=== PATIENT | female | born 1935 | race Caucasian/White ===

== ENCOUNTER → 2016-12-20 | Outpatient (CLI) | payer MEDICARE ==
[~2016-12-20] VITALS: Ht 167.6 cm; Wt 63.5 kg
[~2016-12-20] MED LIST: AC325T PO; ACET-461 PO; ALBU0.8322 IH; ALBU2.5V52 INH; ALBU8.5H2 IH; ASP325T PO; ASP81TEC; ASP81TEC PO; ASPI-875 PO; AZTH250C PO; BENZ-13 PO; BENZ-23 PO; CARV12.53 PO; CARV25TA PO; CARV3.12 PO; CARV3.122; CARV6.252 PO; CATHETER FLUSH 10 ML SYR IV PRN; CEFD300C3 PO; CEFE2FRO IV; CEFP250T2 PO; CHOL10003 PO; CIPR500T78 PO; COUMADIN PO; DGX.125T; DIGO125T; DIGO125T PO; DILT240C PO; DLT240CCR; DOXY100C2 PO; DULO30CA; ENAL2.5T; ENAL5TAB PO; ENLP2.5T PO; FRSM20T PO; FURO20TA4; FURO20TA4 PO; FURO40TA4 PO; GUAI600T43 PO; HYDR-707 PO; IPRA3AMP11 INH; IPRA3AMP19 IH; ISOS30TA3 PO; KCL10CCR; KCL10CCR PO; LEVO100T46; LEVO100T46 PO; LEVO100T7 PO; LEVO500T69 PO; LEVO750P3 IV; LORA10CA PO; LORA10TA7 PO; LOSA25TA21 PO; LOSA25TA5 PO; Levofloxacin PO; MECL-106 PO; MECL25TA56 PO; MULT-1029 PO; MULT1TAB63; MUPI22OI2 TOP; NF-MEXI150 PO; NITR0.4T SL; NITR0.4T12 SL; NTR.4SL SL; OMEG-12 PO; OMEP20CA12; OMEP20CA12 PO; OMEP20CA6 PO; OMG1KC; OMG1KC PO; POTA10CA43 PO; POTA10TA10 PO; POTA20TA15 PO; PRD10T PO; PRD20T PO; Prednisone PO; REGADENOSON 0.4 MG/5 ML SYR (LEXISCAN) IV ONE; RLX60T; ROPI0.5T2 PO; SPIR25TA3 PO; SPRN25T PO; TEMA15CA54 PO; TROS60CA; WARF2TAB8 PO; WARF4TAB; WARF4TAB PO; WRF2T; WRF2T PO; WRF3T; ZOLP10TA5 PO; ZOLP5TAB6 PO; ZOLP5TAB7 PO
[2016-12-20 09:22] VITALS: BP 129/68
--- NOTE | 2016-12-21 08:52 | STRESS TEST ---
DATE OF SERVICE: LEXISCAN MYOVIEW STRESS TEST REPORT REFERRING PHYSICIAN: Dr. Jake Prabhakar. TEST DATE: 12/20/2016. INDICATION: Coronary artery disease, hypertension. Baseline heart rate is 80. Baseline blood pressure is 129/68. Baseline EKG is ventricular paced rhythm. SUMMARY: In summary, the patient was injected with 10.09 mCi of Technetium 99 Myoview and the resting images were obtained, and the patient received 0.4 mg of Lexiscan, followed by 32.1 mCi of Technetium 99 Myoview. Throughout the test there were no EKG changes. The resting stress and stress images were reviewed and compared, and the short axis, horizontal long axis and vertical long axis views revealed that the images showed breast attenuation with mild decrease uptake at the basal to mid anterior lateral wall and inferolateral wall. No significant ischemia was noted. SSS is 0, TID value is 0.98. On the gated images the left ventricle appeared to be dilated with end-diastolic volume of 136 milliliter and systolic volume 80 milliliter. Diffuse left ventricular hypokinesia, more pronounced at the septum and inferior wall calculated ejection fraction 41%. CONCLUSION: 1. The patient tolerated the Lexiscan scan well. 2. Baseline paced rhythm persisted throughout the test. 3. No significant ischemia or infarction. 4. Dilated left ventricle with diffuse left ventricular hypokinesia and calculated ejection fraction of 41%. Job ID: [id number] DocumentID: [id number] Dictated Date: 12/20/2016 14:48:21 Health Analytics Consultant Date: 12/20/2016 15:20:16 Dictated By: PRANEETH SHUKLA MD
== END ==
LOC: CARD 07:47
PROVIDERS: ATTEND Internal Medicine Cardiovascular Disease
DX: I25.10 Atherosclerotic heart disease of native coronary artery without angina pectoris (principal); I10 Essential (primary) hypertension; E78.2 Mixed hyperlipidemia; I48.0 Paroxysmal atrial fibrillation; I71.4 Abdominal aortic aneurysm, without rupture
CPT/HCPCS: 78452; 93017

== ENCOUNTER → 2016-12-22 | Outpatient (CLI) | payer MEDICARE ==
[~2016-12-22] MED LIST changes: -CATHETER FLUSH 10 ML SYR IV PRN; -REGADENOSON 0.4 MG/5 ML SYR (LEXISCAN) IV ONE
--- NOTE | 2016-12-27 08:35 | ECHOCARDIOGRAPHY REPORT ---
DATE OF SERVICE: 12/22/2016 REFERRING PHYSICIAN: Dr. Prabhakar TEST DATE: 12/22/2016 MEASUREMENT: LVID end diastolic 4.8, IVS thickness 1.2, LVPW thickness 1.2, left atrial diameter 6.0, ejection fraction 30-35%. FINDINGS: 1. Technical quality is suboptimum. 2. The left ventricle is dilated with diffuse left ventricular hypokinesia. Estimated ejection fraction 30-35%. 3. The left atrium is dilated. No clots or thrombus were seen within the left atrium. 4. The right atrium and right ventricle are prominent, no clots or thrombus were seen within the right side. 5. Mitral valve evaluation showed heavy calcification across the mitral leaflet which were stricture of the motion of the anterior leaflet which has been present on the previous studies, valve area calculated to be 1.0 sq cm with peak gradient of 17 mmHg, mean gradient of 7 mmHg with severe mitral regurgitation and moderate to severe mitral valve stenosis. 6. Aortic valve evaluation showed prosthetic valve in the aortic position. Doppler echo as the prosthetic valve showed peak gradient of 12 mmHg, mean gradient of 7 mmHg with calculated valve area of 2.0 sq cm. The valve appeared to be functioning normally with mild perivalvular aortic regurgitation. 7. Tricuspid valve is normal in morphology with moderate tricuspid regurgitation noted by color Doppler flow, Doppler echo of the tricuspid valve. Estimated pulmonary artery pressure of 36 plus right atrial pressure. 8. Pulmonic valve is functioning normally. CONCLUSION: 1. Dilated left ventricle with diffuse left ventricular hypokinesia. Estimated ejection fraction 30-35%. 2. Severely dilated left atrium with prominent right heart chambers. 3. Moderate to severe mitral valvular stenosis, moderate to severe mitral regurgitation, moderate tricuspid regurgitation. 4. Prosthetic valve in aortic position appeared to be functioning normally. 5. Estimated pulmonary artery pressure of 45 mmHg. Job ID: [id number] DocumentID: [id number] Dictated Date: 12/26/2016 14:58:31 Client Relationship Consultant Date: 12/27/2016 06:57:44 Dictated By: PRANEETH SHUKLA MD
== END ==
LOC: CARD 11:55
PROVIDERS: ATTEND Internal Medicine Cardiovascular Disease
DX: I25.10 Atherosclerotic heart disease of native coronary artery without angina pectoris (principal); I10 Essential (primary) hypertension; E78.2 Mixed hyperlipidemia; I48.0 Paroxysmal atrial fibrillation; I71.4 Abdominal aortic aneurysm, without rupture
CPT/HCPCS: 93306

== ENCOUNTER → 2017-04-05 | Outpatient (CLI) | payer MEDICARE ==
--- NOTE | 2017-04-05 10:35 | Diagnostic Imaging Report ---
CLINICAL INDICATION: Patient with right renal cyst. EXAM: Bilateral renal ultrasound. COMPARISON: Bilateral renal ultrasound dated 03/28/2016 and 02/08/2015. FINDINGS: There is a roughly 16 mm cystic area within the right renal hilum region which may represent a mildly prominent renal pelvis. This was not seen on the most recent comparison renal ultrasound, but was seen on the other renal ultrasound dated 02/08/2015. There are no definite renal cyst seen. Otherwise, both kidneys are normal in size, shape, echogenicity and cortical thickness without hydronephrosis, stones, or other focal lesions with the right and left kidneys measuring 10.1 cm and 10.7 cm in their craniocaudal dimensions, respectively. The bladder is fluid distended with no gross abnormalities visualized. Bilateral ureteral jets are seen. There is a small amount of abdominal ascites again seen. The liver surface appears lobulated which may be related to cirrhosis. IMPRESSION: 1: Suspected mildly prominent right renal pelvis compared to the prior study. There is no hydronephrosis. There is no definite renal cyst seen on this exam. 2: Both kidneys are otherwise unremarkable. 3: Bladder is unremarkable as visualized. 4: Abdominal ascites. 5: Lobulated liver contour which may be related to ascites. Dictated by: Dictated on workstation # [id number]
== END ==
LOC: RAD 08:59
PROVIDERS: ATTEND Urology
DX: R18.8 Other ascites (principal); Q44.7 Other congenital malformations of liver
CPT/HCPCS: 76770

== ENCOUNTER → 2017-04-12 | Outpatient (CLI) | payer MEDICARE ==
[~2017-04-12] MED LIST changes: +ACET-168 PO; +AMOX500C2 PO; +CLOP75TA28 PO; +CLOP75TA69 PO; +METO-370 PO; +SACU1TAB PO; +SULF1TAB35 PO; +TRAM50TA2 PO; +WARF-47 PO
== END ==
LOC: WOUNDCARE 08:48
PROVIDERS: ATTEND Internal Medicine
DX: I87.331 Chronic venous hypertension (idiopathic) with ulcer and inflammation of right lower extremity (principal); I70.233 Atherosclerosis of native arteries of right leg with ulceration of ankle; I70.202 Unspecified atherosclerosis of native arteries of extremities, left leg; I50.22 Chronic systolic (congestive) heart failure
CPT/HCPCS: 99214

== ENCOUNTER → 2017-04-19 | Outpatient (CLI) | payer MEDICARE ==
[~2017-04-19] MED LIST changes: -ACET-168 PO; -AMOX500C2 PO; -CLOP75TA28 PO; -CLOP75TA69 PO; -METO-370 PO; -SACU1TAB PO; -SULF1TAB35 PO; -TRAM50TA2 PO; -WARF-47 PO
== END ==
LOC: WOUNDCARE 13:50
PROVIDERS: ATTEND Nurse Practitioner
DX: I87.331 Chronic venous hypertension (idiopathic) with ulcer and inflammation of right lower extremity (principal); L97.212 Non-pressure chronic ulcer of right calf with fat layer exposed; L97.312 Non-pressure chronic ulcer of right ankle with fat layer exposed; I70.233 Atherosclerosis of native arteries of right leg with ulceration of ankle; I70.202 Unspecified atherosclerosis of native arteries of extremities, left leg; I50.22 Chronic systolic (congestive) heart failure
CPT/HCPCS: 11042; 87070; 87075; 87205

== ENCOUNTER → 2017-04-24 | Outpatient (CLI) | payer MEDICARE ==
[~2017-04-24] MED LIST changes: +ACET-168 PO; +AMOX500C2 PO; +CLOP75TA28 PO; +CLOP75TA69 PO; +METO-370 PO; +PANT40TA3 PO; +POTA10CA68 PO; +SACU1TAB PO; +SULF1TAB35 PO; +TRAM50TA2 PO; +WARF-47 PO
== END ==
LOC: WOUNDCARE 09:48
PROVIDERS: ATTEND Nurse Practitioner
DX: L97.212 Non-pressure chronic ulcer of right calf with fat layer exposed (principal); L97.312 Non-pressure chronic ulcer of right ankle with fat layer exposed; I50.22 Chronic systolic (congestive) heart failure; I70.202 Unspecified atherosclerosis of native arteries of extremities, left leg; I70.233 Atherosclerosis of native arteries of right leg with ulceration of ankle; I87.331 Chronic venous hypertension (idiopathic) with ulcer and inflammation of right lower extremity
CPT/HCPCS: 11042

== ENCOUNTER → 2017-05-03 | Outpatient (CLI) | payer MEDICARE ==
[~2017-05-03] MED LIST changes: -ACET-168 PO; -AMOX500C2 PO; -CLOP75TA28 PO; -CLOP75TA69 PO; -METO-370 PO; -PANT40TA3 PO; -POTA10CA68 PO; -SACU1TAB PO; -SULF1TAB35 PO; -TRAM50TA2 PO; -WARF-47 PO
== END ==
LOC: WOUNDCARE 10:10
PROVIDERS: ATTEND Internal Medicine
DX: L97.212 Non-pressure chronic ulcer of right calf with fat layer exposed (principal); L97.312 Non-pressure chronic ulcer of right ankle with fat layer exposed; I50.22 Chronic systolic (congestive) heart failure; I70.202 Unspecified atherosclerosis of native arteries of extremities, left leg; I70.233 Atherosclerosis of native arteries of right leg with ulceration of ankle; I87.331 Chronic venous hypertension (idiopathic) with ulcer and inflammation of right lower extremity
CPT/HCPCS: 11042

== ENCOUNTER → 2017-05-10 | Outpatient (CLI) | payer MEDICARE ==
[2017-05-10 13:01] LABS: BASOPHILS % (AUTO) 1 % (0-10); EOSINOPHILS # (AUTO) 0.2 10^3/uL (0.0-0.3); EOSINOPHILS % (AUTO) 4 % (0-10); LYMPHOCYTES # (AUTO) 1.3 X 10^3 (1.0-4.0); LYMPHOCYTES % (AUTO) 23 % (12-44); MEAN CORPUSCULAR HEMOGLOBIN 29 PG (25-34); MEAN CORPUSCULAR HGB CONC 30 G/DL (32-36); MEAN CORPUSCULAR VOLUME 96 FL (80-99); MEAN PLATELET VOLUME 10.2 FL (7.4-10.4); MONOCYTES # (AUTO) 0.5 X 10^3 (0.0-1.0); MONOCYTES % (AUTO) 8 % (0-12); NEUTROPHILS # (AUTO) 3.5 X 10^3 (1.8-7.8); NEUTROPHILS % (AUTO) 64 % (42-75); PLATELET COUNT 178 10^3/uL (130-400); RED BLOOD COUNT 3.53 10^6/uL (4.35-5.85); RED CELL DISTRIBUTION WIDTH 15.9 % (10.0-14.5); WHITE BLOOD COUNT 5.5 10^3/uL (4.3-11.0)
--- NOTE | 2017-05-10 13:06 | Diagnostic Imaging Report ---
INDICATION: Ulcerative sore on medial ankle. TECHNIQUE: Three views of the right ankle were obtained. FINDINGS: The alignment is normal. The plafonds and talar dome are intact. The ankle mortise is symmetric. There is no fracture or dislocation. There is no radiographic evidence of osteomyelitis. The soft tissues are grossly unremarkable. IMPRESSION: Osteopenia and mild degenerative change without radiographic evidence of osteomyelitis. If there is any clinical concern for osteomyelitis, further evaluation with a gadolinium enhanced MRI should be considered. Dictated by: Dictated on workstation # [id number]
[2017-05-10 13:34] LABS: ERYTHROCYTE SEDIMENTATION RATE 18 MM/HR (0-30)
== END ==
LOC: WOUNDCARE 10:58
PROVIDERS: ATTEND Internal Medicine
DX: L97.212 Non-pressure chronic ulcer of right calf with fat layer exposed (principal); I87.331 Chronic venous hypertension (idiopathic) with ulcer and inflammation of right lower extremity; I70.233 Atherosclerosis of native arteries of right leg with ulceration of ankle; I70.202 Unspecified atherosclerosis of native arteries of extremities, left leg; I50.22 Chronic systolic (congestive) heart failure; L97.312 Non-pressure chronic ulcer of right ankle with fat layer exposed
CPT/HCPCS: 11042; 36415; 73610; 85025; 85652; 87070; 87075; 87077; 87101; 87205

== ENCOUNTER → 2017-05-17 | Outpatient (CLI) | payer MEDICARE | LOC: WOUNDCARE 08:16 | PROVIDERS: ATTEND Internal Medicine | DX: L97.212 Non-pressure chronic ulcer of right calf with fat layer exposed (principal); L97.312 Non-pressure chronic ulcer of right ankle with fat layer exposed; I50.22 Chronic systolic (congestive) heart failure; I70.202 Unspecified atherosclerosis of native arteries of extremities, left leg; I70.233 Atherosclerosis of native arteries of right leg with ulceration of ankle; I87.331 Chronic venous hypertension (idiopathic) with ulcer and inflammation of right lower extremity | CPT/HCPCS: 11042 ==

== ENCOUNTER → 2017-05-24 | Outpatient (CLI) | payer MEDICARE ==
[~2017-05-24] MED LIST changes: +ACET-168 PO; +AMOX500C2 PO; +CLOP75TA28 PO; +CLOP75TA69 PO; +METO-370 PO; +PANT40TA3 PO; +POTA10CA68 PO; +SACU1TAB PO; +SULF1TAB35 PO; +TRAM50TA2 PO; +WARF-47 PO
== END ==
LOC: WOUNDCARE 08:25
PROVIDERS: ATTEND Internal Medicine
DX: L97.212 Non-pressure chronic ulcer of right calf with fat layer exposed (principal); L97.312 Non-pressure chronic ulcer of right ankle with fat layer exposed; I87.331 Chronic venous hypertension (idiopathic) with ulcer and inflammation of right lower extremity; I70.233 Atherosclerosis of native arteries of right leg with ulceration of ankle; I70.202 Unspecified atherosclerosis of native arteries of extremities, left leg; I50.22 Chronic systolic (congestive) heart failure
CPT/HCPCS: 11042

== ENCOUNTER 2017-05-31 13:05 | Day surgery (SDC) | payer MEDICARE ==
[~2017-05-31] VITALS: Ht 165.1 cm; Wt 63.5 kg
[2017-05-31] VITALS (28 sets, daily range): BP systolic 87–131; BP diastolic 48–77
[~2017-05-31 13:05] MED LIST changes: -ACET-168 PO; -AMOX500C2 PO; -CLOP75TA28 PO; -CLOP75TA69 PO; -METO-272 PO; -SACU1TAB PO; -SULF1TAB35 PO; -TRAM50TA2 PO; -WARF-47 PO
[2017-05-31] MEDS ORDERED: NS IV 1000 ML 1,000 ML ONE ×2 (13:07→15:28)
[2017-05-31] MEDS ORDERED: HEParin (CATH LAB) 2,000 ML IV ONE (13:07)
[2017-05-31] MEDS: NS IV 1000 ML 1,000 ML IV SCH ×4 (13:35→23:30)
[2017-05-31 13:40] LABS: MEAN PLATELET VOLUME 10.7 FL (7.4-10.4); RED BLOOD COUNT 3.66 10^6/uL (4.35-5.85); RED CELL DISTRIBUTION WIDTH 17.1 % (10.0-14.5); WHITE BLOOD COUNT 6.7 10^3/uL (4.3-11.0)
[2017-05-31 13:43] LABS: BILIRUBIN,URINE NEGATIVE (NEGATIVE); KETONES,URINE NEGATIVE (NEGATIVE); LEUKOCYTE ESTERASE ,URINE 1+ (NEGATIVE); NITRITE,URINE NEGATIVE (NEGATIVE); PH,URINE 6.5 (5-9); PROTEIN,URINE 1+ (NEGATIVE); UROBILINOGEN,URINE NORMAL (NORMAL)
[2017-05-31 13:52] LABS: INR 1.7 (0.8-1.4); PROTHROMBIN TIME PATIENT 20.1 SEC (12.2-14.7)
[2017-05-31 14:03] LABS: ALBUMIN 4.2 GM/DL (3.2-4.5); BILIRUBIN,TOTAL 0.9 MG/DL (0.1-1.0); CALCIUM 9.7 MG/DL (8.5-10.1); CREATININE SERUM 1.93 MG/DL (0.60-1.30); POTASSIUM 5.5 MMOL/L (3.6-5.0); TOTAL PROTEIN 8.5 GM/DL (6.4-8.2)
[2017-05-31] MEDS ORDERED: ACET-168 PO (14:15)
[2017-05-31] MEDS ORDERED: ROPI0.5T2 PO (14:15)
[2017-05-31] MEDS ORDERED: GUAI600T43 PO (14:15)
[2017-05-31] MEDS ORDERED: ISOS30TA3 PO (14:15)
[2017-05-31] MEDS ORDERED: METO-272 PO (14:15)
[2017-05-31] MEDS ORDERED: LORA10TA7 PO (14:15)
[2017-05-31] MEDS ORDERED: FURO40TA4 PO (14:15)
[2017-05-31] MEDS ORDERED: SACU1TAB PO (14:15)
[2017-05-31] MEDS ORDERED: WARF-47 PO (14:15)
[2017-05-31] MEDS ORDERED: AMOX500C2 PO (14:28)
[2017-05-31] MEDS ORDERED: TRAM50TA2 PO (14:28)
[2017-05-31] MEDS ORDERED: SULF1TAB35 PO (14:28)
[2017-05-31 14:36] LABS: SQUAMOUS EPITHELIAL CELL,UR 0-2 /HPF; WBC,URINE 0-2 /HPF
[2017-05-31] MEDS ORDERED: fentaNYL INJECTION 100 MCG/2 ML AMP ONE ×2 (14:57→20:17)
[2017-05-31] MEDS ORDERED: MIDAZOLAM 5 MG/5 ML (VERSED) VIAL ONE (14:58)
[2017-05-31] MEDS ORDERED: HEParin 1000 UNIT/ML (10ML VIAL) FOR BOLUS ONE (14:58)
[2017-05-31] MEDS ORDERED: NITROGLYCERIN DRIP 25 MG/D5W 250 ML IV ONE (14:58)
[2017-05-31] MEDS ORDERED: ASPIRIN 325 MG (5 GR) TABLET ONE (16:26)
[2017-05-31] MEDS ORDERED: CLOPIDOGREL 300 MG (PLAVIX) TABLET PO ONE (16:26)
[2017-05-31] MEDS ORDERED: PATIENT MAY USE OWN MEDS, ALL PO SCH (16:45)
[2017-05-31] MEDS ORDERED: MECLIZINE 25 MG (ANTIVERT) TAB PO PRN (16:45)
[2017-05-31] MEDS ORDERED: ACETAMINOPHEN 500 MG TAB (TYLENOL) PO PRN (16:45)
[2017-05-31] MEDS ORDERED: guaiFENesin (MUCINEX) 600 MG TAB PO PRN (16:45)
[2017-05-31] MEDS ORDERED: warFARin 2 MG (COUMADIN) TAB PO SCH (18:30)
[2017-05-31] MEDS ORDERED: FUROSEMIDE 40 MG (LASIX) TAB PO SCH (18:30)
[2017-05-31] MEDS ORDERED: ATROPINE INJECTION 1 MG/10 ML SYR (ABBOTT) ONE (20:10)
[2017-05-31] MEDS ORDERED: fentaNYL INJECTION 100 MCG/2 ML AMP IVP PRN (20:30)
[2017-05-31] MEDS ORDERED: ROPINIROLE 0.5 MG PO SCH (21:00)
[2017-05-31] MEDS ORDERED: NON-FORMULARY MEDICATION 1 EA EA (Ropinirole HCl 0.5 MG) PO SCH (21:00)
[2017-05-31] MEDS ORDERED: KLOR CON 10 MEQ PO SCH (21:00)
[2017-05-31] MEDS ORDERED: CLOP75TA28 PO (22:03)
[2017-05-31] MEDS: MEXILETINE 150 MG CAPSULE PO SCH (22:31)
[2017-05-31] MEDS: FUROSEMIDE 40 MG (LASIX) TAB PO SCH (22:32)
[2017-05-31] MEDS: AMOXICILLIN 500 MG (POLYMOX) CAP PO SCH (22:33)
[2017-05-31] MEDS: SACUBITRIL/VALSARTAN 24/26 MG (ENTRESTO) TABLET PO SCH (22:34)
[2017-06-01] VITALS (7 sets, daily range): BP systolic 96–104; BP diastolic 50–61
[2017-06-01 03:42] LABS: MEAN PLATELET VOLUME 10.2 FL (7.4-10.4); RED BLOOD COUNT 3.01 10^6/uL (4.35-5.85)
[2017-06-01 04:04] LABS: CALCIUM 8.5 MG/DL (8.5-10.1); CREATININE SERUM 1.35 MG/DL (0.60-1.30); POTASSIUM 4.7 MMOL/L (3.6-5.0)
[2017-06-01] MEDS: FUROSEMIDE 40 MG (LASIX) TAB PO SCH (06:24)
[2017-06-01] MEDS ORDERED: LEVOTHYROXINE 100 MCG (LEVOTHROID) TAB PO SCH (06:30)
[2017-06-01] MEDS ORDERED: TRIM/SULFAMETH 160/800 (SEPTRA DS) TAB PO SCH (07:00)
[2017-06-01] MEDS ORDERED: OMEPRAZOLE 20 MG (PriLOSEC) CAP NON-FORMULARY PO SCH (07:00)
[2017-06-01] MEDS ORDERED: FUROSEMIDE 40 MG/4 ML INJ (LASIX) IVP NR (07:45)
[2017-06-01] MEDS ORDERED: POTA10CA43 PO (07:47)
[2017-06-01] MEDS ORDERED: CLOP75TA69 PO (07:47)
[2017-06-01] MEDS: MEXILETINE 150 MG CAPSULE PO SCH (08:18)
[2017-06-01] MEDS: SACUBITRIL/VALSARTAN 24/26 MG (ENTRESTO) TABLET PO SCH (08:20)
[2017-06-01] MEDS: AMOXICILLIN 500 MG (POLYMOX) CAP PO SCH (08:22)
[2017-06-01] MEDS ORDERED: DIGOXIN 0.125 MG (LANOXIN) TAB PO SCH (09:00)
[2017-06-01] MEDS ORDERED: ASPIRIN E.C. 81 MG (ECOTRIN) TAB PO SCH (09:00)
[2017-06-01] MEDS ORDERED: LORATADINE (CLARITIN) 10 MG TAB PO SCH (09:00)
[2017-06-01] MEDS ORDERED: ISOSORBIDE MONONITRATE 30 MG (IMDUR) TAB PO SCH (09:00)
[2017-06-01] MEDS ORDERED: SPIRONOLACTONE 25 MG (ALDACTONE) TAB PO SCH (09:00)
[2017-06-01] MEDS ORDERED: meTOproloL SUCCINATE 50 MG (TOPROL XL) TAB PO SCH (09:00)
[2017-06-01] MEDS ORDERED: CLOPIDOGREL 75 MG (PLAVIX) TABLET PO SCH (09:00)
[2017-06-01] MEDS ORDERED: warFARin 2 MG (COUMADIN) TAB PO SCH (18:00)
[2017-06-03] MEDS ORDERED: INFLUENZA TRIvalent 2017-2018 0.5 ML/45 MCG SYR IM ONE (07:00)
== END 2017-06-01 09:00 | disposition home or self-care (01) ==
LOC: CATH 13:05 → ICU 17:00 → CATH 06-01 09:00
PROVIDERS: ATTEND Internal Medicine Cardiovascular Disease
DX: I70.203 Unspecified atherosclerosis of native arteries of extremities, bilateral legs (principal); L97.519 Non-pressure chronic ulcer of other part of right foot with unspecified severity; I70.92 Chronic total occlusion of artery of the extremities; I25.10 Atherosclerotic heart disease of native coronary artery without angina pectoris; I50.22 Chronic systolic (congestive) heart failure; I25.5 Ischemic cardiomyopathy; I71.4 Abdominal aortic aneurysm, without rupture; I49.5 Sick sinus syndrome; I48.0 Paroxysmal atrial fibrillation; Z95.2 Presence of prosthetic heart valve; I05.0 Rheumatic mitral stenosis; E78.5 Hyperlipidemia, unspecified; Z79.899 Other long term (current) drug therapy; Z79.01 Long term (current) use of anticoagulants
CPT/HCPCS: 36247; 36415; 37228; 71010; 75625; 75716; 75774; 80048; 80053; 80061; 81000; 85027; 85347; 85610; 85730; 87081; 93005

== ENCOUNTER → 2017-05-31 | Outpatient (CLI) | payer MEDICARE ==
[~2017-05-31] MED LIST changes: +METO-272 PO; -METO-370 PO; -PANT40TA3 PO; -POTA10CA68 PO
== END ==
LOC: WOUNDCARE 08:19
PROVIDERS: ATTEND Internal Medicine
DX: I87.331 Chronic venous hypertension (idiopathic) with ulcer and inflammation of right lower extremity (principal); L97.212 Non-pressure chronic ulcer of right calf with fat layer exposed; I70.233 Atherosclerosis of native arteries of right leg with ulceration of ankle; L97.312 Non-pressure chronic ulcer of right ankle with fat layer exposed; I70.202 Unspecified atherosclerosis of native arteries of extremities, left leg; I50.22 Chronic systolic (congestive) heart failure
CPT/HCPCS: 11042

== ENCOUNTER → 2017-06-07 | Outpatient (CLI) | payer MEDICARE ==
[~2017-06-07] MED LIST changes: +ACET-168 PO; +AMOX500C2 PO; +CLOP75TA28 PO; +CLOP75TA69 PO; +METO-272 PO; +SACU1TAB PO; +SULF1TAB35 PO; +TRAM50TA2 PO; +WARF-47 PO
== END ==
LOC: WOUNDCARE 08:26
PROVIDERS: ATTEND Internal Medicine
DX: L97.212 Non-pressure chronic ulcer of right calf with fat layer exposed (principal); I87.331 Chronic venous hypertension (idiopathic) with ulcer and inflammation of right lower extremity; I70.233 Atherosclerosis of native arteries of right leg with ulceration of ankle; I70.202 Unspecified atherosclerosis of native arteries of extremities, left leg; I50.22 Chronic systolic (congestive) heart failure; L97.312 Non-pressure chronic ulcer of right ankle with fat layer exposed
CPT/HCPCS: 11042

== ENCOUNTER → 2017-06-14 | Outpatient (CLI) | payer MEDICARE | LOC: WOUNDCARE 08:30 | PROVIDERS: ATTEND Internal Medicine | DX: L97.212 Non-pressure chronic ulcer of right calf with fat layer exposed (principal); I87.331 Chronic venous hypertension (idiopathic) with ulcer and inflammation of right lower extremity; I70.233 Atherosclerosis of native arteries of right leg with ulceration of ankle; I70.202 Unspecified atherosclerosis of native arteries of extremities, left leg; I50.22 Chronic systolic (congestive) heart failure; L97.312 Non-pressure chronic ulcer of right ankle with fat layer exposed | CPT/HCPCS: 11042 ==

== ENCOUNTER → 2017-06-21 | Outpatient (CLI) | payer MEDICARE | LOC: WOUNDCARE 08:30 | PROVIDERS: ATTEND Internal Medicine | DX: L97.212 Non-pressure chronic ulcer of right calf with fat layer exposed (principal); I87.331 Chronic venous hypertension (idiopathic) with ulcer and inflammation of right lower extremity; I70.233 Atherosclerosis of native arteries of right leg with ulceration of ankle; I70.202 Unspecified atherosclerosis of native arteries of extremities, left leg; I50.22 Chronic systolic (congestive) heart failure; L97.312 Non-pressure chronic ulcer of right ankle with fat layer exposed | CPT/HCPCS: 11042 ==

== ENCOUNTER → 2017-06-28 | Outpatient (CLI) | payer MEDICARE | LOC: WOUNDCARE 08:09 | PROVIDERS: ATTEND Internal Medicine | DX: L97.212 Non-pressure chronic ulcer of right calf with fat layer exposed (principal); L97.312 Non-pressure chronic ulcer of right ankle with fat layer exposed; I87.331 Chronic venous hypertension (idiopathic) with ulcer and inflammation of right lower extremity; I70.233 Atherosclerosis of native arteries of right leg with ulceration of ankle; I70.202 Unspecified atherosclerosis of native arteries of extremities, left leg; I50.22 Chronic systolic (congestive) heart failure | CPT/HCPCS: 11042 ==

== ENCOUNTER → 2017-07-05 | Outpatient (CLI) | payer MEDICARE | LOC: WOUNDCARE 08:26 | PROVIDERS: ATTEND Internal Medicine | DX: L97.212 Non-pressure chronic ulcer of right calf with fat layer exposed (principal); L97.312 Non-pressure chronic ulcer of right ankle with fat layer exposed; I87.331 Chronic venous hypertension (idiopathic) with ulcer and inflammation of right lower extremity; I70.233 Atherosclerosis of native arteries of right leg with ulceration of ankle; I70.202 Unspecified atherosclerosis of native arteries of extremities, left leg; I50.22 Chronic systolic (congestive) heart failure | CPT/HCPCS: 11042; 87070; 87075; 87101; 87205 ==

== ENCOUNTER → 2017-07-19 | Outpatient (CLI) | payer MEDICARE ==
[~2017-07-19] MED LIST changes: -METO-272 PO; +METO-370 PO
== END ==
LOC: WOUNDCARE 08:27
PROVIDERS: ATTEND Internal Medicine
DX: L97.212 Non-pressure chronic ulcer of right calf with fat layer exposed (principal); L97.312 Non-pressure chronic ulcer of right ankle with fat layer exposed; I50.22 Chronic systolic (congestive) heart failure; I70.202 Unspecified atherosclerosis of native arteries of extremities, left leg; I70.233 Atherosclerosis of native arteries of right leg with ulceration of ankle; I87.331 Chronic venous hypertension (idiopathic) with ulcer and inflammation of right lower extremity
CPT/HCPCS: 11042; 15271

== ENCOUNTER → 2017-07-25 | Outpatient (CLI) | payer MEDICARE | LOC: WOUNDCARE 08:47 | PROVIDERS: ATTEND Surgery | DX: I87.331 Chronic venous hypertension (idiopathic) with ulcer and inflammation of right lower extremity (principal); I70.233 Atherosclerosis of native arteries of right leg with ulceration of ankle; I70.202 Unspecified atherosclerosis of native arteries of extremities, left leg; L97.212 Non-pressure chronic ulcer of right calf with fat layer exposed; L97.312 Non-pressure chronic ulcer of right ankle with fat layer exposed; I50.22 Chronic systolic (congestive) heart failure | CPT/HCPCS: 15271 ==

== ENCOUNTER → 2017-07-25 | Outpatient (CLI) | payer MEDICARE ==
[2017-07-25 10:26] LABS: BASOPHILS # (AUTO) 0.1 10^3/uL (0.0-0.1); BASOPHILS % (AUTO) 2 % (0-10); EOSINOPHILS # (AUTO) 0.2 10^3/uL (0.0-0.3); EOSINOPHILS % (AUTO) 3 % (0-10); LYMPHOCYTES # (AUTO) 1.1 X 10^3 (1.0-4.0); LYMPHOCYTES % (AUTO) 24 % (12-44); MEAN CORPUSCULAR HEMOGLOBIN 31 PG (25-34); MEAN CORPUSCULAR HGB CONC 31 G/DL (32-36); MEAN CORPUSCULAR VOLUME 101 FL (80-99); MONOCYTES # (AUTO) 0.3 X 10^3 (0.0-1.0); MONOCYTES % (AUTO) 6 % (0-12); NEUTROPHILS # (AUTO) 3.1 X 10^3 (1.8-7.8); NEUTROPHILS % (AUTO) 66 % (42-75); PLATELET COUNT 144 10^3/uL (130-400); RED BLOOD COUNT 3.12 10^6/uL (4.35-5.85); RED CELL DISTRIBUTION WIDTH 15.5 % (10.0-14.5); WHITE BLOOD COUNT 4.7 10^3/uL (4.3-11.0)
== END ==
LOC: LAB 10:11
PROVIDERS: ATTEND Surgery
DX: I87.331 Chronic venous hypertension (idiopathic) with ulcer and inflammation of right lower extremity (principal); I70.233 Atherosclerosis of native arteries of right leg with ulceration of ankle; I70.202 Unspecified atherosclerosis of native arteries of extremities, left leg; I50.22 Chronic systolic (congestive) heart failure; L97.212 Non-pressure chronic ulcer of right calf with fat layer exposed; L97.312 Non-pressure chronic ulcer of right ankle with fat layer exposed
CPT/HCPCS: 36415; 85025

== ENCOUNTER → 2017-08-02 | Outpatient (CLI) | payer MEDICARE ==
[~2017-08-02] MED LIST changes: +PANT40TA3 PO; +POTA10CA68 PO
== END ==
LOC: WOUNDCARE 08:24
PROVIDERS: ATTEND Internal Medicine
DX: I87.331 Chronic venous hypertension (idiopathic) with ulcer and inflammation of right lower extremity (principal); I70.233 Atherosclerosis of native arteries of right leg with ulceration of ankle; I70.202 Unspecified atherosclerosis of native arteries of extremities, left leg; I50.22 Chronic systolic (congestive) heart failure; L97.212 Non-pressure chronic ulcer of right calf with fat layer exposed; L97.312 Non-pressure chronic ulcer of right ankle with fat layer exposed
CPT/HCPCS: 15271

== ENCOUNTER 2017-08-03 09:30 | Inpatient (IN) | payer MEDICARE ==
[~2017-08-03] VITALS: Ht 167.6 cm; Wt 62.1 kg
[~2017-08-03 09:30] MED LIST changes: -PANT40TA3 PO; -POTA10CA68 PO
--- OUTSIDE RECORDS SUMMARY | 2017-08-03 09:35 | XMS REPORT | Clinical Summary ---
Author Author [facility] Organization [facility] Address Unknown Phone Unavailable Care Team Providers Care Stogy Maker Name Role Phone PCP Unavailable Source Comments Some departments are not documenting in the electronic medical record. If you do not see the information that you expected, contact Release of Information in the Health Information Management department at [phone] for further assistance in locating additional records.[facility] Allergies No Known Allergies Current Medications Prescription Sig. Disp. Refills Start End Date Status Date spironolactone Take 25 mg by mouth Active (ALDACTONE) 25 mg tablet daily. omeprazole DR(+) Take 20 mg by mouth Active (PRILOSEC) 20 mg capsule daily. levothyroxine (SYNTHROID) Take 100 mcg by mouth Active 100 mcg tablet daily. warfarin (COUMADIN) 2 mg Take 4 mg by mouth daily. Active tablet Or as directed per your physician meclizine (ANTIVERT) 25 Take 25 mg by mouth every Active mg tablet 8 hours as needed. For vertigo nitroglycerin (NITROSTAT) Place 0.4 mg under tongue Active 0.4 mg tablet every 5 minutes as needed. digoxin (LANOXIN) 125 mcg Take 1 Tab by mouth 30 Tab 11 11/06/19 Active tabletIndications: daily. 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 loratadine (CLARITIN) 10 Take 10 mg by mouth Active mg tablet daily. losartan (COZAAR) 25 mg Take 25 mg by mouth Active tablet daily. potassium chloride SR Take 1 Tab by mouth twice 90 Cap 0 09/29/19 Active (K-DUR) 10 mEq tablet daily. 15 furosemide (LASIX) 20 mg Take 1 Tab by mouth twice 90 Tab 0 09/29/19 Active tablet daily. 15 mexiletine (MEXITIL) 150 TAKE 1 CAPSULE BY MOUTH 60 Cap 1 07/28/20 Active mg capsule TWICE DAILY. 15 isosorbide mononitrate SR Take 15 mg by mouth every Active (IMDUR) 30 mg tablet morning. Active Problems Problem Noted Date ERRONEOUS ENCOUNTER--DISREGARD 09/01/2015 PVC's (premature ventricular contractions) 12/15/2013 Overview: 12/15/2013 - PVC burden approx 8%. Started on mexiletine 150 mg twice daily. Last Assessment & Plan: She is not optimally Bi-V pacing due to frequent PVCs (approximately 8%). This could be contributing to her worsening symptoms. She was started on mexiletine 150 mg twice daily to see if this helps improve her symptoms. Mitral valve regurgitation 12/15/2013 Overview: 11/17/13 - flow velocity across the mitral valve is 2.25 m/sec the mean gradient 6.7 mmHg. Calculated valve area is 1.3 sq cm 01/27/14 Echo: EF 40%. Moderately dilated LV. Severely dilated LA and moderately dilated RA. Normally functioning mechanical AV prosthesis, Mild AI. Moderate to severe mitral regurgitation. Mild mitral stenosis. Severe tricuspid regurgitation. PAP=65 mmHg. Last Assessment & Plan: Given that she has been feeling better off lasix and has not needed it, unlikely that her valve is significantly worse than a year ago and the cause of her worsening symptoms of shortness of breath with activity. However, we have asked her to follow up in the [facility] for further evaluation in approximately a month. We would like to see if she has symptom improvement with suppression of her PVCs and increased bi-v pacing. 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 Severe MR & TR PAP 55 (42 a year earlier, EF 35, MR and TR mod-severe). AVR "OK" Chronic systolic CHF (congestive heart failure), NYHA class 3 ([facility]) 2011 Last Assessment & Plan: Echo in November demonstrated EF of 40-45% which has improved from prior to her device upgrade when her EF was 30%. On exam, fluid status appears stable and she denies any new or worsening symptoms suggestive of volume overload. Heart failure medications were reviewed. She is on good medical therapy. 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 Overall well rate controlled. Biventricular ICD (implantable cardioverter-defibrillator) in place 2011 Overview: MDT DC PPM- L side 200408/07/12 [employer]-D upgrade implant + DFTs with Dr. Ceja. L ast Assessment & Plan: Device was checked today and demonstrated normal function. See device check and cardiovascular studies for further details. 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 Pulse 87 09/29/2014 11:26 AM TRUCK ENGINE TECHNICIAN Temperature 36.6 C (97.9 F) 08/09/2012 11:25 AM TRUCK ENGINE TECHNICIAN Respiratory Rate - - Oxygen Saturation 93% 09/29/2014 11:26 AM TRUCK ENGINE TECHNICIAN Inhaled Oxygen - - Concentration Weight 58.1 kg (128 lb) 08/31/2015 12:58 PM TRUCK ENGINE TECHNICIAN Height 167.6 cm (5' 6") 08/31/2015 12:58 PM TRUCK ENGINE TECHNICIAN Body Mass Index 20.66 08/31/2015 12:58 PM TRUCK ENGINE TECHNICIAN Plan of Treatment Health Maintenance Due Date Last Done Comments PHYSICAL (COMPREHENSIVE) 1944 EXAM PERTUSSIS VACCINE 1948 TETANUS VACCINE 1954 SHINGLES VACCINE 1997 OSTEOPOROSIS SCREENING 2002 PREVNAR/PNEUMOVAX (#1) 2002 INFLUENZA VACCINE 04/03/2017 Results Not on filefrom Last 3 Months
[2017-08-03 10:01] LABS: BASOPHILS % (AUTO) 0 % (0-10); EOSINOPHILS # (AUTO) 0.2 10^3/uL (0.0-0.3); EOSINOPHILS % (AUTO) 2 % (0-10); LYMPHOCYTES # (AUTO) 1.1 X 10^3 (1.0-4.0); LYMPHOCYTES % (AUTO) 15 % (12-44); MEAN CORPUSCULAR HEMOGLOBIN 31 PG (25-34); MEAN CORPUSCULAR HGB CONC 31 G/DL (32-36); MEAN CORPUSCULAR VOLUME 101 FL (80-99); MEAN PLATELET VOLUME 11.5 FL (7.4-10.4); MONOCYTES # (AUTO) 1.2 X 10^3 (0.0-1.0); MONOCYTES % (AUTO) 16 % (0-12); NEUTROPHILS % (AUTO) 67 % (42-75); PLATELET COUNT 84 10^3/uL (130-400); RED BLOOD COUNT 2.77 10^6/uL (4.35-5.85); RED CELL DISTRIBUTION WIDTH 14.8 % (10.0-14.5); WHITE BLOOD COUNT 7.4 10^3/uL (4.3-11.0)
[2017-08-03 10:11] LABS: INR 2.2 (0.8-1.4); PROTHROMBIN TIME PATIENT 24.6 SEC (12.2-14.7)
--- NOTE | 2017-08-03 10:17 | ED General ---
General Chief Complaint: Respiratory Problems Stated Complaint: SOB-SENT BY DR PARKER Nursing Triage Note: AMB TO ED WITH 02 ON PATIENT REPORTS FOR BEING COLD FOR LAST 2 DAYS AND SOA WHEN WALKING Nursing Sepsis Screen: No Definite Risk Source of Information: Patient Exam Limitations: No Limitations History of Present Illness Time Seen by Provider: 09:40 Initial Comments Here with report of fatigue and feeling cold for the last 2 days. Also reports shortness of air with activity. Does have history of significant cardiac disease including aortic valve replacement and heart failure. She was seen at her heart doctors office this morning. She has not had weight gain or other symptoms to suggest heart failure currently. She did have pneumonia 2 weeks ago that was treated as outpatient. She thought that she was doing a little better but now is having more shortness of breath. Does report runny nose and mild cough but not sore throat or documented fevers. Timing/Duration: 1-2 Days, Getting Worse Severity: Moderate Associated Systoms: Cough, No Headaches, Malaise, No Nausea/Vomiting, Shortness of Air, Weakness Allergies and Home Medications Allergies Coded Allergies: NKANo Known Allergies (Verified Allergy, Unknown, 11/14/05) Home Medications Acetaminophen 500 Mg Tablet, 500-1,000 MG PO Q4H PRN for PAIN-MILD, (Reported) Clopidogrel Bisulfate 75 Mg Tablet, 75 MG PO DAILY, #30 Ref 3 Prescribed by: PRANEETH PARKER on 05/31/17 2205 Clopidogrel Bisulfate 75 Mg Tablet, 75 MG PO DAILY, #30 Ref 3 Prescribed by: PRANEETH PARKER on 06/01/17 0747 Digoxin 125 Mcg Tablet, 125 MCG PO DAILY, (Reported) Furosemide 40 Mg Tablet, 40 MG PO BID, (Reported) Guaifenesin 600 Mg Tab.er.12h, 600 MG PO BID PRN for CONGESTION, (Reported) Isosorbide Mononitrate 30 Mg Tab.er.24h, 15 MG PO DAILY, (Reported) TAKES 1/2 (30MG) TABLET Levothyroxine Sodium 100 Mcg Tablet, 100 MCG PO DAILY, (Reported) Loratadine 10 Mg Tablet, 10 MG PO DAILY, (Reported) Meclizine HCl 25 Mg Tablet, 25 MG PO TID PRN for DIZZINESS, (Reported) Metoprolol Succinate 50 Mg Tab.er.24h, 50 MG PO DAILY, (Reported) Mexiletine HCl 150 Mg Cap, 150 MG PO BID, (Reported) Nitroglycerin 0.4 Mg Tab.subl, 0.4 MG SL UD PRN for CHEST PAIN, (Reported) Omeprazole 20 Mg Capsule.dr, 20 MG PO DAILY, (Reported) Potassium Chloride 10 Meq Capsule.er, 10 MEQ PO DAILY, #30 Ref 4 Prescribed by: PRANEETH PARKER on 06/01/17 0747 Ropinirole HCl 0.5 Mg Tablet, 0.5 MG PO HS, (Reported) Ropinirole HCl 0.5 Mg Tablet, 0.5 MG PO DAILY PRN for RESTLESS LEGS, (Reported) Sacubitril/Valsartan 1 Each Tablet, 1 TAB PO BID, (Reported) Tramadol HCl 50 Mg Tablet, 50 MG PO Q6H PRN for PAIN-MODERATE, (Reported) Warfarin Sodium 2 Mg Tablet, 2 MG PO SuMoWeFrSa, (Reported) Warfarin Sodium 2 Mg Tablet, 4 MG PO TuTh, (Reported) TAKES 2 (2MG) TABLETS Constitutional: see HPI, chills, No fever, malaise, weakness EENTM: nose congestion, No throat pain Respiratory: cough, dyspnea on exertion, short of breath, No wheezing Cardiovascular: chest pain (control central discomfort or tightness that is nonradiating.), No edema Gastrointestinal: No abdominal pain, No nausea, No vomiting Genitourinary: no symptoms reported Musculoskeletal: no symptoms reported Skin: no symptoms reported Psychiatric/Neurological: No Symptoms Reported All Other Systems Reviewed Negative Unless Noted: Yes Past Fltznhj-Zschvo-Eutjed Hx Patient Social History Alcohol Use: Denies Use Recreational Drug Use: No Smoking Status: Never a Smoker Recent Foreign Travel: No Contact w/Someone Who Travel: No Recent Infectious Disease Expo: No Recent Hopitalizations: Yes Immunizations Up To Date Tetanus Booster (TDap): Unknown PED Vaccines UTD: No Date of Pneumonia Vaccine: May 31, 2015 Date of Influenza Vaccine: May 04, 2015 Seasonal Allergies Seasonal Allergies: No Surgeries History of Surgeries: No Surgeries: Defibrillator, Gallbladder, Pacemaker Respiratory History of Respiratory Disorde: No Respiratory Disorders: Pneumonia Cardiovascular History of Cardiac Disorders: Yes (MITRAL VALVE STENOSIS, AORTIC VALVE REPLACEMENT 99') Cardiac Disorders: Valvular Heart Disease Neurological History of Neurological Disord: Yes Reproductive System Hx Reproductive Disorders: No Sexually Transmitted Disease: No HIV/AIDS: No Gastrointestinal History of Gastrointestinal Di: No Gastrointestinal Disorders: Gall Bladder Disease Musculoskeletal History of Musculoskeletal Dis: Yes (OSTEOARTHRITIS) Endocrine History of Endocrine Disorders: Yes Endocrine Disorders: Hypothyroidsim HEENT HEENT Disorders: Cataract Loss of Vision: Denies Hearing Impairment: Denies Cancer History of Cancer: No Psychosocial History of Psychiatric Problem: No Integumentary History of Skin or Integumenta: Yes (RIGHT LEG PAIGE ULCER) Blood Transfusions History of Blood Disorders: No Adverse Reaction to a Blood Tr: No Reviewed Nursing Assessment Reviewed/Agree w Nursing PMH: Yes Family Medical History Significant Family History: No Pertinent Family Hx Family Medial History: Family history: Diabetes mellitus 19 MOTHER Heart disease 19 MOTHER History of - respiratory disease 19 FATHER (PNEUMONIA- IN HIS 20'S) Myocardial infarction 19 MOTHER Physical Exam-Suspected Sepsis Physical Exam Vital Signs Vital Sign - Last 12Hours 08/03/17 09:30 Temp 98.7 Pulse 85 Resp 18 B/P (MAP) 122/67 (85) Pulse Ox 97 O2 Delivery Nasal Cannula O2 Flow Rate 2.00 Capillary Refill : Less Than 3 Seconds Blood Pressure Mean: 85 General Appearance: No Apparent Distress, WD/WN HEENT: PERRL/EOMI, Pharynx Normal Neck: Non Tender, Supple Respiratory: Lungs Clear, Normal Breath Sounds Cardiovascular: Regular Rate, Rhythm, Systolic Murmur Gastrointestinal: Non Tender, Soft Back: Normal Inspection, No CVA Tenderness, No Vertebral Tenderness Extremity: Normal Range of Motion, Non Tender, No Pedal Edema, Other (wound to the right foot that is reportedly feeling well. Covered with dressing.) Neurologic/Psychiatric: Alert, Oriented x3 Skin: normal color, warm/dry, No cyanosis, No rash Focused Exam Evaluation Lactate Level Laboratory Tests 08/03/17 09:50: Lactic Acid Level 1.44 Lactic Acid Level Laboratory Tests Test 08/03/17 09:50 Lactic Acid Level 1.44 MMOL/L (0.50-2.00) Progress/Results/Core Measures Suspected Sepsis Recent Fever Within 48 Hours: No Infection Criteria Present: None New/Unexplained Altered Menta: No Sepsis Screen: No Definite Risk Sepsis Diagnosis: SIRS Temperature:98.7 Pulse: 85 Respiratory Rate: 18 Laboratory Tests 08/03/17 09:50: White Blood Count 7.4 Blood Pressure 122 /67 Mean: 85 Laboratory Tests 08/03/17 09:50: Lactic Acid Level 1.44 Laboratory Tests 08/03/17 09:50: Creatinine 1.16, INR Comment 2.2H, Platelet Count 84L, Total Bilirubin 0.8 Results/Orders Lab Results Laboratory Tests Test 08/03/17 09:50 08/03/17 10:34 Range/Units White Blood Count 7.4 4.3-11.0 10^3/uL Red Blood Count 2.77 L 4.35-5.85 10^6/uL Hemoglobin 8.7 L 11.5-16.0 G/DL Hematocrit 28 L 35-52 % Mean Corpuscular Volume 101 H 80-99 FL Mean Corpuscular Hemoglobin 31 25-34 PG Mean Corpuscular Hemoglobin Concent 31 L 32-36 G/DL Red Cell Distribution Width 14.8 H 10.0-14.5 % Platelet Count 84 L 130-400 10^3/uL Mean Platelet Volume 11.5 H 7.4-10.4 FL Neutrophils (%) (Auto) 67 42-75 % Lymphocytes (%) (Auto) 15 12-44 % Monocytes (%) (Auto) 16 H 0-12 % Eosinophils (%) (Auto) 2 0-10 % Basophils (%) (Auto) 0 0-10 % Neutrophils # (Auto) 5.0 1.8-7.8 X 10^3 Lymphocytes # (Auto) 1.1 1.0-4.0 X 10^3 Monocytes # (Auto) 1.2 H 0.0-1.0 X 10^3 Eosinophils # (Auto) 0.2 0.0-0.3 10^3/uL Basophils # (Auto) 0.0 0.0-0.1 10^3/uL Prothrombin Time 24.6 H 12.2-14.7 SEC INR Comment 2.2 H 0.8-1.4 Activated Partial Thromboplast Time 45 H 24-35 SEC Sodium Level 140 135-145 MMOL/L Potassium Level 4.0 3.6-5.0 MMOL/L Chloride Level 103 98-107 MMOL/L Carbon Dioxide Level 30 21-32 MMOL/L Anion Gap 7 5-14 MMOL/L Blood Urea Nitrogen 23 H 7-18 MG/DL Creatinine 1.16 0.60-1.30 MG/DL Estimat Glomerular Filtration Rate 45 BUN/Creatinine Ratio 20 Glucose Level 108 H 70-105 MG/DL Lactic Acid Level 1.44 0.50-2.00 MMOL/L Calcium Level 9.1 8.5-10.1 MG/DL Total Bilirubin 0.8 0.1-1.0 MG/DL Aspartate Amino Transf (AST/SGOT) 18 5-34 U/L Alanine Aminotransferase (ALT/SGPT) 14 0-55 U/L Alkaline Phosphatase 64 40-136 U/L Troponin I < 0.30 <0.30 NG/ML B-Type Natriuretic Peptide 752.6 H <100.0 PG/ML Total Protein 7.6 6.4-8.2 GM/DL Albumin 3.9 3.2-4.5 GM/DL Urine Color YELLOW Urine Clarity CLEAR Urine pH 8 5-9 Urine Specific [place] 1.010 L 1.016-1.022 Urine Protein NEGATIVE NEGATIVE Urine Glucose (UA) NEGATIVE NEGATIVE Urine Ketones NEGATIVE NEGATIVE Urine Nitrite NEGATIVE NEGATIVE Urine Bilirubin NEGATIVE NEGATIVE Urine Urobilinogen NORMAL NORMAL MG/DL Urine Leukocyte Esterase NEGATIVE NEGATIVE Urine RBC (Auto) 2+ H NEGATIVE Urine RBC 0-2 /HPF Urine WBC NONE /HPF Urine Squamous Epithelial Cells NONE /HPF Urine Crystals NONE /LPF Urine Bacteria NEGATIVE /HPF Urine Casts NONE /LPF Urine Mucus NEGATIVE /LPF Urine Culture Indicated NO My Orders Orders - GWEN AMBROCIO MD Cbc With Automated Diff (08/03/17 09:45) Comprehensive Metabolic Panel (08/03/17 09:45) Lactic Acid Analyzer (08/03/17 09:45) Blood Culture (08/03/17 09:45) Sputum Culture (08/03/17 09:45) Ua Culture If Indicated (08/03/17 09:45) Protime With Inr (08/03/17 09:45) Partial Thromboplastin Time (08/03/17 09:45) O2 (08/03/17 09:45) Saline Lock/Iv-Start (08/03/17 09:45) Troponin I (08/03/17 09:45) Vital Signs Adult Sepsis Patie Q1H (08/03/17 09:45) Remove Rings In Anticipation O (08/03/17 09:45) BNP (08/03/17 09:45) Chest Pa/Lat (2 View) (08/03/17 09:45) Furosemide Injection (Lasix Injection) (08/03/17 11:20) Echo W Doppler/Color Flow (08/03/17 11:28) Vital Signs/I&O Vital Sign - Last 12Hours 08/03/17 08/03/17 09:30 11:48 Temp 98.7 Pulse 85 86 Resp 18 18 B/P (MAP) 122/67 (85) Pulse Ox 97 96 O2 Delivery Nasal Cannula Nasal Cannula O2 Flow Rate 2.00 2.00 Capillary Refill : Less Than 3 Seconds Blood Pressure Mean: 85 Progress Note : Progress Note Seen and evaluated. IV, labs, lactic acid and blood culture ordered. Two-view chest x-ray ordered. EKG reviewed from clinic visit done just prior to arrival. No significant findings on EKG. Monitor patient. 1100: Labs reviewed and chest x-ray reviewed. Patient appears to be in heart failure. 1103: Discussed case with Dr. Vides and she accepts patient for admission and requesting cardiology consult. 1120: Discussed case with Dr. Orozco and he will see the patient in consult on-call for Dr. Parker. Lasix 40 mg IV ordered. We will get cardiac echo today. Findings and concerns discussed with patient and family who agree with plan. Admit, inpatient status. ECG Initial ECG Impression Date: Aug 03, 2017 Initial ECG Impression Time: 10:02 Initial ECG Rate: 86 Comment Ventricular paced rhythm with extreme right axis deviation. Similar to previous of 05/31/17. No evidence of ST elevation NV. Interpreted by me. Diagnostic Imaging Diagonstic Imaging: Xray Plain Films/CT/US/NM/MRI: chest Comments VIA [facility]. [place], [place] NAME: KATHY ELLIS [facility] REC#: [id number] PT STATUS: REG ER : 1935 PHYSICIAN: GWEN AMBROCIO MD ADMIT DATE: 08/03/17/ER Draft Date of Exam:08/03/17 CHEST PA/LAT (2 VIEW) INDICATION: Shortness of breath. Study compared 05/31/2017. FINDINGS: Cardiomegaly, while substantial in magnitude, has improved in the interim. Small pleural effusions, however, may be increased, and Jimmy Bs and interstitial edema have also progressed. Sternal wires midline. Pacemaker device unremarkable. There is no pneumothorax. IMPRESSION: While cardiomegaly is at least somewhat improved in magnitude, vascular congestion, pulmonary edema, and small pleural effusions have progressed. No pneumothorax. Dictated on workstation # [id number] Dict: 08/03/17 1041 Trans: 08/03/17 1043 [id number] Interpreted by: ECHO DORMAN Electronically signed by: Departure Communication (Admissions) Time/Spoke to Admitting Phy: 11:03 Time/Spoke to Consulting Phy: 11:20 Impression Impression: Primary Impression: Acute exacerbation of congestive heart failure Qualified Codes: I50.9 - Heart failure, unspecified Disposition: ADMITTED INPATIENT Condition: Stable Admissions Decision to Admit Reason: Admit from ER (General) Decision to Admit/Date: Aug 03, 2017 Time/Decision to Admit Time: 11:03 Departure-Patient Inst. Referrals: RUSTAM CALI DO (PCP/Family) Primary Care Physician GWEN AMBROCIO MD Aug 03, 2017 10:17
[2017-08-03 10:22] LABS: ALANINE AMINOTRANSFERASE 14 U/L (0-55); ALBUMIN 3.9 GM/DL (3.2-4.5); ANION GAP 7 MMOL/L (5-14); ASPARTATE AMINO TRANSFERASE 18 U/L (5-34); BILIRUBIN,TOTAL 0.8 MG/DL (0.1-1.0); BLOOD UREA NITROGEN 23 MG/DL (7-18); BUN/CREATININE RATIO 20; CALCIUM 9.1 MG/DL (8.5-10.1); CARBON DIOXIDE 30 MMOL/L (21-32); CHLORIDE 103 MMOL/L (98-107); CREATININE SERUM 1.16 MG/DL (0.60-1.30); GFR ESTIMATED 45; GLUCOSE 108 MG/DL (70-105); SODIUM 140 MMOL/L (135-145); TOTAL PROTEIN 7.6 GM/DL (6.4-8.2)
[2017-08-03 10:27] LABS: TROPONIN I < 0.30 NG/ML (<0.30)
[2017-08-03 10:41] LABS: BILIRUBIN,URINE NEGATIVE (NEGATIVE); KETONES,URINE NEGATIVE (NEGATIVE); LEUKOCYTE ESTERASE ,URINE NEGATIVE (NEGATIVE); NITRITE,URINE NEGATIVE (NEGATIVE); PH,URINE 8 (5-9); PROTEIN,URINE NEGATIVE (NEGATIVE); UROBILINOGEN,URINE NORMAL (NORMAL)
--- NOTE | 2017-08-03 10:44 | Diagnostic Imaging Report ---
INDICATION: Shortness of breath. Study compared 05/31/2017. FINDINGS: Cardiomegaly, while substantial in magnitude, has improved in the interim. Small pleural effusions, however, may be increased, and Jimmy Bs and interstitial edema have also progressed. Sternal wires midline. Pacemaker device unremarkable. There is no pneumothorax. IMPRESSION: While cardiomegaly is at least somewhat improved in magnitude, vascular congestion, pulmonary edema, and small pleural effusions have progressed. No pneumothorax. Dictated by: Dictated on workstation # [id number]
[2017-08-03] MEDS ORDERED: FUROSEMIDE 40 MG/4 ML INJ (LASIX) IV STA (11:20)
--- OUTSIDE RECORDS SUMMARY | 2017-08-03 11:36 | XMS REPORT | Clinical Summary ---
Author Author [facility] Organization [facility] Address Unknown Phone Unavailable Care Team Providers Care Library Media Technician Name Role Phone PCP Unavailable Source Comments Some departments are not documenting in the electronic medical record. 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 Severe MR & TR PAP 55 (42 a year earlier, EF 35, MR and TR mod-severe). 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 Overall well rate controlled. Biventricular ICD (implantable cardioverter-defibrillator) in place 2011 Overview: MDT DC PPM- L side 200408/07/12 [facility] [facility] [employer]-D upgrade implant + DFTs with Dr. Ceja. L ast Assessment & Plan: Device was checked today and demonstrated normal function. See device check and cardiovascular studies for further details. Resolved Problems Problem Noted Date Resolved Date Dilated cardiomyopathy (HCC) 03/18/2012 03/21/2012 Family History Medical History Relation Name Comments Coronary Artery Disease Mother of [place] Relation Name Status Comments Mother Social History Tobacco Use Types Packs/Day Years Used Date Never Smoker Smokeless Tobacco: Never Used Alcohol Use Drinks/Week oz/Week Comments No Sex Assigned at Date Recorded Not on file Last Filed Vital Signs Vital Sign Reading Time Taken Blood Pressure 128/60 08/31/2015 12:58 PM CAD INTERN Pulse 87 09/29/2014 11:26 AM CAD INTERN Temperature 36.6 C (97.9 F) 08/09/2012 11:25 AM CAD INTERN Respiratory Rate - - Oxygen Saturation 93% 09/29/2014 11:26 AM CAD INTERN Inhaled Oxygen - - Concentration Weight 58.1 kg (128 lb) 08/31/2015 12:58 PM CAD INTERN Height 167.6 cm (5' 6") 08/31/2015 12:58 PM CAD INTERN Body Mass Index 20.66 08/31/2015 12:58 PM CAD INTERN Plan of Treatment Health Maintenance Due Date Last Done Comments PHYSICAL (COMPREHENSIVE) 1944 EXAM PERTUSSIS VACCINE 1948 TETANUS VACCINE 1954 SHINGLES VACCINE 1997 OSTEOPOROSIS SCREENING 2002 PREVNAR/PNEUMOVAX (#1) 2002 INFLUENZA VACCINE 04/03/2017 Results Not on filefrom Last 3 Months
[2017-08-03] MEDS ORDERED: CATHETER FLUSH 10 ML SYR IV PRN (13:00)
[2017-08-03] MEDS ORDERED: POTA10CA68 PO (13:24)
[2017-08-03] MEDS ORDERED: PANT40TA3 PO (13:32)
[2017-08-03] MEDS ORDERED: FURO40TA4 PO (13:32)
[2017-08-03] MEDS ORDERED: RT-ALBUTEROL SULF 2.5 MG/3 ML PRE-MIX VIAL IH PRN (14:00)
[2017-08-03] MEDS: CATHETER FLUSH 10 ML SYR IV SCH ×2 (14:44→21:26)
[2017-08-03] MEDS: RT-ALBUTEROL SULF 2.5 MG/3 ML PRE-MIX VIAL IH SCH ×2 (14:46→21:57)
[2017-08-03 15:20] VITALS: BP 112/56
[2017-08-03] MEDS ORDERED: NITROGLYCERIN 0.4 MG SL TABS BTL 25'S SL PRN (15:30)
[2017-08-03] MEDS ORDERED: guaiFENesin (MUCINEX) 600 MG TAB PO PRN (15:30)
[2017-08-03] MEDS: ACETAMINOPHEN 500 MG TAB (TYLENOL) PO PRN ×2 (15:41→21:26)
--- NOTE | 2017-08-03 15:52 | Consultation-Cardiology ---
HPI-Cardiology Cardiology Consultation: Date of Consultation 08/03/17 Date of Admission Attending Physician Jennifer Vides DO Admitting Physician Jake Prabhakar DO Consulting Physician Cristiano OROZCO MD HPI: Time Seen by Provider: 13:00 Chief Complaint: Shortness of breath This is a 82-year-old lady who has extensive cardiac history. She is a patient of Dr. Parker. 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 She has an ICD. Denies having any significant CAD. Also has history of congestive heart failure. She presents with worsening shortness of breath. No significant weight gain or loss. She denies any significant orthopnea or PND. No chest pain. Review of Systems-Cardiology Review of Systems Constitutional: No As described under HPI, No no symptoms reported, No chills, No fever, No lightheadedness, No malaise, No tiredness, No weight loss, No weight gain, No other Eyes: No As described under HPI, No no symptoms reported, No blindness, No blurred vision, No contact lenses, No drainage, No decreased acuity, No foreign body sensation, No glasses, No inflammation, No pain, No photophobia, No previous injury, No shadows, No tunnel vision, No other, No vision change Ears/Nose/Throat: No As described under HPI, No no symptoms reported, No chronic hearing loss, No epistaxis, No ear discharge, No ear pain, No loose teeth, No mouth pain, No mouth swelling, No nasal drainage, No nose pain, No recent hearing loss, No throat pain, No throat swelling, No ulcerations, No other Respiratory: shortness of breath Cardiovascular: No no symptoms reported, No As described under HPI, No chest pain, No edema, No irregular heart rate, No lightheadedness, No palpitations, No syncope, No other Gastrointestinal: No no symptoms reported, No As described under HPI, No abdomen distended, No abdominal pain, No blood streaked bowels, No constipation , No diarrhea, No difficulty swallowing, No nausea, No poor appetite, No poor fluid intake, No rectal bleeding, No vomiting, No other, No nausea/vomiting/ diarrhea, No stool coloration changes Genitourinary: No no symptoms reported, No As described under HPI, No burning, No dysuria, No discharge, No frequency, No flank pain, No hematuria, No incontinence, No pain, No urgency, No other, No urine frequency changes, No urine coloration changes Musculoskeletal: No no symptoms reported, No As describe under HPI, No back pain, No gout, No joint pain, No joint swelling, No muscle pain, No muscle stiffness, No neck pain, No other Skin: No no symptoms reported, No As described under HPI, No change in color, No change in hair/nails, No dryness, No lesions, No lumps, No rash, No other, No skin related problems, No ulcerations, No rash on exposed areas, No ulcerations on exposed areas Psychiatric/Neurological: No no symptoms reported, No As described under HPI, No anxiety, No depression, No emotional problems, No headache, No numbness, No pre-existing deficit, No seizure, No tingling, No tremors, No weakness, No other , No focal weakness, No syncope Hematologic: No no symptoms reported, No As described under HPI, No anemia, No blood clots, No easy bleeding, No easy bruising, No swollen glands, No other, No bleeding abnormalities All Other Systems Reviewed Negative Unless Noted: Yes [id number] Hx Patient Social History Alcohol Use: Denies Use Recreational Drug Use: No Smoking Status: Never a Smoker Recent Foreign Travel: No Recent Infectious Disease Expo: No Hospitalization with Isolation: Denies Physical Abuse Screen: No Sexual Abuse: No Immunizations Up To Date Tetanus Booster (TDap): Unknown Date of Pneumonia Vaccine: May 31, 2015 Date of Influenza Vaccine: May 16, 2017 Past Medical History PMH As described under Assessment. Family Medical History Family History: Family history: Diabetes mellitus 19 MOTHER Heart disease 19 MOTHER History of - respiratory disease 19 FATHER (PNEUMONIA- IN HIS 20'S) Myocardial infarction 19 MOTHER No Family History of: Abdominal aortic aneurysm Altheimer's disease Alcoholism Aphasia Cancer Cancer of colon Cataract Chest pain Congenital heart disease Congestive heart failure Cystic fibrosis Dementia Dysphagia Family history: Allergy Family history: Alzheimer's disease Family history: Arthritis Family history: Asthma Family history: Breast disease Family history: Cardiovascular disease Family history: Coronary thrombosis Family history: Gastrointestinal disease Family history: Glaucoma Family history: Hypertension Family history: Osteoporosis Family history: Thyroid disorder Headache Hearing loss Hereditary disease History of - anemia History of - disorder History of drug abuse Human immunodeficiency virus (HIV) seropositivity Hypercholesterolemia Infertile Kidney disease Parkinson's disease Prostate cancer Psychotic disorder Seizure disorder Stroke Tuberculosis Visual impairment Allergies and Home Medications Allergies Coded Allergies: NKANo Known Allergies (Verified Allergy, Unknown, 11/14/05) Home Medications Acetaminophen 500 Mg Tablet, 500-1,000 MG PO Q4H PRN for PAIN-MILD, (Reported) Digoxin 125 Mcg Tablet, 125 MCG PO DAILY, (Reported) Furosemide 40 Mg Tablet, 40 MG PO BID, (Reported) Furosemide 40 Mg Tablet, 40 MG PO DAILY PRN for SWELLING, (Reported) MAY TAKE ADDITIONAL DOSE IF NEEDED FOR SWELLING Guaifenesin 600 Mg Tab.er.12h, 600 MG PO BID PRN for CONGESTION, (Reported) Isosorbide Mononitrate 30 Mg Tab.er.24h, 15 MG PO DAILY, (Reported) TAKES 1/2 (30MG) TABLET Levothyroxine Sodium 100 Mcg Tablet, 100 MCG PO DAILY, (Reported) Loratadine 10 Mg Tablet, 10 MG PO DAILY, (Reported) Meclizine HCl 25 Mg Tablet, 25 MG PO TID PRN for DIZZINESS, (Reported) Metoprolol Succinate 50 Mg Tab.er.24h, 50 MG PO DAILY, (Reported) Mexiletine HCl 150 Mg Cap, 150 MG PO DAILY, (Reported) Nitroglycerin 0.4 Mg Tab.subl, 0.4 MG SL UD PRN for CHEST PAIN, (Reported) Pantoprazole Sodium 40 Mg Tablet.dr, 40 MG PO DAILY, (Reported) Potassium Chloride 10 Meq Capsule.er, 10 MEQ PO HS, (Reported) Ropinirole HCl 0.5 Mg Tablet, 0.5 MG PO HS, (Reported) Ropinirole HCl 0.5 Mg Tablet, 0.5 MG PO BID PRN for RESTLESS LEGS, (Reported) Sacubitril/Valsartan 1 Each Tablet, 1 TAB PO BID, (Reported) Tramadol HCl 50 Mg Tablet, 50 MG PO Q6H PRN for PAIN-MODERATE, (Reported) Warfarin Sodium 2 Mg Tablet, 2 MG PO MoWe, (Reported) Warfarin Sodium 2 Mg Tablet, 4 MG PO SuTuThFrSa, (Reported) TAKES 2 (2MG) TABLETS Physical Exam-Cardiology Physical Exam Vital Signs/I&O Vital Sign - Last 12Hours 08/03/17 08/03/17 08/03/17 08/03/17 09:30 11:48 12:45 13:05 Temp 98.7 Pulse 85 86 86 Resp 18 18 B/P (MAP) 122/67 (85) Pulse Ox 97 96 97 O2 Delivery Nasal Cannula Nasal Cannula Nasal Cannula O2 Flow Rate 2.00 2.00 2.00 FiO2 28 08/03/17 08/03/17 08/03/17 08/03/17 14:10 14:48 15:20 15:41 Temp 99.1 100.0 Pulse 85 80 Resp 30 B/P (MAP) 112/56 (74) Pulse Ox 97 96 O2 Delivery Nasal Cannula Nasal Cannula O2 Flow Rate 2.00 2.00 FiO2 28 Capillary Refill : Less Than 3 Seconds Constitutional: No appears stated age, No AAO x 3, No apparent distress, No PERRL, No well-developed, No well-nourished, No other HEENT: No PERRL, No normal ENT inspection, No TMs normal, No pharynx normal, No scleral icterus (R), No scleral icterus (L), No pale conjunctivae (R), No pale conjunctivae (L), No photophobia, No TM abnormal (R), No TM abnormal (L), No pharyngeal erythema, No tonsillar exudate, No other, No discharge, No EOMI, No hearing is well preserved, No hard of hearing, No oral hygience is good, No ulceration, No xanthelasmas are seen Neck: No non-tender, No full range of motion, No supple, No normal inspection, No carotid bruit, No limited range of motion, No lymphadenopathy (R), No lymphadenopathy (L), No tender lateral, No tender midline, No thyromegaly, No other, No carotid pulses are 2 + bilaterally, No with good upstrokes Respiratory: No accessory muscle use, No respiratory distress, No chest tender , No chest expansion is symmetric, No chest is bilaterally symmetric, No lungs clear to percussion, No lungs clear to auscultation, No crackles, No rhonchi, No rales, No stridor, No wheezing, No pleural rub, No other Cardiovascular: regular rate-rhythm, No irregularly irregular, No extra beats, No parasternal heave is noted, No JVD, No edema, No bradycardia, No tachycardia , No point of maximal impulse, No cardiac thrills are palpable, S1 and S2, No gallop/S3, No gallop/S4, No diastolic murmur, No systolic murmur, No friction rub, No click, No other Gastrointestinal: No tender, No soft, No round, No distended, No pulsatile mass , No organomegaly, No guarding, No rebound, No tenderness, No hernia, No mass, No audible bowel sounds, No abnormal bowel sounds, No abdominal bruits, No spleenomegaly, No other Rectal: deferred Extremities: No normal range of motion, No non-tender, No normal inspection, No pedal edema, No calf tenderness, No normal capillary refill, No pelvis stable , No calf tenderness, No inflammation, No pedal edema, No slow capillary refill , No swelling, No other, No abrasion, No clubbing, No cyanosis, No ecchymosis, No laceration, No no lower extremity edema bilateral, No significant edema, No tenderness, No wound Neurologic/Psychiatric: No rn security II-XII nml as tested, No no motor/sensory deficits, No alert, No normal mood/affect, No oriented x 3, No abnormal cerebellar tests, No abnormal rn security II-XII, No abnormal gait, No aphasia, No EOM palsy, No facial droop, No motor weakness, No sensory deficit, No depressed affect, No disoriented x 3, No other, No grossly intact, No power is 5/5 both on sides Skin: normal color, warm/dry, No cyanosis, No cool, No diaphoresis, No damp, No ecchymosis, No jaundice, No mottled, No pallor, No rash, No tattoos/piercings , No ulcerations, No rash on exposed areas, No ulcerations on exposed areas, No other Data Review Labs Laboratory Tests 08/03/17 09:50: White Blood Count 7.4, Red Blood Count 2.77L, Hemoglobin 8.7L, Hematocrit 28L, Mean Corpuscular Volume 101H, Mean Corpuscular Hemoglobin 31, Mean Corpuscular Hemoglobin Concent 31L, Red Cell Distribution Width 14.8H, Platelet Count 84L, Mean Platelet Volume 11.5H, Neutrophils (%) (Auto) 67, Lymphocytes (%) (Auto) 15 , Monocytes (%) (Auto) 16H, Eosinophils (%) (Auto) 2, Basophils (%) (Auto) 0, Neutrophils # (Auto) 5.0, Lymphocytes # (Auto) 1.1, Monocytes # (Auto) 1.2H, Eosinophils # (Auto) 0.2, Basophils # (Auto) 0.0, Prothrombin Time 24.6H, INR Comment 2.2H, Activated Partial Thromboplast Time 45H, Sodium Level 140, Potassium Level 4.0, Chloride Level 103, Carbon Dioxide Level 30, Anion Gap 7, Blood Urea Nitrogen 23H, Creatinine 1.16, Estimat Glomerular Filtration Rate 45 , BUN/Creatinine Ratio 20, Glucose Level 108H, Lactic Acid Level 1.44, Calcium Level 9.1, Total Bilirubin 0.8, Aspartate Amino Transf (AST/SGOT) 18, Alanine Aminotransferase (ALT/SGPT) 14, Alkaline Phosphatase 64, Troponin I < 0.30, B- Type Natriuretic Peptide 752.6H, Total Protein 7.6, Albumin 3.9 08/03/17 10:34: Urine Color YELLOW, Urine Clarity CLEAR, Urine pH 8, Urine Specific [place] 1.010L, Urine Protein NEGATIVE, Urine Glucose (UA) NEGATIVE, Urine Ketones NEGATIVE, Urine Nitrite NEGATIVE, Urine Bilirubin NEGATIVE, Urine Urobilinogen NORMAL, Urine Leukocyte Esterase NEGATIVE, Urine RBC (Auto) 2+H, Urine RBC 0-2, Urine WBC NONE, Urine Squamous Epithelial Cells NONE, Urine Crystals NONE, Urine Bacteria NEGATIVE, Urine Casts NONE, Urine Mucus NEGATIVE, Urine Culture Indicated NO ECG Impression ECG Comment Paced rhythm A/P-Cardiology Assessment/Admission Diagnosis Status post-aortic valve replacement with metallic valve. Congestive heart failure. ICD Plan AVR: Continue Coumadin for AVR. INR target 2.5-3.0. Congestive heart failure: Elevated BNP. IV lasix. Request Echocardiogram. ICD: will try to get most recent device interrogation. Significant RV pacing noted on EKG. Thank you for your consultation. Please call me if you have any questions. Zack Orozco MD, FACP, FACC, FSCAI, FHRS, CCDS Interventional Cardiology Cardiac Electrophysiology Vascular Medicine and Endovascular Interventions Clinical Quality Measures DVT/VTE Risk/Contraindication: Risk Factor Score Per Nursin RFS Level Per Nursing on Admit: 2=Moderate Cristiano OROZCO MD Aug 03, 2017 3:52 pm
[2017-08-03] MEDS: FUROSEMIDE 40 MG/4 ML INJ (LASIX) IV SCH (16:30)
[2017-08-03] MEDS: warFARin 2 MG (COUMADIN) TAB PO SCH (17:53)
[2017-08-03 20:27] VITALS: BP 108/52
[2017-08-03] MEDS ORDERED: rOPINIRole 0.25 MG (REQUIP) TAB PO PRN (21:00)
[2017-08-03] MEDS: KCL 10 MEQ TAB (MICRO K) PO SCH (21:26)
[2017-08-03] MEDS: rOPINIRole 0.25 MG (REQUIP) TAB PO SCH (21:26)
[2017-08-03] MEDS: SACUBITRIL/VALSARTAN 24/26 MG (ENTRESTO) TABLET PO SCH (21:26)
[2017-08-03 23:22] VITALS: BP 115/55
[2017-08-04] VITALS: BP 115/57
[2017-08-04] MEDS: RT-ALBUTEROL SULF 2.5 MG/3 ML PRE-MIX VIAL IH SCH ×3 (02:18→07:42)
[2017-08-04 04:04] VITALS: BP 113/50
[2017-08-04] MEDS: ACETAMINOPHEN 500 MG TAB (TYLENOL) PO PRN ×4 (04:27→20:23)
[2017-08-04] MEDS ORDERED: ONDANSETRON 4 MG/2 ML (SDV) Z0FRAN ONE (04:43)
[2017-08-04] MEDS ORDERED: ONDANSETRON 4 MG/2 ML (SDV) Z0FRAN IVP PRN ×3 (04:45→05:15)
[2017-08-04] MEDS: SCOPOLAMINE 1.5 MG (TRANSDERM-SCOP) PATCH TOP SCH (04:49)
[2017-08-04 05:50] LABS: BASOPHILS % (AUTO) 0 % (0-10); EOSINOPHILS % (AUTO) 0 % (0-10); LYMPHOCYTES # (AUTO) 0.9 X 10^3 (1.0-4.0); LYMPHOCYTES % (AUTO) 13 % (12-44); MEAN CORPUSCULAR HEMOGLOBIN 31 PG (25-34); MEAN CORPUSCULAR HGB CONC 31 G/DL (32-36); MEAN CORPUSCULAR VOLUME 100 FL (80-99); MEAN PLATELET VOLUME 11.5 FL (7.4-10.4); MONOCYTES # (AUTO) 1.1 X 10^3 (0.0-1.0); MONOCYTES % (AUTO) 16 % (0-12); NEUTROPHILS # (AUTO) 4.6 X 10^3 (1.8-7.8); NEUTROPHILS % (AUTO) 70 % (42-75); PLATELET COUNT 78 10^3/uL (130-400); RED BLOOD COUNT 2.31 10^6/uL (4.35-5.85); RED CELL DISTRIBUTION WIDTH 14.7 % (10.0-14.5); WHITE BLOOD COUNT 6.6 10^3/uL (4.3-11.0)
[2017-08-04] MEDS: PANTOPRAZOLE 40 MG (PROTONIX) TAB PO SCH (06:06)
[2017-08-04] MEDS: FUROSEMIDE 40 MG/4 ML INJ (LASIX) IV SCH ×2 (06:06→16:20)
[2017-08-04] MEDS: CATHETER FLUSH 10 ML SYR IV SCH ×3 (06:06→21:32)
[2017-08-04] MEDS: LEVOTHYROXINE 100 MCG (LEVOTHROID) TAB PO SCH (06:06)
[2017-08-04 06:08] LABS: ALBUMIN 3.4 GM/DL (3.2-4.5); BILIRUBIN,TOTAL 0.8 MG/DL (0.1-1.0); CALCIUM 8.5 MG/DL (8.5-10.1); CREATININE SERUM 1.3 MG/DL (0.60-1.30); POTASSIUM 3.9 MMOL/L (3.6-5.0); TOTAL PROTEIN 6.5 GM/DL (6.4-8.2)
[2017-08-04 08:00] VITALS: BP 120/55
[2017-08-04] MEDS: LORATADINE (CLARITIN) 10 MG TAB PO SCH (08:14)
[2017-08-04] MEDS: meTOproloL SUCCINATE 50 MG (TOPROL XL) TAB PO SCH (08:14)
[2017-08-04] MEDS: ISOSORBIDE MONONITRATE 30 MG (IMDUR) TAB PO SCH (08:14)
[2017-08-04] MEDS: MEXILETINE 150 MG (MEXITIL) CAPSULE PO SCH (08:14)
[2017-08-04] MEDS: DIGOXIN 0.125 MG (LANOXIN) TAB PO SCH (08:14)
[2017-08-04] MEDS: SACUBITRIL/VALSARTAN 24/26 MG (ENTRESTO) TABLET PO SCH ×2 (08:18→20:22)
--- NOTE | 2017-08-04 11:47 | Cardiology Progress Note ---
Cardiology SOAP Progress Note Subjective: Improved shortness of breath. Objective: I&O/Vital Signs Vital Sign - Last 12Hours 08/04/17 08/04/17 08/04/17 08/04/17 00:00 01:00 02:18 04:04 Temp 99.1 100.5 Pulse 88 91 85 Resp 20 24 B/P (MAP) 115/57 (76) 113/50 (71) Pulse Ox 93 92 90 O2 Delivery Nasal Cannula Nasal Cannula Nasal Cannula O2 Flow Rate 2.00 2.00 2.00 08/04/17 08/04/17 08/04/17 08/04/17 04:27 06:05 07:00 07:41 Temp 100.5 99.5 Pulse 85 Pulse Ox 90 O2 Delivery Nasal Cannula O2 Flow Rate 2.00 08/04/17 08/04/17 08/04/17 08/04/17 08:00 08:00 08:26 09:48 Temp 100.7 100.7 98.6 Pulse 86 Resp 20 B/P (MAP) 120/55 (76) Pulse Ox 90 90 O2 Delivery Nasal Cannula Nasal Cannula O2 Flow Rate 2.00 2.00 Weight (Pounds): 142 Weight (Ounces): 0.0 Weight (Calculated Kilograms): [id number] Constitutional: No appears stated age, No AAO x 3, No apparent distress, No PERRL, No well-developed, No well-nourished, No other Respiratory: No accessory muscle use, No respiratory distress, No chest tender , No chest expansion is symmetric, No chest is bilaterally symmetric, No lungs clear to percussion, No lungs clear to auscultation, No crackles, No rhonchi, No rales, No stridor, No wheezing, No pleural rub, No other Cardiovascular: regular rate-rhythm, No irregularly irregular, No extra beats, No parasternal heave is noted, No JVD, No edema, No bradycardia, No tachycardia , No point of maximal impulse, No cardiac thrills are palpable, S1 and S2, No gallop/S3, No gallop/S4, No diastolic murmur, No systolic murmur, No friction rub, No click, No other Gastrointestional: No tender, No soft, No round, No distended, No pulsatile mass, No organomegaly, No guarding, No rebound, No tenderness, No hernia, No mass, No audible bowel sounds, No abnormal bowel sounds, No abdominal bruits, No spleenomegaly, No other Extremities: No normal range of motion, No non-tender, No normal inspection, No pedal edema, No calf tenderness, No normal capillary refill, No pelvis stable , No calf tenderness, No inflammation, No pedal edema, No slow capillary refill , No swelling, No other, No abrasion, No clubbing, No cyanosis, No ecchymosis, No laceration, No no lower extremity edema bilateral, No significant edema, No tenderness, No wound Neurologic/Psychiatric: No graduating machine operator II-XII nml as tested, No no motor/sensory deficits, No alert, No normal mood/affect, No oriented x 3, No abnormal cerebellar tests, No abnormal graduating machine operator II-XII, No abnormal gait, No aphasia, No EOM palsy, No facial droop, No motor weakness, No sensory deficit, No depressed affect, No disoriented x 3, No other, No grossly intact, No power is 5/5 both on sides Skin: normal color, warm/dry, No cyanosis, No cool, No diaphoresis, No damp, No ecchymosis, No jaundice, No mottled, No pallor, No rash, No tattoos/piercings , No ulcerations, No rash on exposed areas, No ulcerations on exposed areas, No other Results/Procedures: Labs Laboratory Tests 08/04/17 05:21: White Blood Count 6.6, Red Blood Count 2.31L, Hemoglobin 7.1L, Hematocrit 23L, Mean Corpuscular Volume 100H, Mean Corpuscular Hemoglobin 31, Mean Corpuscular Hemoglobin Concent 31L, Red Cell Distribution Width 14.7H, Platelet Count 78L, Mean Platelet Volume 11.5H, Neutrophils (%) (Auto) 70, Lymphocytes (%) (Auto) 13 , Monocytes (%) (Auto) 16H, Eosinophils (%) (Auto) 0, Basophils (%) (Auto) 0, Neutrophils # (Auto) 4.6, Lymphocytes # (Auto) 0.9L, Monocytes # (Auto) 1.1H, Eosinophils # (Auto) 0.0, Basophils # (Auto) 0.0, Sodium Level 140, Potassium Level 3.9, Chloride Level 103, Carbon Dioxide Level 29, Anion Gap 8, Blood Urea Nitrogen 20H, Creatinine 1.30, Estimat Glomerular Filtration Rate 39, BUN/ Creatinine Ratio 15, Glucose Level 126H, Calcium Level 8.5, Total Bilirubin 0.8 , Aspartate Amino Transf (AST/SGOT) 15, Alanine Aminotransferase (ALT/SGPT) 12, Alkaline Phosphatase 53, Total Protein 6.5, Albumin 3.4 A/P: Assessment/Dx: Status post-aortic valve replacement with metallic valve. Congestive heart failure. ICD Plan: AVR: Continue Coumadin for AVR. INR target 2.5-3.0. Congestive heart failure: Elevated BNP. IV lasix. Echocardiogram showed reduced ejection fraction. ICD: will try to get most recent device interrogation. Significant RV pacing noted on EKG. Continue IV Lasix for 24 hours more. If significantly improved by tomorrow she may be able to be discharged home to follow-up with Dr. Parker as an outpatient. Thank you for your consultation. Please call me if you have any questions. Zack Orozco MD, FACP, FACC, FSCAI, FHRS, CCDS Interventional Cardiology Cardiac Electrophysiology Vascular Medicine and Endovascular Interventions Cristiano OROZCO MD Aug 04, 2017 11:47 am
[2017-08-04 12:00] VITALS: BP 115/56
[2017-08-04] MEDS ORDERED: RT-LEVALBUTEROL (XOPENEX) 1.25 MG/3 ML NEB NON-FORMULARY INH PRN (12:45)
--- NOTE | 2017-08-04 12:48 | History & Physical-Hospitalist ---
HPI History of Present Illness: HPI/Chief Complaint CC: Dyspnea due to volume overload HPI: This is an 82yoWF clinic patient of Dr Prabhakar w/h/o severe CAD and SSS requiring pacemaker who presents to the ER w/c/o SOB. She had been on Entresto by Dr Parker and had made a real impact on the amount of hospital admits since she had not been admitted for the 1 1/s yrs. She was found to have pulmonary edema on CXR and elevated BNP which has responded to IV Lasix under Cardiology direction Dr Orozco. Currently she denies any pain and feels like she is breathing better. I reconciled all of her home meds yesterday and she is reporting improved nausea but seems to be caused by the Albuterol so that was changed to Xopenex to evaluate the resolution of that side effect. Low grade fever is noted but wbc count is nl and CXR did not reveal infiltrate. Hgb is very low so will be checking iron and ferritin and empirically giving IV Iron. Source: patient Exam Limitations: no limitations Date Seen 08/04/17 Time Seen by Provider: 11:30 Attending Physician Jennifer Cifuentes DO PCP Jake Prabhakar DO Referring Physician Date of Admission Aug 03, 2017 at 11:20 Home Medications & Allergies Home Medications Reviewed patient Home Medication Reconciliation Form Allergies Allergies Coded Allergies NKANo Known Allergies (Verified Allergy, Unknown, 11/14/05) Past Okkppuc-[id number]-[id number] Hx Patient Social History Marrital Status: Employed/Student: retired Alcohol Use: Denies Use Recreational Drug Use: No Smoking Status: Never a Smoker Physical Abuse Screen: No Sexual Abuse: No Recent Foreign Travel: No Contact w/other who traveled: No Recent Hopitalizations: Yes Recent Infectious Disease Expo: No Immunizations Up To Date Tetanus Booster (TDap): Unknown Pediatric: No Date of Pneumonia Vaccine: May 31, 2015 Date of Influenza Vaccine: May 16, 2017 Seasonal Allergies Seasonal Allergies: No Surgeries Yes Defibrillator, Gallbladder, Pacemaker Respiratory Yes (PHTN) Cardiovascular Yes (MITRAL VALVE STENOSIS, AORTIC VALVE REPLACEMENT 99') Chronic Edema/Swelling, Coronary Artery Disease, Hypertension, Valvular Heart Disease Neurological Yes Dementia Reproductive System Hx Reproductive Disorders: No Sexually Transmitted Disease: No HIV/AIDS: No Genitourinary No Gastrointestinal No Gall Bladder Disease Musculoskeletal Yes (OSTEOARTHRITIS) Arthritis Endocrine History of Endocrine Disorders: Yes Endocrine Disorders: Hypothyroidsim HEENT HEENT Disorders: Cataract Loss of Vision: Denies Hearing Impairment: Denies Cancer No Psychosocial History of Psychiatric Problem: No Integumentary History of Skin or Integumenta: Yes (RIGHT LEG PAIGE ULCER) Blood Transfusions History of Blood Disorders: No Adverse Reaction to a Blood Tr: No Reviewed Nursing Assessment Reviewed/Agree w Nursing PMH: Yes Family Medical History Significant Family History: No Pertinent Family Hx Family Hx: Family history: Diabetes mellitus 19 MOTHER Heart disease 19 MOTHER History of - respiratory disease 19 FATHER (PNEUMONIA- IN HIS 20'S) Myocardial infarction 19 MOTHER No Family History of: Abdominal aortic aneurysm Maynor's disease Alcoholism Aphasia Cancer Cancer of colon Cataract Chest pain Congenital heart disease Congestive heart failure Cystic fibrosis Dementia Dysphagia Family history: Allergy Family history: Alzheimer's disease Family history: Arthritis Family history: Asthma Family history: Breast disease Family history: Cardiovascular disease Family history: Coronary thrombosis Family history: Gastrointestinal disease Family history: Glaucoma Family history: Hypertension Family history: Osteoporosis Family history: Thyroid disorder Headache Hearing loss Hereditary disease History of - anemia History of - disorder History of drug abuse Human immunodeficiency virus (HIV) seropositivity Hypercholesterolemia Infertile Kidney disease Parkinson's disease Prostate cancer Psychotic disorder Seizure disorder Stroke Tuberculosis Visual impairment Review of Systems Constitutional: see HPI, weakness EENTM: no symptoms reported Respiratory: dyspnea on exertion, short of breath Cardiovascular: no symptoms reported Gastrointestinal: nausea, vomiting Genitourinary: no symptoms reported Musculoskeletal: back pain Skin: no symptoms reported Psychiatric/Neurological: No Symptoms Reported All Other Systems Reviewed Negative Unless Noted: Yes Physical Exam Physical Exam Vital Signs Vital Sign - Last 12Hours 08/03/17 08/03/17 09:30 13:05 Temp 98.7 Pulse 85 Resp 18 B/P (MAP) 122/67 (85) Pulse Ox 97 O2 Delivery Nasal Cannula O2 Flow Rate 2.00 FiO2 28 Capillary Refill : Less Than 3 Seconds General Appearance: No Apparent Distress, WD/WN, Chronically ill, Thin Eyes: Bilateral Eye Normal Inspection, Bilateral Eye PERRL HEENT: PERRL/EOMI, Normal ENT Inspection, Pharynx Normal Neck: Full Range of Motion, Normal Inspection, Non Tender, Supple, Carotid Bruit Respiratory: Chest Non Tender, No Accessory Muscle Use, No Respiratory Distress , Crackles, Decreased Breath Sounds Cardiovascular: Regular Rate, Rhythm, No Edema, No Gallop, No JVD, Normal Peripheral Pulses, Systolic Murmur, Other (click) Gastrointestinal: Normal Bowel Sounds, No Organomegaly, No Pulsatile Mass, Non Tender, Soft Back: Normal Inspection, No CVA Tenderness, No Vertebral Tenderness Extremity: Normal Capillary Refill, Normal Inspection, Normal Range of Motion, Non Tender, No Calf Tenderness, No Pedal Edema Neurologic/Psychiatric: Alert, Oriented x3, No Motor/Sensory Deficits, Depressed Affect Skin: Normal Color, Warm/Dry Lymphatic: No Adenopathy Results Results/Procedures Lab Laboratory Tests 08/03/17 09:50 08/04/17 05:21 Assessment/Plan Admission Diagnosis Assessment: Volume overload with known ischemic cardiomypathy patient Severe anemia likely of chronic disease and iron def HTN HLP CRI Debility Valvular heart disease SSS s/p pacemaker Current nausea Assessment and Plan Plan: Check CXR in am Tylenol for low grade fever Check labs in am Venofer infusion, check Iron and ferritin Home meds Xopenex Clinical Quality Measures DVT/VTE Risk/Contraindication: Risk Factor Score Per Nursin RFS Level Per Nursing on Admit: 2=Moderate JENNIFER CIFUENTES DO Aug 04, 2017 12:48
[2017-08-04] MEDS: IRON SUCROSE INJECTION 200 MG in NS (IVPB) 100 ML IV SCH (13:55)
[2017-08-04 16:08] VITALS: BP 110/58
[2017-08-04] MEDS: warFARin 2 MG (COUMADIN) TAB PO SCH (17:08)
[2017-08-04 19:44] VITALS: BP 98/46
[2017-08-04] MEDS: KCL 10 MEQ TAB (MICRO K) PO SCH (20:22)
[2017-08-04] MEDS: rOPINIRole 0.25 MG (REQUIP) TAB PO SCH (20:22)
[2017-08-05] VITALS: BP 104/54
[2017-08-05] MEDS: ACETAMINOPHEN 500 MG TAB (TYLENOL) PO PRN ×2 (02:25→08:05)
[2017-08-05 04:00] VITALS: BP 113/56
[2017-08-05 05:03] LABS: BASOPHILS % (AUTO) 0 % (0-10); EOSINOPHILS # (AUTO) 0.1 10^3/uL (0.0-0.3); EOSINOPHILS % (AUTO) 1 % (0-10); LYMPHOCYTES # (AUTO) 1.1 X 10^3 (1.0-4.0); LYMPHOCYTES % (AUTO) 15 % (12-44); MEAN CORPUSCULAR HEMOGLOBIN 31 PG (25-34); MEAN CORPUSCULAR HGB CONC 31 G/DL (32-36); MEAN CORPUSCULAR VOLUME 100 FL (80-99); MEAN PLATELET VOLUME 11.2 FL (7.4-10.4); MONOCYTES # (AUTO) 1.3 X 10^3 (0.0-1.0); MONOCYTES % (AUTO) 17 % (0-12); NEUTROPHILS # (AUTO) 5.1 X 10^3 (1.8-7.8); NEUTROPHILS % (AUTO) 67 % (42-75); PLATELET COUNT 99 10^3/uL (130-400); RED BLOOD COUNT 2.24 10^6/uL (4.35-5.85); RED CELL DISTRIBUTION WIDTH 14.7 % (10.0-14.5); WHITE BLOOD COUNT 7.7 10^3/uL (4.3-11.0)
[2017-08-05 05:18] LABS: INR 3.2 (0.8-1.4); PROTHROMBIN TIME PATIENT 32.6 SEC (12.2-14.7)
[2017-08-05 05:26] LABS: ALBUMIN 3.3 GM/DL (3.2-4.5); BILIRUBIN,TOTAL 0.9 MG/DL (0.1-1.0); CALCIUM 8.4 MG/DL (8.5-10.1); CREATININE SERUM 1.45 MG/DL (0.60-1.30); POTASSIUM 4.3 MMOL/L (3.6-5.0); TOTAL PROTEIN 6.4 GM/DL (6.4-8.2)
[2017-08-05] MEDS: PANTOPRAZOLE 40 MG (PROTONIX) TAB PO SCH (06:03)
[2017-08-05] MEDS: CATHETER FLUSH 10 ML SYR IV SCH ×3 (06:03→21:31)
[2017-08-05] MEDS: FUROSEMIDE 40 MG/4 ML INJ (LASIX) IV SCH ×2 (06:03→16:10)
[2017-08-05] MEDS: LEVOTHYROXINE 100 MCG (LEVOTHROID) TAB PO SCH (06:05)
[2017-08-05 08:00] VITALS: BP 100/55
[2017-08-05] MEDS: ISOSORBIDE MONONITRATE 30 MG (IMDUR) TAB PO SCH (08:06)
[2017-08-05] MEDS: LORATADINE (CLARITIN) 10 MG TAB PO SCH (08:06)
[2017-08-05] MEDS: DIGOXIN 0.125 MG (LANOXIN) TAB PO SCH (08:06)
[2017-08-05] MEDS: meTOproloL SUCCINATE 50 MG (TOPROL XL) TAB PO SCH (08:06)
[2017-08-05] MEDS: SACUBITRIL/VALSARTAN 24/26 MG (ENTRESTO) TABLET PO SCH ×2 (08:06→20:26)
[2017-08-05] MEDS: MEXILETINE 150 MG (MEXITIL) CAPSULE PO SCH (08:07)
--- NOTE | 2017-08-05 11:25 | Progress Note-Hospitalist ---
Progress Note HPI/CC on Admission CC: Dyspnea due to volume overload HPI: This is an 82yoWF clinic patient of Dr Prabhakar w/h/o severe CAD and SSS requiring pacemaker who presents to the ER w/c/o SOB. She had been on Entresto by Dr Parker and had made a real impact on the amount of hospital admits since she had not been admitted for the 1 1/s yrs. She was found to have pulmonary edema on CXR and elevated BNP which has responded to IV Lasix under Cardiology direction Dr Orozco. Currently she denies any pain and feels like she is breathing better. I reconciled all of her home meds yesterday and she is reporting improved nausea but seems to be caused by the Albuterol so that was changed to Xopenex to evaluate the resolution of that side effect. Low grade fever is noted but wbc count is nl and CXR did not reveal infiltrate. Hgb is very low so will be checking iron and ferritin and empirically giving IV Iron. 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 underlying given other medical issues and advanced age Rechecking CXR due to low grade fever + BM No pain is reported AFVSS, Pleasant, flat affect, improved overall, daughter at bedside RRR w/murmur and click No edema Laboratory Tests 08/05/17 04:47 Assessment: Volume overload with known ischemic cardiomypathy patient Severe anemia likely of chronic disease and iron def and kidney disease empirically placed on Venofer infusions HTN HLP CRI Debility Valvular heart disease SSS s/p pacemaker Nausea now resolved Plan: Check CXR today Tylenol for low grade fever Check labs in am Venofer infusion, check Iron and ferritin when completed Home meds Xopenex SB versus IRF AURORA CIFUENTES DO Aug 05, 2017 11:25
[2017-08-05 12:00] VITALS: BP 115/62
--- NOTE | 2017-08-05 13:08 | Cardiology Progress Note ---
Cardiology SOAP Progress Note Subjective: Improved shortness of breath but her overall condition is not improving as quickly as she would like. Objective: I&O/Vital Signs Vital Sign - Last 12Hours 08/05/17 08/05/17 08/05/17 08/05/17 02:20 02:25 03:00 04:00 Temp 100.8 100.8 100.1 100.0 Pulse 81 Resp 20 B/P (MAP) 113/56 (75) Pulse Ox 90 O2 Delivery Nasal Cannula O2 Flow Rate 2.00 08/05/17 08/05/17 08/05/17 08/05/17 07:00 08:00 08:00 08:05 Temp 100.5 100.0 Pulse 87 88 Resp 18 B/P (MAP) 100/55 (70) Pulse Ox 90 90 O2 Delivery Nasal Cannula Nasal Cannula O2 Flow Rate 2.00 2.00 Weight (Pounds): 142 Weight (Ounces): 0.0 Weight (Calculated Kilograms): 64.466648 Constitutional: No appears stated age, No AAO x 3, No apparent distress, No PERRL, No well-developed, No well-nourished, No other Respiratory: No accessory muscle use, No respiratory distress, No chest tender , No chest expansion is symmetric, No chest is bilaterally symmetric, No lungs clear to percussion, No lungs clear to auscultation, No crackles, No rhonchi, No rales, No stridor, No wheezing, No pleural rub, No other Cardiovascular: regular rate-rhythm, No irregularly irregular, No extra beats, No parasternal heave is noted, No JVD, No edema, No bradycardia, No tachycardia , No point of maximal impulse, No cardiac thrills are palpable, S1 and S2, No gallop/S3, No gallop/S4, No diastolic murmur, No systolic murmur, No friction rub, No click, No other Gastrointestional: No tender, No soft, No round, No distended, No pulsatile mass, No organomegaly, No guarding, No rebound, No tenderness, No hernia, No mass, No audible bowel sounds, No abnormal bowel sounds, No abdominal bruits, No spleenomegaly, No other Extremities: No normal range of motion, No non-tender, No normal inspection, No pedal edema, No calf tenderness, No normal capillary refill, No pelvis stable , No calf tenderness, No inflammation, No pedal edema, No slow capillary refill , No swelling, No other, No abrasion, No clubbing, No cyanosis, No ecchymosis, No laceration, No no lower extremity edema bilateral, No significant edema, No tenderness, No wound Neurologic/Psychiatric: No albacore fishing boat crewman II-XII nml as tested, No no motor/sensory deficits, No alert, No normal mood/affect, No oriented x 3, No abnormal cerebellar tests, No abnormal albacore fishing boat crewman II-XII, No abnormal gait, No aphasia, No EOM palsy, No facial droop, No motor weakness, No sensory deficit, No depressed affect, No disoriented x 3, No other, No grossly intact, No power is 5/5 both on sides Skin: normal color, warm/dry, No cyanosis, No cool, No diaphoresis, No damp, No ecchymosis, No jaundice, No mottled, No pallor, No rash, No tattoos/piercings , No ulcerations, No rash on exposed areas, No ulcerations on exposed areas, No other Results/Procedures: Labs Laboratory Tests 08/05/17 04:47: White Blood Count 7.7, Red Blood Count 2.24L, Hemoglobin 7.0L, Hematocrit 23L, Mean Corpuscular Volume 100H, Mean Corpuscular Hemoglobin 31, Mean Corpuscular Hemoglobin Concent 31L, Red Cell Distribution Width 14.7H, Platelet Count 99L, Mean Platelet Volume 11.2H, Neutrophils (%) (Auto) 67, Lymphocytes (%) (Auto) 15 , Monocytes (%) (Auto) 17H, Eosinophils (%) (Auto) 1, Basophils (%) (Auto) 0, Neutrophils # (Auto) 5.1, Lymphocytes # (Auto) 1.1, Monocytes # (Auto) 1.3H, Eosinophils # (Auto) 0.1, Basophils # (Auto) 0.0, Prothrombin Time 32.6H, INR Comment 3.2H, Sodium Level 138, Potassium Level 4.3, Chloride Level 101, Carbon Dioxide Level 29, Anion Gap 8, Blood Urea Nitrogen 19H, Creatinine 1.45H, Estimat Glomerular Filtration Rate 35, BUN/Creatinine Ratio 13, Glucose Level 100, Calcium Level 8.4L, Total Bilirubin 0.9, Aspartate Amino Transf (AST/SGOT) 15, Alanine Aminotransferase (ALT/SGPT) 11, Alkaline Phosphatase 50, Total Protein 6.4, Albumin 3.3 Microbiology 08/03/17 Blood Culture - Preliminary, Resulted No growth A/P: Assessment/Dx: Status post-aortic valve replacement with metallic valve. Congestive heart failure. ICD Plan: AVR: Continue Coumadin for AVR. INR target 2.5-3.0. Congestive heart failure: Elevated BNP. IV lasix. Echocardiogram showed reduced ejection fraction. ICD: will try to get most recent device interrogation. Significant RV pacing noted on EKG. Anemia On respiratory treatments as well Thank you for your consultation. Please call me if you have any questions. Zack Orozco MD, FACP, FACC, FSCAI, FHRS, CCDS Interventional Cardiology Cardiac Electrophysiology Vascular Medicine and Endovascular Interventions Cristiano OROZCO MD Aug 05, 2017 1:08 pm
[2017-08-05 15:55] VITALS: BP 106/54
[2017-08-05] MEDS: warFARin 2 MG (COUMADIN) TAB PO SCH (17:22)
--- NOTE | 2017-08-05 18:52 | Diagnostic Imaging Report ---
INDICATION: Dyspnea COMPARISON: 08/03/2017 TECHNIQUE: Two radiographs of the chest dated 08/05/2017. FINDINGS: Postsurgical changes of median sternotomy. Pacer device is again noted with a battery pack overlying the left chest. The cardiac silhouette is enlarged, though stable from the prior examination. Pulmonary vascular congestion is again identified. Background interstitial opacities appear relatively stable compared to the prior examination. Small bilateral pleural effusions are again identified, right greater than left. The right-sided pleural effusion has minimally increased since the prior examination. No definite new focal pulmonary opacity. No pneumothorax. Osseous structures appear stable. IMPRESSION: Slightly increasing right-sided pleural effusion with stable cardiomegaly, pulmonary vascular congestion, and interstitial edema. Dictated by: Dictated on workstation # [id number]
[2017-08-05 19:40] VITALS: BP 106/60
[2017-08-05] MEDS: KCL 10 MEQ TAB (MICRO K) PO SCH (20:26)
[2017-08-05] MEDS: rOPINIRole 0.25 MG (REQUIP) TAB PO SCH (20:26)
[2017-08-06 00:34] VITALS: BP 104/55
[2017-08-06] MEDS: ACETAMINOPHEN 500 MG TAB (TYLENOL) PO PRN (04:02)
[2017-08-06 04:20] VITALS: BP 122/57
[2017-08-06] MEDS: PANTOPRAZOLE 40 MG (PROTONIX) TAB PO SCH (06:12)
[2017-08-06] MEDS: FUROSEMIDE 40 MG/4 ML INJ (LASIX) IV SCH ×2 (06:12→17:48)
[2017-08-06] MEDS: LEVOTHYROXINE 100 MCG (LEVOTHROID) TAB PO SCH (06:12)
[2017-08-06] MEDS: CATHETER FLUSH 10 ML SYR IV SCH ×3 (06:13→21:38)
[2017-08-06 06:36] LABS: BASOPHILS % (AUTO) 0 % (0-10); EOSINOPHILS # (AUTO) 0.3 10^3/uL (0.0-0.3); EOSINOPHILS % (AUTO) 4 % (0-10); LYMPHOCYTES # (AUTO) 1.2 X 10^3 (1.0-4.0); LYMPHOCYTES % (AUTO) 18 % (12-44); MEAN CORPUSCULAR HEMOGLOBIN 31 PG (25-34); MEAN CORPUSCULAR HGB CONC 31 G/DL (32-36); MEAN CORPUSCULAR VOLUME 102 FL (80-99); MEAN PLATELET VOLUME 11.2 FL (7.4-10.4); MONOCYTES # (AUTO) 0.8 X 10^3 (0.0-1.0); MONOCYTES % (AUTO) 11 % (0-12); NEUTROPHILS # (AUTO) 4.7 X 10^3 (1.8-7.8); NEUTROPHILS % (AUTO) 67 % (42-75); PLATELET COUNT 140 10^3/uL (130-400); RED BLOOD COUNT 2.39 10^6/uL (4.35-5.85); RED CELL DISTRIBUTION WIDTH 14.7 % (10.0-14.5)
[2017-08-06] MEDS: MECLIZINE 25 MG (ANTIVERT) TAB PO PRN ×2 (06:41→21:38)
[2017-08-06 06:54] LABS: ALBUMIN 3.5 GM/DL (3.2-4.5); BILIRUBIN,TOTAL 0.7 MG/DL (0.1-1.0); CALCIUM 8.5 MG/DL (8.5-10.1); CREATININE SERUM 1.41 MG/DL (0.60-1.30); POTASSIUM 4.2 MMOL/L (3.6-5.0)
[2017-08-06 08:00] VITALS: BP 100/55
[2017-08-06] MEDS: ISOSORBIDE MONONITRATE 30 MG (IMDUR) TAB PO SCH (08:38)
[2017-08-06] MEDS: SACUBITRIL/VALSARTAN 24/26 MG (ENTRESTO) TABLET PO SCH ×2 (08:38→21:49)
[2017-08-06] MEDS: DIGOXIN 0.125 MG (LANOXIN) TAB PO SCH (08:38)
[2017-08-06] MEDS: MEXILETINE 150 MG (MEXITIL) CAPSULE PO SCH (08:38)
[2017-08-06] MEDS: LORATADINE (CLARITIN) 10 MG TAB PO SCH (08:38)
[2017-08-06] MEDS: meTOproloL SUCCINATE 50 MG (TOPROL XL) TAB PO SCH (08:38)
--- NOTE | 2017-08-06 09:14 | Physical Therapy Evaluation ---
PT Evaluation-General Medical Diagnosis Admission Date Aug 03, 2017 at 11:20 Medical Diagnosis: Acute Heart Failure Onset Date: Aug 04, 2017 Therapy Diagnosis Therapy Diagnosis: weakness Height/Weight Height (Feet): 5 Height (Inches): 6.00 Weight (Pounds): 142 Weight (Ounces): 0.0 Precautions Precautions/Isolations: Fall Prevention, Standard Precautions Weight Bear Status Right Lower Extremity: Right Full Weight Bearing Left Lower Extremity: Left Full Weight Bearing Referral Physician: P[place]e Reason for Referral: Evaluation/Treatment Medical History Pertinent Medical History: Atrial Fib, CAD, Heart Failure, HTN, Hypothroidism, OA, Renal Insufficiency Additional Medical History previous pneumonia, gallbladder disease Reviewed History: Yes Social History Home: Single Level Current Living Status: Alone Entry Into Home: Stairs With Railing PT Steps Into Home: 3 Prior/Core FIM Prior Level of Function Functional [place] Measure 0=Not Assessed/NA 4=Minimal Assistance 1=Total Assistance 5=Supervision or Setup 2=Maximal Assistance 6=Modified [place] 3=Moderate Assistance 7=Complete [place] Bed Mobility: 7 Transfers (B,C,W/C) (FIM): 7 Gait: 6 Locomotion: 6 Patient owns a walker. 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 PT Evaluation-Current Subjective Patient family member is present. She reports most of the patient current status compared to typical performance with ambulation. Patient is in bed and agrees to PT. Patient family member states she has been getting up to go to the bathroom and sit in the chair a couple times a day. Pain Numeric Pain Scale: 0-No Pain Location: No Pain Reported Pt/Family Goals Patient wishes to return to normal health and return home. Objective Patient Orientation: Normal For Age Problem Solving: Fair Attachments: Oxygen Patient qualified for 3.0 L O2 in the home ROM/Strength ROM Upper Extremities WNL ROM Lower Extremities WNL Strength Upper Extremities WNL Strength Lower Extremities WNL Integumentary/Posture Bowel Incontinence: No Bladder Incontinence: No Neuromuscular (Tone, Coordination, Reflexes) Normal Sensory Vision: Wears Glasses Hearing: Functional Hand Dominance: Right Sensation Right Upper Extremit: Intact Sensation Left Upper Extremity: Intact Sensation Right Lower Extremit: Intact Sensation Left Lower Extremity: Intact Transfers Functional [place] Measure 0=Not Assessed/NA 4=Minimal Assistance 1=Total Assistance 5=Supervision or Setup 2=Maximal Assistance 6=Modified [place] 3=Moderate Assistance 7=Complete [place] Transfers (B, C, W/C) (FIM): 5 Scootin Rollin Supine to/from Sit: 5 Sit to/from Stand: 5 Patient performed all transfers and mobility with SBA from PT safely. Pt SBA due to family member stating she has not been up and moving much lately. Gait Mode of Locomotion: Walk Anticipated Mode of Locomotion: Walk Gait (FIM): 6 Distance: >500' Gait Level of Assist: 6 Gait Assistive Device: FWW Comments/Gait Description Patient ambulates safely with a FWW. PT walks beside patient with O2 tank. Balance Sitting Static: Normal Sitting Dynamic: Normal Standing Static: Normal Standing Dynamic: Normal Assessment/Needs Patient has good tolerance for exercise with supplemental oxygen. PT consulted with family member who agreed to get patient up and walking multiple times throughout the day. PT determines that patient may be dismissed from PT services at this point due to her current status and adequate family support and presence. Rehab Potential: Good PT Plan Problem List Problem List: Activity Tolerance Treatment/Plan Treatment Plan: Discontinue PT Treatment Plan: Other Treatment Duration: Aug 06, 2017 Frequency: Estimated Hrs Per Day: Other Patient and/or Family Agrees t: Yes Patient is dismissed from therapeutic interventions on this date. Safety Risks/Education Patient Education: Gait Training, Reviewed Precautions, Safety Issues Teaching Recipient: Patient Teaching Methods: Demonstration, Discussion Response to Teaching: Verbalize Understanding, Return Demonstration Discharge Recommendations Therapy D/C Recommendations: Home Independently Equpiment Recommendations-D/C: Front Wheeled Walker Time/GCodes Time In: 837 Time Out: 850 Total Billed Treatment Time: 13 Total Billed Treatment 1 visit EVM 13 min KATHERINE RUTHERFORD PT Aug 06, 2017 09:14
--- NOTE | 2017-08-06 09:33 | Cardiology Progress Note ---
Subjective Date Seen by Provider: Aug 06, 2017 Time Seen by Provider: 09:29 Subjective/Events-last exam Patient is sitting in a chair, received physical therapy earlier, reporting improvement in her symptoms, still having some shortness of breath but overall better today. No chest pain was reported. Review of Systems General: No Chills, No Night Sweats, No Fatigue, No Malaise, No Appetite, No Other HEENT: No Head Aches, No Visual Changes, No Eye Pain, No Ear Pain, No Dysphasia , No Sinus Congestion, No Post Nasal Drip, No Sore Throat, No Other Pulmonary: Dyspnea, Cough, No Pleuritic Chest Pain, No Other Cardiovascular: Edema, No: Chest Pain, Palpitations, Orthopnea, Paroxysmal Noc. Dyspnea, Lt Headedness, Other Objective-Cardiology Exam Last Set of Vital Signs Vital Signs 08/03/17 08/06/17 14:48 08:00 Temp 99.3 Pulse 87 Resp 16 B/P (MAP) 100/55 (70) Pulse Ox 98 O2 Delivery Nasal Cannula O2 Flow Rate 2.00 FiO2 28 Capillary Refill : Less Than 3 Seconds I&O Intake and Output 08/07/17 00:00 Intake Total 150 ml Output Total 220 ml Balance -70 ml Intake Oral 150 ml Output Urine Total 220 ml # Voids 1 General: Alert, Oriented X3, Cooperative HEENT: Atraumatic, PERRLA Neck: Supple, No JVD, No Thyromegaly Lungs: Normal Air Movement, Other (Lateral rhonchi, expiratory wheezing) Heart: Regular Rate, Normal S1, Normal S2, Other Abdomen: Normal Bowel Sounds, Soft, No Tenderness, No Hepatosplenomegaly, No Masses Extremities: No Clubbing, No Cyanosis, Normal Pulses, No Tenderness/Swelling, Other (Mild peripheral edema, nonhealing ulcer on the right leg) Skin: No Rashes, Other (Ulcer on the foot) Neuro: Normal Gait, Normal Speech, Strength at 5/5 X4 Ext, Normal Tone, Sensation Intact Psych/Mental Status: Mental Status NL, Mood NL Results Lab Laboratory Tests 08/06/17 05:57 A/P-Cardiology Admission Diagnosis Shortness of breath Congestive heart failure Anemia Aortic valve replacement Assessment/Plan Shortness of breath, acute on chronic congestive heart failure left ventricular systolic dysfunction, ejection fraction 30-35 percent, history of ENGINE DYNAMOMETER TESTER-D implant in August 2012, continue on Lasix 40 mg IV twice daily and monitor, may require continuous home oxygen instead of only at night, being tested at this time. Status post episode of chest pain, reporting improvement, no further episodes were reported. Anemia, slightly worse today. Continue to monitor History of aortic valve replacement in 1998 with metallic valve on Coumadin therapy with therapeutic INR, monitored by Dr. Prabhakar. Echocardiogram showed ejection fraction 30-35 percent, severely dilated left atrium, moderate severe mitral stenosis, moderate to severe mitral regurgitation, prosthetic valve in the aortic position functioning normally, PA pressure 45 mmHg done in December 2016 , continue to monitor INR Nonhealing foot ulcer, patient has venous insufficiency on the right side that required ablation, peripheral angiogram showed a gradient across the SFA of 50- 60 mmHg, severe stenosis at the proximal anterior tibial artery on the right side underwent balloon angioplasty using 3.0 x 80 Topping with multiple inflation with mild residual stenosis, total occlusion at the ankle level and at the arch level, total occlusion of the tibioperoneal trunk with collateral filling the posterior tibial through the right anterior tibial, heavily calcified right SFA with moderate to severe stenosis with a gradient of 50-60 mmHg across the mid SFA. Diffuse disease at the left SFA, vision at the trifurcation level with collateral at the left lower extremity, diffuse atherosclerotic disease at the abdominal aorta. LINDA was done in the office and showed improvement. Continue to monitor Congestive heart failure status post implantation of ENGINE DYNAMOMETER TESTER-D-D in August 2012, echocardiogram was in December 2016 showing ejection fraction 30-35 percent. Complaining of some increased dyspnea today. Took extra dose of Lasix this morning. 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 discussed with Dr. Page, he recommended medical therapy at this time considering her to be high risk for morbidity and mortality if she undergoes valve surgery. She is not a candidate for mitral clip secondary to her mitral stenosis she was referred back to me for continuous following and we will contact him if needed Coronary artery disease, small vessel disease, nonobstructive disease, the prosthetic valve was functioning normally. Pulmonary artery pressure was 50/26 , pulmonary capillary wedge pressure 35, right ventricular pressure 53/17. cardiac catheterization was done in September 2014. Stress test done in December 2016 showing no ischemia or infarction, EF 41 percent, continue to monitor Carotid stenosis, continue to monitor, followed by heart and vascular care. 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 followed and monitored by heart and vascular care. Hypertension-controlled,continue to monitor BP/HR. Hyperlipidemia, continue on current medication monitor lipids Clinical Quality Measures DVT/VTE Risk/Contraindication: Risk Factor Score Per Nursin RFS Level Per Nursing on Admit: 2=Moderate PRANEETH SHUKLA MD Aug 06, 2017 09:33
--- NOTE | 2017-08-06 10:38 | Progress Note-Hospitalist ---
Subjective HPI/CC On Admission Date Seen by Provider: Aug 06, 2017 Time Seen by Provider: 10:25 CC: Dyspnea due to volume overload HPI: This is an 82yoWF clinic patient of Dr Prabhakar w/h/o severe CAD and SSS requiring pacemaker who presents to the ER w/c/o SOB. She had been on Entresto by Dr Parker and had made a real impact on the amount of hospital admits since she had not been admitted for the 1 1/s yrs. She was found to have pulmonary edema on CXR and elevated BNP which has responded to IV Lasix under Cardiology direction Dr Orozco. Currently she denies any pain and feels like she is breathing better. I reconciled all of her home meds yesterday and she is reporting improved nausea but seems to be caused by the Albuterol so that was changed to Xopenex to evaluate the resolution of that side effect. Low grade fever is noted but wbc count is nl and CXR did not reveal infiltrate. Hgb is very low so will be checking iron and ferritin and empirically giving IV Iron. Subjective/Events-last exam Pt reports feeling better today and breathing better. States when she goes home daughter will stay with her to help take care of her. Objective Exam Vital Signs Vital Sign - Last 12Hours 08/03/17 08/03/17 09:30 13:05 Temp 98.7 Pulse 85 Resp 18 B/P (MAP) 122/67 (85) Pulse Ox 97 O2 Delivery Nasal Cannula O2 Flow Rate 2.00 FiO2 28 Capillary Refill : Less Than 3 Seconds General Appearance: No Apparent Distress, WD/WN Respiratory: Lungs Clear, No Respiratory Distress Cardiovascular: Regular Rate, Rhythm, Systolic Murmur Gastrointestinal: Normal Bowel Sounds, Non Tender, Soft Extremity: Non Tender, No Calf Tenderness Neurologic/Psychiatric: Alert, Oriented x3 Results/Procedures Lab Laboratory Tests 08/06/17 05:57 Assessment/Plan Assessment and Plan Assess & Plan/Chief Complaint acutely decompensated heart failure Diagnosis/Problems Diagnosis/Problems (1) Acute exacerbation of congestive heart failure Status: Acute Assessment & Plan: EF 30% Follows with Dr Parker, consulted Continue IV lasix Qualifiers: Qualified Codes: I50.23 - Acute on chronic systolic (congestive) heart failure (2) Mitral valve replaced Status: Chronic Assessment & Plan: s/p mechanical valve replacement INR 3.2 (3) Chronic anemia Status: Acute Assessment & Plan: Stable, up from yesterday (4) Foot ulcer Status: Acute Assessment & Plan: Follows with wound clinic Will consult Qualifiers: (5) Confusion Status: Acute Assessment & Plan: Noted by son Oriented x4 Will check UA No focal deficits to suggest CVA (6) PAD (peripheral artery disease) Status: Chronic Assessment & Plan: Follows with Elena (7) Prophylactic measure Assessment & Plan: On Warfarin for MVR Saline Lock [facility] VENANCIO Charles MD Aug 06, 2017 10:38 am
[2017-08-06 12:00] VITALS: BP 94/51
--- NOTE | 2017-08-06 12:16 | Occupational Therapy Eval ---
OT Evaluation-General/PLF Medical Diagnosis Admission Date Aug 03, 2017 at 11:20 Medical Diagnosis: Acute Heart Failure Onset Date: Aug 04, 2017 Therapy Diagnosis Therapy Diagnosis: Weakness Height/Weight Height (Feet): 5 Height (Inches): 6.00 Weight (Pounds): 142 Weight (Ounces): 0.0 Precautions Precautions/Isolations: Fall Prevention, Standard Precautions Safety Interventions: None Referral Physician: Peewee Referral Reason: Activity Tolerance, Self Care, Evaluation/Treatment, Strengthening/ROM Medical History Pertinent Medical History: Atrial Fib, CAD, Heart Failure, HTN, Hypothroidism, OA, Renal Insufficiency Additional Medical History Dementia, Mitral valve stenosis, aortic stenosis Current History Pt. states that she became short of air at home. Wears 2L 02 continuously. Reviewed History: Yes Social History Home: Single Level Current Living Status: Alone Entry Into Home: Stairs With Railing Steps Into Home: 3 ADL-Prior Level of Function ADL PLOF Comments Pt. states that she was independent with basic self care skills. Wears oxygen. Still drives. Completes bathing and dressing independently. DME/Equipment: Bath Chair, Tub/Shower DME/Equipment Comments Pt. has a walker and cane, but does not use them. Drive Self: Yes OT Current Status Subjective No pain reported. Appearance Pt. is up in chair. States that she was "just getting ready to go back to bed. " Mental Status/Objective Patient Orientation: Person, Place, Time, Situation Attachments: Oxygen Current Glasses/Contacts: Yes Hand Dominance: Right Upper Extremity ROM WFL Upper Extremity Strength WFL ADL-Treatment Functional [place] Measure 0=Not Assessed/NA 4=Minimal Assistance 1=Total Assistance 5=Supervision or Setup 2=Maximal Assistance 6=Modified [place] 3=Moderate Assistance 7=Complete IndependenceIRFPAI Quality Coding Scale 6 Independent with activity with or without an assistive device 5 Patient requires set up or clean up by helper. Patient completes activity by themselves 4 Supervision or touching assist (CGA). [place] provide cues , steadying assist 3 The helper provides less than half the effort to complete the activity 2 The helper provides more than half the effort to complete the activity 1 Dependent. The helper does all the effort to complete an activity 7 Patient refused to complete or attempt activity 9 The patient did not perform the activity before the current illness or injury 88 Not attempted due to Medical conditions or safety concerns Lower Body Dressing (FIM): 7 (Pt. is able to doff/don socks with no difficulty. ) Transfers (B, C, W/C) (FIM): 6 (Pt. stands with with no difficulty and transfers into bed using bed rails. Pt. is able to bring her feet into bed with no difficulty, and pull her covers up.) Other Treatments Pt. is up in chair when OT enters room. OT explains purpose of therapy. Pt. verbalizes understanding. OT offers to assist pt. with shower. Pt. states that she would rather wait for her daughter to assist her, who is to bring her clean clothing. OT also offers to assist with simple spongebath, in which pt. also declined and states again that she would like to wait for her daughter. Pt. states that she was just up walking with PT. States that she still gets a little short of air, but that she is feeling much better. Pt. does practice LE dressing with OT, in which she completes independently. Requests to go back to bed. Pt. is able to stand out of chair with walker, and transfer to bed, using bed rail only. Pt. is able to climb into bed with no difficulty, even managing oxygen tubing. OT asks pt. if she feels weak, or if she feels that she needs continued occupational therapy to increase overall strength for home tasks. Pt. states that she does not. States that she would rather her daughter help with ADLs, and that she should be leaving soon. All needs met up in room and pt. made comfortable. Education OT Patient Education: Correct positioning, Modified ADL techniques, Progress toward Goal/Update tx plan, Purpose of tx/functional activities, Reviewed precautions, Rehab process, Transfer techniques Teaching Recipient: Patient Teaching Methods: Demonstration, Discussion Response to Teaching: Verbalize Understanding, Return Demonstration OT Short Term Goals Short Term Goals 1=Demonstrate adherence to instructed precautions during ADL tasks. 2=Patient will verbalize/demonstrate understanding of assistive devices/ modifications for ADL. 3=Patient will improve strength/tolerance for activity to enable patient to perform ADL's. OT [facility] Goals [facility] Goals Time Frame: Aug 06, 2017 Eating (FIM): 6 (Per pt. report) Lower Body Dressing(FIM): 7 (met) Transfers (B,C,W/C) (FIM): 6 (met) These goals have been met. No further OT goals at this time per pt. report. 1=Demonstrate adherence to instructed precautions during ADL tasks. 2=Patient will verbalize/demonstrate understanding of assistive devices/ modifications for ADL. 3=Patient will improve strength/tolerance for activity to enable patient to perform ADL's. OT Education/Plan Problem List/Assessment Assessment: No Skilled OT Needs ID'd Discharge Recommendations Plan/Recommendations: Discontinue OT Therapy D/C Recommendations: Home w/ Family Support Target Placement Home with family support per pt. request. Treatment Plan/Plan of Care Treatment,Training & Education: Yes Treatment Duration: Aug 06, 2017 Frequency: 1 time per week Estimated Hrs Per Day: .5 hour per day Agreement: Yes Rehab Potential: Good Time/GCodes Start Time: 09:35 Stop Time: 09:55 Total Time Billed (hr/min): 20 Billed Treatment Time 1, EVM x 20minutes NIXON HOOPER OT Aug 06, 2017 12:16
[2017-08-06] MEDS: IRON SUCROSE INJECTION 200 MG in NS (IVPB) 100 ML IV SCH (13:19)
[2017-08-06 15:58] LABS: BILIRUBIN,URINE NEGATIVE (NEGATIVE); KETONES,URINE NEGATIVE (NEGATIVE); LEUKOCYTE ESTERASE ,URINE 2+ (NEGATIVE); NITRITE,URINE NEGATIVE (NEGATIVE); PH,URINE 6 (5-9); PROTEIN,URINE NEGATIVE (NEGATIVE); UROBILINOGEN,URINE NORMAL (NORMAL)
[2017-08-06 16:00] VITALS: BP 103/58
[2017-08-06 16:05] LABS: SQUAMOUS EPITHELIAL CELL,UR 0-2 /HPF
[2017-08-06 16:08] LABS: FERRITIN 135.5 ng/mL (15.0-150.0)
[2017-08-06] MEDS ORDERED: warFARin 2 MG (COUMADIN) TAB PO SCH (18:00)
[2017-08-06 20:00] VITALS: BP 109/56
[2017-08-06] MEDS: rOPINIRole 0.25 MG (REQUIP) TAB PO SCH (21:38)
[2017-08-06] MEDS: KCL 10 MEQ TAB (MICRO K) PO SCH (21:38)
[2017-08-07] VITALS: BP 112/53
[2017-08-07 04:00] VITALS: BP 114/56
[2017-08-07] MEDS: SCOPOLAMINE 1.5 MG (TRANSDERM-SCOP) PATCH TOP SCH (05:16)
[2017-08-07 06:19] LABS: RED BLOOD COUNT 2.51 10^6/uL (4.35-5.85); RED CELL DISTRIBUTION WIDTH 14.7 % (10.0-14.5); WHITE BLOOD COUNT 6.4 10^3/uL (4.3-11.0)
[2017-08-07 06:34] LABS: INR 4.2 (0.8-1.4); PROTHROMBIN TIME PATIENT 40.3 SEC (12.2-14.7)
[2017-08-07] MEDS: LEVOTHYROXINE 100 MCG (LEVOTHROID) TAB PO SCH (06:39)
[2017-08-07] MEDS: PANTOPRAZOLE 40 MG (PROTONIX) TAB PO SCH (06:39)
[2017-08-07] MEDS: CATHETER FLUSH 10 ML SYR IV SCH ×3 (06:40→20:42)
[2017-08-07] MEDS: FUROSEMIDE 40 MG/4 ML INJ (LASIX) IV SCH ×2 (06:40→16:20)
[2017-08-07 06:42] LABS: ALBUMIN 3.5 GM/DL (3.2-4.5); BILIRUBIN,TOTAL 0.8 MG/DL (0.1-1.0); CALCIUM 8.8 MG/DL (8.5-10.1); CREATININE SERUM 1.24 MG/DL (0.60-1.30); POTASSIUM 4.2 MMOL/L (3.6-5.0)
[2017-08-07 06:50] LABS: DIGOXIN 1.24 NG/ML (0.80-2.00)
--- NOTE | 2017-08-07 07:56 | Diagnostic Imaging Report ---
INDICATION: Shortness of air. COMPARISON: 08/05/2017. FINDINGS: Unchanged marked cardiomegaly. Right mid and bilateral lower lung zone heterogeneous consolidations are unchanged. Stable small bilateral pleural effusions. No pneumothorax. Stable left pectoral pacemaker/ICD. IMPRESSION: No change since 08/05/2017 exam. Dictated by: Dictated on workstation # [id number]
[2017-08-07 08:00] VITALS: BP 123/58
--- NOTE | 2017-08-07 08:22 | Cardiology Progress Note ---
Subjective Date Seen by Provider: Aug 07, 2017 Time Seen by Provider: 08:18 Subjective/Events-last exam Patient is sitting in bed, mildly dyspneic. Denied any chest pain. Reporting improvement. Review of Systems General: No Chills, No Night Sweats, No Fatigue, No Malaise, No Appetite, No Other HEENT: No Head Aches, No Visual Changes, No Eye Pain, No Ear Pain, No Dysphasia , No Sinus Congestion, No Post Nasal Drip, No Sore Throat, No Other Pulmonary: Dyspnea, No Cough, No Pleuritic Chest Pain, No Other Cardiovascular: No: Chest Pain, Palpitations, Orthopnea, Paroxysmal Noc. Dyspnea, Edema, Lt Headedness, Other Objective-Cardiology Exam Last Set of Vital Signs Vital Signs 08/03/17 08/07/17 14:48 04:00 Temp 98.8 Pulse 83 Resp 19 B/P (MAP) 114/56 (75) Pulse Ox 95 O2 Delivery Nasal Cannula O2 Flow Rate 2.00 FiO2 28 Capillary Refill : Less Than 3 Seconds I&O Intake and Output 08/07/17 00:00 Intake Total 1115 ml Output Total 1340 ml Balance -225 ml Intake Oral 1015 ml IV Total 100 ml Output Urine Total 1340 ml # Voids 1 # Bowel Movements 1 General: Alert, Oriented X3, Cooperative HEENT: Atraumatic, PERRLA Neck: Supple, No JVD, No Thyromegaly Lungs: Normal Air Movement, Other (Lateral rhonchi, expiratory wheezing) Heart: Regular Rate, Normal S1, Normal S2, Other Abdomen: Normal Bowel Sounds, Soft, No Tenderness, No Hepatosplenomegaly, No Masses Extremities: No Clubbing, No Cyanosis, Normal Pulses, No Tenderness/Swelling, Other (Mild peripheral edema, nonhealing ulcer on the right leg) Skin: No Rashes, Other (Ulcer on the foot) Neuro: Normal Gait, Normal Speech, Strength at 5/5 X4 Ext, Normal Tone, Sensation Intact Psych/Mental Status: Mental Status NL, Mood NL Results Lab Laboratory Tests 08/07/17 05:35 A/P-Cardiology Admission Diagnosis Shortness of breath Congestive heart failure Anemia Aortic valve replacement Assessment/Plan Shortness of breath, acute on chronic congestive heart failure left ventricular systolic dysfunction, ejection fraction 30-35 percent, history of TEST EXAMINER-D implant in August 2012, continue on Lasix 40 mg IV twice daily and monitor, may require continuous home oxygen instead of only at night Status post episode of chest pain, reporting improvement, no further episodes were reported. Anemia, slightly worse today. Continue to monitor History of aortic valve replacement in 1998 with metallic valve on Coumadin therapy with therapeutic INR, monitored by Dr. Prabhakar. Echocardiogram showed ejection fraction 30-35 percent, severely dilated left atrium, moderate severe mitral stenosis, moderate to severe mitral regurgitation, prosthetic valve in the aortic position functioning normally, PA pressure 45 mmHg done in December 2016 , hold Coumadin now, continue to monitor INR Nonhealing foot ulcer, patient has venous insufficiency on the right side that required ablation, peripheral angiogram showed a gradient across the SFA of 50- 60 mmHg, severe stenosis at the proximal anterior tibial artery on the right side underwent balloon angioplasty using 3.0 x 80 [place] with multiple inflation with mild residual stenosis, total occlusion at the ankle level and at the arch level, total occlusion of the tibioperoneal trunk with collateral filling the posterior tibial through the right anterior tibial, heavily calcified right SFA with moderate to severe stenosis with a gradient of 50-60 mmHg across the mid SFA. Diffuse disease at the left SFA, vision at the trifurcation level with collateral at the left lower extremity, diffuse atherosclerotic disease at the abdominal aorta. LINDA was done in the office and showed improvement. 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 discussed with Dr. Page, he recommended medical therapy at this time considering her to be high risk for morbidity and mortality if she undergoes valve surgery. She is not a candidate for mitral clip secondary to her mitral stenosis she was referred back to me for continuous following and we will contact him if needed Coronary artery disease, small vessel disease, nonobstructive disease, the prosthetic valve was functioning normally. Pulmonary artery pressure was 50/26 , pulmonary capillary wedge pressure 35, right ventricular pressure 53/17. cardiac catheterization was done in September 2014. Stress test done in December 2016 showing no ischemia or infarction, EF 41 percent, continue to monitor Carotid stenosis, continue to monitor, followed by heart and vascular care. 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 followed and monitored by heart and vascular care. Hypertension-controlled,continue to monitor BP/HR. Hyperlipidemia, continue on current medication monitor lipids Clinical Quality Measures DVT/VTE Risk/Contraindication: Risk Factor Score Per Nursin RFS Level Per Nursing on Admit: 2=Moderate PRANEETH SHUKLA MD Aug 07, 2017 08:22
[2017-08-07] MEDS: MEXILETINE 150 MG (MEXITIL) CAPSULE PO SCH (08:37)
[2017-08-07] MEDS: LORATADINE (CLARITIN) 10 MG TAB PO SCH (08:37)
[2017-08-07] MEDS: SACUBITRIL/VALSARTAN 24/26 MG (ENTRESTO) TABLET PO SCH ×2 (08:37→20:41)
[2017-08-07] MEDS: DIGOXIN 0.125 MG (LANOXIN) TAB PO SCH (08:37)
[2017-08-07] MEDS: meTOproloL SUCCINATE 50 MG (TOPROL XL) TAB PO SCH (08:38)
[2017-08-07] MEDS: ISOSORBIDE MONONITRATE 30 MG (IMDUR) TAB PO SCH (08:38)
[2017-08-07] MEDS ORDERED: cefTRIAXone INJECTION 1,000 MG in NS (IVPB) 50 ML IV SCH (09:21)
[2017-08-07 12:00] VITALS: BP 117/56
--- NOTE | 2017-08-07 12:41 | Progress Note-Hospitalist ---
Subjective HPI/CC On Admission Date Seen by Provider: Aug 07, 2017 Time Seen by Provider: 10:00 CC: Dyspnea due to volume overload HPI: This is an 82yoWF clinic patient of Dr Prabhakar w/h/o severe CAD and SSS requiring pacemaker who presents to the ER w/c/o SOB. She had been on Entresto by Dr Parker and had made a real impact on the amount of hospital admits since she had not been admitted for the 1 1/s yrs. She was found to have pulmonary edema on CXR and elevated BNP which has responded to IV Lasix under Cardiology direction Dr Orozco. Currently she denies any pain and feels like she is breathing better. I reconciled all of her home meds yesterday and she is reporting improved nausea but seems to be caused by the Albuterol so that was changed to Xopenex to evaluate the resolution of that side effect. Low grade fever is noted but wbc count is nl and CXR did not reveal infiltrate. Hgb is very low so will be checking iron and ferritin and empirically giving IV Iron. Subjective/Events-last exam Pt reports feeling better than yesterday. She did get SOB when up to bathroom. Believes she has bedside commode at home though. Objective Exam Vital Signs Vital Sign - Last 12Hours 08/03/17 08/03/17 09:30 13:05 Temp 98.7 Pulse 85 Resp 18 B/P (MAP) 122/67 (85) Pulse Ox 97 O2 Delivery Nasal Cannula O2 Flow Rate 2.00 FiO2 28 Capillary Refill : Less Than 3 Seconds General Appearance: No Apparent Distress, WD/WN Respiratory: Lungs Clear, No Respiratory Distress Cardiovascular: Regular Rate, Rhythm, Systolic Murmur Gastrointestinal: Normal Bowel Sounds, Non Tender, Soft Extremity: Non Tender, No Calf Tenderness Neurologic/Psychiatric: Alert, Oriented x3 Results/Procedures Lab Laboratory Tests 08/07/17 05:35 Assessment/Plan Assessment and Plan Assess & Plan/Chief Complaint acutely decompensated heart failure Diagnosis/Problems Diagnosis/Problems (1) Acute exacerbation of congestive heart failure Status: Acute Assessment & Plan: EF 30% Follows with Dr Parker, consulted Continue IV lasix Hopefully home tomorrow Qualifiers: Qualified Codes: I50.23 - Acute on chronic systolic (congestive) heart failure (2) UTI (urinary tract infection) Assessment & Plan: e coli on urine culture Rocephin started 08/07 Qualifiers: Qualified Codes: N30.01 - Acute cystitis with hematuria (3) Mitral valve replaced Status: Chronic Assessment & Plan: s/p mechanical valve replacement INR 3.2 (4) Chronic anemia Status: Acute Assessment & Plan: Stable, up from yesterday (5) Foot ulcer Status: Acute Assessment & Plan: Follows with wound clinic Will consult Qualifiers: (6) Confusion Status: Resolved Assessment & Plan: Noted by son Oriented x4 No focal deficits to suggest CVA (7) PAD (peripheral artery disease) Status: Chronic Assessment & Plan: Follows with Elena (8) Prophylactic measure Assessment & Plan: On Warfarin for MVR Saline Lock [facility] VENANCIO Charles MD Aug 07, 2017 12:41 pm
[2017-08-07 15:30] VITALS: BP 106/51
[2017-08-07 20:00] VITALS: BP 115/54
[2017-08-07] MEDS: rOPINIRole 0.25 MG (REQUIP) TAB PO SCH (20:41)
[2017-08-07] MEDS: KCL 10 MEQ TAB (MICRO K) PO SCH (20:41)
[2017-08-07] MEDS: MECLIZINE 25 MG (ANTIVERT) TAB PO PRN (20:41)
[2017-08-08] VITALS: BP 104/54
[2017-08-08 04:00] VITALS: BP 112/64
[2017-08-08] MEDS: CATHETER FLUSH 10 ML SYR IV SCH (06:56)
[2017-08-08] MEDS: LEVOTHYROXINE 100 MCG (LEVOTHROID) TAB PO SCH (06:56)
[2017-08-08] MEDS: FUROSEMIDE 40 MG/4 ML INJ (LASIX) IV SCH (06:56)
[2017-08-08] MEDS: PANTOPRAZOLE 40 MG (PROTONIX) TAB PO SCH (06:56)
[2017-08-08 08:00] VITALS: BP 123/58
[2017-08-08] MEDS: meTOproloL SUCCINATE 50 MG (TOPROL XL) TAB PO SCH (08:51)
[2017-08-08] MEDS: MEXILETINE 150 MG (MEXITIL) CAPSULE PO SCH (08:51)
[2017-08-08] MEDS: DIGOXIN 0.125 MG (LANOXIN) TAB PO SCH (08:51)
[2017-08-08] MEDS: LORATADINE (CLARITIN) 10 MG TAB PO SCH (08:51)
[2017-08-08] MEDS: SACUBITRIL/VALSARTAN 24/26 MG (ENTRESTO) TABLET PO SCH (08:51)
[2017-08-08] MEDS: ISOSORBIDE MONONITRATE 30 MG (IMDUR) TAB PO SCH (08:52)
--- NOTE | 2017-08-08 08:54 | Cardiology Progress Note ---
Subjective Date Seen by Provider: Aug 08, 2017 Time Seen by Provider: 08:51 Subjective/Events-last exam Patient sitting up in bed, reports dyspnea is improved today. Denies any CP or dizziness. Review of Systems General: No Night Sweats, No Fatigue, No Malaise HEENT: No Visual Changes, No Dysphasia Pulmonary: No Dyspnea, No Cough Cardiovascular: No: Chest Pain, Palpitations, Paroxysmal Noc. Dyspnea, Edema Gastrointestinal: No: Nausea, Vomiting, Abdominal Pain Genitourinary: No Dysuria, No Frequency Musculoskeletal: No: neck pain, back pain Neurological: No: Weakness, Numbness, Change in speech Objective-Cardiology Exam Last Set of Vital Signs Vital Signs 08/03/17 08/08/17 14:48 08:00 Temp 98.6 Pulse 81 Resp 22 B/P (MAP) 123/58 (79) Pulse Ox 95 O2 Delivery Nasal Cannula O2 Flow Rate 3.00 FiO2 28 Capillary Refill : Less Than 3 Seconds I&O Intake and Output 08/08/17 00:00 Intake Total 1380 ml Output Total 1050 ml Balance 330 ml Intake Oral 1380 ml Output Urine Total 1050 ml General: Alert, Oriented X3, Cooperative HEENT: Atraumatic, PERRLA Neck: Supple, No JVD, No Thyromegaly Lungs: Normal Air Movement, Other (diminished breath sounds bibasilar) Heart: Regular Rate, Normal S1, Normal S2, Other Abdomen: Normal Bowel Sounds, Soft, No Tenderness, No Hepatosplenomegaly, No Masses Extremities: No Clubbing, No Cyanosis, Normal Pulses, No Tenderness/Swelling, Other (Mild peripheral edema, nonhealing ulcer on the right leg) Skin: No Rashes, Other (Ulcer on the foot) Neuro: Normal Gait, Normal Speech, Strength at 5/5 X4 Ext, Normal Tone, Sensation Intact Psych/Mental Status: Mental Status NL, Mood NL A/P-Cardiology Admission Diagnosis Shortness of breath Congestive heart failure Anemia Aortic valve replacement Assessment/Plan Shortness of breath, acute on chronic congestive heart failure left ventricular systolic dysfunction, ejection fraction 30-35 percent, history of COMPLETION MANAGER-D implant in August 2012, continue on Lasix 40 mg IV twice daily and monitor, slowly improving. Status post episode of chest pain, reporting improvement, no further episodes were reported. Anemia, H/H is stable. Continue to monitor History of aortic valve replacement in 1998 with metallic valve on Coumadin therapy with therapeutic INR, monitored by Dr. Prabhakar. Echocardiogram showed ejection fraction 30-35 percent, severely dilated left atrium, moderate severe mitral stenosis, moderate to severe mitral regurgitation, prosthetic valve in the aortic position functioning normally, PA pressure 45 mmHg done in December 2016 , hold Coumadin now, continue to monitor INR Nonhealing foot ulcer, patient has venous insufficiency on the right side that required ablation, peripheral angiogram showed a gradient across the SFA of 50- 60 mmHg, severe stenosis at the proximal anterior tibial artery on the right side underwent balloon angioplasty using 3.0 x 80 [place] with multiple inflation with mild residual stenosis, total occlusion at the ankle level and at the arch level, total occlusion of the tibioperoneal trunk with collateral filling the posterior tibial through the right anterior tibial, heavily calcified right SFA with moderate to severe stenosis with a gradient of 50-60 mmHg across the mid SFA. Diffuse disease at the left SFA, vision at the trifurcation level with collateral at the left lower extremity, diffuse atherosclerotic disease at the abdominal aorta. LINDA was done in the office and showed improvement. Continue to monitor Congestive heart failure status post implantation of COMPLETION MANAGER-D-D in August 2012, echocardiogram was in December 2016 showing ejection fraction 30-35 percent, continue on Lasix 40 mg IV twice a day today UTI- continue antibiotics. Management by hospitalist service. 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 discussed with Dr. Page, he recommended medical therapy at this time considering her to be high risk for morbidity and mortality if she undergoes valve surgery. She is not a candidate for mitral clip secondary to her mitral stenosis she was referred back to me for continuous following and we will contact him if needed Coronary artery disease, small vessel disease, nonobstructive disease, the prosthetic valve was functioning normally. Pulmonary artery pressure was 50/26 , pulmonary capillary wedge pressure 35, right ventricular pressure 53/17. cardiac catheterization was done in September 2014. Stress test done in December 2016 showing no ischemia or infarction, EF 41 percent, continue to monitor Carotid stenosis, continue to monitor, followed by heart and vascular care. 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 followed and monitored by heart and vascular care. Hypertension-controlled,continue to monitor BP/HR. Hyperlipidemia, continue on current medication monitor lipids Clinical Quality Measures DVT/VTE Risk/Contraindication: Risk Factor Score Per Nursin RFS Level Per Nursing on Admit: 2=Moderate THANH LWATON Aug 08, 2017 08:54
--- NOTE | 2017-08-08 10:39 | Discharge Summary-Hospitalist ---
Diagnosis/Chief Complaint Date of Admission Aug 03, 2017 at 11:20 Date of Discharge Discharge Date: Aug 08, 2017 Admission Diagnosis Assessment: Volume overload with known ischemic cardiomypathy patient Severe anemia likely of chronic disease and iron def HTN HLP CRI Debility Valvular heart disease SSS s/p pacemaker Current nausea Discharge Diagnosis acutely decompensated heart failure (1) UTI (urinary tract infection) Assessment & Plan: e coli ESBL+ on urine culture Will switch to Merrem Not sepsis- no WBC or fever (2) Acute exacerbation of congestive heart failure Status: Acute Assessment & Plan: EF 30% Follows with Dr Parker, consulted Continue IV lasix Hopefully home tomorrow (3) Mitral valve replaced Status: Chronic Assessment & Plan: s/p mechanical valve replacement INR 3.2 (4) Chronic anemia Status: Acute Assessment & Plan: Stable, up from yesterday (5) Foot ulcer Status: Acute Assessment & Plan: Follows with wound clinic Will consult (6) Confusion Status: Resolved Assessment & Plan: Noted by son Oriented x4 No focal deficits to suggest CVA (7) PAD (peripheral artery disease) Status: Chronic Assessment & Plan: Follows with Elena (8) Prophylactic measure Assessment & Plan: On Warfarin for MVR Saline Lock HH diet Discharge Summary Consultations Cardiology- Dr Parker Discharge Physical Examination Allergies: Coded Allergies: NKANo Known Allergies (Verified Allergy, Unknown, 11/14/05) Vitals & I&Os Vital Signs Date Time Temp Pulse Resp B/P (MAP) Pulse Ox O2 Delivery O2 Flow Rate FiO2 08/08/17 08:00 98.6 81 22 123/58 (79) 95 Nasal Cannula 3.00 08/03/17 14:48 28 Hospital Course Pt admitted for acutely decompensated heart failure. Responded well to lasix for diuresis. Developed some confusion and UA obtained which revealed ESBL e coli. She was evaluated for swing bed status for group home antibiotics and was transitioned to SWB for duration. Labs (last 24 hrs) Microbiology 08/03/17 Blood Culture - Preliminary, Resulted No growth 08/06/17 Urine Culture - Final, Complete Escherichia Coli Discharge Home Medications: Active Scripts Active Reported Pantoprazole Sodium 40 Mg Tablet.dr 40 Mg PO DAILY Furosemide 40 Mg Tablet 40 Mg PO DAILY PRN MAY TAKE ADDITIONAL DOSE IF NEEDED FOR SWELLING Klor-Con Sprinkle (Potassium Chloride) 10 Meq Capsule.er 10 Meq PO HS Tramadol HCl 50 Mg Tablet 50 Mg PO Q6H PRN Mucinex (Guaifenesin) 600 Mg Tab.er.12h 600 Mg PO BID PRN Metoprolol Succinate 50 Mg Tab.er.24h 50 Mg PO DAILY Isosorbide Mononitrate ER (Isosorbide Mononitrate) 30 Mg Tab.er.24h 15 Mg PO DAILY TAKES 1/2 (30MG) TABLET Entresto 24 mg-26 mg Tablet (Sacubitril/Valsartan) 1 Each Tablet 1 Tab PO BID Furosemide 40 Mg Tablet 40 Mg PO BID Warfarin Sodium 2 Mg Tablet 4 Mg PO SUTUTHFRSA TAKES 2 (2MG) TABLETS Acetaminophen Extra Strength (Acetaminophen) 500 Mg Tablet 500-1,000 Mg PO Q4H PRN Ropinirole HCl 0.5 Mg Tablet 0.5 Mg PO BID PRN Loratadine 10 Mg Tablet 10 Mg PO DAILY Ropinirole HCl 0.5 Mg Tablet 0.5 Mg PO HS Jantoven (Warfarin Sodium) 2 Mg Tablet 2 Mg PO MOWE Levothyroxine Sodium 100 Mcg Tablet 100 Mcg PO DAILY Mexiletine HCl 150 Mg Cap 150 Mg PO DAILY Meclizine HCl 25 Mg Tablet 25 Mg PO TID PRN Nitrostat (Nitroglycerin) 0.4 Mg Tab.subl 0.4 Mg SL UD PRN Digoxin 125 Mcg Tablet 125 Mcg PO DAILY Instructions to patient/family Please see electronic discharge instructions given to patient. Clinical Quality Measures DVT/VTE Risk/Contraindication: Risk Factor Score Per Nursin RFS Level Per Nursing on Admit: 2=Moderate Copy Copies To 1: PRANEETH PARKER MD; RUSTAM CALI DO Problem Qualifiers (1) UTI (urinary tract infection): Urinary tract infection type: acute cystitis Hematuria presence: with hematuria Qualified Codes: N30.01 - Acute cystitis with hematuria (2) Acute exacerbation of congestive heart failure: Congestive heart failure type: systolic Qualified Codes: I50.23 - Acute on chronic systolic (congestive) heart failure (3) Foot ulcer: Non-pressure ulcer stage: unspecified non-pressure ulcer stage VENANCIO ARREAGA MD Aug 08, 2017 10:39
--- NOTE | 2017-08-08 10:40 | Cardiology Progress Note ---
Subjective Date Seen by Provider: Aug 08, 2017 Time Seen by Provider: 10:35 Subjective/Events-last exam patient is laying down in bed, feeling better, breathing better, denied any chest pain or shortness of breath at this time. Review of Systems General: No Chills, No Night Sweats, No Fatigue, No Malaise, No Appetite, No Other HEENT: No Head Aches, No Visual Changes, No Eye Pain, No Ear Pain, No Dysphasia , No Sinus Congestion, No Post Nasal Drip, No Sore Throat, No Other Pulmonary: No Dyspnea, No Cough, No Pleuritic Chest Pain, No Other Cardiovascular: No: Chest Pain, Palpitations, Orthopnea, Paroxysmal Noc. Dyspnea, Edema, Lt Headedness, Other Objective-Cardiology Exam Last Set of Vital Signs Vital Signs 08/03/17 08/08/17 14:48 08:00 Temp 98.6 Pulse 81 Resp 22 B/P (MAP) 123/58 (79) Pulse Ox 95 O2 Delivery Nasal Cannula O2 Flow Rate 3.00 FiO2 28 Capillary Refill : Less Than 3 SecondsLess Than 3 Seconds I&O Intake and Output 08/08/17 00:00 Intake Total 1380 ml Output Total 1050 ml Balance 330 ml Intake Oral 1380 ml Output Urine Total 1050 ml General: Alert, Oriented X3, Cooperative HEENT: Atraumatic, PERRLA Neck: Supple, No JVD, No Thyromegaly Lungs: Clear to Auscultation, Normal Air Movement Heart: Regular Rate, Normal S1, Normal S2, Other (metallic click) Abdomen: Normal Bowel Sounds, Soft, No Tenderness, No Hepatosplenomegaly, No Masses Extremities: No Clubbing, No Cyanosis, Normal Pulses, No Tenderness/Swelling, Other (Mild peripheral edema, nonhealing ulcer on the right leg) Skin: No Rashes, Other (Ulcer on the foot) Neuro: Normal Gait, Normal Speech, Strength at 5/5 X4 Ext, Normal Tone, Sensation Intact Psych/Mental Status: Mental Status NL, Mood NL A/P-Cardiology Admission Diagnosis Shortness of breath Congestive heart failure Anemia Aortic valve replacement Assessment/Plan Shortness of breath, acute on chronic congestive heart failure left ventricular systolic dysfunction, ejection fraction 30-35 percent, history of HOUSING MANAGEMENT OFFICER-D implant in August 2012, I will change Lasix to oral and monitor her tolerance and response Status post episode of chest pain, reporting improvement, no further episodes were reported. Anemia, H/H is stable. Continue to monitor History of aortic valve replacement in 1998 with metallic valve on Coumadin therapy with therapeutic INR, monitored by Dr. Prabhakar. Echocardiogram showed ejection fraction 30-35 percent, severely dilated left atrium, moderate severe mitral stenosis, moderate to severe mitral regurgitation, prosthetic valve in the aortic position functioning normally, PA pressure 45 mmHg done in December 2016 , hold Coumadin now, continue to monitor INR Nonhealing foot ulcer, patient has venous insufficiency on the right side that required ablation, peripheral angiogram showed a gradient across the SFA of 50- 60 mmHg, severe stenosis at the proximal anterior tibial artery on the right side underwent balloon angioplasty using 3.0 x 80 [place] with multiple inflation with mild residual stenosis, total occlusion at the ankle level and at the arch level, total occlusion of the tibioperoneal trunk with collateral filling the posterior tibial through the right anterior tibial, heavily calcified right SFA with moderate to severe stenosis with a gradient of 50-60 mmHg across the mid SFA. Diffuse disease at the left SFA, vision at the trifurcation level with collateral at the left lower extremity, diffuse atherosclerotic disease at the abdominal aorta. LINDA was done in the office and showed improvement. Continue to monitor Congestive heart failure status post implantation of HOUSING MANAGEMENT OFFICER-D-D in August 2012, echocardiogram was in December 2016 showing ejection fraction 30-35 percent, change Lasix to oral UTI- continue antibiotics. Management by hospitalist service. 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 discussed with Dr. Page, he recommended medical therapy at this time considering her to be high risk for morbidity and mortality if she undergoes valve surgery. She is not a candidate for mitral clip secondary to her mitral stenosis she was referred back to me for continuous following and we will contact him if needed Coronary artery disease, small vessel disease, nonobstructive disease, the prosthetic valve was functioning normally. Pulmonary artery pressure was 50/26 , pulmonary capillary wedge pressure 35, right ventricular pressure 53/17. cardiac catheterization was done in September 2014. Stress test done in December 2016 showing no ischemia or infarction, EF 41 percent, continue to monitor Carotid stenosis, continue to monitor, followed by heart and vascular care. 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 followed and monitored by heart and vascular care. Hypertension-controlled,continue to monitor BP/HR. Hyperlipidemia, continue on current medication monitor lipids Clinical Quality Measures DVT/VTE Risk/Contraindication: Risk Factor Score Per Nursin RFS Level Per Nursing on Admit: 2=Moderate PRANEETH SHUKLA MD Aug 08, 2017 10:40
[2017-08-08] MEDS ORDERED: LACTOBACILLUS Acidoph/Bulgar (LACTINEX/FLORANEX) TAB PO SCH (11:00)
[2017-08-08] MEDS ORDERED: MEROPENEM 500 MG in NS (IVPB) 100 ML IV SCH (14:00)
[2017-08-08] MEDS ORDERED: FUROSEMIDE 40 MG (LASIX) TAB PO SCH (17:00)
== END 2017-08-08 10:49 | disposition swing bed (61) | DRG 291 ==
LOC: EDUNIT# 09:30 → ER 09:32 → 4TH 11:20
PROVIDERS: ADMIT Internal Medicine; ATTEND Internal Medicine
DX: I13.0 Hypertensive heart and chronic kidney disease with heart failure and stage 1 through stage 4 chronic kidney disease, or unspecified chronic kidney disease (principal); I50.23 Acute on chronic systolic (congestive) heart failure; N18.9 Chronic kidney disease, unspecified; I25.5 Ischemic cardiomyopathy; N30.01 Acute cystitis with hematuria; B96.20 Unspecified Escherichia coli [E. coli] as the cause of diseases classified elsewhere; I05.0 Rheumatic mitral stenosis; I27.20 Pulmonary hypertension, unspecified; I70.235 Atherosclerosis of native arteries of right leg with ulceration of other part of foot; L97.519 Non-pressure chronic ulcer of other part of right foot with unspecified severity; I25.10 Atherosclerotic heart disease of native coronary artery without angina pectoris; I70.0 Atherosclerosis of aorta; I71.4 Abdominal aortic aneurysm, without rupture; I87.2 Venous insufficiency (chronic) (peripheral); D50.9 Iron deficiency anemia, unspecified; D63.8 Anemia in other chronic diseases classified elsewhere; E03.9 Hypothyroidism, unspecified; E78.5 Hyperlipidemia, unspecified; I65.29 Occlusion and stenosis of unspecified carotid artery; M19.91 Primary osteoarthritis, unspecified site; F03.90 Unspecified dementia, unspecified severity, without behavioral disturbance, psychotic disturbance, mood disturbance, and anxiety; R11.0 Nausea; R41.0 Disorientation, unspecified; Z95.2 Presence of prosthetic heart valve; Z79.01 Long term (current) use of anticoagulants; Z95.810 Presence of automatic (implantable) cardiac defibrillator; Z87.01 Personal history of pneumonia (recurrent); Z98.62 Peripheral vascular angioplasty status
CPT/HCPCS: 36415; 71020; 80053; 80162; 81000; 82728; 83540; 83605; 83880; 84484; 85025; 85027; 85610; 85730; 87040; 87088; 87186; 93005; 93306; 94640; 94664; 94760; 94761; 96374

== ENCOUNTER 2017-08-08 10:19 | Inpatient (IN) | payer MEDICARE ==
[~2017-08-08] VITALS: Ht 167.6 cm; Wt 62.1 kg
[~2017-08-08 10:19] MED LIST changes: +PANT40TA3 PO; +POTA10CA68 PO
[2017-08-08] MEDS ORDERED: SCOPOLAMINE 1.5 MG (TRANSDERM-SCOP) PATCH TOP SCH (11:15)
[2017-08-08] MEDS ORDERED: CATHETER FLUSH 10 ML SYR IV PRN (11:15)
[2017-08-08] MEDS ORDERED: IRON SUCROSE INJECTION 200 MG in NS (IVPB) 100 ML IV SCH (11:15)
[2017-08-08] MEDS ORDERED: ONDANSETRON 4 MG/2 ML (SDV) Z0FRAN IVP PRN (11:15)
[2017-08-08] MEDS ORDERED: NITROGLYCERIN 0.4 MG SL TABS BTL 25'S SL PRN (11:15)
[2017-08-08] MEDS ORDERED: guaiFENesin (MUCINEX) 600 MG TAB PO PRN (11:15)
[2017-08-08] MEDS ORDERED: RT-LEVALBUTEROL (XOPENEX) 1.25 MG/3 ML NEB NON-FORMULARY INH PRN (11:15)
--- OUTSIDE RECORDS SUMMARY | 2017-08-08 11:46 | XMS REPORT | Clinical Summary ---
Author Author [facility] Organization [facility] Address Unknown Phone Unavailable Care Team Providers Care Multisensor Intelligence Officer Name Role Phone PCP Unavailable Source Comments Some departments are not documenting in the electronic medical record. If you do not see the information that you expected, contact Release of Information in the Health Information Management department at [phone] for further assistance in locating additional records.[facility] Allergies No Known Allergies Current Medications Prescription [...] S/P aortic valve replacement with prosthetic valve, intermediate current use of anticoagulant, HLD (hyperlipidemia), PVD (peripheral vascular disease) (HCC), Atrial fibrillation ([facility]), CAD (coronary artery disease), Right bundle branch [...] (RBBB) with posterior hemiblock 03/21/2012 Cardiomyopathy ([facility]) 03/21/2012 Overview: : EF 30, dilated LV. Severe MR & TR PAP 55 (42 a year earlier, EF 35, MR and TR mod-severe). 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 Overall well rate controlled. Biventricular ICD (implantable cardioverter-defibrillator) in place 2011 Overview: MDT DC PPM- L side 200408/07/12 [facility] [place] FUSION ANALYST-D upgrade implant + DFTs with Dr. Ceja. L ast Assessment & Plan: Device was checked today and demonstrated normal function. See device check and cardiovascular studies for further details. Resolved Problems Problem Noted Date Resolved Date Dilated cardiomyopathy (HCC) 03/18/2012 03/21/2012 Family History Medical History Relation Name Comments Coronary Artery Disease Mother of [place] Relation Name Status Comments Mother Social History Tobacco Use Types Packs/Day Years Used Date Never Smoker Smokeless Tobacco: Never Used Alcohol Use Drinks/Week oz/Week Comments No Sex Assigned at Date Recorded Not on file Last Filed Vital Signs Vital Sign Reading Time Taken Blood Pressure 128/60 08/31/2015 12:58 PM SENIOR JAVA ENGINEER Pulse 87 09/29/2014 11:26 AM SENIOR JAVA ENGINEER Temperature 36.6 C (97.9 F) 08/09/2012 11:25 AM SENIOR JAVA ENGINEER Respiratory Rate - - Oxygen Saturation 93% 09/29/2014 11:26 AM SENIOR JAVA ENGINEER Inhaled Oxygen - - Concentration Weight 58.1 kg (128 lb) 08/31/2015 12:58 PM SENIOR JAVA ENGINEER Height 167.6 cm (5' 6") 08/31/2015 12:58 PM SENIOR JAVA ENGINEER Body Mass Index 20.66 08/31/2015 12:58 PM SENIOR JAVA ENGINEER Plan of Treatment Health Maintenance Due Date Last Done Comments PHYSICAL (COMPREHENSIVE) 1944 EXAM PERTUSSIS VACCINE 1948 TETANUS VACCINE 1954 SHINGLES VACCINE 1997 OSTEOPOROSIS SCREENING 2002 PREVNAR/PNEUMOVAX (#1) 2002 INFLUENZA VACCINE 04/03/2017 Results Not on filefrom Last 3 Months
[2017-08-08 12:00] VITALS: BP 105/56
[2017-08-08] MEDS ORDERED: rOPINIRole 1 MG (REQUIP) TABLET PO PRN (12:00)
[2017-08-08] MEDS: IRON SUCROSE INJECTION 200 MG in NS (IVPB) 100 ML IV SCH (12:51)
[2017-08-08] MEDS: CATHETER FLUSH 10 ML SYR IV SCH ×2 (12:51→22:13)
[2017-08-08] MEDS: MECLIZINE 25 MG (ANTIVERT) TAB PO PRN (12:59)
--- NOTE | 2017-08-08 13:51 | Physical Therapy Evaluation ---
PT Evaluation-General Medical Diagnosis Admission Date Aug 08, 2017 at 11:21 Medical Diagnosis: Acute Heart Failure Onset Date: Aug 06, 2017 Therapy Diagnosis Therapy Diagnosis: weakness Height/Weight Height (Feet): 5 Height (Inches): 6.00 Weight (Pounds): 137 Weight (Ounces): 0.0 Precautions Precautions/Isolations: Standard Precautions Weight Bear Status Right Lower Extremity: Right Full Weight Bearing Left Lower Extremity: Left Full Weight Bearing Referral Physician: Brenda Walker MD Reason for Referral: Evaluation/Treatment Medical History Pertinent Medical History: Atrial Fib, CAD, Heart Failure, HTN, Hypothroidism, OA, Renal Insufficiency Additional Medical History previous pneumonia, gallbladder disease Reviewed History: Yes Social History Home: Single Level Current Living Status: Alone Entry Into Home: Stairs With Railing PT Steps Into Home: 2 Prior/Core FIM Prior Level of Function Functional [place] Measure 0=Not Assessed/NA 4=Minimal Assistance 1=Total Assistance 5=Supervision or Setup 2=Maximal Assistance 6=Modified [place] 3=Moderate Assistance 7=Complete [place] Bed Mobility: 7 Transfers (B,C,W/C) (FIM): 7 Gait: 7 Locomotion: 7 Patient owns a walker, but she claims she never uses it. PT Evaluation-Current Subjective Patient states that she is feeling better since admission into the hospital. She reports that she is doing well and agrees to PT eval. Pain Numeric Pain Scale: 0-No Pain Location: No Pain Reported Pt/Family Goals Patient wishes to return to independence at home. Objective Patient Orientation: Normal For Age Attachments: Oxygen, IV 3.0 L of O2 nasal canula ROM/Strength ROM Upper Extremities WNL ROM Lower Extremities WNL Strength Upper Extremities WNL Strenght Lower Extremities WNL Integumentary/Posture Integumentary Wound on distal R LE Bowel Incontinence: No Bladder Incontinence: No Neuromuscular (Tone, Coordination, Reflexes) WNL Sensory Vision: Wears Glasses Hearing: Functional Hand Dominance: Right Sensation Right Upper Extremit: Intact Sensation Left Upper Extremity: Intact Sensation Right Lower Extremit: Intact Sensation Left Lower Extremity: Intact Transfers Functional [place] Measure 0=Not Assessed/NA 4=Minimal Assistance 1=Total Assistance 5=Supervision or Setup 2=Maximal Assistance 6=Modified [place] 3=Moderate Assistance 7=Complete [place] Transfers (B, C, W/C) (FIM): 5 Scootin Rollin Supine to/from Sit: 5 Sit to/from Stand: 5 Sit to Lying (QC): 5 Lying to Sitting/Side of Bed(Q: 5 Sit to Stand (QC): 5 Chair/Nht-ae-Funsc Xfer(QC): 5 Patient only requires SBA to supervision with transfers and bed mobility. Gait Does the Patient Walk?: Yes Mode of Locomotion: Walk Anticipated Mode of Locomotion: Walk Gait (FIM): 5 Distance: 800' Walk 50 ft with 2 Turns(QC): 5 Walk 150 ft (QC): 5 Gait Level of Assist: 5 Gait Persons Needed: 1 Gait Assistive Device: FWW Comments/Gait Description Patient ambulated safely with the FWW. PT is SBA to supervision to transport O2 tank and IV pole. Balance Sitting Static: Normal Sitting Dynamic: Normal Standing Static: Normal Standing Dynamic: Normal Treatment Patient performed seated exercises including ankle pumps, LAQs, hip flexion, and hip abd/add for 20 repetitions bilaterally. Assessment/Needs Patient has good tolerance for gait and exercise and demonstrates good bed mobility. Patient has a good outlook for recovery. Patient will benefit from gait training and therapeutic exercise to improve patient strength and endurance. Rehab Potential: Fair PT Senior Living Goals Bilingual Recruiter Goals PT Senior Living Goals Time Frame: Aug 15, 2017 Transfers (B,C,W/C) (FIM): 6 Sit to Lying (QC): 6 Lying-Sitting on Side/Bed(QC): 6 Sit to Stand (QC): 6 Rollin Gait (FIM): 6 Distance: 800' Walk 50ft with 2 Turns (QC): 6 Walk 150 ft (QC): 6 Gait Assistive Device: FWW PT Plan Problem List Problem List: Activity Tolerance, Functional Strength, Safety, Balance, Gait Treatment/Plan Treatment Plan: Continue Plan of Care Treatment Plan: Education, Functional Activity Rick, Functional Strength, Gait , Safety, Therapeutic Exercise Treatment Duration: Aug 15, 2017 Frequency: 6 times per week Estimated Hrs Per Day: .25 hour per day (15-30 min) Patient and/or Family Agrees t: Yes Safety Risks/Education Patient Education: Gait Training, Transfer Techniques, Reviewed Precautions, Correct Positioning, Safety Issues Teaching Recipient: Patient Teaching Methods: Demonstration, Discussion Response to Teaching: Reinforcement Needed Discharge Recommendations Plan Patient will perform bed mobility and transfer training, balance and endurance training, functional strengthening, stair training, gait training, education, to improve functional mobility and independence at home. Therapy D/C Recommendations: Home w/ Family Support, Home Independently Time/GCodes Time In: 1316 Time Out: 1346 Total Billed Treatment Time: 30 Total Billed Treatment 1 visit EVM 30 min DARWIN WARD PT Aug 08, 2017 13:51
[2017-08-08] MEDS: MEROPENEM 500 MG in NS (IVPB) 100 ML IV SCH ×2 (14:05→21:46)
--- NOTE | 2017-08-08 14:43 | Occupational Therapy Eval ---
OT Evaluation-General/PLF Medical Diagnosis Admission Date Aug 08, 2017 at 11:21 Medical Diagnosis: Acute Heart Failure Onset Date: Aug 06, 2017 Therapy Diagnosis Therapy Diagnosis: decreased self care Height/Weight Height (Feet): 5 Height (Inches): 6.00 Weight (Pounds): 137 Weight (Ounces): 0.0 Precautions Precautions/Isolations: Standard Precautions Referral Physician: Brenda Walker MD Medical History Pertinent Medical History: Atrial Fib, CAD, Heart Failure, HTN, Hypothroidism, OA, Renal Insufficiency Additional Medical History SSS, valvular heart disease, aortic valve replacement, chronic edema Reviewed History: Yes Social History Home: Single Level Current Living Status: Alone Entry Into Home: Stairs With Railing Steps Into Home: 2 ADL-Prior Level of Function ADL PLOF Comments Pt reports being independent prior to hospitalization. Pt states she does not use any assistive devices for mobility, but has walker available if needed. 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 DME/Equipment: Bath Chair, Grab Bars, Shower DME/Equipment Comments O2 at night Drive Self: Yes OT Current Status Subjective Pt sitting in chair, agrees to therapy. Pt has no c/o pain. Mental Status/Objective Patient Orientation: Person, Place, Situation Attachments: IV, Oxygen Current Glasses/Contacts: Yes Hearing Aids: No Dentures/Partials: No Hand Dominance: Right Upper Extremity ROM Grossly WFL Upper Extremity Coordination Intact Upper Extremity Sensation Intact per pt report Upper Extremity Strength Grossly 4/5 ADL-Treatment ADL-Current Pt states she is able to feed herself, open packages, and cut food without assistance. Pt states she has been completing grooming tasks with set up. Pt sit to stand with supervision. Gait to restroom without LOB, assist to manage O2 and IV pole. Toilet transfer completed with SBA. Pt able to manage toileting hygiene and clothing with SBA. Stood at sink to wash hands without assistance. Pt returned to recliner with SBA. Pt declined bathing at this time, states daughter will here soon and will assist her. Pt demonstrated ability to doff/ don sock without assistance while seated in chair. Pt has dressing/wrap on right ankle secondary to wound. Pt states she goes to wound care clinic weekly and changes the dressing at home as needed. Pt denied further needs at this time. Pt sitting in chair with needs met after session. Functional [place] Measure 0=Not Assessed/NA 4=Minimal Assistance 1=Total Assistance 5=Supervision or Setup 2=Maximal Assistance 6=Modified [place] 3=Moderate Assistance 7=Complete IndependenceIRFPAI Quality Coding Scale 6 Independent with activity with or without an assistive device 5 Patient requires set up or clean up by helper. Patient completes activity by themselves 4 Supervision or touching assist (CGA). [place] provide cues , steadying assist 3 The helper provides less than half the effort to complete the activity 2 The helper provides more than half the effort to complete the activity 1 Dependent. The helper does all the effort to complete an activity 7 Patient refused to complete or attempt activity 9 The patient did not perform the activity before the current illness or injury 88 Not attempted due to Medical conditions or safety concerns Eating (FIM): 6 (by report) Eating (QC): 6 Grooming (FIM): 5 (Pt reports completing grooming after set up) Oral Hygiene (QC): 5 Lower Body Dressing (FIM): 5 (sock only) Toileting (FIM): 5 Toileting Hygiene (QC): 4 Toilet/Commode Transfer (FIM): 5 Toilet Transfer (QC): 4 Education OT Patient Education: Rehab process Teaching Recipient: Patient Teaching Methods: Discussion Response to Teaching: Verbalize Understanding OT Short Term Goals Short Term Goals 1=Demonstrate adherence to instructed precautions during ADL tasks. 2=Patient will verbalize/demonstrate understanding of assistive devices/ modifications for ADL. 3=Patient will improve strength/tolerance for activity to enable patient to perform ADL's. OT Retirement Goals Refrigerated Cargo Clerk Goals Time Frame: Aug 22, 2017 Eating (FIM): 6 Eating (QC): 6 Groomin Oral Hygiene (QC): 6 Bathing(FIM): 5 Upper Body Dressing(FIM): 6 Lower Body Dressing(FIM): 6 Toileting(FIM): 6 Toileting Hygiene (QC): 6 Toilet/Commode Transfer(FIM): 6 Toilet/Commode Transfer (QC): 6 Additional Goals: 2-Verbalize Understanding, 3-ImproveStrength/Rick 1=Demonstrate adherence to instructed precautions during ADL tasks. 2=Patient will verbalize/demonstrate understanding of assistive devices/ modifications for ADL. 3=Patient will improve strength/tolerance for activity to enable patient to perform ADL's. OT Education/Plan Problem List/Assessment Assessment: Decreased Activ Tolerance, Decreased UE Strength, Dependent Transfers, Impaired Self-Care Skills Pt to benefit from skilled OT intervention for ADL training, transfers, strengthening, and home safety education to increase level of independence and allow safe return home. Discharge Recommendations Plan/Recommendations: Continue POC Treatment Plan/Plan of Care Treatment,Training & Education: Yes Patient would benefit from OT for education, treatment and training to promote independence in ADL's, mobility, safety and/or upper extremity function for ADL' s. Plan of Care: ADL Retraining, Functional Mobility, UE Funct Exercise/Act Treatment Duration: Aug 22, 2017 Frequency: 5 times per week Estimated Hrs Per Day: .25 hour per day Agreement: Yes Rehab Potential: Good Time/GCodes Start Time: 14:10 Stop Time: 14:33 Total Time Billed (hr/min): 23 Billed Treatment Time 1 visit, EVM(8minutes), ADL(15minutes) KAN FLEMING OT Aug 08, 2017 14:43
[2017-08-08 16:03] VITALS: BP 106/51
[2017-08-08] MEDS: FUROSEMIDE 40 MG (LASIX) TAB PO SCH (16:27)
[2017-08-08] MEDS: LACTOBACILLUS Acidoph/Bulgar (LACTINEX/FLORANEX) TAB PO SCH (16:27)
[2017-08-08] MEDS ORDERED: warFARin 2 MG (COUMADIN) TAB PO SCH (18:00)
[2017-08-08 19:25] VITALS: BP 109/59
[2017-08-08] MEDS: SACUBITRIL/VALSARTAN 24/26 MG (ENTRESTO) TABLET PO SCH (21:48)
[2017-08-08] MEDS: KCL 10 MEQ TAB (MICRO K) PO SCH (21:48)
[2017-08-08] MEDS: rOPINIRole 0.25 MG (REQUIP) TAB PO SCH (21:48)
[2017-08-09] VITALS: BP 100/52
[2017-08-09 04:15] VITALS: BP 102/60
[2017-08-09] MEDS: MEROPENEM 500 MG in NS (IVPB) 100 ML IV SCH ×3 (06:06→21:23)
[2017-08-09] MEDS: CATHETER FLUSH 10 ML SYR IV SCH ×3 (06:07→21:23)
[2017-08-09] MEDS: LACTOBACILLUS Acidoph/Bulgar (LACTINEX/FLORANEX) TAB PO SCH ×3 (06:07→17:12)
[2017-08-09] MEDS: FUROSEMIDE 40 MG (LASIX) TAB PO SCH ×2 (06:07→17:12)
[2017-08-09] MEDS: LEVOTHYROXINE 100 MCG (LEVOTHROID) TAB PO SCH (06:07)
[2017-08-09] MEDS: PANTOPRAZOLE 40 MG (PROTONIX) TAB PO SCH (06:07)
[2017-08-09 06:24] LABS: CALCIUM 8.7 MG/DL (8.5-10.1); CREATININE SERUM 1.22 MG/DL (0.60-1.30); MEAN PLATELET VOLUME 10.5 FL (7.4-10.4); POTASSIUM 4.3 MMOL/L (3.6-5.0); RED BLOOD COUNT 2.5 10^6/uL (4.35-5.85); RED CELL DISTRIBUTION WIDTH 15.1 % (10.0-14.5); WHITE BLOOD COUNT 5.4 10^3/uL (4.3-11.0)
[2017-08-09 06:27] LABS: INR 2.8 (0.8-1.4); PROTHROMBIN TIME PATIENT 29.4 SEC (12.2-14.7)
--- NOTE | 2017-08-09 07:58 | Cardiology Progress Note ---
Subjective Date Seen by Provider: Aug 09, 2017 Time Seen by Provider: 07:45 Subjective/Events-last exam patient was seen at bedside, feeling better, breathing better, having mild right upper quadrant pain. No nausea or vomiting, no fever or chills. Review of Systems General: No Chills, No Night Sweats, No Fatigue, No Malaise, No Appetite, No Other HEENT: No Head Aches, No Visual Changes, No Eye Pain, No Ear Pain, No Dysphasia , No Sinus Congestion, No Post Nasal Drip, No Sore Throat, No Other Pulmonary: No Dyspnea, No Cough, No Pleuritic Chest Pain, No Other Cardiovascular: No: Chest Pain, Palpitations, Orthopnea, Paroxysmal Noc. Dyspnea, Edema, Lt Headedness, Other Objective-Cardiology Exam Last Set of Vital Signs Vital Signs 08/09/17 04:15 Temp 99.2 Pulse 82 Resp 18 B/P (MAP) 102/60 (74) Pulse Ox 94 O2 Delivery Nasal Cannula O2 Flow Rate 3.00 Capillary Refill : I&O Intake and Output 08/09/17 00:00 Intake Total 1170 ml Output Total 1100 ml Balance 70 ml Intake Oral 960 ml IV Total 210 ml Output Urine Total 1100 ml # Bowel Movements 1 # [place] 1 Daily Weight Change No General: Alert, Oriented X3, Cooperative HEENT: Atraumatic, PERRLA Neck: Supple, No JVD, No Thyromegaly Lungs: Clear to Auscultation, Normal Air Movement Heart: Normal S1, Normal S2, Other (metallic click, irregular rhythm) Abdomen: Normal Bowel Sounds, Soft, No Tenderness, No Hepatosplenomegaly, No Masses, Other Extremities: No Clubbing, No Cyanosis, No Edema, Normal Pulses, No Tenderness/ Swelling Skin: No Rashes, No Breakdown, No Significant Lesion Neuro: Normal Gait, Normal Speech, Normal Tone, Sensation Intact Psych/Mental Status: Mental Status NL, Mood NL Results Lab Laboratory Tests 08/09/17 05:41 A/P-Cardiology Admission Diagnosis shortness of breath UTI Anemia Abdominal pain Assessment/Plan Shortness of breath, acute on chronic congestive heart failure left ventricular systolic dysfunction, ejection fraction 30-35 percent, history of TAP GRINDER-D implant in August 2012. Continue on current medication monitor intake and output Anemia, slightly worse, restart Coumadin, monitor H&H Mild abdominal pain, history of cholecystectomy, flank evaluate ultrasound of the abdomen Urinary tract infection, Escherichia coli, receiving antibiotics, managed by primary care physician Status post episode of chest pain, reporting improvement, no further episodes were reported. 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 Prabhakar. Echocardiogram showed ejection fraction 30-35 percent, severely dilated left atrium, moderate severe mitral stenosis, moderate to severe mitral regurgitation, prosthetic valve in the aortic position functioning normally, PA pressure 45 mmHg done in December 2016 Nonhealing foot ulcer, patient has venous insufficiency on the right side that required ablation, peripheral angiogram showed a gradient across the SFA of 50- 60 mmHg, severe stenosis at the proximal anterior tibial artery on the right side underwent balloon angioplasty using 3.0 x 80 [place] with multiple inflation with mild residual stenosis, total occlusion at the ankle level and at the arch level, total occlusion of the tibioperoneal trunk with collateral filling the posterior tibial through the right anterior tibial, heavily calcified right SFA with moderate to severe stenosis with a gradient of 50-60 mmHg across the mid SFA. Diffuse disease at the left SFA, vision at the trifurcation level with collateral at the left lower extremity, diffuse atherosclerotic disease at the abdominal aorta. LINDA was done in the office and showed improvement. 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 discussed with Dr. Page, he recommended medical therapy at this time considering her to be high risk for morbidity and mortality if she undergoes valve surgery. She is not a candidate for mitral clip secondary to her mitral stenosis she was referred back to me for continuous following and we will contact him if needed Coronary artery disease, small vessel disease, nonobstructive disease, the prosthetic valve was functioning normally. Pulmonary artery pressure was 50/26 , pulmonary capillary wedge pressure 35, right ventricular pressure 53/17. cardiac catheterization was done in September 2014. Stress test done in December 2016 showing no ischemia or infarction, EF 41 percent, continue to monitor Carotid stenosis, continue to monitor, followed by heart and vascular care. 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 followed and monitored by heart and vascular care. Hypertension-controlled,continue to monitor BP/HR. Hyperlipidemia, continue on current medication monitor lipids Clinical Quality Measures DVT/VTE Risk/Contraindication: Risk Factor Score Per Nursin PRANEETH SHUKLA MD Aug 09, 2017 07:58
[2017-08-09 08:00] VITALS: BP 102/54
--- NOTE | 2017-08-09 09:39 | Progress Note-Hospitalist ---
Subjective HPI/CC On Admission Date Seen by Provider: Aug 09, 2017 Time Seen by Provider: 09:30 Subjective/Events-last exam Anisha reports doing well. No complaints. Denies abd pain to me. Getting abd usg during exam. Reports SOB improving. Ambulated with minimal SOB. Objective Exam Vital Signs Vital Sign - Last 12Hours 08/08/17 12:00 Temp 98.3 Pulse 106 Resp 22 B/P (MAP) 105/56 (72) Pulse Ox 94 O2 Delivery Nasal Cannula O2 Flow Rate 3.00 Capillary Refill : General Appearance: No Apparent Distress, WD/WN Respiratory: Lungs Clear, No Respiratory Distress Cardiovascular: Regular Rate, Rhythm, No JVD, Systolic Murmur Gastrointestinal: Normal Bowel Sounds, Non Tender, Soft, No Guarding, No Tenderness Extremity: Non Tender, No Calf Tenderness Neurologic/Psychiatric: Alert, Oriented x3 Results/Procedures Lab Laboratory Tests 08/09/17 05:41 Assessment/Plan Assessment and Plan Assess & Plan/Chief Complaint ESBL e coli uti Diagnosis/Problems Diagnosis/Problems (1) UTI (urinary tract infection) Assessment & Plan: ESBL On precautions Continue Merrem Day 2/ Qualifiers: Qualified Codes: N30.01 - Acute cystitis with hematuria (2) Acute exacerbation of congestive heart failure Status: Acute Assessment & Plan: Now on oral lasix Trend I/Os (3) Chronic anemia Status: Acute Assessment & Plan: Continue Venofer Stable (4) Aortic valve replaced Assessment & Plan: INR Therapeutic Will recheck in AM Cardiology consulted, appreciate recs (5) Prophylactic measure Assessment & Plan: Saline lock HH diet Warfarin VENANCIO ARREAGA MD Aug 09, 2017 9:39 am
--- NOTE | 2017-08-09 09:40 | Physical Therapy Daily Note ---
PT Daily Note-Current Subjective Patient is sleeping in bed upon PT entering the room. Patient states she is ready to get up and agrees to PT. Pain Numeric Pain Scale: 0-No Pain Location: No Pain Reported Appearance Patient appears in good health. She is left post tx seated in recliner with call light in reach. Mental Status Patient Orientation: Normal For Age Attachments: Oxygen 3.0 L Transfers Functional [place] Measure 0=Not Assessed/NA 4=Minimal Assistance 1=Total Assistance 5=Supervision or Setup 2=Maximal Assistance 6=Modified [place] 3=Moderate Assistance 7=Complete IndependenceIRFPAI Quality Coding Scale 6 Independent with activity with or without an assistive device 5 Patient requires set up or clean up by helper. Patient completes activity by themselves 4 Supervision or touching assist (CGA). [place] provide cues , steadying assist 3 The helper provides less than half the effort to complete the activity 2 The helper provides more than half the effort to complete the activity 1 Dependent. The helper does all the effort to complete an activity 7 Patient refused to complete or attempt activity 9 The patient did not perform the activity before the current illness or injury 88 Not attempted due to Medical conditions or safety concerns Transfers (B, C, W/C) (FIM): 6 Scootin Supine to/from Sit: 6 Sit to/from Stand: 6 Patient performs all transfers and bed mobility with mod I. Weight Bearing Right Lower Extremity: Right Full Weight Bearing Left Lower Extremity: Left Full Weight Bearing Gait Training Does the Patient Walk?: Yes Gait (FIM): 6 Distance: 500' Gait Level of Assist: 6 Gait Assistive Device: FWW Patient ambulates with normal gait pattern in FWW. Patient did state she felt more SOB than usual this a.m. Exercises Seated Therapy Exercises: Ankle pumps, Long arc quads, Hip flexion, Hip abd/add Seated Reps: 20 Assessment Current Status: Good Progress Patient is able to ambulate safely and has good tolerance for exercise. Patient is currently limited by SOB with activity. PT interventions will be focused around improving aerobic capacity and activity tolerance. PT Bilingual Legal Assistant Goals Bilingual Legal Assistant Goals PT Usp Goals Time Frame: Aug 15, 2017 Transfers (B,C,W/C) (FIM): 6 Sit to Lying (QC): 6 Lying-Sitting on Side/Bed(QC): 6 Sit to Stand (QC): 6 Rollin Gait (FIM): 6 Distance: 800' Walk 50ft with 2 Turns (QC): 6 Walk 150 ft (QC): 6 Gait Assistive Device: FWW PT Plan Problem List Problem List: Activity Tolerance, Functional Strength, Safety, Balance, Gait Treatment/Plan Treatment Plan: Continue Plan of Care Treatment Plan: Education, Functional Activity Rick, Functional Strength, Gait , Safety, Therapeutic Exercise Treatment Duration: Aug 15, 2017 Frequency: 6 times per week Estimated Hrs Per Day: .25 hour per day (15-30 min) Patient and/or Family Agrees t: Yes Time/GCodes Time In: 900 Time Out: 915 Total Billed Treatment Time: 15 Total Billed Treatment 1 visit FA 15 min KATHERINE RUTHERFORD PT Aug 09, 2017 09:40
[2017-08-09] MEDS: DIGOXIN 0.125 MG (LANOXIN) TAB PO SCH (09:56)
[2017-08-09] MEDS: ISOSORBIDE MONONITRATE 30 MG (IMDUR) TAB PO SCH (09:57)
[2017-08-09] MEDS: SACUBITRIL/VALSARTAN 24/26 MG (ENTRESTO) TABLET PO SCH ×2 (09:57→21:22)
[2017-08-09] MEDS: meTOproloL SUCCINATE 50 MG (TOPROL XL) TAB PO SCH (09:57)
[2017-08-09] MEDS: LORATADINE (CLARITIN) 10 MG TAB PO SCH (09:57)
[2017-08-09] MEDS: MEXILETINE 150 MG (MEXITIL) CAPSULE PO SCH (09:57)
--- NOTE | 2017-08-09 10:38 | Diagnostic Imaging Report ---
PROCEDURE: US abdomen complete. TECHNIQUE: Multiple real-time grayscale images were obtained over the abdomen in various projections. INDICATION: Abdominal pain. FINDINGS: The visualized portion of the pancreas appears unremarkable. The liver is fairly homogeneous with no focal lesion seen. It has a lobulated contour however. Hepatopetal flow in the portal vein is seen. The gallbladder has been removed. The CBD is obscured by bowel gas. The right kidney is 10.2 on the left kidney is 10.8 cm in length. No hydronephrosis or focal lesion in either kidney. The spleen is borderline enlarged measuring 12.7 x 5.3 x 4.9 cm. There is normal flow in the IVC seen. The abdominal aorta is normal in caliber. There is small to moderate ascites with slightly prominent pocket in the right lower quadrant. There is a small left pleural effusion seen. IMPRESSION: 1. Small to moderate ascites. Left pleural effusion is noted. 2. The liver contour is lobulated which could relate to chronic liver disease or cirrhosis. 3. Borderline splenomegaly. Dictated by: Dictated on workstation # [id number]
--- NOTE | 2017-08-09 11:16 | Wound Care Progress Note ---
Subjective Subjective Subjective/Events-last exam 82 year old female with venous ulceration of R calf. The superior ulcer is healed. PuraPly dressing removed from lower wound, and it is much improved. No C/O re R leg. PFSH: no interval change. Review of Systems Date Seen by Provider: Aug 09, 2017 Time Seen by Provider: 10:45 General: Fatigue Musculoskeletal: No: leg pain Objective Exam Last Set of Vital Signs Vital Signs Date Time Temp Pulse Resp B/P (MAP) Pulse Ox O2 Delivery O2 Flow Rate FiO2 08/09/17 10:54 Nasal Cannula 3.00 08/09/17 08:00 98.4 86 16 102/54 (70) 95 Capillary Refill : I&O Intake and Output 08/09/17 00:00 Intake Total 1170 ml Output Total 1100 ml Balance 70 ml Intake Oral 960 ml IV Total 210 ml Output Urine Total 1100 ml # Bowel Movements 1 # [place] 1 Daily Weight Change No General: Alert, No Acute Distress Lungs: Normal Air Movement Skin: Other (R calf wound, inferior -- 1.7 x 0.6 x 0.2 cm, 100% regenerating tissue.) Results Lab Laboratory Tests 08/09/17 05:41: White Blood Count 5.4, Red Blood Count 2.50L, Hemoglobin 7.8L, Hematocrit 26L, Mean Corpuscular Volume 103H, Mean Corpuscular Hemoglobin 31, Mean Corpuscular Hemoglobin Concent 30L, Red Cell Distribution Width 15.1H, Platelet Count 227, Mean Platelet Volume 10.5H, Prothrombin Time 29.4H, INR Comment 2.8H, Sodium Level 140, Potassium Level 4.3, Chloride Level 102, Carbon Dioxide Level 30, Anion Gap 8, Blood Urea Nitrogen 21H, Creatinine 1.22, Estimat Glomerular Filtration Rate 42, BUN/Creatinine Ratio 17, Glucose Level 91, Calcium Level 8.7 Assessment/Plan Assessment/Plan Assessment/Plan 1. R calf ulcer, partial thickness. 2. Venous insufficiency ulcer R calf. Plan: Dressing removed, change to Xeroform, Follow-up with Dr. Schumacher in [facility] after discharge. ARCENIO NIETO MD Aug 09, 2017 11:16
[2017-08-09 12:00] VITALS: BP 112/57
--- NOTE | 2017-08-09 15:33 | Occupational Ther Daily Note ---
OT Current Status-Daily Note Subjective No pain reported. Appearance Pt. in bed. Pt. declines showering. States that she showered late last night, and would rather wait for her daughter to come. Pt. does agree to work with OT for strengthening. Mental Status/Objective Patient Orientation: Person, Place, Time, Situation Functional [place] Measure 0=Not Assessed/NA 4=Minimal Assistance 1=Total Assistance 5=Supervision or Setup 2=Maximal Assistance 6=Modified [place] 3=Moderate Assistance 7=Complete [place] Attachments: IV, Oxygen ADL-Treatment Transfers (B, C, W/C) (FIM): 6 Other Treatment Pt. transferred supine-sit with Mod I using bedrail. Able to sit on side of bed and complete series of UE/LE ROM exercises in all planes. Pt. completed knee kicks, marches, and ankle pumps. Pt. completed 5 UE ROM exercises in all planes in multiple joints to increase overall strength. Pt. tolerated this well with no fatigue. Transferred sit-stand with no equipment and transferred to chair. All needs met up in chair. Education OT Patient Education: Correct positioning, Exercise program, Modified ADL techniques, Progress toward Goal/Update tx plan, Purpose of tx/functional activities, Reviewed precautions, Rehab process, Transfer techniques Teaching Recipient: Patient Teaching Methods: Demonstration, Discussion Response to Teaching: Verbalize Understanding, Return Demonstration OT Short Term Goals Short Term Goals 1=Demonstrate adherence to instructed precautions during ADL tasks. 2=Patient will verbalize/demonstrate understanding of assistive devices/ modifications for ADL. 3=Patient will improve strength/tolerance for activity to enable patient to perform ADL's. OT Senior Care Goals Pipe Welder Goals Time Frame: Aug 22, 2017 Eating (FIM): 6 Grooming(FIM): 6 Bathing(FIM): 5 Upper Body Dressing(FIM): 6 Lower Body Dressing(FIM): 6 Toileting(FIM): 6 Toilet/Commode Transfer(FIM): 6 Additional Goals: 2-Verbalize Understanding, 3-ImproveStrength/Rick 1=Demonstrate adherence to instructed precautions during ADL tasks. 2=Patient will verbalize/demonstrate understanding of assistive devices/ modifications for ADL. 3=Patient will improve strength/tolerance for activity to enable patient to perform ADL's. OT Education/Plan Problem List/Assessment Assessment: Decreased Activ Tolerance Pt to benefit from skilled OT intervention for ADL training, transfers, strengthening, and home safety education to increase level of independence and allow safe return home. Discharge Recommendations Plan/Recommendations: Continue POC Therapy D/C Recommendations: Home w/ Family Support Target Placement Home with family support. Treatment Plan/Plan of Care Treatment,Training & Education: Yes Patient would benefit from OT for education, treatment and training to promote independence in ADL's, mobility, safety and/or upper extremity function for ADL' s. Plan of Care: ADL Retraining, Functional Mobility, UE Funct Exercise/Act Treatment Duration: Aug 22, 2017 Frequency: 5 times per week Estimated Hrs Per Day: .25 hour per day Agreement: Yes Rehab Potential: Good Time/GCodes Start Time: 13:25 Stop Time: 13:40 Total Time Billed (hr/min): 15 Billed Treatment Time 1, EX NIXON HOOPER OT Aug 09, 2017 15:32
[2017-08-09 16:00] VITALS: BP 125/66
[2017-08-09] MEDS: warFARin 2 MG (COUMADIN) TAB PO SCH (17:12)
[2017-08-09] MEDS ORDERED: warFARin 2 MG (COUMADIN) TAB PO SCH (18:00)
[2017-08-09 20:00] VITALS: BP 112/58
[2017-08-09] MEDS: KCL 10 MEQ TAB (MICRO K) PO SCH (21:22)
[2017-08-09] MEDS: rOPINIRole 0.25 MG (REQUIP) TAB PO SCH (21:22)
[2017-08-10] VITALS (10 sets, daily range): BP systolic 102–129; BP diastolic 47–72
[2017-08-10] MEDS: SCOPOLAMINE 1.5 MG (TRANSDERM-SCOP) PATCH TOP SCH (04:33)
[2017-08-10] MEDS: FUROSEMIDE 40 MG (LASIX) TAB PO SCH ×2 (06:06→17:01)
[2017-08-10] MEDS: LACTOBACILLUS Acidoph/Bulgar (LACTINEX/FLORANEX) TAB PO SCH ×3 (06:06→17:01)
[2017-08-10] MEDS: LEVOTHYROXINE 100 MCG (LEVOTHROID) TAB PO SCH (06:06)
[2017-08-10] MEDS: PANTOPRAZOLE 40 MG (PROTONIX) TAB PO SCH (06:06)
[2017-08-10] MEDS: CATHETER FLUSH 10 ML SYR IV SCH ×3 (06:07→22:05)
[2017-08-10] MEDS: MEROPENEM 500 MG in NS (IVPB) 100 ML IV SCH ×3 (06:07→22:05)
[2017-08-10 06:49] LABS: MEAN PLATELET VOLUME 10.1 FL (7.4-10.4); RED BLOOD COUNT 2.38 10^6/uL (4.35-5.85); RED CELL DISTRIBUTION WIDTH 15.3 % (10.0-14.5); WHITE BLOOD COUNT 5.1 10^3/uL (4.3-11.0)
[2017-08-10 06:53] LABS: INR 1.9 (0.8-1.4); PROTHROMBIN TIME PATIENT 21.6 SEC (12.2-14.7)
[2017-08-10 06:55] LABS: CALCIUM 8.5 MG/DL (8.5-10.1); CHLORIDE 103 MMOL/L (98-107); POTASSIUM 4.3 MMOL/L (3.6-5.0); SODIUM 140 MMOL/L (135-145)
[2017-08-10 07:07] LABS: ANION GAP 8 MMOL/L (5-14); BLOOD UREA NITROGEN 14 MG/DL (7-18); BUN/CREATININE RATIO 16; CARBON DIOXIDE 29 MMOL/L (21-32); CREATININE SERUM 0.89 MG/DL (0.60-1.30); GFR ESTIMATED > 60; GLUCOSE 87 MG/DL (70-105); MAGNESIUM 1.9 MG/DL (1.8-2.4)
[2017-08-10] MEDS: LORATADINE (CLARITIN) 10 MG TAB PO SCH (08:08)
[2017-08-10] MEDS: meTOproloL SUCCINATE 50 MG (TOPROL XL) TAB PO SCH (08:08)
[2017-08-10] MEDS: MEXILETINE 150 MG (MEXITIL) CAPSULE PO SCH (08:08)
[2017-08-10] MEDS: ISOSORBIDE MONONITRATE 30 MG (IMDUR) TAB PO SCH (08:08)
[2017-08-10] MEDS: DIGOXIN 0.125 MG (LANOXIN) TAB PO SCH (08:08)
[2017-08-10] MEDS: SACUBITRIL/VALSARTAN 24/26 MG (ENTRESTO) TABLET PO SCH ×2 (08:08→22:05)
[2017-08-10] MEDS ORDERED: FUROSEMIDE 40 MG/4 ML INJ (LASIX) IVP NR (09:00)
--- NOTE | 2017-08-10 09:06 | Cardiology Progress Note ---
Subjective Date Seen by Provider: Aug 10, 2017 Time Seen by Provider: 09:05 Subjective/Events-last exam Patient is feeling better, mild dyspnea, no chest pain, no palpitation. Review of Systems General: No Chills, No Night Sweats, No Fatigue, No Malaise, No Appetite, No Other HEENT: No Head Aches, No Visual Changes, No Eye Pain, No Ear Pain, No Dysphasia , No Sinus Congestion, No Post Nasal Drip, No Sore Throat, No Other Pulmonary: Dyspnea, No Cough, No Pleuritic Chest Pain, No Other Cardiovascular: No: Chest Pain, Palpitations, Orthopnea, Paroxysmal Noc. Dyspnea, Edema, Lt Headedness, Other Objective-Cardiology Exam Last Set of Vital Signs Vital Signs 08/10/17 08:00 Temp 97.5 Pulse 79 Resp 20 B/P (MAP) 103/56 (72) Pulse Ox 95 O2 Delivery Nasal Cannula O2 Flow Rate 3.00 Capillary Refill : I&O Intake and Output 08/10/17 00:00 Intake Total 1955 ml Output Total 800 ml Balance 1155 ml Intake Oral 1855 ml IV Total 100 ml Output Urine Total 800 ml # Voids 1 General: Alert, Oriented X3, Cooperative, No Acute Distress HEENT: Atraumatic, PERRLA Neck: Supple, No JVD, No Thyromegaly Lungs: Clear to Auscultation, Normal Air Movement Heart: Normal S1, Normal S2, Other (metallic click, irregular rhythm) Abdomen: Normal Bowel Sounds, Soft, No Tenderness, No Hepatosplenomegaly, No Masses, Other Extremities: No Clubbing, No Cyanosis, No Edema, Normal Pulses, No Tenderness/ Swelling Skin: Other (R calf wound, inferior -- 1.7 x 0.6 x 0.2 cm, 100% regenerating tissue.) Neuro: Normal Gait, Normal Speech, Normal Tone, Sensation Intact Psych/Mental Status: Mental Status NL, Mood NL Results Lab Laboratory Tests 08/10/17 06:37 A/P-Cardiology Admission Diagnosis shortness of breath UTI Anemia Abdominal pain Assessment/Plan Shortness of breath, acute on chronic congestive heart failure left ventricular systolic dysfunction, ejection fraction 30-35 percent, history of SHEAR HELPER-D implant in August 2012, better at this time, back to oral Lasix, I will give additional dose of IV today after blood transfusion Anemia, slightly worse, I will give 1 unit of packed RBCs and continue to monitor H&H Mild abdominal pain, history of cholecystectomy, ultrasound showed mild to moderate ascites and hepatic congestion, left-sided pleural effusion. Reporting improvement in her pain. Urinary tract infection, Escherichia coli, receiving antibiotics, managed by primary care physician Status post episode of chest pain, reporting improvement, no further episodes were reported. 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 Prabhakar. Echocardiogram showed ejection fraction 30-35 percent, severely dilated left atrium, moderate severe mitral stenosis, moderate to severe mitral regurgitation, prosthetic valve in the aortic position functioning normally, PA pressure 45 mmHg done in December 2016 Nonhealing foot ulcer, patient has venous insufficiency on the right side that required ablation, peripheral angiogram showed a gradient across the SFA of 50- 60 mmHg, severe stenosis at the proximal anterior tibial artery on the right side underwent balloon angioplasty using 3.0 x 80 [place] with multiple inflation with mild residual stenosis, total occlusion at the ankle level and at the arch level, total occlusion of the tibioperoneal trunk with collateral filling the posterior tibial through the right anterior tibial, heavily calcified right SFA with moderate to severe stenosis with a gradient of 50-60 mmHg across the mid SFA. Diffuse disease at the left SFA, vision at the trifurcation level with collateral at the left lower extremity, diffuse atherosclerotic disease at the abdominal aorta. LINDA was done in the office and showed improvement. 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 discussed with Dr. Paeg, he recommended medical therapy at this time considering her to be high risk for morbidity and mortality if she undergoes valve surgery. She is not a candidate for mitral clip secondary to her mitral stenosis she was referred back to me for continuous following and we will contact him if needed Coronary artery disease, small vessel disease, nonobstructive disease, the prosthetic valve was functioning normally. Pulmonary artery pressure was 50/26 , pulmonary capillary wedge pressure 35, right ventricular pressure 53/17. cardiac catheterization was done in September 2014. Stress test done in December 2016 showing no ischemia or infarction, EF 41 percent, continue to monitor Carotid stenosis, continue to monitor, followed by heart and vascular care. 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 followed and monitored by heart and vascular care. Hypertension-controlled,continue to monitor BP/HR. Hyperlipidemia, continue on current medication monitor lipids Clinical Quality Measures DVT/VTE Risk/Contraindication: Risk Factor Score Per Nursin PRANEETH SHUKLA MD Aug 10, 2017 09:06
--- NOTE | 2017-08-10 10:11 | Physical Therapy Daily Note ---
PT Daily Note-Current Subjective Patient is seated in chair upon PT entering the room. Patient states she is feeling better today and agrees to PT intervention. Pain Numeric Pain Scale: 0-No Pain Location: No Pain Reported Appearance Patient appears healthy. She is left post tx seated in chair with call light in reach. Mental Status Patient Orientation: Normal For Age Transfers Functional [place] Measure 0=Not Assessed/NA 4=Minimal Assistance 1=Total Assistance 5=Supervision or Setup 2=Maximal Assistance 6=Modified [place] 3=Moderate Assistance 7=Complete IndependenceIRFPAI Quality Coding Scale 6 Independent with activity with or without an assistive device 5 Patient requires set up or clean up by helper. Patient completes activity by themselves 4 Supervision or touching assist (CGA). [place] provide cues , steadying assist 3 The helper provides less than half the effort to complete the activity 2 The helper provides more than half the effort to complete the activity 1 Dependent. The helper does all the effort to complete an activity 7 Patient refused to complete or attempt activity 9 The patient did not perform the activity before the current illness or injury 88 Not attempted due to Medical conditions or safety concerns Sit to/from Stand: 6 Patient performs sit to/from stand transfer with mod I. Weight Bearing Right Lower Extremity: Right Full Weight Bearing Left Lower Extremity: Left Full Weight Bearing Gait Training Does the Patient Walk?: Yes Gait (FIM): 5 Distance: 800' Gait Level of Assist: 5 Gait Persons Needed: 1 Patient expressed desire to walk without FWW again before leaving the hospital. Patient ambulates safely with normal gait pattern wiht no assistive device. PT was SBA due to first time ambulating without assistive device in a few days. Exercises Seated Therapy Exercises: Ankle pumps, Long arc quads, Hip flexion, Hip abd/add Seated Reps: 20 Assessment Current Status: Good Progress Patient is able to ambulate safely and perform therapeutic interventions safely reporting "a little SOB, but not bad." Pt will continue to progress interventions to improve functional independence. PT Nursing Home Goals Nursing Home Goals PT Nursing Home Goals Time Frame: Aug 15, 2017 Transfers (B,C,W/C) (FIM): 6 Sit to Lying (QC): 6 Lying-Sitting on Side/Bed(QC): 6 Sit to Stand (QC): 6 Rollin Gait (FIM): 6 Distance: 800' Walk 50ft with 2 Turns (QC): 6 Walk 150 ft (QC): 6 Gait Assistive Device: FWW PT Plan Problem List Problem List: Activity Tolerance, Functional Strength, Safety, Balance, Gait Treatment/Plan Treatment Plan: Continue Plan of Care Treatment Plan: Education, Functional Activity Rick, Functional Strength, Gait , Safety, Therapeutic Exercise Treatment Duration: Aug 15, 2017 Frequency: 6 times per week Estimated Hrs Per Day: .25 hour per day (15-30 min) Patient and/or Family Agrees t: Yes Time/GCodes Time In: 907 Time Out: 931 Total Billed Treatment Time: 24 Total Billed Treatment 1 visit GT 11 min EX 13 min KATHERINE RUTHERFORD PT Aug 10, 2017 10:11
--- NOTE | 2017-08-10 10:21 | Progress Note-Hospitalist ---
Subjective HPI/CC On Admission Date Seen by Provider: Aug 10, 2017 Time Seen by Provider: 10:10 Subjective/Events-last exam Pt reports feeling great. Would like to DC Sunday. Advised that may not be possible and she was understanding. She denies any abd pain. Reports last BM this morning. Objective Exam Vital Signs Vital Sign - Last 12Hours 08/08/17 12:00 Temp 98.3 Pulse 106 Resp 22 B/P (MAP) 105/56 (72) Pulse Ox 94 O2 Delivery Nasal Cannula O2 Flow Rate 3.00 Capillary Refill : General Appearance: No Apparent Distress, WD/WN Respiratory: Lungs Clear, No Respiratory Distress Cardiovascular: Regular Rate, Rhythm, Systolic Murmur Gastrointestinal: Normal Bowel Sounds, Non Tender, Soft Neurologic/Psychiatric: Alert, Oriented x3, Normal Mood/Affect Results/Procedures Lab Laboratory Tests 08/10/17 06:37 Assessment/Plan Assessment and Plan Assess & Plan/Chief Complaint ESBL e coli uti Diagnosis/Problems Diagnosis/Problems (1) UTI (urinary tract infection) Assessment & Plan: ESBL On precautions Continue Merrem Day 11/05 Qualifiers: Qualified Codes: N30.01 - Acute cystitis with hematuria (2) Acute exacerbation of congestive heart failure Status: Acute Assessment & Plan: Now on oral lasix but getting 1x dose of lasix following transfusion Trend I/Os (3) Chronic anemia Status: Acute Assessment & Plan: Continue Venofer Dr Parker ordered 1upRBCs to be followed by divya (4) Aortic valve replaced Assessment & Plan: INR subtherapeutic but off of Warfarin as INR at gone up to 4.2 Will resume warfarin Cardiology consulted, appreciate recs (5) Prophylactic measure Assessment & Plan: Saline lock HH diet Warfarin VENANCIO ARREAGA MD Aug 10, 2017 10:21
[2017-08-10] MEDS ORDERED: NS IV 500 ML 500 ML IV ONE (10:30)
--- NOTE | 2017-08-10 11:51 | Occupational Ther Daily Note ---
OT Current Status-Daily Note Subjective Pt in bed, agrees to treatment. RN states pt is receiving blood at this time, but is okay for UE exercises. Mental Status/Objective Functional [place] Measure 0=Not Assessed/NA 4=Minimal Assistance 1=Total Assistance 5=Supervision or Setup 2=Maximal Assistance 6=Modified [place] 3=Moderate Assistance 7=Complete [place] Attachments: IV, Oxygen ADL-Treatment Functional [place] Measure 0=Not Assessed/NA 4=Minimal Assistance 1=Total Assistance 5=Supervision or Setup 2=Maximal Assistance 6=Modified [place] 3=Moderate Assistance 7=Complete IndependenceIRFPAI Quality Coding Scale 6 Independent with activity with or without an assistive device 5 Patient requires set up or clean up by helper. Patient completes activity by themselves 4 Supervision or touching assist (CGA). [place] provide cues , steadying assist 3 The helper provides less than half the effort to complete the activity 2 The helper provides more than half the effort to complete the activity 1 Dependent. The helper does all the effort to complete an activity 7 Patient refused to complete or attempt activity 9 The patient did not perform the activity before the current illness or injury 88 Not attempted due to Medical conditions or safety concerns Other Treatment Pt completed bilateral UE exercises while supine in bed. Pt performed AROM x10 reps at all joints to increase overall strength and activity tolerance needed for functional tasks. Rest breaks taken between exercises. Pt tolerated well without signs of fatigue. Pt states she will be going home Sunday or Sunday. Pt states daughter will be staying with her for a short time at d/c to assist as needed. Pt has no questions or concerns at this time. Pt resting in bed with needs met after session. OT Short Term Goals Short Term Goals 1=Demonstrate adherence to instructed precautions during ADL tasks. 2=Patient will verbalize/demonstrate understanding of assistive devices/ modifications for ADL. 3=Patient will improve strength/tolerance for activity to enable patient to perform ADL's. OT Care Home Goals Varnish Melter Goals Time Frame: Aug 22, 2017 Eating (FIM): 6 Eating (QC): 6 Groomin Oral Hygiene (QC): 6 Bathing(FIM): 5 Upper Body Dressing(FIM): 6 Lower Body Dressing(FIM): 6 Toileting(FIM): 6 Toileting Hygiene (QC): 6 Toilet/Commode Transfer(FIM): 6 Toilet/Commode Transfer (QC): 6 Additional Goals: 2-Verbalize Understanding, 3-ImproveStrength/Rick 1=Demonstrate adherence to instructed precautions during ADL tasks. 2=Patient will verbalize/demonstrate understanding of assistive devices/ modifications for ADL. 3=Patient will improve strength/tolerance for activity to enable patient to perform ADL's. OT Education/Plan Problem List/Assessment Pt to benefit from skilled OT intervention for ADL training, transfers, strengthening, and home safety education to increase level of independence and allow safe return home. Discharge Recommendations Plan/Recommendations: Continue POC Treatment Plan/Plan of Care Patient would benefit from OT for education, treatment and training to promote independence in ADL's, mobility, safety and/or upper extremity function for ADL' s. Plan of Care: ADL Retraining, Functional Mobility, UE Funct Exercise/Act Treatment Duration: Aug 22, 2017 Frequency: 5 times per week Estimated Hrs Per Day: .25 hour per day Agreement: Yes Rehab Potential: Good Time/GCodes Start Time: 11:02 Stop Time: 11:17 Total Time Billed (hr/min): 15 Billed Treatment Time 1 visit, EX(15minutes) KAN FLEMING OT Aug 10, 2017 11:51
[2017-08-10] MEDS ORDERED: FUROSEMIDE 40 MG/4 ML INJ (LASIX) ONE (13:16)
[2017-08-10] MEDS: IRON SUCROSE INJECTION 200 MG in NS (IVPB) 100 ML IV SCH (13:34)
[2017-08-10] MEDS: warFARin 2 MG (COUMADIN) TAB PO SCH (17:01)
[2017-08-10] MEDS ORDERED: warFARin 2 MG (COUMADIN) TAB PO SCH (18:00)
[2017-08-10] MEDS: KCL 10 MEQ TAB (MICRO K) PO SCH (22:05)
[2017-08-10] MEDS: rOPINIRole 0.25 MG (REQUIP) TAB PO SCH (22:05)
[2017-08-11] VITALS: BP 109/63
[2017-08-11] MEDS: ACETAMINOPHEN 500 MG TAB (TYLENOL) PO PRN ×2 (03:10→16:19)
[2017-08-11 04:00] VITALS: BP 117/61
[2017-08-11 05:59] LABS: MEAN PLATELET VOLUME 10.1 FL (7.4-10.4); RED BLOOD COUNT 2.56 10^6/uL (4.35-5.85); RED CELL DISTRIBUTION WIDTH 16.8 % (10.0-14.5); WHITE BLOOD COUNT 6.2 10^3/uL (4.3-11.0)
[2017-08-11 06:08] LABS: INR 2.1 (0.8-1.4); PROTHROMBIN TIME PATIENT 23.9 SEC (12.2-14.7)
[2017-08-11] MEDS: LACTOBACILLUS Acidoph/Bulgar (LACTINEX/FLORANEX) TAB PO SCH ×3 (06:15→16:18)
[2017-08-11] MEDS: LEVOTHYROXINE 100 MCG (LEVOTHROID) TAB PO SCH (06:15)
[2017-08-11] MEDS: PANTOPRAZOLE 40 MG (PROTONIX) TAB PO SCH (06:15)
[2017-08-11] MEDS: FUROSEMIDE 40 MG (LASIX) TAB PO SCH ×2 (06:15→16:19)
[2017-08-11] MEDS: MEROPENEM 500 MG in NS (IVPB) 100 ML IV SCH ×3 (06:15→21:25)
[2017-08-11] MEDS: CATHETER FLUSH 10 ML SYR IV SCH ×3 (06:16→21:25)
[2017-08-11 06:36] LABS: ALBUMIN 3.2 GM/DL (3.2-4.5); BILIRUBIN,TOTAL 0.7 MG/DL (0.1-1.0); CALCIUM 8.8 MG/DL (8.5-10.1); CREATININE SERUM 0.91 MG/DL (0.60-1.30); POTASSIUM 4.1 MMOL/L (3.6-5.0); TOTAL PROTEIN 6.3 GM/DL (6.4-8.2)
[2017-08-11 08:00] VITALS: BP 110/88
[2017-08-11] MEDS: MEXILETINE 150 MG (MEXITIL) CAPSULE PO SCH (08:34)
[2017-08-11] MEDS: meTOproloL SUCCINATE 50 MG (TOPROL XL) TAB PO SCH (08:34)
[2017-08-11] MEDS: LORATADINE (CLARITIN) 10 MG TAB PO SCH (08:35)
[2017-08-11] MEDS: SACUBITRIL/VALSARTAN 24/26 MG (ENTRESTO) TABLET PO SCH ×2 (08:35→21:25)
[2017-08-11] MEDS: ISOSORBIDE MONONITRATE 30 MG (IMDUR) TAB PO SCH (08:35)
[2017-08-11] MEDS: DIGOXIN 0.125 MG (LANOXIN) TAB PO SCH (08:36)
[2017-08-11] MEDS: MECLIZINE 25 MG (ANTIVERT) TAB PO PRN ×2 (08:41→23:58)
--- NOTE | 2017-08-11 10:04 | Cardiology Progress Note ---
Subjective Date Seen by Provider: Aug 11, 2017 Time Seen by Provider: 10:02 Subjective/Events-last exam Patient is sitting in bed, feeling better. Denied any chest pain, breathing is better Review of Systems General: No Chills, No Night Sweats, No Fatigue, No Malaise, No Appetite, No Other HEENT: No Head Aches, No Visual Changes, No Eye Pain, No Ear Pain, No Dysphasia , No Sinus Congestion, No Post Nasal Drip, No Sore Throat, No Other Pulmonary: No Dyspnea, No Cough, No Pleuritic Chest Pain, No Other Cardiovascular: No: Chest Pain, Palpitations, Orthopnea, Paroxysmal Noc. Dyspnea, Edema, Lt Headedness, Other Objective-Cardiology Exam Last Set of Vital Signs Vital Signs 08/11/17 08:00 Temp 98.2 Pulse 89 Resp 24 B/P (MAP) 110/88 (95) Pulse Ox 92 O2 Delivery Nasal Cannula O2 Flow Rate 2.00 Capillary Refill : Less Than 3 Seconds I&O Intake and Output 08/11/17 00:00 Intake Total 2080 ml Output Total 2000 ml Balance 80 ml Intake Oral 1730 ml IV Total 310 ml Other 40 ml Output Urine Total 2000 ml General: Alert, Oriented X3, Cooperative, No Acute Distress HEENT: Atraumatic, PERRLA Neck: Supple, No JVD, No Thyromegaly Lungs: Clear to Auscultation, Normal Air Movement Heart: Normal S1, Normal S2, Other (metallic click, irregular rhythm) Abdomen: Normal Bowel Sounds, Soft, No Tenderness, No Hepatosplenomegaly, No Masses, Other Extremities: No Clubbing, No Cyanosis, No Edema, Normal Pulses, No Tenderness/ Swelling Skin: Other (R calf wound, inferior -- 1.7 x 0.6 x 0.2 cm, 100% regenerating tissue.) Neuro: Normal Gait, Normal Speech, Normal Tone, Sensation Intact Psych/Mental Status: Mental Status NL, Mood NL Results Lab Laboratory Tests 08/11/17 05:23 A/P-Cardiology Admission Diagnosis shortness of breath UTI Anemia Abdominal pain Assessment/Plan Shortness of breath, acute on chronic congestive heart failure left ventricular systolic dysfunction, ejection fraction 30-35 percent, history of EDITOR INDEX-D implant in August 2012, better at this time, continue to monitor. Anemia, better after transfusion, continue to monitor H&H Mild abdominal pain, history of cholecystectomy, ultrasound showed mild to moderate ascites and hepatic congestion, left-sided pleural effusion. Better at this time Urinary tract infection, Escherichia coli, receiving antibiotics, managed by primary care physician Status post episode of chest pain, reporting improvement, no further episodes were reported. 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 Prabhakar. Echocardiogram showed ejection fraction 30-35 percent, severely dilated left atrium, moderate severe mitral stenosis, moderate to severe mitral regurgitation, prosthetic valve in the aortic position functioning normally, PA pressure 45 mmHg done in December 2016 Nonhealing foot ulcer, patient has venous insufficiency on the right side that required ablation, peripheral angiogram showed a gradient across the SFA of 50- 60 mmHg, severe stenosis at the proximal anterior tibial artery on the right side underwent balloon angioplasty using 3.0 x 80 [place] with multiple inflation with mild residual stenosis, total occlusion at the ankle level and at the arch level, total occlusion of the tibioperoneal trunk with collateral filling the posterior tibial through the right anterior tibial, heavily calcified right SFA with moderate to severe stenosis with a gradient of 50-60 mmHg across the mid SFA. Diffuse disease at the left SFA, vision at the trifurcation level with collateral at the left lower extremity, diffuse atherosclerotic disease at the abdominal aorta. LINDA was done in the office and showed improvement. 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 discussed with Dr. Page, he recommended medical therapy at this time considering her to be high risk for morbidity and mortality if she undergoes valve surgery. She is not a candidate for mitral clip secondary to her mitral stenosis she was referred back to me for continuous following and we will contact him if needed Coronary artery disease, small vessel disease, nonobstructive disease, the prosthetic valve was functioning normally. Pulmonary artery pressure was 50/26 , pulmonary capillary wedge pressure 35, right ventricular pressure 53/17. cardiac catheterization was done in September 2014. Stress test done in December 2016 showing no ischemia or infarction, EF 41 percent, continue to monitor Carotid stenosis, continue to monitor, followed by heart and vascular care. 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 followed and monitored by heart and vascular care. Hypertension-controlled,continue to monitor BP/HR. Hyperlipidemia, continue on current medication monitor lipids Clinical Quality Measures DVT/VTE Risk/Contraindication: Risk Factor Score Per Nursin PRANEETH SHUKLA MD Aug 11, 2017 10:04
--- NOTE | 2017-08-11 11:10 | Physical Therapy Progress Note ---
Therapy Progress Note Pt sitting EOB, declined to participate with PT. Pt states she just returned from a long walk with nursing to assess O2 tolerance. Agrees to ambulate with nursing later this date. MAKENZIE SAMUEL DPT Aug 11, 2017 11:10
[2017-08-11 12:00] VITALS: BP 107/55
[2017-08-11 15:21] VITALS: BP 108/61
[2017-08-11] MEDS: warFARin 2 MG (COUMADIN) TAB PO SCH (17:29)
[2017-08-11 19:26] VITALS: BP 105/53
[2017-08-11] MEDS: rOPINIRole 0.25 MG (REQUIP) TAB PO SCH (21:25)
[2017-08-11] MEDS: KCL 10 MEQ TAB (MICRO K) PO SCH (21:25)
[2017-08-12 05:42] LABS: INR 2.1 (0.8-1.4); PROTHROMBIN TIME PATIENT 23.1 SEC (12.2-14.7)
[2017-08-12 06:00] VITALS: BP 111/57
[2017-08-12] MEDS: MEROPENEM 500 MG in NS (IVPB) 100 ML IV SCH ×3 (06:10→22:10)
[2017-08-12] MEDS: LEVOTHYROXINE 100 MCG (LEVOTHROID) TAB PO SCH (06:11)
[2017-08-12] MEDS: PANTOPRAZOLE 40 MG (PROTONIX) TAB PO SCH (06:11)
[2017-08-12] MEDS: LACTOBACILLUS Acidoph/Bulgar (LACTINEX/FLORANEX) TAB PO SCH ×3 (06:11→16:42)
[2017-08-12] MEDS: CATHETER FLUSH 10 ML SYR IV SCH ×3 (06:11→20:41)
[2017-08-12] MEDS: FUROSEMIDE 40 MG (LASIX) TAB PO SCH ×2 (06:11→16:42)
[2017-08-12] MEDS: SACUBITRIL/VALSARTAN 24/26 MG (ENTRESTO) TABLET PO SCH ×2 (08:40→20:36)
[2017-08-12] MEDS: LORATADINE (CLARITIN) 10 MG TAB PO SCH (08:40)
[2017-08-12] MEDS: DIGOXIN 0.125 MG (LANOXIN) TAB PO SCH (08:40)
[2017-08-12] MEDS: ISOSORBIDE MONONITRATE 30 MG (IMDUR) TAB PO SCH (08:40)
[2017-08-12] MEDS: MEXILETINE 150 MG (MEXITIL) CAPSULE PO SCH (08:40)
[2017-08-12] MEDS: meTOproloL SUCCINATE 50 MG (TOPROL XL) TAB PO SCH (08:40)
--- NOTE | 2017-08-12 09:43 | Cardiology Progress Note ---
Subjective Date Seen by Provider: Aug 12, 2017 Time Seen by Provider: 09:39 Subjective/Events-last exam patient is laying down in bed, had an episode of shortness of breath earlier this morning after going to the bathroom required a higher dose of oxygen. Feeling better at this time. Review of Systems General: No Chills, No Night Sweats, No Fatigue, No Malaise, No Appetite, No Other HEENT: No Head Aches, No Visual Changes, No Eye Pain, No Ear Pain, No Dysphasia , No Sinus Congestion, No Post Nasal Drip, No Sore Throat, No Other Pulmonary: Dyspnea, Cough, No Pleuritic Chest Pain, No Other Cardiovascular: Chest Pain (tightness), No: Palpitations, Orthopnea, Paroxysmal Noc. Dyspnea, Edema, Lt Headedness, Other Objective-Cardiology Exam Last Set of Vital Signs Vital Signs 08/12/17 08/12/17 06:00 07:11 Temp 98.0 Pulse 89 Resp 18 B/P (MAP) 111/57 (75) Pulse Ox 93 O2 Delivery Nasal Cannula O2 Flow Rate 2.00 Capillary Refill : Less Than 3 Seconds I&O Intake and Output 08/12/17 00:00 Intake Total 2140 ml Output Total 1600 ml Balance 540 ml Intake Oral 2140 ml Output Urine Total 1600 ml # Bowel Movements 2 General: Alert, Oriented X3, Cooperative, No Acute Distress HEENT: Atraumatic, PERRLA Neck: Supple, No JVD, No Thyromegaly Lungs: Clear to Auscultation, Normal Air Movement Heart: Normal S1, Normal S2, Other (metallic click, irregular rhythm) Abdomen: Normal Bowel Sounds, Soft, No Tenderness, No Hepatosplenomegaly, No Masses, Other Extremities: No Clubbing, No Cyanosis, No Edema, Normal Pulses, No Tenderness/ Swelling Skin: Other (R calf wound, inferior -- 1.7 x 0.6 x 0.2 cm, 100% regenerating tissue.) Neuro: Normal Gait, Normal Speech, Normal Tone, Sensation Intact Psych/Mental Status: Mental Status NL, Mood NL Results Lab Laboratory Tests Test 08/12/17 05:10 Range/Units Prothrombin Time 23.1 H 12.2-14.7 SEC INR Comment 2.1 H 0.8-1.4 A/P-Cardiology Admission Diagnosis shortness of breath UTI Anemia Abdominal pain Assessment/Plan Shortness of breath, acute on chronic congestive heart failure left ventricular systolic dysfunction, ejection fraction 30-35 percent, history of SECURITY EXPERT-D implant in August 2012, addendum another episode this morning, lungs did not sound different from before. I will give her one additional dose of Zaroxolyn 2.5 mg and I would recommend using Zaroxolyn as needed for shortness of breath in addition to the Lasix 40 twice a day. Anemia, better after transfusion, I will evaluate CBC in the morning Mild abdominal pain, history of cholecystectomy, ultrasound showed mild to moderate ascites and hepatic congestion, left-sided pleural effusion, feeling better. No further episodes of abdominal pain Urinary tract infection, Escherichia coli, receiving antibiotics, managed by primary care physician Status post episode of chest pain, reporting improvement, no further episodes were reported. 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 Prabhakar. Echocardiogram showed ejection fraction 30-35 percent, severely dilated left atrium, moderate severe mitral stenosis, moderate to severe mitral regurgitation, prosthetic valve in the aortic position functioning normally, PA pressure 45 mmHg done in December 2016 Nonhealing foot ulcer, patient has venous insufficiency on the right side that required ablation, peripheral angiogram showed a gradient across the SFA of 50- 60 mmHg, severe stenosis at the proximal anterior tibial artery on the right side underwent balloon angioplasty using 3.0 x 80 [place] with multiple inflation with mild residual stenosis, total occlusion at the ankle level and at the arch level, total occlusion of the tibioperoneal trunk with collateral filling the posterior tibial through the right anterior tibial, heavily calcified right SFA with moderate to severe stenosis with a gradient of 50-60 mmHg across the mid SFA. Diffuse disease at the left SFA, vision at the trifurcation level with collateral at the left lower extremity, diffuse atherosclerotic disease at the abdominal aorta. LINDA was done in the office and showed improvement. 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 discussed with Dr. Page, he recommended medical therapy at this time considering her to be high risk for morbidity and mortality if she undergoes valve surgery. She is not a candidate for mitral clip secondary to her mitral stenosis she was referred back to me for continuous following and we will contact him if needed Coronary artery disease, small vessel disease, nonobstructive disease, the prosthetic valve was functioning normally. Pulmonary artery pressure was 50/26 , pulmonary capillary wedge pressure 35, right ventricular pressure 53/17. cardiac catheterization was done in September 2014. Stress test done in December 2016 showing no ischemia or infarction, EF 41 percent, continue to monitor Carotid stenosis, continue to monitor, followed by heart and vascular care. 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 followed and monitored by heart and vascular care. Hypertension-controlled,continue to monitor BP/HR. Hyperlipidemia, continue on current medication monitor lipids Clinical Quality Measures DVT/VTE Risk/Contraindication: Risk Factor Score Per Nursin PRANEETH SHUKLA MD Aug 12, 2017 09:43
[2017-08-12] MEDS ORDERED: METOLAZONE 2.5 MG (ZAROXOLYN) TAB PO NR (09:45)
--- NOTE | 2017-08-12 11:26 | Progress Note-Hospitalist ---
Subjective HPI/CC On Admission Date Seen by Provider: Aug 12, 2017 Time Seen by Provider: 11:19 Subjective/Events-last exam Reports feeling well. No complaints. No abd pain. Had BM this AM. Denies any DME needs at home. Objective Exam Vital Signs Vital Sign - Last 12Hours 08/08/17 12:00 Temp 98.3 Pulse 106 Resp 22 B/P (MAP) 105/56 (72) Pulse Ox 94 O2 Delivery Nasal Cannula O2 Flow Rate 3.00 Capillary Refill : Less Than 3 Seconds General Appearance: No Apparent Distress, WD/WN Respiratory: Lungs Clear, Normal Breath Sounds Cardiovascular: Regular Rate, Rhythm, Systolic Murmur Gastrointestinal: Normal Bowel Sounds, Non Tender, Soft Extremity: Non Tender, No Calf Tenderness, No Pedal Edema Neurologic/Psychiatric: Alert, Oriented x3 Assessment/Plan Assessment and Plan Assess & Plan/Chief Complaint ESBL e coli uti Diagnosis/Problems Diagnosis/Problems (1) UTI (urinary tract infection) Assessment & Plan: ESBL On precautions Continue Merrem Day 01/05 Plan to DC home tomorrow Qualifiers: Qualified Codes: N30.01 - Acute cystitis with hematuria (2) Acute exacerbation of congestive heart failure Status: Acute Assessment & Plan: On Lasix and Metolazone Continue digoxin, Entresto, metoprolol (3) Chronic anemia Status: Acute Assessment & Plan: Continue terrence Patel today Dr Parker ordered 1upRBCs to be followed by divya (4) Aortic valve replaced Assessment & Plan: INR 2.1 Continue Warfarin, recheck INR AM Cardiology consulted, appreciate recs (5) Prophylactic measure Assessment & Plan: Saline lock HH diet Warfarin VENANCIO ARREAGA MD Aug 12, 2017 11:26
[2017-08-12] MEDS: IRON SUCROSE INJECTION 200 MG in NS (IVPB) 100 ML IV SCH (13:24)
[2017-08-12] MEDS: warFARin 2 MG (COUMADIN) TAB PO SCH (17:35)
[2017-08-12 18:00] VITALS: BP 129/60
[2017-08-12] MEDS: KCL 10 MEQ TAB (MICRO K) PO SCH (20:36)
[2017-08-12] MEDS: rOPINIRole 0.25 MG (REQUIP) TAB PO SCH (20:41)
[2017-08-13] MEDS: SCOPOLAMINE 1.5 MG (TRANSDERM-SCOP) PATCH TOP SCH (04:47)
[2017-08-13 06:12] LABS: MEAN PLATELET VOLUME 10.1 FL (7.4-10.4); RED BLOOD COUNT 2.7 10^6/uL (4.35-5.85); RED CELL DISTRIBUTION WIDTH 16.3 % (10.0-14.5); WHITE BLOOD COUNT 6.3 10^3/uL (4.3-11.0)
[2017-08-13 06:20] LABS: INR 2.4 (0.8-1.4); PROTHROMBIN TIME PATIENT 25.9 SEC (12.2-14.7)
[2017-08-13 06:26] LABS: ANION GAP 8 MMOL/L (5-14); BLOOD UREA NITROGEN 12 MG/DL (7-18); BUN/CREATININE RATIO 15; CALCIUM 9.2 MG/DL (8.5-10.1); CARBON DIOXIDE 35 MMOL/L (21-32); CHLORIDE 97 MMOL/L (98-107); GFR ESTIMATED > 60; GLUCOSE 77 MG/DL (70-105); SODIUM 140 MMOL/L (135-145)
[2017-08-13] MEDS: PANTOPRAZOLE 40 MG (PROTONIX) TAB PO SCH (06:39)
[2017-08-13] MEDS: CATHETER FLUSH 10 ML SYR IV SCH (06:39)
[2017-08-13] MEDS: MEROPENEM 500 MG in NS (IVPB) 100 ML IV SCH (06:39)
[2017-08-13] MEDS: LEVOTHYROXINE 100 MCG (LEVOTHROID) TAB PO SCH (06:40)
[2017-08-13] MEDS: LACTOBACILLUS Acidoph/Bulgar (LACTINEX/FLORANEX) TAB PO SCH ×2 (06:40→11:25)
[2017-08-13] MEDS: FUROSEMIDE 40 MG (LASIX) TAB PO SCH (06:40)
[2017-08-13 06:49] VITALS: BP 120/69
--- NOTE | 2017-08-13 08:23 | Cardiology Progress Note ---
Subjective Date Seen by Provider: Aug 13, 2017 Time Seen by Provider: 08:19 Subjective/Events-last exam Patient is sitting up in bed. States dyspnea is improved today. Denies any CP or dyspnea. Wanting to go home. Review of Systems General: No Night Sweats, Fatigue, Malaise HEENT: No Visual Changes, No Dysphasia Pulmonary: Dyspnea, No Cough, No Pleuritic Chest Pain Cardiovascular: Edema, No: Chest Pain, Palpitations, Paroxysmal Noc. Dyspnea Gastrointestinal: No: Nausea, Vomiting, Abdominal Pain Genitourinary: No Dysuria, No Frequency Musculoskeletal: No: neck pain, back pain Neurological: Weakness, No: Numbness, Change in speech, Confusion Objective-Cardiology Exam Last Set of Vital Signs Vital Signs 08/13/17 08/13/17 06:49 07:07 Temp 97.8 Pulse 84 Resp 20 B/P (MAP) 120/69 (86) Pulse Ox 92 O2 Delivery Nasal Cannula O2 Flow Rate 3.00 Capillary Refill : Less Than 3 Seconds I&O Intake and Output 08/13/17 00:00 Intake Total 1730 ml Output Total 3000 ml Balance -1270 ml Intake Oral 1530 ml IV Total 200 ml Output Urine Total 3000 ml # Voids 2 General: Alert, Oriented X3, Cooperative, No Acute Distress HEENT: Atraumatic, PERRLA Neck: Supple, No JVD, No Thyromegaly Lungs: Clear to Auscultation, Normal Air Movement Heart: Normal S1, Normal S2, Other (metallic click, irregular rhythm) Abdomen: Normal Bowel Sounds, Soft, No Tenderness, No Hepatosplenomegaly, No Masses, Other Extremities: No Clubbing, No Cyanosis, No Edema, Normal Pulses, No Tenderness/ Swelling Skin: Other (R calf wound, inferior -- 1.7 x 0.6 x 0.2 cm, 100% regenerating tissue.) Neuro: Normal Gait, Normal Speech, Normal Tone, Sensation Intact Psych/Mental Status: Mental Status NL, Mood NL Results Lab Laboratory Tests 08/13/17 05:34 A/P-Cardiology Admission Diagnosis shortness of breath UTI Anemia Abdominal pain Assessment/Plan Shortness of breath, acute on chronic congestive heart failure left ventricular systolic dysfunction, ejection fraction 30-35 percent, history of PRODUCTION SUPERVISOR-D implant in August 2012, maintained on Lasix 40mg BID. Recommend using Zaroxolyn as needed for shortness of breath in addition to the Lasix 40 twice a day. Anemia, better after transfusion, continue to monitor H/H. Mild abdominal pain, history of cholecystectomy, ultrasound showed mild to moderate ascites and hepatic congestion, left-sided pleural effusion, feeling better. No further episodes of abdominal pain Urinary tract infection, Escherichia coli, receiving antibiotics, managed by primary care physician Status post episode of chest pain, reporting improvement, no further episodes were reported. 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 Prabhakar. Echocardiogram showed ejection fraction 30-35 percent, severely dilated left atrium, moderate severe mitral stenosis, moderate to severe mitral regurgitation, prosthetic valve in the aortic position functioning normally, PA pressure 45 mmHg done in December 2016 Nonhealing foot ulcer, patient has venous insufficiency on the right side that required ablation, peripheral angiogram showed a gradient across the SFA of 50- 60 mmHg, severe stenosis at the proximal anterior tibial artery on the right side underwent balloon angioplasty using 3.0 x 80 [place] with multiple inflation with mild residual stenosis, total occlusion at the ankle level and at the arch level, total occlusion of the tibioperoneal trunk with collateral filling the posterior tibial through the right anterior tibial, heavily calcified right SFA with moderate to severe stenosis with a gradient of 50-60 mmHg across the mid SFA. Diffuse disease at the left SFA, vision at the trifurcation level with collateral at the left lower extremity, diffuse atherosclerotic disease at the abdominal aorta. LINDA was done in the office and showed improvement. 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 discussed with Dr. Page, he recommended medical therapy at this time considering her to be high risk for morbidity and mortality if she undergoes valve surgery. She is not a candidate for mitral clip secondary to her mitral stenosis she was referred back to us for continuous following and we will contact him if needed Coronary artery disease, small vessel disease, nonobstructive disease, the prosthetic valve was functioning normally. Pulmonary artery pressure was 50/26 , pulmonary capillary wedge pressure 35, right ventricular pressure 53/17. cardiac catheterization was done in September 2014. Stress test done in December 2016 showing no ischemia or infarction, EF 41 percent, continue to monitor Carotid stenosis, continue to monitor, followed by heart and vascular care. 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 followed and monitored by heart and vascular care. Hypertension-controlled,continue to monitor BP/HR. Hyperlipidemia, continue on current medication monitor lipids Clinical Quality Measures DVT/VTE Risk/Contraindication: Risk Factor Score Per Nursin THANH LAWTON Aug 13, 2017 08:23
[2017-08-13] MEDS ORDERED: METO2.5T PO (08:35)
--- NOTE | 2017-08-13 09:36 | Therapy Team Discharge Summary ---
Therapy Discharge Summary Discharge Recommendations Date of Discharge Therapy D/C Recommendations: Home w/ Family Support Physical Therapy Patient is currently at an independent LOF with all gross motor skills and will dismiss to home on this date. Upon initial evaluation, patient required CGA to SBA with functional mobility with FWW for safety and demonstrated increase in SOA with minimal activity. Patient has attained all functional goals and is safe to dismiss to home, from a PT standpoint. Occupational Therapy Decreased Activ Tolerance PT Slasher Sawyer Goals Slasher Sawyer Goals PT Slasher Sawyer Goals Time Frame: Aug 15, 2017 Transfers (B,C,W/C) (FIM): 6 (met 08/13/17) Sit to Lying (QC): 6 (met 08/13/17) Lying-Sitting on Side/Bed(QC): 6 (met 08/13/17) Sit to Stand (QC): 6 (met 08/13/17) Rollin (met 08/13/17) Gait (FIM): 6 (met 08/13/17) Distance: 800' Walk 50ft with 2 Turns (QC): 6 (met 08/13/17) Walk 150 ft (QC): 6 (met 08/13/17) Gait Assistive Device: FWW OT Slasher Sawyer Goals [facility] Goals Time Frame: Aug 22, 2017 Eating (FIM): 6 Eating (QC): 6 Groomin Oral Hygiene (QC): 6 Bathing(FIM): 5 Upper Body Dressing(FIM): 6 Lower Body Dressing(FIM): 6 Toileting(FIM): 6 Toileting Hygiene (QC): 6 Toilet/Commode Transfer(FIM): 6 Toilet/Commode Transfer (QC): 6 Additional Goals: 2-Verbalize Understanding, 3-ImproveStrength/Rick 1=Demonstrate adherence to instructed precautions during ADL tasks. 2=Patient will verbalize/demonstrate understanding of assistive devices/ modifications for ADL. 3=Patient will improve strength/tolerance for activity to enable patient to perform ADL's. KATHERINE RUTHERFORD PT Aug 13, 2017 09:36
--- NOTE | 2017-08-13 09:36 | Physical Therapy Daily Note ---
PT Daily Note-Current Subjective Patient is very agreeable to participate with PT. She reports she is going home on this date and has no concerns at this time. Family present. Pain Numeric Pain Scale: 0-No Pain Location: No Pain Reported Mental Status Patient Orientation: Normal For Age Attachments: Oxygen (3L) Transfers Functional [place] Measure 0=Not Assessed/NA 4=Minimal Assistance 1=Total Assistance 5=Supervision or Setup 2=Maximal Assistance 6=Modified [place] 3=Moderate Assistance 7=Complete IndependenceIRFPAI Quality Coding Scale 6 Independent with activity with or without an assistive device 5 Patient requires set up or clean up by helper. Patient completes activity by themselves 4 Supervision or touching assist (CGA). [place] provide cues , steadying assist 3 The helper provides less than half the effort to complete the activity 2 The helper provides more than half the effort to complete the activity 1 Dependent. The helper does all the effort to complete an activity 7 Patient refused to complete or attempt activity 9 The patient did not perform the activity before the current illness or injury 88 Not attempted due to Medical conditions or safety concerns Transfers (B, C, W/C) (FIM): 6 Scootin Roll Left to Right (QC): 6 Supine to/from Sit: 6 Sit to/from Stand: 6 Sit to Lying (QC): 6 Sit to Stand (QC): 6 Chair/[id number] Xfer(QC): 6 Bed to/from Chair: 6 Weight Bearing Right Lower Extremity: Right Full Weight Bearing Left Lower Extremity: Left Full Weight Bearing Gait Training Does the Patient Walk?: Yes Gait (FIM): 7 Distance (FIM): 3=150 ft Distance: 1000' Walk 50 ft with 2 Turns(QC): 7 Walk 150 ft (QC): 7 Gait Level of Assist: 7 Gait Assistive Device: None assist for O2 tank Assessment Patient is currently at an independent LOF with all gross motor skills and will dismiss to home on this date. Upon initial evaluation, patient required CGA to SBA with functional mobility with FWW for safety and demonstrated increase in SOA with minimal activity. Patient has attained all functional goals and is safe to dismiss to home, from a PT standpoint. PT Associate Professor Of Criminal Justice Goals Associate Professor Of Criminal Justice Goals PT Custodial Goals Time Frame: Aug 15, 2017 Transfers (B,C,W/C) (FIM): 6 (met 08/13/17) Sit to Lying (QC): 6 (met 08/13/17) Lying-Sitting on Side/Bed(QC): 6 (met 08/13/17) Sit to Stand (QC): 6 (met 08/13/17) Rollin (met 08/13/17) Gait (FIM): 6 (met 08/13/17) Distance: 800' Walk 50ft with 2 Turns (QC): 6 (met 08/13/17) Walk 150 ft (QC): 6 (met 08/13/17) Gait Assistive Device: FWW PT Plan Treatment/Plan Treatment Plan: Discontinue PT, goals met Treatment Plan: Education, Functional Activity Rick, Functional Strength, Gait , Safety, Therapeutic Exercise Treatment Duration: Aug 15, 2017 Frequency: 6 times per week Estimated Hrs Per Day: .25 hour per day (15-30 min) Patient and/or Family Agrees t: Yes Discharge Recommendations Therapy D/C Recommendations: Home w/ Family Support Time/GCodes Time In: 906 Time Out: 921 Total Billed Treatment Time: 15 Total Billed Treatment 1 visit FA 15 min KATHERINE RUTHERFORD PT Aug 13, 2017 09:36
[2017-08-13] MEDS: LORATADINE (CLARITIN) 10 MG TAB PO SCH (09:41)
[2017-08-13] MEDS: meTOproloL SUCCINATE 50 MG (TOPROL XL) TAB PO SCH (09:41)
[2017-08-13] MEDS: DIGOXIN 0.125 MG (LANOXIN) TAB PO SCH (09:41)
[2017-08-13] MEDS: ISOSORBIDE MONONITRATE 30 MG (IMDUR) TAB PO SCH (09:41)
[2017-08-13] MEDS: SACUBITRIL/VALSARTAN 24/26 MG (ENTRESTO) TABLET PO SCH (09:41)
[2017-08-13] MEDS: MEXILETINE 150 MG (MEXITIL) CAPSULE PO SCH (09:41)
--- NOTE | 2017-08-13 09:49 | Cardiology Progress Note ---
Subjective Date Seen by Provider: Aug 13, 2017 Time Seen by Provider: 09:48 Subjective/Events-last exam patient is laying down in bed, denied any chest pain, breathing is better. Denied any palpitation Review of Systems General: No Chills, No Night Sweats, No Fatigue, No Malaise, No Appetite, No Other HEENT: No Head Aches, No Visual Changes, No Eye Pain, No Ear Pain, No Dysphasia , No Sinus Congestion, No Post Nasal Drip, No Sore Throat, No Other Pulmonary: No Dyspnea, No Cough, No Pleuritic Chest Pain, No Other Cardiovascular: No: Chest Pain, Palpitations, Orthopnea, Paroxysmal Noc. Dyspnea, Edema, Lt Headedness, Other Objective-Cardiology Exam Last Set of Vital Signs Vital Signs 08/13/17 08/13/17 06:49 07:07 Temp 97.8 Pulse 84 Resp 20 B/P (MAP) 120/69 (86) Pulse Ox 92 O2 Delivery Nasal Cannula O2 Flow Rate 3.00 Capillary Refill : Less Than 3 Seconds I&O Intake and Output 08/13/17 00:00 Intake Total 1730 ml Output Total 3000 ml Balance -1270 ml Intake Oral 1530 ml IV Total 200 ml Output Urine Total 3000 ml # Voids 2 General: Alert, Oriented X3, Cooperative, No Acute Distress HEENT: Atraumatic, PERRLA Neck: Supple, No JVD, No Thyromegaly Lungs: Clear to Auscultation, Normal Air Movement Heart: Normal S1, Normal S2, Other (metallic click, irregular rhythm) Abdomen: Normal Bowel Sounds, Soft, No Tenderness, No Hepatosplenomegaly, No Masses, Other Extremities: No Clubbing, No Cyanosis, No Edema, Normal Pulses, No Tenderness/ Swelling Skin: Other (R calf wound, inferior -- 1.7 x 0.6 x 0.2 cm, 100% regenerating tissue.) Neuro: Normal Gait, Normal Speech, Normal Tone, Sensation Intact Psych/Mental Status: Mental Status NL, Mood NL Results Lab Laboratory Tests 08/13/17 05:34 A/P-Cardiology Admission Diagnosis shortness of breath UTI Anemia Abdominal pain Assessment/Plan Shortness of breath, acute on chronic congestive heart failure left ventricular systolic dysfunction, ejection fraction 30-35 percent, history of BRUSH CLEARER SURVEYING-D implant in August 2012, Recommend using Zaroxolyn as needed for shortness of breath in addition to the Lasix 40 twice a day. okay for discharge and follow-up as an outpatient Anemia, better after transfusion, continue to monitor H/H. Mild abdominal pain, history of cholecystectomy, ultrasound showed mild to moderate ascites and hepatic congestion, left-sided pleural effusion, feeling better. No further episodes of abdominal pain Urinary tract infection, Escherichia coli, receiving antibiotics, managed by primary care physician Status post episode of chest pain, reporting improvement, no further episodes were reported. 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 Prabhakar. Echocardiogram showed ejection fraction 30-35 percent, severely dilated left atrium, moderate severe mitral stenosis, moderate to severe mitral regurgitation, prosthetic valve in the aortic position functioning normally, PA pressure 45 mmHg done in December 2016 Nonhealing foot ulcer, patient has venous insufficiency on the right side that required ablation, peripheral angiogram showed a gradient across the SFA of 50- 60 mmHg, severe stenosis at the proximal anterior tibial artery on the right side underwent balloon angioplasty using 3.0 x 80 [place] with multiple inflation with mild residual stenosis, total occlusion at the ankle level and at the arch level, total occlusion of the tibioperoneal trunk with collateral filling the posterior tibial through the right anterior tibial, heavily calcified right SFA with moderate to severe stenosis with a gradient of 50-60 mmHg across the mid SFA. Diffuse disease at the left SFA, vision at the trifurcation level with collateral at the left lower extremity, diffuse atherosclerotic disease at the abdominal aorta. LINDA was done in the office and showed improvement. 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 discussed with Dr. Page, he recommended medical therapy at this time considering her to be high risk for morbidity and mortality if she undergoes valve surgery. She is not a candidate for mitral clip secondary to her mitral stenosis she was referred back to us for continuous following and we will contact him if needed Coronary artery disease, small vessel disease, nonobstructive disease, the prosthetic valve was functioning normally. Pulmonary artery pressure was 50/26 , pulmonary capillary wedge pressure 35, right ventricular pressure 53/17. cardiac catheterization was done in September 2014. Stress test done in December 2016 showing no ischemia or infarction, EF 41 percent, continue to monitor Carotid stenosis, continue to monitor, followed by heart and vascular care. 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 followed and monitored by heart and vascular care. Hypertension-controlled,continue to monitor BP/HR. Hyperlipidemia, continue on current medication monitor lipids Clinical Quality Measures DVT/VTE Risk/Contraindication: Risk Factor Score Per Nursin PRANEETH SHUKLA MD Aug 13, 2017 09:49
--- NOTE | 2017-08-13 11:08 | D/C HH Face to Face Order ---
D/C Face to Face Orders Instructions for Patient Patient Instructions/FollowUp: n Physician to follow Patient: n Discharge Diet for Home: Low Sodium Diet Patient Problems: Valvular heart disease. Pulmonary artery hypertension Cardiomyopathy with ejection fraction 25-30 percent Pulmonary edema Goals for Patient: Return to previous state Patient Data-Allergies,Ht & Wt Patient Allergies: Coded Allergies: JACQUELINEANo Known Allergies (Verified Allergy, Unknown, 11/14/05) Height (Feet): 5 Height (Inches): 6.00 Weight (Pounds): 137 Weight (Ounces): 0.0 Home Health Need/Face to Face Date of Face to Face: Aug 13, 2017 Clinical Findings: Generalized weakness and fatigue, Muscle weakness, Shortness of breath Pulmonary edema I have seen Pt [id number]: Yes Discharged To: Home Diagnosis/Conditions: Cardiomyopathy with ejection fraction 25-30 percent Dilated cardiomyopathy, left ventricle and left atrium. Pulmonary artery hypertension with pulmonary artery pressure 75-80 Prosthetic aortic valve. Severe mitral valve regurgitation Pulmonary edema as a result of the issues above Problems/Diagnosis/Condition: Patient is Homebound due to: Muscle weakness, Shortness of breath/distress Homebound Status Due to the above stated illness, injury or surgical procedure (medical condition or diagnosis) and associated clinical findings, the patient is homebound because of his/her inability to leave home except with aid of a supportive device and/or person AND leaving the home requires a considerable and taxing effort or is medically contraindicated. y Pt req the following assistanc: Aid of another person Home Health Nursing Orders Home Health Services Order: Nursing Services Home Health Infusion Therapy Line Type: Saline Lock Site Location: Antecubital Certify Stmt I certify that this patient is under my care and that I, a nurse practitioner or a physician; a bilingual medical assistant working with me, had a face to face encounter that - meets the physician face to face encounter requirements with this patient as dated. URBAN Galaviz MD Aug 13, 2017 11:08
--- NOTE | 2017-08-13 14:57 | Occ Therapy Progress Note ---
Therapy Progress Note Pt. in bed this morning. Daughter in room. Pt. states that she is leaving today, but is waiting on Dr. Pt. declines bathing or dressing, as daughter assists her as needed. OT asks pt. and daughter if they have any questions or concerns. Daughter does have questions regarding oxygen home set up, oxygen tubing at home, and how home health vs. outpt physical therapy set up will work. OT educates pt. and daughter regarding how this will work and the difference between the two. Did leave note for social services analyst to speak with them about the equipment component of discharging home. All needs met in room. No further OT needs at this time. [id number] 1, visit Discharge no charge NIXON HOOPER OT Aug 13, 2017 14:57
--- NOTE | 2017-08-14 08:27 | Therapy Team Discharge Summary ---
Therapy Discharge Summary Discharge Recommendations Date of Discharge Aug 13, 2017 at 14:05 Therapy D/C Recommendations: Home w/ Family Support Occupational Therapy Pt. has been seen by occupational therapy to increase overall strength and independence with daily tasks. Pt. is able to transfer with Mod I. Did not have opportunity to assess ADLs as pt. had daughter assist her everyday. Pt. is discharging home with daughter assist. Pt. will need oxygen at all times at home, and would benefit from physical therapy to continue with overall strengthening. OT not warranted at this time. Decreased Activ Tolerance PT Long-Term Goals Long-Term Goals PT Long-Term Goals Time Frame: Aug 15, 2017 Transfers (B,C,W/C) (FIM): 6 (met 08/13/17) Sit to Lying (QC): 6 (met 08/13/17) Lying-Sitting on Side/Bed(QC): 6 (met 08/13/17) Sit to Stand (QC): 6 (met 08/13/17) Rollin (met 08/13/17) Gait (FIM): 6 (met 08/13/17) Distance: 800' Walk 50ft with 2 Turns (QC): 6 (met 08/13/17) Walk 150 ft (QC): 6 (met 08/13/17) Gait Assistive Device: FWW OT Event Decorator And Designer Goals Event Decorator And Designer Goals Time Frame: Aug 22, 2017 Eating (FIM): 6 (met) Eating (QC): 6 (met) Groomin (met) Oral Hygiene (QC): 6 (met) Bathing(FIM): 5 (met) Upper Body Dressing(FIM): 6 (not met- daughter assists as needed.) Lower Body Dressing(FIM): 6 (not met- daughter assists as needed.) Toileting(FIM): 6 (met) Toileting Hygiene (QC): 6 (met) Toilet/Commode Transfer(FIM): 6 (met) Toilet/Commode Transfer (QC): 6 (met) Additional Goals: 2-Verbalize Understanding, 3-ImproveStrength/Rick 1=Demonstrate adherence to instructed precautions during ADL tasks. 2=Patient will verbalize/demonstrate understanding of assistive devices/ modifications for ADL. 3=Patient will improve strength/tolerance for activity to enable patient to perform ADL's. NIXON HOOPER OT Aug 14, 2017 08:27
== END 2017-08-13 14:05 | disposition home health service (06) | DRG 689 ==
LOC: 4TH 11:21
PROVIDERS: ADMIT Family Medicine; ATTEND Family Medicine
DX: N30.01 Acute cystitis with hematuria (principal); I13.0 Hypertensive heart and chronic kidney disease with heart failure and stage 1 through stage 4 chronic kidney disease, or unspecified chronic kidney disease; I50.23 Acute on chronic systolic (congestive) heart failure; N18.9 Chronic kidney disease, unspecified; R10.11 Right upper quadrant pain; I25.5 Ischemic cardiomyopathy; B96.20 Unspecified Escherichia coli [E. coli] as the cause of diseases classified elsewhere; D50.9 Iron deficiency anemia, unspecified; D63.8 Anemia in other chronic diseases classified elsewhere; E78.5 Hyperlipidemia, unspecified; I25.10 Atherosclerotic heart disease of native coronary artery without angina pectoris; F03.90 Unspecified dementia, unspecified severity, without behavioral disturbance, psychotic disturbance, mood disturbance, and anxiety; I27.20 Pulmonary hypertension, unspecified; M19.91 Primary osteoarthritis, unspecified site; E03.9 Hypothyroidism, unspecified; I87.2 Venous insufficiency (chronic) (peripheral); I05.0 Rheumatic mitral stenosis; I70.235 Atherosclerosis of native arteries of right leg with ulceration of other part of foot; L97.519 Non-pressure chronic ulcer of other part of right foot with unspecified severity; I70.0 Atherosclerosis of aorta; I71.4 Abdominal aortic aneurysm, without rupture; I65.29 Occlusion and stenosis of unspecified carotid artery; Z95.2 Presence of prosthetic heart valve; Z95.810 Presence of automatic (implantable) cardiac defibrillator; Z79.01 Long term (current) use of anticoagulants; Z98.62 Peripheral vascular angioplasty status
CPT/HCPCS: 36415; 76700; 80048; 80053; 83735; 83880; 85027; 85610; 86850; 86900; 86901; 86920; 94640; 94760; 94761

== ENCOUNTER → 2017-08-16 | Outpatient (CLI) | payer MEDICARE ==
[~2017-08-16] MED LIST changes: +METO2.5T PO
== END ==
LOC: WOUNDCARE 14:04
PROVIDERS: ATTEND Nurse Practitioner
DX: I87.331 Chronic venous hypertension (idiopathic) with ulcer and inflammation of right lower extremity (principal); I70.233 Atherosclerosis of native arteries of right leg with ulceration of ankle; I70.202 Unspecified atherosclerosis of native arteries of extremities, left leg; I50.22 Chronic systolic (congestive) heart failure; L97.212 Non-pressure chronic ulcer of right calf with fat layer exposed; L97.312 Non-pressure chronic ulcer of right ankle with fat layer exposed
CPT/HCPCS: 15271

== ENCOUNTER → 2017-08-23 | Outpatient (CLI) | payer MEDICARE | LOC: WOUNDCARE 08:16 | PROVIDERS: ATTEND Internal Medicine | DX: L97.312 Non-pressure chronic ulcer of right ankle with fat layer exposed (principal); I87.331 Chronic venous hypertension (idiopathic) with ulcer and inflammation of right lower extremity; I70.233 Atherosclerosis of native arteries of right leg with ulceration of ankle; I70.202 Unspecified atherosclerosis of native arteries of extremities, left leg; I50.22 Chronic systolic (congestive) heart failure; L97.212 Non-pressure chronic ulcer of right calf with fat layer exposed | CPT/HCPCS: 97597 ==

== ENCOUNTER → 2017-08-30 | Outpatient (CLI) | payer MEDICARE | LOC: WOUNDCARE 08:22 | PROVIDERS: ATTEND Internal Medicine | DX: I87.331 Chronic venous hypertension (idiopathic) with ulcer and inflammation of right lower extremity (principal); I70.233 Atherosclerosis of native arteries of right leg with ulceration of ankle; I70.202 Unspecified atherosclerosis of native arteries of extremities, left leg; I50.22 Chronic systolic (congestive) heart failure; L97.212 Non-pressure chronic ulcer of right calf with fat layer exposed; L97.312 Non-pressure chronic ulcer of right ankle with fat layer exposed | CPT/HCPCS: 99212 ==

== ENCOUNTER → 2017-09-25 | Outpatient (CLI) | payer MEDICARE | LOC: WOUNDCARE 09:21 | PROVIDERS: ATTEND Nurse Practitioner | DX: S81.801A Unspecified open wound, right lower leg, initial encounter (principal); I87.331 Chronic venous hypertension (idiopathic) with ulcer and inflammation of right lower extremity; I70.233 Atherosclerosis of native arteries of right leg with ulceration of ankle; I70.202 Unspecified atherosclerosis of native arteries of extremities, left leg; I50.22 Chronic systolic (congestive) heart failure | CPT/HCPCS: 11042 ==

== ENCOUNTER → 2017-10-02 | Outpatient (CLI) | payer MEDICARE | LOC: WOUNDCARE 08:53 | PROVIDERS: ATTEND Nurse Practitioner | DX: I70.233 Atherosclerosis of native arteries of right leg with ulceration of ankle (principal); S81.801A Unspecified open wound, right lower leg, initial encounter; I87.331 Chronic venous hypertension (idiopathic) with ulcer and inflammation of right lower extremity; I70.202 Unspecified atherosclerosis of native arteries of extremities, left leg; I50.22 Chronic systolic (congestive) heart failure | CPT/HCPCS: 11042 ==

== ENCOUNTER → 2017-10-11 | Outpatient (CLI) | payer MEDICARE | LOC: WOUNDCARE 13:32 | PROVIDERS: ATTEND Nurse Practitioner | DX: I87.331 Chronic venous hypertension (idiopathic) with ulcer and inflammation of right lower extremity (principal); S81.801A Unspecified open wound, right lower leg, initial encounter; I70.233 Atherosclerosis of native arteries of right leg with ulceration of ankle; I70.202 Unspecified atherosclerosis of native arteries of extremities, left leg; I50.22 Chronic systolic (congestive) heart failure | CPT/HCPCS: 11042; 87070; 87075; 87205 ==

== ENCOUNTER → 2017-10-18 | Outpatient (CLI) | payer MEDICARE | LOC: WOUNDCARE 12:36 | PROVIDERS: ATTEND Nurse Practitioner | DX: S81.801A Unspecified open wound, right lower leg, initial encounter (principal); I87.331 Chronic venous hypertension (idiopathic) with ulcer and inflammation of right lower extremity; I70.233 Atherosclerosis of native arteries of right leg with ulceration of ankle; I70.202 Unspecified atherosclerosis of native arteries of extremities, left leg; I50.22 Chronic systolic (congestive) heart failure | CPT/HCPCS: 11042 ==

== ENCOUNTER → 2017-10-25 | Outpatient (CLI) | payer MEDICARE | LOC: WOUNDCARE 13:19 | PROVIDERS: ATTEND Nurse Practitioner | DX: S81.801A Unspecified open wound, right lower leg, initial encounter (principal); I87.331 Chronic venous hypertension (idiopathic) with ulcer and inflammation of right lower extremity; I70.233 Atherosclerosis of native arteries of right leg with ulceration of ankle; I70.202 Unspecified atherosclerosis of native arteries of extremities, left leg | CPT/HCPCS: 11042 ==

== ENCOUNTER 2017-10-29 16:40 | Inpatient (IN) | payer MEDICARE ==
[~2017-10-29] VITALS: Ht 167.6 cm; Wt 57.6 kg
--- OUTSIDE RECORDS SUMMARY | 2017-10-29 16:46 | XMS REPORT | Clinical Summary ---
Author Author [facility] Organization [facility] Address Unknown Phone Unavailable Care Team Providers Care Machine Silver Stripper Name Role Phone Jake Prabhakar MD PCP Kristi Charlton Unavailable Source Comments Some departments are not documenting in the electronic medical record. 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 Severe MR & TR PAP 55 (42 a year earlier, EF 35, MR and TR mod-severe). AVR "OK" Chronic systolic CHF (congestive heart failure), NYHA class 3 ([facility]) 2011 Last Assessment & Plan: Echo in [...] assessed in November and demonstrated normal function custodial current use of anticoagulant 03/19/2012 HLD (hyperlipidemia) 03/19/2012 PVD (peripheral vascular disease) ([facility]) 03/19/2012 Atrial fibrillation ([facility]) 03/19/2012 Overview: Permanent as of 2011 90+% paced-DDIR at 70 on cardizem 240, dig .125, coreg 6.25bid 08/07/12 Initiated on digoxin 0.125mcg daily to assist with BiV pacing pacing L ast Assessment & Plan: Continues to be in permanent atrial fibrillation. Overall well rate controlled. Biventricular ICD (implantable cardioverter-defibrillator) in place 2011 Overview: MDT DC PPM- L side 200408/07/12 [facility] [employer]ALER-D upgrade implant + DFTs with Dr. Ceja. L ast Assessment & Plan: Device was checked today and demonstrated normal function. See device check and cardiovascular studies for further details. Resolved Problems Problem Noted Date Resolved Date Dilated cardiomyopathy (HCC) 03/18/2012 03/21/2012 Family History Medical History Relation Name Comments Coronary Artery Disease Mother of DC Relation Name Status Comments Mother Social History Tobacco Use Types Packs/Day Years Used Date Never Smoker Smokeless Tobacco: Never Used Alcohol Use Drinks/Week oz/Week Comments No Sex Assigned at Date Recorded Not on file Last Filed Vital Signs Vital Sign Reading Time Taken Blood Pressure 128/60 08/31/2015 12:58 PM [employer] Pulse 87 09/29/2014 11:26 AM [employer] Temperature 36.6 C (97.9 F) 08/09/2012 11:25 AM [employer] Respiratory Rate - - Oxygen Saturation 93% 09/29/2014 11:26 AM [employer] Inhaled Oxygen - - Concentration Weight 58.1 kg (128 lb) 08/31/2015 12:58 PM [employer] Height 167.6 cm (5' 6") 08/31/2015 12:58 PM [employer] Body Mass Index 20.66 08/31/2015 12:58 PM [employer] Plan of Treatment Health Maintenance Due Date Last Done Comments PHYSICAL (COMPREHENSIVE) 1944 EXAM PERTUSSIS VACCINE 1948 TETANUS VACCINE 1954 SHINGLES VACCINE 1997 OSTEOPOROSIS SCREENING 2002 PREVNAR/PNEUMOVAX (#1) 2002 INFLUENZA VACCINE 04/03/2017 Results Not on filefrom Last 3 Months
--- OUTSIDE RECORDS SUMMARY | 2017-10-29 16:52 | XMS REPORT | Continuity of Care Document ---
Author Author [facility] Organization [facility] Address Unknown Phone Unavailable Allergies Active Description Code Type Severity Reaction Onset Reported/Identified Relationship to Patient Clinical Status Yes NKANo Known Allergies NKA Miscellaneous Allergy Unknown N/A 11/14/2005 Medications There is no data. Problems Date Dx Coded Attending Type Code Diagnosis Diagnosed By 04/05/2010 Ot 244.9 04/05/2010 Ot 414.01 04/05/2010 Ot 416.8 04/05/2010 Ot 425.4 04/05/2010 Ot 427.81 04/05/2010 Ot 441.4 04/05/2010 Ot 459.81 04/05/2010 Ot 596.51 04/05/2010 Ot 714.0 04/05/2010 Ot 786.59 04/05/2010 Ot V45.01 04/19/2011 Ot 401.9 HYPERTENSION NOS 04/19/2011 Ot 413.9 ANGINA PECTORIS NEC/NOS 04/19/2011 Ot 414.01 CORONARY ATHEROSCLEROSIS OF [place] CORON 04/19/2011 Ot V43.3 HEART VALVE REPLAC NEC 04/19/2011 Ot V45.01 CARDIAC PACEMAKER IN SITU 07/05/2011 Ot 244.9 HYPOTHYROIDISM NOS 07/05/2011 Ot 398.91 RHEUMATIC HEART FAILURE 07/05/2011 Ot 414.01 CORONARY ATHEROSCLEROSIS OF [place] CORON 07/05/2011 Ot 414.8 CHR ISCHEMIC HRT DIS NEC 07/05/2011 Ot 416.8 CHR PULMON HEART DIS NEC 07/05/2011 Ot 427.31 ATRIAL FIBRILLATION 07/05/2011 Ot 427.81 SINOATRIAL NODE DYSFUNCT 07/05/2011 Ot 428.0 CONGESTIVE HEART FAILURE NOS 07/05/2011 Ot 441.4 ABDOM AORTIC ANEURYSM 07/05/2011 Ot 459.81 VENOUS INSUFFICIENCY NOS 07/05/2011 Ot 486 PNEUMONIA, ORGANISM NOS 07/05/2011 Ot 574.00 CHOLELITH W AC CHOLECYST 07/05/2011 Ot 577.0 ACUTE PANCREATITIS 07/05/2011 Ot 596.51 HYPERTONICITY OF BLADDER 07/05/2011 Ot 707.13 ULCER OF ANKLE 07/05/2011 Ot V43.3 HEART VALVE REPLAC NEC 07/05/2011 Ot V45.81 AORTOCORONARY BYPASS 07/05/2011 Ot V58.69 OTH MED,LT, CURRENT USE 07/07/2011 Ot 244.9 HYPOTHYROIDISM NOS 07/07/2011 Ot 398.91 RHEUMATIC HEART FAILURE 07/07/2011 Ot 414.01 CORONARY ATHEROSCLEROSIS OF [place] CORON 07/07/2011 Ot 414.8 CHR ISCHEMIC HRT DIS NEC 07/07/2011 Ot 416.8 CHR PULMON HEART DIS NEC 07/07/2011 Ot 427.31 ATRIAL FIBRILLATION 07/07/2011 Ot 427.81 SINOATRIAL NODE DYSFUNCT 07/07/2011 Ot 428.0 CONGESTIVE HEART FAILURE NOS 07/07/2011 Ot 441.4 ABDOM AORTIC ANEURYSM 07/07/2011 Ot 459.81 VENOUS INSUFFICIENCY NOS 07/07/2011 Ot 486 PNEUMONIA, ORGANISM NOS 07/07/2011 Ot 596.51 HYPERTONICITY OF BLADDER 07/07/2011 Ot 707.13 ULCER OF ANKLE 07/07/2011 Ot V43.3 HEART VALVE REPLAC NEC 07/07/2011 Ot V45.81 AORTOCORONARY BYPASS 07/07/2011 Ot V58.69 OTH MED,LT, CURRENT USE 07/07/2011 Ot V58.75 AFTERCARE POST SURGERY TEETH,ORAL CAVITY 05/08/2012 Ot 272.4 HYPERLIPIDEMIA NEC/NOS 05/08/2012 Ot 285.29 ANEMIA OF OTHER CHRONIC DISEASE 05/08/2012 Ot 397.0 TRICUSPID VALVE DISEASE 05/08/2012 Ot 401.9 HYPERTENSION NOS 05/08/2012 Ot 414.01 CORONARY ATHEROSCLEROSIS OF [place] CORON 05/08/2012 Ot 416.8 CHR PULMON HEART DIS NEC 05/08/2012 Ot 424.0 MITRAL VALVE DISORDER 05/08/2012 Ot 427.31 ATRIAL FIBRILLATION 05/08/2012 Ot 428.0 CONGESTIVE HEART FAILURE NOS 05/08/2012 Ot 428.23 ACUTE CHRONIC SYSTOLIC HRT FAILURE 05/08/2012 Ot V43.3 HEART VALVE REPLAC NEC 05/08/2012 Ot V45.01 CARDIAC PACEMAKER IN SITU 07/28/2012 Ot 244.9 HYPOTHYROIDISM NOS 07/28/2012 Ot 272.4 HYPERLIPIDEMIA NEC/NOS 07/28/2012 Ot 285.9 ANEMIA NOS 07/28/2012 Ot 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 07/28/2012 Ot 397.0 TRICUSPID VALVE DISEASE 07/28/2012 Ot 401.9 HYPERTENSION NOS 07/28/2012 Ot 414.00 CORON ATHEROSCLER NOS TYPE VESSEL, NATIV 07/28/2012 Ot 414.8 CHR ISCHEMIC HRT DIS NEC 07/28/2012 Ot 416.8 CHR PULMON HEART DIS NEC 07/28/2012 Ot 427.31 ATRIAL FIBRILLATION 07/28/2012 Ot 428.0 CONGESTIVE HEART FAILURE NOS 07/28/2012 Ot 428.21 ACUTE SYSTOLIC HEART FAILURE 07/28/2012 Ot 433.10 CAROTID ARTERY OCCLUSION W O CEREBRAL IN 07/28/2012 Ot 441.4 ABDOM AORTIC ANEURYSM 07/28/2012 Ot 459.81 VENOUS INSUFFICIENCY NOS 07/28/2012 Ot 486 PNEUMONIA, ORGANISM NOS 07/28/2012 Ot V43.3 HEART VALVE REPLAC NEC 07/28/2012 Ot V45.01 CARDIAC PACEMAKER IN SITU 07/28/2012 Ot V45.81 AORTOCORONARY BYPASS 03/27/2013 LIBBY HERNÁNDEZ, ROJAS Quinonez Ot 244.9 HYPOTHYROIDISM NOS 03/27/2013 LIBBY HERNÁNDEZ, ROJAS Quinonez Ot 272.4 HYPERLIPIDEMIA NEC/NOS 03/27/2013 LIBBY HERNÁNDEZ, ROJAS Quinonez Ot 285.9 ANEMIA NOS 03/27/2013 LIBBY HERNÁNDEZ, ROJAS Quinonez Ot 397.0 TRICUSPID VALVE DISEASE 03/27/2013 LIBBY HERNÁNDEZ, ROJAS Quinonez Ot 401.9 HYPERTENSION NOS 03/27/2013 LIBBY HERNÁNDEZ, ROJAS Quinonez Ot 414.01 CORONARY ATHEROSCLEROSIS OF [place] CORON 03/27/2013 LIBBY HERNÁNDEZ, ROJAS Quinonez Ot 416.8 CHR PULMON HEART DIS NEC 03/27/2013 LIBBY HERNÁNDEZ, ROJAS Quinonez Ot 424.0 MITRAL VALVE DISORDER 03/27/2013 LIBBY HERNÁNDEZ, ROJAS Quinonez Ot 425.4 PRIM CARDIOMYOPATHY NEC 03/27/2013 LIBBY HERNÁNDEZ, ROJAS Quinonez Ot 427.31 ATRIAL FIBRILLATION 03/27/2013 LIBBY HERNÁNDEZ, ROJAS Quinonez Ot 433.10 CAROTID ARTERY OCCLUSION W O CEREBRAL IN 03/27/2013 ROJAS SOUZA MD Ot 441.4 ABDOM AORTIC ANEURYSM 03/27/2013 LIBBY HERNÁNDEZ, ROJAS Quinonez Ot 553.00 UNILAT FEMORAL HERNIA 03/27/2013 LIBBY HERNÁNDEZ, ROJAS Quinonez Ot V43.3 HEART VALVE REPLAC NEC 03/27/2013 LIBBY HERNÁNDEZ, ROJAS Quinonez Ot V45.01 CARDIAC PACEMAKER IN SITU 03/27/2013 LIBBY HERNÁNDEZ, ROJAS Quinonez Ot V58.61 ANTICOAGULANTS,LT,CURRENT USE 01/19/2014 NORBERTO SARAVIA Ot 462 ACUTE PHARYNGITIS 01/19/2014 NORBERTO SARAVIA Ot 490 BRONCHITIS NOS 02/10/2014 RUSTAM CALI DO Ot 244.9 HYPOTHYROIDISM NOS 02/10/2014 RUSTAM CALI DO Ot 272.4 HYPERLIPIDEMIA NEC/NOS 02/10/2014 RUSTAM CALI DO Ot 285.9 ANEMIA NOS 02/10/2014 RUSTAM CALI DO Ot 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 02/10/2014 RUSTAM CALI DO Ot 397.0 TRICUSPID VALVE DISEASE 02/10/2014 RUSTAM CALI DO Ot 401.9 HYPERTENSION NOS 02/10/2014 RUSTAM CALI DO Ot 414.01 CORONARY ATHEROSCLEROSIS OF [place] CORON 02/10/2014 RSUTAM CALI DO Ot 416.8 CHR PULMON HEART DIS NEC 02/10/2014 RUSTAM CALI DO Ot 427.31 ATRIAL FIBRILLATION 02/10/2014 RUSTAM CALI DO, Ot 427.81 SINOATRIAL NODE DYSFUNCT 02/10/2014 RUSTAM CALI DO Ot 433.10 CAROTID ARTERY OCCLUSION W O CEREBRAL IN 02/10/2014 RUSTAM CALI DO Ot 441.4 ABDOM AORTIC ANEURYSM 02/10/2014 RUSTAM CALI DO, Ot 459.81 VENOUS INSUFFICIENCY NOS 02/10/2014 RUSTAM CALI DO Ot 493.00 EXTRINSIC ASTHMA, NOS 02/10/2014 RUSTAM CALI DO Ot 799.02 HYPOXEMIA 02/10/2014 RUSTAM CALI DO Ot V43.3 HEART VALVE REPLAC NEC 02/10/2014 RUSTAM CALI DO Ot V45.01 CARDIAC PACEMAKER IN SITU 05/20/2014 RUSTAM CALI DO Ot 244.9 HYPOTHYROIDISM NOS 05/20/2014 RUSTAM CALI DO Ot 272.0 PURE HYPERCHOLESTEROLEM 05/20/2014 RUSTAM CALI DO, Ot 272.4 HYPERLIPIDEMIA NEC/NOS 05/20/2014 RUSTAM CALI DO Ot 285.9 ANEMIA NOS 05/20/2014 RUSTAM CALI DO Ot 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 05/20/2014 RUSTAM CALI DO, Ot 397.0 TRICUSPID VALVE DISEASE 05/20/2014 RUSTAM CALI DO Ot 398.91 RHEUMATIC HEART FAILURE 05/20/2014 RUSTAM CALI DO Ot 401.9 HYPERTENSION NOS 05/20/2014 RUSTAM CALI DO Ot 414.01 CORONARY ATHEROSCLEROSIS OF [place] CORON 05/20/2014 RUSTAM CALI DO Ot 416.8 CHR PULMON HEART DIS NEC 05/20/2014 RUSTAM CALI DO Ot 425.4 PRIM CARDIOMYOPATHY NEC 05/20/2014 RUSTAM ACLI DO Ot 427.31 ATRIAL FIBRILLATION 05/20/2014 RUSTAM CALI DO Ot 428.23 ACUTE CHRONIC SYSTOLIC HRT FAILURE 05/20/2014 RUSTAM CALI DO Ot 447.70 AORTIC ECTASIA, UNSPECIFIED SITE 05/20/2014 RUSTAM CALI DO, Ot 459.81 VENOUS INSUFFICIENCY NOS 05/20/2014 RUSTAM CALI DO Ot 486 PNEUMONIA, ORGANISM NOS 05/20/2014 RUSTAM CALI DO, Ot 491.21 OBSTR CHRONIC BRONCHITIS, W (ACUTE) EXAC 05/20/2014 RUSTAM CALI DO Ot 790.29 OTHER ABNORMAL GLUCOSE 05/20/2014 RUSTAM CALI DO Ot 799.02 HYPOXEMIA 05/20/2014 RUSTAM CALI DO, Ot E932.0 ADV EFF CORTICOSTEROIDS 05/20/2014 RUSTAM CALI DO, Ot V43.3 HEART VALVE REPLAC NEC 05/20/2014 RUSTAM CALI DO, Ot V45.02 AUTO IMPLANTABLE CARDIAC DEFIBRILLATOR I 05/20/2014 RUSTAM CALI DO, Ot V45.81 AORTOCORONARY BYPASS 05/20/2014 RUSTAM CALI DO, Ot V58.61 ANTICOAGULANTS,LT,CURRENT USE 07/21/2014 Ot V76.12 07/21/2014 Ot 397.0 07/21/2014 Ot 416.8 07/21/2014 Ot 424.0 07/21/2014 Ot V43.3 07/21/2014 Ot 733.90 07/21/2014 Ot V82.81 07/21/2014 Ot 562.10 07/21/2014 Ot 574.20 07/21/2014 Ot V76.12 07/21/2014 Ot 428.0 07/21/2014 Ot 401.9 07/21/2014 Ot 413.9 07/21/2014 Ot 414.00 07/21/2014 Ot V58.61 07/21/2014 Ot V58.69 07/21/2014 Ot V72.63 07/21/2014 Ot V72.81 07/21/2014 Ot V72.83 07/21/2014 Ot 593.2 07/21/2014 Ot 397.0 07/21/2014 Ot 401.9 07/21/2014 Ot 416.8 07/21/2014 Ot 424.0 07/21/2014 Ot 428.0 07/21/2014 Ot V43.3 07/21/2014 Ot 272.4 07/21/2014 Ot 401.9 07/21/2014 Ot 427.31 07/21/2014 Ot 427.81 07/21/2014 Ot 428.0 07/21/2014 Ot 454.8 07/21/2014 Ot V43.3 07/21/2014 Ot V58.61 07/21/2014 Ot V58.69 07/21/2014 RUSTAM CALI DO Ot 429.3 07/21/2014 RUSTAM CALI DO Ot 486 07/21/2014 Ot 593.2 07/21/2014 THANH VELÁSQUEZ Ot 272.4 07/21/2014 JERED GAUTHIER, THANH Roche Ot 401.9 07/21/2014 JERED GAUTHIER, THANH Roche Ot 414.00 07/21/2014 JERED GAUTHIER, THANH Roche Ot 416.8 07/21/2014 THANH VELÁSQUEZ Ot 424.0 07/21/2014 JERED GAUTHIER, THANH K Ot 427.81 07/21/2014 JERED GAUTHIER, THANH Roche Ot 428.0 07/21/2014 THANH VELÁSQUEZ Ot V43.3 07/21/2014 ANGELA HERNÁNDEZ, KARI Chatterjee Ot 593.2 07/21/2014 KARI MILLER MD Ot 793.5 07/21/2014 RUSTAM CALI DO Ot 429.3 07/21/2014 RUSTAM CALI DO Ot 515 07/21/2014 RUSTAM CALI DO Ot 783.21 07/21/2014 KARELY COSTELLO RUSTAM J Ot V45.01 07/21/2014 CALI DORUSTAM Ot 429.3 07/21/2014 CALI DORUSTAM Ot 511.9 07/21/2014 CALI DORUSTAM Ot 562.10 07/21/2014 CALI DORUSTAM Ot 789.02 07/21/2014 CALI DORUSTAM Ot 793.19 07/21/2014 CALI DORUSTAM Ot 793.6 07/21/2014 CALI DORUSTAM Ot 429.3 07/21/2014 CALI DORUSTAM Ot 496 07/21/2014 CALI DORUSTAM Ot 722.51 07/21/2014 CALI RUSTAM COSTELLO Ot 786.59 07/21/2014 CALI DORUSTAM Ot V45.01 07/21/2014 CALI RUSTAM COSTELLO Ot 724.2 07/21/2014 VAZQUEZ HERNÁNDEZ, PRANEETH Almaguer Ot 733.90 07/21/2014 ANT LOPEZ DO Ot 786.05 07/21/2014 ANT LOPEZ DO Ot 428.0 07/21/2014 ANT LOPEZ DO Ot 511.9 07/21/2014 ANT LOPEZ DO Ot 518.89 07/21/2014 ANT LOPEZ DO Ot 799.02 07/22/2014 CALIRUSTAM FAULKNER DO Ot 244.9 07/22/2014 CALIRUSTAM FAULKNER DO Ot 272.4 07/22/2014 CALIRUSTAM FAULKNER DO Ot 285.9 07/22/2014 ACLI RUSTAM COSTELLO Ot 394.0 07/22/2014 CALI RUSTAM COSTELLO Ot 398.91 07/22/2014 CALI DORUSTAM Ot 401.9 07/22/2014 CALI DORUSTAM Ot 414.01 07/22/2014 CALI RUSTAM COSTELLO Ot 416.8 07/22/2014 CALI DORUSTAM Ot 425.4 07/22/2014 CALI DORUSTAM Ot 427.31 07/22/2014 CALI RUSTAM COSTELLO Ot 428.0 07/22/2014 CALI RUSTAM COSTELLO Ot 428.23 07/22/2014 RUSTAM CALI DO Ot 441.4 07/22/2014 RUSTAM CALI DO Ot 447.70 07/22/2014 RUSTAM CALI DO Ot 459.81 07/22/2014 RUSTAM CALI DO Ot 491.21 07/22/2014 RUSTAM CALI DO Ot 715.89 07/22/2014 RUSTAM CALI DO Ot 780.60 07/22/2014 RUSTAM CALI DO Ot 799.02 07/22/2014 RUSTAM CALI DO Ot V12.79 07/22/2014 RUSTAM CALI DO Ot V17.3 07/22/2014 RUSTAM CALI DO Ot V43.3 07/22/2014 RUSTAM CALI DO Ot V45.01 07/22/2014 RUSTAM CALI DO Ot V46.2 07/22/2014 RUSTAM CALI DO Ot V58.61 07/22/2014 RUSTAM CALI DO Ot 244.9 HYPOTHYROIDISM NOS 07/22/2014 RUSTAM CALI DO Ot 272.4 HYPERLIPIDEMIA NEC/NOS 07/22/2014 RUSTAM CALI DO Ot 276.8 HYPOPOTASSEMIA 07/22/2014 RUSTAM CALI DO Ot 285.9 ANEMIA NOS 07/22/2014 RUSTAM CALI DO Ot 394.0 MITRAL STENOSIS 07/22/2014 RUSTAM CALI DO Ot 398.91 RHEUMATIC HEART FAILURE 07/22/2014 RUSTAM CALI DO Ot 401.9 HYPERTENSION NOS 07/22/2014 RUSTAM CALI DO Ot 414.01 CORONARY ATHEROSCLEROSIS OF [place] CORON 07/22/2014 RUSTAM CALI DO Ot 416.8 CHR PULMON HEART DIS NEC 07/22/2014 RUSTAM CALI DO Ot 425.4 PRIM CARDIOMYOPATHY NEC 07/22/2014 RUSTAM CALI DO Ot 427.31 ATRIAL FIBRILLATION 07/22/2014 RUSTAM CALI DO Ot 428.0 CONGESTIVE HEART FAILURE NOS 07/22/2014 RUSTAM CALI DO Ot 428.23 ACUTE CHRONIC SYSTOLIC HRT FAILURE 07/22/2014 RUSTAM CALI DO Ot 441.4 ABDOM AORTIC ANEURYSM 07/22/2014 RUSTAM CALI DO Ot 447.70 AORTIC ECTASIA, UNSPECIFIED SITE 07/22/2014 RUSTAM CALI DO Ot 459.81 VENOUS INSUFFICIENCY NOS 07/22/2014 RUSTAM CALI DO Ot 491.21 OBSTR CHRONIC BRONCHITIS, W (ACUTE) EXAC 07/22/2014 RUSTAM CALI DO Ot 511.9 PLEURAL EFFUSION NOS 07/22/2014 RUSTAM CALI DO Ot 518.81 ACUTE RESPIRATORY FAILURE 07/22/2014 RUSTAM CALI DO Ot 715.89 OSTEOARTHROSIS-MULT SITE 07/22/2014 RUSTAM CALI DO Ot 780.60 FEVER, UNSPECIFIED 07/22/2014 RUSTAM CALI DO, Ot 799.02 07/22/2014 RUSTAM CALI DO, Ot V12.79 PERSONAL HISTORY OTH SPEC DIGESTIVE SYST 07/22/2014 RUSTAM CALI DO, Ot V17.3 FAM HX-ISCHEM HEART DIS 07/22/2014 RUSTAM CALI DO, Ot V43.3 HEART VALVE REPLAC NEC 07/22/2014 RUSTAM CALI DO, Ot V45.01 CARDIAC PACEMAKER IN SITU 07/22/2014 RUSTAM CALI DO, Ot V46.2 SUPPLEMENTAL OXYGEN 07/22/2014 RUSTAM CALI DO Ot V58.61 ANTICOAGULANTS,LT,CURRENT USE 08/07/2014 ANT LOPEZ DO Ot 428.0 08/07/2014 ANT LOPEZ DO Ot 511.9 08/07/2014 ANT LOPEZ DO Ot 518.89 08/07/2014 ANT LOPEZ DO Ot 799.02 09/07/2014 RUSTAM CALI DO Ot 244.9 HYPOTHYROIDISM NOS 09/07/2014 RUSTAM CALI DO Ot 285.9 ANEMIA NOS 09/07/2014 RUSTAM CALI DO Ot 394.0 MITRAL STENOSIS 09/07/2014 RUSTAM CALI DO Ot 397.0 TRICUSPID VALVE DISEASE 09/07/2014 RUSTAM CALI DO Ot 414.01 CORONARY ATHEROSCLEROSIS OF [place] CORON 09/07/2014 RUSTAM CALI DO Ot 416.8 CHR PULMON HEART DIS NEC 09/07/2014 RUSTAM CALI DO Ot 425.4 PRIM CARDIOMYOPATHY NEC 09/07/2014 RUSTAM CALI DO Ot 427.31 ATRIAL FIBRILLATION 09/07/2014 RUSTAM CALI DO Ot 428.0 CONGESTIVE HEART FAILURE NOS 09/07/2014 RUSTAM CALI DO Ot 459.81 VENOUS INSUFFICIENCY NOS 09/07/2014 RUSTAM CALI DO Ot 496 CHR AIRWAY OBSTRUCT NEC 09/07/2014 RUSTAM CALI DO Ot 530.81 ESOPHAGEAL REFLUX 09/07/2014 RUSTAM CALI DO Ot 585.9 CHRONIC KIDNEY DISEASE, UNSPECIFIED 09/07/2014 RUSTAM CALI DO Ot 715.90 OSTEOARTHROS NOS-UNSPEC 09/07/2014 RUSTAM CALI DO Ot 786.50 CHEST PAIN NOS 09/07/2014 RUSTAM CALI DO Ot V43.3 HEART VALVE REPLAC NEC 09/07/2014 RUSTAM CALI DO Ot V45.01 CARDIAC PACEMAKER IN SITU 09/18/2014 PRANEETH SHUKLA MD Ot 272.4 HYPERLIPIDEMIA NEC/NOS 09/18/2014 PRANEETH SHUKLA MD Ot 401.9 HYPERTENSION NOS 09/18/2014 PRANEETH SHUKLA MD Ot 414.01 CORONARY ATHEROSCLEROSIS OF [place] CORON 09/18/2014 PRANEETH SHUKLA MD Ot 416.8 CHR PULMON HEART DIS NEC 09/18/2014 PRANEETH SHUKLA MD Ot 424.0 MITRAL VALVE DISORDER 09/18/2014 PRANEETH SHUKLA MD Ot 428.0 CONGESTIVE HEART FAILURE NOS 09/18/2014 PRANEETH SHUKLA MD Ot 441.4 ABDOM AORTIC ANEURYSM 09/18/2014 PRANEETH SHUKLA MD Ot V43.3 HEART VALVE REPLAC NEC 09/18/2014 PRANEETH SHUKLA MD Ot V45.02 AUTO IMPLANTABLE CARDIAC DEFIBRILLATOR I 09/18/2014 PRANEETH SHUKLA MD Ot V58.69 OT MED,LT,CURRENT USE 10/14/2014 PRANEETH SHUKLA MD Ot 244.9 HYPOTHYROIDISM NOS 10/14/2014 PRANEETH SHUKLA MD Ot 272.4 HYPERLIPIDEMIA NEC/NOS 10/14/2014 PRANEETH SHUKLA MD Ot 394.2 MITRAL STENOSIS W INSUFF 10/14/2014 PRANEETH SHUKLA MD Ot 401.9 HYPERTENSION NOS 10/14/2014 PRANEETH SHUKLA MD Ot 414.01 CORONARY ATHEROSCLEROSIS OF [place] CORON 10/14/2014 PRANEETH SHUKLA MD Ot 416.8 CHR PULMON HEART DIS NEC 10/14/2014 PRANEETH SHUKLA MD Ot 428.0 CONGESTIVE HEART FAILURE NOS 10/14/2014 PRANEETH SHUKLA MD Ot 428.23 ACUTE CHRONIC SYSTOLIC HRT FAILURE 10/14/2014 PRANEETH SHUKLA MD Ot 441.4 ABDOM AORTIC ANEURYSM 10/14/2014 PRANEETH SHUKLA MD Ot 786.50 CHEST PAIN NOS 10/14/2014 PRANEETH SHUKLA MD Ot V43.3 HEART VALVE REPLAC NEC 12/03/2014 Ot V76.12 12/03/2014 Ot 397.0 12/03/2014 Ot 416.8 12/03/2014 Ot 424.0 12/03/2014 Ot V43.3 12/03/2014 Ot 733.90 12/03/2014 Ot V82.81 12/03/2014 Ot 562.10 12/03/2014 Ot 574.20 12/03/2014 Ot V76.12 12/03/2014 Ot 428.0 12/03/2014 Ot 401.9 12/03/2014 Ot 413.9 12/03/2014 Ot 414.00 12/03/2014 Ot V58.61 12/03/2014 Ot V58.69 12/03/2014 Ot V72.63 12/03/2014 Ot V72.81 12/03/2014 Ot V72.83 12/03/2014 Ot 593.2 12/03/2014 Ot 397.0 12/03/2014 Ot 401.9 12/03/2014 Ot 416.8 12/03/2014 Ot 424.0 12/03/2014 Ot 428.0 12/03/2014 Ot V43.3 12/03/2014 Ot 272.4 12/03/2014 Ot 401.9 12/03/2014 Ot 427.31 12/03/2014 Ot 427.81 12/03/2014 Ot 428.0 12/03/2014 Ot 454.8 12/03/2014 Ot V43.3 12/03/2014 Ot V58.61 12/03/2014 Ot V58.69 12/03/2014 RUSTAM CALI DO Ot 429.3 12/03/2014 RUSTAM CALI DO Ot 486 12/03/2014 Ot 593.2 12/03/2014 JERED PA, THANH K Ot 272.4 12/03/2014 JERED PA, THANH K Ot 401.9 12/03/2014 JERED PA, THANH K Ot 414.00 12/03/2014 CARLOS ALBERTO-ISHAAN PA, THANH K Ot 416.8 12/03/2014 CARCAMO-ISHAAN PA, THANH K Ot 424.0 12/03/2014 CARCAMOISHAAN PA, THANH K Ot 427.81 12/03/2014 CARCAMOISHAAN PA, THANH K Ot 428.0 12/03/2014 JERED PA, THANH K Ot V43.3 12/03/2014 ANGELA HERNÁNDEZ, KARI Chatterjee Ot 593.2 12/03/2014 ANGELA HERNÁNDEZ, KARI Chatterjee Ot 793.5 12/03/2014 KARELY DORUSTAM Ot 429.3 12/03/2014 CALI DO, RUSTAM Almaguer Ot 515 12/03/2014 CALI DORUSTAM Ot 783.21 12/03/2014 CALI DORUSTAM Ot V45.01 12/03/2014 CALI DO, RUSTAM Almaguer Ot 429.3 12/03/2014 CALI DORUSTAM Ot 511.9 12/03/2014 CALI DORUSTAM Ot 562.10 12/03/2014 CALI DORUSTAM Ot 789.02 12/03/2014 CALI DORUSTAM Ot 793.19 12/03/2014 CALI DORUSTAM Ot 793.6 12/03/2014 CALI DORUSTAM Ot 429.3 12/03/2014 CALI DORUSTAM Ot 496 12/03/2014 CALI DORUSTAM Ot 722.51 12/03/2014 CALI DORUSTAM Ot 786.59 12/03/2014 CALI DORUSTAM Ot V45.01 12/03/2014 CALI DORUSTAM Ot 724.2 12/03/2014 VAZQUEZ HERNÁNDEZ, PRANEETH Almaguer Ot 733.90 12/03/2014 ANT LOPEZ DO Ot 786.05 12/03/2014 ANT LOPEZ DO Ot 428.0 12/03/2014 JESSICAANT SOSA DO Ot 511.9 12/03/2014 JESSICA DO ANT Quinonez Ot 518.89 12/03/2014 JESSICA ANT Quinonez Ot 799.02 01/07/2015 CALI DORUSTAM Ot 244.9 01/07/2015 CALIRUSTAM FAULKNER DO Ot 272.4 01/07/2015 CALIRUSTAM FAULKNER DO Ot 394.0 01/07/2015 CALI DORUSTAM Ot 401.9 01/07/2015 CALI DORUSTAM Ot 414.01 01/07/2015 CALI DORUSTAM Ot 425.4 01/07/2015 CALI DORUSTAM Ot 428.0 01/07/2015 CALI DORUSTAM Ot 428.23 01/07/2015 CALI DORUSTAM Ot 433.10 01/07/2015 CALI DORUSTAM Ot 441.4 01/07/2015 CALI DORUSTAM Ot 459.81 01/07/2015 CALI DORUSTAM Ot 486 01/07/2015 CALI DORUSTAM Ot 496 01/07/2015 CALI DORUSTAM Ot 518.81 01/07/2015 CALIRUSTAM FAULKNER DO Ot 707.12 01/07/2015 CALIRUSTAM FAULKNER DO Ot 715.90 01/07/2015 CALIRUSTAM SQUIRES DO Ot V43.3 01/07/2015 CALIRUSTAM FAULKNER DO Ot V45.02 01/07/2015 CALI RUSTAM COSTELLO Ot V58.61 01/07/2015 RUSTAM CALI DO Ot 244.9 HYPOTHYROIDISM NOS 01/07/2015 RUSTAM CALI DO Ot 272.4 HYPERLIPIDEMIA NEC/NOS 01/07/2015 RUSTAM CALI DO Ot 285.9 ANEMIA NOS 01/07/2015 RUSTAM CALI DO Ot 394.0 MITRAL STENOSIS 01/07/2015 RUSTAM CALI DO Ot 398.91 RHEUMATIC HEART FAILURE 01/07/2015 RUSTAM CALI DO Ot 401.9 01/07/2015 RUSTAM CALI DO Ot 403.90 HYPTNSV CHR 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, UNSPEC, W CHR KD ST 01/07/2015 RUSTAM CALI DO, Ot 414.01 CORONARY ATHEROSCLEROSIS OF [place] CORON 01/07/2015 RUSTAM CALI DO Ot 416.8 CHR PULMON HEART DIS NEC 01/07/2015 RUSTAM CALI DO Ot 425.4 01/07/2015 RUSTAM CALI DO, Ot 425.9 SECOND CARDIOMYOPATH NOS 01/07/2015 RUSTAM CALI DO Ot 427.31 ATRIAL FIBRILLATION 01/07/2015 RUSTAM CALI DO Ot 428.0 CONGESTIVE HEART FAILURE NOS 01/07/2015 RUSTAM CALI DO Ot 428.23 ACUTE CHRONIC SYSTOLIC HRT FAILURE 01/07/2015 RUSTAM CALI DO, Ot 433.10 CAROTID ARTERY OCCLUSION W O CEREBRAL IN 01/07/2015 RUSTAM CALI DO, Ot 441.4 ABDOM AORTIC ANEURYSM 01/07/2015 RUSTAM CALI DO, Ot 458.9 HYPOTENSION NOS 01/07/2015 RUSTAM CALI DO, Ot 459.81 VENOUS INSUFFICIENCY NOS 01/07/2015 RUSTAM CALI DO Ot 486 PNEUMONIA, ORGANISM NOS 01/07/2015 RUSTAM CALI DO Ot 496 [facility] AIRWAY OBSTRUCT NEC 01/07/2015 RUSTAM CALI DO, Ot 518.81 01/07/2015 RUSTAM CALI DO, Ot 530.81 ESOPHAGEAL REFLUX 01/07/2015 RUSTAM CALI DO, Ot 585.3 CHRONIC KIDNEY DISEASE, STAGE III (MODER 01/07/2015 RUSTAM CALI DO, Ot 707.12 ULCER OF CALF 01/07/2015 RUSTAM CALI DO, Ot 715.90 OSTEOARTHROS NOS-UNSPEC 01/07/2015 RUSTAM CALI DO, Ot V43.3 HEART VALVE REPLAC NEC 01/07/2015 RUSTAM CALI DO, Ot V45.02 AUTO IMPLANTABLE CARDIAC DEFIBRILLATOR I 01/07/2015 RUSTAM CALI DO, Ot V58.61 ANTICOAGULANTS,LT,CURRENT USE 01/07/2015 Ot V76.12 01/07/2015 Ot 397.0 01/07/2015 Ot 416.8 01/07/2015 Ot 424.0 01/07/2015 Ot V43.3 01/07/2015 Ot 733.90 01/07/2015 Ot V82.81 01/07/2015 Ot 562.10 01/07/2015 Ot 574.20 01/07/2015 Ot V76.12 01/07/2015 Ot 428.0 01/07/2015 Ot 401.9 01/07/2015 Ot 413.9 01/07/2015 Ot 414.00 01/07/2015 Ot V58.61 01/07/2015 Ot V58.69 01/07/2015 Ot V72.63 01/07/2015 Ot V72.81 01/07/2015 Ot V72.83 01/07/2015 Ot 593.2 01/07/2015 Ot 397.0 01/07/2015 Ot 401.9 01/07/2015 Ot 416.8 01/07/2015 Ot 424.0 01/07/2015 Ot 428.0 01/07/2015 Ot V43.3 01/07/2015 Ot 272.4 01/07/2015 Ot 401.9 01/07/2015 Ot 427.31 01/07/2015 Ot 427.81 01/07/2015 Ot 428.0 01/07/2015 Ot 454.8 01/07/2015 Ot V43.3 01/07/2015 Ot V58.61 01/07/2015 Ot V58.69 01/07/2015 RUSTAM CALI DO Ot 429.3 01/07/2015 RUSTAM CALI DO Ot 486 01/07/2015 Ot 593.2 01/07/2015 THANH VELÁSQUEZ Ot 272.4 01/07/2015 JERED GAUTHIER, THANH Roche Ot 401.9 01/07/2015 JERED GAUTHIER, THANH Roche Ot 414.00 01/07/2015 JERED GAUTHIER, THANH Roche Ot 416.8 01/07/2015 JERED GAUTHIER, THANH Roche Ot 424.0 01/07/2015 JERED GAUTHIER, THANH Roche Ot 427.81 01/07/2015 JERED GAUTHIER, THANH Roche Ot 428.0 01/07/2015 JERED GAUTHIER, THANH Roche Ot V43.3 01/07/2015 ANGELA HERNÁNDEZ, KARI Chatterjee Ot 593.2 01/07/2015 KARI MILLER MD Ot 793.5 01/07/2015 RUSTAM CALI DO Ot 429.3 01/07/2015 CALI DO, RUSTAM Rosina Ot 515 01/07/2015 CALI DO, RUSTAM Almaguer Ot 783.21 01/07/2015 CALI DO, RUSTAM Almaguer Ot V45.01 01/07/2015 CALI DO, RUSTAM Almaguer Ot 429.3 01/07/2015 CALI DO, RUSTAM Almaguer Ot 511.9 01/07/2015 CALI DO, RUSTAM Rosina Ot 562.10 01/07/2015 CALI DO RUSTAM Almaguer Ot 789.02 01/07/2015 CALI DO, RUSTAM Almaguer Ot 793.19 01/07/2015 CALI DO, RUSTAM Almaguer Ot 793.6 01/07/2015 CALI DO RUSTAM Rosina Ot 429.3 01/07/2015 CALI DORUSTAM Ot 496 01/07/2015 CALI DO RUSTAM Rosina Ot 722.51 01/07/2015 CALI DO RUSTAM Rosina Ot 786.59 01/07/2015 CALI DO RUSTAM Rosina Ot V45.01 01/07/2015 CALI DORUSTAM Ot 724.2 01/07/2015 VAZQUEZ HERNÁNDEZ, PRANEETH Almaguer Ot 733.90 01/07/2015 JESSICAANT SOSA DO Ot 786.05 01/07/2015 ANT LOPEZ DO Ot 428.0 01/07/2015 JESSICAANT SOSA DO Ot 511.9 01/07/2015 JESSICAIAN COSTELLO ANT M Ot 518.89 01/07/2015 JESSICAIAN COSTELLO ANT M Ot 799.02 01/07/2015 VAZQUEZ HERNÁNDEZ, PRANEETH Almaguer Ot 272.4 01/07/2015 VAZQUEZ HERNÁNDEZ, PRANEETH Almaguer Ot 401.9 01/07/2015 VAZQUEZ HERNÁNDEZ, PRANEETH Almaguer Ot 414.00 01/07/2015 VAZQUEZ HERNÁNDEZ, PRANEETH Almaguer Ot 427.31 01/07/2015 CALI DORUSTAM Ot 244.9 01/07/2015 CALI DORUSTAM Ot 272.4 01/07/2015 CALI DORUSTAM Ot 394.0 01/07/2015 CALI DORUSTAM Ot 401.9 01/07/2015 CALI DORUSTAM Ot 414.01 01/07/2015 CAIL DORUSTAM Ot 425.4 01/07/2015 CALI DO, RUSTAM Almaguer Ot 428.0 01/07/2015 CALI DO, RUSTAM Almaguer Ot 428.23 01/07/2015 CALI DO, RUSTAM Almaguer Ot 433.10 01/07/2015 CALI DO, RUSTAM Almaguer Ot 441.4 01/07/2015 CALI DO, RUSTAM Almaguer Ot 459.81 01/07/2015 CALI DO, RUSTAM Rosina Ot 486 01/07/2015 CALI DO, RUSTAM Almaguer Ot 496 01/07/2015 CALI DO, RUSTAM Almaguer Ot 518.81 01/07/2015 CALI DO, RUSTAM Almaguer Ot 707.12 01/07/2015 CALI DO, RUSTAM Almaguer Ot 715.90 01/07/2015 CALI DO, RUSTAM Almaguer Ot V43.3 01/07/2015 CALI DO, RUSTAM Almaguer Ot V45.02 01/07/2015 CALI DO, RUSTAM Almaguer Ot V58.61 01/07/2015 CALI DO, RUSTAM Almaguer Ot 244.9 01/07/2015 CALI DO, RUSTAM Almaguer Ot 272.4 01/07/2015 CALI DO, RUSTAM Almaguer Ot 394.0 01/07/2015 CALI DO, RUSTAM Almaguer Ot 401.9 01/07/2015 CALI DO, RUSTAM Almaguer Ot 414.01 01/07/2015 CALI DO, RUSTAM Almaguer Ot 425.4 01/07/2015 CALI DO, RUSTAM Almaguer Ot 428.0 01/07/2015 CALI DO, RUSTAM Almaguer Ot 428.23 01/07/2015 CALI DO, RUSTAM Almaguer Ot 433.10 01/07/2015 CALI DO, RUSTAM Almaguer Ot 441.4 01/07/2015 CALI DO, RUSTAM Almaguer Ot 459.81 01/07/2015 CALI DO, RUSTAM Rosina Ot 486 01/07/2015 CALI DO, RUSTAM Almaguer Ot 496 01/07/2015 CALI DO, RUSTAM Almaguer Ot 518.81 01/07/2015 CALI DO, RUSTAM Almaguer Ot 707.12 01/07/2015 CALI DO, RUSTAM Almaguer Ot 715.90 01/07/2015 CALI DO, RUSTAM Almaguer Ot V43.3 01/07/2015 CALI DO, RUSTAM Almaguer Ot V45.02 01/07/2015 CALI RUSTAM Rosina Ot V58.61 01/30/2015 PRANEETH SHUKLA MD Ot 272.4 01/30/2015 PRANEETH SHUKLA MD Ot 401.9 01/30/2015 PRANEETH SHUKLA MD Ot 414.00 01/30/2015 PRANEETH SHUKLA MD Ot 427.31 02/19/2015 PRANEETH SHUKLA MD Ot 272.4 02/19/2015 PRANEETH SHUKLA MD Ot 401.9 02/19/2015 PRANEETH SHUKLA MD Ot 414.00 02/19/2015 PRANEETH SHUKLA MD Ot 427.31 03/01/2015 KARI MILLER MD Ot 599.70 03/03/2015 PRANEETH SHUKLA MD Ot 272.4 HYPERLIPIDEMIA NEC/NOS 03/03/2015 PRANEETH SHUKLA MD Ot 401.9 HYPERTENSION NOS 03/03/2015 PRANEETH SHUKLA MD Ot 414.00 CORON ATHEROSCLER NOS TYPE VESSEL, NATIV 03/03/2015 PRANEETH SHUKLA MD Ot 427.31 ATRIAL FIBRILLATION 03/11/2015 KARI MILLER MD Ot 599.70 06/05/2015 PRANEETH SHUKLA MD Ot D64.9 ANEMIA, UNSPECIFIED 06/05/2015 PRANEETH SHUKLA MD Ot E03.9 HYPOTHYROIDISM, UNSPECIFIED 06/05/2015 PRANEETH SHUKLA MD Ot E78.5 HYPERLIPIDEMIA, UNSPECIFIED 06/05/2015 PRANEETH SHUKLA MD Ot 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 06/05/2015 PRANEETH SHUKLA MD Ot I25.10 ATHSCL HEART DISEASE OF [place] CORONARY 06/05/2015 PRANEETH SHUKLA MD Ot I27.2 OTHER SECONDARY PULMONARY HYPERTENSION 06/05/2015 PRANEETH SHUKLA MD Ot I42.9 CARDIOMYOPATHY, UNSPECIFIED 06/05/2015 PRANEETH SHUKLA MD Ot I48.91 UNSPECIFIED ATRIAL FIBRILLATION 06/05/2015 PRANEETH SHUKLA MD Ot I50.23 ACUTE ON CHRONIC SYSTOLIC (CONGESTIVE) H 06/05/2015 PRANEETH SHUKLA MD Ot I65.29 OCCLUSION AND STENOSIS OF UNSPECIFIED CA 06/05/2015 PRANEETH SHUKLA MD Ot I71.4 ABDOMINAL AORTIC ANEURYSM, WITHOUT RUPTU 06/05/2015 PRANEETH SHUKLA MD, Ot N18.9 CHRONIC KIDNEY DISEASE, UNSPECIFIED 06/05/2015 PRANEETH SHUKLA MD, Ot 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 06/05/2015 PRANEETH SHUKLA MD, Ot Z95.2 PRESENCE OF PROSTHETIC HEART VALVE 06/05/2015 PRANEETH SHUKLA MD, Ot Z95.810 PRESENCE OF AUTOMATIC (IMPLANTABLE) CARD 07/19/2015 RUSTAM CALI DO, Ot D63.8 ANEMIA IN OTHER CHRONIC DISEASES CLASSIF 07/19/2015 RUSTAM CALI DO, Ot E03.9 HYPOTHYROIDISM, UNSPECIFIED 07/19/2015 RUSTAM CALI DO, Ot E78.5 HYPERLIPIDEMIA, UNSPECIFIED 07/19/2015 RUSTAM CALI DO, Ot E86.0 DEHYDRATION 07/19/2015 RUSTAM CALI DO, Ot I08.1 RHEUMATIC DISORDERS OF BOTH MITRAL AND T 07/19/2015 RUSTAM CALI DO, Ot 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 07/19/2015 RUSTAM CALI DO, Ot I12.9 HYPERTENSIVE CHRONIC KIDNEY DISEASE W ST 07/19/2015 RUSTAM CALI DO, Ot I25.10 ATHSCL HEART DISEASE OF [place] CORONARY 07/19/2015 RUSTAM CALI DO, Ot I27.2 OTHER SECONDARY PULMONARY HYPERTENSION 07/19/2015 RUSTAM CALI DO, Ot I42.9 CARDIOMYOPATHY, UNSPECIFIED 07/19/2015 RUSTAM CALI DO, Ot I50.23 ACUTE ON CHRONIC SYSTOLIC (CONGESTIVE) H 07/19/2015 RUSTAM CALI DO, Ot I71.4 ABDOMINAL AORTIC ANEURYSM, WITHOUT RUPTU 07/19/2015 RUSTAM CALI DO, Ot I87.2 VENOUS INSUFFICIENCY (CHRONIC) (PERIPHER 07/19/2015 RUSTAM CALI DO, Ot J18.9 PNEUMONIA, UNSPECIFIED ORGANISM 07/19/2015 RUSTAM CALI DO, Ot N18.3 CHRONIC KIDNEY DISEASE, STAGE 3 (MODERAT 07/19/2015 RUSTAM CALI DO, Ot Z79.01 HALFWAY (CURRENT) USE OF ANTICOAGULANT 07/19/2015 RUSTAM CALI DO, Ot Z95.2 PRESENCE OF PROSTHETIC HEART VALVE 07/19/2015 RUSTAM CALI DO, Ot Z95.810 PRESENCE OF AUTOMATIC (IMPLANTABLE) CARD 01/13/2016 Ot 562.10 DIVERTICULOSIS COLON (W/O MENT OF HEMORR 01/13/2016 Ot 574.20 CHOLELITHIASIS NOS 01/13/2016 Ot V76.12 OTH SCREEN MAMMO-MALIGN NEOPLASM OF [place] 01/13/2016 Ot 428.0 CONGESTIVE HEART FAILURE NOS 01/13/2016 Ot 401.9 HYPERTENSION NOS 01/13/2016 Ot 413.9 ANGINA PECTORIS NEC/NOS 01/13/2016 Ot 414.00 CORON ATHEROSCLER NOS TYPE VESSEL, NATIV 01/13/2016 Ot V58.61 ANTICOAGULANTS,LT,CURRENT USE 01/13/2016 Ot V58.69 OTH MED,LT, CURRENT USE 01/13/2016 Ot V72.63 PRE- PROCEDURAL LABORATORY EXAMINATION 01/13/2016 Ot V72.81 EXAM-PRE- OPERATIVE CARDIOVASCULAR 01/13/2016 Ot V72.83 EXAM PRE- OPERATIVE NEC 01/13/2016 Ot 593.2 CYST OF KIDNEY, ACQUIRED 01/13/2016 Ot 397.0 TRICUSPID VALVE DISEASE 01/13/2016 Ot 401.9 HYPERTENSION NOS 01/13/2016 Ot 416.8 CHR PULMON HEART DIS NEC 01/13/2016 Ot 424.0 MITRAL VALVE DISORDER 01/13/2016 Ot 428.0 CONGESTIVE HEART FAILURE NOS 01/13/2016 Ot V43.3 HEART VALVE REPLAC NEC 01/13/2016 Ot 272.4 HYPERLIPIDEMIA NEC/NOS 01/13/2016 Ot 401.9 HYPERTENSION NOS 01/13/2016 Ot 427.31 ATRIAL FIBRILLATION 01/13/2016 Ot 427.81 SINOATRIAL NODE DYSFUNCT 01/13/2016 Ot 428.0 CONGESTIVE HEART FAILURE NOS 01/13/2016 Ot 454.8 VARICOSE VEINS LOWER EXTREM W OTHER COMP 01/13/2016 Ot V43.3 HEART VALVE REPLAC NEC 01/13/2016 Ot V58.61 ANTICOAGULANTS,LT,CURRENT USE 01/13/2016 Ot V58.69 OTH MED,LT, CURRENT USE 01/13/2016 RUSTAM CALI DO Ot 429.3 CARDIOMEGALY 01/13/2016 RUSTAM CALI DO Ot 486 PNEUMONIA, ORGANISM NOS 01/13/2016 Ot 593.2 CYST OF KIDNEY, ACQUIRED 01/13/2016 JERED GAUTHIERTHANH Ot 272.4 HYPERLIPIDEMIA NEC/NOS 01/13/2016 THANH VELÁSQUEZ Ot 401.9 HYPERTENSION NOS 01/13/2016 THANH VELÁSQUEZ Ot 414.00 CORON ATHEROSCLER NOS TYPE VESSEL, NATIV 01/13/2016 THANH VELÁSQUEZ Ot 416.8 CHR PULMON HEART DIS NEC 01/13/2016 THANH VELÁSQUEZ Ot 424.0 MITRAL VALVE DISORDER 01/13/2016 THANH VELÁSQUEZ Ot 427.81 SINOATRIAL NODE DYSFUNCT 01/13/2016 THANH VELÁSQUEZ Ot 428.0 CONGESTIVE HEART FAILURE NOS 01/13/2016 THANH VELÁSQUEZ Ot V43.3 HEART VALVE REPLAC NEC 01/13/2016 ANGELA HERNÁNDEZ, KARI Chatterjee Ot 593.2 CYST OF KIDNEY, ACQUIRED 01/13/2016 ANGELA HERNÁNDEZ, KARI Chatterjee Ot 793.5 NOSP (ABN) FINDINGS ON RADIOLOGICAL OT 01/13/2016 RUSTAM CALI DO Ot 429.3 CARDIOMEGALY 01/13/2016 RUSTAM CALI DO Ot 515 POSTINFLAM PULM FIBROSIS 01/13/2016 RUSTAM CALI DO Ot 783.21 LOSS OF WEIGHT 01/13/2016 RUSTAM CALI DO Ot V45.01 CARDIAC PACEMAKER IN SITU 01/13/2016 RUSTAM CALI DO Ot 429.3 CARDIOMEGALY 01/13/2016 RUSTAM CALI DO Ot 511.9 PLEURAL EFFUSION NOS 01/13/2016 RUSTAM CALI DO Ot 562.10 DIVERTICULOSIS COLON (W/O MENT OF HEMORR 01/13/2016 RUSTAM CALI DO Ot 789.02 ABDOMINAL PAIN, LEFT UPPER QUADRANT 01/13/2016 RUSTAM CALI DO Ot 793.19 OTHER NONSPECIFIC ABNORMAL FINDING OF JOSE 01/13/2016 RUSTAM CALI DO Ot 793.6 NOSP (ABN) FINDINGS ON RADIOLOGICAL OT 01/13/2016 RUSTAM CALI DO Ot 429.3 CARDIOMEGALY 01/13/2016 RUSTAM CALI DO Ot 496 CHR AIRWAY OBSTRUCT NEC 01/13/2016 RUSTAM ACLI DO Ot 722.51 THORACIC DISC DEGEN 01/13/2016 RUSTAM CALI DO Ot 786.59 CHEST PAIN NEC 01/13/2016 RUSTAM CALI DO Ot V45.01 CARDIAC PACEMAKER IN SITU 01/13/2016 RUSTAM CALI DO Ot 724.2 LUMBAGO 01/13/2016 PRANEETH SHUKLA MD Ot 733.90 BONE CARTILAGE DIS NOS 01/13/2016 ANT LOPEZ DO Ot 786.05 SHORTNESS OF BREATH 01/13/2016 ANT LOPEZ DO Ot 428.0 CONGESTIVE HEART FAILURE NOS 01/13/2016 ANT LOPEZ DO Ot 511.9 PLEURAL EFFUSION NOS 01/13/2016 ANT LOPEZ DO Ot 518.89 OTHER DISEASES OF LUNG, NEC 01/13/2016 ANT LOPEZ DO Ot 799.02 HYPOXEMIA 01/13/2016 ANGELA HERNÁNDEZ, KARI Chatterjee Ot 599.70 HEMATURIA, UNSPECIFIED 01/13/2016 PRANEETH SHUKLA MD Ot 272.4 HYPERLIPIDEMIA NEC/NOS 01/13/2016 PRANEETH SHUKLA MD Ot 401.9 HYPERTENSION NOS 01/13/2016 PRANEETH SHUKLA MD Ot 414.00 CORON ATHEROSCLER NOS TYPE VESSEL, NATIV 01/13/2016 PRANEETH SHUKLA MD Ot 427.31 ATRIAL FIBRILLATION 01/14/2016 PRANEETH SHUKLA MD Ot E78.2 MIXED HYPERLIPIDEMIA 01/14/2016 PRANEETH SHUKLA MD Ot I10 ESSENTIAL (PRIMARY) HYPERTENSION 01/14/2016 PRANEETH SHUKLA MD Ot I25.10 ATHSCL HEART DISEASE OF [place] CORONARY 01/14/2016 PRANEETH SHUKLA MD Ot I48.0 PAROXYSMAL ATRIAL FIBRILLATION 01/14/2016 PRANEETH SHUKLA MD Ot I71.4 ABDOMINAL AORTIC ANEURYSM, WITHOUT RUPTU 01/17/2016 PRANEETH SHUKLA MD Ot E78.2 MIXED HYPERLIPIDEMIA 01/17/2016 PRANEETH SHUKLA MD Ot I10 ESSENTIAL (PRIMARY) HYPERTENSION 01/17/2016 PRANEETH SHUKLA MD Ot I25.10 ATHSCL HEART DISEASE OF [place] CORONARY 01/17/2016 PRANEETH SHUKLA MD Ot I48.0 PAROXYSMAL ATRIAL FIBRILLATION 01/17/2016 PRANEETH SHUKLA MD Ot I71.4 ABDOMINAL AORTIC ANEURYSM, WITHOUT RUPTU 02/08/2016 VAZQUEZ HERNÁNDEZ, PRANEETH Almaguer Ot E78.2 MIXED HYPERLIPIDEMIA 02/08/2016 PRANEETH SHUKLA MD Ot I10 ESSENTIAL (PRIMARY) HYPERTENSION 02/08/2016 PRANEETH SHUKLA MD Ot I25.10 ATHSCL HEART DISEASE OF [place] CORONARY 02/08/2016 VAZQUEZ HERNÁNDEZ, PRANEETH Almaguer Ot I48.0 PAROXYSMAL ATRIAL FIBRILLATION 02/08/2016 PRANEETH SHUKLA MD Ot I71.4 ABDOMINAL AORTIC ANEURYSM, WITHOUT RUPTU 02/11/2016 PRANEETH SHUKLA MD Ot E78.2 MIXED HYPERLIPIDEMIA 02/11/2016 VAZQUEZ HERNÁNDEZ, PRANEETH Almaguer Ot I10 ESSENTIAL (PRIMARY) HYPERTENSION 02/11/2016 PRANEETH SHUKLA MD Ot I25.10 ATHSCL HEART DISEASE OF [place] CORONARY 02/11/2016 PRANEETH SHUKLA MD Ot I48.0 PAROXYSMAL ATRIAL FIBRILLATION 02/11/2016 PRANEETH SHUKLA MD Ot I71.4 ABDOMINAL AORTIC ANEURYSM, WITHOUT RUPTU 03/27/2016 ANGELA HERNÁNDEZ, KARI Chatterjee Ot N28.1 CYST OF KIDNEY, ACQUIRED 04/12/2016 THANH VELÁSQUEZ Ot E78.2 MIXED HYPERLIPIDEMIA 04/12/2016 THANH VELÁSQUEZ Ot I10 ESSENTIAL (PRIMARY) HYPERTENSION 04/12/2016 THANH VELÁSQUEZ Ot I25.10 ATHSCL HEART DISEASE OF [place] CORONARY 04/12/2016 THANH VELÁSQUEZ Ot I71.4 ABDOMINAL AORTIC ANEURYSM, WITHOUT RUPTU 04/18/2016 KARI MILLER MD Ot N28.1 CYST OF KIDNEY, ACQUIRED 04/28/2016 KARI MILLER MD Ot N28.1 CYST OF KIDNEY, ACQUIRED 05/02/2016 THANH VELÁSQUEZ Ot E78.2 MIXED HYPERLIPIDEMIA 05/02/2016 THANH VELÁSQUEZ Ot I10 ESSENTIAL (PRIMARY) HYPERTENSION 05/02/2016 THANH VELÁSQUEZ Ot I25.10 ATHSCL HEART DISEASE OF [place] CORONARY 05/02/2016 THANH VELÁSQUEZ Ot I71.4 ABDOMINAL AORTIC ANEURYSM, WITHOUT RUPTU 05/05/2016 THANH VELÁSQUEZ Ot E78.2 MIXED HYPERLIPIDEMIA 05/05/2016 THANH VELÁSQUEZ Ot I10 ESSENTIAL (PRIMARY) HYPERTENSION 05/05/2016 THANH VELÁSQUEZ Ot I25.10 ATHSCL HEART DISEASE OF [place] CORONARY 05/05/2016 THANH VELÁSQUEZ Ot I71.4 ABDOMINAL AORTIC ANEURYSM, WITHOUT RUPTU 12/20/2016 Ot 593.2 CYST OF KIDNEY, ACQUIRED 12/20/2016 Ot 397.0 TRICUSPID VALVE DISEASE 12/20/2016 Ot 401.9 HYPERTENSION NOS 12/20/2016 Ot 416.8 CHR PULMON HEART DIS NEC 12/20/2016 Ot 424.0 MITRAL VALVE DISORDER 12/20/2016 Ot 428.0 CONGESTIVE HEART FAILURE NOS 12/20/2016 Ot V43.3 HEART VALVE REPLAC NEC 12/20/2016 Ot 272.4 HYPERLIPIDEMIA NEC/NOS 12/20/2016 Ot 401.9 HYPERTENSION NOS 12/20/2016 Ot 427.31 ATRIAL FIBRILLATION 12/20/2016 Ot 427.81 SINOATRIAL NODE DYSFUNCT 12/20/2016 Ot 428.0 CONGESTIVE HEART FAILURE NOS 12/20/2016 Ot 454.8 VARICOSE VEINS LOWER EXTREM W OTHER COMP 12/20/2016 Ot V43.3 HEART VALVE REPLAC NEC 12/20/2016 Ot V58.61 ANTICOAGULANTS,LT,CURRENT USE 12/20/2016 Ot V58.69 OTH MED,LT, CURRENT USE 12/20/2016 RUSTAM CALI DO Ot 429.3 CARDIOMEGALY 12/20/2016 RUSTAM CALI DO Ot 486 PNEUMONIA, ORGANISM NOS 12/20/2016 Ot 593.2 CYST OF KIDNEY, ACQUIRED 12/20/2016 THANH VELÁSQUEZ Ot 272.4 HYPERLIPIDEMIA NEC/NOS 12/20/2016 THANH VELÁSQUEZ Ot 401.9 HYPERTENSION NOS 12/20/2016 THANH VELÁSQUEZ Ot 414.00 CORON ATHEROSCLER NOS TYPE VESSEL, NATIV 12/20/2016 THANH VELÁSQUEZ Ot 416.8 CHR PULMON HEART DIS NEC 12/20/2016 THANH VELÁSQUEZ Ot 424.0 MITRAL VALVE DISORDER 12/20/2016 THANH VELÁSQUEZ Ot 427.81 SINOATRIAL NODE DYSFUNCT 12/20/2016 THANH VELÁSQUEZ Ot 428.0 CONGESTIVE HEART FAILURE NOS 12/20/2016 THANH VELÁSQUEZ Ot V43.3 HEART VALVE REPLAC NEC 12/20/2016 ANGELA HERNÁNDEZ, KARI Chatterjee Ot 593.2 CYST OF KIDNEY, ACQUIRED 12/20/2016 ANGELA HERNÁNDEZ, KARI Chatterjee Ot 793.5 NOSP (ABN) FINDINGS ON RADIOLOGICAL OT 12/20/2016 RUSTAM CALI DO Ot 429.3 CARDIOMEGALY 12/20/2016 RUSTAM CALI DO Ot 515 POSTINFLAM PULM FIBROSIS 12/20/2016 RUSTAM CALI DO Ot 783.21 LOSS OF WEIGHT 12/20/2016 RUSTAM CALI DO Ot V45.01 CARDIAC PACEMAKER IN SITU 12/20/2016 RUSTAM CALI DO Ot 429.3 CARDIOMEGALY 12/20/2016 RUSTAM CALI DO Ot 511.9 PLEURAL EFFUSION NOS 12/20/2016 RUSTAM CALI DO Ot 562.10 DIVERTICULOSIS COLON (W/O MENT OF HEMORR 12/20/2016 RUSTAM CALI DO Ot 789.02 ABDOMINAL PAIN, LEFT UPPER QUADRANT 12/20/2016 RUSTAM CALI DO Ot 793.19 OTHER NONSPECIFIC ABNORMAL FINDING OF JOSE 12/20/2016 RUSTAM CALI DO Ot 793.6 NOSP (ABN) FINDINGS ON RADIOLOGICAL OT 12/20/2016 RUSTAM CALI DO Ot 429.3 CARDIOMEGALY 12/20/2016 RUSTAM CALI DO Ot 496 CHR AIRWAY OBSTRUCT NEC 12/20/2016 RUSTAM CALI DO Ot 722.51 THORACIC DISC DEGEN 12/20/2016 RUSTAM CALI DO Ot 786.59 CHEST PAIN NEC 12/20/2016 RUSTAM CALI DO Ot V45.01 CARDIAC PACEMAKER IN SITU 12/20/2016 RUSTAM CALI DO Ot 724.2 LUMBAGO 12/20/2016 VAZQUEZ HERNÁNDEZ, PRANEETH Almaguer Ot 733.90 BONE CARTILAGE DIS NOS 12/20/2016 ANT LOPEZ DO Ot 786.05 SHORTNESS OF BREATH 12/20/2016 ANT LOPEZ DO Ot 428.0 CONGESTIVE HEART FAILURE NOS 12/20/2016 JESSICAANT SOSA DO Ot 511.9 PLEURAL EFFUSION NOS 12/20/2016 JESSICAANT SOSA DO Ot 518.89 OTHER DISEASES OF LUNG, NEC 12/20/2016 JESSICAANT SOSA DO Ot 799.02 HYPOXEMIA 12/20/2016 ANGELA HERNÁNDEZ, KARI Chatterjee Ot 599.70 HEMATURIA, UNSPECIFIED 12/20/2016 PRANEETH SHUKLA MD Ot 272.4 HYPERLIPIDEMIA NEC/NOS 12/20/2016 PRANEETH SHUKLA MD Ot 401.9 HYPERTENSION NOS 12/20/2016 PRANEETH SHUKLA MD Ot 414.00 CORON ATHEROSCLER NOS TYPE VESSEL, NATIV 12/20/2016 PRANEETH SHUKLA MD Ot 427.31 ATRIAL FIBRILLATION 12/20/2016 PRANEETH SHUKLA MD Ot E78.2 MIXED HYPERLIPIDEMIA 12/20/2016 PRANEETH SHUKLA MD Ot I10 ESSENTIAL (PRIMARY) HYPERTENSION 12/20/2016 PRANEETH SHUKLA MD Ot I25.10 ATHSCL HEART DISEASE OF [place] CORONARY 12/20/2016 PRANEETH SHUKLA MD Ot I48.0 PAROXYSMAL ATRIAL FIBRILLATION 12/20/2016 PRANEETH SHUKLA MD Ot I71.4 ABDOMINAL AORTIC ANEURYSM, WITHOUT RUPTU 12/20/2016 ANGELA HERNÁNDEZ, KARI Chatterjee Ot N28.1 CYST OF KIDNEY, ACQUIRED 12/20/2016 THANH VELÁSQUEZ Ot E78.2 MIXED HYPERLIPIDEMIA 12/20/2016 THANH VELÁSQUEZ Ot I10 ESSENTIAL (PRIMARY) HYPERTENSION 12/20/2016 THANH VELÁSQUEZ Ot I25.10 ATHSCL HEART DISEASE OF [place] CORONARY 12/20/2016 THANH VELÁSQUEZ Ot I71.4 ABDOMINAL AORTIC ANEURYSM, WITHOUT RUPTU 12/20/2016 PRANEETH SHUKLA MD Ot E78.2 MIXED HYPERLIPIDEMIA 12/20/2016 PRANEETH SHUKLA MD Ot I10 ESSENTIAL (PRIMARY) HYPERTENSION 12/20/2016 PRANEETH SHUKLA MD Ot I25.10 ATHSCL HEART DISEASE OF [place] CORONARY 12/20/2016 PRANEETH SHUKLA MD Ot I48.0 PAROXYSMAL ATRIAL FIBRILLATION 12/20/2016 VAZQUEZ MD, BASHAR J Ot I71.4 ABDOMINAL AORTIC ANEURYSM, WITHOUT RUPTU 12/25/2016 PRANEETH SHUKLA MD J Ot E78.2 MIXED HYPERLIPIDEMIA 12/25/2016 PRANEETH SHUKLA MD J Ot I10 ESSENTIAL (PRIMARY) HYPERTENSION 12/25/2016 PRANEETH SHUKLA MD J Ot I25.10 ATHSCL HEART DISEASE OF [place] CORONARY 12/25/2016 PRANEETH SHUKLA MD J Ot I48.0 PAROXYSMAL ATRIAL FIBRILLATION 12/25/2016 PRANEETH SHUKLA MD J Ot I71.4 ABDOMINAL AORTIC ANEURYSM, WITHOUT RUPTU 12/26/2016 PRANEETH SHUKLA MD J Ot E78.2 MIXED HYPERLIPIDEMIA 12/26/2016 PRANEETH SHUKLA MD J Ot I10 ESSENTIAL (PRIMARY) HYPERTENSION 12/26/2016 PRANEETH SHUKLA MD Ot I25.10 ATHSCL HEART DISEASE OF [place] CORONARY 12/26/2016 PRANEETH SHUKLA MD J Ot I48.0 PAROXYSMAL ATRIAL FIBRILLATION 12/26/2016 PRANEETH SHUKLA MD Ot I71.4 ABDOMINAL AORTIC ANEURYSM, WITHOUT RUPTU 12/28/2016 PRANEETH SHUKLA MD Ot E78.2 MIXED HYPERLIPIDEMIA 12/28/2016 PRANEETH SHUKLA MD J Ot I10 ESSENTIAL (PRIMARY) HYPERTENSION 12/28/2016 PRANEETH SHUKLA MD Ot I25.10 ATHSCL HEART DISEASE OF [place] CORONARY 12/28/2016 PRANEETH SHUKLA MD Ot I48.0 PAROXYSMAL ATRIAL FIBRILLATION 12/28/2016 PRANEETH SHUKLA MD Ot I71.4 ABDOMINAL AORTIC ANEURYSM, WITHOUT RUPTU 01/10/2017 PRANEETH SHUKLA MD Ot E78.2 MIXED HYPERLIPIDEMIA 01/10/2017 PRANEETH SHUKLA MD J Ot I10 ESSENTIAL (PRIMARY) HYPERTENSION 01/10/2017 PRANEETH SHUKLA MD Ot I25.10 ATHSCL HEART DISEASE OF [place] CORONARY 01/10/2017 PRANEETH SHUKLA MD Ot I48.0 PAROXYSMAL ATRIAL FIBRILLATION 01/10/2017 PRANEETH SHUKLA MD Ot I71.4 ABDOMINAL AORTIC ANEURYSM, WITHOUT RUPTU 01/15/2017 PRANEETH SHUKLA MD Ot E78.2 MIXED HYPERLIPIDEMIA 01/15/2017 PRANEETH SHUKLA MD J Ot I10 ESSENTIAL (PRIMARY) HYPERTENSION 01/15/2017 PRANEETH SHUKLA MD J Ot I25.10 ATHSCL HEART DISEASE OF [place] CORONARY 01/15/2017 PRANEETH SHUKLA MD Ot I48.0 PAROXYSMAL ATRIAL FIBRILLATION 01/15/2017 PRANEETH SHUKLA MD Ot I71.4 ABDOMINAL AORTIC ANEURYSM, WITHOUT RUPTU 01/18/2017 PRANEETH SHUKLA MD Ot E78.2 MIXED HYPERLIPIDEMIA 01/18/2017 PRANEETH SHUKLA MD Ot I10 ESSENTIAL (PRIMARY) HYPERTENSION 01/18/2017 PRANEETH SHUKLA MD Ot I25.10 ATHSCL HEART DISEASE OF [place] CORONARY 01/18/2017 PRANEETH SHUKLA MD Ot I48.0 PAROXYSMAL ATRIAL FIBRILLATION 01/18/2017 PRANEETH SHUKLA MD Ot I71.4 ABDOMINAL AORTIC ANEURYSM, WITHOUT RUPTU 01/18/2017 PRANEETH SHUKLA MD Ot E78.2 MIXED HYPERLIPIDEMIA 01/18/2017 PRANEETH SHUKLA MD J Ot I10 ESSENTIAL (PRIMARY) HYPERTENSION 01/18/2017 PRANEETH SHUKLA MD Ot I25.10 ATHSCL HEART DISEASE OF [place] CORONARY 01/18/2017 PRANEETH SHUKLA MD Ot I48.0 PAROXYSMAL ATRIAL FIBRILLATION 01/18/2017 PRANEETH SHUKLA MD Ot I71.4 ABDOMINAL AORTIC ANEURYSM, WITHOUT RUPTU 04/05/2017 ANGELA HERNÁNDEZ, KARI Chatterjee Ot 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 04/05/2017 KARI MILLER MD Ot R18.8 OTHER ASCITES 04/11/2017 KARI MILLER MD Ot 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 04/11/2017 KARI MILLER MD Ot R18.8 OTHER ASCITES 04/13/2017 GEM FOSTER MD Ot I50.22 CHRONIC SYSTOLIC (CONGESTIVE) HEART FAIL 04/13/2017 GEM FOSTER MD Ot 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 04/13/2017 GEM FOSTER MD Ot 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 04/13/2017 GEM FOSTER MD Ot 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 04/18/2017 GEM FOSTER MD Ot I50.22 CHRONIC SYSTOLIC (CONGESTIVE) HEART FAIL 04/18/2017 GEM FOSTER MD Ot 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 04/18/2017 CRISTIAN MD, GEM D Ot 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 04/18/2017 GEM FOSTER MD Ot 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 04/26/2017 YESENIA QUIROS APRN Ot I50.22 CHRONIC SYSTOLIC (CONGESTIVE) HEART FAIL 04/26/2017 YESENIA QUIROS VOUCHER CLERK Ot 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 04/26/2017 YESENIA QUIROS VOUCHER CLERK Ot 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 04/26/2017 YESENIA QUIROS VOUCHER CLERK Ot 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 04/26/2017 YESENIA QUIROS VOUCHER CLERK Ot L97.212 NON-PRESSURE CHRONIC ULCER OF RIGHT CALF 04/26/2017 YESENIA QUIROS VOUCHER CLERK Ot 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 05/01/2017 ANGELA HERNÁNDEZ, KARI Chatterjee Ot 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 05/01/2017 KARI MILLER MD Ot R18.8 OTHER ASCITES 05/02/2017 GEM FOSTER MD Ot I50.22 CHRONIC SYSTOLIC (CONGESTIVE) HEART FAIL 05/02/2017 GEM FOSTER MD Ot 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 05/02/2017 GEM FOSTER MD Ot 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 05/02/2017 GEM FOSTER MD Ot 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 05/08/2017 KARI MILLER MD Ot 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 05/08/2017 KARI MILLER MD Ot R18.8 OTHER ASCITES 05/09/2017 GEM FOSTER MD Ot I50.22 CHRONIC SYSTOLIC (CONGESTIVE) HEART FAIL 05/09/2017 GEM FOSTER MD Ot 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 05/09/2017 GEM FOSTER MD Ot 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 05/09/2017 GEM FOSTER MD Ot 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 05/11/2017 YESENIA QUIROS VOUCHER CLERK Ot I50.22 CHRONIC SYSTOLIC (CONGESTIVE) HEART FAIL 05/11/2017 YESENIA QUIROS VOUCHER CLERK Ot 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 05/11/2017 YESENIA QUIROS APRN Ot 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 05/11/2017 YESENIA QUIROS VOUCHER CLERK Ot 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 05/11/2017 YESENIA QUIROS VOUCHER CLERK Ot L97.212 NON-PRESSURE CHRONIC ULCER OF RIGHT CALF 05/11/2017 YESENIA QUIROS VOUCHER CLERK Ot 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 05/12/2017 GEM FOSTER MD Ot I50.22 CHRONIC SYSTOLIC (CONGESTIVE) HEART FAIL 05/12/2017 GEM FOSTER MD Ot 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 05/12/2017 GEM FOSTER MD Ot 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 05/12/2017 GEM FOSTER MD Ot 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 05/12/2017 GEM FOSTER MD Ot L97.212 NON-PRESSURE CHRONIC ULCER OF RIGHT CALF 05/12/2017 GEM FOSTER MD Ot 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 05/16/2017 YESENIA QUIROS APRN Ot I50.22 CHRONIC SYSTOLIC (CONGESTIVE) HEART FAIL 05/16/2017 YESENIA QUIROS VOUCHER CLERK Ot 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 05/16/2017 YESENIA QUIROS VOUCHER CLERK Ot 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 05/16/2017 YESENIA QUIROS APRN Ot 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 05/16/2017 YESENIA QUIROS VOUCHER CLERK Ot L97.212 NON-PRESSURE CHRONIC ULCER OF RIGHT CALF 05/16/2017 YESENIA QUIROS VOUCHER CLERK Ot 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 05/18/2017 YESENIA QUIROS VOUCHER CLERK Ot I50.22 CHRONIC SYSTOLIC (CONGESTIVE) HEART FAIL 05/18/2017 YESENIA QUIROS VOUCHER CLERK Ot 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 05/18/2017 YESENIA QUIROS VOUCHER CLERK Ot 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 05/18/2017 YESENIA QUIROS VOUCHER CLERK Ot 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 05/18/2017 YESENIA QUIROS VOUCHER CLERK Ot L97.212 NON-PRESSURE CHRONIC ULCER OF RIGHT CALF 05/18/2017 YESENIA QUIROS VOUCHER CLERK Ot 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 05/18/2017 GEM FOSTER MD Ot I50.22 CHRONIC SYSTOLIC (CONGESTIVE) HEART FAIL 05/18/2017 GEM FOSTER MD Ot 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 05/18/2017 GEM FOSTER MD Ot 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 05/18/2017 GEM FOSTER MD Ot 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 05/18/2017 GEM FOSTER MD Ot L97.212 NON-PRESSURE CHRONIC ULCER OF RIGHT CALF 05/18/2017 GEM FOSTER MD Ot 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 05/24/2017 YESENIA QUIROS APRN Ot I50.22 CHRONIC SYSTOLIC (CONGESTIVE) HEART FAIL 05/24/2017 YESENIA QUIROS VOUCHER CLERK Ot 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 05/24/2017 YESENIA QUIROS VOUCHER CLERK Ot 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 05/24/2017 YESENIA QUIROS APRN Ot 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 05/24/2017 YESENIA QUIROS VOUCHER CLERK Ot L97.212 NON-PRESSURE CHRONIC ULCER OF RIGHT CALF 05/24/2017 YESENIA QUIROS APRN Ot 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 05/25/2017 GEM FOSTER MD Ot I50.22 CHRONIC SYSTOLIC (CONGESTIVE) HEART FAIL 05/25/2017 GEM FOSTER MD Ot 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 05/25/2017 GEM FOSTER MD Ot 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 05/25/2017 GEM FOSTER MD Ot 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 05/25/2017 GEM FOSTER MD Ot L97.212 NON-PRESSURE CHRONIC ULCER OF RIGHT CALF 05/25/2017 GEM FOSTER MD Ot 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 05/28/2017 GEM FOSTER MD Ot I50.22 CHRONIC SYSTOLIC (CONGESTIVE) HEART FAIL 05/28/2017 GEM FOSTER MD Ot I70.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 [place] [facility] 05/28/2017 GEM FOSTER MD Ot 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 05/28/2017 GEM FOSTER MD Ot 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 05/28/2017 GEM FOSTER MD Ot L97.212 NON-PRESSURE CHRONIC ULCER OF RIGHT CALF 05/28/2017 GEM FOSTER MD Ot 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 05/30/2017 GEM FOSTER MD, Ot I50.22 CHRONIC SYSTOLIC (CONGESTIVE) HEART FAIL 05/30/2017 GEM FOSTER MD Ot I70.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 [place] [facility] 05/30/2017 GME FOSTER MD Ot 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 05/30/2017 GEM FOSTER MD Ot 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 05/30/2017 GEM FOSTER MD Ot L97.212 NON-PRESSURE CHRONIC ULCER OF RIGHT CALF 05/30/2017 GEM FOSTER MD Ot 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 05/30/2017 GEM FOSTER MD Ot I50.22 CHRONIC SYSTOLIC (CONGESTIVE) HEART FAIL 05/30/2017 GEM FOSTER MD Ot I70.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 [place] [facility] 05/30/2017 GEM FOSTER MD Ot 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 05/30/2017 GEM FOSTER MD Ot 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 05/30/2017 GEM FOSTER MD Ot L97.212 NON-PRESSURE CHRONIC ULCER OF RIGHT CALF 05/30/2017 GEM FOSTER MD Ot 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 06/01/2017 PRANEETH SHUKLA MD Ot E78.5 HYPERLIPIDEMIA, UNSPECIFIED 06/01/2017 PRANEETH SHUKLA MD Ot 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 06/01/2017 VAZQUEZ MD, BASHAR J Ot I25.10 ATHSCL HEART DISEASE OF [place] CORONARY 06/01/2017 PRANEETH SHUKLA MD Ot I25.5 ISCHEMIC CARDIOMYOPATHY 06/01/2017 PRANEETH SHUKLA MD Ot I48.0 PAROXYSMAL ATRIAL FIBRILLATION 06/01/2017 PRANEETH SHUKLA MD, Ot I49.5 SICK SINUS SYNDROME 06/01/2017 PRANEETH SHUKLA MD Ot I50.22 CHRONIC SYSTOLIC (CONGESTIVE) HEART FAIL 06/01/2017 PRANEETH SHUKLA MD Ot I70.203 UNSP ATHSCL [place] [facility] 06/01/2017 PRANEETH SHUKLA MD Ot 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 06/01/2017 PRANEETH SHUKLA MD Ot I71.4 ABDOMINAL AORTIC ANEURYSM, WITHOUT RUPTU 06/01/2017 PRANEETH SHUKLA MD Ot L97.519 NON-PRS CHRONIC ULCER OTH PRT RIGHT FOOT 06/01/2017 PRANEETH SHUKLA MD Ot Z79.01 HALFWAY (CURRENT) USE OF ANTICOAGULANT 06/01/2017 PRANEETH SHUKLA MD Ot Z79.899 OTHER HALFWAY (CURRENT) DRUG THERAPY 06/01/2017 PRANEETH SHUKLA MD Ot Z95.2 PRESENCE OF PROSTHETIC HEART VALVE 06/06/2017 GEM FOSTER MD Ot I50.22 CHRONIC SYSTOLIC (CONGESTIVE) HEART FAIL 06/06/2017 GEM FOSTER MD Ot I70.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 [place] ARTERIES OF [facility] 06/06/2017 GEM FOSTER MD Ot 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 06/06/2017 GEM FOSTER MD Ot 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 06/06/2017 GEM FOSTER MD Ot L97.212 NON-PRESSURE CHRONIC ULCER OF RIGHT CALF 06/06/2017 GEM FOSTER MD Ot 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 06/06/2017 GEM FOSTER MD Ot I50.22 CHRONIC SYSTOLIC (CONGESTIVE) HEART FAIL 06/06/2017 GEM FOSTER MD Ot 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 06/06/2017 GEM FOSTER MD Ot 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 06/06/2017 GEM FOSTER MD Ot 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 06/06/2017 GEM FOSTER MD Ot L97.212 NON-PRESSURE CHRONIC ULCER OF RIGHT CALF 06/06/2017 GEM FOSTER MD Ot 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 06/06/2017 PRANEETH SHUKLA MD Ot E78.5 HYPERLIPIDEMIA, UNSPECIFIED 06/06/2017 PRANEETH SHUKLA MD Ot 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 06/06/2017 PRANEETH SHUKLA MD Ot I25.10 ATHSCL HEART DISEASE OF [place] CORONARY 06/06/2017 PRANEETH SHUKLA MD Ot I25.5 ISCHEMIC CARDIOMYOPATHY 06/06/2017 PRANEETH SHUKLA MD Ot I48.0 PAROXYSMAL ATRIAL FIBRILLATION 06/06/2017 PRANEETH SHUKLA MD Ot I49.5 SICK SINUS SYNDROME 06/06/2017 PRANEETH SHUKLA MD Ot I50.22 CHRONIC SYSTOLIC (CONGESTIVE) HEART FAIL 06/06/2017 PRANEETH SHUKLA MD Ot I70.203 UNSP ATHSCL [place] [facility]IES OF [facility] 06/06/2017 PRANEETH SHUKLA MD Ot 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 06/06/2017 PRANEETH SHUKLA MD Ot I71.4 ABDOMINAL AORTIC ANEURYSM, WITHOUT RUPTU 06/06/2017 PRANEETH SHUKLA MD Ot L97.519 NON-PRS CHRONIC ULCER OTH PRT RIGHT FOOT 06/06/2017 PRANEETH SHUKLA MD Ot 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 06/06/2017 PRANEETH SHUKLA MD Ot Z79.899 OTHER CARDIAC TECHNICIAN (CURRENT) DRUG THERAPY 06/06/2017 PRANEETH SHUKLA MD Ot Z95.2 PRESENCE OF PROSTHETIC HEART VALVE 06/07/2017 GEM FOSTER MD Ot I50.22 CHRONIC SYSTOLIC (CONGESTIVE) HEART FAIL 06/07/2017 GEM FOSTER MD Ot 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 06/07/2017 GEM FOSTER MD Ot 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 06/07/2017 GEM FOSTER MD Ot 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 06/07/2017 GEM FOSTER MD Ot L97.212 NON-PRESSURE CHRONIC ULCER OF RIGHT CALF 06/07/2017 GEM FOSTER MD Ot 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 06/08/2017 GEM FOSTER MD Ot I50.22 CHRONIC SYSTOLIC (CONGESTIVE) HEART FAIL 06/08/2017 GME FOSTER MD Ot 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 06/08/2017 GEM FOSTER MD Ot 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 06/08/2017 GEM FOSTER MD Ot 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 06/08/2017 GEM FOSTER MD Ot L97.212 NON-PRESSURE CHRONIC ULCER OF RIGHT CALF 06/08/2017 GEM FOSTER MD Ot 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 2017 GEM FOSTER MD Ot I50.22 CHRONIC SYSTOLIC (CONGESTIVE) HEART FAIL 2017 GEM FOSTER MD Ot 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 2017 GEM FOSTER MD Ot 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 2017 GEM FOSTER MD Ot 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 2017 GEM FOSTER MD Ot L97.212 NON-PRESSURE CHRONIC ULCER OF RIGHT CALF 2017 GEM FOSTER MD Ot 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 06/13/2017 GEM FOSTER MD Ot I50.22 CHRONIC SYSTOLIC (CONGESTIVE) HEART FAIL 06/13/2017 GEM FOSTER MD Ot 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 06/13/2017 GEM FOSTER MD Ot 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 06/13/2017 GEM FOSTER MD Ot 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 06/13/2017 GEM FOSTER MD Ot L97.212 NON-PRESSURE CHRONIC ULCER OF RIGHT CALF 06/13/2017 GEM FOSTER MD Ot 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 06/13/2017 GEM FOSTER MD Ot I50.22 CHRONIC SYSTOLIC (CONGESTIVE) HEART FAIL 06/13/2017 GEM FOSTER MD Ot 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 06/13/2017 GEM FOSTER MD Ot 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 06/13/2017 GEM FOSTER MD Ot 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 06/13/2017 GEM FOSTER MD Ot L97.212 NON-PRESSURE CHRONIC ULCER OF RIGHT CALF 06/13/2017 GEM FOSTER MD Ot 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 06/14/2017 GEM FOSTER MD Ot I50.22 CHRONIC SYSTOLIC (CONGESTIVE) HEART FAIL 06/14/2017 GEM FOSTER MD Ot 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 06/14/2017 GEM FOSTER MD Ot 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 06/14/2017 GEM FOSTER MD Ot 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 06/14/2017 GEM FOSTER MD Ot L97.212 NON-PRESSURE CHRONIC ULCER OF RIGHT CALF 06/14/2017 GEM FOSTER MD Ot 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 06/20/2017 GEM FOSTER MD Ot I50.22 CHRONIC SYSTOLIC (CONGESTIVE) HEART FAIL 06/20/2017 GEM FOSTER MD Ot 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 06/20/2017 GEM FOSTER MD Ot 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 06/20/2017 GEM FOSTER MD Ot 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 06/20/2017 GEM FOSTER MD Ot L97.212 NON-PRESSURE CHRONIC ULCER OF RIGHT CALF 06/20/2017 GEM FOSTER MD Ot 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 06/22/2017 GEM FOSTER MD Ot I50.22 CHRONIC SYSTOLIC (CONGESTIVE) HEART FAIL 06/22/2017 GEM FOSTER MD Ot 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 06/22/2017 GEM FOSTER MD Ot 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 06/22/2017 GEM FOSTER MD Ot 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 06/22/2017 GEM FOSTER MD Ot L97.212 NON-PRESSURE CHRONIC ULCER OF RIGHT CALF 06/22/2017 GEM FOSTER MD Ot 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 06/22/2017 GEM FOSTER MD Ot I50.22 CHRONIC SYSTOLIC (CONGESTIVE) HEART FAIL 06/22/2017 GEM FOSTER MD Ot 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 06/22/2017 GEM FOSTER MD Ot 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 06/22/2017 GEM FOSTER MD Ot 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 06/22/2017 GEM FOSTER MD Ot L97.212 NON-PRESSURE CHRONIC ULCER OF RIGHT CALF 06/22/2017 GEM FOSTER MD Ot 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 06/28/2017 GEM FOSTER MD Ot I50.22 CHRONIC SYSTOLIC (CONGESTIVE) HEART FAIL 06/28/2017 GEM FOSTER MD Ot 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 06/28/2017 GEM FOSTER MD Ot 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 06/28/2017 GEM FOSTER MD Ot 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 06/28/2017 GEM FOSTER MD Ot L97.212 NON-PRESSURE CHRONIC ULCER OF RIGHT CALF 06/28/2017 GEM FOSTER MD Ot 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 06/29/2017 GEM FOSTER MD Ot I50.22 CHRONIC SYSTOLIC (CONGESTIVE) HEART FAIL 06/29/2017 GEM FOSTER MD Ot 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 06/29/2017 GEM FOSTER MD Ot 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 06/29/2017 GEM FOSTER MD Ot 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 06/29/2017 GEM FOSTER MD Ot L97.212 NON-PRESSURE CHRONIC ULCER OF RIGHT CALF 06/29/2017 GEM FOSTER MD Ot 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 07/04/2017 GEM FOSTER MD Ot I50.22 CHRONIC SYSTOLIC (CONGESTIVE) HEART FAIL 07/04/2017 GEM FOSTER MD Ot 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 07/04/2017 GEM FOSTER MD Ot 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 07/04/2017 GEM FOSTER MD Ot 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 07/04/2017 GEM FOSTER MD Ot L97.212 NON-PRESSURE CHRONIC ULCER OF RIGHT CALF 07/04/2017 GEM FOSTER MD Ot 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 07/05/2017 GEM FOSTER MD Ot I50.22 CHRONIC SYSTOLIC (CONGESTIVE) HEART FAIL 07/05/2017 GEM FOSTER MD Ot I70.202 UNS ATHSCL [place] ARTERIES OF EXTREMITI 07/05/2017 GEM FOSTER MD Ot 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 07/05/2017 GEM FOSTER MD Ot 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 07/05/2017 GEM FOSTER MD Ot L97.212 NON-PRESSURE CHRONIC ULCER OF RIGHT CALF 07/05/2017 GEM FOSTER MD Ot 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 07/12/2017 GEM FOSTER MD Ot I50.22 CHRONIC SYSTOLIC (CONGESTIVE) HEART FAIL 07/12/2017 GME FOSTER MD Ot I70.202 [facility]CL [place] [facility] 07/12/2017 GEM FOSTER MD Ot 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 07/12/2017 GEM FOSTER MD Ot 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 07/12/2017 GEM FOSTER MD Ot L97.212 NON-PRESSURE CHRONIC ULCER OF RIGHT CALF 07/12/2017 GEM FOSTER MD Ot 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 07/13/2017 GEM FOSTER MD Ot I50.22 CHRONIC SYSTOLIC (CONGESTIVE) HEART FAIL 07/13/2017 GEM FOSTER MD Ot I70.202 [facility]CL [place] [facility] 07/13/2017 GEM FOSTER MD Ot 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 07/13/2017 GEM FOSTER MD Ot 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 07/13/2017 GEM FOSTER MD Ot L97.212 NON-PRESSURE CHRONIC ULCER OF RIGHT CALF 07/13/2017 GEM FOSTER MD Ot 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 07/16/2017 GEM FOSTER MD Ot I50.22 CHRONIC SYSTOLIC (CONGESTIVE) HEART FAIL 07/16/2017 GEM FOSTER MD Ot 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 07/16/2017 GEM FOSTER MD Ot 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 07/16/2017 GEM FOSTRE MD Ot 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 07/16/2017 GEM FOSTER MD Ot L97.212 NON-PRESSURE CHRONIC ULCER OF RIGHT CALF 07/16/2017 GEM FOSTER MD Ot 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 07/20/2017 GEM FOSTER MD Ot I50.22 CHRONIC SYSTOLIC (CONGESTIVE) HEART FAIL 07/20/2017 GEM FOSTER MD Ot 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 07/20/2017 GEM FOSTER MD Ot 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 07/20/2017 GEM FOSTER MD Ot 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 07/20/2017 GEM FOSTER MD Ot L97.212 NON-PRESSURE CHRONIC ULCER OF RIGHT CALF 07/20/2017 GEM FOSTER MD Ot 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 07/20/2017 GEM FOSTER MD Ot I50.22 CHRONIC SYSTOLIC (CONGESTIVE) HEART FAIL 07/20/2017 GEM FOSTER MD Ot 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 07/20/2017 GEM FOSTER MD Ot 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 07/20/2017 GEM FOSTER MD Ot 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 07/20/2017 GEM FOSTER MD Ot L97.212 NON-PRESSURE CHRONIC ULCER OF RIGHT CALF 07/20/2017 GEM FOSTER MD Ot 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 07/25/2017 GEM FOSTER MD Ot I50.22 CHRONIC SYSTOLIC (CONGESTIVE) HEART FAIL 07/25/2017 GEM FOSTER MD Ot 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 07/25/2017 GEM FOSTER MD Ot 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 07/25/2017 GEM FOSTER MD Ot 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 07/25/2017 GEM FOSTER MD Ot L97.212 NON-PRESSURE CHRONIC ULCER OF RIGHT CALF 07/25/2017 GEM FOSTER MD Ot 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 07/30/2017 GEM FOSTER MD Ot I50.22 CHRONIC SYSTOLIC (CONGESTIVE) HEART FAIL 07/30/2017 GEM FOSTER MD Ot I70.202 UNS ATHSCL [place] ARTERIES OF [place]REM[place] 07/30/2017 GEM FOSTER MD Ot 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 07/30/2017 GEM FOSTER MD Ot 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 07/30/2017 GEM FOSTER MD Ot L97.212 NON-PRESSURE CHRONIC ULCER OF RIGHT CALF 07/30/2017 GEM FOSTER MD Ot 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 07/30/2017 GEM FOSTER MD Ot I50.22 CHRONIC SYSTOLIC (CONGESTIVE) HEART FAIL 07/30/2017 GEM FOSTER MD Ot I70.202 [facility] ATHSCL [place] ARTERIES OF EXTREMITI 07/30/2017 GEM FOSTER MD Ot 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 07/30/2017 GEM FOSTER MD Ot 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 07/30/2017 GEM FOSTER MD Ot L97.212 NON-PRESSURE CHRONIC ULCER OF RIGHT CALF 07/30/2017 GEM FOSTER MD Ot 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 08/02/2017 GEM FOSTER MD Ot I50.22 CHRONIC SYSTOLIC (CONGESTIVE) HEART FAIL 08/02/2017 GEM FOSTER MD Ot I70.202 [facility] ATHSCL [place] ARTERIES OF EXTREMITI 08/02/2017 GEM FOSTER MD Ot 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 08/02/2017 GEM FOSTER MD Ot 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 08/02/2017 GEM FOSTER MD Ot L97.212 NON-PRESSURE CHRONIC ULCER OF RIGHT CALF 08/02/2017 GEM FOSTER MD Ot 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 08/03/2017 GEM FOSTER MD Ot I50.22 CHRONIC SYSTOLIC (CONGESTIVE) HEART FAIL 08/03/2017 GEM FOSTER MD Ot 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 08/03/2017 GEM FOSTER MD Ot 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 08/03/2017 GEM FOSTER MD Ot 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 08/03/2017 GEM FOSTER MD Ot L97.212 NON-PRESSURE CHRONIC ULCER OF RIGHT CALF 08/03/2017 GEM FOSTER MD Ot 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 08/07/2017 JOSE CIFUENTES DOI Ot D50.9 IRON DEFICIENCY ANEMIA, UNSPECIFIED 08/07/2017 JOSE CIFUENTES DOI Ot D63.8 ANEMIA IN OTHER CHRONIC DISEASES CLASSIF 08/07/2017 JOSE CIFUENTES DOI Ot E03.9 HYPOTHYROIDISM, UNSPECIFIED 08/07/2017 ESAU COSTELLO AURORA Ot E78.5 HYPERLIPIDEMIA, UNSPECIFIED 08/07/2017 ESAU COSTELLO [place]A Ot F03.90 UNSPECIFIED DEMENTIA WITHOUT BEHAVIORAL 08/07/2017 ESAU COSTELLO AUR[place]A Ot 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 08/07/2017 ESAU COSTELLO AURORA Ot I13.0 HYP HRT CHR KDNY DIS W HRT FAIL AND ST 08/07/2017 JOSE CIFUENTES DOI Ot I25.10 ATHSCL HEART DISEASE OF [place] CORONARY 08/07/2017 ESAU COSTELLO AURORA Ot I25.5 ISCHEMIC CARDIOMYOPATHY 08/07/2017 ESAU COSTELLO [place]UR[place]A Ot I27.20 PULMONARY HYPERTENSION, UNSPECIFIED 08/07/2017 ESAU COSTLELO AURORA Ot I50.23 ACUTE ON CHRONIC SYSTOLIC (CONGESTIVE) H 08/07/2017 ESAU COSTELLO AUR[place]A Ot I65.29 OCCLUSION AND STENOSIS OF UNSPECIFIED CA 08/07/2017 ESAU COSTELLO AUR[place]A Ot I70.0 ATHEROSCLEROSIS OF AORTA 08/07/2017 ESAU COSTELLO AUR[place]A Ot I70.235 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 UL 08/07/2017 ESAU COSTELLO [place]UR[place]A Ot I71.4 ABDOMINAL AORTIC ANEURYSM, WITHOUT RUPTU 08/07/2017 AUR[place]A CIFUENTES DO Ot L97.519 NON-PRS CHRONIC ULCER OTH PRT RIGHT FOOT 08/07/2017 AUR[place]A CIFUENTES DO Ot M19.91 PRIMARY OSTEOARTHRITIS, UNSPECIFIED SITE 08/07/2017 ESAU COSTELLO AUR[place]A Ot N18.9 CHRONIC KIDNEY DISEASE, UNSPECIFIED 08/07/2017 JOSE CIFUENTES DOI Ot R11.0 NAUSEA 08/07/2017 AUR[place]A CIFUENTES DO Ot R41.0 DISORIENTATION, UNSPECIFIED 08/07/2017 JOSE CIFUENTES DOI Ot 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 08/07/2017 JOSE CIFUENTES DOI Ot Z87.01 PERSONAL HISTORY OF PNEUMONIA (RECURRENT 08/07/2017 JOSE CIFUENTES DOI Ot Z95.2 PRESENCE OF PROSTHETIC HEART VALVE 08/07/2017 JOSE CIFUENTES DOI Ot Z95.810 PRESENCE OF AUTOMATIC (IMPLANTABLE) CARD 08/07/2017 AUR[place]A CIFUENTES DO Ot Z98.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 08/08/2017 AURORA CIFUENTES DO Ot D50.9 IRON DEFICIENCY ANEMIA, UNSPECIFIED 08/08/2017 ESAU COSTELLO AUR[place]A Ot D63.8 ANEMIA IN OTHER CHRONIC DISEASES CLASSIF 08/08/2017 AUR[place]A CIFUENTES DO Ot E03.9 HYPOTHYROIDISM, UNSPECIFIED 08/08/2017 JOSE CIFUENTES DOI Ot E78.5 HYPERLIPIDEMIA, UNSPECIFIED 08/08/2017 ESAU COSTELLO AUR[place]A Ot F03.90 UNSPECIFIED DEMENTIA WITHOUT BEHAVIORAL 08/08/2017 JOSE CIFUENTES DOI Ot 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 08/08/2017 AURORA CIFUENTES DO Ot I13.0 HYP HRT CHR KDNY DIS W HRT FAIL AND ST 08/08/2017 ESAU COSTELLO AURORA Ot I25.10 ATHSCL HEART DISEASE OF [place] CORONARY 08/08/2017 JOSE CIFUENTES DOI Ot I25.5 ISCHEMIC CARDIOMYOPATHY 08/08/2017 ESAU COSTELLO AUR[place]A Ot I27.20 PULMONARY HYPERTENSION, UNSPECIFIED 08/08/2017 ESAU COSTELLO AUR[place]A Ot I50.23 ACUTE ON CHRONIC SYSTOLIC (CONGESTIVE) H 08/08/2017 JOSE CIFUENTES DOI Ot I65.29 OCCLUSION AND STENOSIS OF UNSPECIFIED CA 08/08/2017 ESAU COSTELLO AUR[place]A Ot I70.0 ATHEROSCLEROSIS OF AORTA 08/08/2017 AURORA CIFUENTES DO Ot I70.235 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 UL 08/08/2017 AURORA CIFUENTES DO Ot I71.4 ABDOMINAL AORTIC ANEURYSM, WITHOUT RUPTU 08/08/2017 AURORA CIFUENTES DO Ot L97.519 NON-PRS CHRONIC ULCER OTH PRT RIGHT FOOT 08/08/2017 AURORA CIFUENTES DO Ot M19.91 PRIMARY OSTEOARTHRITIS, UNSPECIFIED SITE 08/08/2017 AURORA CIFUENTES DO Ot N18.9 CHRONIC KIDNEY DISEASE, UNSPECIFIED 08/08/2017 AURORA CIFUENTES DO Ot R11.0 NAUSEA 08/08/2017 AURORA CIFUENTES DO Ot R41.0 DISORIENTATION, UNSPECIFIED 08/08/2017 AURORA CIFUENTES DO Ot Z79.01 HALFWAY (CURRENT) USE OF ANTICOAGULANT 08/08/2017 AURORA CIFUENTES DO Ot Z87.01 PERSONAL HISTORY OF PNEUMONIA (RECURRENT 08/08/2017 AURORA CIFUENTES DO Ot Z95.2 PRESENCE OF PROSTHETIC HEART VALVE 08/08/2017 AURORA CIFUENTES DO Ot Z95.810 PRESENCE OF AUTOMATIC (IMPLANTABLE) CARD 08/08/2017 AUR[place]A CIFUENTES DO Ot Z98.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 08/08/2017 AURORA CIFUENTES DO Ot B96.20 UNSP ESCHERICHIA COLI THE CAUSE OF DI 08/08/2017 ESAU COSTELLO AUR[place]A Ot D50.9 IRON DEFICIENCY ANEMIA, UNSPECIFIED 08/08/2017 JOSE CIFUENTES DOI Ot D63.8 ANEMIA IN OTHER CHRONIC DISEASES CLASSIF 08/08/2017 AUR[place]A CIFUENTES DO Ot E03.9 HYPOTHYROIDISM, UNSPECIFIED 08/08/2017 ESAU COSTELLO AUR[place]A Ot E78.5 HYPERLIPIDEMIA, UNSPECIFIED 08/08/2017 ESAU COSTELLO AUR[place]A Ot F03.90 UNSPECIFIED DEMENTIA WITHOUT BEHAVIORAL 08/08/2017 AURORA CIFUENTES DO Ot 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 08/08/2017 AURORA CIFUENTES DO Ot I13.0 HYP HRT CHR KD[place] DIS W HRT FAIL AND ST 08/08/2017 ESAU COSTELLO AURORA Ot I25.10 ATHSCL HEART DISEASE OF [place] CORONARY 08/08/2017 AURORA CIFUENTES DO Ot I25.5 ISCHEMIC CARDIOMYOPATHY 08/08/2017 JOSE CIFUENTES DOI Ot I27.20 PULMONARY HYPERTENSION, UNSPECIFIED 08/08/2017 ESAU COSTELLO [place]UR[place]A Ot I50.23 ACUTE ON CHRONIC SYSTOLIC (CONGESTIVE) H 08/08/2017 JOSE CIFUENTES DOI Ot I65.29 OCCLUSION AND STENOSIS OF UNSPECIFIED CA 08/08/2017 ESAU COSTELLO AUR[place]A Ot I70.0 ATHEROSCLEROSIS OF AORTA 08/08/2017 JOSE CIFUENTES DOI Ot I70.235 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 UL 08/08/2017 ESAU COSTELLO [place]UR[place]A Ot I71.4 ABDOMINAL AORTIC ANEURYSM, WITHOUT RUPTU 08/08/2017 ESAU COSTELLO AUR[place]A Ot I87.2 VENOUS INSUFFICIENCY (CHRONIC) (PERIPHER 08/08/2017 JOSE CIFUENTES DOI Ot L97.519 NON-PRS CHRONIC ULCER OTH PRT RIGHT FOOT 08/08/2017 JOSE CIFUENTES DOI Ot M19.91 PRIMARY OSTEOARTHRITIS, UNSPECIFIED SITE 08/08/2017 JOSE CIFUENTES DOI Ot N18.9 CHRONIC KIDNEY DISEASE, UNSPECIFIED 08/08/2017 JOSE CIFUENTES DOI Ot N30.01 ACUTE CYSTITIS WITH HEMATURIA 08/08/2017 ESAU COSTELLO [place]UR[place]A Ot R11.0 NAUSEA 08/08/2017 ESAU COSTELLO [place]UR[place]A Ot R41.0 DISORIENTATION, UNSPECIFIED 08/08/2017 ESAU COSTELLO [place]UR[place] Ot Z79.01 HALFWAY (CURRENT) USE OF ANTICOAGULANT 08/08/2017 ESAU COSTELLO [place]UR[place] Ot Z87.01 PERSONAL HISTORY OF PNEUMONIA (RECURRENT 08/08/2017 JOSE CIFUENTES DOI Ot Z95.2 PRESENCE OF PROSTHETIC HEART VALVE 08/08/2017 AURORA CIFUENTES DO Ot Z95.810 PRESENCE OF AUTOMATIC (IMPLANTABLE) CARD 08/08/2017 JOSE CIFUENTES DOI Ot Z98.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 08/08/2017 GEM FOSTER MD Ot I50.22 CHRONIC SYSTOLIC (CONGESTIVE) HEART FAIL 08/08/2017 GEM FOSTER MD Ot 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 08/08/2017 GEM FOSTER MD Ot 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 08/08/2017 GME FOSTER MD Ot 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 08/08/2017 GEM FOSTER MD, Ot L97.212 NON-PRESSURE CHRONIC ULCER OF RIGHT CALF 08/08/2017 GEM FOSTER MD, Ot 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 08/13/2017 GEM FOSTER MD Ot I50.22 CHRONIC SYSTOLIC (CONGESTIVE) HEART FAIL 08/13/2017 GEM FOSTER MD Ot 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 08/13/2017 GEM FOSTER MD Ot 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 08/13/2017 GEM FOSTER MD Ot 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 08/13/2017 GEM FOSTER MD, Ot L97.212 NON-PRESSURE CHRONIC ULCER OF RIGHT CALF 08/13/2017 GEM FOSTER MD, Ot 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 08/13/2017 VENANCIO ARREAGA MD, Ot B96.20 UNSP ESCHERICHIA COLI THE CAUSE OF DI 08/13/2017 VENANCIO ARREAGA MD, Ot D50.9 IRON DEFICIENCY ANEMIA, UNSPECIFIED 08/13/2017 VENANCIO ARREAGA MD, Ot D63.8 ANEMIA IN OTHER CHRONIC DISEASES CLASSIF 08/13/2017 VENANCIO ARREAGA MD, Ot E03.9 HYPOTHYROIDISM, UNSPECIFIED 08/13/2017 VENANCIO ARREAGA MD, Ot E78.5 HYPERLIPIDEMIA, UNSPECIFIED 08/13/2017 VENANCIO ARREAGA MD, Ot F03.90 UNSPECIFIED DEMENTIA WITHOUT BEHAVIORAL 08/13/2017 VENANCIO ARREAGA MD, Ot 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 08/13/2017 VENANCIO ARREAGA MD, Ot I13.0 HYP HRT CHR KDNY DIS W HRT FAIL AND ST 08/13/2017 VENANCIO ARREAGA MD, Ot I25.10 ATHSCL HEART DISEASE OF [place] CORONARY 08/13/2017 VENANCIO ARREAGA MD, Ot I25.5 ISCHEMIC CARDIOMYOPATHY 08/13/2017 VENANCIO ARREAGA MD, Ot I27.20 PULMONARY HYPERTENSION, UNSPECIFIED 08/13/2017 VENANCIO ARREAGA MD, Ot I50.23 ACUTE ON CHRONIC SYSTOLIC (CONGESTIVE) H 08/13/2017 VENANCIO ARREAGA MD, Ot I65.29 OCCLUSION AND STENOSIS OF UNSPECIFIED CA 08/13/2017 VENANCIO ARREAGA MD, Ot I70.0 ATHEROSCLEROSIS OF AORTA 08/13/2017 VENANCIO ARREAGA MD Ot I70.235 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 UL 08/13/2017 VENANCIO ARREAGA MD, Ot I71.4 ABDOMINAL AORTIC ANEURYSM, WITHOUT RUPTU 08/13/2017 VENANCIO ARREAGA MD, Ot I87.2 VENOUS INSUFFICIENCY (CHRONIC) (PERIPHER 08/13/2017 VENANCIO ARREAGA MD, Ot L97.519 NON-PRS CHRONIC ULCER OTH PRT RIGHT FOOT 08/13/2017 VENANCIO ARREAGA MD, Ot M19.91 PRIMARY OSTEOARTHRITIS, UNSPECIFIED SITE 08/13/2017 VENANCIO ARREAGA MD, Ot N18.9 CHRONIC KIDNEY DISEASE, UNSPECIFIED 08/13/2017 VENANCIO ARREAGA MD, Ot N30.01 ACUTE CYSTITIS WITH HEMATURIA 08/13/2017 VENANCIO ARREAGA MD, Ot R10.11 RIGHT UPPER QUADRANT PAIN 08/13/2017 VENANCIO ARREAGA MD, Ot 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 08/13/2017 VENANCIO ARREAGA MD, Ot Z95.2 PRESENCE OF PROSTHETIC HEART VALVE 08/13/2017 VENANCIO ARREAGA MD, Ot Z95.810 PRESENCE OF AUTOMATIC (IMPLANTABLE) CARD 08/13/2017 VENANCIO ARREAGA MD, Ot Z98.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 08/16/2017 ARCENIO NIETO MD Ot I50.22 CHRONIC SYSTOLIC (CONGESTIVE) HEART FAIL 08/16/2017 ARCENIO NIETO MD Ot 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 08/16/2017 ARCENIO NIETO MD Ot 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 08/16/2017 ARCENIO NIETO MD Ot 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 08/16/2017 ARCENIO NIETO MD Ot L97.212 NON-PRESSURE CHRONIC ULCER OF RIGHT CALF 08/16/2017 ARCENIO NIETO MD Ot 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 08/16/2017 GEM FOSTER MD Ot I50.22 CHRONIC SYSTOLIC (CONGESTIVE) HEART FAIL 08/16/2017 GEM FOSTER MD Ot 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 08/16/2017 GEM FOSTER MD Ot 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 08/16/2017 GEM FOSTER MD Ot 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 08/16/2017 GEM FOSTER MD Ot L97.212 NON-PRESSURE CHRONIC ULCER OF RIGHT CALF 08/16/2017 GEM FOSTER MD Ot 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 08/19/2017 YESENIA QUIROS VOUCHER CLERK Ot I50.22 CHRONIC SYSTOLIC (CONGESTIVE) HEART FAIL 08/19/2017 YESENIA QUIROS VOUCHER CLERK Ot I70.202 UNS ATHSCL [place] ARTERIES OF EXTREMITI 08/19/2017 YESENIA QUIROS VOUCHER CLERK Ot 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 08/19/2017 YESENIA QUIROS VOUCHER CLERK Ot 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 08/19/2017 YESENIA QUIROS VOUCHER CLERK Ot L97.212 NON-PRESSURE CHRONIC ULCER OF RIGHT CALF 08/19/2017 YESENIA QUIROS VOUCHER CLERK Ot 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 08/28/2017 GEM FOSTER MD Ot I50.22 CHRONIC SYSTOLIC (CONGESTIVE) HEART FAIL 08/28/2017 GEM FOSTER MD Ot I70.202 [facility] [place] [facility] 08/28/2017 GEM FOSTER MD Ot 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 08/28/2017 GEM FOSTER MD Ot 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 08/28/2017 GEM FOSTER MD Ot L97.212 NON-PRESSURE CHRONIC ULCER OF RIGHT CALF 08/28/2017 GEM FOSTER MD Ot 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 08/30/2017 ARCENIO NIETO MD Ot I50.22 CHRONIC SYSTOLIC (CONGESTIVE) HEART FAIL 08/30/2017 ARCENIO NIETO MD Ot I70.202 [facility] ATHSCL NEZ PERCE ARTERIES OF EXTREMITI 08/30/2017 ARCENIO NIETO MD Ot 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 08/30/2017 ARCENIO NIETO MD Ot 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 08/30/2017 ARCENIO NIETO MD Ot L97.212 NON-PRESSURE CHRONIC ULCER OF RIGHT CALF 08/30/2017 ARCENIO NIETO MD Ot 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 09/05/2017 GEM FOSTER MD Ot I50.22 CHRONIC SYSTOLIC (CONGESTIVE) HEART FAIL 09/05/2017 GEM FOSTER MD Ot 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 09/05/2017 GEM FOSTER MD Ot 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 09/05/2017 GEM FOSTER MD Ot 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 09/05/2017 GEM FOSTER MD Ot L97.212 NON-PRESSURE CHRONIC ULCER OF RIGHT CALF 09/05/2017 GEM FOSTER MD Ot 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 09/06/2017 YESENIA QUIROS APRN Ot I50.22 CHRONIC SYSTOLIC (CONGESTIVE) HEART FAIL 09/06/2017 YESENIA QUIROS VOUCHER CLERK Ot 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 09/06/2017 YESENIA QUIROS APRN Ot 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 09/06/2017 YESENIA QUIROS APRN Ot 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 09/06/2017 YESENIA QUIROS APRN Ot L97.212 NON-PRESSURE CHRONIC ULCER OF RIGHT CALF 09/06/2017 YESENIA QUIROS VOUCHER CLERK Ot 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 09/07/2017 ARCENIO NIETO MD Ot I50.22 CHRONIC SYSTOLIC (CONGESTIVE) HEART FAIL 09/07/2017 ARCENIO NIETO MD Ot 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 09/07/2017 ARCENIO NIETO MD Ot 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 09/07/2017 ARCENIO NIETO MD Ot 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 09/07/2017 ARCENIO NIETO MD Ot L97.212 NON-PRESSURE CHRONIC ULCER OF RIGHT CALF 09/07/2017 ARCENIO NIETO MD Ot 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 09/07/2017 GEM FOSTER MD Ot I50.22 CHRONIC SYSTOLIC (CONGESTIVE) HEART FAIL 09/07/2017 GEM FOSTER MD Ot 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 09/07/2017 GEM FOSTER MD Ot 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 09/07/2017 GEM FOSTER MD Ot 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 09/07/2017 GEM FOSTER MD Ot L97.212 NON-PRESSURE CHRONIC ULCER OF RIGHT CALF 09/07/2017 GEM FOSTER MD Ot 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 09/13/2017 YESENIA QUIROS VOUCHER CLERK Ot I50.22 CHRONIC SYSTOLIC (CONGESTIVE) HEART FAIL 09/13/2017 YESENIA QUIROS VOUCHER CLERK Ot 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 09/13/2017 YESENIA QUIROS VOUCHER CLERK Ot 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 09/13/2017 YESENIA QUIROS VOUCHER CLERK Ot 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 09/13/2017 YESENIA QUIROS VOUCHER CLERK Ot L97.212 NON-PRESSURE CHRONIC ULCER OF RIGHT CALF 09/13/2017 YESENIA QUIROS VOUCHER CLERK Ot 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 09/18/2017 GEM FOSTER MD Ot I50.22 CHRONIC SYSTOLIC (CONGESTIVE) HEART FAIL 09/18/2017 GEM FOSTER MD Ot 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 09/18/2017 GEM FOSTER MD Ot 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 09/18/2017 GEM FOSTER MD Ot 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 09/18/2017 GEM FOSTER MD Ot L97.212 NON-PRESSURE CHRONIC ULCER OF RIGHT CALF 09/18/2017 GEM FOSTER MD Ot 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 09/20/2017 GEM FOSTER MD Ot I50.22 CHRONIC SYSTOLIC (CONGESTIVE) HEART FAIL 09/20/2017 GEM FOSTER MD Ot 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 09/20/2017 GEM FOSTER MD Ot 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 09/20/2017 GEM FOSTER MD Ot 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 09/20/2017 GEM FOSTER MD Ot L97.212 NON-PRESSURE CHRONIC ULCER OF RIGHT CALF 09/20/2017 GEM FOSTER MD Ot 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 09/24/2017 GEM FOSTER MD Ot I50.22 CHRONIC SYSTOLIC (CONGESTIVE) HEART FAIL 09/24/2017 GEM FOSTER MD Ot 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 09/24/2017 GEM FOSTER MD Ot 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 09/24/2017 GEM FOSTER MD Ot 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 09/24/2017 GEM FOSTER MD Ot L97.212 NON-PRESSURE CHRONIC ULCER OF RIGHT CALF 09/24/2017 GEM FOSTER MD Ot 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 09/26/2017 GEM FOSTER MD Ot I50.22 CHRONIC SYSTOLIC (CONGESTIVE) HEART FAIL 09/26/2017 GEM FOSTER MD Ot 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 09/26/2017 GEM FOSTER MD Ot 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 09/26/2017 GEM FOSTER MD Ot 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 09/26/2017 GEM FOSTER MD Ot L97.212 NON-PRESSURE CHRONIC ULCER OF RIGHT CALF 09/26/2017 GEM FOSTER MD Ot 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 09/26/2017 YESENIA QUIROS APRN Ot I50.22 CHRONIC SYSTOLIC (CONGESTIVE) HEART FAIL 09/26/2017 YESENIA QUIROS APRN Ot 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 09/26/2017 YESENIA QUIROS APRN Ot 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 09/26/2017 YESENIA QUIROS APRN Ot 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 09/26/2017 YESENIA QUIROS APRN Ot S81.801A UNSPECIFIED OPEN WOUND, RIGHT LOWER LEG, 10/03/2017 YESENIA QUIROS R VOUCHER CLERK Ot I50.22 CHRONIC SYSTOLIC (CONGESTIVE) HEART FAIL 10/03/2017 YESENIA QUIROS VOUCHER CLERK Ot 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 10/03/2017 YESENIA QUIROS R VOUCHER CLERK Ot 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 10/03/2017 YESENIA QUIROS R VOUCHER CLERK Ot 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 10/03/2017 YESENIA QUIROS R VOUCHER CLERK Ot S81.801A UNSPECIFIED OPEN WOUND, RIGHT LOWER LEG, 10/12/2017 YESENIA QUIROS VOUCHER CLERK Ot I50.22 CHRONIC SYSTOLIC (CONGESTIVE) HEART FAIL 10/12/2017 YESENIA QUIROS VOUCHER CLERK Ot 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 10/12/2017 YESENIA QUIROS R VOUCHER CLERK Ot 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 10/12/2017 YESENIA QUIROS VOUCHER CLERK Ot 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 10/12/2017 YESENIA QUIROS R VOUCHER CLERK Ot S81.801A UNSPECIFIED OPEN WOUND, RIGHT LOWER LEG, 10/19/2017 YESENIA QUIROS R VOUCHER CLERK Ot I50.22 CHRONIC SYSTOLIC (CONGESTIVE) HEART FAIL 10/19/2017 YESENIA QUIROS R VOUCHER CLERK Ot 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 10/19/2017 YESENIA QUIROS VOUCHER CLERK Ot 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 10/19/2017 YESENIA QUIROS VOUCHER CLERK Ot 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 10/19/2017 YESENIA QUIROS R VOUCHER CLERK Ot S81.801A UNSPECIFIED OPEN WOUND, RIGHT LOWER LEG, 10/19/2017 YESENIA QUIROS VOUCHER CLERK Ot I50.22 CHRONIC SYSTOLIC (CONGESTIVE) HEART FAIL 10/19/2017 YESENIA QUIROS R VOUCHER CLERK Ot 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 10/19/2017 YESENIA QUIROS R VOUCHER CLERK Ot 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 10/19/2017 YESENIA QUIROS VOUCHER CLERK Ot 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 10/19/2017 YESENIA QUIRSO VOUCHER CLERK Ot S81.801A UNSPECIFIED OPEN WOUND, RIGHT LOWER LEG, Procedures Code Description Performed By Performed On 37.21 RT HEART CARDIAC CATH 05/11/2007 88.42 CONTRAST AORTOGRAM 05/11/2007 88.53 LT HEART ANGIOCARDIOGRAM 05/11/2007 51.23 LAPAROSCOPIC CHOLECYSTECTOMY 06/29/2011 87.53 INTRAOPER CHOLANGIOGRAM 06/29/2011 53.29 UNIL FEMOR CHRISTOPHE REP NEC 03/25/2013 Results Test Result Range Bacteria identification in isolate by anaerobe culture - 04/19/17 15:26 Bacteria identification in isolate by anaerobe culture NOANA NRG Gram stain microscopy - 04/19/17 15:26 GRAM STAIN RESULT FEW GRAM POSITIVE COCCI NRG Bacteria identification in wound by culture - 04/19/17 15:26 Bacteria identification in wound by culture [id number] NRG FREE TEXT EXTERNAL SENSITIVITY REPORTED 04/22/17 10:15 NRG QUANTITY OF GROWTH Scant Growth NRG Bacterial susceptibility panel - 04/19/17 15:26 Oxacillin susceptibility test by minimum inhibitory concentration < = NRG Gentamicin susceptibility test by minimum inhibitory concentration < = NRG Clindamycin susceptibility test by minimum inhibitory concentration <= NRG Erythromycin susceptibility test by minimum inhibitory concentration <= NRG Trimethoprim/sulfamethoxazole susceptibility test by minimum inhibitoryconcentration <= NRG Vancomycin susceptibility test by minimum inhibitory concentration < = NRG Levofloxacin susceptibility test by minimum inhibitory concentration 0.25 NRG Rifampin susceptibility test by minimum inhibitory concentration <= NRG Tetracycline susceptibility test by minimum inhibitory concentration <= NRG Bacteria identification in isolate by anaerobe culture - 05/10/17 11:44 Bacteria identification in isolate by anaerobe culture NOANA NRG Gram stain microscopy - 05/10/17 11:44 GRAM STAIN RESULT NO WBC'S OR BACTERIA OBSERVED NRG Bacteria identification in wound by culture - 05/10/17 11:44 Bacteria identification in wound by culture [id number] NRG FREE TEXT EXTERNAL SENSITIVITY REPORTED 05/13 09:35 NRG QUANTITY OF GROWTH Moderate Growth NRG MRSA AGAR Screening test for MRSA is NEGATIVE (Final to follow) NR Bacterial susceptibility panel - 05/10/17 11:44 Oxacillin susceptibility test by minimum inhibitory concentration 2 NRG Gentamicin susceptibility test by minimum inhibitory concentration > = NRG Clindamycin susceptibility test by minimum inhibitory concentration >= NRG Erythromycin susceptibility test by minimum inhibitory concentration >= NRG Trimethoprim/sulfamethoxazole susceptibility test by minimum inhibitoryconcentration >= NRG Vancomycin susceptibility test by minimum inhibitory concentration < = NRG Levofloxacin susceptibility test by minimum inhibitory concentration >= NRG Rifampin susceptibility test by minimum inhibitory concentration <= NRG Tetracycline susceptibility test by minimum inhibitory concentration >= NRG Ciprofloxacin susceptibility test by minimum inhibitory concentration R NRG Bacterial susceptibility panel - 05/10/17 11:44 Gentamicin susceptibility test by minimum inhibitory concentration < = NRG Trimethoprim/sulfamethoxazole susceptibility test by minimum inhibitoryconcentration <= NRG Tobramycin susceptibility test by minimum inhibitory concentration < = NRG Cefazolin susceptibility test by minimum inhibitory concentration > = NRG Ceftriaxone susceptibility test by minimum inhibitory concentration <= NRG Ciprofloxacin susceptibility test by minimum inhibitory concentration <= NRG Meropenem susceptibility test by minimum inhibitory concentration < = NRG Aztreonam susceptibility test by minimum inhibitory concentration < = NRG Fungus culture - 05/10/17 11:44 FUNGUS REPORT NO FUNGUS GROWTH OBSERVED NR Complete blood count (CBC) with automated white blood cell (WBC) differential - 05/10/17 12:54 Blood leukocytes automated count (number/volume) 5.5 10*3/uL 4.3-11.0 Blood erythrocytes automated count (number/volume) 3.53 10*6/uL 4.35-5.85 Venous blood hemoglobin measurement (mass/volume) 10.3 g/dL 11.5-16.0 Blood hematocrit (volume fraction) 34 % 35-52 Automated erythrocyte mean corpuscular volume 96 [foz_us] 80-99 Automated erythrocyte mean corpuscular hemoglobin (mass per erythrocyte) 29 pg 25-34 Automated erythrocyte mean corpuscular hemoglobin concentration measurement ( mass/volume) 30 g/dL 32-36 Automated erythrocyte distribution width ratio 15.9 % 10.0-14.5 Automated blood platelet count (count/volume) 178 10*3/uL 130-400 Automated blood platelet mean volume measurement 10.2 [foz_us] 7.4-10.4 Automated blood neutrophils/100 leukocytes 64 % 42-75 Automated blood lymphocytes/100 leukocytes 23 % 12-44 Blood monocytes/100 leukocytes 8 % 0-12 Automated blood eosinophils/100 leukocytes 4 % 0-10 Automated blood basophils/100 leukocytes 1 % 0-10 Blood neutrophils automated count (number/volume) 3.5 10*3 1.8-7.8 Blood lymphocytes automated count (number/volume) 1.3 10*3 1.0-4.0 Blood monocytes automated count (number/volume) 0.5 10*3 0.0-1.0 Automated eosinophil count 0.2 10*3/uL 0.0-0.3 Automated blood basophil count (count/volume) 0.0 10*3/uL 0.0-0.1 Erythrocyte sedimentation rate by westergren method - 05/10/17 12:54 Erythrocyte sedimentation rate by westergren method 18 mm 0-30 Automated blood complete blood count (hemogram) panel - 05/31/17 13:30 Blood leukocytes automated count (number/volume) 6.7 10*3/uL 4.3-11.0 Blood erythrocytes automated count (number/volume) 3.66 10*6/uL 4.35-5.85 Venous blood hemoglobin measurement (mass/volume) 10.8 g/dL 11.5-16.0 Blood hematocrit (volume fraction) 35 % 35-52 Automated erythrocyte mean corpuscular volume 97 [foz_us] 80-99 Automated erythrocyte mean corpuscular hemoglobin (mass per erythrocyte) 30 pg 25-34 Automated erythrocyte mean corpuscular hemoglobin concentration measurement ( mass/volume) 31 g/dL 32-36 Automated erythrocyte distribution width ratio 17.1 % 10.0-14.5 Automated blood platelet count (count/volume) 188 10*3/uL 130-400 Automated blood platelet mean volume measurement 10.7 [foz_us] 7.4-10.4 PT panel in platelet poor plasma by coagulation assay - 05/31/17 13:30 Prothrombin time (PT) in platelet poor plasma by coagulation assay 20.1 s 12.2-14.7 INR in platelet poor plasma or blood by coagulation assay 1.7 0.8-1.4 Activated partial thromboplastin time (aPTT) in platelet poor plasma bycoagulation assay - 05/31/17 13:30 Activated partial thromboplastin time (aPTT) in platelet poor plasma bycoagulation assay 35 s 24-35 Comprehensive metabolic panel - 05/31/17 13:30 Serum or plasma sodium measurement (moles/volume) 137 mmol/L 135-145 Serum or plasma potassium measurement (moles/volume) 5.5 mmol/L 3.6-5.0 Serum or plasma chloride measurement (moles/volume) 103 mmol/L 98-107 Carbon dioxide 23 mmol/L 21-32 Serum or plasma anion gap determination (moles/volume) 11 mmol/L 5-14 Serum or plasma urea nitrogen measurement (mass/volume) 42 mg/dL 7-18 Serum or plasma creatinine measurement (mass/volume) 1.93 mg/dL 0.60-1.30 Serum or plasma urea nitrogen/creatinine mass ratio 22 NRG Serum or plasma creatinine measurement with calculation of estimated glomerular filtration rate 25 NRG Serum or plasma glucose measurement (mass/volume) 82 mg/dL 70-105 Serum or plasma calcium measurement (mass/volume) 9.7 mg/dL 8.5-10.1 Serum or plasma total bilirubin measurement (mass/volume) 0.9 mg/dL 0.1-1.0 Serum or plasma alkaline phosphatase measurement (enzymatic activity/volume) 68 U/L 40-136 Serum or plasma aspartate aminotransferase measurement (enzymatic activity/ volume) 29 U/L 5-34 Serum or plasma alanine aminotransferase measurement (enzymatic activity/volume ) 17 U/L 0-55 Serum or plasma protein measurement (mass/volume) 8.5 g/dL 6.4-8.2 Serum or plasma albumin measurement (mass/volume) 4.2 g/dL 3.2-4.5 Lipid 1996 panel - 05/31/17 13:30 Serum or plasma triglyceride measurement (mass/volume) 74 mg/dL <150 Serum or plasma cholesterol measurement (mass/volume) 135 mg/dL < 200 Serum or plasma cholesterol in HDL measurement (mass/volume) 44 mg/ dL 40-60 Cholesterol in LDL [mass/volume] in serum or plasma by direct assay 81 mg/dL 1-129 Serum or plasma cholesterol in VLDL measurement (mass/volume) 15 mg/ dL 5-40 Complete urinalysis with reflex to culture - 05/31/17 13:30 Urine color determination YELLOW NRG Urine clarity determination CLEAR NRG Urine pH measurement by test strip 6.5 5-9 Specific gravity of urine by test strip 1.010 1.016- 1.022 Urine protein assay by test strip, semi-quantitative 1+ NEGATIVE Urine glucose detection by automated test strip NEGATIVE NEGATIVE Erythrocytes detection in urine sediment by light microscopy 4+ NEGATIVE Urine ketones detection by automated test strip NEGATIVE NEGATIVE Urine nitrite detection by test strip NEGATIVE NEGATIVE Urine total bilirubin detection by test strip NEGATIVE NEGATIVE Urine urobilinogen measurement by automated test strip (mass/volume) NORMAL NORMAL Urine leukocyte esterase detection by dipstick 1+ NEGATIVE Automated urine sediment erythrocyte count by microscopy (number/high power field) [HPF] NRG Automated urine sediment leukocyte count by microscopy (number/high power field ) [HPF] NRG Bacteria detection in urine sediment by light microscopy NEGATIVE NRG Squamous epithelial cells detection in urine sediment by light microscopy 0-2 NRG Crystals detection in urine sediment by light microscopy NONE NRG Casts detection in urine sediment by light microscopy PRESENT NRG Mucus detection in urine sediment by light microscopy SMALL NRG Complete urinalysis with reflex to culture NO NRG Hyaline casts detection in urine sediment by light microscopy 10-25 NRG Renal epithelial cells detection in urine sediment by light microscopy NONE NRG Methicillin resistant Staphylococcus aureus (MRSA) screening culture - 13:30 Methicillin resistant Staphylococcus aureus (MRSA) screening culture NEG NRG Activated partial thromboplastin time (aPTT) in platelet poor plasma bycoagulation assay - 05/31/17 20:15 Activated partial thromboplastin time (aPTT) in platelet poor plasma bycoagulation assay 57 s 24-35 Automated blood complete blood count (hemogram) panel - 06/01/17 03:26 Blood leukocytes automated count (number/volume) 5.0 10*3/uL 4.3-11.0 Blood erythrocytes automated count (number/volume) 3.01 10*6/uL 4.35-5.85 Venous blood hemoglobin measurement (mass/volume) 9.0 g/dL 11.5-16.0 Blood hematocrit (volume fraction) 29 % 35-52 Automated erythrocyte mean corpuscular volume 97 [foz_us] 80-99 Automated erythrocyte mean corpuscular hemoglobin (mass per erythrocyte) 30 pg 25-34 Automated erythrocyte mean corpuscular hemoglobin concentration measurement ( mass/volume) 31 g/dL 32-36 Automated erythrocyte distribution width ratio 17.0 % 10.0-14.5 Automated blood platelet count (count/volume) 139 10*3/uL 130-400 Automated blood platelet mean volume measurement 10.2 [foz_us] 7.4-10.4 Whole blood basic metabolic panel - 06/01/17 03:26 Serum or plasma sodium measurement (moles/volume) 138 mmol/L 135-145 Serum or plasma potassium measurement (moles/volume) 4.7 mmol/L 3.6-5.0 Serum or plasma chloride measurement (moles/volume) 108 mmol/L 98-107 Carbon dioxide 22 mmol/L 21-32 Serum or plasma anion gap determination (moles/volume) 8 mmol/L 5-14 Serum or plasma urea nitrogen measurement (mass/volume) 32 mg/dL 7-18 Serum or plasma creatinine measurement (mass/volume) 1.35 mg/dL 0.60-1.30 Serum or plasma urea nitrogen/creatinine mass ratio 24 NRG Serum or plasma creatinine measurement with calculation of estimated glomerular filtration rate 38 NRG Serum or plasma glucose measurement (mass/volume) 90 mg/dL 70-105 Serum or plasma calcium measurement (mass/volume) 8.5 mg/dL 8.5-10.1 Bacteria identification in isolate by anaerobe culture - 07/05/17 08:50 Bacteria identification in isolate by anaerobe culture NOANA NRG Gram stain microscopy - 07/05/17 08:50 GRAM STAIN RESULT FEW GRAM POSITIVE COCCI NRG Bacteria identification in wound by culture - 07/05/17 08:50 Bacteria identification in wound by culture [id number] NR FREE TEXT EXTERNAL SENSITIVITY REPORTED 07/14/17 BY NRG QUANTITY OF GROWTH Moderate Growth NR FREE TEXT ENTRY 2 [facility]. NR Bacterial susceptibility panel - 07/05/17 08:50 Oxacillin susceptibility test by minimum inhibitory concentration 2 NRG Gentamicin susceptibility test by minimum inhibitory concentration > = NRG Clindamycin susceptibility test by minimum inhibitory concentration >= NRG Erythromycin susceptibility test by minimum inhibitory concentration >= NRG Trimethoprim/sulfamethoxazole susceptibility test by minimum inhibitoryconcentration >= NRG Vancomycin susceptibility test by minimum inhibitory concentration < = NRG Levofloxacin susceptibility test by minimum inhibitory concentration >= NRG Rifampin susceptibility test by minimum inhibitory concentration <= NRG Tetracycline susceptibility test by minimum inhibitory concentration >= NRG Fungus culture - 07/05/17 08:50 FUNGUS REPORT NO FUNGUS GROWTH OBSERVED NRG Complete blood count (CBC) with automated white blood cell (WBC) differential - 07/25/17 10:18 Blood leukocytes automated count (number/volume) 4.7 10*3/uL 4.3-11.0 Blood erythrocytes automated count (number/volume) 3.12 10*6/uL 4.35-5.85 Venous blood hemoglobin measurement (mass/volume) 9.7 g/dL 11.5-16.0 Blood hematocrit (volume fraction) 32 % 35-52 Automated erythrocyte mean corpuscular volume 101 [foz_us] 80-99 Automated erythrocyte mean corpuscular hemoglobin (mass per erythrocyte) 31 pg 25-34 Automated erythrocyte mean corpuscular hemoglobin concentration measurement ( mass/volume) 31 g/dL 32-36 Automated erythrocyte distribution width ratio 15.5 % 10.0-14.5 Automated blood platelet count (count/volume) 144 10*3/uL 130-400 Automated blood platelet mean volume measurement 9.0 [foz_us] 7.4-10.4 Automated blood neutrophils/100 leukocytes 66 % 42-75 Automated blood lymphocytes/100 leukocytes 24 % 12-44 Blood monocytes/100 leukocytes 6 % 0-12 Automated blood eosinophils/100 leukocytes 3 % 0-10 Automated blood basophils/100 leukocytes 2 % 0-10 Blood neutrophils automated count (number/volume) 3.1 10*3 1.8-7.8 Blood lymphocytes automated count (number/volume) 1.1 10*3 1.0-4.0 Blood monocytes automated count (number/volume) 0.3 10*3 0.0-1.0 Automated eosinophil count 0.2 10*3/uL 0.0-0.3 Automated blood basophil count (count/volume) 0.1 10*3/uL 0.0-0.1 Complete blood count (CBC) with automated white blood cell (WBC) differential - 08/03/17 09:50 Blood leukocytes automated count (number/volume) 7.4 10*3/uL 4.3-11.0 Blood erythrocytes automated count (number/volume) 2.77 10*6/uL 4.35-5.85 Venous blood hemoglobin measurement (mass/volume) 8.7 g/dL 11.5-16.0 Blood hematocrit (volume fraction) 28 % 35-52 Automated erythrocyte mean corpuscular volume 101 [foz_us] 80-99 Automated erythrocyte mean corpuscular hemoglobin (mass per erythrocyte) 31 pg 25-34 Automated erythrocyte mean corpuscular hemoglobin concentration measurement ( mass/volume) 31 g/dL 32-36 Automated erythrocyte distribution width ratio 14.8 % 10.0-14.5 Automated blood platelet count (count/volume) 84 10*3/uL 130-400 Automated blood platelet mean volume measurement 11.5 [foz_us] 7.4-10.4 Automated blood neutrophils/100 leukocytes 67 % 42-75 Automated blood lymphocytes/100 leukocytes 15 % 12-44 Blood monocytes/100 leukocytes 16 % 0-12 Automated blood eosinophils/100 leukocytes 2 % 0-10 Automated blood basophils/100 leukocytes 0 % 0-10 Blood neutrophils automated count (number/volume) 5.0 10*3 1.8-7.8 Blood lymphocytes automated count (number/volume) 1.1 10*3 1.0-4.0 Blood monocytes automated count (number/volume) 1.2 10*3 0.0-1.0 Automated eosinophil count 0.2 10*3/uL 0.0-0.3 Automated blood basophil count (count/volume) 0.0 10*3/uL 0.0-0.1 PT panel in platelet poor plasma by coagulation assay - 08/03/17 09:50 Prothrombin time (PT) in platelet poor plasma by coagulation assay 24.6 s 12.2-14.7 INR in platelet poor plasma or blood by coagulation assay 2.2 0.8-1.4 Activated partial thromboplastin time (aPTT) in platelet poor plasma bycoagulation assay - 08/03/17 09:50 Activated partial thromboplastin time (aPTT) in platelet poor plasma bycoagulation assay 45 s 24-35 Blood lactic acid measurement (moles/volume) - 08/03/17 09:50 Blood lactic acid measurement (moles/volume) 1.44 mmol/L 0.50-2.00 Comprehensive metabolic panel - 08/03/17 09:50 Serum or plasma sodium measurement (moles/volume) 140 mmol/L 135-145 Serum or plasma potassium measurement (moles/volume) 4.0 mmol/L 3.6-5.0 Serum or plasma chloride measurement (moles/volume) 103 mmol/L 98-107 Carbon dioxide 30 mmol/L 21-32 Serum or plasma anion gap determination (moles/volume) 7 mmol/L 5-14 Serum or plasma urea nitrogen measurement (mass/volume) 23 mg/dL 7-18 Serum or plasma creatinine measurement (mass/volume) 1.16 mg/dL 0.60-1.30 Serum or plasma urea nitrogen/creatinine mass ratio 20 NRG Serum or plasma creatinine measurement with calculation of estimated glomerular filtration rate 45 NRG Serum or plasma glucose measurement (mass/volume) 108 mg/dL 70-105 Serum or plasma calcium measurement (mass/volume) 9.1 mg/dL 8.5-10.1 Serum or plasma total bilirubin measurement (mass/volume) 0.8 mg/dL 0.1-1.0 Serum or plasma alkaline phosphatase measurement (enzymatic activity/volume) 64 U/L 40-136 Serum or plasma aspartate aminotransferase measurement (enzymatic activity/ volume) 18 U/L 5-34 Serum or plasma alanine aminotransferase measurement (enzymatic activity/volume ) 14 U/L 0-55 Serum or plasma protein measurement (mass/volume) 7.6 g/dL 6.4-8.2 Serum or plasma albumin measurement (mass/volume) 3.9 g/dL 3.2-4.5 Serum or plasma lithium measurement (moles/volume) - 08/03/17 09:50 BNP level 752.6 pg/mL <100.0 Serum or plasma troponin i.cardiac measurement (mass/volume) - 08/03/17 09:50 Serum or plasma troponin i.cardiac measurement (mass/volume) < ng/ mL <0.30 Bacterial blood culture - 08/03/17 09:50 Bacterial blood culture NG NRG Bacterial blood culture - 08/03/17 10:16 Bacterial blood culture NG NRG Complete urinalysis with reflex to culture - 08/03/17 10:34 Urine color determination YELLOW NRG Urine clarity determination CLEAR NRG Urine pH measurement by test strip 8 5-9 Specific gravity of urine by test strip 1.010 1.016- 1.022 Urine protein assay by test strip, semi-quantitative NEGATIVE NEGATIVE Urine glucose detection by automated test strip NEGATIVE NEGATIVE Erythrocytes detection in urine sediment by light microscopy 2+ NEGATIVE Urine ketones detection by automated test strip NEGATIVE NEGATIVE Urine nitrite detection by test strip NEGATIVE NEGATIVE Urine total bilirubin detection by test strip NEGATIVE NEGATIVE Urine urobilinogen measurement by automated test strip (mass/volume) NORMAL NORMAL Urine leukocyte esterase detection by dipstick NEGATIVE NEGATIVE Automated urine sediment erythrocyte count by microscopy (number/high power field) [HPF] NRG Automated urine sediment leukocyte count by microscopy (number/high power field ) NONE NRG Bacteria detection in urine sediment by light microscopy NEGATIVE NRG Squamous epithelial cells detection in urine sediment by light microscopy NONE NRG Crystals detection in urine sediment by light microscopy NONE NRG Casts detection in urine sediment by light microscopy NONE NRG Mucus detection in urine sediment by light microscopy NEGATIVE NRG Complete urinalysis with reflex to culture NO NRG Complete blood count (CBC) with automated white blood cell (WBC) differential - 08/04/17 05:21 Blood leukocytes automated count (number/volume) 6.6 10*3/uL 4.3-11.0 Blood erythrocytes automated count (number/volume) 2.31 10*6/uL 4.35-5.85 Venous blood hemoglobin measurement (mass/volume) 7.1 g/dL 11.5-16.0 Blood hematocrit (volume fraction) 23 % 35-52 Automated erythrocyte mean corpuscular volume 100 [foz_us] 80-99 Automated erythrocyte mean corpuscular hemoglobin (mass per erythrocyte) 31 pg 25-34 Automated erythrocyte mean corpuscular hemoglobin concentration measurement ( mass/volume) 31 g/dL 32-36 Automated erythrocyte distribution width ratio 14.7 % 10.0-14.5 Automated blood platelet count (count/volume) 78 10*3/uL 130-400 Automated blood platelet mean volume measurement 11.5 [foz_us] 7.4-10.4 Automated blood neutrophils/100 leukocytes 70 % 42-75 Automated blood lymphocytes/100 leukocytes 13 % 12-44 Blood monocytes/100 leukocytes 16 % 0-12 Automated blood eosinophils/100 leukocytes 0 % 0-10 Automated blood basophils/100 leukocytes 0 % 0-10 Blood neutrophils automated count (number/volume) 4.6 10*3 1.8-7.8 Blood lymphocytes automated count (number/volume) 0.9 10*3 1.0-4.0 Blood monocytes automated count (number/volume) 1.1 10*3 0.0-1.0 Automated eosinophil count 0.0 10*3/uL 0.0-0.3 Automated blood basophil count (count/volume) 0.0 10*3/uL 0.0-0.1 Comprehensive metabolic panel - 08/04/17 05:21 Serum or plasma sodium measurement (moles/volume) 140 mmol/L 135-145 Serum or plasma potassium measurement (moles/volume) 3.9 mmol/L 3.6-5.0 Serum or plasma chloride measurement (moles/volume) 103 mmol/L 98-107 Carbon dioxide 29 mmol/L 21-32 Serum or plasma anion gap determination (moles/volume) 8 mmol/L 5-14 Serum or plasma urea nitrogen measurement (mass/volume) 20 mg/dL 7-18 Serum or plasma creatinine measurement (mass/volume) 1.30 mg/dL 0.60-1.30 Serum or plasma urea nitrogen/creatinine mass ratio 15 NRG Serum or plasma creatinine measurement with calculation of estimated glomerular filtration rate 39 NRG Serum or plasma glucose measurement (mass/volume) 126 mg/dL 70-105 Serum or plasma calcium measurement (mass/volume) 8.5 mg/dL 8.5-10.1 Serum or plasma total bilirubin measurement (mass/volume) 0.8 mg/dL 0.1-1.0 Serum or plasma alkaline phosphatase measurement (enzymatic activity/volume) 53 U/L 40-136 Serum or plasma aspartate aminotransferase measurement (enzymatic activity/ volume) 15 U/L 5-34 Serum or plasma alanine aminotransferase measurement (enzymatic activity/volume ) 12 U/L 0-55 Serum or plasma protein measurement (mass/volume) 6.5 g/dL 6.4-8.2 Serum or plasma albumin measurement (mass/volume) 3.4 g/dL 3.2-4.5 IRON TEST - 08/04/17 05:21 Serum or plasma iron measurement (mass/volume) 15 % 35- 180 Serum or plasma ferritin measurement (mass/volume) - 08/04/17 05:21 Serum or plasma ferritin measurement (mass/volume) 135.5 % 15.0-150.0 IRON TEST - 08/04/17 05:21 Serum or plasma iron measurement (mass/volume) 15 % 35- 180 Complete blood count (CBC) with automated white blood cell (WBC) differential - 08/05/17 04:47 Blood leukocytes automated count (number/volume) 7.7 10*3/uL 4.3-11.0 Blood erythrocytes automated count (number/volume) 2.24 10*6/uL 4.35-5.85 Venous blood hemoglobin measurement (mass/volume) 7.0 g/dL 11.5-16.0 Blood hematocrit (volume fraction) 23 % 35-52 Automated erythrocyte mean corpuscular volume 100 [foz_us] 80-99 Automated erythrocyte mean corpuscular hemoglobin (mass per erythrocyte) 31 pg 25-34 Automated erythrocyte mean corpuscular hemoglobin concentration measurement ( mass/volume) 31 g/dL 32-36 Automated erythrocyte distribution width ratio 14.7 % 10.0-14.5 Automated blood platelet count (count/volume) 99 10*3/uL 130-400 Automated blood platelet mean volume measurement 11.2 [foz_us] 7.4-10.4 Automated blood neutrophils/100 leukocytes 67 % 42-75 Automated blood lymphocytes/100 leukocytes 15 % 12-44 Blood monocytes/100 leukocytes 17 % 0-12 Automated blood eosinophils/100 leukocytes 1 % 0-10 Automated blood basophils/100 leukocytes 0 % 0-10 Blood neutrophils automated count (number/volume) 5.1 10*3 1.8-7.8 Blood lymphocytes automated count (number/volume) 1.1 10*3 1.0-4.0 Blood monocytes automated count (number/volume) 1.3 10*3 0.0-1.0 Automated eosinophil count 0.1 10*3/uL 0.0-0.3 Automated blood basophil count (count/volume) 0.0 10*3/uL 0.0-0.1 PT panel in platelet poor plasma by coagulation assay - 08/05/17 04:47 Prothrombin time (PT) in platelet poor plasma by coagulation assay 32.6 s 12.2-14.7 INR in platelet poor plasma or blood by coagulation assay 3.2 0.8-1.4 Comprehensive metabolic panel - 08/05/17 04:47 Serum or plasma sodium measurement (moles/volume) 138 mmol/L 135-145 Serum or plasma potassium measurement (moles/volume) 4.3 mmol/L 3.6-5.0 Serum or plasma chloride measurement (moles/volume) 101 mmol/L 98-107 Carbon dioxide 29 mmol/L 21-32 Serum or plasma anion gap determination (moles/volume) 8 mmol/L 5-14 Serum or plasma urea nitrogen measurement (mass/volume) 19 mg/dL 7-18 Serum or plasma creatinine measurement (mass/volume) 1.45 mg/dL 0.60-1.30 Serum or plasma urea nitrogen/creatinine mass ratio 13 NRG Serum or plasma creatinine measurement with calculation of estimated glomerular filtration rate 35 NRG Serum or plasma glucose measurement (mass/volume) 100 mg/dL 70-105 Serum or plasma calcium measurement (mass/volume) 8.4 mg/dL 8.5-10.1 Serum or plasma total bilirubin measurement (mass/volume) 0.9 mg/dL 0.1-1.0 Serum or plasma alkaline phosphatase measurement (enzymatic activity/volume) 50 U/L 40-136 Serum or plasma aspartate aminotransferase measurement (enzymatic activity/ volume) 15 U/L 5-34 Serum or plasma alanine aminotransferase measurement (enzymatic activity/volume ) 11 U/L 0-55 Serum or plasma protein measurement (mass/volume) 6.4 g/dL 6.4-8.2 Serum or plasma albumin measurement (mass/volume) 3.3 g/dL 3.2-4.5 Complete blood count (CBC) with automated white blood cell (WBC) differential - 08/06/17 05:57 Blood leukocytes automated count (number/volume) 7.0 10*3/uL 4.3-11.0 Blood erythrocytes automated count (number/volume) 2.39 10*6/uL 4.35-5.85 Venous blood hemoglobin measurement (mass/volume) 7.5 g/dL 11.5-16.0 Blood hematocrit (volume fraction) 24 % 35-52 Automated erythrocyte mean corpuscular volume 102 [foz_us] 80-99 Automated erythrocyte mean corpuscular hemoglobin (mass per erythrocyte) 31 pg 25-34 Automated erythrocyte mean corpuscular hemoglobin concentration measurement ( mass/volume) 31 g/dL 32-36 Automated erythrocyte distribution width ratio 14.7 % 10.0-14.5 Automated blood platelet count (count/volume) 140 10*3/uL 130-400 Automated blood platelet mean volume measurement 11.2 [foz_us] 7.4-10.4 Automated blood neutrophils/100 leukocytes 67 % 42-75 Automated blood lymphocytes/100 leukocytes 18 % 12-44 Blood monocytes/100 leukocytes 11 % 0-12 Automated blood eosinophils/100 leukocytes 4 % 0-10 Automated blood basophils/100 leukocytes 0 % 0-10 Blood neutrophils automated count (number/volume) 4.7 10*3 1.8-7.8 Blood lymphocytes automated count (number/volume) 1.2 10*3 1.0-4.0 Blood monocytes automated count (number/volume) 0.8 10*3 0.0-1.0 Automated eosinophil count 0.3 10*3/uL 0.0-0.3 Automated blood basophil count (count/volume) 0.0 10*3/uL 0.0-0.1 Comprehensive metabolic panel - 08/06/17 05:57 Serum or plasma sodium measurement (moles/volume) 137 mmol/L 135-145 Serum or plasma potassium measurement (moles/volume) 4.2 mmol/L 3.6-5.0 Serum or plasma chloride measurement (moles/volume) 98 mmol/L 98-107 Carbon dioxide 30 mmol/L 21-32 Serum or plasma anion gap determination (moles/volume) 9 mmol/L 5-14 Serum or plasma urea nitrogen measurement (mass/volume) 20 mg/dL 7-18 Serum or plasma creatinine measurement (mass/volume) 1.41 mg/dL 0.60-1.30 Serum or plasma urea nitrogen/creatinine mass ratio 14 NRG Serum or plasma creatinine measurement with calculation of estimated glomerular filtration rate 36 NRG Serum or plasma glucose measurement (mass/volume) 81 mg/dL 70-105 Serum or plasma calcium measurement (mass/volume) 8.5 mg/dL 8.5-10.1 Serum or plasma total bilirubin measurement (mass/volume) 0.7 mg/dL 0.1-1.0 Serum or plasma alkaline phosphatase measurement (enzymatic activity/volume) 55 U/L 40-136 Serum or plasma aspartate aminotransferase measurement (enzymatic activity/ volume) 15 U/L 5-34 Serum or plasma alanine aminotransferase measurement (enzymatic activity/volume ) 10 U/L 0-55 Serum or plasma protein measurement (mass/volume) 7.0 g/dL 6.4-8.2 Serum or plasma albumin measurement (mass/volume) 3.5 g/dL 3.2-4.5 Complete urinalysis with reflex to culture - 08/06/17 15:52 Urine color determination YELLOW NRG Urine clarity determination CLEAR NRG Urine pH measurement by test strip 6 5-9 Specific gravity of urine by test strip 1.015 1.016- 1.022 Urine protein assay by test strip, semi-quantitative NEGATIVE NEGATIVE Urine glucose detection by automated test strip NEGATIVE NEGATIVE Erythrocytes detection in urine sediment by light microscopy 5+ NEGATIVE Urine ketones detection by automated test strip NEGATIVE NEGATIVE Urine nitrite detection by test strip NEGATIVE NEGATIVE Urine total bilirubin detection by test strip NEGATIVE NEGATIVE Urine urobilinogen measurement by automated test strip (mass/volume) NORMAL NORMAL Urine leukocyte esterase detection by dipstick 2+ NEGATIVE Automated urine sediment erythrocyte count by microscopy (number/high power field) [HPF] NRG Automated urine sediment leukocyte count by microscopy (number/high power field ) [HPF] NRG Bacteria detection in urine sediment by light microscopy FEW NRG Squamous epithelial cells detection in urine sediment by light microscopy 0-2 NRG Crystals detection in urine sediment by light microscopy NONE NRG Casts detection in urine sediment by light microscopy NONE NRG Mucus detection in urine sediment by light microscopy NEGATIVE NRG Complete urinalysis with reflex to culture YES NRG Bacterial urine culture - 08/06/17 15:52 Bacterial urine culture [id number] NRG COLONY COUNT >100,000/ML NRG FTX;REPORTABLE UNUSUAL RESISTANCE PATTERN DETECTED; NRG FREE TEXT ENTRY 2 ESBL IDENTIFIED. NR Bacterial susceptibility panel - 08/06/17 15:52 Gentamicin susceptibility test by minimum inhibitory concentration < = NRG Trimethoprim/sulfamethoxazole susceptibility test by minimum inhibitoryconcentration R NRG Ampicillin susceptibility test by minimum inhibitory concentration > = NRG Tobramycin susceptibility test by minimum inhibitory concentration < = NRG Cefazolin susceptibility test by minimum inhibitory concentration > = NRG Ceftriaxone susceptibility test by minimum inhibitory concentration R NRG Ampicillin/sulbactam susceptibility test by minimum inhibitory concentration R NRG Ciprofloxacin susceptibility test by minimum inhibitory concentration >= NRG Meropenem susceptibility test by minimum inhibitory concentration < = NRG Nitrofurantoin susceptibility test by minimum inhibitory concentration <= NRG Aztreonam susceptibility test by minimum inhibitory concentration R NRG Extended spectrum beta lactamase (ESBL) producing bacteria susceptibility test by minimum inhibitory concentration + NRG Automated blood complete blood count (hemogram) panel - 08/07/17 05:35 Blood leukocytes automated count (number/volume) 6.4 10*3/uL 4.3-11.0 Blood erythrocytes automated count (number/volume) 2.51 10*6/uL 4.35-5.85 Venous blood hemoglobin measurement (mass/volume) 7.8 g/dL 11.5-16.0 Blood hematocrit (volume fraction) 25 % 35-52 Automated erythrocyte mean corpuscular volume 100 [foz_us] 80-99 Automated erythrocyte mean corpuscular hemoglobin (mass per erythrocyte) 31 pg 25-34 Automated erythrocyte mean corpuscular hemoglobin concentration measurement ( mass/volume) 31 g/dL 32-36 Automated erythrocyte distribution width ratio 14.7 % 10.0-14.5 Automated blood platelet count (count/volume) 176 10*3/uL 130-400 Automated blood platelet mean volume measurement 11.0 [foz_us] 7.4-10.4 PT panel in platelet poor plasma by coagulation assay - 08/07/17 05:35 Prothrombin time (PT) in platelet poor plasma by coagulation assay 40.3 s 12.2-14.7 INR in platelet poor plasma or blood by coagulation assay 4.2 0.8-1.4 Comprehensive metabolic panel - 08/07/17 05:35 Serum or plasma sodium measurement (moles/volume) 137 mmol/L 135-145 Serum or plasma potassium measurement (moles/volume) 4.2 mmol/L 3.6-5.0 Serum or plasma chloride measurement (moles/volume) 99 mmol/L 98-107 Carbon dioxide 30 mmol/L 21-32 Serum or plasma anion gap determination (moles/volume) 8 mmol/L 5-14 Serum or plasma urea nitrogen measurement (mass/volume) 22 mg/dL 7-18 Serum or plasma creatinine measurement (mass/volume) 1.24 mg/dL 0.60-1.30 Serum or plasma urea nitrogen/creatinine mass ratio 18 NRG Serum or plasma creatinine measurement with calculation of estimated glomerular filtration rate 42 NRG Serum or plasma glucose measurement (mass/volume) 82 mg/dL 70-105 Serum or plasma calcium measurement (mass/volume) 8.8 mg/dL 8.5-10.1 Serum or plasma total bilirubin measurement (mass/volume) 0.8 mg/dL 0.1-1.0 Serum or plasma alkaline phosphatase measurement (enzymatic activity/volume) 57 U/L 40-136 Serum or plasma aspartate aminotransferase measurement (enzymatic activity/ volume) 16 U/L 5-34 Serum or plasma alanine aminotransferase measurement (enzymatic activity/volume ) 10 U/L 0-55 Serum or plasma protein measurement (mass/volume) 7.0 g/dL 6.4-8.2 Serum or plasma albumin measurement (mass/volume) 3.5 g/dL 3.2-4.5 Digoxin - 08/07/17 05:35 Digoxin 1.24 ng/mL 0.80-2.00 Serum or plasma lithium measurement (moles/volume) - 08/07/17 05:35 BNP level 787.9 pg/mL <100.0 Whole blood basic metabolic panel - 08/09/17 05:41 Serum or plasma sodium measurement (moles/volume) 140 mmol/L 135-145 Serum or plasma potassium measurement (moles/volume) 4.3 mmol/L 3.6-5.0 Serum or plasma chloride measurement (moles/volume) 102 mmol/L 98-107 Carbon dioxide 30 mmol/L 21-32 Serum or plasma anion gap determination (moles/volume) 8 mmol/L 5-14 Serum or plasma urea nitrogen measurement (mass/volume) 21 mg/dL 7-18 Serum or plasma creatinine measurement (mass/volume) 1.22 mg/dL 0.60-1.30 Serum or plasma urea nitrogen/creatinine mass ratio 17 NRG Serum or plasma creatinine measurement with calculation of estimated glomerular filtration rate 42 NRG Serum or plasma glucose measurement (mass/volume) 91 mg/dL 70-105 Serum or plasma calcium measurement (mass/volume) 8.7 mg/dL 8.5-10.1 Automated blood complete blood count (hemogram) panel - 08/09/17 05:41 Blood leukocytes automated count (number/volume) 5.4 10*3/uL 4.3-11.0 Blood erythrocytes automated count (number/volume) 2.50 10*6/uL 4.35-5.85 Venous blood hemoglobin measurement (mass/volume) 7.8 g/dL 11.5-16.0 Blood hematocrit (volume fraction) 26 % 35-52 Automated erythrocyte mean corpuscular volume 103 [foz_us] 80-99 Automated erythrocyte mean corpuscular hemoglobin (mass per erythrocyte) 31 pg 25-34 Automated erythrocyte mean corpuscular hemoglobin concentration measurement ( mass/volume) 30 g/dL 32-36 Automated erythrocyte distribution width ratio 15.1 % 10.0-14.5 Automated blood platelet count (count/volume) 227 10*3/uL 130-400 Automated blood platelet mean volume measurement 10.5 [foz_us] 7.4-10.4 PT panel in platelet poor plasma by coagulation assay - 08/09/17 05:41 Prothrombin time (PT) in platelet poor plasma by coagulation assay 29.4 s 12.2-14.7 INR in platelet poor plasma or blood by coagulation assay 2.8 0.8-1.4 Automated blood complete blood count (hemogram) panel - 08/10/17 06:37 Blood leukocytes automated count (number/volume) 5.1 10*3/uL 4.3-11.0 Blood erythrocytes automated count (number/volume) 2.38 10*6/uL 4.35-5.85 Venous blood hemoglobin measurement (mass/volume) 7.5 g/dL 11.5-16.0 Blood hematocrit (volume fraction) 25 % 35-52 Automated erythrocyte mean corpuscular volume 105 [foz_us] 80-99 Automated erythrocyte mean corpuscular hemoglobin (mass per erythrocyte) 32 pg 25-34 Automated erythrocyte mean corpuscular hemoglobin concentration measurement ( mass/volume) 30 g/dL 32-36 Automated erythrocyte distribution width ratio 15.3 % 10.0-14.5 Automated blood platelet count (count/volume) 221 10*3/uL 130-400 Automated blood platelet mean volume measurement 10.1 [foz_us] 7.4-10.4 Whole blood basic metabolic panel - 08/10/17 06:37 Serum or plasma sodium measurement (moles/volume) 140 mmol/L 135-145 Serum or plasma potassium measurement (moles/volume) 4.3 mmol/L 3.6-5.0 Serum or plasma chloride measurement (moles/volume) 103 mmol/L 98-107 Carbon dioxide 29 mmol/L 21-32 Serum or plasma anion gap determination (moles/volume) 8 mmol/L 5-14 Serum or plasma urea nitrogen measurement (mass/volume) 14 mg/dL 7-18 Serum or plasma creatinine measurement (mass/volume) 0.89 mg/dL 0.60-1.30 Serum or plasma urea nitrogen/creatinine mass ratio 16 NRG Serum or plasma creatinine measurement with calculation of estimated glomerular filtration rate > NRG Serum or plasma glucose measurement (mass/volume) 87 mg/dL 70-105 Serum or plasma calcium measurement (mass/volume) 8.5 mg/dL 8.5-10.1 PT panel in platelet poor plasma by coagulation assay - 08/10/17 06:37 Prothrombin time (PT) in platelet poor plasma by coagulation assay 21.6 s 12.2-14.7 INR in platelet poor plasma or blood by coagulation assay 1.9 0.8-1.4 Magnesium - 08/10/17 06:37 Magnesium 1.9 mg/dL 1.8-2.4 RED CELLS LEUKO REDUCED AS1 - 08/10/17 09:25 RED CELLS LEUKO REDUCED AS1 TRANSFUSED 08/10/17 1033 NRG Blood type T Indirect antibody screen panel - 08/10/17 09:25 ABO+Rh group ON NRG Transfusion band number [id number] NR Blood group antibody screen NEGATIVE NR Automated blood complete blood count (hemogram) panel - 08/11/17 05:23 Blood leukocytes automated count (number/volume) 6.2 10*3/uL 4.3-11.0 Blood erythrocytes automated count (number/volume) 2.56 10*6/uL 4.35-5.85 Venous blood hemoglobin measurement (mass/volume) 8.0 g/dL 11.5-16.0 Blood hematocrit (volume fraction) 26 % 35-52 Automated erythrocyte mean corpuscular volume 103 [foz_us] 80-99 Automated erythrocyte mean corpuscular hemoglobin (mass per erythrocyte) 31 pg 25-34 Automated erythrocyte mean corpuscular hemoglobin concentration measurement ( mass/volume) 30 g/dL 32-36 Automated erythrocyte distribution width ratio 16.8 % 10.0-14.5 Automated blood platelet count (count/volume) 226 10*3/uL 130-400 Automated blood platelet mean volume measurement 10.1 [foz_us] 7.4-10.4 PT panel in platelet poor plasma by coagulation assay - 08/11/17 05:23 Prothrombin time (PT) in platelet poor plasma by coagulation assay 23.9 s 12.2-14.7 INR in platelet poor plasma or blood by coagulation assay 2.1 0.8-1.4 Comprehensive metabolic panel - 08/11/17 05:23 Serum or plasma sodium measurement (moles/volume) 143 mmol/L 135-145 Serum or plasma potassium measurement (moles/volume) 4.1 mmol/L 3.6-5.0 Serum or plasma chloride measurement (moles/volume) 103 mmol/L 98-107 Carbon dioxide 31 mmol/L 21-32 Serum or plasma anion gap determination (moles/volume) 9 mmol/L 5-14 Serum or plasma urea nitrogen measurement (mass/volume) 15 mg/dL 7-18 Serum or plasma creatinine measurement (mass/volume) 0.91 mg/dL 0.60-1.30 Serum or plasma urea nitrogen/creatinine mass ratio 16 NRG Serum or plasma creatinine measurement with calculation of estimated glomerular filtration rate 59 NRG Serum or plasma glucose measurement (mass/volume) 82 mg/dL 70-105 Serum or plasma calcium measurement (mass/volume) 8.8 mg/dL 8.5-10.1 Serum or plasma total bilirubin measurement (mass/volume) 0.7 mg/dL 0.1-1.0 Serum or plasma alkaline phosphatase measurement (enzymatic activity/volume) 60 U/L 40-136 Serum or plasma aspartate aminotransferase measurement (enzymatic activity/ volume) 13 U/L 5-34 Serum or plasma alanine aminotransferase measurement (enzymatic activity/volume ) 7 U/L 0-55 Serum or plasma protein measurement (mass/volume) 6.3 g/dL 6.4-8.2 Serum or plasma albumin measurement (mass/volume) 3.2 g/dL 3.2-4.5 Serum or plasma lithium measurement (moles/volume) - 08/11/17 05:23 BNP level 973.8 pg/mL <100.0 PT panel in platelet poor plasma by coagulation assay - 08/12/17 05:10 Prothrombin time (PT) in platelet poor plasma by coagulation assay 23.1 s 12.2-14.7 INR in platelet poor plasma or blood by coagulation assay 2.1 0.8-1.4 Automated blood complete blood count (hemogram) panel - 08/13/17 05:34 Blood leukocytes automated count (number/volume) 6.3 10*3/uL 4.3-11.0 Blood erythrocytes automated count (number/volume) 2.70 10*6/uL 4.35-5.85 Venous blood hemoglobin measurement (mass/volume) 8.6 g/dL 11.5-16.0 Blood hematocrit (volume fraction) 28 % 35-52 Automated erythrocyte mean corpuscular volume 103 [foz_us] 80-99 Automated erythrocyte mean corpuscular hemoglobin (mass per erythrocyte) 32 pg 25-34 Automated erythrocyte mean corpuscular hemoglobin concentration measurement ( mass/volume) 31 g/dL 32-36 Automated erythrocyte distribution width ratio 16.3 % 10.0-14.5 Automated blood platelet count (count/volume) 257 10*3/uL 130-400 Automated blood platelet mean volume measurement 10.1 [foz_us] 7.4-10.4 PT panel in platelet poor plasma by coagulation assay - 08/13/17 05:34 Prothrombin time (PT) in platelet poor plasma by coagulation assay 25.9 s 12.2-14.7 INR in platelet poor plasma or blood by coagulation assay 2.4 0.8-1.4 Whole blood basic metabolic panel - 08/13/17 05:34 Serum or plasma sodium measurement (moles/volume) 140 mmol/L 135-145 Serum or plasma potassium measurement (moles/volume) 4.0 mmol/L 3.6-5.0 Serum or plasma chloride measurement (moles/volume) 97 mmol/L 98-107 Carbon dioxide 35 mmol/L 21-32 Serum or plasma anion gap determination (moles/volume) 8 mmol/L 5-14 Serum or plasma urea nitrogen measurement (mass/volume) 12 mg/dL 7-18 Serum or plasma creatinine measurement (mass/volume) 0.80 mg/dL 0.60-1.30 Serum or plasma urea nitrogen/creatinine mass ratio 15 NRG Serum or plasma creatinine measurement with calculation of estimated glomerular filtration rate > NRG Serum or plasma glucose measurement (mass/volume) 77 mg/dL 70-105 Serum or plasma calcium measurement (mass/volume) 9.2 mg/dL 8.5-10.1 Serum or plasma lithium measurement (moles/volume) - 08/13/17 05:34 BNP level 958.0 pg/mL <100.0 Bacteria identification in isolate by anaerobe culture - 10/11/17 14:19 Bacteria identification in isolate by anaerobe culture NG NRG Gram stain microscopy - 10/11/17 14:19 GRAM STAIN RESULT NO BACTERIA OBSERVED NR Bacteria identification in wound by culture - 10/11/17 14:19 Bacteria identification in wound by culture [id number] [facility] FREE [place] [address], 2-18 NRG QUANTITY OF GROWTH Scant Growth NR Bacterial susceptibility panel - 10/11/17 14:19 Oxacillin susceptibility test by minimum inhibitory concentration < = NRG Gentamicin susceptibility test by minimum inhibitory concentration < = NRG Clindamycin susceptibility test by minimum inhibitory concentration <= NRG Erythromycin susceptibility test by minimum inhibitory concentration <= NRG Trimethoprim/sulfamethoxazole susceptibility test by minimum inhibitoryconcentration S NRG Vancomycin susceptibility test by minimum inhibitory concentration < = NRG Levofloxacin susceptibility test by minimum inhibitory concentration <= NRG Rifampin susceptibility test by minimum inhibitory concentration <= NRG Tetracycline susceptibility test by minimum inhibitory concentration <= NRG Linezolid susceptibility test by minimum inhibitory concentration 1 NRG Encounters ACCT No. Visit Date/Time Discharge Status Pt. Type Provider Facility Loc./Unit Complaint [id number] 10/18/2017 12:36:00 10/18/2017 23:59:59 CLS Outpatient YESENIA QUIROS VOUCHER CLERK [facility] [id number] 10/11/2017 13:32:00 10/11/2017 23:59:59 CLS Outpatient YESENIA QUIROS VOUCHER CLERK [facility] [id number] 10/02/2017 08:53:00 10/02/2017 23:59:59 CLS Outpatient YESENIA QUIROS VOUCHER CLERK [facility] [id number] 09/25/2017 09:21:00 09/25/2017 23:59:59 CLS Outpatient YESENIA QUIROS APRN [facility] [id number] 08/30/2017 08:22:00 08/30/2017 23:59:59 CLS Outpatient GEM [facility]OSTER [id number] 08/23/2017 08:16:00 08/23/2017 23:59:59 CLS Outpatient GEM FOSTER MD [facility] [id number] 08/16/2017 14:04:00 08/16/2017 23:59:59 CLS Outpatient YESENIA QUIROS APRN [facility] [id number] 08/08/2017 11:21:00 08/13/2017 14:05:00 DIS Inpatient VENANCIO ARREAGA MD [facility] 4TH SWB [id number] 08/03/2017 11:20:00 08/08/2017 10:49:00 DIS Inpatient AURORA CIFUENTES DO [facility] 4TH ACUTE HEART FAILURE [id number] 08/02/2017 08:24:00 08/02/2017 23:59:59 CLS Outpatient GEM FOSTER MD [facility] [id number] 07/25/2017 10:11:00 07/25/2017 23:59:59 CLS Outpatient ARCENIO NIETO MD [facility] LAB I87.331,I70.233 [id number] 07/25/2017 08:47:00 07/25/2017 23:59:59 CLS Outpatient ARCENIO NIETO MD [facility] [id number] 07/19/2017 08:27:00 07/19/2017 23:59:59 CLS Outpatient GEM FOSTER MD [facility] [id number] 07/12/2017 08:32:00 07/12/2017 23:59:59 CLS Outpatient GEM FOSTER MD [facility] [id number] 07/05/2017 08:26:00 07/05/2017 23:59:59 CLS Outpatient GEM FOSTER MD [facility] [id number] 06/28/2017 08:09:00 06/28/2017 23:59:59 CLS Outpatient GEM FOSTER [id number] 06/21/2017 08:30:00 06/21/2017 23:59:59 CLS Outpatient GEM FOSTER MD [facility] [id number] 06/14/2017 08:30:00 06/14/2017 23:59:59 CLS Outpatient GEM FOSTER MD [facility] [id number] 06/07/2017 08:26:00 06/07/2017 23:59:59 CLS Outpatient GEM FOSTER MD [facility] [id number] 05/31/2017 13:05:00 06/01/2017 09:00:00 DIS Outpatient PRANEETH SHUKLA MD [facility] CATH ABN LINDA, NON HEALING FOOT ULCER [id number] 05/31/2017 08:19:00 05/31/2017 23:59:59 CLS Outpatient GEM FOSTER MD [facility] [id number] 05/24/2017 08:25:00 05/24/2017 23:59:59 CLS Outpatient GEM FOSTER MD [facility] [id number] 05/17/2017 08:16:00 05/17/2017 23:59:59 CLS Outpatient GEM FOSTER MD [facility] [id number] 05/10/2017 10:58:00 05/10/2017 23:59:59 CLS Outpatient GEM FOSTER MD [facility] XRAY RIGHT ANKLE [id number] 05/03/2017 10:10:00 05/03/2017 23:59:59 CLS Outpatient GEM FOSTER MD [facility] [id number] 04/24/2017 09:48:00 04/24/2017 23:59:59 CLS Outpatient YESENIA QUIROS APRN [facility] [id number] 04/19/2017 13:50:00 04/19/2017 23:59:59 CLS Outpatient YESENIA QUIROS APRN [facility] [id number] 04/12/2017 08:48:00 04/12/2017 23:59:59 CLS Outpatient GEM FOSTER MD [facility] [id number] 04/05/2017 08:59:00 04/05/2017 23:59:59 CLS Outpatient KARI MILLER MD [facility] RAD RT RENAL CYST [id number] 12/22/2016 11:55:00 12/22/2016 23:59:59 CLS Outpatient PRANEETH SHUKLA MD [facility] CARD CAD,HTN,AF,AAA [id number] 12/20/2016 07:47:00 12/20/2016 23:59:59 CLS Outpatient PRANEETH SHUKLA MD [facility] CARD CAD,HTN,HYPERLIPIDEMIA, AF, AAA [id number] 04/10/2016 13:28:00 04/10/2016 23:59:59 CLS Outpatient THANH VELÁSQUEZ [facility] RAD AAA,CAD,HTN [id number] 03/24/2016 08:45:00 03/24/2016 23:59:59 CLS Outpatient KARI MILLER MD [facility] RAD RT RENAL CYST [id number] 01/13/2016 08:43:00 01/13/2016 23:59:59 CLS Outpatient PRANEETH SHUKLA MD [facility] CARD CAD,AAA,AF,HTN [id number] 07/13/2015 05:20:00 07/19/2015 11:53:00 DIS Inpatient RUSTAM CALI DO [facility] 4TH ACUTE LIVER FAILURE, PNEUMONIA [id number] 06/04/2015 07:55:00 06/05/2015 14:50:00 DIS Inpatient PRANEETH SHUKLA MD [facility] ACUTE EXACERBATION OF CHF [id number] 03/04/2015 00:09:00 03/04/2015 23:59:59 CLS Preadmit PRANEETH SHUKLA MD [facility] RAD AF, CAD, HTN , HYPERLIPADEMA [id number] 12/03/2014 10:44:00 03/03/2015 00:01:00 DIS Outpatient PRANEETH SHUKLA MD [facility] RAD AF, CAD, HTN , HYPERLIPADEMA [id number] 02/08/2015 10:51:00 02/08/2015 23:59:59 CLS Outpatient KARI MILLER MD [facility] RAD HEMATURIA [id number] 01/02/2015 08:01:00 01/07/2015 10:15:00 DIS Inpatient RUSTAM CALI DO [facility] ACUTE CHF EXACERBATION [id number] 10/13/2014 10:00:00 10/14/2014 16:50:00 DIS Inpatient PRANEETH SHUKLA MD [facility] CSD HEART FAILURE [id number] 09/16/2014 06:47:00 09/18/2014 09:50:00 DIS Outpatient PRANEETH SHUKLA MD [facility] CATH CAD,CHF,HTN [id number] 09/06/2014 20:35:00 09/07/2014 20:30:00 DIS Inpatient RUSTAM CALI DO [facility] ICU CHEST PAIN [id number] 07/21/2014 12:14:00 07/22/2014 15:45:00 DIS Inpatient RUSTAM CALI DO [facility] CSD CHF EXACERBATION HYPOXIA [id number] 07/13/2014 08:03:00 07/13/2014 23:59:59 CLS Outpatient ANT LOPEZ DO [facility] RAD HYPOXIA,RESTRICTIVE LUNG DISEASE [id number] 06/01/2014 14:17:00 06/01/2014 23:59:59 CLS Outpatient ANT LOPEZ DO [facility] RT SOB [id number] 05/16/2014 16:50:00 05/20/2014 11:50:00 DIS Inpatient RUSTAM CALI DO [facility] CSD PULMONARY EDEMA; FEVER [id number] 05/07/2014 08:28:00 05/07/2014 23:59:59 CLS Outpatient PRANEETH SHUKLA MD [facility] RAD OSTEOPOROSIS [id number] 04/06/2014 13:48:00 04/06/2014 23:59:59 CLS Outpatient RUSTAM CALI DO [facility] RAD LUMBAGO [id number] 03/04/2014 14:12:00 03/04/2014 23:59:59 CLS Outpatient [id number] 02/27/2014 09:13:00 02/27/2014 23:59:59 CLS Outpatient RUSTAM CALI DO [facility] RAD CHEST PAIN [id number] 02/09/2014 15:46:00 02/10/2014 10:00:00 DIS Inpatient RUSTAM CALI DO [facility] 4TH COPD EXACERBATION; RECENT PNEUMONIA [id number] 01/30/2014 10:32:00 01/30/2014 23:59:59 CLS Outpatient RUSTAM CALI DO [facility] RAD PNEUMONIA [id number] 01/18/2014 22:16:00 01/19/2014 00:50:00 DIS Emergency NORBERTO SARAVIA [facility] ER SORE THROAT CONGESTION FEVER [id number] 01/08/2014 12:03:00 01/08/2014 23:59:59 CLS Outpatient RUSTAM CALI DO [facility] RAD LLQ PAIN,WEIGHT LOSS [id number] 12/01/2013 09:18:00 12/01/2013 23:59:59 CLS Outpatient RUSTAM CALI DO [facility] RAD WT LOSS [id number] 11/17/2013 14:47:00 11/17/2013 23:59:59 CLS Outpatient KARI MILLER MD [facility] RAD RT RENAL CYST [id number] 11/17/2013 07:54:00 11/17/2013 23:59:59 CLS Outpatient THANH VELÁSQUEZ [facility] CARD CAD,CHF,HTN [id number] 03/24/2013 07:28:00 03/27/2013 12:00:00 DIS Inpatient LIBBY HERNÁNDEZ, ROJAS Quinonez [facility] SURGICAL LEFT INGUINAL HERNIA /FEMORAL HERNIA [id number] 07/21/2014 12:47:00 Document Registration [id number] 07/21/2014 12:47:00 Document Registration [id number] 07/21/2014 12:47:00 Document Registration [id number] 11/04/2012 10:58:00 Document Registration [id number] 07/23/2012 08:40:00 Document Registration [id number] 05/07/2012 11:45:00 Document Registration [id number] 02/29/2012 12:21:00 Document Registration [id number] 01/04/2012 09:06:00 Document Registration [id number] 10/05/2011 09:45:00 Document Registration [id number] 07/05/2011 16:26:00 Document Registration [id number] 06/28/2011 09:30:00 Document Registration [id number] 04/19/2011 05:35:00 Document Registration [id number] 04/13/2011 13:31:00 Document Registration [id number] 12/15/2010 12:53:00 Document Registration [id number] 11/28/2010 08:44:00 Document Registration [id number] 10/10/2010 07:33:00 Document Registration [id number] 04/04/2010 20:32:00 Document Registration [id number] 12/17/2009 10:27:00 Document Registration [id number] 11/15/2009 09:29:00 Document Registration [id number] 10/21/2009 10:12:00 Document Registration
[2017-10-29] MEDS ORDERED: ONDANSETRON 4 MG/2 ML (SDV) Z0FRAN IVP ONE (17:15)
[2017-10-29] MEDS ORDERED: NS IV 500 ML 500 ML IV SCH (17:15)
--- NOTE | 2017-10-29 17:22 | ED GI ---
General Chief Complaint: Abdominal/GI Problems Stated Complaint: WEAK;NAUSEA Source of Information: Patient, Family Exam Limitations: No Limitations History of Present Illness Date Seen by Provider: Oct 29, 2017 Time Seen by Provider: 17:19 Initial Comments To ER with c/o weakness, nausea, Vomiting, epigastric discomfort x2-3 days. Minimal urine output yesterday and none today. History of CHF and is on furosemide. Denies diarrhea, fevers, or chills. Called her PCP Dr Prabhakar today who felt she should be admitted so she was referred to ER for evaluation. Timing/Duration: 2-3 Days Severity/Quality: Moderate Location: Epigastric Radiation: No Radiation Associated Symptoms: No Fever/Chills, Nausea/Vomiting Allergies and Home Medications Allergies Coded Allergies: NKANo Known Allergies (Verified Allergy, Unknown, 11/14/05) Home Medications Digoxin 125 Mcg Tablet, 125 MCG PO DAILY, (Reported) Furosemide 40 Mg Tablet, 40 MG PO BID, (Reported) Guaifenesin 600 Mg Tab.er.12h, 600 MG PO BID PRN for CONGESTION, (Reported) Isosorbide Mononitrate 30 Mg Tab.er.24h, 15 MG PO DAILY, (Reported) TAKES 1/2 (30MG) TABLET Levothyroxine Sodium 100 Mcg Tablet, 100 MCG PO DAILY, (Reported) Loratadine 10 Mg Tablet, 10 MG PO DAILY, (Reported) Meclizine HCl 25 Mg Tablet, 25 MG PO TID PRN for DIZZINESS, (Reported) Metolazone 2.5 Mg Tablet, 2.5 MG PO 1 tab on Sun and Sun Take one tab on Mondays and Fridays, additional tab as needed. Prescribed by: BRIANDA ROY on 08/13/17 1347 Metoprolol Succinate 50 Mg Tab.er.24h, 50 MG PO DAILY, (Reported) Mexiletine HCl 150 Mg Cap, 150 MG PO DAILY, (Reported) Nitroglycerin 0.4 Mg Tab.subl, 0.4 MG SL UD PRN for CHEST PAIN, (Reported) Pantoprazole Sodium 40 Mg Tablet.dr, 40 MG PO DAILY, (Reported) Potassium Chloride 10 Meq Capsule.er, 10 MEQ PO HS, (Reported) Ropinirole HCl 0.5 Mg Tablet, 0.5 MG PO HS, (Reported) Ropinirole HCl 0.5 Mg Tablet, 0.5 MG PO BID PRN for RESTLESS LEGS, (Reported) Sacubitril/Valsartan 1 Each Tablet, 1 TAB PO BID, (Reported) Tramadol HCl 50 Mg Tablet, 50 MG PO Q6H PRN for PAIN-MODERATE, (Reported) Warfarin Sodium 2 Mg Tablet, 2 MG PO MoWe, (Reported) Warfarin Sodium 2 Mg Tablet, 4 MG PO SuTuThFrSa, (Reported) TAKES 2 (2MG) TABLETS Review of Systems Constitutional: see HPI EENTM: No Symptoms Reported Respiratory: No Symptoms Reported Cardiovascular: No Symptoms Reported Gastrointestinal: See HPI, Abdominal Pain, Nausea, Denies Vomiting Genitourinary: No Symptoms Reported Musculoskeletal: no symptoms reported Skin: no symptoms reported Psychiatric/Neurological: No Symptoms Reported Endocrine: No Symptoms Reported Hematologic/Lymphatic: No Symptoms Reported Past Fedbala-Vweqpj-Tzpvzp Hx Patient Social History Alcohol Use: Denies Use Recreational Drug Use: No Smoking Status: Never a Smoker Recent Foreign Travel: No Contact w/Someone Who Travel: No Recent Hopitalizations: Yes Physical Abuse: No Sexual Abuse: No Mistreated: No Fear: No Immunizations Up To Date Tetanus Booster (TDap): Unknown PED Vaccines UTD: No Date of Pneumonia Vaccine: May 31, 2015 Date of Influenza Vaccine: May 16, 2017 Seasonal Allergies Seasonal Allergies: No Surgeries History of Surgeries: Yes Surgeries: Defibrillator, Gallbladder, Pacemaker Respiratory History of Respiratory Disorde: Yes (PHTN) Respiratory Disorders: Pneumonia Cardiovascular History of Cardiac Disorders: Yes (MITRAL VALVE STENOSIS, AORTIC VALVE REPLACEMENT 99') Cardiac Disorders: Chronic Edema/Swelling, Coronary Artery Disease, Hypertension, Valvular Heart Disease Neurological History of Neurological Disord: Yes Neurological Disorders: Dementia Reproductive System Hx Reproductive Disorders: No Sexually Transmitted Disease: No HIV/AIDS: No Genitourinary History of Genitourinary Disor: No Gastrointestinal History of Gastrointestinal Di: No Gastrointestinal Disorders: Gall Bladder Disease Musculoskeletal History of Musculoskeletal Dis: Yes (OSTEOARTHRITIS) Musculoskeletal Disorders: Arthritis Endocrine History of Endocrine Disorders: Yes Endocrine Disorders: Hypothyroidsim HEENT HEENT Disorders: Cataract Loss of Vision: Denies Hearing Impairment: Denies Cancer History of Cancer: No Psychosocial History of Psychiatric Problem: No Suicide Risk Score: 0 Integumentary History of Skin or Integumenta: Yes (RIGHT LEG PAIGE ULCER) Blood Transfusions History of Blood Disorders: No Adverse Reaction to a Blood Tr: No Family Medical History Significant Family History: No Pertinent Family Hx Family Medial History: Family history: Diabetes mellitus 19 MOTHER Heart disease 19 MOTHER History of - respiratory disease 19 FATHER (PNEUMONIA- IN HIS 20'S) Myocardial infarction 19 MOTHER No Family History of: Abdominal aortic aneurysm Maynor's disease Alcoholism Aphasia Cancer Cancer of colon Cataract Chest pain Congenital heart disease Congestive heart failure Cystic fibrosis Dementia Dysphagia Family history: Allergy Family history: Alzheimer's disease Family history: Arthritis Family history: Asthma Family history: Breast disease Family history: Cardiovascular disease Family history: Coronary thrombosis Family history: Gastrointestinal disease Family history: Glaucoma Family history: Hypertension Family history: Osteoporosis Family history: Thyroid disorder Headache Hearing loss Hereditary disease History of - anemia History of - disorder History of drug abuse Human immunodeficiency virus (HIV) seropositivity Hypercholesterolemia Infertile Kidney disease Parkinson's disease Prostate cancer Psychotic disorder Seizure disorder Stroke Tuberculosis Visual impairment Physical Exam Vital Signs VS - Last 72 Hours, by Label 10/29/17 17:08 Temp 97.5 Pulse 85 Resp 18 B/P (MAP) 92/48 (63) Pulse Ox 98 O2 Delivery Room Air Capillary Refill : General Appearance: WD/WN, no apparent distress HEENT: PERRL/EOMI, normal ENT inspection Neck: non-tender, full range of motion Respiratory: normal breath sounds, no respiratory distress, no accessory muscle use Cardiovascular: regular rate, rhythm, no murmur Gastrointestinal: normal bowel sounds, soft, tenderness (epigastric) Extremities: normal range of motion, non-tender, other (Dressing over left ankle. Pt reports a venous ulcer medial left ankle dressed every other day ( yesterday most recently) and sees Dr lopez from wound care. I did not undress this. ) Neurologic/Psychiatric: alert, normal mood/affect, oriented x 3 Skin: normal color, warm/dry Progress/Results/Core Measures Results/Orders Lab Results Laboratory Tests Test 10/29/17 17:18 10/29/17 18:23 Range/Units White Blood Count 6.8 4.3-11.0 10^3/uL Red Blood Count 4.13 L 4.35-5.85 10^6/uL Hemoglobin 13.5 11.5-16.0 G/DL Hematocrit 41 35-52 % Mean Corpuscular Volume 99 80-99 FL Mean Corpuscular Hemoglobin 33 25-34 PG Mean Corpuscular Hemoglobin Concent 33 32-36 G/DL Red Cell Distribution Width 13.9 10.0-14.5 % Platelet Count 179 130-400 10^3/uL Mean Platelet Volume 10.7 H 7.4-10.4 FL Neutrophils (%) (Auto) 64 42-75 % Lymphocytes (%) (Auto) 20 12-44 % Monocytes (%) (Auto) 13 H 0-12 % Eosinophils (%) (Auto) 2 0-10 % Basophils (%) (Auto) 1 0-10 % Neutrophils # (Auto) 4.3 1.8-7.8 X 10^3 Lymphocytes # (Auto) 1.4 1.0-4.0 X 10^3 Monocytes # (Auto) 0.9 0.0-1.0 X 10^3 Eosinophils # (Auto) 0.1 0.0-0.3 10^3/uL Basophils # (Auto) 0.1 0.0-0.1 10^3/uL Prothrombin Time 58.6 *H 12.2-14.7 SEC INR Comment 6.9 *H 0.8-1.4 Sodium Level 138 135-145 MMOL/L Potassium Level 3.9 3.6-5.0 MMOL/L Chloride Level 90 L 98-107 MMOL/L Carbon Dioxide Level 32 21-32 MMOL/L Anion Gap 16 H 5-14 MMOL/L Blood Urea Nitrogen 64 H 7-18 MG/DL Creatinine 2.43 H 0.60-1.30 MG/DL Estimat Glomerular Filtration Rate 19 BUN/Creatinine Ratio 26 Glucose Level 99 70-105 MG/DL Calcium Level 10.5 H 8.5-10.1 MG/DL Magnesium Level 2.2 1.8-2.4 MG/DL Total Bilirubin 0.9 0.1-1.0 MG/DL Aspartate Amino Transf (AST/SGOT) 18 5-34 U/L Alanine Aminotransferase (ALT/SGPT) 9 0-55 U/L Alkaline Phosphatase 74 40-136 U/L B-Type Natriuretic Peptide 400.2 H <100.0 PG/ML Total Protein 8.3 H 6.4-8.2 GM/DL Albumin 4.2 3.2-4.5 GM/DL Lipase 15 8-78 U/L Urine Color YELLOW Urine Clarity CLEAR Urine pH 6.5 5-9 Urine Specific [place] 1.010 L 1.016-1.022 Urine Protein 1+ H NEGATIVE Urine Glucose (UA) NEGATIVE NEGATIVE Urine Ketones NEGATIVE NEGATIVE Urine Nitrite NEGATIVE NEGATIVE Urine Bilirubin NEGATIVE NEGATIVE Urine Urobilinogen NORMAL NORMAL MG/DL Urine Leukocyte Esterase 2+ H NEGATIVE Urine RBC (Auto) 4+ H NEGATIVE Urine RBC 5-10 H /HPF Urine WBC 2-5 /HPF Urine Squamous Epithelial Cells NONE /HPF Urine Crystals NONE /LPF Urine Bacteria NEGATIVE /HPF Urine Casts PRESENT /LPF Urine Hyaline Casts 0-2 H /LPF Urine Mucus NEGATIVE /LPF Urine Culture Indicated NO My Orders Orders - KENRICK CERDA APRN Cbc With Automated Diff (10/29/17 17:13) Comprehensive Metabolic Panel (10/29/17 17:13) Magnesium (10/29/17 17:13) BNP (10/29/17 17:13) Saline Lock/Iv-Start (10/29/17 17:13) Ua Culture If Indicated (10/29/17 17:13) Ekg Tracing (10/29/17 17:13) Chest 1 View, Ap/Pa Only (10/29/17 17:13) Ns Iv 500 Ml (Sodium Chloride 0.9%) (10/29/17 17:15) Ondansetron Injection (Zofran Injectio (10/29/17 17:15) Lipase (10/29/17 17:13) Protime With Inr (10/29/17 17:18) Ct Abdomen/Pelvis Wo (10/29/17 17:51) Digoxin (10/29/17 18:51) Medications Given in ED Current Medications Medications Dose Ordered Sig/Sam Route Start Time Stop Time Status Last Admin Dose Admin Ondansetron HCl 4 mg ONCE ONCE IVP 10/29/17 17:15 10/29/17 17:16 DC 10/29/17 17:26 4 MG Vital Signs/I&O Vital Sign - Last 12Hours 10/29/17 17:08 Temp 97.5 Pulse 85 Resp 18 B/P (MAP) 92/48 (63) Pulse Ox 98 O2 Delivery Room Air Diagnostic Imaging Diagonstic Imaging: Xray Plain Films/CT/US/NM/MRI: chest Comments NAME: KATHY ELLIS [facility] REC#: [id number] PT STATUS: REG ER : 1935 PHYSICIAN: KENRICK CERDA APRN ADMIT DATE: 10/29/17/ER Draft Date of Exam:10/29/17 CHEST 1 VIEW, AP/PA ONLY INDICATION: Weakness and decreased urine output. Frontal chest obtained at 5:22 p.m. and compared to 08/07/2017. FINDINGS: There is poststernotomy change with unchanged pacemaker device. There is marked cardiomegaly again noted. There is some central vascular congestion although it has improved compared to the prior study. There is improvement in bibasilar infiltrates compared to the prior study. There is calcified granuloma in the right base. There is no pneumothorax or significant pleural fluid. There is resolution of the small bilateral pleural effusions compared to the prior study. IMPRESSION: Overall improvement. There is marked cardiomegaly again noted with postoperative change. There is improvement in central vascular congestion and edema compared to the prior study. There is improvement in bibasilar infiltrate compared to the prior study with resolution of bilateral pleural effusions. Dictated on workstation # [id number] Dict: 10/29/17 1727 Trans: 10/29/17 1740 [id number] Interpreted by: AYO ROMERO MD Electronically signed by: NAME: KATHY ELLIS [facility] REC#: [id number] PT STATUS: REG ER : 1935 PHYSICIAN: KENRICK CERDA APRN ADMIT DATE: 10/29/17/ER Draft Date of Exam:10/29/17 CT ABDOMEN/PELVIS WO INDICATION: Abdominal pain and anuria. EXAM: CT of the abdomen and pelvis obtained without IV contrast. COMPARISON: 01/08/2014 FINDINGS: The visualized portion of the lung bases demonstrate marked cardiomegaly with valve replacements. There is no significant pleural fluid. The lung bases show no infiltrates. There is no free intraperitoneal air. The liver shows no focal lesion without contrast. The gallbladder is absent. The spleen is unremarkable. The adrenals and pancreas appear normal. The kidneys bilaterally showed no radiopaque calculi or hydronephrosis. The retroperitoneum shows no significant adenopathy. There is atherosclerotic calcification of the aorta and iliac vessels. There is mild ectasia of the abdominal aorta measuring about 2.6 cm in diameter. There is no evidence of abscess. There is a small amount of free fluid in the pelvis. There are uncomplicated colonic diverticula. There is no overt bowel obstruction. IMPRESSION: Marked cardiomegaly again noted. Atherosclerotic calcifications of the aorta and iliac vessels with mild ectasia of the aorta. No abdominal mass. There is no hydronephrosis or renal stone. There is a small amount of free fluid in the pelvis. There is uncomplicated sigmoid diverticulosis. There is no sign of bowel obstruction or focal bowel wall thickening. Dictated on workstation # [id number] Dict: 10/29/17 1826 Trans: 10/29/17 1835 [facility] [id number] Interpreted by: AYO ROMERO MD Electronically signed by: Departure Communication (Admissions) Time/Spoke to Admitting Phy: 19:14 Communication I did discuss the case with Dr. Walker. We will admit the patient, she received a 500 mL bolus of fluids in the emergency room. We will continue with normal saline at 100 mL an hour on the floor to hydrate her and very cautious with her history of congestive heart failure. She does wish to be a full CODE STATUS. Impression Impression: Primary Impression: Nausea and vomiting Additional Impressions: Volume depletion Supratherapeutic INR Disposition: ADMITTED INPATIENT Condition: Stable Admissions Decision to Admit Reason: Admit from ER (General) Decision to Admit/Date: Oct 29, 2017 Time/Decision to Admit Time: 18:41 Departure-Patient Inst. Referrals: RUSTAM PRABHAKAR DO (PCP/Family) Primary Care Physician KENRICK CERDA APRN Oct 29, 2017 17:22
[2017-10-29 17:31] LABS: BASOPHILS # (AUTO) 0.1 10^3/uL (0.0-0.1); BASOPHILS % (AUTO) 1 % (0-10); EOSINOPHILS # (AUTO) 0.1 10^3/uL (0.0-0.3); EOSINOPHILS % (AUTO) 2 % (0-10); HEMATOCRIT 41 % (35-52); HEMOGLOBIN 13.5 G/DL (11.5-16.0); LYMPHOCYTES # (AUTO) 1.4 X 10^3 (1.0-4.0); LYMPHOCYTES % (AUTO) 20 % (12-44); MEAN CORPUSCULAR HEMOGLOBIN 33 PG (25-34); MEAN CORPUSCULAR HGB CONC 33 G/DL (32-36); MEAN CORPUSCULAR VOLUME 99 FL (80-99); MEAN PLATELET VOLUME 10.7 FL (7.4-10.4); MONOCYTES # (AUTO) 0.9 X 10^3 (0.0-1.0); MONOCYTES % (AUTO) 13 % (0-12); NEUTROPHILS # (AUTO) 4.3 X 10^3 (1.8-7.8); NEUTROPHILS % (AUTO) 64 % (42-75); PLATELET COUNT 179 10^3/uL (130-400); RED BLOOD COUNT 4.13 10^6/uL (4.35-5.85); RED CELL DISTRIBUTION WIDTH 13.9 % (10.0-14.5); WHITE BLOOD COUNT 6.8 10^3/uL (4.3-11.0)
--- NOTE | 2017-10-29 17:41 | Diagnostic Imaging Report ---
INDICATION: Weakness and decreased urine output. Frontal chest obtained at 5:22 p.m. and compared to 08/07/2017. FINDINGS: There is poststernotomy change with unchanged pacemaker device. There is marked cardiomegaly again noted. There is some central vascular congestion although it has improved compared to the prior study. There is improvement in bibasilar infiltrates compared to the prior study. There is calcified granuloma in the right base. There is no pneumothorax or significant pleural fluid. There is resolution of the small bilateral pleural effusions compared to the prior study. IMPRESSION: Overall improvement. There is marked cardiomegaly again noted with postoperative change. There is improvement in central vascular congestion and edema compared to the prior study. There is improvement in bibasilar infiltrate compared to the prior study with resolution of bilateral pleural effusions. Dictated by: Dictated on workstation # [id number]
[2017-10-29 17:43] LABS: INR 6.9 (0.8-1.4); PROTHROMBIN TIME PATIENT 58.6 SEC (12.2-14.7)
[2017-10-29 17:51] LABS: ALBUMIN 4.2 GM/DL (3.2-4.5); BILIRUBIN,TOTAL 0.9 MG/DL (0.1-1.0); CALCIUM 10.5 MG/DL (8.5-10.1); CREATININE SERUM 2.43 MG/DL (0.60-1.30); MAGNESIUM 2.2 MG/DL (1.8-2.4); POTASSIUM 3.9 MMOL/L (3.6-5.0); TOTAL PROTEIN 8.3 GM/DL (6.4-8.2)
[2017-10-29 18:32] LABS: BILIRUBIN,URINE NEGATIVE (NEGATIVE); CLARITY,URINE CLEAR; COLOR,URINE YELLOW; GLUCOSE, URINE (UA) NEGATIVE (NEGATIVE); KETONES,URINE NEGATIVE (NEGATIVE); LEUKOCYTE ESTERASE ,URINE 2+ (NEGATIVE); NITRITE,URINE NEGATIVE (NEGATIVE); PH,URINE 6.5 (5-9); PROTEIN,URINE 1+ (NEGATIVE); UROBILINOGEN,URINE NORMAL (NORMAL)
--- NOTE | 2017-10-29 18:35 | Diagnostic Imaging Report ---
INDICATION: Abdominal pain and anuria. EXAM: CT of the abdomen and pelvis obtained without IV contrast. COMPARISON: 01/08/2014 FINDINGS: The visualized portion of the lung bases demonstrate marked cardiomegaly with valve replacements. There is no significant pleural fluid. The lung bases show no infiltrates. There is no free intraperitoneal air. The liver shows no focal lesion without contrast. The gallbladder is absent. The spleen is unremarkable. The adrenals and pancreas appear normal. The kidneys bilaterally showed no radiopaque calculi or hydronephrosis. The retroperitoneum shows no significant adenopathy. There is atherosclerotic calcification of the aorta and iliac vessels. There is mild ectasia of the abdominal aorta measuring about 2.6 cm in diameter. There is no evidence of abscess. There is a small amount of free fluid in the pelvis. There are uncomplicated colonic diverticula. There is no overt bowel obstruction. IMPRESSION: Marked cardiomegaly again noted. Atherosclerotic calcifications of the aorta and iliac vessels with mild ectasia of the aorta. No abdominal mass. There is no hydronephrosis or renal stone. There is a small amount of free fluid in the pelvis. There is uncomplicated sigmoid diverticulosis. There is no sign of bowel obstruction or focal bowel wall thickening. Dictated by: Dictated on workstation # [id number]
[2017-10-29 18:47] LABS: BACTERIA,URINE NEGATIVE /HPF; HYALINE CASTS, URINE 0-2 /LPF
[2017-10-29 19:55] VITALS: BP 100/59
[2017-10-29] MEDS ORDERED: ONDANSETRON 4 MG/2 ML (SDV) Z0FRAN IV PRN (20:00)
[2017-10-29] MEDS ORDERED: CATHETER FLUSH 10 ML SYR IV PRN (20:00)
[2017-10-29] MEDS: NS IV 1000 ML 1,000 ML IV SCH (20:08)
[2017-10-30] VITALS (7 sets, daily range): BP systolic 94–122; BP diastolic 50–62
[2017-10-30] MEDS: NS IV 1000 ML 1,000 ML IV SCH ×2 (06:15→16:58)
[2017-10-30 06:42] LABS: CALCIUM 8.9 MG/DL (8.5-10.1); CREATININE SERUM 1.65 MG/DL (0.60-1.30); POTASSIUM 3.3 MMOL/L (3.6-5.0)
[2017-10-30 06:43] LABS: PROTHROMBIN TIME PATIENT 59.2 SEC (12.2-14.7)
[2017-10-30] MEDS ORDERED: INFLUENZA TRIvalent 2017-2018 0.5 ML/45 MCG SYR IM ONE (07:15)
[2017-10-30] MEDS ORDERED: NF-MEXI150 PO (10:38)
[2017-10-30] MEDS ORDERED: POTA10CA68 PO (10:40)
[2017-10-30] MEDS ORDERED: ROPI0.5T2 PO (10:40)
[2017-10-30] MEDS ORDERED: DOXY100C2 PO (10:43)
[2017-10-30] MEDS ORDERED: NITROGLYCERIN 0.4 MG SL TABS BTL 25'S SL PRN (12:00)
[2017-10-30] MEDS ORDERED: RX-TRAMADOL 50 MG (ULTRAM) TAB PPK#4 PO PRN (12:00)
[2017-10-30] MEDS ORDERED: guaiFENesin (MUCINEX) 600 MG TAB PO PRN (12:00)
[2017-10-30] MEDS ORDERED: MECLIZINE 25 MG (ANTIVERT) TAB PO PRN (12:15)
--- NOTE | 2017-10-30 14:39 | Progress Note-Hospitalist ---
Standard Progress Note Progress Notes/Assess & Plan Date Seen 10/30/17 Time Seen by Provider: 14:30 Assess & Plan/Chief Complaint The patient is an 82-year-old white female known to me. She reports that she had become progressively weaker over the last 2-3 days. When asked about vomiting she reported that this was mostly dry heaves. When asked about diarrhea she stated now however a family member in the room stated that she had had diarrhea yesterday. Because of the nausea she had not been taking fluids well. She has inoperable valvular heart disease. She has a history of congestive heart failure and had continued to take her blood pressure medicines. Her creatinine has improved from 2.43 TO 1.65 today. Physical exam showed an elderly white female. Lungs were clear to auscultation. CV was regular. Ankles show no pedal edema. Impression: Dehydration. 2.acute renal failure. 3.valvular heart disease, inoperable. 4.supratherapeutic INR Plan: Continue IV fluids. Hold blood pressure medications. Resume diet. Labs Laboratory Tests 10/29/17 17:18 10/30/17 06:06 URBAN FRIEDMAN MD Oct 30, 2017 14:39
[2017-10-30] MEDS ORDERED: KCL 20 MEQ TAB (K-DUR) PO NR (14:45)
--- NOTE | 2017-10-30 14:48 | History & Physical-Hospitalist ---
HPI History of Present Illness: HPI/Chief Complaint The patient is an 82-year-old white female known to me. She is had multiple previous visits as a consequence of end-stage valvular heart disease and subsequent congestive heart failure. She has been deemed to be acceptable as an operative candidate. She reports that for 2 days prior to admission she had had dry heaves and was poorly able to eat or drink. She presented to the emergency room and was noted to be hypotensive and with an elevation in her creatinine over the baseline. This would be consistent with dehydration. She was started on a cautious rehydration program. She has had no further vomiting and no diarrhea since admission. Source: patient, family Exam Limitations: no limitations Date Seen 10/30/17 Time Seen by Provider: 14:45 Attending Physician Brenda Walker MD PCP Jake Prabhakar DO Referring Physician Date of Admission Oct 29, 2017 at 18:52 Home Medications & Allergies Home Medications Reviewed patient Home Medication Reconciliation Form Allergies Allergies Coded Allergies NKANo Known Allergies (Verified Allergy, Unknown, 11/14/05) Past Gzrkvvl-Orxdsl-Depchq Hx Patient Social History Alcohol Use: Denies Use Recreational Drug Use: No Smoking Status: Never a Smoker Physical Abuse Screen: No Sexual Abuse: No Recent Foreign Travel: No Contact w/other who traveled: No Recent Hopitalizations: Yes Recent Infectious Disease Expo: No Immunizations Up To Date Tetanus Booster (TDap): Unknown Pediatric: Yes Date of Pneumonia Vaccine: May 31, 2015 Date of Influenza Vaccine: Jul 04, 2017 Seasonal Allergies Seasonal Allergies: Yes ("Summertime") Surgeries Yes (aortic valve replacement, PACEMAKER) Defibrillator, Gallbladder, Pacemaker Respiratory Yes (PHTN) Currently Using CPAP: No Currently Using BIPAP: No Cardiovascular Yes (MITRAL VALVE STENOSIS, AORTIC VALVE REPLACEMENT ', PACEMAKER, DEFIBRILLAT ) Chronic Edema/Swelling, Coronary Artery Disease, Hypertension, Valvular Heart Disease Neurological Yes Dementia Reproductive System : No Hx Reproductive Disorders: No Sexually Transmitted Disease: No HIV/AIDS: No Genitourinary No Gastrointestinal Yes Gall Bladder Disease Musculoskeletal Yes (OSTEOARTHRITIS) Arthritis Endocrine History of Endocrine Disorders: No Endocrine Disorders: Hypothyroidsim HEENT History of HEENT Disorders: Yes HEENT Disorders: Cataract Loss of Vision: Denies Hearing Impairment: Denies Cancer No Psychosocial History of Psychiatric Problem: No Integumentary History of Skin or Integumenta: Yes (RIGHT LEG PAIGE ULCER) Blood Transfusions History of Blood Disorders: No Adverse Reaction to a Blood Tr: No Family Medical History Significant Family History: No Pertinent Family Hx Family Hx: Family history: Diabetes mellitus 19 MOTHER Heart disease 19 MOTHER History of - respiratory disease 19 FATHER (PNEUMONIA- IN HIS 20'S) Myocardial infarction 19 MOTHER No Family History of: Abdominal aortic aneurysm Auglaize's disease Alcoholism Aphasia Cancer Cancer of colon Cataract Chest pain Congenital heart disease Congestive heart failure Cystic fibrosis Dementia Dysphagia Family history: Allergy Family history: Alzheimer's disease Family history: Arthritis Family history: Asthma Family history: Breast disease Family history: Cardiovascular disease Family history: Coronary thrombosis Family history: Gastrointestinal disease Family history: Glaucoma Family history: Hypertension Family history: Osteoporosis Family history: Thyroid disorder Headache Hearing loss Hereditary disease History of - anemia History of - disorder History of drug abuse Human immunodeficiency virus (HIV) seropositivity Hypercholesterolemia Infertile Kidney disease Parkinson's disease Prostate cancer Psychotic disorder Seizure disorder Stroke Tuberculosis Visual impairment Review of Systems Constitutional: see HPI EENTM: no symptoms reported Respiratory: no symptoms reported Cardiovascular: no symptoms reported Gastrointestinal: diarrhea, nausea, vomiting Genitourinary: no symptoms reported, decreased output Musculoskeletal: no symptoms reported Skin: no symptoms reported Psychiatric/Neurological: No Symptoms Reported Physical Exam Physical Exam Vital Signs Vital Signs - First Documented 10/29/17 17:08 Temp 97.5 Pulse 85 Resp 18 B/P (MAP) 92/48 (63) Pulse Ox 98 O2 Delivery Room Air Capillary Refill : Less Than 3 Seconds General Appearance: Mild Distress Eyes: Bilateral Eye Normal Inspection HEENT: Normal ENT Inspection Neck: Normal Inspection Respiratory: Lungs Clear, Normal Breath Sounds, No Accessory Muscle Use, No Respiratory Distress Cardiovascular: Regular Rate, Rhythm Gastrointestinal: Normal Bowel Sounds, No Organomegaly, No Pulsatile Mass, Non Tender, Soft Extremity: Normal Capillary Refill, Normal Inspection, Normal Range of Motion, Non Tender, No Calf Tenderness, No Pedal Edema Neurologic/Psychiatric: Alert, Oriented x3, No Motor/Sensory Deficits, Normal Mood/Affect Skin: Normal Color, Warm/Dry Lymphatic: No Adenopathy Results Results/Procedures Lab Laboratory Tests 10/29/17 17:18 10/30/17 06:06 Assessment/Plan Admission Diagnosis Dehydration secondary to reduced intake and use of furosemide as a diuretic. 2.valvular heart disease. 3.hypertension by history. Admission Status: Inpatient Order (span 2 midnights) Reason for Inpatient Admission: Fragile patient with valvular heart disease and dehydration/acute renal failure. Clinical Quality Measures DVT/VTE Risk/Contraindication: Risk Factor Score Per Nursin RFS Level Per Nursing on Admit: 4+=Very High URBAN FRIEDMAN MD Oct 30, 2017 14:48
[2017-10-30] MEDS: FUROSEMIDE 40 MG (LASIX) TAB PO SCH (17:48)
[2017-10-30] MEDS: SACUBITRIL/VALSARTAN 24/26 MG (ENTRESTO) TABLET PO SCH (22:14)
[2017-10-31] VITALS: BP 110/55
[2017-10-31 03:18] VITALS: BP 112/54
[2017-10-31] MEDS: NS IV 1000 ML 1,000 ML IV SCH ×2 (04:24→14:44)
[2017-10-31] MEDS: FUROSEMIDE 40 MG (LASIX) TAB PO SCH (06:13)
[2017-10-31] MEDS ORDERED: LEVOTHYROXINE 100 MCG (LEVOTHROID) TAB PO SCH (06:30)
[2017-10-31] MEDS ORDERED: PANTOPRAZOLE 40 MG (PROTONIX) TAB PO SCH (07:00)
[2017-10-31] MEDS ORDERED: KCL 20 MEQ TAB (K-DUR) PO SCH (07:00)
[2017-10-31 08:00] VITALS: BP 110/62
[2017-10-31] MEDS: SACUBITRIL/VALSARTAN 24/26 MG (ENTRESTO) TABLET PO SCH (08:34)
--- NOTE | 2017-10-31 08:58 | Consultation-Cardiology ---
HPI-Cardiology Cardiology Consultation Date of Consultation 10/31/17 Date of Admission Time Seen by Provider: 08:30 Indication: Chest pain HPI Patient is a very pleasant 82 year old female well known to us with history of CHF, valvular heart disease with history of aortic valve replacement, severe mitral regurgitation, mitral stenosis, tricuspid regurgitation. Presented to the ER after being evaluated by her PCP earlier this week for N/V, dehydration. Was found to be in acute renal failure, as well as supratherapeutic INR. Has responded well to IV fluids and renal function is improving. Patient reported episode of CP earlier this morning while sitting in her chair, responded to SL nitro. Currently denies any CP or increased dyspnea. N/V has resolved. No other complaints at this time. Mrs. Scott is an 82 years old lady with history of congestive heart failure, aortic valve replacement, severe mitral regurgitation mitral valve stenosis. Presented with nausea and vomiting with dehydration and acute renal failure. This morning she had an episode of chest pain described it as tightness in the retrosternal area responded to sublingual nitroglycerin. Later on she was feeling better, ready to go home. She denied any further episode of chest pain , denied any shortness of breath, palpitation, syncope or near syncopal episodes Home Medications & Allergies Allergies: Coded Allergies: NKANo Known Allergies (Verified Allergy, Unknown, 11/14/05) Home Medication List Reviewed: Yes YME-[id number]-Ivegru Hx Patient Social History Alcohol Use: Denies Use Recreational Drug Use: No Smoking Status: Never a Smoker Recent Foreign Travel: No Recent Infectious Disease Expo: No Recent Hopitalizations: Yes Physical Abuse Screen: No Sexual Abuse: No Immunizations Up To Date Tetanus Booster (TDap): Unknown Date of Pneumonia Vaccine: May 31, 2015 Date of Influenza Vaccine: Jul 04, 2017 Past Medical History CAD, CHF, HTN, valvular heart disease, HLP Family Medical History Significant Family History: No Pertinent Family Hx Family History: Family history: Diabetes mellitus 19 MOTHER Heart disease 19 MOTHER History of - respiratory disease 19 FATHER (PNEUMONIA- IN HIS 20'S) Myocardial infarction 19 MOTHER No Family History of: Abdominal aortic aneurysm [place]'s disease Alcoholism Aphasia Cancer Cancer of colon Cataract Chest pain Congenital heart disease Congestive heart failure Cystic fibrosis Dementia Dysphagia Family history: Allergy Family history: Alzheimer's disease Family history: Arthritis Family history: Asthma Family history: Breast disease Family history: Cardiovascular disease Family history: Coronary thrombosis Family history: Gastrointestinal disease Family history: Glaucoma Family history: Hypertension Family history: Osteoporosis Family history: Thyroid disorder Headache Hearing loss Hereditary disease History of - anemia History of - disorder History of drug abuse Human immunodeficiency virus (HIV) seropositivity Hypercholesterolemia Infertile Kidney disease Parkinson's disease Prostate cancer Psychotic disorder Seizure disorder Stroke Tuberculosis Visual impairment Constitutional: No dizziness, No fever, malaise, weakness EENTM: No ear pain, No blurred vision, No double vision Respiratory: No cough, No dyspnea on exertion Cardiovascular: chest pain, edema, No palpitations Musculoskeletal: No back pain, No joint pain Skin: No lesions, No rash Psychiatric/Neurological: Denies Headache, Denies Tremors Physical Exam Vital Signs Vital Signs - First Documented 10/29/17 17:08 Temp 97.5 Pulse 85 Resp 18 B/P (MAP) 92/48 (63) Pulse Ox 98 O2 Delivery Room Air Capillary Refill : Less Than 3 Seconds General Appearance: No Apparent Distress, WD/WN, Anxious HEENT: PERRL/EOMI, Normal ENT Inspection Neck: Non Tender, Supple, Carotid Bruit Respiratory: Chest Non Tender, Decreased Breath Sounds Cardiovascular: No Gallop, Irregularly Irregular, JVD Gastrointestinal: Non Tender, Soft Rectal: Deferred Back: No CVA Tenderness Extremity: Non Tender, No Calf Tenderness Neurologic/Psychiatric: Alert, Oriented x3, baby doctor II-XII Norm as Tested Skin: Normal Color, Warm/Dry Lymphatic: No Adenopathy A/P-Cardiology Admission Diagnosis Chest pain acute renal failure supratherapeutic INR Valvular heart disease CHF Admission Status: Inpatient Order (span 2 midnights) Reason for Inpatient Admission: Fragile patient with valvular heart disease and dehydration/acute renal failure. Assessment/Plan Chest pain, nonspecific etiology, onset this morning. Patient reports improvement with SL nitroglycerin. EKG reveals paced rhythm with no acute ST changes. Will continue to monitor. Underwent stress test December 2016 revealing no ischemia or infarct. Dehydration/acute renal failure- improving. Continue to monitor renal function Supratherapeutic INR- continue to hold Coumadin. Monitor daily PT/INR. 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 Prabhakar. Echocardiogram December 2016 showed ejection fraction 30-35 percent, severely dilated left atrium, moderate severe mitral stenosis, moderate to severe mitral regurgitation, prosthetic valve in the aortic position functioning normally, PA pressure 45 mmHg done in December 2016. Coumadin currently on hold. Continue to monitor. Peripheral vascular disease most recent peripheral angiogram May 2017 showed a gradient across the SFA of 50-60 mmHg, severe stenosis at the proximal anterior tibial artery on the right side underwent balloon angioplasty using 3.0 x 80 [place] multiple inflation with mild residual stenosis, total occlusion at the ankle level and at the arch level, total occlusion of the tibioperoneal trunk with collateral filling the posterior tibial through the right anterior tibial, heavily calcified right SFA with moderate to severe stenosis with a gradient of 50-60 mmHg across the mid SFA. Diffuse disease at the left SFA, vision at the trifurcation level with collateral at the left lower extremity, diffuse atherosclerotic disease at the abdominal aorta. Was seen in our office on 10/05/17 for recurring nonhealing wound to right foot after bumping foot. Wound is slowly improving. Repeat ABIs 2017 were unchanged from ABIs in June 2017. We will continue to monitor closely. Patient does not want any intervention at this time. Congestive heart failure status post implantation of SHELL TRIM TOOL SETTER-D-D in August 2012, echocardiogram was in December 2016 showing ejection fraction 30-35 percent. Maintained on Entresto, beta jane, diuretics. Continue current medications and continue to monitor. 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 Discussed with Dr. Page in the recent past, he recommended medical therapy at this time considering her to be high risk for morbidity and mortality if she undergoes valve surgery. She is not a candidate for mitral clip secondary to her mitral stenosis she was referred back to our services for continuous following and we will contact him if needed Coronary artery disease, most recent cardiac catheterization done September 2014 revealed small vessel disease, nonobstructive disease, the prosthetic valve was functioning normally. Pulmonary artery pressure was 50/26, pulmonary capillary wedge pressure 35, right ventricular pressure 53/17. Stress test done in December 2016 showing no ischemia or infarction, EF 41 percent, continue to monitor Carotid stenosis, continue to monitor, followed by heart and vascular care. 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 followed and monitored by heart and vascular care. Hypertension-controlled,continue to monitor BP/HR. Hyperlipidemia, continue on current medication monitor lipids Thank you for allowing us to participate in the management of Ms. Mcfarland. This is Agueda Mccormick PA-C as a scribe for Dr. Parker. This is Dr. Parker, I have seen and evaluated the patient with Agueda, agree with the current scribe, patient is feeling better. Denied any active chest pain at this time, her episode of chest pain improved after sublingual nitroglycerin, had extensive history as described above. I agree with monitoring her as an outpatient. I scheduled her for an appointment in my office for next week. Okay for discharge. She was admitted with nausea and vomiting, dehydration and acute renal failure Has improved. Continue to monitor. Clinical Quality Measures DVT/VTE Risk/Contraindication: Risk Factor Score Per Nursin RFS Level Per Nursing on Admit: 4+=Very High AGUEDA LAWTON Oct 31, 2017 08:58 PRANEETH PARKER MD Oct 31, 2017 16:15
[2017-10-31] MEDS ORDERED: LORATADINE (CLARITIN) 10 MG TAB PO SCH (09:00)
[2017-10-31] MEDS ORDERED: ISOSORBIDE MONONITRATE 30 MG (IMDUR) TAB PO SCH (09:00)
[2017-10-31] MEDS ORDERED: DIGOXIN 0.125 MG (LANOXIN) TAB PO SCH (09:00)
[2017-10-31] MEDS ORDERED: meTOproloL SUCCINATE 50 MG (TOPROL XL) TAB PO SCH (09:00)
[2017-10-31 10:10] LABS: BASOPHILS % (AUTO) 1 % (0-10); EOSINOPHILS # (AUTO) 0.1 10^3/uL (0.0-0.3); EOSINOPHILS % (AUTO) 2 % (0-10); HEMATOCRIT 38 % (35-52); HEMOGLOBIN 12.2 G/DL (11.5-16.0); LYMPHOCYTES # (AUTO) 1.2 X 10^3 (1.0-4.0); LYMPHOCYTES % (AUTO) 17 % (12-44); MEAN CORPUSCULAR HEMOGLOBIN 33 PG (25-34); MEAN CORPUSCULAR HGB CONC 32 G/DL (32-36); MEAN CORPUSCULAR VOLUME 103 FL (80-99); MEAN PLATELET VOLUME 10.6 FL (7.4-10.4); MONOCYTES # (AUTO) 0.7 X 10^3 (0.0-1.0); MONOCYTES % (AUTO) 10 % (0-12); NEUTROPHILS # (AUTO) 4.9 X 10^3 (1.8-7.8); NEUTROPHILS % (AUTO) 70 % (42-75); PLATELET COUNT 139 10^3/uL (130-400); RED BLOOD COUNT 3.69 10^6/uL (4.35-5.85)
[2017-10-31 10:24] LABS: PROTHROMBIN TIME PATIENT 45.6 SEC (12.2-14.7)
[2017-10-31 10:26] LABS: CALCIUM 8.6 MG/DL (8.5-10.1); CREATININE SERUM 1.06 MG/DL (0.60-1.30); POTASSIUM 3.4 MMOL/L (3.6-5.0)
--- NOTE | 2017-10-31 11:45 | Progress Note-Hospitalist ---
Standard Progress Note Progress Notes/Assess & Plan Date Seen 10/31/17 Time Seen by Provider: 11:42 Diagnosis Dehydration secondary to reduced intake and use of furosemide as a diuretic. 2.valvular heart disease. 3.hypertension by history. Assess & Plan/Chief Complaint The patient reports that she feels much better today. Her creatinine is now 1.06. Her potassium after initiating replacement yesterday has climbed to 3.4. Her pro time/INR is 5 which is down from a peak of nearly 7. She and I agree that she is ready to go home. Physical exam: She is alert and well groomed today. Lungs are clear to auscultation. CV is regular with a metallic clinic and grade 1 murmur consistent with her prosthetic aortic valve. Abdomen is soft. Ankles show no edema. Impression: Satisfactory rehydration. Return of renal function to baseline. Improving hyper anticoagulation. Plan: Discharge. See discharge sequence for routines and medications. Labs Laboratory Tests 10/29/17 17:18 10/30/17 06:06 10/31/17 10:00 URBAN FRIEDMAN MD Oct 31, 2017 11:45
--- NOTE | 2017-10-31 11:51 | Discharge Instructions ---
Discharge Instructions Patient Instructions Patient Instructions: Medications as listed on the discharge sequence. Do not take warfarin. On Sunday you should go to Dr. Prabhakar's office in the morning for a pro time/INR. He will then instructed as to dosage of warfarin. Because of your heart valve it is imperative that go YOU go back on the warfarin Activity & Diet Discharge Diet: Coumadin Patient Diet Activity as Tolerated: Yes URBAN FRIEDMAN MD Oct 31, 2017 11:51
[2017-10-31 12:00] VITALS: BP 118/56
[2017-10-31 15:40] VITALS: BP 118/56
--- NOTE | 2017-11-01 10:59 | Physician Query Clarification ---
PQ-CHF Specificity The medical record reflects the following clinical scenario: History/Risk Factors: Hypertensive heart disease, valular heart disease Clinical Findings: EF 30-35%, BNP 400.2 Treatment: 40 mg PO Lasix Question: Can you further specify the acuity &/or type of CHF per the clinical indicators above? Please document a response below PHYSICIAN RESPONSE Acuity: Chronic Type: Other (explain below) Other, clinical findings The patient was not in heart failure at this hospitalization. She has chronic heart failure on the basis of reduced systolic function and multiple valvular disease including aortic valve with a mechanical prosthesis, mitral valve with stenosis and severe regurgitation and tricuspid with severe regurgitation. These lend of abdomen and lower extremities themselves to inferior vena cava distention and congestion In responding to this query, please exercise your independent professional judgment. The purpose of this communication is to more accurately reflect the complexity of your patients condition. The fact that a question is asked does not imply that any particular answer is desired or expected. Thank you for your timely response to this clarification. Requestors name: Erik THIS PHYSICIAN QUERY FORM IS A PERMANENT PART OF THE MEDICAL RECORD ERIK ROLLE Nov 01, 2017 10:59 URBAN FRIEDMAN MD Nov 21, 2017 14:20
--- NOTE | 2017-11-21 14:02 | Short Stay Summary-Hospitalist ---
Short Stay Diagnosis D/C Date Oct 31, 2017 at 15:40 1.dehydration secondary to diuretic and diarrhea. 2.decline in renal function secondary to number 1. 3.valvular heart disease with previous aortic valve replacement in the late Clinical Quality Measures DVT/VTE Risk/Contraindication: Risk Factor Score Per Nursin RFS Level Per Nursing on Admit: 4+=Very High URBAN FRIEDMAN MD Nov 21, 2017 14:02
== END 2017-10-31 15:40 | disposition home or self-care (01) | DRG 683 ==
LOC: EDUNIT# 16:40 → ER 16:42 → 4TH 18:52
PROVIDERS: ADMIT Family Medicine; ATTEND Family Medicine
DX: N17.9 Acute kidney failure, unspecified (principal); E86.0 Dehydration; I11.0 Hypertensive heart disease with heart failure; I50.22 Chronic systolic (congestive) heart failure; I08.1 Rheumatic disorders of both mitral and tricuspid valves; R79.1 Abnormal coagulation profile; I27.20 Pulmonary hypertension, unspecified; I25.10 Atherosclerotic heart disease of native coronary artery without angina pectoris; F03.90 Unspecified dementia, unspecified severity, without behavioral disturbance, psychotic disturbance, mood disturbance, and anxiety; E03.9 Hypothyroidism, unspecified; Z95.0 Presence of cardiac pacemaker
CPT/HCPCS: 36415; 71045; 74176; 80048; 80053; 80162; 81000; 83690; 83735; 83880; 85025; 85610; 93005; 96361; 96374

== ENCOUNTER → 2017-11-01 | Outpatient (CLI) | payer MEDICARE | LOC: WOUNDCARE 13:02 | PROVIDERS: ATTEND Nurse Practitioner | DX: L97.312 Non-pressure chronic ulcer of right ankle with fat layer exposed (principal); I87.331 Chronic venous hypertension (idiopathic) with ulcer and inflammation of right lower extremity; I70.233 Atherosclerosis of native arteries of right leg with ulceration of ankle; I70.202 Unspecified atherosclerosis of native arteries of extremities, left leg; I50.22 Chronic systolic (congestive) heart failure; S81.801A Unspecified open wound, right lower leg, initial encounter | CPT/HCPCS: 11042 ==

== ENCOUNTER → 2017-11-08 | Outpatient (CLI) | payer MEDICARE | LOC: WOUNDCARE 12:41 | PROVIDERS: ATTEND Nurse Practitioner | DX: I87.331 Chronic venous hypertension (idiopathic) with ulcer and inflammation of right lower extremity (principal); S81.801A Unspecified open wound, right lower leg, initial encounter; I70.233 Atherosclerosis of native arteries of right leg with ulceration of ankle; I70.202 Unspecified atherosclerosis of native arteries of extremities, left leg; I50.22 Chronic systolic (congestive) heart failure; L97.312 Non-pressure chronic ulcer of right ankle with fat layer exposed | CPT/HCPCS: 15275 ==

== ENCOUNTER → 2017-11-15 | Outpatient (CLI) | payer MEDICARE | LOC: WOUNDCARE 12:57 | PROVIDERS: ATTEND Nurse Practitioner | DX: I70.233 Atherosclerosis of native arteries of right leg with ulceration of ankle (principal); I87.331 Chronic venous hypertension (idiopathic) with ulcer and inflammation of right lower extremity; L97.312 Non-pressure chronic ulcer of right ankle with fat layer exposed; I70.202 Unspecified atherosclerosis of native arteries of extremities, left leg; I50.22 Chronic systolic (congestive) heart failure; S81.801A Unspecified open wound, right lower leg, initial encounter | CPT/HCPCS: 15271 ==

== ENCOUNTER → 2017-11-22 | Outpatient (CLI) | payer MEDICARE | LOC: WOUNDCARE 12:24 | PROVIDERS: ATTEND Nurse Practitioner | DX: I87.331 Chronic venous hypertension (idiopathic) with ulcer and inflammation of right lower extremity (principal); S81.801A Unspecified open wound, right lower leg, initial encounter; I70.233 Atherosclerosis of native arteries of right leg with ulceration of ankle; I70.202 Unspecified atherosclerosis of native arteries of extremities, left leg; I50.22 Chronic systolic (congestive) heart failure; L97.312 Non-pressure chronic ulcer of right ankle with fat layer exposed | CPT/HCPCS: 15271; 87070; 87075; 87101; 87205 ==

== ENCOUNTER → 2017-11-29 | Outpatient (CLI) | payer MEDICARE | LOC: WOUNDCARE 12:44 | PROVIDERS: ATTEND Nurse Practitioner | DX: L97.312 Non-pressure chronic ulcer of right ankle with fat layer exposed (principal); I87.331 Chronic venous hypertension (idiopathic) with ulcer and inflammation of right lower extremity; S81.801A Unspecified open wound, right lower leg, initial encounter; I70.233 Atherosclerosis of native arteries of right leg with ulceration of ankle; I70.202 Unspecified atherosclerosis of native arteries of extremities, left leg; I50.22 Chronic systolic (congestive) heart failure | CPT/HCPCS: 11042 ==

== ENCOUNTER 2017-12-05 06:33 | Day surgery (SDC) | payer MEDICARE ==
[~2017-12-05] VITALS: Ht 167.6 cm; Wt 59.0 kg
[2017-12-05] VITALS (19 sets, daily range): BP systolic 96–130; BP diastolic 51–81
[2017-12-05] MEDS ORDERED: LIDOCAINE 1% INJ 50 ML (XYLOCAINE) VIAL ONE (06:49)
[2017-12-05] MEDS ORDERED: HEParin (CATH LAB) 2,000 ML IV ONE (06:51)
[2017-12-05] MEDS ORDERED: NS IV 1000 ML 1,000 ML ONE (06:51)
[2017-12-05] MEDS ORDERED: NS IV 1000 ML 1,000 ML IV SCH (07:00)
--- NOTE | 2017-12-05 07:27 | Diagnostic Imaging Report ---
INDICATION: Preop. Comparison with 10/29/2017. FINDINGS: Obstructive interstitial lung disease is again noted with flattening of the diaphragm. There is cardiomegaly present. Chronic interstitial lung disease is present. No evidence of pulmonary edema. No acute infiltrates are seen. There is marked enlargement of the left atrium noted. ICD pacer present on the left, leads appearing in good position. IMPRESSION: Obstructive interstitial lung disease with cardiomegaly. No acute changes have occurred. Dictated by: Dictated on workstation # [id number]
[2017-12-05 07:29] LABS: BILIRUBIN,URINE NEGATIVE (NEGATIVE); CLARITY,URINE CLEAR; COLOR,URINE YELLOW; GLUCOSE, URINE (UA) NEGATIVE (NEGATIVE); KETONES,URINE NEGATIVE (NEGATIVE); LEUKOCYTE ESTERASE ,URINE 1+ (NEGATIVE); NITRITE,URINE NEGATIVE (NEGATIVE); PH,URINE 6 (5-9); PROTEIN,URINE 1+ (NEGATIVE); UROBILINOGEN,URINE NORMAL (NORMAL)
[2017-12-05 07:31] LABS: HEMOGLOBIN 12.2 G/DL (11.5-16.0); MEAN PLATELET VOLUME 10.3 FL (7.4-10.4); RED BLOOD COUNT 3.7 10^6/uL (4.35-5.85); RED CELL DISTRIBUTION WIDTH 13.4 % (10.0-14.5)
[2017-12-05 07:38] LABS: BACTERIA,URINE NEGATIVE /HPF; SQUAMOUS EPITHELIAL CELL,UR 0-2 /HPF
[2017-12-05] MEDS ORDERED: WARF2TAB8 PO ×2 (07:38)
[2017-12-05 07:39] LABS: HYALINE CASTS, URINE 0-2 /LPF
[2017-12-05 07:43] LABS: INR 1.7 (0.8-1.4); PROTHROMBIN TIME PATIENT 20.3 SEC (12.2-14.7)
[2017-12-05 07:54] LABS: ALBUMIN 4.3 GM/DL (3.2-4.5); BILIRUBIN,TOTAL 1.1 MG/DL (0.1-1.0); CALCIUM 9.8 MG/DL (8.5-10.1); CREATININE SERUM 1.75 MG/DL (0.60-1.30); POTASSIUM 3.5 MMOL/L (3.6-5.0); TOTAL PROTEIN 8.3 GM/DL (6.4-8.2)
[2017-12-05] MEDS ORDERED: fentaNYL INJECTION 100 MCG/2 ML AMP ONE (08:14)
[2017-12-05] MEDS ORDERED: NITRO DRIP 25000 MCG/D5W 250 ML IV ONE (08:14)
[2017-12-05] MEDS ORDERED: HEParin 1000 UNIT/ML (10ML VIAL) FOR BOLUS ONE (08:14)
[2017-12-05] MEDS ORDERED: MIDAZOLAM 5 MG/5 ML (VERSED) VIAL ONE (08:14)
--- NOTE | 2017-12-05 08:16 | Cardiac Procedure Note-CS/ASA ---
Pre-Procedure Note Pre-Op Procedure Note H&P Reviewed The H&P was reviewed, patient examined and no changes noted. Date H&P Reviewed: Dec 05, 2017 Time H&P Reviewed: 08:15 Conscious Sedation Pre-Proced Time Reviewed: 08:15 ASA Class: 3 Airway Mallampati Classification: ([place] appropriate class) I. II. III, IV Lungs Heart ASA score ASA 1: a normal healthy patient ASA 2: a patient with a mild systemic disease (mid diabetes, controlled hypertension, obesity x ASA 3: a patient with a severe systemic disease that limits activity (angina , COPD, prior Myocardial infarction) ASA 4: a patient with an incapacitating disease that is a constant threat to life (CHF, renal failure) ASA 5: a moribund patient not expected to survive 24 hrs. (ruptured aneurysm) ASA 6: a declared brain patient whose organs are being harvested. For emergent operations, add the letter E after the classification Grade 3 Sedation Plan: Analgesia, Amnesia, Plan communicated to team members, Discussed options with patient/fam, Discussed risks with patient/fam Note The patient is an appropriate candidate to undergo the planned procedure, sedation, and anesthesia. The patient immediately re-assessed prior to indication. PRANEETH SHUKLA MD Dec 05, 2017 08:16
[2017-12-05] MEDS ORDERED: ASPIRIN 325 MG (5 GR) TABLET ONE (10:05)
[2017-12-05] MEDS ORDERED: CLOPIDOGREL 300 MG (PLAVIX) TABLET PO ONE (10:07)
[2017-12-05] MEDS ORDERED: RX-TRAMADOL 50 MG (ULTRAM) TAB PPK#4 PO PRN (10:15)
[2017-12-05] MEDS ORDERED: warFARin 2 MG (COUMADIN) TAB PO SCH ×3 (10:15→18:00)
[2017-12-05] MEDS ORDERED: PATIENT MAY USE OWN MEDS, ALL PO SCH (10:15)
[2017-12-05] MEDS ORDERED: guaiFENesin (MUCINEX) 600 MG TAB PO PRN (10:15)
[2017-12-05] MEDS ORDERED: NITROGLYCERIN 0.4 MG SL TABS BTL 25'S SL PRN (10:15)
[2017-12-05] MEDS ORDERED: MECLIZINE 25 MG (ANTIVERT) TAB PO PRN ×2 (10:15→16:00)
--- NOTE | 2017-12-05 10:46 | Peripheral Report ---
Peripheral Report Physician (s)/Trim Machine Operator (s) Physician PRANEETH SHUKLA MD Pre-Procedure Diagnosis Pre-Procedure Diagnosis: nonhealing foot ulcer Post-Procedure Note Procedure Start Date: Dec 05, 2017 Name of Procedure: Abdominal aortogram Bilateral lower exudate. Third order Additional review, additional imaging Balloon angioplasty to the right SFA, right anterior tibial proximal and distal Findings/Procedure Note PROCEDURE NOTE: After explaining the procedure to the patient, all pros and cons were explained , all questions were answered. The patient signed the consent and then she was placed on the cardiac catheterization laboratory. The patient was placed on the cardiac catheterization laboratory. Groin was prepped SL fashion local anesthesia was used. Sheath placed in the left femoral artery Rim catheter was used for crossover and runoff of the right lower except he was done then a stork wire was advanced and the sheath was exchanged into 7 [place] 45 sheath, 5000 units of heparin were given Stork wire was advanced and over the wire a straight catheter was placed in the popliteal artery and angiogram to the right lower except he was done then I decided to proceed with pertains intervention, BMW wire was advanced to the distal anterior tibial, predilatation with Cadwell 3x60 followed by attempted advance of drug-coated balloon that was stuck in the mid SFA, I was unable to advance it due to heavy atherosclerotic disease, the balloon was removed and I proceed with balloon of the mid SFA using Cadwell 5x120 with good results, then I reintroduced Lutonix 4x100 to the anterior tibial artery and it was inflated for 3 minutes, the balloon was exposed for over 10 minutes prior to inserted in the patient due to the difficulty of advancing through the SFA. Angiogram showed occlusion at the distal tibial artery, I reintroduced command wire down to the digital artery then I used Cadwell 2 time 40 with multiple inflation at the ankle and foot area, exchanged the balloon into mini catheter down to the ankle and did angiogram after giving nitroglycerin, the artery is still occluded , collateral filling the end of the first digit, otherwise there is no flow in the posterior area, the catheter was pulled back to the tibial peroneal trunk and angiogram was done again, good results then I didn't runoff through the sheath again to the right lower extremity which showed good results. Sheath was exchanged into short 7 [place] sheath, rim catheter was advanced the abdominal aorta and abdominal aortogram was done Runoff through the sheath while evaluating the sheath position was done to the left lower extremities then closure device was used FINDINGS: Abdominal aortogram showed that his carotid disease with nonobstructive disease , no aneurysm, no dissection, mild iliac disease. Right lower extremity runoff: Severe disease at the anterior tibial artery at multiple segment with successful balloon angioplasty to the proximal anterior tibial artery with good results, the distal anterior tibial artery is occluded with significant recoil after balloon angioplasty as described above, collateral filling the distribution of the anterior tibial artery, no good flow to the posterior tibial artery territory. Total occlusion of the posterior tibial artery and peroneal artery. Heavily calcified SFA with balloon antiplastic of the mid SFA with good results Left lower extremity runoff: Atherosclerotic disease at the SFA with heavy calcification, [id number] disease nonobstructive disease down to the trifurcation, below the trifurcation was not well visualized. CONCLUSIONS: 1. Total occlusion of the right anterior tibial artery, balloon angioplasty to the proximal portion with significant improvement, the distal portion is occluded, balloon angioplasty was significant recoil, there are collateral filling the distal anterior tibial artery. 2. Total occlusion of the right posterior tibial artery and peroneal artery with no collateral filling that area 3. Heavily calcified right SFA with multiple segment of moderate to severe stenosis, balloon angioplasty of the mid SFA with good results 4. Atherosclerotic disease in the abdominal aorta and bilateral iliac, nonobstructive disease 5. Heavily calcified left SFA with mild to moderate disease down to the trifurcation, below the trifurcation was not well visualized DISCUSSION AND RECOMMENDATIONS: continue to maximize medical therapy, if ulcer did not improve, consideration for referral to a tertiary care center Anesthesia Type: Conscious Sedation Estimated blood loss (mL): 15 ml Contrast Amount: 32 ml Total Radiation Dose: 44mGy Post-Procedure Diagnosis Post-operative diagnosis: Nonhealing foot ulcer Peripheral arterial disease Hypertension Hyperlipidemia PRANEETH SHUKLA MD Dec 05, 2017 10:46
[2017-12-05] MEDS ORDERED: NON-FORMULARY MEDICATION 1 EA EA (Ropinirole HCl 0.5 MG) PO SCH (13:00)
[2017-12-05] MEDS ORDERED: oxyCODONE/APAP 5/325MG (PERCOCET 5) TABLET PO NR (14:00)
[2017-12-05] MEDS ORDERED: METO2.5T PO (14:36)
[2017-12-05] MEDS ORDERED: FURO40TA4 PO (14:36)
[2017-12-05] MEDS: FUROSEMIDE 40 MG (LASIX) TAB PO SCH (20:01)
[2017-12-05] MEDS: NS IV 1000 ML 1,000 ML IV SCH ×2 (20:11→20:39)
[2017-12-05] MEDS ORDERED: ROPINIROLE 0.5 MG PO PRN (21:00)
[2017-12-05] MEDS ORDERED: MEXILETINE HCL 150 MG PO SCH (21:00)
[2017-12-05] MEDS ORDERED: SACUBITRIL/VALSARTAN 24/26 MG (ENTRESTO) TABLET PO SCH (21:00)
[2017-12-05] MEDS ORDERED: rOPINIRole 0.25 MG (REQUIP) TAB PO SCH (21:00)
[2017-12-05] MEDS: SACUBITRIL/VALSARTAN 24/26 MG (ENTRESTO) TABLET PO SCH (21:03)
[2017-12-05] MEDS: MEXILETINE 150 MG (MEXITIL) CAPSULE PO SCH (21:32)
[2017-12-06] VITALS: BP 126/80
[2017-12-06 03:34] LABS: HEMOGLOBIN 10.6 G/DL (11.5-16.0); MEAN PLATELET VOLUME 10.7 FL (7.4-10.4); RED BLOOD COUNT 3.26 10^6/uL (4.35-5.85); RED CELL DISTRIBUTION WIDTH 13.4 % (10.0-14.5); WHITE BLOOD COUNT 6.7 10^3/uL (4.3-11.0)
[2017-12-06 03:49] LABS: CREATININE SERUM 1.17 MG/DL (0.60-1.30); POTASSIUM 3.2 MMOL/L (3.6-5.0)
[2017-12-06 04:00] VITALS: BP 112/49
[2017-12-06] MEDS: NS IV 1000 ML 1,000 ML IV SCH (06:10)
[2017-12-06] MEDS ORDERED: LEVOTHYROXINE 100 MCG (LEVOTHROID) TAB PO SCH (06:30)
--- NOTE | 2017-12-06 06:53 | Cardiology Progress Note ---
Subjective Date Seen by Provider: Dec 06, 2017 Time Seen by Provider: 06:50 Subjective/Events-last exam Patient is laying down in bed, complaining of flank pain, denied any chest pain or shortness of breath. Review of Systems General: No Chills, No Night Sweats, No Fatigue, No Malaise, No Appetite, No Other HEENT: No Head Aches, No Visual Changes, No Eye Pain, No Ear Pain, No Dysphasia , No Sinus Congestion, No Post Nasal Drip, No Sore Throat, No Other Pulmonary: No Dyspnea, No Cough, No Pleuritic Chest Pain, No Other Cardiovascular: No: Chest Pain, Palpitations, Orthopnea, Paroxysmal Noc. Dyspnea, Edema, Lt Headedness, Other Objective-Cardiology Exam Last Set of Vital Signs Vital Signs 12/06/17 04:00 Temp 98.0 Pulse 80 Resp 18 B/P (MAP) 112/49 (70) Pulse Ox 98 O2 Delivery Nasal Cannula O2 Flow Rate 2.00 Capillary Refill : Less Than 3 Seconds I&O Intake and Output 12/06/17 00:00 # Voids 2 # Bowel Movements 1 General: Alert, Oriented X3, Cooperative HEENT: Atraumatic, PERRLA Neck: Supple, No JVD, No Thyromegaly Lungs: Clear to Auscultation, Normal Air Movement Heart: Regular Rate, Normal S1, Normal S2, Other (Systolic murmur at the left sternal border) Abdomen: Normal Bowel Sounds, Soft, No Tenderness, No Hepatosplenomegaly, No Masses Extremities: No Clubbing, No Cyanosis, No Edema, No Tenderness/Swelling Skin: No Rashes, No Breakdown, No Significant Lesion Neuro: Normal Gait, Normal Speech, Strength at 5/5 X4 Ext, Normal Tone, Sensation Intact Psych/Mental Status: Mental Status NL, Mood NL Results Lab Laboratory Tests 12/05/17 07:20 12/06/17 03:05 A/P-Cardiology Admission Diagnosis Nonhealing foot ulcer Peripheral arterial disease Hypertension Hyperlipidemia Coronary artery disease Assessment/Plan Nonhealing foot ulcer, peripheral arterial disease, complex intervention, severe disease at the distal tibial arteries, conservative management at this point, may require amputation 1. Total occlusion of the right anterior tibial artery, balloon angioplasty to the proximal portion with significant improvement, the distal portion is occluded, balloon angioplasty was significant recoil, there are collateral filling the distal anterior tibial artery. 2. Total occlusion of the right posterior tibial artery and peroneal artery with no collateral filling that area 3. Heavily calcified right SFA with multiple segment of moderate to severe stenosis, balloon angioplasty of the mid SFA with good results 4. Atherosclerotic disease in the abdominal aorta and bilateral iliac, nonobstructive disease 5. Heavily calcified left SFA with mild to moderate disease down to the trifurcation, below the trifurcation was not well visualized Coronary artery disease, clinically stable Hypertension, continue current medication and monitor next Chronic renal insufficiency, renal function are better due to aggressive hydration. Hypokalemia receiving potassium with the Lasix today PRANEETH SHUKLA MD Dec 06, 2017 06:53
[2017-12-06] MEDS: FUROSEMIDE 40 MG (LASIX) TAB PO SCH (06:55)
[2017-12-06] MEDS ORDERED: PANTOPRAZOLE 40 MG (PROTONIX) TAB PO SCH ×2 (07:00)
[2017-12-06] MEDS ORDERED: KCL 10 MEQ TAB (MICRO K) PO SCH (07:00)
[2017-12-06] MEDS ORDERED: CLOP75TA28 PO (07:08)
--- NOTE | 2017-12-06 07:08 | Discharge Inst-Post CATH ---
Discharge Inst-CATH Post Cardiac Cath D/C Inst Follow Up/Plan Appointment with Dr. Parker's office in 2 weeks CARDIAC CATH DISCHARGE INSTRUCTIONS *Hold Metformin for 48 hours post heart cath. ACTIVITY * Go Home directly and rest. * Limit activity of the leg (or wrist if it was used) for 7 days including aerobics, swimming, jogging, bicycling, etc. * Restrict stair-climbing for 7 days if possible, if not, climb up with your non -cath leg, then bring together on the same step. * Avoid lifting, pushing, pulling or excessive movement of the affected extremity for 7 days. * Customary sexual activity may be resumed after 2 days-use caution not to use a position that strains or causes pain to the affected extremity. * No driving for 24 hours. * NO SMOKING. * Avoid straining for bowel movements for 7 days. * Gentle walking on level ground is allowed. * Returning to work will depend on the type of procedure and the results. Your doctor will discuss this with you. CALL YOUR DOCTOR FOR ANY OF THE FOLLOWING: *If bleeding from the puncture site occurs- Apply gentle pressure to site with clean cloth and call your doctor or EMS. * If a knot or lump forms under the skin, increases in size, or causes pain. * If bruising appears to be worsening or moving further down your leg instead of disappearing. * Temperature above 101 F. CARE OF YOUR GROIN INCISION; * Bruising or purple discoloration of the skin near the puncture site is common. * You may shower only, no bathtub bathing for 5 days. Be careful to avoid slipping as your leg may feel stiff. * If a closure device was used on your femoral artery, please see the attached guide regarding care of the device and your leg. * REMOVE the dressing from your groin the next day after your procedure in the shower. CARE OF YOUR WRIST INCISION; * Bruising or purple discoloration of the skin near the puncture site is common. * You may shower. * DO NOT submerge wrist. * Remove dressing in 24 hours. PRANEETH PARKER MD Dec 06, 2017 07:08
[2017-12-06 08:00] VITALS: BP 122/53
[2017-12-06] MEDS ORDERED: POTASSIUM CHLORIDE 20 MEQ PO SCH (09:00)
[2017-12-06] MEDS ORDERED: meTOproloL SUCCINATE 50 MG (TOPROL XL) TAB PO SCH (09:00)
[2017-12-06] MEDS ORDERED: ASPIRIN E.C. 81 MG (ECOTRIN) TAB PO SCH (09:00)
[2017-12-06] MEDS ORDERED: LORATADINE (CLARITIN) 10 MG TAB PO SCH (09:00)
[2017-12-06] MEDS ORDERED: ISOSORBIDE MONONITRATE 30 MG (IMDUR) TAB PO SCH (09:00)
[2017-12-06] MEDS ORDERED: DIGOXIN 0.125 MG (LANOXIN) TAB PO SCH ×2 (09:00)
[2017-12-06] MEDS ORDERED: CLOPIDOGREL 75 MG (PLAVIX) TABLET PO SCH (09:00)
[2017-12-06] MEDS: MEXILETINE 150 MG (MEXITIL) CAPSULE PO SCH (09:11)
[2017-12-06] MEDS: SACUBITRIL/VALSARTAN 24/26 MG (ENTRESTO) TABLET PO SCH (09:11)
[2017-12-06] MEDS ORDERED: warFARin 2 MG (COUMADIN) TAB PO SCH (18:00)
== END 2017-12-06 09:35 | disposition home or self-care (01) ==
LOC: CATH 06:33 → ICU 10:35 → CATH 12-06 09:35
PROVIDERS: ATTEND Internal Medicine Cardiovascular Disease
DX: I70.203 Unspecified atherosclerosis of native arteries of extremities, bilateral legs (principal); L97.519 Non-pressure chronic ulcer of other part of right foot with unspecified severity; I11.0 Hypertensive heart disease with heart failure; E78.5 Hyperlipidemia, unspecified; I71.4 Abdominal aortic aneurysm, without rupture; I25.10 Atherosclerotic heart disease of native coronary artery without angina pectoris; Z79.01 Long term (current) use of anticoagulants; Z79.899 Other long term (current) drug therapy; I50.9 Heart failure, unspecified
CPT/HCPCS: 36415; 71045; 75625; 75716; 80048; 80053; 80061; 81000; 85027; 85610; 85730; 87081; 93005

== ENCOUNTER → 2017-12-13 | Outpatient (CLI) | payer MEDICARE | LOC: WOUNDCARE 12:30 | PROVIDERS: ATTEND Nurse Practitioner | DX: S81.801A Unspecified open wound, right lower leg, initial encounter (principal); I87.331 Chronic venous hypertension (idiopathic) with ulcer and inflammation of right lower extremity; I70.233 Atherosclerosis of native arteries of right leg with ulceration of ankle; I70.202 Unspecified atherosclerosis of native arteries of extremities, left leg; I50.22 Chronic systolic (congestive) heart failure; L97.312 Non-pressure chronic ulcer of right ankle with fat layer exposed | CPT/HCPCS: 15271 ==

== ENCOUNTER → 2017-12-20 | Outpatient (CLI) | payer MEDICARE ==
[~2017-12-20] MED LIST changes: +SPIR25TA5 PO
== END ==
LOC: WOUNDCARE 12:31
PROVIDERS: ATTEND Nurse Practitioner
DX: I87.331 Chronic venous hypertension (idiopathic) with ulcer and inflammation of right lower extremity (principal); S81.801A Unspecified open wound, right lower leg, initial encounter; I70.233 Atherosclerosis of native arteries of right leg with ulceration of ankle; I70.202 Unspecified atherosclerosis of native arteries of extremities, left leg; I50.22 Chronic systolic (congestive) heart failure; L97.312 Non-pressure chronic ulcer of right ankle with fat layer exposed
CPT/HCPCS: 15271

== ENCOUNTER → 2017-12-27 | Outpatient (CLI) | payer MEDICARE ==
[~2017-12-27] MED LIST changes: -SPIR25TA5 PO
== END ==
LOC: WOUNDCARE 12:35
PROVIDERS: ATTEND Nurse Practitioner
DX: L97.312 Non-pressure chronic ulcer of right ankle with fat layer exposed (principal); I87.331 Chronic venous hypertension (idiopathic) with ulcer and inflammation of right lower extremity; S81.801A Unspecified open wound, right lower leg, initial encounter; I70.233 Atherosclerosis of native arteries of right leg with ulceration of ankle; I70.202 Unspecified atherosclerosis of native arteries of extremities, left leg; I50.22 Chronic systolic (congestive) heart failure
CPT/HCPCS: 11042

== ENCOUNTER → 2018-01-03 | Outpatient (CLI) | payer MEDICARE | LOC: WOUNDCARE 12:44 | PROVIDERS: ATTEND Nurse Practitioner | DX: L97.312 Non-pressure chronic ulcer of right ankle with fat layer exposed (principal); I87.331 Chronic venous hypertension (idiopathic) with ulcer and inflammation of right lower extremity; S81.801A Unspecified open wound, right lower leg, initial encounter; I70.233 Atherosclerosis of native arteries of right leg with ulceration of ankle; I70.202 Unspecified atherosclerosis of native arteries of extremities, left leg; I50.22 Chronic systolic (congestive) heart failure; X58.XXXA Exposure to other specified factors, initial encounter | CPT/HCPCS: 97597 ==

== ENCOUNTER → 2018-01-10 | Outpatient (CLI) | payer MEDICARE | LOC: WOUNDCARE 12:26 | PROVIDERS: ATTEND Nurse Practitioner | DX: L97.312 Non-pressure chronic ulcer of right ankle with fat layer exposed (principal); I87.331 Chronic venous hypertension (idiopathic) with ulcer and inflammation of right lower extremity; S81.801A Unspecified open wound, right lower leg, initial encounter; I70.233 Atherosclerosis of native arteries of right leg with ulceration of ankle; I70.202 Unspecified atherosclerosis of native arteries of extremities, left leg; I50.22 Chronic systolic (congestive) heart failure | CPT/HCPCS: 97597 ==

== ENCOUNTER → 2018-01-24 | Outpatient (CLI) | payer MEDICARE | LOC: WOUNDCARE 12:27 | PROVIDERS: ATTEND Nurse Practitioner | DX: I87.331 Chronic venous hypertension (idiopathic) with ulcer and inflammation of right lower extremity (principal); L97.312 Non-pressure chronic ulcer of right ankle with fat layer exposed; I70.233 Atherosclerosis of native arteries of right leg with ulceration of ankle; I70.202 Unspecified atherosclerosis of native arteries of extremities, left leg; I50.22 Chronic systolic (congestive) heart failure; S81.801A Unspecified open wound, right lower leg, initial encounter; W22.8XXA Striking against or struck by other objects, initial encounter | CPT/HCPCS: 99212 ==

== ENCOUNTER → 2018-04-01 | Outpatient (CLI) | payer MEDICARE ==
[~2018-04-01] MED LIST changes: +SPIR25TA5 PO
--- NOTE | 2018-04-01 13:50 | Diagnostic Imaging Report ---
PROCEDURE: US Renal Bilateral. TECHNIQUE: Multiple real-time grayscale images were obtained over the kidneys in various projections bilaterally. INDICATION: Right renal cyst. FINDINGS: Right kidney measures 9.1 x 3.5 x 3.4 cm, and the left kidney measures 10.7 x 5.1 x 4.5 cm. Cortical thickness and echogenicity are normal bilaterally. No calculi are seen. There is no hydronephrosis. No renal cyst is detected. There does appear to be some lower abdominal ascites. Mild upper abdominal ascites is also seen. IMPRESSION: 1. Ascites. 2. Otherwise, unremarkable renal ultrasound. No renal mass or hydronephrosis is detected. Dictated by: Dictated on workstation # [id number]
== END ==
LOC: RAD 13:01
PROVIDERS: ATTEND Urology
DX: N28.1 Cyst of kidney, acquired (principal); R18.8 Other ascites
CPT/HCPCS: 76770

== ENCOUNTER → 2018-05-07 | Outpatient (CLI) | payer MEDICARE ==
[~2018-05-07] MED LIST changes: +ACHD5005 PO; -BENZ-13 PO; +BENZ100C18 PO; -LOSA25TA21 PO; +LOSA25TA6 PO; +METO-387 PO; +fentaNYL INJECTION 100 MCG/2 ML AMP ONE
== END ==
LOC: CARD 10:48
PROVIDERS: ATTEND Physician Assistant
DX: I10 Essential (primary) hypertension (principal); E78.5 Hyperlipidemia, unspecified; I25.10 Atherosclerotic heart disease of native coronary artery without angina pectoris; I71.4 Abdominal aortic aneurysm, without rupture; I08.3 Combined rheumatic disorders of mitral, aortic and tricuspid valves
CPT/HCPCS: 93306

== ENCOUNTER 2018-05-10 12:31 | Inpatient (IN) | payer MEDICARE ==
[~2018-05-10] VITALS: Ht 167.6 cm; Wt 63.6 kg
[2018-05-10] VITALS (10 sets, daily range): BP systolic 93–122; BP diastolic 52–58
[~2018-05-10 12:31] MED LIST changes: -ACHD5005 PO; -METO-387 PO; -fentaNYL INJECTION 100 MCG/2 ML AMP ONE
[2018-05-10] MEDS ORDERED: TETANUS,DIPTH,PERTUSS P/F (BOOSTRIX) 0.5 ML VIAL IM STA (12:38)
--- OUTSIDE RECORDS SUMMARY | 2018-05-10 12:38 | XMS REPORT | Encounter Summary ---
Author Author [facility] Organization [facility] Address Unknown Phone Unavailable Care Team Providers Care Coach Professional Athletes Name Role Phone Jake Prabhakar MD PCP Kristi Charlton Unavailable Eliceo Parker MD 21 Encounter Details Date Type Department Care Team Description 02/18/2018 [facility] Cardiology Anisa Mccormick APRN-Ragini Encounter [place] [id number] [facility] [address] [facility] [address] [place] [address] [place] [address] [phone] Social History Tobacco Use Types Packs/Day Years Used Date Never Smoker Smokeless Tobacco: Never Used Alcohol Use Drinks/Week oz/Week Comments No Sex Assigned at Date Recorded Not on file as of this encounter Medications at Time of Discharge Medication Sig. Disp. Refills Start Date End Date acetaminophen (TYLENOL) Take 500 mg by mouth 500 mg tablet every 6 hours as needed for Pain. Max of 4,000 mg of acetaminophen in 24 hours. digoxin (LANOXIN) 125 mcg Take 1 Tab by mouth 30 Tab 11 11/05/2012 tabletIndications: daily. 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 guaiFENesin LA (MUCINEX) Take 600 mg by mouth 600 mg tablet twice daily. isosorbide mononitrate SR Take 15 mg by mouth every (IMDUR) 30 mg tablet morning. levothyroxine (SYNTHROID) Take 100 mcg by mouth 100 mcg tablet daily. loratadine (CLARITIN) 10 Take 10 mg by mouth mg tablet daily. meclizine (ANTIVERT) 25 Take 25 mg by mouth every mg tablet 8 hours as needed. For vertigo metOLazone (ZAROXOLYN) Take 2.5 mg by mouth as 2.5 mg tablet directed. Mon, Fri and as needed metoprolol XL (TOPROL XL) Take 50 mg by mouth 50 mg extended release daily. tablet mexiletine (MEXITIL) 150 Take 150 mg by mouth mg capsule every 12 hours. nitroglycerin (NITROSTAT) Place 0.4 mg under tongue 0.4 mg tablet every 5 minutes as needed. pantoprazole DR Take 40 mg by mouth (PROTONIX) 40 mg tablet daily. potassium chloride SR Take 1 Tab by mouth twice 90 Cap 0 09/29/2014 (K-DUR) 10 mEq tablet daily. rOPINIRole (REQUIP) 0.5 Take 0.5 mg by mouth mg tablet twice daily. sacubitril/valsartan Take 1 tablet by mouth (ENTRESTO) 24/26 mg twice daily. tablet traMADol (ULTRAM) 50 mg Take 50 mg by mouth every tablet 6 hours as needed for Pain. warfarin (COUMADIN) 2 mg Take 4 mg by mouth daily. tablet Or as directed per your physician as of this encounter Plan of Treatment Not on fileas of this encounter Results * PROTIME INR (PT) (02/18/2018 10:06 AM) INR 1.6 (H) 0.8 - 1.2 [facility] Specimen Blood Performing Organization Address City/State/Zipcode Phone Number [facility] [address] [place] [phone] * BASIC METABOLIC PANEL (02/18/2018 10:06 AM) Sodium 140 137 - 147 MMOL/L [facility] Potassium 4.1 3.5 - 5.1 MMOL/L [facility] Chloride 102 98 - 110 MMOL/L [facility] CO2 31 (H) 21 - 30 MMOL/L [facility] Anion Gap 7 3 - 12 [facility] Glucose 88 70 - 100 MG/DL [facility] Blood Urea Nitrogen 23 7 - 25 MG/DL [facility] Creatinine 1.55 (H) 0.4 - 1.00 MG/DL [facility] Calcium 9.4 8.5 - 10.6 MG/DL [facility] eGFR Non 32 (L) >60 mL/min [facility] Comment: The eGFR is not validated for use in drug dosing adjustments.Continue to use estimated creatinine clearance per dosing reference text.Please contact the Clinical Pharmacist for questions. eGFR 39 (L) >60 mL/min [facility] Comment: The eGFR is not validated for use in drug dosing adjustments.Continue to use estimated creatinine clearance per dosing reference text.Please contact the Clinical Pharmacist for questions. Specimen Blood Performing Organization Address City/State/Zipcode Phone Number MAIN LAB [address] [place] [address] in this encounter Visit Diagnoses Diagnosis Atrial fibrillation, unspecified type (HCC)
--- OUTSIDE RECORDS SUMMARY | 2018-05-10 12:38 | XMS REPORT | Clinical Summary ---
Author Author [facility] Organization [facility] Address Unknown Phone Unavailable Care Team Providers Care Box Lidder Name Role Phone Jake Prabhakar MD PCP Kristi Charlton Unavailable Eliceo Parker MD 21 Source Comments Some departments are not documenting in the electronic medical record. If you do not see the information that you expected, contact Release of Information in the Health Information Management department at [phone] for further assistance in locating additional records.[facility] Allergies No Known Allergies Current Medications Prescription Sig. Disp. 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 potassium chloride SR Take 1 Tab by mouth twice 90 Cap 0 09/29/19 Active (K-DUR) 10 mEq tablet daily. 15 isosorbide mononitrate SR Take 15 mg by mouth every Active (IMDUR) 30 mg tablet morning. sacubitril/valsartan Take 1 tablet by mouth Active (ENTRESTO) 24/26 mg twice daily. tablet metoprolol XL (TOPROL XL) Take 50 mg by mouth Active 50 mg extended release daily. tablet furosemide (LASIX) 40 mg Take 40 mg by mouth twice Active tablet daily. mexiletine (MEXITIL) 150 Take 150 mg by mouth Active mg capsule every 12 hours. guaiFENesin LA (MUCINEX) Take 600 mg by mouth Active 600 mg tablet twice daily. pantoprazole DR Take 40 mg by mouth Active (PROTONIX) 40 mg tablet daily. rOPINIRole (REQUIP) 0.5 Take 0.5 mg by mouth Active mg tablet twice daily. acetaminophen (TYLENOL) Take 500 mg by mouth Active 500 mg tablet every 6 hours as needed for Pain. Max of 4,000 mg of acetaminophen in 24 hours. traMADol (ULTRAM) 50 mg Take 50 mg by mouth every Active tablet 6 hours as needed for Pain. metOLazone (ZAROXOLYN) Take 2.5 mg by mouth as Active 2.5 mg tablet directed. Mon, Fri and as needed Active Problems Problem Noted Date Mitral stenosis 02/18/2018 Aortic insufficiency 02/18/2018 PVC's (premature ventricular contractions) 12/15/2013 Overview: 12/15/2013 [...] block (RBBB) with posterior hemiblock 03/21/2012 Cardiomyopathy ([facility]) 03/21/2012 Overview: : EF 30, dilated LV. Severe MR & TR PAP 55 (42 a year earlier, EF 35, MR and TR mod-severe). AVR "OK" Chronic systolic CHF (congestive heart failure), NYHA class 3 ([facility]) 2011 Last Assessment & Plan: Echo in [...] assessed in November and demonstrated normal function assisted current use of anticoagulant 03/19/2012 HLD (hyperlipidemia) 03/19/2012 PVD (peripheral vascular disease) ([facility]) 03/19/2012 Atrial fibrillation ([facility]) 03/19/2012 Overview: Permanent as of 2011 90+% paced-DDIR at 70 on cardizem 240, dig .125, coreg 6.25bid 08/07/12 Initiated on digoxin 0.125mcg daily to assist with BiV pacing pacing L ast Assessment & Plan: Continues to be in permanent atrial fibrillation. Overall well rate controlled. Biventricular ICD (implantable cardioverter-defibrillator) in place 2011 Overview: MDSebastián DC PPM- L side 200408/07/12 [employer]-D upgrade implant + DFTs with Dr. Ceja. Roxy cintron Assessment & Plan: Device was checked today and demonstrated normal function. See device check and cardiovascular studies for further details. Resolved Problems Problem Noted Date Resolved Date ERRONEOUS ENCOUNTER--DISREGARD 09/01/2015 02/18/2018 Dilated cardiomyopathy (HCC) 03/18/2012 03/21/2012 Encounters Date Type Specialty Care Team Description 02/18/2018 [facility] Cardiology Anisa Mccormick APRN-C Encounter 02/18/2018 Office Visit Cardiothoracic Surgery Eren Ashley MD Mitral valve insufficiency, unspecified etiology (Primary Dx); Chronic systolic CHF (congestive heart failure), NYHA class 3 (HCC); Atrial fibrillation, unspecified type (HCC); Mitral valve stenosis, unspecified etiology; Aortic valve insufficiency, etiology of cardiac valve disease unspecified; S/P aortic valve replacement with prosthetic valve 02/18/2018 [facility] Cardiology Anisa Mccormick APRN-C Encounter 02/18/2018 Office Visit Cardiology Anisa Mccormick APRN-C PVD (H&P for STEVEN ); CAD; Atrial fibrillation; Cardiomyopathy 02/15/2018 Telephone Cardiology Marguerite Fam RN STEVEN Pre-Procedure Instuctions from Last 3 Months Family History Medical History Relation Name Comments Coronary Artery Disease Mother of [place] Diabetes Mother Hyperlipidemia Mother Hypertension Mother Relation Name Status Comments Mother Social History Tobacco Use Types Packs/Day Years Used Date Never Smoker Smokeless Tobacco: Never Used Alcohol Use Drinks/Week oz/Week Comments No Sex Assigned at Date Recorded Not on file Last Filed Vital Signs Vital Sign Reading Time Taken Blood Pressure 120/62 02/18/2018 2:35 PM CDT Pulse 89 02/18/2018 2:35 PM CDT Temperature 36.6 C (97.9 F) 08/09/2012 11:25 AM RESIDENT CARE SPEC Respiratory Rate - - Oxygen Saturation 98% 02/18/2018 2:35 PM CDT Inhaled Oxygen - - Concentration Weight 59.4 kg (131 lb) 02/18/2018 2:35 PM CDT Height 165.1 cm (5' 5") 02/18/2018 2:35 PM CDT Body Mass Index 21.8 02/18/2018 2:35 PM CDT Plan of Treatment Health Maintenance Due Date Last Done Comments PHYSICAL (COMPREHENSIVE) 1944 EXAM PERTUSSIS VACCINE 1948 TETANUS VACCINE 1954 SHINGLES RECOMBINANT 1987 VACCINE (1 of 2) OSTEOPOROSIS SCREENING 2002 PNEUMONIA (PCV13/PPSV23) 2002 VACCINES (1 of 2 - PCV13) INFLUENZA VACCINE 06/03/2018 07/20/2005 Procedures Procedure Name Priority Date/Time Associated Diagnosis Comments ECG-SCAN 02/19/2018 Results for this 7:30 AM CDT procedure are in the results section. from Last 3 Months Results * ECG-SCAN (02/19/2018 7:30 AM) Narrative Performed At Ordered by an unspecified provider. * PROTIME INR (PT) (02/18/2018 10:06 AM) INR 1.6 (H) 0.8 - 1.2 [facility] Specimen Blood Performing Organization Address City/State/Zipcode Phone Number MAIN LAB [address] [place] [address] * BASIC METABOLIC PANEL (02/18/2018 10:06 AM) [...] Organization Address City/State/Zipcode Phone Number MAIN LAB [address] [place] [address] from Last 3 Months
--- OUTSIDE RECORDS SUMMARY | 2018-05-10 12:39 | XMS REPORT | Encounter Summary ---
Author Author [facility] Organization [facility] Address Unknown Phone Unavailable Care Team Providers Care Operator Supply Name Role Phone Jake Prabhakar MD PCP Kristi Charlton Unavailable Eliceo Parker MD 21 Reason for Visit * Reason Comments Cardiac Eval MR/[facility] Evalutaion * Consult, Test & Treat Status Reason Specialty Diagnoses / Referred By Referred To Procedures Contact Contact Closed Specialty Cardiothoracic Diagnoses Eliceo Parker [facility] Surgery Mitral valve MD [facility], [address] [facility] [id number] [place] [address] Phone: Fax: Encounter Details Date Type Department Care Team Description 02/18/2018 Office Visit [facility] Eren Ashley MD Mitral valve [facility] [address] [facility] [place] [address] unspecified etiology [address] [place] [address] (Primary Dx); [place] [address] Chronic systolic CHF [phone] (congestive heart failure), NYHA class 3 (HCC); Atrial fibrillation, unspecified type (HCC); Mitral valve stenosis, unspecified etiology; Aortic valve insufficiency, etiology of cardiac valve disease unspecified; S/P aortic valve replacement with prosthetic valve Social History Tobacco Use Types Packs/Day Years Used Date Never Smoker Smokeless Tobacco: Never Used Alcohol Use Drinks/Week oz/Week Comments No Sex Assigned at Date Recorded Not on file as of this encounter Last Filed Vital Signs Vital Sign Reading Time Taken Blood Pressure 120/62 02/18/2018 2:35 PM CDT Pulse 89 02/18/2018 2:35 PM CDT Temperature - - Respiratory Rate - - Oxygen Saturation 98% 02/18/2018 2:35 PM CDT Inhaled Oxygen - - Concentration Weight 59.4 kg (131 lb) 02/18/2018 2:35 PM CDT Height 165.1 cm (5' 5") 02/18/2018 2:35 PM CDT Body Mass Index 21.8 02/18/2018 2:35 PM CDT in this encounter Progress Notes * Eren Ashley MD - 02/18/2018 2:00 PM CDT Formatting of this note may be different from the original. Date of Service: 02/18/2018 Subjective: Anisha Mcfarland is a 82 y.o. female. History of Present Illness We had the pleasure of seeing Anisha Mcfarland who was referred for further evaluation of her mitral regurgitation. She is a 82-year-old with history of nonischemic cardiomyopathy, rheumatic valve disease, permanent atrial fibrillation, peripheral vascular disease, hypothyroidism, systolic heart failure. She had a mechanical aortic valve replacement 1998 for severe aortic regurgitation. She has developed severe mitral and tricuspid regurgitation and mitral stenosis and was initially evaluated by us for valve replacement. She was adamantly opposed to surgical valve replacement. She was not felt to be a candidate for mitraclip secondary to moderate MS. She had an echocardiogram in August that showed an EF of 30-35%. She had an enlarged right ventricle. Her pulmonary pressure was 45 mmHg. The left atrium was severely dilated and there is severe mitral regurgitation and at least some component of stenosis. The mechanical aortic valve is functioning normally with only mild regurgitation. She has severe tricuspid regurgitation as well. Her outside bonding equipment operator wanted her to be evaluated for potential transcatheter mitral valve replacement as part of the [place] trial. Ms. Mcfarland has been doing fairly well and is relatively stable. She states she started Entresto about a year ago and since then has had improvement in heart failure symptoms. She denies any chest pain, shortness of breath, lower extremity edema, palpitations, near-syncope or syncope. She does sleep with O2 at night. 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 Review of Systems Constitution: Negative. HENT: Negative. Eyes: Negative. Cardiovascular: Negative. Respiratory: Negative. Endocrine: Negative. Hematologic/Lymphatic: Negative. Skin: Negative. Musculoskeletal: Negative. Gastrointestinal: Negative. Genitourinary: Negative. Neurological: Negative. Psychiatric/Behavioral: Negative. Allergic/Immunologic: Negative. Objective: acetaminophen (TYLENOL) 500 mg tablet Take 500 mg by mouth every 6 hours as needed for Pain. Max of 4,000 mg of acetaminophen in 24 hours. digoxin (LANOXIN) 125 mcg tablet Take 1 Tab by mouth daily. furosemide (LASIX) 40 mg tablet Take 40 mg by mouth twice daily. guaiFENesin LA (MUCINEX) 600 mg tablet Take 600 mg by mouth twice daily. isosorbide mononitrate SR (IMDUR) 30 mg tablet Take 15 mg by mouth every morning. levothyroxine (SYNTHROID) 100 mcg tablet Take 100 mcg by mouth daily. loratadine (CLARITIN) 10 mg tablet Take 10 mg by mouth daily. meclizine (ANTIVERT) 25 mg tablet Take 25 mg by mouth every 8 hours as needed. For vertigo metOLazone (ZAROXOLYN) 2.5 mg tablet Take 2.5 mg by mouth as directed. Mon, Fri and as needed metoprolol XL (TOPROL XL) 50 mg extended release tablet Take 50 mg by mouth daily. mexiletine (MEXITIL) 150 mg capsule Take 150 mg by mouth every 12 hours. nitroglycerin (NITROSTAT) 0.[address] 0.4 mg under tongue every 5 minutes as needed. pantoprazole DR (PROTONIX) 40 mg tablet Take 40 mg by mouth daily. potassium chloride SR (K-DUR) 10 mEq tablet Take 1 Tab by mouth twice daily. (Patient taking differently: Take 10 mEq by mouth daily.) rOPINIRole (REQUIP) 0.5 mg tablet Take 0.5 mg by mouth twice daily. sacubitril/valsartan (ENTRESTO) 24/26 mg tablet Take 1 tablet by mouth twice daily. traMADol (ULTRAM) 50 mg tablet Take 50 mg by mouth every 6 hours as needed for Pain. warfarin (COUMADIN) 2 mg tablet Take 4 mg by mouth daily. Or as directed per your physician Vitals: 02/18/18 1435 BP: 120/62 Pulse: 89 SpO2: 98% Weight: 59.4 kg (131 lb) Height: 1.651 m (5' 5") Body mass index is 21.8 kg/m. Physical Exam General Appearance: no acute distress Skin: warm & intact HEENT: unremarkable Neck Veins: neck veins are flat & not distended Carotid Arteries: no bruits Chest Inspection: chest is normal in appearance Auscultation/Percussion: lungs clear to auscultation, no rales, rhonchi, or wheezing Cardiac Rhythm: regular rhythm & normal rate Cardiac Auscultation: mechanical valve sounds, no S3 or S4, no rub Murmurs: 2/6 systolic murmur Extremities: no lower extremity edema; 2+ symmetric distal pulses Abdominal Exam: soft, non-tender, no masses, bowel sounds normal Liver & Spleen: no organomegaly Neurologic Exam: oriented to time, place and person; no focal neurologic deficits Psychiatric: Normal mood and affect. Behavior is normal. Judgment and thought content normal. Assessment and Plan: 1. Severe mitral regurgitation and mitral stenosis. 2. Aortic regurgitation status post mechanical aortic valve in 1998. 3. Chronic anticoagulation. 4. Nonischemic cardiomyopathy. 5. Chronic systolic and diastolic heart failure. 6. Permanent atrial fibrillation. 7. Peripheral vascular disease. After further discussion with Ms. Mcfarland she does not want to move forward with the STEVEN because overall she feels well and has a reasonable quality of life. She feels like medication management has improved her heart failure symptoms, especially with the addition of Entresto. Her volume status is stable. We recommend a repeat echocardiogram in 3 months which can be done by her primary bonding equipment operator to ensure she is not having any changes in her LV function. If she has any decline, we can consider STEVEN and further workup for the [place] trial. We will plan to see her on an as-needed basis. GISSELL Adams I performed a history and physical examination of the patient and discussed his management with the midlevel provider. I reviewed the midlevel provider note and agree with the documented findings and plan of care. This very nice lady appears to have had a significant positive response to entresto over the last few months. She feels that in combination with the diuretics, she is able to perform all of the activities of daily living that she wishes including working and cutting her grass. I did inform her that she has severe mitral insufficiency. I thought that it was reasonable to repeat her echocardiogram in approximately 3 months to ensure that her LV systolic function does not decline. At this point, the patient is extremely reluctant to undergo any procedure because she is feeling well. She understood that her left ventricular function could worsen and that she could potentially become ineligible for valve repair because of poor LV function. I feel that she understands her pathology very well. She had a family member ( son )with her who also was very supportive and asked appropriate questions. All of their questions were answered to their satisfaction. I did tell the patient that I would be happy to see her again should her symptoms worsen or her medical therapy become ineffective or less effective. I truly appreciate the opportunity of taking care of your delightful patient. Thank you very much for the kind referral. Sincerely, Eren Ashley MD Cardiovascular and Thoracic Surgery [facility], [place] [email or web address] in this encounter Plan of Treatment Not on fileas of this encounter Visit Diagnoses Diagnosis Mitral valve insufficiency, unspecified etiology - Primary Chronic systolic CHF (congestive heart failure), NYHA class 3 (HCC) Chronic systolic heart failure Atrial fibrillation, unspecified type (HCC) Mitral valve stenosis, unspecified etiology Aortic valve insufficiency, etiology of cardiac valve disease unspecified S/P aortic valve replacement with prosthetic valve Heart valve replaced by other means
--- OUTSIDE RECORDS SUMMARY | 2018-05-10 12:39 | XMS REPORT | Encounter Summary ---
Author Author [facility] Organization [facility] Address Unknown Phone Unavailable Care Team Providers Care Tierce Filler Name Role Phone Jake Prabhakar MD PCP Kristi Charlton Unavailable Eliceo Parker MD 21 Reason for Referral * Test Status Reason Specialty Diagnoses / Referred By Referred To Procedures Contact Contact No Auth Needed Cardiology Diagnoses Anisa Mccormick Bhg Card Echopv Mitral valve BUSINESS INTELLIGENCE DIRECTOR-C [facility] insufficiency, [id number] etiology [place] [address] [place], [place] [address] rocLikeAndy [id number] Phone: TRANSESOPHAGEAL ECHOCARDIOGRAM [phone] [place] ECHO Fax: TRANSESOPHAG R-T [phone] 2D W/PRB IMG ACQUISJ I&R * Test Status Reason Specialty Diagnoses / Referred By Referred To Procedures Contact Contact No Auth Needed Cardiology Diagnoses Anisa Mccormick Bhg Card Echopv Mitral valve BUSINESS INTELLIGENCE DIRECTOR-C [facility] insufficiency, [id number] etiology [place] [address] [place], [place] [address] rocedures [id number] Phone: TRANSESOPHAGEAL ECHOCARDIOGRAM [phone] [place] ECHO Fax: TRANSESOPHAG R-T [phone] 2D W/PRB IMG ACQUISJ I&R Reason for Visit * Test Status Reason Specialty Diagnoses / Referred By Referred To Procedures Contact Contact No Auth Needed Cardiology Diagnoses Anisa Mccormick, mert Card Echopv Mitral valve BUSINESS INTELLIGENCE DIRECTOR-C [facility] insufficiency, [id number] etiology [place] [address] [place], [place] [address] rocedures [id number] Phone: TRANSESOPHAGEAL ECHOCARDIOGRAM [phone] [place] ECHO Fax: TRANSESOPHAG R-T [phone] 2D W/PRB IMG ACQUISJ I&R Encounter Details Date Type Department Care Team Description 02/18/2018 [facility] Cardiology Anisa Mccormick APRN-C Encounter [facility] [place] [address] [place] [address] [phone] Social History Tobacco Use Types Packs/Day Years [...] S/P aortic valve replacement with prosthetic valve, [facility] current use of anticoagulant, HLD (hyperlipidemia), PVD (peripheral vascular disease) ([facility]), Atrial fibrillation (HCC), CAD (coronary artery disease), 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
--- OUTSIDE RECORDS SUMMARY | 2018-05-10 12:39 | XMS REPORT | Encounter Summary ---
Author Author [facility] Organization [facility] Address Unknown Phone Unavailable Care Team Providers Care Data Abstractor Name Role Phone Jake Prabhakar MD PCP Kristi Charlton Unavailable Eliceo Parker MD 21 Reason for Visit * Reason Comments PVD H&P for STEVEN CAD Atrial fibrillation Cardiomyopathy Encounter Details Date Type Department Care Team Description 02/18/[address] [facility] Cardiology Anisa Mccormick APRN-C PVD (H&P for STEVEN ); CAD; [place] [id number] [address] Atrial fibrillation; [address] [place] [address] [place] [address] [phone] Social History Tobacco Use Types Packs/Day Years Used Date Never Smoker Smokeless Tobacco: Never Used Alcohol Use Drinks/Week oz/Week Comments No Sex Assigned at Date Recorded Not on file as of this encounter Last Filed Vital Signs Vital Sign Reading Time Taken Blood Pressure 109/61 02/18/2018 9:43 AM CDT Pulse 80 02/18/2018 9:43 AM CDT Temperature - - Respiratory Rate - - Oxygen Saturation - - Inhaled Oxygen - - Concentration Weight 59.4 kg (131 lb) 02/18/2018 9:43 AM CDT Height 165.1 cm (5' 5") 02/18/2018 9:43 AM CDT Body Mass Index 21.8 02/18/2018 9:43 AM CDT in this encounter Progress Notes * Anisa Mccormick APRN-C - 02/18/2018 9:30 AM CDT Formatting of this note may be different from the original. Date of Service: 02/18/2018 Anisha Mcfarland is a 82 y.o. female. HPI I had the pleasure of seeing Anisha Mcfarland for an H&P prior to STEVEN. She is a 82-year-old with history of [...] severe tricuspid regurgitation as well. Her outside cartography technician wanted her to be evaluated for potential transcatheter mitral valve replacement as part of the [place] trial. She is scheduled to see Dr. Ashley this afternoon after her STEVEN. Ms. Mcfarland has been doing fairly well and is relatively stable. She states she started Entresto about a year ago and since then has had improvement in heart failure symptoms. She denies any chest pain, shortness of breath, lower extremity edema, palpitations, near-syncope or syncope. She does sleep with O2 at night. 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 Vitals: 02/18/18 0943 BP: 109/61 Pulse: 80 Weight: 59.4 kg (131 lb) Height: 1.651 m (5' 5") Body mass index is 21.8 kg/m. Past Medical History Patient Active Problem List Diagnosis Date Noted PVC's (premature ventricular contractions) 12/15/2013 12/15/2013 - PVC burden approx 8%. Started on mexiletine 150 mg twice daily. Mitral valve regurgitation 12/15/2013 11/17/13 - flow velocity across the mitral valve is 2.25 m/sec the mean gradient 6.7 mmHg. Calculated valve area is 1.3 sq cm 01/27/14 Echo: EF 40%. Moderately dilated LV. Severely dilated LA and moderately dilated RA. Normally functioning mechanical AV prosthesis, Mild AI. Moderate to severe mitral regurgitation. Mild mitral stenosis. Severe tricuspid regurgitation. PAP=65 mmHg. 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 Severe MR & TR PAP 55 (42 a year earlier, EF 35, MR and TR mod-severe). 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 [employer]-D upgrade implant + DFTs with Dr. Ceja. Review of Systems Constitution: Positive for weight loss. Cardiovascular: Positive for irregular heartbeat. Endocrine: Positive for cold intolerance. Musculoskeletal: Positive for arthritis. All other systems reviewed and are negative. Physical Exam General Appearance: no acute distress [...] no rub Murmurs: 2/6 systolic murmur Extremities: 1+ lower extremity edema; 2+ symmetric distal pulses Abdominal Exam: soft, non-tender, no masses, bowel sounds normal Liver & Spleen: no organomegaly Neurologic Exam: oriented to time, place and person; no focal neurologic deficits Psychiatric: Normal mood and affect. Behavior is normal. Judgment and thought content normal. Cardiovascular Studies EKG: V-paced. Rate 80 bpm. Problems Addressed Today Encounter Diagnoses Name Primary? Mitral valve insufficiency, unspecified etiology Yes Atrial fibrillation, unspecified type ([facility]) PVD (peripheral vascular disease) ([facility]) Chronic systolic CHF (congestive heart failure), NYHA class 3 ([facility]) Cardiomyopathy, unspecified type ([facility]) S/P aortic valve replacement with prosthetic valve Biventricular ICD (implantable cardioverter-defibrillator) in place Assessment and Plan 1. Severe mitral regurgitation with mitral stenosis. She is having a repeat STEVEN today to further assess the mitral valve to determine if she is a candidate for enrollment in the [place] trial or to see if there are any other options for minimally invasive therapies. The mitral gradient will need to be assessed with this study as mitral stenosis may be the limiting factor. 2. Aortic regurgitation status post mechanical aortic valve. She is on warfarin for anticoagulation. Recent echo shows that the valve is stable. 3. Nonischemic cardiomyopathy. Her EF is in the 35% range. She is on optimal medical therapy including Toprol 50 mg daily and Entresto 24/26 mg twice daily. She has no evidence of volume overload currently. 4. Permanent atrial fibrillation. 5. Peripheral vascular disease. She has had prior peripheral intervention. We will make further recommendations after the STEVEN is complete. Thank you for allowing us to participate in the care of this pleasant individual. If you have any other questions or concerns, please do not hesitate to contact us. GISSELL Adams Current Medications (including today's revisions) acetaminophen (TYLENOL) 500 mg tablet Take 500 [...] daily. Or as directed per your physician Collaborating physician - PNT in this encounter Plan of Treatment Name Priority Associated Diagnoses Order Schedule ECG 12-LEAD Routine Atrial fibrillation, Ordered: 02/18/2018 unspecified type (HCC) as of this encounter Procedures Procedure Name Priority Date/Time Associated Diagnosis Comments ECG-SCAN 02/19/2018 Results for this 7:30 AM CDT procedure are in the results section. in this encounter Results * ECG-SCAN (02/19/2018 7:30 AM) Narrative Performed At Ordered by an unspecified provider. * BASIC METABOLIC PANEL (02/18/2018 10:06 AM) [...] for questions. Specimen Blood Performing Organization Address City/[facility]/Zipcode Phone Number [facility] [address] [phone] * PROTIME INR (PT) (02/18/2018 10:06 AM) INR 1.6 (H) 0.8 - 1.2 [facility] Specimen Blood Performing Organization Address City/[facility]/Zipcode Phone Number [facility] [address] [place] [address] in this encounter Visit Diagnoses Diagnosis Mitral valve insufficiency, unspecified etiology - Primary Atrial fibrillation, unspecified type ([facility]) PVD (peripheral vascular disease) ([facility]) Peripheral vascular disease, unspecified Chronic systolic CHF (congestive heart failure), NYHA class 3 ([facility]) Chronic systolic heart failure Cardiomyopathy, unspecified type ([facility]) S/P aortic valve replacement with prosthetic valve Heart valve replaced by other means Biventricular ICD (implantable cardioverter-defibrillator) in place
--- OUTSIDE RECORDS SUMMARY | 2018-05-10 12:39 | XMS REPORT | Encounter Summary ---
Author Author [facility] Organization [facility] Address Unknown Phone Unavailable Care Team Providers Care Chief Innovation Officer Name Role Phone Jake Prabhakar MD PCP Kristi Charlton Unavailable Eliceo Parker MD 21 Reason for Visit * Reason Comments STEVEN Pre-Procedure Instuctions Encounter Details Date Type Department Care Team Description 02/15/2018 Telephone [facility] Cardiology Marguerite Fam RN [facility] [address] [place] [address] Social History Tobacco Use Types Packs/Day Years Used Date Never Smoker Smokeless Tobacco: Never Used Alcohol Use Drinks/Week oz/Week Comments No Sex Assigned at Date Recorded Not on file as of this encounter Miscellaneous Notes * Telephone Encounter - Marguerite Fam RN - 02/15/2018 12:22 PM CDT Spoke with patient on the phone, confirmed date/time of STEVEN. Pt to have OV prior to procedure, pt confirmed that time. Pt to be NPO after midnight. Reviewed what meds to take and hold. Pt will have test driver with her. No additional questions at this time. in this encounter Plan of Treatment Not on fileas of this encounter Visit Diagnoses Not on filein this encounter
[2018-05-10 12:46] LABS: BASOPHILS % (AUTO) 1 % (0-10); EOSINOPHILS # (AUTO) 0.1 10^3/uL (0.0-0.3); EOSINOPHILS % (AUTO) 2 % (0-10); HEMATOCRIT 32 % (35-52); HEMOGLOBIN 10.4 G/DL (11.5-16.0); LYMPHOCYTES # (AUTO) 0.9 X 10^3 (1.0-4.0); LYMPHOCYTES % (AUTO) 14 % (12-44); MEAN CORPUSCULAR HEMOGLOBIN 34 PG (25-34); MEAN CORPUSCULAR HGB CONC 32 G/DL (32-36); MEAN CORPUSCULAR VOLUME 104 FL (80-99); MONOCYTES # (AUTO) 0.4 X 10^3 (0.0-1.0); MONOCYTES % (AUTO) 6 % (0-12); NEUTROPHILS # (AUTO) 5.1 X 10^3 (1.8-7.8); NEUTROPHILS % (AUTO) 78 % (42-75); PLATELET COUNT 125 10^3/uL (130-400); RED CELL DISTRIBUTION WIDTH 13.8 % (10.0-14.5); WHITE BLOOD COUNT 6.5 10^3/uL (4.3-11.0)
[2018-05-10 12:55] LABS: INR 2.2 (0.8-1.4); PROTHROMBIN TIME PATIENT 24.2 SEC (12.2-14.7)
--- NOTE | 2018-05-10 12:57 | ED Fall/Injury ---
General Chief Complaint: Trauma-Non Activation Stated Complaint: FALL HEAD INJ/HIP PAIN Nursing Triage Note: ARRIVED VIA EMS FROM HOME. 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 STATES SHE CRAWLED BACK INTO HER HOUSE AND GOT HERSELF UP IN A CHAIR. COMPLAINS OF RIGHT HIP, HEAD, AND ELBOW PAIN. DENIES LOC. ABRASION ABOVE RIGTH EYE BROW. Source: patient, EMS History of Present Illness Date Seen by Provider: May 10, 2018 Time Seen by Provider: 12:25 Initial Comments PT ARRIVES VIA EMS FROM HOME-NO IMMOBILIZATION PT STATES SHE WAS WALKING OUTSIDE TO GET HER DOG, AND SHE TRIPPED AND FELL FORWARD ONTO CEMENT--OCCURRED APPROXIMATELY 1 1/2 HOURS AGO DID HIT HEAD BUT NO LOSS OF CONSCIOUSNESS C/O RIGHT HIP PAIN PT WAS ABLE TO CRAWL BACK INTO HOUSE AND WAS ABLE TO GET HERSELF INTO A CHAIR C/O PAIN TO HEAD, RIGHT HIP AND RIGHT ELBOW NO PARESTHESIAS OR MOTOR DEFICITS NO VISION CHANGES NO DIZZINESS NO NAUSEA/VOMITING TP IS NO BOTH COUMADIN AND PLAVIX FOR 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 CALI MUSIC MIXER: DR. SHUKLA Allergies and Home Medications Allergies Coded Allergies: NKANo Known Allergies (Verified Allergy, Unknown, 11/14/05) Home Medications Clopidogrel Bisulfate 75 Mg Tablet, 75 MG PO DAILY Prescribed by: PRANEETH SHUKLA on 12/06/17 0708 Digoxin 125 Mcg Tablet, 125 MCG PO DAILY, (Reported) Furosemide 40 Mg Tablet, 40 MG PO BID, (Reported) Furosemide 40 Mg Tablet, 40 MG PO DAILY PRN for SWELLING, (Reported) TAKES TWICE DAILY SCHEDULED BUT MAY TAKE 1 ADDITIONAL DOSE DAILY NEEDED FOR SWELLING Guaifenesin 600 Mg Tab.er.12h, 600 MG PO BID PRN for CONGESTION, (Reported) Isosorbide Mononitrate 30 Mg Tab.er.24h, 15 MG PO DAILY, (Reported) TAKES 1/2 (30MG) TABLET Levothyroxine Sodium 100 Mcg Tablet, 100 MCG PO DAILY, (Reported) Loratadine 10 Mg Tablet, 10 MG PO DAILY, (Reported) Meclizine HCl 25 Mg Tablet, 25 MG PO TID PRN for DIZZINESS, (Reported) Metolazone 2.5 Mg Tablet, 2.5 MG PO MoWeFr PRN for SWELLING, (Reported) Metoprolol Succinate 50 Mg Tab.er.24h, 50 MG PO DAILY, (Reported) Mexiletine HCl 150 Mg Cap, 150 MG PO BID, (Reported) Nitroglycerin 0.4 Mg Tab.subl, 0.4 MG SL UD PRN for CHEST PAIN, (Reported) Pantoprazole Sodium 40 Mg Tablet.dr, 40 MG PO DAILY, (Reported) Potassium Chloride 10 Meq Capsule.er, 20 MEQ PO DAILY, (Reported) LAST FILLED #30 06-01-17 TAKES 2 (10MEQ) CAPSULES Ropinirole HCl 0.5 Mg Tablet, 0.5 MG PO TID PRN for RESTLESS LEGS, (Reported) Sacubitril/Valsartan 1 Each Tablet, 1 TAB PO BID, (Reported) Tramadol HCl 50 Mg Tablet, 50-100 MG PO Q6H PRN for PAIN-MODERATE, (Reported) Warfarin Sodium 2 Mg Tablet, 2 MG PO MoWe, (Reported) Warfarin Sodium 2 Mg Tablet, 4 MG PO SuTuThFrSa, (Reported) TAKES 2 (2MG) TABLETS Patient Home Medication List Home Medication List Reviewed: Yes Review of Systems Review of Systems Constitutional: no symptoms reported Eyes: No Symptoms Reported Ears, Nose, Mouth, Throat: no symptoms reported Respiratory: no symptoms reported Cardiovascular: no symptoms reported Gastrointestinal: no symptoms reported Genitourinary: no symptoms reported Musculoskeletal: see HPI; No back pain, No neck pain; other (RIGHT HIP AND RIGHT ELBOW PAIN ) Skin: other (ABRASIONS TO RIGHT BROW, RIGHT ELBOW) Psychiatric/Neurological: See HPI, Headache; Denies Numbness, Denies Paresthesia, Denies Seizure, Denies Tingling, Denies Tremors, Denies Weakness Past Ttptypc-Rahrww-Bpdkle Hx Patient Social History Alcohol Use: Denies Use Recreational Drug Use: No Smoking Status: Never a Smoker 2nd Hand Smoke Exposure: Yes Recent Foreign Travel: No Contact w/Someone Who Travel: No Recent Infectious Disease Expo: No Immunizations Up To Date Tetanus Booster (TDap): Unknown PED Vaccines UTD: Yes Date of Pneumonia Vaccine: May 31, 2015 Date of Influenza Vaccine: Jul 04, 2017 Seasonal Allergies Seasonal Allergies: Yes ("Summertime") Past Medical History Surgeries: Yes (AORTIC VALVE REPLACEMENT; PACEMAKER/ DEFIBRILLATOR; ANGIOGRAM WITH ANGIOPLASTY OF RIGHT TIBIAL ARTERY; INGUINAL HERNIA REPAIR; CATARACTS ) Abdominal, Cardiac, Section, Defibrillator, Eye Surgery, Gallbladder, Pacemaker, Valve Replacement Respiratory: Yes (PULMONARY HTN; O2 AT HS) Pneumonia, Sleep Apnea Currently Using CPAP: No Currently Using BIPAP: No Cardiac: Yes (MITRAL VALVE STENOSIS, AORTIC VALVE REPLACEMENT 99', PACEMAKER/ DEFIBRILLATOR FOR SICK SINUS SYNDROME AND ATRIAL FIBRILLATION WITH CARDIOMYOPATHY; CHF; SEVERE CARDIOMYOPATHY; AAA--NO SURGERY; CAD-NO INTERVENTION ; SEVERE PERIPHERAL ARTERY DISEASE;SEVERE CAROTID DISEASE ) Atrial Fibrillation, Cardiomyopathy, Chronic Edema/Swelling, Coronary Artery Disease, Heart Murmur, High Cholesterol, Hypertension, Peripheral Vascular, Valvular Heart Disease Neurological: No (VERY MINOR FORGETFULNESS) Reproductive Disorders: No Sexually Transmitted Disease: No HIV/AIDS: No Genitourinary: No Gastrointestinal: Yes Gall Bladder Disease Musculoskeletal: Yes (OSTEOARTHRITIS; RESTLESS LEG SYNDROME) Osteoporosis, Arthritis Endocrine: Yes Hypothyroidsim HEENT: Yes Cataract Loss of Vision: Denies Hearing Impairment: Denies Cancer: No Psychosocial: No Integumentary: Yes (RIGHT LEG PAIGE ULCER) Blood Disorders: No Adverse Reaction/Blood Tranf: No Family Medical History Family history: Diabetes mellitus 19 MOTHER Heart disease 19 MOTHER History of - respiratory disease 19 FATHER (PNEUMONIA- IN HIS 20'S) Myocardial infarction 19 MOTHER No Family History of: Abdominal aortic aneurysm [place]'s disease Alcoholism Aphasia Cancer Cancer of colon Cataract Chest pain Congenital heart disease Congestive heart failure Cystic fibrosis Dementia Dysphagia Family history: Allergy Family history: Alzheimer's disease Family history: Arthritis Family history: Asthma Family history: Breast disease Family history: Cardiovascular disease Family history: Coronary thrombosis Family history: Gastrointestinal disease Family history: Glaucoma Family history: Hypertension Family history: Osteoporosis Family history: Thyroid disorder Headache Hearing loss Hereditary disease History of - anemia History of - disorder History of drug abuse Human immunodeficiency virus (HIV) seropositivity Hypercholesterolemia Infertile Kidney disease Parkinson's disease Prostate cancer Psychotic disorder Seizure disorder Stroke Tuberculosis Visual impairment No Pertinent Family Hx Physical Exam Vital Signs Vital Signs - First Documented 05/10/18 05/10/18 12:31 12:45 Temp 98.0 Pulse 86 Resp 16 B/P (MAP) 114/78 (90) Pulse Ox 91 O2 Delivery Room Air O2 Flow Rate 2.00 Capillary Refill : Less Than 3 Seconds Height, Weight, BMI Height: 5'5.00" Weight: 135lbs. 0.0oz. 61.737921mv; 21.0 BMI Method:Stated General Appearance: no apparent distress, cachetic HEENT: PERRL/EOMI, other (ABRASION ABOVE RIGHT BROW) Neck: non-tender, full range of motion, supple, normal inspection Cardiovascular: regular rate, rhythm, no gallop, no JVD, systolic murmur (WITH MECHANICAL VALVULAR CLICK) Respiratory: chest non-tender, normal breath sounds, no respiratory distress, no accessory muscle use Peripheral Pulses: 1+ Dorsalis Pedis (R), 1+ Left Dors-Pedis (L), 1+ Radial Pulses (R), 1+ Radial Pulses (L) Gastrointestinal: normal bowel sounds, non tender, soft Back: normal inspection, no CVA tenderness, no vertebral tenderness Extremities: normal capillary refill, pedal edema (1+ WITH JAVIER HOSE ON BILATERALLY), other (TENDERNESS AND ABRASION TO RIGHT ELBOW; TENDERNESS TO RIGHT HIP) Neurologic/Psychiatric: 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 II-XII nml as tested, no motor/sensory deficits, alert, normal mood/affect, oriented x 3 Skin: normal color, warm/dry, other (ABRASIONS TO RIGHT BROW AND RIGHT ELVOW) Irena Coma Score Best Eye Response: (4) Open Spontaneously Best Verbal Response: (5) Oriented Best Motor Response: (6) Obeys Commands Lanse Total: 15 Progress/Results/Core Measures Results/Orders Lab Results Laboratory Tests Test 05/10/18 12:36 Range/Units White Blood Count 6.5 4.3-11.0 10^3/uL Red Blood Count 3.10 L 4.35-5.85 10^6/uL Hemoglobin 10.4 L 11.5-16.0 G/DL Hematocrit 32 L 35-52 % Mean Corpuscular Volume 104 H 80-99 FL Mean Corpuscular Hemoglobin 34 25-34 PG Mean Corpuscular Hemoglobin Concent 32 32-36 G/DL Red Cell Distribution Width 13.8 10.0-14.5 % Platelet Count 125 L 130-400 10^3/uL Mean Platelet Volume 11.0 H 7.4-10.4 FL Neutrophils (%) (Auto) 78 H 42-75 % Lymphocytes (%) (Auto) 14 12-44 % Monocytes (%) (Auto) 6 0-12 % Eosinophils (%) (Auto) 2 0-10 % Basophils (%) (Auto) 1 0-10 % Neutrophils # (Auto) 5.1 1.8-7.8 X 10^3 Lymphocytes # (Auto) 0.9 L 1.0-4.0 X 10^3 Monocytes # (Auto) 0.4 0.0-1.0 X 10^3 Eosinophils # (Auto) 0.1 0.0-0.3 10^3/uL Basophils # (Auto) 0.0 0.0-0.1 10^3/uL Prothrombin Time 24.2 H 12.2-14.7 SEC INR Comment 2.2 H 0.8-1.4 Activated Partial Thromboplast Time 37 H 24-35 SEC Sodium Level 137 135-145 MMOL/L Potassium Level 4.3 3.6-5.0 MMOL/L Chloride Level 101 98-107 MMOL/L Carbon Dioxide Level 27 21-32 MMOL/L Anion Gap 9 5-14 MMOL/L Blood Urea Nitrogen 27 H 7-18 MG/DL Creatinine 1.58 H 0.60-1.30 MG/DL Estimat Glomerular Filtration Rate 31 BUN/Creatinine Ratio 17 Glucose Level 111 H 70-105 MG/DL Calcium Level 9.4 8.5-10.1 MG/DL Corrected Calcium 9.5 8.5-10.1 MG/DL Magnesium Level 2.4 1.8-2.4 MG/DL Total Bilirubin 1.0 0.1-1.0 MG/DL Aspartate Amino Transf (AST/SGOT) 20 5-34 U/L Alanine Aminotransferase (ALT/SGPT) 16 0-55 U/L Alkaline Phosphatase 60 40-136 U/L Troponin I < 0.30 <0.30 NG/ML Total Protein 6.9 6.4-8.2 GM/DL Albumin 3.9 3.2-4.5 GM/DL My Orders Orders - JOSE DANIELAMANDA K DO Saline Lock/Iv-Start (05/10/18 12:38) Catheter(Urinary) Insert & Ass 03,15 (05/10/18 12:38) O2 (05/10/18 12:38) Monitor-Rhythm Ecg Trace Only (05/10/18 12:38) Ct Head/Cervical Spine Wo (05/10/18 12:38) Cbc With Automated Diff (05/10/18 12:38) Comprehensive Metabolic Panel (05/10/18 12:38) Magnesium (05/10/18 12:38) Protime With Inr (05/10/18 12:38) Partial Thromboplastin Time (05/10/18 12:38) Troponin I (05/10/18 12:38) Ua Culture If Indicated (05/10/18 12:38) Chest 1 View, Ap/Pa Only (05/10/18 12:38) Pelvis With Right Hip 2-3views (05/10/18 12:38) Dipht,Pertuss(Acell),Tet Adult (Boostrix (05/10/18 12:38) Elbow, Right, 3 Views (05/10/18 12:54) Vital Signs/I&O 05/10/18 05/10/18 12:31 12:45 Temp 98.0 Pulse 86 Resp 16 B/P (MAP) 114/78 (90) Pulse Ox 91 O2 Delivery Room Air Nasal Cannula O2 Flow Rate 2.00 Blood Pressure Mean: 90 Progress Progress Note : Progress Note C-COLLAR IMMEDIATELY PLACED ON ARRIVAL AND PT LAID FLAT CERVICAL COLLAR REMOVED AT [address] CERVICAL SPINE REPORT FROM RADIOLOGIST PT DECLINES PAIN MEDICATIONS THROUGHOUT ENTIRE ER STAY, EVENTUALLY AGREES TO PAIN MEDICATION JUST BEFORE SHE GOES UPSTAIRS Diagnostic Imaging Comments CT HEAD/CERVICAL SPINE--DEGENERATIVE CHANGES, NO ACUTE PROCESS CXR--CARDIOMEGALY, CHRONIC/STABLE CHANGES, NO ACUTE PROCESS RIGHT ELBOW XRAYS--NO ACUTE PROCESS PELVIS/ RIGHT HIP XRAYS--SUBCAPITAL FRACTURE RIGHT HIP ALL PER RADIOLOGIST VIA PHONE AT 1327 Reviewed: Reviewed by Me, Discussed w/Radiologist Departure Communication (Admissions) 1330--SPOKE WITH DR. GODOY, HE ADVISES CONSULT DR. SHUKLA AND DR. ARREAGA AND WILL CALL HIM BACK 1335--SPOKE WITH DR. SHUKLA HERE IN ER, HE AGREES SHE IS HIGH RISK, BUT NEEDS SURGERY 1338--SPOKE WITH DR. ARREAGA, HOSPITALIST, ACCEPTS PT FOR ADMIT AND WILL WRITE ADMIT ORDERS 1340--SPOKE WITH DR. GODOY AND INFORMED HIM OF THE ABOVE CONVERSATIONS. HE PLANS ON TAKING PT TO SURGERY TOMORROW. 1345--DR. ARREAGA HERE TO SEE PT Impression Primary Impression: S/P FALL FROM STANDING POSITION Additional Impressions: Closed right hip fracture Minor head injury without loss of consciousness RIGHT ELBOW CONTUSION AND ABRASION RIGHT BROW CONTUSION AND ABRASION ANTICOAGATION THERAPY S/P aortic valve replacement Agupgzbehf-ovtwqhxcm-fuqbnpo (DPT) vaccination administered at current visit Disposition: 09 ADMITTED INPATIENT Condition: Stable Admissions Decision to Admit Reason: Admit from ER (Trauma) Decision to Admit/Date: May 10, 2018 Time/Decision to Admit Time: 13:30 Departure-Patient Inst. Referrals: RUSTAM CALI DO (PCP/Family) Primary Care Physician AMANDA SKY DO May 10, 2018 12:57
[2018-05-10 13:05] LABS: ALANINE AMINOTRANSFERASE 16 U/L (0-55); ALBUMIN 3.9 GM/DL (3.2-4.5); ALKALINE PHOSPHATASE 60 U/L (40-136); BUN/CREATININE RATIO 17; CALCIUM 9.4 MG/DL (8.5-10.1); CARBON DIOXIDE 27 MMOL/L (21-32); CHLORIDE 101 MMOL/L (98-107); CREATININE SERUM 1.58 MG/DL (0.60-1.30); GFR ESTIMATED 31; GLUCOSE 111 MG/DL (70-105); MAGNESIUM 2.4 MG/DL (1.8-2.4); POTASSIUM 4.3 MMOL/L (3.6-5.0); SODIUM 137 MMOL/L (135-145); TOTAL PROTEIN 6.9 GM/DL (6.4-8.2)
--- NOTE | 2018-05-10 13:12 | Diagnostic Imaging Report ---
PROCEDURE: CT head and CT cervical spine without contrast. TECHNIQUE: Multiple contiguous axial images were obtained through the brain and cervical spine without the use of intravenous contrast. Sagittal and coronal reformations through the cervical spine were then performed. INDICATION: Fall. COMPARISON: No prior studies are available for comparison. CT HEAD: Ventricles and sulci are appropriate for the patient's age. No sulcal effacement, midline shift, or hemorrhage is seen. There is moderate periventricular hypodensity noted consistent with senescent change. The cisterns are patent. The visualized paranasal sinuses are clear. IMPRESSION: Senescent changes. No acute intracranial process is detected. CT CERVICAL SPINE: Curvature and alignment is normal. Severe multilevel degenerative disc disease is seen with variable disc space narrowing and marginal spurring. No fractures are identified. The odontoid is intact. Prevertebral tissues are normal. IMPRESSION: Cervical spondylosis. No acute bony abnormality is detected. Dictated by: Dictated on workstation # [id number]
--- NOTE | 2018-05-10 13:27 | Diagnostic Imaging Report ---
INDICATION: Fall. TIME OF EXAM: 1:33 p.m. COMPARISON: Correlation is made with prior study from 12/05/2017. FINDINGS: Changes of median sternotomy are noted. The heart is enlarged. Cardiac defibrillator remains in place. No infiltrate or failure is seen. No effusion or pneumothorax is identified. Calcified granuloma in the right lower lobe is again seen. Bony structures are nonacute. IMPRESSION: No acute feature is identified. Dictated by: Dictated on workstation # [id number]
--- NOTE | 2018-05-10 13:30 | Diagnostic Imaging Report ---
INDICATION: Fall. TIME OF EXAM: 01:30 p.m. An AP view of the pelvis and two views of the right hip were obtained. Femoral acetabular alignment is normal. There is cortical interruption at the right femoral neck. Features are suggestive of a subcapital hip fracture, nondisplaced. There is no dislocation. Rami are intact. SI joints and symphysis are non-widened. IMPRESSION: Features consistent with an acute right hip subcapital fracture. Dictated by: Dictated on workstation # [id number]
--- NOTE | 2018-05-10 13:34 | Diagnostic Imaging Report ---
INDICATION: Fall. TIME OF EXAM: 01:36 p.m. FINDINGS: Three views of the right elbow were obtained. Alignment is normal. Joint spaces are maintained. No fracture, dislocation, or effusion is seen. IMPRESSION: No acute bony abnormality is detected. Dictated by: Dictated on workstation # [id number]
--- NOTE | 2018-05-10 13:52 | Consultation-Cardiology ---
HPI-Cardiology Cardiology Consultation Date of Consultation 05/10/18 Date of Admission Time Seen by Provider: 13:47 Indication: hip fracture, preoperative cardiac evaluation HPI 82 years old lady with extensive cardiovascular history and congestive heart failure, sustained a fall this morning after tripping resulted in right hip fracture. She is having pain, unable to bear weight on her leg. Denied any chest pain, denied any palpitation, denied any syncope or near syncopal episodes. Denied any claudication. I was called for preoperative cardiac evaluation and risk stratification Home Medications & Allergies Allergies: Coded Allergies: NKANo Known Allergies (Verified Allergy, Unknown, 11/14/05) Home Medication List Reviewed: Yes WJN-Xauuxo-Iutvvb Hx Patient Social History Marital Status: Alcohol Use: Denies Use Recreational Drug Use: No Smoking Status: Never a Smoker 2nd Hand Smoke Exposure: Yes Recent Foreign Travel: No Recent Infectious Disease Expo: No Immunizations Up To Date Tetanus Booster (TDap): Unknown Date of Pneumonia Vaccine: May 31, 2015 Date of Influenza Vaccine: Jul 04, 2017 Past Medical History Past medical history as described below Family Medical History Significant Family History: No Pertinent Family Hx Family History: Family history: Diabetes mellitus 19 MOTHER Heart disease 19 MOTHER History of - respiratory disease 19 FATHER (PNEUMONIA- IN HIS 'S) Myocardial infarction 19 MOTHER No Family History of: Abdominal aortic aneurysm Maynor's disease Alcoholism Aphasia Cancer Cancer of colon Cataract Chest pain Congenital heart disease Congestive heart failure Cystic fibrosis Dementia Dysphagia Family history: Allergy Family history: Alzheimer's disease Family history: Arthritis Family history: Asthma Family history: Breast disease Family history: Cardiovascular disease Family history: Coronary thrombosis Family history: Gastrointestinal disease Family history: Glaucoma Family history: Hypertension Family history: Osteoporosis Family history: Thyroid disorder Headache Hearing loss Hereditary disease History of - anemia History of - disorder History of drug abuse Human immunodeficiency virus (HIV) seropositivity Hypercholesterolemia Infertile Kidney disease Parkinson's disease Prostate cancer Psychotic disorder Seizure disorder Stroke Tuberculosis Visual impairment Review of Systems Constitutional: see HPI, malaise, weakness EENTM: see HPI, no symptoms reported Respiratory: see HPI; No cough; dyspnea on exertion; No hemoptysis, No orthopnea, No phlegm, No short of breath, No stridor, No wheezing, No other Cardiovascular: see HPI; No chest pain; edema; No Hx of Intervention, No palpitations, No syncope, No vascular heart diseas, No other Gastrointestinal: no symptoms reported, see HPI Genitourinary: see HPI Musculoskeletal: see HPI, other (right hip fracture) Skin: no symptoms reported, see HPI Psychiatric/Neurological: No Symptoms Reported, See HPI Reviewed Test Results Reviewed Test Results Lab Laboratory Tests Test 05/10/18 12:36 Range/Units White Blood Count 6.5 4.3-11.0 10^3/uL Red Blood Count 3.10 L 4.35-5.85 10^6/uL Hemoglobin 10.4 L 11.5-16.0 G/DL Hematocrit 32 L 35-52 % Mean Corpuscular Volume 104 H 80-99 FL Mean Corpuscular Hemoglobin 34 25-34 PG Mean Corpuscular Hemoglobin Concent 32 32-36 G/DL Red Cell Distribution Width 13.8 10.0-14.5 % Platelet Count 125 L 130-400 10^3/uL Mean Platelet Volume 11.0 H 7.4-10.4 FL Neutrophils (%) (Auto) 78 H 42-75 % Lymphocytes (%) (Auto) 14 12-44 % Monocytes (%) (Auto) 6 0-12 % Eosinophils (%) (Auto) 2 0-10 % Basophils (%) (Auto) 1 0-10 % Neutrophils # (Auto) 5.1 1.8-7.8 X 10^3 Lymphocytes # (Auto) 0.9 L 1.0-4.0 X 10^3 Monocytes # (Auto) 0.4 0.0-1.0 X 10^3 Eosinophils # (Auto) 0.1 0.0-0.3 10^3/uL Basophils # (Auto) 0.0 0.0-0.1 10^3/uL Prothrombin Time 24.2 H 12.2-14.7 SEC INR Comment 2.2 H 0.8-1.4 Activated Partial Thromboplast Time 37 H 24-35 SEC Sodium Level 137 135-145 MMOL/L Potassium Level 4.3 3.6-5.0 MMOL/L Chloride Level 101 98-107 MMOL/L Carbon Dioxide Level 27 21-32 MMOL/L Anion Gap 9 5-14 MMOL/L Blood Urea Nitrogen 27 H 7-18 MG/DL Creatinine 1.58 H 0.60-1.30 MG/DL Estimat Glomerular Filtration Rate 31 BUN/Creatinine Ratio 17 Glucose Level 111 H 70-105 MG/DL Calcium Level 9.4 8.5-10.1 MG/DL Corrected Calcium 9.5 8.5-10.1 MG/DL Magnesium Level 2.4 1.8-2.4 MG/DL Total Bilirubin 1.0 0.1-1.0 MG/DL Aspartate Amino Transf (AST/SGOT) 20 5-34 U/L Alanine Aminotransferase (ALT/SGPT) 16 0-55 U/L Alkaline Phosphatase 60 40-136 U/L Troponin I < 0.30 <0.30 NG/ML Total Protein 6.9 6.4-8.2 GM/DL Albumin 3.9 3.2-4.5 GM/DL Physical Exam Vital Signs Vital Signs - First Documented 05/10/18 05/10/18 12:31 12:45 Temp 98.0 Pulse 86 Resp 16 B/P (MAP) 114/78 (90) Pulse Ox 91 O2 Delivery Room Air O2 Flow Rate 2.00 Capillary Refill : Less Than 3 Seconds Height, Weight, BMI Height: 5'5.00" Weight: 135lbs. 0.0oz. 61.889531vm; 21.0 BMI Method:Stated General Appearance: WD/WN, Mild Distress Eyes: Bilateral Eye Normal Inspection, Bilateral Eye PERRL, Bilateral Eye EOMI HEENT: PERRL/EOMI, TMs Normal, Normal ENT Inspection, Pharynx Normal Neck: Full Range of Motion, Normal Inspection, Non Tender, Supple, Carotid Bruit Respiratory: Chest Non Tender, Lungs Clear, Normal Breath Sounds, No Accessory Muscle Use, No Respiratory Distress Cardiovascular: No Edema, No JVD, Systolic Murmur, Gallop/S3 Gastrointestinal: Normal Bowel Sounds, No Organomegaly, No Pulsatile Mass, Non Tender, Soft Back: Normal Inspection Extremity: Normal Capillary Refill, Other (right hip fracture) Neurologic/Psychiatric: Alert, Oriented x3, Normal Mood/Affect, Motor Weakness Skin: Normal Color, Warm/Dry Lymphatic: No Adenopathy A/P-Cardiology Admission Diagnosis Right hip fracture Mitral valve stenosis Aortic valve stenosis Congestive heart failure, chronic compensated left ventricular systolic dysfunction, nonischemic cardiomyopathy Assessment/Plan Right hip fracture, status post fall and injury to the hip. Managed by Dr. Ortiz History of mild coronary artery disease, nonobstructive disease by cardiac catheterization in September 2014, stress test in December 2016 showing no ischemia Congestive heart failure, chronic left ventricular systolic dysfunction, nonischemic cardiomyopathy, secondary to valvular heart disease. 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 Severe mitral valve stenosis, rheumatic valve, history of severe mitral regurgitation and pulmonary hypertension with estimated PA pressure of 55 mmHg, severely dilated left atrium. She was seen Dr. Page at in the past and she was considered high risk for valve surgery. She is not a candidate for mitral clip surgery due to her severe mitral stenosis, patient was referred for TMVR with Dr. Davila at , she decided to continue with conservative management and will consider the procedure if she become more symptomatic. 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 Last echocardiogram was done in April 2018 and the valve was functioning normally Peripheral vascular disease, patient has venous insufficiency on the right side that required ablation,peripheral angiogram May 2017, intervention to the anterior tibial artery, the wound has healed then developed a new ulcer after a trauma. Did balloon angioplasty to the right anterior tibial artery proximal portion has significant improvement the distal portion is occluded and did not improve, the posterior tibial artery and peroneal arteries were occluded with no collaterals in that area. The right SFA has multiple segment of moderate to severe stenosis, balloon angioplasty to the mid SFA with good results. Abdominal aorta has moderate disease, the left SFA has mild to moderate disease down to the trifurcation. We'll continue with medical therapy, the ulcer on her foot is completely healed. Continue to monitor Carotid stenosis, continue to monitor, followed by heart and vascular care. 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 followed and monitored by heart and vascular care. Hypertension, restart home medications and monitor Hyperlipidemia, continue on current medication monitor lipids Preoperative cardiac evaluation, patient is considered at intermediate to high risk for perioperative cardiovascular complication due to her multiple comorbid condition in addition to the chronic anticoagulation. I will give her fresh frozen plasma and monitor her INR closely and will use IV Lasix as needed. Decision regarding the surgery, risks versus benefits is deferred to the surgeon PRANEETH SHUKLA MD May 10, 2018 13:52
--- OUTSIDE RECORDS SUMMARY | 2018-05-10 14:01 | XMS REPORT | Encounter Summary ---
Author Author [facility] Organization [facility] Address Unknown Phone Unavailable Care Team Providers Care Air Conditioning Installer Supervisor Name Role Phone Jake Prabhakar MD PCP Kristi Charlton Unavailable Eliceo Parker MD 21 Reason for Visit * Reason Comments PVD H&P for STEVEN CAD Atrial fibrillation Cardiomyopathy Encounter Details Date Type Department Care Team Description 02/18/2018 Office Visit [facility] Cardiology Ainsa Mccormick APRN-C PVD (H&P for STEVEN ); CAD; [place] [address] [address] Atrial fibrillation; [address] [place] [address] [place] [address] [phone] Social History Tobacco Use Types Packs/Day Years [...] severe tricuspid regurgitation as well. Her outside lens blocker wanted her to be evaluated for potential transcatheter mitral valve replacement as part of the [place] trial. She is scheduled to see Dr. 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 [...] (congestive heart failure), NYHA class 3 ([facility]) 2011 S/P aortic valve replacement with prosthetic valve 03/19/20121998 for severe AI roasterman current use of anticoagulant 03/19/2012 HLD (hyperlipidemia) 03/19/2012 PVD (peripheral vascular disease) ([facility]) 03/19/2012 Atrial fibrillation ([facility]) 03/19/2012 Permanent as of 2011 90+% paced-DDIR at 70 on cardizem 240, dig .125, coreg 6.25bid 08/07/12 Initiated on digoxin 0.125mcg daily to assist with BiV pacing pacing Biventricular ICD (implantable cardioverter-defibrillator) in place 2011 MDT DC PPM- L side 200408/07/12 [facility] [facility] COST RECOVERY TECHNICIAN-D upgrade implant + DFTs with Dr. Ceja. [...] unspecified etiology Yes Atrial fibrillation, unspecified type ([facility]) PVD (peripheral vascular disease) ([facility]) Chronic systolic CHF (congestive heart failure), NYHA class 3 ([facility]) Cardiomyopathy, unspecified type ([facility]) S/P aortic valve replacement with prosthetic valve Biventricular ICD (implantable cardioverter-defibrillator) in place Assessment and Plan 1. Severe mitral regurgitation with mitral stenosis. She is having a repeat STEVEN today to further assess the mitral valve to determine if she is a candidate for enrollment in the [place] trial or to see if there are [...] for questions. Specimen Blood Performing Organization Address City/[facility]/Zipcode Phone Number [facility] [address] [place] [place] [phone] * PROTIME INR (PT) (02/18/2018 10:06 AM) INR 1.6 (H) 0.8 - 1.2 [facility] Specimen Blood Performing Organization Address City/[facility]/Zipcode Phone Number [facility] [address] [place] [address] in this encounter Visit Diagnoses Diagnosis Mitral valve insufficiency, unspecified etiology - Primary Atrial fibrillation, unspecified type ([facility]) PVD (peripheral vascular disease) ([facility]) Peripheral vascular disease, unspecified Chronic systolic CHF (congestive heart failure), NYHA class 3 ([facility]) Chronic systolic heart failure Cardiomyopathy, unspecified type ([facility]) S/P aortic valve replacement with prosthetic valve Heart valve replaced by other means Biventricular ICD (implantable cardioverter-defibrillator) in place
--- OUTSIDE RECORDS SUMMARY | 2018-05-10 14:01 | XMS REPORT | Clinical Summary ---
Author Author [facility] Organization [facility] Address Unknown Phone Unavailable Care Team Providers Care Senior Contracts Administrator Name Role Phone Jake Prabhakar MD PCP Kristi Charlton Unavailable Eliceo Parker MD 21 Source Comments Some departments are not documenting in the electronic medical record. If you do not see the information that you expected, contact Release of Information in the Health Information Management department at [phone] for further assistance in locating additional records.[facility] Allergies No Known Allergies Current [...] S/P aortic valve replacement with prosthetic valve, prison current use of anticoagulant, HLD (hyperlipidemia), PVD [...] block (RBBB) with posterior hemiblock 03/21/2012 Cardiomyopathy ([facility]) 03/21/2012 Overview: : EF 30, dilated LV. Severe MR & TR PAP 55 (42 a year earlier, EF 35, MR and TR mod-severe). AVR "OK" Chronic systolic CHF (congestive heart failure), NYHA class 3 ([facility]) 2011 Last Assessment & Plan: [...] assessed in November and demonstrated normal function prison current use of anticoagulant 03/19/2012 HLD (hyperlipidemia) 03/19/2012 PVD (peripheral vascular disease) ([facility]) 03/19/2012 Atrial fibrillation ([facility]) 03/19/2012 Overview: Permanent as of 2011 90+% paced-DDIR at 70 on cardizem 240, dig .125, coreg 6.25bid 08/07/12 Initiated on digoxin 0.125mcg daily to assist with BiV pacing pacing L ast Assessment & Plan: Continues to be in permanent atrial fibrillation. Overall well rate controlled. Biventricular ICD (implantable cardioverter-defibrillator) in place 2011 Overview: MDSebastián DC PPM- L side 200408/07/12 [facility] RIPPLER-D upgrade implant + DFTs with Dr. Ceja. Roxy cintron Assessment & Plan: Device was checked today and demonstrated normal function. See device check and cardiovascular studies for further details. Resolved Problems Problem Noted Date Resolved Date ERRONEOUS ENCOUNTER--DISREGARD 09/01/2015 02/18/2018 Dilated cardiomyopathy (HCC) 03/18/2012 03/21/2012 Encounters Date Type Specialty Care Team Description 02/18/2018 [facility] Cardiology Anisa Mccormick APRN-C Encounter 02/18/2018 Office Visit Cardiothoracic Surgery Eren Ashley MD Mitral valve insufficiency, unspecified etiology (Primary Dx); Chronic systolic CHF (congestive heart failure), NYHA class 3 (HCC); Atrial fibrillation, unspecified type (HCC); Mitral valve stenosis, unspecified etiology; Aortic valve insufficiency, etiology of cardiac valve disease unspecified; S/P aortic valve replacement with prosthetic valve 02/18/2018 [facility] Cardiology Anisa Mccormick APRN-C Encounter 02/18/2018 Office Visit Cardiology Anisa Mccormick APRN-C PVD (H&P for STEVEN ); CAD; Atrial fibrillation; Cardiomyopathy 02/15/2018 Telephone Cardiology Marguerite Fam RN STEVEN Pre-Procedure Instuctions from Last 3 Months Family History Medical History Relation Name Comments Coronary Artery Disease Mother of [place] Diabetes Mother Hyperlipidemia Mother Hypertension Mother Relation [...] 36.6 C (97.9 F) 08/09/2012 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
--- OUTSIDE RECORDS SUMMARY | 2018-05-10 14:01 | XMS REPORT | Encounter Summary ---
Author Author [facility] Organization [facility] Address Unknown Phone Unavailable Care Team Providers Care Signaler Name Role Phone Jake Prabhakar MD PCP Kristi Charlton Unavailable Eliceo Parker MD 21 Reason for Referral * Test Status Reason Specialty Diagnoses / Referred By Referred To Procedures Contact Contact No Auth Needed Cardiology Diagnoses Anisa Mccormick Bhg Card Echopv Mitral valve UNIT COORDINATOR-C [facility] insufficiency, [id number] etiology [address] [place], [place] [address] rocDealstruck [address] Phone: TRANSESOPHAGEAL ECHOCARDIOGRAM [phone] [place] ECHO Fax: TRANSESOPHAG R-T [phone] 2D W/PRB IMG ACQUISJ I&R * Test Status Reason Specialty Diagnoses / Referred By Referred To Procedures Contact Contact No Auth Needed Cardiology Diagnoses Anisa Mccormick Bhg Card Echopv Mitral valve UNIT COORDINATOR-C [facility] insufficiency, [id number] etiology [address] [place], [place] [address] rocedures [address] Phone: TRANSESOPHAGEAL ECHOCARDIOGRAM [phone] [place] ECHO Fax: TRANSESOPHAG R-T [phone] 2D W/PRB IMG ACQUISJ I&R Reason for Visit * Test Status Reason Specialty Diagnoses / Referred By Referred To Procedures Contact Contact No Auth Needed Cardiology Diagnoses Anisa Mccormick, mert Card Echopv Mitral valve UNIT COORDINATOR-C [facility] insufficiency, [id number] etiology [address] [place], [place] [address] rocedures [address] Phone: TRANSESOPHAGEAL ECHOCARDIOGRAM [phone] [place] ECHO Fax: TRANSESOPHAG R-T [phone] 2D W/PRB IMG ACQUISJ I&R Encounter Details Date Type Department Care Team Description 02/18/2018 [facility] Cardiology Anisa Mccormick APRN-C Encounter [facility] [address] [place] [address] [place] [address] [phone] Social History Tobacco Use Types Packs/Day Years [...] S/P aortic valve replacement with prosthetic valve, jail current use of anticoagulant, HLD (hyperlipidemia), PVD (peripheral vascular disease) ([facility]), Atrial fibrillation (HCC), CAD (coronary artery disease), 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
--- OUTSIDE RECORDS SUMMARY | 2018-05-10 14:01 | XMS REPORT | Encounter Summary ---
Author Author [facility] Organization [facility] Address Unknown Phone Unavailable Care Team Providers Care Answering Service Operator Name Role Phone Jake Prabhakar MD PCP Kristi Charlton Unavailable Eliceo Parker MD 21 Reason for Visit * Reason Comments Cardiac Eval MR/[place] Evalutaion * Consult, Test & Treat Status Reason Specialty Diagnoses / Referred By Referred To Procedures Contact Contact Closed Specialty Cardiothoracic Diagnoses Eliceo Parker Bhg [facility] Mitral valve MD [facility], [address] [facility] [address] [place] [address] Phone: Fax: Encounter Details Date Type Department Care Team Description 02/18/2018 Office Visit [facility] Eren Ashley MD Mitral valve [facility] [address] [facility] [address] unspecified etiology [address] [place] [address] (Primary Dx); [place] [address] Chronic systolic CHF [phone] (congestive heart failure), NYHA class 3 (HCC); [...] severe tricuspid regurgitation as well. Her outside theatre director wanted her to be evaluated for potential transcatheter mitral valve replacement as part of the [place] trial. Ms. Mcfarland has been doing fairly well and is relatively stable. She states she started Entresto about a year ago and since then has had improvement in heart failure symptoms. She denies any chest pain, shortness of breath, lower extremity edema, palpitations, near-syncope or syncope. She does sleep with O2 at night. 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 [...] which can be done by her primary theatre director to ensure she is not having any changes in her LV function. If she has any decline, we can consider STEVEN and further workup for the [place] trial. We will plan to see her [...] Ashley MD Cardiovascular and Thoracic Surgery [facility], [place] [email or web address] in this encounter Plan of Treatment [...]
--- OUTSIDE RECORDS SUMMARY | 2018-05-10 14:01 | XMS REPORT | Encounter Summary ---
Author Author [facility] Organization [facility] Address Unknown Phone Unavailable Care Team Providers Care Well Puller Name Role Phone Jake Prabhakar MD PCP Kristi Charlton Unavailable Eliceo Parker MD 21 Encounter Details Date Type Department Care Team Description 02/18/2018 [facility] Cardiology Anisa Mccormick APRN-Ragini Encounter [place] [address] [address] [facility] [address] [place] [address] [place] [address] [phone] Social History Tobacco Use Types Packs/Day Years [...] S/P aortic valve replacement with prosthetic valve, care home current use of anticoagulant, HLD (hyperlipidemia), PVD (peripheral vascular disease) ([facility]), Atrial fibrillation (HCC), CAD (coronary artery disease), [...] Organization Address City/State/Zipcode Phone Number [facility] [address] [place] [phone] * BASIC METABOLIC PANEL (02/18/2018 10:06 AM) [...] Organization Address City/State/Zipcode Phone Number [facility] [address] [place] [address] in this encounter Visit Diagnoses Diagnosis Atrial fibrillation, unspecified type (HCC)
--- OUTSIDE RECORDS SUMMARY | 2018-05-10 14:01 | XMS REPORT | Encounter Summary ---
Author Author [facility] Organization [facility] Address Unknown Phone Unavailable Care Team Providers Care Dry Cans Operator Name Role Phone Jake Prabhakar MD PCP Kristi Charlton Unavailable Eliceo Parker MD 21 Reason for Visit * Reason Comments STEVEN Pre-Procedure Instuctions Encounter Details Date Type Department Care Team Description 02/15/2018 Telephone [facility] Cardiology Marguerite Fam RN STEVEN [facility] [address] [place] [address] Social History Tobacco Use Types Packs/Day Years [...] to take and hold. Pt will have ems driver with her. No additional questions at this time. in this encounter Plan of Treatment Not on fileas of this encounter Visit Diagnoses Not on filein this encounter
[2018-05-10 14:05] LABS: BILIRUBIN,URINE NEGATIVE (NEGATIVE); CLARITY,URINE CLEAR; COLOR,URINE YELLOW; GLUCOSE, URINE (UA) NEGATIVE (NEGATIVE); KETONES,URINE NEGATIVE (NEGATIVE); LEUKOCYTE ESTERASE ,URINE NEGATIVE (NEGATIVE); NITRITE,URINE NEGATIVE (NEGATIVE); PH,URINE 8 (5-9); PROTEIN,URINE NEGATIVE (NEGATIVE); UROBILINOGEN,URINE NORMAL (NORMAL)
[2018-05-10] MEDS ORDERED: fentaNYL INJECTION 100 MCG/2 ML AMP IVP STA (14:09)
[2018-05-10] MEDS ORDERED: ONDANSETRON 4 MG/2 ML (SDV) Z0FRAN IV PRN (14:15)
[2018-05-10] MEDS ORDERED: MILK OF MAGNESIA 400 MG/5 ML 30 ML UDC PO PRN (14:15)
[2018-05-10] MEDS ORDERED: ANTACID SUSP 30 ML UDC (MYLANTA) PO PRN (14:15)
[2018-05-10 14:16] LABS: BACTERIA,URINE NEGATIVE /HPF
[2018-05-10] MEDS ORDERED: ACETAMINOPHEN 325 MG TABLET PO PRN (14:30)
--- NOTE | 2018-05-10 14:47 | History & Physical-Hospitalist ---
History of Present Illness HPI/Chief Complaint Pt is [id number] with a PMH of aortic valve replacement, severe mitral valve stenosis, mild CAD, HTN, CHF, PVD, AAA who presented to the ER for hip pain after a fall. 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 She was letting her dog out to go to the bathroom when she trip and fell hurting her hip. She was down for about 5 minutes before she was able to crawl in and call someone for help. She was found to have a right hip fracture. She states her pain is well controlled at this time without pain medication. She has no other complaints. Source: patient Exam Limitations: no limitations Date Seen 05/10/18 Time Seen by Provider: 14:42 Attending Physician Venancio Walker MD PCP Jake Prabhakar DO Referring Physician Date of Admission May 10, 2018 at 1:52 pm Home Medications & Allergies Home Medications Reviewed patient Home Medication Reconciliation performed by pharmacy medication reconciliations architectural technician and/or nursing. Patients Allergies have been reviewed. Allergies Allergies Coded Allergies NKANo Known Allergies (Verified Allergy, Unknown, 11/14/05) Past [id number]-[id number] Hx Past Med/Social Hx: Reviewed Nursing Past Med/Soc Hx Patient Social History Marrital Status: Alcohol Use: Denies Use Recreational Drug Use: No Smoking Status: Never a Smoker 2nd Hand Smoke Exposure: Yes Recent Foreign Travel: No Contact w/other who traveled: No Recent Infectious Disease Expo: No Immunizations Up To Date Tetanus Booster (TDap): Unknown Pediatric: Yes Date of Pneumonia Vaccine: May 31, 2015 Date of Influenza Vaccine: Jul 04, 2017 Seasonal Allergies Seasonal Allergies: Yes ("Summertime") Past Medical History Surgeries: Abdominal, Cardiac, Section, Defibrillator, Eye Surgery, Gallbladder, Pacemaker, Valve Replacement Currently Using CPAP: No Currently Using BIPAP: No Cardiac: Atrial Fibrillation, Cardiomyopathy, Chronic Edema/Swelling, Coronary Artery Disease, Heart Murmur, High Cholesterol, Hypertension, Peripheral Vascular, Valvular Heart Disease Reproductive: No Sexually Transmitted Disease: No HIV/AIDS: No Gastrointestinal: Gall Bladder Disease Musculoskeletal: Osteoporosis, Arthritis Endocrine: Hypothyroidsim HEENT: Cataract Loss of Vision: Denies Hearing Impairment: Denies History of Blood Disorders: No Adverse Reaction to Blood Burch: No Family History Reviewed Nursing Family Hx Family history: Diabetes mellitus 19 MOTHER Heart disease 19 MOTHER History of - respiratory disease 19 FATHER (PNEUMONIA- IN HIS 20'S) Myocardial infarction 19 MOTHER No Family History of: Abdominal aortic aneurysm Maynor's disease Alcoholism Aphasia Cancer Cancer of colon Cataract Chest pain Congenital heart disease Congestive heart failure Cystic fibrosis Dementia Dysphagia Family history: Allergy Family history: Alzheimer's disease Family history: Arthritis Family history: Asthma Family history: Breast disease Family history: Cardiovascular disease Family history: Coronary thrombosis Family history: Gastrointestinal disease Family history: Glaucoma Family history: Hypertension Family history: Osteoporosis Family history: Thyroid disorder Headache Hearing loss Hereditary disease History of - anemia History of - disorder History of drug abuse Human immunodeficiency virus (HIV) seropositivity Hypercholesterolemia Infertile Kidney disease Parkinson's disease Prostate cancer Psychotic disorder Seizure disorder Stroke Tuberculosis Visual impairment No Pertinent Family Hx Review of Systems Constitutional: No chills, No fever EENTM: No blurred vision, No double vision, No nose congestion, No throat pain Respiratory: No cough, No dyspnea on exertion, No short of breath Cardiovascular: No chest pain, No edema, No palpitations Gastrointestinal: No abdominal pain, No constipation, No diarrhea, No nausea, No vomiting Genitourinary: No dysuria, No frequency Musculoskeletal: joint pain; No muscle pain Skin: No lesions, No rash Psychiatric/Neurological: Denies Headache, Denies Numbness, Denies Tingling Physical Exam Physical Exam Vital Signs Vital Signs - First Documented 05/10/18 05/10/18 12:31 12:45 Temp 98.0 Pulse 86 Resp 16 B/P (MAP) 114/78 (90) Pulse Ox 91 O2 Delivery Room Air O2 Flow Rate 2.00 Capillary Refill : Less Than 3 Seconds Height, Weight, BMI Height: 5'5.00" Weight: 135lbs. 0.0oz. 61.009411zw; 21.0 BMI Method:Stated General Appearance: No Apparent Distress, WD/WN HEENT: PERRL/EOMI, Moist Mucous Membranes Neck: Non Tender, Supple Respiratory: Lungs Clear, No Respiratory Distress Cardiovascular: Regular Rate, Rhythm, No Edema, Systolic Murmur Gastrointestinal: Normal Bowel Sounds, Non Tender, Soft Extremity: Normal Capillary Refill, No Calf Tenderness Neurologic/Psychiatric: Alert, Oriented x3, Normal Mood/Affect Skin: Normal Color, Warm/Dry Results Results/Procedures Labs Laboratory Tests 05/10/18 12:36 Patient resulted labs reviewed. Imaging: Reviewed Imaging Films, Reviewed Imaging Report Assessment/Plan Admission Diagnosis Right hip fracture Admission Status: Inpatient Order (span 2 midnights) Reason for Inpatient Admission: Need orthopedic resolution Diagnosis/Problems Diagnosis/Problems (1) Closed right hip fracture Status: Acute Assessment & Plan: Ortho consulted, appreciate recs Fentanyl for pain Likely OR tomorrow PT/OT after surgery Will consult IRU after as well Preoperative risk assessment reveals her to be at higher risk for complication than average- discussed with patient and at this time would still prefer to undergo operative repair but to discuss with surgeon Qualifiers: Encounter type: initial encounter Qualified Codes: S72.001A - Fracture of unspecified part of neck of right femur, initial encounter for closed fracture (2) Aortic valve replaced Status: Chronic Assessment & Plan: s/p Aortic valve replacement INR 2.[address] Elena Pike in AM (3) CHF (congestive heart failure) Onset Date: 05/20/2014 Status: Chronic Assessment & Plan: No signs of exacerbation Lasisx being given with FFP Cardiology consulted, appreciate recs Qualifiers: Heart failure type: systolic Heart failure chronicity: chronic Qualified Codes: I50.22 - Chronic systolic (congestive) heart failure (4) PVD (peripheral vascular disease) Assessment & Plan: Cardiology consulted, appreciate recs (5) HTN (hypertension) Status: Chronic Assessment & Plan: Well controlled, trend Qualifiers: Hypertension type: essential hypertension Qualified Codes: I10 - Essential (primary) hypertension (6) Chronic anemia Status: Acute Assessment & Plan: Hgb 10.6, stable from December Transfuse for hemoglobin less than 8 due to cardiac risk factors (7) Prophylactic measure Assessment & Plan: INR 2.2- hold Lovenox for OR FFP given HH diet today, NPO after midnight VENANCIO WALKER MD May 10, 2018 2:47 pm
[2018-05-10] MEDS ORDERED: CLOP75TA69 PO (15:04)
[2018-05-10] MEDS ORDERED: NS IV 500 ML 500 ML ONE (15:13)
--- NOTE | 2018-05-10 15:39 | Progress Note-Standard ---
Standard Progress Note Progress Notes/Assess & Plan Date Seen by Provider: May 10, 2018 Time Seen by Provider: 15:38 Progress/Assessment & Plan consult dictated spoke with family and patient at length plan for right hip bipolar replacement in AM WALT,ARCENIO Rooney MD May 10, 2018 15:39
[2018-05-10] MEDS ORDERED: NON-FORMULARY MEDICATION 1 EA EA (Ropinirole HCl 0.5 MG) PO PRN (15:45)
[2018-05-10] MEDS ORDERED: guaiFENesin (MUCINEX) 600 MG TAB PO PRN (15:45)
[2018-05-10] MEDS ORDERED: MECLIZINE 25 MG (ANTIVERT) TAB PO PRN (15:45)
--- NOTE | 2018-05-10 15:53 | Occ Therapy Progress Note ---
Therapy Progress Note Order received for OT eval and treat. Chart review completed. Pt admitted with right hip fracture. Per RN pt will be having surgery tomorrow (05/11/18). Will hold therapy at this time and initiate after surgery as appropriate. KAN FLEMING OT May 10, 2018 15:53
[2018-05-10] MEDS: HYDROcodone/APAP 5 MG/325 MG (LORTAB) TAB PO PRN ×2 (15:58→22:12)
--- NOTE | 2018-05-10 17:08 | CONSULTATION REPORT ---
DATE OF SERVICE: 05/10/2018 INPATIENT CONSULTATION REASON FOR CONSULTATION: Right femoral neck fracture. HISTORY OF PRESENT ILLNESS: The patient is an 82-year-old active female with multiple medical problems, who fell at home today. She caught her foot as she was leaving her door. She presented with complaints of right hip pain and was found to have a right femoral neck fracture. The patient denies any antecedent pain. PAST MEDICAL HISTORY: Significant for congestive heart failure, pacemaker placement, peripheral vascular disease, valvular heart disease with valve replacement, cardiomyopathy, and hypothyroidism. PHYSICAL EXAMINATION: GENERAL: The patient is tender over her right hip. EXTREMITIES: There are no skin lesions noted. She has intact dorsiflexion and plantarflexion of the toes. Pulses are symmetric with brisk capillary refill. DIAGNOSTIC DATA: Radiographs reveal an impacted right femoral neck fracture. IMPRESSION: Right femoral neck fracture closed, minimally displaced. PLAN: Plan is right hip bipolar replacement. We discussed risks, benefits, options, ramifications and recovery at length with the patient and her family. They understand and wished to proceed. They understand that she has a higher risk of morbidities and mortality. Job ID: [id number] DocumentID: [id number] Dictated Date: 05/10/2018 15:41:23 Oracle Forms Developer Date: 05/10/2018 17:07:28 Dictated By: ARCENIO GODOY MD
[2018-05-10] MEDS: fentaNYL INJECTION 100 MCG/2 ML AMP IVP PRN ×3 (17:45→23:25)
[2018-05-10] MEDS ORDERED: FUROSEMIDE 40 MG/4 ML INJ (LASIX) IVP NR (18:00)
[2018-05-10] MEDS: MEXILETINE 150 MG (MEXITIL) CAPSULE PO SCH (20:40)
[2018-05-10] MEDS ORDERED: MEXILETINE HCL 150 MG PO SCH (21:00)
[2018-05-10] MEDS: rOPINIRole 0.25 MG (REQUIP) TAB PO PRN (22:12)
[2018-05-10 23:12] LABS: INR 1.9 (0.8-1.4); PROTHROMBIN TIME PATIENT 21.6 SEC (12.2-14.7)
[2018-05-11] VITALS (8 sets, daily range): BP systolic 110–118; BP diastolic 53–58
[2018-05-11] MEDS: fentaNYL INJECTION 100 MCG/2 ML AMP IVP PRN ×4 (02:27→18:25)
[2018-05-11 05:26] LABS: HEMOGLOBIN 10.5 G/DL (11.5-16.0); MEAN PLATELET VOLUME 11.3 FL (7.4-10.4); RED BLOOD COUNT 3.19 10^6/uL (4.35-5.85); RED CELL DISTRIBUTION WIDTH 14.1 % (10.0-14.5); WHITE BLOOD COUNT 7.8 10^3/uL (4.3-11.0)
[2018-05-11 05:36] LABS: PROTHROMBIN TIME PATIENT 22.6 SEC (12.2-14.7)
[2018-05-11 05:46] LABS: ALBUMIN 3.7 GM/DL (3.2-4.5); BILIRUBIN,TOTAL 1.8 MG/DL (0.1-1.0); CALCIUM 8.9 MG/DL (8.5-10.1); CREATININE SERUM 1.44 MG/DL (0.60-1.30); POTASSIUM 4.3 MMOL/L (3.6-5.0); TOTAL PROTEIN 6.8 GM/DL (6.4-8.2)
[2018-05-11] MEDS ORDERED: ACETAMINOPHEN 650 MG SUPP (TYLENOL) PR ONE (06:45)
[2018-05-11] MEDS ORDERED: diphenhydrAMINE 50 MG/ML INJ (BENADRYL) IVP ONE (06:45)
[2018-05-11] MEDS ORDERED: BUPIVACAINE 0.5% 30 ML (SENSORCAINE) VIAL ONE (06:53)
[2018-05-11] MEDS ORDERED: ACETAMINOPHEN 325 MG TABLET PO PRN (07:30)
[2018-05-11] MEDS ORDERED: diphenhydrAMINE 50 MG/ML INJ (BENADRYL) IVP PRN (07:30)
[2018-05-11] MEDS ORDERED: ONDANSETRON 4 MG/2 ML (SDV) Z0FRAN IVP PRN ×2 (07:30→09:15)
[2018-05-11] MEDS ORDERED: TEMAZEPAM 15 MG (RESTORIL) CAP PO PRN (07:30)
--- NOTE | 2018-05-11 07:35 | Progress Note-Pre Operative ---
Pre-Operative Progress Note H&P Reviewed The H&P was reviewed, patient examined and no changes noted. Date Seen by Provider: May 11, 2018 Time Seen by Provider: 07:35 Date H&P Reviewed: May 11, 2018 Time H&P Reviewed: 07:35 Pre-Operative Diagnosis: right femoral neck fracture ARCENIO GODOY MD May 11, 2018 07:35
--- NOTE | 2018-05-11 07:36 | Progress Note-Post Operative ---
Post-Operative Progess Note Surgeon (s)/Compensation Analyst (s) Surgeon ARCENIO GODOY MD Compensation Analyst: Cristian Berger Pre-Operative Diagnosis right femoral neck fracture Post-Operative Diagnosis right femoral neck fracture Procedure & Operative Findings Date of Procedure 05/11/18 Procedure Performed/Findings right hip bipolar replacement Anesthesia Type GETA Estimated Blood Loss Estimated blood loss (mL): 200 ml Specimens/Packing Specimens Removed none sent Packing: none ARCENIO GODOY MD May 11, 2018 07:36
[2018-05-11] MEDS ORDERED: ceFAZolin 2 GM/50 ML PRE-MIX IVPB IV NR (07:45)
[2018-05-11] MEDS ORDERED: ceFAZolin 1,000 MG/10 ML (ANCEF) VIAL IV ONE (07:45)
[2018-05-11] MEDS ORDERED: fentaNYL INJECTION 100 MCG/2 ML AMP ONE ×2 (07:49→08:25)
[2018-05-11] MEDS ORDERED: ETOMIDATE IV SOLN 20 MG/10 ML VIAL ONE (08:32)
--- NOTE | 2018-05-11 08:37 | Progress Note-Hospitalist ---
Subjective HPI/CC On Admission Date Seen by Provider: May 11, 2018 Time Seen by Provider: 08:35 Pt is [id number] with a PMH of aortic valve replacement, severe mitral valve stenosis, mild CAD, HTN, CHF, PVD, AAA who presented to the ER for hip pain after a fall. 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 She was letting her dog out to go to the bathroom when she trip and fell hurting her hip. She was down for about 5 minutes before she was able to crawl in and call someone for help. She was found to have a right hip fracture. She states her pain is well controlled at this time without pain medication. She has no other complaints. Subjective/Events-last exam Pt reports feeling well today. Had pain overnight. Improved with pain medication. Objective Exam Vital Signs Vital Signs Date Time Temp Pulse Resp B/P (MAP) Pulse Ox O2 Delivery O2 Flow Rate FiO2 05/11/18 07:15 100.3 81 20 113/53 93 Nasal Cannula 3.00 Capillary Refill : Less Than 3 SecondsLess Than 3 Seconds General Appearance: No Apparent Distress, WD/WN Respiratory: Lungs Clear, No Respiratory Distress Cardiovascular: Regular Rate, Rhythm, Systolic Murmur Gastrointestinal: Normal Bowel Sounds, Soft Neurologic/Psychiatric: Alert, Oriented x3 Results/Procedures Lab Laboratory Tests 05/10/18 12:36 05/11/18 04:54 Patient resulted labs reviewed. Imaging: Reviewed Imaging Films, Reviewed Imaging Report Assessment/Plan Assessment and Plan Assess & Plan/Chief Complaint hip fracture Diagnosis/Problems Diagnosis/Problems (1) Closed right hip fracture Status: Acute Assessment & Plan: Ortho consulted, appreciate recs Fentanyl for pain OR today PT/OT after surgery Will consult IRU after as well Preoperative risk assessment reveals her to be at higher risk for complication than average- discussed with patient and family Qualifiers: Encounter type: initial encounter Qualified Codes: S72.001A - Fracture of unspecified part of neck of right femur, initial encounter for closed fracture (2) Aortic valve replaced Status: Chronic Assessment & Plan: s/p Aortic valve replacement INR 2.0- third dose of FFP given this AM (3) CHF (congestive heart failure) Onset Date: 05/20/2014 Status: Chronic Assessment & Plan: No signs of exacerbation Lasix being given with FFP Cardiology consulted, appreciate recs Qualifiers: Heart failure type: systolic Heart failure chronicity: chronic Qualified Codes: I50.22 - Chronic systolic (congestive) heart failure (4) PVD (peripheral vascular disease) Assessment & Plan: Cardiology consulted, appreciate recs (5) HTN (hypertension) Status: Chronic Assessment & Plan: Well controlled, trend Qualifiers: Hypertension type: essential hypertension Qualified Codes: I10 - Essential (primary) hypertension (6) Chronic anemia Status: Acute Assessment & Plan: Hgb 10.5, stable Transfuse for hemoglobin less than 8 due to cardiac risk factors (7) Prophylactic measure Assessment & Plan: INR 2.0 NPO Clinical Quality Measures DVT/VTE Risk/Contraindication: Risk Factor Score Per Nursin RFS Level Per Nursing on Admit: 4+=Very High VENANCIO ARREAGA MD May 11, 2018 08:37
[2018-05-11] MEDS ORDERED: ONDANSETRON 4 MG/2 ML (SDV) Z0FRAN ONE (08:48)
[2018-05-11] MEDS ORDERED: ISOFLURANE (FORANE) 15 ML/15 MIN INHALATION ONE ×4 (08:48→09:15)
[2018-05-11] MEDS ORDERED: ROCURONIUM 10 MG/ML 5 ML SYRINGE IV ONE (08:49)
[2018-05-11] MEDS: MEXILETINE 150 MG (MEXITIL) CAPSULE PO SCH ×2 (09:00→14:05)
[2018-05-11] MEDS: SENNOSIDES 8.6 MG (SENOKOT) TAB PO SCH ×2 (09:00→21:19)
[2018-05-11] MEDS ORDERED: morphine INJ 10 MG/ML 1ML (SYR OR VIAL) IVP ONE (09:15)
[2018-05-11] MEDS ORDERED: fentaNYL INJECTION 100 MCG/2 ML AMP IVP ONE (09:15)
[2018-05-11] MEDS ORDERED: FUROSEMIDE 40 MG/4 ML INJ (LASIX) ONE (09:47)
--- NOTE | 2018-05-11 09:52 | OPERATIVE REPORT ---
DATE OF SERVICE: 05/11/2018 DIAGNOSIS: Right femoral neck fracture. PROCEDURE: Right hip bipolar replacement. SURGEON: Rikki Godoy MD. DEALER COMPLIANCE REPRESENTATIVE: Cristian Berger, who assisted throughout the procedure, helped with positioning, retraction and closed the wound. ANESTHESIA: General endotracheal by Leora Carr CRNA. ESTIMATED BLOOD LOSS: 200 mL. DRAINS: None. COMPLICATIONS: None. MATERIALS: Synthes pressfit size 4 stem with a 48 head and standard neck. POSTOPERATIVE PLAN: Routine hip protocol with weightbearing as tolerated. The patient was transferred to recovery room awake and stable condition. STATEMENT OF MEDICAL NECESSITY: The patient is an 82-year-old female with multiple medical problems, who fell at home and was found to have a minimally displaced right femoral neck fracture. The patient and her family were counseled regarding treatment options and elected to proceed with right hip bipolar replacement. She understood that she was at high risk due to her comorbidities. In order to maintain her ambulatory status, the patient and her family elected to proceed with surgical intervention. DESCRIPTION OF PROCEDURE: After risks and benefits of the procedure were discussed and questions were answered and informed consent was signed and placed on chart, the operative site was confirmed in the preoperative area initialed by the surgeon. The patient was then transferred to the operating room. After adequate levels of general endotracheal anesthetic were obtained, the patient was carefully placed in the left lateral decubitus position being careful to place an axillary roll and pad all bony prominences. The right hip and lower extremity were prepped and draped in the usual sterile fashion. Standard anterolateral approach was utilized. Hemostasis was obtained with cautery. The iliotibial band was incised in line with the incision. The abductor musculature was released from its insertion site leaving a cuff for later reattachment. A hip capsulotomy was performed exposing the femoral neck and head. There was slight displacement and impaction of the fracture noted. No abnormalities were noted. The hip was reduced and the cutting guide was placed and the cut was made. The acetabulum was irrigated. There were minimal degenerative changes noted. No loose bodies were noted. The femur was then prepared with the box chisel followed by the T-handle reamer and sequential broaches until size 4, at which point there was excellent proximal fill. This was then trialled with a 48 mm head and standard neck. The hip was reduced. The hip was found to be stable in all planes with no impingement noted and no instability noted. The hip was then redislocated. The trials were removed. The joint was further irrigated with pulse lavage and inspected for loose bodies. The prosthesis was then placed in approximately 15 degrees of anteversion with excellent fill obtained. The head, neck and lateral construct was then placed. The acetabulum was then inspected again with no loose bodies. The hip was reduced and the hip was taken through range of motion with no impingement noted and no instability noted in any plane. The joint was further irrigated with pulse lavage. The abductor tendon was reapproximated with a #5 Tevdek in [id number] interrupted fashion. The wound was then further irrigated with pulse lavage using a total of 3 liters throughout the procedure. The iliotibial band was then closed in a running fashion, 0 Vicryl was used for the deep subcutaneous tissue, 2-0 Vicryl for the superficial subcutaneous tissue and thien used on the skin. The incision was infiltrated with plain Marcaine. A soft dressing was applied and the patient was transported to the recovery room awake and in stable condition. Job ID: [id number] DocumentID: [id number] Dictated Date: 05/11/2018 09:12:50 Mortgage Loan Specialist Date: 05/11/2018 09:51:20 Dictated By: RIKKI GODOY MD
[2018-05-11] MEDS ORDERED: FUROSEMIDE 40 MG/4 ML INJ (LASIX) IVP ONE (10:00)
--- NOTE | 2018-05-11 10:26 | Cardiology Progress Note ---
Subjective Date Seen by Provider: May 11, 2018 Time Seen by Provider: 10:23 Subjective/Events-last exam Patient was seen and recovering from the surgery. Arousable, no new complaint. Denied any chest pain Review of Systems General: No Chills, No Night Sweats, No Fatigue, No Malaise, No Appetite, No Other HEENT: No Head Aches, No Visual Changes, No Eye Pain, No Ear Pain, No Dysphasia , No Sinus Congestion, No Post Nasal Drip, No Sore Throat, No Other Pulmonary: No Dyspnea, No Cough, No Pleuritic Chest Pain, No Other Cardiovascular: No: Chest Pain, Palpitations, Orthopnea, Paroxysmal Noc. Dyspnea, Edema, Lt Headedness, Other Objective-Cardiology Exam Last Set of Vital Signs Vital Signs 05/11/18 07:15 Temp 100.3 Pulse 81 Resp 20 B/P (MAP) 113/53 Pulse Ox 93 O2 Delivery Nasal Cannula O2 Flow Rate 3.00 Capillary Refill : Less Than 3 SecondsLess Than 3 Seconds I&O Intake and Output 05/11/18 00:00 Intake Total 1120 ml Output Total 1000 ml Balance 120 ml Intake Oral 1120 ml Output Urine Total 1000 ml Daily Weight Change Unsure General: Cooperative, Other (arousable, responding to verbal stimuli, recovering from surgery) HEENT: Atraumatic, PERRLA Neck: Supple, No JVD, No Thyromegaly Lungs: Normal Air Movement, Other (bilateral rhonchi) Heart: No Murmurs, Other (S3 is present, systolic murmur at the left sternal border) Abdomen: Normal Bowel Sounds, Soft, No Tenderness, No Hepatosplenomegaly, No Masses Extremities: No Clubbing, No Cyanosis, No Edema, Normal Pulses, No Tenderness/ Swelling Skin: No Rashes, No Significant Lesion, Other Neuro: Normal Tone, Other (still recovering from the surgery) Psych/Mental Status: Other (sedated and recovering from surgery) Results Lab Laboratory Tests 05/10/18 12:36 05/11/18 04:54 A/P-Cardiology Admission Diagnosis Right hip fracture Mitral valve stenosis Aortic valve stenosis Congestive heart failure, chronic compensated left ventricular systolic dysfunction, nonischemic cardiomyopathy Assessment/Plan Right hip fracture, status post surgical repair done on May 11, 2018, recovering slowly. Continue to monitor Mild shortness of breath, I will give one dose of IV Lasix and monitor. Low-grade fever, given Tylenol, monitor temperature closely. Workup per primary care team History of mild coronary artery disease, nonobstructive disease by cardiac catheterization in September 2014, stress test in December 2016 showing no ischemia, continue to monitor closely Congestive heart failure, chronic left ventricular systolic dysfunction, nonischemic cardiomyopathy, secondary to valvular heart disease. 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 Severe mitral valve stenosis, rheumatic valve, history of severe mitral regurgitation and pulmonary hypertension with estimated PA pressure of 55 mmHg, severely dilated left atrium. She was seen Dr. Page at in the past and she was considered high risk for valve surgery. She is not a candidate for mitral clip surgery due to her severe mitral stenosis, patient was referred for TMVR with Dr. Davila at , she decided to continue with conservative management and will consider the procedure if she become more symptomatic. 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 Last echocardiogram was done in April 2018 and the valve was functioning normally Peripheral vascular disease, patient has venous insufficiency on the right side that required ablation,peripheral angiogram May 2017, intervention to the anterior tibial artery, the wound has healed then developed a new ulcer after a trauma. Did balloon angioplasty to the right anterior tibial artery proximal portion has significant improvement the distal portion is occluded and did not improve, the posterior tibial artery and peroneal arteries were occluded with no collaterals in that area. The right SFA has multiple segment of moderate to severe stenosis, balloon angioplasty to the mid SFA with good results. Abdominal aorta has moderate disease, the left SFA has mild to moderate disease down to the trifurcation. We'll continue with medical therapy, the ulcer on her foot is completely healed. Continue to monitor Carotid stenosis, continue to monitor, followed by heart and vascular care. 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 followed and monitored by heart and vascular care. Hypertension, restart home medications and monitor Hyperlipidemia, continue on current medication monitor lipids Clinical Quality Measures DVT/VTE Risk/Contraindication: Risk Factor Score Per Nursin RFS Level Per Nursing on Admit: 4+=Very High PRANEETH SHUKLA MD May 11, 2018 10:26
--- NOTE | 2018-05-11 10:36 | Diagnostic Imaging Report ---
INDICATION: Right hip arthroplasty COMPARISON: 05/10/18 FINDINGS: Two views of the right hip demonstrate a well-seated arthroplasty without fracture or dislocation. There is no unexpected postoperative foreign body. IMPRESSION: Well-seated right hip arthroplasty Dictated by: Dictated on workstation # [id number]
--- NOTE | 2018-05-11 12:12 | Physical Therapy Evaluation ---
PT Evaluation-General Medical Diagnosis Admission Date May 10, 2018 at 13:52 Medical Diagnosis: right hip fracture Onset Date: May 10, 2018 Therapy Diagnosis Therapy Diagnosis: generalized weakness/debility Height/Weight Height (Feet): 5 Height (Inches): 6.00 Weight (Pounds): 140 Weight (Ounces): 4.0 Precautions Precautions/Isolations: Contact Isolation, Fall Prevention hip precautions Weight Bear Status Right Lower Extremity: Right Weight Bearing/Tolerated Left Lower Extremity: Left Full Weight Bearing Referral Physician: hardeep Reason for Referral: Evaluation/Treatment Medical History Pertinent Medical History: Atrial Fib, Arthritis, CAD, Heart Failure, HTN, Hypothroidism, OA, Renal Insufficiency Current History EMS secondary to tripped and fell at home resulting in right hip fracture Reviewed History: Yes Social History Home: Single Level Current Living Status: Alone Entry Into Home: Stairs With Railing PT Steps Into Home: 5 Prior/Core FIM Prior Level of Function Functional [place] Measure 0=Not Assessed/NA 4=Minimal Assistance 1=Total Assistance 5=Supervision or Setup 2=Maximal Assistance 6=Modified [place] 3=Moderate Assistance 7=Complete [place] Bed Mobility: 7 Transfers (B,C,W/C) (FIM): 7 Gait: 7 PT Evaluation-Current Subjective Patient and family agree to PT. Pain Numeric Pain Scale: 10-Worst Possible Pain Location: Right Location Body Site: Hip Pain Description: Acute Objective Patient Orientation: Normal For Age Problem Solving: Fair Attachments: Oxygen, Gomes Catheter, IV ROM/Strength ROM Lower Extremities right hip precautions/left LE WFL Strength Lower Extremities left LE 3+/5 grossly/right LE 3-/5 grossly Integumentary/Posture Integumentary refer to nursing notes Bowel Incontinence: No Bladder Incontinence: Gomes Cath Posture WFL Neuromuscular (Tone, Coordination, Reflexes) grossly intact Sensory Vision: Functional Hearing: Functional Sensation Right Lower Extremit: Intact Sensation Left Lower Extremity: Intact Transfers Functional [place] Measure 0=Not Assessed/NA 4=Minimal Assistance 1=Total Assistance 5=Supervision or Setup 2=Maximal Assistance 6=Modified [place] 3=Moderate Assistance 7=Complete [place] Transfers (B, C, W/C) (FIM): 2 Scootin Rollin Supine to/from Sit: 2 Sit to/from Stand: 2 Patient had surgery on this date, requiring maximum assistance with all Gait Mode of Locomotion: Walk Anticipated Mode of Locomotion: Walk Balance Sitting Static: Fair Sitting Dynamic: Fair Standing Static: Fair Standing Dynamic: Fair Assessment/Needs 82 y.o. female, will benefit from skilled PT to address functional strength and mobility to improve current LOF. From a PT standpoint, patient would benefit from ARU to ensure safe return to home at maximum LOF. Rehab Potential: Good PT Software Quality Assurance Engineer Goals Half-Way Goals PT Half-Way Goals Time Frame: May 25, 2018 Transfers (B,C,W/C) (FIM): 5 Gait (FIM): 5 Gait distance (FIM): 3=150 ft Distance: 200' Gait Level of Assist: 5 Gait Assistive Device: FWW Stairs (FIM): 5 # of Steps: 8 Stairs Level Of Assist: 5 PT Plan Problem List Problem List: Activity Tolerance, Functional Strength, Safety, Balance, Gait, Transfer, Bed Mobility Treatment/Plan Treatment Plan: Continue Plan of Care Treatment Plan: Bed Mobility, Education, Functional Activity Rick, Functional Strength, Gait, Safety, Therapeutic Exercise, Transfers Treatment Duration: May 25, 2018 Frequency: 11 times per week Estimated Hrs Per Day: 1 hour per day Patient and/or Family Agrees t: Yes Discharge Recommendations Therapy D/C Recommendations: Acute Rehab Time/GCodes Time In: 1140 Time Out: 1200 Total Billed Treatment Time: 20 [facility]HERFORD PT May 11, 2018 12:12
[2018-05-11] MEDS: ISOSORBIDE MONONITRATE 30 MG (IMDUR) TAB PO SCH (14:04)
[2018-05-11] MEDS: PANTOPRAZOLE 40 MG (PROTONIX) TAB PO SCH (14:04)
[2018-05-11] MEDS: meTOproloL SUCCINATE 50 MG (TOPROL XL) TAB PO SCH (14:05)
[2018-05-11] MEDS: LORATADINE (CLARITIN) 10 MG TAB PO SCH (14:05)
[2018-05-11] MEDS: LEVOTHYROXINE 100 MCG (LEVOTHROID) TAB PO SCH (14:05)
[2018-05-11] MEDS: DIGOXIN 0.125 MG (LANOXIN) TAB PO SCH (14:05)
[2018-05-11] MEDS: warFARin 1 MG (COUMADIN) TAB PO SCH (16:15)
[2018-05-11] MEDS: ceFAZolin INJECTION 1,000 MG in NS (IVPB) 50 ML IV SCH ×2 (16:16→23:52)
[2018-05-11] MEDS: rOPINIRole 0.25 MG (REQUIP) TAB PO PRN (21:18)
[2018-05-11] MEDS: HYDROcodone/APAP 5 MG/325 MG (LORTAB) TAB PO PRN (21:19)
[2018-05-12] VITALS: BP 114/57
[2018-05-12] MEDS: fentaNYL INJECTION 100 MCG/2 ML AMP IVP PRN ×4 (00:38→19:04)
[2018-05-12 04:00] VITALS: BP 115/57
[2018-05-12 05:36] LABS: HEMOGLOBIN 8.4 G/DL (11.5-16.0)
[2018-05-12 05:48] LABS: INR 2.8 (0.8-1.4); PROTHROMBIN TIME PATIENT 29.6 SEC (12.2-14.7)
[2018-05-12] MEDS: PANTOPRAZOLE 40 MG (PROTONIX) TAB PO SCH (06:22)
[2018-05-12] MEDS: HYDROcodone/APAP 5 MG/325 MG (LORTAB) TAB PO PRN ×4 (06:22→22:19)
[2018-05-12] MEDS: MULTIVIT W/MINERALS TAB (THERAGRAN M) PO SCH (06:23)
[2018-05-12] MEDS: LEVOTHYROXINE 100 MCG (LEVOTHROID) TAB PO SCH (06:23)
[2018-05-12 08:00] VITALS: BP 94/48
--- NOTE | 2018-05-12 08:01 | Cardiology Progress Note ---
Subjective Date Seen by Provider: May 12, 2018 Time Seen by Provider: 07:58 Subjective/Events-last exam Patient is laying down in bed, recovering well, feeling better. Denied any chest pain, had mild chest pain last night left sided not radiating. Having bruises all over her body from the fall Review of Systems General: No Chills, No Night Sweats, No Fatigue, No Malaise, No Appetite, No Other HEENT: No Head Aches, No Visual Changes, No Eye Pain, No Ear Pain, No Dysphasia , No Sinus Congestion, No Post Nasal Drip, No Sore Throat, No Other Pulmonary: No Dyspnea, No Cough, No Pleuritic Chest Pain, No Other Cardiovascular: No: Chest Pain, Palpitations, Orthopnea, Paroxysmal Noc. Dyspnea, Edema, Lt Headedness, Other Objective-Cardiology Exam Last Set of Vital Signs Vital Signs 05/12/18 05/12/18 04:00 07:00 Temp 98.5 Pulse 85 Resp 18 B/P (MAP) 115/57 (76) Pulse Ox 90 O2 Delivery Nasal Cannula O2 Flow Rate 4.00 Capillary Refill : Less Than 3 SecondsLess Than 3 Seconds I&O Intake and Output 05/12/18 00:00 Intake Total 640 ml Output Total 1550 ml Balance -910 ml Intake Oral 560 ml IV Total 50 ml Other 30 ml Output Urine Total 1350 ml Estimated Blood Loss 200 ml General: Alert, Oriented X3, Cooperative HEENT: Atraumatic, PERRLA Neck: Supple, No JVD, No Thyromegaly Lungs: Normal Air Movement, Other (bilateral rhonchi) Heart: Normal S1, Normal S2, No Murmurs, Other (S3 is present, systolic murmur at the left sternal border) Abdomen: Normal Bowel Sounds, Soft, No Tenderness, No Hepatosplenomegaly, No Masses Extremities: No Clubbing, No Cyanosis, No Edema, Normal Pulses, No Tenderness/ Swelling Skin: No Rashes, No Significant Lesion, Other Neuro: Normal Speech, Normal Tone, Sensation Intact Psych/Mental Status: Mental Status NL, Mood NL Results Lab Laboratory Tests 05/12/18 05:14 A/P-Cardiology Admission Diagnosis Right hip fracture Mitral valve stenosis Aortic valve stenosis Congestive heart failure, chronic compensated left ventricular systolic dysfunction, nonischemic cardiomyopathy Assessment/Plan Right hip fracture, status post surgical repair done on May 11, 2018, recovering slowly, doing well. Continue to monitor Chest pain nonspecific etiology, had an episode yesterday, currently no active chest pain. Continue to monitor History of mild coronary artery disease, nonobstructive disease by cardiac catheterization in September 2014, stress test in December 2016 showing no ischemia, continue to monitor closely Congestive heart failure, chronic left ventricular systolic dysfunction, nonischemic cardiomyopathy, secondary to valvular heart disease. 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 Severe mitral valve stenosis, rheumatic valve, history of severe mitral regurgitation and pulmonary hypertension with estimated PA pressure of 55 mmHg, severely dilated left atrium. She was seen Dr. Page at in the past and she was considered high risk for valve surgery. She is not a candidate for mitral clip surgery due to her severe mitral stenosis, patient was referred for TMVR with Dr. Davila at , she decided to continue with conservative management and will consider the procedure if she become more symptomatic. 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 Last echocardiogram was done in April 2018 and the valve was functioning normally Peripheral vascular disease, patient has venous insufficiency on the right side that required ablation,peripheral angiogram May 2017, intervention to the anterior tibial artery, the wound has healed then developed a new ulcer after a trauma. Did balloon angioplasty to the right anterior tibial artery proximal portion has significant improvement the distal portion is occluded and did not improve, the posterior tibial artery and peroneal arteries were occluded with no collaterals in that area. The right SFA has multiple segment of moderate to severe stenosis, balloon angioplasty to the mid SFA with good results. Abdominal aorta has moderate disease, the left SFA has mild to moderate disease down to the trifurcation. We'll continue with medical therapy, the ulcer on her foot is completely healed. Continue to monitor Carotid stenosis, continue to monitor, followed by heart and vascular care. 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 followed and monitored by heart and vascular care. Hypertension, restart home medications and monitor Hyperlipidemia, continue on current medication monitor lipids Clinical Quality Measures DVT/VTE Risk/Contraindication: Risk Factor Score Per Nursin RFS Level Per Nursing on Admit: 4+=Very High PRANEETH SHUKLA MD May 12, 2018 08:01
--- NOTE | 2018-05-12 09:10 | Progress Note-Hospitalist ---
Subjective HPI/CC On Admission Date Seen by Provider: May 12, 2018 Time Seen by Provider: 09:03 Pt is [id number] with a PMH of aortic valve replacement, severe mitral valve stenosis, mild CAD, HTN, CHF, PVD, AAA who presented to the ER for hip pain after a fall. 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 She was letting her dog out to go to the bathroom when she trip and fell hurting her hip. She was down for about 5 minutes before she was able to crawl in and call someone for help. She was found to have a right hip fracture. She states her pain is well controlled at this time without pain medication. She has no other complaints. Subjective/Events-last exam Pt reports doing well. Having some soreness at her hip but worried about taking too much pain medicine. Daughter at bedside and states she has been doing well. Objective Exam Vital Signs Vital Signs Date Time Temp Pulse Resp B/P (MAP) Pulse Ox O2 Delivery O2 Flow Rate FiO2 05/12/18 07:00 85 05/12/18 04:00 98.5 18 115/57 (76) 90 Nasal Cannula 4.00 Capillary Refill : Less Than 3 SecondsLess Than 3 Seconds General Appearance: No Apparent Distress, WD/WN Respiratory: Lungs Clear, No Respiratory Distress Cardiovascular: Regular Rate, Rhythm, No Murmur Gastrointestinal: Normal Bowel Sounds, Soft Neurologic/Psychiatric: Alert, Oriented x3 Results/Procedures Lab Laboratory Tests 05/12/18 05:14 Patient resulted labs reviewed. Imaging: Reviewed Imaging Films, Reviewed Imaging Report Assessment/Plan Assessment and Plan Assess & Plan/Chief Complaint hip fracture Diagnosis/Problems Diagnosis/Problems (1) Closed right hip fracture Status: Acute Assessment & Plan: Ortho consulted, appreciate recs Fentanyl for pain POD #1 PT/OT Will consult IRU Qualifiers: Encounter type: initial encounter Qualified Codes: S72.001A - Fracture of unspecified part of neck of right femur, initial encounter for closed fracture (2) Aortic valve replaced Status: Chronic Assessment & Plan: s/p Aortic valve replacement INR 2.8 (3) CHF (congestive heart failure) Onset Date: 05/20/2014 Status: Chronic Assessment & Plan: No signs of exacerbation Cardiology consulted, appreciate recs Qualifiers: Heart failure type: systolic Heart failure chronicity: chronic Qualified Codes: I50.22 - Chronic systolic (congestive) heart failure (4) PVD (peripheral vascular disease) Assessment & Plan: Cardiology consulted, appreciate recs (5) HTN (hypertension) Status: Chronic Assessment & Plan: Well controlled, trend Qualifiers: Hypertension type: essential hypertension Qualified Codes: I10 - Essential (primary) hypertension (6) Chronic anemia Status: Acute Assessment & Plan: Hgb down to 8.5 today Trend Transfuse for hemoglobin less than 8 due to cardiac risk factors (7) Prophylactic measure Assessment & Plan: INR 2.8 HH diet Saline lock Clinical Quality Measures DVT/VTE Risk/Contraindication: Risk Factor Score Per Nursin RFS Level Per Nursing on Admit: 4+=Very High VENANCIO ARREAGA MD May 12, 2018 9:10 am
[2018-05-12] MEDS: SENNOSIDES 8.6 MG (SENOKOT) TAB PO SCH ×2 (09:16→22:19)
[2018-05-12] MEDS: LORATADINE (CLARITIN) 10 MG TAB PO SCH (09:16)
[2018-05-12] MEDS: ISOSORBIDE MONONITRATE 30 MG (IMDUR) TAB PO SCH (09:16)
[2018-05-12] MEDS: meTOproloL SUCCINATE 50 MG (TOPROL XL) TAB PO SCH (09:16)
[2018-05-12] MEDS: warFARin 1 MG (COUMADIN) TAB PO SCH (09:17)
[2018-05-12] MEDS: DIGOXIN 0.125 MG (LANOXIN) TAB PO SCH (09:17)
[2018-05-12] MEDS: MEXILETINE 150 MG (MEXITIL) CAPSULE PO SCH ×2 (09:17→22:20)
--- NOTE | 2018-05-12 10:24 | Physical Therapy Daily Note ---
PT Daily Note-Current Subjective Patient agrees to PT. She c/o 8/10 right hip pain with meds issued. Pain Numeric Pain Scale: 8 Location: Right Location Body Site: Hip Pain Description: Acute Mental Status Patient Orientation: Normal For Age Transfers Functional [place] Measure 0=Not Assessed/NA 4=Minimal Assistance 1=Total Assistance 5=Supervision or Setup 2=Maximal Assistance 6=Modified [place] 3=Moderate Assistance 7=Complete IndependenceIRFPAI Quality Coding Scale 6 Independent with activity with or without an assistive device 5 Patient requires set up or clean up by helper. Patient completes activity by themselves 4 Supervision or touching assist (CGA). [place] provide cues , steadying assist 3 The helper provides less than half the effort to complete the activity 2 The helper provides more than half the effort to complete the activity 1 Dependent. The helper does all the effort to complete an activity 7 Patient refused to complete or attempt activity 9 The patient did not perform the activity before the current illness or injury 88 Not attempted due to Medical conditions or safety concerns Transfers (B, C, W/C) (FIM): 3 Scootin Supine to/from Sit: 3 Sit to/from Stand: 4 Bed to/from Chair: 4 Weight Bearing Right Lower Extremity: Right Weight Bearing/Tolerated Left Lower Extremity: Left Full Weight Bearing Gait Training Gait (FIM): 1 Distance (FIM): 1=up to 49 ft Distance: 15' x 2 Gait Level of Assist: 4 Gait Persons Needed: 1 Gait Assistive Device: FWW slow, antalgic Exercises Supine Ex: Ankle pumps, Quad Set, Heel Slides Supine Reps: 10 Seated Therapy Exercises: Long arc quads Seated Reps: 15 Assessment Patient progressing with treatment plan. From a PT standpoint, patient would benefit from ARU to ensure safe return to home at maximum LOF. PT [facility] Goals Bundle Helper Goals PT Bundle Helper Goals Time Frame: May 25, 2018 Transfers (B,C,W/C) (FIM): 5 Gait (FIM): 5 Gait distance (FIM): 3=150 ft Distance: 200' Gait Level of Assist: 5 Gait Assistive Device: FWW Stairs (FIM): 5 # of Steps: 8 Stairs Level Of Assist: 5 PT Plan Treatment/Plan Treatment Plan: Continue Plan of Care Treatment Plan: Bed Mobility, Education, Functional Activity Rick, Functional Strength, Gait, Safety, Therapeutic Exercise, Transfers Treatment Duration: May 25, 2018 Frequency: 11 times per week Estimated Hrs Per Day: 1 hour per day Patient and/or Family Agrees t: Yes Time/GCodes Time In: 912 Time Out: 935 Total Billed Treatment Time: 23 Total Billed Treatment 1 visit EX 9 min GT 14 min KATHERINE RUTHERFORD PT May 12, 2018 10:24
--- NOTE | 2018-05-12 10:24 | Progress Note-Standard ---
Standard Progress Note Progress Notes/Assess & Plan Date Seen by Provider: May 12, 2018 Time Seen by Provider: 10:22 Progress/Assessment & Plan consult dictated spoke with family and patient at length plan for right hip bipolar replacement in AM Final Diagnosis No complaints denies paresthesias Vital Signs Date Time Temp Pulse Resp B/P (MAP) Pulse Ox O2 Delivery O2 Flow Rate FiO2 05/12/18 08:00 100.8 85 18 94/48 (63) 94 Nasal Cannula 5.00 05/12/18 07:00 85 05/12/18 04:00 98.5 85 18 115/57 (76) 90 Nasal Cannula 4.00 05/12/18 01:00 85 05/12/18 00:00 100.3 85 24 114/57 (76) 94 Nasal Cannula 4.00 05/11/18 20:05 Room Air 05/11/18 19:30 99.9 83 18 116/58 (77) 95 Nasal Cannula 4.50 05/11/18 19:00 90 05/11/18 18:05 101.7 05/11/18 17:25 102.3 05/11/18 17:05 102.5 05/11/18 15:35 101.6 85 18 114/56 (75) 92 Nasal Cannula 4.00 05/11/18 14:55 Nasal Cannula 3.00 05/11/18 14:35 99.9 05/11/18 13:05 90 05/11/18 12:00 99.9 80 22 110/56 (74) 93 Nasal Cannula 4.00 05/11/18 10:55 90 Nasal Cannula 4.00 05/11/18 10:50 99.0 85 22 118/58 (78) 90 Nasal Cannula 4.00 I & O 05/12/18 06:59 Intake Total 915 ml Output Total 1550 ml Balance -635 ml Laboratory Tests Test 05/12/18 05:14 Range/Units Hemoglobin 8.4 L 11.5-16.0 G/DL Hematocrit 27 L 35-52 % Prothrombin Time 29.6 H 12.2-14.7 SEC INR Comment 2.8 H 0.8-1.4 sitting at bedside ambulated earlier dressing clean and dry. Intact DF and PF of toes and ankle with intact sensation throughout. pulses equal radiographs--HW well positioned without fracture s/p R hip bipolar mobilize as able may consider IRF ZAFUTA,ARCENIO P MD May 12, 2018 10:24
[2018-05-12 12:00] VITALS: BP 107/55
--- NOTE | 2018-05-12 12:13 | Anesthesia-General Post-Op ---
General Patient Condition Mental Status/LOC: Same as Preop Cardiovascular: Satisfactory Nausea/Vomiting: Absent Respiratory: Satisfactory Pain: Controlled Complications: Absent Post Op Complications Complications None Follow Up Care/Instructions Patient Instructions None needed. Anesthesia/Patient Condition Patient Condition Patient is doing well, no complaints, stable vital signs, no apparent adverse anesthesia problems. No complications reported per nursing. GUANAKITO JAQUEZ CRNA May 12, 2018 12:13
[2018-05-12 16:40] VITALS: BP 105/53
[2018-05-12 20:30] VITALS: BP 96/46
[2018-05-12] MEDS: rOPINIRole 0.25 MG (REQUIP) TAB PO PRN (22:20)
[2018-05-12] MEDS: MELATONIN 3 MG TABLET PO PRN (22:20)
[2018-05-13] VITALS (11 sets, daily range): BP systolic 93–115; BP diastolic 50–70
[2018-05-13 06:59] LABS: HEMOGLOBIN 7.4 G/DL (11.5-16.0)
[2018-05-13 07:10] LABS: INR 3.1 (0.8-1.4); PROTHROMBIN TIME PATIENT 31.9 SEC (12.2-14.7)
[2018-05-13] MEDS: HYDROcodone/APAP 5 MG/325 MG (LORTAB) TAB PO PRN ×3 (07:28→20:46)
[2018-05-13] MEDS: LEVOTHYROXINE 100 MCG (LEVOTHROID) TAB PO SCH (07:42)
[2018-05-13] MEDS: PANTOPRAZOLE 40 MG (PROTONIX) TAB PO SCH (07:42)
[2018-05-13] MEDS: MULTIVIT W/MINERALS TAB (THERAGRAN M) PO SCH (07:42)
--- NOTE | 2018-05-13 07:58 | Progress Note-Standard ---
Standard Progress Note Progress Notes/Assess & Plan Date Seen by Provider: May 13, 2018 Time Seen by Provider: 07:56 Progress/Assessment & Plan consult dictated spoke with family and patient at length plan for right hip bipolar replacement in AM Final Diagnosis NO complaints Vital Signs Date Time Temp Pulse Resp B/P (MAP) Pulse Ox O2 Delivery O2 Flow Rate FiO2 05/13/18 07:11 5.00 05/13/18 07:00 85 05/13/18 01:00 83 05/13/18 00:10 99.3 85 16 109/55 (73) 92 Nasal Cannula 5.00 05/12/18 22:00 101.4 05/12/18 20:30 101.0 80 20 96/46 (63) 95 Nasal Cannula 6.00 05/12/18 20:15 Nasal Cannula 6.00 05/12/18 19:04 101.3 05/12/18 19:00 87 05/12/18 18:10 101.3 05/12/18 17:35 101.3 05/12/18 16:40 101.3 85 20 105/53 (70) 96 Nasal Cannula 6.00 05/12/18 13:50 100.1 05/12/18 13:08 100.1 05/12/18 13:00 85 05/12/18 12:00 100.1 87 18 107/55 (72) 93 Nasal Cannula 6.00 05/12/18 10:59 100.8 05/12/18 08:00 100.8 85 18 94/48 (63) 94 Nasal Cannula 5.00 05/12/18 08:00 Room Air I & O 05/13/18 07:00 Intake Total 980 ml Output Total 1050 ml Balance -70 ml Laboratory Tests Test 05/13/18 06:40 Range/Units Hemoglobin 7.4 L 11.5-16.0 G/DL Hematocrit 24 L 35-52 % Prothrombin Time 31.9 H 12.2-14.7 SEC INR Comment 3.1 H 0.8-1.4 R hip incision clean and dry. No calf tenderness. Neg Jennifer's s/p R hip bipolar hip precautions. WBAT IRF tomorrow ARCENIO Zavala MD May 13, 2018 07:58
[2018-05-13] MEDS: meTOproloL SUCCINATE 50 MG (TOPROL XL) TAB PO SCH (08:45)
[2018-05-13] MEDS: MEXILETINE 150 MG (MEXITIL) CAPSULE PO SCH ×2 (08:45→20:40)
[2018-05-13] MEDS: LORATADINE (CLARITIN) 10 MG TAB PO SCH (08:45)
[2018-05-13] MEDS: SENNOSIDES 8.6 MG (SENOKOT) TAB PO SCH ×2 (08:45→20:40)
[2018-05-13] MEDS: ISOSORBIDE MONONITRATE 30 MG (IMDUR) TAB PO SCH (08:45)
[2018-05-13] MEDS: DIGOXIN 0.125 MG (LANOXIN) TAB PO SCH (08:45)
[2018-05-13] MEDS: rOPINIRole 0.25 MG (REQUIP) TAB PO PRN ×2 (08:46→20:46)
--- NOTE | 2018-05-13 09:11 | Cardiology Progress Note ---
Subjective Date Seen by Provider: May 13, 2018 Time Seen by Provider: 09:10 Subjective/Events-last exam Patient is laying down in bed, feeling better, eating breakfast. Reporting improvement in her strength Review of Systems General: No Chills, No Night Sweats, No Fatigue, No Malaise, No Appetite, No Other HEENT: No Head Aches, No Visual Changes, No Eye Pain, No Ear Pain, No Dysphasia , No Sinus Congestion, No Post Nasal Drip, No Sore Throat, No Other Pulmonary: No Dyspnea, No Cough, No Pleuritic Chest Pain, No Other Cardiovascular: No: Chest Pain, Palpitations, Orthopnea, Paroxysmal Noc. Dyspnea, Edema, Lt Headedness, Other Objective-Cardiology Exam Last Set of Vital Signs Vital Signs 05/13/18 05/13/18 05/13/18 04:01 07:00 07:11 Temp 98.8 Pulse 85 Resp 17 B/P (MAP) 108/57 (74) Pulse Ox 94 O2 Delivery Nasal Cannula O2 Flow Rate 5.00 Capillary Refill : Less Than 3 SecondsLess Than 3 Seconds I&O Intake and Output 05/13/18 00:00 Intake Total 1255 ml Output Total 1400 ml Balance -145 ml Intake Oral 1255 ml Output Urine Total 1400 ml General: Alert, Oriented X3, Cooperative HEENT: Atraumatic, PERRLA Neck: Supple, No JVD, No Thyromegaly Lungs: Normal Air Movement, Other (bilateral rhonchi) Heart: Normal S1, Normal S2, No Murmurs, Other (S3 is present, systolic murmur at the left sternal border) Abdomen: Normal Bowel Sounds, Soft, No Tenderness, No Hepatosplenomegaly, No Masses Extremities: No Clubbing, No Cyanosis, No Edema, Normal Pulses, No Tenderness/ Swelling Skin: No Rashes, No Significant Lesion, Other Neuro: Normal Speech, Normal Tone, Sensation Intact Psych/Mental Status: Mental Status NL, Mood NL Results Lab Laboratory Tests 05/13/18 06:40 A/P-Cardiology Admission Diagnosis Right hip fracture Mitral valve stenosis Aortic valve stenosis Congestive heart failure, chronic compensated left ventricular systolic dysfunction, nonischemic cardiomyopathy Assessment/Plan Right hip fracture, status post surgical repair done on May 11, 2018, recovering slowly, doing well. Continue to monitor Chest pain nonspecific etiology, no further episodes were reported. Continue to monitor Anemia, worsening postoperatively. Monitor H&H and transfuse as needed History of mild coronary artery disease, nonobstructive disease by cardiac catheterization in September 2014, stress test in December 2016 showing no ischemia, continue to monitor closely Congestive heart failure, chronic left ventricular systolic dysfunction, nonischemic cardiomyopathy, secondary to valvular heart disease. Has history of ICD implanted [employer]-D done in August 2012. Severe mitral valve stenosis, rheumatic valve, history of severe mitral regurgitation and pulmonary hypertension with estimated PA pressure of 55 mmHg, severely dilated left atrium. She was seen Dr. Page at in the past and she was considered high risk for valve surgery. She is not a candidate for mitral clip surgery due to her severe mitral stenosis, patient was referred for TMVR with Dr. Davila at , she decided to continue with conservative management and will consider the procedure if she become more symptomatic. 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 Last echocardiogram was done in April 2018 and the valve was functioning normally Peripheral vascular disease, patient has venous insufficiency on the right side that required ablation,peripheral angiogram May 2017, intervention to the anterior tibial artery, the wound has healed then developed a new ulcer after a trauma. Did balloon angioplasty to the right anterior tibial artery proximal portion has significant improvement the distal portion is occluded and did not improve, the posterior tibial artery and peroneal arteries were occluded with no collaterals in that area. The right SFA has multiple segment of moderate to severe stenosis, balloon angioplasty to the mid SFA with good results. Abdominal aorta has moderate disease, the left SFA has mild to moderate disease down to the trifurcation. We'll continue with medical therapy, the ulcer on her foot is completely healed. Continue to monitor Carotid stenosis, continue to monitor, followed by heart and vascular care. 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 followed and monitored by heart and vascular care. Hypertension, restart home medications and monitor Hyperlipidemia, continue on current medication monitor lipids Clinical Quality Measures DVT/VTE Risk/Contraindication: Risk Factor Score Per Nursin RFS Level Per Nursing on Admit: 4+=Very High PRANEETH SHUKLA MD May 13, 2018 09:11
[2018-05-13] MEDS ORDERED: warFARin 2 MG (COUMADIN) TAB PO SCH (10:00)
[2018-05-13] MEDS: fentaNYL INJECTION 100 MCG/2 ML AMP IVP PRN ×2 (10:21→22:07)
--- NOTE | 2018-05-13 11:27 | Occupational Therapy Eval ---
OT Evaluation-General/PLF Medical Diagnosis Admission Date May 10, 2018 at 13:52 Medical Diagnosis: right hip fracture Onset Date: May 10, 2018 Therapy Diagnosis Therapy Diagnosis: Weakness Height/Weight Height (Feet): 5 Height (Inches): 6.00 Weight (Pounds): 140 Weight (Ounces): 4.0 Precautions Precautions/Isolations: Contact Isolation, Fall Prevention Safety Interventions: None Weight Bear Status Weight Bearing Restriction: Weight Bearing/Tolerated Referral Physician: hardeep Referral Reason: Activity Tolerance, Self Care, Evaluation/Treatment, Strengthening/ROM Referral Comments Hip precautions Medical History Pertinent Medical History: Atrial Fib, Arthritis, CAD, Heart Failure, HTN, Hypothroidism, OA, PVD, Renal Insufficiency Additional Medical History Aortic valve replacement, severe mitral valve stenosis, AAA Current History Pt. fell while letting her dog out. Sustained a hip fx on right side. Had bipolar component. Hip precautions and WBAT. Reviewed History: Yes Social History Home: Single Level Current Living Status: Alone Entry Into Home: Stairs With Railing Steps Into Home: 3 ADL-Prior Level of Function ADL PLOF Comments Pt. was fully independent with daily tasks. DME/Equipment: Bath Chair, Tub/Shower DME/Equipment Comments Pt. has a walker but does not use it. 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 [address] Self: Yes OT Current Status Subjective Pt. waiting for pain pill. Reports 6/10 in right hip. Appearance Pt. in bed. Alert and oriented. Agrees to work with OT. Mental Status/Objective Patient Orientation: Person, Place, Time, Situation Attachments: Gomes Catheter, IV, Oxygen Current Glasses/Contacts: Yes Upper Extremity ROM WFL Upper Extremity Strength WFL ADL-Treatment Functional [place] Measure 0=Not Assessed/NA 4=Minimal Assistance 1=Total Assistance 5=Supervision or Setup 2=Maximal Assistance 6=Modified [place] 3=Moderate Assistance 7=Complete IndependenceIRFPAI Quality Coding Scale 6 Independent with activity with or without an assistive device 5 Patient requires set up or clean up by helper. Patient completes activity by themselves 4 Supervision or touching assist (CGA). [place] provide cues , steadying assist 3 The helper provides less than half the effort to complete the activity 2 The helper provides more than half the effort to complete the activity 1 Dependent. The helper does all the effort to complete an activity 7 Patient refused to complete or attempt activity 9 The patient did not perform the activity before the current illness or injury 88 Not attempted due to Medical conditions or safety concerns Bathing (FIM): 3 (OT washes pt's feet and lower legs while seated on side of bed. Pt. able to wash kourtney area in stance with CGA. Pt. able to wash upper body.) Lower Body Dressing (FIM): 1 (Pt. has hip precautions. OT doffed/donned socks and JAVIER hose.) Transfers (B, C, W/C) (FIM): 3 (Mod assist supine-sit. CGA sit-stand and transfer to chair.) Other Treatments Pt. is agreeable to spongebath on side of bed. Pt. has no street clothing here , so donned fresh gown and socks. Transferred to upright chair after spongebath. All needs met. Education OT Patient Education: Correct positioning, Modified ADL techniques, Progress toward Goal/Update tx plan, Purpose of tx/functional activities, Reviewed precautions, Rehab process, Transfer techniques, Use of adapted equipment Teaching Recipient: Patient Teaching Methods: Demonstration, Discussion Response to Teaching: Verbalize Understanding, Return Demonstration OT Short Term Goals Short Term Goals Time Frame: May 20, 2018 Eating(FIM): 5 Grooming(FIM): 5 Bathing(FIM): 4 Upper Body Dressing(FIM): 5 Lower Body Dressing(FIM): 5 Toileting(FIM): 5 Transfers (B,C,W/C) (FIM): 5 Toilet/Commode Transfer(FIM): 5 Shower Transfer(FIM): 5 Additional Short Term Goals: 1-Demonstrate ADL Tasks, 2-Verbalize Understanding , 3-ImproveStrength/Rick 1=Demonstrate adherence to instructed precautions during ADL tasks. 2=Patient will verbalize/demonstrate understanding of assistive devices/ modifications for ADL. 3=Patient will improve strength/tolerance for activity to enable patient to perform ADL's. OT Long-Term Goals Long-Term Goals Time Frame: May 27, 2018 Eating (FIM): 6 Grooming(FIM): 6 Bathing(FIM): 5 Upper Body Dressing(FIM): 6 Lower Body Dressing(FIM): 6 Toileting(FIM): 6 Transfers (B,C,W/C) (FIM): 6 Toilet/Commode Transfer(FIM): 6 Shower Transfer(FIM): 5 Additional Goals: 1-Demonstrate ADL Tasks, 2-Verbalize Understanding, 3- ImproveStrength/Rick 1=Demonstrate adherence to instructed precautions during ADL tasks. 2=Patient will verbalize/demonstrate understanding of assistive devices/ modifications for ADL. 3=Patient will improve strength/tolerance for activity to enable patient to perform ADL's. OT Education/Plan Problem List/Assessment Assessment: Decreased Activ Tolerance, Dependent Transfers, Impaired Bed Mobility, Impaired I ADL's, Impaired Self-Care Skills Discharge Recommendations Plan/Recommendations: Continue POC Therapy D/C Recommendations: Acute Rehab Equpiment Recommendations-D/C: Hip Kit Target Placement Pt. would benefit from stay on rehab unit. Treatment Plan/Plan of Care Treatment,Training & Education: Yes Patient would benefit from OT for education, treatment and training to promote independence in ADL's, mobility, safety and/or upper extremity function for ADL' s. Plan of Care: ADL Retraining, Caregiver Training, Functional Mobility, UE Funct Exercise/Act Treatment Duration: May 27, 2018 Frequency: 5 times per week Estimated Hrs Per Day: .25 hour per day Agreement: Yes Rehab Potential: Good Time/GCodes Start Time: 09:25 Stop Time: 10:00 Total Time Billed (hr/min): 35 Billed Treatment Time 1, EVH x 15minutes, ADL x 20minutes NIXON HOOPER OT May 13, 2018 11:27
--- NOTE | 2018-05-13 11:51 | Progress Note-Hospitalist ---
Progress Note Progress Notes/Assess & Plan Date Seen 05/13/18 Time Seen by Provider: 11:48 Assessment & Plan The patient is an 82-year-old white female known to me from previous admission. She fell and suffered a right hip fracture. This was operatively repaired by Dr. Ortiz on 05/11. Her hemoglobin at the time of admission was 10.4. It is now 7.4. She takes Coumadin as she has an aortic valve replacement. Her INR today is 3.1. She will receive 2 units of packed red blood cells today to take her up to the 10 range in order to be able to perform her IRF rehabilitation requirements. Physical exam: She is alert and oriented. Lungs are clear to auscultation. CV is regular. Abdomen is soft. The right hip dressings are dry. There is no evidence of gross hematoma on the anterior or lateral upper thigh. Impression: Fracture right hip post op. 2.increased degree of anemia secondary to fracture, surgery, anticoagulation. 3.past history of aortic valve replacement. 4.severe mitral valvular disease. Plan: 2 units of packed red blood cells today and plan IRF transfer tomorrow. URBAN FRIEDMAN MD May 13, 2018 11:51
[2018-05-13] MEDS ORDERED: NS IV 500 ML 500 ML IV SCH (12:01)
[2018-05-13] MEDS: NS IV 500 ML 500 ML IV SCH (12:48)
--- NOTE | 2018-05-13 13:02 | Physical Therapy Progress Note ---
Therapy Progress Note Pt eating lunch as PT entered. Pt's daughter present. 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 Educated pt and daughter on what to expect with ARU as well as our PT goals to return to PLOF. Pt and daughter voiced understanding of all. [id number] visit EDUC 15 HARDIK NGUYEN PT May 13, 2018 13:02
--- NOTE | 2018-05-13 13:10 | Physical Therapy Progress Note ---
Therapy Progress Note Patient is currently receiving PRBC. Per RN, site is going "bad" and they are looking to change site. Patient c/o IV site discomfort. Due to critical Hgb, PT will resume in a.m. KATHERINE RUTHERFORD PT May 13, 2018 13:10
[2018-05-13] MEDS: MELATONIN 3 MG TABLET PO PRN (20:40)
[2018-05-14] VITALS: BP 107/51
[2018-05-14 04:08] VITALS: BP 100/51
[2018-05-14] MEDS: NS IV 500 ML 500 ML IV SCH (05:47)
[2018-05-14] MEDS: MULTIVIT W/MINERALS TAB (THERAGRAN M) PO SCH (05:48)
[2018-05-14] MEDS: HYDROcodone/APAP 5 MG/325 MG (LORTAB) TAB PO PRN ×2 (05:48→10:20)
[2018-05-14 05:49] LABS: HEMOGLOBIN 8.7 G/DL (11.5-16.0)
[2018-05-14] MEDS: PANTOPRAZOLE 40 MG (PROTONIX) TAB PO SCH (05:49)
[2018-05-14] MEDS: LEVOTHYROXINE 100 MCG (LEVOTHROID) TAB PO SCH (05:49)
[2018-05-14 05:58] LABS: INR 2.6 (0.8-1.4); PROTHROMBIN TIME PATIENT 28.2 SEC (12.2-14.7)
--- NOTE | 2018-05-14 07:10 | Progress Note-Standard ---
Standard Progress Note Progress Notes/Assess & Plan Date Seen by Provider: May 14, 2018 Time Seen by Provider: 07:09 Progress/Assessment & Plan consult dictated spoke with family and patient at length plan for right hip bipolar replacement in AM Final Diagnosis no complaints Vital Signs Date Time Temp Pulse Resp B/P (MAP) Pulse Ox O2 Delivery O2 Flow Rate FiO2 05/14/18 04:08 98.3 89 18 100/51 (67) 92 Nasal Cannula 2.00 05/14/18 00:00 98.5 91 18 107/51 (69) 94 Nasal Cannula 2.00 05/13/18 20:40 93 Nasal Cannula 2.00 05/13/18 20:40 98.9 90 18 115/54 (74) 93 Nasal Cannula 2.00 05/13/18 19:05 99.4 05/13/18 17:56 99.1 85 20 102/51 Nasal Cannula 3.00 05/13/18 16:25 99.1 86 18 104/54 (71) 92 Nasal Cannula 2.50 05/13/18 14:45 98.9 87 18 113/70 Nasal Cannula 3.00 05/13/18 14:31 99.0 85 20 110/51 99 Nasal Cannula 4.00 05/13/18 13:12 98.9 90 20 102/56 Room Air 05/13/18 13:00 88 05/13/18 12:43 98.7 84 20 104/50 99 Room Air 05/13/18 12:00 99.8 89 20 106/52 (70) 100 Nasal Cannula 6.00 05/13/18 08:00 99.3 85 22 93/51 (65) 91 Nasal Cannula 5.00 05/13/18 08:00 Nasal Cannula 4.00 05/13/18 07:11 5.00 I & O 05/14/18 07:00 Intake Total 610 ml Output Total 750 ml Balance -140 ml Laboratory Tests Test 05/13/18 11:59 05/14/18 05:40 Range/Units Lab Scanned Report Transfusion Reaction Form [id number] Hemoglobin 8.7 L 11.5-16.0 G/DL Hematocrit 27 L 35-52 % Prothrombin Time 28.2 H 12.2-14.7 SEC INR Comment 2.6 H 0.8-1.4 R hip dressing intact. No calf tenderness. Neg Jennifer's s/p R hip bipolar to IRF today ZAFUTA,ARCENIO P MD May 14, 2018 07:10
--- NOTE | 2018-05-14 07:36 | DISCHARGE SUMMARY ---
DATE OF SERVICE: DIAGNOSES: 1. Right femoral neck fracture. 2. Anemia secondary to surgical blood loss. 3. History of aortic valve replacement. 4. Mitral valve stenosis. 5. Coronary artery disease. 6. Hypertension. 7. Congestive heart failure. 8. Peripheral vascular disease. 9. Abdominal aortic aneurysm. PROCEDURES: 1. Right hip bipolar replacement. 2. Transfusion of packed red blood cells. SUMMARY: The patient is an 82-year-old female who presented with a right femoral neck fracture. She underwent a bipolar replacement the following morning and has done well. Postoperatively, her hematocrit dropped to 24 and she received packed red blood cells and at the time of discharge her hematocrit was 27. Her wound was clean and dry. She was advancing with physical therapy. DISPOSITION: Transferred to inpatient rehabilitation unit for continued physical and occupational therapy. DIET: Regular. ACTIVITIES: Weightbearing as tolerated with a walker and hip precautions. Job ID: [id number] DocumentID: [id number] Dictated Date: 05/14/2018 07:12:45 Solar Manager Date: 05/14/2018 07:35:30 Dictated By: ARCENIO GODOY MD
--- NOTE | 2018-05-14 07:49 | Cardiology Progress Note ---
Subjective Date Seen by Provider: May 14, 2018 Time Seen by Provider: 07:47 Subjective/Events-last exam Patient is laying down in bed, had significant pain in her leg last night Review of Systems General: No Chills, No Night Sweats, No Fatigue, No Malaise, No Appetite, No Other HEENT: No Head Aches, No Visual Changes, No Eye Pain, No Ear Pain, No Dysphasia , No Sinus Congestion, No Post Nasal Drip, No Sore Throat, No Other Cardiovascular: No: Chest Pain, Palpitations, Orthopnea, Paroxysmal Noc. Dyspnea, Edema, Lt Headedness, Other Objective-Cardiology Exam Last Set of Vital Signs Vital Signs 05/14/18 04:08 Temp 98.3 Pulse 89 Resp 18 B/P (MAP) 100/51 (67) Pulse Ox 92 O2 Delivery Nasal Cannula O2 Flow Rate 2.00 Capillary Refill : Less Than 3 SecondsLess Than 3 Seconds I&O Intake and Output 05/14/18 00:00 Intake Total 660 ml Output Total 900 ml Balance -240 ml Intake Oral 660 ml Output Urine Total 900 ml General: Alert, Oriented X3, Cooperative HEENT: Atraumatic, PERRLA Neck: Supple, No JVD, No Thyromegaly Lungs: Normal Air Movement, Other (bilateral rhonchi) Heart: Normal S1, Normal S2, No Murmurs, Other (S3 is present, systolic murmur at the left sternal border) Abdomen: Normal Bowel Sounds, Soft, No Tenderness, No Hepatosplenomegaly, No Masses Extremities: No Clubbing, No Cyanosis, No Edema, Normal Pulses, No Tenderness/ Swelling Skin: No Rashes, No Significant Lesion, Other Neuro: Normal Speech, Normal Tone, Sensation Intact Psych/Mental Status: Mental Status NL, Mood NL Results Lab Laboratory Tests 05/14/18 05:40 A/P-Cardiology Admission Diagnosis Right hip fracture Mitral valve stenosis Aortic valve stenosis Congestive heart failure, chronic compensated left ventricular systolic dysfunction, nonischemic cardiomyopathy Assessment/Plan Right hip fracture, status post surgical repair done on May 11, 2018, recovering slowly, doing well. Continue to monitor Chest pain nonspecific etiology, no further episodes were reported. Continue to monitor Anemia, worsening postoperatively. Monitor H&H and transfuse as needed History of mild coronary artery disease, nonobstructive disease by cardiac catheterization in September 2014, stress test in December 2016 showing no ischemia, continue to monitor closely Congestive heart failure, chronic left ventricular systolic dysfunction, nonischemic cardiomyopathy, secondary to valvular heart disease. Has history of ICD implanted MATE CHIEF-D done in August 2012. Severe mitral valve stenosis, rheumatic valve, history of severe mitral regurgitation and pulmonary hypertension with estimated PA pressure of 55 mmHg, severely dilated left atrium. She was seen Dr. Page at in the past and she was considered high risk for valve surgery. She is not a candidate for mitral clip surgery due to her severe mitral stenosis, patient was referred for TMVR with Dr. Davila at , she decided to continue with conservative management and will consider the procedure if she become more symptomatic. 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 Last echocardiogram was done in April 2018 and the valve was functioning normally Peripheral vascular disease, patient has venous insufficiency on the right side that required ablation,peripheral angiogram May 2017, intervention to the anterior tibial artery, the wound has healed then developed a new ulcer after a trauma. Did balloon angioplasty to the right anterior tibial artery proximal portion has significant improvement the distal portion is occluded and did not improve, the posterior tibial artery and peroneal arteries were occluded with no collaterals in that area. The right SFA has multiple segment of moderate to severe stenosis, balloon angioplasty to the mid SFA with good results. Abdominal aorta has moderate disease, the left SFA has mild to moderate disease down to the trifurcation. We'll continue with medical therapy, the ulcer on her foot is completely healed. Continue to monitor Carotid stenosis, continue to monitor, followed by heart and vascular care. 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 followed and monitored by heart and vascular care. Hypertension, restart home medications and monitor Hyperlipidemia, continue on current medication monitor lipids Clinical Quality Measures DVT/VTE Risk/Contraindication: Risk Factor Score Per Nursin RFS Level Per Nursing on Admit: 4+=Very High PRANEETH SHUKLA MD May 14, 2018 07:48
[2018-05-14 08:00] VITALS: BP 106/52
[2018-05-14] MEDS: LORATADINE (CLARITIN) 10 MG TAB PO SCH (09:05)
[2018-05-14] MEDS: DIGOXIN 0.125 MG (LANOXIN) TAB PO SCH (09:06)
[2018-05-14] MEDS: ISOSORBIDE MONONITRATE 30 MG (IMDUR) TAB PO SCH (09:06)
[2018-05-14] MEDS: MEXILETINE 150 MG (MEXITIL) CAPSULE PO SCH (09:06)
[2018-05-14] MEDS: meTOproloL SUCCINATE 50 MG (TOPROL XL) TAB PO SCH (09:06)
[2018-05-14] MEDS: SENNOSIDES 8.6 MG (SENOKOT) TAB PO SCH (09:06)
[2018-05-14] MEDS: warFARin 1 MG (COUMADIN) TAB PO SCH (09:12)
--- NOTE | 2018-05-14 10:17 | Progress Note-Hospitalist ---
Progress Note Progress Notes/Assess & Plan Date Seen 05/14/18 Time Seen by Provider: 10:15 Assessment & Plan tHE PATIENT RECEIVED 2 UNITS OF PACKED RED BLOOD CELLS YESTERDAY. hER HEMOGLOBIN HAS COME UP FROM 7.4 TO 8.7. She is to be transferred to the inpatient rehabilitation facility today. She appears somewhat anxious about this and is concerned about the 3 hour therapy requirements. She was assured that this was not all about weight lifting and running laps. Physical exam: Lungs are clear to auscultation. CV is regular with a click. Extremities show no pedal edema. Impression: Postop right hip fracture. 2.prosthetic valve replacement, aortic. 3.past history of congestive heart failure. 4.severe mitral valve disease considered inoperable Plan: Dismissed and transferred to URBAN SANDERS MD May 14, 2018 10:17
--- NOTE | 2018-05-14 10:21 | Discharge Instructions ---
Discharge Instructions Patient Instructions Patient Instructions: Engage in rehabilitation efforts Pro time/INR Mondays and Activity & Diet Discharge Diet: Coumadin Patient Diet Activity as Tolerated: Yes URBAN FRIEDMAN MD May 14, 2018 10:21
[2018-05-24] MEDS ORDERED: METO-387 PO (08:15)
[2018-05-24] MEDS ORDERED: ACHD5005 PO (08:15)
== END 2018-05-14 10:30 | DRG 470 ==
LOC: EDUNIT# 12:31 → ER 12:33 → 4TH 13:52
PROVIDERS: ADMIT Family Medicine; ATTEND Family Medicine
PROC: 0SRR0JA Replacement of Right Hip Joint, Femoral Surface with Synthetic Substitute, Uncemented, Open Approach (ICD-10-PCS; principal; 2018-05-11 07:47)
DX: S72.011A Unspecified intracapsular fracture of right femur, initial encounter for closed fracture (principal); I50.22 Chronic systolic (congestive) heart failure; D62 Acute posthemorrhagic anemia; I42.9 Cardiomyopathy, unspecified; I08.0 Rheumatic disorders of both mitral and aortic valves; S00.11XA Contusion of right eyelid and periocular area, initial encounter; S50.01XA Contusion of right elbow, initial encounter; Z23 Encounter for immunization; D64.9 Anemia, unspecified; R07.9 Chest pain, unspecified; I25.10 Atherosclerotic heart disease of native coronary artery without angina pectoris; I27.20 Pulmonary hypertension, unspecified; I73.9 Peripheral vascular disease, unspecified; I65.29 Occlusion and stenosis of unspecified carotid artery; I71.4 Abdominal aortic aneurysm, without rupture; I11.0 Hypertensive heart disease with heart failure; M81.0 Age-related osteoporosis without current pathological fracture; E78.5 Hyperlipidemia, unspecified; E03.9 Hypothyroidism, unspecified; Z95.2 Presence of prosthetic heart valve; W01.10XA Fall on same level from slipping, tripping and stumbling with subsequent striking against unspecified object, initial encounter; Y92.019 Unspecified place in single-family (private) house as the place of occurrence of the external cause; Z95.810 Presence of automatic (implantable) cardiac defibrillator; Z79.01 Long term (current) use of anticoagulants
CPT/HCPCS: 36415; 51702; 70450; 71045; 72125; 73080; 73502; 80053; 81000; 83735; 84484; 85014; 85018; 85025; 85027; 85610; 85730; 86850; 86900; 86901; 86920; 87081; 90471; 90715; 93041; 94664; 96374

== ENCOUNTER 2018-05-13 11:18 | Inpatient (IN) | payer MEDICARE ==
[~2018-05-13] VITALS: Ht 165.1 cm; Wt 59.6 kg
--- OUTSIDE RECORDS SUMMARY | 2018-05-14 11:08 | XMS REPORT | Clinical Summary ---
Author Author [facility] Organization [facility] Address Unknown Phone Unavailable Care Team Providers Care Sheriff Deputy Name Role Phone Jake Prabhakar MD PCP Kristi Charlton Unavailable Eliceo Parker MD 21 Source Comments Some departments are not documenting in the electronic medical record. If you do not see the information that you expected, contact Release of Information in the Health Information Management department at [phone] for further assistance in locating additional records.[facility] Allergies No Known Allergies Current Medications Prescription [...] S/P aortic valve replacement with prosthetic valve, custodial current use of anticoagulant, HLD (hyperlipidemia), PVD [...] block (RBBB) with posterior hemiblock 03/21/2012 Cardiomyopathy ([facility]) 03/21/2012 Overview: : EF 30, dilated LV. Severe MR & TR PAP 55 (42 a year earlier, EF 35, MR and TR mod-severe). AVR "OK" Chronic systolic CHF (congestive heart failure), NYHA class 3 ([facility]) 2011 Last Assessment & Plan: [...] HLD (hyperlipidemia) 03/19/2012 PVD (peripheral vascular disease) ([facility]) 03/19/2012 Atrial fibrillation ([facility]) 03/19/2012 Overview: Permanent as of 2011 90+% paced-DDIR at 70 on cardizem 240, dig .125, coreg 6.25bid 08/07/12 Initiated on digoxin 0.125mcg daily to assist with BiV pacing pacing L ast Assessment & Plan: Continues to be in permanent atrial fibrillation. Overall well rate controlled. Biventricular ICD (implantable cardioverter-defibrillator) in place 2011 Overview: MDSebastián DC PPM- L side 200408/07/12 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 Ceja. Roxy cintron Assessment & Plan: Device was checked today and demonstrated normal function. See device check and cardiovascular studies for further details. Resolved Problems Problem Noted Date Resolved Date ERRONEOUS ENCOUNTER--DISREGARD 09/01/2015 02/18/2018 Dilated cardiomyopathy (HCC) 03/18/2012 03/21/2012 Encounters Date Type Specialty Care Team Description 02/18/2018 [facility] Cardiology Anisa Mccormick APRN-C Encounter 02/18/2018 Office Visit Cardiothoracic Surgery Eren Ashley MD Mitral valve insufficiency, unspecified etiology (Primary Dx); Chronic systolic CHF (congestive heart failure), NYHA class 3 (HCC); Atrial fibrillation, unspecified type (HCC); Mitral valve stenosis, unspecified etiology; Aortic valve insufficiency, etiology of cardiac valve disease unspecified; S/P aortic valve replacement with prosthetic valve 02/18/2018 [facility] Cardiology Anisa Mccormick APRN-C Encounter 02/18/2018 Office Visit Cardiology Anisa Mccormick APRN-C PVD (H&P for STEVEN ); CAD; Atrial fibrillation; Cardiomyopathy 02/15/2018 Telephone Cardiology Marguerite Fam RN STEVEN Pre-Procedure Instuctions from Last 3 Months Family History Medical History Relation Name Comments Coronary Artery Disease Mother of CT Diabetes Mother Hyperlipidemia Mother Hypertension Mother Relation [...] 36.6 C (97.9 F) 08/09/2012 11:25 AM GLASS BENDER Respiratory Rate - - Oxygen Saturation 98% [...] Organization Address City/State/Zipcode Phone Number MAIN LAB [address] [place] [address] * BASIC METABOLIC PANEL (02/18/2018 10:06 AM) [...] Organization Address City/State/Zipcode Phone Number MAIN LAB [address] [place] [address] from Last 3 Months
--- OUTSIDE RECORDS SUMMARY | 2018-05-14 11:09 | XMS REPORT | Encounter Summary ---
Author Author [facility] Organization [facility] Address Unknown Phone Unavailable Care Team Providers Care Education And Development Manager Name Role Phone Jake Prabhakar MD PCP Kristi Charlton Unavailable Eliceo Parker MD 21 Reason for Visit * Reason Comments STEVEN Pre-Procedure Instuctions Encounter Details Date Type Department Care Team Description 02/15/2018 Telephone [facility] Cardiology Marguerite Fam RN STEVEN [facility] [address] [place] [address] Social History Tobacco Use Types Packs/Day Years [...] to take and hold. Pt will have transit driver with her. No additional questions at this time. in this encounter Plan of Treatment Not on fileas of this encounter Visit Diagnoses Not on filein this encounter
--- OUTSIDE RECORDS SUMMARY | 2018-05-14 11:09 | XMS REPORT | Encounter Summary ---
Author Author [facility] Organization [facility] Address Unknown Phone Unavailable Care Team Providers Care Industrial Workers Name Role Phone Jake Prabhakar MD PCP Kristi Charlton Unavailable Eliceo Parker MD 21 Reason for Referral * Test Status Reason Specialty Diagnoses / Referred By Referred To Procedures Contact Contact No Auth Needed Cardiology Diagnoses Anisa Mccormick Bhg Card Echopv Mitral valve OVEN UNLOADER-C [facility] insufficiency, [id number] etiology [address] [place], [place] [address] [facility] [address] Phone: TRANSESOPHAGEAL ECHOCARDIOGRAM [phone] [place] ECHO Fax: TRANSESOPHAG R-T [phone] 2D W/PRB IMG ACQUISJ I&R * Test Status Reason Specialty Diagnoses / Referred By Referred To Procedures Contact Contact No Auth Needed Cardiology Diagnoses Anisa Mccormick Bhg Card Echopv Mitral valve OVEN UNLOADER-C [facility] insufficiency, [id number] etiology [address] [place], [place] [address] rocedures [address] Phone: TRANSESOPHAGEAL ECHOCARDIOGRAM [phone] [place] Fax: TRANSESOPHAG R-T [phone] 2D W/PRB IMG ACQUISJ I&R Reason for Visit * Test Status Reason Specialty Diagnoses / Referred By Referred To Procedures Contact Contact No Auth Needed Cardiology Diagnoses Anisa Mccormick, mert Card Echopv Mitral valve OVEN UNLOADER-C [facility] insufficiency, [id number] etiology [address] [place], [place] [address] rocedures [address] Phone: TRANSESOPHAGEAL ECHOCARDIOGRAM [phone] [place] Fax: TRANSESOPHAG R-T [phone] 2D W/PRB IMG ACQUISJ I&R Encounter Details Date Type Department Care Team Description 02/18/2018 [facility] Cardiology Anisa Mccormick APRN-C Encounter [facility] [place] [address] [place] [address] [phone] Social History Tobacco Use Types Packs/Day Years [...] S/P aortic valve replacement with prosthetic valve, skilled nursing current use of anticoagulant, HLD (hyperlipidemia), PVD (peripheral vascular disease) ([facility]), Atrial fibrillation (HCC), CAD (coronary artery disease), 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
--- OUTSIDE RECORDS SUMMARY | 2018-05-14 11:09 | XMS REPORT | Encounter Summary ---
Author Author [facility] Organization [facility] Address Unknown Phone Unavailable Care Team Providers Care Keyseating Machine Set Up Operator Name Role Phone Jake Prabhakar MD PCP Kristi Charlton Unavailable Eliceo Parker MD 21 Reason for Visit * Reason Comments Cardiac Eval MR/[place] Evalutaion * Consult, Test & Treat Status Reason Specialty Diagnoses / Referred By Referred To Procedures Contact Contact Closed Specialty Cardiothoracic Diagnoses Eliceo Parker Bhg [facility] Mitral valve MD [facility], [address] [facility] [place] [address] [place] [address] Phone: Fax: Encounter Details Date Type Department Care Team Description 02/18/2018 Office Visit [facility] Eren Ashley MD Mitral valve [facility] [address] [facility] [address] unspecified etiology [address] [place] [address] (Primary Dx); [place] [address] Chronic systolic CHF [phone] (congestive heart failure), NYHA class 3 (HCC); [...] severe tricuspid regurgitation as well. Her outside company miner blasting wanted her to be evaluated for potential transcatheter mitral valve replacement as part of the [place] trial. Ms. Mcfarland has been doing fairly well and is relatively stable. She states she started Entresto about a year ago and since then has had improvement in heart failure symptoms. She denies any chest pain, shortness of breath, lower extremity edema, palpitations, near-syncope or syncope. She does sleep with O2 at night. 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 [...] which can be done by her primary company miner blasting to ensure she is not having any changes in her LV function. If she has any decline, we can consider STEVEN and further workup for the [place] trial. We will plan to see her [...] Ashley MD Cardiovascular and Thoracic Surgery [facility] [place] [email or web address] in this encounter Plan of [...]
--- OUTSIDE RECORDS SUMMARY | 2018-05-14 11:09 | XMS REPORT | Encounter Summary ---
Author Author [facility] Organization [facility] Address Unknown Phone Unavailable Care Team Providers Care Power Plant Assistant Name Role Phone Jake Prabhakar MD PCP Kristi Charlton Unavailable Eliceo Parker MD 21 Reason for Visit * Reason Comments PVD H&P for STEVEN CAD Atrial fibrillation Cardiomyopathy Encounter Details Date Type Department Care Team Description 02/18/2018 Office Visit [facility] Cardiology Anisa Mccormick APRN-C PVD (H&P for STEVEN ); CAD; [place] [address] [address] Atrial fibrillation; [address] [place] [address] [place] [address] [phone] Social History Tobacco Use Types Packs/Day Years [...] severe tricuspid regurgitation as well. Her outside news specialist wanted her to be evaluated for potential transcatheter mitral valve replacement as part of the [place] trial. She is scheduled to see Dr. 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 ENGAGEMENT SPECIALIST-D upgrade implant + DFTs with Dr. Ceja. [...] unspecified etiology Yes Atrial fibrillation, unspecified type ([facility]) PVD (peripheral vascular disease) ([facility]) Chronic systolic CHF (congestive heart failure), NYHA class 3 ([facility]) Cardiomyopathy, unspecified type ([facility]) S/P aortic valve replacement with prosthetic valve Biventricular ICD (implantable cardioverter-defibrillator) in place Assessment and Plan 1. Severe mitral regurgitation with mitral stenosis. She is having a repeat STEVEN today to further assess the mitral valve to determine if she is a candidate for enrollment in the [place] trial or to see if there are [...] for questions. Specimen Blood Performing Organization Address City/[facility]/Zipcode Phone Number [facility] [address] [place] [phone] * PROTIME INR (PT) (02/18/2018 10:06 AM) INR 1.6 (H) 0.8 - 1.2 [facility] Specimen Blood Performing Organization Address City/[facility]/Zipcode Phone Number [facility] [address] [place] [address] in this encounter Visit Diagnoses Diagnosis Mitral valve insufficiency, unspecified etiology - Primary Atrial fibrillation, unspecified type ([facility]) PVD (peripheral vascular disease) ([facility]) Peripheral vascular disease, unspecified Chronic systolic CHF (congestive heart failure), NYHA class 3 ([facility]) Chronic systolic heart failure Cardiomyopathy, unspecified type ([facility]) S/P aortic valve replacement with prosthetic valve Heart valve replaced by other means Biventricular ICD (implantable cardioverter-defibrillator) in place
--- OUTSIDE RECORDS SUMMARY | 2018-05-14 11:09 | XMS REPORT | Encounter Summary ---
Author Author [facility] Organization [facility] Address Unknown Phone Unavailable Care Team Providers Care Copier Operator Name Role Phone Jake Prabhakar MD PCP Kristi Charlton Unavailable Eliceo Parker MD 21 Encounter Details Date Type Department Care Team Description 02/18/2018 [facility] Cardiology Anisa Mccormick APRN-Ragini Encounter [place] [address] [address] [facility] [address] [facility] [address] [place] [address] [place] [address] [phone] Social History Tobacco Use Types Packs/Day Years [...] S/P aortic valve replacement with prosthetic valve, long-term current use of anticoagulant, HLD (hyperlipidemia), PVD [...] Organization Address City/State/Zipcode Phone Number MAIN LAB [address] [place] [phone] * BASIC METABOLIC PANEL (02/18/2018 10:06 AM) [...] Organization Address City/State/Zipcode Phone Number MAIN LAB [address] [place] [address] in this encounter Visit Diagnoses Diagnosis Atrial fibrillation, unspecified type (HCC)
--- NOTE | 2018-05-14 11:15 | Physical Therapy Evaluation ---
PT Evaluation-General Medical Diagnosis Admission Date May 14, 2018 at 10:30 Medical Diagnosis: right hip fracture Onset Date: May 10, 2018 Therapy Diagnosis Therapy Diagnosis: generalized weakness/debility Height/Weight Height (Feet): 5 Height (Inches): 6.00 Weight (Pounds): 140 Weight (Ounces): 4.0 Precautions Precautions/Isolations: Standard Precautions hip precautions Weight Bear Status Right Lower Extremity: Right Weight Bearing/Tolerated Left Lower Extremity: Left Full Weight Bearing Referral Physician: Cipriano Medical History Pertinent Medical History: Atrial Fib, Arthritis, CAD, Heart Failure, HTN, Hypothroidism, OA, Renal Insufficiency Current History tripped and fell at home Reviewed History: Yes Social History Home: Single Level Current Living Status: Alone Entry Into Home: Stairs With Railing PT Steps Into Home: 3 Prior/Core FIM Prior Level of Function Functional [place] Measure 0=Not Assessed/NA 4=Minimal Assistance 1=Total Assistance 5=Supervision or Setup 2=Maximal Assistance 6=Modified [place] 3=Moderate Assistance 7=Complete [place] Bed Mobility: 7 Transfers (B,C,W/C) (FIM): 7 Gait: 7 Locomotion: 7 PT Evaluation-Current Subjective Patient agrees to PT. Pain Numeric Pain Scale: 5-Moderate Pain Location: Right Location Body Site: Hip Pain Description: Acute Objective Patient Orientation: Normal For Age Problem Solving: Fair Attachments: Oxygen (5L) ROM/Strength ROM Lower Extremities right total hip precautions/left LE WFL Strenght Lower Extremities right LE 3/5 grossly/left LE 4/5 grossly Integumentary/Posture Integumentary refer to nursing notes Bowel Incontinence: No Bladder Incontinence: No Posture slightly kyphotic Neuromuscular (Tone, Coordination, Reflexes) grossly intact Sensory Vision: Wears Glasses Hearing: Functional Sensation Right Lower Extremit: Intact Sensation Left Lower Extremity: Intact Transfers Functional [place] Measure 0=Not Assessed/NA 4=Minimal Assistance 1=Total Assistance 5=Supervision or Setup 2=Maximal Assistance 6=Modified [place] 3=Moderate Assistance 7=Complete IndependenceIRFPAI Quality Coding Scale 6 Independent with activity with or without an assistive device 5 Patient requires set up or clean up by helper. Patient completes activity by themselves 4 Supervision or touching assist (CGA). [place] provide cues , steadying assist 3 The helper provides less than half the effort to complete the activity 2 The helper provides more than half the effort to complete the activity 1 Dependent. The helper does all the effort to complete an activity 7 Patient refused to complete or attempt activity 9 The patient did not perform the activity before the current illness or injury 88 Not attempted due to Medical conditions or safety concerns Transfers (B, C, W/C) (FIM): 4 Scootin Rollin Roll Left to Right (QC): 4 Supine to/from Sit: 4 Sit to/from Stand: 4 Sit to Lying (QC): 4 Lying to Sitting/Side of Bed(Q: 4 Sit to Stand (QC): 4 Chair/Ihu-jc-Ticcj Xfer(QC): 4 Car Transfer (QC): 5 Gait Does the Patient Walk?: Yes Mode of Locomotion: Walk Anticipated Mode of Locomotion: Walk Gait (FIM): 1 Distance (FIM): 1=up to 49 ft Walk 10 feet (QC): 4 Walk 50 ft with 2 Turns(QC): 88 Walk 150 ft (QC): 88 Walking 10ft/uneven surface-QC: 4 Distance: 20' x 2 Gait Level of Assist: 4 Gait Persons Needed: 1 Gait Assistive Device: FWW Comments/Gait Description slow and antalgic/skilled verbal instruction for WBAT right LE (encourage) Stairs Stairs (FIM): 1 #of Steps: 1 Level of Assist: 4 1 Step (curb) (QC): 4 4 Steps (QC): 88 Assistive Device: Walker 12 Steps (QC): 9 Balance Sitting Static: Normal Sitting Dynamic: Normal Standing Static: Fair Standing Dynamic: Fair Picking up an Object (QC): 4 Assessment/Needs 82 y.o. female, will benefit from skilled PT to address functional strength and mobility to improve current LOF to safely return to home with family at maximum LOF. Rehab Potential: Fair PT Process Engineer Goals Custodial Goals PT Process Engineer Goals Time Frame: Jun 01, 2018 Transfers (B,C,W/C) (FIM): 6 Sit to Lying (QC): 6 Lying-Sitting on Side/Bed(QC): 6 Sit to Stand (QC): 6 Rollin Roll Left to Right (QC): 6 Chair/Pww-qg-Tecdv Xfer(QC): 6 Car Transfer (QC): 6 Does the Patient Walk: Yes Gait (FIM): 6 Gait distance (FIM): 3=150 ft Distance: 200' Walk 10 feet (QC): 6 Walk 10ft-Uneven Surface(QC): 6 Walk 50ft with 2 Turns (QC): 6 Walk 150 ft (QC): 6 Gait Level of Assist: 6 Gait Assistive Device: FWW Stairs (FIM): 5 # of Steps: 8 1 Step (curb) (QC): 5 4 Steps (QC): 5 12 Steps (QC): 9 Stairs Level Of Assist: 5 Picking up an Object (QC): 5 PT Plan Problem List Problem List: Activity Tolerance, Functional Strength, Safety, Balance, Gait, Transfer, Bed Mobility Treatment/Plan Treatment Plan: Continue Plan of Care Treatment Plan: Bed Mobility, Education, Functional Activity Rick, Functional Strength, Group Therapy, Gait, Safety, Therapeutic Exercise, Transfers Treatment Duration: Jun 01, 2018 Frequency: At least 5 of 7 days/Wk (IRF) Estimated Hrs Per Day: 1.5 hours per day Patient and/or Family Agrees t: Yes Safety Risks/Education Patient Education: Gait Training Teaching Recipient: Patient Teaching Methods: Demonstration, Discussion Response to Teaching: Verbalize Understanding, Return Demonstration Discharge Recommendations Therapy D/C Recommendations: Home w/ Family Support, Physical Therapy Home Care Time/GCodes Time In: 1030 Time Out: 1100 Total Billed Treatment Time: 30 Total Billed Treatment 1 visit EVHighC 30 min KATHERINE RUTHERFORD PT May 14, 2018 11:15
--- NOTE | 2018-05-14 11:38 | Physical Therapy Daily Note ---
PT Daily Note-Current Subjective pt in w/c pre tx, agrees to PT, pain /10 R hip Appearance pt in w/c post tx, w/ phone, call light, tray, all needs met, OT to begin treatment following PT Mental Status Patient Orientation: Person, Place, Time Attachments: Oxygen (5L) Transfers Functional [place] Measure 0=Not Assessed/NA 4=Minimal Assistance 1=Total Assistance 5=Supervision or Setup 2=Maximal Assistance 6=Modified [place] 3=Moderate Assistance 7=Complete IndependenceIRFPAI Quality Coding Scale 6 Independent with activity with or without an assistive device 5 Patient requires set up or clean up by helper. Patient completes activity by themselves 4 Supervision or touching assist (CGA). [place] provide cues , steadying assist 3 The helper provides less than half the effort to complete the activity 2 The helper provides more than half the effort to complete the activity 1 Dependent. The helper does all the effort to complete an activity 7 Patient refused to complete or attempt activity 9 The patient did not perform the activity before the current illness or injury 88 Not attempted due to Medical conditions or safety concerns Transfers (B, C, W/C) (FIM): 4 Sit to/from Stand: 4 Bed to/from Chair: 4 sit<->stand CGA w/ cues to push off and reach back for chair. Weight Bearing Right Lower Extremity: Right Weight Bearing/Tolerated Left Lower Extremity: Left Full Weight Bearing Gait Training Does the Patient Walk?: Yes Gait (FIM): 1 Distance (FIM): 1=up to 49 ft Distance: 20'x2 Gait Level of Assist: 4 Gait Persons Needed: 1 Gait Assistive Device: FWW pt ambulates 20'x2 w/ CGA using FWW, antalgic gait w/ decreased stance time on RLE Wheelchair Training Does the Pt Use a Wheelchair?: Yes Wheelchair (FIM): 1 Wheelchair Distance: 1=up to 49 ft Distance: 150' Wheelchair Level of Assist: 1 Type of Wheelchair: Manual Exercises Seated Therapy Exercises: Ankle pumps (20 reps), Long arc quads (R only x20) Seated Reps: 20 Standing: Heel/toe raises (10 reps), 3 way Ex=Flex, Abd, Ext (20 reps, no ext) , Mini squats (10 reps), Weight shifts (2 min) Treatments gait training, functional strengthening Assessment Current Status: Fair Progress impaired strength, mobility, and activity tolerance PT Short Term Goals Short Term Goals Time Frame: May 14, 2018 PT Intermediate Goals Master Control Supervisor Goals PT Intermediate Goals Time Frame: Jun 01, 2018 Transfers (B,C,W/C) (FIM): 6 Sit to Lying (QC): 6 Lying-Sitting on Side/Bed(QC): 6 Sit to Stand (QC): 6 Rollin Roll Left to Right (QC): 6 Chair/Hpc-cy-Pdlxw Xfer(QC): 6 Car Transfer (QC): 6 Does the Patient Walk: Yes Gait (FIM): 6 Gait distance (FIM): 3=150 ft Distance: 200' Walk 10 feet (QC): 6 Walk 10ft-Uneven Surface(QC): 6 Walk 50ft with 2 Turns (QC): 6 Walk 150 ft (QC): 6 Gait Level of Assist: 6 Gait Assistive Device: FWW Stairs (FIM): 5 # of Steps: 8 1 Step (curb) (QC): 5 4 Steps (QC): 5 12 Steps (QC): 9 Stairs Level Of Assist: 5 Picking up an Object (QC): 5 PT Plan Problem List Problem List: Activity Tolerance, Functional Strength, Safety, Balance, Gait, Transfer, Bed Mobility, ROM Treatment/Plan Treatment Plan: Continue Plan of Care Treatment Plan: Bed Mobility, Education, Functional Activity Rick, Functional Strength, Group Therapy, Gait, Safety, Therapeutic Exercise, Transfers Treatment Duration: Jun 01, 2018 Frequency: At least 5 of 7 days/Wk (IRF) Estimated Hrs Per Day: 1.5 hours per day Patient and/or Family Agrees t: Yes Safety Risks/Education Patient Education: Gait Training, Transfer Techniques, Reviewed Precautions, Correct Positioning, Safety Issues Teaching Recipient: Patient Teaching Methods: Demonstration, Discussion Response to Teaching: Reinforcement Needed Time/GCodes Time In: 1100 Time Out: 1130 Total Billed Treatment Time: 30 Total Billed Treatment 1 visit GT 15' EX 15' DARWIN WARD PT May 14, 2018 11:38
[2018-05-14 12:09] VITALS: BP 108/56
[2018-05-14] MEDS ORDERED: ANTACID SUSP 30 ML UDC (MYLANTA) PO PRN (12:30)
[2018-05-14] MEDS ORDERED: guaiFENesin (MUCINEX) 600 MG TAB PO PRN (12:30)
[2018-05-14] MEDS ORDERED: MILK OF MAGNESIA 400 MG/5 ML 30 ML UDC PO PRN (12:30)
[2018-05-14] MEDS ORDERED: TEMAZEPAM 15 MG (RESTORIL) CAP PO PRN (12:30)
[2018-05-14] MEDS ORDERED: MECLIZINE 25 MG (ANTIVERT) TAB PO PRN (12:30)
[2018-05-14] MEDS ORDERED: ACETAMINOPHEN 325 MG TABLET PO PRN (12:30)
--- NOTE | 2018-05-14 13:15 | Occupational Therapy Eval ---
OT Evaluation-General/PLF Medical Diagnosis Admission Date May 14, 2018 at 10:30 Medical Diagnosis: right hip fracture Onset Date: May 10, 2018 Therapy Diagnosis Therapy Diagnosis: decr self care, decr funct mobility, weakness, decr act jadiel Height/Weight Height (Feet): 5 Height (Inches): 6.00 Weight (Pounds): 140 Weight (Ounces): 4.0 Precautions Precautions/Isolations: Fall Prevention, Standard Precautions Weight Bear Status Weight Bearing Restriction: Weight Bearing/Tolerated Location Restriction: R LE hip precautions Referral Physician: Cipriano Medical History Pertinent Medical History: Atrial Fib, Arthritis, CAD, Heart Failure, HTN, Hypothroidism, OA, Renal Insufficiency Additional Medical History Aortic valve replacement. pacemaker/defibrillator. Angioplasty R tibial artery. Cataract surgery. O2 at night. Sleep apnea. Cardiomyopathy, AAA - no surgery. Severe carotid disease. Chronic edema. Restless legs. R leg venous ulcer Current History Fell going outside and have R hip fx, minor head injury, R elbow contusion/ abrasion. R bipolar total hip replacement 05-11-18. Received blood yesterday Reviewed History: Yes Social History Home: Single Level Current Living Status: Alone Entry Into Home: Stairs With Railing Steps Into Home: 3 ADL-Prior Level of Function ADL PLOF Comments Pt reported that she was previously able to manage all of her basic self care needs. 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 DME/Equipment: Bath Chair, Shower Hose Senior Health Consultant, Tub/Shower DME/Equipment Comments Has low toilet OT Current Status Subjective Pt seen in room, up in w/c, agreeable to OT. Pt reported pain 5/10 but not rated or described. Appearance Alert, cooperative Mental Status/Objective Patient Orientation: Person, Place, Time, Situation Attachments: IV, Oxygen (5L/min) Current Glasses/Contacts: Yes Hearing Aids: No Dentures/Partials: No Hand Dominance: Right Upper Extremity ROM Grossly WFL bilat Upper Extremity Sensation No problems, per pt report Upper Extremity Strength Grossly 4/5 bilat Edema: No UE edema noted ADL-Treatment ADL-Current She walked 20' x 2 with PT today with Min/CGA, FWW. Transfers min/CGA with PT. Pt education on hip precautions and their application to ADLs, with verbal understanding. pt left up in w/c, all needs met Functional [place] Measure 0=Not Assessed/NA 4=Minimal Assistance 1=Total Assistance 5=Supervision or Setup 2=Maximal Assistance 6=Modified [place] 3=Moderate Assistance 7=Complete IndependenceIRFPAI Quality Coding Scale 6 Independent with activity with or without an assistive device 5 Patient requires set up or clean up by helper. Patient completes activity by themselves 4 Supervision or touching assist (CGA). [place] provide cues , steadying assist 3 The helper provides less than half the effort to complete the activity 2 The helper provides more than half the effort to complete the activity 1 Dependent. The helper does all the effort to complete an activity 7 Patient refused to complete or attempt activity 9 The patient did not perform the activity before the current illness or injury 88 Not attempted due to Medical conditions or safety concerns Education OT Patient Education: Purpose of tx/functional activities, Reviewed precautions (hip), Rehab process Teaching Recipient: Patient, Family Teaching Methods: Discussion Response to Teaching: Verbalize Understanding, Reinforcement Needed OT Short Term Goals Short Term Goals Time Frame: May 21, 2018 Grooming(FIM): 6 Toilet/Commode Transfer(FIM): 5 Additional Short Term Goals: 1-Demonstrate ADL Tasks, 2-Verbalize Understanding , 3-ImproveStrength/Rick 1=Demonstrate adherence to instructed precautions during ADL tasks. 2=Patient will verbalize/demonstrate understanding of assistive devices/ modifications for ADL. 3=Patient will improve strength/tolerance for activity to enable patient to perform ADL's. OT Marine Insulator Goals Marine Insulator Goals Time Frame: Jun 01, 2018 Eating (FIM): 7 (no dentures) Eating (QC): 6 Groomin Oral Hygiene (QC): 6 Bathing(FIM): 6 Shower/Bathe Self (QC): 6 Upper Body Dressing(FIM): 6 Upper Body Dressing (QC): 6 Lower Body Dressing(FIM): 6 Lower Body Dressing (QC): 6 On/Off Footwear (QC): 6 Toileting(FIM): 6 Toileting Hygiene (QC): 6 Toilet/Commode Transfer(FIM): 6 Toilet/Commode Transfer (QC): 6 Shower Transfer(FIM): 5 Additional Goals: 1-Demonstrate ADL Tasks, 2-Verbalize Understanding, 3- ImproveStrength/Rick 1=Demonstrate adherence to instructed precautions during ADL tasks. 2=Patient will verbalize/demonstrate understanding of assistive devices/ modifications for ADL. 3=Patient will improve strength/tolerance for activity to enable patient to perform ADL's. OT Education/Plan Problem List/Assessment Assessment: Decreased Activ Tolerance, Decreased UE Strength, Dependent Transfers, Impaired Self-Care Skills Pt would benefit from skilled OT to increase her independence in basic self care to allow her to safely return home Discharge Recommendations Plan/Recommendations: Continue POC Treatment Plan/Plan of Care Treatment,Training & Education: Yes Patient would benefit from OT for education, treatment and training to promote independence in ADL's, mobility, safety and/or upper extremity function for ADL' s. Plan of Care: ADL Retraining, Functional Mobility, Group Exercise/Act as Ind ( education, exercise, activity tolerance, funct mobility, socialization), UE Funct Exercise/Act, UE Neuromus Re-Ed/Coord Treatment Duration: Jun 01, 2018 Frequency: At least 5 of 7 days/Wk (IRF) Estimated Hrs Per Day: 1.5 hours per day Agreement: Yes Rehab Potential: Fair Time/GCodes Start Time: 12:35 Stop Time: 13:00 Total Time Billed (hr/min): 25 Billed Treatment Time visit, 25 minutes evaluation moderate intensity ISHAN JOSE OT May 14, 2018 13:15
--- NOTE | 2018-05-14 13:20 | HISTORY AND PHYSICAL ---
DATE OF SERVICE: 05/14/2018 CHIEF COMPLAINT: Difficulty with walking. 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 The patient was evaluated in the ED and found to have a right femoral neck fracture. She was admitted to service of Dr. Ortiz and followed by hospitalist service. The patient underwent right hip bipolar replacement and required transfusion of packed red blood cells postop. She had a decline in her functional independence and was referred to inpatient rehabilitation unit. Currently, she requires assistance for ADLs and mobility skills. She is mod assist for her transfers and gait with a walker. She is set up for eating and grooming, max assist for lower body dressing, min assist for upper body dressing. PAST MEDICAL HISTORY: Atrial fibrillation, cardiomyopathy, coronary artery disease, hypercholesterolemia, hypertension, peripheral vascular disease and valvular heart disease. PAST SURGICAL HISTORY: Cholecystectomy, pacemaker and defibrillator placement, valve replacement, . ALLERGIES: No known medication allergies. FAMILY HISTORY: Noncontributory other than heart disease in mother, father did have pneumonia, in his 20s. AL in his mother. SOCIAL HISTORY: She is a and lives in [place], [place], had been independent and active. PCP, Dr. Prabhakar. She does take O2 at night at home. She has a supportive son nearby. She lives in a one tracy home and works part-time at [employer], which is a local [employer]. REVIEW OF SYSTEMS: A 10-point review of systems significant for shortness of breath, hip pain. MEDICATIONS: Plavix 75 mg p.o. daily, digoxin 125 mcg p.o. daily, furosemide 40 mg p.o. b.i.d., Mucinex 600 mg p.o. b.i.d., Imdur 15 mg p.o. daily, levothyroxine 100 mcg p.o. daily, Requip 10 mg p.o. daily, meclizine 25 mg p.o. t.i.d. p.r.n. dizziness, metolazone 2.5 mg p.o. every Sunday and Sunday, metoprolol 50 mg p.o. daily, mexiletine 150 mg p.o. b.i.d., nitroglycerin 0.4 mg sublingual p.r.n. chest pain, Protonix 40 mg p.o. daily, KCl 10 mEq p.o. b.i.d., Requip 0.5 mg p.o. t.i.d. as needed for restless legs, Karensto one tablet p.o. b.i.d., Coumadin 2 mg on Sunday, Sunday, Sunday; 1 mg Sunday, Sunday, and Sunday. PHYSICAL EXAMINATION: GENERAL: Significant for a thin, pleasant female appearing her stated age, alert and oriented, sitting in wheelchair, in no acute distress. VITAL SIGNS: She is afebrile, pulse is 88, respirations 18, blood pressure 108/56, O2 sat 100% on 3 liters O2 by nasal cannula. HEENT: Vision, speech, hearing is functional. No oral lesion is noted. NECK: Supple without mass. HEART: Regular rhythm. There is a systolic murmur present. CHEST: Clear. ABDOMEN: Soft, nontender, bowel sounds present. EXTREMITIES: Trace edema right ankle, no calf tenderness. MUSCULOSKELETAL: She has functional active range of motion both upper limbs and left lower limb. NEUROLOGIC: Sensation is grossly intact to touch. Cognition intact. Strength left lower extremity 3+/5, right lower extremity 3-/5. Upper extremity strength 4/5. IMPRESSION: 1. Ambulatory dysfunction secondary to fall with resulting right femoral neck fracture, status post right hip bipolar replacement by Dr. Ortiz, weightbearing as tolerated. 2. Anemia secondary to surgical blood loss, status post transfusion. 3. History of aortic valve replacement. 4. Mitral valve stenosis. 5. Coronary artery disease. 6. Hypertension. 7. Congestive heart failure, compensated. 8. Peripheral vascular disease. 9. Abdominal aortic aneurysm. 10. Respiratory insufficiency, on O2 at night. 11. Anticoagulation on Coumadin. PLAN: The patient will have a comprehensive program of inpatient rehabilitation with goal of maximizing level of functional independence, prior to discharge home with family and home care. The patient will have PT, OT 90 minutes per day each discipline, 5 days a week for 14 days with the above goals in mind. Please see post-admission physician evaluation, which is separate document for details of plan of care. Speech therapy to do cognitive assessment and treat as indicated. Rehabilitation nursing assist with bowel, bladder, skin, wound care, medication administration, pain management and social services designee to assist with discharge planning, community reentry. Follow up with hospital service and Dr. Ortiz as per their schedule. Monitor INR and adjust Coumadin as appropriate. Respiratory therapy to assist with O2 administration, monitoring O2 sats ESTIMATED LENGTH OF STAY: 14 days. PROGNOSIS: Rehab prognosis appears good for goal of discharging home with family and home health care, modified independent to supervision for ADLs and mobility skills. DIET: Regular. CODE STATUS: Full code. Job ID: [id number] DocumentID: [id number] Dictated Date: 05/14/2018 12:42:29 Biscuit Machine Operator Date: 05/14/2018 13:19:32 Dictated By: MARYBEL ROSARIO MD MTDD
--- NOTE | 2018-05-14 14:42 | Occupational Ther Daily Note ---
OT Current Status-Daily Note Subjective Pt alert, sitting in w/c. Pt agrees to therapy. Mental Status/Objective Patient Orientation: Person, Place, Time, Situation Functional [place] Measure 0=Not Assessed/NA 4=Minimal Assistance 1=Total Assistance 5=Supervision or Setup 2=Maximal Assistance 6=Modified [place] 3=Moderate Assistance 7=Complete [place] Attachments: IV, Oxygen ADL-Treatment Functional [place] Measure 0=Not Assessed/NA 4=Minimal Assistance 1=Total Assistance 5=Supervision or Setup 2=Maximal Assistance 6=Modified [place] 3=Moderate Assistance 7=Complete IndependenceIRFPAI Quality Coding Scale 6 Independent with activity with or without an assistive device 5 Patient requires set up or clean up by helper. Patient completes activity by themselves 4 Supervision or touching assist (CGA). [place] provide cues , steadying assist 3 The helper provides less than half the effort to complete the activity 2 The helper provides more than half the effort to complete the activity 1 Dependent. The helper does all the effort to complete an activity 7 Patient refused to complete or attempt activity 9 The patient did not perform the activity before the current illness or injury 88 Not attempted due to Medical conditions or safety concerns Grooming (FIM): 5 (Pt completed at w/c level.) Bathing (FIM): 3 (Mod A, cleansing LE, pt unable to reach LE due to hip precautions. MCGHEE will introduce long handles sponge needed for LE cleaning. ) Bathing Location: L Arm, R Arm, L Upper Leg, R Upper Leg, Chest, Abdomen, Perineal Area Shower/Bathe Self (QC): 3 Upper Body (FIM): 5 (SBA, pt able to don/doff clothing at w/c level. ) Upper Body Dressing (QC): 4 Lower Body Dressing (FIM): 2 (Due to hip precautions pt will need LE dressing equipment. Max A to complete. ) Lower Body Dressing (QC): 2 On/Off Footwear (QC): 2 Toileting (FIM): 2 (Max A, assist required for cleansing buttocks and manipulating clothing. ) Toileting Hygiene (QC): 2 Transfers (B, C, W/C) (FIM): 3 (Mod A, assist with sit to stand. ) Toilet/Commode Transfer (FIM): 3 (Mod A, with sit to stand. BSC placed over toilet. ) Toilet Transfer (QC): 3 Education OT Patient Education: Use of adapted equipment Teaching Methods: Demonstration, Discussion Response to Teaching: Verbalize Understanding, Reinforcement Needed OT Short Term Goals Short Term Goals Time Frame: May 21, 2018 Grooming(FIM): 6 Toilet/Commode Transfer(FIM): 5 Additional Short Term Goals: 1-Demonstrate ADL Tasks, 2-Verbalize Understanding , 3-ImproveStrength/Rick 1=Demonstrate adherence to instructed precautions during ADL tasks. 2=Patient will verbalize/demonstrate understanding of assistive devices/ modifications for ADL. 3=Patient will improve strength/tolerance for activity to enable patient to perform ADL's. OT Assisted Goals Ballast Regulator Operator Goals Time Frame: Jun 01, 2018 Eating (FIM): 7 (no dentures) Eating (QC): 6 Groomin Oral Hygiene (QC): 6 Bathing(FIM): 6 Shower/Bathe Self (QC): 6 Upper Body Dressing(FIM): 6 Upper Body Dressing (QC): 6 Lower Body Dressing(FIM): 6 Lower Body Dressing (QC): 6 On/Off Footwear (QC): 6 Toileting(FIM): 6 Toileting Hygiene (QC): 6 Toilet/Commode Transfer(FIM): 6 Toilet/Commode Transfer (QC): 6 Shower Transfer(FIM): 5 Additional Goals: 1-Demonstrate ADL Tasks, 2-Verbalize Understanding, 3- ImproveStrength/Rick 1=Demonstrate adherence to instructed precautions during ADL tasks. 2=Patient will verbalize/demonstrate understanding of assistive devices/ modifications for ADL. 3=Patient will improve strength/tolerance for activity to enable patient to perform ADL's. OT Education/Plan Problem List/Assessment Pt would benefit from skilled OT to increase her independence in basic self care to allow her to safely return home Discharge Recommendations Plan/Recommendations: Continue POC Treatment Plan/Plan of Care Patient would benefit from OT for education, treatment and training to promote independence in ADL's, mobility, safety and/or upper extremity function for ADL' s. Plan of Care: ADL Retraining, Functional Mobility, Group Exercise/Act as Ind ( education, exercise, activity tolerance, funct mobility, socialization), UE Funct Exercise/Act, UE Neuromus Re-Ed/Coord Treatment Duration: Jun 01, 2018 Frequency: At least 5 of 7 days/Wk (IRF) Estimated Hrs Per Day: 1.5 hours per day Agreement: Yes Rehab Potential: Fair Time/GCodes Start Time: 13:30 Stop Time: 14:30 Total Time Billed (hr/min): 60 Billed Treatment Time 1 visit- ADL 4 (60 min) HARDIK NUNEZ May 14, 2018 14:41
--- NOTE | 2018-05-14 14:50 | ST Cognitive Linguistic Eval ---
Speech Evaluation-General Medical Diagnosis right hip fracture Onset Date: May 10, 2018 Therapy Diagnosis Therapy Diagnosis: Cognition Precautions Precautions/Isolations: Fall Prevention, Standard Precautions Referral Referring Physician: Dr. Cota Reason for Referral: Evaluation/Treatment Medical History Pertinent Medical History: Atrial Fib, Arthritis, CAD, Heart Failure, HTN, Hypothroidism, OA, Renal Insufficiency Reviewed History: Yes Social History Current Living Status: Alone Speech PLF-Current Status Prior Level of Function Independent/working PT Subjective Pt up in chair...pleasant and cooperative. Pain Numeric Pain Scale: 0-No Pain Language Eval: Auditory Follows 1-Step Commands: Functional Follows Complex Directions: Functional Follows General Conversations: Functional Language Eval: Verbal Language Completes Spontaneous Greeting: Functional Produces Auto, Serial Info: Functional Word Finding: Functional Requests Basic Needs: Functional States Basic Personal Info: Functional Expresses Complex Ideas: Functional Language Evaluation: Reading NT Cognitive Patient Orientation Oriented x 3 Objective Cognitive Domain Attention: WNL Memory: WNL Problem Solving: Functional Objective Results [facility] Cognitive/Communication Screen was administered to assess cognitive- linguistic functioning. Results are as follows: Memory - 3 word recall was 3/3 for immediate, delayed and remotely delayed. Sequencing - 4/4 correct Problem Solving - Simple 4/4 correct; Abstract 1/2correct; Comparisons 4/5 correct Speech/language WNL Oral Motor/Speech Production WNL Impression Functional cognitive-linguistic skills. Communication/Social Cognition Comprehension: 7 Expression: 7 Social Interaction: 7 Problem Solvin Memory: 7 Speech Patient Assess Expression of Ideas/Wants: Expression (4) Understanding Verbal Content: Understands (4) Brief Interview-Mental Status: Yes Repetition of Three Words: Three (3) Temporal Orientation: Year: Correct (3) Temporal Orientation: Month: Accurate within 5 days(2) Temporal Orientation: Day: Correct (1) Recall : Wear to say "Sock": Yes, no cue required (2) Recall : Color: Yes, no cue required (2) Recall : Bed: Yes, no cue required (2) Speech Short Term Goals Short Term Goals Short Term Goals no STGs established as skilled ST not indicated. Speech Correction Goals Foreign Service Teacher Goals no LTGs established as pt does not require skilled ST Speech-Plan Patient/Family Goals Patient/Family Goals: to return home. Treatment Plan Speech Therapy Treatment Plan: Discontinue ST no skilled ST indicated Frequency: Modified Program (IRF) (0) Estimated Hrs Per Day: Other (0) Rehab Potential: Good Pt/Family Agrees to Plan: Yes Safety Risks/Education Teaching Recipient: Patient Teaching Methods: Discussion Response to Teaching: Verbalize Understanding Time Speech Therapy Time In: 11:45 Speech Therapy Time Out: 12:10 Total Billed Time: 25 Billed Treatment Time 1, SPSNDCOMROEL [place] May 14, 2018 14:50
[2018-05-14] MEDS: HYDROcodone/APAP 5 MG/325 MG (LORTAB) TAB PO PRN ×2 (14:54→21:30)
--- NOTE | 2018-05-14 15:03 | Physical Therapy Daily Note ---
PT Daily Note-Current Subjective pt in w/c pre tx, agrees to PT, pain 5/10 R hip Appearance pt in bed post tx, w/ phone, call light, tray, all needs met, nurse notified of pt request for pain pill, pillows between legs and reminded patient of hip precautions Mental Status Patient Orientation: Person, Place, Time Attachments: Oxygen (3L) Transfers Functional [place] Measure 0=Not Assessed/NA 4=Minimal Assistance 1=Total Assistance 5=Supervision or Setup 2=Maximal Assistance 6=Modified [place] 3=Moderate Assistance 7=Complete IndependenceIRFPAI Quality Coding Scale 6 Independent with activity with or without an assistive device 5 Patient requires set up or clean up by helper. Patient completes activity by themselves 4 Supervision or touching assist (CGA). [place] provide cues , steadying assist 3 The helper provides less than half the effort to complete the activity 2 The helper provides more than half the effort to complete the activity 1 Dependent. The helper does all the effort to complete an activity 7 Patient refused to complete or attempt activity 9 The patient did not perform the activity before the current illness or injury 88 Not attempted due to Medical conditions or safety concerns Transfers (B, C, W/C) (FIM): 4 Supine to/from Sit: 4 Sit to/from Stand: 4 Bed to/from Chair: 4 pt [place] for all transfers, requires cues for pushing off chair during sit<-> stand, bed<->chair requires cues for positioning and foot placement, sit-> supine pt requires assistance w/ getting RLE into bed Weight Bearing Right Lower Extremity: Right Weight Bearing/Tolerated Left Lower Extremity: Left Full Weight Bearing Exercises Seated Therapy Exercises: Ankle pumps, Long arc quads, Hip flexion (L only) Seated Reps: 20 Treatments functional strengthening Assessment Current Status: Fair Progress pt very SOB even at rest, but improved activity tolerance PT Short Term Goals Short Term Goals Time Frame: May 14, 2018 Wheelchair Distance: 150' PT Fdc Goals It Program Manager Goals PT It Program Manager Goals Time Frame: Jun 01, 2018 Transfers (B,C,W/C) (FIM): 6 Sit to Lying (QC): 6 Lying-Sitting on Side/Bed(QC): 6 Sit to Stand (QC): 6 Rollin Roll Left to Right (QC): 6 Chair/[id number] Xfer(QC): 6 Car Transfer (QC): 6 Does the Patient Walk: Yes Gait (FIM): 6 Gait distance (FIM): 3=150 ft Distance: 200' Walk 10 feet (QC): 6 Walk 10ft-Uneven Surface(QC): 6 Walk 50ft with 2 Turns (QC): 6 Walk 150 ft (QC): 6 Gait Level of Assist: 6 Gait Assistive Device: FWW Stairs (FIM): 5 # of Steps: 8 1 Step (curb) (QC): 5 4 Steps (QC): 5 12 Steps (QC): 9 Stairs Level Of Assist: 5 Picking up an Object (QC): 5 PT Plan Problem List Problem List: Activity Tolerance, Functional Strength, Safety, Balance, Gait, Transfer, Bed Mobility, ROM Treatment/Plan Treatment Plan: Continue Plan of Care Treatment Plan: Bed Mobility, Education, Functional Activity Rick, Functional Strength, Group Therapy, Gait, Safety, Therapeutic Exercise, Transfers Treatment Duration: Jun 01, 2018 Frequency: At least 5 of 7 days/Wk (IRF) Estimated Hrs Per Day: 1.5 hours per day Patient and/or Family Agrees t: Yes Safety Risks/Education Patient Education: Gait Training, Transfer Techniques, Reviewed Precautions, Correct Positioning, W/C Management, Safety Issues Teaching Recipient: Patient Teaching Methods: Demonstration, Discussion Response to Teaching: Reinforcement Needed Time/GCodes Time In: 1430 Time Out: 1445 Total Billed Treatment Time: 15 Total Billed Treatment 1 visit EX Janae' DARWIN WARD PT May 14, 2018 15:03
[2018-05-14 15:44] VITALS: BP 116/69
[2018-05-14] MEDS: KCL 10 MEQ TAB (MICRO K) PO SCH (17:17)
[2018-05-14] MEDS: FUROSEMIDE 40 MG (LASIX) TAB PO SCH (17:17)
[2018-05-14] MEDS: warFARin 1 MG (COUMADIN) TAB PO SCH (17:17)
--- NOTE | 2018-05-14 20:31 | PM&R Post Admission Assessment ---
Post Admission Physician Asses Date seen by provider: May 14, 2018 Time seen by provider: 14:00 The preadmission screen agrees with the post admission assessment that the patient is a good candidate for inpatient rehabilitation. The patient will have a comprehensive program of inpatient rehabilitation with a goal of maximizing level of functional independence prior to discharge home with HHC and family. The patient will have PT/OT ninety minutes per day, each discipline, five days a week for 14 days for gait, strengthening, conditioning, balance, ADLs, any patient/family/caregiver training as necessary. Speech therapy to do cognitive assessment and treat as indicated. Rehabilitation nursing to assist with bowel, bladder, skin, wound care, medication administration, pain management. Gaming Worker to assist with discharge planning, community reentry. SCD's and coumadin for DVT prophylaxis. She appears to be well motivated to participate in three hours of therapy a day. She should be able to tolerate three hours of therapy a day from a medical and surgical standpoint. She should benefit from the three hours of therapy a day. She has a reasonable discharge plan, reasonable discharge rehabilitation goals and a supportive family. She has various comorbidities that need to be closely monitored with medications and treatments adjusted on a daily basis as needed. These include: Postop anemia CAD Hx of AVR MV stenosis HTN CHF PVD AAA REsp insuff on 02 at HS Anticoagulation on Coumadin Barriers to discharge for this patient who had been independent prior to this are for her to be modified independent to supervision for ADLs and mobility skills prior to discharge home with family and HHC, so as to lessen the burden of the caregivers. Risks for this patient include: 1. Fall 2. Fracture 3. DVT 4. Pulmonary embolism 5. Wound infection 6. Skin breakdown 7. Contractures 8. Poorly controlled pain 9. Urinary retention 10. UTI 11. Respiratory infection 12. Aspiration 13,Sub or supratherapeutic INR 14.Angina Estimated Length of Stay: 14 days Prognosis: Rehab prognosis appears good for goal of discharge home with family and HHC modified independent to supervision for ADLs and mobility skills. General: Alert, Oriented X3, Cooperative, No Acute Distress HEENT: Atraumatic, PERRLA, EOMI, Mucous Memb Moist/[place], Other (02 by N/C in place) Neck: Supple, No JVD Lungs: Clear to Auscultation Heart: Regular Rate Abdomen: Normal Bowel Sounds, Soft, No Tenderness Extremities: Other (trace edema rt ankle) Neuro: Sensation Intact, Other (Strength LLE 3+/5 RLE 3-/5 Upper limb strength 4/5) Psych/Mental Status: Mental Status NL MARYBEL ROSARIO MD May 14, 2018 20:31
[2018-05-14] MEDS: SACUBITRIL/VALSARTAN 24/26 MG (ENTRESTO) TABLET PO SCH (21:29)
[2018-05-14] MEDS: MEXILETINE 150 MG (MEXITIL) CAPSULE PO SCH (21:29)
[2018-05-14] MEDS: SENNOSIDES 8.6 MG (SENOKOT) TAB PO SCH (21:30)
[2018-05-14] MEDS: MELATONIN 3 MG TABLET PO PRN (21:30)
[2018-05-14] MEDS: rOPINIRole 0.25 MG (REQUIP) TAB PO PRN (23:38)
[2018-05-15] MEDS: HYDROcodone/APAP 5 MG/325 MG (LORTAB) TAB PO PRN ×5 (03:06→21:27)
[2018-05-15 05:41] VITALS: BP 101/55
[2018-05-15 06:06] LABS: HEMOGLOBIN 7.9 G/DL (11.5-16.0); MEAN PLATELET VOLUME 10.9 FL (7.4-10.4); RED BLOOD COUNT 2.44 10^6/uL (4.35-5.85); RED CELL DISTRIBUTION WIDTH 15.8 % (10.0-14.5); WHITE BLOOD COUNT 5.4 10^3/uL (4.3-11.0)
[2018-05-15 06:18] LABS: INR 2.5 (0.8-1.4); PROTHROMBIN TIME PATIENT 27.1 SEC (12.2-14.7)
[2018-05-15] MEDS: FUROSEMIDE 40 MG (LASIX) TAB PO SCH ×2 (06:40→16:51)
[2018-05-15] MEDS: LEVOTHYROXINE 100 MCG (LEVOTHROID) TAB PO SCH (06:40)
[2018-05-15] MEDS: MULTIVIT W/MINERALS TAB (THERAGRAN M) PO SCH (06:40)
[2018-05-15] MEDS: PANTOPRAZOLE 40 MG (PROTONIX) TAB PO SCH (06:40)
[2018-05-15] MEDS: KCL 10 MEQ TAB (MICRO K) PO SCH ×2 (06:40→16:51)
--- NOTE | 2018-05-15 07:43 | Progress Note-Standard ---
Standard Progress Note Progress Notes/Assess & Plan Date Seen by Provider: May 15, 2018 Time Seen by Provider: 07:41 Progress/Assessment & Plan No complaints Vital Signs Date Time Temp Pulse Resp B/P (MAP) Pulse Ox O2 Delivery O2 Flow Rate FiO2 05/15/18 05:41 99.1 85 16 101/55 (70) 98 Nasal Cannula 7.00 05/14/18 21:00 100 Nasal Cannula 3.00 05/14/18 15:44 99.4 91 14 116/69 (85) 100 Nasal Cannula 3.00 05/14/18 15:12 Nasal Cannula 3.00 05/14/18 14:59 80 98 Nasal Cannula 3.00 05/14/18 14:52 Nasal Cannula 3.00 05/14/18 12:09 98.6 85 18 108/56 (73) 100 Nasal Cannula 3.00 I & O 05/15/18 07:00 Intake Total 940 ml Output Total 600 ml Balance 340 ml Laboratory Tests Test 05/15/18 05:50 Range/Units White Blood Count 5.4 4.3-11.0 10^3/uL Red Blood Count 2.44 L 4.35-5.85 10^6/uL Hemoglobin 7.9 L 11.5-16.0 G/DL Hematocrit 25 L 35-52 % Mean Corpuscular Volume 101 H 80-99 FL Mean Corpuscular Hemoglobin 32 25-34 PG Mean Corpuscular Hemoglobin Concent 32 32-36 G/DL Red Cell Distribution Width 15.8 H 10.0-14.5 % Platelet Count 107 L 130-400 10^3/uL Mean Platelet Volume 10.9 H 7.4-10.4 FL Prothrombin Time 27.1 H 12.2-14.7 SEC INR Comment 2.5 H 0.8-1.4 R hip dressing intact. Dry, but sanguinous DC on clothing no calf tenderness. Neg Jennifer's s/p R hip bipolar continue PT/OT ARCENIO GODOY MD May 15, 2018 07:43
--- NOTE | 2018-05-15 07:59 | Cardiology Progress Note ---
Subjective Date Seen by Provider: May 15, 2018 Time Seen by Provider: 07:54 Subjective/Events-last exam Patient is in bed, feeling better, no new complaint Review of Systems General: No Chills, No Night Sweats, No Fatigue, No Malaise, No Appetite, No Other HEENT: No Head Aches, No Visual Changes, No Eye Pain, No Ear Pain, No Dysphasia , No Sinus Congestion, No Post Nasal Drip, No Sore Throat, No Other Pulmonary: Dyspnea; No Cough, No Pleuritic Chest Pain, No Other Cardiovascular: No: Chest Pain, Palpitations, Orthopnea, Paroxysmal Noc. Dyspnea, Edema, Lt Headedness, Other Objective-Cardiology Exam Last Set of Vital Signs Vital Signs 05/15/18 05:41 Temp 99.1 Pulse 85 Resp 16 B/P (MAP) 101/55 (70) Pulse Ox 98 O2 Delivery Nasal Cannula O2 Flow Rate 7.00 Capillary Refill : Less Than 3 Seconds I&O Intake and Output 05/15/18 00:00 Intake Total 740 ml Output Total 300 ml Balance 440 ml Intake Oral 740 ml Output Urine Total 300 ml Bladder Scan Volume Amount 219 ml # Voids 1 General: Alert, Oriented X3, Cooperative, No Acute Distress HEENT: Atraumatic, PERRLA, EOMI, Mucous Memb Moist/[place], Other (02 by N/C in place) Neck: Supple, No JVD Lungs: Clear to Auscultation Heart: Regular Rate, Normal S1, Other (Systolic murmur at left sternal border) Abdomen: Normal Bowel Sounds, Soft, No Tenderness Extremities: No Clubbing, Other (trace edema rt ankle) Neuro: Normal Speech, Sensation Intact, Other (Strength LLE 3+/5 RLE 3-/5 Upper limb strength 4/5) Psych/Mental Status: Mental Status NL Results Lab Laboratory Tests 05/15/18 05:50 A/P-Cardiology Admission Diagnosis Hip fracture Coronary artery disease Aortic valve stenosis Mitral regurgitation Assessment/Plan Right hip fracture, status post surgical repair done on May 11, 2018, recovering slowly, doing well. Continue to monitor Chest pain nonspecific etiology, no further episodes were reported. Continue to monitor Anemia, slightly worse, continue to monitor History of mild coronary artery disease, nonobstructive disease by cardiac catheterization in September 2014, stress test in December 2016 showing no ischemia, continue to monitor closely Congestive heart failure, chronic left ventricular systolic dysfunction, nonischemic cardiomyopathy, secondary to valvular heart disease. Has history of ICD implanted DEATH [employer]VE[employer] CODER-D done in August 2012. Severe mitral valve stenosis, rheumatic valve, history of severe mitral regurgitation and pulmonary hypertension with estimated PA pressure of 55 mmHg, severely dilated left atrium. She was seen Dr. Page at in the past and she was considered high risk for valve surgery. She is not a candidate for mitral clip surgery due to her severe mitral stenosis, patient was referred for TMVR with Dr. Davila at , she decided to continue with conservative management and will consider the procedure if she become more symptomatic. 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 Last echocardiogram was done in April 2018 and the valve was functioning normally Peripheral vascular disease, patient has venous insufficiency on the right side that required ablation,peripheral angiogram May 2017, intervention to the anterior tibial artery, the wound has healed then developed a new ulcer after a trauma. Did balloon angioplasty to the right anterior tibial artery proximal portion has significant improvement the distal portion is occluded and did not improve, the posterior tibial artery and peroneal arteries were occluded with no collaterals in that area. The right SFA has multiple segment of moderate to severe stenosis, balloon angioplasty to the mid SFA with good results. Abdominal aorta has moderate disease, the left SFA has mild to moderate disease down to the trifurcation. We'll continue with medical therapy, the ulcer on her foot is completely healed. Continue to monitor Carotid stenosis, continue to monitor, followed by heart and vascular care. 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 followed and monitored by heart and vascular care. Hypertension, restart home medications and monitor Hyperlipidemia, continue on current medication monitor lipids Clinical Quality Measures DVT/VTE Risk/Contraindication: Risk Factor Score Per Nursin RFS Level Per Nursing on Admit: 4+=Very High PRANEETH SHUKLA MD May 15, 2018 07:59
--- NOTE | 2018-05-15 08:50 | PM & R (SOAP) Progress Note ---
Subjective This was a face to face visit with the patient. Date Seen by Provider: May 15, 2018 Time Seen by Provider: 08:10 Subjective/Events-last exam Patient was seen in her room this AM Case discussed with RN and DR Parker Patient somewhat deprssed due to her [place] [facility] today,Reassured Patient with Contact precuations due to HX of ESBL.Patient Mod assist for transfers Review of Systems Musculoskeletal: leg pain Neurological: Weakness Objective Physician Exam Last Set of Vital Signs Vital Signs Date Time Temp Pulse Resp B/P (MAP) Pulse Ox O2 Delivery O2 Flow Rate FiO2 05/15/18 08:28 Nasal Cannula 3.00 05/15/18 05:41 99.1 85 16 101/55 (70) 98 Capillary Refill : Less Than 3 Seconds I&O Intake and Output 05/15/18 00:00 Intake Total 740 ml Output Total 300 ml Balance 440 ml Intake Oral 740 ml Output Urine Total 300 ml Bladder Scan Volume Amount 219 ml # Voids 1 General: Alert, Oriented X3, Cooperative, No Acute Distress HEENT: Atraumatic, PERRLA, EOMI, Mucous Memb Moist/[place], Other (02 by N/C in place) Neck: Supple, No JVD Lungs: Clear to Auscultation Heart: Regular Rate, Normal S1, Other (Systolic murmur at left sternal border) Abdomen: Normal Bowel Sounds, Soft, No Tenderness Extremities: No Clubbing, Other (trace edema rt ankle) Neuro: Normal Speech, Sensation Intact, Other (Strength LLE 3+/5 RLE 3-/5 Upper limb strength 4/5) Psych/Mental Status: Mental Status NL Results Lab Data Laboratory Tests 05/15/18 05:50: White Blood Count 5.4, Red Blood Count 2.44L, Hemoglobin 7.9L, Hematocrit 25L, Mean Corpuscular Volume 101H, Mean Corpuscular Hemoglobin 32, Mean Corpuscular Hemoglobin Concent 32, Red Cell Distribution Width 15.8H, Platelet Count 107L, Mean Platelet Volume 10.9H, Prothrombin Time 27.1H, INR Comment 2.5H Assessment/Plan Assessment and Plan RT fem neck fracture s/p RT HIP Biploar replacement WBAT DR Ortiz Postop anemia HGB 7.9 replace Severe MVstenosis AVR chronically anticoagulated and therapeutic Mild CAD Nonischemic cariomyopathy cardiology following S/P ICD PVD AAA Resp insuff on 02 at night HTN Plan Continue PT/OT Team Conference later today-See report for full functional update and POC and ELOS Patient agreeable to not attending [facility] today due to her own medical issues F/U with Hospitalist service and cardiology as per thiwyatt schedule Co-Morbidities that are continuing to impact the rehab process: (include details ) MARYBEL ROSARIO MD May 15, 2018 08:50
[2018-05-15] MEDS: MEXILETINE 150 MG (MEXITIL) CAPSULE PO SCH ×2 (09:29→21:27)
[2018-05-15] MEDS: meTOproloL SUCCINATE 50 MG (TOPROL XL) TAB PO SCH (09:30)
[2018-05-15] MEDS: CLOPIDOGREL 75 MG (PLAVIX) TABLET PO SCH (09:30)
[2018-05-15] MEDS: LORATADINE (CLARITIN) 10 MG TAB PO SCH (09:30)
[2018-05-15] MEDS: ISOSORBIDE MONONITRATE 30 MG (IMDUR) TAB PO SCH (09:30)
[2018-05-15] MEDS: DIGOXIN 0.125 MG (LANOXIN) TAB PO SCH (09:30)
[2018-05-15] MEDS: SACUBITRIL/VALSARTAN 24/26 MG (ENTRESTO) TABLET PO SCH ×2 (09:31→21:27)
[2018-05-15] MEDS: SENNOSIDES 8.6 MG (SENOKOT) TAB PO SCH ×3 (09:31→21:26)
--- NOTE | 2018-05-15 10:45 | Consultation-Hospitalist ---
ROBYN CERDA MEDICAL STUDENT 05/15/18 1045: HPI History of Present Illness: HPI/Chief Complaint Ms. Mcfarland is a 82 year old female with an extensive cardiovascular history initially admitted for right femoral neck fracture on 05/10 s/p repair with transfusion of 2 untis pRBCs on 05/11 now in inpatient rehab to assist with recovery. This happened after falling at home, where she lives by herself. 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 Of note, she has lost ~65 lbs in the past 6 months unintentionally which she attributes to her CHF. Her PCP is Dr. Prabhakar and she follows with Dr. Parker for her cardiac problems. Since the surgery, she has had adjustments to her pain regimen with improvement in her pain control in her right leg. She states she now has occasional throbbing pain from that hip down her leg she rates a 4/10. She also notes having fatigue and difficulty tolerating some therapy from this. She is having regular bowel movements, urinating without difficulty, and eating well. Source: patient Exam Limitations: no limitations Date Seen 05/15/18 Attending Physician Lazaro Cota MD PCP Jake Prabhakar DO Referring Physician Lazaro Cota MD Date of Admission May 14, 2018 at 10:30 Home Medications & Allergies Home Medications Reviewed patient Home Medication Reconciliation performed by pharmacy medication reconciliations animal husbandry technician and/or nursing. Patients Allergies have been reviewed. Allergies Allergies Coded Allergies NKANo Known Allergies (Verified Allergy, Unknown, 11/14/05) Past [id number] Hx Patient Social History Number of Children: 3 Number of living children: 3 Living Status: Alone in one story house Employed/Student: part-time employed Alcohol Use: Denies Use Recreational Drug Use: No Smoking Status: Never a Smoker 2nd Hand Smoke Exposure: Yes Physical Abuse Screen: No Sexual Abuse: No Recent Foreign Travel: No Contact w/other who traveled: No Recent Hopitalizations: Yes Recent Infectious Disease Expo: No Immunizations Up To Date Tetanus Booster (TDap): Unknown Pediatric: Yes Date of Pneumonia Vaccine: May 31, 2015 Date of Influenza Vaccine: Jul 04, 2017 Seasonal Allergies Seasonal Allergies: Yes ("Summertime") Past Medical History Surgeries: Abdominal, Cardiac, Section, Defibrillator, Eye Surgery, Gallbladder, Pacemaker, Valve Replacement Currently Using CPAP: No Currently Using BIPAP: No Cardiac: Atrial Fibrillation, Cardiomyopathy, Chronic Edema/Swelling, Coronary Artery Disease, Heart Murmur, High Cholesterol, Hypertension, Peripheral Vascular, Valvular Heart Disease Reproductive: No Sexually Transmitted Disease: No HIV/AIDS: No Gastrointestinal: Gall Bladder Disease Musculoskeletal: Arthritis Endocrine: Hypothyroidsim HEENT: Cataract Loss of Vision: Denies Hearing Impairment: Denies Did You Recieve Any Treatments: No History of Blood Disorders: No Adverse Reaction to Blood Burch: No Family History Family history: Diabetes mellitus 19 MOTHER Heart disease 19 MOTHER History of - respiratory disease 19 FATHER (PNEUMONIA- IN HIS 20'S) Myocardial infarction 19 MOTHER No Family History of: Abdominal aortic aneurysm [place]'s disease Alcoholism Aphasia Cancer Cancer of colon Cataract Chest pain Congenital heart disease Congestive heart failure Cystic fibrosis Dementia Dysphagia Family history: Allergy Family history: Alzheimer's disease Family history: Arthritis Family history: Asthma Family history: Breast disease Family history: Cardiovascular disease Family history: Coronary thrombosis Family history: Gastrointestinal disease Family history: Glaucoma Family history: Hypertension Family history: Osteoporosis Family history: Thyroid disorder Headache Hearing loss Hereditary disease History of - anemia History of - disorder History of drug abuse Human immunodeficiency virus (HIV) seropositivity Hypercholesterolemia Infertile Kidney disease Parkinson's disease Prostate cancer Psychotic disorder Seizure disorder Stroke Tuberculosis Visual impairment No Pertinent Family Hx Review of Systems Constitutional: No chills, No fever; weakness, weight loss (65 lb in 6 months) EENTM: No nose congestion, No throat pain Respiratory: No cough; short of breath Cardiovascular: No chest pain Gastrointestinal: no symptoms reported Genitourinary: no symptoms reported Musculoskeletal: see HPI Skin: no symptoms reported Psychiatric/Neurological: No Symptoms Reported Physical Exam Physical Exam Vital Signs Vital Signs - First Documented 05/14/18 12:09 Temp 98.6 Pulse 85 Resp 18 B/P (MAP) 108/56 (73) Pulse Ox 100 O2 Delivery Nasal Cannula O2 Flow Rate 3.00 Capillary Refill : Less Than 3 Seconds Height, Weight, BMI Height: 5'5.00" Weight: 145lbs. 2.0oz. 65.250807va; 24.2 BMI Method:Stated General Appearance: No Apparent Distress, WD/WN Eyes: Right Eye PERRL Respiratory: Chest Non Tender, No Accessory Muscle Use, No Respiratory Distress , Crackles (Few crackles at lung bases bilaterally) Cardiovascular: Regular Rate, Rhythm, Other (Loud clicking S2) Gastrointestinal: Normal Bowel Sounds Extremity: Pedal Edema Neurologic/Psychiatric: Oriented x3 Skin: Normal Color, Warm/Dry Results Results/Procedures Labs Laboratory Tests 05/15/18 05:50 Patient resulted labs reviewed. Assessment/Plan Assessment and Plan Assess & Plan/Chief Complaint Hip Fracture -Continue PT/OT -Pain well-controlled, will continue to monitor Anemia -2 units pRBCs transfused after surgery -Hgb 7.9 today with symptoms -Will continue to monitor and transfuse if it continues to drop Crackles on Exam -Encouraged increasing IS and Aerobika use CHF/Afib/Valvular disease` -Dr. Parker consulted Dispo: Remain admitted for rehab Diagnosis/Problems Diagnosis/Problems (1) Abdominal aortic aneurysm Status: Chronic (2) Mixed hyperlipidemia Status: Chronic (3) Mitral stenosis Status: Chronic (4) Hypothyroidism Status: Chronic (5) Atrial fibrillation, controlled Status: Chronic (6) PAD (peripheral artery disease) Status: Chronic (7) CHF (congestive heart failure) Status: Chronic (8) HTN (hypertension) Status: Chronic (9) Chronic anemia Status: Acute (10) Aortic valve replaced Status: Chronic Clinical Quality Measures DVT/VTE Risk/Contraindication: Risk Factor Score Per Nursin RFS Level Per Nursing on Admit: 4+=Very High AURORA CIFUENTES DO 05/15/18 1133: HPI History of Present Illness: HPI/Chief Complaint CC: Debility following hip fracture HPI: This is an 82yoWF patient of Dr Prabhakar who 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 She has no concerns at this time except "fear of falling." I have reviewed her meds and recent hospital stay. Source: patient Exam Limitations: no limitations Date Seen 05/15/18 Referring Physician Cipriano Home Medications & Allergies Home Medications Reviewed Past Hefisuh-Shruya-Pqxvgf Hx Past Med/Social Hx: Reviewed Nursing Past Med/Soc Hx, Reviewed and Corrections made Patient Social History Marrital Status: single Employed/Student: part-time employed Past Medical History Surgeries: Abdominal, Cardiac, Section, Defibrillator, Eye Surgery, Gallbladder, Pacemaker, Valve Replacement Cardiac: Atrial Fibrillation, Cardiomyopathy, Coronary Artery Disease, Heart Murmur, High Cholesterol, Hypertension, Peripheral Vascular, Valvular Heart Disease Gastrointestinal: Gall Bladder Disease Musculoskeletal: Arthritis Endocrine: Hypothyroidsim HEENT: Cataract Hearing Impairment: Denies Family History Family history: Diabetes mellitus 19 MOTHER Heart disease 19 MOTHER History of - respiratory disease 19 FATHER (PNEUMONIA- IN HIS 20'S) Myocardial infarction 19 MOTHER No Family History of: Abdominal aortic aneurysm [place]'s disease Alcoholism Aphasia Cancer Cancer of colon Cataract Chest pain Congenital heart disease Congestive heart failure Cystic fibrosis Dementia Dysphagia Family history: Allergy Family history: Alzheimer's disease Family history: Arthritis Family history: Asthma Family history: Breast disease Family history: Cardiovascular disease Family history: Coronary thrombosis Family history: Gastrointestinal disease Family history: Glaucoma Family history: Hypertension Family history: Osteoporosis Family history: Thyroid disorder Headache Hearing loss Hereditary disease History of - anemia History of - disorder History of drug abuse Human immunodeficiency virus (HIV) seropositivity Hypercholesterolemia Infertile Kidney disease Parkinson's disease Prostate cancer Psychotic disorder Seizure disorder Stroke Tuberculosis Visual impairment Review of Systems Constitutional: malaise EENTM: no symptoms reported Respiratory: no symptoms reported Cardiovascular: no symptoms reported Gastrointestinal: no symptoms reported Genitourinary: no symptoms reported Musculoskeletal: see HPI, joint pain Skin: no symptoms reported Psychiatric/Neurological: No Symptoms Reported All Other Systems Reviewed Negative Unless Noted: Yes Physical Exam Physical Exam General Appearance: No Apparent Distress, WD/WN, Chronically ill, Thin Eyes: Bilateral Eye Normal Inspection, Bilateral Eye PERRL HEENT: PERRL/EOMI, TMs Normal, Normal ENT Inspection, Pharynx Normal Neck: Full Range of Motion, Normal Inspection, Non Tender, Supple, Carotid Bruit Respiratory: Chest Non Tender, Normal Breath Sounds, No Accessory Muscle Use, No Respiratory Distress, Decreased Breath Sounds (bases) Cardiovascular: Regular Rate, Rhythm, No Edema, No Gallop, No JVD, No Murmur, Normal Peripheral Pulses Gastrointestinal: Normal Bowel Sounds, No Organomegaly, No Pulsatile Mass, Non Tender, Soft Back: Normal Inspection, No CVA Tenderness, No Vertebral Tenderness Extremity: Normal Capillary Refill, Normal Inspection, Normal Range of Motion ( limited right leg), Non Tender, No Calf Tenderness, Pedal Edema Neurologic/Psychiatric: Alert, Oriented x3, No Motor/Sensory Deficits, Normal Mood/Affect Skin: Normal Color, Warm/Dry Lymphatic: No Adenopathy Assessment/Plan Assessment and Plan Assess & Plan/Chief Complaint Monitor hgb closely No indication for transfusion today IS use Diagnosis/Problems Diagnosis/Problems (1) Mitral stenosis Status: Chronic (2) Mixed hyperlipidemia Status: Chronic (3) Abdominal aortic aneurysm Status: Chronic (4) CHF (congestive heart failure) Status: Chronic (5) Hypothyroidism Status: Chronic (6) HTN (hypertension) Status: Chronic (7) PAD (peripheral artery disease) Status: Chronic (8) Chronic anemia Status: Acute (9) Atrial fibrillation, controlled Status: Chronic (10) Aortic valve replaced Status: Chronic (11) Debility Status: Acute (12) Advanced age Status: Chronic (13) Fall Status: Acute Qualifiers: Encounter type: sequela Qualified Codes: W19.XXXS - Unspecified fall, sequela (14) Closed right femoral fracture Status: Resolved ROBYN CERDA MEDICAL STUDENT May 15, 2018 10:45 AURORA CIFUENTES DO May 15, 2018 11:33
--- NOTE | 2018-05-15 11:47 | Occupational Ther Daily Note ---
OT Current Status-Daily Note Subjective Pt in bed, agrees to treatment. Pt reports 1/10 pain at rest and 3/10 pain with activity. Mental Status/Objective Functional [place] Measure 0=Not Assessed/NA 4=Minimal Assistance 1=Total Assistance 5=Supervision or Setup 2=Maximal Assistance 6=Modified [place] 3=Moderate Assistance 7=Complete [place] Attachments: Oxygen ADL-Treatment Pt declined shower this morning, but would like to change clothes. Supine to sit with assist for right LE and min assist with trunk. Skilled cues for technique. Pt sit to stand with minimal assistance. Gait to restroom with FWW, slow pace. Transfer to [facility] over toilet with minimal assistance. Pt able to complete toileting hygiene, but requires minimal assistance for balance during clothing management. Grooming tasks completed seated at sink. Pt washed hands and face and brushed teeth with SBA. Doff shirt with SBA. Don button up gown with set up. Pt doffed underwear and pants with minimal assistance using dressing stick. Required minimal assistance to start underwear and pants over feet using dressing stick. Increased time required. Stood with minimal assistance for pant hike. Doff socks with SBA using dressing stick. Donned socks with minimal assistance using sock aid. Pt fatigues with activity and requires occasional rest breaks during session. Transfer to chair with minimal assistance using FWW. Pt sitting in chair with needs met after session. Functional [place] Measure 0=Not Assessed/NA 4=Minimal Assistance 1=Total Assistance 5=Supervision or Setup 2=Maximal Assistance 6=Modified [place] 3=Moderate Assistance 7=Complete IndependenceIRFPAI Quality Coding Scale 6 Independent with activity with or without an assistive device 5 Patient requires set up or clean up by helper. Patient completes activity by themselves 4 Supervision or touching assist (CGA). [place] provide cues , steadying assist 3 The helper provides less than half the effort to complete the activity 2 The helper provides more than half the effort to complete the activity 1 Dependent. The helper does all the effort to complete an activity 7 Patient refused to complete or attempt activity 9 The patient did not perform the activity before the current illness or injury 88 Not attempted due to Medical conditions or safety concerns Grooming (FIM): 5 Upper Body (FIM): 5 Lower Body Dressing (FIM): 4 On/Off Footwear (QC): 3 Toileting (FIM): 3 Toilet/Commode Transfer (FIM): 4 Education OT Patient Education: Modified ADL techniques Teaching Recipient: Patient Teaching Methods: Demonstration, Discussion Response to Teaching: Return Demonstration, Reinforcement Needed OT Short Term Goals Short Term Goals Time Frame: May 21, 2018 Grooming(FIM): 6 Toilet/Commode Transfer(FIM): 5 Additional Short Term Goals: 1-Demonstrate ADL Tasks, 2-Verbalize Understanding , 3-ImproveStrength/Rick 1=Demonstrate adherence to instructed precautions during ADL tasks. 2=Patient will verbalize/demonstrate understanding of assistive devices/ modifications for ADL. 3=Patient will improve strength/tolerance for activity to enable patient to perform ADL's. OT Care Home Goals [place] Handle Bench Worker Goals Time Frame: Jun 01, 2018 Eating (FIM): 7 (no dentures) Eating (QC): 6 Groomin Oral Hygiene (QC): 6 Bathing(FIM): 6 Shower/Bathe Self (QC): 6 Upper Body Dressing(FIM): 6 Upper Body Dressing (QC): 6 Lower Body Dressing(FIM): 6 Lower Body Dressing (QC): 6 On/Off Footwear (QC): 6 Toileting(FIM): 6 Toileting Hygiene (QC): 6 Toilet/Commode Transfer(FIM): 6 Toilet/Commode Transfer (QC): 6 Shower Transfer(FIM): 5 Additional Goals: 1-Demonstrate ADL Tasks, 2-Verbalize Understanding, 3- ImproveStrength/Rick 1=Demonstrate adherence to instructed precautions during ADL tasks. 2=Patient will verbalize/demonstrate understanding of assistive devices/ modifications for ADL. 3=Patient will improve strength/tolerance for activity to enable patient to perform ADL's. OT Education/Plan Problem List/Assessment Pt would benefit from skilled OT to increase her independence in basic self care to allow her to safely return home Discharge Recommendations Plan/Recommendations: Continue POC Treatment Plan/Plan of Care Patient would benefit from OT for education, treatment and training to promote independence in ADL's, mobility, safety and/or upper extremity function for ADL' s. Plan of Care: ADL Retraining, Functional Mobility, Group Exercise/Act as Ind ( education, exercise, activity tolerance, funct mobility, socialization), UE Funct Exercise/Act, UE Neuromus Re-Ed/Coord Treatment Duration: Jun 01, 2018 Frequency: At least 5 of 7 days/Wk (IRF) Estimated Hrs Per Day: 1.5 hours per day Agreement: Yes Rehab Potential: Good Time/GCodes Start Time: 09:00 Stop Time: 10:00 Total Time Billed (hr/min): 60 Billed Treatment Time 1 visit, ADLx4(60minutes) KAN FLEMING OT May 15, 2018 11:47
--- NOTE | 2018-05-15 11:57 | Physical Therapy Daily Note ---
PT Daily Note-Current Subjective pt in bed pre tx, agrees to PT, pain 3/10 R hip, pt incision dressing changed by nurse upon entering therapy gym Appearance pt in bed post tx, w/ phone, call light, tray, all needs met, 2 pillows between legs for hip precautions Mental Status Patient Orientation: Person, Place, Time Attachments: Oxygen (3L) Transfers Functional [place] Measure 0=Not Assessed/NA 4=Minimal Assistance 1=Total Assistance 5=Supervision or Setup 2=Maximal Assistance 6=Modified [place] 3=Moderate Assistance 7=Complete IndependenceIRFPAI Quality Coding Scale 6 Independent with activity with or without an assistive device 5 Patient requires set up or clean up by helper. Patient completes activity by themselves 4 Supervision or touching assist (CGA). [place] provide cues , steadying assist 3 The helper provides less than half the effort to complete the activity 2 The helper provides more than half the effort to complete the activity 1 Dependent. The helper does all the effort to complete an activity 7 Patient refused to complete or attempt activity 9 The patient did not perform the activity before the current illness or injury 88 Not attempted due to Medical conditions or safety concerns Transfers (B, C, W/C) (FIM): 4 Scootin Rollin Supine to/from Sit: 4 Sit to/from Stand: 4 supine<->sit [place] w/ assistance getting RLE into/out of bed, sit<->stand CGA, pt does well reaching back/pushing off armrests, Weight Bearing Right Lower Extremity: Right Weight Bearing/Tolerated Left Lower Extremity: Left Full Weight Bearing Gait Training Does the Patient Walk?: Yes Gait (FIM): 2 Distance (FIM): 5=698-09 ft Distance: 60'x4 Gait Level of Assist: 4 Gait Persons Needed: 1 Gait Assistive Device: FWW pt ambulates to/from gym w/ FWW and CGA, antalgic gait w/ decreased stance time on RLE, pt cued for bearing more weight through RLE and getting more heel strike and foot flat, Exercises NuStep Minutes: 10 NuStep Workload: 3 Treatments gait training, endurance training Assessment Current Status: Fair Progress improved mobility and gait distance, pt does well responding to cues PT Short Term Goals Short Term Goals Time Frame: May 14, 2018 Wheelchair Distance: 150' PT Travel Occupational Therapist Goals Travel Occupational Therapist Goals PT Travel Occupational Therapist Goals Time Frame: Jun 01, 2018 Transfers (B,C,W/C) (FIM): 6 Sit to Lying (QC): 6 Lying-Sitting on Side/Bed(QC): 6 Sit to Stand (QC): 6 Rollin Roll Left to Right (QC): 6 Chair/Rwc-tp-Wkkfq Xfer(QC): 6 Car Transfer (QC): 6 Does the Patient Walk: Yes Gait (FIM): 6 Gait distance (FIM): 3=150 ft Distance: 200' Walk 10 feet (QC): 6 Walk 10ft-Uneven Surface(QC): 6 Walk 50ft with 2 Turns (QC): 6 Walk 150 ft (QC): 6 Gait Level of Assist: 6 Gait Assistive Device: FWW Stairs (FIM): 5 # of Steps: 8 1 Step (curb) (QC): 5 4 Steps (QC): 5 12 Steps (QC): 9 Stairs Level Of Assist: 5 Picking up an Object (QC): 5 PT Plan Problem List Problem List: Activity Tolerance, Functional Strength, Safety, Balance, Gait, Transfer, Bed Mobility, ROM Treatment/Plan Treatment Plan: Continue Plan of Care Treatment Plan: Bed Mobility, Education, Functional Activity Rick, Functional Strength, Group Therapy, Gait, Safety, Therapeutic Exercise, Transfers Treatment Duration: Jun 01, 2018 Frequency: At least 5 of 7 days/Wk (IRF) Estimated Hrs Per Day: 1.5 hours per day Patient and/or Family Agrees t: Yes Safety Risks/Education Patient Education: Gait Training, Transfer Techniques, Reviewed Precautions, Correct Positioning, Safety Issues Teaching Recipient: Patient Teaching Methods: Demonstration, Discussion Response to Teaching: Reinforcement Needed Time/GCodes Time In: 1100 Time Out: 1200 Total Billed Treatment Time: 60 Total Billed Treatment 1 visit GT 50' EX 10 DARWIN WRAD PT May 15, 2018 11:57
--- NOTE | 2018-05-15 14:01 | Occupational Ther Daily Note ---
OT Current Status-Daily Note Subjective Pt in bed, agrees to treatment. Pt reports 3/10 right hip pain. Mental Status/Objective Functional [place] Measure 0=Not Assessed/NA 4=Minimal Assistance 1=Total Assistance 5=Supervision or Setup 2=Maximal Assistance 6=Modified [place] 3=Moderate Assistance 7=Complete [place] ADL-Treatment Functional [place] Measure 0=Not Assessed/NA 4=Minimal Assistance 1=Total Assistance 5=Supervision or Setup 2=Maximal Assistance 6=Modified [place] 3=Moderate Assistance 7=Complete IndependenceIRFPAI Quality Coding Scale 6 Independent with activity with or without an assistive device 5 Patient requires set up or clean up by helper. Patient completes activity by themselves 4 Supervision or touching assist (CGA). [place] provide cues , steadying assist 3 The helper provides less than half the effort to complete the activity 2 The helper provides more than half the effort to complete the activity 1 Dependent. The helper does all the effort to complete an activity 7 Patient refused to complete or attempt activity 9 The patient did not perform the activity before the current illness or injury 88 Not attempted due to Medical conditions or safety concerns Other Treatment Pt supine to sit with minimal assistance for right LE. Sit to stand with minimal assistance. Pt performed gait to therapy gym with slow pace. One rest break taken secondary to fatigue. Increased time for mobility. Graded clothespins with bilateral hands to increase director of field coordination/pinch strength. Pt has mild difficulty with highest resistance clothespins, but is able to complete activity without assistance. Arm bike x5 minutes to increase overall activity tolerance needed for functional tasks. Pt completed task without resistance and with slow pace. Pt transferred to w/c. Care was transferred to PT at end of session. OT Short Term Goals Short Term Goals Time Frame: May 21, 2018 Grooming(FIM): 6 Toilet/Commode Transfer(FIM): 5 Additional Short Term Goals: 1-Demonstrate ADL Tasks, 2-Verbalize Understanding , 3-ImproveStrength/Rick 1=Demonstrate adherence to instructed precautions during ADL tasks. 2=Patient will verbalize/demonstrate understanding of assistive devices/ modifications for ADL. 3=Patient will improve strength/tolerance for activity to enable patient to perform ADL's. OT Property Worker Goals [facility]sp Goals Time Frame: Jun 01, 2018 Eating (FIM): 7 (no dentures) Eating (QC): 6 Groomin Oral Hygiene (QC): 6 Bathing(FIM): 6 Shower/Bathe Self (QC): 6 Upper Body Dressing(FIM): 6 Upper Body Dressing (QC): 6 Lower Body Dressing(FIM): 6 Lower Body Dressing (QC): 6 On/Off Footwear (QC): 6 Toileting(FIM): 6 Toileting Hygiene (QC): 6 Toilet/Commode Transfer(FIM): 6 Toilet/Commode Transfer (QC): 6 Shower Transfer(FIM): 5 Additional Goals: 1-Demonstrate ADL Tasks, 2-Verbalize Understanding, 3- ImproveStrength/Rick 1=Demonstrate adherence to instructed precautions during ADL tasks. 2=Patient will verbalize/demonstrate understanding of assistive devices/ modifications for ADL. 3=Patient will improve strength/tolerance for activity to enable patient to perform ADL's. OT Education/Plan Problem List/Assessment Pt would benefit from skilled OT to increase her independence in basic self care to allow her to safely return home Discharge Recommendations Plan/Recommendations: Continue POC Treatment Plan/Plan of Care Patient would benefit from OT for education, treatment and training to promote independence in ADL's, mobility, safety and/or upper extremity function for ADL' s. Plan of Care: ADL Retraining, Functional Mobility, Group Exercise/Act as Ind ( education, exercise, activity tolerance, funct mobility, socialization), UE Funct Exercise/Act, UE Neuromus Re-Ed/Coord Treatment Duration: Jun 01, 2018 Frequency: At least 5 of 7 days/Wk (IRF) Estimated Hrs Per Day: 1.5 hours per day Agreement: Yes Rehab Potential: Good Time/GCodes Start Time: 13:00 Stop Time: 13:30 Total Time Billed (hr/min): 30 Billed Treatment Time 1 visit, FA(15minutes), EX(15minutes) KAN FLEMING OT May 15, 2018 14:01
--- NOTE | 2018-05-15 14:28 | Physical Therapy Daily Note ---
PT Daily Note-Current Subjective pt in w/c pre tx, agrees to PT, pain 4/10 in R hip, pt has just finished w/ OT Appearance pt in bed post tx, w/ phone, call light, tray, all needs met, 2 pillows between legs Mental Status Patient Orientation: Person, Place, Time Transfers Functional [place] Measure 0=Not Assessed/NA 4=Minimal Assistance 1=Total Assistance 5=Supervision or Setup 2=Maximal Assistance 6=Modified [place] 3=Moderate Assistance 7=Complete IndependenceIRFPAI Quality Coding Scale 6 Independent with activity with or without an assistive device 5 Patient requires set up or clean up by helper. Patient completes activity by themselves 4 Supervision or touching assist (CGA). [place] provide cues , steadying assist 3 The helper provides less than half the effort to complete the activity 2 The helper provides more than half the effort to complete the activity 1 Dependent. The helper does all the effort to complete an activity 7 Patient refused to complete or attempt activity 9 The patient did not perform the activity before the current illness or injury 88 Not attempted due to Medical conditions or safety concerns Transfers (B, C, W/C) (FIM): 4 Scootin Rollin Supine to/from Sit: 4 Sit to/from Stand: 4 Bed to/from Chair: 4 supine<->sit CGA w/ assistance getting RLE into/out of bed, bed<->chair CGA, sit <->stand CGA, pt does well pushing off/grabbing back for chair/bed Weight Bearing Right Lower Extremity: Right Weight Bearing/Tolerated Left Lower Extremity: Left Full Weight Bearing Gait Training Does the Patient Walk?: Yes Gait (FIM): 2 Distance: 120' Gait Level of Assist: 4 Gait Persons Needed: 1 Gait Assistive Device: FWW Pt ambulats to gym w/ FWW and CGA, antalgic gait w/ decreased stance time on RLE and extended knee, pt has started to use reciprocal patter rather than step- to Wheelchair Training Does the Pt Use a Wheelchair?: Yes Wheelchair (FIM): 1 Wheelchair Distance: 1=up to 49 ft Distance: 150' Wheelchair Level of Assist: 1 Type of Wheelchair: Manual Exercises Seated Therapy Exercises: Long arc quads Seated Reps: 20 Standing: Hamstring curls, 3 way Ex=Flex, Abd, Ext Standing Reps: 20 Standing Exercises in parallel bars and RLE only Treatments gait training, functional strengthening Assessment Current Status: Fair Progress improved mobility and ambulation, pt using reciprocal gait pattern w/ increased WB on RLE PT Short Term Goals Short Term Goals Time Frame: May 14, 2018 Wheelchair Distance: 150' PT Printer Slotter Feeder Goals Printer Slotter Feeder Goals PT Prison Goals Time Frame: Jun 01, 2018 Transfers (B,C,W/C) (FIM): 6 Sit to Lying (QC): 6 Lying-Sitting on Side/Bed(QC): 6 Sit to Stand (QC): 6 Rollin Roll Left to Right (QC): 6 Chair/Ecf-jd-Dzlwq Xfer(QC): 6 Car Transfer (QC): 6 Does the Patient Walk: Yes Gait (FIM): 6 Gait distance (FIM): 3=150 ft Distance: 200' Walk 10 feet (QC): 6 Walk 10ft-Uneven Surface(QC): 6 Walk 50ft with 2 Turns (QC): 6 Walk 150 ft (QC): 6 Gait Level of Assist: 6 Gait Assistive Device: FWW Stairs (FIM): 5 # of Steps: 8 1 Step (curb) (QC): 5 4 Steps (QC): 5 12 Steps (QC): 9 Stairs Level Of Assist: 5 Picking up an Object (QC): 5 PT Plan Problem List Problem List: Activity Tolerance, Functional Strength, Safety, Balance, Gait, Transfer, Bed Mobility, ROM Treatment/Plan Treatment Plan: Continue Plan of Care Treatment Plan: Bed Mobility, Education, Functional Activity Rick, Functional Strength, Group Therapy, Gait, Safety, Therapeutic Exercise, Transfers Treatment Duration: Jun 01, 2018 Frequency: At least 5 of 7 days/Wk (IRF) Estimated Hrs Per Day: 1.5 hours per day Patient and/or Family Agrees t: Yes Safety Risks/Education Patient Education: Gait Training, Transfer Techniques, Correct Positioning, Disease Process, Safety Issues Teaching Recipient: Patient Teaching Methods: Demonstration, Discussion Response to Teaching: Reinforcement Needed Time/GCodes Time In: 1330 Time Out: 1400 Total Billed Treatment Time: 30 Total Billed Treatment 1 visit GT 10' EX 20' DARWIN WARD PT May 15, 2018 14:28
[2018-05-15 17:30] VITALS: BP 125/63
[2018-05-15] MEDS: warFARin 2 MG (COUMADIN) TAB PO SCH (17:50)
[2018-05-15] MEDS: rOPINIRole 0.25 MG (REQUIP) TAB PO PRN (21:30)
[2018-05-16] MEDS: HYDROcodone/APAP 5 MG/325 MG (LORTAB) TAB PO PRN ×5 (00:37→21:37)
[2018-05-16 05:01] VITALS: BP 104/51
[2018-05-16] MEDS: MULTIVIT W/MINERALS TAB (THERAGRAN M) PO SCH (06:04)
[2018-05-16] MEDS: KCL 10 MEQ TAB (MICRO K) PO SCH ×2 (06:04→17:11)
[2018-05-16] MEDS: LEVOTHYROXINE 100 MCG (LEVOTHROID) TAB PO SCH (06:04)
[2018-05-16] MEDS: PANTOPRAZOLE 40 MG (PROTONIX) TAB PO SCH (06:04)
[2018-05-16] MEDS: FUROSEMIDE 40 MG (LASIX) TAB PO SCH ×2 (06:04→17:11)
--- NOTE | 2018-05-16 07:23 | Occupational Ther Daily Note ---
OT Current Status-Daily Note Subjective Pt alert, sitting in recliner. Family in room. No c/o pain at this time. Family stated that pt had a good night. Mental Status/Objective Patient Orientation: Person, Place, Time, Situation Functional [place] Measure 0=Not Assessed/NA 4=Minimal Assistance 1=Total Assistance 5=Supervision or Setup 2=Maximal Assistance 6=Modified [place] 3=Moderate Assistance 7=Complete [place] Attachments: IV, Oxygen ADL-Treatment SBA, pt ambulated to bathroom using FWW. Sitting in front of sink, pt completed grooming. Clothing set up, pt doffed socks by self using AE, SBA. Pt doffed gown, SBA. Pt able to doff LE clothing, using AE to manipulate once passed knee to adhere to hip precautions, SBA. Pt completed sponge bath with SBA using AE to reach LE. Set up, pt donned gown with SBA in standing to hike down over hips. Pt able to don LE clothing using AE with verbal cue on technique to manipulate clothing over feet, Min A. Pt able to don socks by self using AE. SBA in standing using FWW to hike pants over hips. Pt stood using grabbars, SBA for SPT to toilet elevated seat with handles. SBA in standing for toilet hygiene and clothing. Pt ambulated back to recliner using FWW , SBA. Pt takes increased time to complete ADLs. While sitting in recliner, pt completed 3 sets/2 UE exercises/7x using 2# hand wt alternating R/L, tolerated well. After therapy, pt sitting in recliner with call light/phone within reach. All needs meet in room. Family present in room. Functional [place] Measure 0=Not Assessed/NA 4=Minimal Assistance 1=Total Assistance 5=Supervision or Setup 2=Maximal Assistance 6=Modified [place] 3=Moderate Assistance 7=Complete IndependenceIRFPAI Quality Coding Scale 6 Independent with activity with or without an assistive device 5 Patient requires set up or clean up by helper. Patient completes activity by themselves 4 Supervision or touching assist (CGA). [place] provide cues , steadying assist 3 The helper provides less than half the effort to complete the activity 2 The helper provides more than half the effort to complete the activity 1 Dependent. The helper does all the effort to complete an activity 7 Patient refused to complete or attempt activity 9 The patient did not perform the activity before the current illness or injury 88 Not attempted due to Medical conditions or safety concerns Eating (FIM): 6 (Pt able to manipulate packaging and uses normal utensils. ) Eating (QC): 6 Grooming (FIM): 5 Oral Hygiene (QC): 4 Bathing (FIM): 5 Bathing Location: L Arm, R Arm, L Upper Leg, R Upper Leg, L Lower Leg ( including foot), R Lower Leg (including foot), Chest, Abdomen, Buttocks, Perineal Area Shower/Bathe Self (QC): 4 Upper Body (FIM): 5 Upper Body Dressing (QC): 5 Lower Body Dressing (FIM): 5 Lower Body Dressing (QC): 4 On/Off Footwear (QC): 4 Toileting (FIM): 5 Toileting Hygiene (QC): 4 Transfers (B, C, W/C) (FIM): 5 Toilet/Commode Transfer (FIM): 5 Toilet Transfer (QC): 4 Other Treatment Pt's daughter stated that pt has tub/shower and chair at home. Pt's family may have tub transfer bench that pt can use. Daughter stated that she would be able to stay with her mother for a couple of weeks if needed after hospital stay. Education OT Patient Education: Rehab process, Transfer techniques, Use of adapted equipment Teaching Recipient: Family Teaching Methods: Demonstration, Discussion Response to Teaching: Verbalize Understanding OT Short Term Goals Short Term Goals Time Frame: May 21, 2018 Grooming(FIM): 6 Toilet/Commode Transfer(FIM): 5 Additional Short Term Goals: 1-Demonstrate ADL Tasks, 2-Verbalize Understanding , 3-ImproveStrength/Rick 1=Demonstrate adherence to instructed precautions during ADL tasks. 2=Patient will verbalize/demonstrate understanding of assistive devices/ modifications for ADL. 3=Patient will improve strength/tolerance for activity to enable patient to perform ADL's. OT Intermediate Goals Intermediate Goals Time Frame: Jun 01, 2018 Eating (FIM): 7 (no dentures) Eating (QC): 6 Groomin Oral Hygiene (QC): 6 Bathing(FIM): 6 Shower/Bathe Self (QC): 6 Upper Body Dressing(FIM): 6 Upper Body Dressing (QC): 6 Lower Body Dressing(FIM): 6 Lower Body Dressing (QC): 6 On/Off Footwear (QC): 6 Toileting(FIM): 6 Toileting Hygiene (QC): 6 Toilet/Commode Transfer(FIM): 6 Toilet/Commode Transfer (QC): 6 Shower Transfer(FIM): 5 Additional Goals: 1-Demonstrate ADL Tasks, 2-Verbalize Understanding, 3- ImproveStrength/Rick 1=Demonstrate adherence to instructed precautions during ADL tasks. 2=Patient will verbalize/demonstrate understanding of assistive devices/ modifications for ADL. 3=Patient will improve strength/tolerance for activity to enable patient to perform ADL's. OT Education/Plan Problem List/Assessment Pt would benefit from skilled OT to increase her independence in basic self care to allow her to safely return home Discharge Recommendations Plan/Recommendations: Continue POC Treatment Plan/Plan of Care Patient would benefit from OT for education, treatment and training to promote independence in ADL's, mobility, safety and/or upper extremity function for ADL' s. Plan of Care: ADL Retraining, Functional Mobility, Group Exercise/Act as Ind ( education, exercise, activity tolerance, funct mobility, socialization), UE Funct Exercise/Act, UE Neuromus Re-Ed/Coord Treatment Duration: Jun 01, 2018 Frequency: At least 5 of 7 days/Wk (IRF) Estimated Hrs Per Day: 1.5 hours per day Agreement: Yes Rehab Potential: Good Time/GCodes Start Time: 07:00 Stop Time: 08:30 Total Time Billed (hr/min): 90 Billed Treatment Time 1 visit- ADL 5 (75 min) Ex 1 (15 min) HARDIK NUNEZ May 16, 2018 07:23
[2018-05-16 07:47] VITALS: BP 126/66
[2018-05-16] MEDS: SENNOSIDES 8.6 MG (SENOKOT) TAB PO SCH ×2 (08:52→20:24)
[2018-05-16] MEDS: LORATADINE (CLARITIN) 10 MG TAB PO SCH (08:53)
[2018-05-16] MEDS: MEXILETINE 150 MG (MEXITIL) CAPSULE PO SCH ×2 (08:53→20:24)
[2018-05-16] MEDS: DIGOXIN 0.125 MG (LANOXIN) TAB PO SCH (08:54)
[2018-05-16] MEDS: meTOproloL SUCCINATE 50 MG (TOPROL XL) TAB PO SCH (08:54)
[2018-05-16] MEDS: CLOPIDOGREL 75 MG (PLAVIX) TABLET PO SCH (08:54)
[2018-05-16] MEDS: ISOSORBIDE MONONITRATE 30 MG (IMDUR) TAB PO SCH (08:54)
[2018-05-16] MEDS: SACUBITRIL/VALSARTAN 24/26 MG (ENTRESTO) TABLET PO SCH ×2 (09:03→20:24)
--- NOTE | 2018-05-16 11:28 | Physical Therapy Daily Note ---
PT Daily Note-Current Subjective Patient agrees to PT. O2 was not on patient with SAO2 81%. It was down on her chin. PT instructed patient to place NC in nose with SAO2 increasing to 92% in 30 sec. RN notified Pain Numeric Pain Scale: 5-Moderate Pain Location: Right Location Body Site: Hip Pain Description: Acute Mental Status Patient Orientation: Normal For Age Attachments: Oxygen Transfers Functional [place] Measure 0=Not Assessed/NA 4=Minimal Assistance 1=Total Assistance 5=Supervision or Setup 2=Maximal Assistance 6=Modified [place] 3=Moderate Assistance 7=Complete IndependenceIRFPAI Quality Coding Scale 6 Independent with activity with or without an assistive device 5 Patient requires set up or clean up by helper. Patient completes activity by themselves 4 Supervision or touching assist (CGA). [place] provide cues , steadying assist 3 The helper provides less than half the effort to complete the activity 2 The helper provides more than half the effort to complete the activity 1 Dependent. The helper does all the effort to complete an activity 7 Patient refused to complete or attempt activity 9 The patient did not perform the activity before the current illness or injury 88 Not attempted due to Medical conditions or safety concerns Transfers (B, C, W/C) (FIM): 4 Scootin Rollin Roll Left to Right (QC): 4 Supine to/from Sit: 4 Sit to/from Stand: 4 Sit to Lying (QC): 5 Sit to Stand (QC): 5 Chair/Ehh-jn-Smhqt Xfer(QC): 5 Bed to/from Chair: 5 Weight Bearing Right Lower Extremity: Right Weight Bearing/Tolerated Left Lower Extremity: Left Full Weight Bearing Gait Training Does the Patient Walk?: Yes Gait (FIM): 2 Distance (FIM): 6=336-64 ft Distance: 75' x 3/150' x 1 Walk 10 feet (QC): 4 Walk 50 ft with 2 Turns(QC): 4 Walk 150 ft (QC): 4 Gait Level of Assist: 4 Gait Persons Needed: 1 Gait Assistive Device: FWW slow, antalgic, reciprocal pattern Exercises Supine Ex: Ankle pumps, Quad Set, Heel Slides Supine Reps: 15 Seated Therapy Exercises: Ankle pumps, Long arc quads Seated Reps: 20 (2 sets) NuStep Minutes: 15 NuStep Workload: 3 (to improve cardiopulmonary function) Assessment Patient progressing with treatment plan. She continued to c/o fatigue and weakness. Education with patient on concern. PT Short Term Goals Short Term Goals Time Frame: May 14, 2018 Wheelchair Distance: 150' PT Care Home Goals Pharmacy Sales Representative Goals PT Care Home Goals Time Frame: Jun 01, 2018 Transfers (B,C,W/C) (FIM): 6 Sit to Lying (QC): 6 Lying-Sitting on Side/Bed(QC): 6 Sit to Stand (QC): 6 Rollin Roll Left to Right (QC): 6 Chair/Ahe-kh-Sxmsy Xfer(QC): 6 Car Transfer (QC): 6 Does the Patient Walk: Yes Gait (FIM): 6 Gait distance (FIM): 3=150 ft Distance: 200' Walk 10 feet (QC): 6 Walk 10ft-Uneven Surface(QC): 6 Walk 50ft with 2 Turns (QC): 6 Walk 150 ft (QC): 6 Gait Level of Assist: 6 Gait Assistive Device: FWW Stairs (FIM): 5 # of Steps: 8 1 Step (curb) (QC): 5 4 Steps (QC): 5 12 Steps (QC): 9 Stairs Level Of Assist: 5 Picking up an Object (QC): 5 PT Plan Treatment/Plan Treatment Plan: Continue Plan of Care Treatment Plan: Bed Mobility, Education, Functional Activity Rick, Functional Strength, Group Therapy, Gait, Safety, Therapeutic Exercise, Transfers Treatment Duration: Jun 01, 2018 Frequency: At least 5 of 7 days/Wk (IRF) Estimated Hrs Per Day: 1.5 hours per day Patient and/or Family Agrees t: Yes Time/GCodes Time In: 1025 Time Out: 1125 Total Billed Treatment Time: 60 Total Billed Treatment 1 visit EX x 2 32 min GT x 2 28 min KATHERINE RUTHERFORD PT May 16, 2018 11:28
[2018-05-16 11:40] VITALS: BP 93/46
--- NOTE | 2018-05-16 14:26 | Physical Therapy Daily Note ---
PT Daily Note-Current Subjective Pt sitting up in bed upon arrival. Pt agrees to PT. Pain Numeric Pain Scale: 5-Moderate Pain Location: Right Location Body Site: Thigh Pain Description: Ache Mental Status Patient Orientation: Person, Place, Time, Situation Attachments: Oxygen Transfers Functional [place] Measure 0=Not Assessed/NA 4=Minimal Assistance 1=Total Assistance 5=Supervision or Setup 2=Maximal Assistance 6=Modified [place] 3=Moderate Assistance 7=Complete IndependenceIRFPAI Quality Coding Scale 6 Independent with activity with or without an assistive device 5 Patient requires set up or clean up by helper. Patient completes activity by themselves 4 Supervision or touching assist (CGA). [place] provide cues , steadying assist 3 The helper provides less than half the effort to complete the activity 2 The helper provides more than half the effort to complete the activity 1 Dependent. The helper does all the effort to complete an activity 7 Patient refused to complete or attempt activity 9 The patient did not perform the activity before the current illness or injury 88 Not attempted due to Medical conditions or safety concerns Weight Bearing Right Lower Extremity: Right Weight Bearing/Tolerated Left Lower Extremity: Left Full Weight Bearing Exercises Supine Ex: Ankle pumps, Quad Set, Glut sets, Heel Slides, Straight leg raise, Hip abd/add Supine Reps: 20 Treatments Pt completes Supine Ex in bed with a couple short rest breaks. PRODUCT MARKETING EXECUTIVE teaches Pursed Lip Breathing technique. Pt resting in bed, repositioned with pillow under R hip/thigh for comfort. Pt has all needs met. Assessment Current Status: Good Progress Pt continues to work despite discomfort. Pt was fatigued previous to tx. PT Short Term Goals Short Term Goals Time Frame: May 14, 2018 Wheelchair Distance: 150' PT Acquisition Marketing Coordinator Goals Senior Care Goals PT Acquisition Marketing Coordinator Goals Time Frame: Jun 01, 2018 Transfers (B,C,W/C) (FIM): 6 Sit to Lying (QC): 6 Lying-Sitting on Side/Bed(QC): 6 Sit to Stand (QC): 6 Rollin Roll Left to Right (QC): 6 Chair/Ogn-ly-Kpnyu Xfer(QC): 6 Car Transfer (QC): 6 Does the Patient Walk: Yes Gait (FIM): 6 Gait distance (FIM): 3=150 ft Distance: 200' Walk 10 feet (QC): 6 Walk 10ft-Uneven Surface(QC): 6 Walk 50ft with 2 Turns (QC): 6 Walk 150 ft (QC): 6 Gait Level of Assist: 6 Gait Assistive Device: FWW Stairs (FIM): 5 # of Steps: 8 1 Step (curb) (QC): 5 4 Steps (QC): 5 12 Steps (QC): 9 Stairs Level Of Assist: 5 Picking up an Object (QC): 5 PT Plan Problem List Problem List: Activity Tolerance, Functional Strength, Safety, Gait, Transfer Treatment/Plan Treatment Plan: Continue Plan of Care Treatment Plan: Bed Mobility, Education, Functional Activity Rick, Functional Strength, Group Therapy, Gait, Safety, Therapeutic Exercise, Transfers Treatment Duration: Jun 01, 2018 Frequency: At least 5 of 7 days/Wk (IRF) Estimated Hrs Per Day: 1.5 hours per day Patient and/or Family Agrees t: Yes Safety Risks/Education Patient Education: Correct Positioning, Safety Issues Teaching Recipient: Patient Teaching Methods: Discussion Response to Teaching: Verbalize Understanding Time/GCodes Time In: 1345 Time Out: 1415 Total Billed Treatment Time: 30 Total Billed Treatment 1, EX x2 (30m) G Codes Necessary: ORVILLE Medrano PTA May 16, 2018 14:26
[2018-05-16 15:46] VITALS: BP 115/60
[2018-05-16] MEDS: warFARin 1 MG (COUMADIN) TAB PO SCH (17:14)
--- NOTE | 2018-05-16 19:21 | PM & R (SOAP) Progress Note ---
Subjective This was a face to face visit with the patient. Date Seen by Provider: May 16, 2018 Time Seen by Provider: 19:10 Subjective/Events-last exam Patient was seen in her room this evening Patient min assist for transfers Review of Systems Musculoskeletal: leg pain Neurological: Weakness Objective Physician Exam Last Set of Vital Signs Vital Signs Date Time Temp Pulse Resp B/P (MAP) Pulse Ox O2 Delivery O2 Flow Rate FiO2 05/16/18 17:15 Nasal Cannula 3.00 05/16/18 15:46 98.3 87 14 115/60 (78) 97 Capillary Refill : Less Than 3 Seconds I&O Intake and Output 05/16/18 00:00 Intake Total 1050 ml Output Total 1100 ml Balance -50 ml Intake Oral 1050 ml Output Urine Total 1100 ml General: Alert, Oriented X3, Cooperative, No Acute Distress HEENT: Atraumatic, PERRLA, EOMI, Mucous Memb Moist/[place], Other (02 by N/C in place) Neck: Supple, No JVD Lungs: Clear to Auscultation Heart: Regular Rate, Normal S1, Other (Systolic murmur at left sternal border) Abdomen: Normal Bowel Sounds, Soft, No Tenderness Extremities: No Clubbing, Other (trace edema rt ankle) Neuro: Normal Speech, Sensation Intact, Other (Strength LLE 3+/5 RLE 3-/5 Upper limb strength 4/5) Psych/Mental Status: Mental Status NL Results Lab Data Laboratory Tests 05/15/18 05:50: White Blood Count 5.4, Red Blood Count 2.44L, Hemoglobin 7.9L, Hematocrit 25L, Mean Corpuscular Volume 101H, Mean Corpuscular Hemoglobin 32, Mean Corpuscular Hemoglobin Concent 32, Red Cell Distribution Width 15.8H, Platelet Count 107L, Mean Platelet Volume 10.9H, Prothrombin Time 27.1H, INR Comment 2.5H Assessment/Plan Assessment and Plan Rt fem neck fracture s/p RT HIP replacement WBAT DR Ortiz Postop anemia Severe MV stenosis AVR chronically anticoagulated MIld CAD Nonischemic cardiomypoathy S/P ICD PVD AAA Resp insuff on 02 HTN Plan Continue PT/OT F/U with ortho and Hospitalist as per their schedule Co-Morbidities that are continuing to impact the rehab process: (include details ) MARYBEL ROSARIO MD May 16, 2018 19:21
[2018-05-16] MEDS: rOPINIRole 0.25 MG (REQUIP) TAB PO PRN (21:37)
[2018-05-17] MEDS: HYDROcodone/APAP 5 MG/325 MG (LORTAB) TAB PO PRN ×4 (01:29→20:07)
[2018-05-17 05:03] VITALS: BP 110/55
[2018-05-17] MEDS: LEVOTHYROXINE 100 MCG (LEVOTHROID) TAB PO SCH (06:38)
[2018-05-17] MEDS: KCL 10 MEQ TAB (MICRO K) PO SCH ×2 (06:38→16:43)
[2018-05-17] MEDS: FUROSEMIDE 40 MG (LASIX) TAB PO SCH ×2 (06:38→16:43)
[2018-05-17] MEDS: METOLAZONE 2.5 MG (ZAROXOLYN) TAB PO SCH (06:38)
[2018-05-17] MEDS: MULTIVIT W/MINERALS TAB (THERAGRAN M) PO SCH (06:38)
[2018-05-17] MEDS: PANTOPRAZOLE 40 MG (PROTONIX) TAB PO SCH (06:38)
--- NOTE | 2018-05-17 08:27 | Individualized Plan of Care ---
Individualized Plan of Care Rehab Nursing IPOC Order Admission Date May 14, 2018 at 10:30 Current Orders Orders Pt Evaluate/Treat Request (05/13/18 11:19) Request Ot Evaluate & Treat (05/13/18 11:19) Request For Cognitive Services (05/13/18 11:19) Admission Arrival Bed Request (05/14/18 10:59) Admission Order(Inpt,Obs,Sdc) (05/14/18 12:11) Sequential Compression Device 08,20 (05/14/18 12:11) Mine Inspector Federal-Inpt Rehab Con (05/14/18 12:11) Rehab Nursing Orders-Ipoc (05/14/18 12:11) Physical Therapy Rehab Orders (05/14/18 12:11) Occupational Therapy Rehab Ord (05/14/18 12:11) Speech Therapy Rehab Orders (05/14/18 12:11) Turn And Reposition Q2HR (05/14/18 12:11) Intake & Output 06,14,22 (05/14/18 12:11) Weekly Weight (Lbs) WEEK (05/14/18 12:11) Code/Resuscitation (05/14/18 12:11) Initiate Admission Nursing Pro .admission (05/14/18 12:11) Ambulate 08,12,20 (05/14/18 12:17) Sequential Compression Device 08,20 (05/14/18 12:17) Dvt/Vte Risk - Notifiy Physici 08 (05/14/18 12:17) Code/Resuscitation (05/14/18 12:16) Abduction Pillow: Apply (Order (05/14/18 12:16) Incentive Spirometry (Nursing) Q2H (05/14/18 12:16) Oxygen-Administer 07,19 (05/14/18 12:16) Sequential Compression Device 08,20 (05/14/18 12:16) Adithya Hose 09,21 (05/14/18 12:16) Heart Healthy (05/14/18 Dinner) Digoxin Tablet (Lanoxin Tablet) (05/15/18 09:00) Hydrocodone/Apap 5/325 Tablet (Lortab 5 (05/14/18 12:30) Isosorbide Mononitrate Tablet (Imdur Tab (05/15/18 09:00) Levothyroxine Tablet (Synthroid Tablet) (05/15/18 06:30) Loratadine Tablet (Claritin Tablet) (05/15/18 09:00) Melatonin Tablet (Melatonin Tablet) (05/14/18 12:30) Meclizine Tablet (Antivert Tablet) (05/14/18 12:30) Mexiletine Capsule (Mexiletine Capsule) (05/14/18 21:00) Magnesium Hydroxide Oral Susp (Mom Oral (05/14/18 12:30) Therapeutic Multivitamin Tab (Vitamins, (05/15/18 07:00) Antacid Suspension (Mylanta Suspension (05/14/18 12:30) Pantoprazole Tablet (Protonix Tablet) (05/15/18 07:00) Temazepam Capsule (Restoril Capsule) (05/14/18 12:30) Sennosides Tablet (Senokot Tablet) (05/14/18 21:00) Acetaminophen Tablet/Caplet (Tylenol T (05/14/18 12:30) Warfarin Tablet (Coumadin Tablet) (05/14/18 18:00) Warfarin Tablet (Coumadin Tablet) (05/15/18 18:00) Guaifenesin Tablet (Mucinex Tablet) (05/14/18 12:30) Metoprolol Succinate (Xl) Tab (Toprol Xl (05/15/18 09:00) Ropinirole Tablet (Requip Tablet) (05/14/18 12:30) Consult Physician (05/14/18 12:16) Oxygen Delivery Set Up (05/14/18 12:16) Oxygen Delivery Set Up (05/14/18 12:16) Furosemide Tablet (Lasix Tablet) (05/14/18 17:00) Potassium Chloride (Tablet) (Klor Con Ta (05/14/18 17:00) Pharmacy Communication (Pharmacy Communi (05/14/18 12:30) Metolazone Tablet (Zaroxolyn Tablet) (05/17/18 06:30) Heart Healthy (05/14/18 Lunch) Clopidogrel Tablet (Plavix Tablet) (05/15/18 09:00) Sacubitril/Valsartan 24/26 Mg (Entresto (05/14/18 21:00) Isolation Central Supply Req (05/14/18 13:45) Consult Physician (05/14/18 14:36) Patient Visit (05/14/18 ) Pt Eval High Complexity (05/14/18 ) Patient Visit (05/14/18 ) Exercise Therap, Ea 15 Min (05/14/18 ) Gait Training, Ea 15 Min (05/14/18 ) Patient Visit (05/14/18 ) Exercise Therap, Ea 15 Min (05/14/18 ) Cbc No Diff (05/15/18 06:00) Protime With Inr (05/15/18 06:00) Patient Visit (05/14/18 ) Speech Sound Lang Comp (05/14/18 ) Patient Visit (05/15/18 ) Gait Training, Ea 15 Min (05/15/18 ) Exercise Therap, Ea 15 Min (05/15/18 ) Patient Visit (05/16/18 ) Exercise Therap, Ea 15 Min (05/16/18 ) Patient Visit (05/16/18 ) Exercise Therap, Ea 15 Min (05/16/18 ) Gait Training, Ea 15 Min (05/16/18 ) Rehab Nursing Orders: Ongoing Assess. of Cognitive Status, Ongoing Assess. of Function Status, Disease Management & Educaiton, DVT Prophylaxis, Fall Prevention, Fluid/Electrolyte/Nutrition Mgmt, Infection Prevention, Medication Management & Education, Management of Risks & Complications, Management of Skin Intergrity, Nutrition Management, Pain Management, Patient/Family Support PT IPOC Problem List: Activity Tolerance, Functional Strength, Safety, Gait, Transfer Treatment Plan: Continue Plan of Care Bed Mobility, Education, Functional Activity Rick, Functional Strength, Group Therapy, Gait, Safety, Therapeutic Exercise, Transfers Treatment Duration: Jun 01, 2018 Frequency: At least 5 of 7 days/Wk (IRF) Estimated Hrs Per Day: 1.5 hours per day OT IPOC Problems: Decreased Activ Tolerance, Decreased UE Strength, Dependent Transfers , Impaired Self-Care Skills OT Treatment, Training and Edu: Yes OT Problems Pt would benefit from skilled OT to increase her independence in basic self care to allow her to safely return home Plan of Care: ADL Retraining, Functional Mobility, Group Exercise/Act as Ind ( education, exercise, activity tolerance, funct mobility, socialization), UE Funct Exercise/Act, UE Neuromus Re-Ed/Coord Treatment Duration: Jun 01, 2018 Frequency: At least 5 of 7 days/Wk (IRF) Estimated Hrs Per Day: 1.[address] IPOC Speech Therapy Treatment Plan: Discontinue ST Treatment Duration: May 17, 2018 Frequency: Modified Program (IRF) (0) Estimated Hrs Per Day: Other (0) Mine Inspector Federal/Case Mgmt Mine Inspector Federal/Case Managemen: Discharge Planning, Patient/Family Counseling Dietitian/Country Printer Dietitian/Country Printer to monitor nutritional status and make changes and/or recommendations as needed and work with speech pathology on dietary upgrades as the occur. Physician IPOC Medical Issues being managed closely and that require the 24 hour availability of a physician: Postop anemia Severe MV stenosis AVR chronically anticoagulated Mild CAD Nonischemic cardiomyopathy S/P ICD PVD AAA Resp Insuff on HTN C code 08.11 Etiologic DX Fracture rt closed femur Medical Issues: DVT Prophylaxis, Falls Precautions, Infection Protection, Pain Management, Wound Care, Other (List) (as per above) Brief Synthesis of Preadmission Screen, Post-Admission Evaluation, and Therapy Evaluations: 82 yo female who had been Independent and working PT who fell and sustained a closed fracture of the rt femur with a resulting decline in Functional [place].Comorbidities as per above referred to IRU for ongoing care.Has a very supportive family Medical Prognosis: Good Anticipated Length of Stay: 06-01-18 Modified Independent for adls and mobility skills Anticipated d/c Destination: Home with family and [facility] MARYBEL ROSARIO MD May 17, 2018 08:27
[2018-05-17] MEDS: LORATADINE (CLARITIN) 10 MG TAB PO SCH (08:31)
[2018-05-17] MEDS: CLOPIDOGREL 75 MG (PLAVIX) TABLET PO SCH (08:31)
[2018-05-17] MEDS: ISOSORBIDE MONONITRATE 30 MG (IMDUR) TAB PO SCH (08:32)
[2018-05-17] MEDS: SENNOSIDES 8.6 MG (SENOKOT) TAB PO SCH ×2 (08:32→20:07)
[2018-05-17] MEDS: MEXILETINE 150 MG (MEXITIL) CAPSULE PO SCH ×2 (08:33→20:07)
--- NOTE | 2018-05-17 08:33 | PM & R (SOAP) Progress Note ---
Subjective This was a face to face visit with the patient. Date Seen by Provider: May 17, 2018 Time Seen by Provider: 08:00 Subjective/Events-last exam Patient was seen in her room this AM Patient Min assist for transfers.requesting pain pill RN aware Review of Systems Musculoskeletal: leg pain Objective Physician Exam Last Set of Vital Signs Vital Signs Date Time Temp Pulse Resp B/P (MAP) Pulse Ox O2 Delivery O2 Flow Rate FiO2 05/17/18 06:00 Nasal Cannula 3.00 05/17/18 05:03 98.4 86 16 110/55 (73) 97 Capillary Refill : Less Than 3 Seconds I&O Intake and Output 05/17/18 00:00 Intake Total 1245 ml Output Total 700 ml Balance 545 ml Intake Oral 1245 ml Output Urine Total 700 ml # Voids 2 # Bowel Movements 1 General: Alert, Oriented X3, Cooperative, No Acute Distress HEENT: Atraumatic, PERRLA, EOMI, Mucous Memb Moist/[place], Other (02 by N/C in place) Neck: Supple, No JVD Lungs: Clear to Auscultation Heart: Regular Rate, Normal S1, Other (Systolic murmur at left sternal border) Abdomen: Normal Bowel Sounds, Soft, No Tenderness Extremities: No Clubbing, Other (trace edema rt ankle) Neuro: Normal Speech, Sensation Intact, Other (Strength LLE 3+/5 RLE 3-/5 Upper limb strength 4/5) Psych/Mental Status: Mental Status NL Results Lab Data Laboratory Tests 05/15/18 05:50: White Blood Count 5.4, Red Blood Count 2.44L, Hemoglobin 7.9L, Hematocrit 25L, Mean Corpuscular Volume 101H, Mean Corpuscular Hemoglobin 32, Mean Corpuscular Hemoglobin Concent 32, Red Cell Distribution Width 15.8H, Platelet Count 107L, Mean Platelet Volume 10.9H, Prothrombin Time 27.1H, INR Comment 2.5H Assessment/Plan Assessment and Plan Rt femoral neck fracture s/p RT HIP replacement DR Ortiz WBAT Postop anemia Severe MV stenosis AVR chronically anticoagulated MILD CAD Nonischemic cardiomyopathy S/P ICD PVD AAA Resp insuff on 02 HTN Plan Continue PT/OT Next Team Conference 05-22-18 Monitor INR and adjust coumadin dose as appropriate F/U with ortho and Hospitalist PRN Co-Morbidities that are continuing to impact the rehab process: (include details ) MARYBEL ROSARIO MD May 17, 2018 08:33
[2018-05-17] MEDS: DIGOXIN 0.125 MG (LANOXIN) TAB PO SCH (08:34)
[2018-05-17] MEDS: meTOproloL SUCCINATE 50 MG (TOPROL XL) TAB PO SCH (08:34)
[2018-05-17] MEDS: SACUBITRIL/VALSARTAN 24/26 MG (ENTRESTO) TABLET PO SCH ×2 (09:06→20:07)
--- NOTE | 2018-05-17 11:08 | Physical Therapy Daily Note ---
PT Daily Note-Current Subjective Pt. states she had a rough night of pain and no sleep and has been up in the recliner since about 430 am and is looking forward to pain relief and sleep. Agrees to attempt as much activity as she can tolerate. c/o pain at 7/10 with gait and exercise Pain Numeric Pain Scale: 7 Location: Right Location Body Site: Hip Pain Description: Stabbing Mental Status Patient Orientation: Normal For Age Transfers Functional [place] Measure 0=Not Assessed/NA 4=Minimal Assistance 1=Total Assistance 5=Supervision or Setup 2=Maximal Assistance 6=Modified [place] 3=Moderate Assistance 7=Complete IndependenceIRFPAI Quality Coding Scale 6 Independent with activity with or without an assistive device 5 Patient requires set up or clean up by helper. Patient completes activity by themselves 4 Supervision or touching assist (CGA). [place] provide cues , steadying assist 3 The helper provides less than half the effort to complete the activity 2 The helper provides more than half the effort to complete the activity 1 Dependent. The helper does all the effort to complete an activity 7 Patient refused to complete or attempt activity 9 The patient did not perform the activity before the current illness or injury 88 Not attempted due to Medical conditions or safety concerns Transfers (B, C, W/C) (FIM): 3 Scootin Rollin Supine to/from Sit: 3 (LEs) Sit to/from Stand: 4 Weight Bearing Right Lower Extremity: Right Weight Bearing/Tolerated Left Lower Extremity: Left Full Weight Bearing Gait Training Does the Patient Walk?: Yes Gait (FIM): 2 Distance (FIM): 4=648-29 ft (x2) Gait Level of Assist: 4 Gait Persons Needed: 1 Gait Assistive Device: FWW safety and management of O2 tubing education etc Exercises Supine Ex: Ankle pumps, Quad Set, Rolling, Glut sets, Heel Slides, Short Arc Quads, Scooting, Straight leg raise (assist), Hip abd/add Supine Reps: 15 Seated Therapy Exercises: Ankle pumps, Sit to stand, Long arc quads, Hip flexion, Hip abd/add Seated Reps: 15 Treatments struggling today, toileted with CGA to min assist, in bed after rx with education as to how to position and do isometrics in bed for pain relief Assessment Current Status: Fair Progress pain and fatigue limiting pt. this date PT Short Term Goals Short Term Goals Time Frame: May 14, 2018 Wheelchair Distance: 150' PT Prison Goals Prison Goals PT Security System Administrator Goals Time Frame: Jun 01, 2018 Transfers (B,C,W/C) (FIM): 6 Sit to Lying (QC): 6 Lying-Sitting on Side/Bed(QC): 6 Sit to Stand (QC): 6 Rollin Roll Left to Right (QC): 6 Chair/Rxc-pe-Hrvui Xfer(QC): 6 Car Transfer (QC): 6 Does the Patient Walk: Yes Gait (FIM): 6 Gait distance (FIM): 3=150 ft Distance: 200' Walk 10 feet (QC): 6 Walk 10ft-Uneven Surface(QC): 6 Walk 50ft with 2 Turns (QC): 6 Walk 150 ft (QC): 6 Gait Level of Assist: 6 Gait Assistive Device: FWW Stairs (FIM): 5 # of Steps: 8 1 Step (curb) (QC): 5 4 Steps (QC): 5 12 Steps (QC): 9 Stairs Level Of Assist: 5 Picking up an Object (QC): 5 PT Plan Treatment/Plan Treatment Plan: Continue Plan of Care Treatment Plan: Bed Mobility, Education, Functional Activity Rick, Functional Strength, Group Therapy, Gait, Safety, Therapeutic Exercise, Transfers Treatment Duration: Jun 01, 2018 Frequency: At least 5 of 7 days/Wk (IRF) Estimated Hrs Per Day: 1.5 hours per day Patient and/or Family Agrees t: Yes Safety Risks/Education Patient Education: Gait Training, Transfer Techniques, Correct Positioning, Disease Process, Safety Issues Teaching Recipient: Patient Teaching Methods: Demonstration, Discussion Response to Teaching: Verbalize Understanding, Return Demonstration, Reinforcement Needed Time/GCodes Time In: 1000 Time Out: 1100 Total Billed Treatment Time: 60 Total Billed Treatment 1,EX25m,FA20m,GT15m G Codes Necessary: NISA Echevarria HAIRSPRING FABRICATION SUPERVISOR May 17, 2018 11:08
--- NOTE | 2018-05-17 11:09 | Occupational Ther Daily Note ---
OT Current Status-Daily Note Subjective Pt sitting in chair, states she had a bad night. Reports 8/10 pain in right LE. RN was notified and provided pain medication. Mental Status/Objective Functional [place] Measure 0=Not Assessed/NA 4=Minimal Assistance 1=Total Assistance 5=Supervision or Setup 2=Maximal Assistance 6=Modified [place] 3=Moderate Assistance 7=Complete [place] Attachments: Oxygen ADL-Treatment Pt agreeable to shower this morning. Sit to stand from chair with minimal assistance. Gait to restroom with FWW. Transfer to [facility] over toilet with minimal assistance. Pt able to complete toileting hygiene. CGA for clothing management. Transfer to walk in shower with shower chair with minimal assistance and cues for safety. Seated bathing completed using hand held shower and long handled sponge. Pt washed upper body with SBA. Minimal assistance for LE bathing using long sponge. Don pullover gown with set up. Pt used dressing stick to don underwear with minimal assistance. Assist required to don JAVIER hose. Pt donned socks with set up using sock aid. Pt fatigues with activity and requires occasional rest breaks during ADL tasks. Increased time for ADL completion. Pt transferred to chair with minimal assistance. Sitting in chair with needs met after session. Functional [place] Measure 0=Not Assessed/NA 4=Minimal Assistance 1=Total Assistance 5=Supervision or Setup 2=Maximal Assistance 6=Modified [place] 3=Moderate Assistance 7=Complete IndependenceIRFPAI Quality Coding Scale 6 Independent with activity with or without an assistive device 5 Patient requires set up or clean up by helper. Patient completes activity by themselves 4 Supervision or touching assist (CGA). [place] provide cues , steadying assist 3 The helper provides less than half the effort to complete the activity 2 The helper provides more than half the effort to complete the activity 1 Dependent. The helper does all the effort to complete an activity 7 Patient refused to complete or attempt activity 9 The patient did not perform the activity before the current illness or injury 88 Not attempted due to Medical conditions or safety concerns Bathing (FIM): 4 Shower/Bathe Self (QC): 3 Upper Body (FIM): 5 Upper Body Dressing (QC): 5 Lower Body Dressing (FIM): 4 Lower Body Dressing (QC): 3 On/Off Footwear (QC): 5 Toileting (FIM): 4 Toileting Hygiene (QC): 4 Toilet/Commode Transfer (FIM): 4 Toilet Transfer (QC): 3 Shower Transfer(FIM): 4 OT Short Term Goals Short Term Goals Time Frame: May 21, 2018 Grooming(FIM): 6 Toilet/Commode Transfer(FIM): 5 Additional Short Term Goals: 1-Demonstrate ADL Tasks, 2-Verbalize Understanding , 3-ImproveStrength/Rick 1=Demonstrate adherence to instructed precautions during ADL tasks. 2=Patient will verbalize/demonstrate understanding of assistive devices/ modifications for ADL. 3=Patient will improve strength/tolerance for activity to enable patient to perform ADL's. OT Retirement Goals Water Treatment Plant Repairer Goals Time Frame: Jun 01, 2018 Eating (FIM): 7 (no dentures) Eating (QC): 6 Groomin Oral Hygiene (QC): 6 Bathing(FIM): 6 Shower/Bathe Self (QC): 6 Upper Body Dressing(FIM): 6 Upper Body Dressing (QC): 6 Lower Body Dressing(FIM): 6 Lower Body Dressing (QC): 6 On/Off Footwear (QC): 6 Toileting(FIM): 6 Toileting Hygiene (QC): 6 Toilet/Commode Transfer(FIM): 6 Toilet/Commode Transfer (QC): 6 Shower Transfer(FIM): 5 Additional Goals: 1-Demonstrate ADL Tasks, 2-Verbalize Understanding, 3- ImproveStrength/Rick 1=Demonstrate adherence to instructed precautions during ADL tasks. 2=Patient will verbalize/demonstrate understanding of assistive devices/ modifications for ADL. 3=Patient will improve strength/tolerance for activity to enable patient to perform ADL's. OT Education/Plan Problem List/Assessment Pt would benefit from skilled OT to increase her independence in basic self care to allow her to safely return home Discharge Recommendations Plan/Recommendations: Continue POC Treatment Plan/Plan of Care Patient would benefit from OT for education, treatment and training to promote independence in ADL's, mobility, safety and/or upper extremity function for ADL' s. Plan of Care: ADL Retraining, Functional Mobility, Group Exercise/Act as Ind ( education, exercise, activity tolerance, funct mobility, socialization), UE Funct Exercise/Act, UE Neuromus Re-Ed/Coord Treatment Duration: Jun 01, 2018 Frequency: At least 5 of 7 days/Wk (IRF) Estimated Hrs Per Day: 1.5 hours per day Agreement: Yes Rehab Potential: Good Time/GCodes Start Time: 08:15 Stop Time: 09:30 Total Time Billed (hr/min): 75 Billed Treatment Time 1 visit, ADLx5(75minutes) KAN FLEMING OT May 17, 2018 11:09
--- NOTE | 2018-05-17 11:22 | Progress Note-Standard ---
Standard Progress Note Progress Notes/Assess & Plan Date Seen by Provider: May 17, 2018 Time Seen by Provider: 11:20 Progress/Assessment & Plan No complaints Vital Signs Date Time Temp Pulse Resp B/P (MAP) Pulse Ox O2 Delivery O2 Flow Rate FiO2 05/15/18 05:41 99.1 85 16 101/55 (70) 98 Nasal Cannula 7.00 05/14/18 21:00 100 Nasal Cannula 3.00 05/14/18 15:44 99.4 91 14 116/69 (85) 100 Nasal Cannula 3.00 05/14/18 15:12 Nasal Cannula 3.00 05/14/18 14:59 80 98 Nasal Cannula 3.00 05/14/18 14:52 Nasal Cannula 3.00 05/14/18 12:09 98.6 85 18 108/56 (73) 100 Nasal Cannula 3.00 I & O 05/15/18 07:00 Intake Total 940 ml Output Total 600 ml Balance 340 ml Laboratory Tests Test 05/15/18 05:50 Range/Units White Blood Count 5.4 4.3-11.0 10^3/uL Red Blood Count 2.44 L 4.35-5.85 10^6/uL Hemoglobin 7.9 L 11.5-16.0 G/DL Hematocrit 25 L 35-52 % Mean Corpuscular Volume 101 H 80-99 FL Mean Corpuscular Hemoglobin 32 25-34 PG Mean Corpuscular Hemoglobin Concent 32 32-36 G/DL Red Cell Distribution Width 15.8 H 10.0-14.5 % Platelet Count 107 L 130-400 10^3/uL Mean Platelet Volume 10.9 H 7.4-10.4 FL Prothrombin Time 27.1 H 12.2-14.7 SEC INR Comment 2.5 H 0.8-1.4 R hip dressing intact. Dry, but sanguinous DC on clothing no calf tenderness. Neg Jennifer's s/p R hip bipolar continue PT/OT Final Diagnosis reports pain last night. better today Vital Signs Date Time Temp Pulse Resp B/P (MAP) Pulse Ox O2 Delivery O2 Flow Rate FiO2 05/17/18 06:00 Nasal Cannula 3.00 05/17/18 05:03 98.4 86 16 110/55 (73) 97 Nasal Cannula 3.00 05/16/18 20:15 Nasal Cannula 3.00 05/16/18 17:15 Nasal Cannula 3.00 05/16/18 15:46 98.3 87 14 115/60 (78) 97 Nasal Cannula 3.00 05/16/18 14:00 Nasal Cannula 3.00 05/16/18 11:40 98.4 85 18 93/46 (62) 97 Nasal Cannula 3.00 I & O 05/17/18 07:00 Intake Total 1220 ml Output Total 250 ml Balance 970 ml R hip with sanguinous DC. Hematoma present, but no erythema or warmth no calf tenderness. Neg Jennifer's continue PT/OT expect DC from incision secondary to post op hematoma. No signs or symptoms of infection ARCENIO GODOY MD May 17, 2018 11:22
--- NOTE | 2018-05-17 12:54 | Occupational Ther Daily Note ---
OT Current Status-Daily Note Subjective Pt in bed, agrees to treatment. Mental Status/Objective Functional [place] Measure 0=Not Assessed/NA 4=Minimal Assistance 1=Total Assistance 5=Supervision or Setup 2=Maximal Assistance 6=Modified [place] 3=Moderate Assistance 7=Complete [place] Attachments: Oxygen ADL-Treatment Pt supine to sit with moderate assistance for LE and increased time. Sit to stand with CGA. Gait to restroom with FWW and slow pace. Pt stood at sink to complete grooming. Pt brushed teeth with SBA for balance. Return to EOB with FWW. Sit to supine with assist for LE. Pt repositioned in bed with minimal assistance. Increased time for mobility during session. Pt resting in bed with needs met. Functional [place] Measure 0=Not Assessed/NA 4=Minimal Assistance 1=Total Assistance 5=Supervision or Setup 2=Maximal Assistance 6=Modified [place] 3=Moderate Assistance 7=Complete IndependenceIRFPAI Quality Coding Scale 6 Independent with activity with or without an assistive device 5 Patient requires set up or clean up by helper. Patient completes activity by themselves 4 Supervision or touching assist (CGA). [place] provide cues , steadying assist 3 The helper provides less than half the effort to complete the activity 2 The helper provides more than half the effort to complete the activity 1 Dependent. The helper does all the effort to complete an activity 7 Patient refused to complete or attempt activity 9 The patient did not perform the activity before the current illness or injury 88 Not attempted due to Medical conditions or safety concerns Grooming (FIM): 5 OT Short Term Goals Short Term Goals Time Frame: May 21, 2018 Grooming(FIM): 6 Toilet/Commode Transfer(FIM): 5 Additional Short Term Goals: 1-Demonstrate ADL Tasks, 2-Verbalize Understanding , 3-ImproveStrength/Rick 1=Demonstrate adherence to instructed precautions during ADL tasks. 2=Patient will verbalize/demonstrate understanding of assistive devices/ modifications for ADL. 3=Patient will improve strength/tolerance for activity to enable patient to perform ADL's. OT Correction Goals Field Service Rep Goals Time Frame: Jun 01, 2018 Eating (FIM): 7 (no dentures) Eating (QC): 6 Groomin Oral Hygiene (QC): 6 Bathing(FIM): 6 Shower/Bathe Self (QC): 6 Upper Body Dressing(FIM): 6 Upper Body Dressing (QC): 6 Lower Body Dressing(FIM): 6 Lower Body Dressing (QC): 6 On/Off Footwear (QC): 6 Toileting(FIM): 6 Toileting Hygiene (QC): 6 Toilet/Commode Transfer(FIM): 6 Toilet/Commode Transfer (QC): 6 Shower Transfer(FIM): 5 Additional Goals: 1-Demonstrate ADL Tasks, 2-Verbalize Understanding, 3- ImproveStrength/Rick 1=Demonstrate adherence to instructed precautions during ADL tasks. 2=Patient will verbalize/demonstrate understanding of assistive devices/ modifications for ADL. 3=Patient will improve strength/tolerance for activity to enable patient to perform ADL's. OT Education/Plan Problem List/Assessment Pt would benefit from skilled OT to increase her independence in basic self care to allow her to safely return home Discharge Recommendations Plan/Recommendations: Continue POC Treatment Plan/Plan of Care Patient would benefit from OT for education, treatment and training to promote independence in ADL's, mobility, safety and/or upper extremity function for ADL' s. Plan of Care: ADL Retraining, Functional Mobility, Group Exercise/Act as Ind ( education, exercise, activity tolerance, funct mobility, socialization), UE Funct Exercise/Act, UE Neuromus Re-Ed/Coord Treatment Duration: Jun 01, 2018 Frequency: At least 5 of 7 days/Wk (IRF) Estimated Hrs Per Day: 1.5 hours per day Agreement: Yes Rehab Potential: Good Time/GCodes Start Time: 11:15 Stop Time: 11:30 Total Time Billed (hr/min): 15 Billed Treatment Time 1 visit, ADL(15minutes) KAN FLEMING OT May 17, 2018 12:54
--- NOTE | 2018-05-17 14:22 | Physical Therapy Daily Note ---
PT Daily Note-Current Subjective Pt. agrees to Rx and states she is still very fatigued, didnt rest b/c visitors came but doesnt have the pain she had this morning. Pain Numeric Pain Scale: 2 Location: Right Location Body Site: Hip Pain Description: Ache Mental Status Patient Orientation: Normal For Age Transfers Functional [place] Measure 0=Not Assessed/NA 4=Minimal Assistance 1=Total Assistance 5=Supervision or Setup 2=Maximal Assistance 6=Modified [place] 3=Moderate Assistance 7=Complete IndependenceIRFPAI Quality Coding Scale 6 Independent with activity with or without an assistive device 5 Patient requires set up or clean up by helper. Patient completes activity by themselves 4 Supervision or touching assist (CGA). [place] provide cues , steadying assist 3 The helper provides less than half the effort to complete the activity 2 The helper provides more than half the effort to complete the activity 1 Dependent. The helper does all the effort to complete an activity 7 Patient refused to complete or attempt activity 9 The patient did not perform the activity before the current illness or injury 88 Not attempted due to Medical conditions or safety concerns SBA on off toilet and in out chair but requires min assist RLE in out bed Weight Bearing Right Lower Extremity: Right Weight Bearing/Tolerated Left Lower Extremity: Left Full Weight Bearing Gait Training Gait Assistive Device: FWW 150x2 FWW CGA to SBA and assist O2 3 L Exercises Seated Therapy Exercises: Ankle pumps, Sit to stand, Long arc quads, Hip abd/ add Seated Reps: 15 Treatments toileted SBA Assessment Current Status: Good Progress decreased pain, increased funct mob PT Short Term Goals Short Term Goals Time Frame: May 14, 2018 Wheelchair Distance: 150' PT Channel Rebuilder Goals Care Home Goals PT Channel Rebuilder Goals Time Frame: Jun 01, 2018 Transfers (B,C,W/C) (FIM): 6 Sit to Lying (QC): 6 Lying-Sitting on Side/Bed(QC): 6 Sit to Stand (QC): 6 Rollin Roll Left to Right (QC): 6 Chair/Rcf-gx-Lddyr Xfer(QC): 6 Car Transfer (QC): 6 Does the Patient Walk: Yes Gait (FIM): 6 Gait distance (FIM): 3=150 ft Distance: 200' Walk 10 feet (QC): 6 Walk 10ft-Uneven Surface(QC): 6 Walk 50ft with 2 Turns (QC): 6 Walk 150 ft (QC): 6 Gait Level of Assist: 6 Gait Assistive Device: FWW Stairs (FIM): 5 # of Steps: 8 1 Step (curb) (QC): 5 4 Steps (QC): 5 12 Steps (QC): 9 Stairs Level Of Assist: 5 Picking up an Object (QC): 5 PT Plan Treatment/Plan Treatment Plan: Continue Plan of Care Treatment Plan: Bed Mobility, Education, Functional Activity Rick, Functional Strength, Group Therapy, Gait, Safety, Therapeutic Exercise, Transfers Treatment Duration: Jun 01, 2018 Frequency: At least 5 of 7 days/Wk (IRF) Estimated Hrs Per Day: 1.5 hours per day Patient and/or Family Agrees t: Yes Safety Risks/Education Patient Education: Gait Training, Transfer Techniques, Correct Positioning, Disease Process, Safety Issues Teaching Recipient: Patient Teaching Methods: Demonstration, Discussion Response to Teaching: Verbalize Understanding, Return Demonstration, Reinforcement Needed Time/GCodes Time In: 1345 Time Out: 1415 Total Billed Treatment Time: 30 Total Billed Treatment 1,GT20m,EX10m G Codes Necessary: NISA Echevarira DEPLOYMENT SPECIALIST May 17, 2018 14:22
[2018-05-17 18:00] VITALS: BP 125/67
[2018-05-17] MEDS: warFARin 2 MG (COUMADIN) TAB PO SCH (18:39)
[2018-05-17] MEDS: MELATONIN 3 MG TABLET PO PRN (20:07)
[2018-05-18] MEDS: HYDROcodone/APAP 5 MG/325 MG (LORTAB) TAB PO PRN ×5 (03:07→22:28)
[2018-05-18 05:02] LABS: HEMOGLOBIN 8.1 G/DL (11.5-16.0); MEAN PLATELET VOLUME 10.4 FL (7.4-10.4); RED BLOOD COUNT 2.48 10^6/uL (4.35-5.85); RED CELL DISTRIBUTION WIDTH 15.3 % (10.0-14.5); WHITE BLOOD COUNT 5.3 10^3/uL (4.3-11.0)
[2018-05-18 05:17] LABS: INR 1.9 (0.8-1.4)
[2018-05-18] MEDS: FUROSEMIDE 40 MG (LASIX) TAB PO SCH ×2 (05:38→17:10)
[2018-05-18] MEDS: LEVOTHYROXINE 100 MCG (LEVOTHROID) TAB PO SCH (05:38)
[2018-05-18] MEDS: KCL 10 MEQ TAB (MICRO K) PO SCH ×2 (05:38→17:10)
[2018-05-18] MEDS: PANTOPRAZOLE 40 MG (PROTONIX) TAB PO SCH (05:38)
[2018-05-18] MEDS: MULTIVIT W/MINERALS TAB (THERAGRAN M) PO SCH (05:38)
[2018-05-18 05:56] VITALS: BP 125/48
[2018-05-18] MEDS: MEXILETINE 150 MG (MEXITIL) CAPSULE PO SCH ×2 (08:12→22:25)
[2018-05-18] MEDS: DIGOXIN 0.125 MG (LANOXIN) TAB PO SCH (08:12)
[2018-05-18] MEDS: ISOSORBIDE MONONITRATE 30 MG (IMDUR) TAB PO SCH (08:12)
[2018-05-18] MEDS: LORATADINE (CLARITIN) 10 MG TAB PO SCH (08:13)
[2018-05-18] MEDS: SACUBITRIL/VALSARTAN 24/26 MG (ENTRESTO) TABLET PO SCH ×2 (08:13→22:25)
[2018-05-18] MEDS: SENNOSIDES 8.6 MG (SENOKOT) TAB PO SCH ×2 (08:13→19:48)
[2018-05-18] MEDS: CLOPIDOGREL 75 MG (PLAVIX) TABLET PO SCH (08:13)
[2018-05-18 08:15] VITALS: BP 108/45
--- NOTE | 2018-05-18 08:17 | PM & R (SOAP) Progress Note ---
Subjective This was a face to face visit with the patient. Date Seen by Provider: May 18, 2018 Time Seen by Provider: 07:45 Subjective/Events-last exam Patient was seen in her room this AM Current meds and labs reviewed Patient min assist for transfers Date Identified: May 18, 2018 Time Identified: 08:00 Medication Intervention: Current meds continued with therapeutic INR and stable HGB Review of Systems Musculoskeletal: leg pain Neurological: Weakness Objective Physician Exam Last Set of Vital Signs Vital Signs Date Time Temp Pulse Resp B/P (MAP) Pulse Ox O2 Delivery O2 Flow Rate FiO2 05/18/18 08:08 Nasal Cannula 3.00 05/18/18 05:56 99.4 85 16 125/48 (73) 98 Capillary Refill : Less Than 3 Seconds I&O Intake and Output 05/18/18 00:00 Intake Total 1100 ml Balance 1100 ml Intake Oral 1100 ml # Voids 8 # Bowel Movements 1 General: Alert, Oriented X3, Cooperative, No Acute Distress HEENT: Atraumatic, PERRLA, EOMI, Mucous Memb Moist/[place], Other (02 by N/C in place) Neck: Supple, No JVD Lungs: Clear to Auscultation Heart: Regular Rate, Normal S1, Other (Systolic murmur at left sternal border) Abdomen: Normal Bowel Sounds, Soft, No Tenderness Extremities: No Clubbing, Other (trace edema rt ankle) Neuro: Normal Speech, Sensation Intact, Other (Strength LLE 3+/5 RLE 3-/5 Upper limb strength 4/5) Psych/Mental Status: Mental Status NL Results Lab Data Laboratory Tests 05/18/18 04:18: White Blood Count 5.3, Red Blood Count 2.48L, Hemoglobin 8.1L, Hematocrit 26L, Mean Corpuscular Volume 103H, Mean Corpuscular Hemoglobin 33, Mean Corpuscular Hemoglobin Concent 32, Red Cell Distribution Width 15.3H, Platelet Count 163, Mean Platelet Volume 10.4 05/18/18 04:49: Prothrombin Time 22.0H, INR Comment 1.9H Assessment/Plan Assessment and Plan RT fem neck fracture s/p rt HIP replacement DR Ortiz WBAT Postop anemia Severe MV stenosis AVR chronically anticoagulated Mild CAD Nonischemic cardiomyopathy S/P ICD PVD AAA Resp insuff on 02 HTN Plan Continue PT/OT Nect Team Conference 9-19-18 F/U with ortho and cardiology and Hospitalist service prn Co-Morbidities that are continuing to impact the rehab process: (include details ) MARYBEL ROSARIO MD May 18, 2018 08:17
--- NOTE | 2018-05-18 09:41 | Physical Therapy Daily Note ---
PT Daily Note-Current Subjective Agrees to PT. Reports she feels she is getting stronger. Daughter present, reports she is happy with how well she is doing. Pain Numeric Pain Scale: 2 Location: Right Location Body Site: Hip Pain Description: Ache Mental Status Patient Orientation: Person, Place, Time, Situation Transfers Functional [place] Measure 0=Not Assessed/NA 4=Minimal Assistance 1=Total Assistance 5=Supervision or Setup 2=Maximal Assistance 6=Modified [place] 3=Moderate Assistance 7=Complete IndependenceIRFPAI Quality Coding Scale 6 Independent with activity with or without an assistive device 5 Patient requires set up or clean up by helper. Patient completes activity by themselves 4 Supervision or touching assist (CGA). [place] provide cues , steadying assist 3 The helper provides less than half the effort to complete the activity 2 The helper provides more than half the effort to complete the activity 1 Dependent. The helper does all the effort to complete an activity 7 Patient refused to complete or attempt activity 9 The patient did not perform the activity before the current illness or injury 88 Not attempted due to Medical conditions or safety concerns Transfers (B, C, W/C) (FIM): 4 Sit to/from Stand: 4 (CGA) Sit to Lying (QC): 4 (assist with right LE) Skilled cues to sequence transfers. Weight Bearing Right Lower Extremity: Right Weight Bearing/Tolerated Left Lower Extremity: Left Full Weight Bearing Gait Training Does the Patient Walk?: Yes Gait (FIM): 2 Distance (FIM): 7=150-56 ft Distance: 100 ft x 5 reps Gait Assistive Device: FWW slow and antalgic gait noted. Steady without LOB Treatments Monitored oxygen sats throughout treatment. Pt's sats were greater than 94% throughout with oxygen turned down to 2l/min. Nursing notified and her oxygen in her room turned to 2 l/min as well. Nursing to follow and monitor. Pt is only on oxygen at night at home so hopes to wean off during the day. Assessment Current Status: Good Progress Pt making good functional progress. Transfers and gait improving. Pt is motivated. PT Short Term Goals Short Term Goals Time Frame: May 14, 2018 Wheelchair Distance: 150' PT Bulb Brander Goals Usp Goals PT Bulb Brander Goals Time Frame: Jun 01, 2018 Transfers (B,C,W/C) (FIM): 6 Sit to Lying (QC): 6 Lying-Sitting on Side/Bed(QC): 6 Sit to Stand (QC): 6 Rollin Roll Left to Right (QC): 6 Chair/Tfp-pp-[place]pyes Xfer(QC): 6 Car Transfer (QC): 6 Does the Patient Walk: Yes Gait (FIM): 6 Gait distance (FIM): 3=150 ft Distance: 200' Walk 10 feet (QC): 6 Walk 10ft-Uneven Surface(QC): 6 Walk 50ft with 2 Turns (QC): 6 Walk 150 ft (QC): 6 Gait Level of Assist: 6 Gait Assistive Device: FWW Stairs (FIM): 5 # of Steps: 8 1 Step (curb) (QC): 5 4 Steps (QC): 5 12 Steps (QC): 9 Stairs Level Of Assist: 5 Picking up an Object (QC): 5 PT Plan Problem List Problem List: Activity Tolerance, Functional Strength, Safety, Balance, Gait, Transfer, Bed Mobility Treatment/Plan Treatment Plan: Continue Plan of Care Treatment Plan: Bed Mobility, Education, Functional Activity Rick, Functional Strength, Group Therapy, Gait, Safety, Therapeutic Exercise, Transfers Treatment Duration: Jun 01, 2018 Frequency: At least 5 of 7 days/Wk (IRF) Estimated Hrs Per Day: 1.5 hours per day Patient and/or Family Agrees t: Yes Safety Risks/Education Patient Education: Transfer Techniques, Safety Issues Teaching Recipient: Patient Teaching Methods: Demonstration, Discussion Response to Teaching: Reinforcement Needed Discharge Recommendations Therapy D/C Recommendations: Physical Therapy Home Care Time/GCodes Time In: 815 Time Out: 845 Total Billed Treatment Time: 30 Total Billed Treatment visit GT 30 HARDIK NGUYEN PT May 18, 2018 09:41
[2018-05-18 09:42] VITALS: BP 115/46
[2018-05-18] MEDS: meTOproloL SUCCINATE 50 MG (TOPROL XL) TAB PO SCH (09:44)
[2018-05-18] MEDS: rOPINIRole 0.25 MG (REQUIP) TAB PO PRN ×2 (09:47→22:25)
--- NOTE | 2018-05-18 11:53 | Progress Note-Hospitalist ---
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 She has no concerns at this time except "fear of falling." I have reviewed her meds and recent hospital stay. Subjective/Events-last exam Oxygen requirements going from 3 L to 2 L since weaning down since she uses oxygen only as needed at home and she is doing well without Too loose of bowel movements so we'll hold stool softeners Afraid to fall and talks about that a great deal Review of Systems General: Fatigue Objective Exam Vital Signs Vital Signs Date Time Temp Pulse Resp B/P (MAP) Pulse Ox O2 Delivery O2 Flow Rate FiO2 05/18/18 09:59 Nasal Cannula 2.00 05/18/18 09:42 84 115/46 (69) 96 05/18/18 05:56 99.4 16 Capillary Refill : Less Than 3 Seconds General Appearance: No Apparent Distress, WD/WN, Chronically ill, Thin Respiratory: Chest Non Tender, Lungs Clear, Normal Breath Sounds, No Accessory Muscle Use, No Respiratory Distress Cardiovascular: Regular Rate, Rhythm, No Edema, No Gallop, No JVD, No Murmur, Normal Peripheral Pulses Neurologic/Psychiatric: Alert, Oriented x3, No Motor/Sensory Deficits, Normal Mood/Affect Skin: Normal Color, Warm/Dry Results/Procedures Lab Laboratory Tests 05/18/18 04:18 Patient resulted labs reviewed. Assessment/Plan Assessment and Plan Assess & Plan/Chief Complaint Hip fracture with subsequent debility Continue PT Monitor BP and HR Wean O2 Monitor hgb closely No indication for transfusion today IS use Diagnosis/Problems Diagnosis/Problems (1) Closed right femoral fracture Status: Resolved (2) Mitral stenosis Status: Chronic (3) Mixed hyperlipidemia Status: Chronic (4) Abdominal aortic aneurysm Status: Chronic (5) CHF (congestive heart failure) Status: Chronic (6) Hypothyroidism Status: Chronic (7) HTN (hypertension) Status: Chronic (8) PAD (peripheral artery disease) Status: Chronic (9) Chronic anemia Status: Acute (10) Atrial fibrillation, controlled Status: Chronic (11) Aortic valve replaced Status: Chronic (12) Debility Status: Acute (13) Advanced age Status: Chronic (14) Fall Status: Acute Qualifiers: Encounter type: sequela Qualified Codes: W19.XXXS - Unspecified fall, sequela Clinical Quality Measures DVT/VTE Risk/Contraindication: Risk Factor Score Per Nursin RFS Level Per Nursing on Admit: 4+=Very High AURORA CIFUENTES DO May 18, 2018 11:53
--- NOTE | 2018-05-18 13:14 | Cardiology Progress Note ---
Cardiology SOAP Progress Note Subjective: Borderline low blood pressure today. We'll decrease the dose of metoprolol from 50 mg daily to 25 mg daily. Objective: I&O/Vital Signs 05/18/18 05/18/18 05/18/18 05/18/18 05:56 08:08 08:15 09:42 Temp 99.4 Pulse 85 83 84 Resp 16 B/P (MAP) 125/48 (73) 108/45 (66) 115/46 (69) Pulse Ox 98 96 96 O2 Delivery Nasal Cannula Nasal Cannula Nasal Cannula Nasal Cannula O2 Flow Rate 3.00 3.00 3.00 2.00 3.00 05/18/18 09:59 O2 Delivery Nasal Cannula O2 Flow Rate 2.00 05/18/18 00:00 Intake Total 700 ml Balance 700 ml Weight (Pounds): 145 Weight (Ounces): 2.0 Weight (Calculated Kilograms): 65.602920 Constitutional: No appears stated age; AAO x 3; No apparent distress; PERRL, well-developed, well-nourished; No other Respiratory: No accessory muscle use, No respiratory distress, No chest tender , No chest expansion is symmetric; chest is bilaterally symmetric; No lungs clear to percussion; lungs clear to auscultation; No crackles, No rhonchi, No rales, No stridor, No wheezing, No pleural rub, No other Cardiovascular: No regular rate-rhythm; irregularly irregular; No extra beats, No parasternal heave is noted, No JVD, No edema, No bradycardia, No tachycardia , No point of maximal impulse, No cardiac thrills are palpable; S1 and S2; No gallop/S3, No gallop/S4, No diastolic murmur; systolic murmur; No friction rub, No click, No other Gastrointestional: No tender, No soft, No round, No distended, No pulsatile mass, No organomegaly, No guarding, No rebound, No tenderness, No hernia, No mass, No audible bowel sounds, No abnormal bowel sounds, No abdominal bruits, No spleenomegaly, No other Extremities: No normal range of motion, No non-tender, No normal inspection, No pedal edema, No calf tenderness, No normal capillary refill, No pelvis stable , No calf tenderness, No inflammation, No pedal edema, No slow capillary refill , No swelling, No other, No abrasion, No clubbing, No cyanosis, No ecchymosis, No laceration, No no lower extremity edema bilateral, No significant edema; tenderness; No wound Neurologic/Psychiatric: no motor/sensory deficits, alert, normal mood/affect, oriented x 3 Skin: No normal color, No warm/dry, No cyanosis, No cool, No diaphoresis, No damp, No ecchymosis, No jaundice, No mottled, No pallor, No rash, No tattoos/ piercings, No ulcerations, No rash on exposed areas, No ulcerations on exposed areas, No other Results/Procedures: Labs Laboratory Tests 05/18/18 04:18: White Blood Count 5.3, Red Blood Count 2.48L, Hemoglobin 8.1L, Hematocrit 26L, Mean Corpuscular Volume 103H, Mean Corpuscular Hemoglobin 33, Mean Corpuscular Hemoglobin Concent 32, Red Cell Distribution Width 15.3H, Platelet Count 163, Mean Platelet Volume 10.4 05/18/18 04:49: Prothrombin Time 22.0H, INR Comment 1.9H A/P: Assessment/Dx: Hip fracture Coronary artery disease Aortic valve stenosis Mitral regurgitation Plan: Right hip fracture, status post surgical repair done on May 11, 2018, recovering slowly, doing well. Continue to monitor Chest pain nonspecific etiology, no further episodes were reported. Continue to monitor Anemia, slightly worse, continue to monitor History of mild coronary artery disease, nonobstructive disease by cardiac catheterization in September 2014, stress test in December 2016 showing no ischemia, continue to monitor closely Congestive heart failure, chronic left ventricular systolic dysfunction, nonischemic cardiomyopathy, secondary to valvular heart disease. 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 Severe mitral valve stenosis, rheumatic valve, history of severe mitral regurgitation and pulmonary hypertension with estimated PA pressure of 55 mmHg, severely dilated left atrium. She was seen Dr. Page at in the past and she was considered high risk for valve surgery. She is not a candidate for mitral clip surgery due to her severe mitral stenosis, patient was referred for TMVR with Dr. Davila at , she decided to continue with conservative management and will consider the procedure if she become more symptomatic. 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 Last echocardiogram was done in April 2018 and the valve was functioning normally Peripheral vascular disease, patient has venous insufficiency on the right side that required ablation,peripheral angiogram May 2017, intervention to the anterior tibial artery, the wound has healed then developed a new ulcer after a trauma. Did balloon angioplasty to the right anterior tibial artery proximal portion has significant improvement the distal portion is occluded and did not improve, the posterior tibial artery and peroneal arteries were occluded with no collaterals in that area. The right SFA has multiple segment of moderate to severe stenosis, balloon angioplasty to the mid SFA with good results. Abdominal aorta has moderate disease, the left SFA has mild to moderate disease down to the trifurcation. We'll continue with medical therapy, the ulcer on her foot is completely healed. Continue to monitor Carotid stenosis, continue to monitor, followed by heart and vascular care. 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 followed and monitored by heart and vascular care. Hypertension, borderline low blood pressure today. I will decrease metoprolol from 50 mg daily to 25 mg daily. Hyperlipidemia, continue on current medication monitor lipids Thank you for your consultation. Please call me if you have any questions. Zack Orozco MD, FACP, FACC, FSCAI, FHRS, CCDS Interventional Cardiology Cardiac Electrophysiology Vascular Medicine and Endovascular Interventions Cristiano OROZCO MD May 18, 2018 1:14 pm
[2018-05-18 17:09] VITALS: BP 104/44
[2018-05-18] MEDS: warFARin 1 MG (COUMADIN) TAB PO SCH (17:10)
[2018-05-18] MEDS: MELATONIN 3 MG TABLET PO PRN (22:25)
[2018-05-19 05:02] VITALS: BP 102/52
[2018-05-19] MEDS: KCL 10 MEQ TAB (MICRO K) PO SCH ×2 (06:11→17:18)
[2018-05-19] MEDS: FUROSEMIDE 40 MG (LASIX) TAB PO SCH ×2 (06:11→17:18)
[2018-05-19] MEDS: PANTOPRAZOLE 40 MG (PROTONIX) TAB PO SCH (06:11)
[2018-05-19] MEDS: LEVOTHYROXINE 100 MCG (LEVOTHROID) TAB PO SCH (06:11)
[2018-05-19] MEDS: MULTIVIT W/MINERALS TAB (THERAGRAN M) PO SCH (06:11)
[2018-05-19 08:57] VITALS: BP 117/52
[2018-05-19] MEDS: HYDROcodone/APAP 5 MG/325 MG (LORTAB) TAB PO PRN ×3 (08:58→22:56)
[2018-05-19] MEDS: SACUBITRIL/VALSARTAN 24/26 MG (ENTRESTO) TABLET PO SCH ×2 (08:59→20:34)
[2018-05-19] MEDS: DIGOXIN 0.125 MG (LANOXIN) TAB PO SCH (08:59)
[2018-05-19] MEDS: CLOPIDOGREL 75 MG (PLAVIX) TABLET PO SCH (08:59)
[2018-05-19] MEDS: MEXILETINE 150 MG (MEXITIL) CAPSULE PO SCH ×2 (08:59→20:34)
[2018-05-19] MEDS: LORATADINE (CLARITIN) 10 MG TAB PO SCH (08:59)
[2018-05-19] MEDS: ISOSORBIDE MONONITRATE 30 MG (IMDUR) TAB PO SCH (08:59)
[2018-05-19] MEDS: SENNOSIDES 8.6 MG (SENOKOT) TAB PO SCH ×2 (09:00→20:35)
--- NOTE | 2018-05-19 10:31 | Cardiology Progress Note ---
Cardiology SOAP Progress Note Subjective: No cardiac complaints. Objective: I&O/Vital Signs 05/19/18 05/19/18 05/19/18 05:02 08:57 10:03 Temp 98.6 Pulse 86 85 Resp 19 B/P (MAP) 102/52 (69) 117/52 (73) Pulse Ox 91 96 O2 Delivery Nasal Cannula Nasal Cannula Nasal Cannula O2 Flow Rate 2.00 2.00 2.00 05/19/18 00:00 Intake Total 722 ml Balance 722 ml Weight (Pounds): 145 Weight (Ounces): 2.0 Weight (Calculated Kilograms): 65.836915 Constitutional: No appears stated age; AAO x 3; No apparent distress; PERRL, well-developed, well-nourished; No other Respiratory: No accessory muscle use, No respiratory distress, No chest tender , No chest expansion is symmetric; chest is bilaterally symmetric; No lungs clear to percussion; lungs clear to auscultation; No crackles, No rhonchi, No rales, No stridor, No wheezing, No pleural rub, No other Cardiovascular: No regular rate-rhythm; irregularly irregular; No extra beats, No parasternal heave is noted, No JVD, No edema, No bradycardia, No tachycardia , No point of maximal impulse, No cardiac thrills are palpable; S1 and S2; No gallop/S3, No gallop/S4, No diastolic murmur; systolic murmur; No friction rub, No click, No other Gastrointestional: No tender, No soft, No round, No distended, No pulsatile mass, No organomegaly, No guarding, No rebound, No tenderness, No hernia, No mass, No audible bowel sounds, No abnormal bowel sounds, No abdominal bruits, No spleenomegaly, No other Extremities: No normal range of motion, No non-tender, No normal inspection, No pedal edema, No calf tenderness, No normal capillary refill, No pelvis stable , No calf tenderness, No inflammation, No pedal edema, No slow capillary refill , No swelling, No other, No abrasion, No clubbing, No cyanosis, No ecchymosis, No laceration, No no lower extremity edema bilateral, No significant edema; tenderness; No wound Neurologic/Psychiatric: no motor/sensory deficits, alert, normal mood/affect, oriented x 3 Skin: No normal color, No warm/dry, No cyanosis, No cool, No diaphoresis, No damp, No ecchymosis, No jaundice, No mottled, No pallor, No rash, No tattoos/ piercings, No ulcerations, No rash on exposed areas, No ulcerations on exposed areas, No other A/P: Assessment/Dx: Hip fracture Coronary artery disease Aortic valve stenosis Mitral regurgitation Plan: Right hip fracture, status post surgical repair done on May 11, 2018, recovering slowly, doing well. Continue to monitor Chest pain nonspecific etiology, no further episodes were reported. Continue to monitor Anemia, slightly worse, continue to monitor History of mild coronary artery disease, nonobstructive disease by cardiac catheterization in September 2014, stress test in December 2016 showing no ischemia, continue to monitor closely Congestive heart failure, chronic left ventricular systolic dysfunction, nonischemic cardiomyopathy, secondary to valvular heart disease. 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 Severe mitral valve stenosis, rheumatic valve, history of severe mitral regurgitation and pulmonary hypertension with estimated PA pressure of 55 mmHg, severely dilated left atrium. She was seen Dr. Page at in the past and she was considered high risk for valve surgery. She is not a candidate for mitral clip surgery due to her severe mitral stenosis, patient was referred for TMVR with Dr. Davila at , she decided to continue with conservative management and will consider the procedure if she become more symptomatic. 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 Last echocardiogram was done in April 2018 and the valve was functioning normally Peripheral vascular disease, patient has venous insufficiency on the right side that required ablation,peripheral angiogram May 2017, intervention to the anterior tibial artery, the wound has healed then developed a new ulcer after a trauma. Did balloon angioplasty to the right anterior tibial artery proximal portion has significant improvement the distal portion is occluded and did not improve, the posterior tibial artery and peroneal arteries were occluded with no collaterals in that area. The right SFA has multiple segment of moderate to severe stenosis, balloon angioplasty to the mid SFA with good results. Abdominal aorta has moderate disease, the left SFA has mild to moderate disease down to the trifurcation. We'll continue with medical therapy, the ulcer on her foot is completely healed. Continue to monitor Carotid stenosis, continue to monitor, followed by heart and vascular care. 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 followed and monitored by heart and vascular care. Hypertension, borderline low blood pressure yesterday. metoprolol decreased from 50 mg daily to 25 mg daily. Hyperlipidemia, continue on current medication monitor lipids Thank you for your consultation. Please call me if you have any questions. Zack Orozco MD, FACP, FACC, FSCAI, FHRS, CCDS Interventional Cardiology Cardiac Electrophysiology Vascular Medicine and Endovascular Interventions Cristiano OROZCO MD May 19, 2018 10:31 am
--- NOTE | 2018-05-19 12:04 | Progress Note-Hospitalist ---
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 She has no concerns at this time except "fear of falling." I have reviewed her meds and recent hospital stay. Subjective/Events-last exam Patient doing well Right rib pain just started yesterday without recent fall No rash noted Will check x-ray of ribs Bowels are moving No other significant issues reported Review of Systems General: Fatigue Objective Exam Vital Signs Vital Signs Date Time Temp Pulse Resp B/P (MAP) Pulse Ox O2 Delivery O2 Flow Rate FiO2 05/19/18 10:03 Nasal Cannula 2.00 05/19/18 08:57 85 117/52 (73) 96 05/19/18 05:02 98.6 19 Capillary Refill : Less Than 3 Seconds General Appearance: No Apparent Distress, WD/WN, Chronically ill, Thin Respiratory: Chest Non Tender, Lungs Clear, Normal Breath Sounds, No Accessory Muscle Use, No Respiratory Distress Cardiovascular: Regular Rate, Rhythm, No Edema, No Gallop, No JVD, Normal Peripheral Pulses, Systolic Murmur Back: Normal Inspection, No CVA Tenderness, No Vertebral Tenderness Neurologic/Psychiatric: Alert, Oriented x3, No Motor/Sensory Deficits, Normal Mood/Affect Results/Procedures Lab Patient resulted labs reviewed. Assessment/Plan Assessment and Plan Assess & Plan/Chief Complaint Hip fracture with subsequent debility Continue PT Monitor BP and HR Wean O2 Monitor hgb closely No indication for transfusion today IS use Check right rib x-rays Diagnosis/Problems Diagnosis/Problems (1) Rib pain on right side Status: Acute (2) Closed right femoral fracture Status: Resolved (3) Mitral stenosis Status: Chronic (4) Mixed hyperlipidemia Status: Chronic (5) Abdominal aortic aneurysm Status: Chronic (6) CHF (congestive heart failure) Status: Chronic (7) Hypothyroidism Status: Chronic (8) HTN (hypertension) Status: Chronic (9) PAD (peripheral artery disease) Status: Chronic (10) Chronic anemia Status: Acute (11) Atrial fibrillation, controlled Status: Chronic (12) Aortic valve replaced Status: Chronic (13) Debility Status: Acute (14) Advanced age Status: Chronic (15) Fall Status: Acute Qualifiers: Encounter type: sequela Qualified Codes: W19.XXXS - Unspecified fall, sequela Clinical Quality Measures DVT/VTE Risk/Contraindication: Risk Factor Score Per Nursin RFS Level Per Nursing on Admit: 4+=Very High AURORA CIFUENTES DO May 19, 2018 12:04
[2018-05-19] MEDS: rOPINIRole 0.25 MG (REQUIP) TAB PO PRN ×2 (13:48→22:56)
[2018-05-19 16:20] VITALS: BP 98/58
[2018-05-19] MEDS: warFARin 1 MG (COUMADIN) TAB PO SCH (17:18)
--- NOTE | 2018-05-19 17:20 | Diagnostic Imaging Report ---
INDICATION: Rib pain. EXAMINATION: Right ribs at 3:37 p.m. Three views were obtained. FINDINGS: There is no is for a displaced rib fracture. There is no sign of a pneumothorax either. However, in the interval since the prior exam of 05/10/2018, mild right lower lobe pneumonia/atelectasis and a small right pleural effusion have developed. Furthermore, there does appear to be a much larger area of pneumonia/atelectasis and fluid involving the left lung base. The upper lungs, where visualized, are generally clear. The heart is enlarged but similar in size to the prior exam. The sternotomy wires and surgical clips and the left-sided defibrillator device, seen previously, are again visualized and no different. IMPRESSION: There is no evidence for a displaced rib fracture on the right. However, the appearance of the chest has worsened since the prior study as bibasilar pneumonia/atelectasis and bilateral pleural effusions have developed. There is much greater involvement on the left. A followup PA and lateral chest would be recommended for further evaluation. Dictated by: Dictated on workstation # [id number]
[2018-05-19] MEDS ORDERED: RT-ALBUTEROL SULF 2.5 MG/3 ML PRE-MIX VIAL ONE (19:41)
[2018-05-19] MEDS: RT-ALBUTEROL SULF 2.5 MG/3 ML PRE-MIX VIAL INH SCH (20:13)
[2018-05-19 20:26] VITALS: BP 124/62
[2018-05-20 05:00] VITALS: BP 117/54
[2018-05-20] MEDS: METOLAZONE 2.5 MG (ZAROXOLYN) TAB PO SCH (06:10)
[2018-05-20] MEDS: FUROSEMIDE 40 MG (LASIX) TAB PO SCH ×2 (06:10→16:52)
[2018-05-20] MEDS: KCL 10 MEQ TAB (MICRO K) PO SCH ×2 (06:10→16:52)
[2018-05-20] MEDS: PANTOPRAZOLE 40 MG (PROTONIX) TAB PO SCH (06:10)
[2018-05-20] MEDS: LEVOTHYROXINE 100 MCG (LEVOTHROID) TAB PO SCH (06:10)
[2018-05-20] MEDS: MULTIVIT W/MINERALS TAB (THERAGRAN M) PO SCH (06:10)
[2018-05-20] MEDS: CLOPIDOGREL 75 MG (PLAVIX) TABLET PO SCH (08:32)
[2018-05-20] MEDS: SENNOSIDES 8.6 MG (SENOKOT) TAB PO SCH ×2 (08:33→20:36)
[2018-05-20] MEDS: HYDROcodone/APAP 5 MG/325 MG (LORTAB) TAB PO PRN ×3 (08:33→21:42)
[2018-05-20] MEDS: SACUBITRIL/VALSARTAN 24/26 MG (ENTRESTO) TABLET PO SCH ×2 (08:33→20:32)
[2018-05-20] MEDS: ISOSORBIDE MONONITRATE 30 MG (IMDUR) TAB PO SCH (08:33)
[2018-05-20] MEDS: DIGOXIN 0.125 MG (LANOXIN) TAB PO SCH (08:33)
[2018-05-20] MEDS: MEXILETINE 150 MG (MEXITIL) CAPSULE PO SCH ×2 (08:33→20:32)
[2018-05-20] MEDS: LORATADINE (CLARITIN) 10 MG TAB PO SCH (08:33)
--- NOTE | 2018-05-20 09:06 | Cardiac Procedure Note-CS/ASA ---
Pre-Procedure Note Pre-Op Procedure Note H&P Reviewed The H&P was reviewed, patient examined and no changes noted. Date H&P Reviewed: May 20, 2018 Time H&P Reviewed: 09:05 Conscious Sedation Pre-Proced Time Reviewed: 09:05 ASA Class: 3 Airway Mallampati Classification: ([place] appropriate class) I. II. III, IV Lungs Heart ASA score ASA 1: a normal healthy patient ASA 2: a patient with a mild systemic disease (mid diabetes, controlled hypertension, obesity x ASA 3: a patient with a severe systemic disease that limits activity (angina , COPD, prior Myocardial infarction) ASA 4: a patient with an incapacitating disease that is a constant threat to life (CHF, renal failure) ASA 5: a moribund patient not expected to survive 24 hrs. (ruptured aneurysm) ASA 6: a declared brain patient whose organs are being harvested. For emergent operations, add the letter E after the classification Grade 3 Sedation Plan: Analgesia, Amnesia, Plan communicated to team members, Discussed options with patient/fam, Discussed risks with patient/fam Note The patient is an appropriate candidate to undergo the planned procedure, sedation, and anesthesia. The patient immediately re-assessed prior to indication. PRANEETH SHUKLA MD May 20, 2018 09:06
--- NOTE | 2018-05-20 09:33 | Occupational Ther Daily Note ---
OT Current Status-Daily Note Subjective Pt alert, sitting in recliner. No c/o pain. Pt agrees to therapy. Mental Status/Objective Patient Orientation: Person, Place, Time, Situation Functional [place] Measure 0=Not Assessed/NA 4=Minimal Assistance 1=Total Assistance 5=Supervision or Setup 2=Maximal Assistance 6=Modified [place] 3=Moderate Assistance 7=Complete [place] ADL-Treatment Pt ambulated to bathroom using FWW, SBA. Pt completes grooming in sitting position in front of sink. In sitting, pt able to doff socks and LE clothing using AE as to not break precautions. Pt able to doff gown in sitting. Pt completes sponge bath using AE to reach LE and using sink for stability while standing to cleanse buttocks/perineal area, SBA. Set up, pt dons gown in sitting. Set up, pt dons LE clothing using AE as to not break hip precautions, SBA in standing to hike garments over hips. Pt dons socks using AE in sitting. Pt transfers to [facility], using grabbars for stability, SBA. Pt takes increased time to complete ADLs due to low activity tolerance. Functional [place] Measure 0=Not Assessed/NA 4=Minimal Assistance 1=Total Assistance 5=Supervision or Setup 2=Maximal Assistance 6=Modified [place] 3=Moderate Assistance 7=Complete IndependenceIRFPAI Quality Coding Scale 6 Independent with activity with or without an assistive device 5 Patient requires set up or clean up by helper. Patient completes activity by themselves 4 Supervision or touching assist (CGA). [place] provide cues , steadying assist 3 The helper provides less than half the effort to complete the activity 2 The helper provides more than half the effort to complete the activity 1 Dependent. The helper does all the effort to complete an activity 7 Patient refused to complete or attempt activity 9 The patient did not perform the activity before the current illness or injury 88 Not attempted due to Medical conditions or safety concerns Grooming (FIM): 6 Oral Hygiene (QC): 6 Bathing (FIM): 5 Bathing Location: L Arm, R Arm, L Upper Leg, R Upper Leg, L Lower Leg ( including foot), R Lower Leg (including foot), Chest, Abdomen, Buttocks, Perineal Area Shower/Bathe Self (QC): 4 Upper Body (FIM): 5 Upper Body Dressing (QC): 5 Lower Body Dressing (FIM): 5 Lower Body Dressing (QC): 4 On/Off Footwear (QC): 5 Toileting (FIM): 5 Toileting Hygiene (QC): 4 Transfers (B, C, W/C) (FIM): 5 Toilet/Commode Transfer (FIM): 5 Toilet Transfer (QC): 4 Pt ambulated to therapy gym using FWW, needing rest break half way. Pt completed 15 min arm bike/no resistance increasing activity tolerance and UE strength needed for daily functional tasks. Pt completed resistive pegs alternating R/L x30 each increasing fine motor and finger dexterity needed for daily functional activity. Pt ambulated back to room using FWW, needing rest break half way. Pt takes increased amount of time to complete tasks. After therapy, pt sitting in recliner with call light/phone within reach. All needs met in room. OT Short Term Goals Short Term Goals Time Frame: May 21, 2018 Grooming(FIM): 6 Toilet/Commode Transfer(FIM): 5 Additional Short Term Goals: 1-Demonstrate ADL Tasks, 2-Verbalize Understanding , 3-ImproveStrength/Rick 1=Demonstrate adherence to instructed precautions during ADL tasks. 2=Patient will verbalize/demonstrate understanding of assistive devices/ modifications for ADL. 3=Patient will improve strength/tolerance for activity to enable patient to perform ADL's. OT Back Up Machine Operator Goals Shelter Goals Time Frame: Jun 01, 2018 Eating (FIM): 7 (no dentures) Eating (QC): 6 Groomin Oral Hygiene (QC): 6 Bathing(FIM): 6 Shower/Bathe Self (QC): 6 Upper Body Dressing(FIM): 6 Upper Body Dressing (QC): 6 Lower Body Dressing(FIM): 6 Lower Body Dressing (QC): 6 On/Off Footwear (QC): 6 Toileting(FIM): 6 Toileting Hygiene (QC): 6 Toilet/Commode Transfer(FIM): 6 Toilet/Commode Transfer (QC): 6 Shower Transfer(FIM): 5 Additional Goals: 1-Demonstrate ADL Tasks, 2-Verbalize Understanding, 3- ImproveStrength/Rick 1=Demonstrate adherence to instructed precautions during ADL tasks. 2=Patient will verbalize/demonstrate understanding of assistive devices/ modifications for ADL. 3=Patient will improve strength/tolerance for activity to enable patient to perform ADL's. OT Education/Plan Problem List/Assessment Pt would benefit from skilled OT to increase her independence in basic self care to allow her to safely return home Discharge Recommendations Plan/Recommendations: Continue POC Treatment Plan/Plan of Care Patient would benefit from OT for education, treatment and training to promote independence in ADL's, mobility, safety and/or upper extremity function for ADL' s. Plan of Care: ADL Retraining, Functional Mobility, Group Exercise/Act as Ind ( education, exercise, activity tolerance, funct mobility, socialization), UE Funct Exercise/Act, UE Neuromus Re-Ed/Coord Treatment Duration: Jun 01, 2018 Frequency: At least 5 of 7 days/Wk (IRF) Estimated Hrs Per Day: 1.5 hours per day Agreement: Yes Rehab Potential: Good Time/GCodes Start Time: 08:00 Stop Time: 09:30 Total Time Billed (hr/min): 90 Billed Treatment Time 1 visit- ADL 3 (45 min) Ex 3 (45 min) HARDIK NUNEZ May 20, 2018 09:33
[2018-05-20] MEDS: RT-ALBUTEROL SULF 2.5 MG/3 ML PRE-MIX VIAL INH SCH ×3 (09:38→20:24)
[2018-05-20 10:02] LABS: INR 1.6 (0.8-1.4); PROTHROMBIN TIME PATIENT 19.2 SEC (12.2-14.7)
--- NOTE | 2018-05-20 11:00 | Physical Therapy Daily Note ---
PT Daily Note-Current Subjective Pt. states she feels better and stronger but has been told she has some pneumonia Pain Numeric Pain Scale: 0-No Pain Mental Status Patient Orientation: Normal For Age Transfers Functional [place] Measure 0=Not Assessed/NA 4=Minimal Assistance 1=Total Assistance 5=Supervision or Setup 2=Maximal Assistance 6=Modified [place] 3=Moderate Assistance 7=Complete IndependenceIRFPAI Quality Coding Scale 6 Independent with activity with or without an assistive device 5 Patient requires set up or clean up by helper. Patient completes activity by themselves 4 Supervision or touching assist (CGA). [place] provide cues , steadying assist 3 The helper provides less than half the effort to complete the activity 2 The helper provides more than half the effort to complete the activity 1 Dependent. The helper does all the effort to complete an activity 7 Patient refused to complete or attempt activity 9 The patient did not perform the activity before the current illness or injury 88 Not attempted due to Medical conditions or safety concerns Transfers (B, C, W/C) (FIM): 5 Scootin Rollin Supine to/from Sit: 5 Sit to/from Stand: 5 Weight Bearing Right Lower Extremity: Right Weight Bearing/Tolerated Left Lower Extremity: Left Full Weight Bearing Gait Training Does the Patient Walk?: Yes Gait (FIM): 5 Distance (FIM): 3=150 ft (170x2,50) Gait Level of Assist: 5 Gait Persons Needed: 1 Gait Assistive Device: FWW step to gait pattern, instructed in equal step length this date, some improvement note Stair Training Stair Training: Handrails/: 2 handrails Stairs (FIM): 2 #of Steps: 4 Stairs: Pattern: Step to Level of Assist: 4 Exercises Supine Ex: Ankle pumps, Quad Set, Rolling, Glut sets, Heel Slides, Short Arc Quads, Scooting, Straight leg raise (x3 ea), Hip abd/add Supine Reps: 20 Seated Therapy Exercises: Ankle pumps, Sit to stand, Long arc quads, Hip abd/ add Seated Reps: 15 Assessment Current Status: Good Progress assist for O2 at 2 L with sats >90% PT Short Term Goals Short Term Goals Time Frame: May 14, 2018 Wheelchair Distance: 150' PT Steam And Power Superintendent Goals Steam And Power Superintendent Goals PT Steam And Power Superintendent Goals Time Frame: Jun 01, 2018 Transfers (B,C,W/C) (FIM): 6 Sit to Lying (QC): 6 Lying-Sitting on Side/Bed(QC): 6 Sit to Stand (QC): 6 Rollin Roll Left to Right (QC): 6 Chair/[id number]-Qsbqt Xfer(QC): 6 Car Transfer (QC): 6 Does the Patient Walk: Yes Gait (FIM): 6 Gait distance (FIM): 3=150 ft Distance: 200' Walk 10 feet (QC): 6 Walk 10ft-Uneven Surface(QC): 6 Walk 50ft with 2 Turns (QC): 6 Walk 150 ft (QC): 6 Gait Level of Assist: 6 Gait Assistive Device: FWW Stairs (FIM): 5 # of Steps: 8 1 Step (curb) (QC): 5 4 Steps (QC): 5 12 Steps (QC): 9 Stairs Level Of Assist: 5 Picking up an Object (QC): 5 PT Plan Treatment/Plan Treatment Plan: Continue Plan of Care Treatment Plan: Bed Mobility, Education, Functional Activity Rick, Functional Strength, Group Therapy, Gait, Safety, Therapeutic Exercise, Transfers Treatment Duration: Jun 01, 2018 Frequency: At least 5 of 7 days/Wk (IRF) Estimated Hrs Per Day: 1.5 hours per day Patient and/or Family Agrees t: Yes Safety Risks/Education Patient Education: Gait Training, Transfer Techniques, Steps, Correct Positioning, Safety Issues Teaching Recipient: Patient Teaching Methods: Demonstration, Discussion Response to Teaching: Verbalize Understanding, Return Demonstration Time/GCodes Time In: 1000 Time Out: 1100 Total Billed Treatment Time: 60 Total Billed Treatment 1,Ex25m,FA20m,GT15 G Codes Necessary: NISA Echevarria WOOD STOCK BLANK HANDLER May 20, 2018 11:00
--- NOTE | 2018-05-20 11:04 | Cardiology Progress Note ---
Subjective Date Seen by Provider: May 20, 2018 Time Seen by Provider: 08:55 Subjective/Events-last exam Patient is in with PT, no new complaints. Denies any chest pain. Objective-Cardiology Exam Last Set of Vital Signs Vital Signs 05/20/18 05/20/18 05:00 09:38 Temp 99.4 Pulse 87 Resp 18 B/P (MAP) 117/54 (75) Pulse Ox 99 O2 Delivery Nasal Cannula O2 Flow Rate 2.00 Capillary Refill : Less Than 3 Seconds I&O Intake and Output 05/20/18 00:00 Intake Total 900 ml Balance 900 ml Intake Oral 900 ml # Voids 7 General: Alert, Oriented X3, Cooperative, No Acute Distress HEENT: Atraumatic, PERRLA, EOMI, Mucous Memb Moist/[place], Other (02 by N/C in place) Neck: Supple, No JVD Lungs: Clear to Auscultation Heart: Regular Rate, Normal S1, Other (Systolic murmur at left sternal border) Abdomen: Normal Bowel Sounds, Soft, No Tenderness Extremities: No Clubbing, Other (trace edema rt ankle) Neuro: Normal Speech, Sensation Intact, Other (Strength LLE 3+/5 RLE 3-/5 Upper limb strength 4/5) Psych/Mental Status: Mental Status NL A/P-Cardiology Admission Diagnosis Hip fracture Coronary artery disease Aortic valve stenosis Mitral regurgitation Assessment/Plan Right hip fracture, status post surgical repair done on May 11, 2018, recovering slowly, doing well. Continue to monitor Chest pain nonspecific etiology, no further episodes were reported. Continue to monitor Anemia, slightly worse, continue to monitor Questionable pneumonia on rib xray, I will evaluate CXR. History of mild coronary artery disease, nonobstructive disease by cardiac catheterization in September 2014, stress test in December 2016 showing no ischemia, continue to monitor closely Congestive heart failure, chronic left ventricular systolic dysfunction, nonischemic cardiomyopathy, secondary to valvular heart disease. Has history of ICD implanted LOW VISION THERAPIST-D done in August 2012. Severe mitral valve stenosis, rheumatic valve, history of severe mitral regurgitation and pulmonary hypertension with estimated PA pressure of 55 mmHg, severely dilated left atrium. She was seen Dr. Page at in the past and she was considered high risk for valve surgery. She is not a candidate for mitral clip surgery due to her severe mitral stenosis, patient was referred for TMVR with Dr. Davila at , she decided to continue with conservative management and will consider the procedure if she become more symptomatic. 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 Last echocardiogram was done in April 2018 and the valve was functioning normally Subtherapeutic INR, increase coumadin and continue to monitor. Peripheral vascular disease, patient has venous insufficiency on the right side that required ablation,peripheral angiogram May 2017, intervention to the anterior tibial artery, the wound has healed then developed a new ulcer after a trauma. Did balloon angioplasty to the right anterior tibial artery proximal portion has significant improvement the distal portion is occluded and did not improve, the posterior tibial artery and peroneal arteries were occluded with no collaterals in that area. The right SFA has multiple segment of moderate to severe stenosis, balloon angioplasty to the mid SFA with good results. Abdominal aorta has moderate disease, the left SFA has mild to moderate disease down to the trifurcation. We'll continue with medical therapy, the ulcer on her foot is completely healed. Continue to monitor Carotid stenosis, continue to monitor, followed by heart and vascular care. 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 followed and monitored by heart and vascular care. Hypertension, restart home medications and monitor Hyperlipidemia, continue on current medication monitor lipids Clinical Quality Measures DVT/VTE Risk/Contraindication: Risk Factor Score Per Nursin RFS Level Per Nursing on Admit: 4+=Very High THANH LAWTON May 20, 2018 11:03
[2018-05-20] MEDS ORDERED: warFARin 2 MG (COUMADIN) TAB PO NR (11:30)
--- NOTE | 2018-05-20 11:40 | Cardiology Progress Note ---
Subjective Date Seen by Provider: May 20, 2018 Time Seen by Provider: 11:38 Subjective/Events-last exam Patient was seen while exercising, reporting improvement in her symptoms. Feeling better. Review of Systems General: No Chills, No Night Sweats, No Fatigue, No Malaise, No Appetite, No Other HEENT: No Head Aches, No Visual Changes, No Eye Pain, No Ear Pain, No Dysphasia , No Sinus Congestion, No Post Nasal Drip, No Sore Throat, No Other Pulmonary: No Dyspnea, No Cough, No Pleuritic Chest Pain, No Other Cardiovascular: No: Chest Pain, Palpitations, Orthopnea, Paroxysmal Noc. Dyspnea, Edema, Lt Headedness, Other Objective-Cardiology Exam Last Set of Vital Signs Vital Signs 05/20/18 05/20/18 05:00 09:38 Temp 99.4 Pulse 87 Resp 18 B/P (MAP) 117/54 (75) Pulse Ox 99 O2 Delivery Nasal Cannula O2 Flow Rate 2.00 Capillary Refill : Less Than 3 Seconds I&O Intake and Output 05/20/18 00:00 Intake Total 900 ml Balance 900 ml Intake Oral 900 ml # Voids 7 General: Alert, Oriented X3, Cooperative, No Acute Distress HEENT: Atraumatic, PERRLA, EOMI, Mucous Memb Moist/[place], Other (02 by N/C in place) Neck: Supple, No JVD Lungs: Clear to Auscultation Heart: Regular Rate, Normal S1, Other (Systolic murmur at left sternal border) Abdomen: Normal Bowel Sounds, Soft, No Tenderness Extremities: No Clubbing, Other (trace edema rt ankle) Neuro: Normal Speech, Sensation Intact, Other (Strength LLE 3+/5 RLE 3-/5 Upper limb strength 4/5) Psych/Mental Status: Mental Status NL Results Lab Laboratory Tests Test 05/20/18 09:25 Range/Units Prothrombin Time 19.2 H 12.2-14.7 SEC INR Comment 1.6 H 0.8-1.4 A/P-Cardiology Admission Diagnosis Hip fracture Coronary artery disease Aortic valve stenosis Mitral regurgitation Assessment/Plan Right hip fracture, status post surgical repair done on May 11, 2018, recovering slowly, doing well. Continue to monitor Chest pain nonspecific etiology, no further episodes were reported. Continue to monitor Anemia, slightly worse, continue to monitor Questionable pneumonia on rib xray, I will evaluate CXR. History of mild coronary artery disease, nonobstructive disease by cardiac catheterization in September 2014, stress test in December 2016 showing no ischemia, continue to monitor closely Congestive heart failure, chronic left ventricular systolic dysfunction, nonischemic cardiomyopathy, secondary to valvular heart disease. Has history of ICD implanted CHINCHILLA FARMER-D done in August 2012. Severe mitral valve stenosis, rheumatic valve, history of severe mitral regurgitation and pulmonary hypertension with estimated PA pressure of 55 mmHg, severely dilated left atrium. She was seen Dr. Page at in the past and she was considered high risk for valve surgery. She is not a candidate for mitral clip surgery due to her severe mitral stenosis, patient was referred for TMVR with Dr. Davila at , she decided to continue with conservative management and will consider the procedure if she become more symptomatic. 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 Last echocardiogram was done in April 2018 and the valve was functioning normally Subtherapeutic INR, increase coumadin and continue to monitor. Peripheral vascular disease, patient has venous insufficiency on the right side that required ablation,peripheral angiogram May 2017, intervention to the anterior tibial artery, the wound has healed then developed a new ulcer after a trauma. Did balloon angioplasty to the right anterior tibial artery proximal portion has significant improvement the distal portion is occluded and did not improve, the posterior tibial artery and peroneal arteries were occluded with no collaterals in that area. The right SFA has multiple segment of moderate to severe stenosis, balloon angioplasty to the mid SFA with good results. Abdominal aorta has moderate disease, the left SFA has mild to moderate disease down to the trifurcation. We'll continue with medical therapy, the ulcer on her foot is completely healed. Continue to monitor Carotid stenosis, continue to monitor, followed by heart and vascular care. 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 followed and monitored by heart and vascular care. Hypertension, restart home medications and monitor Hyperlipidemia, continue on current medication monitor lipids Clinical Quality Measures DVT/VTE Risk/Contraindication: Risk Factor Score Per Nursin RFS Level Per Nursing on Admit: 4+=Very High PRANEETH SHUKLA MD May 20, 2018 11:40
--- NOTE | 2018-05-20 12:01 | Physical Therapy Daily Note ---
PT Daily Note-Current Subjective Agrees to Rx, wants to lay down after Pain Numeric Pain Scale: 0-No Pain Mental Status Patient Orientation: Normal For Age Transfers Functional [place] Measure 0=Not Assessed/NA 4=Minimal Assistance 1=Total Assistance 5=Supervision or Setup 2=Maximal Assistance 6=Modified [place] 3=Moderate Assistance 7=Complete IndependenceIRFPAI Quality Coding Scale 6 Independent with activity with or without an assistive device 5 Patient requires set up or clean up by helper. Patient completes activity by themselves 4 Supervision or touching assist (CGA). Protection provide cues , steadying assist 3 The helper provides less than half the effort to complete the activity 2 The helper provides more than half the effort to complete the activity 1 Dependent. The helper does all the effort to complete an activity 7 Patient refused to complete or attempt activity 9 The patient did not perform the activity before the current illness or injury 88 Not attempted due to Medical conditions or safety concerns in out bed, on off toilet and in out chair all SBA to Mod I Weight Bearing Right Lower Extremity: Right Weight Bearing/Tolerated Left Lower Extremity: Left Full Weight Bearing Gait Training Does the Patient Walk?: Yes Gait Assistive Device: FWW 175x2 SBA, slow, better equalized step length Exercises Standing: Hip Abduction (right only), Hamstring curls (right only), Heel/toe raises, Marching (right only), Mini squats Standing Reps: 15 Treatments toilted SBA Assessment Current Status: Good Progress no noted SOB PT Short Term Goals Short Term Goals Time Frame: May 14, 2018 Wheelchair Distance: 150' PT Skilled Nursing Goals Workers Compensation Specialist Goals PT Skilled Nursing Goals Time Frame: Jun 01, 2018 Transfers (B,C,W/C) (FIM): 6 Sit to Lying (QC): 6 Lying-Sitting on Side/Bed(QC): 6 Sit to Stand (QC): 6 Rollin Roll Left to Right (QC): 6 Chair/Ddc-rs-Ynjds Xfer(QC): 6 Car Transfer (QC): 6 Does the Patient Walk: Yes Gait (FIM): 6 Gait distance (FIM): 3=150 ft Distance: 200' Walk 10 feet (QC): 6 Walk 10ft-Uneven Surface(QC): 6 Walk 50ft with 2 Turns (QC): 6 Walk 150 ft (QC): 6 Gait Level of Assist: 6 Gait Assistive Device: FWW Stairs (FIM): 5 # of Steps: 8 1 Step (curb) (QC): 5 4 Steps (QC): 5 12 Steps (QC): 9 Stairs Level Of Assist: 5 Picking up an Object (QC): 5 PT Plan Treatment/Plan Treatment Plan: Continue Plan of Care Treatment Plan: Bed Mobility, Education, Functional Activity Rick, Functional Strength, Group Therapy, Gait, Safety, Therapeutic Exercise, Transfers Treatment Duration: Jun 01, 2018 Frequency: At least 5 of 7 days/Wk (IRF) Estimated Hrs Per Day: 1.5 hours per day Patient and/or Family Agrees t: Yes Safety Risks/Education Patient Education: Gait Training, Transfer Techniques, Correct Positioning, Disease Process, Safety Issues Teaching Recipient: Patient Teaching Methods: Demonstration, Discussion Response to Teaching: Verbalize Understanding, Return Demonstration, Reinforcement Needed Time/GCodes Time In: 1130 Time Out: 1200 Total Billed Treatment Time: 30 Total Billed Treatment 1,GT15m,EX15m G Codes Necessary: NISA Echevarria HEEL MOLDER May 20, 2018 12:01
--- NOTE | 2018-05-20 13:35 | PM & R (SOAP) Progress Note ---
Subjective This was a face to face visit with the patient. Date Seen by Provider: May 20, 2018 Time Seen by Provider: 12:55 Subjective/Events-last exam Patient was seen in her room this afternoon Patient SBA for transfers Date Identified: May 20, 2018 Time Identified: 13:00 Medication Intervention: INR noted Coumadin dose adjusted Review of Systems Musculoskeletal: leg pain Neurological: Weakness Objective Physician Exam Last Set of Vital Signs Vital Signs Date Time Temp Pulse Resp B/P (MAP) Pulse Ox O2 Delivery O2 Flow Rate FiO2 05/20/18 09:38 99 Nasal Cannula 2.00 05/20/18 05:00 99.4 87 18 117/54 (75) Capillary Refill : Less Than 3 Seconds I&O Intake and Output 05/20/18 00:00 Intake Total 900 ml Balance 900 ml Intake Oral 900 ml # Voids 7 General: Alert, Oriented X3, Cooperative, No Acute Distress HEENT: Atraumatic, PERRLA, EOMI, Mucous Memb Moist/[place], Other (02 by N/C in place) Neck: Supple, No JVD Lungs: Clear to Auscultation Heart: Regular Rate, Normal S1, Other (Systolic murmur at left sternal border) Abdomen: Normal Bowel Sounds, Soft, No Tenderness Extremities: No Clubbing, Other (trace edema rt ankle) Neuro: Normal Speech, Sensation Intact, Other (Strength LLE 3+/5 RLE 3-/5 Upper limb strength 4/5) Psych/Mental Status: Mental Status NL Results Lab Data Laboratory Tests 05/18/18 04:18: White Blood Count 5.3, Red Blood Count 2.48L, Hemoglobin 8.1L, Hematocrit 26L, Mean Corpuscular Volume 103H, Mean Corpuscular Hemoglobin 33, Mean Corpuscular Hemoglobin Concent 32, Red Cell Distribution Width 15.3H, Platelet Count 163, Mean Platelet Volume 10.4 05/18/18 04:49: Prothrombin Time 22.0H, INR Comment 1.9H 05/20/18 09:25: Prothrombin Time 19.2H, INR Comment 1.6H Assessment/Plan Assessment and Plan RT fem neck fracture s/p RT HIP replacement DR Ortiz WBAT Postop anemia Severe MV stenosis AVR chronicall y anticoagulated Mild CAD Nonischemic cardiomyopathy S/P ICD PVD AAA Resp insuff on 02 HTN Plan Continue PT/OT Next Team Conference 05-22-18 Adjuste Coumadin dosage for subtherapeutic INR Co-Morbidities that are continuing to impact the rehab process: (include details ) MARYBEL ROSARIO MD May 20, 2018 13:35
[2018-05-20 16:20] LABS: BASOPHILS % (AUTO) 1 % (0-10); EOSINOPHILS # (AUTO) 0.2 10^3/uL (0.0-0.3); EOSINOPHILS % (AUTO) 3 % (0-10); HEMATOCRIT 28 % (35-52); HEMOGLOBIN 8.8 G/DL (11.5-16.0); LYMPHOCYTES # (AUTO) 0.9 X 10^3 (1.0-4.0); LYMPHOCYTES % (AUTO) 16 % (12-44); MEAN CORPUSCULAR HEMOGLOBIN 32 PG (25-34); MEAN CORPUSCULAR HGB CONC 32 G/DL (32-36); MEAN CORPUSCULAR VOLUME 103 FL (80-99); MEAN PLATELET VOLUME 9.6 FL (7.4-10.4); MONOCYTES # (AUTO) 0.7 X 10^3 (0.0-1.0); MONOCYTES % (AUTO) 11 % (0-12); NEUTROPHILS # (AUTO) 4.1 X 10^3 (1.8-7.8); NEUTROPHILS % (AUTO) 69 % (42-75); PLATELET COUNT 261 10^3/uL (130-400); RED BLOOD COUNT 2.71 10^6/uL (4.35-5.85); RED CELL DISTRIBUTION WIDTH 15.4 % (10.0-14.5); WHITE BLOOD COUNT 5.8 10^3/uL (4.3-11.0)
[2018-05-20 16:34] LABS: CALCIUM 9.3 MG/DL (8.5-10.1); CREATININE SERUM 1.1 MG/DL (0.60-1.30); POTASSIUM 4.5 MMOL/L (3.6-5.0)
[2018-05-20] MEDS ORDERED: RT-ALBUTEROL SULF 2.5 MG/3 ML PRE-MIX VIAL INH PRN (17:00)
[2018-05-20 17:04] VITALS: BP 104/45
--- NOTE | 2018-05-20 17:34 | Diagnostic Imaging Report ---
INDICATION: Cough. Hypoxia. Right rib pain. Recent fall. COMPARISON: 05/10/2018 FINDINGS: Single frontal radiographic view of the chest was obtained and demonstrates persistent severe cardiomegaly. There is also mild to moderate prominence of pulmonary vasculature and mild diffuse prominence of pulmonary interstitium. Left lung base partially obscured, but there does appear to be patchy airspace disease within the left base. Right lung is relatively clear. No large effusion is seen on the right. No pneumothorax is identified on either side. Left sided AICD, sternotomy wires, and calcified aortic atherosclerosis are noted. Bony structures show no acute abnormalities. IMPRESSION: 1. Severe cardiomegaly with pulmonary vascular congestion and probable mild interstitial pulmonary edema. 2. Alveolar opacities in left base may be on the basis of superimposed pneumonia or atelectasis. Followup is recommended. Dictated by: Dictated on workstation # [id number]
[2018-05-20] MEDS: warFARin 2 MG (COUMADIN) TAB PO SCH (17:37)
--- NOTE | 2018-05-20 17:58 | Progress Note-Standard ---
Standard Progress Note Progress Notes/Assess & Plan Date Seen by Provider: May 20, 2018 Time Seen by Provider: 17:57 Progress/Assessment & Plan No complaints Vital Signs Date Time Temp Pulse Resp B/P (MAP) Pulse Ox O2 Delivery O2 Flow Rate FiO2 05/15/18 05:41 99.1 85 16 101/55 (70) 98 Nasal Cannula 7.00 05/14/18 21:00 100 Nasal Cannula 3.00 05/14/18 15:44 99.4 91 14 116/69 (85) 100 Nasal Cannula 3.00 05/14/18 15:12 Nasal Cannula 3.00 05/14/18 14:59 80 98 Nasal Cannula 3.00 05/14/18 14:52 Nasal Cannula 3.00 05/14/18 12:09 98.6 85 18 108/56 (73) 100 Nasal Cannula 3.00 I & O 05/15/18 07:00 Intake Total 940 ml Output Total 600 ml Balance 340 ml Laboratory Tests Test 05/15/18 05:50 Range/Units White Blood Count 5.4 4.3-11.0 10^3/uL Red Blood Count 2.44 L 4.35-5.85 10^6/uL Hemoglobin 7.9 L 11.5-16.0 G/DL Hematocrit 25 L 35-52 % Mean Corpuscular Volume 101 H 80-99 FL Mean Corpuscular Hemoglobin 32 25-34 PG Mean Corpuscular Hemoglobin Concent 32 32-36 G/DL Red Cell Distribution Width 15.8 H 10.0-14.5 % Platelet Count 107 L 130-400 10^3/uL Mean Platelet Volume 10.9 H 7.4-10.4 FL Prothrombin Time 27.1 H 12.2-14.7 SEC INR Comment 2.5 H 0.8-1.4 R hip dressing intact. Dry, but sanguinous DC on clothing no calf tenderness. Neg Jennifer's s/p R hip bipolar continue PT/OT Final Diagnosis feeling better Vital Signs Date Time Temp Pulse Resp B/P (MAP) Pulse Ox O2 Delivery O2 Flow Rate FiO2 05/20/18 17:04 98.4 85 20 104/45 (64) 97 Nasal Cannula 2.00 05/20/18 16:39 97 Nasal Cannula 2.00 05/20/18 09:38 99 Nasal Cannula 2.00 05/20/18 08:51 Nasal Cannula 2.00 05/20/18 05:00 99.4 87 18 117/54 (75) 99 Nasal Cannula 2.00 05/19/18 22:57 99.9 05/19/18 21:00 Nasal Cannula 2.00 05/19/18 21:00 Nasal Cannula 2.00 05/19/18 20:26 88 124/62 (82) 05/19/18 20:14 97 Nasal Cannula 3.00 I & O 05/20/18 07:00 Intake Total 940 ml Balance 940 ml Laboratory Tests Test 05/20/18 09:25 05/20/18 16:10 Range/Units Prothrombin Time 19.2 H 12.2-14.7 SEC INR Comment 1.6 H 0.8-1.4 White Blood Count 5.8 4.3-11.0 10^3/uL Red Blood Count 2.71 L 4.35-5.85 10^6/uL Hemoglobin 8.8 L 11.5-16.0 G/DL Hematocrit 28 L 35-52 % Mean Corpuscular Volume 103 H 80-99 FL Mean Corpuscular Hemoglobin 32 25-34 PG Mean Corpuscular Hemoglobin Concent 32 32-36 G/DL Red Cell Distribution Width 15.4 H 10.0-14.5 % Platelet Count 261 130-400 10^3/uL Mean Platelet Volume 9.6 7.4-10.4 FL Neutrophils (%) (Auto) 69 42-75 % Lymphocytes (%) (Auto) 16 12-44 % Monocytes (%) (Auto) 11 0-12 % Eosinophils (%) (Auto) 3 0-10 % Basophils (%) (Auto) 1 0-10 % Neutrophils # (Auto) 4.1 1.8-7.8 X 10^3 Lymphocytes # (Auto) 0.9 L 1.0-4.0 X 10^3 Monocytes # (Auto) 0.7 0.0-1.0 X 10^3 Eosinophils # (Auto) 0.2 0.0-0.3 10^3/uL Basophils # (Auto) 0.0 0.0-0.1 10^3/uL Sodium Level 137 135-145 MMOL/L Potassium Level 4.5 3.6-5.0 MMOL/L Chloride Level 99 98-107 MMOL/L Carbon Dioxide Level 30 21-32 MMOL/L Anion Gap 8 5-14 MMOL/L Blood Urea Nitrogen 23 H 7-18 MG/DL Creatinine 1.10 0.60-1.30 MG/DL Estimat Glomerular Filtration Rate 48 BUN/Creatinine Ratio 21 Glucose Level 86 70-105 MG/DL Calcium Level 9.3 8.5-10.1 MG/DL RLE--scant DC from incision No calf tenderness. Neg Jennifer's s/p R hip bipolar continue PT/OT ARCENIO GODOY MD May 20, 2018 17:58
[2018-05-20] MEDS ORDERED: FUROSEMIDE 40 MG/4 ML INJ (LASIX) IVP NR (18:45)
[2018-05-20] MEDS ORDERED: FUROSEMIDE 40 MG (LASIX) TAB PO NR (19:59)
[2018-05-20] MEDS: rOPINIRole 0.25 MG (REQUIP) TAB PO PRN (20:36)
[2018-05-20] MEDS: MELATONIN 3 MG TABLET PO PRN (23:54)
[2018-05-21] MEDS: HYDROcodone/APAP 5 MG/325 MG (LORTAB) TAB PO PRN ×4 (02:08→21:15)
[2018-05-21 06:00] VITALS: BP 105/53
[2018-05-21] MEDS: LEVOTHYROXINE 100 MCG (LEVOTHROID) TAB PO SCH (07:01)
[2018-05-21] MEDS: PANTOPRAZOLE 40 MG (PROTONIX) TAB PO SCH (07:01)
[2018-05-21] MEDS: MULTIVIT W/MINERALS TAB (THERAGRAN M) PO SCH (07:01)
[2018-05-21] MEDS: KCL 10 MEQ TAB (MICRO K) PO SCH ×2 (07:01→16:13)
[2018-05-21] MEDS: FUROSEMIDE 40 MG (LASIX) TAB PO SCH ×2 (07:01→16:13)
--- NOTE | 2018-05-21 08:19 | Occupational Ther Daily Note ---
OT Current Status-Daily Note Subjective Pt alert,lying in bed. No c/o pain. Family present in room. Mental Status/Objective Patient Orientation: Person, Place, Time, Situation Functional [place] Measure 0=Not Assessed/NA 4=Minimal Assistance 1=Total Assistance 5=Supervision or Setup 2=Maximal Assistance 6=Modified [place] 3=Moderate Assistance 7=Complete [place] ADL-Treatment Min A, pt went from supine to EOB using raised HOB and bed rails for stability. SBA, Pt transferred to [facility] using FWW for stability. SBA using FWW for stability for toilet hygiene and clothing manipulation. Pt ambulated to bathroom using FWW , SBA. In sitting, pt able to doff socks and LE dressing using AE to reach LE as to not break hip precautions. In sitting, pt able to doff gown. SBA, pt uses FWW and grabbars for stability to transfer to shower chair. Pt completes shower using hand held shower, long handled sponge, and shower chair by self. Pt transfers to chair using grabbars, SBA. In sitting, clothing set up, pt able to don button up shirt by self. Set up, pt dons LE dressing by self using AE, needing verbal cue on technique for AE, SBA to stand to hike garments over hips. Pt able to don socks by self using AE. Pt completes grooming in sitting by self. Pt takes increased time to complete ADLs. Pt verbalizes and demonstrates understanding of hip precautions. Functional [place] Measure 0=Not Assessed/NA 4=Minimal Assistance 1=Total Assistance 5=Supervision or Setup 2=Maximal Assistance 6=Modified [place] 3=Moderate Assistance 7=Complete IndependenceIRFPAI Quality Coding Scale 6 Independent with activity with or without an assistive device 5 Patient requires set up or clean up by helper. Patient completes activity by themselves 4 Supervision or touching assist (CGA). [place] provide cues , steadying assist 3 The helper provides less than half the effort to complete the activity 2 The helper provides more than half the effort to complete the activity 1 Dependent. The helper does all the effort to complete an activity 7 Patient refused to complete or attempt activity 9 The patient did not perform the activity before the current illness or injury 88 Not attempted due to Medical conditions or safety concerns Grooming (FIM): 6 Oral Hygiene (QC): 6 Bathing (FIM): 6 Bathing Location: L Arm, R Arm, L Upper Leg, R Upper Leg, L Lower Leg ( including foot), R Lower Leg (including foot), Chest, Abdomen, Buttocks, Perineal Area Shower/Bathe Self (QC): 6 Upper Body (FIM): 5 Upper Body Dressing (QC): 5 Lower Body Dressing (FIM): 5 Lower Body Dressing (QC): 4 On/Off Footwear (QC): 5 Toileting (FIM): 5 Toileting Hygiene (QC): 4 Transfers (B, C, W/C) (FIM): 5 Toilet/Commode Transfer (FIM): 5 Toilet Transfer (QC): 4 Shower Transfer(FIM): 5 Pt ambulated to therapy gym using FWW, needing rest break half way. Pt completed arm bike 15 min/no resistance increasing activity tolerance and UE strength needed for daily functional activity. Pt completed resistive clothes pins increasing finger dexterity and fine motor skills needed for daily functional tasks. Pt ambulated back to room using FWW, needing no rest breaks. After therapy, pt sitting in recliner with call light/phone within reach. All needs met in room. Education OT Patient Education: Use of adapted equipment Teaching Methods: Discussion Response to Teaching: Verbalize Understanding, Return Demonstration OT Short Term Goals Short Term Goals Time Frame: May 21, 2018 Grooming(FIM): 6 Toilet/Commode Transfer(FIM): 5 Additional Short Term Goals: 1-Demonstrate ADL Tasks, 2-Verbalize Understanding , 3-ImproveStrength/Rick 1=Demonstrate adherence to instructed precautions during ADL tasks. 2=Patient will verbalize/demonstrate understanding of assistive devices/ modifications for ADL. 3=Patient will improve strength/tolerance for activity to enable patient to perform ADL's. OT Senior Living Goals Accounts Collector Goals Time Frame: Jun 01, 2018 Eating (FIM): 7 (no dentures) Eating (QC): 6 Groomin Oral Hygiene (QC): 6 Bathing(FIM): 6 Shower/Bathe Self (QC): 6 Upper Body Dressing(FIM): 6 Upper Body Dressing (QC): 6 Lower Body Dressing(FIM): 6 Lower Body Dressing (QC): 6 On/Off Footwear (QC): 6 Toileting(FIM): 6 Toileting Hygiene (QC): 6 Toilet/Commode Transfer(FIM): 6 Toilet/Commode Transfer (QC): 6 Shower Transfer(FIM): 5 Additional Goals: 1-Demonstrate ADL Tasks, 2-Verbalize Understanding, 3- ImproveStrength/Rick 1=Demonstrate adherence to instructed precautions during ADL tasks. 2=Patient will verbalize/demonstrate understanding of assistive devices/ modifications for ADL. 3=Patient will improve strength/tolerance for activity to enable patient to perform ADL's. OT Education/Plan Problem List/Assessment Pt would benefit from skilled OT to increase her independence in basic self care to allow her to safely return home Discharge Recommendations Plan/Recommendations: Continue POC Treatment Plan/Plan of Care Patient would benefit from OT for education, treatment and training to promote independence in ADL's, mobility, safety and/or upper extremity function for ADL' s. Plan of Care: ADL Retraining, Functional Mobility, Group Exercise/Act as Ind ( education, exercise, activity tolerance, funct mobility, socialization), UE Funct Exercise/Act, UE Neuromus Re-Ed/Coord Treatment Duration: Jun 01, 2018 Frequency: At least 5 of 7 days/Wk (IRF) Estimated Hrs Per Day: 1.5 hours per day Agreement: Yes Rehab Potential: Good Time/GCodes Start Time: 06:40 Stop Time: 08:10 Total Time Billed (hr/min): 90 Billed Treatment Time 1 visit- ADL 3 (45 min) Ex 3 (45 min) HARDIK NUNEZ May 21, 2018 08:18
--- NOTE | 2018-05-21 08:20 | PM & R (SOAP) Progress Note ---
Subjective This was a face to face visit with the patient. Date Seen by Provider: May 21, 2018 Time Seen by Provider: 08:05 Subjective/Events-last exam Patient was seen in [facility] this AM Appreciate Cardiology note and orders and hospitalists orders Lasix and SVN treatments provided for Pulm congestion with improvement.Patient SBA for transfers Date Identified: May 21, 2018 Time Identified: 08:10 Medication Intervention: Lasix and SVN treatments ordered as per above Coumadin dose increased for subtherapeutic INR Review of Systems Pulmonary: Dyspnea Musculoskeletal: leg pain Objective Physician Exam Last Set of Vital Signs Vital Signs Date Time Temp Pulse Resp B/P (MAP) Pulse Ox O2 Delivery O2 Flow Rate FiO2 05/21/18 06:00 98.6 77 20 105/53 (70) 96 Nasal Cannula 2.00 Capillary Refill : Less Than 3 Seconds I&O Intake and Output 05/21/18 00:00 Intake Total 960 ml Balance 960 ml Intake Oral 960 ml # Voids 9 General: Alert, Oriented X3, Cooperative, No Acute Distress HEENT: Atraumatic, PERRLA, EOMI, Mucous Memb Moist/[place], Other (02 by N/C in place) Neck: Supple, No JVD Lungs: Clear to Auscultation Heart: Regular Rate, Normal S1, Other (Systolic murmur at left sternal border) Abdomen: Normal Bowel Sounds, Soft, No Tenderness Extremities: No Clubbing, Other (trace edema rt ankle) Neuro: Normal Speech, Sensation Intact, Other (Strength LLE 3+/5 RLE 3-/5 Upper limb strength 4/5) Psych/Mental Status: Mental Status NL Results Lab Data Laboratory Tests 05/20/18 09:25: Prothrombin Time 19.2H, INR Comment 1.6H 05/20/18 16:10: White Blood Count 5.8, Red Blood Count 2.71L, Hemoglobin 8.8L, Hematocrit 28L, Mean Corpuscular Volume 103H, Mean Corpuscular Hemoglobin 32, Mean Corpuscular Hemoglobin Concent 32, Red Cell Distribution Width 15.4H, Platelet Count 261, Mean Platelet Volume 9.6, Neutrophils (%) (Auto) 69, Lymphocytes (%) (Auto) 16, Monocytes (%) (Auto) 11, Eosinophils (%) (Auto) 3, Basophils (%) (Auto) 1, Neutrophils # (Auto) 4.1, Lymphocytes # (Auto) 0.9L, Monocytes # (Auto) 0.7, Eosinophils # (Auto) 0.2, Basophils # (Auto) 0.0, Sodium Level 137, Potassium Level 4.5, Chloride Level 99, Carbon Dioxide Level 30, Anion Gap 8, Blood Urea Nitrogen 23H, Creatinine 1.10, Estimat Glomerular Filtration Rate 48, BUN/ Creatinine Ratio 21, Glucose Level 86, Calcium Level 9.3 Assessment/Plan Assessment and Plan Rt fem neck fracture s/p RT HIP replacement DR Ortiz WBAT Appreciate his note CHF/Atelectasis meds adjusted as per above Postop anemia Severe MV stenosis AVR with subtherapeutic INR DR Parker adjusting dose Chronic anticoagulation Mild CAD Nonischemic cardiomyopathy S/P ICD PVD AAA resp insuff on HTN Plan Continue PT/OT F/U with Cardiology Next Team Conference 9=19-18 Co-Morbidities that are continuing to impact the rehab process: (include details ) MARYBEL ROSARIO MD May 21, 2018 08:20
[2018-05-21] MEDS: MEXILETINE 150 MG (MEXITIL) CAPSULE PO SCH ×2 (08:32→21:15)
[2018-05-21] MEDS: CLOPIDOGREL 75 MG (PLAVIX) TABLET PO SCH (08:32)
[2018-05-21] MEDS: DIGOXIN 0.125 MG (LANOXIN) TAB PO SCH (08:33)
[2018-05-21] MEDS: LORATADINE (CLARITIN) 10 MG TAB PO SCH (08:33)
[2018-05-21] MEDS: SACUBITRIL/VALSARTAN 24/26 MG (ENTRESTO) TABLET PO SCH ×2 (08:33→21:15)
[2018-05-21] MEDS: ISOSORBIDE MONONITRATE 30 MG (IMDUR) TAB PO SCH (08:33)
[2018-05-21] MEDS: SENNOSIDES 8.6 MG (SENOKOT) TAB PO SCH ×2 (08:35→21:14)
--- NOTE | 2018-05-21 09:40 | Physical Therapy Daily Note ---
PT Daily Note-Current Subjective Pt sitting in recliner upon arrival. Pt agrees to PT. Pt's breakfast arrives shortly after start of tx. Nurse gives morning meds. RT will come back for morning tx but advises can be on Room Air during day as long as O2 SATs stay appropriate. Mental Status Patient Orientation: Person, Place, Time, Situation Attachments: Oxygen (2L) Transfers Functional [place] Measure 0=Not Assessed/NA 4=Minimal Assistance 1=Total Assistance 5=Supervision or Setup 2=Maximal Assistance 6=Modified [place] 3=Moderate Assistance 7=Complete IndependenceIRFPAI Quality Coding Scale 6 Independent with activity with or without an assistive device 5 Patient requires set up or clean up by helper. Patient completes activity by themselves 4 Supervision or touching assist (CGA). [place] provide cues , steadying assist 3 The helper provides less than half the effort to complete the activity 2 The helper provides more than half the effort to complete the activity 1 Dependent. The helper does all the effort to complete an activity 7 Patient refused to complete or attempt activity 9 The patient did not perform the activity before the current illness or injury 88 Not attempted due to Medical conditions or safety concerns Scootin Sit to/from Stand: 4 Sit to Stand (QC): 4 Weight Bearing Right Lower Extremity: Right Weight Bearing/Tolerated Left Lower Extremity: Left Full Weight Bearing Gait Training Does the Patient Walk?: Yes Distance (FIM): 3=150 ft Distance: 150' Walk 10 feet (QC): 5 Walk 50 ft with 2 Turns(QC): 5 Walk 150 ft (QC): 5 Gait Level of Assist: 5 Gait Persons Needed: 1 Gait Assistive Device: FWW Pt has slow shruthi but has improved with keeping stride length equal. Pt fatigue at end of walk. Wheelchair Training Does the Pt Use a Wheelchair?: No Exercises Seated Therapy Exercises: Ankle pumps, Long arc quads, Hip flexion, Kicking activity Seated Reps: 15 NuStep Minutes: 10 NuStep Workload: 4 Treatments CREDIT CORRESPONDENCE CLERK visits with pt over pt education items such as progress made and getting closer to discharge, use of O2 & Weekly Mtg for ARU. Pt transfers and ambulates in hallway using FWW at SBA w/o O2 per RT. Pt uses NuStep for 10m at WL 4 followed by short rest and Seated Ex in chair. O2 is monitored during tx and rest breaks given when needed. CREDIT CORRESPONDENCE CLERK teaches Pursed Lip Breathing Technique. Pt returns to room to rest at end of tx with all needs met. Assessment Current Status: Good Progress Pt's O2 is 87 after walking but quickly recovers to 90 and after a couple of mins. returns to >95% PT Short Term Goals Short Term Goals Time Frame: May 14, 2018 Wheelchair Distance: 150' PT Elastic Attacher Overlock Goals Snf Goals PT Snf Goals Time Frame: Jun 01, 2018 Transfers (B,C,W/C) (FIM): 6 Sit to Lying (QC): 6 Lying-Sitting on Side/Bed(QC): 6 Sit to Stand (QC): 6 Rollin Roll Left to Right (QC): 6 Chair/Jsn-av-Xhrvy Xfer(QC): 6 Car Transfer (QC): 6 Does the Patient Walk: Yes Gait (FIM): 6 Gait distance (FIM): 3=150 ft Distance: 200' Walk 10 feet (QC): 6 Walk 10ft-Uneven Surface(QC): 6 Walk 50ft with 2 Turns (QC): 6 Walk 150 ft (QC): 6 Gait Level of Assist: 6 Gait Assistive Device: FWW Stairs (FIM): 5 # of Steps: 8 1 Step (curb) (QC): 5 4 Steps (QC): 5 12 Steps (QC): 9 Stairs Level Of Assist: 5 Picking up an Object (QC): 5 PT Plan Problem List Problem List: Activity Tolerance, Functional Strength, Safety, Gait Treatment/Plan Treatment Plan: Continue Plan of Care Treatment Plan: Bed Mobility, Education, Functional Activity Rick, Functional Strength, Group Therapy, Gait, Safety, Therapeutic Exercise, Transfers Treatment Duration: Jun 01, 2018 Frequency: At least 5 of 7 days/Wk (IRF) Estimated Hrs Per Day: 1.5 hours per day Patient and/or Family Agrees t: Yes Safety Risks/Education Patient Education: Gait Training, Transfer Techniques, Correct Positioning, Safety Issues Teaching Recipient: Patient Teaching Methods: Discussion Response to Teaching: Verbalize Understanding Time/GCodes Time In: 830 Time Out: 930 Total Billed Treatment Time: 60 Total Billed Treatment 1, FA x2 (30m), GT (10m) & EX (20m) G Codes Necessary: ORVILLE Medrano CREDIT CORRESPONDENCE CLERK May 21, 2018 09:39
[2018-05-21] MEDS: RT-ALBUTEROL SULF 2.5 MG/3 ML PRE-MIX VIAL INH SCH ×2 (11:41→23:10)
--- NOTE | 2018-05-21 12:12 | Physical Therapy Daily Note ---
PT Daily Note-Current Subjective Pt sitting in recliner upon arrival. Pt agrees to PT. RT gives tx. Pain Numeric Pain Scale: 4 Location: Right, Medial, Upper Location Body Site: Thigh Pain Description: Ache Mental Status Patient Orientation: Person, Place, Time, Situation Attachments: Oxygen (2L) Transfers Functional Grant Measure 0=Not Assessed/NA 4=Minimal Assistance 1=Total Assistance 5=Supervision or Setup 2=Maximal Assistance 6=Modified Grant 3=Moderate Assistance 7=Complete IndependenceIRFPAI Quality Coding Scale 6 Independent with activity with or without an assistive device 5 Patient requires set up or clean up by helper. Patient completes activity by themselves 4 Supervision or touching assist (CGA). [place] provide cues , steadying assist 3 The helper provides less than half the effort to complete the activity 2 The helper provides more than half the effort to complete the activity 1 Dependent. The helper does all the effort to complete an activity 7 Patient refused to complete or attempt activity 9 The patient did not perform the activity before the current illness or injury 88 Not attempted due to Medical conditions or safety concerns Scootin Rollin Roll Left to Right (QC): 5 Supine to/from Sit: 5 Sit to/from Stand: 5 Sit to Lying (QC): 5 Sit to Stand (QC): 5 Weight Bearing Right Lower Extremity: Right Weight Bearing/Tolerated Left Lower Extremity: Left Full Weight Bearing Gait Training Does the Patient Walk?: Yes Distance (FIM): 1=up to 49 ft Distance: 5' Gait Level of Assist: 5 Gait Persons Needed: 1 Gait Assistive Device: FWW Pt walks to EOB. Exercises Supine Ex: Ankle pumps, Quad Set, Glut sets, Heel Slides, Straight leg raise, Hip abd/add Supine Reps: 20 Seated Therapy Exercises: Ankle pumps, Long arc quads, Hip flexion, Kicking activity Seated Reps: 20 Treatments Pt transfers from recliner to standing. Pt completes Seated Ex at EOB. Pt transfers to Supine then RT comes in for tx so pt transfers to EOB. Pt transfers back to Supine in bed and completes Ex. MANAGER CATEGORY gives instruction to pt' s daughter as well during tx. Pt has all needs met at end of tx. Assessment Current Status: Good Progress Pt completes all transfers and Ex with O2. Pt completes tx well. PT Short Term Goals Short Term Goals Time Frame: May 14, 2018 Wheelchair Distance: 150' PT Cutter Aluminum Sheet Goals Cutter Aluminum Sheet Goals PT Fpc Goals Time Frame: Jun 01, 2018 Transfers (B,C,W/C) (FIM): 6 Sit to Lying (QC): 6 Lying-Sitting on Side/Bed(QC): 6 Sit to Stand (QC): 6 Rollin Roll Left to Right (QC): 6 [id number] Xfer(QC): 6 Car Transfer (QC): 6 Does the Patient Walk: Yes Gait (FIM): 6 Gait distance (FIM): 3=150 ft Distance: 200' Walk 10 feet (QC): 6 Walk 10ft-Uneven Surface(QC): 6 Walk 50ft with 2 Turns (QC): 6 Walk 150 ft (QC): 6 Gait Level of Assist: 6 Gait Assistive Device: FWW Stairs (FIM): 5 # of Steps: 8 1 Step (curb) (QC): 5 4 Steps (QC): 5 12 Steps (QC): 9 Stairs Level Of Assist: 5 Picking up an Object (QC): 5 PT Plan Problem List Problem List: Activity Tolerance, Functional Strength Treatment/Plan Treatment Plan: Continue Plan of Care Treatment Plan: Bed Mobility, Education, Functional Activity Rick, Functional Strength, Group Therapy, Gait, Safety, Therapeutic Exercise, Transfers Treatment Duration: Jun 01, 2018 Frequency: At least 5 of 7 days/Wk (IRF) Estimated Hrs Per Day: 1.5 hours per day Patient and/or Family Agrees t: Yes Safety Risks/Education Patient Education: Transfer Techniques, Correct Positioning, Safety Issues Teaching Recipient: Patient, Family Teaching Methods: Discussion Response to Teaching: Verbalize Understanding Time/GCodes Time In: 1130 Time Out: 1200 Total Billed Treatment Time: 30 Total Billed Treatment 1, EX x2 (30m) G Codes Necessary: ORVILLE Medrano MANAGER CATEGORY May 21, 2018 12:12
[2018-05-21 15:56] VITALS: BP 105/54
--- NOTE | 2018-05-21 16:48 | Cardiology Progress Note ---
Subjective Date Seen by Provider: May 21, 2018 Time Seen by Provider: 16:46 Subjective/Events-last exam Patient was seen and evaluated, feeling better, had right-sided chest pressure and pain, improved with ice packing yesterday. No further episodes were reported today. Review of Systems General: No Chills, No Night Sweats, No Fatigue, No Malaise, No Appetite, No Other HEENT: No Head Aches, No Visual Changes, No Eye Pain, No Ear Pain, No Dysphasia , No Sinus Congestion, No Post Nasal Drip, No Sore Throat, No Other Pulmonary: No Dyspnea, No Cough, No Pleuritic Chest Pain, No Other Cardiovascular: No: Chest Pain, Palpitations, Orthopnea, Paroxysmal Noc. Dyspnea, Edema, Lt Headedness, Other Objective-Cardiology Exam Last Set of Vital Signs Vital Signs 05/21/18 15:56 Temp 98.2 Pulse 88 Resp 16 B/P (MAP) 105/54 (71) Pulse Ox 90 O2 Delivery Nasal Cannula O2 Flow Rate 2.00 Capillary Refill : Less Than 3 Seconds I&O Intake and Output 05/21/18 00:00 Intake Total 960 ml Balance 960 ml Intake Oral 960 ml # Voids 9 General: Alert, Oriented X3, Cooperative, No Acute Distress HEENT: Atraumatic, PERRLA, EOMI, Mucous Memb Moist/[place], Other (02 by N/C in place) Neck: Supple, No JVD Lungs: Clear to Auscultation Heart: Regular Rate, Normal S1, Other (Systolic murmur at left sternal border) Abdomen: Normal Bowel Sounds, Soft, No Tenderness Extremities: No Clubbing, Other (trace edema rt ankle) Neuro: Normal Speech, Sensation Intact, Other (Strength LLE 3+/5 RLE 3-/5 Upper limb strength 4/5) Psych/Mental Status: Mental Status NL A/P-Cardiology Admission Diagnosis Hip fracture Coronary artery disease Aortic valve stenosis Mitral regurgitation Assessment/Plan Right hip fracture, status post surgical repair done on May 11, 2018, recovering slowly, doing well. Continue to monitor Chest pain nonspecific etiology, right-sided, musculoskeletal in nature, better at this time. Continue to monitor Anemia, slightly worse, continue to monitor Questionable pneumonia, followed and managed by primary care physician History of mild coronary artery disease, nonobstructive disease by cardiac catheterization in September 2014, stress test in December 2016 showing no ischemia, continue to monitor closely Congestive heart failure, chronic left ventricular systolic dysfunction, nonischemic cardiomyopathy, secondary to valvular heart disease. Has history of ICD implanted PLATE FILLER-D done in August 2012. Severe mitral valve stenosis, rheumatic valve, history of severe mitral regurgitation and pulmonary hypertension with estimated PA pressure of 55 mmHg, severely dilated left atrium. She was seen Dr. Page at in the past and she was considered high risk for valve surgery. She is not a candidate for mitral clip surgery due to her severe mitral stenosis, patient was referred for TMVR with Dr. Davila at , she decided to continue with conservative management and will consider the procedure if she become more symptomatic. 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 Last echocardiogram was done in April 2018 and the valve was functioning normally Subtherapeutic INR, increase coumadin and continue to monitor. Peripheral vascular disease, patient has venous insufficiency on the right side that required ablation,peripheral angiogram May 2017, intervention to the anterior tibial artery, the wound has healed then developed a new ulcer after a trauma. Did balloon angioplasty to the right anterior tibial artery proximal portion has significant improvement the distal portion is occluded and did not improve, the posterior tibial artery and peroneal arteries were occluded with no collaterals in that area. The right SFA has multiple segment of moderate to severe stenosis, balloon angioplasty to the mid SFA with good results. Abdominal aorta has moderate disease, the left SFA has mild to moderate disease down to the trifurcation. We'll continue with medical therapy, the ulcer on her foot is completely healed. Continue to monitor Carotid stenosis, continue to monitor, followed by heart and vascular care. 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 followed and monitored by heart and vascular care. Hypertension, restart home medications and monitor Hyperlipidemia, continue on current medication monitor lipids Clinical Quality Measures DVT/VTE Risk/Contraindication: Risk Factor Score Per Nursin RFS Level Per Nursing on Admit: 4+=Very High PRANEETH SHUKLA MD May 21, 2018 4:48 pm
[2018-05-21] MEDS: warFARin 1 MG (COUMADIN) TAB PO SCH (17:32)
[2018-05-21] MEDS: rOPINIRole 0.25 MG (REQUIP) TAB PO PRN (21:15)
[2018-05-21] MEDS: MELATONIN 3 MG TABLET PO PRN (21:15)
[2018-05-22] MEDS: HYDROcodone/APAP 5 MG/325 MG (LORTAB) TAB PO PRN ×4 (01:26→21:51)
[2018-05-22 05:08] VITALS: BP 105/58
[2018-05-22 05:43] LABS: HEMOGLOBIN 8.6 G/DL (11.5-16.0); MEAN PLATELET VOLUME 9.6 FL (7.4-10.4); RED BLOOD COUNT 2.64 10^6/uL (4.35-5.85); RED CELL DISTRIBUTION WIDTH 15.6 % (10.0-14.5); WHITE BLOOD COUNT 5.4 10^3/uL (4.3-11.0)
[2018-05-22 06:13] LABS: INR 1.9 (0.8-1.4); PROTHROMBIN TIME PATIENT 21.6 SEC (12.2-14.7)
[2018-05-22 06:15] LABS: CALCIUM 9.1 MG/DL (8.5-10.1); CREATININE SERUM 1.31 MG/DL (0.60-1.30)
[2018-05-22] MEDS: FUROSEMIDE 40 MG (LASIX) TAB PO SCH ×2 (06:42→17:27)
[2018-05-22] MEDS: MULTIVIT W/MINERALS TAB (THERAGRAN M) PO SCH (06:42)
[2018-05-22] MEDS: KCL 10 MEQ TAB (MICRO K) PO SCH ×2 (06:42→17:27)
[2018-05-22] MEDS: PANTOPRAZOLE 40 MG (PROTONIX) TAB PO SCH (06:42)
[2018-05-22] MEDS: LEVOTHYROXINE 100 MCG (LEVOTHROID) TAB PO SCH (06:42)
[2018-05-22] MEDS: RT-ALBUTEROL SULF 2.5 MG/3 ML PRE-MIX VIAL INH SCH ×2 (07:24→20:14)
[2018-05-22] MEDS: DIGOXIN 0.125 MG (LANOXIN) TAB PO SCH (07:49)
[2018-05-22] MEDS: CLOPIDOGREL 75 MG (PLAVIX) TABLET PO SCH (07:49)
[2018-05-22] MEDS: MEXILETINE 150 MG (MEXITIL) CAPSULE PO SCH ×2 (07:49→20:37)
[2018-05-22] MEDS: SACUBITRIL/VALSARTAN 24/26 MG (ENTRESTO) TABLET PO SCH ×2 (07:50→20:42)
[2018-05-22] MEDS: SENNOSIDES 8.6 MG (SENOKOT) TAB PO SCH ×2 (07:50→20:42)
[2018-05-22] MEDS: LORATADINE (CLARITIN) 10 MG TAB PO SCH (07:50)
[2018-05-22] MEDS: ISOSORBIDE MONONITRATE 30 MG (IMDUR) TAB PO SCH (07:50)
--- NOTE | 2018-05-22 08:20 | PM & R (SOAP) Progress Note ---
Subjective This was a face to face visit with the patient. Date Seen by Provider: May 22, 2018 Time Seen by Provider: 07:50 Subjective/Events-last exam Patient was seen in her room this AM Patient SBA for transfers Breathing better with Resp treatments and Lasix on board INR therapeutic Date Identified: May 22, 2018 Time Identified: 07:50 Medication Intervention: SVN treatments and diuretic adjusted cardiology following Review of Systems Musculoskeletal: leg pain Objective Physician Exam Last Set of Vital Signs Vital Signs Date Time Temp Pulse Resp B/P (MAP) Pulse Ox O2 Delivery O2 Flow Rate FiO2 05/22/18 07:24 97 Nasal Cannula 2.00 05/22/18 05:08 97.6 86 20 105/58 (74) Capillary Refill : Less Than 3 Seconds I&O Intake and Output 05/22/18 00:00 Intake Total 1100 ml Balance 1100 ml Intake Oral 1100 ml # Voids 7 # Bowel Movements 3 General: Alert, Oriented X3, Cooperative, No Acute Distress HEENT: Atraumatic, PERRLA, EOMI, Mucous Memb Moist/[place], Other (02 by N/C in place) Neck: Supple, No JVD Lungs: Clear to Auscultation Heart: Regular Rate, Normal S1, Other (Systolic murmur at left sternal border) Abdomen: Normal Bowel Sounds, Soft, No Tenderness Extremities: No Clubbing, Other (trace edema rt ankle) Neuro: Normal Speech, Sensation Intact, Other (Strength LLE 3+/5 RLE 3-/5 Upper limb strength 4/5) Psych/Mental Status: Mental Status NL Results Lab Data Laboratory Tests 05/20/18 09:25: Prothrombin Time 19.2H, INR Comment 1.6H 05/20/18 16:10: White Blood Count 5.8, Red Blood Count 2.71L, Hemoglobin 8.8L, Hematocrit 28L, Mean Corpuscular Volume 103H, Mean Corpuscular Hemoglobin 32, Mean Corpuscular Hemoglobin Concent 32, Red Cell Distribution Width 15.4H, Platelet Count 261, Mean Platelet Volume 9.6, Neutrophils (%) (Auto) 69, Lymphocytes (%) (Auto) 16, Monocytes (%) (Auto) 11, Eosinophils (%) (Auto) 3, Basophils (%) (Auto) 1, Neutrophils # (Auto) 4.1, Lymphocytes # (Auto) 0.9L, Monocytes # (Auto) 0.7, Eosinophils # (Auto) 0.2, Basophils # (Auto) 0.0, Sodium Level 137, Potassium Level 4.5, Chloride Level 99, Carbon Dioxide Level 30, Anion Gap 8, Blood Urea Nitrogen 23H, Creatinine 1.10, Estimat Glomerular Filtration Rate 48, BUN/ Creatinine Ratio 21, Glucose Level 86, Calcium Level 9.3 05/22/18 05:20: Prothrombin Time 21.6H, INR Comment 1.9H, White Blood Count 5.4, Red Blood Count 2.64L, Hemoglobin 8.6L, Hematocrit 27L, Mean Corpuscular Volume 103H, Mean Corpuscular Hemoglobin 33, Mean Corpuscular Hemoglobin Concent 32, Red Cell Distribution Width 15.6H, Platelet Count 287, Mean Platelet Volume 9.6, Sodium Level 136, Potassium Level 4.0, Chloride Level 98, Carbon Dioxide Level 28, Anion Gap 10, Blood Urea Nitrogen 28H, Creatinine 1.31H, Estimat Glomerular Filtration Rate 39, BUN/Creatinine Ratio 21, Glucose Level 82, Calcium Level 9.1 Assessment/Plan Assessment and Plan RT fem neck fracture s/p RT Hip replacement DR Ortiz WBAT CHF/Atelectasis meds adjusted with improvement Postop anemia Severe MV stenosis AVR with therapeutic INR after dose coumadin adjusted by cardiology Chronic anticoagulation Mild CAD Nonischemic cardiomyopathy S/P ICD PVD AAA Resp insuff on HTN Plan Continue PT/OT Team Conference later today See report for full functiuonal update and POC F/U with Cardiology Co-Morbidities that are continuing to impact the rehab process: (include details ) MARYBEL ROSARIO MD May 22, 2018 08:20
--- NOTE | 2018-05-22 08:42 | Cardiology Progress Note ---
Subjective Date Seen by Provider: May 22, 2018 Time Seen by Provider: 08:30 Subjective/Events-last exam Patient is up in wheelchair, no new complaints. Denies any CP or increased dyspnea. Review of Systems General: No Night Sweats, No Fatigue, No Malaise HEENT: No Visual Changes, No Dysphasia Pulmonary: No Dyspnea, No Pleuritic Chest Pain Cardiovascular: No: Chest Pain, Palpitations, Paroxysmal Noc. Dyspnea Gastrointestinal: No: Nausea, Vomiting, Abdominal Pain Genitourinary: No Dysuria, No Frequency Musculoskeletal: No: neck pain, back pain Neurological: No: Weakness, Numbness, Change in speech, Confusion Objective-Cardiology Exam Last Set of Vital Signs Vital Signs 05/22/18 05/22/18 05:08 07:24 Temp 97.6 Pulse 86 Resp 20 B/P (MAP) 105/58 (74) Pulse Ox 97 O2 Delivery Nasal Cannula O2 Flow Rate 2.00 Capillary Refill : Less Than 3 Seconds I&O Intake and Output 05/21/18 23:59 Intake Total 1100 ml Balance 1100 ml Intake Oral 1100 ml # Voids 7 # Bowel Movements 3 General: Alert, Oriented X3, Cooperative, No Acute Distress HEENT: Atraumatic, PERRLA, EOMI, Mucous Memb Moist/[place], Other (02 by N/C in place) Neck: Supple, No JVD Lungs: Clear to Auscultation Heart: Regular Rate, Normal S1, Other (Systolic murmur at left sternal border) Abdomen: Normal Bowel Sounds, Soft, No Tenderness Extremities: No Clubbing, Other (trace edema rt ankle) Neuro: Normal Speech, Sensation Intact, Other (Strength LLE 3+/5 RLE 3-/5 Upper limb strength 4/5) Psych/Mental Status: Mental Status NL Results Lab Laboratory Tests 05/22/18 05:20 A/P-Cardiology Admission Diagnosis Hip fracture Coronary artery disease Aortic valve stenosis Mitral regurgitation Assessment/Plan Right hip fracture, status post surgical repair done on May 11, 2018, recovering slowly, doing well. Continue to monitor Chest pain nonspecific etiology, right-sided, musculoskeletal in nature, better at this time. Continue to monitor Anemia, continue to monitor H/H Questionable pneumonia vs atelectasis on CXR, followed and managed by primary care physician History of mild coronary artery disease, nonobstructive disease by cardiac catheterization in September 2014, stress test in December 2016 showing no ischemia, continue to monitor closely Congestive heart failure, chronic left ventricular systolic dysfunction, nonischemic cardiomyopathy, secondary to valvular heart disease. Has history of ICD implanted POLICE CHIEF-D done in August 2012. Severe mitral valve stenosis, rheumatic valve, history of severe mitral regurgitation and pulmonary hypertension with estimated PA pressure of 55 mmHg, severely dilated left atrium. She was seen Dr. Page at in the past and she was considered high risk for valve surgery. She is not a candidate for mitral clip surgery due to her severe mitral stenosis, patient was referred for TMVR with Dr. Davila at , she decided to continue with conservative management and will consider the procedure if she become more symptomatic. 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 Last echocardiogram was done in April 2018 and the valve was functioning normally Subtherapeutic INR, increase coumadin and continue to monitor. Peripheral vascular disease, patient has venous insufficiency on the right side that required ablation,peripheral angiogram May 2017, intervention to the anterior tibial artery, the wound has healed then developed a new ulcer after a trauma. Did balloon angioplasty to the right anterior tibial artery proximal portion has significant improvement the distal portion is occluded and did not improve, the posterior tibial artery and peroneal arteries were occluded with no collaterals in that area. The right SFA has multiple segment of moderate to severe stenosis, balloon angioplasty to the mid SFA with good results. Abdominal aorta has moderate disease, the left SFA has mild to moderate disease down to the trifurcation. We'll continue with medical therapy, the ulcer on her foot is completely healed. Continue to monitor Carotid stenosis, continue to monitor, followed by heart and vascular care. 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 followed and monitored by heart and vascular care. Hypertension, restart home medications and monitor Hyperlipidemia, continue on current medication monitor lipids Clinical Quality Measures DVT/VTE Risk/Contraindication: Risk Factor Score Per Nursin RFS Level Per Nursing on Admit: 4+=Very High THANH LAWTON May 22, 2018 08:42
--- NOTE | 2018-05-22 09:15 | Progress Note-Standard ---
Standard Progress Note Progress Notes/Assess & Plan Date Seen by a Provider: May 22, 2018 Time Seen by a Provider: 09:14 Progress/Assessment & Plan No complaints Vital Signs Date Time Temp Pulse Resp B/P (MAP) Pulse Ox O2 Delivery O2 Flow Rate FiO2 05/15/18 05:41 99.1 85 16 101/55 (70) 98 Nasal Cannula 7.00 05/14/18 21:00 100 Nasal Cannula 3.00 05/14/18 15:44 99.4 91 14 116/69 (85) 100 Nasal Cannula 3.00 05/14/18 15:12 Nasal Cannula 3.00 05/14/18 14:59 80 98 Nasal Cannula 3.00 05/14/18 14:52 Nasal Cannula 3.00 05/14/18 12:09 98.6 85 18 108/56 (73) 100 Nasal Cannula 3.00 I & O 05/15/18 07:00 Intake Total 940 ml Output Total 600 ml Balance 340 ml Laboratory Tests Test 05/15/18 05:50 Range/Units White Blood Count 5.4 4.3-11.0 10^3/uL Red Blood Count 2.44 L 4.35-5.85 10^6/uL Hemoglobin 7.9 L 11.5-16.0 G/DL Hematocrit 25 L 35-52 % Mean Corpuscular Volume 101 H 80-99 FL Mean Corpuscular Hemoglobin 32 25-34 PG Mean Corpuscular Hemoglobin Concent 32 32-36 G/DL Red Cell Distribution Width 15.8 H 10.0-14.5 % Platelet Count 107 L 130-400 10^3/uL Mean Platelet Volume 10.9 H 7.4-10.4 FL Prothrombin Time 27.1 H 12.2-14.7 SEC INR Comment 2.5 H 0.8-1.4 R hip dressing intact. Dry, but sanguinous DC on clothing no calf tenderness. Neg Jennifer's s/p R hip bipolar continue PT/OT Final Diagnosis feeling much better R hip dressing intact No DC no calf tenderness s/p R hip bipolar continue pT/OT ARCENIO GODOY MD May 22, 2018 09:15
--- NOTE | 2018-05-22 09:18 | Occupational Ther Daily Note ---
OT Current Status-Daily Note Subjective Pt agreeable to treatment this am. No c/o pain. Mental Status/Objective Functional [place] Measure 0=Not Assessed/NA 4=Minimal Assistance 1=Total Assistance 5=Supervision or Setup 2=Maximal Assistance 6=Modified [place] 3=Moderate Assistance 7=Complete [place] Attachments: Oxygen ADL-Treatment Pt in restroom when therapist arrives. Pt able to complete toileting with SBA. Sit to stand from toilet with SBA. Pt stood at sink to wash hands with modified independence. Pt requests to complete sponge bath this morning. Bathing completed seated at sink. Doff clothing with SBA. Uses dressing stick to doff lower body clothing. Upper body bathing completed with setup. Pt used long handled sponge to wash lower legs and feet. Stood without LOB to wash buttocks. Don button up shirt with set up. Pt donned underwear and pants with SBA using dressing stick to start over feet. Stood with good balance during pant hike using FWW. Assist required to don JAVIER hose. Pt donned socks with set up using sock aid. Grooming tasks completed standing at sink with modified independence. Functional [place] Measure 0=Not Assessed/NA 4=Minimal Assistance 1=Total Assistance 5=Supervision or Setup 2=Maximal Assistance 6=Modified [place] 3=Moderate Assistance 7=Complete IndependenceIRFPAI Quality Coding Scale 6 Independent with activity with or without an assistive device 5 Patient requires set up or clean up by helper. Patient completes activity by themselves 4 Supervision or touching assist (CGA). [place] provide cues , steadying assist 3 The helper provides less than half the effort to complete the activity 2 The helper provides more than half the effort to complete the activity 1 Dependent. The helper does all the effort to complete an activity 7 Patient refused to complete or attempt activity 9 The patient did not perform the activity before the current illness or injury 88 Not attempted due to Medical conditions or safety concerns Grooming (FIM): 6 Oral Hygiene (QC): 6 Bathing (FIM): 5 Shower/Bathe Self (QC): 5 Upper Body (FIM): 5 Upper Body Dressing (QC): 5 Lower Body Dressing (FIM): 5 Lower Body Dressing (QC): 4 On/Off Footwear (QC): 5 Toileting (FIM): 5 Toileting Hygiene (QC): 4 Toilet/Commode Transfer (FIM): 5 Shower Transfer(FIM): 5 Pt states daughter will be staying with her at d/c. Pt states she has a FWW, toilet riser, and shower bench for home use. Other Treatment Gait to therapy gym with FWW, no LOB noted. Arm bike [id number] to increase overall strength and activity tolerance needed for functional tasks. Pt completed task with minimal resistance and slow pace. No rest breaks required. Pt completed resistance peg activity with bilateral UE with 1# weights in place to increase strength for ADLs and transfers. Pt completed task without assistance. Gait back to room with FWW. Transfer to chair without assistance. Pt sitting in chair with needs met after session. OT Short Term Goals Short Term Goals Time Frame: May 21, 2018 Grooming(FIM): 6 Toilet/Commode Transfer(FIM): 5 Additional Short Term Goals: 1-Demonstrate ADL Tasks, 2-Verbalize Understanding , 3-ImproveStrength/Rick 1=Demonstrate adherence to instructed precautions during ADL tasks. 2=Patient will verbalize/demonstrate understanding of assistive devices/ modifications for ADL. 3=Patient will improve strength/tolerance for activity to enable patient to perform ADL's. OT Residential Goals Private Duty Rn Goals Time Frame: Jun 01, 2018 Eating (FIM): 7 (no dentures) Eating (QC): 6 Groomin Oral Hygiene (QC): 6 Bathing(FIM): 6 Shower/Bathe Self (QC): 6 Upper Body Dressing(FIM): 6 Upper Body Dressing (QC): 6 Lower Body Dressing(FIM): 6 Lower Body Dressing (QC): 6 On/Off Footwear (QC): 6 Toileting(FIM): 6 Toileting Hygiene (QC): 6 Toilet/Commode Transfer(FIM): 6 Toilet/Commode Transfer (QC): 6 Shower Transfer(FIM): 5 Additional Goals: 1-Demonstrate ADL Tasks, 2-Verbalize Understanding, 3- ImproveStrength/Rick 1=Demonstrate adherence to instructed precautions during ADL tasks. 2=Patient will verbalize/demonstrate understanding of assistive devices/ modifications for ADL. 3=Patient will improve strength/tolerance for activity to enable patient to perform ADL's. OT Education/Plan Problem List/Assessment Pt would benefit from skilled OT to increase her independence in basic self care to allow her to safely return home Discharge Recommendations Plan/Recommendations: Continue POC Treatment Plan/Plan of Care Patient would benefit from OT for education, treatment and training to promote independence in ADL's, mobility, safety and/or upper extremity function for ADL' s. Plan of Care: ADL Retraining, Functional Mobility, Group Exercise/Act as Ind ( education, exercise, activity tolerance, funct mobility, socialization), UE Funct Exercise/Act, UE Neuromus Re-Ed/Coord Treatment Duration: Jun 01, 2018 Frequency: At least 5 of 7 days/Wk (IRF) Estimated Hrs Per Day: 1.5 hours per day Agreement: Yes Rehab Potential: Good Time/GCodes Start Time: 08:00 Stop Time: 09:30 Total Time Billed (hr/min): 90 Billed Treatment Time 1 visit, ADLx4(55minutes), EXx2(35minutes) KAN FLEMING OT May 22, 2018 09:18
--- NOTE | 2018-05-22 11:18 | Cardiology Progress Note ---
Subjective Date Seen by Provider: May 22, 2018 Time Seen by Provider: 11:17 Subjective/Events-last exam Patient is sitting in a chair, feeling better, denied any chest pain Review of Systems General: No Chills, No Night Sweats, No Fatigue, No Malaise, No Appetite, No Other HEENT: No Head Aches, No Visual Changes, No Eye Pain, No Ear Pain, No Dysphasia , No Sinus Congestion, No Post Nasal Drip, No Sore Throat, No Other Pulmonary: No Dyspnea, No Cough, No Pleuritic Chest Pain, No Other Cardiovascular: No: Chest Pain, Palpitations, Orthopnea, Paroxysmal Noc. Dyspnea, Edema, Lt Headedness, Other Objective-Cardiology Exam Last Set of Vital Signs Vital Signs 05/22/18 05/22/18 05/22/18 05:08 07:24 09:00 Temp 97.6 Pulse 86 Resp 20 B/P (MAP) 105/58 (74) Pulse Ox 97 O2 Delivery Nasal Cannula O2 Flow Rate 2.00 Capillary Refill : Less Than 3 Seconds I&O Intake and Output 05/22/18 00:00 Intake Total 1100 ml Balance 1100 ml Intake Oral 1100 ml # Voids 7 # Bowel Movements 3 General: Alert, Oriented X3, Cooperative, No Acute Distress HEENT: Atraumatic, PERRLA, EOMI, Mucous Memb Moist/[place], Other (02 by N/C in place) Neck: Supple, No JVD Lungs: Clear to Auscultation Heart: Regular Rate, Normal S1, Other (Systolic murmur at left sternal border) Abdomen: Normal Bowel Sounds, Soft, No Tenderness Extremities: No Clubbing, Other (trace edema rt ankle) Neuro: Normal Speech, Sensation Intact, Other (Strength LLE 3+/5 RLE 3-/5 Upper limb strength 4/5) Psych/Mental Status: Mental Status NL Results Lab Laboratory Tests 05/22/18 05:20 A/P-Cardiology Admission Diagnosis Hip fracture Coronary artery disease Aortic valve stenosis Mitral regurgitation Assessment/Plan Right hip fracture, status post surgical repair done on May 11, 2018, recovering slowly, doing well. Continue to monitor Chest pain nonspecific etiology, right-sided, musculoskeletal in nature, better at this time. Continue to monitor Anemia, continue to monitor H/H Questionable pneumonia vs atelectasis on CXR, followed and managed by primary care physician History of mild coronary artery disease, nonobstructive disease by cardiac catheterization in September 2014, stress test in December 2016 showing no ischemia, continue to monitor closely Congestive heart failure, chronic left ventricular systolic dysfunction, nonischemic cardiomyopathy, secondary to valvular heart disease. 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 Severe mitral valve stenosis, rheumatic valve, history of severe mitral regurgitation and pulmonary hypertension with estimated PA pressure of 55 mmHg, severely dilated left atrium. She was seen Dr. Page at in the past and she was considered high risk for valve surgery. She is not a candidate for mitral clip surgery due to her severe mitral stenosis, patient was referred for TMVR with Dr. Davila at , she decided to continue with conservative management and will consider the procedure if she become more symptomatic. 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 Last echocardiogram was done in April 2018 and the valve was functioning normally Subtherapeutic INR, increase coumadin and continue to monitor. Peripheral vascular disease, patient has venous insufficiency on the right side that required ablation,peripheral angiogram May 2017, intervention to the anterior tibial artery, the wound has healed then developed a new ulcer after a trauma. Did balloon angioplasty to the right anterior tibial artery proximal portion has significant improvement the distal portion is occluded and did not improve, the posterior tibial artery and peroneal arteries were occluded with no collaterals in that area. The right SFA has multiple segment of moderate to severe stenosis, balloon angioplasty to the mid SFA with good results. Abdominal aorta has moderate disease, the left SFA has mild to moderate disease down to the trifurcation. We'll continue with medical therapy, the ulcer on her foot is completely healed. Continue to monitor Carotid stenosis, continue to monitor, followed by heart and vascular care. 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 followed and monitored by heart and vascular care. Hypertension, restart home medications and monitor Hyperlipidemia, continue on current medication monitor lipids Clinical Quality Measures DVT/VTE Risk/Contraindication: Risk Factor Score Per Nursin RFS Level Per Nursing on Admit: 4+=Very High PRANEETH SHUKLA MD May 22, 2018 11:18
--- NOTE | 2018-05-22 12:04 | Physical Therapy Daily Note ---
PT Daily Note-Current Subjective Agrees to Rx, feeling much better, expects to DC Mon Pain Numeric Pain Scale: 0-No Pain Mental Status Patient Orientation: Normal For Age Transfers Functional [place] Measure 0=Not Assessed/NA 4=Minimal Assistance 1=Total Assistance 5=Supervision or Setup 2=Maximal Assistance 6=Modified [place] 3=Moderate Assistance 7=Complete IndependenceIRFPAI Quality Coding Scale 6 Independent with activity with or without an assistive device 5 Patient requires set up or clean up by helper. Patient completes activity by themselves 4 Supervision or touching assist (CGA). [place] provide cues , steadying assist 3 The helper provides less than half the effort to complete the activity 2 The helper provides more than half the effort to complete the activity 1 Dependent. The helper does all the effort to complete an activity 7 Patient refused to complete or attempt activity 9 The patient did not perform the activity before the current illness or injury 88 Not attempted due to Medical conditions or safety concerns Transfers (B, C, W/C) (FIM): 6 Scootin Rollin Supine to/from Sit: 6 Sit to/from Stand: 6 Weight Bearing Right Lower Extremity: Right Weight Bearing/Tolerated Left Lower Extremity: Left Full Weight Bearing Gait Training Does the Patient Walk?: Yes Gait (FIM): 5 Distance (FIM): 3=150 ft (175x3) Gait Level of Assist: 5 Gait Persons Needed: 1 Gait Assistive Device: FWW more equal step length Stair Training Stair Training: Handrails/: 2 handrails Stairs (FIM): 5 #of Steps: 4 Stairs: Pattern: Step to Level of Assist: 5 household exception Exercises Supine Ex: Ankle pumps, Quad Set, Rolling, Glut sets, Heel Slides, Short Arc Quads, Scooting, Straight leg raise, Hip abd/add Supine Reps: 15 (x2) Seated Therapy Exercises: Ankle pumps, Sit to stand, Long arc quads, Hip flexion, Hip abd/add Seated Reps: 20 NuStep Minutes: 12 NuStep Workload: 2 Assessment Current Status: Good Progress improved in all phases of Rx PT Short Term Goals Short Term Goals Time Frame: May 14, 2018 Wheelchair Distance: 150' PT Water Filter Cleaner Goals Water Filter Cleaner Goals PT Chcf Goals Time Frame: Jun 01, 2018 Transfers (B,C,W/C) (FIM): 6 Sit to Lying (QC): 6 Lying-Sitting on Side/Bed(QC): 6 Sit to Stand (QC): 6 Rollin Roll Left to Right (QC): 6 Chair/Btr-ta-[id number] Xfer(QC): 6 Car Transfer (QC): 6 Does the Patient Walk: Yes Gait (FIM): 6 Gait distance (FIM): 3=150 ft Distance: 200' Walk 10 feet (QC): 6 Walk 10ft-Uneven Surface(QC): 6 Walk 50ft with 2 Turns (QC): 6 Walk 150 ft (QC): 6 Gait Level of Assist: 6 Gait Assistive Device: FWW Stairs (FIM): 5 # of Steps: 8 1 Step (curb) (QC): 5 4 Steps (QC): 5 12 Steps (QC): 9 Stairs Level Of Assist: 5 Picking up an Object (QC): 5 PT Plan Treatment/Plan Treatment Plan: Continue Plan of Care Treatment Plan: Bed Mobility, Education, Functional Activity Rick, Functional Strength, Group Therapy, Gait, Safety, Therapeutic Exercise, Transfers Treatment Duration: Jun 01, 2018 Frequency: At least 5 of 7 days/Wk (IRF) Estimated Hrs Per Day: 1.5 hours per day Patient and/or Family Agrees t: Yes Safety Risks/Education Patient Education: Gait Training, Transfer Techniques, Steps, Correct Positioning, Disease Process, Safety Issues Teaching Recipient: Patient Teaching Methods: Demonstration, Discussion Response to Teaching: Verbalize Understanding, Return Demonstration, Reinforcement Needed Time/GCodes Time In: 1030 Time Out: 1200 Total Billed Treatment Time: 90 Total Billed Treatment 1,EX30m,FA30m,GT30m G Codes Necessary: NISA Echevarria FLOAT PHLEBOTOMIST May 22, 2018 12:04
[2018-05-22] MEDS: rOPINIRole 0.25 MG (REQUIP) TAB PO PRN ×2 (12:26→20:37)
--- NOTE | 2018-05-22 15:02 | Progress Note-Hospitalist ---
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 She has no concerns at this time except "fear of falling." I have reviewed her meds and recent hospital stay. Subjective/Events-last exam Pt reports feeling well today. Resting from rehab. No other concerns. Objective Exam Vital Signs Vital Signs Date Time Temp Pulse Resp B/P (MAP) Pulse Ox O2 Delivery O2 Flow Rate FiO2 05/22/18 09:00 Nasal Cannula 2.00 05/22/18 07:24 97 05/22/18 05:08 97.6 86 20 105/58 (74) Capillary Refill : Less Than 3 Seconds General Appearance: No Apparent Distress, Chronically ill Respiratory: Lungs Clear, No Respiratory Distress Cardiovascular: Regular Rate, Rhythm, Systolic Murmur Gastrointestinal: Normal Bowel Sounds, Soft Neurologic/Psychiatric: Alert, Oriented x3 Results/Procedures Lab Laboratory Tests 05/22/18 05:20 Patient resulted labs reviewed. Assessment/Plan Assessment and Plan Assess & Plan/Chief Complaint hip fracture and debility Continue PT/OT Pain management Ortho consulted Mitral valve regurg, aortic valve replaced On coumadin- dose just increased Trend INR Dr Parker consulted, appreciate recs Anemia Will get iron studies, may benefit from iron infusion Clinical Quality Measures DVT/VTE Risk/Contraindication: Risk Factor Score Per Nursin RFS Level Per Nursing on Admit: 4+=Very High VENANCIO ARREAGA MD May 22, 2018 3:02 pm
[2018-05-22] MEDS: warFARin 2 MG (COUMADIN) TAB PO SCH (17:27)
[2018-05-22 18:15] VITALS: BP 95/53
[2018-05-22 20:00] VITALS: BP 109/53
[2018-05-22] MEDS: MELATONIN 3 MG TABLET PO PRN (20:36)
[2018-05-23] MEDS: HYDROcodone/APAP 5 MG/325 MG (LORTAB) TAB PO PRN ×4 (03:02→21:07)
[2018-05-23 06:00] VITALS: BP 121/64
[2018-05-23] MEDS: KCL 10 MEQ TAB (MICRO K) PO SCH ×2 (06:00→17:51)
[2018-05-23] MEDS: PANTOPRAZOLE 40 MG (PROTONIX) TAB PO SCH (06:00)
[2018-05-23] MEDS: LEVOTHYROXINE 100 MCG (LEVOTHROID) TAB PO SCH (06:00)
[2018-05-23] MEDS: MULTIVIT W/MINERALS TAB (THERAGRAN M) PO SCH (06:00)
[2018-05-23] MEDS: FUROSEMIDE 40 MG (LASIX) TAB PO SCH ×2 (06:00→17:51)
[2018-05-23] MEDS: RT-ALBUTEROL SULF 2.5 MG/3 ML PRE-MIX VIAL INH SCH ×2 (06:36→19:32)
--- NOTE | 2018-05-23 07:33 | PM & R (SOAP) Progress Note ---
Subjective This was a face to face visit with the patient. Date Seen by Provider: May 23, 2018 Time Seen by Provider: 06:55 Subjective/Events-last exam Patient was seen in her room this AM Family training for this week Patient SBA for transfers INR approaching therapeutic range Hospitalist managing Coumadin dosing Date Identified: May 23, 2018 Time Identified: 07:00 Medication Intervention: Coumadin dosage being adjusted for therapeutic INR Review of Systems Musculoskeletal: leg pain Neurological: Weakness Objective Physician Exam Last Set of Vital Signs Vital Signs Date Time Temp Pulse Resp B/P (MAP) Pulse Ox O2 Delivery O2 Flow Rate FiO2 05/23/18 06:36 95 05/23/18 06:00 97.2 81 18 121/64 (83) Nasal Cannula 2.00 Capillary Refill : Less Than 3 Seconds I&O Intake and Output 05/23/18 00:00 Intake Total 990 ml Balance 990 ml Intake Oral 990 ml # Voids 7 # Bowel Movements 1 General: Alert, Oriented X3, Cooperative, No Acute Distress HEENT: Atraumatic, PERRLA, EOMI, Mucous Memb Moist/[place], Other (02 by N/C in place) Neck: Supple, No JVD Lungs: Clear to Auscultation Heart: Regular Rate, Normal S1, Other (Systolic murmur at left sternal border) Abdomen: Normal Bowel Sounds, Soft, No Tenderness Extremities: No Clubbing, Other (trace edema rt ankle) Neuro: Normal Speech, Sensation Intact, Other (Strength LLE 3+/5 RLE 3-/5 Upper limb strength 4/5) Psych/Mental Status: Mental Status NL Results Lab Data Laboratory Tests 05/20/18 09:25: Prothrombin Time 19.2H, INR Comment 1.6H 05/20/18 16:10: White Blood Count 5.8, Red Blood Count 2.71L, Hemoglobin 8.8L, Hematocrit 28L, Mean Corpuscular Volume 103H, Mean Corpuscular Hemoglobin 32, Mean Corpuscular Hemoglobin Concent 32, Red Cell Distribution Width 15.4H, Platelet Count 261, Mean Platelet Volume 9.6, Neutrophils (%) (Auto) 69, Lymphocytes (%) (Auto) 16, Monocytes (%) (Auto) 11, Eosinophils (%) (Auto) 3, Basophils (%) (Auto) 1, Neutrophils # (Auto) 4.1, Lymphocytes # (Auto) 0.9L, Monocytes # (Auto) 0.7, Eosinophils # (Auto) 0.2, Basophils # (Auto) 0.0, Sodium Level 137, Potassium Level 4.5, Chloride Level 99, Carbon Dioxide Level 30, Anion Gap 8, Blood Urea Nitrogen 23H, Creatinine 1.10, Estimat Glomerular Filtration Rate 48, BUN/ Creatinine Ratio 21, Glucose Level 86, Calcium Level 9.3 05/22/18 05:20: Prothrombin Time 21.6H, INR Comment 1.9H, White Blood Count 5.4, Red Blood Count 2.64L, Hemoglobin 8.6L, Hematocrit 27L, Mean Corpuscular Volume 103H, Mean Corpuscular Hemoglobin 33, Mean Corpuscular Hemoglobin Concent 32, Red Cell Distribution Width 15.6H, Platelet Count 287, Mean Platelet Volume 9.6, Sodium Level 136, Potassium Level 4.0, Chloride Level 98, Carbon Dioxide Level 28, Anion Gap 10, Blood Urea Nitrogen 28H, Creatinine 1.31H, Estimat Glomerular Filtration Rate 39, BUN/Creatinine Ratio 21, Glucose Level 82, Calcium Level 9.1 , Iron Level 43, Total Iron Binding Capacity 263L, Unsaturated Iron Binding Capacity 220, Transferrin % Saturation 16, Ferritin 373.1H Assessment/Plan Assessment and Plan RT fem neck fracture s/p RT^ Hip replacement DR Ortiz WBAT CHF/atelectasis improved with diuretic and resp treatments Postop anemia Severe MV stenosis AVR with chronic anticoagulation Cardiology and Hospitalist managing Mild CAD Nonischemic cardiomyopathy S/P ICD PVD AAA Resp insuff on HTN Plan Continue PT/OT Team Conference held yesterday see report for full functional update and POC Discharge set tentatively for next week Family training this week F/U with cardiology and Hospitalist prn Adjust Coumadin dose as needed to obtain therapeutic INR Co-Morbidities that are continuing to impact the rehab process: (include details ) MARYBEL ROSARIO MD May 23, 2018 07:33
--- NOTE | 2018-05-23 08:24 | Cardiology Progress Note ---
Subjective Date Seen by Provider: May 23, 2018 Time Seen by Provider: 08:10 Subjective/Events-last exam Patient is sitting up in chair, no new complaints. Denies any CP. Reports dyspnea with exertion, has been requiring continuous O2 Objective-Cardiology Exam Last Set of Vital Signs Vital Signs 05/23/18 05/23/18 06:00 06:36 Temp 97.2 Pulse 81 Resp 18 B/P (MAP) 121/64 (83) Pulse Ox 95 O2 Delivery Nasal Cannula O2 Flow Rate 2.00 Capillary Refill : Less Than 3 Seconds I&O Intake and Output 05/23/18 00:00 Intake Total 990 ml Balance 990 ml Intake Oral 990 ml # Voids 7 # Bowel Movements 1 General: Alert, Oriented X3, Cooperative, No Acute Distress HEENT: Atraumatic, PERRLA, EOMI, Mucous Memb Moist/[place], Other (02 by N/C in place) Neck: Supple, No JVD Lungs: Clear to Auscultation Heart: Regular Rate, Normal S1, Other (Systolic murmur at left sternal border) Abdomen: Normal Bowel Sounds, Soft, No Tenderness Extremities: No Clubbing, Other (trace edema rt ankle) Neuro: Normal Speech, Sensation Intact, Other (Strength LLE 3+/5 RLE 3-/5 Upper limb strength 4/5) Psych/Mental Status: Mental Status NL A/P-Cardiology Admission Diagnosis Hip fracture Coronary artery disease Aortic valve stenosis Mitral regurgitation Assessment/Plan Right hip fracture, status post surgical repair done on May 11, 2018, recovering slowly, doing well. Continue to monitor Chest pain nonspecific etiology, right-sided, musculoskeletal in nature, better at this time. Continue to monitor Anemia, continue to monitor H/H Questionable pneumonia vs atelectasis on CXR, followed and managed by primary care physician History of mild coronary artery disease, nonobstructive disease by cardiac catheterization in September 2014, stress test in December 2016 showing no ischemia, continue to monitor closely Congestive heart failure, chronic left ventricular systolic dysfunction, nonischemic cardiomyopathy, secondary to valvular heart disease. 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 Severe mitral valve stenosis, rheumatic valve, history of severe mitral regurgitation and pulmonary hypertension with estimated PA pressure of 55 mmHg, severely dilated left atrium. She was seen Dr. Page at in the past and she was considered high risk for valve surgery. She is not a candidate for mitral clip surgery due to her severe mitral stenosis, patient was referred for TMVR with Dr. Davila at , she decided to continue with conservative management and will consider the procedure if she become more symptomatic. 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 Last echocardiogram was done in April 2018 and the valve was functioning normally Peripheral vascular disease, patient has venous insufficiency on the right side that required ablation,peripheral angiogram May 2017, intervention to the anterior tibial artery, the wound has healed then developed a new ulcer after a trauma. Did balloon angioplasty to the right anterior tibial artery proximal portion has significant improvement the distal portion is occluded and did not improve, the posterior tibial artery and peroneal arteries were occluded with no collaterals in that area. The right SFA has multiple segment of moderate to severe stenosis, balloon angioplasty to the mid SFA with good results. Abdominal aorta has moderate disease, the left SFA has mild to moderate disease down to the trifurcation. We'll continue with medical therapy, the ulcer on her foot is completely healed. Continue to monitor Carotid stenosis, continue to monitor, followed by heart and vascular care. 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 followed and monitored by heart and vascular care. Hypertension, restart home medications and monitor Hyperlipidemia, continue on current medication monitor lipids Clinical Quality Measures DVT/VTE Risk/Contraindication: Risk Factor Score Per Nursin RFS Level Per Nursing on Admit: 4+=Very High THANH LAWTON May 23, 2018 08:24
--- NOTE | 2018-05-23 08:38 | Occupational Ther Daily Note ---
OT Current Status-Daily Note Subjective Pt alert, lying in bed. Family present in room. Pt agrees to therapy. Pt complains of tail bone being sore, nrsg notified. During shower, O2 level at 83 without O2, O2 placed on and came up to 89. O2 remained on for remainder of therapy session. Mental Status/Objective Patient Orientation: Person, Place, Time, Situation Functional [place] Measure 0=Not Assessed/NA 4=Minimal Assistance 1=Total Assistance 5=Supervision or Setup 2=Maximal Assistance 6=Modified [place] 3=Moderate Assistance 7=Complete [place] ADL-Treatment Functional [place] Measure 0=Not Assessed/NA 4=Minimal Assistance 1=Total Assistance 5=Supervision or Setup 2=Maximal Assistance 6=Modified [place] 3=Moderate Assistance 7=Complete IndependenceIRFPAI Quality Coding Scale 6 Independent with activity with or without an assistive device 5 Patient requires set up or clean up by helper. Patient completes activity by themselves 4 Supervision or touching assist (CGA). [place] provide cues , steadying assist 3 The helper provides less than half the effort to complete the activity 2 The helper provides more than half the effort to complete the activity 1 Dependent. The helper does all the effort to complete an activity 7 Patient refused to complete or attempt activity 9 The patient did not perform the activity before the current illness or injury 88 Not attempted due to Medical conditions or safety concerns Eating (FIM): 7 (Pt able to manipulate packaging and uses normal utensils. ) Eating (QC): 6 Grooming (FIM): 6 (Mod I, pt completes by self it sitting position in front of sink. ) Oral Hygiene (QC): 6 Bathing (FIM): 6 (Mod I, pt completes using long handled sponge, raised shower chair, hand held shower, and grabbars for stability. ) Bathing Location: L Arm, R Arm, L Upper Leg, R Upper Leg, L Lower Leg ( including foot), R Lower Leg (including foot), Chest, Abdomen, Buttocks, Perineal Area Shower/Bathe Self (QC): 6 Upper Body (FIM): 5 (Set up, pt able to don/doff clothing in sitting.) Upper Body Dressing (QC): 5 Lower Body Dressing (FIM): 5 (Set up, pt able to complete using AE to reach LE as to adhere to hip precautions. Assist to don JAVIER hose. ) Lower Body Dressing (QC): 4 On/Off Footwear (QC): 4 Toileting (FIM): 5 (SBA, pt completes using FWW and grabbars for stability in standing to hike pants over hips. ) Toileting Hygiene (QC): 5 Transfers (B, C, W/C) (FIM): 5 (SBA, with HOB raised, pt able to go from supine to EOB. Pt uses FWW for stability in standing. ) Toilet/Commode Transfer (FIM): 5 (SBA, pt uses grabbars and FWW for stability. ) Toilet Transfer (QC): 5 Shower Transfer(FIM): 5 (SBA, using grabbars, rasied shower chair and FWW for stability. ) Other Treatment Pt ambulated with SBA using FWW to large shower room. MCGHEE demonstrated proper shower bench transfer techniques. Pt was able to demonstrate technique and verbalize understanding indicating ability to complete by self at home. Pt ambulated to therapy kitchen and simulated multiple tasks that would be completed at home. MUSA/s student verbalized multiple safety precautions and techniques to be used while in kitchen. Pt ambulated back to room with SBA using FWW. After therapy, pt sitting in recliner with call light/phone within reach. All needs met in room. Education OT Patient Education: Correct positioning, Safety issues, Transfer techniques, Use of adapted equipment Teaching Recipient: Patient, Family Teaching Methods: Demonstration, Discussion Response to Teaching: Verbalize Understanding, Return Demonstration OT Short Term Goals Short Term Goals Time Frame: May 21, 2018 Grooming(FIM): 6 Toilet/Commode Transfer(FIM): 5 Additional Short Term Goals: 1-Demonstrate ADL Tasks, 2-Verbalize Understanding , 3-ImproveStrength/Rick 1=Demonstrate adherence to instructed precautions during ADL tasks. 2=Patient will verbalize/demonstrate understanding of assistive devices/ modifications for ADL. 3=Patient will improve strength/tolerance for activity to enable patient to perform ADL's. OT Mcc Goals Mcc Goals Time Frame: Jun 01, 2018 Eating (FIM): 7 (no dentures) Eating (QC): 6 Groomin Oral Hygiene (QC): 6 Bathing(FIM): 6 Shower/Bathe Self (QC): 6 Upper Body Dressing(FIM): 6 Upper Body Dressing (QC): 6 Lower Body Dressing(FIM): 6 Lower Body Dressing (QC): 6 On/Off Footwear (QC): 6 Toileting(FIM): 6 Toileting Hygiene (QC): 6 Toilet/Commode Transfer(FIM): 6 Toilet/Commode Transfer (QC): 6 Shower Transfer(FIM): 5 Additional Goals: 1-Demonstrate ADL Tasks, 2-Verbalize Understanding, 3- ImproveStrength/Rick 1=Demonstrate adherence to instructed precautions during ADL tasks. 2=Patient will verbalize/demonstrate understanding of assistive devices/ modifications for ADL. 3=Patient will improve strength/tolerance for activity to enable patient to perform ADL's. OT Education/Plan Problem List/Assessment Pt would benefit from skilled OT to increase her independence in basic self care to allow her to safely return home Discharge Recommendations Plan/Recommendations: Continue POC Treatment Plan/Plan of Care Patient would benefit from OT for education, treatment and training to promote independence in ADL's, mobility, safety and/or upper extremity function for ADL' s. Plan of Care: ADL Retraining, Functional Mobility, Group Exercise/Act as Ind ( education, exercise, activity tolerance, funct mobility, socialization), UE Funct Exercise/Act, UE Neuromus Re-Ed/Coord Treatment Duration: Jun 01, 2018 Frequency: At least 5 of 7 days/Wk (IRF) Estimated Hrs Per Day: 1.5 hours per day Agreement: Yes Rehab Potential: Good Time/GCodes Start Time: 06:55 Stop Time: 08:30 Total Time Billed (hr/min): 95 Billed Treatment Time 1 visit- ADL 4 (60 min) FA 2 (35 min) HARDIK NUNEZ May 23, 2018 08:38
[2018-05-23 08:44] LABS: INR 1.9 (0.8-1.4); PROTHROMBIN TIME PATIENT 21.6 SEC (12.2-14.7)
[2018-05-23 08:45] VITALS: BP 128/67
[2018-05-23] MEDS: MEXILETINE 150 MG (MEXITIL) CAPSULE PO SCH ×2 (08:48→21:07)
[2018-05-23] MEDS: CLOPIDOGREL 75 MG (PLAVIX) TABLET PO SCH (08:48)
[2018-05-23] MEDS: DIGOXIN 0.125 MG (LANOXIN) TAB PO SCH (08:48)
[2018-05-23] MEDS: ISOSORBIDE MONONITRATE 30 MG (IMDUR) TAB PO SCH (08:48)
[2018-05-23] MEDS: LORATADINE (CLARITIN) 10 MG TAB PO SCH (08:48)
[2018-05-23] MEDS: SACUBITRIL/VALSARTAN 24/26 MG (ENTRESTO) TABLET PO SCH ×2 (08:48→21:06)
[2018-05-23] MEDS: SENNOSIDES 8.6 MG (SENOKOT) TAB PO SCH ×2 (09:23→21:07)
[2018-05-23 09:38] VITALS: BP 103/49
--- NOTE | 2018-05-23 11:51 | Physical Therapy Daily Note ---
PT Daily Note-Current Subjective Pt sitting in recliner upon arrival. Pt agrees to PT. Pt reports discharging on Sunday. Mental Status Patient Orientation: Person, Place, Time, Situation Pt on Room Air at this time per pt after visiting with Dr Parker. Pt's O2 level stays at 92% and above during tx but is monitored for any signs of fatigue. Transfers Functional [place] Measure 0=Not Assessed/NA 4=Minimal Assistance 1=Total Assistance 5=Supervision or Setup 2=Maximal Assistance 6=Modified [place] 3=Moderate Assistance 7=Complete IndependenceIRFPAI Quality Coding Scale 6 Independent with activity with or without an assistive device 5 Patient requires set up or clean up by helper. Patient completes activity by themselves 4 Supervision or touching assist (CGA). [place] provide cues , steadying assist 3 The helper provides less than half the effort to complete the activity 2 The helper provides more than half the effort to complete the activity 1 Dependent. The helper does all the effort to complete an activity 7 Patient refused to complete or attempt activity 9 The patient did not perform the activity before the current illness or injury 88 Not attempted due to Medical conditions or safety concerns Scootin Sit to/from Stand: 5 Sit to Stand (QC): 5 Weight Bearing Right Lower Extremity: Right Weight Bearing/Tolerated Left Lower Extremity: Left Full Weight Bearing Gait Training Does the Patient Walk?: Yes Distance (FIM): 3=150 ft Distance: 350' Walk 10 feet (QC): 5 Walk 50 ft with 2 Turns(QC): 5 Walk 150 ft (QC): 5 Gait Level of Assist: 5 Gait Persons Needed: 1 Gait Assistive Device: FWW Pt has a slow shruthi, slight antalgic gait pattern. Pt needs occasional rest break for fatigue. Wheelchair Training Does the Pt Use a Wheelchair?: No Stair Training Stair Training: Handrails/: 2 handrails #of Steps: 8 1 Step (curb) (QC): 5 4 Steps (QC): 5 Stairs: Pattern: Step to Level of Assist: 5 Pt fatigues after 2 sets of stairs. Pt rests in chair to recover but recovery is quick. Exercises Seated Therapy Exercises: Ankle pumps, Long arc quads, Hip flexion, Kicking activity Seated Reps: 20 NuStep Minutes: 15 NuStep Workload: 4 Treatments Pt transfers and ambulates using FWW at SBA. Pt completes car transfer, 15m on NuStep with WL 4, Seated Ex, 2 sets of 4 stairs all with rest breaks in between each task. After pt ambulates, she returns to room to rest in recliner with all needs met. Assessment Current Status: Good Progress Pt fatigues occasional during tx so she took short rest breaks. Pt recovers quickly and O2 stays 92% and above on Room Air during tx. PT Short Term Goals Short Term Goals Time Frame: May 14, 2018 Wheelchair Distance: 150' PT Skin Carver Goals Mcfp Goals PT Mcfp Goals Time Frame: Jun 01, 2018 Transfers (B,C,W/C) (FIM): 6 Sit to Lying (QC): 6 Lying-Sitting on Side/Bed(QC): 6 Sit to Stand (QC): 6 Rollin Roll Left to Right (QC): 6 Chair/Ywj-yg-Ccsoj Xfer(QC): 6 Car Transfer (QC): 6 Does the Patient Walk: Yes Gait (FIM): 6 Gait distance (FIM): 3=150 ft Distance: 200' Walk 10 feet (QC): 6 Walk 10ft-Uneven Surface(QC): 6 Walk 50ft with 2 Turns (QC): 6 Walk 150 ft (QC): 6 Gait Level of Assist: 6 Gait Assistive Device: FWW Stairs (FIM): 5 # of Steps: 8 1 Step (curb) (QC): 5 4 Steps (QC): 5 12 Steps (QC): 9 Stairs Level Of Assist: 5 Picking up an Object (QC): 5 PT Plan Problem List Problem List: Activity Tolerance, Functional Strength Treatment/Plan Treatment Plan: Continue Plan of Care Treatment Plan: Bed Mobility, Education, Functional Activity Rick, Functional Strength, Group Therapy, Gait, Safety, Therapeutic Exercise, Transfers Treatment Duration: Jun 01, 2018 Frequency: At least 5 of 7 days/Wk (IRF) Estimated Hrs Per Day: 1.5 hours per day Patient and/or Family Agrees t: Yes Safety Risks/Education Patient Education: Gait Training, Transfer Techniques, Correct Positioning, Safety Issues Teaching Recipient: Patient Teaching Methods: Discussion Response to Teaching: Verbalize Understanding Time/GCodes Time In: 1000 Time Out: 1130 Total Billed Treatment Time: 90 Total Billed Treatment 1, GT x2 (30m), EX x2 (30m) & FA x2 (30m) G Codes Necessary: No TREIBER,[employer]VIL[employer]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
[2018-05-23 15:37] VITALS: BP 106/56
--- NOTE | 2018-05-23 15:55 | Cardiology Progress Note ---
Subjective Date Seen by Provider: May 23, 2018 Time Seen by Provider: 15:54 Subjective/Events-last exam Patient is sitting in a chair, sitting this morning, feeling well. Reporting improvement in her symptoms, still having some shortness of breath Review of Systems General: No Chills, No Night Sweats, No Fatigue, No Malaise, No Appetite, No Other HEENT: No Head Aches, No Visual Changes, No Eye Pain, No Ear Pain, No Dysphasia , No Sinus Congestion, No Post Nasal Drip, No Sore Throat, No Other Pulmonary: Dyspnea; No Cough, No Pleuritic Chest Pain, No Other Cardiovascular: No: Chest Pain, Palpitations, Orthopnea, Paroxysmal Noc. Dyspnea, Edema, Lt Headedness, Other Objective-Cardiology Exam Last Set of Vital Signs Vital Signs 05/23/18 15:37 Temp 99.1 Pulse 89 Resp 16 B/P (MAP) 106/56 (73) Pulse Ox 98 O2 Delivery Nasal Cannula O2 Flow Rate 2.00 Capillary Refill : Less Than 3 Seconds I&O Intake and Output 05/23/18 00:00 Intake Total 990 ml Balance 990 ml Intake Oral 990 ml # Voids 7 # Bowel Movements 1 General: Alert, Oriented X3, Cooperative, No Acute Distress HEENT: Atraumatic, PERRLA, EOMI, Mucous Memb Moist/[place], Other (02 by N/C in place) Neck: Supple, No JVD Lungs: Clear to Auscultation Heart: Regular Rate, Normal S1, Normal S2, Other (Systolic murmur at left sternal border) Abdomen: Normal Bowel Sounds, Soft, No Tenderness Extremities: No Clubbing, Other (trace edema rt ankle) Neuro: Normal Speech, Sensation Intact, Other (Strength LLE 3+/5 RLE 3-/5 Upper limb strength 4/5) Psych/Mental Status: Mental Status NL Results Lab Laboratory Tests Test 05/23/18 08:10 Range/Units Prothrombin Time 21.6 H 12.2-14.7 SEC INR Comment 1.9 H 0.8-1.4 A/P-Cardiology Admission Diagnosis Hip fracture Coronary artery disease Aortic valve stenosis Mitral regurgitation Assessment/Plan Right hip fracture, status post surgical repair done on May 11, 2018, recovering slowly, doing well. Continue to monitor Chest pain nonspecific etiology, right-sided, musculoskeletal in nature, better at this time. Continue to monitor Anemia, continue to monitor H/H Questionable pneumonia vs atelectasis on CXR, followed and managed by primary care physician History of mild coronary artery disease, nonobstructive disease by cardiac catheterization in September 2014, stress test in December 2016 showing no ischemia, continue to monitor closely Congestive heart failure, chronic left ventricular systolic dysfunction, nonischemic cardiomyopathy, secondary to valvular heart disease. Has history of ICD implanted BURRER MACHINE-D done in August 2012. Severe mitral valve stenosis, rheumatic valve, history of severe mitral regurgitation and pulmonary hypertension with estimated PA pressure of 55 mmHg, severely dilated left atrium. She was seen Dr. Page at in the past and she was considered high risk for valve surgery. She is not a candidate for mitral clip surgery due to her severe mitral stenosis, patient was referred for TMVR with Dr. Davila at , she decided to continue with conservative management and will consider the procedure if she become more symptomatic. 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 Last echocardiogram was done in April 2018 and the valve was functioning normally Peripheral vascular disease, patient has venous insufficiency on the right side that required ablation,peripheral angiogram May 2017, intervention to the anterior tibial artery, the wound has healed then developed a new ulcer after a trauma. Did balloon angioplasty to the right anterior tibial artery proximal portion has significant improvement the distal portion is occluded and did not improve, the posterior tibial artery and peroneal arteries were occluded with no collaterals in that area. The right SFA has multiple segment of moderate to severe stenosis, balloon angioplasty to the mid SFA with good results. Abdominal aorta has moderate disease, the left SFA has mild to moderate disease down to the trifurcation. We'll continue with medical therapy, the ulcer on her foot is completely healed. Continue to monitor Carotid stenosis, continue to monitor, followed by heart and vascular care. 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 followed and monitored by heart and vascular care. Hypertension, restart home medications and monitor Hyperlipidemia, continue on current medication monitor lipids Clinical Quality Measures DVT/VTE Risk/Contraindication: Risk Factor Score Per Nursin RFS Level Per Nursing on Admit: 4+=Very High PRANEETH SHUKLA MD May 23, 2018 15:55
[2018-05-23] MEDS: warFARin 1 MG (COUMADIN) TAB PO SCH (17:51)
[2018-05-23] MEDS: MELATONIN 3 MG TABLET PO PRN (21:08)
[2018-05-23] MEDS: rOPINIRole 0.25 MG (REQUIP) TAB PO PRN (21:08)
[2018-05-24] MEDS: HYDROcodone/APAP 5 MG/325 MG (LORTAB) TAB PO PRN ×4 (01:38→21:30)
[2018-05-24 05:04] VITALS: BP 107/57
[2018-05-24 05:39] LABS: INR 1.9 (0.8-1.4); PROTHROMBIN TIME PATIENT 22.1 SEC (12.2-14.7)
[2018-05-24] MEDS: METOLAZONE 2.5 MG (ZAROXOLYN) TAB PO SCH (06:16)
[2018-05-24] MEDS: FUROSEMIDE 40 MG (LASIX) TAB PO SCH ×2 (06:16→17:25)
[2018-05-24] MEDS: MULTIVIT W/MINERALS TAB (THERAGRAN M) PO SCH (06:16)
[2018-05-24] MEDS: LEVOTHYROXINE 100 MCG (LEVOTHROID) TAB PO SCH (06:16)
[2018-05-24] MEDS: rOPINIRole 0.25 MG (REQUIP) TAB PO PRN ×2 (06:16→21:31)
[2018-05-24] MEDS: PANTOPRAZOLE 40 MG (PROTONIX) TAB PO SCH (06:16)
[2018-05-24] MEDS: KCL 10 MEQ TAB (MICRO K) PO SCH ×2 (06:16→17:25)
--- NOTE | 2018-05-24 08:09 | PM & R (SOAP) Progress Note ---
Subjective This was a face to face visit with the patient. Date Seen by Provider: May 24, 2018 Time Seen by Provider: 07:45 Subjective/Events-last exam Patient was seen in her room this AM Patient Modified Independent for transfers INR noted Patient all set for discharge on Sunday the .Current meds reviewed Date Identified: May 24, 2018 Time Identified: 07:30 Medication Intervention: Coumadin dose being adjusted Review of Systems Musculoskeletal: leg pain Objective Physician Exam Last Set of Vital Signs Vital Signs Date Time Temp Pulse Resp B/P (MAP) Pulse Ox O2 Delivery O2 Flow Rate FiO2 05/24/18 05:04 99.4 84 16 107/57 (74) 96 Nasal Cannula 2.00 Capillary Refill : Less Than 3 Seconds I&O Intake and Output 05/24/18 00:00 Intake Total 1200 ml Balance 1200 ml Intake Oral 1200 ml # Voids 7 General: Alert, Oriented X3, Cooperative, No Acute Distress HEENT: Atraumatic, PERRLA, EOMI, Mucous Memb Moist/[place], Other (02 by N/C in place) Neck: Supple, No JVD Lungs: Clear to Auscultation Heart: Regular Rate, Normal S1, Normal S2, Other (Systolic murmur at left sternal border) Abdomen: Normal Bowel Sounds, Soft, No Tenderness Extremities: No Clubbing, Other (trace edema rt ankle) Neuro: Normal Speech, Sensation Intact, Other (Strength LLE 3+/5 RLE 3-/5 Upper limb strength 4/5) Psych/Mental Status: Mental Status NL Results Lab Data Laboratory Tests 05/22/18 05:20: White Blood Count 5.4, Red Blood Count 2.64L, Hemoglobin 8.6L, Hematocrit 27L, Mean Corpuscular Volume 103H, Mean Corpuscular Hemoglobin 33, Mean Corpuscular Hemoglobin Concent 32, Red Cell Distribution Width 15.6H, Platelet Count 287, Mean Platelet Volume 9.6, Prothrombin Time 21.6H, INR Comment 1.9H, Sodium Level 136, Potassium Level 4.0, Chloride Level 98, Carbon Dioxide Level 28, Anion Gap 10, Blood Urea Nitrogen 28H, Creatinine 1.31H, Estimat Glomerular Filtration Rate 39, BUN/Creatinine Ratio 21, Glucose Level 82, Calcium Level 9.1 , Iron Level 43, Total Iron Binding Capacity 263L, Unsaturated Iron Binding Capacity 220, Transferrin % Saturation 16, Ferritin 373.1H 05/23/18 08:10: Prothrombin Time 21.6H, INR Comment 1.9H 05/24/18 05:10: Prothrombin Time 22.1H, INR Comment 1.9H Assessment/Plan Assessment and Plan RT fem neck fracture s/p RT hip replacement DR Ortiz WBAT CHF/Atelectasis treated Postop anemia Severe MV stenosis AVR with chronic anticoagulation Mild CAD Nonischemic cardiomyopathy S/P ICD PVD AAA Resp insuuf on HTN Plan Continue PT/OT Family training Discharge remains set for the as per above Current meds reviewed F/U with PCP and ortho on an outpatient basis Co-Morbidities that are continuing to impact the rehab process: (include details ) MARYBEL ROSARIO MD May 24, 2018 08:08
[2018-05-24] MEDS ORDERED: ACHD5005 PO (08:15)
[2018-05-24] MEDS ORDERED: METO-387 PO (08:15)
[2018-05-24] MEDS: SENNOSIDES 8.6 MG (SENOKOT) TAB PO SCH ×2 (08:24→20:34)
[2018-05-24] MEDS: CLOPIDOGREL 75 MG (PLAVIX) TABLET PO SCH (08:24)
[2018-05-24] MEDS: MEXILETINE 150 MG (MEXITIL) CAPSULE PO SCH ×2 (08:24→20:34)
[2018-05-24] MEDS: SACUBITRIL/VALSARTAN 24/26 MG (ENTRESTO) TABLET PO SCH ×2 (08:24→20:34)
[2018-05-24] MEDS: LORATADINE (CLARITIN) 10 MG TAB PO SCH (08:24)
[2018-05-24] MEDS: DIGOXIN 0.125 MG (LANOXIN) TAB PO SCH (08:25)
[2018-05-24] MEDS: ISOSORBIDE MONONITRATE 30 MG (IMDUR) TAB PO SCH (08:25)
--- NOTE | 2018-05-24 10:57 | Physical Therapy Daily Note ---
PT Daily Note-Current Subjective Pt reports she did not sleep well last night. Reports her right femur area is sore. Pain Numeric Pain Scale: 2 Location: Right Location Body Site: Thigh Pain Description: Ache (sore) Comment: declines taking pain meds Mental Status Patient Orientation: Person, Place, Time, Situation Transfers Functional [place] Measure 0=Not Assessed/NA 4=Minimal Assistance 1=Total Assistance 5=Supervision or Setup 2=Maximal Assistance 6=Modified [place] 3=Moderate Assistance 7=Complete IndependenceIRFPAI Quality Coding Scale 6 Independent with activity with or without an assistive device 5 Patient requires set up or clean up by helper. Patient completes activity by themselves 4 Supervision or touching assist (CGA). [place] provide cues , steadying assist 3 The helper provides less than half the effort to complete the activity 2 The helper provides more than half the effort to complete the activity 1 Dependent. The helper does all the effort to complete an activity 7 Patient refused to complete or attempt activity 9 The patient did not perform the activity before the current illness or injury 88 Not attempted due to Medical conditions or safety concerns Pt is mod indep with sit to stand transfers all attempts. Worked on sit to stand 2 x 5 reps for functional strengthening. Weight Bearing Right Lower Extremity: Right Weight Bearing/Tolerated Left Lower Extremity: Left Full Weight Bearing Gait Training Does the Patient Walk?: Yes Gait (FIM): 5 Distance (FIM): 3=150 ft Distance: 150 ft x 2 and 200 ft x 2 Gait Assistive Device: FWW antalgic gait with decreased step length left due to pain with WB right. Adjusted FWW Exercises Seated Therapy Exercises: Ankle pumps, Sit to stand, Long arc quads, Hip flexion (left) Seated Reps: 15 (to increase functional strength for gait and transfers.) NuStep Minutes: 15 Treatments Education on functional mobility and safety; also on what to expect at home. Assessment Current Status: Good Progress Pt making functional gains and is nearly mod indep with all mobility at this time. PT Short Term Goals Short Term Goals Time Frame: May 14, 2018 Wheelchair Distance: 150' PT Intermediate Goals Watch Case Polisher Goals PT Intermediate Goals Time Frame: Jun 01, 2018 Transfers (B,C,W/C) (FIM): 6 Sit to Lying (QC): 6 Lying-Sitting on Side/Bed(QC): 6 Sit to Stand (QC): 6 Rollin Roll Left to Right (QC): 6 Chair/Yeo-ij-Vfavw Xfer(QC): 6 Car Transfer (QC): 6 Does the Patient Walk: Yes Gait (FIM): 6 Gait distance (FIM): 3=150 ft Distance: 200' Walk 10 feet (QC): 6 Walk 10ft-Uneven Surface(QC): 6 Walk 50ft with 2 Turns (QC): 6 Walk 150 ft (QC): 6 Gait Level of Assist: 6 Gait Assistive Device: FWW Stairs (FIM): 5 # of Steps: 8 1 Step (curb) (QC): 5 4 Steps (QC): 5 12 Steps (QC): 9 Stairs Level Of Assist: 5 Picking up an Object (QC): 5 PT Plan Problem List Problem List: Activity Tolerance, Functional Strength Treatment/Plan Treatment Plan: Continue Plan of Care Treatment Plan: Bed Mobility, Education, Functional Activity Rick, Functional Strength, Group Therapy, Gait, Safety, Therapeutic Exercise, Transfers Treatment Duration: Jun 01, 2018 Frequency: At least 5 of 7 days/Wk (IRF) Estimated Hrs Per Day: 1.5 hours per day Patient and/or Family Agrees t: Yes Safety Risks/Education Patient Education: Safety Issues Teaching Recipient: Patient Teaching Methods: Discussion Response to Teaching: Verbalize Understanding Discharge Recommendations Therapy D/C Recommendations: Physical Therapy Home Care Time/GCodes Time In: 930 Time Out: 1030 Total Billed Treatment Time: 60 Total Billed Treatment visit EX 30 Gt 30 HARDIK NGUYEN PT May 24, 2018 10:57
--- NOTE | 2018-05-24 13:03 | Occupational Ther Daily Note ---
OT Current Status-Daily Note Subjective Pt sitting in chair, agrees to treatment. Pt states she had a rough night, but currently no pain. Mental Status/Objective Functional [place] Measure 0=Not Assessed/NA 4=Minimal Assistance 1=Total Assistance 5=Supervision or Setup 2=Maximal Assistance 6=Modified [place] 3=Moderate Assistance 7=Complete [place] ADL-Treatment Pt requests sponge bath this morning. Sit to stand from chair with modified independence. Gait to restroom with FWW. Transfer to toilet with modified independence using grab bar. Pt able to complete toileting hygiene and clothing management with modified independence. Sponge bath completed seated at sink. Pt able to wash/dry all areas. Don button up shirt with set up. Pt donned underwear and pants with set up using dressing stick to start over feet. Assist required to don JAVIER hose. Pt donned socks with set up using sock aid. Grooming tasks completed standing at sink. Pt brushed teeth with modified independence. Functional [place] Measure 0=Not Assessed/NA 4=Minimal Assistance 1=Total Assistance 5=Supervision or Setup 2=Maximal Assistance 6=Modified [place] 3=Moderate Assistance 7=Complete IndependenceIRFPAI Quality Coding Scale 6 Independent with activity with or without an assistive device 5 Patient requires set up or clean up by helper. Patient completes activity by themselves 4 Supervision or touching assist (CGA). [place] provide cues , steadying assist 3 The helper provides less than half the effort to complete the activity 2 The helper provides more than half the effort to complete the activity 1 Dependent. The helper does all the effort to complete an activity 7 Patient refused to complete or attempt activity 9 The patient did not perform the activity before the current illness or injury 88 Not attempted due to Medical conditions or safety concerns Grooming (FIM): 6 Oral Hygiene (QC): 6 Bathing (FIM): 6 Shower/Bathe Self (QC): 6 Upper Body (FIM): 5 Upper Body Dressing (QC): 5 Lower Body Dressing (FIM): 5 Lower Body Dressing (QC): 5 On/Off Footwear (QC): 5 Toileting (FIM): 6 Toileting Hygiene (QC): 6 Toilet/Commode Transfer (FIM): 6 Toilet Transfer (QC): 6 Other Treatment Gait to therapy gym with FWW, slow pace. Arm bike [id number] to increase overall strength and activity tolerance needed for functional tasks. Pt completed task with minimal resistance and slow pace. Brief rest break taken during task. Graded clothespin activity completed with bilateral hands to increase flavor extractor/pinch strength. Bilateral UE AROM x10 reps with dowel jef focusing on shoulders and elbows to increase strength for ADLs and transfers. Pt returned to room, sitting in chair with needs met after session. OT Short Term Goals Short Term Goals Time Frame: May 21, 2018 Grooming(FIM): 6 Toilet/Commode Transfer(FIM): 5 Additional Short Term Goals: 1-Demonstrate ADL Tasks, 2-Verbalize Understanding , 3-ImproveStrength/Rick 1=Demonstrate adherence to instructed precautions during ADL tasks. 2=Patient will verbalize/demonstrate understanding of assistive devices/ modifications for ADL. 3=Patient will improve strength/tolerance for activity to enable patient to perform ADL's. OT Usp Goals Machine Preservative Filler Goals Time Frame: Jun 01, 2018 Eating (FIM): 7 (no dentures) Eating (QC): 6 Groomin Oral Hygiene (QC): 6 Bathing(FIM): 6 Shower/Bathe Self (QC): 6 Upper Body Dressing(FIM): 6 Upper Body Dressing (QC): 6 Lower Body Dressing(FIM): 6 Lower Body Dressing (QC): 6 On/Off Footwear (QC): 6 Toileting(FIM): 6 Toileting Hygiene (QC): 6 Toilet/Commode Transfer(FIM): 6 Toilet/Commode Transfer (QC): 6 Shower Transfer(FIM): 5 Additional Goals: 1-Demonstrate ADL Tasks, 2-Verbalize Understanding, 3- ImproveStrength/Rick 1=Demonstrate adherence to instructed precautions during ADL tasks. 2=Patient will verbalize/demonstrate understanding of assistive devices/ modifications for ADL. 3=Patient will improve strength/tolerance for activity to enable patient to perform ADL's. OT Education/Plan Problem List/Assessment Pt would benefit from skilled OT to increase her independence in basic self care to allow her to safely return home Discharge Recommendations Plan/Recommendations: Continue POC Treatment Plan/Plan of Care Patient would benefit from OT for education, treatment and training to promote independence in ADL's, mobility, safety and/or upper extremity function for ADL' s. Plan of Care: ADL Retraining, Functional Mobility, Group Exercise/Act as Ind ( education, exercise, activity tolerance, funct mobility, socialization), UE Funct Exercise/Act, UE Neuromus Re-Ed/Coord Treatment Duration: Jun 01, 2018 Frequency: At least 5 of 7 days/Wk (IRF) Estimated Hrs Per Day: 1.5 hours per day Agreement: Yes Rehab Potential: Good Time/GCodes Start Time: 08:00 Stop Time: 09:30 Total Time Billed (hr/min): 90 Billed Treatment Time 1 visit, ADLx3(45minutes), EXx3(45minutes) KAN FLEMING OT May 24, 2018 13:03
[2018-05-24] MEDS: RT-ALBUTEROL SULF 2.5 MG/3 ML PRE-MIX VIAL INH SCH ×2 (14:11→19:45)
--- NOTE | 2018-05-24 14:28 | Physical Therapy Daily Note ---
PT Daily Note-Current Subjective Patient agrees to PT. Pain Numeric Pain Scale: 5-Moderate Pain Location: Right Location Body Site: Hip Pain Description: Acute Mental Status Patient Orientation: Normal For Age Attachments: Oxygen Transfers Functional [place] Measure 0=Not Assessed/NA 4=Minimal Assistance 1=Total Assistance 5=Supervision or Setup 2=Maximal Assistance 6=Modified [place] 3=Moderate Assistance 7=Complete IndependenceIRFPAI Quality Coding Scale 6 Independent with activity with or without an assistive device 5 Patient requires set up or clean up by helper. Patient completes activity by themselves 4 Supervision or touching assist (CGA). [place] provide cues , steadying assist 3 The helper provides less than half the effort to complete the activity 2 The helper provides more than half the effort to complete the activity 1 Dependent. The helper does all the effort to complete an activity 7 Patient refused to complete or attempt activity 9 The patient did not perform the activity before the current illness or injury 88 Not attempted due to Medical conditions or safety concerns Transfers (B, C, W/C) (FIM): 6 Scootin Rollin Roll Left to Right (QC): 6 Supine to/from Sit: 6 Sit to/from Stand: 6 Sit to Lying (QC): 6 Sit to Stand (QC): 6 Chair/Iku-tu-Mzrdo Xfer(QC): 6 Bed to/from Chair: 6 Car Transfer (QC): 6 Weight Bearing Right Lower Extremity: Right Weight Bearing/Tolerated Left Lower Extremity: Left Full Weight Bearing Gait Training Does the Patient Walk?: Yes Gait (FIM): 6 Distance (FIM): 3=150 ft Distance: 150' x 2 Walk 10 feet (QC): 6 Walk 50 ft with 2 Turns(QC): 6 Walk 150 ft (QC): 6 Gait Level of Assist: 6 Gait Assistive Device: FWW reciprocal pattern. Exercises NuStep Minutes: 14 NuStep Workload: 3 Assessment Patient is currently at [facility] with gross motor skills. Plan dismissal next week. PT Short Term Goals Short Term Goals Time Frame: May 14, 2018 Wheelchair Distance: 150' PT Custodial Goals Warp Knitter Helper Goals PT Warp Knitter Helper Goals Time Frame: Jun 01, 2018 Transfers (B,C,W/C) (FIM): 6 Sit to Lying (QC): 6 Lying-Sitting on Side/Bed(QC): 6 Sit to Stand (QC): 6 Rollin Roll Left to Right (QC): 6 Chair/Eqj-xm-Wqiwi Xfer(QC): 6 Car Transfer (QC): 6 Does the Patient Walk: Yes Gait (FIM): 6 Gait distance (FIM): 3=150 ft Distance: 200' Walk 10 feet (QC): 6 Walk 10ft-Uneven Surface(QC): 6 Walk 50ft with 2 Turns (QC): 6 Walk 150 ft (QC): 6 Gait Level of Assist: 6 Gait Assistive Device: FWW Stairs (FIM): 5 # of Steps: 8 1 Step (curb) (QC): 5 4 Steps (QC): 5 12 Steps (QC): 9 Stairs Level Of Assist: 5 Picking up an Object (QC): 5 PT Plan Treatment/Plan Treatment Plan: Continue Plan of Care Treatment Plan: Bed Mobility, Education, Functional Activity Rick, Functional Strength, Group Therapy, Gait, Safety, Therapeutic Exercise, Transfers Treatment Duration: Jun 01, 2018 Frequency: At least 5 of 7 days/Wk (IRF) Estimated Hrs Per Day: 1.5 hours per day Patient and/or Family Agrees t: Yes Time/GCodes Time In: 1325 Time Out: 1355 Total Billed Treatment Time: 30 Total Billed Treatment 1 visit EX 14 min GT 16 min KATHERINE RUTHERFORD PT May 24, 2018 14:28
[2018-05-24] MEDS: DICLOFENAC 1% GEL 100 GM (VOLTAREN) TUBE TOP SCH ×3 (15:00→21:31)
[2018-05-24] MEDS: warFARin 2 MG (COUMADIN) TAB PO SCH (17:25)
[2018-05-24 18:00] VITALS: BP 101/51
[2018-05-24] MEDS: MELATONIN 3 MG TABLET PO PRN (21:30)
[2018-05-25] MEDS: HYDROcodone/APAP 5 MG/325 MG (LORTAB) TAB PO PRN ×4 (01:31→21:40)
[2018-05-25 05:45] VITALS: BP 107/50
[2018-05-25] MEDS: MULTIVIT W/MINERALS TAB (THERAGRAN M) PO SCH (06:40)
[2018-05-25] MEDS: PANTOPRAZOLE 40 MG (PROTONIX) TAB PO SCH (06:40)
[2018-05-25] MEDS: KCL 10 MEQ TAB (MICRO K) PO SCH ×2 (06:40→16:31)
[2018-05-25] MEDS: LEVOTHYROXINE 100 MCG (LEVOTHROID) TAB PO SCH (06:41)
[2018-05-25] MEDS: FUROSEMIDE 40 MG (LASIX) TAB PO SCH ×2 (06:41→16:31)
[2018-05-25 08:00] LABS: INR 1.6 (0.8-1.4); PROTHROMBIN TIME PATIENT 19.2 SEC (12.2-14.7)
[2018-05-25] MEDS: MEXILETINE 150 MG (MEXITIL) CAPSULE PO SCH ×2 (08:33→20:38)
[2018-05-25] MEDS: SACUBITRIL/VALSARTAN 24/26 MG (ENTRESTO) TABLET PO SCH ×2 (08:33→20:38)
[2018-05-25] MEDS: LORATADINE (CLARITIN) 10 MG TAB PO SCH (08:34)
[2018-05-25] MEDS: CLOPIDOGREL 75 MG (PLAVIX) TABLET PO SCH (08:34)
[2018-05-25] MEDS: ISOSORBIDE MONONITRATE 30 MG (IMDUR) TAB PO SCH (08:34)
[2018-05-25] MEDS: DIGOXIN 0.125 MG (LANOXIN) TAB PO SCH (08:35)
--- NOTE | 2018-05-25 08:59 | Physical Therapy Daily Note ---
PT Daily Note-Current Subjective Pt. agrees toRx. Feels she is much improved, ready to go home Mon Pain Numeric Pain Scale: 0-No Pain Mental Status Patient Orientation: Normal For Age Transfers Functional [place] Measure 0=Not Assessed/NA 4=Minimal Assistance 1=Total Assistance 5=Supervision or Setup 2=Maximal Assistance 6=Modified [place] 3=Moderate Assistance 7=Complete IndependenceIRFPAI Quality Coding Scale 6 Independent with activity with or without an assistive device 5 Patient requires set up or clean up by helper. Patient completes activity by themselves 4 Supervision or touching assist (CGA). [place] provide cues , steadying assist 3 The helper provides less than half the effort to complete the activity 2 The helper provides more than half the effort to complete the activity 1 Dependent. The helper does all the effort to complete an activity 7 Patient refused to complete or attempt activity 9 The patient did not perform the activity before the current illness or injury 88 Not attempted due to Medical conditions or safety concerns Transfers (B, C, W/C) (FIM): 6 Scootin Rollin Supine to/from Sit: 6 Sit to/from Stand: 6 Bed to/from Chair: 6 Weight Bearing Right Lower Extremity: Right Weight Bearing/Tolerated Left Lower Extremity: Left Full Weight Bearing Gait Training Does the Patient Walk?: Yes Gait (FIM): 6 Distance (FIM): 3=150 ft (200x2) Gait Level of Assist: 6 Gait Persons Needed: 0 Gait Assistive Device: FWW initiated SPC but instructed pt to use FWW until further instruction etc., Pt. ambulated 75 ft with SPC hurry cane with CGA slow with good sequence but looking down at feet constantly Exercises Seated Therapy Exercises: Ankle pumps, Sit to stand, Long arc quads, Hip flexion (left), Hip abd/add Seated Reps: 20 Assessment Current Status: Good Progress meeting goals, family here and supportive and were instructed in use of SPC and safety as well as HC PT to ensue after DC PT Short Term Goals Short Term Goals Time Frame: May 14, 2018 Wheelchair Distance: 150' PT Fpc Goals Learning Operations Specialist Goals PT Fpc Goals Time Frame: Jun 01, 2018 Transfers (B,C,W/C) (FIM): 6 Sit to Lying (QC): 6 Lying-Sitting on Side/Bed(QC): 6 Sit to Stand (QC): 6 Rollin Roll Left to Right (QC): 6 Chair/Iou-fl-Olrni Xfer(QC): 6 Car Transfer (QC): 6 Does the Patient Walk: Yes Gait (FIM): 6 Gait distance (FIM): 3=150 ft Distance: 200' Walk 10 feet (QC): 6 Walk 10ft-Uneven Surface(QC): 6 Walk 50ft with 2 Turns (QC): 6 Walk 150 ft (QC): 6 Gait Level of Assist: 6 Gait Assistive Device: FWW Stairs (FIM): 5 # of Steps: 8 1 Step (curb) (QC): 5 4 Steps (QC): 5 12 Steps (QC): 9 Stairs Level Of Assist: 5 Picking up an Object (QC): 5 PT Plan Treatment/Plan Treatment Plan: Continue Plan of Care Treatment Plan: Bed Mobility, Education, Functional Activity Rick, Functional Strength, Group Therapy, Gait, Safety, Therapeutic Exercise, Transfers Treatment Duration: Jun 01, 2018 Frequency: At least 5 of 7 days/Wk (IRF) Estimated Hrs Per Day: 1.5 hours per day Patient and/or Family Agrees t: Yes Safety Risks/Education Patient Education: Gait Training, Transfer Techniques, Correct Positioning, Disease Process, Safety Issues Teaching Recipient: Patient, Family Teaching Methods: Demonstration, Discussion Response to Teaching: Verbalize Understanding, Return Demonstration, Reinforcement Needed Time/GCodes Time In: 820 Time Out: 845 Total Billed Treatment Time: 25 Total Billed Treatment 1,GT25m G Codes Necessary: NISA Echevarria FOUNTAIN HELPER May 25, 2018 08:59
[2018-05-25] MEDS: RT-ALBUTEROL SULF 2.5 MG/3 ML PRE-MIX VIAL INH SCH ×2 (09:02→22:36)
[2018-05-25] MEDS: SENNOSIDES 8.6 MG (SENOKOT) TAB PO SCH ×2 (09:04→20:38)
--- NOTE | 2018-05-25 09:04 | Progress Note-Standard ---
Standard Progress Note Progress Notes/Assess & Plan Date Seen by a Provider: May 25, 2018 Time Seen by a Provider: 09:04 Progress/Assessment & Plan No complaints Vital Signs Date Time Temp Pulse Resp B/P (MAP) Pulse Ox O2 Delivery O2 Flow Rate FiO2 05/15/18 05:41 99.1 85 16 101/55 (70) 98 Nasal Cannula 7.00 05/14/18 21:00 100 Nasal Cannula 3.00 05/14/18 15:44 99.4 91 14 116/69 (85) 100 Nasal Cannula 3.00 05/14/18 15:12 Nasal Cannula 3.00 05/14/18 14:59 80 98 Nasal Cannula 3.00 05/14/18 14:52 Nasal Cannula 3.00 05/14/18 12:09 98.6 85 18 108/56 (73) 100 Nasal Cannula 3.00 I & O 05/15/18 07:00 Intake Total 940 ml Output Total 600 ml Balance 340 ml Laboratory Tests Test 05/15/18 05:50 Range/Units White Blood Count 5.4 4.3-11.0 10^3/uL Red Blood Count 2.44 L 4.35-5.85 10^6/uL Hemoglobin 7.9 L 11.5-16.0 G/DL Hematocrit 25 L 35-52 % Mean Corpuscular Volume 101 H 80-99 FL Mean Corpuscular Hemoglobin 32 25-34 PG Mean Corpuscular Hemoglobin Concent 32 32-36 G/DL Red Cell Distribution Width 15.8 H 10.0-14.5 % Platelet Count 107 L 130-400 10^3/uL Mean Platelet Volume 10.9 H 7.4-10.4 FL Prothrombin Time 27.1 H 12.2-14.7 SEC INR Comment 2.5 H 0.8-1.4 R hip dressing intact. Dry, but sanguinous DC on clothing no calf tenderness. Neg Jennifer's s/p R hip bipolar continue PT/OT Final Diagnosis no complaints no calf tenderness incision clean and dry s/p R bipolar doing well DC thien FU as out pt in three weeks ARCENIO GODOY MD May 25, 2018 09:04
[2018-05-25] MEDS: DICLOFENAC 1% GEL 100 GM (VOLTAREN) TUBE TOP SCH ×4 (09:53→20:39)
--- NOTE | 2018-05-25 14:41 | Progress Note-Cardiology ---
Cardiology SOAP Progress Note Subjective: Notes some tiredness and malaise Does not report cp or palp or syncope or shortness of breath at rest Objective: I&O/Vital Signs 05/25/18 05/25/18 05/25/18 05:45 09:00 09:11 Temp 99.2 Pulse 87 Resp 18 B/P (MAP) 107/50 (69) Pulse Ox 96 95 O2 Delivery Nasal Cannula Room Air Room Air O2 Flow Rate 2.00 05/25/18 00:00 Intake Total 800 ml Balance 800 ml Weight (Pounds): 131 Weight (Ounces): 5.0 Weight (Calculated Kilograms): 59.277443 Constitutional: AAO x 3, PERRL, well-developed, well-nourished Respiratory: chest is bilaterally symmetric, lungs clear to auscultation Cardiovascular: irregularly irregular, S1 and S2 (Mechanical S@), systolic murmur (2-3/6 MSM) Gastrointestional: No tender, No guarding, No rebound; audible bowel sounds Extremities: swelling (mild bilat leg swelling); No clubbing, No cyanosis; tenderness Neurologic/Psychiatric: alert, oriented x 3, power is 5/5 both on sides Skin: No rash on exposed areas, No ulcerations on exposed areas Results/Procedures: Labs Laboratory Tests 05/25/18 07:30: Prothrombin Time 19.2H, INR Comment 1.6H A/P: Assessment: Right hip fracture, status post surgical repair done on May 11, 2018 Post-op anemia, relatively stable Valvular heart disease: [facility] prosthetic AVR in 1998. Severe mitral regurg and stenosis for which she has not been found be a good candidate for surgery or percutaneous intervention Chronic warfarin anticoag, currently subtherapeutic Chronic systolic CHF, nonischemic cardiomyopathy, secondary to valvular heart disease. Has history of ICD implanted MEDICAL RECORDS AUDITOR-D done in August 2012, followed by Dr Parker Chronic R-sided chest pain, noncardiac, stable History of mild coronary artery disease, nonobstructive disease by cardiac catheterization in September 2014, stress test in December 2016 showing no ischemia, continue to monitor closely Peripheral vascular disease, patient has venous insufficiency on the right side that required ablation. Peripheral angiogram May 2017, intervention to the anterior tibial artery, the wound has healed then developed a new ulcer after a trauma. Dr Parker did balloon angioplasty to the right anterior tibial artery (proximal portion has significant improvement the distal portion is occluded and did not improve, the posterior tibial artery and peroneal arteries were occluded with no collaterals in that area). The right SFA has multiple segment of moderate to severe stenosis, Dr Parker balloon angioplasty to the mid SFA with good results. Abdominal aorta has moderate disease, the left SFA has mild to moderate disease down to the trifurcation Carotid stenosis, continue to monitor, followed by heart and vascular care. 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 followed and monitored by heart and vascular care. Hypertension Hyperlipidemia Plan: * I reviewed her records, interviewed her and examined her * INR is subtherapeutic. This is of concern because of her mech AVR. We recommend increasing warfarin, temporary use of enoxaparin, and monitoring of the INR * Also monitor anemia * I had a detailed discussion with her regarding her CV issues and our treatment plan outline above KIKE VILLAGRAN MD FACP FAC CCD May 25, 2018 14:41
[2018-05-25] MEDS ORDERED: ENOXAPARIN 60 MG/0.6 ML (LOVENOX) SYR SC NR (14:45)
[2018-05-25] MEDS ORDERED: warFARin 3 MG (COUMADIN) TAB PO NR (15:00)
[2018-05-25 17:38] VITALS: BP 108/58
[2018-05-25] MEDS ORDERED: warFARin 2 MG (COUMADIN) TAB PO NR (18:00)
[2018-05-25] MEDS: MELATONIN 3 MG TABLET PO PRN (21:40)
[2018-05-25] MEDS: rOPINIRole 0.25 MG (REQUIP) TAB PO PRN (21:40)
[2018-05-26 05:57] LABS: BASOPHILS # (AUTO) 0.1 10^3/uL (0.0-0.1); BASOPHILS % (AUTO) 1 % (0-10); EOSINOPHILS # (AUTO) 0.3 10^3/uL (0.0-0.3); EOSINOPHILS % (AUTO) 7 % (0-10); HEMATOCRIT 28 % (35-52); HEMOGLOBIN 8.7 G/DL (11.5-16.0); LYMPHOCYTES % (AUTO) 19 % (12-44); MEAN CORPUSCULAR HEMOGLOBIN 32 PG (25-34); MEAN CORPUSCULAR HGB CONC 31 G/DL (32-36); MEAN CORPUSCULAR VOLUME 104 FL (80-99); MEAN PLATELET VOLUME 9.6 FL (7.4-10.4); MONOCYTES # (AUTO) 0.5 X 10^3 (0.0-1.0); MONOCYTES % (AUTO) 11 % (0-12); NEUTROPHILS # (AUTO) 3.2 X 10^3 (1.8-7.8); NEUTROPHILS % (AUTO) 62 % (42-75); PLATELET COUNT 323 10^3/uL (130-400); RED BLOOD COUNT 2.71 10^6/uL (4.35-5.85); RED CELL DISTRIBUTION WIDTH 15.6 % (10.0-14.5); WHITE BLOOD COUNT 5.1 10^3/uL (4.3-11.0)
[2018-05-26 06:09] LABS: INR 1.7 (0.8-1.4); PROTHROMBIN TIME PATIENT 20.2 SEC (12.2-14.7)
[2018-05-26 06:14] LABS: CALCIUM 9.2 MG/DL (8.5-10.1); CREATININE SERUM 1.36 MG/DL (0.60-1.30); POTASSIUM 3.9 MMOL/L (3.6-5.0)
[2018-05-26] MEDS: MULTIVIT W/MINERALS TAB (THERAGRAN M) PO SCH (06:20)
[2018-05-26] MEDS: FUROSEMIDE 40 MG (LASIX) TAB PO SCH ×2 (06:20→17:08)
[2018-05-26] MEDS: PANTOPRAZOLE 40 MG (PROTONIX) TAB PO SCH (06:20)
[2018-05-26] MEDS: KCL 10 MEQ TAB (MICRO K) PO SCH ×2 (06:21→17:08)
[2018-05-26] MEDS: LEVOTHYROXINE 100 MCG (LEVOTHROID) TAB PO SCH (06:21)
[2018-05-26 06:22] VITALS: BP 114/62
[2018-05-26] MEDS: HYDROcodone/APAP 5 MG/325 MG (LORTAB) TAB PO PRN ×3 (06:25→21:16)
[2018-05-26] MEDS: RT-ALBUTEROL SULF 2.5 MG/3 ML PRE-MIX VIAL INH SCH ×2 (09:02→21:29)
[2018-05-26] MEDS: DIGOXIN 0.125 MG (LANOXIN) TAB PO SCH (09:04)
[2018-05-26] MEDS: SACUBITRIL/VALSARTAN 24/26 MG (ENTRESTO) TABLET PO SCH ×2 (09:04→20:14)
[2018-05-26] MEDS: CLOPIDOGREL 75 MG (PLAVIX) TABLET PO SCH (09:04)
[2018-05-26] MEDS: LORATADINE (CLARITIN) 10 MG TAB PO SCH (09:04)
[2018-05-26] MEDS: MEXILETINE 150 MG (MEXITIL) CAPSULE PO SCH ×2 (09:04→20:14)
[2018-05-26] MEDS: SENNOSIDES 8.6 MG (SENOKOT) TAB PO SCH ×2 (09:04→20:14)
[2018-05-26] MEDS: ISOSORBIDE MONONITRATE 30 MG (IMDUR) TAB PO SCH (09:05)
[2018-05-26] MEDS: DICLOFENAC 1% GEL 100 GM (VOLTAREN) TUBE TOP SCH ×4 (09:07→20:16)
[2018-05-26] MEDS: rOPINIRole 0.25 MG (REQUIP) TAB PO PRN ×2 (10:53→21:16)
[2018-05-26] MEDS ORDERED: warFARin 2 MG (COUMADIN) TAB PO ONE (14:30)
[2018-05-26] MEDS ORDERED: ENOXAPARIN 60 MG/0.6 ML (LOVENOX) SYR SC NR (14:30)
[2018-05-26] MEDS ORDERED: warFARin 2 MG (COUMADIN) TAB PO NR (14:30)
--- NOTE | 2018-05-26 15:06 | Progress Note-Cardiology ---
Cardiology SOAP Progress Note Subjective: Gen malaise No cp No shortness of breath at rest No pal Objective: I&O/Vital Signs 05/26/18 05/26/18 06:22 09:00 Temp 98.8 Pulse 83 Resp 18 B/P (MAP) 114/62 (79) Pulse Ox 95 O2 Delivery Room Air Room Air 05/26/18 00:00 Intake Total 700 ml Balance 700 ml Weight (Pounds): 131 Weight (Ounces): 5.0 Weight (Calculated Kilograms): 59.217009 Constitutional: AAO x 3, PERRL, well-developed, well-nourished Respiratory: chest is bilaterally symmetric, lungs clear to auscultation Cardiovascular: irregularly irregular, S1 and S2 (Mechanical S@), systolic murmur (2-3/6 MSM) Gastrointestional: No tender, No guarding, No rebound; audible bowel sounds Extremities: swelling (mild bilat leg swelling); No clubbing, No cyanosis; tenderness Neurologic/Psychiatric: alert, oriented x 3, power is 5/5 both on sides Skin: No rash on exposed areas, No ulcerations on exposed areas Results/Procedures: Labs Laboratory Tests 05/26/18 05:46: White Blood Count 5.1, Red Blood Count 2.71L, Hemoglobin 8.7L, Hematocrit 28L, Mean Corpuscular Volume 104H, Mean Corpuscular Hemoglobin 32, Mean Corpuscular Hemoglobin Concent 31L, Red Cell Distribution Width 15.6H, Platelet Count 323, Mean Platelet Volume 9.6, Neutrophils (%) (Auto) 62, Lymphocytes (%) (Auto) 19, Monocytes (%) (Auto) 11, Eosinophils (%) (Auto) 7, Basophils (%) (Auto) 1, Neutrophils # (Auto) 3.2, Lymphocytes # (Auto) 1.0, Monocytes # (Auto) 0.5, Eosinophils # (Auto) 0.3, Basophils # (Auto) 0.1, Prothrombin Time 20.2H, INR Comment 1.7H, Sodium Level 139, Potassium Level 3.9, Chloride Level 101, Carbon Dioxide Level 29, Anion Gap 9, Blood Urea Nitrogen 30H, Creatinine 1.36H, Estimat Glomerular Filtration Rate 37, BUN/Creatinine Ratio 22, Glucose Level 87 , Calcium Level 9.2, Magnesium Level 2.0 Laboratory Tests 05/26/18 05:46 A/P: Assessment: Right hip fracture, status post surgical repair done on May 11, 2018 Post-op anemia, relatively stable Valvular heart disease: [facility] prosthetic AVR in 1998. Severe mitral regurg and stenosis for which she has not been found be a good candidate for surgery or percutaneous intervention Chronic warfarin anticoag, currently subtherapeutic Chronic systolic CHF, nonischemic cardiomyopathy, secondary to valvular heart disease. Has history of ICD implanted ELECTRONIC TECHNOLOGIST-D done in August 2012, followed by Dr Parker Chronic R-sided chest pain, noncardiac, stable History of mild coronary artery disease, nonobstructive disease by cardiac catheterization in September 2014, stress test in December 2016 showing no ischemia, continue to monitor closely Peripheral vascular disease, patient has venous insufficiency on the right side that required ablation. Peripheral angiogram May 2017, intervention to the anterior tibial artery, the wound has healed then developed a new ulcer after a trauma. Dr Parker did balloon angioplasty to the right anterior tibial artery (proximal portion has significant improvement the distal portion is occluded and did not improve, the posterior tibial artery and peroneal arteries were occluded with no collaterals in that area). The right SFA has multiple segment of moderate to severe stenosis, Dr Parker balloon angioplasty to the mid SFA with good results. Abdominal aorta has moderate disease, the left SFA has mild to moderate disease down to the trifurcation Carotid stenosis, continue to monitor, followed by [facility]. Abdominal aortic aneurysm, monitor by [facility], peripheral vascular disease monitored by [facility], echocardiogram showed prominent aortic root measuring 4.6 cm. followed and monitored by [facility]. Hypertension Hyperlipidemia Plan: * INR remains subtherapeutic. This is of concern because of her [facility] AVR. We recommend increasing warfarin, temporary use of enoxaparin, and monitoring of the INR * Also monitor anemia * I have explained to her her CV issues and our treatment plan KIKE VILLAGRAN MD [facility] May 26, 2018 15:06
[2018-05-26 18:00] VITALS: BP 100/45
[2018-05-26] MEDS ORDERED: warFARin 2 MG (COUMADIN) TAB PO SCH (18:00)
--- NOTE | 2018-05-26 18:27 | PM & R (SOAP) Progress Note ---
Subjective This was a face to face visit with the patient. Date Seen by Provider: May 26, 2018 Time Seen by Provider: 17:50 Subjective/Events-last exam Patient was seen in her room with her family Discussed case with RN Lucas Chavez note and orders INR Subtherapeutic with mechanical valve in place Cardiology has ordered Lovenox until INR therapeutic Discharge is tentatively set for tomorrow if OK with Cardiology Date Identified: May 26, 2018 Time Identified: 18:00 Medication Intervention: Lovenoc subcut and coumadin dose adjusted for subtherapeutic INR in Patient with mechanical heart valve Objective Physician Exam Last Set of Vital Signs Vital Signs Date Time Temp Pulse Resp B/P (MAP) Pulse Ox O2 Delivery O2 Flow Rate FiO2 05/26/18 15:24 Room Air 05/26/18 06:22 98.8 83 18 114/62 (79) 95 05/25/18 20:30 2.00 Capillary Refill : Less Than 3 Seconds I&O Intake and Output 05/26/18 00:00 Intake Total 1150 ml Balance 1150 ml Intake Oral 1150 ml # Voids 6 # Bowel Movements 1 General: Alert, Oriented X3, Cooperative, No Acute Distress HEENT: Atraumatic, PERRLA, EOMI, Mucous Memb Moist/[place], Other (02 by N/C in place) Neck: Supple, No JVD Lungs: Clear to Auscultation Heart: Regular Rate, Normal S1, Normal S2, Other (Systolic murmur at left sternal border) Abdomen: Normal Bowel Sounds, Soft, No Tenderness Extremities: No Clubbing, Other (trace edema rt ankle) Neuro: Normal Speech, Sensation Intact, Other (Strength LLE 3+/5 RLE 3-/5 Upper limb strength 4/5) Psych/Mental Status: Mental Status NL Results Lab Data Laboratory Tests 05/24/18 05:10: Prothrombin Time 22.1H, INR Comment 1.9H 05/25/18 07:30: Prothrombin Time 19.2H, INR Comment 1.6H 05/26/18 05:46: Prothrombin Time 20.2H, INR Comment 1.7H, White Blood Count 5.1, Red Blood Count 2.71L, Hemoglobin 8.7L, Hematocrit 28L, Mean Corpuscular Volume 104H, Mean Corpuscular Hemoglobin 32, Mean Corpuscular Hemoglobin Concent 31L, Red Cell Distribution Width 15.6H, Platelet Count 323, Mean Platelet Volume 9.6, Neutrophils (%) (Auto) 62, Lymphocytes (%) (Auto) 19, Monocytes (%) (Auto) 11, Eosinophils (%) (Auto) 7, Basophils (%) (Auto) 1, Neutrophils # (Auto) 3.2, Lymphocytes # (Auto) 1.0, Monocytes # (Auto) 0.5, Eosinophils # (Auto) 0.3, Basophils # (Auto) 0.1, Sodium Level 139, Potassium Level 3.9, Chloride Level 101, Carbon Dioxide Level 29, Anion Gap 9, Blood Urea Nitrogen 30H, Creatinine 1.36H, Estimat Glomerular Filtration Rate 37, BUN/Creatinine Ratio 22, Glucose Level 87, Calcium Level 9.2, Magnesium Level 2.0 Assessment/Plan Assessment and Plan Rt femoral neck fracture s/p RT hip replacement DR Ortiz WBAT Chf/atelectasis treated Postop anemia Subtherapeutic INR Appreciate DR Chavez note Lovenox added to improve INR Severe MV stenosis AVR with chronic anticoagulation Mild CAD Nonischemic cardiomyopathy S/P ICD PVD AAA Resp insuff on HTN Plan Discharge remains tentatively set for tomorrow 05-27-18 if OK with Cardiology Check INR in AM Lovenox added to med regimen Co-Morbidities that are continuing to impact the rehab process: (include details ) MARYBEL ROSARIO MD May 26, 2018 18:27
[2018-05-26] MEDS: MELATONIN 3 MG TABLET PO PRN (21:16)
[2018-05-27] MEDS: HYDROcodone/APAP 5 MG/325 MG (LORTAB) TAB PO PRN ×2 (01:56→07:52)
[2018-05-27 05:00] VITALS: BP 107/64
[2018-05-27 05:44] LABS: BASOPHILS # (AUTO) 0.1 10^3/uL (0.0-0.1); BASOPHILS % (AUTO) 2 % (0-10); EOSINOPHILS # (AUTO) 0.3 10^3/uL (0.0-0.3); EOSINOPHILS % (AUTO) 7 % (0-10); HEMATOCRIT 27 % (35-52); HEMOGLOBIN 8.7 G/DL (11.5-16.0); LYMPHOCYTES # (AUTO) 0.9 X 10^3 (1.0-4.0); LYMPHOCYTES % (AUTO) 20 % (12-44); MEAN CORPUSCULAR HEMOGLOBIN 33 PG (25-34); MEAN CORPUSCULAR HGB CONC 32 G/DL (32-36); MEAN CORPUSCULAR VOLUME 103 FL (80-99); MEAN PLATELET VOLUME 9.3 FL (7.4-10.4); MONOCYTES # (AUTO) 0.5 X 10^3 (0.0-1.0); MONOCYTES % (AUTO) 13 % (0-12); NEUTROPHILS # (AUTO) 2.5 X 10^3 (1.8-7.8); NEUTROPHILS % (AUTO) 59 % (42-75); PLATELET COUNT 298 10^3/uL (130-400); RED BLOOD COUNT 2.63 10^6/uL (4.35-5.85); RED CELL DISTRIBUTION WIDTH 15.1 % (10.0-14.5); WHITE BLOOD COUNT 4.2 10^3/uL (4.3-11.0)
[2018-05-27 06:04] LABS: INR 1.9 (0.8-1.4); PROTHROMBIN TIME PATIENT 21.7 SEC (12.2-14.7)
[2018-05-27 06:07] LABS: CALCIUM 9.2 MG/DL (8.5-10.1); CREATININE SERUM 1.21 MG/DL (0.60-1.30)
[2018-05-27] MEDS: FUROSEMIDE 40 MG (LASIX) TAB PO SCH (06:24)
[2018-05-27] MEDS: PANTOPRAZOLE 40 MG (PROTONIX) TAB PO SCH (06:24)
[2018-05-27] MEDS: METOLAZONE 2.5 MG (ZAROXOLYN) TAB PO SCH (06:24)
[2018-05-27] MEDS: MULTIVIT W/MINERALS TAB (THERAGRAN M) PO SCH (06:24)
[2018-05-27] MEDS: KCL 10 MEQ TAB (MICRO K) PO SCH (06:24)
[2018-05-27] MEDS: LEVOTHYROXINE 100 MCG (LEVOTHROID) TAB PO SCH (06:24)
[2018-05-27] MEDS: RT-ALBUTEROL SULF 2.5 MG/3 ML PRE-MIX VIAL INH SCH (07:14)
[2018-05-27] MEDS: DIGOXIN 0.125 MG (LANOXIN) TAB PO SCH (07:51)
[2018-05-27] MEDS: MEXILETINE 150 MG (MEXITIL) CAPSULE PO SCH (07:51)
[2018-05-27] MEDS: LORATADINE (CLARITIN) 10 MG TAB PO SCH (07:51)
[2018-05-27] MEDS: ISOSORBIDE MONONITRATE 30 MG (IMDUR) TAB PO SCH (07:51)
[2018-05-27] MEDS: CLOPIDOGREL 75 MG (PLAVIX) TABLET PO SCH (07:51)
[2018-05-27] MEDS: SACUBITRIL/VALSARTAN 24/26 MG (ENTRESTO) TABLET PO SCH (07:52)
[2018-05-27] MEDS: DICLOFENAC 1% GEL 100 GM (VOLTAREN) TUBE TOP SCH (07:53)
--- NOTE | 2018-05-27 08:29 | Cardiology Progress Note ---
Subjective Date Seen by Provider: May 27, 2018 Time Seen by Provider: 08:27 Subjective/Events-last exam Patient in room, denies any increased CP or dyspnea. No new complaints at this time. Review of Systems General: No Night Sweats, No Fatigue, No Malaise HEENT: No Visual Changes, No Dysphasia, No Sore Throat Pulmonary: Dyspnea; No Cough, No Pleuritic Chest Pain Cardiovascular: No: Chest Pain, Palpitations, Orthopnea, Paroxysmal Noc. Dyspnea, Edema Gastrointestinal: No: Nausea, Vomiting, Constipation Genitourinary: No Dysuria, No Frequency Musculoskeletal: No: neck pain, back pain Neurological: Weakness; No: Numbness, Change in speech, Confusion Objective-Cardiology Exam Last Set of Vital Signs Vital Signs 05/27/18 05/27/18 05:00 07:16 Temp 98.2 Pulse 88 Resp 18 B/P (MAP) 107/64 (78) Pulse Ox 98 O2 Delivery Nasal Cannula O2 Flow Rate 2.00 Capillary Refill : Less Than 3 Seconds I&O Intake and Output 05/27/18 00:00 Intake Total 1280 ml Balance 1280 ml Intake Oral 1280 ml # Voids 6 # Bowel Movements 1 General: Alert, Oriented X3, Cooperative, No Acute Distress HEENT: Atraumatic, PERRLA, EOMI, Mucous Memb Moist/[place] Neck: Supple, No JVD Lungs: Clear to Auscultation Heart: Regular Rate, Normal S1, Normal S2, Other (Systolic murmur at left sternal border) Abdomen: Normal Bowel Sounds, Soft, No Tenderness Extremities: No Clubbing, Other (trace edema rt ankle) Neuro: Normal Speech, Sensation Intact, Other (Strength LLE 3+/5 RLE 3-/5 Upper limb strength 4/5) Psych/Mental Status: Mental Status NL Results Lab Laboratory Tests 05/27/18 05:35 A/P-Cardiology Admission Diagnosis Hip fracture Coronary artery disease Aortic valve stenosis Mitral regurgitation Assessment/Plan Right hip fracture, status post surgical repair done on May 11, 2018, recovering slowly, doing well. Continue to monitor Chest pain nonspecific etiology, right-sided, musculoskeletal in nature, better at this time. Continue to monitor Anemia, continue to monitor H/H Questionable pneumonia vs atelectasis on CXR, followed and managed by primary care physician History of mild coronary artery disease, nonobstructive disease by cardiac catheterization in September 2014, stress test in December 2016 showing no ischemia, continue to monitor closely Congestive heart failure, chronic left ventricular systolic dysfunction, nonischemic cardiomyopathy, secondary to valvular heart disease. Has history of ICD implanted ART EDITOR-D done in August 2012. Severe mitral valve stenosis, rheumatic valve, history of severe mitral regurgitation and pulmonary hypertension with estimated PA pressure of 55 mmHg, severely dilated left atrium. She was seen Dr. Page at in the past and she was considered high risk for valve surgery. She is not a candidate for mitral clip surgery due to her severe mitral stenosis, patient was referred for TMVR with Dr. Davila at , she decided to continue with conservative management and will consider the procedure if she become more symptomatic. 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 Last echocardiogram was done in April 2018 and the valve was functioning normally Peripheral vascular disease, patient has venous insufficiency on the right side that required ablation,peripheral angiogram May 2017, intervention to the anterior tibial artery, the wound has healed then developed a new ulcer after a trauma. Did balloon angioplasty to the right anterior tibial artery proximal portion has significant improvement the distal portion is occluded and did not improve, the posterior tibial artery and peroneal arteries were occluded with no collaterals in that area. The right SFA has multiple segment of moderate to severe stenosis, balloon angioplasty to the mid SFA with good results. Abdominal aorta has moderate disease, the left SFA has mild to moderate disease down to the trifurcation. We'll continue with medical therapy, the ulcer on her foot is completely healed. Continue to monitor Carotid stenosis, continue to monitor, followed by heart and vascular care. 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 followed and monitored by heart and vascular care. Hypertension, controlled. Continue to monitor blood pressure/heart rate. Hyperlipidemia, continue on current medication monitor lipids Clinical Quality Measures DVT/VTE Risk/Contraindication: Risk Factor Score Per Nursin RFS Level Per Nursing on Admit: 4+=Very High THANH LAWTON May 27, 2018 08:29
--- NOTE | 2018-05-27 09:06 | Occupational Ther Daily Note ---
OT Current Status-Daily Note Subjective Pt alert, sitting in bed. No c/o pain. Pt agrees to therapy. Mental Status/Objective Patient Orientation: Person, Place, Time, Situation Functional [place] Measure 0=Not Assessed/NA 4=Minimal Assistance 1=Total Assistance 5=Supervision or Setup 2=Maximal Assistance 6=Modified [place] 3=Moderate Assistance 7=Complete [place] ADL-Treatment Functional [place] Measure 0=Not Assessed/NA 4=Minimal Assistance 1=Total Assistance 5=Supervision or Setup 2=Maximal Assistance 6=Modified [place] 3=Moderate Assistance 7=Complete IndependenceIRFPAI Quality Coding Scale 6 Independent with activity with or without an assistive device 5 Patient requires set up or clean up by helper. Patient completes activity by themselves 4 Supervision or touching assist (CGA). [place] provide cues , steadying assist 3 The helper provides less than half the effort to complete the activity 2 The helper provides more than half the effort to complete the activity 1 Dependent. The helper does all the effort to complete an activity 7 Patient refused to complete or attempt activity 9 The patient did not perform the activity before the current illness or injury 88 Not attempted due to Medical conditions or safety concerns Eating (FIM): 7 (Per nrsg and earlier therapy sessions. Pt independent with eating. ) Eating (QC): 6 Grooming (FIM): 6 (Mod I, pt completes in sitting in front of sink. ) Oral Hygiene (QC): 6 Bathing (FIM): 6 (Pt completes using shower chair, hand held shower and long handled sponge. ) Bathing Location: L Arm, R Arm, L Upper Leg, R Upper Leg, L Lower Leg ( including foot), R Lower Leg (including foot), Chest, Abdomen, Buttocks, Perineal Area Shower/Bathe Self (QC): 6 Upper Body (FIM): 6 (Using FWW for stability, pt able to retrieve clothing. Pt dons/doffs UE dressing in sitting position. ) Upper Body Dressing (QC): 6 Lower Body Dressing (FIM): 5 (Using FWW for stability, pt able to retrieve clothing. Pt able to don/doff LE dressing using AE to reach LE as to adhere to hip precautions. Assist in donning eric hoses. Pt able to don/doff socks and shoes using AE. ) Lower Body Dressing (QC): 6 On/Off Footwear (QC): 6 Toileting (FIM): 6 (Pt able to complete using FWW and grabbars for stability. ) Toileting Hygiene (QC): 6 Transfers (B, C, W/C) (FIM): 6 (Pt completes using FWW for stability. ) Toilet/Commode Transfer (FIM): 6 (Pt completes using FWW and grabbars for stability. ) Toilet Transfer (QC): 6 Tub Transfer(FIM): 6 (Pt able to complete using FWW, grabbars and tub transfer bench for stability. ) Shower Transfer(FIM): 6 (Pt completes using grabbars, shower chair, and FWW for stability. ) OT Short Term Goals Short Term Goals Time Frame: May 21, 2018 Grooming(FIM): 6 Toilet/Commode Transfer(FIM): 5 Additional Short Term Goals: 1-Demonstrate ADL Tasks, 2-Verbalize Understanding , 3-ImproveStrength/Rick 1=Demonstrate adherence to instructed precautions during ADL tasks. 2=Patient will verbalize/demonstrate understanding of assistive devices/ modifications for ADL. 3=Patient will improve strength/tolerance for activity to enable patient to perform ADL's. OT Fire Alarm Operator Goals Prison Goals Time Frame: Jun 01, 2018 Eating (FIM): 7 (no dentures) Eating (QC): 6 (met) Groomin (met) Oral Hygiene (QC): 6 (met) Bathing(FIM): 6 (met) Bathing Location: L Arm, R Arm, L Upper Leg, R Upper Leg, L Lower Leg ( including foot), R Lower Leg (including foot), Chest, Abdomen, Buttocks, Perineal Area Shower/Bathe Self (QC): 6 (met) Upper Body Dressing(FIM): 6 (met) Upper Body Dressing (QC): 6 (met) Lower Body Dressing(FIM): 6 (not met) Lower Body Dressing (QC): 6 (not met) On/Off Footwear (QC): 6 (met) Toileting(FIM): 6 (met) Toileting Hygiene (QC): 6 (met) Toilet/Commode Transfer(FIM): 6 (met) Toilet/Commode Transfer (QC): 6 (met) Shower Transfer(FIM): 5 (met) Additional Goals: 1-Demonstrate ADL Tasks, 2-Verbalize Understanding, 3- ImproveStrength/Rick 1=Demonstrate adherence to instructed precautions during ADL tasks. 2=Patient will verbalize/demonstrate understanding of assistive devices/ modifications for ADL. 3=Patient will improve strength/tolerance for activity to enable patient to perform ADL's. OT Education/Plan Problem List/Assessment Pt would benefit from skilled OT to increase her independence in basic self care to allow her to safely return home Discharge Recommendations Plan/Recommendations: Continue POC Treatment Plan/Plan of Care Patient would benefit from OT for education, treatment and training to promote independence in ADL's, mobility, safety and/or upper extremity function for ADL' s. Plan of Care: ADL Retraining, Functional Mobility, Group Exercise/Act as Ind ( education, exercise, activity tolerance, funct mobility, socialization), UE Funct Exercise/Act, UE Neuromus Re-Ed/Coord Treatment Duration: Jun 01, 2018 Frequency: At least 5 of 7 days/Wk (IRF) Estimated Hrs Per Day: 1.5 hours per day Agreement: Yes Rehab Potential: Good Time/GCodes Start Time: 08:20 Stop Time: 09:00 Total Time Billed (hr/min): 40 Billed Treatment Time 1 visit- ADL 3 (40 min) HARDIK NUNEZ May 27, 2018 09:06
[2018-05-27] MEDS: SENNOSIDES 8.6 MG (SENOKOT) TAB PO SCH (09:31)
--- NOTE | 2018-05-27 11:33 | Physical Therapy Daily Note ---
PT Daily Note-Current Subjective Pt. anxious to go home. Feels she has made significant progress. Pain Numeric Pain Scale: 1 Location: Right Location Body Site: Thigh Pain Description: Ache Mental Status Patient Orientation: Normal For Age Transfers Functional [place] Measure 0=Not Assessed/NA 4=Minimal Assistance 1=Total Assistance 5=Supervision or Setup 2=Maximal Assistance 6=Modified [place] 3=Moderate Assistance 7=Complete IndependenceIRFPAI Quality Coding Scale 6 Independent with activity with or without an assistive device 5 Patient requires set up or clean up by helper. Patient completes activity by themselves 4 Supervision or touching assist (CGA). [place] provide cues , steadying assist 3 The helper provides less than half the effort to complete the activity 2 The helper provides more than half the effort to complete the activity 1 Dependent. The helper does all the effort to complete an activity 7 Patient refused to complete or attempt activity 9 The patient did not perform the activity before the current illness or injury 88 Not attempted due to Medical conditions or safety concerns Transfers (B, C, W/C) (FIM): 6 Scootin Rollin Roll Left to Right (QC): 5 Supine to/from Sit: 6 Sit to/from Stand: 6 Sit to Lying (QC): 5 Sit to Stand (QC): 5 Chair/Yxw-ia-Mwnsl Xfer(QC): 5 Bed to/from Chair: 6 Car Transfer (QC): 6 Weight Bearing Right Lower Extremity: Right Weight Bearing/Tolerated Left Lower Extremity: Left Full Weight Bearing Gait Training Does the Patient Walk?: Yes Gait (FIM): 6 Distance (FIM): 3=150 ft (200x2) Walk 10 feet (QC): 5 Walk 50 ft with 2 Turns(QC): 5 Walk 150 ft (QC): 5 Walking 10ft/uneven surface-QC: 5 Gait Level of Assist: 6 Gait Persons Needed: 0 Gait Assistive Device: FWW up ad mamie Stair Training Stair Training: Handrails/: 2 handrails Stairs (FIM): 6 #of Steps: 12 1 Step (curb) (QC): 5 4 Steps (QC): 5 12 Steps (QC): 5 Stairs: Pattern: Step to Level of Assist: 6 Balance Special Test Comments unsafe to trial bending etc, Exercises Supine Ex: Straight leg raise, Hip abd/add Supine Reps: 10 Assessment Current Status: Excellent Progress meets all goals, up ad mamie status PT Short Term Goals Short Term Goals Time Frame: May 14, 2018 Wheelchair Distance: 150' PT Customer Sales Distributor Goals Senior Living Goals PT Customer Sales Distributor Goals Time Frame: Jun 01, 2018 Transfers (B,C,W/C) (FIM): 6 Sit to Lying (QC): 6 Lying-Sitting on Side/Bed(QC): 6 Sit to Stand (QC): 6 Rollin Roll Left to Right (QC): 6 Chair/Rfw-fn-Cwdkl Xfer(QC): 6 Car Transfer (QC): 6 Does the Patient Walk: Yes Gait (FIM): 6 Gait distance (FIM): 3=150 ft Distance: 200' Walk 10 feet (QC): 6 Walk 10ft-Uneven Surface(QC): 6 Walk 50ft with 2 Turns (QC): 6 Walk 150 ft (QC): 6 Gait Level of Assist: 6 Gait Assistive Device: FWW Stairs (FIM): 5 # of Steps: 8 1 Step (curb) (QC): 5 4 Steps (QC): 5 12 Steps (QC): 9 Stairs Level Of Assist: 5 Picking up an Object (QC): 5 PT Plan Treatment/Plan Treatment Plan: Discontinue PT, goals met Treatment Plan: Bed Mobility, Education, Functional Activity Rick, Functional Strength, Group Therapy, Gait, Safety, Therapeutic Exercise, Transfers Treatment Duration: Jun 01, 2018 Frequency: At least 5 of 7 days/Wk (IRF) Estimated Hrs Per Day: 1.5 hours per day Patient and/or Family Agrees t: Yes Safety Risks/Education Patient Education: Gait Training, Transfer Techniques, Steps, Correct Positioning, Disease Process, Safety Issues Teaching Recipient: Patient Teaching Methods: Demonstration, Discussion Response to Teaching: Verbalize Understanding, Return Demonstration, Reinforcement Needed Time/GCodes Time In: 1110 Time Out: 1130 Total Billed Treatment Time: 30 Total Billed Treatment 1,FA20m G Codes Necessary: NISA Echevarria MOBILE LOUNGE DRIVER OR OPERATOR May 27, 2018 11:33
--- NOTE | 2018-05-27 11:40 | Cardiology Progress Note ---
Subjective Date Seen by Provider: May 27, 2018 Time Seen by Provider: 11:39 Subjective/Events-last exam Patient was seen and evaluated, sitting in a chair, ready to go home. All her questions regarding medications and plans from cardiology standpoint were discussed. Review of Systems General: No Chills, No Night Sweats; Fatigue; No Malaise, No Appetite, No Other HEENT: No Head Aches, No Visual Changes, No Eye Pain, No Ear Pain, No Dysphasia , No Sinus Congestion, No Post Nasal Drip, No Sore Throat, No Other Pulmonary: No Dyspnea, No Cough, No Pleuritic Chest Pain, No Other Cardiovascular: No: Chest Pain, Palpitations, Orthopnea, Paroxysmal Noc. Dyspnea, Edema, Lt Headedness, Other Objective-Cardiology Exam Last Set of Vital Signs Vital Signs 05/27/18 05/27/18 05/27/18 05:00 07:16 09:00 Temp 98.2 Pulse 88 Resp 18 B/P (MAP) 107/64 (78) Pulse Ox 98 O2 Delivery Room Air O2 Flow Rate 2.00 Capillary Refill : Less Than 3 Seconds I&O Intake and Output 05/27/18 00:00 Intake Total 1280 ml Balance 1280 ml Intake Oral 1280 ml # Voids 6 # Bowel Movements 1 General: Alert, Oriented X3, Cooperative, No Acute Distress HEENT: Atraumatic, PERRLA, EOMI, Mucous Memb Moist/[place] Neck: Supple, No JVD Lungs: Clear to Auscultation Heart: Regular Rate, Normal S1, Normal S2, Other (Systolic murmur at left sternal border) Abdomen: Normal Bowel Sounds, Soft, No Tenderness Extremities: No Clubbing, Other (trace edema rt ankle) Neuro: Normal Speech, Sensation Intact, Other (Strength LLE 3+/5 RLE 3-/5 Upper limb strength 4/5) Psych/Mental Status: Mental Status NL Results Lab Laboratory Tests 05/27/18 05:35 A/P-Cardiology Admission Diagnosis Hip fracture Coronary artery disease Aortic valve stenosis Mitral regurgitation Assessment/Plan Right hip fracture, status post surgical repair done on May 11, 2018, recovering slowly, doing well. Planning to go home today. Chest pain nonspecific etiology, right-sided, musculoskeletal in nature, better at this time. Continue to monitor Anemia, continue to monitor H/H History of mild coronary artery disease, nonobstructive disease by cardiac catheterization in September 2014, stress test in December 2016 showing no ischemia, continue to monitor closely Congestive heart failure, chronic left ventricular systolic dysfunction, nonischemic cardiomyopathy, secondary to valvular heart disease. Has history of ICD implanted LIBRARY CIRCULATION DEPARTMENT CHIEF-D done in August 2012. Severe mitral valve stenosis, rheumatic valve, history of severe mitral regurgitation and pulmonary hypertension with estimated PA pressure of 55 mmHg, severely dilated left atrium. She was seen Dr. Page at in the past and she was considered high risk for valve surgery. She is not a candidate for mitral clip surgery due to her severe mitral stenosis, patient was referred for TMVR with Dr. Davila at , she decided to continue with conservative management and will consider the procedure if she become more symptomatic. 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 Last echocardiogram was done in April 2018 and the valve was functioning normally Peripheral vascular disease, patient has venous insufficiency on the right side that required ablation,peripheral angiogram May 2017, intervention to the anterior tibial artery, the wound has healed then developed a new ulcer after a trauma. Did balloon angioplasty to the right anterior tibial artery proximal portion has significant improvement the distal portion is occluded and did not improve, the posterior tibial artery and peroneal arteries were occluded with no collaterals in that area. The right SFA has multiple segment of moderate to severe stenosis, balloon angioplasty to the mid SFA with good results. Abdominal aorta has moderate disease, the left SFA has mild to moderate disease down to the trifurcation. We'll continue with medical therapy, the ulcer on her foot is completely healed. Continue to monitor Carotid stenosis, continue to monitor, followed by heart and vascular care. 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 followed and monitored by heart and vascular care. Hypertension, controlled. Continue to monitor blood pressure/heart rate. Hyperlipidemia, continue on current medication monitor lipids Okay for discharge, continue on the same dose of Coumadin, PT/INR next week and appointment in my office in 2 weeks. Clinical Quality Measures DVT/VTE Risk/Contraindication: Risk Factor Score Per Nursin RFS Level Per Nursing on Admit: 4+=Very High PRANEETH SHUKLA MD May 27, 2018 11:40
--- NOTE | 2018-05-27 11:44 | D/C HH Face to Face Order ---
D/C Face to Face Orders Instructions for Patient Patient Instructions/FollowUp: Dr. Aki Ortiz Physician to follow Patient: Dr. Ortiz Discharge Diet for Home: Regular Diet Patient Data-Allergies,Ht & Wt Patient Allergies: Coded Allergies: NKANo Known Allergies (Verified Allergy, Unknown, 11/14/05) Height (Feet): 5 Height (Inches): 5.00 Weight (Pounds): 131 Weight (Ounces): 5.0 Home Health Need/Face to Face Date of Face to Face: May 27, 2018 Clinical Findings: Generalized weakness and fatigue, Muscle weakness, Shortness of breath I have seen Pt [id number]-[id number]: Yes Discharged To: Home Diagnosis/Conditions: R hip fracture Patient is Homebound due to: Yue fall risk due to instabilty, Muscle weakness , Shortness of breath/distress Homebound Status Due to the above stated illness, injury or surgical procedure (medical condition or diagnosis) and associated clinical findings, the patient is homebound because of his/her inability to leave home except with aid of a supportive device and/or person AND leaving the home requires a considerable and taxing effort or is medically contraindicated. Pt req the following assistanc: [facility] Nursing Orders Home Health Services Order: Nursing Services, Environmental Technology Professor-Evaluate & Treat, Physical Therapy-Evaluate & Treat SHOAIB REMOVED FROM RIGHT HIP INCISION AND STERI STRIPS APPLIED. ISLAND DRESSING PUT ON. MEDICATED WITH LORTAB FOR INCISIONAL DISCOMFORT. O2 oversight/management PT/INR draw on 06/03 Home Health Infusion Therapy Line Type: PICC Site Location: Arm-Upper Home Health Lab Orders Planned Date for INR: Jun 03, 2018 Therapy Orders Therapy Orders: OT (must have SN or PT order), Physical Therapy Therapy Specific Orders: Eval assistive deivces, Teach enviro modifications/ safety, Gait training, Increase strength/endurance Certify Stmt I certify that this patient is under my care and that I, a nurse practitioner or a physician; a trust manager assistant working with me, had a face to face encounter that - meets the physician face to face encounter requirements with this patient as dated. I personally scribed for MARYBEL ROSARIO MD ([facility]) on 05/27/18 at 09:01. Electronically submitted by Aimee Diaz ([id number]). I personally scribed for MARYBEL ROSARIO MD ([facility]) on 05/27/18 at 11:44. Electronically submitted by Aimee Diaz ([id number]). MARYBEL ROSARIO MD May 27, 2018 09:01
[2018-05-27 12:40] VITALS: BP 110/62
--- NOTE | 2018-05-27 13:58 | PM & R (SOAP) Progress Note ---
Subjective This was a face to face visit with the patient. Date Seen by Provider: May 27, 2018 Time Seen by Provider: 11:00 Subjective/Events-last exam Patient discharged to home with Family and HHC Case discussed with RN and ABIOLA INR and DR Sotelo note appreciated See orderes Date Identified: May 27, 2018 Time Identified: 11:00 Medication Intervention: coumadin dose reviewed by Cardiology Objective Physician Exam Last Set of Vital Signs Vital Signs Date Time Temp Pulse Resp B/P (MAP) Pulse Ox O2 Delivery O2 Flow Rate FiO2 05/27/18 12:40 74 18 110/62 94 Room Air 05/27/18 07:16 2.00 05/27/18 05:00 98.2 Capillary Refill : Less Than 3 Seconds I&O Intake and Output 05/27/18 00:00 Intake Total 1280 ml Balance 1280 ml Intake Oral 1280 ml # Voids 6 # Bowel Movements 1 General: Alert, Oriented X3, Cooperative, No Acute Distress HEENT: Atraumatic, PERRLA, EOMI, Mucous Memb Moist/[place] Neck: Supple, No JVD Lungs: Clear to Auscultation Heart: Regular Rate, Normal S1, Normal S2, Other (Systolic murmur at left sternal border) Abdomen: Normal Bowel Sounds, Soft, No Tenderness Extremities: No Clubbing, Other (trace edema rt ankle) Neuro: Normal Speech, Sensation Intact, Other (Strength LLE 3+/5 RLE 3-/5 Upper limb strength 4/5) Psych/Mental Status: Mental Status NL Results Lab Data Laboratory Tests 05/25/18 07:30: Prothrombin Time 19.2H, INR Comment 1.6H 05/26/18 05:46: Prothrombin Time 20.2H, INR Comment 1.7H, White Blood Count 5.1, Red Blood Count 2.71L, Hemoglobin 8.7L, Hematocrit 28L, Mean Corpuscular Volume 104H, Mean Corpuscular Hemoglobin 32, Mean Corpuscular Hemoglobin Concent 31L, Red Cell Distribution Width 15.6H, Platelet Count 323, Mean Platelet Volume 9.6, Neutrophils (%) (Auto) 62, Lymphocytes (%) (Auto) 19, Monocytes (%) (Auto) 11, Eosinophils (%) (Auto) 7, Basophils (%) (Auto) 1, Neutrophils # (Auto) 3.2, Lymphocytes # (Auto) 1.0, Monocytes # (Auto) 0.5, Eosinophils # (Auto) 0.3, Basophils # (Auto) 0.1, Sodium Level 139, Potassium Level 3.9, Chloride Level 101, Carbon Dioxide Level 29, Anion Gap 9, Blood Urea Nitrogen 30H, Creatinine 1.36H, Estimat Glomerular Filtration Rate 37, BUN/Creatinine Ratio 22, Glucose Level 87, Calcium Level 9.2, Magnesium Level 2.0 05/27/18 05:35: Prothrombin Time 21.7H, INR Comment 1.9H, White Blood Count 4.2L, Red Blood Count 2.63L, Hemoglobin 8.7L, Hematocrit 27L, Mean Corpuscular Volume 103H, Mean Corpuscular Hemoglobin 33, Mean Corpuscular Hemoglobin Concent 32, Red Cell Distribution Width 15.1H, Platelet Count 298, Mean Platelet Volume 9.3, Neutrophils (%) (Auto) 59, Lymphocytes (%) (Auto) 20, Monocytes (%) (Auto) 13H, Eosinophils (%) (Auto) 7, Basophils (%) (Auto) 2, Neutrophils # (Auto) 2.5, Lymphocytes # (Auto) 0.9L, Monocytes # (Auto) 0.5, Eosinophils # (Auto) 0.3, Basophils # (Auto) 0.1, Sodium Level 138, Potassium Level 4.0, Chloride Level 100, Carbon Dioxide Level 29, Anion Gap 9, Blood Urea Nitrogen 26H, Creatinine 1.21, Estimat Glomerular Filtration Rate 43, BUN/Creatinine Ratio 21, Glucose Level 83, Calcium Level 9.2 Assessment/Plan Assessment and Plan Home today with Family and HHC F/U with cardiology and PCP and ortho See orders Current meds reviewed Co-Morbidities that are continuing to impact the rehab process: (include details ) MARYBEL ROSARIO MD May 27, 2018 13:58
--- NOTE | 2018-05-28 09:30 | Therapy Team Discharge Summary ---
Therapy Discharge Summary Discharge Recommendations Date of Discharge May 27, 2018 at 12:40 Therapy D/C Recommendations: Physical Therapy Home Care Physical Therapy This patient was transferred to ARU post acute hospital stay. she had a fall and sustained a right hip fracture that was repaired with a hemiarthroplasty. Upon admission to ARU, she was min assist with transfers, ambulated 20 ft with min assist, and was only able to go up/down 1 step. Treatment focused on bed mobility, transfers, gait progression, balance, safety, functional activity tolerance and progress to mobilizing on her own. She has made excellent progress and achieved all goals set at evaluation. She is to discharge home with [facility] PT to follow. DC PT. Occupational Therapy Decreased Activ Tolerance, Decreased UE Strength, Dependent Transfers, Impaired Self-Care Skills PT Jail Goals Respiratory Therapy Assistant Goals PT Jail Goals Time Frame: Jun 01, 2018 Transfers (B,C,W/C) (FIM): 6 (met) Roll Left to Right (QC): 6 (met) Sit to Lying (QC): 6 (met) Lying-Sitting on Side/Bed(QC): 6 (met) Sit to Stand (QC): 6 (met) Chair/Cko-yd-Qrizl Xfer(QC): 6 (met) Car Transfer (QC): 6 (met) Does the Patient Walk: Yes Gait (FIM): 6 (met) Gait distance (FIM): 3=150 ft Distance: 200' Walk 10 feet (QC): 6 (met) Walk 10ft-Uneven Surface(QC): 6 (met) Walk 50ft with 2 Turns (QC): 6 (met) Walk 150 ft (QC): 6 (met) Gait Level of Assist: 6 Gait Assistive Device: FWW Stairs (FIM): 5 (exceeded; scored a 6) # of Steps: 8 1 Step (curb) (QC): 5 4 Steps (QC): 5 12 Steps (QC): 9 Stairs Level Of Assist: 5 Picking up an Object (QC): 5 (NA--hip precautions) All goals have been met OT Respiratory Therapy Assistant Goals Respiratory Therapy Assistant Goals Time Frame: Jun 01, 2018 Eating (FIM): 7 (no dentures) Eating (QC): 6 (met) Oral Hygiene (QC): 6 (met) Grooming(FIM): 6 (met) Bathing(FIM): 6 (met) Bathing Location: L Arm, R Arm, L Upper Leg, R Upper Leg, L Lower Leg ( including foot), R Lower Leg (including foot), Chest, Abdomen, Buttocks, Perineal Area Shower/Bathe Self (QC): 6 (met) Upper Body Dressing(FIM): 6 (met) Upper Body Dressing (QC): 6 (met) Lower Body Dressing(FIM): 6 (not met) Lower Body Dressing (QC): 6 (not met) On/Off Footwear (QC): 6 (met) Toileting(FIM): 6 (met) Toileting Hygiene (QC): 6 (met) Toilet/Commode Transfer(FIM): 6 (met) Toilet/Commode Transfer (QC): 6 (met) Shower Transfer(FIM): 5 (met) Additional Goals: 1-Demonstrate ADL Tasks, 2-Verbalize Understanding, 3- ImproveStrength/Rick 1=Demonstrate adherence to instructed precautions during ADL tasks. 2=Patient will verbalize/demonstrate understanding of assistive devices/ modifications for ADL. 3=Patient will improve strength/tolerance for activity to enable patient to perform ADL's. Speech Respiratory Therapy Assistant Goals Respiratory Therapy Assistant Goals no LTGs established as pt does not require skilled HARDIK RAUSCH PT May 28, 2018 09:30
--- NOTE | 2018-05-28 14:02 | Therapy Team Discharge Summary ---
Therapy Discharge Summary Discharge Recommendations Date of Discharge May 27, 2018 at 12:40 Therapy D/C Recommendations: Physical Therapy Home Care Occupational Therapy Pt admitted to ARU following acute hospitalization for right hip fracture with right total hip. On admission pt required mod assist for bathing and toilet transfer and max assist with LE dressing and toileting. Skilled OT intervention focused on ADL training, transfers, strengthening, adaptive equipment training, and home safety education. Pt made good progress with therapy and by discharge is completing LE dressing with set up for JAVIER hose and all other ADLs with modified independence or independent. Pt met all OT LTG except LE dressing secondary to set up for JAVIER hose. Pt discharged home and will d/c from ARU OT at this time. PT Nursing Home Goals Nursing Home Goals PT Frame Assembler Goals Time Frame: Jun 01, 2018 Transfers (B,C,W/C) (FIM): 6 (met) Roll Left to Right (QC): 6 (met) Sit to Lying (QC): 6 (met) Lying-Sitting on Side/Bed(QC): 6 (met) Sit to Stand (QC): 6 (met) Chair/Foz-hg-Ohthn Xfer(QC): 6 (met) Car Transfer (QC): 6 (met) Does the Patient Walk: Yes Gait (FIM): 6 (met) Gait distance (FIM): 3=150 ft Distance: 200' Walk 10 feet (QC): 6 (met) Walk 10ft-Uneven Surface(QC): 6 (met) Walk 50ft with 2 Turns (QC): 6 (met) Walk 150 ft (QC): 6 (met) Gait Level of Assist: 6 Gait Assistive Device: FWW Stairs (FIM): 5 (exceeded; scored a 6) # of Steps: 8 1 Step (curb) (QC): 5 4 Steps (QC): 5 12 Steps (QC): 9 Stairs Level Of Assist: 5 Picking up an Object (QC): 5 (NA--hip precautions) OT Nursing Home Goals Frame Assembler Goals Time Frame: Jun 01, 2018 Eating (FIM): 7 (no dentures) Eating (QC): 6 (met) Oral Hygiene (QC): 6 (met) Grooming(FIM): 6 (met) Bathing(FIM): 6 (met) Bathing Location: L Arm, R Arm, L Upper Leg, R Upper Leg, L Lower Leg ( including foot), R Lower Leg (including foot), Chest, Abdomen, Buttocks, Perineal Area Shower/Bathe Self (QC): 6 (met) Upper Body Dressing(FIM): 6 (met) Upper Body Dressing (QC): 6 (met) Lower Body Dressing(FIM): 6 (not met) Lower Body Dressing (QC): 6 (not met) On/Off Footwear (QC): 6 (met) Toileting(FIM): 6 (met) Toileting Hygiene (QC): 6 (met) Toilet/Commode Transfer(FIM): 6 (met) Toilet/Commode Transfer (QC): 6 (met) Shower Transfer(FIM): 5 (met) Additional Goals: 1-Demonstrate ADL Tasks, 2-Verbalize Understanding, 3- ImproveStrength/Rick 1=Demonstrate adherence to instructed precautions during ADL tasks. 2=Patient will verbalize/demonstrate understanding of assistive devices/ modifications for ADL. 3=Patient will improve strength/tolerance for activity to enable patient to perform ADL's. Speech Nursing Home Goals Frame Assembler Goals no LTGs established as pt does not require skilled [facility] OT May 28, 2018 14:02
--- NOTE | 2018-05-28 23:15 | DISCHARGE SUMMARY ---
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 The patient was evaluated in the ED and found to have a right femoral neck fracture. She was admitted to the service of Dr. Ortiz and followed by hospitalist service. The patient underwent right hip bipolar replacement and required transfusion of packed red blood cells postop. She had a decline in her functional independence and was referred to inpatient rehabilitation unit. PAST MEDICAL HISTORY: Atrial fibrillation, chronically anticoagulated; cardiomyopathy, coronary artery disease, hypercholesterolemia, hypertension, peripheral vascular disease, valvular heart disease. PAST SURGICAL HISTORY: Cholecystectomy, pacemaker and defibrillator placement, valve replacement, . SOCIAL HISTORY: She is a and lives in [place], [place]. PCP, Dr. Prabhakar. She uses O2 at night at home. MEDICAL COURSE: The patient was followed by Dr. Cota and hospitalist service and cardiology while in rehab unit. Her INR became supratherapeutic and INR Coumadin was held that became subtherapeutic Lovenox was provided prior to discharge to bring it back up to therapeutic levels as she has a mechanical heart valve. Dr. Parker okayed her discharge. Her INR on 05/27/2018 was 1.9, improved from 1.7 the day before. Chemistry on 05/27/2018 showed normal electrolytes. BUN elevated at 26, but down trending from 30 on 05/26/2018. Creatinine was 1.21, down from 1.36 on 05/26/2018. Ferritin level is 373.1 on 05/22/2018, TIBC 263. H and H on 05/27/2018 was 8.7/27, MCV 103, WBC 4.2. The patient had a chest x-ray on 05/20/2018 showing severe cardiomegaly with pulmonary vascular congestion and probable mild interstitial pulmonary edema, alveolar opacities in the left base, may be on the basis of superimposed pneumonia or atelectasis. The patient was provided with MAC protocol and incentive spirometry with improvement. She was afebrile during her stay. Her blood pressure on 05/27/2018 was 110/62, respirations 18, pulse 74, O2 sat 94% on room air. Her incision site was healing well. She was followed by Dr. Ortiz, orthopedics, as well. REHABILITATION COURSE: She progressed well with the therapy. She had increased strength and endurance, decreased pain. She was utilizing Voltaren gel for arthritic knee pain. Speech therapy assessed her upon admission to rehab unit, found her to be cognitively intact. They signed off. PHYSICAL THERAPY NOTES: Upon admission, she was min assist with transfers, could ambulate 20 feet with min assist and was only able to go up and down one step. Upon discharge, she is modified independent for bed mobility, transfers and gait with a front wheel walker. OCCUPATIONAL THEARPY: Upon admission, the patient required mod assist for bathing and toilet transfers, max assist with lower body dressing and toileting. The patient made good progress and by discharge was completing lower body dressing with setup for JAVIER hose and all other ADLs were modified independent or independent. DISCHARGE INSTRUCTIONS: The patient is discharged to home with her family and home health care. She will have followup with her PCP and orthopedics. Follow up INR with report to Dr. Parker. Follow up with Dr. Parker, cardiology. She is weightbearing as tolerated. DISCHARGE MEDICATIONS: Hydrocodone/APAP 5/325 one tablet p.o. q.4 hours p.r.n. moderate pain, metoprolol 25 mg p.o. q.i.d. Plavix 75 mg p.o. daily, digoxin 125 mcg p.o. daily, furosemide 40 mg p.o. b.i.d., Mucinex 600 mg p.o. b.i.d. p.r.n. congestion, Imdur 30 mg p.o. every day, levothyroxine 100 mcg p.o. daily, Claritin 10 mg p.o. daily, meclizine 25 mg p.o. t.i.d. p.r.n. dizziness, Zaroxolyn 2.5 mg p.o. on Sunday and Sunday, mexiletine 150 mg p.o. b.i.d., Nitrostat 0.4 mg sublingual p.r.n. chest pain, Protonix 40 mg p.o. daily, KCl 10 mEq p.o. b.i.d., Requip 0.5 mg p.o. t.i.d. p.r.n. restless legs, Entresto one tablet p.o. b.i.d., Coumadin 2 mg p.o. on Sunday, Sunday, Sunday, and 1 mg on Sunday, Sunday, , Sunday; Voltaren gel, apply topically to affected area q.i.d. p.r.n. DISCHARGE DIAGNOSES: 1. Rehabilitation, displaced right intracapsular femoral neck fracture status post bipolar replacement by Dr. Ortiz. Weightbearing as tolerated. 2. Postop blood loss anemia. 3. Difficulty walking. 4. Coronary artery disease. 5. Hypertension with chronic systolic congestive heart failure. 6. Abdominal aortic aneurysm. 7. Cardiomyopathy. 8. Chronic atrial fibrillation. 9. Peripheral vascular disease. 10. Respiratory insufficiency. 11. Hyperlipidemia. 12. Hypothyroidism. 13. Osteoarthritis. 14. Rheumatic mitral stenosis. 15. Venous insufficiency. 16. Long-term anticoagulants. 17. Aortic valve replacement. 18. Status post defibrillator. 19. O2 dependence. 20. Status post fall. CONDITION AT DISCHARGE: Improved and stable. PROGNOSIS: Rehab prognosis appears good for continued improvement at home and return to independent living. Job ID: [id number] DocumentID: [id number] Dictated Date: 05/28/2018 20:32:34 Office Clin Asst Date: 05/28/2018 23:14:39 Dictated By: MARYBEL COTA MD
== END 2018-05-27 12:40 | disposition home health service (06) | DRG 560 ==
PROVIDERS: ADMIT Physical Medicine & Rehabilitation; ATTEND Physical Medicine & Rehabilitation
DX: S72.011D Unspecified intracapsular fracture of right femur, subsequent encounter for closed fracture with routine healing (principal); Z96.641 Presence of right artificial hip joint; D62 Acute posthemorrhagic anemia; I42.8 Other cardiomyopathies; I11.0 Hypertensive heart disease with heart failure; I50.22 Chronic systolic (congestive) heart failure; R26.2 Difficulty in walking, not elsewhere classified; I25.10 Atherosclerotic heart disease of native coronary artery without angina pectoris; I48.2 Chronic atrial fibrillation; I71.4 Abdominal aortic aneurysm, without rupture; I70.293 Other atherosclerosis of native arteries of extremities, bilateral legs; E78.2 Mixed hyperlipidemia; E03.9 Hypothyroidism, unspecified; M19.91 Primary osteoarthritis, unspecified site; I05.0 Rheumatic mitral stenosis; I87.2 Venous insufficiency (chronic) (peripheral); R06.89 Other abnormalities of breathing; Z79.01 Long term (current) use of anticoagulants; W01.10XD Fall on same level from slipping, tripping and stumbling with subsequent striking against unspecified object, subsequent encounter; Z95.2 Presence of prosthetic heart valve; Z95.810 Presence of automatic (implantable) cardiac defibrillator; Z99.81 Dependence on supplemental oxygen
CPT/HCPCS: 36415; 71045; 71100; 80048; 82728; 83540; 83735; 85025; 85027; 85610; 94640; 94760

== ENCOUNTER → 2018-06-04 | Outpatient (CLI) | payer MEDICARE ==
[~2018-06-04] MED LIST changes: +ACHD5005 PO; +METO-387 PO
[2018-06-04 14:26] LABS: INR 1.8 (0.8-1.4); PROTHROMBIN TIME PATIENT 21.1 SEC (12.2-14.7)
== END ==
LOC: HH 06-03 08:00
PROVIDERS: ATTEND Orthopaedic Surgery
DX: R06.02 Shortness of breath (principal); R53.1 Weakness
CPT/HCPCS: 85610

== ENCOUNTER → 2018-06-10 | Outpatient (CLI) | payer MEDICARE | LOC: HH 16:09 | PROVIDERS: ATTEND Internal Medicine | DX: R06.02 Shortness of breath (principal); R53.1 Weakness; Z87.81 Personal history of (healed) traumatic fracture | CPT/HCPCS: 85610 ==

== ENCOUNTER → 2018-06-14 | Outpatient (CLI) | payer MEDICARE | LOC: HH 08:00 | PROVIDERS: ATTEND Internal Medicine | DX: Z51.81 Encounter for therapeutic drug level monitoring (principal); Z79.01 Long term (current) use of anticoagulants ==

== ENCOUNTER 2018-07-19 13:08 | Outpatient (RCR) | payer MEDICARE | END 2018-07-19 14:04 | disposition home or self-care (01) | PROVIDERS: ATTEND Orthopaedic Surgery | DX: Z47.1 Aftercare following joint replacement surgery (principal); Z96.641 Presence of right artificial hip joint ==

== ENCOUNTER → 2019-03-13 | Outpatient (CLI) | payer MEDICARE ==
[~2019-03-13] MED LIST changes: +LOSA25TA41 PO; -LOSA25TA6 PO
== END ==
LOC: WOUNDCARE 09:18
PROVIDERS: ATTEND Nurse Practitioner
DX: I70.261 Atherosclerosis of native arteries of extremities with gangrene, right leg (principal); L97.312 Non-pressure chronic ulcer of right ankle with fat layer exposed
CPT/HCPCS: 99213

== ENCOUNTER → 2019-03-20 | Outpatient (CLI) | payer MEDICARE | LOC: WOUNDCARE 09:13 | PROVIDERS: ATTEND Nurse Practitioner | DX: I70.233 Atherosclerosis of native arteries of right leg with ulceration of ankle (principal); L97.312 Non-pressure chronic ulcer of right ankle with fat layer exposed; I96 Gangrene, not elsewhere classified | CPT/HCPCS: 99212 ==

== ENCOUNTER 2019-03-26 07:45 | Inpatient (IN) | payer MEDICARE | END 2019-04-01 14:08 | disposition other institution (70) | LOC: 4TH 03-27 09:35 → ER 07:45 → 4TH 11:10 → ICU 11:43 | DX: T45.511A Poisoning by anticoagulants, accidental (unintentional), initial encounter (principal); S30.1XXA Contusion of abdominal wall, initial encounter; R23.3 Spontaneous ecchymoses; R18.8 Other ascites; R79.1 Abnormal coagulation profile; I13.0 Hypertensive heart and chronic kidney disease with heart failure and stage 1 through stage 4 chronic kidney disease, or unspecified chronic kidney disease; N18.4 Chronic kidney disease, stage 4 (severe); I50.22 Chronic systolic (congestive) heart failure; I42.8 Other cardiomyopathies; N17.9 Acute kidney failure, unspecified; I48.2 Chronic atrial fibrillation; E03.9 Hypothyroidism, unspecified; E78.2 Mixed hyperlipidemia; D64.9 Anemia, unspecified; R53.81 Other malaise; I27.20 Pulmonary hypertension, unspecified; I25.10 Atherosclerotic heart disease of native coronary artery without angina pectoris; I87.2 Venous insufficiency (chronic) (peripheral); I70.203 Unspecified atherosclerosis of native arteries of extremities, bilateral legs; I70.0 Atherosclerosis of aorta; I71.4 Abdominal aortic aneurysm, without rupture; I65.29 Occlusion and stenosis of unspecified carotid artery; I08.1 Rheumatic disorders of both mitral and tricuspid valves; R41.0 Disorientation, unspecified; T40.4X5A Adverse effect of other synthetic narcotics, initial encounter; Z79.01 Long term (current) use of anticoagulants; Z79.02 Long term (current) use of antithrombotics/antiplatelets; Z95.2 Presence of prosthetic heart valve; Z95.810 Presence of automatic (implantable) cardiac defibrillator; Z99.81 Dependence on supplemental oxygen ==

== ENCOUNTER 2019-04-07 16:04 | Inpatient (IN) | payer MEDICARE ==
[~2019-04-07] VITALS: Ht 167.6 cm; Wt 56.4 kg
[~2019-04-07 16:04] MED LIST changes: +FLUT12AE4 IH; +OMEP20CA13 PO; +POTA10TA6 PO; +WARF1TAB PO
--- OUTSIDE RECORDS SUMMARY | 2019-04-07 16:08 | XMS REPORT | Clinical Summary ---
Author Author [facility] Organization [facility] Address Unknown Phone Unavailable Care Team Providers Care Field Crop Technical Officer Name Role Phone Jake Prabhakar MD PCP Kristi Charlton Unavailable Eliceo Parker MD 21 Source Comments Some departments are not documenting in the electronic medical record. If you d o not see the information that you expected, contact Release of Information in [facility] Information Management department at [phone] for further assistan ce in locating additional records.[facility] Allergies No Known Allergies Medications End Date Status Medication Sig Dispensed Refills Start Date Active levothyroxine (SYNTHROID) Take 100 mcg 0 100 mcg tablet by mouth daily. Active warfarin (COUMADIN) 2 mg Take 4 mg by 0 tablet mouth daily. Or as directed per your physician Active meclizine (ANTIVERT) 25 Take 25 mg by 0 mg tablet mouth every 8 hours as needed. For vertigo Active nitroglycerin (NITROSTAT) Place 0.4 mg 0 0.4 mg tablet under tongue every 5 minutes as needed. Active digoxin (LANOXIN) 125 mcg Take 1 Tab by 30 Tab 11 tabletIndications: mouth daily. 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 Active potassium chloride SR Take 1 Tab by 90 Cap 0 (K-DUR) 10 mEq tablet mouth twice 5 daily. Active isosorbide mononitrate SR Take 15 mg by 0 (IMDUR) 30 mg tablet mouth every morning. Active sacubitril/valsartan Take 1 tablet 0 (ENTRESTO) 24/26 mg by mouth tablet twice daily. Active furosemide (LASIX) 40 mg Take 40 mg by 0 tablet mouth twice daily. Active mexiletine (MEXITIL) 150 Take 150 mg 0 mg capsule by mouth every [address] Take 40 mg by 0 (PROTONIX) 40 mg tablet mouth daily. Active rOPINIRole (REQUIP) 0.5 Take 0.5 mg 0 mg tablet by mouth twice daily. Active acetaminophen (TYLENOL) Take 500 mg 0 500 mg tablet by mouth every 6 hours as needed for Pain. Max of 4,000 mg of acetaminophen in 24 hours. Active metOLazone (ZAROXOLYN) Take 2.5 mg 0 2.5 mg tablet by mouth as directed. Mon, Fri and as needed Active metoprolol XL (TOPROL XL) Take 25 mg by 0 25 mg extended release mouth daily. tablet Active clopiDOGrel (PLAVIX) 75 Take 75 mg by 0 mg tablet mouth daily. Active Problems Problem Noted Date Mitral stenosis [...] block (RBBB) with posterior hemiblock 03/21/2012 Cardiomyopathy 03/21/2012 Overview: : EF 30, dilated LV. Severe MR & TR PAP 55 (42 a year earlier, EF 35, MR and TR mod-severe). AVR "OK" Chronic systolic CHF (congestive heart failure), NYHA class 3 03/21/2012 Last Assessment & Plan: Echo in November [...] assessed in November and demonstrated normal function meterman current use of anticoagulant 03/19/2012 HLD (hyperlipidemia) 03/19/2012 PVD (peripheral vascular disease) 03/19/2012 Atrial fibrillation 03/19/2012 Overview: Permanent as of 2011 90+% paced-DDIR at 70 on cardizem 240, dig .125, coreg 6.25bid 08/07/12 Initiated on digoxin 0.125mcg daily to assist with BiV pacing pacing L ast Assessment & Plan: Continues to be in permanent atrial fibrillation. Overall well rate controlled. Biventricular ICD (implantable cardioverter-defibrillator) in place 03/18/2012 Overview: MDT DC PPM- L side 200408/07/12 [employer] OVEREDGER-D upgrade implant + DFTs with Dr. Ceja. Roxy ast Assessment & Plan: Device was checked today and demonstrated normal function. See device check and cardiovascular studies for further details. Resolved Problems Problem Noted Date Resolved Date ERRONEOUS ENCOUNTER--DISREGARD 09/01/2015 02/18/2018 Dilated cardiomyopathy 03/18/2012 03/21/2012 Family History Medical History Relation Name Comments Coronary Artery Disease Mother of [place] Diabetes Mother Hyperlipidemia Mother Hypertension Mother Relation Name Status Comments Mother Social History Date Tobacco Use Types Packs/Day Years Used Never Smoker Smokeless Tobacco: Never Used Drinks/Week oz/Week Comments Alcohol Use No Sex Assigned at Date Recorded Not on file Industry Job Start Date Occupation Not on file Not on file Not on file Travel End Travel History Travel Start No recent travel history available. Last Filed Vital Signs Reading Time Taken Comments Vital Sign 120/70 12/30/2018 1:30 PM CDT Blood Pressure 95 12/30/2018 1:30 PM CDT Pulse 36.6 C (97.9 F) 08/09/2012 11:25 AM CORE FITTER Temperature - - Respiratory Rate 96% 12/30/2018 1:30 PM CDT Oxygen Saturation - - Inhaled Oxygen Concentration 62.1 kg (137 lb) 12/30/2018 1:30 PM CDT Weight 165.1 cm (5' 5") 12/30/2018 1:30 PM CDT Height 22.8 12/30/2018 1:30 PM CDT Body Mass Index Plan of Treatment Health Maintenance Due Date Last Done Comments PHYSICAL (COMPREHENSIVE) 1944 EXAM DTAP/TDAP VACCINES (1 - 1955 Tdap) SHINGLES RECOMBINANT 1987 VACCINE (1 of 2) OSTEOPOROSIS 2002 SCREENING/MONITORING PNEUMONIA (PCV13/PPSV23) 2002 VACCINES (1 of 2 - PCV13) INFLUENZA VACCINE 06/03/2019 07/20/2005 Implants Device Identifier Shelf Expiration Date Model / Serial / Lot Implanted Type Area Manufactur er Icd ICD Results Not on filefrom Last 3 Months Insurance Type Payer Benefit Subscriber ID Effective Phone Address Plan / Dates Group Medicare MEDICARE MEDICARE xxxxxxxxxx 2002- PART A AND Present B Medicare [facility] xxxxxxxxxxxx 2017-P SUPPLEMENT resent Advance Directives Patient Medical Staff Services Coordinator Explanation Type Date Recorded Advance 12/11/2013 4:17 PM Directive/DPOA Date Inactivated Comments Code Status Date Activated 08/09/2012 3:17 PM Full Code 08/07/2012 8:38 AM Provider has discussed Code Status No, more discussion w/Patient or Family? needed
--- OUTSIDE RECORDS SUMMARY | 2019-04-07 16:09 | XMS REPORT | Encounter Summary ---
Author Author [facility] Organization [facility] Address Unknown Phone Unavailable Care Team Providers Care Manager Biologics Name Role Phone Jake Prabhakar MD PCP Kristi Charlton Unavailable Eliceo Parker MD 21 Reason for Visit * Reason Comments Cardiac Eval MR/[place] Eval Encounter Details Care Team Description Date Type Department Kendall Davila MD [address] [address] Cardiac Eval (MR/[place] Eval) 12/30/2018 Office Visit [facility] [address] [id number] Social History Date Tobacco Use Types Packs/Day Years Used Never Smoker Smokeless Tobacco: Never Used Drinks/Week oz/Week Comments Alcohol Use No Sex Assigned at Date Recorded Not on file Industry Job Start Date Occupation Not on file Not on file Not on file Travel End Travel History Travel Start No recent travel history available. documented as of this encounter Last Filed Vital Signs Reading Time Taken Comments Vital Sign 120/70 12/30/2018 1:30 PM CDT Blood Pressure 95 12/30/2018 1:30 PM CDT Pulse - - Temperature - - Respiratory Rate 96% 12/30/2018 1:30 PM CDT Oxygen Saturation - - Inhaled Oxygen Concentration 62.1 kg (137 lb) 12/30/2018 1:30 PM CDT Weight 165.1 cm (5' 5") 12/30/2018 1:30 PM CDT Height 22.8 12/30/2018 1:30 PM CDT Body Mass Index documented in this encounter Progress Notes * Kendall Davila MD - 12/30/2018 2:00 PM CDT Date of Service: 12/30/2018 Anisha Mcfarland is a 83 y.o. female. HPI We had the pleasure of seeingAnisha Valle was referred for further e valuation of mitral regurgitation. She is a 83-year-old with history of nonisc hemic cardiomyopathy, rheumatic valvedisease, permanent atrial fibrillation, p eripheral vascular disease with RECRUITING TEAM LEAD to right leg in 2017,hypothyroidism, systo lic heart failure. She had a mechanical aortic valve replacement 1998 for abimbola re aortic regurgitation. She hasdeveloped severe mitral and tricuspidregur gitation and mitral stenosis and was initially evaluated by us forlowell sethi. She was adamantly opposed to surgical valve replacement. She wasnot felt to be a candidate for mitraclipsecondary to moderate MS. Her EF was in t he 30 to 35% range but she was placed on Entresto which resulted in symptomatic improvement. We saw her again last February and discussed the [place] trial but she was feeling well and did not want any further work-up at that time. She had a hospitalization in November for flash pulmonary edema and congestive hear t failure. An echo at that time revealed an EF of 45%, severe mitral regurgitat ion and moderate, possibly severe moderate mitral stenosis. She also had severe tricuspid regurgitation. Her PCP and pierce and shave press operator wanted her to come back for reevaluation and consideration of the [place] trial. On a day-to-day basis is stable and able to do her ADLs without signi ficant limitations. She does her own housework and mows her yard with a riding lawnmower without limitations. 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 Vitals: 12/30/18 1330 BP: 120/70 Pulse: 95 SpO2: 96% Weight: 62.1 kg (137 lb) Height: 1.651 m (5' 5") Body mass index is 22.8 kg/m. Past Medical History Patient Active Problem List Diagnosis Date Noted Mitral stenosis 02/18/2018 Aortic insufficiency 02/18/2018 PVC's (premature ventricular contractions) 12/15/2013 12/15/2013 - PVC burden approx 8%. Started on mexiletine 150 mg twice daily. Mitral valve regurgitation 12/15/2013 11/17/13 - flow velocity across the mitral valve is 2.25 m/sec the mean gradien t 6.7 mmHg. Calculated valve area is 1.3 sq cm 01/27/14 Echo: EF 40%. Moderately dilated LV. Severely dilated LA and moderate ly dilated RA. Normally functioning mechanical AV prosthesis, Mild AI. Moderate to severe mitral regurgitation. Mild mitral stenosis. Sev ere tricuspid regurgitation. PAP=65 mmHg. 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 Severe MR & TR PAP 55 (42 a year earlier, EF 35, MR and TR mod-severe). AVR "OK" Chronic systolic CHF (congestive heart failure), NYHA class 3 ([facility]) 03/21/20 12 S/P aortic valve replacement with prosthetic valve 03/19/20121998 for severe AI FPC current use of anticoagulant 03/19/2012 HLD (hyperlipidemia) 03/19/2012 PVD (peripheral vascular disease) ([facility]) 03/19/2012 Atrial fibrillation ([facility]) 03/19/2012 Permanent as of 2011 90+% paced-DDIR at 70 on cardizem 240, dig .125, coreg 6.25bid 08/07/12 Initiated on digoxin 0.125mcg daily to assist with BiV pacing pacing Biventricular ICD (implantable cardioverter-defibrillator) in place 03/18/20 12 MDT DC PPM- L side 200408/07/12 [facility] ACCOUNT SERVICES MANAGER-D upgrade implant + DFTs with Dr. Ceja. Review of Systems Constitution: Negative. HENT: Negative. Eyes: Negative. Cardiovascular: Positive for dyspnea on exertion and irregular heartbeat. Respiratory: Positive for cough. Endocrine: Positive for cold intolerance. Hematologic/Lymphatic: Negative. Skin: Negative. Musculoskeletal: Negative. Gastrointestinal: Negative. Genitourinary: Negative. Neurological: Negative. Psychiatric/Behavioral: Negative. Allergic/Immunologic: Negative. Physical Exam General Appearance: no acute distress Skin: warm & intact HEENT: unremarkable Neck Veins: neck veins are flat & not distended Carotid Arteries: no bruits Chest Inspection: chest is normal in appearance Auscultation/Percussion: lungs clear to auscultation, no rales, rhonchi, or whee zing Cardiac Rhythm: regular rhythm & normal rate Cardiac Auscultation: mechanical valve sounds, no S3 or S4, no rub Murmurs: 3/6 systolic murmur Extremities: no lower extremity edema; 2+ symmetric distal pulses Abdominal Exam: soft, non-tender, no masses, bowel sounds normal Liver & Spleen: no organomegaly Neurologic Exam: oriented to time, place and person; no focal neurologic deficit s Psychiatric: Normal mood and affect. Behavior is normal. Judgment and thought c ontent normal. Cardiovascular Studies Preliminary EKG: V-paced. PVCs Problems Addressed Today Encounter Diagnoses Name Primary? Mitral valve insufficiency, unspecified etiology Yes Mitral valve stenosis, unspecified etiology Chronic systolic CHF (congestive heart failure), NYHA class 3 (HCC) Atrial fibrillation, unspecified type (HCC) Cardiomyopathy, unspecified type (HCC) Biventricular ICD (implantable cardioverter-defibrillator) in place Assessment and Plan 1. Severe mitral regurgitation with mitral stenosis. She needs to have a STEVEN to further assess the mitral valve to determine her options. The mitral gradient will need to be assessed with this study as mitral stenosis may be the limiting factor. We will also plan a CTA as part of the [place] trial protocol. 2. Aortic regurgitation status post mechanical aortic valve. She is on warfari n for anticoagulation. Recent echo shows that the valve is stable. 3. Nonischemic cardiomyopathy. Her EF improved to 45% on Entresto. She is on op timal medical therapy including Toprol 50 mg daily and Entresto 24/26 mg twice d aily. She has no evidence of volume overload currently. 4. Permanent atrial fibrillation. She is on warfarin for anticoagulation. 5. Peripheral vascular disease. She has had prior peripheral intervention. 6. Acute on chronic diastolic heart failure. We will make further recommendations after the testing is complete. Thank you f or allowing us to participate in the care of this pleasant individual. If you h ave any other questions or concerns, please do not hesitate to contact us. Anisha is an 83-year-old female who we are evaluating for evaluation of her socorro ral valve. She has mixed mitral valve disease with both mitral stenosis and socorro ral insufficiency, however not a high degree of annular calcification. She has had a prior open chest procedure to replace her aortic valve and her STS is calc ulated at around 17%. Reviewing her transthoracic echocardiogram my primary con cern is her mitral stenosis. She is clearly not a candidate for MitraClip thera py, however may be a candidate for the [place] trial depending on the severity of the calcification noted on her transesophageal echo and CT scan. Currently, her symptoms are stable however she did have a recent hospitalization for flash pu lmonary edema. We discussed the natural history of her valve disease and I feel really the best option is to determine whether or not she is going to be a cand idate for the [place] trial. If not, she really has limited options and we can f ocus more on pharmacotherapy. Her physical exam demonstrates a prominent aortic click with a 2/6 systolic ejection murmur at towards the apex, her lungs were c lear to auscultation bilaterally and she had 1+ bilateral lower extremity pittin g edema. We will plan to proceed with a transesophageal echocardiogram and gate d cardiac CT. Thanks for allowing us to participate in we will plan to keep you informed us the results of her upcoming work-up. Kendall Davila MD Current Medications (including today's revisions) acetaminophen (TYLENOL) 500 mg tablet Take 500 mg by mouth every 6 hours as needed for Pain. Max of 4,000 mg of acetaminophen in 24 hours. clopiDOGrel (PLAVIX) 75 mg tablet Take 75 mg by mouth daily. digoxin (LANOXIN) 125 mcg tablet Take 1 Tab by mouth daily. furosemide (LASIX) 40 mg tablet Take 40 mg by mouth twice daily. isosorbide mononitrate SR (IMDUR) 30 mg tablet Take 15 mg by mouth every mor pat. levothyroxine (SYNTHROID) 100 mcg tablet Take 100 mcg by mouth daily. loratadine (CLARITIN) 10 mg tablet Take 10 mg by mouth daily. meclizine (ANTIVERT) 25 mg tablet Take 25 mg by mouth every 8 hours as neede d. For vertigo metOLazone (ZAROXOLYN) 2.5 mg tablet Take 2.5 mg by mouth as directed. Mon, Fri and as needed metoprolol XL (TOPROL XL) 25 mg extended release tablet Take 25 mg by mouth daily. mexiletine (MEXITIL) 150 mg capsule Take 150 mg by mouth every 12 hours. nitroglycerin (NITROSTAT) 0.[address] 0.4 mg under tongue every 5 mi nutes as needed. pantoprazole DR (PROTONIX) 40 mg tablet Take 40 mg by mouth daily. potassium chloride SR (K-DUR) 10 mEq tablet Take 1 Tab by mouth twice daily. (Patient taking differently: Take 10 mEq by mouth daily.) rOPINIRole (REQUIP) 0.5 mg tablet Take 0.5 mg by mouth twice daily. sacubitril/valsartan (ENTRESTO) 24/26 mg tablet Take 1 tablet by mouth twice daily. warfarin (COUMADIN) 2 mg tablet Take 4 mg by mouth daily. Or as directed per your physician documented in this encounter Plan of Treatment Order Schedule Name Type Priority Associated Diagnoses Ordered: 12/30/2018 ECG 12-LEAD ECG Routine Mitral valve insufficiency, unspecified etiology documented as of this encounter Visit Diagnoses Diagnosis Mitral valve insufficiency, unspecified etiology - Primary Mitral valve stenosis, unspecified etiology Chronic systolic CHF (congestive heart failure), NYHA class 3 (HCC) Chronic systolic heart failure Atrial fibrillation, unspecified type (HCC) Cardiomyopathy, unspecified type (HCC) Biventricular ICD (implantable cardioverter-defibrillator) in place documented in this encounter
--- OUTSIDE RECORDS SUMMARY | 2019-04-07 16:09 | XMS REPORT | Encounter Summary ---
Author Author [facility] Organization [facility] Address Unknown Phone Unavailable Care Team Providers Care Animal Rides Manager Name Role Phone Jake Prabhakar MD PCP Kristi Charlton Unavailable Eliceo Parker MD 21 Reason for Visit * Reason Comments Cardiac Eval Ref. Dhruv Myles re-eval * Consult, Test & Treat (Routine) Referred By Contact Referred To Contact Status Reason Specialty Diagnoses / Procedures Eliceo Parker MD [address] [place] [address] [facility] [address] [address] New Request Specialty Services Cardiothoracic Diagnoses Required Surgery Mitral valve insufficiency, unspecified etiology Encounter Details Care Team Description Date Type Department Eren Ashley MD [address] [address] Non-rheumatic mitral regurgitation (Primary Dx) 12/30/2018 Office Visit [facility] [address] [address] Social History Date Tobacco Use Types Packs/Day [...] Time Taken Comments Vital Sign 120/70 12/30/2018 1:05 PM CDT Blood Pressure 95 12/30/2018 1:05 PM CDT Pulse - - Temperature - - Respiratory Rate 96% 12/30/2018 1:05 PM CDT Oxygen Saturation - - Inhaled Oxygen Concentration 62.1 kg (137 lb) 12/30/2018 1:05 PM CDT Weight 165.1 cm (5' 5") 12/30/2018 1:05 PM CDT Height 22.8 12/30/2018 1:05 PM CDT Body Mass Index documented in this encounter Progress Notes * Eren Ashley MD - 12/30/2018 1:30 PM CDT Date of Service: 12/30/2018 Subjective: Anisha Mcfarland is a 83 y.o. female. History of Present Illness We had the pleasure of seeing Anisha Mcfarland who was referred for further logan luation of mitral regurgitation. She is a 83-year-old with history of nonischem ic cardiomyopathy, rheumatic valve disease, permanent atrial fibrillation, perip heral vascular disease, hypothyroidism, systolic heart failure. She had a mecha nical aortic valve replacement 1998 for severe aortic regurgitation. She has de veloped severe mitral and tricuspid regurgitation and mitral stenosis and was in itially evaluated by us for valve replacement. She was adamantly opposed to acosta gical valve replacement. She was not felt to be a candidate for mitraclip secon arnold to moderate MS. Her EF was in the 30 to 35% range but she was placed on Ent emily which resulted in symptomatic improvement. We saw her again last February and discussed the [place] trial but she was feeling well and did not want any further work-up at that time. She had a hospitalization in November for flash pulmonary edema and congestive hear t failure. An echo at that time revealed an EF of 45%, severe mitral regurgitat ion and moderate, possibly severe moderate mitral stenosis. She also had severe tricuspid regurgitation. Her PCP and personnel assistant wanted her to come back for reevaluation and consideration of the [place] trial. On a day-to-day basis is stable and able to do her ADLs without signi ficant limitations. She does her own housework and mows her yard with a riding lawnmower without limitations. 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 Preliminary STS MV replacement Risk of Mortality: 17.118% Renal Failure: 4.813% Permanent Stroke: 4.205% Prolonged Ventilation: 29.712% DSW Infection: 0.092% Reoperation: 7.486% Morbidity or Mortality: 35.251% Short Length of Stay: 7.228% Long Length of Stay: 28.135% MV repair Risk of Mortality: 9.271% Renal Failure: 3.677% Permanent Stroke: 3.457% Prolonged Ventilation: 24.749% DSW Infection: 0.048% Reoperation: 5.371% Morbidity or Mortality: 29.922% Short Length of Stay: 9.365% Long Length of Stay: 16.406% Review of Systems Constitution: Negative. HENT: Negative. Eyes: Negative. Cardiovascular: Positive for dyspnea on exertion and irregular heartbeat. Respiratory: Positive for cough. Endocrine: Positive for cold intolerance. Hematologic/Lymphatic: Negative. Skin: Negative. Musculoskeletal: Negative. Gastrointestinal: Negative. Genitourinary: Negative. Neurological: Negative. Psychiatric/Behavioral: Negative. Medical History: Diagnosis Date AAA (abdominal aortic aneurysm) ([facility]) Atrial fibrillation ([facility]) 03/19/2012 CAD (coronary artery disease) CHF (congestive heart failure) ([facility]) CKD (chronic kidney disease) Dilated cardiomyopathy ([facility]) 03/18/2012 HLD (hyperlipidemia) 03/19/2012 HTN (hypertension) Hypothyroidism Hypoxia Mitral stenosis Osteoporosis PAD (peripheral artery disease) ([facility]) PVD (peripheral vascular disease) ([facility]) 03/19/2012 Restrictive lung disease SSS (sick sinus syndrome) ([facility]) Surgical History: Procedure Laterality Date AORTIC VALVE REPLACEMENT 1998 CARDIAC PACEMAKER PLACEMENT 2004 LAP CHOLECYSTECTOMY 2010 CATARACT REMOVAL 2005,2006 bilateral SECTION x 3 Family History Problem Relation Age of Onset Coronary Artery Disease Mother 55 of [place] Hyperlipidemia Mother Diabetes Mother Hypertension Mother Social History Socioeconomic History Marital status: Spouse name: Not on file Number of children: Not on file Years of education: Not on file Highest education level: Not on file Occupational History Not on file Tobacco Use Smoking status: Never Smoker Smokeless tobacco: Never Used Substance and Sexual Activity Alcohol use: No Drug use: No Sexual activity: Not on file Other Topics Concern Not on file Social History Narrative Not on file Objective: acetaminophen (TYLENOL) 500 mg tablet Take [...] Or as directed per your physician Vitals: 12/30/18 1305 BP: 120/70 Pulse: 95 SpO2: 96% Weight: 62.1 kg (137 lb) Height: 1.651 m (5' 5") Body mass index is 22.8 kg/m. Physical Exam General Appearance: no acute [...] normal. Judgment and thought c ontent normal. Assessment and Plan: 1. Mitral regurgitation and mitral stenosis 2. Aortic valve stenosis status post mechanical aortic valve replacement 3. Permanent atrial fibrillation. 4. Peripheral vascular disease 5. Acute on chronic heart failure 6. Ischemic cardiomyopathy. 7. PVCs. She needs a STEVEN for further assessment of her mitral valve. We will also plan a CT as part of the [place] trial work-up and at that point we will determine if s he is a candidate. Thank you for allowing us to participate in the care of this pleasant individual. If you have any other questions or concerns, please do not hesitate to contact us. GISSELL Adams I performed a history and physical examination of the patient and discussed his management with the midlevel provider. I reviewed the midlevel provider note and agree with the documented findings and plan of care. This patient remains relatively asymptomatic although it is hard to ascertain ho w active she really is. She has mitral regurgitation and stenosis. Her mitral regurgitation is severe. Her mitral stenosis is mild and she does have some socorro ral annular calcification. She is cachectic and certainly not a candidate for t raditional open surgery because of prohibitive risk of complications that are se minal. We are currently evaluating her candidacy for the [place] trial/transcathe ter mitral valve replacement. She is not sure at all that she would like any pr ocedure performed at this time but is not opposed to undergoing a portion of the work-up for this including a CT scan. We will therefore proceed with a cardiac CT and a preliminary work-up for debbie moody in the [place] trial. I spent 35 I truly appreciate the opportunity of taking care of your delightful patient. Thank you very much for the kind referral. We will keep you updated. Sincerely, Eren Ashley MD Cardiovascular and Thoracic Surgery [facility] [place], [place] [email or web address] minutes with this patient, over 50 percent of which was dedicated to counseling or coordination of care. documented in this encounter Plan of Treatment Not on filedocumented as of this encounter Procedures Comments Procedure Name Priority Date/Time Associated Diagnosis ECG-SCAN 12/30/2018 12:00 AM CDT documented in this encounter Results * ECG-SCAN (12/30/2018 12:00 AM CDT) Narrative Performed At Ordered by an unspecified provider. documented in this encounter Visit Diagnoses Diagnosis Non-rheumatic mitral regurgitation - Primary Mitral valve disorders documented in this encounter
--- OUTSIDE RECORDS SUMMARY | 2019-04-07 16:09 | XMS REPORT | Encounter Summary ---
Author Author [facility] Organization [facility] Address Unknown Phone Unavailable Care Team Providers Care Certified Family Mediator Name Role Phone Jake Prabhakar MD PCP Kristi Charlton Unavailable Eliceo Parker MD 21 Reason for Referral * Consult, Test & Treat (Routine) Referred By Contact Referred To Contact Status Reason Specialty Diagnoses / Procedures Eliceo Parker MD [address] [place] [address] [facility] [address] [address] New Request Specialty Services Cardiothoracic Diagnoses Required Surgery Mitral valve insufficiency, unspecified etiology Reason for Visit * Reason Comments Navigation Assessment MR/Centre evaluation Encounter Details Care Team Description Date Type Department Shannon Oviedo RN Navigation Assessment (MR/Centre evaluation) 11/27/2018 Patient Profile The [facility] [address] [facility] [place] [address] Social History Date Tobacco Use Types Packs/Day Years Used Never Smoker Smokeless Tobacco: Never Used Drinks/Week oz/Week Comments Alcohol Use No Sex Assigned at Date Recorded Not on file Industry Job Start Date Occupation Not on file Not on file Not on file Travel End Travel History Travel Start No recent travel history available. documented as of this encounter Progress Notes * Shannon Oviedo RN - 11/27/2018 2:45 PM CDT Cardiac Navigation Intake Assessment Document Patient Name: Anisha Mcfarland : 1935 Insurance: Payor: MEDICARE / Plan: MEDICARE PART A AND B / Product Type: Medic are / Appointment Info: Future Appointments Date Time Provider Department Center 12/30/2018 1:30 PM Eren Ashley MD [facility] 12/30/2018 2:00 PM Kendall Davila MD [facility] Diagnosis & Reason for Visit: MR/Centre re-eval Physician Info: Referring Physician(Sports Umpire): Eliceo Parker MD PCP: Jake Prabhakar MD Location of Films: [facility]- [facility] History of Present Illness: 03/07/18 Carotid US Right carotid: Moderate disease Left carotid: Mild disease 11/06- 11/09 Admission Admit for systolic heart failure and shortness of breath 11/07/18 Echo Aortic valve:mechanical prosthesis with mild insufficiency Mitral Valve: severe regurgitation, moderate and probably severe stenosis Tricuspid valve: severe regurgitation RVSP: 57mmHg Large biatrial enlargement EF: 45% Add'l results per report 11/18/[address] Parker Plan: Referral for an Centre re-eval Medical history(Pertinent to valve workup) : AAA, Atrial fibrillation, CKD, PAD , PVD, Restrictive lung disease Surgery/Procedure history (Pertinent to valve workup) : Carotid US & Echo (results above) Reported heart failure symptoms: LE edema NEEDS Assessment: Social Work/Financial: No need identified Physical: Independent, works a couple hours a day Communication: No needs identified Reviewed records with Anisa Mccormick APRN Plan: STEVEN, Office vi sit Comments: Spoke to Ms. Mcfarland. Updated on current plan. She only wishes to hav e an appointment with the physicians. Determined the best date for an appointmen t. Educated to all appointment information. documented in this encounter Miscellaneous Notes * Addendum Note - Shannon Oviedo RN - 11/27/2018 2:45 PM CDT Addended by: SHANNON OVIEDO on: 12/25/2018 08:41 PM Modules accepted: Orders documented in this encounter Plan of Treatment Order Schedule Name Type Priority Associated Diagnoses Ordered: 11/27/2018 AMB REFERRAL TO Outpatient Routine Mitral valve CARDIOVASCULAR SURGERY Referral insufficiency, unspecified etiology documented as of this encounter Visit Diagnoses Diagnosis Mitral valve insufficiency, unspecified etiology - Primary documented in this encounter
--- OUTSIDE RECORDS SUMMARY | 2019-04-07 16:09 | XMS REPORT | Encounter Summary ---
Author Author [facility] Organization [facility] Address Unknown Phone Unavailable Care Team Providers Care [employer] Supervisor Name Role Phone Jake Prabhakar MD PCP Kristi Charlton Unavailable Eliceo Parker MD 21 Encounter Details Care Team Description Date Type Department 11/07/2018 [facility] [address] [address] Social History Date Tobacco Use Types Packs/Day Years Used Never Smoker Smokeless Tobacco: Never Used Drinks/Week oz/Week Comments Alcohol Use No Sex Assigned at Date Recorded Not on file Industry Job Start Date Occupation Not on file Not on file Not on file Travel End Travel History Travel Start No recent travel history available. documented as of this encounter Medications at Time of Discharge Start Date End Date Medication Sig Dispensed Refills acetaminophen (TYLENOL) Take 500 mg 0 500 mg tablet by mouth every 6 hours as needed for Pain. Max of 4,000 mg of acetaminophen in 24 hours. 11/05/2012 digoxin (LANOXIN) 125 mcg Take 1 Tab by 30 Tab 11 tabletIndications: mouth daily. 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 isosorbide mononitrate SR Take 15 mg by 0 (IMDUR) 30 mg tablet mouth every morning. levothyroxine (SYNTHROID) Take 100 mcg 0 100 mcg tablet by mouth daily. loratadine (CLARITIN) 10 Take 10 mg by 0 mg tablet mouth daily. meclizine (ANTIVERT) 25 Take 25 mg by 0 mg tablet mouth every 8 hours as needed. For vertigo metOLazone (ZAROXOLYN) Take 2.5 mg 0 2.5 mg tablet by mouth as directed. Mon, Fri and as needed mexiletine (MEXITIL) 150 Take 150 mg 0 mg capsule by mouth every 12 hours. nitroglycerin (NITROSTAT) Place 0.4 mg 0 0.4 mg tablet under tongue every 5 minutes as needed. pantoprazole DR Take 40 mg by 0 (PROTONIX) 40 mg tablet mouth daily. 09/29/2014 potassium chloride SR Take 1 Tab by 90 Cap 0 (K-DUR) 10 mEq tablet mouth twice daily. rOPINIRole (REQUIP) 0.5 Take 0.5 mg 0 mg tablet by mouth twice daily. sacubitril/valsartan Take 1 tablet 0 (ENTRESTO) 24/26 mg by mouth tablet twice daily. warfarin (COUMADIN) 2 mg Take 4 mg by 0 tablet mouth daily. Or as directed per your physician 12/25/2018 guaiFENesin LA (MUCINEX) Take 600 mg 0 600 mg tablet by mouth twice daily. 12/25/2018 metoprolol XL (TOPROL XL) Take 50 mg by 0 50 mg extended release mouth daily. tablet 12/25/2018 traMADol (ULTRAM) 50 mg Take 50 mg by 0 tablet mouth every 6 hours as needed for Pain. documented as of this encounter Plan of Treatment Not on filedocumented as of this encounter Procedures Comments Procedure Name Priority Date/Time Associated Diagnosis US ECHO EXTERNAL IMAGING Routine 11/07/2018 Diagnosis unknown 10:35 AM VAMP STRAP IRONER documented in this encounter Results * US ECHO EXTERNAL IMAGING (11/07/2018 10:35 AM VAMP STRAP IRONER) Specimen Narrative Performed At This order has been auto finalized and does not contain a result. documented in this encounter Visit Diagnoses Diagnosis Diagnosis unknown Other unknown and unspecified cause of morbidity or mortality documented in this encounter
[2019-04-07 16:20] VITALS: BP 115/55
[2019-04-07] MEDS ORDERED: FUROSEMIDE 40 MG/4 ML INJ (LASIX) IVP NR (16:58)
[2019-04-07 17:41] LABS: HEMOGLOBIN 9.2 G/DL (11.5-16.0); MEAN PLATELET VOLUME 10.3 FL (7.4-10.4); RED CELL DISTRIBUTION WIDTH 15.2 % (10.0-14.5); WHITE BLOOD COUNT 4.4 10^3/uL (4.3-11.0)
[2019-04-07 17:49] LABS: INR 2.1 (0.8-1.4); PROTHROMBIN TIME PATIENT 24.9 SEC (12.2-14.7)
--- NOTE | 2019-04-07 17:55 | NUR ---
KATHY ELLIS admitted to room 427-1, with an admitting diagnosis of CHF, on 04/07/19 from DIRECT ADMIT FROM DR SHUKLA'S OFFICEE via W/C, accompanied by SON AND GRANDDAUGHTER.KATHY ELLIS introduced to surroundings, call light, bed controls, phone, TV, temperature control, lights, meal times, smoking policy, visitor policy, side rail policy, bathrooms and showers. Patient Rights given to patient in the handbook. KATHY ELLIS verbalizes understanding that [facility] is not responsible for the loss or damage to any personal effects or valuables that are kept in the patients posession during their hospitalization. The following Patient Care Plans were discussed with the PT : Discharge Planning, IMP GAS EXCH, INEFF BREATHING PATTERN, FL VOL EXCESS, ACT INTL, AND ANXIETY. KATHY ELLIS verbalizes understanding of Interdisciplinary Patient Education. Patient and/or family were informed about the Rapid Response Team and its purpose. NOTE THAT PT'S SON WILL GO HOME AND GET PT'S HOME MEDS AND THE OINTMENT TO APPLY TO DSG CHANGE TO R ANKLE QOD -- NOTE THAT DSG CHANGE WAS DONE TODAY IN WOUND CARE BY CARRIE
[2019-04-07 18:03] LABS: ALBUMIN 3.6 GM/DL (3.2-4.5); BILIRUBIN,TOTAL 0.8 MG/DL (0.1-1.0); CALCIUM 9.5 MG/DL (8.5-10.1); CREATININE SERUM 1.3 MG/DL (0.60-1.30); MAGNESIUM 1.8 MG/DL (1.8-2.4); POTASSIUM 3.9 MMOL/L (3.6-5.0); TOTAL PROTEIN 7.8 GM/DL (6.4-8.2)
--- NOTE | 2019-04-07 18:11 | NUR ---
PT VOICED HER DSG CHANGE TO R INNER ANKLE HEALING ULCER IS DONE QOD AND THAT CARRIE DOWN IN WOUND CARE OUT PT DID IT TODAY -- WOUND IS CLEANSED AND XEROFORM CUT TO SIZE OF WOUND AND 4X4S AND GAUZE DSG -- THEN THELMA WRAPPED -- PT HAS HER SUPPLIES IN THE ROOM
[2019-04-07] MEDS ORDERED: SACU1TAB PO (18:25)
--- NOTE | 2019-04-07 18:47 | NUR ---
DR SHUKLA WAS CALLED AND THIS RN LEFT MESSAGE THAT HOME MEDS HAVE BEEN REVIEWED BY THIS RN -
--- NOTE | 2019-04-07 18:56 | Diagnostic Imaging Report ---
INDICATION: CHF. EXAMINATION: Chest dated 04/07/2019. COMPARISON: 03/30/2019. FINDINGS: A single frontal view of the chest demonstrates cardiomegaly, pulmonary vascular congestion, and diffuse increased interstitial changes throughout both lungs worsened since the previous. Airspace opacities also noted in the mid and lower lungs left worse than right. There are bilateral pleural effusions left greater than right. Left-sided pacemaker and sternotomy wires stable. IMPRESSION: 1. Worsening pulmonary edema. Bilateral effusions and possible infiltrates also noted. Dictated by: Dictated on workstation # [id number]
[2019-04-07] MEDS ORDERED: MECLIZINE 25 MG (ANTIVERT) TAB PO PRN ×2 (19:00→19:45)
[2019-04-07] MEDS ORDERED: warFARin 2 MG (COUMADIN) TAB PO SCH (19:00)
[2019-04-07] MEDS ORDERED: PATIENT MAY USE OWN MEDS, ALL MC SCH (19:30)
[2019-04-07 20:00] VITALS: BP 101/51
[2019-04-07] MEDS ORDERED: RT-ADVAIR HFA 115/21 MCG PER PUFF IH SCH (20:00)
[2019-04-07] MEDS: warFARin 2 MG (COUMADIN) TAB PO SCH (20:01)
[2019-04-07] MEDS: MEXILETINE 150 MG (MEXITIL) CAPSULE PO SCH (20:02)
[2019-04-07] MEDS: SACUBITRIL/VALSARTAN 24/26 MG (ENTRESTO) TABLET PO SCH (20:03)
[2019-04-07] MEDS: KCL 10 MEQ TAB (MICRO K) PO SCH (20:03)
[2019-04-07] MEDS: ROPINIROLE 0.5MG TABLET PO SCH (20:04)
[2019-04-07] MEDS: RT-ADVAIR HFA 115/21 MCG PER PUFF IH SCH (20:38)
[2019-04-08] VITALS (7 sets, daily range): BP systolic 99–117; BP diastolic 47–65
[2019-04-08 06:51] LABS: INR 2.1 (0.8-1.4); PROTHROMBIN TIME PATIENT 24.6 SEC (12.2-14.7)
[2019-04-08 07:01] LABS: CALCIUM 9.2 MG/DL (8.5-10.1); CREATININE SERUM 1.32 MG/DL (0.60-1.30); MAGNESIUM 1.7 MG/DL (1.8-2.4); POTASSIUM 3.7 MMOL/L (3.6-5.0)
[2019-04-08] MEDS: RT-ADVAIR HFA 115/21 MCG PER PUFF IH SCH (07:41)
[2019-04-08] MEDS: FUROSEMIDE 40 MG/4 ML INJ (LASIX) IVP SCH ×2 (08:29→16:54)
[2019-04-08] MEDS: LORATADINE (CLARITIN) 10 MG TAB PO SCH (08:30)
[2019-04-08] MEDS: SACUBITRIL/VALSARTAN 24/26 MG (ENTRESTO) TABLET PO SCH ×2 (08:31→20:54)
[2019-04-08] MEDS: ISOSORBIDE MONONITRATE 30 MG (IMDUR) TAB PO SCH (08:32)
[2019-04-08] MEDS: KCL 10 MEQ TAB (MICRO K) PO SCH ×2 (08:33→20:54)
[2019-04-08] MEDS: DIGOXIN 0.125 MG (LANOXIN) TAB PO SCH (08:34)
[2019-04-08] MEDS: MEXILETINE 150 MG (MEXITIL) CAPSULE PO SCH ×2 (08:35→20:55)
[2019-04-08] MEDS: ROPINIROLE 0.5MG TABLET PO SCH ×3 (08:36→20:56)
[2019-04-08] MEDS: PANTOPRAZOLE 40 MG (PROTONIX) TAB PO SCH (08:37)
[2019-04-08] MEDS: LEVOTHYROXINE 100 MCG (LEVOTHROID) TAB PO SCH (08:37)
--- NOTE | 2019-04-08 09:40 | Cardiology History & Physical ---
HPI-Cardiology Cardiology Consultation Date of Consultation 04/08/19 Date of Admission Time Seen by Provider: 09:35 Indication: shortness of breath HPI 83 years old lady with history of aortic valve replacement, severe mitral valve stenosis, seen in my office yesterday, was having increasing shortness of breath. Using oxygen continuously, tried to titrate up her Lasix at home wi thout success and improvement. Discussed the management plan with her and decided to admit her, she was given 80 mg of Lasix last night, still having shortness of breath at this point. Denied any chest pain. Denied any palpitation. No syncope. PMH-Cardiology Immunizations Up To Date Tetanus Booster (DTap): Unknown Date of Pneumonia Vaccine: May 31, 2015 Date of Influenza Vaccine: Jul 04, 2017 Seasonal Allergies Seasonal Allergies: No Surgeries Yes (pacemaker/defib, artifical aortic valve, R hip) Eye Surgery, Gall Bladder, CABG, Section, Valve Replacement, Defibrillator, Pacemaker Respiratory Yes (WEARS O2 AT 3L/NC) Cardiovascular Yes (CHF) Hypertension, Congestive Heart Failure, Coronary Artery Disease Neurological Yes Vertigo Reproductive System Hx Reproductive Disorders: No Sexually Transmitted Disease: No HIV/AIDS: No Genitourinary No Gastrointestinal No Gall Bladder Disease Musculoskeletal No Arthritis Endocrine Yes Hypothyroidsim HEENT Yes Cataract Loss of Vision: Denies Hearing Impairment: Denies Cancer No Did You Recieve Any Treatments: No Psychosocial No Integumentary Yes (venous stasis ulcers) Blood Transfusions Yes (anticoagulated) Adverse Rxn to Transfusion: No Other PMHx Past medical history will be discussed below Social History Patient Social History Marrital Status: Employed/Student: employed Alcohol Use: Denies Use Recreational Drug Use: No Smoking: Never smoker Dip or chew tobacco?: No Recent Foreign Travel: No Contact w/other who traveled: No Recent Infectious Disease Expo: No Family Hx Significant Family History: No Pertinent Family Hx Family History: Family history: Diabetes mellitus 19 MOTHER Heart disease 19 MOTHER History of - respiratory disease 19 FATHER (PNEUMONIA- IN HIS 20'S) Myocardial infarction 19 MOTHER No Family History of: Abdominal aortic aneurysm Rhea's disease Alcoholism Aphasia Cancer Cancer of colon Cataract Chest pain Congenital heart disease Congestive heart failure Cystic fibrosis Dementia Dysphagia Family history: Allergy Family history: Alzheimer's disease Family history: Arthritis Family history: Asthma Family history: Breast disease Family history: Cardiovascular disease Family history: Coronary thrombosis Family history: Gastrointestinal disease Family history: Glaucoma Family history: Hypertension Family history: Osteoporosis Family history: Thyroid disorder Headache Hearing loss Hereditary disease History of - anemia History of - disorder History of drug abuse Human immunodeficiency virus (HIV) seropositivity Hypercholesterolemia Infertile Kidney disease Parkinson's disease Prostate cancer Psychotic disorder Seizure disorder Stroke Tuberculosis Visual impairment ROS-Cardiology Review of Systems General: No Chills, No Night Sweats; Fatigue, Malaise; No Appetite HEENT: No Head Aches, No Visual Changes, No Eye Pain, No Ear Pain, No Dysphasia, No Sinus Congestion, No Post Nasal Drip, No Sore Throat Pulmonary: Dyspnea, Cough; No Pleuritic Chest Pain Cardiovascular: Edema; No: Chest Pain, Palpitations, Orthopnea, Paroxysmal Noc. Dyspnea, Lt Headedness Gastrointestinal: No: Nausea, Vomiting, Abdominal Pain, Diarrhea, Constipation, Melena, Hematochezia Genitourinary: No Dysuria, No Frequency, No Incontinence, No Hematuria, No Retention Musculoskeletal: No: neck pain, shoulder pain, arm pain, back pain, hand pain, leg pain, foot pain Neurological: No: Weakness, Numbness, Incoordination, Change in speech, Confusion, Seizures Home Medications & Allergies Allergies: Coded Allergies: NKANo Known Allergies (Verified Allergy, Unknown, 11/14/05) Home Medication List Reviewed: Yes Exam-Cardiology Vital Signs Vital Signs Date Time Temp Pulse Resp B/P (MAP) Pulse Ox O2 Delivery O2 Flow Rate FiO2 04/08/19 08:55 98.4 90 20 105/56 (72) 96 High Flow N/C 3.00 Exam General Appearance: Alert, Oriented X3, Cooperative, No Acute Distress HEENT: Atraumatic, PERRLA Respiratory: Normal Air Movement, Other (bilateral rhonchi) Cardiovascular: Regular Rate, Other (metallic click, systolic murmur at the left sternal border) Abdominal: Normal Bowel Sounds, Soft, No Tenderness, No Hepatosplenomegaly, No Masses Extremities: No Clubbing, No Cyanosis, No Edema, Normal Pulses, No Tenderness/Swelling Skin: No Rashes, No Breakdown, No Significant Lesion Neuro: Normal Gait, Normal Speech, Strength at 5/5 X4 Ext, Normal Tone, Sensation Intact Psych/Mental Status: Mental Status NL, Mood NL Results Labs Labs Laboratory Tests 04/07/19 17:34: White Blood Count 4.4, Red Blood Count 2.85L, Hemoglobin 9.2L, Hematocrit 30L, Mean Corpuscular Volume 106H, Mean Corpuscular Hemoglobin 32, Mean Corpuscular Hemoglobin Concent 30L, Red Cell Distribution Width 15.2H, Platelet Count 164, Mean Platelet Volume 10.3, Prothrombin Time 24.9H, INR Comment 2.1H, Activated Partial Thromboplast Time 42H, Sodium Level 141, Potassium Level 3.9, Chloride Level 97L, Carbon Dioxide Level 34H, Anion Gap 10, Blood Urea Nitrogen 21H, Creatinine 1.30, Estimat Glomerular Filtration Rate 39, BUN/Creatinine Ratio 16, Glucose Level 87, Calcium Level 9.5, Corrected Calcium 9.8, Magnesium Level 1.8, Total Bilirubin 0.8, Aspartate Amino Transf (AST/SGOT) 15, Alanine Aminotransferase (ALT/SGPT) 9, Alkaline Phosphatase 62, Troponin I 0.048H, B-Typ e Natriuretic Peptide 674.9H, Total Protein 7.8, Albumin 3.6, Thyroid Stimulating Hormone (TSH) 2.39 04/08/19 06:08: Prothrombin Time 24.6H, INR Comment 2.1H, Sodium Level 141, Potassium Level 3.7, Chloride Level 99, Carbon Dioxide Level 32, Anion Gap 10, Blood Urea Nitrogen 23H, Creatinine 1.32H, Estimat Glomerular Filtration Rate 39, BUN/Creatinine Ratio 17, Glucose Level 78, Calcium Level 9.2, Magnesium Level 1.7L, Triglycerides Level 48, Cholesterol Level 113, LDL Cholesterol Direct 74, VLDL Cholesterol 10, HDL Cholesterol 37L A/P-Cardiology Admission Diagnosis Shortness of breath Congestive heart failure, acute on chronic left ventricular systolic dysfunction Permanent atrial fibrillation Severe mitral stenosis Admission Status: Observation Assessment/Plan Congestive heart failure, acute on chronic left ventricular systolic dysfunction, status post 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 Patient is in decompensated heart failure, started on aggressive diuresis. Continue to monitor Chest pain, nonspecific etiology, reporting improvement, no further episodes were reported. Continue to monitor History of aortic valve replacement in 1998 with metallic valve on Coumadin therapy with therapeutic INR, monitored by Dr. Prabhakar. Last echo was done in May 2018 showing ejection fraction 40-45 percent, prominent right ventricle and biatrial enlargement, severe mitral valve stenosis, valve area 1.04 cm, gradient of 61 mmHg at peak and 38 mmHg mean. Mechanical prosthesis in the aortic valve functioning normally. Estimated pulmonary artery pressure of 55 mmHg. patient was hospitalized in [place] for congestive heart failure, responded to diuretics, recommendation is to refer her to for reevaluation for possible mitral valve surgery Paroxysmal atrial fibrillation, currently permanent atrial fibrillation, had underlying sick sinus syndrome and pacemaker, last interrogation was done on October 03, 2018 showing good sensing and capture activity. No changes were made. Continue to monitor [id number] Score of 6, yearly risk of stroke without oral anticoagulation is 9.8 percent, maintained on Coumadin, monitored by Dr. Prabhakar Peripheral vascular disease, patient has venous insufficiency on the right side that required ablation,peripheral angiogram May 2017, intervention to the anterior tibial artery, the wound has healed then developed a new ulcer after a trauma. Did balloon angioplasty to the right anterior tibial artery proximal portion has significant improvement the distal portion is occluded and did not improve, the posterior tibial artery and peroneal arteries were occluded with no collaterals in that area. The right SFA has multiple segment of moderate to severe stenosis, balloon angioplasty to the mid SFA with good results. Abdominal aorta has moderate disease, the left SFA has mild to moderate disease down to the trifurcation. Patient has nonhealing wounds to right ankle 2 weeks, Has abnormal LINDA, planning for peripheral angiogram, left groin access for further evaluation. Severe mitral valve stenosis rheumatic valve, severe mitral regurgitation with severe pulmonary hypertension, estimated pulmonary artery pressure of 55 mmHg with severely dilated both atrium and prominent right ventricle with dilated IVC. discussed with Dr. Page, he recommended medical therapy at this time considering her to be high risk for morbidity and mortality if she undergoes valve surgery. She is not a candidate for mitral clip secondary to her mitral stenosis Was referred once again to Dr. Davila in January 2019 for evaluation for possible TMVR. Decided to continue with conservative management at this time. If patient becomes more symptomatic, reconsider for TMVR. Coronary artery disease, small vessel disease, nonobstructive disease, the prosthetic valve was functioning normally. Pulmonary artery pressure was 50/26, pulmonary capillary wedge pressure 35, right ventricular pressure 53/17. cardiac catheterization was done in September 2014. Stress test done in December 2016 showing no ischemia or infarction, EF 41 percent, continue to monitor Carotid stenosis, continue to monitor, followed by heart and vascular care. 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 followed and monitored by heart and vascular care. Renal insufficiency-I will evaluate BM P today Hypertension, good control at this time. Continue to monitor Hyperlipidemia, continue on current medication monitor lipids Right hip fracture in May 2018 status post surgical repair, recovered well. Clinical Quality Measures DVT/VTE Risk/Contraindication: Risk Factor Score Per Nursin RFS Level Per Nursing on Admit: 4+=Very High PRANEETH SHUKLA MD Apr 08, 2019 09:40
[2019-04-08] MEDS ORDERED: METOLAZONE 5 MG (ZAROXOLYN) TAB PO NR (09:45)
--- NOTE | 2019-04-08 13:53 | NUR ---
Is a patient of [facility]
--- NOTE | 2019-04-08 15:19 | NUR ---
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
[2019-04-08] MEDS: warFARin 2 MG (COUMADIN) TAB PO SCH (20:53)
[2019-04-09] MEDS: RT-ADVAIR HFA 115/21 MCG PER PUFF IH SCH ×2 (01:44→07:27)
[2019-04-09 04:07] VITALS: BP 116/55
[2019-04-09] MEDS: FUROSEMIDE 40 MG/4 ML INJ (LASIX) IVP SCH (05:57)
[2019-04-09 06:30] LABS: INR 2.3 (0.8-1.4); PROTHROMBIN TIME PATIENT 26.1 SEC (12.2-14.7)
[2019-04-09 06:35] LABS: CALCIUM 9.5 MG/DL (8.5-10.1); CREATININE SERUM 1.37 MG/DL (0.60-1.30); MAGNESIUM 1.9 MG/DL (1.8-2.4); POTASSIUM 3.8 MMOL/L (3.6-5.0)
[2019-04-09 08:00] VITALS: BP 138/62
[2019-04-09] MEDS: PANTOPRAZOLE 40 MG (PROTONIX) TAB PO SCH (08:08)
[2019-04-09] MEDS: ISOSORBIDE MONONITRATE 30 MG (IMDUR) TAB PO SCH (08:09)
[2019-04-09] MEDS: LEVOTHYROXINE 100 MCG (LEVOTHROID) TAB PO SCH (08:09)
[2019-04-09] MEDS: LORATADINE (CLARITIN) 10 MG TAB PO SCH (08:10)
[2019-04-09] MEDS: DIGOXIN 0.125 MG (LANOXIN) TAB PO SCH (08:11)
[2019-04-09] MEDS: ROPINIROLE 0.5MG TABLET PO SCH (08:12)
[2019-04-09] MEDS: KCL 10 MEQ TAB (MICRO K) PO SCH (08:13)
[2019-04-09] MEDS: MEXILETINE 150 MG (MEXITIL) CAPSULE PO SCH (08:13)
[2019-04-09] MEDS: SACUBITRIL/VALSARTAN 24/26 MG (ENTRESTO) TABLET PO SCH (08:14)
--- NOTE | 2019-04-09 10:51 | Cardiology Discharge Summary ---
Diagnosis/Chief Complaint Date of Admission Apr 08, 2019 at 13:22 Date of Discharge April 09, 2019 Admission Diagnosis Shortness of breath Congestive heart failure, acute on chronic left ventricular systolic dysfunction Permanent atrial fibrillation Severe mitral stenosis Discharge Diagnosis congestive heart failure, acute on chronic left ventricular systolic dysfunction, nonischemic cardiomyopathy Permanent atrial fibrillation Severe mitral stenosis Hypertension Chief Complaint/HPI Chief Complaint/HPI 83 years old lady with history of aortic valve replacement, severe mitral valve stenosis, seen in my office yesterday, was having increasing shortness of breath. Using oxygen continuously, tried to titrate up her Lasix at home without success and improvement. Discussed the management plan with her and decided to admit her, she was given 80 mg of Lasix last night, still having shortness of breath at this point. Denied any chest pain. Denied any palpitation. No syncope. Discharge Summary Hospital Course Was the Problem List Reviewed?: Yes Hospital Course Congestive heart failure, acute on chronic left ventricular systolic dysfunction, status post implantation of [employer]-D-D in August 2012, last ec hocardiogram was done in [facility] in November 2018 showing ejection fraction 45 percent, last echo was done on March 26, 2019 showing ejection fraction 35-40 percent, severely dilated left atrium, severe mitral stenosis with mitral valve area 0.8 cm, systolic PA pressure 63 mmHg. responded to aggressive diuresis, feeling better today. Ready for discharge. Chest pain, nonspecific etiology, reporting improvement, no further episodes were reported. Continue to monitor History of aortic valve replacement in 1998 with metallic valve on Coumadin therapy with therapeutic INR, monitored by Dr. Prabhakar. Last echo was done in May 2018 showing ejection fraction 40-45 percent, prominent right ventricle and biatrial enlargement, severe mitral valve stenosis, valve area 1.04 cm, gradient of 61 mmHg at peak and 38 mmHg mean. Mechanical prosthesis in the aortic valve functioning normally. Estimated pulmonary artery pressure of 55 mmHg. patient was hospitalized in [place] for congestive heart failure, responded to diuretics, recommendation is to refer her to for reevaluation for possible mitral valve surgery Paroxysmal atrial fibrillation, currently permanent atrial fibrillation, had underlying sick sinus syndrome and pacemaker, last interrogation was done on October 03, 2018 showing good sensing and capture activity. No changes were made. Continue to monitor [id number] Score of 6, yearly risk of stroke without oral anticoagulation is 9.8 percent, maintained on Coumadin, monitored by Dr. Prabhakar Peripheral vascular disease, patient has venous insufficiency on the right side that required ablation,peripheral angiogram May 2017, intervention to the anterior tibial artery, the wound has healed then developed a new ulcer after a trauma. Did balloon angioplasty to the right anterior tibial artery proximal portion has significant improvement the distal portion is occluded and did not improve, the posterior tibial artery and peroneal arteries were occluded with no collaterals in that area. The right SFA has multiple segment of moderate to severe stenosis, balloon angioplasty to the mid SFA with good results. Abdominal aorta has moderate disease, the left SFA has mild to moderate disease down to the trifurcation. Patient has nonhealing wounds to right ankle 2 weeks, Has abnormal LINDA, planning for peripheral angiogram, left groin access for further evaluation. Severe mitral valve stenosis rheumatic valve, severe mitral regurgitation with severe pulmonary hypertension, estimated pulmonary artery pressure of 55 mmHg with severely dilated both atrium and prominent right ventricle with dilated IVC. discussed with Dr. Page, he recommended medical therapy at this time considering her to be high risk for morbidity and mortality if she undergoes valve surgery. She is not a candidate for mitral clip secondary to her mitral stenosis Was referred once again to Dr. Davila in January 2019 for evaluation for possible TMVR. Decided to continue with conservative management at this time. If patient becomes more symptomatic, reconsider for TMVR. Coronary artery disease, small vessel disease, nonobstructive disease, the prosthetic valve was functioning normally. Pulmonary artery pressure was 50/26, pulmonary capillary wedge pressure 35, right ventricular pressure 53/17. cardiac catheterization was done in September 2014. Stress test done in December 2016 showing no ischemia or infarction, EF 41 percent, continue to monitor Carotid stenosis, continue to monitor, followed by heart and vascular care. 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 followed and monitored by heart and vascular care. Renal insufficiency-I will evaluate BM P today Hypertension, good control at this time. Continue to monitor Hyperlipidemia, continue on current medication monitor lipids Right hip fracture in May 2018 status post surgical repair, recovered well. Labs Laboratory Tests 04/07/19 17:34: Red Blood Count 2.85L, Hemoglobin 9.2L, Hematocrit 30L, Mean Corpuscular Volume 106H, Mean Corpuscular Hemoglobin Concent 30L, Red Cell Distribution Width 15.2H , Prothrombin Time 24.9H, INR Comment 2.1H, Activated Partial Thromboplast Time 42H, Chloride Level 97L, Carbon Dioxide Level 34H, Blood Urea Nitrogen 21H, Troponin I 0.048H, B-Type Natriuretic Peptide 674.9H 04/08/19 06:08: Prothrombin Time 24.6H, INR Comment 2.1H, Blood Urea Nitrogen 23H, Creatinine 1.32H, Magnesium Level 1.7L, HDL Cholesterol 37L 04/09/19 06:05: Prothrombin Time 26.1H, INR Comment 2.3H, Chloride Level 96L, Blood Urea Nitrogen 24H, Creatinine 1.37H Procedures None. Discharge Physical Examination Allergies: Coded Allergies: NKANo Known Allergies (Verified Allergy, Unknown, 11/14/05) Vitals & I&Os Vital Signs Date Time Temp Pulse Resp B/P (MAP) Pulse Ox O2 Delivery O2 Flow Rate FiO2 04/09/19 08:00 98.5 85 20 138/62 (87) 98 High Flow N/C 3.00 General Appearance: Alert, Oriented X3, Cooperative, No Acute Distress HEENT: Atraumatic, PERRLA Respiratory: Normal Air Movement, Other (right sided rhonchi) Cardiovascular: Regular Rate, Rubs, Other (metallic click of prosthetic valve) Abdominal: Normal Bowel Sounds, Soft, No Tenderness, No Hepatosplenomegaly, No Masses Extremities: No Clubbing, No Cyanosis, Normal Pulses, No Tenderness/Swelling, Other Skin: No Rashes, No Breakdown, No Significant Lesion Neuro: Normal Gait, Normal Speech, Strength at 5/5 X4 Ext, Normal Tone, Sensation Intact, Cranial Nerves 3-12 NL, Reflexes 2+ Psych/Mental Status: Mental Status NL, Mood NL Discharge Home Medications Reviewed and agree with Discharge Medication list on patient's Discharge Instruction sheet Instructions to Patient/Family Please see electronic discharge instructions given to patient. Clinical Quality Measures Admission Status Admission Status: Inpatient Order (span 2 midnights) Reason for Inpatient Admission: congestive heart failure, acute on chronic left ventricular systolic dysfunction Severe mitral stenosis Hypertension Shortness of breath AMI/AHF: Ejection Fraction: <40 (THELMA/ARB Indicated) DVT/VTE Risk/Contraindication: Risk Factor Score Per Nursin RFS Level Per Nursing on Admit: 4+=Very High PRANEETH SHUKLA MD Apr 09, 2019 10:51
--- NOTE | 2019-04-09 10:58 | NUR ---
provided prayer and Communion.
[2019-04-09 11:51] VITALS: BP 138/62
--- NOTE | 2019-04-11 14:45 | Physician Query Clarification ---
PQ-Further Specificity Admission/Discharge Admission Date: Apr 08, 2019 at 13:22 Discharge Date: Apr 09, 2019 at 11:52 The medical record reflects the following clinical scenario: History/Risk Factors: Venous status ulcer, PVD, HTN w/CHF, Cardiomyopathy, Permanent Atrial Fibrillation Clinical Findings: non healing wound rt ankle x 2 weeks Treatment: Dressing changes by wound care 04/07, PT'S SON WILL GO HOME AND GET PT'S OINTMENT THEY ARE PUT ON R INNER ANKLE Question: Can you further specify nonhealing wound rt ankle per the clinical indicators above? Please document a response in the Progress Notes or Discharge Summary. 1. ulcer rt ankle 2. traumatic non-healing wound rt ankle 3. Other, with explanation of the clinical findings. 4. Clinically undetermined, no explanation for the clinical findings. PHYSICIAN RESPONSE Can you specify per above: 1 Explanation/Clinical Findings non healing ischemic foot ulcer secondary to peripheral arterial disease Please remember a lack of response to the above will prompt a phone page by CDI/Coding staff. In responding to this query, please exercise your independent professional judgment. The purpose of this communication is to more accurately reflect the complexity of your patients condition. The fact that a question is asked does not imply that any particular answer is desired or expected. Thank you for your timely response to this clarification. Requestors name: Erik THIS PHYSICIAN QUERY FORM IS A PERMANENT PART OF THE MEDICAL RECORD ERIK ROLLE Apr 11, 2019 14:45 PRANEETH SHUKLA MD Apr 12, 2019 07:44
[2019-04-12] MEDS ORDERED: warFARin 2 MG (COUMADIN) TAB PO SCH (19:00)
== END 2019-04-09 11:52 | disposition home health service (06) | DRG 292 ==
LOC: UNDOADMOB 16:04 → 4TH 16:04 → INTOOBSV 04-08 13:22 → OBSVTOIN 04-08 13:22 → UNDODISIN 04-09 11:52
PROVIDERS: ADMIT Internal Medicine Cardiovascular Disease; ATTEND Internal Medicine Cardiovascular Disease
DX: I11.0 Hypertensive heart disease with heart failure (principal); I50.23 Acute on chronic systolic (congestive) heart failure; I42.9 Cardiomyopathy, unspecified; I05.2 Rheumatic mitral stenosis with insufficiency; I48.2 Chronic atrial fibrillation; L97.319 Non-pressure chronic ulcer of right ankle with unspecified severity; I25.10 Atherosclerotic heart disease of native coronary artery without angina pectoris; I70.233 Atherosclerosis of native arteries of right leg with ulceration of ankle; I87.2 Venous insufficiency (chronic) (peripheral); I49.5 Sick sinus syndrome; E03.9 Hypothyroidism, unspecified; I27.20 Pulmonary hypertension, unspecified; E78.5 Hyperlipidemia, unspecified; I70.0 Atherosclerosis of aorta; Z95.810 Presence of automatic (implantable) cardiac defibrillator; Z95.1 Presence of aortocoronary bypass graft; Z99.81 Dependence on supplemental oxygen; Z95.2 Presence of prosthetic heart valve
CPT/HCPCS: 36415; 71045; 80048; 80053; 80061; 83735; 83880; 84443; 84484; 85027; 85610; 85730; 94640; 94760; 99211; G0378

== ENCOUNTER → 2019-04-17 | Outpatient (CLI) | payer MEDICARE | LOC: WOUNDCARE 10:05 | PROVIDERS: ATTEND Nurse Practitioner | DX: I70.261 Atherosclerosis of native arteries of extremities with gangrene, right leg (principal); L97.312 Non-pressure chronic ulcer of right ankle with fat layer exposed | CPT/HCPCS: 99213 ==

== ENCOUNTER → 2019-04-29 | Outpatient (CLI) | payer MEDICARE | LOC: WOUNDCARE 09:00 | PROVIDERS: ATTEND Nurse Practitioner | DX: I70.261 Atherosclerosis of native arteries of extremities with gangrene, right leg (principal); L97.312 Non-pressure chronic ulcer of right ankle with fat layer exposed | CPT/HCPCS: 99212 ==

== ENCOUNTER 2019-05-04 13:45 | Inpatient (IN) | payer MEDICARE | END 2019-05-06 11:25 | disposition home or self-care (01) | LOC: ER 13:45 → 4TH 15:30 ==

== ENCOUNTER → 2019-05-13 | Outpatient (CLI) | payer MEDICARE ==
[~2019-05-13] MED LIST changes: +ACET-93 PO
== END ==
LOC: WOUNDCARE 09:06
PROVIDERS: ATTEND Nurse Practitioner
DX: I70.261 Atherosclerosis of native arteries of extremities with gangrene, right leg (principal); L97.312 Non-pressure chronic ulcer of right ankle with fat layer exposed
CPT/HCPCS: 99213

== ENCOUNTER → 2019-05-20 | Outpatient (CLI) | payer MEDICARE | LOC: WOUNDCARE 08:50 | PROVIDERS: ATTEND Nurse Practitioner | DX: I70.261 Atherosclerosis of native arteries of extremities with gangrene, right leg (principal); L97.312 Non-pressure chronic ulcer of right ankle with fat layer exposed | CPT/HCPCS: 99213 ==

== ENCOUNTER → 2019-05-29 | Outpatient (CLI) | payer MEDICARE | LOC: WOUNDCARE 09:27 | PROVIDERS: ATTEND Surgery | DX: I70.261 Atherosclerosis of native arteries of extremities with gangrene, right leg (principal); L97.312 Non-pressure chronic ulcer of right ankle with fat layer exposed; L97.212 Non-pressure chronic ulcer of right calf with fat layer exposed; I87.331 Chronic venous hypertension (idiopathic) with ulcer and inflammation of right lower extremity | CPT/HCPCS: 99213 ==

== ENCOUNTER → 2019-06-05 | Outpatient (CLI) | payer MEDICARE | LOC: WOUNDCARE 09:31 | PROVIDERS: ATTEND Nurse Practitioner | DX: I70.233 Atherosclerosis of native arteries of right leg with ulceration of ankle (principal); L97.312 Non-pressure chronic ulcer of right ankle with fat layer exposed; L97.212 Non-pressure chronic ulcer of right calf with fat layer exposed; I87.331 Chronic venous hypertension (idiopathic) with ulcer and inflammation of right lower extremity; I96 Gangrene, not elsewhere classified | CPT/HCPCS: 99213 ==

== ENCOUNTER → 2019-06-19 | Outpatient (CLI) | payer MEDICARE | LOC: WOUNDCARE 09:27 | PROVIDERS: ATTEND Nurse Practitioner | DX: I70.261 Atherosclerosis of native arteries of extremities with gangrene, right leg (principal); I87.331 Chronic venous hypertension (idiopathic) with ulcer and inflammation of right lower extremity; L97.312 Non-pressure chronic ulcer of right ankle with fat layer exposed; L97.212 Non-pressure chronic ulcer of right calf with fat layer exposed | CPT/HCPCS: 99213 ==

== ENCOUNTER → 2019-06-26 | Outpatient (CLI) | payer MEDICARE | LOC: WOUNDCARE 09:24 | PROVIDERS: ATTEND Nurse Practitioner | DX: I70.261 Atherosclerosis of native arteries of extremities with gangrene, right leg (principal); L97.312 Non-pressure chronic ulcer of right ankle with fat layer exposed; L97.212 Non-pressure chronic ulcer of right calf with fat layer exposed; I87.331 Chronic venous hypertension (idiopathic) with ulcer and inflammation of right lower extremity | CPT/HCPCS: 99213 ==

== ENCOUNTER → 2019-07-15 | Outpatient (CLI) | payer MEDICARE | LOC: WOUNDCARE 09:15 | PROVIDERS: ATTEND Nurse Practitioner | DX: I70.233 Atherosclerosis of native arteries of right leg with ulceration of ankle (principal); L97.312 Non-pressure chronic ulcer of right ankle with fat layer exposed; L97.212 Non-pressure chronic ulcer of right calf with fat layer exposed; I87.331 Chronic venous hypertension (idiopathic) with ulcer and inflammation of right lower extremity | CPT/HCPCS: 99213 ==

== ENCOUNTER → 2019-07-24 | Outpatient (CLI) | payer MEDICARE | LOC: WOUNDCARE 09:31 | PROVIDERS: ATTEND Nurse Practitioner | DX: I70.233 Atherosclerosis of native arteries of right leg with ulceration of ankle (principal); L97.312 Non-pressure chronic ulcer of right ankle with fat layer exposed; L97.212 Non-pressure chronic ulcer of right calf with fat layer exposed; I87.331 Chronic venous hypertension (idiopathic) with ulcer and inflammation of right lower extremity; I96 Gangrene, not elsewhere classified | CPT/HCPCS: 99213 ==

== ENCOUNTER → 2019-08-07 | Outpatient (CLI) | payer MEDICARE ==
[~2019-08-07] MED LIST changes: +DIGO125T3 PO; +DOCU100C37 PO; +ENOX80DI7 SC; -METO-370 PO; -METO-387 PO; +METO50TA7 PO; +MTP25TSR PO; +OMEP-280 PO; -OMEP20CA13 PO; +POLY17PO31 PO; +PRED10TA22 PO; -SACU1TAB PO; +SACU1TAB2 PO; +SENN-141 PO; +TRAM-42 PO; -TRAM50TA2 PO; +TRM50T PO; +ZOLP5TAB PO
== END ==
LOC: WOUNDCARE 09:35
PROVIDERS: ATTEND Nurse Practitioner
DX: I70.233 Atherosclerosis of native arteries of right leg with ulceration of ankle (principal); L97.312 Non-pressure chronic ulcer of right ankle with fat layer exposed; L97.212 Non-pressure chronic ulcer of right calf with fat layer exposed; I87.331 Chronic venous hypertension (idiopathic) with ulcer and inflammation of right lower extremity; I96 Gangrene, not elsewhere classified
CPT/HCPCS: 99213

== ENCOUNTER → 2019-08-14 | Outpatient (CLI) | payer MEDICARE ==
[~2019-08-14] MED LIST changes: -DIGO125T3 PO; -DOCU100C37 PO; -ENOX80DI7 SC; +METO-370 PO; +METO-387 PO; -METO50TA7 PO; -MTP25TSR PO; -OMEP-280 PO; +OMEP20CA13 PO; -POLY17PO31 PO; -PRED10TA22 PO; +SACU1TAB PO; -SACU1TAB2 PO; -SENN-141 PO; +TRAM50TA2 PO; -TRM50T PO
== END ==
LOC: WOUNDCARE 10:05
PROVIDERS: ATTEND Nurse Practitioner
DX: I70.233 Atherosclerosis of native arteries of right leg with ulceration of ankle (principal); L97.312 Non-pressure chronic ulcer of right ankle with fat layer exposed; L97.212 Non-pressure chronic ulcer of right calf with fat layer exposed; I87.331 Chronic venous hypertension (idiopathic) with ulcer and inflammation of right lower extremity; I96 Gangrene, not elsewhere classified
CPT/HCPCS: 99213

== ENCOUNTER 2019-08-15 23:00 | Inpatient (IN) | payer MEDICARE ==
[~2019-08-15] VITALS: Ht 167.7 cm; Wt 65.9 kg
[~2019-08-15 23:00] MED LIST changes: -TRAM-42 PO; -ZOLP5TAB PO
--- NOTE | 2019-08-15 23:14 | ED Respiratory ---
General Stated Complaint: SOA Source: patient, EMS Exam Limitations: no limitations History of Present Illness Date Seen by Provider: Aug 15, 2019 Time Seen by Provider: 23:05 Initial Comments Patient presents to ER by EMS with chief complaint shortness of breath. She woke up this morning feeling poorly and has gotten worse ever since. She has a history of CHF with some increased swelling in her lower extremities with some chronic venous stasis ulcers. She had a fever of 101 per EMS. She has extensive heart disease and lung disease and his plan on 2 L by nasal cannula at baseline. She was in the mid 80s when EMS arrived so they bumped up to 5 L and this kept her in the mid 90s. She's not having any chest pain, nausea but she did have some nausea and vomiting earlier in the morning. She's having no belly pain diarrhea constipation. History of pneumonia. Allergies and Home Medications Allergies Coded Allergies: NKANo Known Allergies (Verified Allergy, Unknown, 11/14/05) Home Medications Acetaminophen 500 Mg Tablet, 500 MG PO Q8H PRN for PAIN-MILD, (Reported) Digoxin 125 Mcg Tablet, 125 MCG PO Q48H, (Reported) Fluticasone/Salmeterol 12 Gm Hfa.aer.ad, 1 PUFF IH BID@08,20 Prescribed by: VENANCIO ARREAGA on 04/01/19 1007 Furosemide 40 Mg Tablet, 40 MG PO BID, (Reported) Isosorbide Mononitrate 30 Mg Tab.er.24h, 15 MG PO DAILY, (Reported) TAKES 1/2 (30MG) TABLET Levothyroxine Sodium 100 Mcg Tablet, 100 MCG PO DAILY, (Reported) Loratadine 10 Mg Tablet, 10 MG PO DAILY, (Reported) Meclizine HCl 25 Mg Tablet, 25 MG PO TID PRN for DIZZINESS, (Reported) Metolazone 2.5 Mg Tablet, 2.5 MG PO MoFr PRN for FLUID RETENTION, (Reported) Metolazone 2.5 Mg Tablet, 2.5 MG PO DAILY PRN, (Reported) takes 2.5mg once daily sunday and sunday and as needed Metoprolol Succinate 25 Mg Tab.er.24h, 25 MG PO DAILY, (Reported) Mexiletine HCl 150 Mg Cap, 150 MG PO BID, (Reported) Nitroglycerin 0.4 Mg Tab.subl, 0.4 MG SL UD PRN for CHEST PAIN, (Reported) Pantoprazole Sodium 40 Mg Tablet.dr, 40 MG PO DAILY, (Reported) Potassium Chloride 10 Meq Capsule.er, 10 MEQ PO BID, (Reported) Ropinirole HCl 0.5 Mg Tablet, 0.5 MG PO TID, (Reported) Sacubitril/Valsartan 1 Each Tablet, 1 TAB PO BID, (Reported) Tramadol HCl 50 Mg Tablet, 50 MG PO Q6H PRN for PAIN-MODERATE, (Reported) Warfarin Sodium 2 Mg Tablet, 2 MG PO MoWe, (Reported) TAKES 2MG ON SUN & SUN, THEN 4 MG ALL OTHER DAYS (SUN,,,SUN,SAT) Warfarin Sodium 2 Mg Tablet, 4 MG PO SuTuThFrSa, (Reported) TAKES 2MG ON SUN & SUN, THEN 4 MG ALL OTHER DAYS (SUN,,,SUN,SAT) Zolpidem Tartrate 5 Mg Tablet, 5 MG PO HS PRN for SLEEP, (Reported) Patient Home Medication List Home Medication List Reviewed: Yes Review of Systems Review of Systems Constitutional: chills, fever, malaise, weakness EENTM: No ear discharge, No ear pain, No eye pain Respiratory: cough, short of breath; No wheezing Cardiovascular: No chest pain, No edema, No Hx of Intervention, No palpitations Gastrointestinal: No abdominal pain, No constipation, No diarrhea, No nausea, No vomiting Genitourinary: No discharge, No dysuria Musculoskeletal: No back pain, No joint pain Psychiatric/Neurological: Denies Anxiety, Denies Depressed Past Ehelwyc-Mujmfp-Ekcatf Hx Patient Social History Alcohol Use: Denies Use Smoking Status: Never a Smoker 2nd Hand Smoke Exposure: Yes Recent Foreign Travel: No Contact w/Someone Who Travel: No Recent Hopitalizations: No Immunizations Up To Date Tetanus Booster (TDap): Unknown PED Vaccines UTD: Yes Date of Pneumonia Vaccine: May 31, 2015 Date of Influenza Vaccine: Jul 04, 2017 Seasonal Allergies Seasonal Allergies: No Past Medical History Surgeries: Yes (pacemaker/defib, artifical aortic valve, R hip) Cardiac, Section, Gallbladder, Orthopedic, Valve Replacement Respiratory: Yes (WEARS O2 AT 3L/NC) Pneumonia Currently Using CPAP: No Currently Using BIPAP: No Cardiac: Yes (CHF) Cardiomyopathy, Coronary Artery Disease, Hypertension, Valvular Heart Disease Neurological: Yes Vertigo Reproductive Disorders: No Sexually Transmitted Disease: No HIV/AIDS: No Genitourinary: No Gastrointestinal: No Gall Bladder Disease Musculoskeletal: No Arthritis Endocrine: Yes Hypothyroidsim HEENT: Yes Cataract Loss of Vision: Denies Hearing Impairment: Denies Cancer: No Did You Recieve Any Treatments: No Psychosocial: No Integumentary: Yes (venous stasis ulcers) Blood Disorders: Yes (anticoagulated) Adverse Reaction/Blood Tranf: No Family Medical History Family history: Diabetes mellitus 19 MOTHER Heart disease 19 MOTHER History of - respiratory disease 19 FATHER (PNEUMONIA- IN HIS 20'S) Myocardial infarction 19 MOTHER No Family History of: Abdominal aortic aneurysm Maynor's disease Alcoholism Aphasia Cancer Cancer of colon Cataract Chest pain Congenital heart disease Congestive heart failure Cystic fibrosis Dementia Dysphagia Family history: Allergy Family history: Alzheimer's disease Family history: Arthritis Family history: Asthma Family history: Breast disease Family history: Cardiovascular disease Family history: Coronary thrombosis Family history: Gastrointestinal disease Family history: Glaucoma Family history: Hypertension Family history: Osteoporosis Family history: Thyroid disorder Headache Hearing loss Hereditary disease History of - anemia History of - disorder History of drug abuse Human immunodeficiency virus (HIV) seropositivity Hypercholesterolemia Infertile Kidney disease Parkinson's disease Prostate cancer Psychotic disorder Seizure disorder Stroke Tuberculosis Visual impairment No Pertinent Family Hx Physical Exam Vital Signs - First Documented Capillary Refill : Height: 5'6.00" Weight: 138lbs. 6.0oz. [id number]; 22.0 BMI Method:Estimated General Appearance: moderate distress, thin Eyes: Bilateral Eye Normal Inspection, Bilateral Eye PERRL, Bilateral Eye EOMI HEENT: PERRL/EOMI, normal ENT inspection, TMs normal, pharynx normal (oropharynx mucosa is mildly dry) Neck: full range of motion, supple, normal inspection Respiratory: chest non-tender, lungs clear, normal breath sounds, no respiratory distress, no accessory muscle use, decreased breath sounds; No whe ezing Cardiovascular: normal peripheral pulses, regular rate, rhythm, no JVD Gastrointestinal: non tender, soft Extremities: normal capillary refill, pedal edema (2+ pitting edema bilateral lower ankles) Neurologic/Psychiatric: alert, normal mood/affect, oriented x 3 Skin: normal color, warm/dry Focused Exam Lactate Level 08/15/19 23:08: Lactic Acid Level 1.68 Lactic Acid Level Laboratory Tests Test 08/15/19 23:08 Lactic Acid Level 1.68 MMOL/L (0.50-2.00) Progress/Results/Core Measures Suspected Sepsis SIRS Temperature: Pulse: Respiratory Rate: Laboratory Tests 08/15/19 23:08: White Blood Count 8.6 Blood Pressure / Mean: 08/15/19 23:08: Lactic Acid Level 1.68 Laboratory Tests 08/15/19 23:08: Creatinine 1.95H, INR Comment 4.3H, Platelet Count 143, Total Bilirubin 1.4H Results/Orders Lab Results Laboratory Tests Test 08/15/19 23:08 08/15/19 23:38 Range/Units White Blood Count 8.6 4.3-11.0 10^3/uL Red Blood Count 2.82 L 4.35-5.85 10^6/uL Hemoglobin 9.2 L 11.5-16.0 G/DL Hematocrit 30 L 35-52 % Mean Corpuscular Volume 105 H 80-99 FL Mean Corpuscular Hemoglobin 33 25-34 PG Mean Corpuscular Hemoglobin Concent 31 L 32-36 G/DL Red Cell Distribution Width 15.3 H 10.0-14.5 % Platelet Count 143 130-400 10^3/uL Mean Platelet Volume 10.4 7.4-10.4 FL Neutrophils (%) (Auto) 83 H 42-75 % Lymphocytes (%) (Auto) 8 L 12-44 % Monocytes (%) (Auto) 9 0-12 % Eosinophils (%) (Auto) 0 0-10 % Basophils (%) (Auto) 0 0-10 % Neutrophils # (Auto) 7.1 1.8-7.8 X 10^3 Lymphocytes # (Auto) 0.7 L 1.0-4.0 X 10^3 Monocytes # (Auto) 0.8 0.0-1.0 X 10^3 Eosinophils # (Auto) 0.0 0.0-0.3 10^3/uL Basophils # (Auto) 0.0 0.0-0.1 10^3/uL Prothrombin Time 43.3 H 12.2-14.7 SEC INR Comment 4.3 H 0.8-1.4 Activated Partial Thromboplast Time 51 H 24-35 SEC Sodium Level 139 135-145 MMOL/L Potassium Level 4.5 3.6-5.0 MMOL/L Chloride Level 100 98-107 MMOL/L Carbon Dioxide Level 28 21-32 MMOL/L Anion Gap 11 5-14 MMOL/L Blood Urea Nitrogen 29 H 7-18 MG/DL Creatinine 1.95 H 0.60-1.30 MG/DL Estimat Glomerular Filtration Rate 25 BUN/Creatinine Ratio 15 Glucose Level 121 H 70-105 MG/DL Lactic Acid Level 1.68 0.50-2.00 MMOL/L Calcium Level 8.7 8.5-10.1 MG/DL Corrected Calcium 9.2 8.5-10.1 MG/DL Total Bilirubin 1.4 H 0.1-1.0 MG/DL Aspartate Amino Transf (AST/SGOT) 16 5-34 U/L Alanine Aminotransferase (ALT/SGPT) 8 0-55 U/L Alkaline Phosphatase 50 40-136 U/L Troponin I < 0.028 <0.028 NG/ML B-Type Natriuretic Peptide 2001.0 H <100.0 PG/ML Total Protein 6.8 6.4-8.2 GM/DL Albumin 3.4 3.2-4.5 GM/DL Digoxin Level 1.11 0.80-2.00 NG/ML Blood Gas Puncture Site LEFT RADIAL Blood Gas Patient Temperature 37.2 Arterial Blood pH 7.52 H 7.37-7.43 Arterial Blood Partial Pressure CO2 35 35-45 MMHG Arterial Blood Partial Pressure O2 72 L 79-93 MMHG Arterial Blood HCO3 28 H 23-27 MMOL/L Arterial Blood Total CO2 29.1 21.0-31.0 MMOL/L Arterial Blood Oxygen Saturation 95 94-100 % Arterial Blood Base Excess 5.0 H -2.5-2.5 MMOL/L Earl Test YES-POS Blood Gas Ventilator Setting NO Blood Gas Inspired Oxygen 5L Micro Results Microbiology 08/15/19 Influenza Types A,B Antigen (IRINEO) - Final, Complete My Orders Orders - LEESA KOWALSKI Cbc With Automated Diff (08/15/19 23:07) Comprehensive Metabolic Panel (08/15/19 23:07) Blood Culture (08/15/19 23:07) Sputum Culture (08/15/19 23:07) Urinalysis (08/15/19 23:07) Urine Culture (08/15/19 23:07) Protime With Inr (08/15/19 23:07) Partial Thromboplastin Time (08/15/19 23:07) Chest 1 View, Ap/Pa Only (08/15/19 23:07) Ed Iv/Invasive Line Start (08/15/19 23:07) Ed Iv/Invasive Line Start (08/15/19 23:07) Vital Signs Adult Sepsis Patie Q15M (08/15/19 23:07) O2 (08/15/19 23:07) Remove Rings In Anticipation O (08/15/19 23:07) Lactic Acid Analyzer (08/15/19 23:07) Influenza A And B Antigens (08/15/19 23:07) Cefepime Injection (Maxipime Injection) (08/15/19 23:15) Albuterol/Ipra Inhalation Soln (Duoneb I (08/15/19 23:15) Svn Small Volume Nebulizer (08/15/19 23:07) BNP (08/15/19 23:07) Ekg Tracing (08/15/19 23:14) Continuous Ekg Monitoring (08/15/19 23:14) Troponin I (08/15/19 23:14) Digoxin (08/15/19 23:17) Acetaminophen Tablet (Tylenol Tablet) (08/15/19 23:30) Ed Iv/Invasive Line Start (08/15/19 23:22) Ns Iv 500 Ml (Sodium Chloride 0.9%) (08/15/19 23:22) Arterial Blood Gas (08/15/19 23:40) Medications Given in ED Current Medications Medications Dose Ordered Sig/Sam Route Start Time Stop Time Status Last Admin Dose Admin Acetaminophen 1,000 mg ONCE ONCE PO 08/15/19 23:30 08/15/19 23:31 DC 08/15/19 23:43 1,000 MG Albuterol/ Ipratropium 3 ml ONCE ONCE INH 08/15/19 23:15 08/15/19 23:16 DC 08/15/19 23:34 3 ML Cefepime HCl 1000 mg/Sterile Water 10 ml @ 200 mls/hr ONCE ONCE IV 08/15/19 23:15 08/15/19 23:17 DC 08/15/19 23:41 200 MLS/HR Sodium Chloride 500 ml @ 0 mls/hr Q0M ONCE IV 08/15/19 23:22 08/15/19 23:23 DC 08/15/19 23:42 999 MLS/HR Vital Signs/I&O 08/15/19 08/15/19 08/15/19 08/15/19 23:00 23:00 23:42 23:43 Temp 37.6 37.2 Pulse 85 Resp 22 B/P (MAP) 103/58 (73) Pulse Ox 96 96 97 O2 Delivery Nasal Cannula Nasal Cannula Nasal Cannula O2 Flow Rate 5.00 5.00 5.00 08/15/19 23:45 Temp 37.2 Pulse 85 Resp 22 B/P (MAP) 103/58 Pulse Ox 97 O2 Delivery Nasal Cannula O2 Flow Rate 5.00 Capillary Refill : Progress Note : Time: 23:45 Progress Note Baseline creatinine 1.3-1.5 so her creatinine of 1.9 is not significant elevation at this time. Does appear dry and has a soft blood pressure around 107/54 so we gave her 500 cc of fluid as an initial challenge before launching into a full 20 mL/kg fluid bolus. Her hemoglobin is at baseline. She has chronic microcytic anemia. Likely related to her renal dysfunction. Septic workup given her history of fever as well as EKG and troponin for her shortness of breath. Influenza swab, labs, sputum, chest x-ray. Negative for flu. Her BNP is significantly elevated at 2000 with a baseline of 4-600. Her potassium was 4.5 suspect her Lasix 40 mg daily is not sufficient. Digoxin is okay. She is supratherapeutic on her warfarin with INR 4.3. She has mechanical valve and I suspect she probably has a goal of 2.5-3.5. ABG demonstrates hypoxia. Suspect pneumonia causing her supratherapeutic INR and also fluid retention. Her blood pressure is still very soft 107/54 so we will be very careful with fluid resuscitation. ECG Initial ECG Impression Date: Aug 15, 2019 Initial ECG Impression Time: 23:21 Initial ECG Rate: 80 Initial ECG Rhythm: Normal Sinus Initial ECG Intervals: Normal Initial ECG Impression: Normal, Nonspecific Changes Initial ECG Comparisson: Unchanged Comment LVH. Ventricularly paced complexes without clinically relevant ST elevation or depression. Diagnostic Imaging Diagonstic Imaging: Xray Plain Films/CT/US/NM/MRI: chest (1 view) Comments Chronic changes compared to previous x-rays unchanged. No acute appearing infiltrate seen around the chronic scaring. Reviewed: Reviewed by Me Departure Communication (Admissions) Time/Spoke to Admitting Phy: 01:00 Discussed case lab imaging with Dr. Man and he agrees to admit the patient. Impression Primary Impression: Pneumonia Qualified Codes: J18.9 - Pneumonia, unspecified organism Additional Impressions: Hypoxia Supratherapeutic INR Disposition: ADMITTED INPATIENT Condition: Stable Admissions Decision to Admit Reason: Admit from ER (General) Decision to Admit/Date: Aug 16, 2019 Time/Decision to Admit Time: 00:30 Departure-Patient Inst. Referrals: RUSTAM CALI DO (PCP/Family) Primary Care Physician LEESA KOWALSKI Aug 15, 2019 23:14 POS
[2019-08-15] MEDS ORDERED: CEFEPIME INJECTION 1,000 MG in WATER (STERILE) FOR INJECTION 10 ML IV ONE (23:15)
[2019-08-15] MEDS ORDERED: RT-ALBUTEROL/IPRATROPIUM 3 ML (DUONEB) VIAL INH ONE (23:15)
[2019-08-15 23:21] LABS: BASOPHILS % (AUTO) 0 % (0-10); EOSINOPHILS % (AUTO) 0 % (0-10); HEMATOCRIT 30 % (35-52); HEMOGLOBIN 9.2 G/DL (11.5-16.0); LYMPHOCYTES # (AUTO) 0.7 X 10^3 (1.0-4.0); LYMPHOCYTES % (AUTO) 8 % (12-44); MEAN CORPUSCULAR HEMOGLOBIN 33 PG (25-34); MEAN CORPUSCULAR HGB CONC 31 G/DL (32-36); MEAN CORPUSCULAR VOLUME 105 FL (80-99); MEAN PLATELET VOLUME 10.4 FL (7.4-10.4); MONOCYTES # (AUTO) 0.8 X 10^3 (0.0-1.0); MONOCYTES % (AUTO) 9 % (0-12); NEUTROPHILS # (AUTO) 7.1 X 10^3 (1.8-7.8); NEUTROPHILS % (AUTO) 83 % (42-75); PLATELET COUNT 143 10^3/uL (130-400); RED CELL DISTRIBUTION WIDTH 15.3 % (10.0-14.5); WHITE BLOOD COUNT 8.6 10^3/uL (4.3-11.0)
[2019-08-15] MEDS ORDERED: NS IV 500 ML 500 ML IV ONE (23:22)
[2019-08-15] MEDS ORDERED: ACETAMINOPHEN 500 MG TAB (TYLENOL) PO ONE (23:30)
[2019-08-15 23:33] LABS: INR 4.3 (0.8-1.4); PROTHROMBIN TIME PATIENT 43.3 SEC (12.2-14.7)
[2019-08-15 23:38] LABS: ALANINE AMINOTRANSFERASE 8 U/L (0-55); ALBUMIN 3.4 GM/DL (3.2-4.5); ALKALINE PHOSPHATASE 50 U/L (40-136); BILIRUBIN,TOTAL 1.4 MG/DL (0.1-1.0); BUN/CREATININE RATIO 15; CALCIUM 8.7 MG/DL (8.5-10.1); CARBON DIOXIDE 28 MMOL/L (21-32); CHLORIDE 100 MMOL/L (98-107); CREATININE SERUM 1.95 MG/DL (0.60-1.30); GFR ESTIMATED 25; GLUCOSE 121 MG/DL (70-105); POTASSIUM 4.5 MMOL/L (3.6-5.0); SODIUM 139 MMOL/L (135-145); TOTAL PROTEIN 6.8 GM/DL (6.4-8.2)
[2019-08-15 23:48] LABS: ABG OXYGEN SATURATION 95 % (94-100); ABG PCO2 35 MMHG (35-45); ABG PH 7.52 (7.37-7.43); ABG PO2 72 MMHG (79-93); ABG TCO2 29.1 MMOL/L (21.0-31.0); ALLENS TEST YES-POS; INSPIRED O2 5L; PATIENT TEMP 37.2; VENTILATOR NO
[2019-08-16] VITALS (9 sets, daily range): BP systolic 82–122; BP diastolic 46–63
--- NOTE | 2019-08-16 00:47 | NUR ---
PT IS NOW 98.2 ORALLY
[2019-08-16] MEDS ORDERED: NS IV 1000 ML 1,000 ML IV SCH (01:06)
--- NOTE | 2019-08-16 01:45 | NUR ---
KATHY ELLIS admitted to room 423-1, with an admitting diagnosis of PNEUMONIA, HYPOXIA, on 08/16/19 from AM via CART, accompanied by STAFF AND DAUGHTER.KATHY ELLIS introduced to surroundings, call light, bed controls, phone, TV, temperature control, lights, meal times, smoking policy, visitor policy, side rail policy, bathrooms and showers. Patient Rights given to patient in the handbook. KATHY ELLIS verbalizes understanding that [facility] is not responsible for the loss or damage to any personal effects or valuables that are kept in the patients posession during their hospitalization.
[2019-08-16] MEDS: NS IV 1000 ML 1,000 ML IV SCH ×2 (02:00→09:07)
[2019-08-16] MEDS ORDERED: TRAM-42 PO (03:38)
[2019-08-16] MEDS ORDERED: POTA10CA43 PO (03:38)
[2019-08-16] MEDS ORDERED: ZOLP5TAB PO (03:38)
[2019-08-16] MEDS ORDERED: WARF2TAB8 PO (03:38)
[2019-08-16] MEDS ORDERED: ROPI0.5T2 PO (03:38)
[2019-08-16] MEDS ORDERED: METO2.5T PO (03:38)
[2019-08-16] MEDS ORDERED: RT-ALBUTEROL/IPRATROPIUM 3 ML (DUONEB) VIAL INH PRN (04:30)
[2019-08-16] MEDS ORDERED: ACETAMINOPHEN 325 MG TABLET PO PRN (05:15)
[2019-08-16 05:53] LABS: BASOPHILS % (AUTO) 0 % (0-10); EOSINOPHILS % (AUTO) 0 % (0-10); HEMATOCRIT 27 % (35-52); HEMOGLOBIN 8.3 G/DL (11.5-16.0); LYMPHOCYTES # (AUTO) 0.7 X 10^3 (1.0-4.0); LYMPHOCYTES % (AUTO) 10 % (12-44); MEAN CORPUSCULAR HEMOGLOBIN 32 PG (25-34); MEAN CORPUSCULAR HGB CONC 30 G/DL (32-36); MEAN CORPUSCULAR VOLUME 106 FL (80-99); MEAN PLATELET VOLUME 11.2 FL (7.4-10.4); MONOCYTES # (AUTO) 0.7 X 10^3 (0.0-1.0); MONOCYTES % (AUTO) 9 % (0-12); NEUTROPHILS # (AUTO) 5.7 X 10^3 (1.8-7.8); NEUTROPHILS % (AUTO) 80 % (42-75); PLATELET COUNT 125 10^3/uL (130-400); RED CELL DISTRIBUTION WIDTH 15.4 % (10.0-14.5); WHITE BLOOD COUNT 7.1 10^3/uL (4.3-11.0)
[2019-08-16 06:14] LABS: ALBUMIN 3.1 GM/DL (3.2-4.5); BILIRUBIN,TOTAL 1.1 MG/DL (0.1-1.0); CALCIUM 8.2 MG/DL (8.5-10.1); CREATININE SERUM 1.81 MG/DL (0.60-1.30); POTASSIUM 3.9 MMOL/L (3.6-5.0); TOTAL PROTEIN 6.1 GM/DL (6.4-8.2)
[2019-08-16 06:44] LABS: PROTHROMBIN TIME PATIENT 49.2 SEC (12.2-14.7)
[2019-08-16 06:45] LABS: INR 5.1 (0.8-1.4)
[2019-08-16] MEDS: LEVOTHYROXINE 100 MCG (LEVOTHROID) TAB PO SCH (07:00)
--- NOTE | 2019-08-16 08:07 | Diagnostic Imaging Report ---
EXAMINATION: Portable chest compared to prior study from 05/10/2019 INDICATION: Shortness of breath FINDINGS: There is a pacemaker device present. There is marked enlargement demonstrated of the cardiac silhouette. There are new regions of bilateral interstitial and alveolar opacity present within the lungs. This may reflect multifocal pneumonia given some asymmetry of the left upper lobe. Asymmetric edema not completely excluded. There appear to be left greater than right pleural effusions. IMPRESSION: 1. Marked enlargement of the cardiac silhouette with new increasing interstitial and alveolar opacities within the lungs bilaterally. Given some asymmetric consolidation at the left lung apex, this may reflect multifocal pneumonia but edema is not excluded. There appear to be left greater than right pleural effusions. Dictated by: Dictated on workstation # [id number]
[2019-08-16] MEDS: RT-ALBUTEROL/IPRATROPIUM 3 ML (DUONEB) VIAL INH SCH ×3 (08:27→19:51)
[2019-08-16] MEDS: PANTOPRAZOLE 40 MG (PROTONIX) TAB PO SCH (09:08)
[2019-08-16] MEDS: MEXILETINE 150 MG (MEXITIL) CAPSULE PO SCH ×2 (09:08→20:39)
[2019-08-16] MEDS: DIGOXIN 0.125 MG (LANOXIN) TAB PO SCH (09:09)
[2019-08-16] MEDS ORDERED: ONDANSETRON 4 MG (ZOFRAN) ORAL DISSOLVE TAB PO PRN (09:15)
[2019-08-16] MEDS ORDERED: ANTACID SUSP 30 ML UDC (MYLANTA) PO PRN (09:15)
[2019-08-16] MEDS ORDERED: POLYETHYLENE GLYCOL 17 GM (MIRALAX) PACK PO PRN (09:15)
--- NOTE | 2019-08-16 09:22 | NUR ---
NOTE THAT WHEN THIS RN MADE ROUNDS PT C/O NOT GETTING ENOUGH O2 -- O2 WAS INCREASED FROM 2.5. TO3, RT WAS CALLED AND HOB HIGH PIRES -- LS SLT COARSE -- FAMILY VOICED THAT PT HAD 500 BOLUS OF IVFS IN ER AND IVFS WERE AT 150ML/HR WHEN TO FLOOR -- THEN DECRESED TO 75ML/HR -- DR BRADFORD WAS CALLED AND MESSAGE LEFT -- FAMILY VOICED SHE HAD NOT URINATED SINCE 9PM YESTERDAY -- BLADDER SCAN 725ML, PT WAS GOTTEN UP TO BSC X2 ASSIST AND SHE URINATED 380ML, RETURNED TO BED-- XRAY TO ROOM AND TOOK HER DOWN 2 VIEW THAT WAS ORDERED -- DR BRADFORD ON FLOOR AND HE VOICED NO TO LASIX FAMILY REQUESTED -- TOO DRY -- SHE NEEDS THE IVFS NS TO RUN AT 75 ML/HR, DUE TO LOW B/P WILL HOLD TOPROL XL -- NOTE THAT PT DID VOMIT 15ML CLR YELLOW EMESIS -- NO PILLS VERY VOMITED UP -- PT VOICED THE LANOXIN TAB MADES SHE NAUSEA AND SHE WILL VOMIT SOME BUT NOT THE PILLS AND THEN BE FINE -- RT WAS CALLED BY MOTHER SUPERIOR ABOUT ADDING WATER BUBBLER
--- NOTE | 2019-08-16 10:21 | Diagnostic Imaging Report ---
INDICATION: Hypoxia and shortness of breath and fever and weakness. PA and lateral chest obtained at 08:54 a.m. and compared to yesterday. There is marked cardiomegaly with poststernotomy change and unchanged pacemaker device. There is central vascular congestion with diffuse interstitial prominence which is similar to the prior study. There are bibasilar infiltrates. There are trace bilateral pleural effusions. IMPRESSION: Marked cardiomegaly is present with central vascular congestion and chronic interstitial changes. Bibasilar infiltrates are present. There are trace bilateral pleural effusions. Dictated by: Dictated on workstation # [id number]
--- NOTE | 2019-08-16 10:24 | History & Physical-Hospitalist ---
History of Present Illness HPI/Chief Complaint Anisha Mcfarland is an 84-year-old female with past medical history of hypertension, hyperlipidemia, chronic kidney disease, mechanical aortic valve, mitral valve stenosis, diastolic heart failure, coronary artery disease, peripheral artery disease, who presented with shortness of breath. She reports that she is feeling very short of breath and was getting winded with minimal activity. She was also having fevers and chills at home. She was measured at 101 while still at home. She had a mild cough but it was nonproductive. She had one episode of nausea and vomiting yesterday morning after eating a banana and a Maori cookie. She was able to eat some broth last night with out issue. She is not feeling hungry this morning. She denies abdominal pain and diarrhea. She denies dysuria. She denies chest pain. Source: patient Exam Limitations: no limitations Date Seen 08/16/19 Time Seen by a Provider: 09:15 Attending Physician Camryn Bradford MD PCP Jake Prabhakar DO Referring Physician Date of Admission Aug 16, 2019 at 00:05 Home Medications & Allergies Home Medications Reviewed patient Home Medication Reconciliation performed by pharmacy medication reconciliations sugarcane research technician and/or nursing. Patients Allergies have been reviewed. Allergies Allergies Coded Allergies NKANo Known Allergies (Verified Allergy, Unknown, 11/14/05) Past Qhqplcy-Xzmjpw-Eopwat Hx Past Med/Social Hx: Reviewed Nursing Past Med/Soc Hx Patient Social History Alcohol Use: Denies Use Recreational Drug Use: No Smoking Status: Never a Smoker 2nd Hand Smoke Exposure: Yes Recent Foreign Travel: No Contact w/other who traveled: No Recent Hopitalizations: No Recent Infectious Disease Expo: No Immunizations Up To Date Tetanus Booster (TDap): More than 5yrs Pediatric: Yes Date of Pneumonia Vaccine: May 31, 2015 Date of Influenza Vaccine: Jun 03, 2018 Seasonal Allergies Seasonal Allergies: No Past Medical History Surgeries: Cardiac, Section, Gallbladder, Orthopedic, Valve Replacement Currently Using CPAP: No Currently Using BIPAP: No Cardiac: Cardiomyopathy, Coronary Artery Disease, Hypertension, Valvular Heart Disease Neurological: Vertigo : No Reproductive: No Sexually Transmitted Disease: No HIV/AIDS: No Menopausal Gastrointestinal: Gall Bladder Disease Musculoskeletal: Arthritis Endocrine: Hypothyroidsim HEENT: Cataract Loss of Vision: Denies Hearing Impairment: Denies Did You Recieve Any Treatments: No History of Blood Disorders: Yes (anticoagulated) Adverse Reaction to Blood Burch: No Family History Family history: Diabetes mellitus 19 MOTHER Heart disease 19 MOTHER History of - respiratory disease 19 FATHER (PNEUMONIA- IN HIS 20'S) Myocardial infarction 19 MOTHER No Family History of: Abdominal aortic aneurysm Maynor's disease Alcoholism Aphasia Cancer Cancer of colon Cataract Chest pain Congenital heart disease Congestive heart failure Cystic fibrosis Dementia Dysphagia Family history: Allergy Family history: Alzheimer's disease Family history: Arthritis Family history: Asthma Family history: Breast disease Family history: Cardiovascular disease Family history: Coronary thrombosis Family history: Gastrointestinal disease Family history: Glaucoma Family history: Hypertension Family history: Osteoporosis Family history: Thyroid disorder Headache Hearing loss Hereditary disease History of - anemia History of - disorder History of drug abuse Human immunodeficiency virus (HIV) seropositivity Hypercholesterolemia Infertile Kidney disease Parkinson's disease Prostate cancer Psychotic disorder Seizure disorder Stroke Tuberculosis Visual impairment No Pertinent Family Hx Review of Systems Constitutional: chills, fever, malaise EENTM: see HPI Respiratory: cough, dyspnea on exertion; No phlegm; short of breath Cardiovascular: no symptoms reported Gastrointestinal: nausea, vomiting Genitourinary: no symptoms reported Musculoskeletal: no symptoms reported Skin: no symptoms reported Psychiatric/Neurological: No Symptoms Reported Physical Exam Physical Exam Vital Signs Vital Signs - First Documented Capillary Refill : Less Than 3 Seconds Height, Weight, BMI Height: 5'6.00" Weight: 138lbs. 6.0oz. [id number]; 22.22 BMI Method:Estimated General Appearance: No Apparent Distress, Chronically ill HEENT: PERRL/EOMI, Other (dry mucous membranes) Neck: Normal Inspection, Non Tender, Supple Respiratory: No Accessory Muscle Use, No Respiratory Distress, Crackles Cardiovascular: Regular Rate, Rhythm, Systolic Murmur (mechanical heart sounds) Gastrointestinal: Normal Bowel Sounds, Non Tender, Soft Extremity: Non Tender, Pedal Edema, Other (right iraheta wound with dressing in place) Neurologic/Psychiatric: Alert, Oriented x3, No Motor/Sensory Deficits, Normal Mood/Affect Skin: Normal Color, Warm/Dry Lymphatic: No Adenopathy Results Results/Procedures Labs Laboratory Tests 08/15/19 23:08 08/16/19 04:43 Patient resulted labs reviewed. Imaging: Reviewed Imaging Report Assessment/Plan Admission Diagnosis Healthcare acquired pneumonia Admission Status: Inpatient Order (span 2 midnights) Reason for Inpatient Admission: HCAP requiring IV antibiotics Assessment and Plan Healthcare associated pneumonia Acute on chronic hypoxic respiratory failure Afebrile with normal white blood cell count on admission Reported fever at home of 101 chest x-ray concerning for pneumonia Procalcitonin elevated at 0.42 started on cefepime, continue started on IV fluids at 150 mL per hour, decreased to 75 mL per hour this morning MAT protocol DARA on CKD Creatinine 1.9 on admission, increased from baseline in approximately 1.5 Started on IV fluids on admission Creatinine improved to 1.8 this morning Decreased rate of IV fluids this morning Continue to monitor closely and avoid nephrotoxins as able Supratherapeutic INR Mechanical aortic valve Paroxysmal atrial fibrillation INR 4.7 on admission, trended up to 5.1 this morning Continue to hold Coumadin Monitor closely and resume Coumadin when able continue digoxin Chronic heart failure with preserved ejection fraction BNP elevated at 2000 on admission BNP elevation partly attributed to Entresto use Clinical exam consistent with dehydration Started on IV fluids and creatinine improved Oxygen requirement stable Decreased fluids and continue to monitor closely Hypertension Hold antihypertensives with low blood pressures this morning CAD PAD Mitral valve stenosis GERD clinically significant, no acute management needs, continue home meds DVT prophylaxis: Supratherapeutic INR Diagnosis/Problems Diagnosis/Problems (1) HCAP (healthcare-associated pneumonia) Status: Acute (2) Supratherapeutic INR Status: Acute Clinical Quality Measures DVT/VTE Risk/Contraindication: Risk Factor Score Per Nursin RFS Level Per Nursing on Admit: 4+=Very High CAMRYN BRADFORD MD Aug 16, 2019 10:23 POS
[2019-08-16] MEDS: DOCUSATE SODIUM 100 MG (COLACE) CAP PO SCH ×2 (11:09→22:33)
[2019-08-16] MEDS: SENNOSIDES 8.6 MG (SENOKOT) TAB PO SCH ×2 (11:09→22:33)
[2019-08-16] MEDS ORDERED: CEFEPIME INJECTION 2,000 MG in WATER (STERILE) FOR INJECTION 20 ML IV SCH (12:00)
[2019-08-16] MEDS: CEFEPIME INJECTION 2,000 MG in WATER (STERILE) FOR INJECTION 20 ML IV SCH (12:29)
[2019-08-16] MEDS: rOPINIRole 0.25 MG (REQUIP) TAB PO SCH ×2 (12:30→20:39)
[2019-08-16] MEDS: ONDANSETRON 4 MG/2 ML (SDV) Z0FRAN IV PRN (12:42)
[2019-08-16] MEDS ORDERED: DOCUSATE SODIUM 100 MG (COLACE) CAP PO SCH (21:00)
[2019-08-16] MEDS ORDERED: ZOLPIDEM 5 MG (AMBIEN) TAB PO PRN (21:00)
[2019-08-16] MEDS ORDERED: SENNOSIDES 8.6 MG (SENOKOT) TAB PO SCH (21:00)
[2019-08-17] VITALS (7 sets, daily range): BP systolic 113–130; BP diastolic 56–62
[2019-08-17] MEDS: RT-ALBUTEROL/IPRATROPIUM 3 ML (DUONEB) VIAL INH SCH ×5 (01:54→19:22)
[2019-08-17] MEDS: NS IV 1000 ML 1,000 ML IV SCH (02:00)
[2019-08-17] MEDS: ONDANSETRON 4 MG/2 ML (SDV) Z0FRAN IV PRN (05:14)
[2019-08-17 05:23] LABS: BASOPHILS % (AUTO) 0 % (0-10); EOSINOPHILS % (AUTO) 0 % (0-10); HEMATOCRIT 30 % (35-52); HEMOGLOBIN 9.1 G/DL (11.5-16.0); LYMPHOCYTES # (AUTO) 0.5 X 10^3 (1.0-4.0); LYMPHOCYTES % (AUTO) 6 % (12-44); MEAN CORPUSCULAR HEMOGLOBIN 32 PG (25-34); MEAN CORPUSCULAR HGB CONC 30 G/DL (32-36); MEAN CORPUSCULAR VOLUME 106 FL (80-99); MEAN PLATELET VOLUME 10.7 FL (7.4-10.4); MONOCYTES # (AUTO) 0.7 X 10^3 (0.0-1.0); MONOCYTES % (AUTO) 9 % (0-12); NEUTROPHILS # (AUTO) 6.5 X 10^3 (1.8-7.8); NEUTROPHILS % (AUTO) 85 % (42-75); PLATELET COUNT 143 10^3/uL (130-400); RED CELL DISTRIBUTION WIDTH 15.8 % (10.0-14.5); WHITE BLOOD COUNT 7.7 10^3/uL (4.3-11.0)
--- NOTE | 2019-08-17 05:32 | NUR ---
pt breathing heavy at this time, some crackles in lung, complains of feeling pressure on chest. O2 at 89% with 6L of O2. Dr. Man notified, no new orders.
[2019-08-17 05:48] LABS: CALCIUM 8.4 MG/DL (8.5-10.1); CREATININE SERUM 1.61 MG/DL (0.60-1.30); MAGNESIUM 2.1 MG/DL (1.6-2.4); POTASSIUM 4.5 MMOL/L (3.6-5.0)
[2019-08-17 06:00] LABS: PROTHROMBIN TIME PATIENT 53.2 SEC (12.2-14.7)
[2019-08-17 06:01] LABS: INR 5.6 (0.8-1.4)
[2019-08-17] MEDS: LEVOTHYROXINE 100 MCG (LEVOTHROID) TAB PO SCH (06:50)
[2019-08-17] MEDS: PANTOPRAZOLE 40 MG (PROTONIX) TAB PO SCH (09:07)
[2019-08-17] MEDS: rOPINIRole 0.25 MG (REQUIP) TAB PO SCH ×3 (09:07→20:45)
[2019-08-17] MEDS: MEXILETINE 150 MG (MEXITIL) CAPSULE PO SCH ×2 (09:07→20:45)
[2019-08-17] MEDS: DIGOXIN 0.125 MG (LANOXIN) TAB PO SCH (09:07)
[2019-08-17] MEDS ORDERED: FUROSEMIDE 40 MG (LASIX) TAB PO NR (09:15)
--- NOTE | 2019-08-17 09:18 | Progress Note - Hospitalist ---
Subjective HPI/CC On Admission Date Seen by Provider: Aug 17, 2019 Time Seen by Provider: 07:55 Anisha Mcfarland is an 84-year-old female with past medical history of hypertension, hyperlipidemia, chronic kidney disease, mechanical aortic valve, mitral valve stenosis, diastolic heart failure, coronary artery disease, peripheral artery disease, who presented with shortness of breath. She reports that she is feeling very short of breath and was getting winded with minimal activity. She was also having fevers and chills at home. She was measured at 101 while still at home. She had a mild cough but it was nonproductive. She h ad one episode of nausea and vomiting yesterday morning after eating a banana and a Belarusian cookie. She was able to eat some broth last night with out issue. She is not feeling hungry this morning. She denies abdominal pain and diarrhea. She denies dysuria. She denies chest pain. Subjective/Events-last exam She reports chest tightness. She denies any pleuritic chest pain. She says she is not feeling short of breath while laying in bed but has been short of breath on walking to the bathroom. She is requiring more oxygen than she normally does with her baseline 2.5 L. She is worried that she is getting fluid overloaded. She says that when the IV fluids were on her mouth felt dry and when they trend them off she does not have any issues. She is eating and drinking on her own and thinks that she can maintain her intake today. Focused Exam Lactate Level 08/15/19 23:08: Lactic Acid Level 1.68 Objective Exam Vital Signs Vital Signs Date Time Temp Pulse Resp B/P (MAP) Pulse Ox O2 Delivery O2 Flow Rate FiO2 08/17/19 08:03 Nasal Cannula 3.50 08/17/19 07:23 37.5 85 22 130/62 (84) 90 Capillary Refill : Less Than 3 Seconds General Appearance: Anxious, Chronically ill, Mild Distress HEENT: PERRL/EOMI, Pharynx Normal Neck: Normal Inspection, Supple Respiratory: Crackles, Decreased Breath Sounds, Other (Tachypnea) Cardiovascular: Regular Rate, Rhythm, Systolic Murmur (Mechanical heart sounds) Gastrointestinal: Normal Bowel Sounds, Non Tender, Soft Extremity: Non Tender, Inflammation, Pedal Edema Neurologic/Psychiatric: Alert, Oriented x3, No Motor/Sensory Deficits, Normal Mood/Affect Skin: Normal Color, Warm/Dry Results/Procedures Lab Laboratory Tests 08/17/19 05:08 Patient resulted labs reviewed. Imaging: Reviewed Imaging Report Assessment/Plan Assessment and Plan Assess & Plan/Chief Complaint Healthcare associated pneumonia Acute on chronic hypoxic respiratory failure Chronic heart failure with preserved ejection fraction Afebrile, WBC normal Requiring 5 L via nasal cannula at rest Continue cefepime Discontinue IV fluids Repeat BNP Repeat chest x-ray today Resume home Lasix dose Consult placed for Dr. Parker, cardiology, tomorrow morning DARA on CKD Creatinine 1.9 on admission, increased from baseline in approximately 1.5 Creatinine improved to 1.6 today Discontinue IV fluids, encourage oral intake Resume home diuretics Continue to monitor closely and avoid nephrotoxins as able Supratherapeutic INR Mechanical aortic valve Paroxysmal atrial fibrillation INR 4.7 on admission, trended up to 5.6 this morning Continue to hold Coumadin Monitor closely and resume Coumadin when able continue digoxin Hypertension Hold antihypertensives with low blood pressures this morning CAD PAD Mitral valve stenosis GERD clinically significant, no acute management needs, continue home meds DVT prophylaxis: Supratherapeutic INR Diagnosis/Problems Diagnosis/Problems (1) HCAP (healthcare-associated pneumonia) Status: Acute (2) Supratherapeutic INR Status: Acute (3) Acute on chronic respiratory failure with hypoxemia Status: Acute (4) Acute kidney injury superimposed on chronic kidney disease Status: Acute Clinical Quality Measures DVT/VTE Risk/Contraindication: Risk Factor Score Per Nursin RFS Level Per Nursing on Admit: 4+=Very High KATHERINE BRADFORD MD Aug 17, 2019 09:18 POS
[2019-08-17] MEDS: DOCUSATE SODIUM 100 MG (COLACE) CAP PO SCH ×2 (09:20→20:47)
[2019-08-17] MEDS: SENNOSIDES 8.6 MG (SENOKOT) TAB PO SCH ×2 (09:20→20:47)
--- NOTE | 2019-08-17 09:35 | Diagnostic Imaging Report ---
INDICATION: Shortness of breath and fever. FINDINGS: Patient is status post prior sternotomy. There is marked enlargement of the cardiac silhouette. Implantable cardiac defibrillator device is noted. Patient appears to have some chronic interstitial changes in the lungs and correlated with more remote examinations. There is abnormal consolidation present at the left lung base. There is left greater than right pleural effusions. In the setting of fever, pneumonia is suspected. There is no pneumothorax. IMPRESSION: 1. Marked enlargement of the cardiac silhouette with prior sternotomy changes and defibrillator placement. 2. Left greater than right pleural effusions with left basilar consolidation suspect for pneumonia. Dictated by: Dictated on workstation # [id number]
--- NOTE | 2019-08-17 10:39 | Consultation-Cardiology ---
HPI-Cardiology Cardiology Consultation: Date of Consultation 08/17/19 Time Seen by a Provider: 10:50 Date of Admission Attending Physician Camryn Man MD Admitting Physician Jake Prabhakar DO Consulting Physician KIKE VILLAGRAN MD, MA, FACP, FACC, FSCAI, CCDS Primary acls specialist: Dr Parker HPI: Chief Complaint: CC: Shortness of breath HPI: 84 yo woman who suffers from multiple comorbidities, admitted with shortness of breath that has been progressive over the last several days. Has had malaise and fever and chills. Has been diagnosed with pneumonia that Dr Man is managing. No cp or palp or syncope. Chronic, intermittent leg swelling. Has chronic, gen weakness Review of Systems-Cardiology Review of Systems Constitutional: As described under HPI Eyes: No vision change Ears/Nose/Throat: No ear discharge, No nasal drainage, No recent hearing loss Respiratory: As described under HPI Cardiovascular: As described under HPI Gastrointestinal: No diarrhea, No nausea, No vomiting Genitourinary: No dysuria, No hematuria Musculoskeletal: back pain (chronic) Skin: No rash, No ulcerations Psychiatric/Neurological: No focal weakness, No syncope Hematologic: No bleeding abnormalities CNM-Jgjpvp-Grycif Hx Patient Social History Alcohol Use: Denies Use Recreational Drug Use: No Smoking Status: Never a Smoker 2nd Hand Smoke Exposure: Yes Recent Foreign Travel: No Recent Infectious Disease Expo: No Hospitalization with Isolation: Denies Immunizations Up To Date Tetanus Booster (TDap): More than 5yrs Date of Pneumonia Vaccine: May 31, 2015 Date of Influenza Vaccine: Jun 03, 2018 Past Medical History PMH As described under Assessment. Family Medical History Family History: Family history: Diabetes mellitus 19 MOTHER Heart disease 19 MOTHER History of - respiratory disease 19 FATHER (PNEUMONIA- IN HIS 20'S) Myocardial infarction 19 MOTHER No Family History of: Abdominal aortic aneurysm Maynor's disease Alcoholism Aphasia Cancer Cancer of colon Cataract Chest pain Congenital heart disease Congestive heart failure Cystic fibrosis Dementia Dysphagia Family history: Allergy Family history: Alzheimer's disease Family history: Arthritis Family history: Asthma Family history: Breast disease Family history: Cardiovascular disease Family history: Coronary thrombosis Family history: Gastrointestinal disease Family history: Glaucoma Family history: Hypertension Family history: Osteoporosis Family history: Thyroid disorder Headache Hearing loss Hereditary disease History of - anemia History of - disorder History of drug abuse Human immunodeficiency virus (HIV) seropositivity Hypercholesterolemia Infertile Kidney disease Parkinson's disease Prostate cancer Psychotic disorder Seizure disorder Stroke Tuberculosis Visual impairment Allergies and Home Medications Allergies Coded Allergies: NKANo Known Allergies (Verified Allergy, Unknown, 11/14/05) Home Medications Acetaminophen 500 Mg Tablet, 500 MG PO Q8H PRN for PAIN-MILD, (Reported) Digoxin 125 Mcg Tablet, 125 MCG PO Q48H, (Reported) Fluticasone/Salmeterol 12 Gm Hfa.aer.ad, 1 PUFF IH BID@08,20 Prescribed by: VENANCIO ARREAGA on 04/01/19 1007 Furosemide 40 Mg Tablet, 40 MG PO BID, (Reported) Isosorbide Mononitrate 30 Mg Tab.er.24h, 15 MG PO DAILY, (Reported) TAKES 1/2 (30MG) TABLET Levothyroxine Sodium 100 Mcg Tablet, 100 MCG PO DAILY, (Reported) Loratadine 10 Mg Tablet, 10 MG PO DAILY, (Reported) Meclizine HCl 25 Mg Tablet, 25 MG PO TID PRN for DIZZINESS, (Reported) Metolazone 2.5 Mg Tablet, 2.5 MG PO MoFr PRN for FLUID RETENTION, (Reported) Metolazone 2.5 Mg Tablet, 2.5 MG PO DAILY PRN, (Reported) takes 2.5mg once daily sunday and sunday and as needed Metoprolol Succinate 25 Mg Tab.er.24h, 25 MG PO DAILY, (Reported) Mexiletine HCl 150 Mg Cap, 150 MG PO BID, (Reported) Nitroglycerin 0.4 Mg Tab.subl, 0.4 MG SL UD PRN for CHEST PAIN, (Reported) Pantoprazole Sodium 40 Mg Tablet.dr, 40 MG PO DAILY, (Reported) Potassium Chloride 10 Meq Capsule.er, 10 MEQ PO BID, (Reported) Ropinirole HCl 0.5 Mg Tablet, 0.5 MG PO TID, (Reported) Sacubitril/Valsartan 1 Each Tablet, 1 TAB PO BID, (Reported) Tramadol HCl 50 Mg Tablet, 50 MG PO Q6H PRN for PAIN-MODERATE, (Reported) Warfarin Sodium 2 Mg Tablet, 2 MG PO MoWe, (Reported) TAKES 2MG ON SUN & SUN, THEN 4 MG ALL OTHER DAYS (SUN,TUES,TH,FRI,SAT) Warfarin Sodium 2 Mg Tablet, 4 MG PO SuTuThFrSa, (Reported) TAKES 2MG ON MON & WED, THEN 4 MG ALL OTHER DAYS (SUN,TU,TH,SUN,SAT) Zolpidem Tartrate 5 Mg Tablet, 5 MG PO HS PRN for SLEEP, (Reported) Patient Home Medication List Home Medication List Reviewed: Yes Physical Exam-Cardiology Physical Exam Vital Signs/I&O 08/17/19 08/17/19 08/17/19 08/17/19 01:54 01:54 02:33 04:15 Temp 36.7 37.6 Pulse 90 86 Resp 20 B/P (MAP) 122/61 (81) Pulse Ox 87 87 93 90 O2 Delivery Nasal Cannula Nasal Cannula Nasal Cannula O2 Flow Rate 3.00 3.00 5.00 08/17/19 08/17/19 08/17/19 08/17/19 06:09 07:00 07:23 08:03 Temp 37.5 Pulse 87 85 Resp 22 B/P (MAP) 130/62 (84) Pulse Ox 90 90 O2 Delivery Nasal Cannula Nasal Cannula Nasal Cannula O2 Flow Rate 3.00 5.00 3.50 08/17/19 08/17/19 08/17/19 08/17/19 09:40 11:39 12:14 12:17 Temp 37.5 37.8 Pulse 88 87 Resp 16 B/P (MAP) 121/62 (81) Pulse Ox 94 94 O2 Delivery Nasal Cannula Nasal Cannula O2 Flow Rate 3.00 5.00 08/17/19 00:00 Intake Total 720 ml Output Total 300 ml Balance 420 ml Capillary Refill : Less Than 3 Seconds Constitutional: AAO x 3, well-developed, well-nourished HEENT: EOMI, hearing is well preserved; No xanthelasmas are seen Neck: carotid pulses are 2 + bilaterally, with good upstrokes Respiratory: No accessory muscle use; other (good bilateral air entry, diminished at the bases) Cardiovascular: regular rate-rhythm, S1 and S2 (mech S2, 2/6 MSM, soft early luna murmur) Gastrointestinal: No tender, No guarding, No rebound; audible bowel sounds Extremities: No clubbing, No cyanosis, No significant edema Neurologic/Psychiatric: oriented x 3, other (moves all limbs equally) Skin: No rash on exposed areas, No ulcerations on exposed areas Data Review Labs Laboratory Tests 08/17/19 05:08: White Blood Count 7.7, Red Blood Count 2.84L, Hemoglobin 9.1L, Hematocrit 30L, Mean Corpuscular Volume 106H, Mean Corpuscular Hemoglobin 32, Mean Corpuscular Hemoglobin Concent 30L, Red Cell Distribution Width 15.8H, Platelet Count 143, Mean Platelet Volume 10.7H, Neutrophils (%) (Auto) 85H, Lymphocytes (%) (Auto) 6L, Monocytes (%) (Auto) 9, Eosinophils (%) (Auto) 0, Basophils (%) (Auto) 0, Neutrophils # (Auto) 6.5, Lymphocytes # (Auto) 0.5L, Monocytes # (Auto) 0.7, Eosinophils # (Auto) 0.0, Basophils # (Auto) 0.0, Prothrombin Time 53.2*H, INR Comment 5.6*H, Sodium Level 138, Potassium Level 4.5, Chloride Level 105, Carbon Dioxide Level 21, Anion Gap 12, Blood Urea Nitrogen 27H, Creatinine 1.61H, Estimat Glomerular Filtration Rate 31, BUN/Creatinine Ratio 17, Glucose Level 103, Calcium Level 8.4L, Magnesium Level 2.1, Troponin I < 0.028, B-Type Natriuretic Peptide 1461.6H Microbiology 08/15/19 Blood Culture - Preliminary, Resulted No growth 08/15/19 Influenza Types A,B Antigen (IRINEO) - Final, Complete Laboratory Tests 08/15/19 23:08 08/16/19 04:43 08/17/19 05:08 A/P-Cardiology Assessment/Admission Diagnosis Ac on chronic type 1 resp failure due to COPD exacerbated by pneumonia Chronic systolic and valvular CHF (HFrEF) see echo results below Status post implantation of CERTIFIED INDOOR ENVIRONMENTALIST-D in August [address], [address] Parker History of aortic valve replacement in 1998 with metallic valve (chronic warfarin therapy monitored by Dr Prabhakar); last echo on March 26, 2019 (Dr Orozco) showing ejection fraction 35-40 percent, severely dilated left atrium, Ao prosthetic valve present, severe mitral stenosis with mitral valve area 0.8 cm, mod MR, severe TR, systolic PA pressure 63 mmHg. Has not been deemed suitable for MV intervention by [facility] History of chest pain Permanent atrial fibrillation Supratherapeutic INR Peripheral vascular disease, h/o multiple peripheral interventions (Dr Parker monitoring) Coronary artery disease, small vessel disease, nonobstructive disease on cardiac catheterization was done in September 2014. Stress test in December 2016 did not show ischemia or infarction, EF 41 percent Carotid stenosis, followed by [facility]. CKD-4 Hypertension Hyperlipidemia Right hip fracture in May 2018 status post surgical repair Discussion and Recomendations * I had a detailed discussion with her and her daughter and answered CV-related questions * Continue current regimen * Continue to hold warfarin until INR falls back in the therapeutic range * Monitor labs closely * Complex management due to multiple cardiac and other comorbidities Clinical Quality Measures DVT/VTE Risk/Contraindication: Risk Factor Score Per Nursin RFS Level Per Nursing on Admit: 4+=Very High KIKE VILLAGRAN MD FACP FAC CCDS Aug 17, 2019 10:39 POS
[2019-08-17] MEDS: CEFEPIME INJECTION 2,000 MG in WATER (STERILE) FOR INJECTION 20 ML IV SCH (11:51)
[2019-08-17] MEDS: FUROSEMIDE 40 MG (LASIX) TAB PO SCH (17:05)
[2019-08-17] MEDS: guaiFENesin (MUCINEX) 600 MG TAB PO SCH (20:45)
[2019-08-17] MEDS: ACETAMINOPHEN 325 MG TABLET PO PRN (20:46)
[2019-08-18] VITALS (8 sets, daily range): BP systolic 101–115; BP diastolic 53–64
[2019-08-18] MEDS: RT-ALBUTEROL/IPRATROPIUM 3 ML (DUONEB) VIAL INH SCH ×5 (01:42→23:02)
[2019-08-18 06:10] LABS: BASOPHILS % (AUTO) 0 % (0-10); EOSINOPHILS # (AUTO) 0.2 10^3/uL (0.0-0.3); EOSINOPHILS % (AUTO) 2 % (0-10); HEMATOCRIT 30 % (35-52); HEMOGLOBIN 8.9 G/DL (11.5-16.0); LYMPHOCYTES # (AUTO) 0.6 X 10^3 (1.0-4.0); LYMPHOCYTES % (AUTO) 8 % (12-44); MEAN CORPUSCULAR HEMOGLOBIN 32 PG (25-34); MEAN CORPUSCULAR HGB CONC 30 G/DL (32-36); MEAN CORPUSCULAR VOLUME 108 FL (80-99); MEAN PLATELET VOLUME 11.3 FL (7.4-10.4); MONOCYTES # (AUTO) 0.7 X 10^3 (0.0-1.0); MONOCYTES % (AUTO) 10 % (0-12); NEUTROPHILS # (AUTO) 6.2 X 10^3 (1.8-7.8); NEUTROPHILS % (AUTO) 81 % (42-75); PLATELET COUNT 126 10^3/uL (130-400); RED CELL DISTRIBUTION WIDTH 15.2 % (10.0-14.5); WHITE BLOOD COUNT 7.7 10^3/uL (4.3-11.0)
[2019-08-18 06:21] LABS: CALCIUM 8.7 MG/DL (8.5-10.1); CREATININE SERUM 1.7 MG/DL (0.60-1.30); POTASSIUM 4.8 MMOL/L (3.6-5.0)
[2019-08-18 06:39] LABS: INR 5.4 (0.8-1.4); PROTHROMBIN TIME PATIENT 52.1 SEC (12.2-14.7)
[2019-08-18] MEDS: LEVOTHYROXINE 100 MCG (LEVOTHROID) TAB PO SCH (06:53)
--- NOTE | 2019-08-18 08:46 | Cardiology Progress Note ---
Subjective Date Seen by Provider: Aug 18, 2019 Time Seen by Provider: 08:41 Subjective/Events-last exam patient is laying down in bed, dyspneic, still complaining of cough and shortness of breath. No chest pain Review of Systems General: No Chills, No Night Sweats; Fatigue, Malaise; No Appetite, No Other HEENT: No Head Aches, No Visual Changes, No Eye Pain, No Ear Pain, No Dysphasia, No Sinus Congestion, No Post Nasal Drip, No Sore Throat, No Other Pulmonary: Dyspnea, Cough; No Pleuritic Chest Pain, No Other Cardiovascular: Edema; No: Chest Pain, Palpitations, Orthopnea, Paroxysmal Noc. Dyspnea, Lt Headedness, Other Focused Exam Lactate Level 08/15/19 23:08: Lactic Acid Level 1.68 Objective-Cardiology Exam Last Set of Vital Signs Vital Signs 08/18/19 08/18/19 04:00 07:00 Temp 36.6 Pulse 85 Resp 22 B/P (MAP) 106/54 (71) Pulse Ox 93 O2 Delivery Nasal Cannula O2 Flow Rate 5.00 Capillary Refill : Less Than 3 Seconds I&O Intake and Output 08/18/19 00:00 Intake Total 2542 ml Output Total 1000 ml Balance 1542 ml Intake Oral 1880 ml IV Total 662 ml Output Urine Total 1000 ml General: Alert, Oriented X3, Cooperative, Moderate Distress HEENT: Atraumatic, PERRLA Neck: Supple, No JVD, No Thyromegaly Lungs: Normal Air Movement, Other (bilateral rhonchi) Heart: Normal S1, Normal S2, Other (tachycardia, systolic murmur) Abdomen: Normal Bowel Sounds, Soft, No Tenderness, No Hepatosplenomegaly, No Masses Extremities: No Clubbing, No Cyanosis, No Tenderness/Swelling, Other (peripheral edema) Skin: No Rashes, Other (nonhealing ulcer on the leg) Neuro: Normal Speech, Normal Tone, Sensation Intact Psych/Mental Status: Mental Status NL, Mood NL Results Lab Laboratory Tests 08/18/19 05:00 08/18/19 05:40 A/P-Cardiology Admission Diagnosis Acute respiratory failure Pneumonia Congestive heart failure Coronary artery disease Assessment/Plan Acute respiratory failure secondary to congestive heart failure and pneumonia, on antibiotic, still significantly dyspneic, receiving diuretics and antib iotics. I'll consult Dr. Pichardo for evaluation. Congestive heart failure, acute on chronic left ventricular systolic dysfunction, nonischemic cardiomyopathy, valvular heart disease, planning to repeat 2-D echocardiogram Bilateral pleural effusion, continue on diuretics and monitor Permanent atrial fibrillation, underlying sinus node dysfunction, had permanent pacemaker. Continue to monitor History of chest pain, currently no active chest pain, still having shortness of breath. Acute on chronic renal insufficiency. Continue to monitor renal function. 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 Did balloon angioplasty to the right anterior tibial artery proximal portion has significant improvement the distal portion is occluded and did not improve, the posterior tibial artery and peroneal arteries were occluded with no collaterals in that area. The right SFA has multiple segment of moderate to severe stenosis, balloon angioplasty to the mid SFA with good results. Abdominal aorta has moderate disease, the left SFA has mild to moderate disease down to the trifurcation. Patient has nonhealing wounds to right ankle, underwent perip heral angiogram with Dr. Arias on July 08, 2019 with right SFA and anterior tibial artery angioplasty with good results. continue to monitor Severe mitral valve stenosis rheumatic valve, severe mitral regurgitation with severe pulmonary hypertension, estimated pulmonary artery pressure of 55 mmHg with severely dilated both atrium and prominent right ventricle with dilated IVC. discussed with Dr. Page, he recommended medical therapy at this time considering her to be high risk for morbidity and mortality if she undergoes valve surgery. She is not a candidate for mitral clip secondary to her mitral stenosis Was referred once again to Dr. Davila in January 2019 for evaluation for possible TMVR. Decided to continue with conservative management at this time. If patient becomes more symptomatic, reconsider for TMVR. Coronary artery disease, small vessel disease, nonobstructive disease, the prosthetic valve was functioning normally. Pulmonary artery pressure was 50/26, pulmonary capillary wedge pressure 35, right ventricular pressure 53/17. cardiac catheterization was done in September 2014. Stress test done in December 2016 showing no ischemia or infarction, EF 41 percent, continue to monitor Carotid stenosis, continue to monitor, followed by heart and vascular care. 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 followed and monitored by heart and vascular care. Hypertension, continue to monitor blood pressure Hyperlipidemia, continue on current medication monitor lipids Right hip fracture in May 2018 status post surgical repair, recovered well. Clinical Quality Measures DVT/VTE Risk/Contraindication: Risk Factor Score Per Nursin RFS Level Per Nursing on Admit: 4+=Very High PRANEETH SHUKLA MD Aug 18, 2019 08:46 POS
[2019-08-18] MEDS: MEXILETINE 150 MG (MEXITIL) CAPSULE PO SCH ×2 (09:04→21:05)
[2019-08-18] MEDS: guaiFENesin (MUCINEX) 600 MG TAB PO SCH ×2 (09:04→21:05)
[2019-08-18] MEDS: PANTOPRAZOLE 40 MG (PROTONIX) TAB PO SCH (09:04)
[2019-08-18] MEDS: DIGOXIN 0.125 MG (LANOXIN) TAB PO SCH (09:04)
[2019-08-18] MEDS: rOPINIRole 0.25 MG (REQUIP) TAB PO SCH ×3 (09:04→21:05)
--- NOTE | 2019-08-18 09:06 | Diagnostic Imaging Report ---
EXAMINATION: Chest 1 view HISTORY: Shortness of breath. COMPARISON: 08/17/2019. FINDINGS: Interval increase in central pulmonary vascular congestion and pulmonary edema. There is persistent cardiomegaly with a left pectoral ICD in place. Post-CABG changes are noted. There is calcified aortic atherosclerotic plaque. Bilateral pleural effusions are again seen with bibasilar opacities. No large pneumothorax. IMPRESSION: 1. Worsening pulmonary edema with central pulmonary vascular congestion and cardiomegaly. 2. Bilateral pleural effusions with bibasilar opacities, left greater than right. Dictated by: Dictated on workstation # [id number]
[2019-08-18] MEDS: DOCUSATE SODIUM 100 MG (COLACE) CAP PO SCH ×2 (09:20→21:05)
[2019-08-18] MEDS: SENNOSIDES 8.6 MG (SENOKOT) TAB PO SCH ×2 (09:21→21:05)
[2019-08-18] MEDS: FUROSEMIDE 40 MG (LASIX) TAB PO SCH ×2 (09:33→17:31)
[2019-08-18 09:57] LABS: ABG OXYGEN SATURATION 94 % (94-100); ABG PCO2 56 MMHG (35-45); ABG PO2 78 MMHG (79-93); ABG TCO2 28.2 MMOL/L (21.0-31.0)
[2019-08-18 09:59] LABS: ALLENS TEST YES-POS; INSPIRED O2 5 L; PATIENT TEMP 37.8; VENTILATOR NO
[2019-08-18] MEDS ORDERED: ZOLP5TAB7 PO (10:18)
[2019-08-18] MEDS ORDERED: FURO40TA4 PO (10:39)
--- NOTE | 2019-08-18 11:19 | Pulmonary Consultation ---
SHARON HUFF MED STUDENT 08/18/19 1118: History of Present Illness History of Present Illness Date Seen by Provider: Aug 18, 2019 Time Seen by Provider: 11:00 Date of Admission History of Present Illness The patient is a frail appearing 84 y/o female who is currently resting comfortably in bed in no apparent distress. She answers all questions appropriately and participates with the physical exam fully. She reports that she is feeling better today than yesterday. She is having a cough that is productive of yellow/gay sputum. She reports that the sputum production has decreased since yesterday. She denies fever, chills, or chest pain. She has no concerns at this time. Allergies and Home Medications Allergies Coded Allergies: Kamlesh Known Allergies (Verified Allergy, Unknown, 11/14/05) Home Medications Digoxin 125 Mcg Tablet, 125 MCG PO Q48H, (Reported) Furosemide 40 Mg Tablet, 40 MG PO BID, (Reported) Furosemide 40 Mg Tablet, 40 MG PO DAILY PRN for SWELLING, (Reported) TAKES TWICE DAILY- MAY TAKE 1 EXTRA TAB IF NEEDED FOR SWELLING Isosorbide Mononitrate 30 Mg Tab.er.24h, 15 MG PO DAILY, (Reported) TAKES 1/2 (30MG) TABLET Levothyroxine Sodium 100 Mcg Tablet, 100 MCG PO DAILY, (Reported) Loratadine 10 Mg Tablet, 10 MG PO DAILY, (Reported) Meclizine HCl 25 Mg Tablet, 25 MG PO TID PRN for DIZZINESS, (Reported) Metolazone 2.5 Mg Tablet, 2.5 MG PO PRN PRN for FLUID RETENTION, (Reported) TAKES ON MON AND FRI AND NEEDED AND DIRECTED Metolazone 2.5 Mg Tablet, 2.5 MG PO MON,FRI, (Reported) TAKES ON MON AND FRI AND NEEDED AND DIRECTED Metoprolol Succinate 25 Mg Tab.er.24h, 25 MG PO DAILY, (Reported) Mexiletine HCl 150 Mg Cap, 150 MG PO Q12H, (Reported) Nitroglycerin 0.4 Mg Tab.subl, 0.4 MG SL UD PRN for CHEST PAIN, (Reported) Pantoprazole Sodium 40 Mg Tablet.dr, 40 MG PO DAILY, (Reported) Potassium Chloride 10 Meq Capsule.er, 10 MEQ PO BID, (Reported) Ropinirole HCl 0.5 Mg Tablet, 0.5 MG PO TID, (Reported) Sacubitril/Valsartan 1 Each Tablet, 1 TAB PO BID, (Reported) Tramadol HCl 50 Mg Tablet, 50 MG PO Q6H PRN for PAIN-MODERATE, (Reported) Warfarin Sodium 2 Mg Tablet, 2 MG PO MoWe, (Reported) TAKES 2MG ON MON & WED, THEN 4 MG ALL OTHER DAYS (SUN,,,SUN,SAT) Warfarin Sodium 2 Mg Tablet, 4 MG PO SuTuThFrSa, (Reported) TAKES 2MG ON SUN & SUN, THEN 4 MG ALL OTHER DAYS (SUN,,,SUN,SAT) Zolpidem Tartrate 5 Mg Tablet, 5 MG PO HS PRN for SLEEP, (Reported) Past Bwqewhp-Gymzyy-Ilsevz Hx Past Med/Social Hx: Reviewed Nursing Past Med/Soc Hx Patient Social History Alcohol Use: Denies Use Recreational Drug Use: No Smoking Status: Never a Smoker 2nd Hand Smoke Exposure: Yes Recent Foreign Travel: No Contact w/Someone Who Travel: No Recent Infectious Disease Expo: No Recent Hopitalizations: No Physical Abuse: No Sexual Abuse: No Mistreated: No Fear: No Immunizations Up To Date Tetanus Booster (TDap): More than 5yrs PED Vaccines UTD: Yes Date of Pneumonia Vaccine: May 31, 2015 Date of Influenza Vaccine: Jun 03, 2018 Seasonal Allergies Seasonal Allergies: No Past Medical History Surgeries: Yes (pacemaker/defib, artifical aortic valve, R hip) Cardiac, Section, Gallbladder, Orthopedic, Valve Replacement Respiratory: Yes (WEARS O2 AT 3L/NC) Pneumonia Currently Using CPAP: No Currently Using BIPAP: No Cardiac: Yes (CHF) Cardiomyopathy, Coronary Artery Disease, Hypertension, Valvular Heart Disease Neurological: Yes Vertigo : No Reproductive Disorders: No [employer] History: Menopausal Sexually Transmitted Disease: No HIV/AIDS: No Genitourinary: No Gastrointestinal: No Gall Bladder Disease Musculoskeletal: No Arthritis Endocrine: Yes Hypothyroidsim HEENT: Yes Cataract Loss of Vision: Denies Hearing Impairment: Denies Cancer: No Did You Recieve Any Treatments: No Psychosocial: No Integumentary: Yes (venous stasis ulcers) Blood Disorders: Yes (anticoagulated) Adverse Reaction/Blood Tranf: No Family Medical History Family history: Diabetes mellitus 19 MOTHER Heart disease 19 MOTHER History of - respiratory disease 19 FATHER (PNEUMONIA- IN HIS 20'S) Myocardial infarction 19 MOTHER No Family History of: Abdominal aortic aneurysm Osage's disease Alcoholism Aphasia Cancer Cancer of colon Cataract Chest pain Congenital heart disease Congestive heart failure Cystic fibrosis Dementia Dysphagia Family history: Allergy Family history: Alzheimer's disease Family history: Arthritis Family history: Asthma Family history: Breast disease Family history: Cardiovascular disease Family history: Coronary thrombosis Family history: Gastrointestinal disease Family history: Glaucoma Family history: Hypertension Family history: Osteoporosis Family history: Thyroid disorder Headache Hearing loss Hereditary disease History of - anemia History of - disorder History of drug abuse Human immunodeficiency virus (HIV) seropositivity Hypercholesterolemia Infertile Kidney disease Parkinson's disease Prostate cancer Psychotic disorder Seizure disorder Stroke Tuberculosis Visual impairment No Pertinent Family Hx Review of Systems Time Seen by Provider: 11:00 Constitutional: No: Fever, Chills Respiratory: Cough, Shortness of breath, SOB with excertion Cardiovascular: No: Chest Pain Sepsis Event Evaluation Height, Weight, BMI Height: 5'6.00" Weight: 138lbs. 6.0oz. 62.523889ax; 22.22 BMI Method:Estimated Exam Exam Vital Signs Date Time Temp Pulse Resp B/P (MAP) Pulse Ox O2 Delivery O2 Flow Rate FiO2 08/18/19 09:58 37.8 85 93 08/18/19 09:50 98 Nasal Cannula 5.00 08/18/19 07:00 85 08/18/19 04:00 36.6 89 22 106/54 (71) 93 Nasal Cannula 5.00 08/18/19 01:42 96 Nasal Cannula 5.00 08/18/19 01:00 85 08/18/19 00:00 37.6 86 20 101/58 (72) 94 Nasal Cannula 5.00 08/17/19 22:48 36.7 90 93 08/17/19 22:00 37.9 08/17/19 20:50 37.8 87 18 124/58 (80) 97 Nasal Cannula 5.00 08/17/19 20:46 37.8 08/17/19 19:55 Nasal Cannula 3.50 08/17/19 19:22 93 Nasal Cannula 5.00 08/17/19 19:05 85 08/17/19 16:55 37.7 88 24 124/60 (81) 97 Nasal Cannula 5.50 08/17/19 14:46 90 Nasal Cannula 3.00 08/17/19 12:17 37.8 87 16 121/62 (81) 94 Nasal Cannula 5.00 08/17/19 12:14 88 08/17/19 11:39 94 Nasal Cannula 3.00 I & O 08/18/19 07:00 Intake Total 2342 ml Output Total 700 ml Balance 1642 ml Height & Weight Height: 5'6.00" Weight: 138lbs. 6.0oz. 62.615467gr; 22.22 BMI Method:Estimated General Appearance: No Apparent Distress, Anxious, Chronically ill HEENT: PERRL/EOMI, Pharynx Normal Neck: Normal Inspection, Supple Respiratory: Chest Non Tender, Crackles, Decreased Breath Sounds Cardiovascular: Regular Rate, Rhythm, Systolic Murmur (Mechanical heart sounds) Capillary Refill: Less Than 3 Seconds Gastrointestinal: non tender, soft Extremity: Non Tender, Inflammation, Pedal Edema Neurologic/Psychiatric: Alert, Oriented x3, No Motor/Sensory Deficits, Normal Mood/Affect Skin: Normal Color, Warm/Dry Lymphatic: No Adenopathy Results Lab Laboratory Tests 08/17/19 05:08 08/18/19 05:00 08/18/19 05:40 Assessment/Plan Assessment/Plan Healthcare associated pneumonia -continue cefepime Acute on chronic hypoxic respiratory failure -O2 therapy -titrate down to SPO2 of 90% -consider NIV to reduce hypercapnia Chronic heart failure with preserved ejection fraction -DC IV fluids -resume lasix -cardiology consulted DARA on CKD Continue to monitor closely Supratherapeutic INR -DC warfarin Paroxysmal atrial fibrillation INR 4.7 on admission, trended up to 5.6 this morning Continue to hold Coumadin Monitor closely and resume Coumadin when able continue digoxin Hypertension Hold antihypertensives with low blood pressures this morning CAD -cardiology consulted PAD GERD continue home meds ANT LOPEZ DO 08/19/19 0640: History of Present Illness History of Present Illness Time Seen by Provider: 16:00 History of Present Illness The patient is a frail appearing 84 y/o female who is currently resting comfortably in bed in no apparent distress. She answers all questions appropriately and participates with the physical exam fully. She reports that she is feeling better today than yesterday. She is having a cough that is productive of yellow/gay sputum. She reports that the sputum production has decreased since yesterday. She denies fever, chills, or chest pain. She has no concerns at this time. Allergies and Home Medications Allergies Coded Allergies: Kamlesh Known Allergies (Verified Allergy, Unknown, 11/14/05) Home Medications Digoxin 125 Mcg Tablet, 125 MCG PO Q48H, (Reported) Furosemide 40 Mg Tablet, 40 MG PO BID, (Reported) Furosemide 40 Mg Tablet, 40 MG PO DAILY PRN for SWELLING, (Reported) TAKES TWICE DAILY- MAY TAKE 1 EXTRA TAB IF NEEDED FOR SWELLING Isosorbide Mononitrate 30 Mg Tab.er.24h, 15 MG PO DAILY, (Reported) TAKES 1/2 (30MG) TABLET Levothyroxine Sodium 100 Mcg Tablet, 100 MCG PO DAILY, (Reported) Loratadine 10 Mg Tablet, 10 MG PO DAILY, (Reported) Meclizine HCl 25 Mg Tablet, 25 MG PO TID PRN for DIZZINESS, (Reported) Metolazone 2.5 Mg Tablet, 2.5 MG PO PRN PRN for FLUID RETENTION, (Reported) TAKES ON MON AND FRI AND NEEDED AND DIRECTED Metolazone 2.5 Mg Tablet, 2.5 MG PO MON,FRI, (Reported) TAKES ON MON AND FRI AND NEEDED AND DIRECTED Metoprolol Succinate 25 Mg Tab.er.24h, 25 MG PO DAILY, (Reported) Mexiletine HCl 150 Mg Cap, 150 MG PO Q12H, (Reported) Nitroglycerin 0.4 Mg Tab.subl, 0.4 MG SL UD PRN for CHEST PAIN, (Reported) Pantoprazole Sodium 40 Mg Tablet.dr, 40 MG PO DAILY, (Reported) Potassium Chloride 10 Meq Capsule.er, 10 MEQ PO BID, (Reported) Ropinirole HCl 0.5 Mg Tablet, 0.5 MG PO TID, (Reported) Sacubitril/Valsartan 1 Each Tablet, 1 TAB PO BID, (Reported) Tramadol HCl 50 Mg Tablet, 50 MG PO Q6H PRN for PAIN-MODERATE, (Reported) Warfarin Sodium 2 Mg Tablet, 2 MG PO Mo, (Reported) TAKES 2MG ON SUN & WED, THEN 4 MG ALL OTHER DAYS (SUN,,,FRI,SAT) Warfarin Sodium 2 Mg Tablet, 4 MG PO SuTuThFrSa, (Reported) TAKES 2MG ON MON & WED, THEN 4 MG ALL OTHER DAYS (SUN,,,SUN,SAT) Zolpidem Tartrate 5 Mg Tablet, 5 MG PO HS PRN for SLEEP, (Reported) Past Rwdhehc-Saxnqv-Doaien Hx Family Medical History Family history: Diabetes mellitus 19 MOTHER Heart disease 19 MOTHER History of - respiratory disease 19 FATHER (PNEUMONIA- IN HIS 20'S) Myocardial infarction 19 MOTHER No Family History of: Abdominal aortic aneurysm Osage's disease Alcoholism Aphasia Cancer Cancer of colon Cataract Chest pain Congenital heart disease Congestive heart failure Cystic fibrosis Dementia Dysphagia Family history: Allergy Family history: Alzheimer's disease Family history: Arthritis Family history: Asthma Family history: Breast disease Family history: Cardiovascular disease Family history: Coronary thrombosis Family history: Gastrointestinal disease Family history: Glaucoma Family history: Hypertension Family history: Osteoporosis Family history: Thyroid disorder Headache Hearing loss Hereditary disease History of - anemia History of - disorder History of drug abuse Human immunodeficiency virus (HIV) seropositivity Hypercholesterolemia Infertile Kidney disease Parkinson's disease Prostate cancer Psychotic disorder Seizure disorder Stroke Tuberculosis Visual impairment Exam Exam General Appearance: No Apparent Distress, Anxious, Chronically ill HEENT: PERRL/EOMI, Pharynx Normal Neck: Normal Inspection, Supple Respiratory: Chest Non Tender, Crackles, Decreased Breath Sounds Cardiovascular: Regular Rate, Rhythm, Systolic Murmur (Mechanical heart sounds) Gastrointestinal: non tender, soft Extremity: Inflammation, Pedal Edema Neurologic/Psychiatric: Alert, Oriented x3, No Motor/Sensory Deficits, Normal Mood/Affect Skin: Normal Color, Warm/Dry Assessment/Plan Assessment/Plan Acute on chronic hypoxic respiratory failure -O2 therapy -s/p Lasix - pt is feeling improved after lasix -Continue to monitor close -BiPap PRN Healthcare associated pneumonia -continue cefepime Chronic heart failure with preserved ejection fraction - lasix -cardiology consulted DARA on CKD Continue to monitor closely Supratherapeutic INR -DC warfarin -Monitor closely -Hb stable thus far Paroxysmal atrial fibrillation digoxin -Cardiology following Hypertension CAD -cardiology consulted PAD GERD continue home meds SHARON HUFF MED STUDENT Aug 18, 2019 11:18 ANT DELGADO DO Aug 19, 2019 06:40 POS
--- NOTE | 2019-08-18 11:44 | NUR ---
SPOKE WITH PT (SHE HAD A MED LIST) WELL GETTING A MED LIST FROM [facility] TO COMPLETE THE MED REC. I HAVE PUT A CALL IN TO DR CALI REGARDING HER WARFARIN DOSE-PT SAID SHE HAS IT WRITTEN DOWN AT HOME BC THE DIRECTIONS CHANGE OFTEN AND CANT REMEMBER HOW SHE IS TAKING IT CURRENTLY. I HAD TO LEAVE A MESSAGE BUT WILL FOLLOW UP WITH THEM IN THE AFTERNOON Addendum: 08/18/19 at 1414 by RAN SANCHEZ [facility] THE PT WAS UNSURE HOW SHE TAKES HER MEDS, SHE SAYS SHE JUST TAKES THEM HOW THE DR TELLS HER. I USED THE LIST FROM [facility] AND COMPARED IT TO DR. WOODRUFF RECORDS TO COMPLETE THE MED REC. SPOKE WITH NICOL WITH DR. WOODRUFF OFFICE- SHE WAS ABLE TO TELL ME THE PATIENTS DIRECTIONS ON THE WARFARIN- 2MG ON SUNDAY AND SUNDAY AND 4MG ALL OTHER DAYS. ALSO I HAD HER VERIFY THE DIGOXIN: SHE NOW TAKES IT EVERY OTHER DAY. THE OFFICE HAD CLOPIDOGREL ON HER ACTIVE MED LIST- BUT I LET THEM KNOW IT HAS NOT BEEN FILLED SINCE 03-17-2019 FOR A 90 DAY SUPPLY, PT THOUGHT SHE HAD BEEN TAKEN OFF OF THIS BUT [facility] OFFICE HAS NO RECORD OF THIS. FOR THESE REASONS I LEFT IT OFF THE MED REC. PT DOES NOT TAKE ANY OTC MEDS. Addendum: 08/18/19 at 1418 by RAN SANCHEZ CPhT THE FOLLOWING ARE FILL DATES ACCORDING TO [facility]: 05-16-2019 POTASSIUM #180/90DS 06-16-2019 PROTONIX #90/90DS 06-27-2019 METOPROLOL #90/90DS 07-25-2019 ISOSORBIDE #15/30DS 07-28-2019 ZOLPIDEM #30/30DS 07-28-2019 ENTRESTO #180/90DS 07-28-2019 LEVOTHYROXINE #30/30DS 07-28-2019 LORATADINE # 30/30DS 07-30-2019 TRAMADOL #30 07-30-2019 METOLAZONE #8 08-05-2019 FUROSEMIDE #220 08-05-2019 MEXILETINE #180/90DS 08-05-2019 ROPINIROLE #90/30DS
[2019-08-18] MEDS ORDERED: FUROSEMIDE 40 MG/4 ML INJ (LASIX) IVP ONE (11:45)
[2019-08-18] MEDS ORDERED: FUROSEMIDE 40 MG/4 ML INJ (LASIX) ONE (11:51)
--- NOTE | 2019-08-18 11:58 | Progress Note - Hospitalist ---
Subjective HPI/CC On Admission Date Seen by Provider: Aug 18, 2019 Time Seen by Provider: 11:52 Anisha Mcfarland is an 84-year-old female with past medical history of hypertension, hyperlipidemia, chronic kidney disease, mechanical aortic valve, mitral valve stenosis, diastolic heart failure, coronary artery disease, peripheral artery disease, who presented with shortness of breath. She reports that she is feeling very short of breath and was getting winded with minimal activity. She was also having fevers and chills at home. She was measured at 101 while still at home. She had a mild cough but it was nonproductive. She h ad one episode of nausea and vomiting yesterday morning after eating a banana and a Ivorian cookie. She was able to eat some broth last night with out issue. She is not feeling hungry this morning. She denies abdominal pain and diarrhea. She denies dysuria. She denies chest pain. Subjective/Events-last exam Pt reports chest heaviness this morning. Improved with a breathing treatment but still slightly short of breath. Able to cough up some sputum. Focused Exam Lactate Level 08/15/19 23:08: Lactic Acid Level 1.68 Objective Exam Vital Signs Vital Signs Date Time Temp Pulse Resp B/P (MAP) Pulse Ox O2 Delivery O2 Flow Rate FiO2 08/18/19 09:58 37.8 85 93 08/18/19 09:50 Nasal Cannula 5.00 08/18/19 04:00 22 106/54 (71) Capillary Refill : Less Than 3 Seconds General Appearance: Chronically ill, Mild Distress, Thin Respiratory: Lungs Clear, Other (dsypnea) Cardiovascular: Regular Rate, Rhythm, Systolic Murmur Gastrointestinal: Normal Bowel Sounds, Non Tender, Soft Neurologic/Psychiatric: Alert, Oriented x3 Results/Procedures Lab Laboratory Tests 08/18/19 05:00 08/18/19 05:40 Patient resulted labs reviewed. Imaging: Reviewed Imaging Report Assessment/Plan Assessment and Plan Assess & Plan/Chief Complaint Healthcare associated pneumonia Acute on chronic hypoxic respiratory failure Chronic heart failure with preserved ejection fraction Afebrile, WBC normal Requiring 5 L via nasal cannula at rest but looks dyspneic - Pulm consulted, appreciate recs Continue cefepime Continue lasix Cardiology consulted, appreciate recs DARA on CKD Creatinine 1.7 today, trending back up Use diuretics with caution Continue to monitor closely and avoid nephrotoxins as able Supratherapeutic INR Mechanical aortic valve Paroxysmal atrial fibrillation INR 5.4 today Monitor closely and resume Coumadin when able, will not give Vitamin K or reverse given mechanical valve continue digoxin Hypertension Hold antihypertensives with low blood pressures this morning CAD PAD Mitral valve stenosis GERD clinically significant, no acute management needs, continue home meds DVT prophylaxis: Supratherapeutic INR Clinical Quality Measures DVT/VTE Risk/Contraindication: Risk Factor Score Per Nursin RFS Level Per Nursing on Admit: 4+=Very High VENANCIO ARREAGA MD Aug 18, 2019 11:58 POS
[2019-08-18] MEDS: CEFEPIME INJECTION 2,000 MG in WATER (STERILE) FOR INJECTION 20 ML IV SCH (12:09)
--- NOTE | 2019-08-18 13:29 | NUR ---
Pt is [facility]. Documentation Specialist provided prayer and Communion.
[2019-08-18] MEDS ORDERED: DIGO125T PO (14:07)
[2019-08-18] MEDS: LORazepam 0.5 MG (ATIVAN) TABLET PO PRN (19:45)
--- NOTE | 2019-08-18 20:10 | NUR ---
O2 saturation at 83% on 3L NC. RT notified and states that she can go up to 6L if necessary, but did not assess pt. Pt was on 5L NC the previous night, but reduced to 3L on day shift. Increased 02 to 4L NC at this time.
[2019-08-19] VITALS (13 sets, daily range): BP systolic 96–121; BP diastolic 47–63
--- NOTE | 2019-08-19 | NUR ---
O2 increased to 5L NC at this time to maintain O2 saturation at around 91-92%. Will continue to monitor. Son at bedside.
[2019-08-19] MEDS: RT-ALBUTEROL/IPRATROPIUM 3 ML (DUONEB) VIAL INH SCH ×6 (03:23→21:55)
--- NOTE | 2019-08-19 04:13 | NUR ---
Respiratory notified of O2 saturation at 84% on 5L NC - When asked if RT administered 2am breathing treatment she states she was "in CT" and unavailable. Reinterated to RT to let nursing know when unable to give treatment so that nursing can administer.
--- NOTE | 2019-08-19 04:27 | NUR ---
PRN breathing treatment given. O2 saturation at 99%. Oxygen turned down to 4L per NC. Will continue to monitor.
--- NOTE | 2019-08-19 04:45 | NUR ---
rt was called to give tx for "low spo2" rt was unavailable at that time, nurse stated she could give tx, When rt was avaiable found pt with spo2 98% on 5 l nc with low flow bubbler.spoke with seasonal warehouse associate. Addendum: 08/19/19 at 0446 by KATHERINE SCHMIDT RT Amended: Links added.
[2019-08-19 05:06] LABS: BASOPHILS % (AUTO) 1 % (0-10); EOSINOPHILS # (AUTO) 0.1 10^3/uL (0.0-0.3); EOSINOPHILS % (AUTO) 2 % (0-10); HEMATOCRIT 30 % (35-52); HEMOGLOBIN 9.1 G/DL (11.5-16.0); LYMPHOCYTES # (AUTO) 0.7 X 10^3 (1.0-4.0); LYMPHOCYTES % (AUTO) 9 % (12-44); MEAN CORPUSCULAR HEMOGLOBIN 32 PG (25-34); MEAN CORPUSCULAR HGB CONC 30 G/DL (32-36); MEAN CORPUSCULAR VOLUME 107 FL (80-99); MONOCYTES # (AUTO) 0.8 X 10^3 (0.0-1.0); MONOCYTES % (AUTO) 12 % (0-12); NEUTROPHILS # (AUTO) 5.4 X 10^3 (1.8-7.8); NEUTROPHILS % (AUTO) 76 % (42-75); PLATELET COUNT 130 10^3/uL (130-400)
--- NOTE | 2019-08-19 05:20 | NUR ---
Dr. Pichardo notified that pt is maintaining ) Addendum: 08/19/19 at 0536 by FRANCISCO JAVIER SIMPSON RN Dr. Pichardo notified that pts o2 saturation is around 84-85% on 6L NC. New order rec for Vapotherm and ABG. - respiratory notified.
[2019-08-19 05:23] LABS: CALCIUM 8.8 MG/DL (8.5-10.1); CREATININE SERUM 1.83 MG/DL (0.60-1.30)
--- NOTE | 2019-08-19 05:36 | NUR ---
Britney (RT) here to put pt on vapotherm and do abg.
[2019-08-19 05:43] LABS: INR 6.7 (0.8-1.4); PROTHROMBIN TIME PATIENT 61.8 SEC (12.2-14.7)
[2019-08-19 05:47] LABS: ABG BASE EXCESS 1.4 MMOL/L (-2.5-2.5); ABG OXYGEN SATURATION 93 % (94-100); ABG PCO2 54 MMHG (35-45); ABG PO2 65 MMHG (79-93); ABG TCO2 28.7 MMOL/L (21.0-31.0)
[2019-08-19 05:48] LABS: ABG PH 7.32 (7.37-7.43); ALLENS TEST YES-POS; INSPIRED O2 6L; PATIENT TEMP 36.6; VENTILATOR NO
[2019-08-19] MEDS: LEVOTHYROXINE 100 MCG (LEVOTHROID) TAB PO SCH (05:57)
[2019-08-19] MEDS: FUROSEMIDE 40 MG (LASIX) TAB PO SCH (05:57)
--- NOTE | 2019-08-19 08:12 | Cardiology Progress Note ---
Subjective Date Seen by Provider: Aug 19, 2019 Time Seen by Provider: 08:07 Subjective/Events-last exam Patient is on Bipap, dyspnea and fatigue Review of Systems General: No Chills, No Night Sweats; Fatigue, Malaise; No Appetite, No Other HEENT: No Head Aches, No Visual Changes, No Eye Pain, No Ear Pain, No Dysphasia, No Sinus Congestion, No Post Nasal Drip, No Sore Throat, No Other Pulmonary: Dyspnea, Cough; No Pleuritic Chest Pain, No Other Cardiovascular: No: Chest Pain, Palpitations, Orthopnea, Paroxysmal Noc. Dys pnea, Edema, Lt Headedness, Other Objective-Cardiology Exam Last Set of Vital Signs Vital Signs 08/19/19 08/19/19 08/19/19 04:15 05:45 06:57 Temp 36.8 Pulse 75 Resp 19 B/P (MAP) 121/58 (79) Pulse Ox 95 O2 Delivery Vapotherm O2 Flow Rate 80.00 FiO2 100 Capillary Refill : Less Than 3 Seconds I&O Intake and Output 08/19/19 00:00 Intake Total 1250 ml Output Total 400 ml Balance 850 ml Intake Oral 1250 ml Output Urine Total 400 ml # Voids 1 General: Alert, Oriented X3, Cooperative, Moderate Distress HEENT: Atraumatic, PERRLA Neck: Supple, No JVD, No Thyromegaly Lungs: Normal Air Movement, Other (bilateral rhonchi, wheezing) Heart: Other (tachycardia, systolic murmur, metallic click) Abdomen: Normal Bowel Sounds, Soft, No Tenderness, No Hepatosplenomegaly, No Masses Extremities: No Clubbing, No Cyanosis, No Tenderness/Swelling, Other (peripheral edema) Skin: No Rashes, Other (nonhealing ulcer on the leg) Neuro: Normal Speech, Normal Tone, Sensation Intact Psych/Mental Status: Mental Status NL, Mood NL Results Lab Laboratory Tests 08/19/19 04:32 A/P-Cardiology Admission Diagnosis Acute respiratory failure Pneumonia Congestive heart failure Coronary artery disease Assessment/Plan Acute respiratory failure secondary to congestive heart failure and pneumonia, on antibiotic, currently on BiPAP, continue on antibiotic and Lasix 40 twice a day Congestive heart failure, acute on chronic left ventricular systolic dysfunction, nonischemic cardiomyopathy, valvular heart disease, echocardiogram done on August 18, 2019 showing ejection fraction 35-40 percent, left atrium is severely enlarged 8.3 cm, severe mitral valve stenosis, moderate severe mitral regurgitation, prosthetic valve in the aortic position functioning normally, severe pulmonary hypertension with PA pressure 65 mmHg. Continue on diuretics and monitor Bilateral pleural effusion, continue on diuretics and monitor Permanent atrial fibrillation, underlying sinus node dysfunction, had permanent pacemaker. Continue to monitor History of chest pain, currently no active chest pain, still having shortness of breath. Acute on chronic renal insufficiency. Continue to monitor renal function. 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 Did balloon angioplasty to the right anterior tibial artery proximal portion has significant improvement the distal portion is occluded and did not improve, the posterior tibial artery and peroneal arteries were occluded with no collaterals in that area. The right SFA has multiple segment of moderate to severe stenosis, balloon angioplasty to the mid SFA with good results. Abdominal aorta has moderate disease, the left SFA has mild to moderate disease down to the trifurcation. Patient has nonhealing wounds to right ankle, underwent peripheral angiogram with Dr. Arias on July 08, 2019 with right SFA and anterior tibial artery angioplasty with good results. continue to monitor Severe mitral valve stenosis rheumatic valve, severe mitral regurgitation with severe pulmonary hypertension, estimated pulmonary artery pressure of 55 mmHg with severely dilated both atrium and prominent right ventricle with dilated IVC. discussed with Dr. Page, he recommended medical therapy at this time considering her to be high risk for morbidity and mortality if she undergoes valve surgery. She is not a candidate for mitral clip secondary to her mitral stenosis Was referred once again to Dr. Davila in January 2019 for evaluation for possible TMVR. Decided to continue with conservative management at this time. Possible TMVR, was referred to [facility] previously, will arrange for reevaluation Coronary artery disease, small vessel disease, nonobstructive disease, the prosthetic valve was functioning normally. Pulmonary artery pressure was 50/26, pulmonary capillary wedge pressure 35, right ventricular pressure 53/17. cardiac catheterization was done in September 2014. Stress test done in December 2016 showing no ischemia or infarction, EF 41 percent, continue to monitor Carotid stenosis, continue to monitor, followed by heart and vascular care. 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 followed and monitored by heart and vascular care. Hypertension, continue to monitor blood pressure Hyperlipidemia, continue on current medication monitor lipids Right hip fracture in May 2018 status post surgical repair, recovered well. Clinical Quality Measures DVT/VTE Risk/Contraindication: Risk Factor Score Per Nursin RFS Level Per Nursing on Admit: 4+=Very High PRANEETH SHUKLA MD Aug 19, 2019 08:12 POS
--- NOTE | 2019-08-19 08:47 | Diagnostic Imaging Report ---
EXAMINATION: Chest radiograph, portable AP view. DATE: 08/19/2019 7:18 AM. INDICATION: 84-year-old female, shortness of breath. COMPARISON: August 18, 2019. FINDINGS: There is redemonstrated cardiomegaly. There are median sternotomy wires. There is a left-sided cardiac assist device with leads. There is multifocal bilateral lung consolidation which is unchanged. IMPRESSION: Redemonstrated is cardiomegaly and nonspecific multifocal lung consolidation bilaterally which are unchanged since the comparison exam. There are potential bilateral pleural effusions. Dictated by: Dictated on workstation # [id number]
[2019-08-19] MEDS: PANTOPRAZOLE 40 MG (PROTONIX) TAB PO SCH (08:49)
[2019-08-19] MEDS: rOPINIRole 0.25 MG (REQUIP) TAB PO SCH ×3 (08:50→20:38)
[2019-08-19] MEDS: DOCUSATE SODIUM 100 MG (COLACE) CAP PO SCH ×2 (08:50→20:38)
[2019-08-19] MEDS: MEXILETINE 150 MG (MEXITIL) CAPSULE PO SCH ×2 (08:50→22:17)
[2019-08-19] MEDS: guaiFENesin (MUCINEX) 600 MG TAB PO SCH ×2 (08:50→20:36)
[2019-08-19] MEDS: SENNOSIDES 8.6 MG (SENOKOT) TAB PO SCH ×2 (08:50→20:38)
[2019-08-19] MEDS: DIGOXIN 0.125 MG (LANOXIN) TAB PO SCH (08:53)
[2019-08-19] MEDS: ONDANSETRON 4 MG/2 ML (SDV) Z0FRAN IV PRN (09:05)
[2019-08-19] MEDS: LORazepam 0.5 MG (ATIVAN) TABLET PO PRN ×2 (11:17→22:39)
[2019-08-19] MEDS: CEFEPIME INJECTION 2,000 MG in WATER (STERILE) FOR INJECTION 20 ML IV SCH (11:54)
--- NOTE | 2019-08-19 13:00 | NUR ---
HELD REQUIP BECAUSE OF SOA AND ON BI-PAP.
--- NOTE | 2019-08-19 13:12 | NUR ---
RD ASSESSMENT PMHx: HTN; HLD; CKD; CAD; PAD; GERD; hypothyroidism PT INTERACTION: Pt was asleep during nutrition assessment. Note son was present at bedside. Son states pt's current appetite appears poor and has been that way since 08/15. Note pt avg PO intake of 32% x2d, per chart review. Son states pt tries to follow a low-sodium diet at home, and has poor teeth. Son states some episodes of nausea/vomiting prior to admit, but no occurrences since. Son states no issues with constipation/diarrhea that he is aware of, and states last BM was 08/18, consisting of a small volume. Note pt currently on bowel regimen of colace BID; and senna BID, per chart review. Son states pt is not tolerating current supplementation order of Ensure Plus at this time. "We try to get her to drink them, but she doesn't like them." Son states pt's wt status fluctuates around 10# either way. Note recent 15# wt gain x3mon, per chart review. ABNORMAL NUTRITION-RELATED LAB VALUES LOW: HIGH: BUN 38; cr 1.83 Est. kcal needs: 6936-3564 kcal | 25-30 kcal/kg Est. Pro needs: 55-69 g Pro | 0.8-1.0 g Pro/kg PES STATEMENT: Inadequate oral intake (NI-2.1) related to loss of appetite | nausea | vomiting as evidenced by pt (son) interview | avg PO intake 32% x2d INTERVENTION: Continue with current diet order of 2000 mg Sodium diet. Switch current supplementation order from Ensure Plus to Ensure Clear (vary) with meals TID for pt tolerance. Provides 240 kcal and 8 g Pro per serving. Will continue to follow and reassess as pt needs and status change. MONITOR/EVALUATE: PO Intake; Plan of Care; Hydration Status; Weight Status; Lab Values Katherine Gonzales, MS, RD, LD
--- NOTE | 2019-08-19 15:04 | Progress Note - Hospitalist ---
Subjective HPI/CC On Admission Date Seen by Provider: Aug 19, 2019 Time Seen by Provider: 13:30 Anisha Mcfarland is an 84-year-old female with past medical history of hypertension, hyperlipidemia, chronic kidney disease, mechanical aortic valve, mitral valve stenosis, diastolic heart failure, coronary artery disease, peripheral artery disease, who presented with shortness of breath. She reports that she is feeling very short of breath and was getting winded with minimal activity. She was also having fevers and chills at home. She was measured at 101 while still at home. She had a mild cough but it was nonproductive. She h ad one episode of nausea and vomiting yesterday morning after eating a banana and a [place] cookie. She was able to eat some broth last night with out issue. She is not feeling hungry this morning. She denies abdominal pain and diarrhea. She denies dysuria. She denies chest pain. Subjective/Events-last exam Pt was placed on BiPAP this AM after failing Vapotherm. Was doing well but came off to eat and is now quite short of breath and was just placed back on BiPAP and thinks it is helping. Objective Exam Vital Signs Vital Signs Date Time Temp Pulse Resp B/P (MAP) Pulse Ox O2 Delivery O2 Flow Rate FiO2 08/19/19 13:36 90 21 99 35.00 08/19/19 08:00 36.4 119/56 (77) Nasal Cannula 08/19/19 08:00 95 Capillary Refill : Less Than 3 Seconds General Appearance: No Apparent Distress, WD/WN Respiratory: Rhonci, Other (tachypneic) Cardiovascular: Regular Rate, Rhythm, Systolic Murmur Gastrointestinal: Normal Bowel Sounds, Non Tender, Soft Neurologic/Psychiatric: Alert, Oriented x3 Results/Procedures Lab Laboratory Tests 08/19/19 04:32 Patient resulted labs reviewed. Imaging: Reviewed Imaging Report Assessment/Plan Assessment and Plan Assess & Plan/Chief Complaint Healthcare associated pneumonia Acute on chronic hypoxic respiratory failure Chronic heart failure with preserved ejection fraction Afebrile, WBC normal Now on BiPAP- discussed with Dr Pichardo and will transfer to the ICU - Pulm consulted, appreciate recs Continue cefepime Continue lasix IV BID Cardiology consulted, appreciate recs DARA on CKD Creatinine 1.8 today, trending back up Use diuretics with caution Continue to monitor closely and avoid nephrotoxins as able Supratherapeutic INR Mechanical aortic valve Paroxysmal atrial fibrillation INR up again today Monitor closely and resume Coumadin when able, will not give Vitamin K or reverse given mechanical valve - No evidence of bleeding continue digoxin Hypertension Hold antihypertensives with low blood pressures this morning CAD PAD Mitral valve stenosis GERD clinically significant, no acute management needs, continue home meds DVT prophylaxis: Supratherapeutic INR Clinical Quality Measures DVT/VTE Risk/Contraindication: Risk Factor Score Per Nursin RFS Level Per Nursing on Admit: 4+=Very High VENANCIO ARREAGA MD Aug 19, 2019 15:04 POS
--- NOTE | 2019-08-19 15:32 | Pulmonary Progress Note ---
Subjective Time Seen by a Provider: 05:22 Subjective/Events-last exam Pt is requiring BiPAP and more oxygen. Sepsis Event Evaluation Height, Weight, BMI Height: 5'6.00" Weight: 138lbs. 6.0oz. 62.438231hg; 22.22 BMI Method:Estimated Exam Exam Vital Signs Date Time Temp Pulse Resp B/P (MAP) Pulse Ox O2 Delivery O2 Flow Rate FiO2 08/19/19 13:36 90 21 99 35.00 08/19/19 12:49 90 40 99 40.00 08/19/19 09:40 90 24 99 60.00 08/19/19 08:00 36.4 88 20 119/56 (77) 96 Nasal Cannula 6.00 08/19/19 08:00 NIV Bilevel 95 08/19/19 06:57 75 19 95 80.00 08/19/19 06:48 80 08/19/19 05:45 94 Vapotherm 40.00 100 08/19/19 04:15 36.8 85 24 121/58 (79) 91 Nasal Cannula 6.00 08/19/19 01:00 87 08/18/19 23:50 36.7 85 19 101/56 (71) 91 Nasal Cannula 3.00 08/18/19 23:03 91 Nasal Cannula 4.00 08/18/19 20:30 37.1 89 22 110/53 (72) 90 Nasal Cannula 3.00 08/18/19 20:10 Nasal Cannula 3.00 08/18/19 19:24 94 Nasal Cannula 3.00 08/18/19 19:00 85 08/18/19 16:40 37.2 87 24 108/58 (75) 90 Nasal Cannula 3.00 I & O 08/19/19 07:00 Intake Total 1250 ml Output Total 625 ml Balance 625 ml Height & Weight Height: 5'6.00" Weight: 138lbs. 6.0oz. 62.923972xi; 22.22 BMI Method:Estimated General Appearance: WD/WN, Anxious, Chronically ill, Moderate Distress HEENT: PERRL/EOMI, Pharynx Normal Neck: Normal Inspection, Supple Respiratory: Decreased Breath Sounds, Rhonci, Other (tachypneic) Cardiovascular: Regular Rate, Rhythm, Systolic Murmur Capillary Refill: Less Than 3 Seconds Gastrointestinal: non tender, soft Extremity: Inflammation, Pedal Edema Neurologic/Psychiatric: Alert, Oriented x3 Skin: Normal Color, Warm/Dry Lymphatic: No Adenopathy Results Lab Laboratory Tests 08/18/19 05:00 08/18/19 05:40 08/19/19 04:32 Assessment/Plan Assessment/Plan Acute on chronic hypoxic respiratory failure -O2 therapy -Transfer pt to ICU secondary to persistent respiratory failure -BiPAP - lasix -Continue to monitor close -BiPap PRN Healthcare associated pneumonia -continue cefepime Chronic heart failure with preserved ejection fraction - lasix -cardiology consulted DARA on CKD Continue to monitor closely Supratherapeutic INR -DC warfarin -Monitor closely -Hb stable thus far Paroxysmal atrial fibrillation digoxin -Cardiology following Hypertension CAD -cardiology consulted PAD GERD continue home meds ANT LOPEZ DO Aug 19, 2019 15:32
[2019-08-19 15:59] LABS: ABG BASE EXCESS 1.8 MMOL/L (-2.5-2.5); ABG OXYGEN SATURATION 55 % (94-100); ABG PCO2 56 MMHG (35-45); ABG TCO2 29.3 MMOL/L (21.0-31.0)
--- NOTE | 2019-08-19 16:00 | NUR ---
TO ICU 10 PER BED. REPORT GIVEN TO ELIZABETH DALE
[2019-08-19 16:04] LABS: ABG PH 7.31 (7.37-7.43)
[2019-08-19 16:05] LABS: ABG PO2 35 MMHG (79-93); ALLENS TEST POSITIVE; INSPIRED O2 35%; PATIENT TEMP 36.6; VENTILATOR NO
[2019-08-19] MEDS: FUROSEMIDE 40 MG/4 ML INJ (LASIX) IVP SCH (18:11)
[2019-08-20] VITALS (24 sets, daily range): BP systolic 97–149; BP diastolic 44–91
[2019-08-20] MEDS: ACETAMINOPHEN 325 MG TABLET PO PRN ×2 (02:15→19:47)
[2019-08-20 05:11] LABS: POTASSIUM 4.6 MMOL/L (3.6-5.0)
[2019-08-20 05:12] LABS: CALCIUM 8.9 MG/DL (8.5-10.1); CREATININE SERUM 1.71 MG/DL (0.60-1.30)
[2019-08-20 05:21] LABS: INR 6.3 (0.8-1.4); PROTHROMBIN TIME PATIENT 58.3 SEC (12.2-14.7)
[2019-08-20 05:23] LABS: MAGNESIUM 2.1 MG/DL (1.6-2.4); PHOSPHORUS 3.2 MG/DL (2.3-4.7)
--- NOTE | 2019-08-20 05:26 | Pulmonary Progress Note ---
Subjective Time Seen by a Provider: 05:24 Subjective/Events-last exam Pt is still requiring BIPAP. Family at bedside. Sepsis Event Evaluation Height, Weight, BMI Height: 5'6.00" Weight: 138lbs. 6.0oz. 62.169696md; 22.22 BMI Method:Estimated Exam Exam Vital Signs Date Time Temp Pulse Resp B/P (MAP) Pulse Ox O2 Delivery O2 Flow Rate FiO2 08/20/19 01:00 90 21 97/47 (64) 92 NIV Bilevel 30.00 08/20/19 00:30 85 19 99/44 (62) 95 NIV Bilevel 30.00 08/20/19 00:00 85 103/50 (67) NIV Bilevel 30.00 08/20/19 00:00 97 NIV Bilevel 35 08/20/19 00:00 37.2 08/19/19 23:00 84 116/63 (80) NIV Bilevel 30.00 08/19/19 22:00 85 98/47 (64) NIV Bilevel 30.00 08/19/19 21:55 79 20 94 35.00 08/19/19 21:00 90 98/47 (64) NIV Bilevel 30.00 08/19/19 20:45 86 102/54 (70) NIV Bilevel 30.00 08/19/19 20:00 96 NIV Bilevel 35 08/19/19 19:25 85 08/19/19 19:00 85 11 96/52 (67) 99 NIV Bilevel 30.00 08/19/19 18:53 80 23 94 30.00 08/19/19 18:00 85 23 102/48 (66) 98 NIV Bilevel 35.00 08/19/19 17:00 85 22 105/57 (73) 98 NIV Bilevel 35.00 08/19/19 16:15 90 20 111/60 (77) 96 NIV Bilevel 35.00 08/19/19 16:06 36.5 88 28 111/60 (77) 94 NIV Bilevel 35.00 08/19/19 13:36 90 21 99 35.00 08/19/19 12:49 90 40 99 40.00 08/19/19 12:43 87 08/19/19 09:40 90 24 99 60.00 08/19/19 08:00 36.4 88 20 119/56 (77) 96 Nasal Cannula 6.00 08/19/19 08:00 NIV Bilevel 95 08/19/19 06:57 75 19 95 80.00 08/19/19 06:48 80 08/19/19 05:45 94 Vapotherm 40.00 100 I & O 08/20/19 07:00 Intake Total 745 ml Output Total 625 ml Balance 120 ml Height & Weight Height: 5'6.00" Weight: 138lbs. 6.0oz. 62.417984nl; 22.22 BMI Method:Estimated General Appearance: WD/WN, Anxious, Chronically ill, Moderate Distress HEENT: PERRL/EOMI, Pharynx Normal Neck: Normal Inspection, Supple Respiratory: Decreased Breath Sounds, Rhonci, Other (tachypneic) Cardiovascular: Regular Rate, Rhythm, Systolic Murmur Capillary Refill: Less Than 3 Seconds Gastrointestinal: non tender, soft Extremity: Inflammation, Pedal Edema Neurologic/Psychiatric: Alert, Oriented x3 Skin: Normal Color, Warm/Dry Lymphatic: No Adenopathy Results Lab Laboratory Tests 08/18/19 05:40 08/19/19 04:32 08/20/19 03:22 Assessment/Plan Assessment/Plan Acute on chronic hypoxic respiratory failure -O2 therapy -Transfer pt to ICU secondary to persistent respiratory failure -BiPAP - lasix -Continue to monitor close -BiPap PRN Healthcare associated pneumonia -continue cefepime Chronic heart failure with preserved ejection fraction - lasix -cardiology consulted DARA on CKD Continue to monitor closely Supratherapeutic INR -DC warfarin -Monitor closely -Hb stable thus far Hypotension -Monitor Paroxysmal atrial fibrillation digoxin -Cardiology following Hypertension CAD -cardiology consulted PAD GERD continue home meds ANT LOPEZ DO Aug 20, 2019 05:26
[2019-08-20 05:33] LABS: HEMATOCRIT 39 % (35-52); HEMOGLOBIN 8.8 G/DL (11.5-16.0); MEAN CORPUSCULAR HEMOGLOBIN 32 PG (25-34); WHITE BLOOD COUNT 6.2 10^3/uL (4.3-11.0)
[2019-08-20 05:34] LABS: BASOPHILS % (AUTO) 0 % (0-10); EOSINOPHILS # (AUTO) 0.2 10^3/uL (0.0-0.3); EOSINOPHILS % (AUTO) 3 % (0-10); LYMPHOCYTES # (AUTO) 0.7 X 10^3 (1.0-4.0); LYMPHOCYTES % (AUTO) 11 % (12-44); MEAN CORPUSCULAR HGB CONC 30 G/DL (32-36); MEAN CORPUSCULAR VOLUME 107 FL (80-99); MEAN PLATELET VOLUME 11.1 FL (7.4-10.4); MONOCYTES # (AUTO) 0.8 X 10^3 (0.0-1.0); MONOCYTES % (AUTO) 12 % (0-12); NEUTROPHILS # (AUTO) 4.6 X 10^3 (1.8-7.8); NEUTROPHILS % (AUTO) 74 % (42-75); PLATELET COUNT 127 10^3/uL (130-400); RED CELL DISTRIBUTION WIDTH 14.7 % (10.0-14.5)
[2019-08-20 05:58] LABS: ABG OXYGEN SATURATION 98 % (94-100); ABG PCO2 52 MMHG (35-45); ABG PO2 100 MMHG (79-93); ABG TCO2 28.7 MMOL/L (21.0-31.0)
[2019-08-20] MEDS: LEVOTHYROXINE 100 MCG (LEVOTHROID) TAB PO SCH ×2 (06:00→06:43)
[2019-08-20 06:02] LABS: ABG PH 7.34 (7.37-7.43)
[2019-08-20 06:03] LABS: ALLENS TEST YES-POS; INSPIRED O2 35%; PATIENT TEMP 37.2; VENTILATOR YES
[2019-08-20] MEDS: RT-ALBUTEROL/IPRATROPIUM 3 ML (DUONEB) VIAL INH SCH ×5 (06:17→21:09)
[2019-08-20] MEDS: KCL 20 MEQ TAB (K-DUR) PO SCH (06:36)
[2019-08-20] MEDS: FUROSEMIDE 40 MG/4 ML INJ (LASIX) IVP SCH ×2 (06:36→18:03)
[2019-08-20] MEDS: MAGNESIUM 1 GM/100 ML IVPB 100 ML IV SCH (06:36)
[2019-08-20] MEDS: POTASSIUM CL 10MEQ/50ML IVPB 50 ML IV SCH (06:36)
--- NOTE | 2019-08-20 08:50 | Diagnostic Imaging Report ---
INDICATION: Pneumonia. TIME OF EXAM: 8:02 AM Correlation is made with prior chest one day earlier. Heart remains enlarged but stable. Changes of median sternotomy. Cardiac defibrillator is in place. Infiltrate in the right lung persists and is similar to prior exam. There are some mild infiltrates in the left lung as well but to a lesser degree compared with the right. Overall appearance is very similar to yesterday. No effusion or pneumothorax seen. IMPRESSION: Bilateral infiltrates, right greater. Overall appearance is similar to examination one day earlier. Dictated by: Dictated on workstation # [id number]
--- NOTE | 2019-08-20 09:15 | Cardiology Progress Note ---
Subjective Date Seen by Provider: Aug 20, 2019 Time Seen by Provider: 09:10 Subjective/Events-last exam Patient is in bed, still having shortness of breath, on BiPAP, no chest pain. Still lethargic Review of Systems General: No Chills, No Night Sweats; Fatigue, Malaise; No Appetite, No Other HEENT: No Head Aches, No Visual Changes, No Eye Pain, No Ear Pain, No Dysp hasia, No Sinus Congestion, No Post Nasal Drip, No Sore Throat, No Other Pulmonary: Dyspnea; No Cough, No Pleuritic Chest Pain, No Other Cardiovascular: No: Chest Pain, Palpitations, Orthopnea, Paroxysmal Noc. Dyspnea, Edema, Lt Headedness, Other Objective-Cardiology Exam Last Set of Vital Signs Vital Signs 08/20/19 08/20/19 08/20/19 08/20/19 08/20/19 06:00 06:17 08:15 08:17 08:35 Temp 36.4 Pulse 81 Resp 17 B/P (MAP) 100/68 (79) Pulse Ox 94 O2 Delivery Vapotherm O2 Flow Rate 40.00 45.00 FiO2 35 Capillary Refill : Less Than 3 Seconds I&O Intake and Output 08/20/19 00:00 Intake Total 945 ml Output Total 850 ml Balance 95 ml Intake Oral 945 ml Output Urine Total 850 ml General: Alert, Oriented X3, Cooperative, Moderate Distress HEENT: Atraumatic, PERRLA Neck: Supple, No JVD, No Thyromegaly Lungs: Normal Air Movement, Other (bilateral rhonchi, wheezing) Heart: Normal S1, Normal S2, Other (tachycardia, systolic murmur, metallic click) Abdomen: Normal Bowel Sounds, Soft, No Tenderness, No Hepatosplenomegaly, No Masses Extremities: No Clubbing, No Cyanosis, No Tenderness/Swelling, Other (peripheral edema) Skin: No Rashes, Other (nonhealing ulcer on the leg) Neuro: Normal Speech, Normal Tone, Sensation Intact Psych/Mental Status: Mental Status NL, Mood NL Results Lab Laboratory Tests 08/20/19 03:22 A/P-Cardiology Admission Diagnosis Acute respiratory failure Pneumonia Congestive heart failure Coronary artery disease Assessment/Plan Acute respiratory failure secondary to congestive heart failure and pneumonia, on antibiotic, currently on BiPAP, continue on antibiotic and monitor Congestive heart failure, acute on chronic left ventricular systolic dysfunction, nonischemic cardiomyopathy, valvular heart disease, echocardiogram done on August 18, 2019 showing ejection fraction 35-40 percent, left atrium is severely enlarged 8.3 cm, severe mitral valve stenosis, moderate severe mitral regurgitation, prosthetic valve in the aortic position functioning normally, severe pulmonary hypertension with PA pressure 65 mmHg. Continue on diuretics and monitor Bilateral pleural effusion, continue on diuretics and monitor Permanent atrial fibrillation, underlying sinus node dysfunction, had permanent pacemaker. Continue to monitor History of chest pain, currently no active chest pain, still having shortness of breath. Acute on chronic renal insufficiency. Continue to monitor renal function. 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 Did balloon angioplasty to the right anterior tibial artery proximal portion has significant improvement the distal portion is occluded and did not improve, the posterior tibial artery and peroneal arteries were occluded with no collaterals in that area. The right SFA has multiple segment of moderate to severe stenosis, balloon angioplasty to the mid SFA with good results. Abdominal aorta has moderate disease, the left SFA has mild to moderate disease down to the trifurcation. Patient has nonhealing wounds to right ankle, underwent peripheral angiogram with Dr. Arias on July 08, 2019 with right SFA and anterior tibial artery angioplasty with good results. continue to monitor Severe mitral valve stenosis rheumatic valve, severe mitral regurgitation with severe pulmonary hypertension, estimated pulmonary artery pressure of 55 mmHg with severely dilated both atrium and prominent right ventricle with dilated IVC. discussed with Dr. Page, he recommended medical therapy at this time considering her to be high risk for morbidity and mortality if she undergoes valve surgery. She is not a candidate for mitral clip secondary to her mitral stenosis Was referred once again to Dr. Davila in January 2019 for evaluation for possible TMVR. Decided to continue with conservative management at this time. Possible TMVR, was referred to [facility] previously, will arrange for reevaluation Coronary artery disease, small vessel disease, nonobstructive disease, the prosthetic valve was functioning normally. Pulmonary artery pressure was 50/26, pulmonary capillary wedge pressure 35, right ventricular pressure 53/17. cardiac catheterization was done in September 2014. Stress test done in December 2016 showing no ischemia or infarction, EF 41 percent, continue to monitor Carotid stenosis, continue to monitor, followed by heart and vascular care. 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 followed and monitored by heart and vascular care. Hypertension, continue to monitor blood pressure Hyperlipidemia, continue on current medication monitor lipids Right hip fracture in May 2018 status post surgical repair, recovered well. Clinical Quality Measures DVT/VTE Risk/Contraindication: Risk Factor Score Per Nursin RFS Level Per Nursing on Admit: 4+=Very High PRANEETH SHUKLA MD Aug 20, 2019 09:15
[2019-08-20] MEDS: rOPINIRole 0.25 MG (REQUIP) TAB PO SCH ×3 (09:25→19:47)
[2019-08-20] MEDS: PANTOPRAZOLE 40 MG (PROTONIX) TAB PO SCH (09:25)
[2019-08-20] MEDS: guaiFENesin (MUCINEX) 600 MG TAB PO SCH ×2 (09:26→19:46)
[2019-08-20] MEDS: DIGOXIN 0.125 MG (LANOXIN) TAB PO SCH (09:27)
[2019-08-20] MEDS: DOCUSATE SODIUM 100 MG (COLACE) CAP PO SCH ×2 (09:27→19:46)
[2019-08-20] MEDS: SENNOSIDES 8.6 MG (SENOKOT) TAB PO SCH ×2 (09:27→19:46)
[2019-08-20] MEDS: MEXILETINE 150 MG (MEXITIL) CAPSULE PO SCH ×2 (09:42→19:46)
--- NOTE | 2019-08-20 10:09 | NUR ---
decreased o2 from 35% to 30%; patient desatted into the 80's so O2 was increased back up to 35%
--- NOTE | 2019-08-20 13:06 | Progress Note - Hospitalist ---
Subjective HPI/CC On Admission Date Seen by Provider: Aug 20, 2019 Time Seen by Provider: 13:02 Anisha Mcfarland is an 84-year-old female with past medical history of hypertension, hyperlipidemia, chronic kidney disease, mechanical aortic valve, mitral valve stenosis, diastolic heart failure, coronary artery disease, peripheral artery disease, who presented with shortness of breath. She reports that she is feeling very short of breath and was getting winded with minimal activity. She was also having fevers and chills at home. She was measured at 101 while still at home. She had a mild cough but it was nonproductive. She h ad one episode of nausea and vomiting yesterday morning after eating a banana and a [place] cookie. She was able to eat some broth last night with out issue. She is not feeling hungry this morning. She denies abdominal pain and diarrhea. She denies dysuria. She denies chest pain. Subjective/Events-last exam Pt just put on BiPAP and she reports it helps with her breathing and is more comfortable with it now. Daughter asked me if I thought she would survive this illness and if she was suffering. Objective Exam Vital Signs Vital Signs Date Time Temp Pulse Resp B/P (MAP) Pulse Ox O2 Delivery O2 Flow Rate FiO2 08/20/19 12:00 85 20 134/56 (82) 95 Vapotherm 40.00 45.00 08/20/19 12:00 36.9 08/20/19 11:39 35 Capillary Refill : Less Than 3 Seconds General Appearance: Chronically ill Respiratory: No Accessory Muscle Use, No Respiratory Distress, Rhonci Cardiovascular: Regular Rate, Rhythm, Systolic Murmur Gastrointestinal: Normal Bowel Sounds, Non Tender, Soft Neurologic/Psychiatric: Alert, Oriented x3 Results/Procedures Lab Laboratory Tests 08/20/19 03:22 Patient resulted labs reviewed. Imaging: Reviewed Imaging Report Assessment/Plan Assessment and Plan Assess & Plan/Chief Complaint Healthcare associated pneumonia Acute on chronic hypoxic respiratory failure Chronic heart failure with preserved ejection fraction Cont BiPAP - Pulm consulted, appreciate recs Continue cefepime Continue lasix IV BID Cardiology consulted, appreciate recs DARA on CKD Creatinine 1.7- stable Use diuretics with caution Continue to monitor closely and avoid nephrotoxins as able Supratherapeutic INR Mechanical aortic valve Paroxysmal atrial fibrillation INR now trending down- check again in AM Monitor closely and resume Coumadin when able, will not give Vitamin K or reverse given mechanical valve - No evidence of bleeding continue digoxin Hypertension Hold antihypertensives with low blood pressures this morning and diuresis CAD PAD Mitral valve stenosis GERD clinically significant, no acute management needs, continue home meds DVT prophylaxis: Supratherapeutic INR Clinical Quality Measures DVT/VTE Risk/Contraindication: Risk Factor Score Per Nursin RFS Level Per Nursing on Admit: 4+=Very High VENANCIO ARREAGA MD Aug 20, 2019 1:06 pm
[2019-08-20] MEDS: CEFEPIME INJECTION 2,000 MG in WATER (STERILE) FOR INJECTION 20 ML IV SCH ×2 (13:20→13:22)
[2019-08-20] MEDS: LORazepam 0.5 MG (ATIVAN) TABLET PO PRN (19:47)
[2019-08-21] VITALS (29 sets, daily range): BP systolic 101–135; BP diastolic 47–74
[2019-08-21] MEDS: LORazepam 0.5 MG (ATIVAN) TABLET PO PRN ×2 (01:57→20:27)
[2019-08-21 03:09] LABS: ABG BASE EXCESS 2.2 MMOL/L (-2.5-2.5); ABG OXYGEN SATURATION 90 % (94-100); ABG PCO2 58 MMHG (35-45); ABG PO2 62 MMHG (79-93); ABG TCO2 29.8 MMOL/L (21.0-31.0)
[2019-08-21 03:15] LABS: ALLENS TEST YES-POS; INSPIRED O2 45% BIPAP; PATIENT TEMP 36.8; VENTILATOR NO
[2019-08-21] MEDS: RT-ALBUTEROL/IPRATROPIUM 3 ML (DUONEB) VIAL INH SCH ×6 (03:43→22:19)
[2019-08-21 04:28] LABS: BASOPHILS % (AUTO) 1 % (0-10); EOSINOPHILS # (AUTO) 0.2 10^3/uL (0.0-0.3); EOSINOPHILS % (AUTO) 4 % (0-10); HEMATOCRIT 28 % (35-52); HEMOGLOBIN 8.4 G/DL (11.5-16.0); LYMPHOCYTES # (AUTO) 0.6 X 10^3 (1.0-4.0); LYMPHOCYTES % (AUTO) 11 % (12-44); MEAN CORPUSCULAR HEMOGLOBIN 32 PG (25-34); MEAN CORPUSCULAR HGB CONC 30 G/DL (32-36); MEAN CORPUSCULAR VOLUME 107 FL (80-99); MEAN PLATELET VOLUME 11.1 FL (7.4-10.4); MONOCYTES # (AUTO) 0.7 X 10^3 (0.0-1.0); MONOCYTES % (AUTO) 12 % (0-12); NEUTROPHILS % (AUTO) 72 % (42-75); PLATELET COUNT 124 10^3/uL (130-400); RED CELL DISTRIBUTION WIDTH 14.9 % (10.0-14.5); WHITE BLOOD COUNT 5.5 10^3/uL (4.3-11.0)
--- NOTE | 2019-08-21 04:30 | Pulmonary Progress Note ---
SHARON HUFF MED STUDENT 08/21/19 0430: Subjective Date Seen by a Provider: Aug 21, 2019 Time Seen by a Provider: 04:20 Subjective/Events-last exam The patient is resting comfortably on the Bipap. Interview is conducted with her son. He reports that she has been feeling overall improved and she has had de creasing shortness of breath. She is still having a cough productive of greenish brown sputum but has decreased in volume. He reports that she has not complained of pain and has no concerns at this time. Sepsis Event Evaluation Height, Weight, BMI Height: 5'6.00" Weight: 138lbs. 6.0oz. 62.090632bm; 22.22 BMI Method:Estimated Exam Exam Vital Signs Date Time Temp Pulse Resp B/P (MAP) Pulse Ox O2 Delivery O2 Flow Rate FiO2 08/21/19 04:00 96 NIV Bilevel 45 08/21/19 03:43 74 20 96 45.00 08/21/19 03:00 85 21 125/55 (78) 96 Vapotherm 40.00 45.00 08/21/19 02:00 84 29 122/56 (78) 96 Vapotherm 40.00 45.00 08/21/19 01:00 85 23 122/56 (78) 96 Vapotherm 40.00 45.00 08/21/19 01:00 85 08/21/19 00:00 85 17 124/64 (84) 97 Vapotherm 40.00 45.00 08/21/19 00:00 99 NIV Bilevel 45 08/20/19 23:00 85 17 125/56 (79) 100 Vapotherm 40.00 45.00 08/20/19 22:00 85 18 126/59 (81) 100 Vapotherm 40.00 45.00 08/20/19 21:09 86 25 91 45.00 08/20/19 21:00 85 19 117/68 (84) 98 Vapotherm 40.00 45.00 08/20/19 20:08 84 22 91 45.00 08/20/19 20:00 96 Vapotherm 45 08/20/19 20:00 87 25 131/67 (88) 94 Vapotherm 40.00 45.00 08/20/19 20:00 37.6 08/20/19 19:38 95 Vapotherm 35.00 45 08/20/19 19:00 86 08/20/19 19:00 87 32 149/81 (103) 99 Vapotherm 40.00 45.00 08/20/19 18:00 86 46 131/91 (104) 96 Vapotherm 40.00 45.00 08/20/19 17:00 85 40 118/58 (78) 94 Vapotherm 40.00 45.00 08/20/19 16:31 94 Vapotherm 45 08/20/19 16:00 85 35 131/53 (79) 94 Vapotherm 40.00 45.00 08/20/19 16:00 37.2 08/20/19 15:00 85 35 137/62 (87) 96 Vapotherm 40.00 45.00 08/20/19 14:00 80 35 125/55 (78) 93 Vapotherm 40.00 45.00 08/20/19 13:54 94 Vapotherm 35.00 45 08/20/19 13:00 85 42 125/55 (78) 92 Vapotherm 40.00 45.00 08/20/19 12:46 87 08/20/19 12:00 85 20 134/56 (82) 95 Vapotherm 40.00 45.00 08/20/19 12:00 36.9 08/20/19 11:39 94 NIV Bilevel 35 08/20/19 11:00 85 22 130/56 (80) 96 Vapotherm 40.00 45.00 08/20/19 10:00 85 40 122/76 (91) 95 Vapotherm 40.00 45.00 08/20/19 09:57 85 23 95 35.00 08/20/19 08:35 Vapotherm 40.00 45.00 08/20/19 08:17 94 NIV Bilevel 35 08/20/19 08:15 36.4 08/20/19 08:15 36.4 81 17 106/54 (71) 95 NIV Bilevel 6.00 6.00 08/20/19 06:42 90 08/20/19 06:17 81 17 94 35.00 08/20/19 06:00 86 23 100/68 (79) 94 NIV Bilevel 35.00 08/20/19 05:00 87 19 115/58 (77) 97 NIV Bilevel 35.00 I & O 08/21/19 07:00 Intake Total 1220 ml Output Total 1025 ml Balance 195 ml Height & Weight Height: 5'6.00" Weight: 138lbs. 6.0oz. 62.926481je; 22.22 BMI Method:Estimated General Appearance: No Apparent Distress, Chronically ill, Thin HEENT: PERRL/EOMI, Pharynx Normal Neck: Normal Inspection, Supple Respiratory: No Accessory Muscle Use, No Respiratory Distress Cardiovascular: Regular Rate, Rhythm, Systolic Murmur Capillary Refill: Less Than 3 Seconds Gastrointestinal: non tender, soft Extremity: Inflammation, Pedal Edema Neurologic/Psychiatric: Alert, Oriented x3 Skin: Normal Color, Warm/Dry Lymphatic: No Adenopathy Results Lab Laboratory Tests 08/19/19 04:32 08/20/19 03:22 Assessment/Plan Assessment/Plan Acute on chronic hypoxic respiratory failure -O2 therapy -Transfer pt to ICU secondary to persistent respiratory failure - lasix -Continue to monitor close -BiPap PRN Healthcare associated pneumonia -continue cefepime Chronic heart failure with preserved ejection fraction - lasix -cardiology consulted DARA on CKD Continue to monitor closely Supratherapeutic INR -DC warfarin -Monitor closely -Hb stable thus far Hypotension -Monitor Paroxysmal atrial fibrillation digoxin -Cardiology following Hypertension CAD -cardiology consulted PAD GERD continue home meds ANT LOPEZ DO 08/21/19 0621: Subjective Time Seen by a Provider: 06:17 Subjective/Events-last exam Currently requiring BiPAP. Son is at bedside. ABG appears worse. Currently pt is a full code. I discussed code options with son and hospice/comfort care with son. He is going to discuss this with other family. Exam Exam General Appearance: No Apparent Distress HEENT: PERRL/EOMI, Pharynx Normal Neck: Normal Inspection Respiratory: No Accessory Muscle Use, No Respiratory Distress Cardiovascular: Regular Rate, Rhythm, Systolic Murmur Gastrointestinal: non tender, soft Extremity: Inflammation, Pedal Edema Neurologic/Psychiatric: Alert, Oriented x3 Skin: Normal Color, Warm/Dry Lymphatic: No Adenopathy Assessment/Plan Assessment/Plan Acute on chronic hypoxic respiratory failure -O2 therapy -ABG shows worsening respiratory acidosis -Start solumedrol - lasix -Continue to monitor close -BiPap PRN Healthcare associated pneumonia -continue cefepime Chronic heart failure with preserved ejection fraction - lasix -cardiology consulted DARA on CKD Continue to monitor closely Supratherapeutic INR -DC warfarin - -INR is up to 8 -Will give 5mg of Vit K PO x 1 -Monitor closely -Hb stable thus far Hypotension -Monitor Paroxysmal atrial fibrillation digoxin -Cardiology following Hypertension CAD -cardiology consulted PAD GERD continue home meds SHARON HFUF MED STUDENT Aug 21, 2019 04:30 ANT LOPEZ DO Aug 21, 2019 06:21
[2019-08-21 04:48] LABS: CALCIUM 8.5 MG/DL (8.5-10.1); CREATININE SERUM 1.61 MG/DL (0.60-1.30); MAGNESIUM 2.2 MG/DL (1.6-2.4); PHOSPHORUS 3.3 MG/DL (2.3-4.7); POTASSIUM 4.6 MMOL/L (3.6-5.0)
[2019-08-21] MEDS: POTASSIUM CL 10MEQ/50ML IVPB 50 ML IV SCH (04:52)
[2019-08-21] MEDS: KCL 20 MEQ TAB (K-DUR) PO SCH (04:52)
[2019-08-21] MEDS: MAGNESIUM 1 GM/100 ML IVPB 100 ML IV SCH (04:52)
[2019-08-21 04:55] LABS: INR 8.5 (0.8-1.4); PROTHROMBIN TIME PATIENT 74.1 SEC (12.2-14.7)
[2019-08-21] MEDS: LEVOTHYROXINE 100 MCG (LEVOTHROID) TAB PO SCH (06:21)
[2019-08-21] MEDS: FUROSEMIDE 40 MG/4 ML INJ (LASIX) IVP SCH ×2 (06:21→19:05)
[2019-08-21] MEDS ORDERED: VITAMIN K 1 MG/ML ORAL SOLN 1 ML SYRINGE PO NR (06:30)
[2019-08-21] MEDS ORDERED: methylPREDNISolone 40 MG/ML (Solu-MEDROL) VIAL ONE (06:30)
[2019-08-21] MEDS ORDERED: methylPREDNISolone 125 MG (Solu-MEDROL) VIAL IVP NR (06:30)
[2019-08-21] MEDS ORDERED: PHYTONADIONE (VIT. K) 10 MG/ML AMP ONE (06:30)
--- NOTE | 2019-08-21 07:37 | Diagnostic Imaging Report ---
CLINICAL INDICATION: Patient with shortness of breath, pneumonia and hypoxia. Exam: Portable chest x-ray upright view. Comparisons: Portable chest x-ray dated 08/20/2019. Findings: Stable cardiomegaly. Stable appearance of both lung whitehead with moderate infiltrate in the right upper lobe and small infiltrate in right lower lobe. There are patchy airspace opacities in left perihilar region. Pulmonary vasculature is stable and does not appear significantly congested. There is blunting of both costophrenic angle regions which may represent small pleural effusions. There is no pneumothorax. There is stable postoperative change to the chest with sternotomy wires and cardiac pacemaker/AICD seen. The remainder of this exam shows no significant interval change compared to the prior study of comparison. IMPRESSION: 1. There is no significant change in the chest x-ray findings with bilateral lung infiltrates (right side more than the left). 2: There is blunting of both costophrenic angle regions and small pleural effusions cannot be completely excluded. 3: There is stable cardiomegaly. Dictated by: Dictated on workstation # [id number]
--- NOTE | 2019-08-21 07:43 | Cardiology Progress Note ---
Subjective Date Seen by Provider: Aug 21, 2019 Time Seen by Provider: 07:41 Subjective/Events-last exam Patient is laying down in bed, on BiPAP, feeling better, denied any chest pain. No significant edema Review of Systems General: No Chills, No Night Sweats; Fatigue, Malaise; No Appetite, No Other HEENT: No Head Aches, No Visual Changes, No Eye Pain, No Ear Pain, No Dysphasia, No Sinus Congestion, No Post Nasal Drip, No Sore Throat, No Other Pulmonary: Dyspnea, Cough; No Pleuritic Chest Pain, No Other Cardiovascular: No: Chest Pain, Palpitations, Orthopnea, Paroxysmal Noc. Dyspnea, Edema, Lt Headedness, Other Objective-Cardiology Exam Last Set of Vital Signs Vital Signs 08/20/19 08/21/19 08/21/19 08/21/19 08/21/19 20:00 04:00 06:00 06:41 07:00 Temp 37.6 Pulse 85 Resp 20 B/P (MAP) 117/53 (74) Pulse Ox 92 O2 Delivery Vapotherm O2 Flow Rate 30.00 FiO2 45 Capillary Refill : Less Than 3 Seconds I&O Intake and Output 08/21/19 00:00 Intake Total 1245 ml Output Total 1075 ml Balance 170 ml Intake Oral 1245 ml Output Urine Total 1075 ml General: Alert, Oriented X3, Cooperative, Mild Distress, Moderate Distress HEENT: Atraumatic, PERRLA Neck: Supple, No JVD, No Thyromegaly Lungs: Normal Air Movement, Other (bilateral rhonchi, wheezing) Heart: Normal S1, Normal S2, Other (tachycardia, systolic murmur, metallic click) Abdomen: Normal Bowel Sounds, Soft, No Tenderness, No Hepatosplenomegaly, No Masses Extremities: No Clubbing, No Cyanosis, No Tenderness/Swelling, Other (peripheral edema) Skin: No Rashes, Other (nonhealing ulcer on the leg) Neuro: Normal Speech, Normal Tone, Sensation Intact Psych/Mental Status: Mental Status NL, Mood NL Results Lab Laboratory Tests 08/21/19 03:21 A/P-Cardiology Admission Diagnosis Acute respiratory failure Pneumonia Congestive heart failure Coronary artery disease Assessment/Plan Acute respiratory failure secondary to pneumonia, receiving antibiotic and cur rently on BiPAP. Managed by Dr. Pichardo. Congestive heart failure, acute on chronic left ventricular systolic dysfunction, nonischemic cardiomyopathy, valvular heart disease, echocardiogram done on August 18, 2019 showing ejection fraction 35-40 percent, left atrium is severely enlarged 8.3 cm, severe mitral valve stenosis, moderate severe mitral regurgitation, prosthetic valve in the aortic position functioning normally, severe pulmonary hypertension with PA pressure 65 mmHg. Continue on diuretics and monitor Bilateral pleural effusion, continue on diuretics and monitor Permanent atrial fibrillation, underlying sinus node dysfunction, had permanent pacemaker. Continue to monitor Acute on chronic renal insufficiency. Continue to monitor renal function. History of aortic valve replacement in 1998 with metallic valve on Coumadin, continue to monitor [id number] Score of 6, yearly risk of stroke without oral anticoagulation is 9.8 percent, maintained on Coumadin, supratherapeutic INR, continue to hold and monitor, if there is any sign of bleeding will consider FFP and vitamin K otherwise monitor INR Peripheral vascular disease, patient has venous insufficiency on the right side that required ablation, peripheral angiogram May 2017, intervention to the anterior tibial artery, the wound has healed then developed a new ulcer after a trauma. Did balloon angioplasty to the right anterior tibial artery proximal portion has significant improvement the distal portion is occluded and did not improve, the posterior tibial artery and peroneal arteries were occluded with no collaterals in that area. The right SFA has multiple segment of moderate to severe stenosis, balloon angioplasty to the mid SFA with good results. Abdominal aorta has moderate disease, the left SFA has mild to moderate disease down to the trifurcation. Patient has nonhealing wounds to right ankle, underwent peripheral angiogram with Dr. Arias on July 08, 2019 with right SFA and anterior tibial artery angioplasty with good results. continue to monitor Severe mitral valve stenosis rheumatic valve, severe mitral regurgitation with severe pulmonary hypertension, estimated pulmonary artery pressure of 55 mmHg with severely dilated both atrium and prominent right ventricle with dilated IVC. discussed with Dr. Page, he recommended medical therapy at this time considering her to be high risk for morbidity and mortality if she undergoes valve surgery. She is not a candidate for mitral clip secondary to her mitral stenosis Was referred once again to Dr. Davila in January 2019 for evaluation for possible TMVR. Decided to continue with conservative management at this time. Possible TMVR, was referred to [facility] previously, will arrange for reevaluation Coronary artery disease, small vessel disease, nonobstructive disease, the pr osthetic valve was functioning normally. Pulmonary artery pressure was 50/26, pulmonary capillary wedge pressure 35, right ventricular pressure 53/17. cardiac catheterization was done in September 2014. Stress test done in December 2016 showing no ischemia or infarction, EF 41 percent, continue to monitor Carotid stenosis, continue to monitor, followed by heart and vascular care. 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 followed and monitored by heart and vascular care. Hypertension, continue to monitor blood pressure Hyperlipidemia, continue on current medication monitor lipids Right hip fracture in May 2018 status post surgical repair, recovered well. I had a long discussion with the family, there are inquiring about long-term treatment plan, I recommended continuing with aggressive treatment and antibiotic treatment for her pneumonia, recommended considering DO NOT RESUSCITATE Clinical Quality Measures DVT/VTE Risk/Contraindication: Risk Factor Score Per Nursin RFS Level Per Nursing on Admit: 4+=Very High PRANEETH SHUKLA MD Aug 21, 2019 07:43
[2019-08-21] MEDS: PANTOPRAZOLE 40 MG (PROTONIX) TAB PO SCH (08:26)
[2019-08-21] MEDS: DOCUSATE SODIUM 100 MG (COLACE) CAP PO SCH ×2 (08:26→19:31)
[2019-08-21] MEDS: rOPINIRole 0.25 MG (REQUIP) TAB PO SCH ×3 (08:26→19:30)
[2019-08-21] MEDS: MEXILETINE 150 MG (MEXITIL) CAPSULE PO SCH ×2 (08:26→19:31)
[2019-08-21] MEDS: SENNOSIDES 8.6 MG (SENOKOT) TAB PO SCH ×2 (08:26→19:31)
[2019-08-21] MEDS: DIGOXIN 0.125 MG (LANOXIN) TAB PO SCH (08:26)
[2019-08-21] MEDS: guaiFENesin (MUCINEX) 600 MG TAB PO SCH ×2 (08:26→19:31)
[2019-08-21] MEDS ORDERED: morphine (ROXINOL) 10 MG/0.5 ML oral conc 0.5 ML PO PRN (09:45)
--- NOTE | 2019-08-21 10:15 | Progress Note - Hospitalist ---
Subjective HPI/CC On Admission Date Seen by Provider: Aug 21, 2019 Time Seen by Provider: 09:44 Anisha Mcfarland is an 84-year-old female with past medical history of hypertension, hyperlipidemia, chronic kidney disease, mechanical aortic valve, mitral valve stenosis, diastolic heart failure, coronary artery disease, peripheral artery disease, who presented with shortness of breath. She reports that she is feeling very short of breath and was getting winded with minimal activity. She was also having fevers and chills at home. She was measured at 101 while still at home. She had a mild cough but it was nonproductive. She h ad one episode of nausea and vomiting yesterday morning after eating a banana and a [place] cookie. She was able to eat some broth last night with out issue. She is not feeling hungry this morning. She denies abdominal pain and diarrhea. She denies dysuria. She denies chest pain. Subjective/Events-last exam Pt reports feeling great today. She is off BiPAP. Despite feeling great she looks very short of breath. Discussed with her and her son at bedside regarding goals of care. She at first states she wants "everything" done and upon further discussion with her and family and my medical recommendation that she would not benefit from CPR. Objective Exam Vital Signs Vital Signs Date Time Temp Pulse Resp B/P (MAP) Pulse Ox O2 Delivery O2 Flow Rate FiO2 08/21/19 09:00 85 27 135/55 (81) 91 Vapotherm 40.00 45.00 08/21/19 08:00 37.1 08/21/19 04:00 45 Capillary Refill : Less Than 3 Seconds General Appearance: Chronically ill, Mild Distress Respiratory: No Accessory Muscle Use, No Respiratory Distress, Decreased Breath Sounds Cardiovascular: Regular Rate, Rhythm, Systolic Murmur Gastrointestinal: Normal Bowel Sounds, Non Tender, Soft Neurologic/Psychiatric: Alert, Oriented x3 Results/Procedures Lab Laboratory Tests 08/21/19 03:21 Patient resulted labs reviewed. Imaging: Reviewed Imaging Report Assessment/Plan Assessment and Plan Assess & Plan/Chief Complaint Healthcare associated pneumonia Acute on chronic hypoxic respiratory failure Chronic heart failure with preserved ejection fraction Cont BiPAP prn, currently on vapotherm - Pulm consulted, appreciate recs Continue cefepime Continue lasix IV BID Cardiology consulted, appreciate recs - Steroids added by Dr Pichardo DARA on CKD Creatinine stable Use diuretics with caution Continue to monitor closely and avoid nephrotoxins as able Supratherapeutic INR Mechanical aortic valve Paroxysmal atrial fibrillation INR now trending up today- likely due to poor nutrition, vitamin K given Monitor closely and resume Coumadin when able- careful not to overcorrect continue digoxin Hypertension Hold antihypertensives with low blood pressures this morning and diuresis CAD PAD Mitral valve stenosis GERD clinically significant, no acute management needs, continue home meds End of life counseling - Discussed at length with patient and familiar. She is an appropriate hospice candidate but she is not ready for that yet. Gave medical recommendation that she could benefit from hospice and should be a DNR. Family continued discussion regarding code status and she is now a DNR but not yet a DNI. Offered time trial of watching over the next 24 hours to see if she improves. Family and patient a greeable. Patient continues to have guarded prognosis. DVT prophylaxis: Supratherapeutic INR Clinical Quality Measures DVT/VTE Risk/Contraindication: Risk Factor Score Per Nursin RFS Level Per Nursing on Admit: 4+=Very High VENANCIO ARREAGA MD Aug 21, 2019 10:15
[2019-08-21] MEDS: methylPREDNISolone 40 MG/ML (Solu-MEDROL) VIAL IV SCH ×2 (12:59→19:05)
[2019-08-21] MEDS: CEFEPIME INJECTION 2,000 MG in WATER (STERILE) FOR INJECTION 20 ML IV SCH (13:00)
[2019-08-22] VITALS (15 sets, daily range): BP systolic 102–130; BP diastolic 45–54
[2019-08-22] MEDS: methylPREDNISolone 40 MG/ML (Solu-MEDROL) VIAL IV SCH ×4 (00:16→17:32)
[2019-08-22] MEDS: RT-ALBUTEROL/IPRATROPIUM 3 ML (DUONEB) VIAL INH SCH ×6 (01:49→22:43)
[2019-08-22 03:19] LABS: ABG BASE EXCESS 3.1 MMOL/L (-2.5-2.5); ABG OXYGEN SATURATION 80 % (94-100); ABG PCO2 52 MMHG (35-45); ABG PH 7.35 (7.37-7.43); ABG PO2 51 MMHG (79-93); ABG TCO2 30.1 MMOL/L (21.0-31.0)
[2019-08-22 03:20] LABS: ALLENS TEST POSITIVE; INSPIRED O2 30% BIPAP; PATIENT TEMP 36.2; VENTILATOR NO
[2019-08-22 03:58] LABS: BASOPHILS % (AUTO) 0 % (0-10); EOSINOPHILS % (AUTO) 0 % (0-10); HEMATOCRIT 28 % (35-52); HEMOGLOBIN 8.7 G/DL (11.5-16.0); LYMPHOCYTES # (AUTO) 0.2 X 10^3 (1.0-4.0); LYMPHOCYTES % (AUTO) 8 % (12-44); MEAN CORPUSCULAR HEMOGLOBIN 32 PG (25-34); MEAN CORPUSCULAR HGB CONC 31 G/DL (32-36); MEAN CORPUSCULAR VOLUME 105 FL (80-99); MONOCYTES # (AUTO) 0.1 X 10^3 (0.0-1.0); MONOCYTES % (AUTO) 5 % (0-12); NEUTROPHILS # (AUTO) 2.1 X 10^3 (1.8-7.8); NEUTROPHILS % (AUTO) 88 % (42-75); PLATELET COUNT 130 10^3/uL (130-400); RED CELL DISTRIBUTION WIDTH 14.4 % (10.0-14.5); WHITE BLOOD COUNT 2.4 10^3/uL (4.3-11.0)
[2019-08-22 04:16] LABS: INR 1.8 (0.8-1.4); PROTHROMBIN TIME PATIENT 21.4 SEC (12.2-14.7)
[2019-08-22 04:18] LABS: CALCIUM 9.1 MG/DL (8.5-10.1); CREATININE SERUM 1.59 MG/DL (0.60-1.30); MAGNESIUM 2.2 MG/DL (1.6-2.4); PHOSPHORUS 3.3 MG/DL (2.3-4.7); POTASSIUM 4.5 MMOL/L (3.6-5.0)
--- NOTE | 2019-08-22 05:33 | Pulmonary Progress Note ---
Subjective Time Seen by a Provider: 05:33 Subjective/Events-last exam Currently on BiPAP Sepsis Event Evaluation Height, Weight, BMI Height: 5'6.00" Weight: 138lbs. 6.0oz. 62.374245te; 22.22 BMI Method:Estimated Exam Exam Vital Signs Date Time Temp Pulse Resp B/P (MAP) Pulse Ox O2 Delivery O2 Flow Rate FiO2 08/22/19 05:00 88 24 118/47 (70) 95 NIV Bilevel 30.00 08/22/19 04:00 93 NIV Bilevel 30 08/22/19 04:00 85 26 118/51 (73) 93 NIV Bilevel 30.00 08/22/19 03:00 86 18 114/52 (72) 94 NIV Bilevel 30.00 08/22/19 02:00 80 24 113/51 (71) 93 NIV Bilevel 30.00 08/22/19 01:50 84 26 92 35.00 08/22/19 01:36 NIV Bilevel 30.00 08/22/19 01:00 52 23 116/49 (71) 91 NIV Bilevel 35.00 08/22/19 01:00 87 08/22/19 00:00 93 NIV Bilevel 30 08/22/19 00:00 88 27 114/48 (70) 95 NIV Bilevel 35.00 08/21/19 23:00 86 26 126/58 (80) 94 NIV Bilevel 35.00 08/21/19 22:19 85 26 94 35.00 08/21/19 22:00 85 26 118/50 (72) 94 NIV Bilevel 35.00 08/21/19 21:00 82 27 123/51 (75) 94 Vapotherm 40.00 45.00 08/21/19 21:00 NIV Bilevel 35.00 08/21/19 20:00 85 26 127/59 (81) 92 Vapotherm 40.00 45.00 08/21/19 20:00 37.5 08/21/19 20:00 96 Vapotherm 45 08/21/19 19:00 85 33 122/55 (77) 92 Vapotherm 40.00 45.00 08/21/19 19:00 86 08/21/19 18:59 93 Vapotherm 35.00 45 08/21/19 18:00 85 25 129/59 (82) 93 Vapotherm 40.00 45.00 08/21/19 17:00 89 25 117/54 (75) 94 Vapotherm 40.00 45.00 08/21/19 16:00 85 29 125/50 (75) 94 Vapotherm 40.00 45.00 08/21/19 16:00 94 NIV Bilevel 35 08/21/19 16:00 37.2 08/21/19 15:00 89 25 127/62 (83) 93 Vapotherm 40.00 45.00 08/21/19 14:51 89 30 94 35.00 08/21/19 14:00 90 25 113/74 (87) 94 Vapotherm 40.00 45.00 08/21/19 13:54 37.1 85 91 30 08/21/19 13:00 81 20 132/54 (80) 94 Vapotherm 40.00 45.00 08/21/19 12:33 85 08/21/19 12:09 37.1 08/21/19 12:00 94 NIV Bilevel 45 08/21/19 12:00 85 24 122/58 (79) 94 Vapotherm 40.00 45.00 08/21/19 11:00 95 22 130/60 (83) 92 Vapotherm 40.00 45.00 08/21/19 10:33 85 24 91 30.00 08/21/19 10:00 85 36 101/62 (75) 91 Vapotherm 40.00 45.00 08/21/19 09:00 85 27 135/55 (81) 91 Vapotherm 40.00 45.00 08/21/19 08:00 37.1 08/21/19 08:00 85 27 111/55 (73) 93 Vapotherm 40.00 45.00 08/21/19 08:00 96 NIV Bilevel 45 08/21/19 08:00 37.1 85 27 111/55 (73) 98 Nasal Cannula 2.00 2.00 08/21/19 08:00 98 Nasal Cannula 2.00 08/21/19 07:00 80 20 112/47 (68) 91 Vapotherm 40.00 45.00 08/21/19 07:00 85 08/21/19 06:41 85 20 92 30.00 08/21/19 06:00 86 17 117/53 (74) 96 Vapotherm 40.00 45.00 I & O 08/22/19 07:00 Intake Total 1260 ml Output Total 1200 ml Balance 60 ml Height & Weight Height: 5'6.00" Weight: 138lbs. 6.0oz. 62.593874dt; 22.22 BMI Method:Estimated General Appearance: Chronically ill, Mild Distress HEENT: PERRL/EOMI, Pharynx Normal Neck: Normal Inspection Respiratory: No Accessory Muscle Use, No Respiratory Distress, Decreased Breath Sounds Cardiovascular: Regular Rate, Rhythm, Systolic Murmur Capillary Refill: Less Than 3 Seconds Gastrointestinal: non tender, soft Extremity: Inflammation, Pedal Edema Neurologic/Psychiatric: Alert, Oriented x3 Skin: Normal Color, Warm/Dry Lymphatic: No Adenopathy Results Lab Laboratory Tests 08/21/19 03:21 08/22/19 03:38 Assessment/Plan Assessment/Plan Acute on chronic hypoxic respiratory failure -O2 therapy -ABG shows worsening respiratory acidosis - solumedrol started yesterday -CXR shows some improvement. - lasix -Continue to monitor close -BiPap PRN Healthcare associated pneumonia -continue cefepime Chronic heart failure with preserved ejection fraction - lasix -cardiology consulted DARA on CKD Continue to monitor closely Supratherapeutic INR - -INR is now 1.8 -Will restart coumadin at 2.5mg daily -Monitor closely -Hb stable thus far Paroxysmal atrial fibrillation digoxin -Cardiology following Hypertension CAD -cardiology consulted PAD GERD continue home meds ANT LOPEZ DO Aug 22, 2019 05:33
[2019-08-22] MEDS: FUROSEMIDE 40 MG/4 ML INJ (LASIX) IVP SCH ×2 (07:03→17:32)
[2019-08-22] MEDS: POTASSIUM CL 10MEQ/50ML IVPB 50 ML IV SCH (07:04)
[2019-08-22] MEDS: LEVOTHYROXINE 100 MCG (LEVOTHROID) TAB PO SCH (07:04)
[2019-08-22] MEDS: KCL 20 MEQ TAB (K-DUR) PO SCH (07:04)
[2019-08-22] MEDS: MAGNESIUM 1 GM/100 ML IVPB 100 ML IV SCH (07:04)
--- NOTE | 2019-08-22 07:52 | Diagnostic Imaging Report ---
INDICATION: Dyspnea COMPARISON: 08/21/2019 TECHNIQUE: Single radiograph of the chest dated 08/22/2019 FINDINGS: Pacer device is present with battery pack overlying left chest. The cardiac silhouette is enlarged, though stable. Median sternotomy. Mild central pulmonary vascular congestion is again identified. Extensive bilateral mixed interstitial and airspace opacities are again identified, right greater than left. These opacities have not significantly changed from prior examination. Small bibasilar pleural effusions are present, slightly increasing. No pneumothorax. Osseous structures appear stable. IMPRESSION: Extensive right greater than left bilateral pulmonary opacities, not significantly changed from prior exam. Slightly increasing small bibasilar pleural effusions. Persistent cardiomegaly with central pulmonary vascular congestion. Additional findings as above. Dictated by: Dictated on workstation # [id number]
[2019-08-22] MEDS: DOCUSATE SODIUM 100 MG (COLACE) CAP PO SCH ×2 (08:43→21:12)
[2019-08-22] MEDS: PANTOPRAZOLE 40 MG (PROTONIX) TAB PO SCH (08:43)
[2019-08-22] MEDS: SENNOSIDES 8.6 MG (SENOKOT) TAB PO SCH ×2 (08:43→21:12)
[2019-08-22] MEDS: MEXILETINE 150 MG (MEXITIL) CAPSULE PO SCH ×2 (08:43→21:13)
[2019-08-22] MEDS: rOPINIRole 0.25 MG (REQUIP) TAB PO SCH ×3 (08:43→21:13)
[2019-08-22] MEDS: guaiFENesin (MUCINEX) 600 MG TAB PO SCH ×2 (08:44→21:13)
[2019-08-22] MEDS: DIGOXIN 0.125 MG (LANOXIN) TAB PO SCH (08:44)
--- NOTE | 2019-08-22 09:30 | NUR ---
TRANSFERRED FROM ICU TO ROOM 508. REPORT WAS GIVEN BY CHITO ZAYAS. BIPAP ON AND PATIENT STATES IS COMFORTABLE. DAUGHTERS AT BEDSIDE. [employer]TER INTACT. TELEMETRY ON.
--- NOTE | 2019-08-22 09:47 | Progress Note - Hospitalist ---
Subjective HPI/CC On Admission Date Seen by Provider: Aug 22, 2019 Time Seen by Provider: 09:42 Anisha Mcfarland is an 84-year-old female with past medical history of hypertension, hyperlipidemia, chronic kidney disease, mechanical aortic valve, mitral valve stenosis, diastolic heart failure, coronary artery disease, peripheral artery disease, who presented with shortness of breath. She reports that she is feeling very short of breath and was getting winded with minimal activity. She was also having fevers and chills at home. She was measured at 101 while still at home. She had a mild cough but it was nonproductive. She h ad one episode of nausea and vomiting yesterday morning after eating a banana and a Panamanian cookie. She was able to eat some broth last night with out issue. She is not feeling hungry this morning. She denies abdominal pain and diarrhea. She denies dysuria. She denies chest pain. Subjective/Events-last exam Pt reports feeling well today. Breathing has improved but still on Vapotherm and BiPAP interchangeably. Objective Exam Vital Signs Vital Signs Date Time Temp Pulse Resp B/P (MAP) Pulse Ox O2 Delivery O2 Flow Rate FiO2 08/22/19 08:00 93 Vapotherm 30 08/22/19 08:00 89 21 108/50 (69) 30.00 08/21/19 20:00 37.5 Capillary Refill : Less Than 3 Seconds General Appearance: Chronically ill, Mild Distress Respiratory: Accessory Muscle Use, Decreased Breath Sounds Cardiovascular: Regular Rate, Rhythm, Systolic Murmur Gastrointestinal: Normal Bowel Sounds, Non Tender, Distended Results/Procedures Lab Laboratory Tests 08/22/19 03:38 Patient resulted labs reviewed. Imaging: Reviewed Imaging Report Assessment/Plan Assessment and Plan Assess & Plan/Chief Complaint Healthcare associated pneumonia Acute on chronic hypoxic respiratory failure Chronic heart failure with preserved ejection fraction Cont BiPAP prn, currently on vapotherm - Pulm consulted, appreciate recs Continue cefepime Continue lasix IV BID Cardiology consulted, appreciate recs - Continue steroids DARA on CKD Creatinine stable Use diuretics with caution Continue to monitor closely and avoid nephrotoxins as able Supratherapeutic INR Mechanical aortic valve Paroxysmal atrial fibrillation INR 1.8- resume Warfarin continue digoxin Hypertension Hold antihypertensives with low blood pressures this morning and diuresis CAD PAD Mitral valve stenosis GERD clinically significant, no acute management needs, continue home meds End of life counseling - Discussed at length with patient and family on 08/21- She is an appropriate hospice candidate but she is not ready for that yet. Gave medical recommendation that she could benefit from hospice and should be a DNR. Family continued discussion regarding code status and she is now a DNR but not yet a DNI. Offered continued time trial and will reassess tomorrow. DVT prophylaxis: Warfarin Clinical Quality Measures DVT/VTE Risk/Contraindication: Risk Factor Score Per Nursin RFS Level Per Nursing on Admit: 4+=Very High VENANCIO ARREAGA MD Aug 22, 2019 09:47
[2019-08-22] MEDS ORDERED: SENNA W/DOCUSATE (SENOKOT S) TABLET PO PRN (10:00)
[2019-08-22] MEDS ORDERED: FLEET ENEMA ADULT 1 EA BTL PR PRN (10:00)
--- NOTE | 2019-08-22 10:07 | Cardiology Progress Note ---
Cardiology SOAP Progress Note Subjective: Shortness of breath. Objective: I&O/Vital Signs 08/23/19 08/23/19 08/23/19 08/23/19 03:26 03:52 06:54 07:00 Temp 36.2 Pulse 84 82 85 Resp 21 B/P (MAP) 117/55 (75) Pulse Ox 95 94 96 O2 Delivery NIV Bilevel Vapotherm O2 Flow Rate 28.00 28.00 35.00 FiO2 40 08/23/19 08/23/19 08/23/19 08/23/19 08:00 08:38 10:21 10:32 Temp 36.8 Pulse 87 Resp 20 B/P (MAP) 121/61 (81) Pulse Ox 100 95 O2 Delivery Vapotherm Vapotherm Vapotherm Vapotherm O2 Flow Rate 35.00 35.00 35.00 30.00 40.00 40.00 FiO2 40 40 08/23/19 08/23/19 08/23/19 12:00 13:00 14:00 Temp 37.2 Pulse 88 85 Resp 21 B/P (MAP) 114/42 (66) Pulse Ox 94 96 O2 Delivery Vapotherm Vapotherm O2 Flow Rate 30.00 30.00 40.00 FiO2 40 08/23/19 00:00 Intake Total 340 ml Output Total 450 ml Balance -110 ml Weight (Pounds): 138 Weight (Ounces): 6.0 Weight (Calculated Kilograms): 62.822931 Constitutional: AAO x 3, well-developed, well-nourished Respiratory: No accessory muscle use; chest is bilaterally symmetric, other (good bilateral air entry, diminished at the bases) Cardiovascular: regular rate-rhythm, S1 and S2 ([facility], 2/6 MSM, soft early luna murmur) Gastrointestional: No tender, No guarding, No rebound; audible bowel sounds Extremities: normal range of motion, non-tender, normal inspection; No clubbing, No cyanosis; no lower extremity edema bilateral; No significant edema Neurologic/Psychiatric: no motor/sensory deficits, alert, normal mood/affect, oriented x 3, other (moves all limbs equally) Skin: normal color; No rash on exposed areas, No ulcerations on exposed areas Results/Procedures: Labs Laboratory Tests 08/23/19 03:56: White Blood Count 5.4, Red Blood Count 2.62L, Hemoglobin 8.5L, Hematocrit 27L, Mean Corpuscular Volume 104H, Mean Corpuscular Hemoglobin 32, Mean Corpuscular Hemoglobin Concent 31L, Red Cell Distribution Width 14.6H, Platelet Count 138, Mean Platelet Volume 10.9H, Neutrophils (%) (Auto) 90H, Lymphocytes (%) (Auto) 5L, Monocytes (%) (Auto) 5, Eosinophils (%) (Auto) 0, Basophils (%) (Auto) 0, Neutrophils # (Auto) 4.9, Lymphocytes # (Auto) 0.3L, Monocytes # (Auto) 0.3, Eosinophils # (Auto) 0.0, Basophils # (Auto) 0.0, Neutrophils % (Manual) 91, Lymphocytes % (Manual) 5, Monocytes % (Manual) 4, Macrocytosis SLIGHT, Sodium Level 133L, Potassium Level 4.3, Chloride Level 100, Carbon Dioxide Level 21, Anion Gap 12, Blood Urea Nitrogen 53H, Creatinine 1.57H, Estimat Glomerular Filtration Rate 32, BUN/Creatinine Ratio 34, Glucose Level 109H, Calcium Level 8.9, Phosphorus Level 3.0, Magnesium Level 2.1 08/23/19 03:59: Prothrombin Time 17.8H, INR Comment 1.4 Microbiology 08/18/19 Gram Stain - Final, Complete 08/18/19 Sputum Culture - Final, Complete Usual upper respiratory rowan 08/15/19 Blood Culture - Final, Complete No growth A/P: Assessment/Dx: Acute respiratory failure Pneumonia Congestive heart failure Coronary artery disease Plan: Acute respiratory failure secondary to pneumonia, receiving antibiotic and currently on BiPAP. Managed by Dr. Pichardo. Congestive heart failure, acute on chronic left ventricular systolic dys function, nonischemic cardiomyopathy, valvular heart disease, echocardiogram done on August 18, 2019 showing ejection fraction 35-40 percent, left atrium is severely enlarged 8.3 cm, severe mitral valve stenosis, moderate severe mitral regurgitation, prosthetic valve in the aortic position functioning normally, severe pulmonary hypertension with PA pressure 65 mmHg. Continue on diuretics and monitor Bilateral pleural effusion, continue on diuretics and monitor Permanent atrial fibrillation, underlying sinus node dysfunction, had permanent pacemaker. Continue to monitor Acute on chronic renal insufficiency. Continue to monitor renal function. History of aortic valve replacement in 1998 with metallic valve on Coumadin, continue to monitor [id number] Score of 6, yearly risk of stroke without oral anticoagulation is 9.8 percent, maintained on Coumadin, supratherapeutic INR, earlier but treated with vitamin K. Subtherapeutic INR. Bridging with Lovenox. Peripheral vascular disease, patient has venous insufficiency on the right side that required ablation, peripheral angiogram May 2017, intervention to the anterior tibial artery, the wound has healed then developed a new ulcer after a trauma. Did balloon angioplasty to the right anterior tibial artery proximal portion has significant improvement the distal portion is occluded and did not improve, the posterior tibial artery and peroneal arteries were occluded with no collaterals in that area. The right SFA has multiple segment of moderate to severe stenosis, balloon angioplasty to the mid SFA with good results. Abdominal aorta has moderate disease, the left SFA has mild to moderate disease down to the trifurcation. Patient has nonhealing wounds to right ankle, underwent peripheral angiogram with Dr. Arias on July 08, 2019 with right SFA and anterior tibial artery angioplasty with good results. continue to monitor Severe mitral valve stenosis rheumatic valve, severe mitral regurgitation with severe pulmonary hypertension, estimated pulmonary artery pressure of 55 mmHg with severely dilated both atrium and prominent right ventricle with dilated IVC. discussed with Dr. Page, he recommended medical therapy at this time considering her to be high risk for morbidity and mortality if she undergoes valve surgery. She is not a candidate for mitral clip secondary to her mitral stenosis Was referred once again to Dr. Davila in January 2019 for evaluation for possible TMVR. Decided to continue with conservative management at this time. Possible TMVR, was referred to [facility] previously, will arrange for reevaluation Coronary artery disease, small vessel disease, nonobstructive disease, the prosthetic valve was functioning normally. Pulmonary artery pressure was 50/26, pulmonary capillary wedge pressure 35, right ventricular pressure 53/17. cardiac catheterization was done in September 2014. Stress test done in December 2016 showing no ischemia or infarction, EF 41 percent, continue to monitor Carotid stenosis, continue to monitor, followed by heart and vascular care. 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 followed and monitored by heart and vascular care. Hypertension, continue to monitor blood pressure Hyperlipidemia, continue on current medication monitor lipids Right hip fracture in May 2018 status post surgical repair, recovered well. Thank you for your consultation. Please call me if you have any questions. Zack Orozco MD, FACP, FACC, FSCAI, FHRS, CCDS Interventional Cardiology Cardiac Electrophysiology Vascular Medicine and Endovascular Interventions Cristiano OROZCO MD Aug 22, 2019 10:07
[2019-08-22] MEDS ORDERED: WATER (STERILE) FOR INJECTION 20 ML ONE (13:24)
[2019-08-22] MEDS: CEFEPIME INJECTION 2,000 MG in WATER (STERILE) FOR INJECTION 20 ML IV SCH (13:30)
--- NOTE | 2019-08-22 13:44 | NUR ---
provided prayer and Communion. Anointed Yesterday.
--- NOTE | 2019-08-22 15:00 | NUR ---
PATIENT HAS BEEN SLEEPY. DID HAVE AMBIEN LAST NIGHT AND FAMILY REQUESTS FOR HER NOT TO RECEIVE IT ANYMORE AND TAKEN OFF MAR. REMAINS ON BIPAP SINCE SO SLEEPY. WILL OPEN EYES TO TALK FOR A MINUTE, AND THEN GOES BACK TO SLEEP. REFUSED LUNCH. DRESSING CHANGE DONE TO LEFT LEG. GRANDSON CHIP STATES 2 OPEN SORES ARE LOOKING BETTER. DAUGHTER STATES NO BM X [address] ARREAGA HAS ORDERED LAXATIVES, BUT PATIENT HAS BEEN TOO SLEEPY FOR IT SO FAR TODAY.
[2019-08-22] MEDS: warFARin 2.5 MG (COUMADIN) TAB PO SCH (17:50)
--- NOTE | 2019-08-22 18:00 | NUR ---
HAS PERKED UP AND CHANGED OVER TO VAPOTHERM. EATING SPAGHETTI BROUGHT IN BY FAMILY. DENIES PAIN. REFUSES LAXATIVES EXCEPT AGREED TO TAKE [place]. CONTINUOUS PULSE OX REQUESTED BY FAMILY.
[2019-08-22] MEDS: POLYETHYLENE GLYCOL 17 GM (MIRALAX) PACK PO SCH (22:51)
[2019-08-23] VITALS: BP 121/56
[2019-08-23] MEDS: methylPREDNISolone 40 MG/ML (Solu-MEDROL) VIAL IV SCH ×4 (00:12→18:17)
[2019-08-23] MEDS: LORazepam 0.5 MG (ATIVAN) TABLET PO PRN ×2 (01:02→20:45)
[2019-08-23] MEDS: RT-ALBUTEROL/IPRATROPIUM 3 ML (DUONEB) VIAL INH SCH ×7 (03:24→22:22)
[2019-08-23 03:52] VITALS: BP 117/55
[2019-08-23 04:18] LABS: BASOPHILS % (AUTO) 0 % (0-10); EOSINOPHILS % (AUTO) 0 % (0-10); HEMATOCRIT 27 % (35-52); HEMOGLOBIN 8.5 G/DL (11.5-16.0); LYMPHOCYTES # (AUTO) 0.3 X 10^3 (1.0-4.0); LYMPHOCYTES % (AUTO) 5 % (12-44); MEAN CORPUSCULAR HEMOGLOBIN 32 PG (25-34); MEAN CORPUSCULAR HGB CONC 31 G/DL (32-36); MEAN CORPUSCULAR VOLUME 104 FL (80-99); MEAN PLATELET VOLUME 10.9 FL (7.4-10.4); MONOCYTES # (AUTO) 0.3 X 10^3 (0.0-1.0); MONOCYTES % (AUTO) 5 % (0-12); NEUTROPHILS # (AUTO) 4.9 X 10^3 (1.8-7.8); NEUTROPHILS % (AUTO) 90 % (42-75); PLATELET COUNT 138 10^3/uL (130-400); RED CELL DISTRIBUTION WIDTH 14.6 % (10.0-14.5); WHITE BLOOD COUNT 5.4 10^3/uL (4.3-11.0)
[2019-08-23 04:31] LABS: INR 1.4 (0.8-1.4); PROTHROMBIN TIME PATIENT 17.8 SEC (12.2-14.7)
[2019-08-23 04:43] LABS: CALCIUM 8.9 MG/DL (8.5-10.1); CREATININE SERUM 1.57 MG/DL (0.60-1.30); MAGNESIUM 2.1 MG/DL (1.6-2.4); POTASSIUM 4.3 MMOL/L (3.6-5.0)
[2019-08-23 05:32] LABS: LYMPHOCYTES % (MANUAL) 5 %; MONOCYTES % (MANUAL) 4 %; NEUTROPHILS % (MANUAL) 91 %
--- NOTE | 2019-08-23 05:48 | Pulmonary Progress Note ---
Subjective Time Seen by a Provider: 13:01 Subjective/Events-last exam No complications noted. Sepsis Event Evaluation Height, Weight, BMI Height: 5'6.00" Weight: 138lbs. 6.0oz. 62.862354fb; 22.22 BMI Method:Estimated Exam Exam Vital Signs Date Time Temp Pulse Resp B/P (MAP) Pulse Ox O2 Delivery O2 Flow Rate FiO2 08/23/19 03:52 36.2 82 117/55 (75) 94 NIV Bilevel 28.00 08/23/19 03:26 84 21 95 28.00 08/23/19 01:00 85 08/23/19 00:00 37.2 91 20 121/56 (77) 92 08/22/19 21:40 90 30 92 28.00 08/22/19 21:00 93 Vapotherm 30 08/22/19 20:10 93 Vapotherm 35.00 45 08/22/19 20:00 37.8 87 19 114/52 (72) 96 08/22/19 19:00 89 08/22/19 18:17 86 130/54 (79) 98 Vapotherm 35.00 40.00 08/22/19 16:00 36.9 85 25 114/45 (68) 91 NIV Bilevel 08/22/19 13:50 88 32 95 28.00 08/22/19 12:25 84 08/22/19 12:00 37.0 85 20 129/48 (75) 92 NIV Bilevel 30.00 08/22/19 10:00 37.1 90 18 122/47 (72) 97 NIV Bilevel 30.00 08/22/19 08:00 93 Vapotherm 30 08/22/19 08:00 37.1 08/22/19 08:00 89 21 108/50 (69) 90 NIV Bilevel 30.00 08/22/19 07:00 91 08/22/19 06:37 85 29 93 30.00 08/22/19 06:00 85 24 109/46 (67) 94 NIV Bilevel 30.00 I & O 08/23/19 07:00 Intake Total 840 ml Output Total 600 ml Balance 240 ml Height & Weight Height: 5'6.00" Weight: 138lbs. 6.0oz. 62.622334tl; 22.22 BMI Method:Estimated General Appearance: Chronically ill, Mild Distress HEENT: PERRL/EOMI, Pharynx Normal Neck: Normal Inspection Respiratory: No Accessory Muscle Use, No Respiratory Distress, Decreased Breath Sounds Cardiovascular: Regular Rate, Rhythm, Systolic Murmur Capillary Refill: Less Than 3 Seconds Gastrointestinal: non tender, soft Extremity: Inflammation, Pedal Edema Neurologic/Psychiatric: Alert, Oriented x3 Skin: Normal Color, Warm/Dry Lymphatic: No Adenopathy Results Lab Laboratory Tests 08/22/19 03:38 08/23/19 03:56 Assessment/Plan Assessment/Plan Acute on chronic hypoxic respiratory failure -O2 therapy -ABG shows worsening respiratory acidosis - solumedrol started yesterday -CXR shows some improvement. - lasix -Continue to monitor close -BiPap PRN Healthcare associated pneumonia -continue cefepime Chronic heart failure with preserved ejection fraction - lasix -cardiology consulted DARA on CKD Continue to monitor closely Supratherapeutic INR - -coumadin -- Will defer dosing to cardiology -Monitor closely -Hb stable thus far Paroxysmal atrial fibrillation digoxin -Cardiology following Hypertension CAD -cardiology consulted PAD GERD continue home medANT Verduzco DO Aug 23, 2019 05:48
[2019-08-23] MEDS: LEVOTHYROXINE 100 MCG (LEVOTHROID) TAB PO SCH (06:09)
[2019-08-23] MEDS: FUROSEMIDE 40 MG/4 ML INJ (LASIX) IVP SCH ×2 (06:09→18:17)
--- NOTE | 2019-08-23 07:18 | Diagnostic Imaging Report ---
INDICATION: Dyspnea. COMPARISON: 08/22/2019. DISCUSSION: Single portable upright view of the chest was obtained. Marked cardiomegaly is stable. Small bilateral pleural effusions are stable. Mixed interstitial and alveolar infiltrates are again noted bilaterally, right greater than left, stable. Findings likely represent heart failure. Median sternotomy and left-sided pacemaker are stable. No pneumothorax or osseous abnormality. IMPRESSION: 1. Stable chest. Dictated by: Dictated on workstation # [id number]
--- NOTE | 2019-08-23 08:28 | Progress Note - Hospitalist ---
Subjective HPI/CC On Admission Date Seen by Provider: Aug 23, 2019 Time Seen by Provider: 08:23 Anisha Mcfarland is an 84-year-old female with past medical history of hypertension, hyperlipidemia, chronic kidney disease, mechanical aortic valve, mitral valve stenosis, diastolic heart failure, coronary artery disease, peripheral artery disease, who presented with shortness of breath. She reports that she is feeling very short of breath and was getting winded with minimal activity. She was also having fevers and chills at home. She was measured at 101 while still at home. She had a mild cough but it was nonproductive. She h ad one episode of nausea and vomiting yesterday morning after eating a banana and a Lithuanian cookie. She was able to eat some broth last night with out issue. She is not feeling hungry this morning. She denies abdominal pain and diarrhea. She denies dysuria. She denies chest pain. Subjective/Events-last exam Pt reports feeling better today. Son and granddaughter at bedside. No concerns per them. Discussed low INR and will start Lovenox. Objective Exam Vital Signs Vital Signs Date Time Temp Pulse Resp B/P (MAP) Pulse Ox O2 Delivery O2 Flow Rate FiO2 08/23/19 07:00 85 08/23/19 06:54 96 Vapotherm 35.00 40 08/23/19 03:52 36.2 117/55 (75) 08/23/19 03:26 21 Capillary Refill : Less Than 3 Seconds General Appearance: No Apparent Distress, Chronically ill Respiratory: No Accessory Muscle Use, Decreased Breath Sounds, Other (on vapoth erm) Cardiovascular: Regular Rate, Rhythm, Systolic Murmur Gastrointestinal: Normal Bowel Sounds, Soft Neurologic/Psychiatric: Alert, Oriented x3, Normal Mood/Affect Results/Procedures Lab Laboratory Tests 08/23/19 03:56 Patient resulted labs reviewed. Imaging: Reviewed Imaging Report Assessment/Plan Assessment and Plan Assess & Plan/Chief Complaint Healthcare associated pneumonia Acute on chronic hypoxic respiratory failure Chronic heart failure with preserved ejection fraction Cont BiPAP prn, currently on vapotherm - Morphine for air hunger added as well - Pulm consulted, appreciate recs Continue cefepime, Lasix, Steroids Cardiology consulted, appreciate recs DARA on CKD Creatinine stable Use diuretics with caution Continue to monitor closely and avoid nephrotoxins as able Supratherapeutic INR Mechanical aortic valve Paroxysmal atrial fibrillation INR 1.4- add Lovenox until therapeutic with INR continue digoxin Hypertension Hold antihypertensives with low blood pressures this morning and diuresis CAD PAD Mitral valve stenosis GERD clinically significant, no acute management needs, continue home meds Constipation - Bowel regimen added Debility - PT/OT ordered - May need SNF placement upon discharge End of life counseling - Discussed at length with patient and family on 08/21- She is an appropriate hospice candidate but she is not ready for that yet. Gave medical recommendation that she could benefit from hospice and should be a DNR. Family continued discussion regarding code status and she is now a DNR but not yet a DNI. Improving slowing but steadily over the past couple of day so will maintain current course though overall correction prognosis is poor DVT prophylaxis: Lovenox Diagnosis/Problems Diagnosis/Problems (1) Atrial fibrillation, controlled Status: Chronic (2) PVD (peripheral vascular disease) Status: Chronic (3) PAD (peripheral artery disease) Status: Chronic (4) HTN (hypertension) Status: Chronic (5) Debility Status: Chronic (6) Venous ulcer (7) CHF (congestive heart failure) Status: Chronic (8) Acute exacerbation of congestive heart failure Status: Acute (9) Supratherapeutic INR Status: Acute (10) Pneumonia Status: Acute Qualifiers: Pneumonia type: due to unspecified organism Laterality: unspecified laterality Lung location: unspecified part of lung Qualified Codes: J18.9 - Pneumonia, unspecified organism (11) HCAP (healthcare-associated pneumonia) Status: Acute (12) Acute on chronic respiratory failure with hypoxemia Status: Acute (13) Acute kidney injury superimposed on chronic kidney disease Status: Acute (14) Aortic valve replaced Status: Chronic Clinical Quality Measures DVT/VTE Risk/Contraindication: Risk Factor Score Per Nursin RFS Level Per Nursing on Admit: 4+=Very High VENANCIO ARREAGA MD Aug 23, 2019 08:28
[2019-08-23 08:38] VITALS: BP 121/61
[2019-08-23] MEDS: ENOXAPARIN 80 MG/0.8 ML (LOVENOX) SYR SC SCH (09:18)
[2019-08-23] MEDS: DIGOXIN 0.125 MG (LANOXIN) TAB PO SCH (09:19)
[2019-08-23] MEDS: guaiFENesin (MUCINEX) 600 MG TAB PO SCH ×2 (09:19→20:45)
[2019-08-23] MEDS: SENNOSIDES 8.6 MG (SENOKOT) TAB PO SCH ×2 (09:19→20:45)
[2019-08-23] MEDS: MEXILETINE 150 MG (MEXITIL) CAPSULE PO SCH ×2 (09:19→20:46)
[2019-08-23] MEDS: POLYETHYLENE GLYCOL 17 GM (MIRALAX) PACK PO SCH ×2 (09:19→22:49)
[2019-08-23] MEDS: rOPINIRole 0.25 MG (REQUIP) TAB PO SCH ×3 (09:19→20:46)
[2019-08-23] MEDS: PANTOPRAZOLE 40 MG (PROTONIX) TAB PO SCH (09:19)
[2019-08-23] MEDS: DOCUSATE SODIUM 100 MG (COLACE) CAP PO SCH ×2 (09:19→22:49)
--- NOTE | 2019-08-23 10:31 | Occupational Therapy Eval ---
OT Evaluation-General/PLF Medical Diagnosis Admission Date Aug 16, 2019 at 00:05 Medical Diagnosis: Acute on chronic hypoxic respiratory failure Onset Date: Aug 16, 2019 Therapy Diagnosis Therapy Diagnosis: Weakness Height/Weight Height (Feet): 5 Height (Inches): 6.00 Weight (Pounds): 138 Weight (Ounces): 6.0 Precautions Precautions/Isolations: Contact Isolation, Fall Prevention, Pressure Ulcer Safety Interventions: None Weight Bear Status Weight Bearing Restriction: Weight Bearing/Tolerated Referral Physician: Dr. Walker Referral Reason: Activity Tolerance, Self Care, Evaluation/Treatment, Strengthening/ROM Medical History Pertinent Medical History: Atrial Fib, Arthritis, CAD, Heart Failure, HTN, Hypothroidism, OA, Renal Insufficiency Current History Sores on bilateral LE. Reviewed History: Yes Social History Home: Single Level Current Living Status: Children Entry Into Home: Stairs With Railing Steps Into Home: 4 ADL-Prior Level of Function SCALE: Activities may be completed with or without assistive devices. 7-Bsdlmqflus-fagbunt completes the activity by him/herself with no assistance from a helper. 5-Set-up or Clean-up Assistance-helper sets up or cleans up; patient completes activity. [place] assists only prior to or following the activity. 4-Supervision or Touching Assistance-helper provides verbal cues and/or touching/steadying and/or contact guard assistance as patient completes activity. Assistance may be provided throughout the activity or intermittently. 3-Partial/Moderate Assistance-helper does LESS THAN HALF the effort. [place] lifts, holds or supports trunk or limbs, but provides less than half the effort. 2-Substantial/Maximal Assistance-helper does MORE THAN HALF the effort. [place] lifts or holds trunk or limbs and provides more than half the effort. 4-Kneynmalf-vgpnwh does ALL the effort. Patient does none of the effort to complete the activity. Or, the assistance of 2 or more helpers is required for the patient to complete the activity. If activity was not attempted, code reason: 7-Patient Refused. 9-Not Applicable-not attempted and the patient did not perform the activity before the current illness, exacerbation or injury. 10-Not Attempted due to Environmental Limitations-(lack of equipment, weather restraints, etc.). 88-Not Attempted due to Medical Conditions or Safety Concerns. ADL PLOF Comments Pt. was independent with daily skills. Self Care: Independent Functional Cognition: Unknown DME/Equipment Comments Pt. uses walker. OT Current Status Subjective Pt. does not report pain, but states that she is "not good." States that she does not feel well. Appearance Pt. in bed. Daughter at bedside. Mental Status/Objective Patient Orientation: Person, Place Attachments: IV Current Glasses/Contacts: Yes ADL-Treatment On/Off Footwear (QC): 1 Other Treatments OT/PT co-treat due to pt's medical status, fatigue level, and need of skilled assist x 2. Transferred supine-sit with mod x 2. OT facilitated ADL skills and hand placement while PT addressed mobility. Able to sit on side of bed with CGA. Dependent to don slipper socks. Pt. stood at bedside with min/mod x 2, hand held assist. Stood several minutes but had to sit down. Stood again and able to take some steps toward HOB. Min assist for sit-supine and max x 2 for bed mobility and positioning. All needs met. Education OT Patient Education: Correct positioning, Modified ADL techniques, Progress toward Goal/Update tx plan, Purpose of tx/functional activities, Reviewed precautions, Rehab process, Transfer techniques Teaching Recipient: Patient Teaching Methods: Demonstration, Discussion Response to Teaching: Verbalize Understanding, Return Demonstration OT Short Term Goals Short Term Goals Time Frame: Sep 06, 2019 Eatin Oral hygiene: 3 Toileting hygiene: 3 Shower/bathe self: 3 Upper body dressin Lower body dressin Putting on/taking off footwear: 3 OT Custodial Goals Staffing Director Goals Time Frame: Sep 13, 2019 Eating (QC): 6 Oral Hygiene (QC): 5 Toileting Hygiene (QC): 4 Shower/Bathe Self (QC): 4 Upper Body Dressing (QC): 4 Lower Body Dressing (QC): 4 On/Off Footwear (QC): 4 Additional Goals: 1-Demonstrate ADL Tasks, 2-Verbalize Understanding, 3- ImproveStrength/Rick 1=Demonstrate adherence to instructed precautions during ADL tasks. 2=Patient will verbalize/demonstrate understanding of assistive dev ices/modifications for ADL. 3=Patient will improve strength/tolerance for activity to enable patient to perform ADL's. OT Education/Plan Problem List/Assessment Assessment: Decreased Activ Tolerance, Decreased UE Strength, Dependent Transfers, Impaired Bed Mobility, Impaired Funct Balance, Impaired I ADL's, Impaired Self-Care Skills Discharge Recommendations Plan/Recommendations: Continue POC Therapy Discharge Recommendati: 24 Hour Supervision, Post Acute OT Treatment Plan/Plan of Care Treatment,Training & Education: Yes Patient would benefit from OT for education, treatment and training to promote independence in ADL's, mobility, safety and/or upper extremity function for ADL's. Plan of Care: ADL Retraining, Functional Mobility, UE Funct Exercise/Act Treatment Duration: Sep 13, 2019 Frequency: 5 times per week Estimated Hrs Per Day: .25 hour per day Agreement: Yes Rehab Potential: Fair Time/GCodes Start Time: 10:00 Stop Time: 10:17 Total Time Billed (hr/min): 17 Billed Treatment Time 1, NIXON PÉREZ OT Aug 23, 2019 10:31
--- NOTE | 2019-08-23 10:32 | Physical Therapy Evaluation ---
PT Evaluation-General Medical Diagnosis Admission Date Aug 16, 2019 at 00:05 Medical Diagnosis: pneumonia Onset Date: Aug 16, 2019 Therapy Diagnosis Therapy Diagnosis: weakness; abn giat Height/Weight Height (Feet): 5 Height (Inches): 6.00 Weight (Pounds): 138 Weight (Ounces): 6.0 Precautions Precautions/Isolations: Contact Isolation, Fall Prevention, Pressure Ulcer Weight Bear Status Right Lower Extremity: Right Weight Bearing/Tolerated Left Lower Extremity: Left Weight Bearing/Tolerated Referral Physician: Denise Reason for Referral: Evaluation/Treatment Medical History Pertinent Medical History: Atrial Fib, Arthritis, CAD, Heart Failure, HTN, Hypothroidism, OA, Renal Insufficiency Current History Admitted with SOA and generally not feeling well. Reviewed History: Yes Social History Current Living Status: Alone (family checks on her often) Entry Into Home: Stairs With Railing Prior Prior Level of Function SCALE: Activities may be completed with or without assistive devices. 0-Ahblqsjjzq-eyluhjl completes the activity by him/herself with no assistance from a helper. 5-Set-up or Clean-up Assistance-helper sets up or cleans up; patient completes activity. [place] assists only prior to or following the activity. 4-Supervision or Touching Assistance-helper provides verbal cues and/or touching/steadying and/or contact guard assistance as patient completes activity. Assistance may be provided throughout the activity or intermittently. 3-Partial/Moderate Assistance-helper does LESS THAN HALF the effort. [place] lifts, holds or supports trunk or limbs, but provides less than half the effort. 2-Substantial/Maximal Assistance-helper does MORE THAN HALF the effort. [place] lifts or holds trunk or limbs and provides more than half the effort. 5-Mbkzyptek-zppyfa does ALL the effort. Patient does none of the effort to complete the activity. Or, the assistance of 2 or more helpers is required for the patient to complete the activity. If activity was not attempted, code reason: 7-Patient Refused. 9-Not Applicable-not attempted and the patient did not perform the activity before the current illness, exacerbation or injury. 10-Not Attempted due to Environmental Limitations-(lack of equipment, weather restraints, etc.). 88-Not Attempted due to Medical Conditions or Safety Concerns. Bed Mobility: 6 Transfers (B,C,W/C): 6 Gait: 6 (short distances; painful WB right LE due to ulcers on her leg) Indoor Mobility (Ambulation): Independent Stairs: Needed Some Help Prior Devices Use: Manual wheelchair, Walker PT Evaluation-Current Subjective Pt agrees; reprots she is tired. Apprehensive about getting up but agrees to do so. Objective Patient Orientation: Person, Place, Time, Situation Attachments: Oxygen (vapotherm), Gomes Catheter, IV ROM/Strength ROM Lower Extremities WFL Strength Lower Extremities grossly 3/5 throughout Integumentary/Posture Integumentary refer to nursing notes. Bowel Incontinence: No Bladder Incontinence: Gomes Cath Posture symmetrical; slightly rounded shoulders Neuromuscular (Tone, Coordination, Reflexes) intact and functional Sensory Vision: Wears Glasses Hearing: Functional Hand Dominance: Right Sensation Right Lower Extremit: Intact Sensation Left Lower Extremity: Intact Transfers Roll Left to Right (QC): 2 Sit to Lying (QC): 2 Lying to Sitting/Side of Bed(Q: 2 Sit to Stand (QC): 2 Bed mobility, sat EOB and stood with assist of 2; pt able to take a few si desteps with move up in the bed with mod assist and cues; painful WB right LE. Gait Does the Patient Walk?: Yes Comments/Gait Description Pt did not walk this visit. Balance Sitting Static: Fair Sitting Dynamic: Fair Standing Static: Fair Assessment/Needs Post lengthy acute hospital stay and has not been out of bed. She will benefit from skilled PT to promote functional strength and mobitliy to enhance transfer and gait progression to prepare for discharge from acute to most appropriate setting. Rehab Potential: Fair PT Automatic Serging Machine Operator Goals Automatic Serging Machine Operator Goals PT Fpc Goals Time Frame: Aug 29, 2019 Roll Left & Right (QC): 4 Sit to Lying (QC): 4 Lying-Sitting on Side/Bed(QC): 4 Sit to Stand (QC): 4 Chair/Zws-if-Vuakm Xfer(QC): 4 Walk 10 feet (QC): 4 Walk 50ft with 2 Turns (QC): 4 PT Plan Problem List Problem List: Activity Tolerance, Functional Strength, Safety, Balance, Gait, Transfer, Bed Mobility Treatment/Plan Treatment Plan: Continue Plan of Care Treatment Plan: Bed Mobility, Education, Functional Activity Rick, Functional Strength, Gait, Safety, Therapeutic Exercise, Transfers Treatment Duration: Aug 29, 2019 Frequency: 6 times per week Estimated Hrs Per Day: .25 hour per day Patient and/or Family Agrees t: Yes Safety Risks/Education Patient Education: Safety Issues Teaching Recipient: Patient Teaching Methods: Discussion Response to Teaching: Reinforcement Needed Time/GCodes Time In: 1000 Time Out: 1017 Total Billed Treatment Time: 17 Total Billed Treatment visit EVM 17 Co treat with OT HARDIK NGUYEN PT Aug 23, 2019 10:32
[2019-08-23 12:00] VITALS: BP 114/42
[2019-08-23] MEDS ORDERED: CEFEPIME 2 GM (MAXIPIME) VIAL ONE (14:17)
[2019-08-23] MEDS ORDERED: WATER (STERILE) FOR INJECTION 20 ML ONE (14:17)
[2019-08-23] MEDS: CEFEPIME INJECTION 2,000 MG in WATER (STERILE) FOR INJECTION 20 ML IV SCH (14:25)
--- NOTE | 2019-08-23 14:49 | NUR ---
This nurse gave report to Sergey DALE on 4th floor.
--- NOTE | 2019-08-23 15:03 | Cardiology Progress Note ---
Cardiology SOAP Progress Note Subjective: Shortness of breath Objective: I&O/Vital Signs 08/23/19 08/23/19 08/23/19 08/23/19 03:26 03:52 06:54 07:00 Temp 36.2 Pulse 84 82 85 Resp 21 B/P (MAP) 117/55 (75) Pulse Ox 95 94 96 O2 Delivery NIV Bilevel Vapotherm O2 Flow Rate 28.00 28.00 35.00 FiO2 40 08/23/19 08/23/19 08/23/19 08/23/19 08:00 08:38 10:21 10:32 Temp 36.8 Pulse 87 Resp 20 B/P (MAP) 121/61 (81) Pulse Ox 100 95 O2 Delivery Vapotherm Vapotherm Vapotherm Vapotherm O2 Flow Rate 35.00 35.00 35.00 30.00 40.00 40.00 FiO2 40 40 08/23/19 08/23/19 08/23/19 12:00 13:00 14:00 Temp 37.2 Pulse 88 85 Resp 21 B/P (MAP) 114/42 (66) Pulse Ox 94 96 O2 Delivery Vapotherm Vapotherm O2 Flow Rate 30.00 30.00 40.00 FiO2 40 08/23/19 00:00 Intake Total 340 ml Output Total 450 ml Balance -110 ml Weight (Pounds): 138 Weight (Ounces): 6.0 Weight (Calculated Kilograms): [id number] Constitutional: AAO x 3, well-developed, well-nourished Respiratory: No accessory muscle use; chest is bilaterally symmetric, other (good bilateral air entry, diminished at the bases) Cardiovascular: regular rate-rhythm, S[facility] and S2 ([facility], 2/6 MSM, soft early luna murmur) Gastrointestional: No tender, No guarding, No rebound; audible bowel sounds Extremities: normal range of motion, non-tender, normal inspection; No clubbing, No cyanosis; no lower extremity edema bilateral; No significant edema Neurologic/Psychiatric: no motor/sensory deficits, alert, normal mood/affect, oriented x 3, other (moves all limbs equally) Skin: normal color; No rash on exposed areas, No ulcerations on exposed areas Results/Procedures: Labs Laboratory Tests 08/23/19 03:56: White Blood Count 5.4, Red Blood Count 2.62L, Hemoglobin 8.5L, Hematocrit 27L, Mean Corpuscular Volume 104H, Mean Corpuscular Hemoglobin 32, Mean Corpuscular Hemoglobin Concent 31L, Red Cell Distribution Width 14.6H, Platelet Count 138, Mean Platelet Volume 10.9H, Neutrophils (%) (Auto) 90H, Lymphocytes (%) (Auto) 5L, Monocytes (%) (Auto) 5, Eosinophils (%) (Auto) 0, Basophils (%) (Auto) 0, Neutrophils # (Auto) 4.9, Lymphocytes # (Auto) 0.3L, Monocytes # (Auto) 0.3, Eosinophils # (Auto) 0.0, Basophils # (Auto) 0.0, Neutrophils % (Manual) 91, Lymphocytes % (Manual) 5, Monocytes % (Manual) 4, Macrocytosis SLIGHT, Sodium Level 133L, Potassium Level 4.3, Chloride Level 100, Carbon Dioxide Level 21, Anion Gap 12, Blood Urea Nitrogen 53H, Creatinine 1.57H, Estimat Glomerular Filtration Rate 32, BUN/Creatinine Ratio 34, Glucose Level 109H, Calcium Level 8.9, Phosphorus Level 3.0, Magnesium Level 2.1 08/23/19 03:59: Prothrombin Time 17.8H, INR Comment 1.4 Microbiology 08/18/19 Gram Stain - Final, Complete 08/18/19 Sputum Culture - Final, Complete Usual upper respiratory rowan 08/15/19 Blood Culture - Final, Complete No growth A/P: Assessment/Dx: Acute respiratory failure Pneumonia Congestive heart failure Coronary artery disease Plan: Acute respiratory failure secondary to pneumonia, receiving antibiotic and currently on BiPAP. Managed by Dr. Pichardo. Congestive heart failure, acute on chronic left ventricular systolic dysf unction, nonischemic cardiomyopathy, valvular heart disease, echocardiogram done on August 18, 2019 showing ejection fraction 35-40 percent, left atrium is severely enlarged 8.3 cm, severe mitral valve stenosis, moderate severe mitral regurgitation, prosthetic valve in the aortic position functioning normally, severe pulmonary hypertension with PA pressure 65 mmHg. Continue on diuretics and monitor Bilateral pleural effusion, continue on diuretics and monitor Permanent atrial fibrillation, underlying sinus node dysfunction, had permanent pacemaker. Continue to monitor Acute on chronic renal insufficiency. Continue to monitor renal function. 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 Subtherapeutic INR. Bridging with Lovenox. Peripheral vascular disease, patient has venous insufficiency on the right side that required ablation, peripheral angiogram May 2017, intervention to the anterior tibial artery, the wound has healed then developed a new ulcer after a trauma. Did balloon angioplasty to the right anterior tibial artery proximal portion has significant improvement the distal portion is occluded and did not improve, the posterior tibial artery and peroneal arteries were occluded with no collaterals in that area. The right SFA has multiple segment of moderate to severe stenosis, balloon angioplasty to the mid SFA with good results. Abdominal aorta has moderate disease, the left SFA has mild to moderate disease down to the trifurcation. Patient has nonhealing wounds to right ankle, underwent peripheral angiogram with Dr. Arias on July 08, 2019 with right SFA and anterior tibial artery angioplasty with good results. continue to monitor Severe mitral valve stenosis rheumatic valve, severe mitral regurgitation with severe pulmonary hypertension, estimated pulmonary artery pressure of 55 mmHg with severely dilated both atrium and prominent right ventricle with dilated IVC. discussed with Dr. Page, he recommended medical therapy at this time considering her to be high risk for morbidity and mortality if she undergoes valve surgery. She is not a candidate for mitral clip secondary to her mitral stenosis Was referred once again to Dr. Davila in January 2019 for evaluation for possible TMVR. Decided to continue with conservative management at this time. Possible TMVR, was referred to [facility] previously, will arrange for reevaluation Coronary artery disease, small vessel disease, nonobstructive disease, the prosthetic valve was functioning normally. Pulmonary artery pressure was 50/26, pulmonary capillary wedge pressure 35, right ventricular pressure 53/17. cardiac catheterization was done in September 2014. Stress test done in December 2016 showing no ischemia or infarction, EF 41 percent, continue to monitor Carotid stenosis, continue to monitor, followed by heart and vascular care. 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 followed and monitored by heart and vascular care. Hypertension, continue to monitor blood pressure Hyperlipidemia, continue on current medication monitor lipids Right hip fracture in May 2018 status post surgical repair, recovered well. Thank you for your consultation. Please call me if you have any questions. Zack Orozco MD, FACP, FACC, FSCAI, FHRS, CCDS Interventional Cardiology Cardiac Electrophysiology Vascular Medicine and Endovascular Interventions Cristiano OROZCO MD Aug 23, 2019 15:03
[2019-08-23 16:00] VITALS: BP 105/40
[2019-08-23] MEDS: warFARin 2.5 MG (COUMADIN) TAB PO SCH (18:17)
[2019-08-23 20:00] VITALS: BP 96/49
[2019-08-23] MEDS: MELATONIN 3 MG TABLET PO PRN (20:45)
[2019-08-24] VITALS (7 sets, daily range): BP systolic 101–122; BP diastolic 39–57
[2019-08-24] MEDS: methylPREDNISolone 40 MG/ML (Solu-MEDROL) VIAL IV SCH ×4 (00:02→18:40)
[2019-08-24] MEDS: RT-ALBUTEROL/IPRATROPIUM 3 ML (DUONEB) VIAL INH SCH ×6 (02:13→21:58)
[2019-08-24 03:58] LABS: BASOPHILS % (AUTO) 0 % (0-10); EOSINOPHILS % (AUTO) 0 % (0-10); HEMATOCRIT 27 % (35-52); HEMOGLOBIN 8.3 G/DL (11.5-16.0); LYMPHOCYTES # (AUTO) 0.2 X 10^3 (1.0-4.0); LYMPHOCYTES % (AUTO) 5 % (12-44); MEAN CORPUSCULAR HEMOGLOBIN 32 PG (25-34); MEAN CORPUSCULAR HGB CONC 31 G/DL (32-36); MEAN CORPUSCULAR VOLUME 104 FL (80-99); MONOCYTES # (AUTO) 0.4 X 10^3 (0.0-1.0); MONOCYTES % (AUTO) 9 % (0-12); NEUTROPHILS # (AUTO) 3.6 X 10^3 (1.8-7.8); NEUTROPHILS % (AUTO) 86 % (42-75); PLATELET COUNT 136 10^3/uL (130-400); RED CELL DISTRIBUTION WIDTH 14.6 % (10.0-14.5); WHITE BLOOD COUNT 4.1 10^3/uL (4.3-11.0)
[2019-08-24 04:17] LABS: CALCIUM 8.8 MG/DL (8.5-10.1); CREATININE SERUM 1.52 MG/DL (0.60-1.30); MAGNESIUM 2.1 MG/DL (1.6-2.4); PHOSPHORUS 3.2 MG/DL (2.3-4.7); POTASSIUM 3.8 MMOL/L (3.6-5.0)
[2019-08-24] MEDS: LEVOTHYROXINE 100 MCG (LEVOTHROID) TAB PO SCH (06:23)
[2019-08-24] MEDS: FUROSEMIDE 40 MG/4 ML INJ (LASIX) IVP SCH ×2 (06:23→18:40)
--- NOTE | 2019-08-24 06:48 | Diagnostic Imaging Report ---
Portable erect AP chest at 3:48. Indication: Pneumonia. The marked cardiomegaly, the sternotomy wires and the left-sided pacemaker seen on the prior exam of 08/23/2019 are again evident and no different. As on the previous study there are alveolar/interstitial pulmonary infiltrates involving both lungs and there is a small amount of fluid in each lung base. These findings may be secondary to pneumonia/atelectasis, pulmonary edema or a combination of all 3. The lungs do seem slightly better aerated than on the prior exam. The mediastinum is not widened. The osseous structures are intact. IMPRESSION: The overall appearance of the chest has not changed significantly since the prior study. However the lungs do seem somewhat better aerated. A followup exam would be recommended for continued evaluation. Dictated by: Dictated on workstation # [id number]
[2019-08-24] MEDS: MEXILETINE 150 MG (MEXITIL) CAPSULE PO SCH ×2 (08:08→21:43)
[2019-08-24] MEDS: ENOXAPARIN 80 MG/0.8 ML (LOVENOX) SYR SC SCH (08:08)
[2019-08-24] MEDS: DOCUSATE SODIUM 100 MG (COLACE) CAP PO SCH ×2 (08:09→21:30)
[2019-08-24] MEDS: DIGOXIN 0.125 MG (LANOXIN) TAB PO SCH (08:09)
[2019-08-24] MEDS: guaiFENesin (MUCINEX) 600 MG TAB PO SCH ×2 (08:09→21:30)
[2019-08-24] MEDS: SENNOSIDES 8.6 MG (SENOKOT) TAB PO SCH ×2 (08:09→21:30)
[2019-08-24] MEDS: POLYETHYLENE GLYCOL 17 GM (MIRALAX) PACK PO SCH ×2 (08:09→21:43)
[2019-08-24] MEDS: rOPINIRole 0.25 MG (REQUIP) TAB PO SCH ×3 (08:09→21:31)
[2019-08-24] MEDS: PANTOPRAZOLE 40 MG (PROTONIX) TAB PO SCH (08:09)
[2019-08-24 10:02] LABS: INR 1.6 (0.8-1.4); PROTHROMBIN TIME PATIENT 19.2 SEC (12.2-14.7)
--- NOTE | 2019-08-24 10:04 | Progress Note - Hospitalist ---
Subjective HPI/CC On Admission Date Seen by Provider: Aug 24, 2019 Time Seen by Provider: 10:00 Anisha Mcfarland is an 84-year-old female with past medical history of hypertension, hyperlipidemia, chronic kidney disease, mechanical aortic valve, mitral valve stenosis, diastolic heart failure, coronary artery disease, peripheral artery disease, who presented with shortness of breath. She reports that she is feeling very short of breath and was getting winded with minimal activity. She was also having fevers and chills at home. She was measured at 101 while still at home. She had a mild cough but it was nonproductive. She h ad one episode of nausea and vomiting yesterday morning after eating a banana and a [place] cookie. She was able to eat some broth last night with out issue. She is not feeling hungry this morning. She denies abdominal pain and diarrhea. She denies dysuria. She denies chest pain. Subjective/Events-last exam Pt reports feeling well. Breathing subjectively improved. Objective Exam Vital Signs Vital Signs Date Time Temp Pulse Resp B/P (MAP) Pulse Ox O2 Delivery O2 Flow Rate FiO2 08/24/19 08:05 37.2 86 22 122/56 (78) 99 Vapotherm 25.00 40.00 08/24/19 08:00 40 Capillary Refill : Less Than 3 Seconds General Appearance: No Apparent Distress, Chronically ill Respiratory: Lungs Clear, Accessory Muscle Use Cardiovascular: Regular Rate, Rhythm, Systolic Murmur Gastrointestinal: Normal Bowel Sounds, Non Tender, Soft Neurologic/Psychiatric: Alert, Oriented x3 Results/Procedures Lab Laboratory Tests 08/24/19 03:40 Patient resulted labs reviewed. Imaging: Reviewed Imaging Report Assessment/Plan Assessment and Plan Assess & Plan/Chief Complaint Healthcare associated pneumonia Acute on chronic hypoxic respiratory failure Chronic heart failure with preserved ejection fraction Cont BiPAP prn, currently on vapotherm - Morphine for air hunger added as well- tolerating well - Pulm consulted, appreciate recs Continue cefepime, Lasix, Steroids Cardiology consulted, appreciate recs DARA on CKD Creatinine stable- trend Continue to monitor closely and avoid nephrotoxins as able Supratherapeutic INR- resolved Mechanical aortic valve Paroxysmal atrial fibrillation INR pending- continue Lovenox until therapeutic with INR continue digoxin Hypertension Hold antihypertensives with low blood pressures this morning and diuresis CAD PAD Mitral valve stenosis GERD clinically significant, no acute management needs, continue home meds Constipation - Bowel regimen added Debility - PT/OT ordered - May need SNF placement upon discharge End of life counseling - Discussed at length with patient and family on 08/21- She is an appropriate hospice candidate but she is not ready for that yet. Gave medical recommendation that she could benefit from hospice and should be a DNR. Family continued discussion regarding code status and she is now a DNR but not yet a DNI. 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 is poor DVT prophylaxis: Lovenox Diagnosis/Problems Diagnosis/Problems (1) Atrial fibrillation, controlled Status: Chronic (2) PVD (peripheral vascular disease) Status: Chronic (3) PAD (peripheral artery disease) Status: Chronic (4) HTN (hypertension) Status: Chronic (5) Debility Status: Chronic (6) Venous ulcer (7) CHF (congestive heart failure) Status: Chronic (8) Acute exacerbation of congestive heart failure Status: Acute (9) Supratherapeutic INR Status: Acute (10) Pneumonia Status: Acute Qualifiers: Pneumonia type: due to unspecified organism Laterality: unspecified laterality Lung location: unspecified part of lung Qualified Codes: J18.9 - Pneumonia, unspecified organism (11) HCAP (healthcare-associated pneumonia) Status: Acute (12) Acute on chronic respiratory failure with hypoxemia Status: Acute (13) Acute kidney injury superimposed on chronic kidney disease Status: Acute (14) Aortic valve replaced Status: Chronic Clinical Quality Measures DVT/VTE Risk/Contraindication: Risk Factor Score Per Nursin RFS Level Per Nursing on Admit: 4+=Very High VENANCIO ARREAGA MD Aug 24, 2019 10:04
--- NOTE | 2019-08-24 10:30 | NUR ---
"RD ASSESSMENT PMHx: HLD; HTN; CKD; CAD; PAD; GERD; hypothyroidism PT INTERACTION: Pt was awake and pleasant during nutrition assessment. Pt states they have been eating better since last assessment, and they are tolerating the Ensure Clear very well. Note pt avg PO intake of 50-75% x2d, per chart review. Pt states no recent issues with n/v since last assessment. Pt states some episodes of constipation and that she has not had a BM yet. Note pt currently on bowel regimen of miralax BID; senna BID; and colace BID, per chart review. ABNORMAL NUTRITION-RELATED LAB VALUES LOW: HIGH: BUN 59; cr 1.52; glu 125 Est. kcal needs: [id number] kcal | 25-30 kcal/kg Est. Pro needs: 55-69 g Pro | 0.8-1.0 g Pro/kg PES STATEMENT: Inadequate oral intake (NI-2.1) related to loss of appetite | constipation as evidenced by pt interview | avg PO intake 50-75% x2d INTERVENTION: Continue with current diet order of 2000mg Sodium diet. Continue with current supplementation order of Ensure Clear with meals TID. Provides 240 kcal and 8 g Pro per serving. Will continue to follow and reassess as pt needs and status change. MONITOR/EVALUATE: PO Intake; Plan of Care; Hydration Status; Weight Status; Lab Values Katherine Gonzales, , RD, LD"
--- NOTE | 2019-08-24 11:08 | Cardiology Progress Note ---
Cardiology SOAP Progress Note Subjective: Shortness of breath. Objective: I&O/Vital Signs 08/24/19 08/24/19 08/24/19 08/24/19 00:00 01:00 02:16 04:00 Temp 36.9 36.9 Pulse 82 85 90 87 Resp 16 28 16 B/P (MAP) 102/53 (69) 101/39 (59) Pulse Ox 97 93 95 O2 Delivery NIV Bilevel NIV Bilevel O2 Flow Rate 28.00 28.00 28.00 08/24/19 08/24/19 08/24/19 08/24/19 05:54 07:00 08:00 08:05 Temp 37.2 Pulse 87 90 86 Resp 28 22 B/P (MAP) 122/56 (78) Pulse Ox 93 99 O2 Delivery Vapotherm Vapotherm O2 Flow Rate 28.00 25.00 25.00 40.00 FiO2 40 08/24/19 10:04 Pulse Ox 89 O2 Delivery Vapotherm O2 Flow Rate 25.00 FiO2 40 08/24/19 00:00 Intake Total 500 ml Output Total 1025 ml Balance -525 ml Weight (Pounds): 138 Weight (Ounces): 6.0 Weight (Calculated Kilograms): 62.591346 Constitutional: AAO x 3, well-developed, well-nourished Respiratory: No accessory muscle use; chest is bilaterally symmetric, other (good bilateral air entry, diminished at the bases) Cardiovascular: regular rate-rhythm, S1 and S2 (mech S2, 2/6 MSM, soft early luna murmur) Gastrointestional: No tender, No guarding, No rebound; audible bowel sounds Extremities: normal range of motion, non-tender, normal inspection; No clubbing, No cyanosis; no lower extremity edema bilateral; No significant edema Neurologic/Psychiatric: no motor/sensory deficits, alert, normal mood/affect, oriented x 3, other (moves all limbs equally) Skin: normal color; No rash on exposed areas, No ulcerations on exposed areas Results/Procedures: Labs Laboratory Tests 08/24/19 03:20: Prothrombin Time 19.2H, INR Comment 1.6H 08/24/19 03:40: White Blood Count 4.1L, Red Blood Count 2.59L, Hemoglobin 8.3L, Hematocrit 27L, Mean Corpuscular Volume 104H, Mean Corpuscular Hemoglobin 32, Mean Corpuscular Hemoglobin Concent 31L, Red Cell Distribution Width 14.6H, Platelet Count 136, Mean Platelet Volume 11.0H, Neutrophils (%) (Auto) 86H, Lymphocytes (%) (Auto) 5L, Monocytes (%) (Auto) 9, Eosinophils (%) (Auto) 0, Basophils (%) (Auto) 0, Neutrophils # (Auto) 3.6, Lymphocytes # (Auto) 0.2L, Monocytes # (Auto) 0.4, Eosinophils # (Auto) 0.0, Basophils # (Auto) 0.0, Sodium Level 137, Potassium Level 3.8, Chloride Level 101, Carbon Dioxide Level 25, Anion Gap 11, Blood Urea Nitrogen 59H, Creatinine 1.52H, Estimat Glomerular Filtration Rate 33, BUN/Creatinine Ratio 39, Glucose Level 125H, Calcium Level 8.8, Phosphorus Level 3.2, Magnesium Level 2.1 Microbiology 08/18/19 Gram Stain - Final, Complete 08/18/19 Sputum Culture - Final, Complete Usual upper respiratory rowan 08/15/19 Blood Culture - Final, Complete No growth A/P: Assessment/Dx: Acute respiratory failure Pneumonia Congestive heart failure Coronary artery disease Plan: Acute respiratory failure secondary to pneumonia, receiving antibiotic and currently on BiPAP. Managed by Dr. Pichardo. Congestive heart failure, acute on chronic left ventricular systolic dys function, nonischemic cardiomyopathy, valvular heart disease, echocardiogram done on August 18, 2019 showing ejection fraction 35-40 percent, left atrium is severely enlarged 8.3 cm, severe mitral valve stenosis, moderate severe mitral regurgitation, prosthetic valve in the aortic position functioning normally, severe pulmonary hypertension with PA pressure 65 mmHg. Continue on diuretics and monitor Bilateral pleural effusion, continue on diuretics and monitor Permanent atrial fibrillation, underlying sinus node dysfunction, had permanent pacemaker. Continue to monitor Acute on chronic renal insufficiency. Continue to monitor renal function. 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 Subtherapeutic INR. Bridging with Lovenox. Peripheral vascular disease, patient has venous insufficiency on the right side that required ablation, peripheral angiogram May 2017, intervention to the anterior tibial artery, the wound has healed then developed a new ulcer after a trauma. Did balloon angioplasty to the right anterior tibial artery proximal portion has significant improvement the distal portion is occluded and did not improve, the posterior tibial artery and peroneal arteries were occluded with no collaterals in that area. The right SFA has multiple segment of moderate to severe stenosis, balloon angioplasty to the mid SFA with good results. Abdominal aorta has moderate disease, the left SFA has mild to moderate disease down to the trifurcation. Patient has nonhealing wounds to right ankle, underwent peripheral angiogram with Dr. Arias on July 08, 2019 with right SFA and anterior tibial artery angioplasty with good results. continue to monitor Severe mitral valve stenosis rheumatic valve, severe mitral regurgitation with severe pulmonary hypertension, estimated pulmonary artery pressure of 55 mmHg with severely dilated both atrium and prominent right ventricle with dilated IVC. discussed with Dr. Page, he recommended medical therapy at this time considering her to be high risk for morbidity and mortality if she undergoes valve surgery. She is not a candidate for mitral clip secondary to her mitral stenosis Was referred once again to Dr. Davila in January 2019 for evaluation for possible TMVR. Decided to continue with conservative management at this time. Possible TMVR, was referred to [facility] previously, will arrange for reevaluation Coronary artery disease, small vessel disease, nonobstructive disease, the prosthetic valve was functioning normally. Pulmonary artery pressure was 50/26, pulmonary capillary wedge pressure 35, right ventricular pressure 53/17. cardiac catheterization was done in September 2014. Stress test done in December 2016 showing no ischemia or infarction, EF 41 percent, continue to monitor Carotid stenosis, continue to monitor, followed by heart and vascular care. 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 followed and monitored by heart and vascular care. Hypertension, continue to monitor blood pressure Hyperlipidemia, continue on current medication monitor lipids Right hip fracture in May 2018 status post surgical repair, recovered well. Thank you for your consultation. Please call me if you have any questions. Zack Orozco MD, FACP, FACC, FSCAI, FHRS, CCDS Interventional Cardiology Cardiac Electrophysiology Vascular Medicine and Endovascular Interventions Cristiano OROZCO MD Aug 24, 2019 11:07
[2019-08-24] MEDS ORDERED: CEFEPIME 2 GM (MAXIPIME) VIAL ONE (12:50)
[2019-08-24] MEDS ORDERED: WATER (STERILE) FOR INJECTION 20 ML ONE (12:50)
[2019-08-24] MEDS: CEFEPIME INJECTION 2,000 MG in WATER (STERILE) FOR INJECTION 20 ML IV SCH (12:58)
[2019-08-24] MEDS: warFARin 2.5 MG (COUMADIN) TAB PO SCH (18:41)
--- NOTE | 2019-08-24 20:11 | NUR ---
FAMILY TOLD RN THAT VAPOTHERM IS NOT WORKING AND DEMANDED RT TO COME LOOK AT IT. I ATTEMPTED TO EXPLAIN THAT PT IS ON 15 LITER VERSUS 30 LITERS SHE WAS PREVIOUSLY ON SO IT ISN'T BLOWING HARD BEFORE. WATER CHANGED ATT BAG WAS GETTING LOW ABOUT 1/4 BAG LEFT. REPORTED BACK TO RN
[2019-08-24] MEDS: LORazepam 0.5 MG (ATIVAN) TABLET PO PRN (23:45)
[2019-08-24] MEDS: MELATONIN 3 MG TABLET PO PRN (23:45)
[2019-08-25] VITALS (7 sets, daily range): BP systolic 115–152; BP diastolic 49–76
[2019-08-25] MEDS: methylPREDNISolone 40 MG/ML (Solu-MEDROL) VIAL IV SCH ×4 (00:48→18:22)
[2019-08-25] MEDS: RT-ALBUTEROL/IPRATROPIUM 3 ML (DUONEB) VIAL INH SCH ×6 (02:07→21:32)
[2019-08-25 04:02] LABS: BASOPHILS % (AUTO) 0 % (0-10); EOSINOPHILS % (AUTO) 0 % (0-10); HEMATOCRIT 28 % (35-52); HEMOGLOBIN 8.7 G/DL (11.5-16.0); LYMPHOCYTES # (AUTO) 0.2 X 10^3 (1.0-4.0); LYMPHOCYTES % (AUTO) 5 % (12-44); MEAN CORPUSCULAR HEMOGLOBIN 32 PG (25-34); MEAN CORPUSCULAR HGB CONC 31 G/DL (32-36); MEAN CORPUSCULAR VOLUME 104 FL (80-99); MEAN PLATELET VOLUME 10.6 FL (7.4-10.4); MONOCYTES # (AUTO) 0.2 X 10^3 (0.0-1.0); MONOCYTES % (AUTO) 6 % (0-12); NEUTROPHILS % (AUTO) 90 % (42-75); PLATELET COUNT 131 10^3/uL (130-400); RED CELL DISTRIBUTION WIDTH 14.9 % (10.0-14.5); WHITE BLOOD COUNT 3.3 10^3/uL (4.3-11.0)
[2019-08-25 04:13] LABS: INR 1.6 (0.8-1.4); PROTHROMBIN TIME PATIENT 19.9 SEC (12.2-14.7)
[2019-08-25 04:20] LABS: CALCIUM 8.8 MG/DL (8.5-10.1); CREATININE SERUM 1.55 MG/DL (0.60-1.30); PHOSPHORUS 3.2 MG/DL (2.3-4.7)
[2019-08-25] MEDS: LEVOTHYROXINE 100 MCG (LEVOTHROID) TAB PO SCH (05:42)
[2019-08-25] MEDS: FUROSEMIDE 40 MG/4 ML INJ (LASIX) IVP SCH ×2 (05:42→18:23)
--- NOTE | 2019-08-25 08:05 | Diagnostic Imaging Report ---
INDICATION: Pneumonia and hypoxia Upright portable AP view of the chest is obtained with comparison made to the study of 08/24/2019. Generalized cardiomegaly persists. There is continued pulmonary venous congestion and increased density in the perihilar regions. There is blunting of both costophrenic sulci without evidence of pneumothorax. IMPRESSION: Bilateral perihilar airspace disease which could be related to edema and/or pneumonia. There is also mild to moderate amount of bilateral pleural fluid. Dictated by: Dictated on workstation # [id number]
[2019-08-25] MEDS: DIGOXIN 0.125 MG (LANOXIN) TAB PO SCH (08:55)
[2019-08-25] MEDS: guaiFENesin (MUCINEX) 600 MG TAB PO SCH ×2 (08:55→20:52)
[2019-08-25] MEDS: DOCUSATE SODIUM 100 MG (COLACE) CAP PO SCH ×2 (08:55→20:52)
[2019-08-25] MEDS: SENNOSIDES 8.6 MG (SENOKOT) TAB PO SCH ×2 (08:55→20:52)
[2019-08-25] MEDS: rOPINIRole 0.25 MG (REQUIP) TAB PO SCH ×3 (08:55→20:52)
[2019-08-25] MEDS: ENOXAPARIN 80 MG/0.8 ML (LOVENOX) SYR SC SCH (08:56)
[2019-08-25] MEDS: MEXILETINE 150 MG (MEXITIL) CAPSULE PO SCH ×2 (08:56→20:54)
[2019-08-25] MEDS: PANTOPRAZOLE 40 MG (PROTONIX) TAB PO SCH (08:56)
[2019-08-25] MEDS: POLYETHYLENE GLYCOL 17 GM (MIRALAX) PACK PO SCH ×2 (08:56→20:54)
--- NOTE | 2019-08-25 09:53 | Occupational Ther Daily Note ---
OT Current Status-Daily Note Subjective Pt alert, lying in bed. Pt agrees to therapy. Son present in room. No c/o pain. Mental Status/Objective Patient Orientation: Person, Place, Time, Situation Attachments: Gomes Catheter, IV, Oxygen (vapotherm) ADL-Treatment Therapy Code Descriptions/Definitions Functional [place] Measure: 0=Not Assessed/NA 4=Minimal Assistance 1=Total Assistance 5=Supervision or Setup 2=Maximal Assistance 6=Modified [place] 3=Moderate Assistance 7=Complete IndependenceSCALE: Activities may be completed with or without assistive devices. 7-Ffrfqoejps-ewphrni completes the activity by him/herself with no assistance from a helper. 5-Set-up or Clean-up Assistance-helper sets up or cleans up; patient completes activity. [place] assists only prior to or following the activity. 4-Supervision or Touching Assistance-helper provides verbal cues and/or touching/steadying and/or contact guard assistance as patient completes activity. Assistance may be provided throughout the activity or intermittently. 3-Partial/Moderate Assistance-helper does LESS THAN HALF the effort. [place] lifts, holds or supports trunk or limbs, but provides less than half the effort. 2-Substantial/Maximal Assistance-helper does MORE THAN HALF the effort. [place] lifts or holds trunk or limbs and provides more than half the effort. 4-Jwkvdruzg-rfuryq does ALL the effort. Patient does none of the effort to complete the activity. Or, the assistance of 2 or more helpers is required for the patient to complete the activity. If activity was not attempted, code reason: 7-Patient Refused. 9-Not Applicable-not attempted and the patient did not perform the activity before the current illness, exacerbation or injury. 10-Not Attempted due to Environmental Limitations-(lack of equipment, weather restraints, etc.). 88-Not Attempted due to Medical Conditions or Safety Concerns. On/Off Footwear: 5 Other Treatment Pt able to don socks lying in bed. Min A for supine to EOB. O2 levels dropped to 88%, pt instructed to breath in through nose and level back to 94%. Min A for EOB to stand with instructions to push up from bed instead of FWW. CGA to side step closer to HOB. CGA for EOB to supine. After therapy, pt lying in bed with call light/phone in reach. All needs met in room. OT Short Term Goals Short Term Goals Time Frame: Sep 06, 2019 Eatin Oral hygiene: 3 Toileting hygiene: 3 Shower/bathe self: 3 Upper body dressin Lower body dressin Putting on/taking off footwear: 3 OT [place] Goals Senior [facility] Goals Time Frame: Sep 13, 2019 Eating (QC): 6 Oral Hygiene (QC): 5 Toileting Hygiene (QC): 4 Shower/Bathe Self (QC): 4 Upper Body Dressing (QC): 4 Lower Body Dressing (QC): 4 On/Off Footwear (QC): 4 Additional Goals: 1-Demonstrate ADL Tasks, 2-Verbalize Understanding, 3- ImproveStrength/Rick 1=Demonstrate adherence to instructed precautions during ADL tasks. 2=Patient will verbalize/demonstrate understanding of assistive devices/modifications for ADL. 3=Patient will improve strength/tolerance for activity to enable patient to perform ADL's. OT Education/Plan Problem List/Assessment Assessment: Decreased Activ Tolerance, Decreased UE Strength, Impaired Funct Balance, Impaired Self-Care Skills Discharge Recommendations Plan/Recommendations: Continue POC Treatment Plan/Plan of Care Patient would benefit from OT for education, treatment and training to promote independence in ADL's, mobility, safety and/or upper extremity function for ADL's. Plan of Care: ADL Retraining, Functional Mobility, UE Funct Exercise/Act Treatment Duration: Sep 13, 2019 Frequency: 5 times per week Estimated Hrs Per Day: .25 hour per day Agreement: Yes Rehab Potential: Fair Time/GCodes Start Time: 09:15 Stop Time: 09:31 Total Time Billed (hr/min): 16 Billed Treatment Time 1 visit-FA 1 (16 min) HARDIK NUNEZ Aug 25, 2019 09:53
--- NOTE | 2019-08-25 11:07 | Progress Note - Hospitalist ---
Subjective HPI/CC On Admission Date Seen by Provider: Aug 25, 2019 Time Seen by Provider: 09:00 Anisha Mcfarland is an 84-year-old female with past medical history of hypertension, hyperlipidemia, chronic kidney disease, mechanical aortic valve, mitral valve stenosis, diastolic heart failure, coronary artery disease, peripheral artery disease, who presented with shortness of breath. She reports that she is feeling very short of breath and was getting winded with minimal activity. She was also having fevers and chills at home. She was measured at 101 while still at home. She had a mild cough but it was nonproductive. She h ad one episode of nausea and vomiting yesterday morning after eating a banana and a [place] cookie. She was able to eat some broth last night with out issue. She is not feeling hungry this morning. She denies abdominal pain and diarrhea. She denies dysuria. She denies chest pain. Subjective/Events-last exam She reports feeling pretty good this morning. She denies shortness of breath. She did not sleep well with the BiPAP on last night. She denies fevers and chills. She denies chest pain. She denies nausea, vomiting, and abdominal pain. She remains constipated. Objective Exam Vital Signs Vital Signs Date Time Temp Pulse Resp B/P (MAP) Pulse Ox O2 Delivery O2 Flow Rate FiO2 08/25/19 09:00 96 Vapotherm 15.00 40 08/25/19 07:40 36.5 87 20 123/68 (86) Capillary Refill : Less Than 3 Seconds General Appearance: No Apparent Distress, Chronically ill, Thin HEENT: PERRL/EOMI, Moist Mucous Membranes, Other (poor dentition) Neck: Normal Inspection, Supple Respiratory: No Respiratory Distress, Crackles, Other (wearing vapotherm) Cardiovascular: Regular Rate, Rhythm, No Murmur, Other (Mechanical heart sounds) Gastrointestinal: Normal Bowel Sounds, Non Tender, Soft Extremity: Normal Inspection, Non Tender, No Pedal Edema Neurologic/Psychiatric: Alert, Oriented x3, No Motor/Sensory Deficits, Normal Mood/Affect Skin: Normal Color, Warm/Dry Lymphatic: No Adenopathy Results/Procedures Lab Laboratory Tests 08/25/19 03:49 Patient resulted labs reviewed. Imaging: Reviewed Imaging Report Assessment/Plan Assessment and Plan Assess & Plan/Chief Complaint Healthcare associated pneumonia Acute on chronic hypoxic respiratory failure Chronic heart failure with preserved ejection fraction Wean vapotherm as able to nasal cannula Attempt off BiPAP tonight Continue cefepime, Lasix, Steroids Cardiology consulted, appreciate recs DARA on CKD Creatinine stable Continue to monitor closely and avoid nephrotoxins as able Supratherapeutic INR, resolved Mechanical aortic valve Paroxysmal atrial fibrillation INR 1.6, continue Lovenox until therapeutic with INR continue digoxin Constipation Continue bowel regimen Hypertension Hold antihypertensives with low blood pressures and diuresis, will resume as needed CAD PAD Mitral valve stenosis GERD clinically significant, no acute management needs, continue home meds Debility - PT/OT ordered - May need SNF placement upon discharge DVT prophylaxis: Lovenox Diagnosis/Problems Diagnosis/Problems (1) HCAP (healthcare-associated pneumonia) Status: Acute (2) Supratherapeutic INR Status: Acute (3) Acute on chronic respiratory failure with hypoxemia Status: Acute (4) Acute kidney injury superimposed on chronic kidney disease Status: Acute Clinical Quality Measures DVT/VTE Risk/Contraindication: Risk Factor Score Per Nursin RFS Level Per Nursing on Admit: 4+=Very High KATHERINE BRADFORD MD Aug 25, 2019 11:07
--- NOTE | 2019-08-25 11:13 | Physical Therapy Daily Note ---
PT Daily Note-Current Subjective Patient currently on vapotherm. Agrees to OOB activity. Pain Numeric Pain Scale: 5-Moderate Pain Location: Right Location Body Site: Calf Pain Description: Chronic Mental Status Patient Orientation: Normal For Age Attachments: Oxygen (vapotherm), Gomes Catheter Transfers SCALE: Activities may be completed with or without assistive devices. 7-[place]-uablbnr completes the activity by him/herself with no assistance from a helper. 5-Set-up or Clean-up Assistance-helper sets up or cleans up; patient completes activity. [place] assists only prior to or following the activity. 4-Supervision or Touching Assistance-helper provides verbal cues and/or touching/steadying and/or contact guard assistance as patient completes activity. Assistance may be provided throughout the activity or intermittently. 3-Partial/Moderate Assistance-helper does LESS THAN HALF the effort. [place] lifts, holds or supports trunk or limbs, but provides less than half the effort. 2-Substantial/Maximal Assistance-helper does MORE THAN HALF the effort. [place] lifts or holds trunk or limbs and provides more than half the effort. 8-Zjfqzudtv-pqierv does ALL the effort. Patient does none of the effort to complete the activity. Or, the assistance of 2 or more helpers is required for the patient to complete the activity. If activity was not attempted, code reason: 7-Patient Refused. 9-Not Applicable-not attempted and the patient did not perform the activity before the current illness, exacerbation or injury. 10-Not Attempted due to Environmental Limitations-(lack of equipment, weather restraints, etc.). 88-Not Attempted due to Medical Conditions or Safety Concerns. Roll Left & Right (QC): 5 Sit to Lying (QC): 5 Lying to Sitting/Side of Bed(Q: 5 Sit to Stand (QC): 4 Chair/Xdd-xa-Obxho Xfer(QC): 4 Weight Bearing Right Lower Extremity: Right Weight Bearing/Tolerated Left Lower Extremity: Left Weight Bearing/Tolerated Gait Training Does the Patient Walk?: Yes Distance: 5' x 2 Gait Assistive Device: FWW steady functional gait sequence Exercises Supine Ex: Ankle pumps, Heel Slides, Straight leg raise Supine Reps: 12 Seated Therapy Exercises: Ankle pumps, Long arc quads Seated Reps: 12 Standing: Marching Standing Reps: 12 (2 sets) Assessment Patient's SAO2 maintained >90% with activity on vapotherm. PT to continue to increase activity as tolerated by patient. PT Combination Welder Goals Combination Welder Goals PT Combination Welder Goals Time Frame: Aug 29, 2019 Roll Left & Right (QC): 4 Sit to Lying (QC): 4 Lying-Sitting on Side/Bed(QC): 4 Sit to Stand (QC): 4 Chair/Vjm-om-Qxvfy Xfer(QC): 4 Walk 10 feet (QC): 4 Walk 50ft with 2 Turns (QC): 4 PT Plan Treatment/Plan Treatment Plan: Continue Plan of Care Treatment Plan: Bed Mobility, Education, Functional Activity Rick, Functional Strength, Gait, Safety, Therapeutic Exercise, Transfers Treatment Duration: Aug 29, 2019 Frequency: 6 times per week Estimated Hrs Per Day: .25 hour per day Patient and/or Family Agrees t: Yes Time/GCodes Time In: 1045 Time Out: 1100 Total Billed Treatment Time: 15 Total Billed Treatment 1 visit FA 15 min KATHERINE RUTHERFORD PT Aug 25, 2019 11:13
--- NOTE | 2019-08-25 13:09 | Pulmonary Progress Note ---
Subjective Time Seen by a Provider: 13:06 Sepsis Event Evaluation Height, Weight, BMI Height: 5'6.00" Weight: 138lbs. 6.0oz. 62.016504xa; 22.22 BMI Method:Estimated Exam Exam Vital Signs Date Time Temp Pulse Resp B/P (MAP) Pulse Ox O2 Delivery O2 Flow Rate FiO2 08/25/19 12:44 85 08/25/19 12:26 36.5 90 96 08/25/19 11:50 37.1 86 18 121/55 (77) 96 Vapotherm 08/25/19 11:25 96 Vapotherm 15.00 40 08/25/19 09:00 96 Vapotherm 15.00 40 08/25/19 07:41 97 Vapotherm 15.00 40 08/25/19 07:40 36.5 87 20 123/68 (86) 97 Vapotherm 15.00 08/25/19 07:00 85 08/25/19 04:00 36.8 80 16 152/55 (87) 98 NIV Bilevel 08/25/19 02:07 83 27 95 28.00 08/25/19 01:00 86 08/25/19 00:00 36.6 80 16 115/76 (89) 08/24/19 22:30 36.6 84 17 105/52 (69) 93 08/24/19 21:58 90 27 94 28.00 08/24/19 21:00 Vapotherm 25.00 40 08/24/19 19:28 90 Vapotherm 15.00 40 08/24/19 19:27 37.0 88 18 117/57 (77) 92 08/24/19 19:00 89 08/24/19 15:38 36.8 85 16 110/52 (71) 08/24/19 14:45 90 Vapotherm 20.00 40 08/24/19 13:05 Vapotherm 20.00 40.00 I & O 08/25/19 07:00 Intake Total 1040 ml Output Total 1170 ml Balance -130 ml Height & Weight Height: 5'6.00" Weight: 138lbs. 6.0oz. 62.533339mo; 22.22 BMI Method:Estimated General Appearance: Chronically ill, Mild Distress HEENT: PERRL/EOMI, Pharynx Normal Neck: Normal Inspection Respiratory: No Accessory Muscle Use, No Respiratory Distress, Decreased Breath Sounds Cardiovascular: Regular Rate, Rhythm, Systolic Murmur Capillary Refill: Less Than 3 Seconds Gastrointestinal: non tender, soft Extremity: Inflammation, Pedal Edema Neurologic/Psychiatric: Alert, Oriented x3 Skin: Normal Color, Warm/Dry Lymphatic: No Adenopathy Results Lab Laboratory Tests 08/24/19 03:40 08/25/19 03:49 Assessment/Plan Assessment/Plan Acute on chronic hypoxic respiratory failure -O2 therapy -ABG shows worsening respiratory acidosis - solumedrol started yesterday -CXR shows some improvement. -Change Vapotherm to NC - lasix -Continue to monitor close -BiPap PRN and QHS pneumonia -s/p Cefepime Chronic heart failure with preserved ejection fraction - lasix -cardiology consulted DARA on CKD Continue to monitor closely Supratherapeutic INR - -coumadin bridging with Lovenox -Monitor closely -Hb stable thus far Paroxysmal atrial fibrillation digoxin -Cardiology following Hypertension CAD -cardiology consulted PAD GERD continue home meds ANT LOPEZ DO Aug 25, 2019 13:09
--- NOTE | 2019-08-25 13:54 | NUR ---
provided small piece of Communion and prayer.
[2019-08-25] MEDS: warFARin 2.5 MG (COUMADIN) TAB PO SCH (18:22)
--- NOTE | 2019-08-25 20:03 | Cardiology Progress Note ---
Cardiology SOAP Progress Note Subjective: Shortness of breath. Objective: I&O/Vital Signs 08/25/19 08/25/19 08/25/19 08/25/19 09:00 11:25 11:50 12:26 Temp 37.1 36.5 Pulse 86 90 Resp 18 B/P (MAP) 121/55 (77) Pulse Ox 96 96 96 96 O2 Delivery Vapotherm Vapotherm Vapotherm O2 Flow Rate 15.00 15.00 FiO2 40 40 08/25/19 08/25/19 08/25/19 08/25/19 12:44 15:26 16:00 18:40 Temp 37.0 Pulse 85 89 89 Resp 16 B/P (MAP) 120/61 (80) Pulse Ox 98 99 O2 Delivery Nasal Cannula Nasal Cannula O2 Flow Rate 6.00 5.00 08/25/19 18:42 Pulse Ox 97 O2 Delivery Nasal Cannula O2 Flow Rate 3.00 08/25/19 00:00 Intake Total 840 ml Output Total 850 ml Balance -10 ml Weight (Pounds): 138 Weight (Ounces): 6.0 Weight (Calculated Kilograms): 62.848584 Constitutional: AAO x 3, well-developed, well-nourished Respiratory: No accessory muscle use; chest is bilaterally symmetric, other (good bilateral air entry, diminished at the bases) Cardiovascular: regular rate-rhythm, S1 and S2 ([facility] S2, 2/6 MSM, soft early luna murmur) Gastrointestional: No tender, No guarding, No rebound; audible bowel sounds Extremities: normal range of motion, non-tender, normal inspection; No clubbing, No cyanosis; no lower extremity edema bilateral; No significant edema Neurologic/Psychiatric: no motor/sensory deficits, alert, normal mood/affect, oriented x 3, other (moves all limbs equally) Skin: normal color; No rash on exposed areas, No ulcerations on exposed areas Results/Procedures: Labs Laboratory Tests 08/25/19 03:49: White Blood Count 3.3L, Red Blood Count 2.70L, Hemoglobin 8.7L, Hematocrit 28L, Mean Corpuscular Volume 104H, Mean Corpuscular Hemoglobin 32, Mean Corpuscular Hemoglobin Concent 31L, Red Cell Distribution Width 14.9H, Platelet Count 131, Mean Platelet Volume 10.6H, Neutrophils (%) (Auto) 90H, Lymphocytes (%) (Auto) 5L, Monocytes (%) (Auto) 6, Eosinophils (%) (Auto) 0, Basophils (%) (Auto) 0, Neutrophils # (Auto) 3.0, Lymphocytes # (Auto) 0.2L, Monocytes # (Auto) 0.2, Eosinophils # (Auto) 0.0, Basophils # (Auto) 0.0, Prothrombin Time 19.9H, INR Comment 1.6H, Sodium Level 136, Potassium Level 4.0, Chloride Level 100, Carbon Dioxide Level 25, Anion Gap 11, Blood Urea Nitrogen 58H, Creatinine 1.55H, Estimat Glomerular Filtration Rate 32, BUN/Creatinine Ratio 37, Glucose Level 119H, Calcium Level 8.8, Phosphorus Level 3.2, Magnesium Level 2.0 Microbiology 08/18/19 Gram Stain - Final, Complete 08/18/19 Sputum Culture - Final, Complete Usual upper respiratory rowan 08/15/19 Blood Culture - Final, Complete No growth A/P: Assessment/Dx: Acute respiratory failure Pneumonia Congestive heart failure Coronary artery disease Plan: Acute respiratory failure secondary to pneumonia, receiving antibiotic and currently on BiPAP. Managed by Dr. Pichardo. Congestive heart failure, acute on chronic left ventricular systolic dysfunction, nonischemic cardiomyopathy, valvular heart disease, echocardiogram done on August 18, 2019 showing ejection fraction 35-40 percent, left atrium is severely enlarged 8.3 cm, severe mitral valve stenosis, moderate severe mitral regurgitation, prosthetic valve in the aortic position functioning normally, severe pulmonary hypertension with PA pressure 65 mmHg. Continue on diuretics and monitor Bilateral pleural effusion, continue on diuretics and monitor Permanent atrial fibrillation, underlying sinus node dysfunction, had permanent pacemaker. Continue to monitor Acute on chronic renal insufficiency. Continue to monitor renal function. 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 Subtherapeutic INR. Bridging with Lovenox. Peripheral vascular disease, patient has venous insufficiency on the right side that required ablation, peripheral angiogram May 2017, intervention to the anterior tibial artery, the wound has healed then developed a new ulcer after a trauma. Did balloon angioplasty to the right anterior tibial artery proximal portion has significant improvement the distal portion is occluded and did not improve, the posterior tibial artery and peroneal arteries were occluded with no collaterals in that area. The right SFA has multiple segment of moderate to severe stenosis, balloon angioplasty to the mid SFA with good results. Abdominal aorta has moderate disease, the left SFA has mild to moderate disease down to the trifurcation. Patient has nonhealing wounds to right ankle, underwent peripheral angiogram with Dr. Arias on July 08, 2019 with right SFA and anterior tibial artery angioplasty with good results. continue to monitor Severe mitral valve stenosis rheumatic valve, severe mitral regurgitation with severe pulmonary hypertension, estimated pulmonary artery pressure of 55 mmHg with severely dilated both atrium and prominent right ventricle with dilated IVC. discussed with Dr. Page, he recommended medical therapy at this time considering her to be high risk for morbidity and mortality if she undergoes valve surgery. She is not a candidate for mitral clip secondary to her mitral stenosis Was referred once again to Dr. Davila in January 2019 for evaluation for possible TMVR. Decided to continue with conservative management at this time. Possible TMVR, was referred to [facility] previously, will arrange for reevaluation Coronary artery disease, small vessel disease, nonobstructive disease, the prosthetic valve was functioning normally. Pulmonary artery pressure was 50/26, pulmonary capillary wedge pressure 35, right ventricular pressure 53/17. cardiac catheterization was done in September 2014. Stress test done in December 2016 showing no ischemia or infarction, EF 41 percent, continue to monitor Carotid stenosis, continue to monitor, followed by heart and vascular care. 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 followed and monitored by heart and vascular care. Hypertension, continue to monitor blood pressure Hyperlipidemia, continue on current medication monitor lipids Right hip fracture in May 2018 status post surgical repair, recovered well. Thank you for your consultation. Please call me if you have any questions. Zack Orozco MD, FACP, FACC, FSCAI, FHRS, CCDS Interventional Cardiology Cardiac Electrophysiology Vascular Medicine and Endovascular Interventions Cristiano OROZCO MD Aug 25, 2019 20:03
[2019-08-26] VITALS: BP 152/65
[2019-08-26] MEDS: methylPREDNISolone 40 MG/ML (Solu-MEDROL) VIAL IV SCH (00:52)
[2019-08-26] MEDS: RT-ALBUTEROL/IPRATROPIUM 3 ML (DUONEB) VIAL INH SCH ×6 (01:49→22:03)
[2019-08-26 04:00] VITALS: BP 150/72
[2019-08-26 04:29] LABS: BASOPHILS % (AUTO) 0 % (0-10); EOSINOPHILS % (AUTO) 0 % (0-10); HEMATOCRIT 31 % (35-52); HEMOGLOBIN 9.5 G/DL (11.5-16.0); LYMPHOCYTES # (AUTO) 0.2 X 10^3 (1.0-4.0); LYMPHOCYTES % (AUTO) 5 % (12-44); MEAN CORPUSCULAR HEMOGLOBIN 32 PG (25-34); MEAN CORPUSCULAR HGB CONC 31 G/DL (32-36); MEAN CORPUSCULAR VOLUME 104 FL (80-99); MEAN PLATELET VOLUME 10.9 FL (7.4-10.4); MONOCYTES # (AUTO) 0.3 X 10^3 (0.0-1.0); MONOCYTES % (AUTO) 5 % (0-12); NEUTROPHILS # (AUTO) 4.7 X 10^3 (1.8-7.8); NEUTROPHILS % (AUTO) 90 % (42-75); PLATELET COUNT 140 10^3/uL (130-400); RED CELL DISTRIBUTION WIDTH 14.9 % (10.0-14.5); WHITE BLOOD COUNT 5.2 10^3/uL (4.3-11.0)
[2019-08-26 04:40] LABS: PROTHROMBIN TIME PATIENT 23.1 SEC (12.2-14.7)
[2019-08-26 04:47] LABS: CALCIUM 9.1 MG/DL (8.5-10.1); CREATININE SERUM 1.53 MG/DL (0.60-1.30); POTASSIUM 4.1 MMOL/L (3.6-5.0)
[2019-08-26] MEDS: FUROSEMIDE 40 MG/4 ML INJ (LASIX) IVP SCH ×2 (06:31→17:42)
[2019-08-26] MEDS: LEVOTHYROXINE 100 MCG (LEVOTHROID) TAB PO SCH (06:32)
[2019-08-26] MEDS: predniSONE 20 MG TAB PO SCH (06:32)
[2019-08-26 07:30] VITALS: BP 127/65
[2019-08-26] MEDS: SENNOSIDES 8.6 MG (SENOKOT) TAB PO SCH ×2 (08:19→20:11)
[2019-08-26] MEDS: MEXILETINE 150 MG (MEXITIL) CAPSULE PO SCH ×2 (08:19→20:11)
[2019-08-26] MEDS: ENOXAPARIN 80 MG/0.8 ML (LOVENOX) SYR SC SCH (08:19)
[2019-08-26] MEDS: rOPINIRole 0.25 MG (REQUIP) TAB PO SCH ×3 (08:19→20:11)
[2019-08-26] MEDS: DIGOXIN 0.125 MG (LANOXIN) TAB PO SCH (08:19)
[2019-08-26] MEDS: PANTOPRAZOLE 40 MG (PROTONIX) TAB PO SCH (08:19)
[2019-08-26] MEDS: guaiFENesin (MUCINEX) 600 MG TAB PO SCH ×2 (08:19→20:11)
[2019-08-26] MEDS: DOCUSATE SODIUM 100 MG (COLACE) CAP PO SCH ×2 (08:19→20:59)
[2019-08-26] MEDS: POLYETHYLENE GLYCOL 17 GM (MIRALAX) PACK PO SCH ×2 (09:26→20:59)
--- NOTE | 2019-08-26 10:14 | Physical Therapy Daily Note ---
PT Daily Note-Current Subjective Pt. in bed and agrees to therapy. States she was on the commode for 2 hours a little while ago, declines sitting up in chair at this time. Mental Status Patient Orientation: Person, Place, Time, Situation Attachments: Oxygen, Gomes Catheter Transfers SCALE: Activities may be completed with or without assistive devices. 4-Oyyceebziw-gwsvzkx completes the activity by him/herself with no assistance from a helper. 5-Set-up or Clean-up Assistance-helper sets up or cleans up; patient completes activity. [place] assists only prior to or following the activity. 4-Supervision or Touching Assistance-helper provides verbal cues and/or touching/steadying and/or contact guard assistance as patient completes activity. Assistance may be provided throughout the activity or intermittently. 3-Partial/Moderate Assistance-helper does LESS THAN HALF the effort. [place] lifts, holds or supports trunk or limbs, but provides less than half the effort. 2-Substantial/Maximal Assistance-helper does MORE THAN HALF the effort. [place] lifts or holds trunk or limbs and provides more than half the effort. 1-Wfviyxqig-cglrow does ALL the effort. Patient does none of the effort to complete the activity. Or, the assistance of 2 or more helpers is required for the patient to complete the activity. If activity was not attempted, code reason: 7-Patient Refused. 9-Not Applicable-not attempted and the patient did not perform the activity before the current illness, exacerbation or injury. 10-Not Attempted due to Environmental Limitations-(lack of equipment, weather restraints, etc.). 88-Not Attempted due to Medical Conditions or Safety Concerns. Sit to Lying (QC): 5 Lying to Sitting/Side of Bed(Q: 5 Sit to Stand (QC): 5 Weight Bearing Right Lower Extremity: Right Weight Bearing/Tolerated Left Lower Extremity: Left Weight Bearing/Tolerated Exercises Seated Therapy Exercises: Ankle pumps, Sit to stand (2 x 5 reps), Long arc quads, Hip flexion, Hip abd/add, Glut set Seated Reps: 20 Treatments exercises Assessment Current Status: Good Progress Pt. was SBA with transfers in/out of bed today. She did very well with LE exercises at EOB. Pt.'s 02 sats briefly dropped to 90% with seated exercises but returned to 97-98% with cues for breathing. Pt. returned to bed post session, LE's elevated, call light in reach and all needs met. PT Mcc Goals Catheter Finisher And Inspector Goals PT Mcc Goals Time Frame: Aug 29, 2019 Roll Left & Right (QC): 4 Sit to Lying (QC): 4 Lying-Sitting on Side/Bed(QC): 4 Sit to Stand (QC): 4 Chair/Zdt-ja-Ivmxb Xfer(QC): 4 Walk 10 feet (QC): 4 Walk 50ft with 2 Turns (QC): 4 PT Plan Treatment/Plan Treatment Plan: Continue Plan of Care Treatment Plan: Bed Mobility, Education, Functional Activity Rick, Functional Strength, Gait, Safety, Therapeutic Exercise, Transfers Treatment Duration: Aug 29, 2019 Frequency: 6 times per week Estimated Hrs Per Day: .25 hour per day Patient and/or Family Agrees t: Yes Time/GCodes Time In: 842 Time Out: 905 Total Billed Treatment Time: 23 Total Billed Treatment 1, Ex 23' SHERRIE MAGDALENO PT Aug 26, 2019 10:14
--- NOTE | 2019-08-26 10:36 | Occupational Ther Daily Note ---
OT Current Status-Daily Note Subjective Pt alert, lying in bed. Pt stated that she has been up a lot today going to the bathroom and with PT. Pt requested no OOB activities. No c/o pain at this time. Pt stayed >90% O2 levels. Mental Status/Objective Patient Orientation: Person, Place, Time, Situation Attachments: IV, Oxygen (vapotherm), Telemetry ADL-Treatment Therapy Code Descriptions/Definitions Functional [place] Measure: 0=Not Assessed/NA 4=Minimal Assistance 1=Total Assistance 5=Supervision or Setup 2=Maximal Assistance 6=Modified [place] 3=Moderate Assistance 7=Complete IndependenceSCALE: Activities may be completed with or without assistive devices. 1-Owizrusfcp-ngixnjt completes the activity by him/herself with no assistance from a helper. 5-Set-up or Clean-up Assistance-helper sets up or cleans up; patient completes activity. [place] assists only prior to or following the activity. 4-Supervision or Touching Assistance-helper provides verbal cues and/or touching/steadying and/or contact guard assistance as patient completes activity. Assistance may be provided throughout the activity or intermittently. 3-Partial/Moderate Assistance-helper does LESS THAN HALF the effort. [place] lifts, holds or supports trunk or limbs, but provides less than half the effort. 2-Substantial/Maximal Assistance-helper does MORE THAN HALF the effort. [place] lifts or holds trunk or limbs and provides more than half the effort. 6-Qsqfnuooo-zhhsyc does ALL the effort. Patient does none of the effort to complete the activity. Or, the assistance of 2 or more helpers is required for the patient to complete the activity. If activity was not attempted, code reason: 7-Patient Refused. 9-Not Applicable-not attempted and the patient did not perform the activity before the current illness, exacerbation or injury. 10-Not Attempted due to Environmental Limitations-(lack of equipment, weather restraints, etc.). 88-Not Attempted due to Medical Conditions or Safety Concerns. Other Treatment Pt was able to complete 3 B UE exercises against gravity 2 sets of 10 reps. Pt required skilled instructions for correct technique and modifications. Pt fatigued easily and required recovery breaks. MCGHEE recommended for pt complete throughout the day. After therapy, pt lying in bed with call light/phone in reach. All needs met in room. OT Short Term Goals Short Term Goals Time Frame: Sep 06, 2019 Eatin Oral hygiene: 3 Toileting hygiene: 3 Shower/bathe self: 3 Upper body dressin Lower body dressin Putting on/taking off footwear: 3 OT Traffic Administrator Goals Custodial Goals Time Frame: Sep 13, 2019 Eating (QC): 6 Oral Hygiene (QC): 5 Toileting Hygiene (QC): 4 Shower/Bathe Self (QC): 4 Upper Body Dressing (QC): 4 Lower Body Dressing (QC): 4 On/Off Footwear (QC): 4 Additional Goals: 1-Demonstrate ADL Tasks, 2-Verbalize Understanding, 3- ImproveStrength/Rick 1=Demonstrate adherence to instructed precautions during ADL tasks. 2=Patient will verbalize/demonstrate understanding of assistive devices/modifications for ADL. 3=Patient will improve strength/tolerance for activity to enable patient to perform ADL's. OT Education/Plan Problem List/Assessment Assessment: Decreased Activ Tolerance, Impaired Coordination, Impaired Funct Balance, Impaired Self-Care Skills Discharge Recommendations Plan/Recommendations: Continue POC Treatment Plan/Plan of Care Patient would benefit from OT for education, treatment and training to promote independence in ADL's, mobility, safety and/or upper extremity function for ADL's. Plan of Care: ADL Retraining, Functional Mobility, UE Funct Exercise/Act Treatment Duration: Sep 13, 2019 Frequency: 5 times per week Estimated Hrs Per Day: .25 hour per day Agreement: Yes Rehab Potential: Fair Time/GCodes Start Time: 10:15 Stop Time: 10:25 Total Time Billed (hr/min): 10 Billed Treatment Time 1 visit-EX 1 (10 min) HARDIK NUNEZ Aug 26, 2019 10:36
--- NOTE | 2019-08-26 11:03 | Progress Note - Hospitalist ---
Subjective HPI/CC On Admission Date Seen by Provider: Aug 26, 2019 Time Seen by Provider: 09:30 Anisha Mcfarland is an 84-year-old female with past medical history of hypertension, hyperlipidemia, chronic kidney disease, mechanical aortic valve, mitral valve stenosis, diastolic heart failure, coronary artery disease, peripheral artery disease, who presented with shortness of breath. She reports that she is feeling very short of breath and was getting winded with minimal activity. She was also having fevers and chills at home. She was measured at 101 while still at home. She had a mild cough but it was nonproductive. She h ad one episode of nausea and vomiting yesterday morning after eating a banana and a [place] cookie. She was able to eat some broth last night with out issue. She is not feeling hungry this morning. She denies abdominal pain and diarrhea. She denies dysuria. She denies chest pain. Subjective/Events-last exam Patient doing better No pain is reported Weaning off O2 Family member at bedside 26/03 May need suppository Eating better Likes Ensure clear [place] flavor Conferred with RN Reviewed therapy notes Review of Systems General: Fatigue Pulmonary: Dyspnea Objective Exam Vital Signs Vital Signs Date Time Temp Pulse Resp B/P (MAP) Pulse Ox O2 Delivery O2 Flow Rate FiO2 08/26/19 10:06 94 Nasal Cannula 3.00 08/26/19 07:30 36.5 90 20 127/65 (85) 08/25/19 21:00 40 Capillary Refill : Less Than 3 Seconds General Appearance: No Apparent Distress, WD/WN, Chronically ill, Thin Respiratory: Lungs Clear Cardiovascular: Irregularly Irregular, Other (click noted) Neurologic/Psychiatric: Alert, Oriented x3, No Motor/Sensory Deficits, Normal Mood/Affect Results/Procedures Lab Laboratory Tests 08/26/19 04:14 Patient resulted labs reviewed. Imaging: Reviewed Imaging Report Assessment/Plan Assessment and Plan Assess & Plan/Chief Complaint Assessment: Healthcare associated pneumonia Acute on chronic hypoxic respiratory failure Chronic heart failure with preserved ejection fraction DARA on CKD Supratherapeutic INR, resolved Mechanical aortic valve Paroxysmal atrial fibrillation Constipation ordered suppository Hypertension holding meds CAD PAD Mitral valve stenosis GERD Debility- PT/OT ordered DVT prophylaxis on OAC Plan: Monitor labs PT/OT BM regimen Diagnosis/Problems Diagnosis/Problems (1) HCAP (healthcare-associated pneumonia) Status: Acute (2) Acute on chronic respiratory failure with hypoxemia Status: Acute (3) Acute kidney injury superimposed on chronic kidney disease Status: Acute (4) CHF (congestive heart failure) Status: Chronic (5) Venous ulcer (6) PVD (peripheral vascular disease) Status: Chronic (7) Debility Status: Chronic (8) HTN (hypertension) Status: Chronic (9) PAD (peripheral artery disease) Status: Chronic (10) Acute exacerbation of congestive heart failure Status: Acute (11) Atrial fibrillation, controlled Status: Chronic (12) Mitral valve replaced Status: Chronic Clinical Quality Measures DVT/VTE Risk/Contraindication: Risk Factor Score Per Nursin RFS Level Per Nursing on Admit: 4+=Very High AURORA CIFUENTES DO Aug 26, 2019 11:03
--- NOTE | 2019-08-26 11:29 | NUR ---
provided prayer and Communion.
[2019-08-26 11:30] VITALS: BP 115/53
--- NOTE | 2019-08-26 15:16 | Cardiology Progress Note ---
Cardiology SOAP Progress Note Subjective: Shortness of breath. Objective: I&O/Vital Signs 08/26/19 08/26/19 08/26/19 08/26/19 04:00 07:00 07:30 07:39 Temp 37.0 36.5 Pulse 84 94 90 Resp 18 20 B/P (MAP) 150/72 (98) 127/65 (85) Pulse Ox 96 97 97 O2 Delivery Nasal Cannula Nasal Cannula Nasal Cannula O2 Flow Rate 3.00 3.00 3.00 08/26/19 08/26/19 08/26/19 08/26/19 08:00 10:06 11:30 13:00 Temp 37.1 Pulse 89 90 Resp 16 B/P (MAP) 115/53 (73) Pulse Ox 94 93 O2 Delivery High Flow N/C Nasal Cannula Nasal Cannula O2 Flow Rate 3.00 3.00 3.00 08/26/19 14:50 Pulse Ox 96 O2 Delivery Nasal Cannula O2 Flow Rate 3.00 08/26/19 00:00 Intake Total 400 ml Output Total 350 ml Balance 50 ml Weight (Pounds): 138 Weight (Ounces): 6.0 Weight (Calculated Kilograms): 62.461843 Constitutional: AAO x 3, well-developed, well-nourished Respiratory: No accessory muscle use; chest is bilaterally symmetric, other (good bilateral air entry, diminished at the bases) Cardiovascular: regular rate-rhythm, S1 and S2 ([facility] S2, 2/6 MSM, soft early luna murmur) Gastrointestional: No tender, No guarding, No rebound; audible bowel sounds Extremities: normal range of motion, non-tender, normal inspection; No clubbing, No cyanosis; no lower extremity edema bilateral; No significant edema Neurologic/Psychiatric: no motor/sensory deficits, alert, normal mood/affect, oriented x 3, other (moves all limbs equally) Skin: normal color; No rash on exposed areas, No ulcerations on exposed areas Results/Procedures: Labs Laboratory Tests 08/26/19 04:14: White Blood Count 5.2, Red Blood Count 2.96L, Hemoglobin 9.5L, Hematocrit 31L, Mean Corpuscular Volume 104H, Mean Corpuscular Hemoglobin 32, Mean Corpuscular Hemoglobin Concent 31L, Red Cell Distribution Width 14.9H, Platelet Count 140, Mean Platelet Volume 10.9H, Neutrophils (%) (Auto) 90H, Lymphocytes (%) (Auto) 5L, Monocytes (%) (Auto) 5, Eosinophils (%) (Auto) 0, Basophils (%) (Auto) 0, Neutrophils # (Auto) 4.7, Lymphocytes # (Auto) 0.2L, Monocytes # (Auto) 0.3, Eosinophils # (Auto) 0.0, Basophils # (Auto) 0.0, Prothrombin Time 23.1H, INR Comment 2.0H, Sodium Level 138, Potassium Level 4.1, Chloride Level 99, Carbon Dioxide Level 28, Anion Gap 11, Blood Urea Nitrogen 57H, Creatinine 1.53H, Estimat Glomerular Filtration Rate 32, BUN/Creatinine Ratio 37, Glucose Level 117H, Calcium Level 9.1 Microbiology 08/18/19 Gram Stain - Final, Complete 08/18/19 Sputum Culture - Final, Complete Usual upper respiratory rowan 08/15/19 Blood Culture - Final, Complete No growth A/P: Assessment/Dx: Acute respiratory failure Pneumonia Congestive heart failure Coronary artery disease Plan: Acute respiratory failure secondary to pneumonia, receiving antibiotic and currently on BiPAP. Managed by Dr. Pichardo. Congestive heart failure, acute on chronic left ventricular systolic dysfunction, nonischemic cardiomyopathy, valvular heart disease, echocardiogram done on August 18, 2019 showing ejection fraction 35-40 percent, left atrium is severely enlarged 8.3 cm, severe mitral valve stenosis, moderate severe mitral regurgitation, prosthetic valve in the aortic position functioning norm ally, severe pulmonary hypertension with PA pressure 65 mmHg. Continue on diuretics and monitor Bilateral pleural effusion, continue on diuretics and monitor Permanent atrial fibrillation, underlying sinus node dysfunction, had permanent pacemaker. Continue to monitor Acute on chronic renal insufficiency. Continue to monitor renal function. 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 Subtherapeutic INR, INR on 08/26/2019 is 2.0. Bridging with Lovenox. Peripheral vascular disease, patient has venous insufficiency on the right side that required ablation, peripheral angiogram May 2017, intervention to the anterior tibial artery, the wound has healed then developed a new ulcer after a trauma. Did balloon angioplasty to the right anterior tibial artery proximal portion has significant improvement the distal portion is occluded and did not improve, the posterior tibial artery and peroneal arteries were occluded with no collaterals in that area. The right SFA has multiple segment of moderate to severe stenosis, balloon angioplasty to the mid SFA with good results. Abdominal aorta has moderate disease, the left SFA has mild to moderate disease down to the trifurcation. Patient has nonhealing wounds to right ankle, underwent peripheral angiogram with Dr. Arias on July 08, 2019 with right SFA and anterior tibial artery angioplasty with good results. continue to monitor Severe mitral valve stenosis rheumatic valve, severe mitral regurgitation with severe pulmonary hypertension, estimated pulmonary artery pressure of 55 mmHg with severely dilated both atrium and prominent right ventricle with dilated IVC. discussed with Dr. Page, he recommended medical therapy at this time considering her to be high risk for morbidity and mortality if she undergoes valve surgery. She is not a candidate for mitral clip secondary to her mitral stenosis Was referred once again to Dr. Davila in January 2019 for evaluation for possible TMVR. Decided to continue with conservative management at this time. Possible TMVR, was referred to [facility] previously, will arrange for reevaluation Coronary artery disease, small vessel disease, nonobstructive disease, the prosthetic valve was functioning normally. Pulmonary artery pressure was 50/26, pulmonary capillary wedge pressure 35, right ventricular pressure 53/17. cardiac catheterization was done in September 2014. Stress test done in December 2016 showing no ischemia or infarction, EF 41 percent, continue to monitor Carotid stenosis, continue to monitor, followed by heart and vascular care. 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 followed and monitored by heart and vascular care. Hypertension, continue to monitor blood pressure Hyperlipidemia, continue on current medication monitor lipids Right hip fracture in May 2018 status post surgical repair, recovered well. Thank you for your consultation. Please call me if you have any questions. Zack Orozco MD, FACP, FACC, FSCAI, FHRS, CCDS Interventional Cardiology Cardiac Electrophysiology Vascular Medicine and Endovascular Interventions Cristiano OROZCO MD Aug 26, 2019 15:16
[2019-08-26 16:00] VITALS: BP 114/55
[2019-08-26] MEDS: warFARin 2.5 MG (COUMADIN) TAB PO SCH (17:41)
[2019-08-26 20:00] VITALS: BP 104/44
[2019-08-26] MEDS: LORazepam 0.5 MG (ATIVAN) TABLET PO PRN (20:11)
[2019-08-26] MEDS: ONDANSETRON 4 MG/2 ML (SDV) Z0FRAN IV PRN (20:23)
[2019-08-27] VITALS: BP 119/53
[2019-08-27] MEDS: RT-ALBUTEROL/IPRATROPIUM 3 ML (DUONEB) VIAL INH SCH ×6 (01:20→22:50)
[2019-08-27 03:20] LABS: BASOPHILS % (AUTO) 0 % (0-10); EOSINOPHILS % (AUTO) 1 % (0-10); HEMATOCRIT 30 % (35-52); HEMOGLOBIN 9.1 G/DL (11.5-16.0); LYMPHOCYTES # (AUTO) 0.6 X 10^3 (1.0-4.0); LYMPHOCYTES % (AUTO) 11 % (12-44); MEAN CORPUSCULAR HEMOGLOBIN 32 PG (25-34); MEAN CORPUSCULAR HGB CONC 30 G/DL (32-36); MEAN CORPUSCULAR VOLUME 105 FL (80-99); MEAN PLATELET VOLUME 10.5 FL (7.4-10.4); MONOCYTES # (AUTO) 0.5 X 10^3 (0.0-1.0); MONOCYTES % (AUTO) 9 % (0-12); NEUTROPHILS % (AUTO) 79 % (42-75); PLATELET COUNT 148 10^3/uL (130-400); RED CELL DISTRIBUTION WIDTH 14.9 % (10.0-14.5); WHITE BLOOD COUNT 5.1 10^3/uL (4.3-11.0)
[2019-08-27 03:35] LABS: INR 2.2 (0.8-1.4); PROTHROMBIN TIME PATIENT 25.1 SEC (12.2-14.7)
[2019-08-27 03:42] LABS: CALCIUM 8.6 MG/DL (8.5-10.1); CREATININE SERUM 1.66 MG/DL (0.60-1.30); POTASSIUM 3.5 MMOL/L (3.6-5.0)
[2019-08-27 04:00] VITALS: BP 95/47
[2019-08-27] MEDS: FUROSEMIDE 40 MG/4 ML INJ (LASIX) IVP SCH (06:22)
[2019-08-27] MEDS: predniSONE 20 MG TAB PO SCH (06:23)
[2019-08-27] MEDS: LEVOTHYROXINE 100 MCG (LEVOTHROID) TAB PO SCH (06:23)
[2019-08-27 08:00] VITALS: BP 111/64
[2019-08-27] MEDS: DOCUSATE SODIUM 100 MG (COLACE) CAP PO SCH ×2 (08:20→20:24)
[2019-08-27] MEDS: MEXILETINE 150 MG (MEXITIL) CAPSULE PO SCH ×2 (08:20→20:23)
[2019-08-27] MEDS: DIGOXIN 0.125 MG (LANOXIN) TAB PO SCH (08:20)
[2019-08-27] MEDS: guaiFENesin (MUCINEX) 600 MG TAB PO SCH ×2 (08:20→20:24)
[2019-08-27] MEDS: SENNOSIDES 8.6 MG (SENOKOT) TAB PO SCH ×2 (08:20→20:23)
[2019-08-27] MEDS: rOPINIRole 0.25 MG (REQUIP) TAB PO SCH ×3 (08:20→20:24)
[2019-08-27] MEDS: PANTOPRAZOLE 40 MG (PROTONIX) TAB PO SCH (08:20)
[2019-08-27] MEDS: POLYETHYLENE GLYCOL 17 GM (MIRALAX) PACK PO SCH ×2 (08:21→20:27)
[2019-08-27] MEDS: ENOXAPARIN 80 MG/0.8 ML (LOVENOX) SYR SC SCH (08:21)
[2019-08-27] MEDS: BISACODYL 10 MG SUPP (DULCOLAX) PR PRN ×2 (08:52→09:59)
[2019-08-27 12:00] VITALS: BP 110/65
--- NOTE | 2019-08-27 13:13 | Progress Note - Hospitalist ---
Subjective HPI/CC On Admission Date Seen by Provider: Aug 27, 2019 Time Seen by Provider: 09:30 Anisha Mcfarland is an 84-year-old female with past medical history of hypertension, hyperlipidemia, chronic kidney disease, mechanical aortic valve, mitral valve stenosis, diastolic heart failure, coronary artery disease, peripheral artery disease, who presented with shortness of breath. She reports that she is feeling very short of breath and was getting winded with minimal activity. She was also having fevers and chills at home. She was measured at 101 while still at home. She had a mild cough but it was nonproductive. She h ad one episode of nausea and vomiting yesterday morning after eating a banana and a Palestinian cookie. She was able to eat some broth last night with out issue. She is not feeling hungry this morning. She denies abdominal pain and diarrhea. She denies dysuria. She denies chest pain. Subjective/Events-last exam Patient sitting on commode after suppository May need SSE No pain is reported except right leg ulcer Labs reviewed Checked meds Conferred with RN 3L/min O2 maintained Emesis last night after Tajik food Catheter DC today Review of Systems Pulmonary: Dyspnea, Cough Musculoskeletal: leg pain Objective Exam Vital Signs Vital Signs Date Time Temp Pulse Resp B/P (MAP) Pulse Ox O2 Delivery O2 Flow Rate FiO2 08/27/19 14:51 98 Nasal Cannula 3.00 08/27/19 13:00 87 08/27/19 12:00 37.2 18 110/65 (80) 08/25/19 21:00 40 Capillary Refill : Less Than 3 Seconds General Appearance: No Apparent Distress, WD/WN, Chronically ill, Thin Respiratory: Chest Non Tender, Lungs Clear, Normal Breath Sounds, No Accessory Muscle Use, No Respiratory Distress Cardiovascular: No Edema, No Gallop, No JVD, Normal Peripheral Pulses, Systolic Murmur, Irregularly Irregular Neurologic/Psychiatric: Alert, Oriented x3, No Motor/Sensory Deficits, Normal Mood/Affect Results/Procedures Lab Laboratory Tests 08/27/19 03:08 Patient resulted labs reviewed. Imaging: Reviewed Imaging Report Assessment/Plan Assessment and Plan Assess & Plan/Chief Complaint Assessment: Healthcare associated pneumonia Acute on chronic hypoxic respiratory failure Chronic heart failure with preserved ejection fraction DARA on CKD Supratherapeutic INR, resolved Mechanical aortic valve Paroxysmal atrial fibrillation Constipation ordered suppository Hypertension holding meds CAD PAD Mitral valve stenosis GERD Debility- PT/OT ordered DVT prophylaxis on OAC Right leg venous stasis ulcer Plan: Monitor labs PT/OT BM regimen to include SSE if supp not successful Diagnosis/Problems Diagnosis/Problems (1) HCAP (healthcare-associated pneumonia) Status: Acute (2) Acute on chronic respiratory failure with hypoxemia Status: Acute (3) Acute kidney injury superimposed on chronic kidney disease Status: Acute (4) CHF (congestive heart failure) Status: Chronic (5) Venous ulcer (6) PVD (peripheral vascular disease) Status: Chronic (7) Debility Status: Chronic (8) HTN (hypertension) Status: Chronic (9) PAD (peripheral artery disease) Status: Chronic (10) Acute exacerbation of congestive heart failure Status: Acute (11) Atrial fibrillation, controlled Status: Chronic (12) Mitral valve replaced Status: Chronic Clinical Quality Measures DVT/VTE Risk/Contraindication: Risk Factor Score Per Nursin RFS Level Per Nursing on Admit: 4+=Very High AURORA CIFUENTES DO Aug 27, 2019 13:13
--- NOTE | 2019-08-27 14:09 | Cardiology Progress Note ---
Cardiology SOAP Progress Note Subjective: Improving shortness of breath. Objective: I&O/Vital Signs 08/27/19 08/27/19 08/27/19 08/27/19 04:00 07:00 07:05 08:00 Temp 36.9 Pulse 86 91 Resp 18 B/P (MAP) 95/47 (63) Pulse Ox 94 95 O2 Delivery Nasal Cannula Nasal Cannula High Flow N/C O2 Flow Rate 3.00 3.00 3.00 08/27/19 08/27/19 08/27/19 08/27/19 08:00 10:56 12:00 13:00 Temp 37.0 37.2 Pulse 85 91 87 Resp 18 18 B/P (MAP) 111/64 (80) 110/65 (80) Pulse Ox 100 100 93 O2 Delivery Nasal Cannula Nasal Cannula O2 Flow Rate 3.00 3.00 08/27/19 00:00 Intake Total 900 ml Output Total 1200 ml Balance -300 ml Weight (Pounds): 138 Weight (Ounces): 6.0 Weight (Calculated Kilograms): [id number] Constitutional: AAO x 3, well-developed, well-nourished Respiratory: No accessory muscle use; chest is bilaterally symmetric, other (good bilateral air entry, diminished at the bases) Cardiovascular: regular rate-rhythm, S1 and S2 ([facility] S2, 2/6 MSM, soft early luna murmur) Gastrointestional: No tender, No guarding, No rebound; audible bowel sounds Extremities: normal range of motion, non-tender, normal inspection; No clubbing, No cyanosis; no lower extremity edema bilateral; No significant edema Neurologic/Psychiatric: no motor/sensory deficits, alert, normal mood/affect, oriented x 3, other (moves all limbs equally) Skin: normal color; No rash on exposed areas, No ulcerations on exposed areas Results/Procedures: Labs Laboratory Tests 08/27/19 03:08: White Blood Count 5.1, Red Blood Count 2.88L, Hemoglobin 9.1L, Hematocrit 30L, Mean Corpuscular Volume 105H, Mean Corpuscular Hemoglobin 32, Mean Corpuscular Hemoglobin Concent 30L, Red Cell Distribution Width 14.9H, Platelet Count 148, Mean Platelet Volume 10.5H, Neutrophils (%) (Auto) 79H, Lymphocytes (%) (Auto) 11L, Monocytes (%) (Auto) 9, Eosinophils (%) (Auto) 1, Basophils (%) (Auto) 0, Neutrophils # (Auto) 4.0, Lymphocytes # (Auto) 0.6L, Monocytes # (Auto) 0.5, Eosinophils # (Auto) 0.0, Basophils # (Auto) 0.0, Prothrombin Time 25.1H, INR Comment 2.2H, Sodium Level 139, Potassium Level 3.5L, Chloride Level 99, Carbon Dioxide Level 29, Anion Gap 11, Blood Urea Nitrogen 59H, Creatinine 1.66H, Estimat Glomerular Filtration Rate 30, BUN/Creatinine Ratio 36, Glucose Level 94, Calcium Level 8.6 Microbiology 08/18/19 Gram Stain - Final, Complete 08/18/19 Sputum Culture - Final, Complete Usual upper respiratory rowan 08/15/19 Blood Culture - Final, Complete No growth A/P: Assessment/Dx: Acute respiratory failure Pneumonia Congestive heart failure Coronary artery disease Plan: Acute respiratory failure secondary to pneumonia, receiving antibiotic and currently on BiPAP. Managed by Dr. Pichardo. Congestive heart failure, acute on chronic left ventricular systolic dysfunction, nonischemic cardiomyopathy, valvular heart disease, echocardiogram done on August 18, 2019 showing ejection fraction 35-40 percent, left atrium is severely enlarged 8.3 cm, severe mitral valve stenosis, moderate severe mitral regurgitation, prosthetic valve in the aortic position functioning normally, severe pulmonary hypertension with PA pressure 65 mmHg. Continue on diuretics and monitor Bilateral pleural effusion, continue on diuretics and monitor Permanent atrial fibrillation, underlying sinus node dysfunction, had permanent pacemaker. Continue to monitor Acute on chronic renal insufficiency. Continue to monitor renal function. History of aortic valve replacement in 1998 with metallic valve on Coumadin, continue to monitor [id number] Score of 6, yearly risk of stroke without oral anticoagulation is 9.8 percent, maintained on Coumadin, supratherapeutic INR, earlier but treated with vitamin K. Subtherapeutic INR, INR on 08/27/2019 is 2.2. Bridging with Lovenox. Peripheral vascular disease, patient has venous insufficiency on the right side that required ablation, peripheral angiogram May 2017, intervention to the anterior tibial artery, the wound has healed then developed a new ulcer after a trauma. Did balloon angioplasty to the right anterior tibial artery proximal portion has significant improvement the distal portion is occluded and did not improve, the posterior tibial artery and peroneal arteries were occluded with no collaterals in that area. The right SFA has multiple segment of moderate to severe stenosis, balloon angioplasty to the mid SFA with good results. Abdominal aorta has moderate disease, the left SFA has mild to moderate disease down to the trifurcation. Patient has nonhealing wounds to right ankle, underwent kourtney pheral angiogram with Dr. Arias on July 08, 2019 with right SFA and anterior tibial artery angioplasty with good results. continue to monitor Severe mitral valve stenosis rheumatic valve, severe mitral regurgitation with severe pulmonary hypertension, estimated pulmonary artery pressure of 55 mmHg with severely dilated both atrium and prominent right ventricle with dilated IVC. discussed with Dr. Page, he recommended medical therapy at this time considering her to be high risk for morbidity and mortality if she undergoes valve surgery. She is not a candidate for mitral clip secondary to her mitral stenosis Was referred once again to Dr. Davila in January 2019 for evaluation for possible TMVR. Decided to continue with conservative management at this time. Possible TMVR, was referred to [facility] previously, will arrange for reevaluation Coronary artery disease, small vessel disease, nonobstructive disease, the prosthetic valve was functioning normally. Pulmonary artery pressure was 50/26, pulmonary capillary wedge pressure 35, right ventricular pressure 53/17. cardiac catheterization was done in September 2014. Stress test done in December 2016 showing no ischemia or infarction, EF 41 percent, continue to monitor Carotid stenosis, continue to monitor, followed by heart and vascular care. 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 followed and monitored by heart and vascular care. Hypertension, continue to monitor blood pressure Hyperlipidemia, continue on current medication monitor lipids Right hip fracture in May 2018 status post surgical repair, recovered well. Thank you for your consultation. Please call me if you have any questions. Zack Orozco MD, FACP, FACC, FSCAI, FHRS, CCDS Interventional Cardiology Cardiac Electrophysiology Vascular Medicine and Endovascular Interventions Cristiano OROZCO MD Aug 27, 2019 14:09
[2019-08-27 16:00] VITALS: BP 100/47
[2019-08-27] MEDS ORDERED: FUROSEMIDE 40 MG (LASIX) TAB ONE (17:38)
[2019-08-27] MEDS: warFARin 2.5 MG (COUMADIN) TAB PO SCH (17:42)
[2019-08-27] MEDS: FUROSEMIDE 40 MG (LASIX) TAB PO SCH (17:42)
[2019-08-27 19:52] VITALS: BP 114/63
[2019-08-28] MEDS: LORazepam 0.5 MG (ATIVAN) TABLET PO PRN ×2 (00:14→22:07)
[2019-08-28 00:22] VITALS: BP 112/55
[2019-08-28] MEDS: RT-ALBUTEROL/IPRATROPIUM 3 ML (DUONEB) VIAL INH SCH ×6 (01:00→22:17)
[2019-08-28 03:59] LABS: INR 2.1 (0.8-1.4); PROTHROMBIN TIME PATIENT 24.8 SEC (12.2-14.7)
[2019-08-28 04:00] VITALS: BP 108/52
[2019-08-28] MEDS: LEVOTHYROXINE 100 MCG (LEVOTHROID) TAB PO SCH (06:50)
[2019-08-28] MEDS: predniSONE 20 MG TAB PO SCH (06:51)
[2019-08-28 07:38] VITALS: BP 109/54
[2019-08-28] MEDS ORDERED: LACTULOSE SYRUP 10GM/15ML (ENULOSE) 30ML UDC PO ONE (08:30)
[2019-08-28] MEDS: SENNOSIDES 8.6 MG (SENOKOT) TAB PO SCH ×2 (09:04→20:01)
[2019-08-28] MEDS: DOCUSATE SODIUM 100 MG (COLACE) CAP PO SCH ×2 (09:04→20:01)
[2019-08-28] MEDS: rOPINIRole 0.25 MG (REQUIP) TAB PO SCH ×3 (09:04→20:29)
[2019-08-28] MEDS: guaiFENesin (MUCINEX) 600 MG TAB PO SCH ×2 (09:04→20:29)
[2019-08-28] MEDS: PANTOPRAZOLE 40 MG (PROTONIX) TAB PO SCH (09:04)
[2019-08-28] MEDS: DIGOXIN 0.125 MG (LANOXIN) TAB PO SCH (09:04)
[2019-08-28] MEDS: FUROSEMIDE 40 MG (LASIX) TAB PO SCH ×2 (09:04→16:44)
[2019-08-28] MEDS: MEXILETINE 150 MG (MEXITIL) CAPSULE PO SCH ×2 (09:04→20:28)
[2019-08-28] MEDS: POLYETHYLENE GLYCOL 17 GM (MIRALAX) PACK PO SCH ×2 (09:05→20:01)
[2019-08-28] MEDS: ENOXAPARIN 80 MG/0.8 ML (LOVENOX) SYR SC SCH (09:05)
--- NOTE | 2019-08-28 10:50 | NUR ---
PTS SON CHANGING DRESSING ON PT'S RIGHT CYR PER HIS REQUEST.
--- NOTE | 2019-08-28 10:57 | NUR ---
Pt states she feels weak and is interested in discharge home tomorrow. Discussed Home Health Care to follow and chose [facility] as she has received their services previously. Also son plans to request Meals [employer] Wheels for short duration till pt is stronger.
--- NOTE | 2019-08-28 11:26 | Occupational Ther Daily Note ---
OT Current Status-Daily Note Subjective Pt seated on commode at start of session, agreebale to OT tx. Pt reports feeling like she needs to have a BM but has been able to go for around a week. ADL-Treatment Therapy Code Descriptions/Definitions Functional [place] Measure: 0=Not Assessed/NA 4=Minimal Assistance 1=Total Assistance 5=Supervision or Setup 2=Maximal Assistance 6=Modified [place] 3=Moderate Assistance 7=Complete IndependenceSCALE: Activities may be completed with or without assistive devices. 2-Ylbpaannnb-vhbqvcq completes the activity by him/herself with no assistance from a helper. 5-Set-up or Clean-up Assistance-helper sets up or cleans up; patient completes activity. [place] assists only prior to or following the activity. 4-Supervision or Touching Assistance-helper provides verbal cues and/or touching/steadying and/or contact guard assistance as patient completes activity. Assistance may be provided throughout the activity or intermittently. 3-Partial/Moderate Assistance-helper does LESS THAN HALF the effort. [place] lifts, holds or supports trunk or limbs, but provides less than half the effort. 2-Substantial/Maximal Assistance-helper does MORE THAN HALF the effort. [place] lifts or holds trunk or limbs and provides more than half the effort. 4-Sdjzhdqbz-knuuei does ALL the effort. Patient does none of the effort to complete the activity. Or, the assistance of 2 or more helpers is required for the patient to complete the activity. If activity was not attempted, code reason: 7-Patient Refused. 9-Not Applicable-not attempted and the patient did not perform the activity before the current illness, exacerbation or injury. 10-Not Attempted due to Environmental Limitations-(lack of equipment, weather restraints, etc.). 88-Not Attempted due to Medical Conditions or Safety Concerns. Other Treatment Pt seated on commode. Pt provided information about her PLOF and home set up. OT educated pt on home safety including shower chairs and grab bars. Pt reported understanding of safety topics discussed. OT also educated pt on arm exercises to complete in bed, pt verbalized understanding. Post OT session, pt seated on BSC, call light in reach and all needs met. Nursing notified of pt's position. Education OT Patient Education: Correct positioning, Energy conservation, Exercise program, Modified ADL techniques, Progress toward Goal/Update tx plan, Purpose of tx/functional activities, Safety issues Teaching Recipient: Patient Teaching Methods: Discussion Response to Teaching: Verbalize Understanding OT Short Term Goals Short Term Goals Time Frame: Sep 06, 2019 Eatin Oral hygiene: 3 Toileting hygiene: 3 Shower/bathe self: 3 Upper body dressin Lower body dressin Putting on/taking off footwear: 3 OT Ceo & Founder Goals Ceo & Founder Goals Time Frame: Sep 13, 2019 Eating (QC): 6 Oral Hygiene (QC): 5 Toileting Hygiene (QC): 4 Shower/Bathe Self (QC): 4 Upper Body Dressing (QC): 4 Lower Body Dressing (QC): 4 On/Off Footwear (QC): 4 Additional Goals: 1-Demonstrate ADL Tasks, 2-Verbalize Understanding, 3- ImproveStrength/Rick 1=Demonstrate adherence to instructed precautions during ADL tasks. 2=Patient will verbalize/demonstrate understanding of assistive devices/modifications for ADL. 3=Patient will improve strength/tolerance for activity to enable patient to perform ADL's. OT Education/Plan Problem List/Assessment Assessment: Decreased Activ Tolerance, Decreased UE Strength Discharge Recommendations Plan/Recommendations: Continue POC Treatment Plan/Plan of Care Patient would benefit from OT for education, treatment and training to promote independence in ADL's, mobility, safety and/or upper extremity function for ADL's. Plan of Care: ADL Retraining, Functional Mobility, UE Funct Exercise/Act Treatment Duration: Sep 13, 2019 Frequency: 5 times per week Estimated Hrs Per Day: .25 hour per day Agreement: Yes Rehab Potential: Fair Time/GCodes Start Time: 10:23 Stop Time: 10:33 Total Time Billed (hr/min): 10 Billed Treatment Time 1, ADL ANUP DORANTES OT Aug 28, 2019 11:26
[2019-08-28 12:00] VITALS: BP 126/66
--- NOTE | 2019-08-28 13:45 | Physical Therapy Daily Note ---
PT Daily Note-Current Subjective Agrees to PT. Reports she is needing to have a BM but can't. She has taken different things to facilitate. Transfers SCALE: Activities may be completed with or without assistive devices. 5-Xdhhoubinq-clvwukp completes the activity by him/herself with no assistance from a helper. 5-Set-up or Clean-up Assistance-helper sets up or cleans up; patient completes activity. [place] assists only prior to or following the activity. 4-Supervision or Touching Assistance-helper provides verbal cues and/or touching/steadying and/or contact guard assistance as patient completes activity. Assistance may be provided throughout the activity or intermittently. 3-Partial/Moderate Assistance-helper does LESS THAN HALF the effort. [place] lifts, holds or supports trunk or limbs, but provides less than half the effort. 2-Substantial/Maximal Assistance-helper does MORE THAN HALF the effort. [place] lifts or holds trunk or limbs and provides more than half the effort. 5-Sgmbiooun-gvnetb does ALL the effort. Patient does none of the effort to complete the activity. Or, the assistance of 2 or more helpers is required for the patient to complete the activity. If activity was not attempted, code reason: 7-Patient Refused. 9-Not Applicable-not attempted and the patient did not perform the activity b efore the current illness, exacerbation or injury. 10-Not Attempted due to Environmental Limitations-(lack of equipment, weather restraints, etc.). 88-Not Attempted due to Medical Conditions or Safety Concerns. Lying to Sitting/Side of Bed(Q: 4 (SBA with intermittent cues for sequencing. ) Sit to Stand (QC): 4 (SB-CGA for safety) Weight Bearing Right Lower Extremity: Right Weight Bearing/Tolerated Left Lower Extremity: Left Weight Bearing/Tolerated Gait Training Walk 50 ft with 2 Turns(QC): 4 (CGA with FWW in her room. ) Treatments pt stood EOB x 2-3 minutes then rested. Pt then sat EOB for several minutes to work on deep breathing and posture. Pt ambulated in room with CGA with assist for oxygen. Pt sitting EOB post treatment with son present. To call the nurse when she is ready to lie down. Assessment Current Status: Good Progress Difficulty with WB right LE due to ulcer. Increased transfer ability and gait. PT [facility] Goals Family Practice Physician Assistant Goals PT Family Practice Physician Assistant Goals Time Frame: Aug 29, 2019 Roll Left & Right (QC): 4 Sit to Lying (QC): 4 Lying-Sitting on Side/Bed(QC): 4 Sit to Stand (QC): 4 Chair/Wko-kq-Lfora Xfer(QC): 4 Walk 10 feet (QC): 4 Walk 50ft with 2 Turns (QC): 4 PT Plan Problem List Problem List: Activity Tolerance, Functional Strength, Safety, Balance, Gait, Transfer, Bed Mobility Treatment/Plan Treatment Plan: Continue Plan of Care Treatment Plan: Bed Mobility, Education, Functional Activity Rick, Functional Strength, Gait, Safety, Therapeutic Exercise, Transfers Treatment Duration: Aug 29, 2019 Frequency: 6 times per week Estimated Hrs Per Day: .25 hour per day Patient and/or Family Agrees t: Yes Safety Risks/Education Patient Education: Transfer Techniques, Safety Issues Teaching Recipient: Patient Teaching Methods: Discussion Response to Teaching: Reinforcement Needed Discharge Recommendations Therapy Discharge Recommendati: Post Acute PT Time/GCodes Time In: 1310 Time Out: 1340 Total Billed Treatment Time: 30 Total Billed Treatment visit FA 30 HARDIK NGUYEN PT Aug 28, 2019 13:45
[2019-08-28] MEDS ORDERED: LACTULOSE SYRUP 10GM/15ML (ENULOSE) 30ML UDC PO NR (14:00)
--- NOTE | 2019-08-28 14:01 | Progress Note - Hospitalist ---
Subjective HPI/CC On Admission Date Seen by Provider: Aug 28, 2019 Time Seen by Provider: 08:10 Anisha Mcfarland is an 84-year-old female with past medical history of hypertension, hyperlipidemia, chronic kidney disease, mechanical aortic valve, mitral valve stenosis, diastolic heart failure, coronary artery disease, peripheral artery disease, who presented with shortness of breath. She reports that she is feeling very short of breath and was getting winded with minimal activity. She was also having fevers and chills at home. She was measured at 101 while still at home. She had a mild cough but it was nonproductive. She had one episode of nausea and vomiting yesterday morning after eating a banana and a Syriac cookie. She was able to eat some broth last night with out issue. She is not feeling hungry this morning. She denies abdominal pain and diarrhea. She denies dysuria. She denies chest pain. Subjective/Events-last exam She reports feeling well this morning. She denies shortness of breath. She denies fevers or chills. She denies nausea, vomiting, or abdominal pain. She had a bowel movement yesterday but it was not very significant. Objective Exam Vital Signs Vital Signs Date Time Temp Pulse Resp B/P (MAP) Pulse Ox O2 Delivery O2 Flow Rate FiO2 08/28/19 12:00 36.2 85 18 126/66 (86) 99 Nasal Cannula 3.00 08/25/19 21:00 40 Capillary Refill : Less Than 3 Seconds General Appearance: No Apparent Distress, Chronically ill, Thin HEENT: PERRL/EOMI, Pharynx Normal Neck: Normal Inspection, Supple Respiratory: Lungs Clear, Normal Breath Sounds, No Respiratory Distress Cardiovascular: Regular Rate, Rhythm, No Edema, No Murmur Gastrointestinal: Normal Bowel Sounds, Non Tender, Soft Extremity: Normal Inspection, Non Tender, No Pedal Edema Neurologic/Psychiatric: Alert, Oriented x3, No Motor/Sensory Deficits, Normal Mood/Affect Skin: Normal Color, Warm/Dry Lymphatic: No Adenopathy Results/Procedures Lab Patient resulted labs reviewed. Imaging: Reviewed Imaging Report Assessment/Plan Assessment and Plan Assess & Plan/Chief Complaint Chronic respiratory failure with hypoxia Chronic heart failure with preserved ejection fraction Wean vapotherm as able to nasal cannula Continue Lasix Cardiology consulted, appreciate recs Chronic kidney disease Creatinine stable Continue to monitor closely and avoid nephrotoxins as able Subtherapeutic INR Mechanical aortic valve Paroxysmal atrial fibrillation INR 2.1, continue Lovenox until therapeutic with INR (2.53.5) continue digoxin Constipation Continue bowel regimen Add lactulose If no results, had soapsuds enema Hypertension Continue home meds CAD PAD Mitral valve stenosis GERD clinically significant, no acute management needs, continue home meds Debility - PT/OT ordered - May need SNF versus home health on discharge Healthcare associated pneumonia, resolved Acute on chronic hypoxic respiratory failure, resolved Supratherapeutic INR, resolved DARA on CKD, resolved DVT prophylaxis: Lovenox Diagnosis/Problems Diagnosis/Problems (1) HCAP (healthcare-associated pneumonia) Status: Resolved Resolution Date/Time: 08/28/19 @ 14:02 (2) Supratherapeutic INR Status: Resolved Resolution Date/Time: 08/28/19 @ 14:01 (3) Acute on chronic respiratory failure with hypoxemia Status: Acute (4) Acute kidney injury superimposed on chronic kidney disease Status: Acute Clinical Quality Measures DVT/VTE Risk/Contraindication: Risk Factor Score Per Nursin RFS Level Per Nursing on Admit: 4+=Very High KATHERINE BRADFORD MD Aug 28, 2019 14:01
--- NOTE | 2019-08-28 14:13 | NUR ---
Pt's son contacted this social studies department chair and questioned whether a [facility] home placement short-term was possible. They feel pt too weak to stay home alone during the daytime hours when she would not have any caregiver present. They inquired about possible placement at [facility] and faxed evaluations for their review and possible acceptance.
[2019-08-28 16:00] VITALS: BP 109/55
--- NOTE | 2019-08-28 16:44 | NUR ---
PT WOULD LIKE TO TRY FLEETS [facility]EMA BEFORE [facility].
--- NOTE | 2019-08-28 17:07 | Cardiology Progress Note ---
Cardiology SOAP Progress Note Subjective: Improved shortness of breath. Objective: I&O/Vital Signs 08/28/19 08/28/19 08/28/19 08/28/19 06:42 07:00 07:38 09:00 Temp 36.8 Pulse 85 85 Resp 16 B/P (MAP) 109/54 (72) Pulse Ox 90 98 O2 Delivery Nasal Cannula Nasal Cannula High Flow N/C O2 Flow Rate 3.00 3.00 3.00 08/28/19 08/28/19 08/28/19 08/28/19 10:07 12:00 13:00 14:54 Temp 36.2 Pulse 85 87 Resp 18 B/P (MAP) 126/66 (86) Pulse Ox 97 99 97 O2 Delivery Nasal Cannula Nasal Cannula Nasal Cannula O2 Flow Rate 3.00 3.00 3.00 08/28/19 16:00 Temp 37.2 Pulse 87 Resp 18 B/P (MAP) 109/55 (73) Pulse Ox 98 O2 Delivery Nasal Cannula O2 Flow Rate 3.00 08/28/19 00:00 Intake Total 830 ml Output Total 950 ml Balance -120 ml Weight (Pounds): 138 Weight (Ounces): 6.0 Weight (Calculated Kilograms): 62.018013 Constitutional: AAO x 3, well-developed, well-nourished Respiratory: No accessory muscle use; chest is bilaterally symmetric, other (good bilateral air entry, diminished at the bases) Cardiovascular: regular rate-rhythm, S1 and S2 (mech S2, 2/6 MSM, soft early luna murmur) Gastrointestional: No tender, No guarding, No rebound; audible bowel sounds Extremities: normal range of motion, non-tender, normal inspection; No clubbing, No cyanosis; no lower extremity edema bilateral; No significant edema Neurologic/Psychiatric: no motor/sensory deficits, alert, normal mood/affect, oriented x 3, other (moves all limbs equally) Skin: normal color; No rash on exposed areas, No ulcerations on exposed areas Results/Procedures: Labs Laboratory Tests 08/28/19 03:38: Prothrombin Time 24.8H, INR Comment 2.1H Microbiology 08/18/19 Gram Stain - Final, Complete 08/18/19 Sputum Culture - Final, Complete Usual upper respiratory rowan 08/15/19 Blood Culture - Final, Complete No growth A/P: Assessment/Dx: Acute respiratory failure Pneumonia Congestive heart failure Coronary artery disease Plan: Acute respiratory failure secondary to pneumonia, receiving antibiotic and currently on BiPAP. Managed by Dr. Pichardo. Congestive heart failure, acute on chronic left ventricular systolic dysfunction, nonischemic cardiomyopathy, valvular heart disease, echocardiogram done on August 18, 2019 showing ejection fraction 35-40 percent, left atrium is severely enlarged 8.3 cm, severe mitral valve stenosis, moderate severe mitral regurgitation, prosthetic valve in the aortic position functioning normally, severe pulmonary hypertension with PA pressure 65 mmHg. Continue on diuretics and monitor Bilateral pleural effusion, continue on diuretics and monitor Permanent atrial fibrillation, underlying sinus node dysfunction, had permanent pacemaker. Continue to monitor Acute on chronic renal insufficiency. Continue to monitor renal function. History of aortic valve replacement in 1998 with metallic valve on Coumadin, continue to monitor [id number] Score of 6, yearly risk of stroke without oral anticoagulation is 9.8 percent, maintained on Coumadin, supratherapeutic INR, earlier but treated with vitamin K. Subtherapeutic INR, INR on 08/28/2019 is 2.1. Bridging with Lovenox. Peripheral vascular disease, patient has venous insufficiency on the right side that required ablation, peripheral angiogram May 2017, intervention to the anterior tibial artery, the wound has healed then developed a new ulcer after a trauma. Did balloon angioplasty to the right anterior tibial artery proximal portion has significant improvement the distal portion is occluded and did not improve, the posterior tibial artery and peroneal arteries were occluded with no collaterals in that area. The right SFA has multiple segment of moderate to severe stenosis, balloon angioplasty to the mid SFA with good results. Abdominal aorta has moderate disease, the left SFA has mild to moderate disease down to the trifurcation. Patient has nonhealing wounds to right ankle, underwent peripheral angiogram with Dr. Arias on July 08, 2019 with right SFA and anterior tibial artery angioplasty with good results. continue to monitor Severe mitral valve stenosis rheumatic valve, severe mitral regurgitation with severe pulmonary hypertension, estimated pulmonary artery pressure of 55 mmHg with severely dilated both atrium and prominent right ventricle with dilated IVC. discussed with Dr. Page, he recommended medical therapy at this time considering her to be high risk for morbidity and mortality if she undergoes valve surgery. She is not a candidate for mitral clip secondary to her mitral stenosis Was referred once again to Dr. Davila in January 2019 for evaluation for possible TMVR. Decided to continue with conservative management at this time. Possible TMVR, was referred to [facility] previously, will arrange for reevaluation Coronary artery disease, small vessel disease, nonobstructive disease, the prosthetic valve was functioning normally. Pulmonary artery pressure was 50/26, pulmonary capillary wedge pressure 35, right ventricular pressure 53/17. cardiac catheterization was done in September 2014. Stress test done in December 2016 showing no ischemia or infarction, EF 41 percent, continue to monitor Carotid stenosis, continue to monitor, followed by heart and vascular care. 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 followed and monitored by heart and vascular care. Hypertension, continue to monitor blood pressure Hyperlipidemia, continue on current medication monitor lipids Right hip fracture in May 2018 status post surgical repair, recovered well. Follow-up with Dr. Parker after discharge. Thank you for your consultation. Please call me if you have any questions. Zack Orozco MD, FACP, FACC, FSCAI, FHRS, CCDS Interventional Cardiology Cardiac Electrophysiology Vascular Medicine and Endovascular Interventions Cristiano OROZCO MD Aug 28, 2019 17:07
[2019-08-28] MEDS ORDERED: warFARin 2 MG (COUMADIN) TAB PO NR (18:00)
[2019-08-28 20:00] VITALS: BP 100/50
[2019-08-29] VITALS: BP 100/56
[2019-08-29 03:46] VITALS: BP 101/48
[2019-08-29 04:44] LABS: INR 2.4 (0.8-1.4); PROTHROMBIN TIME PATIENT 27.5 SEC (12.2-14.7)
[2019-08-29] MEDS: predniSONE 20 MG TAB PO SCH (06:22)
[2019-08-29] MEDS: FUROSEMIDE 40 MG (LASIX) TAB PO SCH (06:22)
[2019-08-29] MEDS: LEVOTHYROXINE 100 MCG (LEVOTHROID) TAB PO SCH (06:22)
[2019-08-29] MEDS: RT-ALBUTEROL/IPRATROPIUM 3 ML (DUONEB) VIAL INH SCH (06:46)
[2019-08-29 08:00] VITALS: BP 111/60
--- NOTE | 2019-08-29 08:31 | Occ Therapy Progress Note ---
Therapy Progress Note OT attempted visit this AM, pt seated on BSC stating she was feeling better than yesterday but feels like she still needs to have a BM. Pt and family pleasantly declined therapy at this time, OT to attempt again later. ANUP DORANTES OT Aug 29, 2019 08:31
[2019-08-29] MEDS: MEXILETINE 150 MG (MEXITIL) CAPSULE PO SCH (09:17)
[2019-08-29] MEDS: guaiFENesin (MUCINEX) 600 MG TAB PO SCH (09:17)
[2019-08-29] MEDS: PANTOPRAZOLE 40 MG (PROTONIX) TAB PO SCH (09:18)
[2019-08-29] MEDS: rOPINIRole 0.25 MG (REQUIP) TAB PO SCH (09:18)
[2019-08-29] MEDS: DIGOXIN 0.125 MG (LANOXIN) TAB PO SCH (09:18)
[2019-08-29] MEDS: DOCUSATE SODIUM 100 MG (COLACE) CAP PO SCH (09:18)
[2019-08-29] MEDS: SENNOSIDES 8.6 MG (SENOKOT) TAB PO SCH (09:18)
[2019-08-29] MEDS: ENOXAPARIN 80 MG/0.8 ML (LOVENOX) SYR SC SCH (09:19)
[2019-08-29] MEDS: POLYETHYLENE GLYCOL 17 GM (MIRALAX) PACK PO SCH (09:24)
[2019-08-29] MEDS ORDERED: DOCU100C37 PO (09:29)
[2019-08-29] MEDS ORDERED: PRED10TA22 PO (09:29)
[2019-08-29] MEDS ORDERED: POLY17PO31 PO (09:29)
[2019-08-29] MEDS ORDERED: SENN-141 PO (09:29)
[2019-08-29] MEDS ORDERED: ENOX80DI7 SC (09:29)
[2019-08-29] MEDS ORDERED: ZOLP5TAB7 PO (09:30)
--- NOTE | 2019-08-29 09:37 | Discharge Summary ---
Discharge Summary Reconcile Patient Problems Problems Reviewed?: Yes Hospital Course Hospital Course Date of Admission: Aug 16, 2019 at 00:05 Admission Diagnosis : Healthcare associated pneumonia Family Physician/Provider: Jake Prabhakar DO Date of Discharge: 08/29/19 Discharge Diagnosis: Healthcare associated pneumonia, acute on chronic heart failure with preserved ejection fraction Hospital Course: Anisha Mcfarland is an 84-year-old female with past medical history of heart audrey lure with preserved ejection fraction, chronic hypoxic respiratory failure, chronic kidney disease, mechanical aortic valve replacement on Coumadin, who presented with shortness of breath and was admitted with pneumonia. She was treated with a course of IV antibiotics and improved. She was also treated for an acute on chronic heart failure with preserved ejection fraction and exa cerbation. She was given IV diuretics and responded well. Her chronic kidney disease remained at baseline. Her INR became supratherapeutic and was eventually given vitamin K. She then became subtherapeutic and was started on Lovenox as a bridge until her INR is again therapeutic between 2.5 and 3.5. She was very debilitated after her prolonged hospitalization and was discharged to the [facility] for ongoing therapies. Her family was in agreement with this as they are unable to provide 24-hour support. Labs and Pending Lab Test: Laboratory Tests 08/29/19 03:48: Prothrombin Time 27.5H, INR Comment 2.4H Microbiology 08/18/19 Gram Stain - Final, Complete 08/18/19 Sputum Culture - Final, Complete Usual upper respiratory rowan 08/15/19 Blood Culture - Final, Complete No growth Home Meds Active Zolpidem Tartrate 5 Mg Tablet 5 Mg PO HS PRN 7 Days Prednisone 10 Mg Tab.ds.pk 10 Mg PO DAILY Take 4 tabs(40mg)daily,decrease by 1 tab(10MG)every other day. Polyethylene Glycol 3350 17 Gm Powd.pack 17 Gm PO BID 30 Days Docusate Sodium 100 Mg Capsule 100 Mg PO BID 30 Days Senna (Sennosides) 8.6 Mg Tablet 8.6 Mg PO BID 30 Days Enoxaparin Sodium 80 Mg/0.8 Ml Syringe 70 Mg SC DAILY@0800 7 Days Reported Digoxin 125 Mcg Tablet 125 Mcg PO Q48H Furosemide 40 Mg Tablet 40 Mg PO DAILY PRN TAKES TWICE DAILY- MAY TAKE 1 EXTRA TAB IF NEEDED FOR SWELLING Metolazone 2.5 Mg Tablet 2.5 Mg PO MON,FRI TAKES ON MON AND FRI AND NEEDED AND DIRECTED Potassium Chloride 10 Meq Capsule.er 10 Meq PO BID Ropinirole HCl 0.5 Mg Tablet 0.5 Mg PO TID Warfarin Sodium 2 Mg Tablet 4 Mg PO SUTUTHFRSA TAKES 2MG ON SUN & SUN, THEN 4 MG ALL OTHER DAYS (SUN,,,SUN,SAT) Warfarin Sodium 2 Mg Tablet 2 Mg PO MOWE TAKES 2MG ON SUN & SUN, THEN 4 MG ALL OTHER DAYS (SUN,,,SUN,SUN) Entresto 24 mg-26 mg Tablet (Sacubitril/Valsartan) 1 Each Tablet 1 Tab PO BID Tramadol HCl 50 Mg Tablet 50 Mg PO Q6H PRN Metoprolol Succinate 25 Mg Tab.er.24h 25 Mg PO DAILY Metolazone 2.5 Mg Tablet 2.5 Mg PO PRN PRN TAKES ON SUN AND SUN AND NEEDED AND DIRECTED Mexiletine HCl 150 Mg Cap 150 Mg PO Q12H Pantoprazole Sodium 40 Mg Tablet.dr 40 Mg PO DAILY Isosorbide Mononitrate ER (Isosorbide Mononitrate) 30 Mg Tab.er.24h 15 Mg PO DAILY TAKES 1/2 (30MG) TABLET Furosemide 40 Mg Tablet 40 Mg PO BID Loratadine 10 Mg Tablet 10 Mg PO DAILY Levothyroxine Sodium 100 Mcg Tablet 100 Mcg PO DAILY Meclizine HCl 25 Mg Tablet 25 Mg PO TID PRN Nitrostat (Nitroglycerin) 0.4 Mg Tab.subl 0.4 Mg SL UD PRN Instructions to Patient/Family Assessment/Instructions Take medications as prescribed. Participate in therapies. Take Lovenox injections until your INR is therapeutic. Follow Up Appt.: Next correction rounds Skilled NF Admit to: [facility] Certification (SNF) I certify that SNF services are required to be given on an inpatient basis because of the above named patient's need for halfway care on a continuing basis for the conditions(s) for which he/she was receiving inpatient hospital services prior to his/her transfer to the SNF. [facility] Order: Nursing Services, Office Nurse Practitioner-Evaluate & Treat, Physical Therapy-Evaluate & Treat Oxygen Delivery Method: Nasal Cannula Discharge Diet: Low Sodium Diet Daily Activity as Tolerated: Yes Resuscitation Status: Do Not Resuscitate Camryn Bradford Aug 29, 2019 09:31 Discharge Physical Exam General: Alert, Oriented X3, Cooperative, No Acute Distress HEENT: Atraumatic, PERRLA, EOMI, Mucous Memb Moist/[place] Lungs: Clear to Auscultation, Normal Air Movement Heart: Regular Rate, Normal S1, Normal S2, Other (Mechanical heart sounds) Abdomen: Normal Bowel Sounds, Soft, No Tenderness Extremities: No Edema, No Tenderness/Swelling Skin: No Rashes, No Significant Lesion Neuro: Other (Diffuse weakness) Psych/Mental Status: Mental Status NL, Mood NL CAMRYN BRADFORD MD Aug 29, 2019 09:36
--- NOTE | 2019-08-29 10:46 | NUR ---
provided prayer and Communion.
--- NOTE | 2019-08-29 11:19 | NUR ---
Arrangements made for to be discharged to [facility] for skilled care with Physical and Occupational orders. Pt lives alone and the skilled placement will hopefully be short-term and pt will be able to return to independent living with family assistance.CARE assessment completed and discharge orders faxed to [facility] and will be given to transport staff.
--- NOTE | 2019-08-29 11:49 | NUR ---
report given to cisco ROSAS [facility] [place]
[2019-08-29] MEDS ORDERED: warFARin 2.5 MG (COUMADIN) TAB PO SCH (18:00)
== END 2019-08-29 11:00 | disposition home or self-care (01) | DRG 291 ==
LOC: EDUNIT# 23:00 → ER 23:01 → 4TH 08-16 00:05 → ICU 08-19 15:50 → CSD 08-22 09:05
PROVIDERS: ADMIT Internal Medicine; ATTEND Internal Medicine
DX: I13.0 Hypertensive heart and chronic kidney disease with heart failure and stage 1 through stage 4 chronic kidney disease, or unspecified chronic kidney disease (principal); J18.9 Pneumonia, unspecified organism; J96.21 Acute and chronic respiratory failure with hypoxia; I50.43 Acute on chronic combined systolic (congestive) and diastolic (congestive) heart failure; N17.9 Acute kidney failure, unspecified; N18.4 Chronic kidney disease, stage 4 (severe); I42.9 Cardiomyopathy, unspecified; D63.1 Anemia in chronic kidney disease; I25.10 Atherosclerotic heart disease of native coronary artery without angina pectoris; E78.5 Hyperlipidemia, unspecified; I48.0 Paroxysmal atrial fibrillation; E86.0 Dehydration; K21.9 Gastro-esophageal reflux disease without esophagitis; I87.2 Venous insufficiency (chronic) (peripheral); I05.0 Rheumatic mitral stenosis; R79.1 Abnormal coagulation profile; E03.9 Hypothyroidism, unspecified; M19.91 Primary osteoarthritis, unspecified site; I73.9 Peripheral vascular disease, unspecified; Z95.810 Presence of automatic (implantable) cardiac defibrillator; Z95.2 Presence of prosthetic heart valve; Z99.81 Dependence on supplemental oxygen
CPT/HCPCS: 36415; 36600; 71045; 71046; 80048; 80053; 80162; 82805; 83605; 83735; 83880; 84100; 84145; 84484; 85007; 85025; 85027; 85610; 85730; 87040; 87070; 87205; 87804; 93005; 93306; 94640; 94660; 94760; 96361; 96374

== ENCOUNTER → 2019-09-10 | Outpatient (CLI) | payer OTHER ==
[~2019-09-10] MED LIST changes: +DOCU100C37 PO; +ENOX80DI7 SC; +POLY17PO31 PO; +PRED10TA22 PO; +SENN-141 PO; +TRAM-42 PO; -TRAM50TA2 PO; +TRM50T PO; +ZOLP5TAB PO
== END ==
LOC: WOUNDCARE 10:23
PROVIDERS: ATTEND Orthopaedic Surgery Hand Surgery
DX: I70.233 Atherosclerosis of native arteries of right leg with ulceration of ankle (principal); L97.312 Non-pressure chronic ulcer of right ankle with fat layer exposed; I87.331 Chronic venous hypertension (idiopathic) with ulcer and inflammation of right lower extremity; L97.212 Non-pressure chronic ulcer of right calf with fat layer exposed; I96 Gangrene, not elsewhere classified
CPT/HCPCS: 99213

== ENCOUNTER → 2019-09-17 | Outpatient (CLI) | payer OTHER ==
[~2019-09-17] MED LIST changes: +DIGO125T3 PO; -METO-370 PO; -METO-387 PO; +METO50TA7 PO; +MTP25TSR PO; +OMEP-280 PO; -OMEP20CA13 PO; -SACU1TAB PO; +SACU1TAB2 PO
== END ==
LOC: WOUNDCARE 10:13
PROVIDERS: ATTEND Orthopaedic Surgery Hand Surgery
DX: I70.233 Atherosclerosis of native arteries of right leg with ulceration of ankle (principal); L97.312 Non-pressure chronic ulcer of right ankle with fat layer exposed; L97.211 Non-pressure chronic ulcer of right calf limited to breakdown of skin; I87.331 Chronic venous hypertension (idiopathic) with ulcer and inflammation of right lower extremity
CPT/HCPCS: 97597

== ENCOUNTER → 2019-09-25 | Outpatient (CLI) | payer MEDICARE | LOC: WOUNDCARE 12:51 | PROVIDERS: ATTEND Orthopaedic Surgery Hand Surgery | DX: I70.261 Atherosclerosis of native arteries of extremities with gangrene, right leg (principal); L97.312 Non-pressure chronic ulcer of right ankle with fat layer exposed; L97.211 Non-pressure chronic ulcer of right calf limited to breakdown of skin; I87.331 Chronic venous hypertension (idiopathic) with ulcer and inflammation of right lower extremity | CPT/HCPCS: 11042 ==

== ENCOUNTER → 2019-10-01 | Outpatient (CLI) | payer MEDICARE | LOC: WOUNDCARE 13:27 | PROVIDERS: ATTEND Orthopaedic Surgery Hand Surgery | DX: I70.233 Atherosclerosis of native arteries of right leg with ulceration of ankle (principal); L97.312 Non-pressure chronic ulcer of right ankle with fat layer exposed; L97.211 Non-pressure chronic ulcer of right calf limited to breakdown of skin; I87.331 Chronic venous hypertension (idiopathic) with ulcer and inflammation of right lower extremity | CPT/HCPCS: 11042 ==

== ENCOUNTER → 2019-10-09 | Outpatient (CLI) | payer MEDICARE | LOC: WOUNDCARE 14:10 | PROVIDERS: ATTEND Orthopaedic Surgery Hand Surgery | DX: I70.233 Atherosclerosis of native arteries of right leg with ulceration of ankle (principal); L97.312 Non-pressure chronic ulcer of right ankle with fat layer exposed; L97.212 Non-pressure chronic ulcer of right calf with fat layer exposed; I87.331 Chronic venous hypertension (idiopathic) with ulcer and inflammation of right lower extremity | CPT/HCPCS: 11042 ==

== ENCOUNTER → 2019-10-15 | Outpatient (CLI) | payer MEDICARE | LOC: WOUNDCARE 13:26 | PROVIDERS: ATTEND Orthopaedic Surgery Hand Surgery | DX: L97.312 Non-pressure chronic ulcer of right ankle with fat layer exposed (principal); I70.233 Atherosclerosis of native arteries of right leg with ulceration of ankle; L97.212 Non-pressure chronic ulcer of right calf with fat layer exposed; I87.331 Chronic venous hypertension (idiopathic) with ulcer and inflammation of right lower extremity | CPT/HCPCS: 11042 ==

== ENCOUNTER → 2019-10-23 | Outpatient (CLI) | payer MEDICARE ==
[~2019-10-23] MED LIST changes: -MECL-106 PO; +MECL-149 PO; -OMEP-280 PO; +OMEP20CA18 PO; +ROPI0.5T4 PO
== END ==
LOC: WOUNDCARE 12:59
PROVIDERS: ATTEND Orthopaedic Surgery Hand Surgery
DX: I70.233 Atherosclerosis of native arteries of right leg with ulceration of ankle (principal); L97.312 Non-pressure chronic ulcer of right ankle with fat layer exposed; L97.212 Non-pressure chronic ulcer of right calf with fat layer exposed; I87.331 Chronic venous hypertension (idiopathic) with ulcer and inflammation of right lower extremity; I96 Gangrene, not elsewhere classified
CPT/HCPCS: 11042

== ENCOUNTER → 2019-10-29 | Outpatient (CLI) | payer MEDICARE | LOC: WOUNDCARE 13:06 | PROVIDERS: ATTEND Orthopaedic Surgery Hand Surgery | DX: I70.233 Atherosclerosis of native arteries of right leg with ulceration of ankle (principal); L97.312 Non-pressure chronic ulcer of right ankle with fat layer exposed; L97.212 Non-pressure chronic ulcer of right calf with fat layer exposed; I87.331 Chronic venous hypertension (idiopathic) with ulcer and inflammation of right lower extremity; I96 Gangrene, not elsewhere classified | CPT/HCPCS: 97597 ==

== ENCOUNTER → 2019-11-06 | Outpatient (CLI) | payer MEDICARE | LOC: WOUNDCARE 12:20 | PROVIDERS: ATTEND Surgery | DX: I70.261 Atherosclerosis of native arteries of extremities with gangrene, right leg (principal); L97.312 Non-pressure chronic ulcer of right ankle with fat layer exposed; L97.212 Non-pressure chronic ulcer of right calf with fat layer exposed; I87.331 Chronic venous hypertension (idiopathic) with ulcer and inflammation of right lower extremity | CPT/HCPCS: 99212 ==

== ENCOUNTER → 2019-11-12 | Outpatient (CLI) | payer MEDICARE | LOC: WOUNDCARE 14:09 | PROVIDERS: ATTEND Surgery | DX: L97.312 Non-pressure chronic ulcer of right ankle with fat layer exposed (principal); I70.233 Atherosclerosis of native arteries of right leg with ulceration of ankle; L97.221 Non-pressure chronic ulcer of left calf limited to breakdown of skin; I87.331 Chronic venous hypertension (idiopathic) with ulcer and inflammation of right lower extremity; I96 Gangrene, not elsewhere classified | CPT/HCPCS: 99213 ==

== ENCOUNTER → 2019-11-27 | Outpatient (CLI) | payer MEDICARE ==
[~2019-11-27] MED LIST changes: +ALBU2.5V4 NEB; +AMOX-358 PO; +ENOX60DI7 SC; +LEVO500T80 PO; +LORA-404 PO; +TRAM50TA3 PO
--- NOTE | 2019-11-27 10:55 | Diagnostic Imaging Report ---
INDICATION: Pneumonia. TIME OF EXAM: 10:21 AM Correlation is made with prior chest from 08/25/2019. FINDINGS: Changes of median sternotomy are noted. Cardiac defibrillator remains in place. The heart is enlarged but stable. There appear to be bibasilar pulmonary infiltrates. There may be some minimal right perihilar infiltrate as well. There are small effusions bilaterally. Upper lung whitehead are fairly clear. No pneumothorax is identified. IMPRESSION: Cardiomegaly with bilateral pulmonary infiltrates and small bilateral pleural effusions. Dictated by: Dictated on workstation # [id number]
== END ==
LOC: RAD 10:07
PROVIDERS: ATTEND Internal Medicine
DX: J18.1 Lobar pneumonia, unspecified organism (principal); R53.83 Other fatigue; R42 Dizziness and giddiness; J90 Pleural effusion, not elsewhere classified; I51.7 Cardiomegaly
CPT/HCPCS: 71046

== ENCOUNTER → 2019-12-04 | Outpatient (CLI) | payer MEDICARE | LOC: WOUNDCARE 12:31 | PROVIDERS: ATTEND Surgery | DX: L97.312 Non-pressure chronic ulcer of right ankle with fat layer exposed (principal); I70.233 Atherosclerosis of native arteries of right leg with ulceration of ankle; L97.221 Non-pressure chronic ulcer of left calf limited to breakdown of skin; I87.331 Chronic venous hypertension (idiopathic) with ulcer and inflammation of right lower extremity | CPT/HCPCS: 99212 ==

== ENCOUNTER 2019-12-08 10:59 | Emergency (ER) | payer MEDICARE ==
[~2019-12-08] VITALS: Ht 167.4 cm; Wt 60.0 kg
[~2019-12-08 10:59] MED LIST changes: -SENN-141 PO; +SENN-234 PO
[2019-12-08 11:25] LABS: BASOPHILS % (AUTO) 1 % (0-10); EOSINOPHILS # (AUTO) 0.2 10^3/uL (0.0-0.3); EOSINOPHILS % (AUTO) 4 % (0-10); HEMATOCRIT 30 % (35-52); HEMOGLOBIN 9.1 G/DL (11.5-16.0); LYMPHOCYTES # (AUTO) 0.5 X 10^3 (1.0-4.0); LYMPHOCYTES % (AUTO) 10 % (12-44); MEAN CORPUSCULAR HEMOGLOBIN 31 PG (25-34); MEAN CORPUSCULAR HGB CONC 31 G/DL (32-36); MEAN CORPUSCULAR VOLUME 103 FL (80-99); MEAN PLATELET VOLUME 9.7 FL (7.4-10.4); MONOCYTES # (AUTO) 0.6 X 10^3 (0.0-1.0); MONOCYTES % (AUTO) 11 % (0-12); NEUTROPHILS # (AUTO) 3.9 X 10^3 (1.8-7.8); NEUTROPHILS % (AUTO) 75 % (42-75); PLATELET COUNT 196 10^3/uL (130-400); RED CELL DISTRIBUTION WIDTH 14.4 % (10.0-14.5); WHITE BLOOD COUNT 5.2 10^3/uL (4.3-11.0)
[2019-12-08 11:37] LABS: INR 1.4 (0.8-1.4); PROTHROMBIN TIME PATIENT 17.3 SEC (12.2-14.7)
[2019-12-08 11:46] LABS: ALANINE AMINOTRANSFERASE 12 U/L (0-55); ALBUMIN 3.6 GM/DL (3.2-4.5); ALKALINE PHOSPHATASE 77 U/L (40-136); BILIRUBIN,TOTAL 0.6 MG/DL (0.1-1.0); BUN/CREATININE RATIO 39; CARBON DIOXIDE 29 MMOL/L (21-32); CHLORIDE 95 MMOL/L (98-107); CREATININE SERUM 1.37 MG/DL (0.60-1.30); GFR ESTIMATED 37; GLUCOSE 81 MG/DL (70-105); MAGNESIUM 2.2 MG/DL (1.6-2.4); POTASSIUM 4.4 MMOL/L (3.6-5.0); SODIUM 134 MMOL/L (135-145); TOTAL PROTEIN 7.4 GM/DL (6.4-8.2)
--- NOTE | 2019-12-08 11:46 | Diagnostic Imaging Report ---
Clinical indications: Patient with shortness of air, recent pneumonia. Exam: Portable chest x-ray upright view. Comparisons: Chest x-ray dated 11/27/2019. Findings: Again seen cardiomegaly with stable prominent pulmonary vascular congestion seen. There is slight decrease in lung volume with increased airspace opacities involving both midlung whitehead, both lung bases which may represent progression of lung infiltrates. There is blunting of left costophrenic angles may be related to pleural effusion. There is no pneumothorax. Again seen postoperative changes of the chest with sternotomy wires. Cardiac pacemaker/AICD is seen overlying the chest with leads projecting over the heart, stable. There are degenerative spurs involving the spine. IMPRESSION: 1: There is interval progression of airspace opacities involving both midlung whitehead both lung bases which may be related to lung infiltrate from infection or inflammatory process. Progression of mild pulmonary congestion may also be considered. 2: There is cardiomegaly with pulmonary vascular congestion which appears stable. 3: Suspected left pleural effusion. Dictated by: Dictated on workstation # [id number]
[2019-12-08 11:58] VITALS: BP 109/64
--- NOTE | 2019-12-08 12:40 | NUR ---
TO ROOM NO CHANGE
[2019-12-08 12:41] VITALS: BP 160/53
[2019-12-08 12:41] LABS: FREE T4 (FREE THYROXINE) 1.27 NG/DL (0.70-1.48)
[2019-12-08] MEDS ORDERED: FUROSEMIDE 40 MG/4 ML INJ (LASIX) IVP ONE (13:15)
--- NOTE | 2019-12-08 13:53 | ED General ---
General Chief Complaint: Respiratory Problems Stated Complaint: DIFFICULTY BREATHING Nursing Triage Note: TO ED PER W/C PER DAUGHTER PATIENT WAS DISCHRGED X1 WEEK AGO WITH DX OF PNEUMONIA. IS ON HOME 02 REPORTS INCEASE IN SWELLING OF LEGS AND WT GAIN. DR ABRAHAM HICKEY CON'T TO HAVE SWELING OF LEG. LEG'S SWOLLEN ON ADMIT. KURTIS FEVER. AND HAS BEEN HOME ALONE. . Nursing Sepsis Screen: No Definite Risk Source of Information: Patient, Family, Old Records Exam Limitations: No Limitations History of Present Illness Date Seen by Provider: Dec 08, 2019 Time Seen by Provider: 11:04 Initial Comments This 84-year-old woman presents to the emergency room with complaints of shortness of breath and increasing lower extremity edema. She reports gaining 7 or 8 pounds since discharge from the hospital when she was recently treated for congestive heart failure and pneumonia. Patient's daughter reports she has been more winded with exertion and has had oxygen desaturation sometimes as low as the 70s with ambulation. She presently is maintaining oxygen saturations in the 90s on 4 L by nasal cannula. Patient denied any fevers but her daughter reports she has been having fevers until the last 48 hours. She has not had any temperatures over 100 the last 48 hours. She completed her last dose of Augmentin today. Her INR recently has been subtherapeutic and she has been taking Lovenox. They were anticipating replacement of her pacemaker battery this Sunday. However, that has been put on hold because Dr. Parker wants to ensure her infection is completely clear before proceeding with a procedure. She is afebrile on arrival. Patient denies any new cough. She has recurrent cough during nebulizer treatments which is not new. She has a history of COPD and CHF. She has chronic hypoxia and typically uses 3-4 L by nasal cannula at home. She has compressive wraps on her lower extremities and she receives wound care from Dr. Rivera. Allergies and Home Medications Allergies Coded Allergies: JACQUELINEANo Known Allergies (Verified Allergy, Unknown, 11/14/05) Home Medications Albuterol Sulfate 2.5 Mg/3 Ml Vial.neb, 3 ML NEB Q6H PRN for SHORTNESS OF BREATH, (Reported) Amoxicillin/Potassium Clav 1 Each Tablet, 1 EACH PO BID Prescribed by: VENANCIO ARREAGA on 11/29/19 1133 Amoxicillin/Potassium Clav 1 Each Tablet, 1 EACH PO BID Prescribed by: SHARON LAM on 12/08/19 1354 Digoxin 125 Mcg Tablet, 125 MCG PO Q48H, (Reported) Enoxaparin Sodium 60 Mg/0.6 Ml Syringe, 60 MG SC Q24H Prescribed by: VENANCIO ARREAGA on 11/29/19 1133 Furosemide 40 Mg Tablet, 40 MG PO BID, (Reported) Furosemide 40 Mg Tablet, 40 MG PO DAILY PRN for SWELLING, (Reported) TAKES TWICE DAILY- MAY TAKE 1 EXTRA TAB IF NEEDED FOR SWELLING Guaifenesin 600 Mg Tab.er.12h, 600 MG PO Q12H PRN for CONGESTION, (Reported) Isosorbide Mononitrate 30 Mg Tab.er.24h, 15 MG PO DAILY, (Reported) TAKES 1/2 (30MG) TABLET Levothyroxine Sodium 100 Mcg Tablet, 100 MCG PO DAILY, (Reported) Loratadine 10 Mg Tablet, 10 MG PO DAILY, (Reported) Lorazepam 0.5 Mg Tablet, 0.5 MG PO HS PRN for INSOMNIA, (Reported) Metolazone 2.5 Mg Tablet, 2.5 MG PO PRN, (Reported) TAKES ON MON AND FRI AND NEEDED AND DIRECTED Metolazone 2.5 Mg Tablet, 2.5 MG PO MON,FRI, (Reported) TAKES ON MON AND FRI AND NEEDED AND DIRECTED Metoprolol Succinate 25 Mg Tab.er.24h, 25 MG PO DAILY, (Reported) Mexiletine HCl 150 Mg Cap, 150 MG PO Q12H, (Reported) Nitroglycerin 0.4 Mg Tab.subl, 0.4 MG SL UD PRN for CHEST PAIN, (Reported) Potassium Chloride 10 Meq Capsule.er, 10 MEQ PO BID, (Reported) Ropinirole HCl 0.5 Mg Tablet, 0.5 MG PO TID, (Reported) Sacubitril/Valsartan 1 Each Tablet, 1 TAB PO BID, (Reported) Tramadol HCl 50 Mg Tablet, 50 MG PO Q6H PRN for PAIN-MODERATE (5-7), (Reported) Warfarin Sodium 2 Mg Tablet, MG PO DAILY, (Reported) PT IS CURRENTLY TAKING (2MG) TAB TO EQUAL 1MG WHILE ON LEVAQUIN- HER NORMAL DOSE IF 2MG DAILY WHEN NOT ON AN ANTIBIOTIC Patient Home Medication List Home Medication List Reviewed: Yes Review of Systems Review of Systems Constitutional: see HPI EENTM: no symptoms reported Respiratory: see HPI Cardiovascular: see HPI Gastrointestinal: no symptoms reported Genitourinary: no symptoms reported : No Musculoskeletal: no symptoms reported Skin: no symptoms reported Psychiatric/Neurological: No Symptoms Reported Hematologic/Lymphatic: No Symptoms Reported Past Nptibsq-Oywvld-Jospsq Hx Past Med/Social Hx: Reviewed Nursing Past Med/Soc Hx Patient Social History Alcohol Use: Denies Use Recreational Drug Use: No Smoking Status: Never a Smoker 2nd Hand Smoke Exposure: No Recent Foreign Travel: No Contact w/Someone Who Travel: No Recent Infectious Disease Expo: No Recent Hopitalizations: No Immunizations Up To Date Tetanus Booster (TDap): More than 5yrs PED Vaccines UTD: Yes Date of Pneumonia Vaccine: May 31, 2015 Date of Influenza Vaccine: Jun 03, 2019 Seasonal Allergies Seasonal Allergies: No Past Medical History Surgeries: Yes (pacemaker/defib, artifical aortic valve, R hip) Cardiac, Section, Gallbladder, Orthopedic, Valve Replacement Respiratory: Yes (WEARS O2 AT 3L/NC) Pneumonia, COPD Currently Using CPAP: No Currently Using BIPAP: No Cardiac: Yes (CHF, mechanical aortic valve) Cardiomyopathy, Coronary Artery Disease, Hypertension, Valvular Heart Disease Neurological: Yes Vertigo : No 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 Sexually Transmitted Disease: No HIV/AIDS: No Genitourinary: No Gastrointestinal: No Gall Bladder Disease Musculoskeletal: No Arthritis Endocrine: Yes Hypothyroidsim HEENT: Yes Cataract Loss of Vision: Denies Hearing Impairment: Denies Cancer: No Did You Recieve Any Treatments: No Psychosocial: No Integumentary: Yes (venous stasis ulcers) Blood Disorders: Yes (anticoagulated) Adverse Reaction/Blood Tranf: No Family Medical History Reviewed Nursing Family Hx Family history: Diabetes mellitus 19 MOTHER Heart disease 19 MOTHER History of - respiratory disease 19 FATHER (PNEUMONIA- IN HIS 20'S) Myocardial infarction 19 MOTHER No Family History of: Abdominal aortic aneurysm Salina's disease Alcoholism Aphasia Cancer Cancer of colon Cataract Chest pain Congenital heart disease Congestive heart failure Cystic fibrosis Dementia Dysphagia Family history: Allergy Family history: Alzheimer's disease Family history: Arthritis Family history: Asthma Family history: Breast disease Family history: Cardiovascular disease Family history: Coronary thrombosis Family history: Gastrointestinal disease Family history: Glaucoma Family history: Hypertension Family history: Osteoporosis Family history: Thyroid disorder Headache Hearing loss Hereditary disease History of - anemia History of - disorder History of drug abuse Human immunodeficiency virus (HIV) seropositivity Hypercholesterolemia Infertile Kidney disease Parkinson's disease Prostate cancer Psychotic disorder Seizure disorder Stroke Tuberculosis Visual impairment No Pertinent Family Hx Physical Exam Vital Signs Vital Signs - First Documented Capillary Refill : Less Than 3 Seconds Height, Weight, BMI Height: 5'6.00" Weight: 138lbs. 6.0oz. [id number]; 21.00 BMI Method:Estimated General Appearance: No Apparent Distress, WD/WN HEENT: PERRL/EOMI, Normal ENT Inspection Neck: Normal Inspection; No JVD Respiratory: Crackles (scattered), Wheezing (scattered), Other (mild tachypnea) Cardiovascular: Regular Rate, Rhythm, No Murmur, Other (pitting edema of the lower extremities bilaterally) Gastrointestinal: Normal Bowel Sounds, Non Tender, Soft Extremity: Non Tender, Pedal Edema Neurologic/Psychiatric: Alert, Oriented x3, No Motor/Sensory Deficits, Normal Mood/Affect, co founder and president II-XII Norm as Tested Skin: Normal Color, Warm/Dry Progress/Results/Core Measures Suspected Sepsis Recent Fever Within 48 Hours: No Infection Criteria Present: None New/Unexplained Altered Menta: No Sepsis Screen: No Definite Risk SIRS Temperature: Pulse: 85 Respiratory Rate: 18 Laboratory Tests 12/08/19 11:12: White Blood Count 5.2 Blood Pressure 160 /53 Mean: 88 Laboratory Tests 12/08/19 11:12: Creatinine 1.37H, INR Comment 1.4, Platelet Count 196, Total Bilirubin 0.6 Results/Orders Lab Results Laboratory Tests Test 12/08/19 11:12 Range/Units White Blood Count 5.2 4.3-11.0 10^3/uL Red Blood Count 2.89 L 4.35-5.85 10^6/uL Hemoglobin 9.1 L 11.5-16.0 G/DL Hematocrit 30 L 35-52 % Mean Corpuscular Volume 103 H 80-99 FL Mean Corpuscular Hemoglobin 31 25-34 PG Mean Corpuscular Hemoglobin Concent 31 L 32-36 G/DL Red Cell Distribution Width 14.4 10.0-14.5 % Platelet Count 196 130-400 10^3/uL Mean Platelet Volume 9.7 7.4-10.4 FL Neutrophils (%) (Auto) 75 42-75 % Lymphocytes (%) (Auto) 10 L 12-44 % Monocytes (%) (Auto) 11 0-12 % Eosinophils (%) (Auto) 4 0-10 % Basophils (%) (Auto) 1 0-10 % Neutrophils # (Auto) 3.9 1.8-7.8 X 10^3 Lymphocytes # (Auto) 0.5 L 1.0-4.0 X 10^3 Monocytes # (Auto) 0.6 0.0-1.0 X 10^3 Eosinophils # (Auto) 0.2 0.0-0.3 10^3/uL Basophils # (Auto) 0.0 0.0-0.1 10^3/uL Prothrombin Time 17.3 H 12.2-14.7 SEC INR Comment 1.4 0.8-1.4 Activated Partial Thromboplast Time 47 H 24-35 SEC Sodium Level 134 L 135-145 MMOL/L Potassium Level 4.4 3.6-5.0 MMOL/L Chloride Level 95 L 98-107 MMOL/L Carbon Dioxide Level 29 21-32 MMOL/L Anion Gap 10 5-14 MMOL/L Blood Urea Nitrogen 53 H 7-18 MG/DL Creatinine 1.37 H 0.60-1.30 MG/DL Estimat Glomerular Filtration Rate 37 BUN/Creatinine Ratio 39 Glucose Level 81 70-105 MG/DL Calcium Level 9.0 8.5-10.1 MG/DL Corrected Calcium 9.3 8.5-10.1 MG/DL Magnesium Level 2.2 1.6-2.4 MG/DL Total Bilirubin 0.6 0.1-1.0 MG/DL Aspartate Amino Transf (AST/SGOT) 19 5-34 U/L Alanine Aminotransferase (ALT/SGPT) 12 0-55 U/L Alkaline Phosphatase 77 40-136 U/L Myoglobin 80.9 10.0-92.0 NG/ML Troponin I < 0.028 <0.028 NG/ML C-Reactive Protein High Sensitivity 1.38 H 0.00-0.50 MG/DL B-Type Natriuretic Peptide 859.5 H <100.0 PG/ML Total Protein 7.4 6.4-8.2 GM/DL Albumin 3.6 3.2-4.5 GM/DL Procalcitonin 0.07 <0.10 NG/ML Thyroid Stimulating Hormone (TSH) 2.64 0.35-4.94 UIU/ML Free Thyroxine 1.27 0.70-1.48 NG/DL Digoxin Level 0.67 L 0.80-2.00 NG/ML My Orders Orders - SHARON HOLGUIN MD Cbc With Automated Diff (12/08/19 11:02) Magnesium (12/08/19 11:02) Chest 1 View, Ap/Pa Only (12/08/19 11:02) Ekg Tracing (12/08/19 11:02) Comprehensive Metabolic Panel (12/08/19 11:02) Myoglobin Serum (12/08/19 11:02) Protime With Inr (12/08/19 11:02) Partial Thromboplastin Time (12/08/19 11:02) O2 (12/08/19 11:02) Monitor-Rhythm Ecg Trace Only (12/08/19 11:02) Lipid Panel (12/09/19 06:00) Ed Iv/Invasive Line Start (12/08/19 11:02) BNP (12/08/19 11:02) Hs C Reactive Protein (12/08/19 11:12) Procalcitonin (Pct) (12/08/19 11:12) Troponin I (12/08/19 11:12) Digoxin (12/08/19 12:06) Thyroid Stimulating Hormone (12/08/19 12:06) Free T4 (Free Thyroxine) (12/08/19 12:06) Furosemide Injection (Lasix Injection) (12/08/19 13:15) Medications Given in ED Current Medications Medications Dose Ordered Sig/Sam Route Start Time Stop Time Status Last Admin Dose Admin Furosemide 80 mg ONCE ONCE IVP 12/08/19 13:15 12/08/19 13:16 DC 12/08/19 13:35 80 MG Vital Signs/I&O 12/08/19 12/08/19 12/08/19 12/08/19 10:59 10:59 11:58 12:41 Temp 36.3 Pulse 85 80 85 Resp 18 18 18 B/P (MAP) 105/58 (74) 109/64 (79) 160/53 (88) Pulse Ox 100 98 100 O2 Delivery Nasal Cannula Nasal Cannula Nasal Cannula Nasal Cannula O2 Flow Rate 4.00 4.00 4.00 4.00 Capillary Refill : Less Than 3 Seconds Blood Pressure Mean: 88 Progress Note : Progress Note Labs, x-ray, and EKG were reviewed. Case was discussed with Dr. Parker. The fevers seem to be improving. However, because she is still symptomatic, we will extend her antibiotic therapy out another 5 days. CRP and pro-calcitonin were both low indicating pneumonia is well controlled. I suspect her shortness of breath is more so due to fluid status and possible pleural effusion. She was given Lasix 80 mg IV in the emergency room and instructed to follow-up for further treatment. Chest x-ray suggested maybe a slight worsening and congestion and increase in pleural effusion. I discussed risks and benefits of admitting the patient versus discharge home with patient's daughter and with Dr. Parker. Given the current coronavirus pandemic we feel it is safer for her to try managing her present illness at home. I also discussed INR management with Dr. Parker. He does not intend to replace the pacemaker battery until he is certain infection is cleared and the chest x-ray improves. For this reason he recommends titrating warfarin to achieve therapeutic INR. She is presently taking 2 mg of warfarin a day. I instructed her to take 4 mg today and receive further instructions from Dr. Prabhakar. Dr. Parker recommends having her INR checked again on . ECG Initial ECG Impression Date: Dec 08, 2019 Initial ECG Impression Time: 11:11 Initial ECG Rate: 82 Comment Paced rhythm with no concerning changes. Diagnostic Imaging Diagonstic Imaging: Xray Plain Films/CT/US/NM/MRI: chest Comments Chest x-ray viewed by me and compared with prior. Report reviewed. See report below: NAME: KATHY ELLIS [facility] REC#: [id number] PT STATUS: REG ER : 1935 PHYSICIAN: SHARON HOLGUIN MD ADMIT DATE: 12/08/19/ER Draft Date of Exam:12/08/19 CHEST 1 VIEW, AP/PA ONLY Clinical indications: Patient with shortness of air, recent pneumonia. Exam: Portable chest x-ray upright view. Comparisons: Chest x-ray dated 11/27/2019. Findings: Again seen cardiomegaly with stable prominent pulmonary vascular congestion seen. There is slight decrease in lung volume with increased airspace opacities involving both midlung whitehead, both lung bases which may represent progression of lung infiltrates. There is blunting of left costophrenic angles may be related to pleural effusion. There is no pneumothorax. Again seen postoperative changes of the chest with sternotomy wires. Cardiac pacemaker/AICD is seen overlying the chest with leads projecting over the heart, stable. There are degenerative spurs involving the spine. IMPRESSION: 1: There is interval progression of airspace opacities involving both midlung whitehead both lung bases which may be related to lung infiltrate from infection or inflammatory process. Progression of mild pulmonary congestion may also be considered. 2: There is cardiomegaly with pulmonary vascular congestion which appears stable. 3: Suspected left pleural effusion. Dictated on workstation # [id number] Dict: 12/08/19 1138 Trans: 12/08/19 1146 [facility] [id number] Interpreted by: BECKY ACKERMAN MD Departure Impression Primary Impression: Acute exacerbation of congestive heart failure Qualified Codes: I50.9 - Heart failure, unspecified Additional Impressions: Dyspnea Qualified Codes: R06.00 - Dyspnea, unspecified History of recent pneumonia Subtherapeutic international normalized ratio (INR) Mechanical heart valve present Disposition: 01 HOME, SELF-CARE Condition: Stable Departure-Patient Inst. Decision time for Depature: 13:40 Referrals: RUSTAM PRABHAKAR DO (PCP/Family) Primary Care Physician Patient Instructions: CHF Add. Discharge Instructions: Follow-up with Dr. Prabhakar and Dr. Parker as soon as possible. Continue with Lasix (furosemide) and metolazone diuretics as previously prescribed. Finish the additional 5 days of Augmentin for treatment of pneumonia to ensure the pneumonia completely clears and fevers resolve for several days before rescheduling the pacemaker battery replacement. Dr. Parker would like to ensure that the infection is completely cleared and chest x-ray improves before replacing the pacemaker battery. Continue to monitor temperatures. If you have recurrent temperatures greater than 100 and persistent increased shortness of breath, contact the emergency room and consider returning for further evaluation. Take a double dose of warfarin totaling 4 mg today. Beyond that, referr to Dr. Prabhakar for instructions on warfarin management. Dr. Parker suggests we adjust warfarin at this point to achieve a therapeutic INR level of 2.5. Continue using Lovenox (enoxaparin) injections until INR is 2.5. Elevate feet when at rest. Call or return to care if you have any further problems or concerns. All discharge instructions reviewed with patient and/or family. Voiced understanding. Scripts Amoxicillin/Potassium Clav (Augmentin 875-125 Tablet) 1 Each Tablet 1 EACH PO BID, #10 TAB 0 Refills Prov: SHARON HOLGUIN MD 12/08/19 Copy Copies To 1: RUSTAM PRABHAKAR DO Copies To 2: PRANEETH PARKER MD, JOSHUA T MD Dec 08, 2019 13:53
[2019-12-08] MEDS ORDERED: AMOX-358 PO (13:54)
[2019-12-08 13:58] VITALS: BP 108/60
== END 2019-12-08 13:58 | disposition home or self-care (01) ==
LOC: EDUNIT# 10:59 → ER 11:01
DX: I11.0 Hypertensive heart disease with heart failure (principal); I50.9 Heart failure, unspecified; Z95.2 Presence of prosthetic heart valve; Z87.01 Personal history of pneumonia (recurrent); R09.02 Hypoxemia; J44.9 Chronic obstructive pulmonary disease, unspecified; I42.9 Cardiomyopathy, unspecified; I25.10 Atherosclerotic heart disease of native coronary artery without angina pectoris; M19.91 Primary osteoarthritis, unspecified site; E03.9 Hypothyroidism, unspecified; I87.2 Venous insufficiency (chronic) (peripheral); Z95.810 Presence of automatic (implantable) cardiac defibrillator; Z99.81 Dependence on supplemental oxygen
CPT/HCPCS: 36415; 71045; 80053; 80162; 83735; 83874; 83880; 84145; 84439; 84443; 84484; 85025; 85610; 85730; 86141; 93041

== ENCOUNTER 2019-12-10 21:10 | Inpatient (IN) | payer MEDICARE ==
[~2019-12-10] VITALS: Ht 167 cm; Wt 67.0 kg
[2019-12-10] MEDS ORDERED: VANCOMYCIN INJECTION 1,000 MG in NS (IVPB) 250 ML IV ONE (21:45)
[2019-12-10] MEDS ORDERED: PIPERACILLIN SODIUM/TAZOBACTAM 4.5 GM in NS (IVPB) 100 ML IV ONE (21:45)
--- NOTE | 2019-12-10 21:53 | ED Respiratory ---
General Stated Complaint: SOB Source: patient, family Exam Limitations: no limitations History of Present Illness Date Seen by Provider: Dec 10, 2019 Time Seen by Provider: 21:23 Initial Comments Patient arrives the ER by EMS from home with chief complaint shortness of breath increasing oxygen demand. She typically uses 3-4 L by nasal cannula and her oxygen saturation the upper 90s but she had increased work of breathing per EMS of the foot or on a nonrebreather at 10 L/m which increased her discomfort. She says she has a touch of COPD. She does not smoke cigarettes. She does not use breathing treatments. She had a fever starting today with a MAXIMUM TEMPERATURE of 101 Fahrenheit. She took a Tylenol at 1930, 2 hours prior to arrival. She is afebrile at arrival to the ER. She was seen 2 days ago for shortness of breath and because she had not had any fever at that point and only minimal coughing she was given Lasix and had her Lasix increased to 80 mg in the morning and 40 mg at night from 40 mg twice a day before. She also is subtherapeutic on her INR and on Lovenox shots. She follows with Dr. Parker and has a history of aortic valve replacement. She's being treated outpatient with Augmentin on her second course starting 2 days ago. Influenza, strep swabs are not obtained on her previous ER visit. She had previously planned to have her pacemaker generator changed out by Dr. Parker this week if she had no infection. The patient's denying any chest pain. She still having some edema in her feet but she thinks is better than 2 days ago. Allergies and Home Medications Allergies Coded Allergies: NKANo Known Allergies (Verified Allergy, Unknown, 11/14/05) Home Medications Albuterol Sulfate 2.5 Mg/3 Ml Vial.neb, 3 ML NEB Q6H PRN for SHORTNESS OF BREATH, (Reported) Amoxicillin/Potassium Clav 1 Each Tablet, 1 EACH PO BID Prescribed by: VENANCIO ARREAGA on 11/29/19 1133 Amoxicillin/Potassium Clav 1 Each Tablet, 1 EACH PO BID Prescribed by: SHARON LAM on 12/08/19 1354 Digoxin 125 Mcg Tablet, 125 MCG PO Q48H, (Reported) Enoxaparin Sodium 60 Mg/0.6 Ml Syringe, 60 MG SC Q24H Prescribed by: VENANCIO ARREAGA on 11/29/19 1133 Furosemide 40 Mg Tablet, 40 MG PO BID, (Reported) Furosemide 40 Mg Tablet, 40 MG PO DAILY PRN for SWELLING, (Reported) TAKES TWICE DAILY- MAY TAKE 1 EXTRA TAB IF NEEDED FOR SWELLING Guaifenesin 600 Mg Tab.er.12h, 600 MG PO Q12H PRN for CONGESTION, (Reported) Isosorbide Mononitrate 30 Mg Tab.er.24h, 15 MG PO DAILY, (Reported) TAKES 1/2 (30MG) TABLET Levothyroxine Sodium 100 Mcg Tablet, 100 MCG PO DAILY, (Reported) Loratadine 10 Mg Tablet, 10 MG PO DAILY, (Reported) Lorazepam 0.5 Mg Tablet, 0.5 MG PO HS PRN for INSOMNIA, (Reported) Metolazone 2.5 Mg Tablet, 2.5 MG PO PRN, (Reported) TAKES ON MON AND FRI AND NEEDED AND DIRECTED Metolazone 2.5 Mg Tablet, 2.5 MG PO MON,FRI, (Reported) TAKES ON MON AND FRI AND NEEDED AND DIRECTED Metoprolol Succinate 25 Mg Tab.er.24h, 25 MG PO DAILY, (Reported) Mexiletine HCl 150 Mg Cap, 150 MG PO Q12H, (Reported) Nitroglycerin 0.4 Mg Tab.subl, 0.4 MG SL UD PRN for CHEST PAIN, (Reported) Potassium Chloride 10 Meq Capsule.er, 10 MEQ PO BID, (Reported) Ropinirole HCl 0.5 Mg Tablet, 0.5 MG PO TID, (Reported) Sacubitril/Valsartan 1 Each Tablet, 1 TAB PO BID, (Reported) Tramadol HCl 50 Mg Tablet, 50 MG PO Q6H PRN for PAIN-MODERATE (5-7), (Reported) Warfarin Sodium 2 Mg Tablet, MG PO DAILY, (Reported) PT IS CURRENTLY TAKING (2MG) TAB TO EQUAL 1MG WHILE ON LEVAQUIN- HER NORMAL DOSE IF 2MG DAILY WHEN NOT ON AN ANTIBIOTIC Patient Home Medication List Home Medication List Reviewed: Yes Review of Systems Review of Systems Constitutional: chills, fever, malaise EENTM: No ear discharge, No ear pain Respiratory: cough, phlegm, short of breath; No wheezing Cardiovascular: No chest pain; Hx of Intervention, vascular heart diseas, other (History of aortic valve replacement) Gastrointestinal: No abdominal pain, No constipation, No diarrhea, No nausea Genitourinary: No discharge, No dysuria Musculoskeletal: No back pain, No joint pain Hematologic/Lymphatic: Easy Bleeding, Easy Bruising All Other Systems Reviewed Negative Unless Noted: Yes Past Gfrahpy-Zdlopb-Ptliix Hx Patient Social History Alcohol Use: Denies Use Recreational Drug Use: No Smoking Status: Never a Smoker 2nd Hand Smoke Exposure: No Recent Hopitalizations: No Immunizations Up To Date Tetanus Booster (TDap): More than 5yrs PED Vaccines UTD: Yes Date of Pneumonia Vaccine: May 31, 2015 Date of Influenza Vaccine: Jun 03, 2019 Seasonal Allergies Seasonal Allergies: No Past Medical History Surgeries: Yes (pacemaker/defib, artifical aortic valve, R hip) Cardiac, Section, Gallbladder, Orthopedic, Valve Replacement Respiratory: Yes (WEARS O2 AT 3L/NC) Pneumonia, COPD Currently Using CPAP: No Currently Using BIPAP: No Cardiac: Yes (CHF, mechanical aortic valve) Cardiomyopathy, Coronary Artery Disease, Hypertension, Valvular Heart Disease Neurological: Yes Vertigo Reproductive Disorders: No [employer] History: Menopausal Sexually Transmitted Disease: No HIV/AIDS: No Genitourinary: No Gastrointestinal: No Gall Bladder Disease Musculoskeletal: No Arthritis Endocrine: Yes Hypothyroidsim HEENT: Yes Cataract Loss of Vision: Denies Hearing Impairment: Denies Cancer: No Did You Recieve Any Treatments: No Psychosocial: No Integumentary: Yes (venous stasis ulcers) Blood Disorders: Yes (anticoagulated) Adverse Reaction/Blood Tranf: No Family Medical History Family history: Diabetes mellitus 19 MOTHER Heart disease 19 MOTHER History of - respiratory disease 19 FATHER (PNEUMONIA- IN HIS 20'S) Myocardial infarction 19 MOTHER No Family History of: Abdominal aortic aneurysm Maynor's disease Alcoholism Aphasia Cancer Cancer of colon Cataract Chest pain Congenital heart disease Congestive heart failure Cystic fibrosis Dementia Dysphagia Family history: Allergy Family history: Alzheimer's disease Family history: Arthritis Family history: Asthma Family history: Breast disease Family history: Cardiovascular disease Family history: Coronary thrombosis Family history: Gastrointestinal disease Family history: Glaucoma Family history: Hypertension Family history: Osteoporosis Family history: Thyroid disorder Headache Hearing loss Hereditary disease History of - anemia History of - disorder History of drug abuse Human immunodeficiency virus (HIV) seropositivity Hypercholesterolemia Infertile Kidney disease Parkinson's disease Prostate cancer Psychotic disorder Seizure disorder Stroke Tuberculosis Visual impairment No Pertinent Family Hx Physical Exam Capillary Refill : Height: 5'6.00" Weight: 138lbs. 6.0oz. [id number]; 21.00 BMI Method:Estimated General Appearance: mild distress, thin Eyes: Bilateral Eye Normal Inspection, Bilateral Eye PERRL, Bilateral Eye EOMI HEENT: PERRL/EOMI, normal ENT inspection, pharynx normal Neck: non-tender, full range of motion, supple, normal inspection Respiratory: lungs clear, no respiratory distress, no accessory muscle use, decreased breath sounds (Along bilateral bases) Cardiovascular: normal peripheral pulses, regular rate, rhythm Gastrointestinal: normal bowel sounds, non tender, soft Neurologic/Psychiatric: alert, normal mood/affect, oriented x 3 Skin: normal color, warm/dry Focused Exam Sepsis Stage: Sepsis Possible Source: Pulmonary Lactate Level 12/10/19 21:43: Lactic Acid Level 0.65 Time of Focused Exam: 22:58 Respiratory: Lungs Clear, No Accessory Muscle Use, Decreased Breath Sounds, Respiratory Distress (mild 96% on 6 L by nasal cannula) Cardiovascular: Regular Rate, Rhythm, Normal Peripheral Pulses Capillary Refill: Less Than 3 Seconds Peripheral Pulses: 2+ Radial Pulses (R), 2+ Radial Pulses (L) Skin: normal color, warm/dry Lactic Acid Level Laboratory Tests Test 12/10/19 21:43 Lactic Acid Level 0.65 MMOL/L (0.50-2.00) Within 3hrs of presentation: Admin fluids, Admin ABX, Blood cultures prior to ABX's, Focus exam, Lactate level Progress/Results/Core Measures Suspected Sepsis SIRS Temperature: Pulse: Respiratory Rate: Laboratory Tests 12/10/19 21:43: White Blood Count 5.4 Blood Pressure / Mean: 12/10/19 21:43: Lactic Acid Level 0.65 Laboratory Tests 12/10/19 21:43: Creatinine 1.53H, INR Comment 1.8H, Platelet Count 211, Total Bilirubin 0.4 Results/Orders Lab Results Laboratory Tests Test 12/10/19 21:43 12/10/19 22:02 Range/Units White Blood Count 5.4 4.3-11.0 10^3/uL Red Blood Count 2.74 L 4.35-5.85 10^6/uL Hemoglobin 8.7 L 11.5-16.0 G/DL Hematocrit 28 L 35-52 % Mean Corpuscular Volume 104 H 80-99 FL Mean Corpuscular Hemoglobin 32 25-34 PG Mean Corpuscular Hemoglobin Concent 31 L 32-36 G/DL Red Cell Distribution Width 14.3 10.0-14.5 % Platelet Count 211 130-400 10^3/uL Mean Platelet Volume 10.1 7.4-10.4 FL Neutrophils (%) (Auto) 72 42-75 % Lymphocytes (%) (Auto) 12 12-44 % Monocytes (%) (Auto) 10 0-12 % Eosinophils (%) (Auto) 6 0-10 % Basophils (%) (Auto) 1 0-10 % Neutrophils # (Auto) 3.9 1.8-7.8 X 10^3 Lymphocytes # (Auto) 0.6 L 1.0-4.0 X 10^3 Monocytes # (Auto) 0.5 0.0-1.0 X 10^3 Eosinophils # (Auto) 0.3 0.0-0.3 10^3/uL Basophils # (Auto) 0.0 0.0-0.1 10^3/uL Prothrombin Time 21.5 H 12.2-14.7 SEC INR Comment 1.8 H 0.8-1.4 Activated Partial Thromboplast Time 50 H 24-35 SEC Blood Gas Puncture Site L RAD Blood Gas Patient Temperature 36.9 Arterial Blood pH 7.41 7.37-7.43 Arterial Blood Partial Pressure CO2 52 H 35-45 MMHG Arterial Blood Partial Pressure O2 243 H 79-93 MMHG Arterial Blood HCO3 32 H 23-27 MMOL/L Arterial Blood Total CO2 33.9 H 21.0-31.0 MMOL/L Arterial Blood Oxygen Saturation 100 94-100 % Arterial Blood Base Excess 7.6 H -2.5-2.5 MMOL/L Earl Test YES-POS Blood Gas Ventilator Setting NO Blood Gas Inspired Oxygen 10L Sodium Level 137 135-145 MMOL/L Potassium Level 4.4 3.6-5.0 MMOL/L Chloride Level 97 L 98-107 MMOL/L Carbon Dioxide Level 29 21-32 MMOL/L Anion Gap 11 5-14 MMOL/L Blood Urea Nitrogen 59 H 7-18 MG/DL Creatinine 1.53 H 0.60-1.30 MG/DL Estimat Glomerular Filtration Rate 32 BUN/Creatinine Ratio 39 Glucose Level 103 70-105 MG/DL Lactic Acid Level 0.65 0.50-2.00 MMOL/L Calcium Level 8.7 8.5-10.1 MG/DL Corrected Calcium 9.0 8.5-10.1 MG/DL Total Bilirubin 0.4 0.1-1.0 MG/DL Aspartate Amino Transf (AST/SGOT) 17 5-34 U/L Alanine Aminotransferase (ALT/SGPT) 12 0-55 U/L Alkaline Phosphatase 73 40-136 U/L Troponin I 0.033 H <0.028 NG/ML C-Reactive Protein High Sensitivity 1.49 H 0.00-0.50 MG/DL B-Type Natriuretic Peptide 647.1 H <100.0 PG/ML Total Protein 7.6 6.4-8.2 GM/DL Albumin 3.6 3.2-4.5 GM/DL Procalcitonin 0.07 <0.10 NG/ML Group A Streptococcus Screen NEGATIVE NEGATIVE My Orders Orders - LEESA KOWALSKI Arterial Blood Gas (12/10/19 21:46) Procalcitonin (Pct) (12/10/19 21:53) Hs C Reactive Protein (12/10/19 21:53) Ekg Tracing (12/10/19 21:53) Influenza A And B Antigens (12/10/19 21:53) Rapid Strep A Screen (12/10/19 21:53) Coronavirus Sars-Cov-2 So 2018 (12/10/19 21:53) Troponin I (12/10/19 21:53) Albuterol/Ipra Inhalation Soln (Duoneb I (12/10/19 22:00) Svn Small Volume Nebulizer (12/10/19 21:53) Medications Given in ED Current Medications Medications Dose Ordered Sig/Sam Route Start Time Stop Time Status Last Admin Dose Admin Albuterol/ Ipratropium 3 ml ONCE ONCE INH 12/10/19 22:00 12/10/19 22:01 DC 12/10/19 22:30 3 ML Piperacillin Sod/ Tazobactam Sod 4.5 gm/Sodium Chloride 100 ml @ 200 mls/hr ONCE ONCE IV 12/10/19 21:45 12/10/19 22:14 DC 12/10/19 22:35 200 MLS/HR Vital Signs/I&O Capillary Refill : Progress Note #1: Time: 22:06 Progress Note Patient presents rest or distress [id number] on top of chronic respiratory distress. She is on a nonrebreather at 10 L satting at 98-99%. When we briefly took the nonrebreather mask off her to swab her nose she dipped down to 88% quickly. She is dependent on oxygen at 4 L by nasal cannula. EMS reports she was having visible increased work of breathing. We plan to give her breathing treatment although it on your wheezing. Does have diminished lung bases which could either be from closed off airways or more likely pleural effusion based on previous x-rays. Plan to get a septic workup since her heart rates in the 90s and she has a stated fever 101.2. She was subtherapeutic on prior visit check INR again. We'll hold off giving any IV fluids until he get her BNP and chest x-ray back. We did decide to initiate Zosyn and vancomycin. She is on antibiotics outpatient for presumed pneumonia Augmentin. She is not on anything that would cover for atypicals such as azithromycin or doxycycline. Plan to get viral swabs and rapid strep assay. Given her history of heart disease and the possibility of using hydrochloroquine as she would be considered a patient under investigation we will get an EKG. She is on digoxin and given her history of age, comorbidities and potential dysrhythmias we would be cautious to start this medication. Progress Note #2: Time: 22:32 Progress Note ABG demonstrates stable CO2 retention with elevated oxygen. We reduced her to 6 L by nasal cannula and her oxygen sats came down to about 96% same. She is more comfortable with her breathing now. We'll give her breathing treatment see if that makes any difference. She has a fever and progression of disease both on x- ray and clinically we plan to hold onto her hospital. At this point however she has good vital signs her heart rates down to 80s. Suspect maybe more overload related pneumonia based on early normal white count and CRP. Pro calcitonin is pending. Lactate is unremarkable. Blood urea nitrogen is elevated. The patient is okay with allowing us to discuss the case with her daughter ARABELLA. Discussed the case with the patient's daughter ARABELLA over the phone. Weaving cautious with fluids because of her history of CHF. Give her a liter which is right around 20 mL/kg based on 125 pound body weight. We will then hold the rest fluids overnight and reevaluate in the morning. ECG Initial ECG Impression Date: Dec 10, 2019 Initial ECG Impression Time: 22:06 Initial ECG Rate: 80 Initial ECG Intervals: Normal Initial ECG Impression: Nonspecific Changes Initial ECG Comparisson: Unchanged Comment Ventricularly paced rhythm without clinically relevant ST elevation or depressio n. Diagnostic Imaging Diagonstic Imaging: Xray Plain Films/CT/US/NM/MRI: chest Comments Slight increase in pleural effusion seen in the right lung base. Patchy either edematous, scarring or possibly infectious appearance to the lung parenchyma however this appears to be chronic compared to old imaging. Reviewed: Reviewed by Me Departure Communication (Admissions) Time/Spoke to Admitting Phy: 22:[address] Miranda and he agrees to admit the patient. Time/Spoke to Consulting Phy: 22:[address] Moore, cardiology Impression Primary Impression: Pneumonia Qualified Codes: J18.9 - Pneumonia, unspecified organism Additional Impressions: Hypoxia Sepsis Qualified Codes: A41.9 - Sepsis, unspecified organism; R65.20 - Severe sepsis without septic shock; J96.01 - Acute respiratory failure with hypoxia Disposition: 09 ADMITTED INPATIENT Condition: Stable Admissions Decision to Admit Reason: Admit from ER (General) Decision to Admit/Date: Dec 10, 2019 Time/Decision to Admit Time: 22:21 Departure-Patient Inst. Referrals: RUSTAM CALI DO (PCP/Family) Primary Care Physician LEESA KOWALSKI Dec 10, 2019 21:53
[2019-12-10 21:59] LABS: ABG BASE EXCESS 7.6 MMOL/L (-2.5-2.5); ABG OXYGEN SATURATION 100 % (94-100); ABG PCO2 52 MMHG (35-45); ABG PH 7.41 (7.37-7.43); ABG PO2 243 MMHG (79-93); ABG TCO2 33.9 MMOL/L (21.0-31.0); ALLENS TEST YES-POS; INSPIRED O2 10L; PATIENT TEMP 36.9; VENTILATOR NO
[2019-12-10 22:00] LABS: BASOPHILS % (AUTO) 1 % (0-10); EOSINOPHILS # (AUTO) 0.3 10^3/uL (0.0-0.3); EOSINOPHILS % (AUTO) 6 % (0-10); HEMATOCRIT 28 % (35-52); HEMOGLOBIN 8.7 G/DL (11.5-16.0); LYMPHOCYTES # (AUTO) 0.6 X 10^3 (1.0-4.0); LYMPHOCYTES % (AUTO) 12 % (12-44); MEAN CORPUSCULAR HEMOGLOBIN 32 PG (25-34); MEAN CORPUSCULAR HGB CONC 31 G/DL (32-36); MEAN CORPUSCULAR VOLUME 104 FL (80-99); MEAN PLATELET VOLUME 10.1 FL (7.4-10.4); MONOCYTES # (AUTO) 0.5 X 10^3 (0.0-1.0); MONOCYTES % (AUTO) 10 % (0-12); NEUTROPHILS # (AUTO) 3.9 X 10^3 (1.8-7.8); NEUTROPHILS % (AUTO) 72 % (42-75); PLATELET COUNT 211 10^3/uL (130-400); RED CELL DISTRIBUTION WIDTH 14.3 % (10.0-14.5); WHITE BLOOD COUNT 5.4 10^3/uL (4.3-11.0)
[2019-12-10] MEDS ORDERED: RT-ALBUTEROL/IPRATROPIUM 3 ML (DUONEB) VIAL INH ONE (22:00)
[2019-12-10 22:11] LABS: ALBUMIN 3.6 GM/DL (3.2-4.5); POTASSIUM 4.4 MMOL/L (3.6-5.0)
[2019-12-10 22:12] LABS: CALCIUM 8.7 MG/DL (8.5-10.1)
[2019-12-10 22:13] LABS: INR 1.8 (0.8-1.4); PROTHROMBIN TIME PATIENT 21.5 SEC (12.2-14.7); TOTAL PROTEIN 7.6 GM/DL (6.4-8.2)
[2019-12-10 22:15] LABS: BILIRUBIN,TOTAL 0.4 MG/DL (0.1-1.0)
[2019-12-10 22:17] LABS: CREATININE SERUM 1.53 MG/DL (0.60-1.30)
[2019-12-10] MEDS ORDERED: NS IV 1000 ML 1,000 ML IV SCH (23:00)
--- NOTE | 2019-12-10 23:55 | NUR ---
KATHY ELLIS admitted to room 433-1, with an admitting diagnosis of Pneumonia, Acute on Chronic Respiratory Distress, Congestive Heart Failure on 12/10/19 from ED via cart, accompanied by staff.KATHY ELLIS introduced to surroundings, call light, bed controls, phone, TV, temperature control, lights, meal times, smoking policy, visitor policy, side rail policy, bathrooms and showers. Patient Rights given to patient in the handbook. KATHY ELLIS verbalizes understanding that [facility] is not responsible for the loss or damage to any personal effects or valuables that are kept in the patients posession during their hospitalization. KATHY ELLIS verbalizes understanding of Interdisciplinary Patient Education. Patient and/or family were informed about the Rapid Response Team and its purpose.
[2019-12-11] VITALS (7 sets, daily range): BP systolic 102–127; BP diastolic 53–62
[2019-12-11] MEDS ORDERED: ENOXAPARIN 60 MG/0.6 ML (LOVENOX) SYR SC SCH ×2 (00:45→16:00)
[2019-12-11 01:37] LABS: BILIRUBIN,URINE NEGATIVE (NEGATIVE); COLOR,URINE YELLOW; GLUCOSE, URINE (UA) NEGATIVE (NEGATIVE); KETONES,URINE NEGATIVE (NEGATIVE); LEUKOCYTE ESTERASE ,URINE NEGATIVE (NEGATIVE); NITRITE,URINE NEGATIVE (NEGATIVE); PH,URINE 5.5 (5-9); PROTEIN,URINE NEGATIVE (NEGATIVE)
[2019-12-11 01:47] LABS: BACTERIA,URINE TRACE /HPF; CLARITY,URINE CLEAR; HYALINE CASTS, URINE RARE /LPF; RBC,URINE RARE /HPF; SQUAMOUS EPITHELIAL CELL,UR RARE /HPF
[2019-12-11] MEDS ORDERED: IPRATROPIUM INHALER (ATROVENT) 12.9 GM INH SCH ×2 (02:00→06:00)
[2019-12-11] MEDS ORDERED: RT-ALBUTEROL HFA (PROAIR HFA) 8.5 GM IH SCH ×2 (02:00)
[2019-12-11] MEDS: CEFEPIME INJECTION 1,000 MG in WATER (STERILE) FOR INJECTION 10 ML IV SCH ×2 (03:14→14:45)
--- NOTE | 2019-12-11 04:35 | NUR ---
pt daughter called to verify time for when pt last dose of lovenox was given at home. Daughter states pt receives lovenox daily at home around 1600, and that the last dose was given 12-10-2019 around 1600. this nurse called e-pharmacy to re-time lovenox.
[2019-12-11] MEDS: LEVOTHYROXINE 100 MCG (LEVOTHROID) TAB PO SCH (05:36)
[2019-12-11 06:04] LABS: BASOPHILS % (AUTO) 1 % (0-10); EOSINOPHILS # (AUTO) 0.3 10^3/uL (0.0-0.3); EOSINOPHILS % (AUTO) 6 % (0-10); HEMATOCRIT 29 % (35-52); HEMOGLOBIN 8.9 G/DL (11.5-16.0); LYMPHOCYTES # (AUTO) 0.7 X 10^3 (1.0-4.0); LYMPHOCYTES % (AUTO) 13 % (12-44); MEAN CORPUSCULAR HEMOGLOBIN 32 PG (25-34); MEAN CORPUSCULAR HGB CONC 30 G/DL (32-36); MEAN CORPUSCULAR VOLUME 104 FL (80-99); MEAN PLATELET VOLUME 10.2 FL (7.4-10.4); MONOCYTES # (AUTO) 0.5 X 10^3 (0.0-1.0); MONOCYTES % (AUTO) 9 % (0-12); NEUTROPHILS # (AUTO) 3.6 X 10^3 (1.8-7.8); NEUTROPHILS % (AUTO) 71 % (42-75); PLATELET COUNT 202 10^3/uL (130-400); RED CELL DISTRIBUTION WIDTH 14.5 % (10.0-14.5); WHITE BLOOD COUNT 5.1 10^3/uL (4.3-11.0)
[2019-12-11 06:16] LABS: ALBUMIN 3.5 GM/DL (3.2-4.5); POTASSIUM 4.1 MMOL/L (3.6-5.0)
[2019-12-11 06:17] LABS: CALCIUM 8.5 MG/DL (8.5-10.1)
[2019-12-11 06:19] LABS: TOTAL PROTEIN 7.4 GM/DL (6.4-8.2)
[2019-12-11 06:20] LABS: BILIRUBIN,TOTAL 0.5 MG/DL (0.1-1.0)
[2019-12-11 06:22] LABS: CREATININE SERUM 1.37 MG/DL (0.60-1.30)
[2019-12-11] MEDS ORDERED: ISOSORBIDE MONONITRATE 30 MG (IMDUR) TAB PO SCH (06:30)
--- NOTE | 2019-12-11 07:09 | Diagnostic Imaging Report ---
INDICATION: Lower respiratory infection EXAMINATION: Portable chest 2:54 AM There are postoperative changes from a median sternotomy. There is a dual-chamber pacemaker. There is cardiomegaly with vascular congestion. There is increased alveolar opacification in both lungs. There are probable small effusions. IMPRESSION: Congestive heart failure with pulmonary edema and pleural effusions. No appreciable change from previous day. Dictated by: Dictated on workstation # [id number]
--- NOTE | 2019-12-11 08:02 | Consultation-Cardiology ---
HPI-Cardiology Cardiology Consultation: Date of Consultation 12/11/19 Time Seen by a Provider: 15:00 Date of Admission 12-10-2019 Attending Physician Adama Miranda MD Admitting Physician Jake Prabhakar DO Consulting Physician Mamta Moore MD Primary Paralegal: Dr. Parker HPI: Chief Complaint: CHF Ms. Ellis is an 84 year old female who has been admitted d/t increasing SOB. She was previously admitted a couple weeks ago d/t pneumonia, treated and discharged. Over the last couple days her SOB began to worsen again. She denies any c/o CP, palpitations, syncope or near syncope. She does reports increased bilat LE swelling. She states she has an ulcer on her right leg which is being managed by wound care. She reports productive cough of white phlegm. She denies any fever at this time. She does report feeling cold. Review of Systems-Cardiology Review of Systems Constitutional: chills; No fever; malaise Eyes: No vision change Ears/Nose/Throat: No epistaxis, No recent hearing loss Respiratory: As described under HPI Cardiovascular: As described under HPI Gastrointestinal: No diarrhea, No nausea, No vomiting Genitourinary: No dysuria, No hematuria Musculoskeletal: no symptoms reported Skin: As described under HPI Psychiatric/Neurological: No anxiety, No depression, No seizure, No focal weakness, No syncope Hematologic: No bleeding abnormalities All Other Systems Reviewed Negative Unless Noted: Yes CNE-Jobtgy-Thnybw Hx Patient Social History Alcohol Use: Denies Use Recreational Drug Use: No Smoking Status: Never a Smoker 2nd Hand Smoke Exposure: No Recent Foreign Travel: No Recent Infectious Disease Expo: No Hospitalization with Isolation: Denies Immunizations Up To Date Tetanus Booster (TDap): More than 5yrs Date of Pneumonia Vaccine: Jun 30, 2019 Date of Influenza Vaccine: Jun 03, 2019 Past Medical History PMH As described under Assessment. Family Medical History Family Medical History: She has a reported family h/o her mother having CAD and DM. Family History: 19 FATHER History of - respiratory disease (PNEUMONIA- IN HIS 20'S) 19 MOTHER Family history: Diabetes mellitus Heart disease Myocardial infarction Allergies and Home Medications Allergies Coded Allergies: NKANo Known Allergies (Verified Allergy, Unknown, 11/14/05) Home Medications Albuterol Sulfate 2.5 Mg/3 Ml Vial.neb, 3 ML NEB Q6H PRN for SHORTNESS OF BREATH, (Reported) Amoxicillin/Potassium Clav 1 Each Tablet, 1 EA PO BID, (Reported) FILLED 12-08-2019 #10/5 DAY SUPPLY (THIS WAS A CONTINUATION OF A PREVIOUS RX) ALSO FILLED 11-29-2019 #14/7 DAY SUPPLY Digoxin 125 Mcg Tablet, 125 MCG PO Q48H, (Reported) Enoxaparin Sodium 60 Mg/0.6 Ml Syringe, 60 MG SQ 1530, (Reported) FILL ON 11-29-2019 FOR A 14 DAY THERAPY Furosemide 40 Mg Tablet, 40 MG PO BID, (Reported) Furosemide 40 Mg Tablet, 40 MG PO DAILY PRN for SWELLING, (Reported) TAKES TWICE DAILY- MAY TAKE 1 EXTRA TAB IF NEEDED FOR SWELLING Guaifenesin 600 Mg Tab.er.12h, 600 MG PO Q12H PRN for CONGESTION, (Reported) Isosorbide Mononitrate 30 Mg Tab.er.24h, 15 MG PO DAILY, (Reported) TAKES 1/2 (30MG) TABLET Levothyroxine Sodium 100 Mcg Tablet, 100 MCG PO DAILY, (Reported) Loratadine 10 Mg Tablet, 10 MG PO DAILY, (Reported) Lorazepam 0.5 Mg Tablet, 0.5 MG PO HS PRN for INSOMNIA, (Reported) Metolazone 2.5 Mg Tablet, 2.5 MG PO PRN, (Reported) TAKES ON MON AND FRI AND NEEDED AND DIRECTED Metolazone 2.5 Mg Tablet, 2.5 MG PO MON,FRI, (Reported) TAKES ON MON AND FRI AND NEEDED AND DIRECTED Metoprolol Succinate 25 Mg Tab.er.24h, 25 MG PO DAILY PRN for BLOOD PRESSURE, (Reported) GIVE IF BLOOD PRESSURE IS OVER 100 Mexiletine HCl 150 Mg Cap, 150 MG PO Q12H, (Reported) Nitroglycerin 0.4 Mg Tab.subl, 0.4 MG SL UD PRN for CHEST PAIN, (Reported) Potassium Chloride 10 Meq Capsule.er, 10 MEQ PO BID, (Reported) Ropinirole HCl 0.5 Mg Tablet, 0.5 MG PO DAILY, (Reported) Ropinirole HCl 0.5 Mg Tablet, 1 MG PO HS, (Reported) TAKES 2 (0.5MG) TABS TO EQUAL 1MG AT BEDTIME (ALSO TAKE 0.5MG DAILY) Sacubitril/Valsartan 1 Each Tablet, 1 TAB PO BID, (Reported) Tramadol HCl 50 Mg Tablet, 50 MG PO Q6H PRN for PAIN-MODERATE (5-7), (Reported) Warfarin Sodium 2 Mg Tablet, 4 MG PO DAILY, (Reported) STARTING 12-08-2019 HAD THE PT TAKE 2 (2MG) TABLETS TO EQUAL 4MG DAILY FOR 3 DAYS AND THEN PT WAS GETTING INR RECHECKED. Patient Home Medication List Home Medication List Reviewed: Yes Physical Exam-Cardiology Physical Exam Vital Signs/I&O 12/15/19 12/15/19 12/15/19 12/15/19 06:35 07:02 08:00 08:00 Temp 36.5 Pulse 85 89 Resp 18 B/P (MAP) 134/69 (90) Pulse Ox 95 96 O2 Delivery Vapotherm Vapotherm Vapotherm O2 Flow Rate 30.00 10.00 20.00 45.00 FiO2 45 45 12/15/19 12/15/19 12/15/19 12/15/19 10:27 12:00 13:00 14:05 Temp 36.5 36.5 Pulse 68 85 85 Resp 18 B/P (MAP) 92/58 (69) Pulse Ox 81 100 97 O2 Delivery Vapotherm High Flow N/C O2 Flow Rate 10.00 10.00 FiO2 45 12/15/19 12/15/19 12/15/19 14:30 14:56 16:09 Temp 36.6 Pulse 86 80 Resp 18 B/P (MAP) 108/69 (82) 110/63 (79) Pulse Ox 100 100 O2 Delivery High Flow N/C High Flow N/C O2 Flow Rate 10.00 7.00 12/15/19 00:00 Intake Total 1736 ml Output Total 775 ml Balance 961 ml Capillary Refill : Less Than 3 Seconds HEENT: PERRL, other (poor dentition) Respiratory: No accessory muscle use, No respiratory distress; chest expansion is symmetric, chest is bilaterally symmetric, other (diminished lower lobes bilat; dyspneic with converstation) Cardiovascular: regular rate-rhythm; No JVD; S1 and S2, systolic murmur (grade 4/5 ), click (crisp mechanical S2) Gastrointestinal: No tender; soft, round, audible bowel sounds Extremities: other (mild bilat LE swelling), wound (dressing in place to RLE, D&I - not removed; fragile integrity) Neurologic/Psychiatric: grossly intact (moves all extremities) Skin: normal color, warm/dry, other (see above under extremities) Data Review Labs Laboratory Tests 12/15/19 05:00: White Blood Count 6.2, Red Blood Count 2.68L, Hemoglobin 8.4L, Hematocrit 28L, Mean Corpuscular Volume 105H, Mean Corpuscular Hemoglobin 31, Mean Corpuscular Hemoglobin Concent 30L, Red Cell Distribution Width 14.1, Platelet Count 179, Mean Platelet Volume 10.1, Prothrombin Time 28.7H, INR Comment 2.6H, Sodium Level 135, Potassium Level 5.0, Chloride Level 98, Carbon Dioxide Level 26, Anion Gap 11, Blood Urea Nitrogen 79H, Creatinine 1.60H, Estimat Glomerular Filtration Rate 31, BUN/Creatinine Ratio 49, Glucose Level 140H, Calcium Level 8.7, Procalcitonin 0.06 Microbiology 12/10/19 Influenza Types A,B Antigen (IRINEO) - Final, Complete 12/10/19 Blood Culture - Preliminary, Resulted No growth 12/10/19 Urine Culture - Final, Complete NO GROWTH Radiology NAME: KATHY ELLIS [facility] REC#: [id number] PT STATUS: ADM IN : 1935 PHYSICIAN: ADAMA MIRANDA MD ADMIT DATE: 12/10/19 Signed Date of Exam:12/11/19 CHEST 1 VIEW, AP/PA ONLY INDICATION: Lower respiratory infection EXAMINATION: Portable chest 2:54 AM There are postoperative changes from a median sternotomy. There is a dual-chamber pacemaker. There is cardiomegaly with vascular congestion. There is increased alveolar opacification in both lungs. There are probable small effusions. IMPRESSION: Congestive heart failure with pulmonary edema and pleural effusions. No appreciable change from previous day. Dictated by: Dictated on workstation # [id number] Dict: 12/11/19702 Trans: 12/11/19729 [facility] [id number] Interpreted by: GWEN LAUGHLIN MD Electronically signed by: GWEN LAUGHLIN MD 12/11/19729 A/P-Cardiology Assessment/Admission Diagnosis Multi-factorial dyspnea for reasons noted below Acute on chronic systolic CHF Pneumonia - management per medical services Severe mitral valve stenosis rheumatic valve, severe mitral regurgitation with severe pulmonary hypertension, estimated pulmonary artery pressure of 65-70 mmHg with severely dilated both atrium and prominent right ventricle with dilated IVC. Dr. Parker has discussed with Dr. Page, he recommended medical therapy at this time considering her to be high risk for morbidity and mortality if she undergoes valve surgery. She is not a candidate for mitral clip secondary to her mitral stenosis Was referred once again to Dr. Davila in January 2019 for evaluation for possible TMVR. Decided to continue with conservative management at this time. patient and family have declined to go to [place] for further evaluation History of aortic valve replacement in 1998 with metallic valve on Coumadin therapy with therapeutic INR, monitored by Dr. Prabhakar. Last echo done August 2019 revealing EF 35-40%, reduced RV systolic function. Ventricular septum contour shows diastolic flattening and systolic flattening, LA dilated measuring 8.3cm, RA dilated. MV has calcified annulus and severe stenosis, mod to severe MR, mechanical prosthetic AV present, severe TR, PA 65-70mmHg Permanent atrial fibrillation, had underlying sick sinus syndrome and pacemaker, last interrogation was done on November 25, 2019 showing device has reached CHERRY - plan for pulse generator change out is as per Dr. Parker [id number] Score of 6, yearly risk of stroke without oral anticoagulation is 9.8 percent, maintained on Coumadin, managed as out pt by Dr. Prabhakar Peripheral vascular disease, patient has venous insufficiency on the right side that required ablation, peripheral angiogram May 2017, intervention to the anterior tibial artery, the wound has healed then developed a new ulcer after a trauma. Did balloon angioplasty to the right anterior tibial artery proximal portion has significant improvement the distal portion is occluded and did not improve, the posterior tibial artery and peroneal arteries were occluded with no collaterals in that area. The right SFA has multiple segment of moderate to severe stenosis, balloon angioplasty to the mid SFA with good results. Abdominal aorta has moderate disease, the left SFA has mild to moderate disease down to the trifurcation. Patient has nonhealing wounds to right ankle, underwent peripheral angiogram with Dr. Arias on July 08, 2019 with right SFA and anterior tibial artery angioplasty with good results. Patient reports one to anterior iraheta is healing, however continues to have worsening once the right ankle, appear venous in nature. referred back to Dr. Fernandez for venous insufficiency, in addition I will consider repeating angiogram. Her LINDA is abnormal, we discussed the possibility of peripheral angiogram if the ulcer persisted. Patient reports wounds are slightly healing and deciding against appt with Dr. Fernandez or angiogram at this time. 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 Parker showed EF 35-40%, reduced RV systolic function. Ventricular septum coutour shows diastolic flattening and systolic flattening, LA dilated measuring 8.3cm, RA dilated. MV has calcified annulus and severe stenosis, mod to severe MR, mechanical prosthetic AV present, severe TR, PA 65- 70mmHg Coronary artery disease, small vessel disease, nonobstructive disease, the prosthetic valve was functioning normally. Pulmonary artery pressure was 50/26, pulmonary capillary wedge pressure 35, right ventricular pressure 53/17. cardiac catheterization was done in September 2014. Stress test done in December 2016 showing no ischemia or infarction, EF 41 percent, continue to monitor Carotid stenosis, continue to monitor, followed by heart and vascular care. 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 followed and monitored by heart and vascular care. Renal insufficiency-continue to monitor renal function. Hypertension - currently somewhat low BP Anemia of undetermined etiology - management per medical services Hyperlipidemia Right hip fracture in May 2018 status post surgical repair, recovered well. Discussion and Recomendations Complex management issue for multiple reasons as noted above Acute on chronic systolic CHF - treat with diuretics Dilated cardiomyopathy - continue Entresto Somewhat low BP - will stop Imdur to allow more BP room for Entresto and BB tx Sub-therapeutic INR - bridge with Lovenox - monitor closely d/t antibiotic tx Valvular disease with previous AoVR with mechanical prosthesis - continue anticoagulation tx - stop Lovenox when INR 2.0 or greater Severe mitral valve disease for which she has already had eval for replacement and had been deemed a poor surgical candidate - continue to treat conservatively per pt wishes Replace electrolytes as indicated Monitor lab closely We have spoken with Dr. Walker of the Hospitalist services - we would like to thank her for this consult Monitor on tele Clinical Quality Measures DVT/VTE Risk/Contraindication: Risk Factor Score Per Nursin RFS Level Per Nursing on Admit: 4+=Very High [facility] Dec 11, 2019 08:02
--- NOTE | 2019-12-11 08:20 | Diagnostic Imaging Report ---
EXAMINATION: Portable erect AP chest at 957h. INDICATION: Shortness of breath The cardiomegaly, the sternotomy wires and surgical clips and the left-sided pacemaker seen on the prior exam of 12/08/2019 are again evident and not significantly changed. As on the previous study there is pulmonary congestion as well as atelectasis/infiltrate and fluid in both lung bases. The amount of fluid in the right lung base has increased slightly since the prior exam. The overall appearance of the chest is otherwise stable. IMPRESSION: Aside from a slight increase in amount of fluid in the right lung base there has been no significant change since the prior exam. There is no new abnormality identified. Dictated by: Dictated on workstation # [id number]
[2019-12-11] MEDS: DIGOXIN 0.125 MG (LANOXIN) TAB PO SCH (08:22)
[2019-12-11] MEDS: SACUBITRIL/VALSARTAN 24/26 MG (ENTRESTO) TABLET PO SCH ×2 (08:22→20:16)
[2019-12-11] MEDS: ALBUTEROL/IPRATROP (COMBIVENT RESPIMAT) 4 GM INHALER IH SCH ×4 (09:18→22:22)
[2019-12-11] MEDS ORDERED: FUROSEMIDE 40 MG/4 ML INJ (LASIX) IVP NR (09:30)
--- NOTE | 2019-12-11 09:47 | NUR ---
SPOKE WITH PATIENT'S DAUGHTERS TO GIVE THEM UPDATE. ANSWERED ALL QUESTIONS. TOLD THEM TO PLEASE CALL BACK WITH ANY MORE.
[2019-12-11] MEDS ORDERED: AMOX1TAB12 PO (10:18)
[2019-12-11] MEDS ORDERED: ENOX60DI7 SQ (10:18)
[2019-12-11] MEDS ORDERED: ROPI0.5T4 PO (10:18)
--- NOTE | 2019-12-11 10:54 | NUR ---
SPOKE WITH THE PATIENTS DAUGHTER ARABELLA (SHE TAKES CARE OF THE PATIENTS MEDS) I ALSO HAD A MED LIST FROM THE LAST HOSPITAL STAY, AND WENT THRU THE EXT MED HISTORY TO COMPLETE THE MED REC. WHEN I SPOKE WITH ARABELLA SHE SAID MOST THINGS WERE THE SAME AND NO CHANGES HAD BEEN MADE- THE ONLY DIFFERENCE IS LOVENOX 60MG/0.6ML AND AUGMENTIN 875/125 HAD BEEN ADDED. HER WARFARIN HAD ALSO CHANGED- HER WARFARIN DOSE HAD BEEN CHANGING RECENTLY DUE TO BEING ON ANTIBIOTICS AND THEN HER RECENT HOSPITAL STAY. HER REGULAR REGIMEN HAD BEEN 2MG DAILY. WHEN SHE STARTED ON LEVAQUIN 11-26-2019 SHE WAS TOLD TO TAKE TAB (1MG) UNTIL THE END OF THE THERAPY. ON 12-08-2019 HER PCP (KARELY) HAD AN INR DRAWN AND HAD HER INCREASE HER WARFARIN TO 2 TABS (2MG TABS TO EQUAL 4MG) DAILY FOR 3 DAYS. THIS BRING HER TO 12-10-2019 AND THEN SHE WAS ADMITTED (SHE WAS SCHEDULED TO HAVE HER INR RECHECKED ON 12-11-2019) THE PT IS STILL TAKING LOVENOX DAILY. Addendum: 12/11/19 at 1120 by RAN SANCHEZ [facility] DIGOXIN 0.125MG- THE DIRECTIONS ARE 1 TAB DAILY HOWEVER THE PT IS ONLY TAKE 1 TAB Q 48H.
[2019-12-11] MEDS ORDERED: rOPINIRole 0.25 MG (REQUIP) TAB ONE (11:05)
--- NOTE | 2019-12-11 11:30 | History & Physical-Hospitalist ---
History of Present Illness HPI/Chief Complaint Pt is an 84yoCF with a PMH of CHF, CAD, PAD, aortic valve replacement who presented to the emergency department due to extreme shortness of breath. She states that she did well after getting discharged 2 weeks ago but over the past week got more short of breath. She was seen in the ER and started on antibiotics two days ago and discharged home. She continued those but then yesterday afternoon got very short of breath. EMS was called. She arrived in moderate respiratory distress and was given a breathing treatment which helped her symptoms. She was found to have pneumonia and admitted for IV abx after failing outpatient treatment. She is pending COVID testing as well. Source: patient Date Seen 12/11/19 Time Seen by a Provider: 11:30 Attending Physician Kendall Miranda MD PCP Jake Prabhakar DO Referring Physician Date of Admission Dec 10, 2019 at 22:45 Home Medications & Allergies Home Medications Reviewed patient Home Medication Reconciliation performed by pharmacy medication reconciliations broadcast operations technician and/or nursing. Patients Allergies have been reviewed. Allergies Allergies Coded Allergies NKANo Known Allergies (Verified Allergy, Unknown, 11/14/05) Past Uwkphvc-Eutniv-Qqaugm Hx Past Med/Social Hx: Reviewed Nursing Past Med/Soc Hx Patient Social History Alcohol Use: Denies Use Recreational Drug Use: No Smoking Status: Never a Smoker 2nd Hand Smoke Exposure: No Recent Foreign Travel: No Contact w/other who traveled: No Recent Hopitalizations: No Recent Infectious Disease Expo: No Immunizations Up To Date Tetanus Booster (TDap): More than 5yrs Pediatric: Yes Date of Pneumonia Vaccine: Jun 30, 2019 Date of Influenza Vaccine: Jun 03, 2019 Seasonal Allergies Seasonal Allergies: No Past Medical History Surgeries: Cardiac, Section, Gallbladder, Orthopedic, Valve Replacement Currently Using CPAP: No Currently Using BIPAP: No Cardiac: Cardiomyopathy, Coronary Artery Disease, Hypertension, Valvular Heart Disease Neurological: Vertigo : No Reproductive: No Sexually Transmitted Disease: No HIV/AIDS: No Menopausal Gastrointestinal: Gall Bladder Disease Musculoskeletal: Arthritis Endocrine: Hypothyroidsim HEENT: Cataract Loss of Vision: Denies Hearing Impairment: Denies Did You Recieve Any Treatments: No History of Blood Disorders: Yes (anticoagulated) Adverse Reaction to Blood Burch: No Family History Family history: Diabetes mellitus 19 MOTHER Heart disease 19 MOTHER History of - respiratory disease 19 FATHER (PNEUMONIA- IN HIS 20'S) Myocardial infarction 19 MOTHER No Family History of: Abdominal aortic aneurysm Cayuta's disease Alcoholism Aphasia Cancer Cancer of colon Cataract Chest pain Congenital heart disease Congestive heart failure Cystic fibrosis Dementia Dysphagia Family history: Allergy Family history: Alzheimer's disease Family history: Arthritis Family history: Asthma Family history: Breast disease Family history: Cardiovascular disease Family history: Coronary thrombosis Family history: Gastrointestinal disease Family history: Glaucoma Family history: Hypertension Family history: Osteoporosis Family history: Thyroid disorder Headache Hearing loss Hereditary disease History of - anemia History of - disorder History of drug abuse Human immunodeficiency virus (HIV) seropositivity Hypercholesterolemia Infertile Kidney disease Parkinson's disease Prostate cancer Psychotic disorder Seizure disorder Stroke Tuberculosis Visual impairment No Pertinent Family Hx Review of Systems Constitutional: fever, weakness EENTM: no symptoms reported Respiratory: cough, dyspnea on exertion, short of breath Cardiovascular: No chest pain; edema; No palpitations Gastrointestinal: no symptoms reported Genitourinary: no symptoms reported Musculoskeletal: no symptoms reported Skin: no symptoms reported Psychiatric/Neurological: No Symptoms Reported Physical Exam Physical Exam Vital Signs Vital Signs - First Documented 12/10/19 21:30 Temp 36.9 Pulse 86 Resp 26 B/P (MAP) 122/61 (81) Pulse Ox 99 O2 Delivery Non Rebreather O2 Flow Rate 15.00 Capillary Refill : Less Than 3 SecondsLess Than 3 Seconds Height, Weight, BMI Height: 5'6.00" Weight: 138lbs. 6.0oz. 62.035385eh; 21.51 BMI Method:Estimated General Appearance: Cachetic, Other (increased work of breathing) HEENT: Moist Mucous Membranes; No Scleral Icterus (L), No Scleral Icterus (R) Respiratory: Accessory Muscle Use, Decreased Breath Sounds; No Wheezing Cardiovascular: Regular Rate, Rhythm, Systolic Murmur Gastrointestinal: Normal Bowel Sounds, Non Tender, Soft Extremity: Non Tender, Pedal Edema, Swelling Neurologic/Psychiatric: Alert, Oriented x3, Normal Mood/Affect Results Results/Procedures Labs Laboratory Tests 12/10/19 21:43 12/11/19 05:30 12/12/19 05:30 Patient resulted labs reviewed. Imaging: Reviewed Imaging Report Imaging Date of Exam:12/11/19 CHEST 1 VIEW, AP/PA ONLY INDICATION: Lower respiratory infection EXAMINATION: Portable chest 2:54 AM There are postoperative changes from a median sternotomy. There is a dual-chamber pacemaker. There is cardiomegaly with vascular congestion. There is increased alveolar opacification in both lungs. There are probable small effusions. IMPRESSION: Congestive heart failure with pulmonary edema and pleural effusions. No appreciable change from previous day. Assessment/Plan Admission Diagnosis Sepsis from Pneumonia Admission Status: Inpatient Order (span 2 midnights) Reason for Inpatient Admission: IV abx, failed outpatient Assessment and Plan Sepsis from Pneumonia Acute on Chronic Respiratory Failure Failed outpatient management Will continue on Vanc and Cefepime given recent admission Await cultures Titrate sats to keep greater than 90 COVID testing pending CHF CAD Aortic Valve Replacement Mitral Valve stenosis pAF Continue Lasix INR subtherapeutic Continue with Lovenox bridging as INR is 1.8 Cardiology consulted, discussed with Dr Moore today Dig level low again CKD At baseline Trend with diuresis Hypothyroidism Continue home meds Restless leg syndrome Resume Requip Discussed goals of care with patient and with family (daughter Lisa). Patient states she wants everything done that is "within reason" and will not agree to a DNR at this time. I have discussed with her multiple times about outcomes following a Code blue should she suffer from a cardiac arrest to which she expresses understanding. Discussed with daughter who understands the gravity of her chronic illnesses but is hopeful that she can improve this time again. Clinical Quality Measures DVT/VTE Risk/Contraindication: Risk Factor Score Per Nursin RFS Level Per Nursing on Admit: 4+=Very High VENANCIO ARREAGA MD Dec 11, 2019 11:30
--- NOTE | 2019-12-11 11:34 | NUR ---
CM/SS is following with the patient. The patient is being tested for Covid-19 due to this SS will wait for results to visit. Will continue following patient to assist with any needs.
[2019-12-11] MEDS ORDERED: morphine (ROXINOL) 10 MG/0.5 ML oral conc 0.5 ML PO PRN (14:15)
[2019-12-11] MEDS ORDERED: KCL 20 MEQ TAB (K-DUR) PO NR (16:00)
--- NOTE | 2019-12-11 16:23 | Consultation-Cardiology ---
HPI-Cardiology Cardiology Consultation: Date of Consultation 12/11/19 Time Seen by a Provider: 16:00 Date of Admission Attending Physician Kendall Miranda MD Admitting Physician Jake Prabhakar DO Consulting Physician KIKE VILLAGRAN MD, MA, FACP, FACC, FSCAI, CCDS Primary flight operations dispatch clerk: Dr Parker HPI: Chief Complaint: CC: Shortness of breath HPI Ms. Mcfarland is an 84 year old female who has been admitted d/t increasing SOB. She was previously admitted a couple weeks ago d/t pneumonia, treated and discharged. Over the last couple days her SOB began to worsen again. She denies any c/o CP, palpitations, syncope or near syncope. She does reports increased bilat LE swelling. She states she has an ulcer on her right leg which is being managed by wound care. She reports productive cough of white phlegm. She denies any fever at this time. She does report feeling cold. Review of Systems-Cardiology Review of Systems Constitutional: chills; No fever; malaise Eyes: No vision change Ears/Nose/Throat: No epistaxis, No recent hearing loss Respiratory: As described under HPI Cardiovascular: As described under HPI Gastrointestinal: No diarrhea, No nausea, No vomiting Genitourinary: No dysuria, No hematuria Musculoskeletal: no symptoms reported Skin: As described under HPI Psychiatric/Neurological: No anxiety, No depression, No seizure, No focal weakness, No syncope Hematologic: No bleeding abnormalities All Other Systems Reviewed Negative Unless Noted: Yes [id number] Hx Patient Social History Alcohol Use: Denies Use Recreational Drug Use: No Smoking Status: Never a Smoker 2nd Hand Smoke Exposure: No Recent Foreign Travel: No Recent Infectious Disease Expo: No Hospitalization with Isolation: Denies Immunizations Up To Date Tetanus Booster (TDap): More than 5yrs Date of Pneumonia Vaccine: Jun 30, 2019 Date of Influenza Vaccine: Jun 03, 2019 Past Medical History PMH As described under Assessment. Family Medical History Family Medical History: She has a reported family h/o her mother having CAD and DM. Family History: Family history: Diabetes mellitus 19 MOTHER Heart disease 19 MOTHER History of - respiratory disease 19 FATHER (PNEUMONIA- IN HIS 20'S) Myocardial infarction 19 MOTHER No Family History of: Abdominal aortic aneurysm Maynor's disease Alcoholism Aphasia Cancer Cancer of colon Cataract Chest pain Congenital heart disease Congestive heart failure Cystic fibrosis Dementia Dysphagia Family history: Allergy Family history: Alzheimer's disease Family history: Arthritis Family history: Asthma Family history: Breast disease Family history: Cardiovascular disease Family history: Coronary thrombosis Family history: Gastrointestinal disease Family history: Glaucoma Family history: Hypertension Family history: Osteoporosis Family history: Thyroid disorder Headache Hearing loss Hereditary disease History of - anemia History of - disorder History of drug abuse Human immunodeficiency virus (HIV) seropositivity Hypercholesterolemia Infertile Kidney disease Parkinson's disease Prostate cancer Psychotic disorder Seizure disorder Stroke Tuberculosis Visual impairment Allergies and Home Medications Allergies Coded Allergies: NKANo Known Allergies (Verified Allergy, Unknown, 11/14/05) Home Medications Albuterol Sulfate 2.5 Mg/3 Ml Vial.neb, 3 ML NEB Q6H PRN for SHORTNESS OF BREAT H, (Reported) Amoxicillin/Potassium Clav 1 Each Tablet, 1 EA PO BID, (Reported) FILLED 12-08-2019 #10/5 DAY SUPPLY (THIS WAS A CONTINUATION OF A PREVIOUS RX) ALSO FILLED 11-29-2019 #14/7 DAY SUPPLY Digoxin 125 Mcg Tablet, 125 MCG PO Q48H, (Reported) Enoxaparin Sodium 60 Mg/0.6 Ml Syringe, 60 MG SQ 1530, (Reported) FILL ON 11-29-2019 FOR A 14 DAY THERAPY Furosemide 40 Mg Tablet, 40 MG PO BID, (Reported) Furosemide 40 Mg Tablet, 40 MG PO DAILY PRN for SWELLING, (Reported) TAKES TWICE DAILY- MAY TAKE 1 EXTRA TAB IF NEEDED FOR SWELLING Guaifenesin 600 Mg Tab.er.12h, 600 MG PO Q12H PRN for CONGESTION, (Reported) Isosorbide Mononitrate 30 Mg Tab.er.24h, 15 MG PO DAILY, (Reported) TAKES 1/2 (30MG) TABLET Levothyroxine Sodium 100 Mcg Tablet, 100 MCG PO DAILY, (Reported) Loratadine 10 Mg Tablet, 10 MG PO DAILY, (Reported) Lorazepam 0.5 Mg Tablet, 0.5 MG PO HS PRN for INSOMNIA, (Reported) Metolazone 2.5 Mg Tablet, 2.5 MG PO PRN, (Reported) TAKES ON MON AND FRI AND NEEDED AND DIRECTED Metolazone 2.5 Mg Tablet, 2.5 MG PO MON,FRI, (Reported) TAKES ON MON AND FRI AND NEEDED AND DIRECTED Metoprolol Succinate 25 Mg Tab.er.24h, 25 MG PO DAILY PRN for BLOOD PRESSURE, (Reported) GIVE IF BLOOD PRESSURE IS OVER 100 Mexiletine HCl 150 Mg Cap, 150 MG PO Q12H, (Reported) Nitroglycerin 0.4 Mg Tab.subl, 0.4 MG SL UD PRN for CHEST PAIN, (Reported) Potassium Chloride 10 Meq Capsule.er, 10 MEQ PO BID, (Reported) Ropinirole HCl 0.5 Mg Tablet, 0.5 MG PO DAILY, (Reported) Ropinirole HCl 0.5 Mg Tablet, 1 MG PO HS, (Reported) TAKES 2 (0.5MG) TABS TO EQUAL 1MG AT BEDTIME (ALSO TAKE 0.5MG DAILY) Sacubitril/Valsartan 1 Each Tablet, 1 TAB PO BID, (Reported) Tramadol HCl 50 Mg Tablet, 50 MG PO Q6H PRN for PAIN-MODERATE (5-7), (Reported) Warfarin Sodium 2 Mg Tablet, 4 MG PO DAILY, (Reported) STARTING 12-08-2019 HAD THE PT TAKE 2 (2MG) TABLETS TO EQUAL 4MG DAILY FOR 3 DAYS AND THEN PT WAS GETTING INR RECHECKED. Patient Home Medication List Home Medication List Reviewed: Yes Physical Exam-Cardiology Physical Exam Vital Signs/I&O 12/11/19 12/11/19 12/11/19 12/11/19 07:00 08:00 08:17 09:28 Temp 35.1 Pulse 80 84 Resp 24 B/P (MAP) 109/56 (73) Pulse Ox 90 95 95 O2 Delivery High Flow N/C High Flow N/C High Flow N/C O2 Flow Rate 10.00 7.00 7.00 12/11/19 12/11/19 12/11/19 12/11/19 09:32 11:57 13:00 14:28 Temp 36.0 Pulse 88 84 Resp 20 B/P (MAP) 127/62 (83) Pulse Ox 90 90 O2 Delivery High Flow N/C High Flow N/C O2 Flow Rate 10.00 10.00 10.00 Capillary Refill : Less Than 3 SecondsLess Than 3 Seconds Constitutional: appears stated age, AAO x 3, other (Thin and frail) HEENT: PERRL, other (poor dentition), EOMI Neck: carotid pulses are 2 + bilaterally Respiratory: No accessory muscle use, No respiratory distress; chest expansion is symmetric, chest is bilaterally symmetric, other (diminished lower lobes bilat; dyspneic with converstation) Cardiovascular: regular rate-rhythm; No JVD; S1 and S2 (crisp, mechanical S2), systolic murmur (grade 4/5 systolic, grade 2/6 mid-diastolic), click (crisp mechanical S2) Gastrointestinal: No tender; soft, round, audible bowel sounds Extremities: other (mild bilat LE swelling), wound (dressing in place to RLE, D&I - not removed; fragile integrity) Neurologic/Psychiatric: other (frail appearing, responds appropriately, seems to be able to move all limbs equally although is generally weak) Skin: normal color, warm/dry, other (see above under extremities) Data Review Labs Laboratory Tests 12/10/19 21:43: White Blood Count 5.4, Red Blood Count 2.74L, Hemoglobin 8.7L, Hematocrit 28L, Mean Corpuscular Volume 104H, Mean Corpuscular Hemoglobin 32, Mean Corpuscular Hemoglobin Concent 31L, Red Cell Distribution Width 14.3, Platelet Count 211, Mean Platelet Volume 10.1, Neutrophils (%) (Auto) 72, Lymphocytes (%) (Auto) 12, Monocytes (%) (Auto) 10, Eosinophils (%) (Auto) 6, Basophils (%) (Auto) 1, Neutrophils # (Auto) 3.9, Lymphocytes # (Auto) 0.6L, Monocytes # (Auto) 0.5, Eosinophils # (Auto) 0.3, Basophils # (Auto) 0.0, Prothrombin Time 21.5H, INR Comment 1.8H, Activated Partial Thromboplast Time 50H, Blood Gas Puncture Site L RAD, Blood Gas Patient Temperature 36.9, Arterial Blood pH 7.41, Arterial Blood Partial Pressure CO2 52H, Arterial Blood Partial Pressure O2 243H, Arterial Blood HCO3 32H, Arterial Blood Total CO2 33.9H, Arterial Blood Oxygen Saturation 100, Arterial Blood Base Excess 7.6H, Earl Test YES-POS, Blood Gas Ventilator Setting NO, Blood Gas Inspired Oxygen 10L, Sodium Level 137, Potassium Level 4.4, Chloride Level 97L, Carbon Dioxide Level 29, Anion Gap 11, Blood Urea Nitrogen 59H, Creatinine 1.53H, Estimat Glomerular Filtration Rate 32, BUN/Creatinine Ratio 39, Glucose Level 103, Lactic Acid Level 0.65, Calcium Level 8.7, Corrected Calcium 9.0, Total Bilirubin 0.4, Aspartate Amino Transf (AST/SGOT) 17, Alanine Aminotransferase (ALT/SGPT) 12, Alkaline Phosphatase 73, Troponin I 0.033H, C-Reactive Protein High Sensitivity 1.49H, B-Type Natriuretic Peptide 647.1H, Total Protein 7.6, Albumin 3.6, Procalcitonin 0.07 12/10/19 22:02: Coronavirus (COVID-19)(PCR) Negative, Group A Streptococcus Screen NEGATIVE 12/11/19 05:30: White Blood Count 5.1, Red Blood Count 2.81L, Hemoglobin 8.9L, Hematocrit 29L, Mean Corpuscular Volume 104H, Mean Corpuscular Hemoglobin 32, Mean Corpuscular Hemoglobin Concent 30L, Red Cell Distribution Width 14.5, Platelet Count 202, Mean Platelet Volume 10.2, Neutrophils (%) (Auto) 71, Lymphocytes (%) (Auto) 13, Monocytes (%) (Auto) 9, Eosinophils (%) (Auto) 6, Basophils (%) (Auto) 1, Neutrophils # (Auto) 3.6, Lymphocytes # (Auto) 0.7L, Monocytes # (Auto) 0.5, Eosinophils # (Auto) 0.3, Basophils # (Auto) 0.0, Sodium Level 138, Potassium Level 4.1, Chloride Level 101, Carbon Dioxide Level 26, Anion Gap 11, Blood Urea Nitrogen 54H, Creatinine 1.37H, Estimat Glomerular Filtration Rate 37, BUN/Creatinine Ratio 39, Glucose Level 90, Calcium Level 8.5, Corrected Calcium 8.9, Total Bilirubin 0.5, Aspartate Amino Transf (AST/SGOT) 20, Alanine Aminotransferase (ALT/SGPT) 13, Alkaline Phosphatase 69, Total Protein 7.4, Albumin 3.5, Digoxin Level 0.45L Microbiology 12/10/19 Influenza Types A,B Antigen (IRINEO) - Final, Complete 12/10/19 Blood Culture - Preliminary, Resulted No growth 12/10/19 Urine Culture - Preliminary, Resulted NO GROWTH Laboratory Tests 12/10/19 21:43 12/11/19 05:30 A/P-Cardiology Assessment/Admission Diagnosis Multi-factorial dyspnea (see below) Acute on chronic systolic CHF Pneumonia - management per Medical Services Advanced valvular heart disease (aortic and mitral): Severe mitral valve stenosis rheumatic valve, severe mitral regurgitation with severe pulmonary hypertension, PASP 65-70 mmHg with biatrial and RV enlargement and dilated IVC. Dr. Parker has discussed with Dr. Page, he recommended medical therapy at this time considering her to be high risk for morbidity and mortality if she undergoes valve surgery. She is not a candidate for mitral clip secondary to her mitral stenosis Was referred once again to Dr. Davila in January 2019 for evaluation for possible TMVR. Decided to continue with conservative management at this time. patient and family have declined to go to [place] for further evaluation History of aortic valve replacement in 1998 with metallic valve on Coumadin therapy with therapeutic INR, monitored by Dr. Prabhakar. Echo of Aug 2019: EF 35-40%, reduced RV systolic function. Ventricular septum contour shows diastolic flattening and systolic flattening, LA dilated measuring 8.3cm, RA dilated. MV has calcified annulus and severe stenosis, mod to severe MR, mechanical prosthetic AV present, severe TR, PA 65-70mmHg Permanent atrial fibrillation. [id number] Score of 6, maintained on Coumadin, managed as outpt by Dr. Prabhakar. INR currently subtherapeutic Peripheral vascular disease: patient has venous insufficiency on the right side that required ablation; peripheral angiogram May 2017, intervention to the anterior tibial artery, the wound has healed then developed a new ulcer after a trauma. Did balloon angioplasty to the right anterior tibial artery proximal portion has significant improvement the distal portion is occluded and did not improve, the posterior tibial artery and peroneal arteries were occluded with no collaterals in that area. The right SFA has multiple segment of moderate to severe stenosis, balloon angioplasty to the mid SFA with good results. Abdominal aorta has moderate disease, the left SFA has mild to moderate disease down to the trifurcation. Patient has nonhealing wounds to right ankle, underwent peripheral angiogram with Dr. Arias on July 08, 2019 with right SFA and anterior tibial artery angioplasty with good results. Patient reports one to anterior iraheta is healing, however continues to have worsening of the right ankle one, appear venous in nature, managed by Dr Waters (wound) and Dr Parker (PAD) H/O implantation of MATERIAL FLOW ENGINEER-D-D in August 2012, last interrogation was done on November 25, 2019 showing device has reached CHERRY - plan for pulse generator change out is as per Dr. Parker Card cath of Sep 2014: Coronary artery disease, small vessel disease, nonobstructive disease, the prosthetic valve was functioning normally, pulmonary artery pressure was 50/26, pulmonary capillary wedge pressure 35, right ventricular pressure 53/17. Stress test done in December 2016 showing no ischemia or infarction, EF 41 percent, continue to monitor Carotid stenosis, continue to monitor, followed by [facility]. Abdominal aortic aneurysm (reportedly, 4.6 cm shanita) and PAD and carotid art disease monitor by [facility] Renal insufficiency-continue to monitor renal function. Hypertension - currently somewhat low BP Anemia of undetermined etiology - management per medical services Hyperlipidemia Right hip fracture in May 2018 status post surgical repair, recovered well. Discussion and Recomendations Very complex management due to multiple comorbidities that are outlined above Acute on chronic systolic CHF - treat with diuretics Dilated cardiomyopathy - continue Entresto Somewhat low BP - will stop Imdur to allow more BP room for Entresto and BB tx Sub-therapeutic INR - bridge with Lovenox - monitor closely d/t antibiotic tx Valvular disease with previous AoVR with mechanical prosthesis - continue anticoagulation tx - stop Lovenox when INR 2.5 or greater Severe mitral valve disease for which she has already had eval for replacement and had been deemed a poor surgical candidate - continue to treat conservatively per pt wishes Replace electrolytes as indicated Monitor lab closely We discussed her case with Dr. Walker of the Hospitalist services this am - sunil w catyld like to thank her for this consult Monitor on tele Clinical Quality Measures DVT/VTE Risk/Contraindication: Risk Factor Score Per Nursin RFS Level Per Nursing on Admit: 4+=Very High KIKE VILLAGRAN MD FACP [facility] Dec 11, 2019 16:23
--- NOTE | 2019-12-11 16:23 | NUR ---
Pt had two Instructional Systems Designer visits today, one this morning and then was anointed this afternoon.
--- NOTE | 2019-12-11 17:57 | NUR ---
SPOKE WITH PATIENTS DAUGHTER
[2019-12-11] MEDS: warFARin 5 MG (COUMADIN) TAB PO SCH (18:18)
--- NOTE | 2019-12-11 20:09 | NUR ---
DR. CARBAJAL NOTIFIED OF PT'S TEMPERATURE OF 38.5(101.1). NEW ORDERS RECEIVED FOR TYLENOL 650 PO Q6 PRN. WILL CONTINUE TO MONITOR
[2019-12-11] MEDS: FUROSEMIDE 40 MG/4 ML INJ (LASIX) IVP SCH (20:15)
[2019-12-11] MEDS: KCL 10 MEQ TAB (MICRO K) PO SCH (20:16)
[2019-12-11] MEDS: rOPINIRole 1 MG (REQUIP) TABLET PO SCH (20:16)
[2019-12-11] MEDS: ACETAMINOPHEN 325 MG TABLET PO PRN (20:54)
[2019-12-11] MEDS: VANCOMYCIN INJECTION 1,000 MG in NS (IVPB) 250 ML IV SCH (22:20)
[2019-12-12] VITALS (8 sets, daily range): BP systolic 98–111; BP diastolic 45–70
[2019-12-12] MEDS: ALBUTEROL/IPRATROP (COMBIVENT RESPIMAT) 4 GM INHALER IH SCH ×6 (02:05→22:23)
[2019-12-12] MEDS: CEFEPIME INJECTION 1,000 MG in WATER (STERILE) FOR INJECTION 10 ML IV SCH ×2 (02:15→13:35)
[2019-12-12] MEDS: LORazepam 0.5 MG (ATIVAN) TABLET PO PRN (05:27)
[2019-12-12 05:59] LABS: BASOPHILS % (AUTO) 0 % (0-10); EOSINOPHILS # (AUTO) 0.3 10^3/uL (0.0-0.3); EOSINOPHILS % (AUTO) 6 % (0-10); HEMATOCRIT 30 % (35-52); HEMOGLOBIN 8.8 G/DL (11.5-16.0); LYMPHOCYTES # (AUTO) 0.5 X 10^3 (1.0-4.0); LYMPHOCYTES % (AUTO) 11 % (12-44); MEAN CORPUSCULAR HEMOGLOBIN 32 PG (25-34); MEAN CORPUSCULAR HGB CONC 30 G/DL (32-36); MEAN CORPUSCULAR VOLUME 107 FL (80-99); MEAN PLATELET VOLUME 10.4 FL (7.4-10.4); MONOCYTES # (AUTO) 0.5 X 10^3 (0.0-1.0); MONOCYTES % (AUTO) 9 % (0-12); NEUTROPHILS # (AUTO) 3.7 X 10^3 (1.8-7.8); NEUTROPHILS % (AUTO) 74 % (42-75); PLATELET COUNT 184 10^3/uL (130-400); RED CELL DISTRIBUTION WIDTH 14.5 % (10.0-14.5)
[2019-12-12 06:13] LABS: INR 2.1 (0.8-1.4); PROTHROMBIN TIME PATIENT 24.8 SEC (12.2-14.7)
[2019-12-12] MEDS: LEVOTHYROXINE 100 MCG (LEVOTHROID) TAB PO SCH (06:25)
[2019-12-12] MEDS: KCL 10 MEQ TAB (MICRO K) PO SCH ×2 (06:25→17:01)
[2019-12-12 06:33] LABS: POTASSIUM 4.1 MMOL/L (3.6-5.0)
[2019-12-12 06:35] LABS: CALCIUM 8.8 MG/DL (8.5-10.1)
[2019-12-12 06:39] LABS: CREATININE SERUM 1.28 MG/DL (0.60-1.30)
[2019-12-12] MEDS: FUROSEMIDE 40 MG/4 ML INJ (LASIX) IVP SCH ×2 (06:54→17:04)
[2019-12-12 07:20] LABS: ANISOCYTOSIS SLIGHT; BAND NEUTROPHILS 1 %; BASOPHILS % (MANUAL) 0 %; ELLIPT/OVALOCYTES SLIGHT; EOSINOPHILS % (MANUAL) 7 %; LYMPHOCYTES % (MANUAL) 11 %; MONOCYTES % (MANUAL) 7 %; NEUTROPHILS % (MANUAL) 74 %
[2019-12-12] MEDS: DIGOXIN 0.125 MG (LANOXIN) TAB PO SCH (08:28)
[2019-12-12] MEDS: SACUBITRIL/VALSARTAN 24/26 MG (ENTRESTO) TABLET PO SCH ×2 (08:28→20:22)
[2019-12-12] MEDS: rOPINIRole 0.25 MG (REQUIP) TAB PO SCH (08:28)
[2019-12-12] MEDS ORDERED: FUROSEMIDE 40 MG/4 ML INJ (LASIX) IVP SCH (09:00)
--- NOTE | 2019-12-12 10:55 | Progress Note - Cardiology ---
Cardiology SOAP Progress Note Subjective: Still short of breath No cp or palp or syncope Gen weakness and malaise No n/v/d No focal weakness Objective: I&O/Vital Signs 12/12/19 12/12/19 12/12/19 12/12/19 00:31 01:00 04:17 07:00 Temp 37.2 37.3 Pulse 87 86 85 81 Resp 20 24 B/P (MAP) 100/45 (63) 104/59 (74) Pulse Ox 96 96 O2 Delivery High Flow N/C High Flow N/C O2 Flow Rate 9.00 8.00 12/12/19 12/12/19 12/12/19 07:24 08:00 08:00 Temp 37.0 Pulse 86 Resp 22 B/P (MAP) 111/55 (73) Pulse Ox 93 97 97 O2 Delivery Nasal Cannula High Flow N/C High Flow N/C O2 Flow Rate 8.00 8.00 8.00 12/12/19 00:00 Intake Total 1150 ml Output Total 1925 ml Balance -775 ml Weight (Pounds): 138 Weight (Ounces): 6.0 Weight (Calculated Kilograms): 62.451057 Constitutional: appears stated age, AAO x 3, other (Thin and frail) Respiratory: No accessory muscle use, No respiratory distress; chest expansion is symmetric, chest is bilaterally symmetric, other (diminished lower lobes bilat; dyspneic with converstation) Cardiovascular: regular rate-rhythm; No JVD; S1 and S2 (crisp, mechanical S2), systolic murmur (grade 4/5 systolic, grade 2/6 mid-diastolic), click (crisp mechanical S2) Gastrointestional: No tender; soft, round, audible bowel sounds Extremities: other (mild bilat LE swelling), wound (dressing in place to RLE, D&I - not removed; fragile integrity) Neurologic/Psychiatric: other (frail appearing, responds appropriately, seems to be able to move all limbs equally although is generally weak) Skin: normal color, warm/dry, other (see above under extremities) Results/Procedures: Labs Laboratory Tests 12/12/19 05:30: White Blood Count 5.0, Red Blood Count 2.77L, Hemoglobin 8.8L, Hematocrit 30L, Mean Corpuscular Volume 107H, Mean Corpuscular Hemoglobin 32, Mean Corpuscular Hemoglobin Concent 30L, Red Cell Distribution Width 14.5, Platelet Count 184, Mean Platelet Volume 10.4, Neutrophils (%) (Auto) 74, Lymphocytes (%) (Auto) 11L , Monocytes (%) (Auto) 9, Eosinophils (%) (Auto) 6, Basophils (%) (Auto) 0, Neutrophils # (Auto) 3.7, Lymphocytes # (Auto) 0.5L, Monocytes # (Auto) 0.5, Eosinophils # (Auto) 0.3, Basophils # (Auto) 0.0, Neutrophils % (Manual) 74, Lymphocytes % (Manual) 11, Monocytes % (Manual) 7, Eosinophils % (Manual) 7, Basophils % (Manual) 0, Band Neutrophils 1, Anisocytosis SLIGHT, Elliptocytes SLIGHT, Prothrombin Time 24.8H, INR Comment 2.1H, Sodium Level 140, Potassium Level 4.1, Chloride Level 101, Carbon Dioxide Level 28, Anion Gap 11, Blood Urea Nitrogen 48H, Creatinine 1.28, Estimat Glomerular Filtration Rate 40, BUN/Creatinine Ratio 38, Glucose Level 80, Calcium Level 8.8, Digoxin Level 0.65L Microbiology 12/10/19 Influenza Types A,B Antigen (IRINEO) - Final, Complete 12/10/19 Blood Culture - Preliminary, Resulted No growth 12/10/19 Urine Culture - Preliminary, Resulted NO GROWTH Laboratory Tests 12/10/19 21:43 12/11/19 05:30 12/12/19 05:30 A/P: Assessment: Multi-factorial dyspnea (see below) Acute on chronic systolic CHF Pneumonia - management per Medical Services Advanced valvular heart disease (aortic and mitral): Severe mitral valve robyn nosis rheumatic valve, severe mitral regurgitation with severe pulmonary hypertension, PASP 65-70 mmHg with biatrial and RV enlargement and dilated IVC. Dr. Parker has discussed with Dr. Page, he recommended medical therapy at this time considering her to be high risk for morbidity and mortality if she undergoes valve surgery. She is not a candidate for mitral clip secondary to her mitral stenosis Was referred once again to Dr. Davila in January 2019 for evaluation for possible TMVR. Decided to continue with conservative management at this time. patient and family have declined to go to [place] for further evaluation History of aortic valve replacement in 1998 with metallic valve on Coumadin therapy with therapeutic INR, monitored by Dr. Prabhakar. Echo of Aug 2019: EF 35-40%, reduced RV systolic function. Ventricular septum contour shows diastolic flattening and systolic flattening, LA dilated measuring 8.3cm, RA dilated. MV has calcified annulus and severe stenosis, mod to severe MR, mechanical prosthetic AV present, severe TR, PA 65-70mmHg Permanent atrial fibrillation. [id number] Score of 6, maintained on Coumadin, managed as outpt by Dr. Prabhakar Peripheral vascular disease: patient has venous insufficiency on the right side that required ablation; peripheral angiogram May 2017, intervention to the anterior tibial artery, the wound has healed then developed a new ulcer after a trauma. Did balloon angioplasty to the right anterior tibial artery proximal portion has significant improvement the distal portion is occluded and did not improve, the posterior tibial artery and peroneal arteries were occluded with no collaterals in that area. The right SFA has multiple segment of moderate to se minal stenosis, balloon angioplasty to the mid SFA with good results. Abdominal aorta has moderate disease, the left SFA has mild to moderate disease down to the trifurcation. Patient has nonhealing wounds to right ankle, underwent peripheral angiogram with Dr. Arias on July 08, 2019 with right SFA and anterior tibial artery angioplasty with good results. Patient reports one to anterior iraheta is healing, however continues to have worsening of the right ankle one, appear venous in nature, managed by Dr Waters (wound) and Dr Parker (PAD) H/O implantation of POLICE LIEUTENANT-D-D in August 2012, last interrogation was done on November 25, 2019 showing device has reached CHERRY - plan for pulse generator change out is as per Dr. Parker Card cath of Sep 2014: Coronary artery disease, small vessel disease, nonobstructive disease, the prosthetic valve was functioning normally, pulmonary artery pressure was 50/26, pulmonary capillary wedge pressure 35, right ventricular pressure 53/17. Stress test done in December 2016 showing no ischemia or infarction, EF 41 percent, continue to monitor Carotid stenosis, continue to monitor, followed by [facility]. Abdominal aortic aneurysm (reportedly, 4.6 cm shanita) and PAD and carotid art disease monitor by [facility] Renal insufficiency-continue to monitor renal function. Hypertension - currently somewhat low BP Anemia of undetermined etiology - management per medical services Hyperlipidemia Right hip fracture in May 2018 status post surgical repair, recovered well. Plan: * Complex management due to multiple CV comorbidities * INR now therapeutic and rising. D/c enoxaparin. Continue warfarin and continue to monitor * Continue diuretics * Monitor labs * telephone information supervisor prognosis does not appear good * Discussed case again with KIKE Singh MD FACP FAC CCDS Dec 12, 2019 10:55
[2019-12-12] MEDS: ONDANSETRON 4 MG/2 ML (SDV) Z0FRAN IVP PRN (11:34)
--- NOTE | 2019-12-12 11:49 | NUR ---
CM/SS follow up. CM/SS asked the patient how she was doing today, she stated "maybe a little better". She appeared to be very tired today. The patient was not very talkative with this SS due to closing eyes and falling asleep. CM/SS informed her that this ss will be her social media sr strategy manager and follow along with her. She verbalized understanding. She did not present with any questions or needs at this time.
--- NOTE | 2019-12-12 13:45 | NUR ---
RD ASSESSMENT PMHx: CAD; CHF; HTN; PAD; hypothyroidism PT INTERACTION: Pt was awake and pleasant during nutrition assessment. Pt states current appetite is "so-so" and has been for the past 2d. Note avg PO intake of 38% x1d, per chart review. Pt states following a regular diet at home, and has some issues with chewing/swallowing food. Pt states no recent issues with n/v/c/d at this time. Note last BM was 12/10 and pt not currently on bowel regimen per chart review. Pt states recent 7# wt gain x6mon. Note recent 13# wt loss x3mon, per chart review. ABNORMAL NUTRITION-RELATED LAB VALUES LOW: HIGH: BUN 48 Est. kcal needs: [id number] kcal | 30-35 kcal/kg Est. Pro needs: 60-72 g Pro | 1.0-1.2 g Pro/kg PES STATEMENT: Inadequate oral intake (NI-2.1) related to loss of appetite | chewing/swallowing difficulty as evidenced by pt interview | avg PO intake 38% x1d INTERVENTION: Continue with current diet order of DYS3 Advanced diet. Add Ensure Clear (vary) to meals TID, for increased kcal intake. Provides 250 kcal and 8 g Pro per serving. Will continue to follow and reassess as pt needs, intake, and status change. MONITOR/EVALUATE: PO Intake; Plan of Care; Hydration Status; Weight Status; Lab Values Katherine Gonzales, MS, RD, LD
--- NOTE | 2019-12-12 13:56 | Progress Note - Hospitalist ---
Subjective HPI/CC On Admission Date Seen by Provider: Dec 12, 2019 Time Seen by Provider: 13:52 Pt is an 84yoCF with a PMH of CHF, CAD, PAD, aortic valve replacement who presented to the emergency department due to extreme shortness of breath. She states that she did well after getting discharged 2 weeks ago but over the past week got more short of breath. She was seen in the ER and started on antibiotics two days ago and discharged home. She continued those but then yesterday afternoon got very short of breath. EMS was called. She arrived in moderate respiratory distress and was given a breathing treatment which helped her symptoms. She was found to have pneumonia and admitted for IV abx after failing outpatient treatment. She is pending COVID testing as well. Subjective/Events-last exam Pt reports feeling better today but still short of breath. Oxygen being titrated down. Attempted to videocall her daughter during exam at patient request but it did not connect. I did speak with her daughter, Lisa though regarding her progress. Focused Exam Lactate Level 12/10/19 21:43: Lactic Acid Level 0.65 Time of Focused Exam: 22:58 Objective Exam Vital Signs Vital Signs Date Time Temp Pulse Resp B/P (MAP) Pulse Ox O2 Delivery O2 Flow Rate FiO2 12/12/19 12:10 85 12/12/19 12:00 36.6 20 106/63 (77) 89 High Flow N/C 8.00 Capillary Refill : Less Than 3 SecondsLess Than 3 Seconds General Appearance: No Apparent Distress, Chronically ill Respiratory: Decreased Breath Sounds, Other (on 8lpm, work of breathing improved) Cardiovascular: Regular Rate, Rhythm, Systolic Murmur Gastrointestinal: Normal Bowel Sounds, Non Tender, Soft Neurologic/Psychiatric: Alert, Oriented x3 Results/Procedures Lab Laboratory Tests 12/12/19 05:30 Patient resulted labs reviewed. 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 CKD At baseline Trend with diuresis Hypothyroidism Continue home meds Restless leg syndrome cont Requip Diagnosis/Problems Diagnosis/Problems (1) ACUTE ON CHRONIC RESPIRATORY DISTRESS (2) PNA (pneumonia) (3) CHF (congestive heart failure) Status: Chronic (4) Hypoxia Status: Acute (5) Acute exacerbation of congestive heart failure Status: Acute (6) Sepsis Status: Acute Qualifiers: Sepsis type: sepsis due to unspecified organism Sepsis acute organ dysfunction status: with acute organ dysfunction Severe sepsis acute organ dysfunction type: acute respiratory failure Acute respiratory failure type: with hypoxia Severe sepsis shock status: without septic shock Qualified Codes: A41.9 - Sepsis, unspecified organism; R65.20 - Severe sepsis without septic shock; J96.01 - Acute respiratory failure with hypoxia (7) Subtherapeutic international normalized ratio (INR) Status: Acute (8) Atrial fibrillation, controlled Status: Chronic (9) PAD (peripheral artery disease) Status: Chronic (10) HTN (hypertension) Status: Chronic Clinical Quality Measures DVT/VTE Risk/Contraindication: Risk Factor Score Per Nursin RFS Level Per Nursing on Admit: 4+=Very High VENANCIO ARREAGA MD Dec 12, 2019 13:56
--- NOTE | 2019-12-12 15:08 | Occupational Therapy Eval ---
OT Evaluation-General/PLF Medical Diagnosis Admission Date Dec 10, 2019 at 22:45 Medical Diagnosis: PNA, acute on chronic respiratory distress Onset Date: Dec 10, 2019 Therapy Diagnosis Therapy Diagnosis: impaired self care skills Height/Weight Height (Feet): 5 Height (Inches): 6.00 Weight (Pounds): 138 Weight (Ounces): 6.0 Precautions Precautions/Isolations: Fall Prevention, Standard Precautions, Contact/Enteric Isolation Referral Physician: Denise Medical History Pertinent Medical History: Atrial Fib, Arthritis, CAD, Heart Failure, HTN, Hypothroidism, OA, Renal Insufficiency Additional Medical History PAD, aortic valve replacement, vertigo, Social History Home: Single Level Current Living Status: Children (daughter) ADL-Prior Level of Function SCALE: Activities may be completed with or without assistive devices. 8-Idfmfccryb-jqmlaou completes the activity by him/herself with no assistance from a helper. 5-Set-up or Clean-up Assistance-helper sets up or cleans up; patient completes activity. [place] assists only prior to or following the activity. 4-Supervision or Touching Assistance-helper provides verbal cues and/or touching/steadying and/or contact guard assistance as patient completes activity. Assistance may be provided throughout the activity or intermittently. 3-Partial/Moderate Assistance-helper does LESS THAN HALF the effort. [place] lifts, holds or supports trunk or limbs, but provides less than half the effort. 2-Substantial/Maximal Assistance-helper does MORE THAN HALF the effort. [place] lifts or holds trunk or limbs and provides more than half the effort. 1-Vzyeubmcu-dhsnxi does ALL the effort. Patient does none of the effort to complete the activity. Or, the assistance of 2 or more helpers is required for the patient to complete the activity. If activity was not attempted, code reason: 7-Patient Refused. 9-Not Applicable-not attempted and the patient did not perform the activity before the current illness, exacerbation or injury. 10-Not Attempted due to Environmental Limitations-(lack of equipment, weather restraints, etc.). 88-Not Attempted due to Medical Conditions or Safety Concerns. ADL PLOF Comments Pt reports using a walker for mobility and receiving assist for ADLs as needed. Self Care: Needed Some Help DME/Equipment: Bath Chair OT Current Status Subjective Pt sitting in chair, agrees to therapy. Mental Status/Objective Patient Orientation: Person, Place Attachments: Oxygen (6L) Current Glasses/Contacts: Yes Hand Dominance: Right Upper Extremity ROM Grossly WFL Upper Extremity Coordination Fair Upper Extremity Strength Generalized weakness ADL-Treatment ADL-Current Pt sitting in chair. Participated in UE assessment while seated. Pt performed sit to stand x2 trials with SBA. Pt stood with supervision. O2 sats 90% during standing. Increased to 92-93% with rest. Pt sitting in chair with needs met after session. Eating (QC): 5 (by report) Toileting Hygiene (QC): 7 (Pt declined, states she just got up to [facility] prior to sitting in chair.) Education OT Patient Education: Rehab process Teaching Recipient: Patient Teaching Methods: Discussion Response to Teaching: Verbalize Understanding OT Cementer Goals Assisted Goals Time Frame: Dec 26, 2019 Eating (QC): 6 Oral Hygiene (QC): 6 Toileting Hygiene (QC): 5 Upper Body Dressing (QC): 5 Lower Body Dressing (QC): 5 On/Off Footwear (QC): 5 Additional Goals: 1-Demonstrate ADL Tasks, 2-Verbalize Understanding, 3- ImproveStrength/Rick 1=Demonstrate adherence to instructed precautions during ADL tasks. 2=Patient will verbalize/demonstrate understanding of assistive devices/modifications for ADL. 3=Patient will improve strength/tolerance for activity to enable patient to perform ADL's. OT Education/Plan Problem List/Assessment Assessment: Decreased Activ Tolerance, Decreased UE Strength, Dependent Transfers, Impaired Self-Care Skills Pt to benefit from skilled OT while hospitalized to maximize level of function and allow safe discharge plan. Discharge Recommendations Plan/Recommendations: Continue POC Treatment Plan/Plan of Care Treatment,Training & Education: Yes Patient would benefit from OT for education, treatment and training to promote independence in ADL's, mobility, safety and/or upper extremity function for ADL's. Plan of Care: ADL Retraining, Functional Mobility, UE Funct Exercise/Act Treatment Duration: Dec 26, 2019 Frequency: 5 times per week Estimated Hrs Per Day: .25 hour per day Time/GCodes Start Time: 14:35 Stop Time: 14:55 Total Time Billed (hr/min): 10 ((10minutes unattended for PT eval)) Billed Treatment Time 1 visit, EVM(10minutes) KAN FLEMING OT Dec 12, 2019 15:07
--- NOTE | 2019-12-12 15:35 | Physical Therapy Evaluation ---
PT Evaluation-General Medical Diagnosis Admission Date Dec 10, 2019 at 22:45 Medical Diagnosis: PNA, acute on chronic respiratory distress Onset Date: Dec 10, 2019 Therapy Diagnosis Therapy Diagnosis: weakness Height/Weight Height (Feet): 5 Height (Inches): 6.00 Weight (Pounds): 138 Weight (Ounces): 6.0 Precautions Precautions/Isolations: Fall Prevention, Standard Precautions, Contact/Enteric Isolation Weight Bear Status Right Lower Extremity: Right Weight Bearing/Tolerated Left Lower Extremity: Left Weight Bearing/Tolerated Referral Physician: Denise Reason for Referral: Evaluation/Treatment Medical History Pertinent Medical History: Atrial Fib, Arthritis, CAD, Heart Failure, HTN, Hypothroidism, OA, Renal Insufficiency Additional Medical History PAD, aortic valve replacement Current History Pt discharge home from hospital roughly 2 weeks ago s/p pneumonia. Returned to ER on 12/10/2019 with severe SOB. Reviewed History: Yes Social History Home: Single Level Current Living Status: Children (daughter) Entry Into Home: Stairs With Railing PT Steps Into Home: 2 Prior Prior Level of Function SCALE: Activities may be completed with or without assistive devices. 7-Wpvcksclvu-atgduru completes the activity by him/herself with no assistance from a helper. 5-Set-up or Clean-up Assistance-helper sets up or cleans up; patient completes activity. [place] assists only prior to or following the activity. 4-Supervision or Touching Assistance-helper provides verbal cues and/or touching/steadying and/or contact guard assistance as patient completes activity . Assistance may be provided throughout the activity or intermittently. 3-Partial/Moderate Assistance-helper does LESS THAN HALF the effort. [place] lifts, holds or supports trunk or limbs, but provides less than half the effort. 2-Substantial/Maximal Assistance-helper does MORE THAN HALF the effort. [place] lifts or holds trunk or limbs and provides more than half the effort. 1-Fcromtcdr-sopwzr does ALL the effort. Patient does none of the effort to complete the activity. Or, the assistance of 2 or more helpers is required for the patient to complete the activity. If activity was not attempted, code reason: 7-Patient Refused. 9-Not Applicable-not attempted and the patient did not perform the activity before the current illness, exacerbation or injury. 10-Not Attempted due to Environmental Limitations-(lack of equipment, weather restraints, etc.). 88-Not Attempted due to Medical Conditions or Safety Concerns. Bed Mobility: 6 Transfers (B,C,W/C): 6 Gait: 6 Stairs: 4 Indoor Mobility (Ambulation): Independent Stairs: Needed Some Help Prior Devices Use: Walker Prior Device Use: Pt reports she used a FWW or daughter assist with household ambulation. Family assist on stairs PT Evaluation-Current Subjective Pt up in chair, agreeable. Reports she just got up to chair. States "I am moving fine if I could just catch my breath". Reports she has been on 3L O2 (concentrator with extended tubing) during the day and 4L O2 at night since last discharge. Pt/Family Goals Home Objective Patient Orientation: Person, Place, Time, Situation Attachments: Oxygen ROM/Strength ROM Upper Extremities See OT ROM Lower Extremities WFL for functional mobility Strength Upper Extremities See OT Strength Lower Extremities WFL for functional mobility Integumentary/Posture Integumentary See nurses' notes Posture kyphotic Neuromuscular (Tone, Coordination, Reflexes) grossly intact Sensory Vision: Wears Glasses Hearing: Functional Hand Dominance: Right Sensation Right Lower Extremit: Intact Sensation Left Lower Extremity: Intact Transfers Sit to Stand (QC): 5 Sit<->stand x 2 with standing trial for roughly 3 seconds, SBA. Pt on 6L O2 with sats dropping to 90% with static stand. Gait Does the Patient Walk?: Yes Mode of Locomotion: Walk Anticipated Mode of Locomotion: Walk Walk 10 feet (QC): 88 Walk 50 ft with 2 Turns(QC): 88 Walk 150 ft (QC): 88 Comments/Gait Description No gait attempted this date due to SOB and O2 desaturation Wheelchair Training Does the Pt Use a Wheelchair?: No Balance Sitting Static: Normal Sitting Dynamic: Normal Standing Static: Good Standing Dynamic: Fair Assessment/Needs Pt is an 84 y.o. female with diagnosis of pneumonia. Pt would benefit from skilled PT to improve functional mobility and restore PLOF with decreased caregiver burden. Pt's (I) with transfers is near PLOF, most limited by poor functional activity tolerance, SOB at present. Rehab Potential: Fair PT Snf Goals Snf Goals PT Dba Developer Goals Time Frame: Dec 19, 2019 Roll Left & Right (QC): 6 Sit to Lying (QC): 6 Lying-Sitting on Side/Bed(QC): 6 Sit to Stand (QC): 6 Chair/Afz-py-Specb Xfer(QC): 6 Toilet Transfer (QC): 6 Car Transfer (QC): 5 Does the Patient Walk: Yes Walk 10 feet (QC): 6 Walk 50ft with 2 Turns (QC): 6 Walk 150 ft (QC): 6 Walking 10ft on Uneven Surface: 5 1 Step (curb) (QC): 4 4 Steps (QC): 4 12 Steps (QC): 9 Picking up an Object (QC): 9 Does the Pt use WC or Scooter?: No Type: N/A Type: N/A PT goals established to allow safe return home with family with decreased caregiver burden. PT Plan Problem List Problem List: Activity Tolerance, Functional Strength, Balance, Gait, Transfer, Bed Mobility Treatment/Plan Treatment Plan: Continue Plan of Care Treatment Plan: Bed Mobility, Education, Functional Activity Rick, Functional Strength, Gait, Safety, Therapeutic Exercise, Transfers Treatment Duration: Dec 19, 2019 Frequency: 6 times per week Estimated Hrs Per Day: .25 hour per day Patient and/or Family Agrees t: Yes Safety Risks/Education Teaching Recipient: Patient Teaching Methods: Discussion Response to Teaching: Verbalize Understanding Role of PT Discharge Recommendations Therapy Discharge Recommendati: Home & Family Time/GCodes Time In: 1435 Time Out: 1455 Total Billed Treatment Time: 10 Total Billed Treatment 1, EVMODC x 10' (unattended x 10' for OT eval) MAKENZIE SAMUEL DPSebastián Dec 12, 2019 15:35
[2019-12-12 16:15] LABS: ABG BASE EXCESS 6.6 MMOL/L (-2.5-2.5); ABG OXYGEN SATURATION 90 % (94-100); ABG PCO2 68 MMHG (35-45); ABG PO2 55 MMHG (79-93)
--- NOTE | 2019-12-12 16:17 | NUR ---
SOIL CONSERVATION AIDE CALLED FOR HYPOXIA/LETHARGY, PT FOUND BY SACK KEEPER TO HAVE O2 SATS IN THE 70'S. PT WAS ON 5L VIA HIGH FLOW NC, O2 WAS INCREASED TO 7L WITH NO CHANGE IN O2 SAT. O2 INCREASED TO 10L, PT NOW SATING FROM 93%, RT AT BEDSIDE, WILL CONTINUE TO MONITOR. VS BP109/70, HR 86BPM, TEMP 36.6, , RR 20. PT A&0 Addendum: 12/12/19 at 1624 by KEELEY MANCERA RN O2 93-96%
[2019-12-12 16:19] LABS: ALLENS TEST POS; INSPIRED O2 6%; PATIENT TEMP 36.1; VENTILATOR NO
--- NOTE | 2019-12-12 16:34 | NUR ---
DR ARREAGA NOTIFIED OF CRITICAL PH 7.3
[2019-12-12] MEDS: methylPREDNISolone 40 MG/ML (Solu-MEDROL) VIAL IV SCH ×3 (17:01→23:38)
[2019-12-12] MEDS: warFARin 5 MG (COUMADIN) TAB PO SCH (17:04)
[2019-12-12] MEDS: rOPINIRole 1 MG (REQUIP) TABLET PO SCH (20:22)
[2019-12-12] MEDS: VANCOMYCIN INJECTION 1,000 MG in NS (IVPB) 250 ML IV SCH (23:37)
[2019-12-13] MEDS: ALBUTEROL/IPRATROP (COMBIVENT RESPIMAT) 4 GM INHALER IH SCH ×6 (02:33→22:06)
[2019-12-13] MEDS: CEFEPIME INJECTION 1,000 MG in WATER (STERILE) FOR INJECTION 10 ML IV SCH ×2 (03:19→14:16)
[2019-12-13 04:30] VITALS: BP 102/51
[2019-12-13 05:57] LABS: HEMOGLOBIN 8.6 G/DL (11.5-16.0); MEAN PLATELET VOLUME 10.1 FL (7.4-10.4); RED CELL DISTRIBUTION WIDTH 14.5 % (10.0-14.5); WHITE BLOOD COUNT 3.8 10^3/uL (4.3-11.0)
[2019-12-13 06:11] LABS: PROTHROMBIN TIME PATIENT 32.7 SEC (12.2-14.7)
[2019-12-13 06:15] LABS: CALCIUM 8.7 MG/DL (8.5-10.1)
[2019-12-13 06:20] LABS: CREATININE SERUM 1.39 MG/DL (0.60-1.30)
[2019-12-13] MEDS: methylPREDNISolone 40 MG/ML (Solu-MEDROL) VIAL IV SCH ×4 (06:36→23:42)
[2019-12-13] MEDS: FUROSEMIDE 40 MG/4 ML INJ (LASIX) IVP SCH ×2 (06:37→17:28)
[2019-12-13] MEDS: KCL 10 MEQ TAB (MICRO K) PO SCH ×2 (06:37→17:28)
[2019-12-13] MEDS: LEVOTHYROXINE 100 MCG (LEVOTHROID) TAB PO SCH (06:37)
[2019-12-13 08:00] VITALS: BP 107/55
--- NOTE | 2019-12-13 08:25 | Physical Therapy Progress Note ---
Therapy Progress Note Patient on Hold per RN due to decline in status. PT will monitor patient status and resume with medically stable. KATHERINE RUTHERFORD PT Dec 13, 2019 08:25
[2019-12-13] MEDS: SACUBITRIL/VALSARTAN 24/26 MG (ENTRESTO) TABLET PO SCH ×2 (08:58→20:42)
[2019-12-13] MEDS: rOPINIRole 0.25 MG (REQUIP) TAB PO SCH (08:58)
[2019-12-13] MEDS: DIGOXIN 0.125 MG (LANOXIN) TAB PO SCH (08:59)
--- NOTE | 2019-12-13 10:55 | Progress Note - Hospitalist ---
Subjective HPI/CC On Admission Date Seen by Provider: Dec 13, 2019 Time Seen by Provider: 10:49 Pt is an 84yoCF with a PMH of CHF, CAD, PAD, aortic valve replacement who presented to the emergency department due to extreme shortness of breath. She states that she did well after getting discharged 2 weeks ago but over the past week got more short of breath. She was seen in the ER and started on antibiotics two days ago and discharged home. She continued those but then yesterday afternoon got very short of breath. EMS was called. She arrived in moderate respiratory distress and was given a breathing treatment which helped her symptoms. She was found to have pneumonia and admitted for IV abx after failing outpatient treatment. She is pending COVID testing as well. Subjective/Events-last exam Pt reports feeling better today but looks tired. Breathing is improved. Now on Vapotherm but satting very well. Focused Exam Lactate Level 12/10/19 21:43: Lactic Acid Level 0.65 Time of Focused Exam: 22:58 Objective Exam Vital Signs Vital Signs Date Time Temp Pulse Resp B/P (MAP) Pulse Ox O2 Delivery O2 Flow Rate FiO2 12/13/19 08:00 36.9 84 20 107/55 (72) 97 Vapotherm 40.00 75.00 12/13/19 06:46 75 Capillary Refill : Less Than 3 SecondsLess Than 3 Seconds General Appearance: No Apparent Distress, Chronically ill Respiratory: Lungs Clear, Other (on vapotherm ) Cardiovascular: Regular Rate, Rhythm, No Murmur Gastrointestinal: Normal Bowel Sounds, Soft Neurologic/Psychiatric: Alert, Oriented x3 Results/Procedures Lab Laboratory Tests 12/13/19 05:31 Patient resulted labs reviewed. 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 I agree and think this is reasonable. Will place order as such. Diagnosis/Problems Diagnosis/Problems (1) ACUTE ON CHRONIC RESPIRATORY DISTRESS (2) PNA (pneumonia) (3) CHF (congestive heart failure) Status: Chronic (4) Hypoxia Status: Acute (5) Acute exacerbation of congestive heart failure Status: Acute (6) Sepsis Status: Acute Qualifiers: Sepsis type: sepsis due to unspecified organism Sepsis acute organ dysfunction status: with acute organ dysfunction Severe sepsis acute organ dysfunction type: acute respiratory failure Acute respiratory failure type: w ith hypoxia Severe sepsis shock status: without septic shock Qualified Codes: A41.9 - Sepsis, unspecified organism; R65.20 - Severe sepsis without septic shock; J96.01 - Acute respiratory failure with hypoxia (7) Subtherapeutic international normalized ratio (INR) Status: Acute (8) Atrial fibrillation, controlled Status: Chronic (9) PAD (peripheral artery disease) Status: Chronic (10) HTN (hypertension) Status: Chronic Clinical Quality Measures DVT/VTE Risk/Contraindication: Risk Factor Score Per Nursin RFS Level Per Nursing on Admit: 4+=Very High VENANCIO ARREAGA MD Dec 13, 2019 10:55
--- NOTE | 2019-12-13 11:23 | NUR ---
DR LOPEZ NOTIFIED OF CONSULT
[2019-12-13] MEDS: LORazepam 0.5 MG (ATIVAN) TABLET PO PRN ×2 (11:44→21:41)
--- NOTE | 2019-12-13 11:50 | NUR ---
PT REQUESTING SOMETHING TO HELP RELAX. PRN ATIVAN GIVEN. DENIES ANY OTHER NEEDS AT THIS TIME. RESTING IN BED WITH EYES CLOSED .
[2019-12-13 12:00] VITALS: BP 116/56
--- NOTE | 2019-12-13 13:42 | Progress Note - Cardiology ---
Cardiology SOAP Progress Note Subjective: No cp or palp or syncope Shortness of breath with mild activity Gen weakness and malaise No focal weakness No n/v/d Objective: I&O/Vital Signs 12/13/19 12/13/19 12/13/19 12/13/19 02:34 04:30 06:46 07:00 Temp 36.7 Pulse 85 84 Resp 24 B/P (MAP) 102/51 (68) Pulse Ox 96 99 96 O2 Delivery Vapotherm Vapotherm Vapotherm O2 Flow Rate 40.00 40.00 40.00 75.00 FiO2 75 75 12/13/19 12/13/19 12/13/19 12/13/19 08:00 08:00 10:53 11:47 Temp 36.9 Pulse 84 86 Resp 20 B/P (MAP) 107/55 (72) Pulse Ox 97 97 93 O2 Delivery Vapotherm Vapotherm Vapotherm Vapotherm O2 Flow Rate 40.00 40.00 40.00 30.00 75.00 55.00 FiO2 65 65 12/13/19 12:00 Temp 36.5 Pulse 85 Resp 20 B/P (MAP) 116/56 (76) Pulse Ox 97 O2 Delivery Vapotherm O2 Flow Rate 30.00 55.00 12/13/19 00:00 Intake Total 1200 ml Output Total 750 ml Balance 450 ml Weight (Pounds): 138 Weight (Ounces): 6.0 Weight (Calculated Kilograms): 62.400847 Constitutional: appears stated age, AAO x 3, other (Thin and frail) Respiratory: No accessory muscle use, No respiratory distress; chest expansion is symmetric, chest is bilaterally symmetric, other (diminished lower lobes bilat; dyspneic with converstation) Cardiovascular: regular rate-rhythm; No JVD; S1 and S2 (crisp, mechanical S2), systolic murmur (grade 4/5 systolic, grade 2/6 mid-diastolic), click (crisp mechanical S2) Gastrointestional: No tender; soft, round, audible bowel sounds Extremities: other (mild bilat LE swelling), wound (dressing in place to RLE, D&I - not removed; fragile integrity) Neurologic/Psychiatric: other (frail appearing, responds appropriately, seems to be able to move all limbs equally although is generally weak) Skin: normal color, warm/dry, other (see above under extremities) Results/Procedures: Labs Laboratory Tests 12/12/19 16:10: Blood Gas Puncture Site LT RAD, Blood Gas Patient Temperature 36.1, Arterial Blood pH 7.30*L, Arterial Blood Partial Pressure CO2 68H, Arterial Blood Partial Pressure O2 55L, Arterial Blood HCO3 33H, Arterial Blood Total CO2 35.0H, Arterial Blood Oxygen Saturation 90L, Arterial Blood Base Excess 6.6H, Earl Test POS, Blood Gas Ventilator Setting NO, Blood Gas Inspired Oxygen 6% 12/13/19 05:31: White Blood Count 3.8L, Red Blood Count 2.71L, Hemoglobin 8.6L, Hematocrit 29L, Mean Corpuscular Volume 109H, Mean Corpuscular Hemoglobin 32, Mean Corpuscular Hemoglobin Concent 29L, Red Cell Distribution Width 14.5, Platelet Count 166, Mean Platelet Volume 10.1, Prothrombin Time 32.7H, INR Comment 3.0H, Sodium Level 137, Potassium Level 5.0, Chloride Level 100, Carbon Dioxide Level 28, Anion Gap 9, Blood Urea Nitrogen 53H, Creatinine 1.39H, Estimat Glomerular Filtration Rate 36, BUN/Creatinine Ratio 38, Glucose Level 151H, Calcium Level 8.7 Microbiology 12/10/19 Influenza Types A,B Antigen (IRINEO) - Final, Complete 12/10/19 Blood Culture - Preliminary, Resulted No growth 12/10/19 Urine Culture - Final, Complete NO GROWTH Laboratory Tests 12/12/19 05:30 12/13/19 05:31 A/P: Assessment: Rising INR Multi-factorial dyspnea (see below) Acute on chronic systolic CHF Pneumonia - management per Medical Services Advanced valvular heart disease (aortic and mitral): Severe mitral valve stenosis rheumatic valve, severe mitral regurgitation with severe pulmonary hypertension, PASP 65-70 mmHg with biatrial and RV enlargement and dilated IVC. Dr. Parker has discussed with Dr. Page, he recommended medical therapy at this time considering her to be high risk for morbidity and mortality if she undergoes valve surgery. She is not a candidate for mitral clip secondary to her mitral stenosis Was referred once again to Dr. Davila in January 2019 for evaluation for possible TMVR. Decided to continue with conservative management at this time. patient and family have declined to go to [facility] for further evaluation History of aortic valve replacement in 1998 with metallic valve on Coumadin therapy with therapeutic INR, monitored by Dr. Prabhakar. Echo of Aug 2019: EF 35-40%, reduced RV systolic function. Ventricular septum contour shows diastolic flattening and systolic flattening, LA dilated measuring 8.3cm, RA dilated. MV has calcified annulus and severe stenosis, mod to severe MR, mechanical prosthetic AV present, severe TR, PA 65-70mmHg Permanent atrial fibrillation. [id number] Score of 6, maintained on Coumadin, managed as outpt by Dr. Prabhakar Peripheral vascular disease: patient has venous insufficiency on the right side that required ablation; peripheral angiogram May 2017, intervention to the anterior tibial artery, the wound has healed then developed a new ulcer after a trauma. Did balloon angioplasty to the right anterior tibial artery proximal portion has significant improvement the distal portion is occluded and did not improve, the posterior tibial artery and peroneal arteries were occluded with no collaterals in that area. The right SFA has multiple segment of moderate to severe stenosis, balloon angioplasty to the mid SFA with good results. Abdominal aorta has moderate disease, the left SFA has mild to moderate disease down to the trifurcation. Patient has nonhealing wounds to right ankle, underwent per ipheral angiogram with Dr. Arias on July 08, 2019 with right SFA and anterior tibial artery angioplasty with good results. Patient reports one to anterior iraheta is healing, however continues to have worsening of the right ankle one, appear venous in nature, managed by Dr Waters (wound) and Dr Parker (PAD) H/O implantation of PROJECT BUILDER-D-D in August 2012, last interrogation was done on November 25, 2019 showing device has reached CHERRY - plan for pulse generator change out is as per Dr. Parker Card cath of Sep 2014: Coronary artery disease, small vessel disease, nonobstructive disease, the prosthetic valve was functioning normally, pulmonary artery pressure was 50/26, pulmonary capillary wedge pressure 35, right ventricular pressure 53/17. Stress test done in December 2016 showing no ischemia or infarction, EF 41 percent, continue to monitor Carotid stenosis, continue to monitor, followed by [facility]. Abdominal aortic aneurysm (reportedly, 4.6 cm shanita) and PAD and carotid art disease monitor by [facility] Renal insufficiency-continue to monitor renal function. Hypertension - currently somewhat low BP Anemia of undetermined etiology - management per medical services Hyperlipidemia Right hip fracture in May 2018 status post surgical repair, recovered well. Plan: * Complex management due to multiple CV comorbidities * INR is rising rapidly. Reduce warfarin and monitor labs closely * Continue diuretics * director long term care prognosis does not appear good KIKE VILLAGRAN MD FACP [facility] Dec 13, 2019 13:42
[2019-12-13 16:24] VITALS: BP 103/50
--- NOTE | 2019-12-13 16:53 | NUR ---
AT 1400 PT NOTED TO HAVE 250ML OUT IN [place] SINCE 0600. 60ML OUTPUT SINCE 1400. DR ARREAGA NOTIFIED VIA PHONE, NO NEW ORDERS RECEIVED AT THIS TIME.
[2019-12-13] MEDS: warFARin 2 MG (COUMADIN) TAB PO SCH (17:28)
[2019-12-13 19:44] VITALS: BP 103/45
[2019-12-13] MEDS: rOPINIRole 1 MG (REQUIP) TABLET PO SCH (20:42)
[2019-12-13] MEDS: VANCOMYCIN INJECTION 1,000 MG in NS (IVPB) 250 ML IV SCH (21:40)
[2019-12-14] VITALS (7 sets, daily range): BP systolic 100–114; BP diastolic 49–59
[2019-12-14] MEDS: CEFEPIME INJECTION 1,000 MG in WATER (STERILE) FOR INJECTION 10 ML IV SCH ×2 (02:57→15:07)
[2019-12-14] MEDS: ALBUTEROL/IPRATROP (COMBIVENT RESPIMAT) 4 GM INHALER IH SCH ×6 (02:57→20:38)
[2019-12-14 06:01] LABS: HEMOGLOBIN 8.4 G/DL (11.5-16.0); MEAN PLATELET VOLUME 10.2 FL (7.4-10.4); WHITE BLOOD COUNT 5.6 10^3/uL (4.3-11.0)
[2019-12-14 06:21] LABS: INR 3.1 (0.8-1.4); PROTHROMBIN TIME PATIENT 33.1 SEC (12.2-14.7)
[2019-12-14 06:23] LABS: CALCIUM 8.7 MG/DL (8.5-10.1)
[2019-12-14 06:27] LABS: CREATININE SERUM 1.46 MG/DL (0.60-1.30)
--- NOTE | 2019-12-14 06:46 | Pulmonary Consultation ---
History of Present Illness History of Present Illness Date Seen by Provider: Dec 14, 2019 Time Seen by Provider: 06:40 Date of Admission Allergies and Home Medications Allergies Coded Allergies: NKANo Known Allergies (Verified Allergy, Unknown, 11/14/05) Home Medications Albuterol Sulfate 2.5 Mg/3 Ml Vial.neb, 3 ML NEB Q6H PRN for SHORTNESS OF BREATH, (Reported) Amoxicillin/Potassium Clav 1 Each Tablet, 1 EA PO BID, (Reported) FILLED 12-08-2019 #10/5 DAY SUPPLY (THIS WAS A CONTINUATION OF A PREVIOUS RX) ALSO FILLED 11-29-2019 #14/7 DAY SUPPLY Digoxin 125 Mcg Tablet, 125 MCG PO Q48H, (Reported) Enoxaparin Sodium 60 Mg/0.6 Ml Syringe, 60 MG SQ 1530, (Reported) FILL ON 11-29-2019 FOR A 14 DAY THERAPY Furosemide 40 Mg Tablet, 40 MG PO BID, (Reported) Furosemide 40 Mg Tablet, 40 MG PO DAILY PRN for SWELLING, (Reported) TAKES TWICE DAILY- MAY TAKE 1 EXTRA TAB IF NEEDED FOR SWELLING Guaifenesin 600 Mg Tab.er.12h, 600 MG PO Q12H PRN for CONGESTION, (Reported) Isosorbide Mononitrate 30 Mg Tab.er.24h, 15 MG PO DAILY, (Reported) TAKES 1/2 (30MG) TABLET Levothyroxine Sodium 100 Mcg Tablet, 100 MCG PO DAILY, (Reported) Loratadine 10 Mg Tablet, 10 MG PO DAILY, (Reported) Lorazepam 0.5 Mg Tablet, 0.5 MG PO HS PRN for INSOMNIA, (Reported) Metolazone 2.5 Mg Tablet, 2.5 MG PO PRN, (Reported) TAKES ON MON AND FRI AND NEEDED AND DIRECTED Metolazone 2.5 Mg Tablet, 2.5 MG PO MON,FRI, (Reported) TAKES ON MON AND FRI AND NEEDED AND DIRECTED Metoprolol Succinate 25 Mg Tab.er.24h, 25 MG PO DAILY PRN for BLOOD PRESSURE, (Reported) GIVE IF BLOOD PRESSURE IS OVER 100 Mexiletine HCl 150 Mg Cap, 150 MG PO Q12H, (Reported) Nitroglycerin 0.4 Mg Tab.subl, 0.4 MG SL UD PRN for CHEST PAIN, (Reported) Potassium Chloride 10 Meq Capsule.er, 10 MEQ PO BID, (Reported) Ropinirole HCl 0.5 Mg Tablet, 0.5 MG PO DAILY, (Reported) Ropinirole HCl 0.5 Mg Tablet, 1 MG PO HS, (Reported) TAKES 2 (0.5MG) TABS TO EQUAL 1MG AT BEDTIME (ALSO TAKE 0.5MG DAILY) Sacubitril/Valsartan 1 Each Tablet, 1 TAB PO BID, (Reported) Tramadol HCl 50 Mg Tablet, 50 MG PO Q6H PRN for PAIN-MODERATE (5-7), (Reported) Warfarin Sodium 2 Mg Tablet, 4 MG PO DAILY, (Reported) STARTING 12-08-2019 HAD THE PT TAKE 2 (2MG) TABLETS TO EQUAL 4MG DAILY FOR 3 DAYS AND THEN PT WAS GETTING INR RECHECKED. Past Rqydykw-Bbvxnr-[id number] Hx Past Med/Social Hx: Reviewed Nursing Past Med/Soc Hx Patient Social History Alcohol Use: Denies Use Recreational Drug Use: No Smoking Status: Never a Smoker 2nd Hand Smoke Exposure: No Recent Foreign Travel: No Contact w/Someone Who Travel: No Recent Infectious Disease Expo: No Recent Hopitalizations: No Physical Abuse: No Sexual Abuse: No Mistreated: No Fear: No Immunizations Up To Date Tetanus Booster (TDap): More than 5yrs PED Vaccines UTD: Yes Date of Pneumonia Vaccine: Jun 30, 2019 Date of Influenza Vaccine: Jun 03, 2019 Seasonal Allergies Seasonal Allergies: No Past Medical History Surgeries: Yes (pacemaker/defib, artifical aortic valve, R hip) Cardiac, Section, Gallbladder, Orthopedic, Valve Replacement Respiratory: Yes (WEARS O2 AT 3L/NC) Pneumonia, COPD Currently Using CPAP: No Currently Using BIPAP: No Cardiac: Yes (CHF, mechanical aortic valve) Cardiomyopathy, Coronary Artery Disease, Hypertension, Valvular Heart Disease Neurological: Yes Vertigo : No Reproductive Disorders: No GROUP 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 Sexually Transmitted Disease: No HIV/AIDS: No Genitourinary: No Gastrointestinal: No Gall Bladder Disease Musculoskeletal: No Arthritis Endocrine: Yes Hypothyroidsim HEENT: Yes Cataract Loss of Vision: Denies Hearing Impairment: Denies Cancer: No Did You Recieve Any Treatments: No Psychosocial: No Integumentary: Yes (venous stasis ulcers) Blood Disorders: Yes (anticoagulated) Adverse Reaction/Blood Tranf: No Family Medical History Family history: Diabetes mellitus 19 MOTHER Heart disease 19 MOTHER History of - respiratory disease 19 FATHER (PNEUMONIA- IN HIS 20'S) Myocardial infarction 19 MOTHER No Family History of: Abdominal aortic aneurysm Salida's disease Alcoholism Aphasia Cancer Cancer of colon Cataract Chest pain Congenital heart disease Congestive heart failure Cystic fibrosis Dementia Dysphagia Family history: Allergy Family history: Alzheimer's disease Family history: Arthritis Family history: Asthma Family history: Breast disease Family history: Cardiovascular disease Family history: Coronary thrombosis Family history: Gastrointestinal disease Family history: Glaucoma Family history: Hypertension Family history: Osteoporosis Family history: Thyroid disorder Headache Hearing loss Hereditary disease History of - anemia History of - disorder History of drug abuse Human immunodeficiency virus (HIV) seropositivity Hypercholesterolemia Infertile Kidney disease Parkinson's disease Prostate cancer Psychotic disorder Seizure disorder Stroke Tuberculosis Visual impairment No Pertinent Family Hx Review of Systems Time Seen by Provider: 06:41 Sepsis Event Evaluation Height, Weight, BMI Height: 5'6.00" Weight: 138lbs. 6.0oz. 62.407333wp; 21.51 BMI Method:Estimated Exam Exam Vital Signs Date Time Temp Pulse Resp B/P (MAP) Pulse Ox O2 Delivery O2 Flow Rate FiO2 12/14/19 04:23 36.8 83 20 101/54 (70) 93 Vapotherm 30.00 45.00 12/14/19 02:59 93 Vapotherm 30.00 45 12/14/19 01:00 83 12/14/19 00:17 36.9 89 16 100/51 (67) 94 Vapotherm 30.00 45.00 12/13/19 22:07 93 Vapotherm 30.00 45 12/13/19 20:00 Vapotherm 30.00 45 12/13/19 19:44 36.6 85 20 103/45 (64) 90 Vapotherm 30.00 45.00 12/13/19 19:00 99 12/13/19 18:08 91 Vapotherm 30.00 45 12/13/19 16:24 36.3 89 20 103/50 (67) 92 Vapotherm 30.00 45.00 12/13/19 14:39 94 Vapotherm 40.00 65 12/13/19 13:00 84 12/13/19 12:00 36.5 85 20 116/56 (76) 97 Vapotherm 30.00 55.00 12/13/19 11:47 86 93 Vapotherm 30.00 55.00 12/13/19 10:53 97 Vapotherm 40.00 65 12/13/19 08:00 36.9 84 20 107/55 (72) 97 Vapotherm 40.00 75.00 12/13/19 08:00 Vapotherm 40.00 65 12/13/19 07:00 84 12/13/19 06:46 96 Vapotherm 40.00 75 I & O 12/14/19 07:00 Intake Total 2054 ml Output Total 620 ml Balance 1434 ml Height & Weight Height: 5'6.00" Weight: 138lbs. 6.0oz. 62.583168mx; 21.51 BMI Method:Estimated General Appearance: No Apparent Distress, Chronically ill HEENT: Moist Mucous Membranes; No Scleral Icterus (L), No Scleral Icterus (R) Respiratory: Lungs Clear, Other (on vapotherm ) Cardiovascular: Regular Rate, Rhythm, No Murmur Capillary Refill: Less Than 3 Seconds Peripheral Pulses: 2+ Radial Pulses (R), 2+ Radial Pulses (L) Gastrointestinal: normal bowel sounds, non tender, soft Extremity: Non Tender, Pedal Edema, Swelling Neurologic/Psychiatric: Alert, Oriented x3 Results Lab Laboratory Tests 12/13/19 05:31 12/14/19 05:46 Assessment/Plan Assessment/Plan Pneumonia with sepsis -Continue Abx currently on cefepime -Vasquez cultures - neg -Repeat CXR Acute on chronic respiratory failure -steroids -COVID is negative - CHF with pulmonary edema and pleural effusions -Continue Lasix -EF 35-40% CAD Aortic valve replacement MV stenosis ANT LOPEZ DO Dec 14, 2019 06:46
[2019-12-14] MEDS: KCL 10 MEQ TAB (MICRO K) PO SCH ×2 (06:57→17:25)
[2019-12-14] MEDS: LEVOTHYROXINE 100 MCG (LEVOTHROID) TAB PO SCH (06:57)
[2019-12-14] MEDS: FUROSEMIDE 40 MG/4 ML INJ (LASIX) IVP SCH ×2 (06:58→17:25)
[2019-12-14] MEDS: methylPREDNISolone 40 MG/ML (Solu-MEDROL) VIAL IV SCH ×4 (06:58→23:12)
[2019-12-14] MEDS: SACUBITRIL/VALSARTAN 24/26 MG (ENTRESTO) TABLET PO SCH ×2 (08:17→20:15)
[2019-12-14] MEDS: DIGOXIN 0.125 MG (LANOXIN) TAB PO SCH (08:20)
[2019-12-14] MEDS: rOPINIRole 0.25 MG (REQUIP) TAB PO SCH (08:20)
--- NOTE | 2019-12-14 08:35 | Diagnostic Imaging Report ---
EXAM: Portable chest COMPARISON with a prior study from 12/11/2019 INDICATION: Follow-up of pneumonia. FINDINGS: There is marked enlargement of the cardiac silhouette which is unchanged from the prior exam. The patient is status post sternotomy as well as previous placement of an implantable defibrillator. Calcified granulomas are present within the lateral right lung. There is persistent obscuration of the diaphragms, left greater than right, suggesting basilar consolidation and an associated effusion. This appears progressed on the left. There are no findings of a pneumothorax. IMPRESSION: 1. Marked enlargement of the cardiac silhouette not significantly changed from prior examination. 2. Bibasilar consolidation with apparent associated effusions. This is more significant on the left and has progressed compared to the prior exam. Dictated by: Dictated on workstation # [id number]
--- NOTE | 2019-12-14 10:44 | NUR ---
pt refused tx at this time. pt is wanting to sleep and the medication makes her jittery and cant sleep. pt is in no respiratory distress at this time. Addendum: 12/14/19 at 1052 by JOAO FREITAS RT Amended: Links added.
[2019-12-14] MEDS ORDERED: FLEET ENEMA ADULT 1 EA BTL PR PRN (11:45)
[2019-12-14] MEDS ORDERED: SENNA W/DOCUSATE (SENOKOT S) TABLET PO PRN (11:45)
[2019-12-14] MEDS ORDERED: polyethylene glycoL POWDER 17 GM (MIRALAX) PACK PO PRN (11:45)
--- NOTE | 2019-12-14 11:45 | Progress Note - Hospitalist ---
Subjective HPI/CC On Admission Date Seen by Provider: Dec 14, 2019 Time Seen by Provider: 11:40 Pt is an 84yoCF with a PMH of CHF, CAD, PAD, aortic valve replacement who presented to the emergency department due to extreme shortness of breath. She states that she did well after getting discharged 2 weeks ago but over the past week got more short of breath. She was seen in the ER and started on antibiotics two days ago and discharged home. She continued those but then yesterday afternoon got very short of breath. EMS was called. She arrived in moderate respiratory distress and was given a breathing treatment which helped her symptoms. She was found to have pneumonia and admitted for IV abx after failing outpatient treatment. She is pending COVID testing as well. Subjective/Events-last exam Pt looks better today but complains of constipation and SOB. Discussed with patient and her grandson, Pasquale who is an [employer] regarding worsening pleural effusion and kidney function and possible treatment options. Focused Exam Time of Focused Exam: 22:58 Objective Exam Vital Signs Vital Signs Date Time Temp Pulse Resp B/P (MAP) Pulse Ox O2 Delivery O2 Flow Rate FiO2 12/14/19 10:50 94 Vapotherm 30.00 45 12/14/19 08:00 36.6 86 18 109/53 (71) Capillary Refill : Less Than 3 SecondsLess Than 3 Seconds General Appearance: No Apparent Distress, Chronically ill Respiratory: Decreased Breath Sounds; No Wheezing; Other (on Vapotherm, work of breath less ) Cardiovascular: Regular Rate, Rhythm, No Murmur Gastrointestinal: Normal Bowel Sounds, Soft Neurologic/Psychiatric: Alert, Oriented x3, Normal Mood/Affect Results/Procedures Lab Laboratory Tests 12/14/19 05:46 Patient resulted labs reviewed. Imaging: Reviewed Imaging Report Assessment/Plan Assessment and Plan Assess & Plan/Chief Complaint Sepsis from Pneumonia Acute on Chronic Respiratory Failure Continue Vanc and Cefepime No growth on cultures Continue Steroids Titrate sats to keep greater than 90, now on Vapotherm but titrating down on oxygen level COVID testing negative Consult pulmonology, discussed with Dr Pichardo today- will continue diuresis and repeat CXR in AM Thoracentesis would be very difficult to arrange given need for anticoagulation for mechanical valve and known heart failure as likely etiology Dr Pichardo will call family tomorrow to discuss this Palliative care consult CHF CAD Aortic Valve Replacement Mitral Valve stenosis pAF Continue Lasix- consider Bumex tomorrow if still minimal result from Lasix INR 3.1 Cardiology consulted, appreciate recs Needs pacemaker replaced when more stable per primary energy risk management analyst CKD Has trended up, monitor closely Trend with diuresis Hypothyroidism Continue home meds Restless leg syndrome cont Requip Constipation Bowel regimen added Diagnosis/Problems Diagnosis/Problems (1) ACUTE ON CHRONIC RESPIRATORY DISTRESS (2) PNA (pneumonia) (3) CHF (congestive heart failure) Status: Chronic Qualifiers: Heart failure type: systolic Heart failure chronicity: acute on chronic Qualified Codes: I50.23 - Acute on chronic systolic (congestive) heart failure (4) Hypoxia Status: Acute (5) Acute exacerbation of congestive heart failure Status: Acute Qualifiers: Heart failure type: systolic Qualified Codes: I50.23 - Acute on chronic systolic (congestive) heart failure (6) Sepsis Status: Acute Qualifiers: Sepsis type: sepsis due to unspecified organism Sepsis acute organ dysfunction status: with acute organ dysfunction Severe sepsis acute organ dysfunction type: acute respiratory failure Acute respiratory failure type: with hypoxia Severe sepsis shock status: without septic shock Qualified Codes: A41.9 - Sepsis, unspecified organism; R65.20 - Severe sepsis without septic shock; J96.01 - Acute respiratory failure with hypoxia (7) Subtherapeutic international normalized ratio (INR) Status: Acute (8) Atrial fibrillation, controlled Status: Chronic (9) PAD (peripheral artery disease) Status: Chronic (10) HTN (hypertension) Status: Chronic Qualifiers: Hypertension type: essential hypertension Qualified Codes: I10 - Essential (primary) hypertension Clinical Quality Measures DVT/VTE Risk/Contraindication: Risk Factor Score Per Nursin RFS Level Per Nursing on Admit: 4+=Very High VENANCIO ARREAGA MD Dec 14, 2019 11:45
[2019-12-14] MEDS: LORazepam 0.5 MG (ATIVAN) TABLET PO PRN ×2 (11:56→23:12)
--- NOTE | 2019-12-14 14:17 | Progress Note - Cardiology ---
Cardiology SOAP Progress Note Subjective: Notes only modest improvement of shortness of breath No cp or palp or syncope Gen malaise and weakness No n/v/d No focal weakness Objective: I&O/Vital Signs 12/14/19 12/14/19 12/14/19 12/14/19 02:59 04:23 06:43 07:05 Temp 36.8 Pulse 83 88 Resp 20 B/P (MAP) 101/54 (70) Pulse Ox 93 93 93 O2 Delivery Vapotherm Vapotherm Vapotherm O2 Flow Rate 30.00 30.00 30.00 45.00 FiO2 45 45 12/14/19 12/14/19 12/14/19 12/14/19 08:00 08:00 10:50 12:09 Temp 36.6 36.6 Pulse 86 86 Resp 18 20 B/P (MAP) 109/53 (71) 114/59 (77) Pulse Ox 91 94 96 O2 Delivery Vapotherm Vapotherm Vapotherm Vapotherm O2 Flow Rate 30.00 30.00 30.00 30.00 45.00 45.00 FiO2 45 45 12/14/19 12/14/19 12:44 14:08 Pulse 89 Pulse Ox 94 O2 Delivery Vapotherm O2 Flow Rate 30.00 FiO2 45 12/14/19 00:00 Intake Total 1414 ml Output Total 370 ml Balance 1044 ml Weight (Pounds): 138 Weight (Ounces): 6.0 Weight (Calculated Kilograms): 62.367447 Constitutional: appears stated age, AAO x 3, other Respiratory: chest expansion is symmetric, chest is bilaterally symmetric, other (Fair air entry, diminished at bases, scattered rhonchi, increased exp phase) Cardiovascular: regular rate-rhythm, S1 and S2, systolic murmur, click Gastrointestional: soft, round, audible bowel sounds Extremities: other, wound Neurologic/Psychiatric: other Skin: normal color, warm/dry; No cool, No diaphoresis; other Results/Procedures: Labs Laboratory Tests 12/14/19 05:46: White Blood Count 5.6, Red Blood Count 2.64L, Hemoglobin 8.4L, Hematocrit 28L, Mean Corpuscular Volume 107H, Mean Corpuscular Hemoglobin 32, Mean Corpuscular Hemoglobin Concent 30L, Red Cell Distribution Width 14.0, Platelet Count 170, Mean Platelet Volume 10.2, Prothrombin Time 33.1H, INR Comment 3.1H, Sodium Level 133L, Potassium Level 5.0, Chloride Level 98, Carbon Dioxide Level 23, Anion Gap 12, Blood Urea Nitrogen 64H, Creatinine 1.46H, Estimat Glomerular Filtration Rate 34, BUN/Creatinine Ratio 44, Glucose Level 154H, Calcium Level 8.7 Microbiology 12/10/19 Influenza Types A,B Antigen (IRINEO) - Final, Complete 12/10/19 Blood Culture - Preliminary, Resulted No growth 12/10/19 Urine Culture - Final, Complete NO GROWTH Laboratory Tests 12/13/19 05:31 12/14/19 05:46 A/P: Assessment: Rising INR Multi-factorial dyspnea (see below) Acute on chronic systolic CHF Pneumonia - management per Medical Services Advanced valvular heart disease (aortic and mitral): Severe mitral valve stenosis rheumatic valve, severe mitral regurgitation with severe pulmonary hypertension, PASP 65-70 mmHg with biatrial and RV enlargement and dilated IVC. Dr. Parker has discussed with Dr. Page, he recommended medical therapy at this time considering her to be high risk for morbidity and mortality if she undergoes valve surgery. She is not a candidate for mitral clip secondary to her mitral stenosis Was referred once again to Dr. Davila in January 2019 for evaluation for possible TMVR. Decided to continue with conservative management at this time. patient and family have declined to go to [place] for further evaluation History of aortic valve replacement in 1998 with metallic valve on Coumadin therapy with therapeutic INR, monitored by Dr. Prabhakar. Echo of Aug 2019: EF 35-40%, reduced RV systolic function. Ventricular septum contour shows diastolic flattening and systolic flattening, LA dilated measuring 8.3cm, RA dilated. MV has calcified annulus and severe stenosis, mod to severe MR, mechanical prosthetic AV present, severe TR, PA 65-70mmHg Permanent atrial fibrillation. [id number] Score of 6, maintained on Coumadin, managed as outpt by Dr. Prabhakar Peripheral vascular disease: patient has venous insufficiency on the right side that required ablation; peripheral angiogram May 2017, intervention to the anterior tibial artery, the wound has healed then developed a new ulcer after a trauma. Did balloon angioplasty to the right anterior tibial artery proximal portion has significant improvement the distal portion is occluded and did not improve, the posterior tibial artery and peroneal arteries were occluded with no collaterals in that area. The right SFA has multiple segment of moderate to severe stenosis, balloon angioplasty to the mid SFA with good results. Abdominal aorta has moderate disease, the left SFA has mild to moderate disease down to the trifurcation. Patient has nonhealing wounds to right ankle, underwent peripheral angiogram with Dr. Arias on July 08, 2019 with right SFA and anterior tibial artery angioplasty with good results. 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 Parker Card cath of Sep 2014: Coronary artery disease, small vessel disease, n onobstructive disease, the prosthetic valve was functioning normally, pulmonary artery pressure was 50/26, pulmonary capillary wedge pressure 35, right ventricular pressure 53/17. Stress test done in December 2016 showing no ischemia or infarction, EF 41 percent, continue to monitor Carotid stenosis, continue to monitor, followed by [facility]. Abdominal aortic aneurysm (reportedly, 4.6 cm shanita) and PAD and carotid art disease monitor by [facility] CKD-4 Hypertension - currently somewhat low BP Anemia of undetermined etiology - management per medical services Hyperlipidemia Right hip fracture in May 2018 status post surgical repair, recovered well. Plan: * Complex management due to multiple CV comorbidities * Monitor INR and adjust warfarin * Continue diuretics * longterm prognosis does not appear good KIKE VILLAGRAN MD [facility] Dec 14, 2019 14:17
[2019-12-14] MEDS: warFARin 2 MG (COUMADIN) TAB PO SCH (17:25)
[2019-12-14] MEDS: rOPINIRole 1 MG (REQUIP) TABLET PO SCH (20:15)
[2019-12-14] MEDS: MELATONIN 3 MG TABLET PO SCH (20:15)
[2019-12-15] VITALS (7 sets, daily range): BP systolic 92–134; BP diastolic 38–69
[2019-12-15] MEDS: ALBUTEROL/IPRATROP (COMBIVENT RESPIMAT) 4 GM INHALER IH SCH ×6 (02:11→21:36)
[2019-12-15] MEDS: CEFEPIME INJECTION 1,000 MG in WATER (STERILE) FOR INJECTION 10 ML IV SCH ×2 (02:56→15:04)
[2019-12-15 05:41] LABS: HEMOGLOBIN 8.4 G/DL (11.5-16.0); MEAN PLATELET VOLUME 10.1 FL (7.4-10.4); RED CELL DISTRIBUTION WIDTH 14.1 % (10.0-14.5); WHITE BLOOD COUNT 6.2 10^3/uL (4.3-11.0)
[2019-12-15 05:47] LABS: CALCIUM 8.7 MG/DL (8.5-10.1)
[2019-12-15 05:49] LABS: INR 2.6 (0.8-1.4); PROTHROMBIN TIME PATIENT 28.7 SEC (12.2-14.7)
[2019-12-15 05:51] LABS: CREATININE SERUM 1.6 MG/DL (0.60-1.30)
[2019-12-15] MEDS: LEVOTHYROXINE 100 MCG (LEVOTHROID) TAB PO SCH (06:49)
[2019-12-15] MEDS: methylPREDNISolone 40 MG/ML (Solu-MEDROL) VIAL IV SCH ×4 (06:49→23:11)
[2019-12-15] MEDS: KCL 10 MEQ TAB (MICRO K) PO SCH ×2 (06:49→18:39)
--- NOTE | 2019-12-15 07:28 | NUR ---
DR. BRADFORD NOTIFIED OF PT'S BUN OF 79 THIS AM. PT EMAR HAD 80MG OF IV LASIX TO BE GIVEN AT 0700. NEW ORDERS RECIEVED TO DECREASE LASIX TO 40MG BID. NOTIFIED THE DAY SHIFT RN KNOW ABOUT NEW ORDERS.
--- NOTE | 2019-12-15 08:07 | Pulmonary Progress Note ---
Subjective Time Seen by a Provider: 08:05 Subjective/Events-last exam appears to be doing slightly better. Sepsis Event Evaluation Height, Weight, BMI Height: 5'6.00" Weight: 138lbs. 6.0oz. 62.297509ms; 21.51 BMI Method:Estimated Focused Exam Time of Focused Exam: 22:58 Exam Exam Vital Signs Date Time Temp Pulse Resp B/P (MAP) Pulse Ox O2 Delivery O2 Flow Rate FiO2 12/15/19 07:02 95 Vapotherm 30.00 45 12/15/19 04:10 36.9 90 18 105/51 (69) 97 Vapotherm 30.00 45.00 12/15/19 02:12 96 Vapotherm 30.00 45 12/15/19 01:00 90 12/14/19 23:15 39.6 85 22 100/54 (69) 95 Vapotherm 30.00 45.00 12/14/19 20:39 94 Vapotherm 30.00 45 12/14/19 20:22 93 Vapotherm 40.00 45 12/14/19 20:00 37.0 83 20 105/51 (69) 93 Vapotherm 30.00 45.00 12/14/19 19:00 85 12/14/19 18:23 93 Vapotherm 30.00 45 12/14/19 16:00 36.7 84 20 102/49 (66) 95 Vapotherm 30.00 45.00 12/14/19 14:08 94 Vapotherm 30.00 45 12/14/19 12:44 89 12/14/19 12:09 36.6 86 20 114/59 (77) 96 Vapotherm 30.00 45.00 12/14/19 10:50 94 Vapotherm 30.00 45 I & O 12/15/19 07:00 Intake Total 1836 ml Output Total 1025 ml Balance 811 ml Height & Weight Height: 5'6.00" Weight: 138lbs. 6.0oz. 62.392202va; 21.51 BMI Method:Estimated General Appearance: No Apparent Distress, Chronically ill HEENT: Moist Mucous Membranes; No Scleral Icterus (L), No Scleral Icterus (R) Respiratory: Decreased Breath Sounds; No Wheezing; Other (on Vapotherm, work of breath less ) Cardiovascular: Regular Rate, Rhythm, No Murmur Capillary Refill: Less Than 3 Seconds Peripheral Pulses: 2+ Radial Pulses (R), 2+ Radial Pulses (L) Gastrointestinal: normal bowel sounds, non tender, soft Extremity: Non Tender, Pedal Edema, Swelling Neurologic/Psychiatric: Alert, Oriented x3, Normal Mood/Affect Results Lab Laboratory Tests 12/14/19 05:46 12/15/19 05:00 Assessment/Plan Assessment/Plan Pneumonia -No leukocytosis currently and no fever -currently on cefepime -Vasquez cultures - neg -Repeat PCT Acute on chronic respiratory failure -steroids -D/C Vapotherm and change to NC. -COVID is negative - CHF with pulmonary edema and pleural effusions -Continue Lasix -EF 35-40% -Pt is fully anticoagulated. I would not recommend thoracentesis at this time. CAD Aortic valve replacement MV stenosis Overall prognosis is guarded consider home hospice. ANT LOPEZ DO Dec 15, 2019 08:07
[2019-12-15] MEDS: SACUBITRIL/VALSARTAN 24/26 MG (ENTRESTO) TABLET PO SCH ×2 (08:31→22:05)
[2019-12-15] MEDS: ONDANSETRON 4 MG/2 ML (SDV) Z0FRAN IVP PRN (08:31)
[2019-12-15] MEDS: rOPINIRole 0.25 MG (REQUIP) TAB PO SCH (08:31)
[2019-12-15] MEDS: DIGOXIN 0.125 MG (LANOXIN) TAB PO SCH (08:31)
--- NOTE | 2019-12-15 09:24 | NUR ---
PALLIATIVE CARE consult received for this patient who has AoC Resp Failure, valvular heart disease and HF. Dr. Walker has spoken to the daughter Lisa about possibility of Hospice at [facility], unsure where we are in this decision process. This RN to room to have a GOC conversations with patient, however upon arrival she was on the BSC with complaints of stomach cramping and having had some emesis. She did have a medium size BM soft, brown with a ribboned appearance in the basin, also noted clear, mucous tinged emesis with crackers also in basin upon emptying. SHe reports that she has emesis sometimes when trying to have BM. Got patient back to bed and positioned for a brief stay when she started cramping and wanted to return to BSC. THis time with production of small brown bowel movement. Did not have the conversation with her at this time due to her clearly not feeling up to it. I got her Ice water and also prepared to 240ml Ice cups with Vitamin water in them. Call light is within reach and she is laying in bed on right side, HOB elevated to 20 DEGREES. NO NEEDS at this time.
--- NOTE | 2019-12-15 10:24 | NUR ---
SPOKE WITH PT DAUGHTER ARABELLA. DAUGHTER CONCERNED WITH PT PACEMAKER BATTERY LIFE, STATED WAS TOLD BY A MATLAB DEVELOPER SHE HAD 3MONTHS LEFT OF BATTERY LIFE AND THAT WAS SEVERAL MONTHS AGO. PT DAUGHTER REQUESTED TO TALK WITH THE MATLAB DEVELOPER ABOUT AN UPDATE WITH PT. NOTIFIED DAUGHTER WOULD PASS THESE CONCERNS ALONG TO MATLAB DEVELOPER TODAY. DAUGHTER WAS ALSO UPDATED ON PT CONDITION THIS AM. PT HAD SOME EMESIS WHEN TRYING TO HAVE A BM THIS AM. PT HAD MODERATE SIZE BM AND WAS GIVEN ZOFRAN. PT REPORTED FEELING BETTER AFTER MEDICATION GIVEN/HAVING THE MODERATE BM. PT WAS RESTING IN BED COMFORTABLY. PT DAUGHTER NOTIFIED TO CALL THIS RN IF SHE HAD ANY OTHER QUESTIONS/CONCERNS. SPOKE WITH ALONZO CHEN AFTER SPEAKING WITH DAUGHTER. NOTIFIED OF PT DAUGHTER CONCERNS.
--- NOTE | 2019-12-15 10:40 | Physical Therapy Daily Note ---
PT Daily Note-Current Subjective Pt in bed upon arrival. Pt agrees to sit EOB to complete ex and asks to sit up in recliner when finished. Pain Numeric Pain Scale: 0-No Pain Location: No Pain Reported Mental Status Patient Orientation: Person, Place, Time, Situation Attachments: Saline Lock, Oxygen (Vapotherm), Gomes Catheter Transfers SCALE: Activities may be completed with or without assistive devices. 4-Ybjgypprrw-iewyhoc completes the activity by him/herself with no assistance from a helper. 5-Set-up or Clean-up Assistance-helper sets up or cleans up; patient completes activity. [place] assists only prior to or following the activity. 4-Supervision or Touching Assistance-helper provides verbal cues and/or touching/steadying and/or contact guard assistance as patient completes activity. Assistance may be provided throughout the activity or intermittently. 3-Partial/Moderate Assistance-helper does LESS THAN HALF the effort. [place] lifts, holds or supports trunk or limbs, but provides less than half the effort. 2-Substantial/Maximal Assistance-helper does MORE THAN HALF the effort. [place] lifts or holds trunk or limbs and provides more than half the effort. 7-Nrmmdbegx-kxgmee does ALL the effort. Patient does none of the effort to complete the activity. Or, the assistance of 2 or more helpers is required for the patient to complete the activity. If activity was not attempted, code reason: 7-Patient Refused. 9-Not Applicable-not attempted and the patient did not perform the activity before the current illness, exacerbation or injury. 10-Not Attempted due to Environmental Limitations-(lack of equipment, weather restraints, etc.). 88-Not Attempted due to Medical Conditions or Safety Concerns. Roll Left & Right (QC): 6 Lying to Sitting/Side of Bed(Q: 5 (Requires assistance making sure attachments aren't in the way) Sit to Stand (QC): 4 Chair/Acz-gq-Jozcl Xfer(QC): 4 Weight Bearing Right Lower Extremity: Right Weight Bearing/Tolerated Left Lower Extremity: Left Weight Bearing/Tolerated Exercises Seated Therapy Exercises: Ankle pumps, Long arc quads, Hip flexion, Hip abd/add Seated Reps: 15 Treatments Pt stand pivots to recliner at [facility]. Pt in recliner at end of tx w/ call light, bedside table and all needs met. Assessment Current Status: Fair Progress Pt motivated to complete therapy tx. Pt fatigues easily d/t SOB. PT Mcfp Goals Range Master Goals PT Range Master Goals Time Frame: Dec 19, 2019 Roll Left & Right (QC): 6 Sit to Lying (QC): 6 Lying-Sitting on Side/Bed(QC): 6 Sit to Stand (QC): 6 Chair/Jkq-dt-Sffvn Xfer(QC): 6 Toilet Transfer (QC): 6 Car Transfer (QC): 5 Does the Patient Walk: Yes Walk 10 feet (QC): 6 Walk 50ft with 2 Turns (QC): 6 Walk 150 ft (QC): 6 Walking 10ft on Uneven Surface: 5 1 Step (curb) (QC): 4 4 Steps (QC): 4 12 Steps (QC): 9 Picking up an Object (QC): 9 Does the Pt use WC or Scooter?: No Type: N/A Type: N/A PT Plan Problem List Problem List: Activity Tolerance, Functional Strength, Safety, Bed Mobility Treatment/Plan Treatment Plan: Continue Plan of Care Treatment Plan: Bed Mobility, Education, Functional Activity Rick, Functional Strength, Gait, Safety, Therapeutic Exercise, Transfers Treatment Duration: Dec 19, 2019 Frequency: 6 times per week Estimated Hrs Per Day: .25 hour per day Patient and/or Family Agrees t: Yes Safety Risks/Education Patient Education: Correct Positioning, Safety Issues Teaching Recipient: Patient Teaching Methods: Discussion Response to Teaching: Verbalize Understanding Time/GCodes Time In: 0940 Time Out: 1005 Total Billed Treatment Time: 25 Total Billed Treatment 1, EX x2 (25m) CLAIR TRIPLETT LINOLEUM TILE LAYER Dec 15, 2019 10:39
--- NOTE | 2019-12-15 13:26 | Occupational Ther Daily Note ---
OT Current Status-Daily Note Subjective No pain reported. Appearance Pt. up in reclining chair. Agrees to work with OT. Mental Status/Objective Patient Orientation: Person, Place Attachments: Gomes Catheter, IV, Oxygen, Telemetry Vapotherm ADL-Treatment Therapy Code Descriptions/Definitions Functional [place] Measure: 0=Not Assessed/NA 4=Minimal Assistance 1=Total Assistance 5=Supervision or Setup 2=Maximal Assistance 6=Modified [place] 3=Moderate Assistance 7=Complete IndependenceSCALE: Activities may be completed with or without assistive devices. 7-Zlxpzfbmid-hvacqzn completes the activity by him/herself with no assistance from a helper. 5-Set-up or Clean-up Assistance-helper sets up or cleans up; patient completes activity. [place] assists only prior to or following the activity. 4-Supervision or Touching Assistance-helper provides verbal cues and/or touching/steadying and/or contact guard assistance as patient completes activity. Assistance may be provided throughout the activity or intermittently. 3-Partial/Moderate Assistance-helper does LESS THAN HALF the effort. [place] lifts, holds or supports trunk or limbs, but provides less than half the effort. 2-Substantial/Maximal Assistance-helper does MORE THAN HALF the effort. [place] lifts or holds trunk or limbs and provides more than half the effort. 8-Danlyhanh-whoezq does ALL the effort. Patient does none of the effort to complete the activity. Or, the assistance of 2 or more helpers is required for the patient to complete the activity. If activity was not attempted, code reason: 7-Patient Refused. 9-Not Applicable-not attempted and the patient did not perform the activity before the current illness, exacerbation or injury. 10-Not Attempted due to Environmental Limitations-(lack of equipment, weather restraints, etc.). 88-Not Attempted due to Medical Conditions or Safety Concerns. Shower/Bathe Self (QC): 4 (Pt. able to complete sponge bath with SBA in sitting and standing position.) Pt. agrees to sponge bathe while seated. Pt. able to stand with SBA and complete kourtney care, while at walker for support. Pt. donned fresh gown, and brushed hair. She applied cream to face and OT obtained lotion for her. Bilateral LE elevated in seating and all needs met. Education OT Patient Education: Correct positioning, Modified ADL techniques, Progress toward Goal/Update tx plan, Purpose of tx/functional activities, Reviewed precautions, Rehab process, Transfer techniques Teaching Recipient: Patient Teaching Methods: Demonstration, Discussion Response to Teaching: Verbalize Understanding, Return Demonstration OT [facility] Goals [facility] Goals Time Frame: Dec 26, 2019 Eating (QC): 6 Oral Hygiene (QC): 6 Toileting Hygiene (QC): 5 Upper Body Dressing (QC): 5 Lower Body Dressing (QC): 5 On/Off Footwear (QC): 5 Additional Goals: 1-Demonstrate ADL Tasks, 2-Verbalize Understanding, 3-ImproveStrength/Rick 1=Demonstrate adherence to instructed precautions during ADL tasks. 2=Patient will verbalize/demonstrate understanding of assistive devices/modifications for ADL. 3=Patient will improve strength/tolerance for activity to enable patient to perform ADL's. OT Education/Plan Problem List/Assessment Assessment: Decreased Activ Tolerance, Impaired I ADL's, Impaired Self-Care Skills Pt to benefit from skilled OT while hospitalized to maximize level of function and allow safe discharge plan. Discharge Recommendations Plan/Recommendations: Continue POC Treatment Plan/Plan of Care Treatment,Training & Education: Yes Patient would benefit from OT for education, treatment and training to promote independence in ADL's, mobility, safety and/or upper extremity function for AD L's. Plan of Care: ADL Retraining, Functional Mobility, UE Funct Exercise/Act Treatment Duration: Dec 26, 2019 Frequency: 5 times per week Estimated Hrs Per Day: .25 hour per day Agreement: Yes Rehab Potential: Fair Time/GCodes Start Time: 10:05 Stop Time: 10:20 Total Time Billed (hr/min): 15 Billed Treatment Time 1, ADL NIXON HOOPER OT Dec 15, 2019 13:26
--- NOTE | 2019-12-15 14:25 | Progress Note - Cardiology ---
Cardiology SOAP Progress Note Subjective: Shortness of breath better Gen malaise somewhat better No cp or palp or syncope No focal weakness No n/v/d Objective: I&O/Vital Signs 12/15/19 12/15/19 12/15/19 12/15/19 04:10 06:35 07:02 08:00 Temp 36.9 36.5 Pulse 90 85 89 Resp 18 18 B/P (MAP) 105/51 (69) 134/69 (90) Pulse Ox 97 95 96 O2 Delivery Vapotherm Vapotherm Vapotherm O2 Flow Rate 30.00 30.00 10.00 45.00 45.00 FiO2 45 12/15/19 12/15/19 12/15/19 12/15/19 08:00 10:27 12:00 13:00 Temp 36.5 Pulse 68 85 Resp 18 B/P (MAP) 92/58 (69) Pulse Ox 81 100 O2 Delivery Vapotherm Vapotherm High Flow N/C O2 Flow Rate 20.00 10.00 10.00 FiO2 45 45 12/15/19 14:05 Temp 36.5 Pulse 85 Pulse Ox 97 12/15/19 00:00 Intake Total 1736 ml Output Total 775 ml Balance 961 ml Weight (Pounds): 138 Weight (Ounces): 6.0 Weight (Calculated Kilograms): 62.356531 Constitutional: appears stated age, AAO x 3, other Respiratory: No accessory muscle use, No respiratory distress; chest expansion is symmetric, chest is bilaterally symmetric, other (diminished lower lobes bilat; dyspneic with converstation) Cardiovascular: regular rate-rhythm; No JVD; S1 and S2, systolic murmur (grade 4/5 ), click (crisp mechanical S2) Gastrointestional: No tender; soft, round, audible bowel sounds Extremities: other (mild bilat LE swelling), wound (dressing in place to RLE, D&I - not removed; fragile integrity) Neurologic/Psychiatric: grossly intact (moves all extremities) Skin: normal color, warm/dry, other (see above under extremities) Results/Procedures: Labs Laboratory Tests 12/15/19 05:00: White Blood Count 6.2, Red Blood Count 2.68L, Hemoglobin 8.4L, Hematocrit 28L, Mean Corpuscular Volume 105H, Mean Corpuscular Hemoglobin 31, Mean Corpuscular Hemoglobin Concent 30L, Red Cell Distribution Width 14.1, Platelet Count 179, Mean Platelet Volume 10.1, Prothrombin Time 28.7H, INR Comment 2.6H, Sodium Level 135, Potassium Level 5.0, Chloride Level 98, Carbon Dioxide Level 26, Anion Gap 11, Blood Urea Nitrogen 79H, Creatinine 1.60H, Estimat Glomerular Filtration Rate 31, BUN/Creatinine Ratio 49, Glucose Level 140H, Calcium Level 8.7, Procalcitonin 0.06 Microbiology 12/10/19 Influenza Types A,B Antigen (IRINEO) - Final, Complete 12/10/19 Blood Culture - Preliminary, Resulted No growth 12/10/19 Urine Culture - Final, Complete NO GROWTH Laboratory Tests 12/14/19 05:46 12/15/19 05:00 A/P: Assessment: Multi-factorial dyspnea (see below) Acute on chronic systolic CHF Pneumonia - management per Medical Services Advanced valvular heart disease (aortic and mitral): Severe mitral valve stenosis rheumatic valve, severe mitral regurgitation with severe pulmonary hypertension, PASP 65-70 mmHg with biatrial and RV enlargement and dilated IVC. Dr. Parker has discussed with Dr. Page, he recommended medical therapy at this time considering her to be high risk for morbidity and mortality if she undergoes valve surgery. She is not a candidate for mitral clip secondary to her mitral stenosis Was referred once again to Dr. Davila in January 2019 for evaluation for possible TMVR. Decided to continue with conservative management at this time. patient and family have declined to go to [place] for further evaluation History of aortic valve replacement in 1998 with metallic valve on Coumadin therapy with therapeutic INR, monitored by Dr. Prabhakar. Echo of Aug 2019: EF 35-40%, reduced RV systolic function. Ventricular septum contour shows diastolic flattening and systolic flattening, LA dilated measuring 8.3cm, RA dilated. MV has calcified annulus and severe stenosis, mod to severe MR, mechanical prosthetic AV present, severe TR, PA 65-70mmHg Permanent atrial fibrillation. [id number] Score of 6, maintained on Coumadin, managed as outpt by Dr. Prabhakar Peripheral vascular disease: patient has venous insufficiency on the right side that required ablation; peripheral angiogram May 2017, intervention to the anterior tibial artery, the wound has healed then developed a new ulcer after a trauma. Did balloon angioplasty to the right anterior tibial artery proximal portion has significant improvement the distal portion is occluded and did not improve, the posterior tibial artery and peroneal arteries were occluded with no collaterals in that area. The right SFA has multiple segment of moderate to severe stenosis, balloon angioplasty to the mid SFA with good results. Abdominal aorta has moderate disease, the left SFA has mild to moderate disease down to the trifurcation. Patient has nonhealing wounds to right ankle, underwent peripheral angiogram with Dr. Arias on July 08, 2019 with right SFA and anterior tibial artery angioplasty with good results. Patient reports one to anterior iraheta is healing, however continues to have worsening of the right ankle one, appear venous in nature, managed by Dr Waters (wound) and Dr Parker (PAD) H/O implantation of PARLIAMENTARY COUNSEL-D-D in August 2012, last interrogation was done on November 25, 2019 showing device has reached CHERRY - plan for pulse generator change out is as per Dr. Parker Card cath of Sep 2014: Coronary artery disease, small vessel disease, nonobstructive disease, the prosthetic valve was functioning normally, pulmonary artery pressure was 50/26, pulmonary capillary wedge pressure 35, right ventricular pressure 53/17. Stress test done in December 2016 showing no ischemia or infarction, EF 41 percent, continue to monitor Carotid stenosis, continue to monitor, [facility] by [facility]. Abdominal aortic aneurysm (reportedly, 4.6 cm shanita) and PAD and carotid art disease monitor by [facility] CKD-4 Hypertension - currently somewhat low BP Anemia of undetermined etiology - management per medical services Hyperlipidemia Right hip fracture in May 2018 status post surgical repair, recovered well. Plan: * Complex management due to multiple CV comorbidities * Monitor INR and adjust warfarin * Continue diuretics * residential prognosis does not appear good KIKE VILLAGRAN MD FACP FAC CCDS Dec 15, 2019 14:25
--- NOTE | 2019-12-15 14:53 | Progress Note - Hospitalist ---
Subjective HPI/CC On Admission Date Seen by Provider: Dec 15, 2019 Time Seen by Provider: 11:00 Pt is an 84yoCF with a PMH of CHF, CAD, PAD, aortic valve replacement who presented to the emergency department due to extreme shortness of breath. She states that she did well after getting discharged 2 weeks ago but over the past week got more short of breath. She was seen in the ER and started on antibiotics two days ago and discharged home. She continued those but then yesterday afternoon got very short of breath. EMS was called. She arrived in moderate respiratory distress and was given a breathing treatment which helped her symptoms. She was found to have pneumonia and admitted for IV abx after failing outpatient treatment. She is pending COVID testing as well. Subjective/Events-last exam she is tired this morning. She denies feeling short of breath. She says she is occasionally coughing. She denies any fevers or chills. She denies any chest pain. She reports some abdominal discomfort. She had an episode of nausea and vomiting this morning. She had a bowel movement this morning. Focused Exam Time of Focused Exam: 22:58 Objective Exam Vital Signs Vital Signs Date Time Temp Pulse Resp B/P (MAP) Pulse Ox O2 Delivery O2 Flow Rate FiO2 12/15/19 14:05 36.5 85 97 12/15/19 12:00 18 92/58 (69) High Flow N/C 10.00 12/15/19 10:27 45 Capillary Refill : Less Than 3 SecondsLess Than 3 Seconds General Appearance: Chronically ill, Thin Respiratory: No Respiratory Distress, Crackles, Decreased Breath Sounds Cardiovascular: Regular Rate, Rhythm, No Edema, No Murmur Gastrointestinal: Normal Bowel Sounds, Soft, Tenderness Extremity: Normal Inspection, Non Tender, No Pedal Edema Neurologic/Psychiatric: Motor Weakness, Other (sleeping but easily arousable, appears fatigued) Skin: Normal Color, Warm/Dry Results/Procedures Lab Laboratory Tests 12/15/19 05:00 Patient resulted labs reviewed. Imaging: Reviewed Imaging Report Assessment/Plan Assessment and Plan Assess & Plan/Chief Complaint Acute on Chronic Respiratory Failure pleural effusion procalcitonin normal 2 discontinue antibiotics Continue Steroids transition off of Vapotherm to nasal cannula COVID negative Pulmonology following, appreciate assistance no plan for thoracentesis continue diuretics HFrEF CAD Aortic Valve Replacement Mitral Valve stenosis pAF Transition to Bumex INR 2.6 Cardiology consulted, appreciate recs Needs pacemaker replaced when more stable per primary recovery operator CKD creatinine 1.6, near baseline continue to monitor Hypothyroidism Continue home meds Restless leg syndrome cont Requip Constipation continue bowel regimen DVT prophylaxis: Already receiving therapeutic anticoagulation Diagnosis/Problems Diagnosis/Problems (1) Acute on chronic respiratory failure with hypoxemia Status: Acute (2) Pleural effusion Status: Acute (3) Acute exacerbation of congestive heart failure Status: Acute Qualifiers: Heart failure type: systolic Qualified Codes: I50.23 - Acute on chronic systolic (congestive) heart failure (4) CKD (chronic kidney disease) Status: Chronic (5) Poor prognosis Status: Acute (6) Advanced age Status: Chronic (7) Mechanical heart valve present Status: Chronic (8) Anticoagulated on Coumadin Status: Chronic Clinical Quality Measures DVT/VTE Risk/Contraindication: Risk Factor Score Per Nursin RFS Level Per Nursing on Admit: 4+=Very High KATHERINE BRADFORD MD Dec 15, 2019 14:53
[2019-12-15] MEDS ORDERED: FUROSEMIDE 40 MG/4 ML INJ (LASIX) IVP SCH (17:00)
[2019-12-15] MEDS: BUMETANIDE 1 MG/4 ML (BUMEX) VIAL IV SCH (18:38)
[2019-12-15] MEDS: warFARin 2 MG (COUMADIN) TAB PO SCH (18:39)
[2019-12-15] MEDS: rOPINIRole 1 MG (REQUIP) TABLET PO SCH (22:05)
[2019-12-15] MEDS: MELATONIN 3 MG TABLET PO SCH (22:06)
[2019-12-15] MEDS: LORazepam 0.5 MG (ATIVAN) TABLET PO PRN (23:12)
[2019-12-16] VITALS: BP 106/49
[2019-12-16] MEDS: ALBUTEROL/IPRATROP (COMBIVENT RESPIMAT) 4 GM INHALER IH SCH ×6 (01:50→22:08)
[2019-12-16 03:45] VITALS: BP 106/51
[2019-12-16] MEDS: ACETAMINOPHEN 325 MG TABLET PO PRN ×2 (03:59→12:25)
[2019-12-16 05:38] LABS: MEAN PLATELET VOLUME 10.2 FL (7.4-10.4); RED CELL DISTRIBUTION WIDTH 13.9 % (10.0-14.5); WHITE BLOOD COUNT 5.5 10^3/uL (4.3-11.0)
[2019-12-16 05:48] LABS: INR 2.4 (0.8-1.4); POTASSIUM 5.7 MMOL/L (3.6-5.0); PROTHROMBIN TIME PATIENT 27.1 SEC (12.2-14.7)
[2019-12-16 05:49] LABS: CALCIUM 8.7 MG/DL (8.5-10.1)
[2019-12-16 05:54] LABS: CREATININE SERUM 1.82 MG/DL (0.60-1.30)
[2019-12-16] MEDS: KCL 10 MEQ TAB (MICRO K) PO SCH (06:30)
[2019-12-16] MEDS: methylPREDNISolone 40 MG/ML (Solu-MEDROL) VIAL IV SCH ×3 (06:32→17:31)
[2019-12-16] MEDS: BUMETANIDE 1 MG/4 ML (BUMEX) VIAL IV SCH (06:32)
--- NOTE | 2019-12-16 07:18 | Pulmonary Progress Note ---
Subjective Time Seen by a Provider: 07:13 Subjective/Events-last exam Off Vapotherm and tolerating NC. Sepsis Event Evaluation Height, Weight, BMI Height: 5'6.00" Weight: 138lbs. 6.0oz. 62.883294zl; 21.51 BMI Method:Estimated Focused Exam Time of Focused Exam: 22:58 Exam Exam Vital Signs Date Time Temp Pulse Resp B/P (MAP) Pulse Ox O2 Delivery O2 Flow Rate FiO2 12/16/19 06:59 92 High Flow N/C 6.00 12/16/19 03:45 36.8 86 22 106/51 (69) 92 High Flow N/C 6.00 12/16/19 01:50 94 High Flow N/C 6.00 12/16/19 01:00 85 12/16/19 00:00 37.0 67 18 106/49 (68) 95 High Flow N/C 7.00 12/15/19 21:38 95 High Flow N/C 7.00 12/15/19 20:15 95 High Flow N/C 7.00 12/15/19 20:00 37.1 90 24 106/54 (71) 97 Vapotherm 6.00 12/15/19 19:00 86 12/15/19 18:29 98 High Flow N/C 7.00 12/15/19 16:09 36.6 80 18 110/63 (79) 100 High Flow N/C 7.00 12/15/19 14:56 100 High Flow N/C 10.00 12/15/19 14:30 86 108/69 (82) 12/15/19 14:05 36.5 85 97 12/15/19 13:00 85 12/15/19 12:00 36.5 68 18 92/58 (69) 100 High Flow N/C 10.00 12/15/19 10:27 81 Vapotherm 10.00 45 12/15/19 08:00 Vapotherm 20.00 45 12/15/19 08:00 36.5 89 18 134/69 (90) 96 Vapotherm 10.00 45.00 I & O 12/16/19 07:00 Intake Total 1330 ml Output Total 700 ml Balance 630 ml Height & Weight Height: 5'6.00" Weight: 138lbs. 6.0oz. 62.705623xs; 21.51 BMI Method:Estimated General Appearance: No Apparent Distress, Chronically ill HEENT: Moist Mucous Membranes; No Scleral Icterus (L), No Scleral Icterus (R) Respiratory: Decreased Breath Sounds; No Wheezing; Other (on Vapotherm, work of breath less ) Cardiovascular: Regular Rate, Rhythm, No Murmur Capillary Refill: Less Than 3 Seconds Peripheral Pulses: 2+ Radial Pulses (R), 2+ Radial Pulses (L) Gastrointestinal: normal bowel sounds, non tender, soft Extremity: Non Tender, Pedal Edema, Swelling Neurologic/Psychiatric: Alert, Oriented x3, Normal Mood/Affect Skin: Normal Color, Warm/Dry Results Lab Laboratory Tests 12/15/19 05:00 12/16/19 05:10 Assessment/Plan Assessment/Plan Pneumonia - resolving -s/p cefepime -Vasquez cultures - neg Acute on chronic respiratory failure -steroids -She is off Vapotherm and tolerating NC. -COVID is negative - CHF with pulmonary edema and pleural effusions -Continue bumex -EF 35-40% -Pt is fully anticoagulated. I would not recommend thoracentesis at this time. CAD Aortic valve replacement MV stenosis Overall prognosis is guarded consider home hospice. ANT LOPEZ DO Dec 16, 2019 07:18
[2019-12-16 08:00] VITALS: BP 103/56
[2019-12-16] MEDS: DIGOXIN 0.125 MG (LANOXIN) TAB PO SCH (08:31)
[2019-12-16] MEDS: SACUBITRIL/VALSARTAN 24/26 MG (ENTRESTO) TABLET PO SCH ×2 (08:31→21:30)
[2019-12-16] MEDS: LEVOTHYROXINE 100 MCG (LEVOTHROID) TAB PO SCH (08:31)
[2019-12-16] MEDS: rOPINIRole 0.25 MG (REQUIP) TAB PO SCH (08:31)
--- NOTE | 2019-12-16 08:56 | Physical Therapy Daily Note ---
PT Daily Note-Current Subjective Patient in bed pre tx, agrees to PT, has no complaints of pain, very lethargic. Appearance Patient in recliner post tx with nurse call, phone, tray, all needs met, legs elevated. Mental Status Patient Orientation: Person, Place, Situation Attachments: Oxygen, Gomes Catheter 5L of O2 nasal canula. Transfers SCALE: Activities may be completed with or without assistive devices. 4-Buummnskyl-argyjqn completes the activity by him/herself with no assistance from a helper. 5-Set-up or Clean-up Assistance-helper sets up or cleans up; patient completes activity. [place] assists only prior to or following the activity. 4-Supervision or Touching Assistance-helper provides verbal cues and/or touching/steadying and/or contact guard assistance as patient completes activity. Assistance may be provided throughout the activity or intermittently. 3-Partial/Moderate Assistance-helper does LESS THAN HALF the effort. [place] lifts, holds or supports trunk or limbs, but provides less than half the effort. 2-Substantial/Maximal Assistance-helper does MORE THAN HALF the effort. [place] lifts or holds trunk or limbs and provides more than half the effort. 6-Byuileuja-stwphj does ALL the effort. Patient does none of the effort to complete the activity. Or, the assistance of 2 or more helpers is required for the patient to complete the activity. If activity was not attempted, code reason: 7-Patient Refused. 9-Not Applicable-not attempted and the patient did not perform the activity before the current illness, exacerbation or injury. 10-Not Attempted due to Environmental Limitations-(lack of equipment, weather restraints, etc.). 88-Not Attempted due to Medical Conditions or Safety Concerns. Roll Left & Right (QC): 4 Lying to Sitting/Side of Bed(Q: 4 Sit to Stand (QC): 4 Chair/Wgi-bx-Sffpm Xfer(QC): 4 CGA, occasional cues for positioning and safety Weight Bearing Right Lower Extremity: Right Weight Bearing/Tolerated Left Lower Extremity: Left Weight Bearing/Tolerated Gait Training Distance: 3' Gait Persons Needed: 1 Gait Assistive Device: FWW slow, steady, no SOB Exercises Seated Therapy Exercises: Ankle pumps, Long arc quads, Hip flexion Seated Reps: 15 Treatments bed mobility and transfers, ambulation, LE exercise Assessment Current Status: Fair Progress no SOB with activity this morning PT [place] Pumping Supervisor Goals Assisted Goals PT [place] Pumping Supervisor Goals Time Frame: Dec 19, 2019 Roll Left & Right (QC): 6 Sit to Lying (QC): 6 Lying-Sitting on Side/Bed(QC): 6 Sit to Stand (QC): 6 Chair/Dlf-nw-Vrloe Xfer(QC): 6 Toilet Transfer (QC): 6 Car Transfer (QC): 5 Does the Patient Walk: Yes Walk 10 feet (QC): 6 Walk 50ft with 2 Turns (QC): 6 Walk 150 ft (QC): 6 Walking 10ft on Uneven Surface: 5 1 Step (curb) (QC): 4 4 Steps (QC): 4 12 Steps (QC): 9 Picking up an Object (QC): 9 Does the Pt use WC or Scooter?: No Type: N/A Type: N/A PT Plan Problem List Problem List: Activity Tolerance, Functional Strength, Safety, Balance, Gait, Transfer, Bed Mobility, ROM Treatment/Plan Treatment Plan: Continue Plan of Care Treatment Plan: Bed Mobility, Education, Functional Activity Rick, Functional Strength, Gait, Safety, Therapeutic Exercise, Transfers Treatment Duration: Dec 19, 2019 Frequency: 6 times per week Estimated Hrs Per Day: .25 hour per day Patient and/or Family Agrees t: Yes Safety Risks/Education Patient Education: Gait Training, Transfer Techniques, Correct Positioning, Safety Issues Teaching Recipient: Patient Teaching Methods: Demonstration, Discussion Response to Teaching: Reinforcement Needed Time/GCodes Time In: 0814 Time Out: 0830 Total Billed Treatment Time: 16 Total Billed Treatment 1 visit FA DARWIN TORRES PT Dec 16, 2019 08:56
--- NOTE | 2019-12-16 09:11 | Progress Note - Cardiology ---
Cardiology SOAP Progress Note Subjective: Sitting up in a chair at the bedside. States she feels "achy all over". No c/o CP or palpitations. SOB improving. Objective: I&O/Vital Signs 12/15/19 12/16/19 12/16/19 12/16/19 21:38 00:00 01:00 01:50 Temp 37.0 Pulse 67 85 Resp 18 B/P (MAP) 106/49 (68) Pulse Ox 95 95 94 O2 Delivery High Flow N/C High Flow N/C High Flow N/C O2 Flow Rate 7.00 7.00 6.00 12/16/19 12/16/19 12/16/19 12/16/19 03:45 06:59 07:00 08:00 Temp 36.8 36.7 Pulse 86 85 85 Resp 22 18 B/P (MAP) 106/51 (69) 103/56 (72) Pulse Ox 92 92 93 O2 Delivery High Flow N/C High Flow N/C High Flow N/C O2 Flow Rate 6.00 6.00 6.00 12/16/19 00:00 Intake Total 1210 ml Output Total 500 ml Balance 710 ml Weight (Pounds): 138 Weight (Ounces): 6.0 Weight (Calculated Kilograms): 62.497398 Constitutional: appears stated age, AAO x 3, other Respiratory: No accessory muscle use, No respiratory distress; chest expansion is symmetric, chest is bilaterally symmetric, other (diminished lower lobes bilat; dyspneic with converstation) Cardiovascular: regular rate-rhythm; No JVD; S1 and S2, systolic murmur (grade 4/5 ), click (crisp mechanical S2) Gastrointestional: No tender; soft, round, audible bowel sounds Extremities: other (mild bilat LE swelling), wound (dressing in place to RLE, D&I - not removed; fragile integrity) Neurologic/Psychiatric: grossly intact (moves all extremities) Skin: normal color, warm/dry, other (see above under extremities) Results/Procedures: Labs Laboratory Tests 12/16/19 05:10: White Blood Count 5.5, Red Blood Count 2.85L, Hemoglobin 9.0L, Hematocrit 30L, Mean Corpuscular Volume 106H, Mean Corpuscular Hemoglobin 32, Mean Corpuscular Hemoglobin Concent 30L, Red Cell Distribution Width 13.9, Platelet Count 187, Mean Platelet Volume 10.2, Prothrombin Time 27.1H, INR Comment 2.4H, Sodium Level 133L, Potassium Level 5.7H, Chloride Level 98, Carbon Dioxide Level 25, Anion Gap 10, Blood Urea Nitrogen 96H, Creatinine 1.82H, Estimat Glomerular Filtration Rate 27, BUN/Creatinine Ratio 53, Glucose Level 147H, Calcium Level 8.7 12/16/19 08:34: Potassium Level 5.7H Microbiology 12/10/19 Influenza Types A,B Antigen (IRINEO) - Final, Complete 12/10/19 Blood Culture - Preliminary, Resulted No growth 12/10/19 Urine Culture - Final, Complete NO GROWTH Laboratory Tests 12/15/19 05:00 12/16/19 05:10 12/16/19 08:34 A/P: Assessment: Multi-factorial dyspnea (see below) Acute on chronic systolic CHF Pneumonia - management per Medical Services Advanced valvular heart disease (aortic and mitral): Severe mitral valve stenosis rheumatic valve, severe mitral regurgitation with severe pulmonary hypertension, PASP 65-70 mmHg with biatrial and RV enlargement and dilated IVC. Dr. Parker has discussed with Dr. Page, he recommended medical therapy at this time considering her to be high risk for morbidity and mortality if she undergoes valve surgery. She is not a candidate for mitral clip secondary to her mitral stenosis Was referred once again to Dr. Davila in January 2019 for evaluation for possible TMVR. Decided to continue with conservative management at this time. patient and family have declined to go to [place] for further evaluation History of aortic valve replacement in 1998 with metallic valve on Coumadin therapy with therapeutic INR, monitored by Dr. Prabhakar as an out pt Echo of Aug 2019: EF 35-40%, reduced RV systolic function. Ventricular septum contour shows diastolic flattening and systolic flattening, LA dilated measuring 8.3cm, RA dilated. MV has calcified annulus and severe stenosis, mod to severe MR, mechanical prosthetic AV present, severe TR, PA 65-70mmHg Permanent atrial fibrillation. [id number] Score of 6, maintained on Coumadin, managed as outpt by Dr. Prabhakar Peripheral vascular disease: patient has venous insufficiency on the right side that required ablation; peripheral angiogram May 2017, intervention to the anterior tibial artery, the wound has healed then developed a new ulcer after a trauma. Did balloon angioplasty to the right anterior tibial artery proximal portion has significant improvement the distal portion is occluded and did not improve, the posterior tibial artery and peroneal arteries were occluded with no collaterals in that area. The right SFA has multiple segment of moderate to severe stenosis, balloon angioplasty to the mid SFA with good results. Abdominal aorta has moderate disease, the left SFA has mild to moderate disease down to the trifurcation. Patient has nonhealing wounds to right ankle, underwent peripheral angiogram with Dr. Arias on July 08, 2019 with right SFA and anterior tibial artery angioplasty with good results. Patient reports one to anterior iraheta is healing, however continues to have worsening of the right ankle one, appear venous in nature, managed by Dr Waters (wound) and Dr Parker (PAD) H/O implantation of LEAD JAVA SOFTWARE ENGINEER-D-D in August 2012, last interrogation was done on November 25, 2019 showing device has reached CHERRY - plan for pulse generator change out is as per Dr. Parker Card cath of Sep 2014: Coronary artery disease, small vessel disease, nonobstructive disease, the prosthetic valve was functioning normally, pulmonary artery pressure was 50/26, pulmonary capillary wedge pressure 35, right ventricular pressure 53/17. Stress test done in December 2016 showing no ischemia or infarction, EF 41 percent, continue to monitor Carotid stenosis, continue to monitor, followed by [facility]. Abdominal aortic aneurysm (reportedly, 4.6 cm shanita) and PAD and carotid art disease monitor by [facility] CKD-4 Hypertension - currently somewhat low BP Anemia of undetermined etiology - management per medical services Hyperlipidemia Right hip fracture in May 2018 status post surgical repair, recovered well. 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
[2019-12-16] MEDS ORDERED: SOD POLYSTERENE 15 GM/60 ML (KAYEXALATE) UNIT DOSE PO ONE (09:15)
[2019-12-16] MEDS ORDERED: D5 LR IV SOLUTION 1,000 ML IV SCH (10:15)
--- NOTE | 2019-12-16 10:28 | NUR ---
PALLIATIVE CARE RN had a long discussion with patient regarding the changes she has had in her health status over the last years and now the more recent recurrent hospitalizations and worsening of her heart disease in the last few months. She seemed to understand that she is coming to the end of her life just based on how she feels currently. She reports being very weak and tired. Not sleeping well at night. Hospice was discussed in depth and I explained what the benefits would be with hospice. She just wanted to make sure that this was discussed with her son and daughter, Jean-Claude and Lisa. I did have a chance to talk to Lisa and explained the situation to her. Options given for the hospice options and suggested that she call the various agencies and or get word of mouth recommendations. She appreciated the information. After speaking with Dr. Man it is learned that he is fearful that patient is closer to the EOL than thought...due to her worsening Kidney functions along with her already. He spoke to patient and Lisa about this as well. It is believed that the decision will be for hospice discharge likely tomorrow.
--- NOTE | 2019-12-16 12:27 | Progress Note - Hospitalist ---
Subjective HPI/CC On Admission Date Seen by Provider: Dec 16, 2019 Time Seen by Provider: 09:45 Pt is an 84yoCF with a PMH of CHF, CAD, PAD, aortic valve replacement who presented to the emergency department due to extreme shortness of breath. She states that she did well after getting discharged 2 weeks ago but over the past week got more short of breath. She was seen in the ER and started on antibiotics two days ago and discharged home. She continued those but then yesterday afternoon got very short of breath. EMS was called. She arrived in moderate respiratory distress and was given a breathing treatment which helped her symptoms. She was found to have pneumonia and admitted for IV abx after failing outpatient treatment. She is pending COVID testing as well. Subjective/Events-last exam she is feeling very weak this morning. She denies feeling short of breath. She is not having any fevers. She is not in any pain. We discussed the trajectory of her long-term illnesses and the difficulty in managing her multiple comorbidities. We discussed the possibility of hospice at home and she is agre eable to this if her family is on board. I also discussed the plan with her daughter, Cecilia, and she plans to discuss this with the rest of the family. Focused Exam Time of Focused Exam: 22:58 Objective Exam Vital Signs Vital Signs Date Time Temp Pulse Resp B/P (MAP) Pulse Ox O2 Delivery O2 Flow Rate FiO2 12/16/19 10:15 92 High Flow N/C 6.00 12/16/19 08:00 36.7 85 18 103/56 (72) 12/15/19 10:27 45 Capillary Refill : Less Than 3 SecondsLess Than 3 Seconds General Appearance: Chronically ill, Thin, Other (fatigue) Respiratory: Crackles, Decreased Breath Sounds, Other (tachypnea) Cardiovascular: Regular Rate, Rhythm, Other (mechanical heart sounds) Gastrointestinal: Normal Bowel Sounds, Non Tender, Soft Extremity: Normal Inspection, Non Tender, No Pedal Edema Neurologic/Psychiatric: Alert, Depressed Affect Skin: Normal Color, Warm/Dry Results/Procedures Lab Laboratory Tests 12/16/19 05:10 12/16/19 08:34 Patient resulted labs reviewed. Imaging: Reviewed Imaging Report Assessment/Plan Assessment and Plan Assess & Plan/Chief Complaint Acute on Chronic Respiratory Failure Pleural effusion Acute kidney injury superimposed on chronic kidney disease Poor prognosis Advanced age Continue steroids Pulmonology following, appreciate assistance no plan for thoracentesis BUN 96, creatinine 1.82, worsening discontinue diuretics Begin gentle IV fluids considering home hospice HFrEF CAD Aortic Valve Replacement Mitral Valve stenosis pAF INR 2.4 Cardiology consulted, appreciate recs Needs pacemaker replaced when more stable per primary corsets salesperson Hypothyroidism Continue home meds Restless leg syndrome cont Requip Constipation continue bowel regimen DVT prophylaxis: Already receiving therapeutic anticoagulation Diagnosis/Problems Diagnosis/Problems (1) Acute on chronic respiratory failure with hypoxemia Status: Acute (2) Pleural effusion Status: Acute (3) Acute exacerbation of congestive heart failure Status: Acute Qualifiers: Heart failure type: systolic Qualified Codes: I50.23 - Acute on chronic systolic (congestive) heart failure (4) CKD (chronic kidney disease) Status: Chronic (5) Poor prognosis Status: Acute (6) Advanced age Status: Chronic (7) Mechanical heart valve present Status: Chronic (8) Anticoagulated on Coumadin Status: Chronic Clinical Quality Measures DVT/VTE Risk/Contraindication: Risk Factor Score Per Nursin RFS Level Per Nursing on Admit: 4+=Very High KATHERINE BRADFORD MD Dec 16, 2019 12:27
--- NOTE | 2019-12-16 14:17 | Occ Therapy Progress Note ---
Therapy Progress Note Attempted OT treatment this pm. Spoke with RN who states pt has been up most of the morning and recently returned to bed to rest. RN states pt is fatigued and requests to allow her to rest at this time. RN states pt may go home on hospice tomorrow. Will continue to monitor. KAN FLEMING OT Dec 16, 2019 14:17
--- NOTE | 2019-12-16 15:16 | Progress Note - Cardiology ---
Cardiology SOAP Progress Note Subjective: Notes gen malaise, weakness and tiredness Poor stamina Feel heart beat to rapid at times, luiz after mild activity No focal weakness No n/v/d Objective: I&O/Vital Signs 12/16/19 12/16/19 12/16/19 12/16/19 03:45 06:59 07:00 08:00 Temp 36.8 36.7 Pulse 86 85 85 Resp 22 18 B/P (MAP) 106/51 (69) 103/56 (72) Pulse Ox 92 92 93 O2 Delivery High Flow N/C High Flow N/C High Flow N/C O2 Flow Rate 6.00 6.00 6.00 12/16/19 12/16/19 12/16/19 08:30 10:15 13:00 Pulse 90 Pulse Ox 92 O2 Delivery Nasal Cannula High Flow N/C O2 Flow Rate 6.00 12/16/19 00:00 Intake Total 1210 ml Output Total 500 ml Balance 710 ml Weight (Pounds): 138 Weight (Ounces): 6.0 Weight (Calculated Kilograms): 62.154418 Constitutional: appears stated age, AAO x 3, other Respiratory: No accessory muscle use, No respiratory distress; chest expansion is symmetric, chest is bilaterally symmetric, other (diminished lower lobes bilat; dyspneic with converstation) Cardiovascular: regular rate-rhythm; No JVD; S1 and S2, systolic murmur (grade 4/5 ), click (crisp mechanical S2) Gastrointestional: No tender; soft, round, audible bowel sounds Extremities: other (mild bilat LE swelling), wound (dressing in place to RLE, D&I - not removed; fragile integrity) Neurologic/Psychiatric: grossly intact (moves all extremities) Skin: normal color, warm/dry, other (see above under extremities) Results/Procedures: Labs Laboratory Tests 12/16/19 05:10: White Blood Count 5.5, Red Blood Count 2.85L, Hemoglobin 9.0L, Hematocrit 30L, Mean Corpuscular Volume 106H, Mean Corpuscular Hemoglobin 32, Mean Corpuscular Hemoglobin Concent 30L, Red Cell Distribution Width 13.9, Platelet Count 187, Mean Platelet Volume 10.2, Prothrombin Time 27.1H, INR Comment 2.4H, Sodium Level 133L, Potassium Level 5.7H, Chloride Level 98, Carbon Dioxide Level 25, Anion Gap 10, Blood Urea Nitrogen 96H, Creatinine 1.82H, Estimat Glomerular Filtration Rate 27, BUN/Creatinine Ratio 53, Glucose Level 147H, Calcium Level 8.7 12/16/19 08:34: Potassium Level 5.7H Microbiology 12/10/19 Influenza Types A,B Antigen (IRINEO) - Final, Complete 12/10/19 Blood Culture - Preliminary, Resulted No growth 12/10/19 Urine Culture - Final, Complete NO GROWTH Laboratory Tests 12/15/19 05:00 12/16/19 05:10 12/16/19 08:34 A/P: Assessment: Multi-factorial dyspnea (see below) Acute on chronic systolic CHF Pneumonia - management per Medical Services Advanced valvular heart disease (aortic and mitral): Severe mitral valve stenosis rheumatic valve, severe mitral regurgitation with severe pulmonary hypertension, PASP 65-70 mmHg with biatrial and RV enlargement and dilated IVC. Dr. Parker has discussed with Dr. Page, he recommended medical therapy at this time considering her to be high risk for morbidity and mortality if she undergoes valve surgery. She is not a candidate for mitral clip secondary to her mitral stenosis Was referred once again to Dr. Davila in January 2019 for evaluation for possible TMVR. Decided to continue with conservative management at this time. patient and family have declined to go to [place] for further evaluation History of aortic valve replacement in 1998 with metallic valve on Coumadin therapy with therapeutic INR, monitored by Dr. Prabhakar as an out pt Echo of Aug 2019: EF 35-40%, reduced RV systolic function. Ventricular septum contour shows diastolic flattening and systolic flattening, LA dilated measuring 8.3cm, RA dilated. MV has calcified annulus and severe stenosis, mod to severe MR, mechanical prosthetic AV present, severe TR, PA 65-70mmHg Permanent atrial fibrillation. [id number] Score of 6, maintained on Coumadin, managed as outpt by Dr. Prabhakar Peripheral vascular disease: patient has venous insufficiency on the right side that required ablation; peripheral angiogram May 2017, intervention to the anterior tibial artery, the wound has healed then developed a new ulcer after a trauma. Did balloon angioplasty to the right anterior tibial artery proximal portion has significant improvement the distal portion is occluded and did not improve, the posterior tibial artery and peroneal arteries were occluded with no collaterals in that area. The right SFA has multiple segment of moderate to severe stenosis, balloon angioplasty to the mid SFA with good results. Abdominal aorta has moderate disease, the left SFA has mild to moderate disease down to the trifurcation. Patient has nonhealing wounds to right ankle, underwent peripheral angiogram with Dr. Arias on July 08, 2019 with right SFA and anterior tibial artery angioplasty with good results. Patient reports one to anterior iraheta is healing, however continues to have worsening of the right ankle one, appear venous in nature, managed by Dr Waters (wound) and Dr Parker (PAD) H/O implantation of KAIAWHINA-D-D in August 2012, last interrogation was done on November 25, 2019 showing device has reached CHERRY - plan for pulse generator change out is as per Dr. Parker Card cath of Sep 2014: Coronary artery disease, small vessel disease, nonobstructive disease, the prosthetic valve was functioning normally, pulmonary artery pressure was 50/26, pulmonary capillary wedge pressure 35, right ventricular pressure 53/17. Stress test done in December 2016 showing no ischemia or infarction, EF 41 percent, continue to monitor Carotid stenosis, continue to monitor, followed by [facility]. Abdominal aortic aneurysm (reportedly, 4.6 cm shanita) and PAD and carotid art disease monitor by [facility] CKD-4 Hypertension - currently somewhat low BP Anemia of undetermined etiology - management per medical services Hyperlipidemia Right hip fracture in May 2018 status post surgical repair, recovered well. Plan: * Complex management due to multiple CV comorbidities * Poor intermission coordinator prognosis. She and family have decided upon Hospice today. I had a long and detailed discussion with her daughter on the phone twice today. I also called Dr Parker, her regular forest fire management officer, and discussed the case with him. He recommends that, given that she is on Hospice, device replacement is not to be undertaken. I agree. I discussed this with the pt and her daughter. They agree * INR is dropping. Increase warfarin and monitor INR * Worsening renal function - reduce diuretics * Hyperkalemia - treat with jeriyexalaKIKE Estevez MD FACP [facility] Dec 16, 2019 15:16
[2019-12-16 16:00] VITALS: BP 93/48
[2019-12-16] MEDS: NS IV 1000 ML 1,000 ML IV SCH (17:26)
[2019-12-16] MEDS ORDERED: warFARin 2 MG (COUMADIN) TAB PO SCH (18:00)
[2019-12-16] MEDS ORDERED: warFARin 2.5 MG (COUMADIN) TAB PO SCH (18:00)
[2019-12-16] MEDS: rOPINIRole 1 MG (REQUIP) TABLET PO SCH (20:06)
[2019-12-16] MEDS: MELATONIN 3 MG TABLET PO SCH (20:06)
[2019-12-16 21:30] VITALS: BP 88/53
[2019-12-17 00:26] VITALS: BP 104/53
[2019-12-17] MEDS: ALBUTEROL/IPRATROP (COMBIVENT RESPIMAT) 4 GM INHALER IH SCH ×4 (01:42→14:31)
[2019-12-17] MEDS: methylPREDNISolone 40 MG/ML (Solu-MEDROL) VIAL IV SCH ×2 (01:52→06:39)
[2019-12-17 04:06] VITALS: BP 105/47
[2019-12-17 05:49] LABS: HEMOGLOBIN 9.6 G/DL (11.5-16.0); MEAN PLATELET VOLUME 10.4 FL (7.4-10.4); RED CELL DISTRIBUTION WIDTH 14.3 % (10.0-14.5); WHITE BLOOD COUNT 5.5 10^3/uL (4.3-11.0)
[2019-12-17 06:01] LABS: POTASSIUM 5.2 MMOL/L (3.6-5.0)
[2019-12-17 06:02] LABS: CALCIUM 8.3 MG/DL (8.5-10.1)
[2019-12-17 06:06] LABS: CREATININE SERUM 1.88 MG/DL (0.60-1.30)
[2019-12-17 06:10] LABS: INR 2.2 (0.8-1.4)
[2019-12-17] MEDS: LEVOTHYROXINE 100 MCG (LEVOTHROID) TAB PO SCH (06:39)
[2019-12-17] MEDS: NS IV 1000 ML 1,000 ML IV SCH (06:50)
--- NOTE | 2019-12-17 07:16 | Pulmonary Progress Note ---
Subjective Date Seen by a Provider: Dec 17, 2019 Time Seen by a Provider: 07:15 Subjective/Events-last exam Pt appears to be doing better respiratory barton. Sepsis Event Evaluation Height, Weight, BMI Height: 5'6.00" Weight: 138lbs. 6.0oz. 62.202677dc; 21.51 BMI Method:Estimated Focused Exam Time of Focused Exam: 22:58 Exam Exam Vital Signs Date Time Temp Pulse Resp B/P (MAP) Pulse Ox O2 Delivery O2 Flow Rate FiO2 12/17/19 06:24 98 High Flow N/C 6.00 12/17/19 04:06 36.7 89 20 105/47 (66) 95 High Flow N/C 6.00 12/17/19 01:42 94 High Flow N/C 6.00 12/17/19 01:00 85 12/17/19 00:26 37.0 85 18 104/53 (70) 97 High Flow N/C 6.00 12/16/19 22:08 94 High Flow N/C 6.00 12/16/19 21:30 88/53 (65) 12/16/19 20:20 High Flow N/C 6.00 12/16/19 20:00 36.8 85 18 96 High Flow N/C 6.00 12/16/19 19:00 84 12/16/19 16:00 36.8 85 20 93/48 (63) 96 High Flow N/C 6.00 12/16/19 13:00 90 12/16/19 10:15 92 High Flow N/C 6.00 12/16/19 08:30 Nasal Cannula 12/16/19 08:00 36.7 85 18 103/56 (72) 93 High Flow N/C 6.00 I & O 12/17/19 07:00 Intake Total 2015 ml Output Total 675 ml Balance 1340 ml Height & Weight Height: 5'6.00" Weight: 138lbs. 6.0oz. 62.479697iz; 21.51 BMI Method:Estimated General Appearance: Chronically ill, Thin, Other (fatigue) HEENT: Moist Mucous Membranes; No Scleral Icterus (L), No Scleral Icterus (R) Respiratory: Crackles, Decreased Breath Sounds, Other (tachypnea) Cardiovascular: Regular Rate, Rhythm, Other (mechanical heart sounds) Capillary Refill: Less Than 3 Seconds Peripheral Pulses: 2+ Radial Pulses (R), 2+ Radial Pulses (L) Gastrointestinal: normal bowel sounds, non tender, soft Extremity: Normal Inspection, Non Tender, No Pedal Edema Neurologic/Psychiatric: Alert, Depressed Affect Skin: Normal Color, Warm/Dry Results Lab Laboratory Tests 12/16/19 05:10 12/16/19 08:34 12/17/19 05:25 Assessment/Plan Assessment/Plan Pneumonia - resolving -s/p cefepime -Vasquez cultures - neg Acute on chronic respiratory failure -steroids -She is tolerating NC. -COVID is negative - CHF with pulmonary edema and pleural effusions -Continue bumex -EF 35-40% -Pt is fully anticoagulated. I would not recommend thoracentesis at this time. CAD Aortic valve replacement MV stenosis Overall prognosis is guarded consider home hospice. Pt is ok for discharge from pulmonary standpoint. ANT LOPEZ DO Dec 17, 2019 07:15
[2019-12-17 08:00] VITALS: BP 107/58
[2019-12-17] MEDS: SACUBITRIL/VALSARTAN 24/26 MG (ENTRESTO) TABLET PO SCH (08:03)
[2019-12-17] MEDS: rOPINIRole 0.25 MG (REQUIP) TAB PO SCH (08:10)
[2019-12-17] MEDS: DIGOXIN 0.125 MG (LANOXIN) TAB PO SCH (08:10)
[2019-12-17] MEDS ORDERED: BUMETANIDE 1 MG/4 ML (BUMEX) VIAL IV SCH (09:00)
--- NOTE | 2019-12-17 09:15 | Physical Therapy Daily Note ---
PT Daily Note-Current Subjective Pt in recliner upon arrival. Agrees to therapy tx. Pain Numeric Pain Scale: 3 Location: Right, Medial Location Body Site: Ankle Pain Description: Ache Comment: Pt c/o pain upon finishing ambulation. RN notified. Mental Status Patient Orientation: Person, Place, Time, Situation Attachments: Oxygen (4L/min), Gomes Catheter, IV Transfers SCALE: Activities may be completed with or without assistive devices. 1-Bqoysbkqxy-dxbjzdh completes the activity by him/herself with no assistance from a helper. 5-Set-up or Clean-up Assistance-helper sets up or cleans up; patient completes activity. [place] assists only prior to or following the activity. 4-Supervision or Touching Assistance-helper provides verbal cues and/or touching/steadying and/or contact guard assistance as patient completes activity. Assistance may be provided throughout the activity or intermittently. 3-Partial/Moderate Assistance-helper does LESS THAN HALF the effort. [place] lifts, holds or supports trunk or limbs, but provides less than half the effort. 2-Substantial/Maximal Assistance-helper does MORE THAN HALF the effort. [place] lifts or holds trunk or limbs and provides more than half the effort. 8-Vaxhbvhzx-akuvgh does ALL the effort. Patient does none of the effort to complete the activity. Or, the assistance of 2 or more helpers is required for the patient to complete the activity. If activity was not attempted, code reason: 7-Patient Refused. 9-Not Applicable-not attempted and the patient did not perform the activity before the current illness, exacerbation or injury. 10-Not Attempted due to Environmental Limitations-(lack of equipment, weather restraints, etc.). 88-Not Attempted due to Medical Conditions or Safety Concerns. Sit to Stand (QC): 4 ([facility] and skilled VC's for handplacement during transfers) Weight Bearing Right Lower Extremity: Right Weight Bearing/Tolerated Left Lower Extremity: Left Weight Bearing/Tolerated Gait Training Does the Patient Walk?: Yes Distance: 20' x4 Walk 10 feet (QC): 4 Gait Persons Needed: 1 Gait Assistive Device: FWW Pt refuses to ambulate in hallway. Pt ambulates in room w/ TWISTER OPERATOR using FWW at [facility]; IV pole following and O2 remains connected to wall. RN brought in extended O2 tubing. Exercises Standing: Hamstring curls, Heel/toe raises, Marching Standing Reps: 15 Treatments Ambulation in pt room, Standing ex, skilled VC's for hand placement when transferring. Assessment Current Status: Fair Progress Pt in an positive mood. RN states pt demeanor and appearance has vastly improved since yesterday. PT Kiln Operator Helper Goals Intermediate Goals PT Intermediate Goals Time Frame: Dec 19, 2019 Roll Left & Right (QC): 6 Sit to Lying (QC): 6 Lying-Sitting on Side/Bed(QC): 6 Sit to Stand (QC): 6 Chair/Ifs-bl-Gdljp Xfer(QC): 6 Toilet Transfer (QC): 6 Car Transfer (QC): 5 Does the Patient Walk: Yes Walk 10 feet (QC): 6 Walk 50ft with 2 Turns (QC): 6 Walk 150 ft (QC): 6 Walking 10ft on Uneven Surface: 5 1 Step (curb) (QC): 4 4 Steps (QC): 4 12 Steps (QC): 9 Picking up an Object (QC): 9 Does the Pt use WC or Scooter?: No Type: N/A Type: N/A PT Plan Problem List Problem List: Activity Tolerance, Functional Strength, Safety, Gait, Transfer Treatment/Plan Treatment Plan: Continue Plan of Care Treatment Plan: Bed Mobility, Education, Functional Activity Rick, Functional Strength, Gait, Safety, Therapeutic Exercise, Transfers Treatment Duration: Dec 19, 2019 Frequency: 6 times per week Estimated Hrs Per Day: .25 hour per day Patient and/or Family Agrees t: Yes Safety Risks/Education Patient Education: Correct Positioning, Safety Issues Teaching Recipient: Patient Teaching Methods: Discussion Response to Teaching: Verbalize Understanding, Reinforcement Needed (Hand placement for transfers) Time/GCodes Time In: 841 Time Out: 905 Total Billed Treatment Time: 24 Total Billed Treatment 1 visit, EX x2 (24m) CLAIR TRIPLETT TWISTER OPERATOR Dec 17, 2019 09:15
--- NOTE | 2019-12-17 10:28 | Occupational Ther Daily Note ---
OT Current Status-Daily Note Subjective Pt seen in recliner chair sleeping. Pt wakes upon OT entry. Pt states she is quite fatigued and is hesitantly agreeable to OT tx session. Pt denies pain, states she was up/ walking with PT this a.m. Mental Status/Objective Attachments: IV, Oxygen ADL-Treatment Therapy Code Descriptions/Definitions Functional [place] Measure: 0=Not Assessed/NA 4=Minimal Assistance 1=Total Assistance 5=Supervision or Setup 2=Maximal Assistance 6=Modified [place] 3=Moderate Assistance 7=Complete IndependenceSCALE: Activities may be completed with or without assistive devices. 5-Gkmetmjhfe-tsbslzc completes the activity by him/herself with no assistance from a helper. 5-Set-up or Clean-up Assistance-helper sets up or cleans up; patient completes activity. [place] assists only prior to or following the activity. 4-Supervision or Touching Assistance-helper provides verbal cues and/or touching/steadying and/or contact guard assistance as patient completes activity. Assistance may be provided throughout the activity or intermittently. 3-Partial/Moderate Assistance-helper does LESS THAN HALF the effort. [place] lifts, holds or supports trunk or limbs, but provides less than half the effort. 2-Substantial/Maximal Assistance-helper does MORE THAN HALF the effort. [place] lifts or holds trunk or limbs and provides more than half the effort. 7-Nxawmqcvn-noljah does ALL the effort. Patient does none of the effort to complete the activity. Or, the assistance of 2 or more helpers is required for the patient to complete the activity. If activity was not attempted, code reason: 7-Patient Refused. 9-Not Applicable-not attempted and the patient did not perform the activity before the current illness, exacerbation or injury. 10-Not Attempted due to Environmental Limitations-(lack of equipment, weather restraints, etc.). 88-Not Attempted due to Medical Conditions or Safety Concerns. Shower/Bathe Self (QC): 7 Upper Body Dressing (QC): 7 Lower Body Dressing (QC): 7 Toileting Hygiene (QC): 7 Toilet Transfer (QC): 7 Other Treatment Pt denies ADLs this morning due to fatigue. Pt hesitantly agreeable to UE theraband exercises. Pt states she is tired. Pt states she utilizes therabands at home, pt demonstrates 2 exercises she completes at home (shoulder scaption with elbow extension and back flies, completing 5 reps bilaterally). Pt educated on 3 additional exercises: shoulder external rotation, biceps, and scaption exercises. Pt return demonstrates, completing 5 reps of each exercise. Pt requires cues for positioning for 2/3 exercises. Pt agrees to complete at least 5 reps bilaterally of 3 exercises later today. Pt receives phone call and takes, pt denies needs and waves "bye" to therapy. Call light in reach. Education OT Patient Education: Exercise program, Home exercise program, Purpose of tx/functional activities Teaching Recipient: Patient Teaching Methods: Demonstration, Discussion Response to Teaching: Verbalize Understanding, Return Demonstration, Reinforcement Needed OT Half-Way Goals Automatic Machine Attendant Goals Time Frame: Dec 26, 2019 Eating (QC): 6 Oral Hygiene (QC): 6 Toileting Hygiene (QC): 5 Upper Body Dressing (QC): 5 Lower Body Dressing (QC): 5 On/Off Footwear (QC): 5 Additional Goals: 1-Demonstrate ADL Tasks, 2-Verbalize Understanding, 3- ImproveStrength/Rick 1=Demonstrate adherence to instructed precautions during ADL tasks. 2=Patient will verbalize/demonstrate understanding of assistive devices /modifications for ADL. 3=Patient will improve strength/tolerance for activity to enable patient to perform ADL's. OT Education/Plan Problem List/Assessment Assessment: Decreased Activ Tolerance, Impaired I ADL's, Impaired Self-Care Skills Pt to benefit from skilled OT while hospitalized to maximize level of function and allow safe discharge plan. Discharge Recommendations Plan/Recommendations: Continue POC Treatment Plan/Plan of Care Patient would benefit from OT for education, treatment and training to promote independence in ADL's, mobility, safety and/or upper extremity function for ADL's. Plan of Care: ADL Retraining, Functional Mobility, UE Funct Exercise/Act Treatment Duration: Dec 26, 2019 Frequency: 5 times per week Estimated Hrs Per Day: .25 hour per day Agreement: Yes Rehab Potential: Fair Time/GCodes Start Time: 10:10 Stop Time: 10:18 Total Time Billed (hr/min): 8 Billed Treatment Time 1, EX (8) ANEL BARKSDALE OTR Dec 17, 2019 10:28
--- NOTE | 2019-12-17 11:54 | Progress Note - Cardiology ---
Cardiology SOAP Progress Note Subjective: No cp or palp or syncope Shortness of breath better No focal weakness Gen weakness and malaise persistent Objective: I&O/Vital Signs 12/17/19 12/17/19 12/17/19 12/17/19 00:26 01:00 01:42 04:06 Temp 37.0 36.7 Pulse 85 85 89 Resp 18 20 B/P (MAP) 104/53 (70) 105/47 (66) Pulse Ox 97 94 95 O2 Delivery High Flow N/C High Flow N/C High Flow N/C O2 Flow Rate 6.00 6.00 6.00 12/17/19 12/17/19 12/17/19 12/17/19 06:24 07:00 08:00 08:56 Temp 36.5 Pulse 87 90 Resp 18 B/P (MAP) 107/58 (74) Pulse Ox 98 94 O2 Delivery High Flow N/C High Flow N/C High Flow N/C O2 Flow Rate 6.00 4.00 4.00 12/17/19 10:45 Pulse Ox 98 O2 Delivery High Flow N/C O2 Flow Rate 4.00 12/17/19 00:00 Intake Total 1965 ml Output Total 425 ml Balance 1540 ml Weight (Pounds): 138 Weight (Ounces): 6.0 Weight (Calculated Kilograms): [id number] Constitutional: appears stated age, AAO x 3, other Respiratory: No accessory muscle use, No respiratory distress; chest expansion is symmetric, chest is bilaterally symmetric, other (diminished lower lobes bilat; dyspneic with converstation) Cardiovascular: regular rate-rhythm; No JVD; S1 and S2, systolic murmur (grade 4/5 ), click (crisp mechanical S2) Gastrointestional: No tender; soft, round, audible bowel sounds Extremities: other (mild bilat LE swelling), wound (dressing in place to RLE, D&I - not removed; fragile integrity) Neurologic/Psychiatric: grossly intact (moves all extremities) Skin: normal color, warm/dry, other (see above under extremities) Results/Procedures: Labs Laboratory Tests 12/17/19 05:25: White Blood Count 5.5, Red Blood Count 3.08L, Hemoglobin 9.6L, Hematocrit 32L, Mean Corpuscular Volume 105H, Mean Corpuscular Hemoglobin 31, Mean Corpuscular Hemoglobin Concent 30L, Red Cell Distribution Width 14.3, Platelet Count 165, Mean Platelet Volume 10.4, Prothrombin Time 25.0H, INR Comment 2.2H, Sodium Level 134L, Potassium Level 5.2H, Chloride Level 98, Carbon Dioxide Level 23, Anion Gap 13, Blood Urea Nitrogen 108*H, Creatinine 1.88H, Estimat Glomerular Filtration Rate 26, BUN/Creatinine Ratio 57, Glucose Level 156H, Calcium Level 8.3L Microbiology 12/10/19 Influenza Types A,B Antigen (IRINEO) - Final, Complete 12/10/19 Blood Culture - Preliminary, Resulted No growth 12/10/19 Urine Culture - Final, Complete NO GROWTH Laboratory Tests 12/16/19 05:10 12/16/19 08:34 12/17/19 05:25 A/P: Assessment: Multi-factorial dyspnea (see below) Acute on chronic systolic CHF Pneumonia - management per Medical Services Advanced valvular heart disease (aortic and mitral): Severe mitral valve stenosis rheumatic valve, severe mitral regurgitation with severe pulmonary hypertension, PASP 65-70 mmHg with biatrial and RV enlargement and dilated IVC. Dr. Parker has discussed with Dr. Page, he recommended medical therapy at this time considering her to be high risk for morbidity and mortality if she undergoes valve surgery. She is not a candidate for mitral clip secondary to her mitral stenosis Was referred once again to Dr. Davila in January 2019 for evaluation for possible TMVR. Decided to continue with conservative management at this time. 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 Prabhakar as an out pt Echo of Aug 2019: EF 35-40%, reduced RV systolic function. Ventricular septum contour shows diastolic flattening and systolic flattening, LA dilated measuring 8.3cm, RA dilated. MV has calcified annulus and severe stenosis, mod to severe MR, mechanical prosthetic AV present, severe TR, PA 65-70mmHg Permanent atrial fibrillation. [id number] Score of 6, maintained on Coumadin, managed as outpt by Dr. Prabhakar Peripheral vascular disease: patient has venous insufficiency on the right side that required ablation; peripheral angiogram May 2017, intervention to the anterior tibial artery, the wound has healed then developed a new ulcer after a trauma. Did balloon angioplasty to the right anterior tibial artery proximal portion has significant improvement the distal portion is occluded and did not improve, the posterior tibial artery and peroneal arteries were occluded with no collaterals in that area. The right SFA has multiple segment of moderate to severe stenosis, balloon angioplasty to the mid SFA with good results. Abdominal aorta has moderate disease, the left SFA has mild to moderate disease down to the trifurcation. Patient has nonhealing wounds to right ankle, underwent peripheral angiogram with Dr. Arias on July 08, 2019 with right SFA and anterior tibial artery angioplasty with good results. Patient reports one to anterior iraheta is healing, however continues to have worsening of the right ankle one, appear venous in nature, managed by Dr Waters (wound) and Dr Parker (PAD) H/O implantation of INFERTILITY NURSE-D-D in August 2012, last interrogation was done on November 25, 2019 showing device has reached CHERRY - plan for pulse generator change- out is as per Dr. Parker Card cath of Sep 2014: Coronary artery disease, small vessel disease, nonobstructive disease, the prosthetic valve was functioning normally, pulmonary artery pressure was 50/26, pulmonary capillary wedge pressure 35, right ventricu lar pressure 53/17. Stress test done in December 2016 showing no ischemia or infa rction, EF 41 percent, continue to monitor Carotid stenosis, continue to monitor, followed by [facility]. Abdominal aortic aneurysm (reportedly, 4.6 cm shanita) and PAD and carotid art di sease monitor by [facility] CKD-4 H/o hypertension Anemia of undetermined etiology - management per Medical Services Hyperlipidemia Right hip fracture in May 2018 status post surgical repair, recovered well Pt and family have decided upon Hospice Plan: * Complex management due to multiple CV comorbidities * Poor oil heaterman prognosis. She and family have decided upon Hospice. I have had long and detailed discussions with her daughter on the phone twice on 12/16/19. I also called Dr Parker, her regular title investigator, on 12/16/19 and discussed the case with him. He recommends that, given that she is on Hospice, device replacement is not to be undertaken. I agree. I discussed this with the pt and her daughter. They agree * Warfarin dose was increased from 2 to 2.5 mg daily yesterday. We recommend monitoring INR KIKE VILLAGRAN MD FACP FACC CCDS Dec 17, 2019 11:54
[2019-12-17 12:00] VITALS: BP 91/47
--- NOTE | 2019-12-17 12:05 | NUR ---
PALLIATIVE CARE RN spoke with Dr. Man and he reports plan for discharge for today. Spoke with Lisa, patient's daughter and she confirmed this and also verbalized choice of hospice to be [facility]. I have sent clinical information to [facility] and let them know of the referral and discharge for today. Will send orders once they are available. Will continue to offer support and assist where needed. Lisa will transport and thinks that her portable O2 and clothes are here for patient's use. Will confirm.
[2019-12-17] MEDS ORDERED: MORP100S3 PO (12:36)
[2019-12-17] MEDS ORDERED: LORA2ORA PO (12:36)
--- NOTE | 2019-12-17 14:01 | Discharge Summary ---
Discharge Summary Hospital Course Was the Problem List Reviewed?: Yes Problems/Dx: (1) Acute on chronic respiratory failure with hypoxemia Status: Acute (2) Pleural effusion Status: Acute (3) Acute exacerbation of congestive heart failure Status: Acute Qualifiers: Qualified Codes: I50.23 - Acute on chronic systolic (congestive) heart failure (4) CKD (chronic kidney disease) Status: Chronic (5) Poor prognosis Status: Acute (6) Advanced age Status: Chronic (7) Mechanical heart valve present Status: Chronic (8) Anticoagulated on Coumadin Status: Chronic (9) Acute kidney injury superimposed on chronic kidney disease Status: Acute Hospital Course Date of Admission: Dec 10, 2019 at 22:45 Admission Diagnosis : Acute on chronic respiratory failure with hypoxia Family Physician/Provider: Jake Prabhakar DO Date of Discharge: 12/17/19 Discharge Diagnosis: Acute on chronic respiratory failure with hypoxia due to acute on chronic heart failure with reduced ejection fraction Hospital Course: Anisha Mcfarland is an 84-year-old female with multiple comorbidities presented with shortness of breath was admitted with acute on chronic hypoxic respiratory failure due to acute on chronic heart failure with reduced ejection fraction. She had a new pleural effusion as well. He was treated with diuretics and her respiratory status improved. Her kidney function declined though. With her tenuous status with multiple medical comorbidities including heart failure and COPD, as well as declining kidney function, the decision was made with Anisha and her family, including daughter Muna, to discharge home on hospice. She was discharged home on hospice in poor condition with [facility]. Labs and Pending Lab Test: Laboratory Tests 12/17/19 05:25: White Blood Count 5.5, Red Blood Count 3.08L, Hemoglobin 9.6L, Hematocrit 32L, Mean Corpuscular Volume 105H, Mean Corpuscular Hemoglobin 31, Mean Corpuscular Hemoglobin Concent 30L, Red Cell Distribution Width 14.3, Platelet Count 165, Mean Platelet Volume 10.4, Prothrombin Time 25.0H, INR Comment 2.2H, Sodium Level 134L, Potassium Level 5.2H, Chloride Level 98, Carbon Dioxide Level 23, Anion Gap 13, Blood Urea Nitrogen 108*H, Creatinine 1.88H, Estimat Glomerular Filtration Rate 26, BUN/Creatinine Ratio 57, Glucose Level 156H, Calcium Level 8 .3L Microbiology 12/10/19 Influenza Types A,B Antigen (IRINEO) - Final, Complete 12/10/19 Blood Culture - Preliminary, Resulted No growth 12/10/19 Urine Culture - Final, Complete NO GROWTH Home Meds Active Lorazepam Intensol (Lorazepam) 2 Mg/1 Ml Oral.conc 2 Mg PO Q2H PRN Morphine Conc. 20mg/ml (Morphine Sulfate) 100 Mg/5 Ml Solution 10 Mg PO Q2H PRN 7 Days Reported Ropinirole HCl 0.5 Mg Tablet 1 Mg PO HS TAKES 2 (0.5MG) TABS TO EQUAL 1MG AT BEDTIME (ALSO TAKE 0.5MG DAILY) Mucinex (Guaifenesin) 600 Mg Tab.er.12h 600 Mg PO Q12H PRN Albuterol Sulfate 2.5 Mg/3 Ml Vial.neb 3 Ml NEB Q6H PRN Digoxin 125 Mcg Tablet 125 Mcg PO Q48H Furosemide 40 Mg Tablet 40 Mg PO DAILY PRN TAKES TWICE DAILY- MAY TAKE 1 EXTRA TAB IF NEEDED FOR SWELLING Metolazone 2.5 Mg Tablet 2.5 Mg PO MON,FRI TAKES ON MON AND FRI AND NEEDED AND DIRECTED Potassium Chloride 10 Meq Capsule.er 10 Meq PO BID Ropinirole HCl 0.5 Mg Tablet 0.5 Mg PO DAILY Warfarin Sodium 2 Mg Tablet 4 Mg PO DAILY 3 Days STARTING 12-08-2019 HAD THE PT TAKE 2 (2MG) TABLETS TO EQUAL 4MG DAILY FOR 3 DAYS AND THEN PT WAS GETTING INR RECHECKED. Entresto 24 mg-26 mg Tablet (Sacubitril/Valsartan) 1 Each Tablet 1 Tab PO BID Metoprolol Succinate 25 Mg Tab.er.24h 25 Mg PO DAILY PRN GIVE IF BLOOD PRESSURE IS OVER 100 Metolazone 2.5 Mg Tablet 2.5 Mg PO PRN TAKES ON MON AND FRI AND NEEDED AND DIRECTED Mexiletine HCl 150 Mg Cap 150 Mg PO Q12H Isosorbide Mononitrate ER (Isosorbide Mononitrate) 30 Mg Tab.er.24h 15 Mg PO DAILY TAKES 1/2 (30MG) TABLET Furosemide 40 Mg Tablet 40 Mg PO BID Levothyroxine Sodium 100 Mcg Tablet 100 Mcg PO DAILY Nitrostat (Nitroglycerin) 0.4 Mg Tab.subl 0.4 Mg SL UD PRN Assessment/Pt Instructions Patient discharged to home on hospice. [facility] will be managing her care at home. Discharge Planning: >30 minutes discharge planning Discharge Instructions Discharge Diet: No Restrictions Activity as Tolerated: Yes Discharge Physical Examination Vital Signs Vital Signs Date Time Temp Pulse Resp B/P (MAP) Pulse Ox O2 Delivery O2 Flow Rate FiO2 12/17/19 12:50 85 12/17/19 12:00 36.5 18 91/47 (62) 96 High Flow N/C 4.00 12/15/19 10:27 45 General Appearance: Chronically ill, Thin Respiratory: No Respiratory Distress, Crackles, Decreased Breath Sounds Cardiovascular: Regular Rate, Rhythm, No Edema, Other (Mechanical heart sounds) Gastrointestinal: Normal Bowel Sounds, Non Tender, Soft Extremity: Normal Inspection, Non Tender, No Pedal Edema Skin: Normal Color, Warm/Dry Neurologic/Psychiatric: Alert, Depressed Affect, Other (Fatigued) Allergies: Coded Allergies: NKANo Known Allergies (Verified Allergy, Unknown, 11/14/05) Copy Copies To 1: ADAMA LITTLE MD Discharge Summary Date of Admission Dec 10, 2019 at 22:45 Date of Discharge Discharge Date: Dec 17, 2019 Discharge Time: 13:59 Admission Diagnosis Sepsis from Pneumonia Discharge Diagnosis Acute on Chronic Respiratory Failure, acute on chronic heart failure with reduced ejection fraction, Acute kidney injury superimposed on chronic kidney disease (1) Acute on chronic respiratory failure with hypoxemia Status: Acute (2) Pleural effusion Status: Acute (3) Acute exacerbation of congestive heart failure Status: Acute Qualifiers: Qualified Codes: I50.23 - Acute on chronic systolic (congestive) heart failure (4) CKD (chronic kidney disease) Status: Chronic (5) Poor prognosis Status: Acute (6) Advanced age Status: Chronic (7) Mechanical heart valve present Status: Chronic (8) Anticoagulated on Coumadin Status: Chronic (9) Acute kidney injury superimposed on chronic kidney disease Status: Acute Clinical Quality Measures DVT/VTE Risk/Contraindication: Risk Factor Score Per Nursin RFS Level Per Nursing on Admit: 4+=Very High KATHERINE BRADFORD MD Dec 17, 2019 13:59
[2019-12-17 15:22] VITALS: BP 91/47
== END 2019-12-17 15:29 | disposition hospice, home (50) | DRG 871 ==
LOC: EDUNIT# 21:10 → ER 21:11 → 4TH 22:45
PROVIDERS: ADMIT Internal Medicine; ATTEND Internal Medicine
DX: A41.9 Sepsis, unspecified organism (principal); R65.20 Severe sepsis without septic shock; J18.9 Pneumonia, unspecified organism; J96.21 Acute and chronic respiratory failure with hypoxia; I42.0 Dilated cardiomyopathy; I13.0 Hypertensive heart and chronic kidney disease with heart failure and stage 1 through stage 4 chronic kidney disease, or unspecified chronic kidney disease; I50.23 Acute on chronic systolic (congestive) heart failure; N18.4 Chronic kidney disease, stage 4 (severe); N17.9 Acute kidney failure, unspecified; I48.21 Permanent atrial fibrillation; R64 Cachexia; J44.0 Chronic obstructive pulmonary disease with (acute) lower respiratory infection; J90 Pleural effusion, not elsewhere classified; I25.10 Atherosclerotic heart disease of native coronary artery without angina pectoris; I05.0 Rheumatic mitral stenosis; I27.20 Pulmonary hypertension, unspecified; E03.9 Hypothyroidism, unspecified; I70.201 Unspecified atherosclerosis of native arteries of extremities, right leg; I70.0 Atherosclerosis of aorta; I71.4 Abdominal aortic aneurysm, without rupture; I87.2 Venous insufficiency (chronic) (peripheral); E78.5 Hyperlipidemia, unspecified; I95.9 Hypotension, unspecified; I65.29 Occlusion and stenosis of unspecified carotid artery; G25.81 Restless legs syndrome; M19.91 Primary osteoarthritis, unspecified site; D64.9 Anemia, unspecified; Z99.81 Dependence on supplemental oxygen; Z95.810 Presence of automatic (implantable) cardiac defibrillator; Z79.01 Long term (current) use of anticoagulants
CPT/HCPCS: 36415; 71045; 80048; 80053; 80162; 81000; 82805; 83605; 83735; 83874; 83880; 84132; 84145; 84439; 84443; 84484; 85007; 85025; 85027; 85610; 85730; 86141; 87040; 87088; 87430; 87635; 87804; 93005; 93041; 94640; 94760; 96361; 96365; 96367